=== PATIENT | male | born 1945 | race Caucasian/White ===

== ENCOUNTER 2020-08-19 08:47 | Day surgery (SDC) | payer BC, SELFPAY ==
[2020-08-13 14:59] VITALS: BMI 33.7
--- NOTE | 2020-08-16 09:30 | HO.ANESPROP2 ---
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 PMFSH Past Medical History Medical History Diabetes Diabetic retinopathy Partial nontraumatic amputation of right foot Peripheral neuropathy Pulmonary sarcoidosis PVD (peripheral vascular disease) Renal stones Skin cancer Spherocytosis Spinal stenosis Surgical History Surgical History H/O right hemicolectomy History of surgical removal of pilonidal cyst History of tonsillectomy and adenoidectomy Hx of cholecystectomy Hx of colonoscopy Hx of splenectomy Status post laser lithotripsy of ureteral calculus Social History Social History Are you a primary career information specialist to a significant other at home: No Do you presently have visiting nurse or other home services: No Smoking Status: Never smoker Second Hand Smoke Exposure: No Use of substances other than those prescribed or required for medical reasons: No Advance Directives: No Advance Directives Information Provided: No Advance Directives on File: No Recently lost weight without trying: No Meds Allergies Allergy/AdvReac Type Severity Reaction Status Date / Time penicillamine Allergy Unknown unknown Verified 08/02/20 13:52 Home Medications Medication Instructions Recorded Confirmed Type multivitamin 1 tab PO DAILY 08/02/20 08/13/20 History vitamin B complex 1 tab PO DAILY 08/02/20 08/13/20 History cholecalciferol (vitamin D3) 50 mcg PO DAILY 08/13/20 08/13/20 History [Vitamin D3] insulin NPH isoph U-100 human 25 unit SUBCUT BID 08/13/20 08/13/20 History [Humulin N NPH U-100 Insulin] lidocaine 1 patch TOPICAL DAILY 08/13/20 08/13/20 History magnesium 250 mg PO DAILY 08/13/20 08/13/20 History vitamin A 10,000 unit PO DAILY 08/13/20 08/13/20 History zinc 50 mg PO DAILY 08/13/20 08/13/20 History Exam Exam Date and Time: August 16, 2020 0930 Height,Weight and Vital Signs: Height 5 ft 11 in Weight 109.769 kg Pertinent Lab Results Pertinent Lab Results: Laboratory Tests 03/21/20 03/21/20 11:41 11:41 WBC 11.4 H Hgb 14.3 Hct 41.2 L Plt Count 541 H Sodium 138 Potassium 4.6 Chloride 102 BUN 36 H D Creatinine 1.47 H Narrative Narrative: Carotid US 2018: No hemodynamically significant Carotid Stenosis bilat (0-49%) Assessment and Plan Assessment Anesthesia Assessment: Chart Reviewed Documented by User: Antonio Arcos 08/19/20 09:35 [facility] Past Medical History Medical History Diabetes Diabetic retinopathy Partial nontraumatic amputation of right foot Peripheral neuropathy Pulmonary sarcoidosis PVD (peripheral vascular disease) Renal stones Skin cancer Spherocytosis Spinal stenosis Surgical History Surgical History H/O right hemicolectomy History of surgical removal of pilonidal cyst History of tonsillectomy and adenoidectomy Hx of cholecystectomy Hx of colonoscopy Hx of splenectomy Status post laser lithotripsy of ureteral calculus Social History Social History Are you a primary career information specialist to a significant other at home: No Do you presently have visiting nurse or other home services: No Smoking Status: Never smoker Second Hand Smoke Exposure: No Use of substances other than those prescribed or required for medical reasons: No Advance Directives: No Advance Directives Information Provided: No Advance Directives on File: No Recently lost weight without trying: No Meds Allergies Allergy/AdvReac Type Severity Reaction Status Date / Time penicillamine Allergy Unknown unknown Verified 08/02/20 13:52 Home Medications Medication Instructions Recorded Confirmed Type multivitamin 1 tab PO DAILY 08/02/20 08/13/20 History vitamin B complex 1 tab PO DAILY 08/02/20 08/13/20 History cholecalciferol (vitamin D3) 50 mcg PO DAILY 08/13/20 08/13/20 History [Vitamin D3] insulin NPH isoph U-100 human 25 unit SUBCUT BID 08/13/20 08/13/20 History [Humulin N NPH U-100 Insulin] lidocaine 1 patch TOPICAL DAILY 08/13/20 08/13/20 History magnesium 250 mg PO DAILY 08/13/20 08/13/20 History vitamin A 10,000 unit PO DAILY 08/13/20 08/13/20 History zinc 50 mg PO DAILY 08/13/20 08/13/20 History Exam Airway Mallampati Class: II TM Dist: >3cm Neck ROM: Full Loose/Missing/Broken Teeth: No Heart: [id number] Lungs: cta b/l Assessment and Plan Assessment Anesthesia Assessment: Anesthesia Plan Discussed, Smoking Cess. Discussed and PAT Visit Final Anesthetic Review NPO: Yes ASA Class: III Final Preanesthetic Review: No Changes in Pt Med Stat, Meds/Allgs Chart Reviewed, Consent Obtained/Reviewed and Anes Risks/Benef Reviewed Patient Risk: Intermediate Procedure Risk: Low Assessment/Block/Sedation in SS: Assess/Block/Sedation-SS Anesthetic Plan Anesthetic Plan: MAC: Disposition: Standard PACU
[2020-08-19 09:32] VITALS: BP 112/58; PULSE 84; RESP 18; TEMP 36.6; O2SAT 99
[2020-08-19 09:33] LABS: Glucose, Whole Blood 148 mg/dL (60-115)
[2020-08-19 10:35] VITALS: BP 95/57; PULSE 84; RESP 14; TEMP 36.5; O2SAT 97
--- NOTE | 2020-08-19 10:41 | PM.OP ---
Brief Operative Note Date of procedure: 08/19/20 Pre-op diagnosis: Screening Post-op diagnosis: other (Diverticulosis, Normal anastomosis, Internal hemorrhoids, Limited prep in Left colon) Procedure: Colonoscopy to anastomosis and small bowel Surgeon: Ernesto Wu Anesthesia: MAC Estimated blood loss (mL): 0 Pathology: none sent Condition: stable Disposition: PACU
[2020-08-19 10:52] VITALS: BP 110/62; PULSE 93; RESP 16; O2SAT 97
--- NOTE | 2020-08-19 10:57 | OP_ITS ---
SURGEON: Ernesto Wu MD INDICATIONS: The patient presents for followup of personal history of colon cancer. Full consent has been obtained from him for this, including risks of bleeding and perforation. PREOPERATIVE DIAGNOSIS: POSTOPERATIVE DIAGNOSIS: PROCEDURE PERFORMED: Colonoscopy to the anastomosis and small bowel. ESTIMATED BLOOD LOSS: COMPLICATIONS: ANESTHESIA: Monitored anesthesia care. ASSISTANTS: SPECIMENS: PREOPERATIVE DIAGNOSES: Personal history of colon cancer, personal history of tubular adenoma of the colon, and colorectal cancer screening. POSTOPERATIVE DIAGNOSES: Personal history of colon cancer, personal history of tubular adenoma of the colon, and colorectal cancer screening, sigmoid diverticulosis, internal hemorrhoids. DESCRIPTION OF PROCEDURE: The patient was placed in the left lateral decubitus position. The digital rectal exam revealed no abnormalities. The Olympus video pediatric colonoscope was entered into the rectum and advanced easily to the level of the anastomosis. The anastomosis was visualized and appeared normal. The small bowel was cannulated and appeared normal. The scope was withdrawn back in the colon. The entire area of the anastomosis was well visualized and appeared normal. The scope was then slowly withdrawn assessing all mucosal surfaces. The preparation of the area of the sigmoid colon and rectum was quite limited due to a lot of liquid and some solid stool. More proximal bowel to the level of the anastomosis had a good prep. I did not visualize any polyps, colitis, nor angiodysplasias. There was a mild amount of sigmoid diverticulosis. In the rectum, scope was retroflexed visualizing internal hemorrhoids, but no other pathology, although again, the prep was somewhat limited. The scope was straightened out and withdrawn from the patient. He tolerated the procedure well and was returned to the recovery area in stable condition. IMPRESSION: 1. Sigmoid diverticulosis. 2. Internal hemorrhoids. 3. Somewhat limited prep involving the sigmoid colon and rectum. PLAN: The patient is to have an another colonoscopy within 1 year. At that point, I would recommend a 2-day preparation. In reviewing this colonoscopy report from a year ago, he also had a limited prep in the same portion of the colon. He will otherwise see me in the interim on a p.r.n. basis. MD UDAY Marquez/NICKI / [id number]
[2020-08-19 11:04] VITALS: BP 117/61; PULSE 84; RESP 16; O2SAT 97
--- NOTE | 2020-08-19 11:41 | HO.POSTANES ---
Post Anesthesia Evaluation Post Anesthesia Evaluation Vital Signs: Vital Signs Temp Pulse Resp BP Pulse Ox 08/19/20 11:04 97.7 F 84 16 117/61 97 08/19/20 10:52 93 16 110/62 97 08/19/20 10:35 97.7 F 84 14 95/57 L 97 08/19/20 09:32 97.9 F 84 18 112/58 L 99 Anesthesia: Monitored Mental Status: Awake Pain Control: Satisfactory Nausea/Vomiting: None Hydration: Adequate Anesthesia-Related Issues: No Anes. Related Issues
== END 2020-08-19 11:49 | disposition home or self-care (01) ==
PROVIDERS: PCP Internal Medicine; Visit Provider Internal Medicine
PROC: 0DJD8ZZ Inspection of Lower Intestinal Tract, Via Natural or Artificial Opening Endoscopic (ICD-10-PCS; CPT 45378; principal; 2020-08-19 09:30)
DX: Z12.11 Encounter for screening for malignant neoplasm of colon (principal); Z85.038 Personal history of other malignant neoplasm of large intestine; Z90.49 Acquired absence of other specified parts of digestive tract; Z86.010 Personal history of colon polyps; K57.30 Diverticulosis of large intestine without perforation or abscess without bleeding; K64.8 Other hemorrhoids; E11.319 Type 2 diabetes mellitus with unspecified diabetic retinopathy without macular edema; Z79.4 Long term (current) use of insulin; Z79.899 Other long term (current) drug therapy; Z89.431 Acquired absence of right foot; Z87.39 Personal history of other diseases of the musculoskeletal system and connective tissue; Z90.81 Acquired absence of spleen
CPT/HCPCS: 45378; 82947

== ENCOUNTER 2020-08-21 19:52 | Emergency (ER) | payer BC, SELFPAY ==
[2020-08-21 20:04] VITALS: BP 146/66; PULSE 80; RESP 16; TEMP 36.9; O2SAT 100; BMI 34.0
--- NOTE | 2020-08-21 20:58 | ECG_ITS ---
Test Reason : CHEST PAIN Blood Pressure : / mmHG Vent. Rate : 084 BPM Atrial Rate : 084 BPM P-R Int : 170 ms QRS Dur : 088 ms QT Int : 374 ms P-R-T Axes : 011 -31 022 degrees QTc Int : 441 ms Normal sinus rhythm with sinus arrhythmia Left axis deviation Abnormal ECG No significant changes seen Referred By: Michelle Oviedo Electronically Signed By:IRIS BARRAGAN MD
--- NOTE | 2020-08-21 22:00 | PC.NURSE ---
IV ACCESS ESTABLISHED BY [facility]. 20G IN LEFT HAND.
--- NOTE | 2020-08-21 22:05 | XR_ITS ---
EXAMINATION: XR CHEST CLINICAL INFORMATION: Chest pain COMPARISON: Chest x-ray 10/25/2015 TECHNIQUE: Frontal view of the chest was obtained. 10:24 PM FINDINGS: No significant abnormality is noted involving the heart, lungs, mediastinum, bony thorax or soft tissues. XR/XR chest 1V IMPRESSION: Unremarkable examination.
[2020-08-21 22:15] VITALS: BP 118/63; PULSE 76; RESP 16; O2SAT 99
[2020-08-21 22:18] LABS: Hematocrit 38.3 % (42-52); Hemoglobin 13.7 g/dl (14.0-18.0); Mean Corpuscular HGB Conc 35.8 g/dl (31.0-36.0); Mean Corpuscular Hemoglobin 31.1 pg (27.0-33.0); Mean Corpuscular Volume 86.8 fL (80-98); Mean Platelet Volume 10.2 fL (9.4-12.4); Platelet Count 391 X10*3/uL (160-400); Red Blood Count 4.41 X10*6/uL (4.60-5.80); Red Cell Distribution Width 12.6 % (11.0-16.0)
[2020-08-21 22:19] LABS: WBC ABN SCTR FOR CBC 1
--- NOTE | 2020-08-21 22:38 | CT_ITS ---
EXAMINATION: CT CHEST WITHOUT CONTRAST CLINICAL INFORMATION: Sarcoidosis. Concern for fracture after a fall COMPARISON: CT chest 03/21/2020. Chest x-ray today TECHNIQUE: Multidetector volumetric CT imaging of the chest was done. Axial MIP volume rendering provided. Sagittal and coronal reformatted images were obtained. This CT examination was performed using dose optimization techniques as appropriate, variously including the following: *Automated exposure control *Adjustment of mA and/or kV according to patient size (this includes techniques or standardized protocols for targeted exams where dose is matched to indication/reason for exam; i.e. extremities or head) *Use of iterative reconstruction technique DLP: 304 mGy-cm FINDINGS: LUNGS: Linear parenchymal scarring/atelectasis at lung bases. No acute airspace opacities. No bronchiectasis. The central bronchial airways are open. Lung nodules: 1. Stable 4 mm subpleural lung right middle lobe axial image 343 series 6. No new lung nodules. MEDIASTINUM: No mediastinal mass or significant lymphadenopathy. There are small subcentimeter lymph nodes in the pretracheal retrovascular space and subcarina. The heart size is normal. No pericardial effusion. Large volume of coronary artery calcifications. No aneurysm of aorta. Small volume of calcifications of thoracic aorta. PLEURA: There is no pleural effusion. No pleural mass or thickening. AXILLA: No lymphadenopathy. UPPER ABDOMEN: Status post splenectomy. Surgical clips left upper quadrant of abdomen. Status post cholecystectomy. 3 mm nonobstructive stone upper pole left kidney. OSSEOUS STRUCTURES: No rib fracture. No acute osseous abnormality. Stable mild loss of height of the T11 and T12 vertebrae is unchanged since prior study. CT/CT chest wo con IMPRESSION: 1. No acute abnormality of chest. No rib fracture or other acute osseous abnormality. 2. Linear scarring/atelectasis at lung bases. 3. No significant lymphadenopathy in the mediastinum.
[2020-08-21 22:48] LABS: Acanthocytes 2+; Band Neutrophils Percent 2 % (3-5); Basophils Percent Manual 2 % (0-1); Eosinophils Percent Manual 3 % (0-4); Lymphocytes Percent Manual 33 % (20-40); Monocytes Percent Manual 17 % (2-11); Neutrophils Percent Manual 43 % (45-73)
[2020-08-21 22:49] LABS: Basophils Abs Manual 0.2 X10*3/uL (0.0-0.3); Eosinophils Absolute Manual 0.3 X10*3/UL (0.0-0.8); Lymphocytes Absolute Manual 3.5 X10*3/uL (0.6-4.8); Monocytes Absolute Manual 1.8 X10*3/uL (0.0-1.2); Neutrophils Absolute Manual 4.8 X10*3/uL (2.2-7.9); Platelet Estimate NORMAL (NORMAL); Platelet Morphology Comment NORMAL; RBC Morphology NORMAL; White Blood Count 10.6 X10*3/uL (4.8-10.8)
[2020-08-21 23:07] LABS: Anion Gap 18 (12-20); Blood Urea Nitrogen 23 mg/dL (9-16); Carbon Dioxide 22 mmol/L (22-29); Chloride 104 mmol/L (96-108); Creatinine Clr Calc Pharmacy 47.1; Estimated Glomerular Filt Rate 39; Glucose Random 72 mg/dL (60-115); Magnesium 2.3 mg/dL (1.6-2.6); Potassium 4.5 mmol/l (3.3-5.1); Sodium 139 mmol/L (135-145)
[2020-08-21 23:08] LABS: Troponin-I High Sensitivity 9.4 ng/L (<3.5-35.0)
--- NOTE | 2020-08-21 23:29 | ED.CHESTPAIN ---
HPI - Chest Pain General Chief Complaint: Chest Pain Stated Complaint: chest pain Time Seen by Provider: 08/21/20 22:38 Source: patient Mode of arrival: ambulatory Limitations: no limitations History of Present Illness HPI narrative: 75-year-old male presents with past medical history of sarcoidosis, renal colic, peripheral vascular disease, spherocytosis, diabetes, diabetic neuropathy, and retinopathy with status post cholecystectomy and splenectomy presents with a constant chest pressure that started at 4:00 a.m. this morning. This pressure is substernal and more on the left-hand side and has not alleviated throughout the day. He does report falling a few days ago after losing his balance and heading the left side of his chest and back on a hard object. He does not report losing consciousness or hitting his head, he does not report any sharp stabbing pain, palpitations, shortness breath, abdominal pain, abdominal distention, dysuria, hematuria, changes in vision and edema. MD complaint: chest pain and chest discomfort Onset (ago): hour(s) ( Onset at 4:00 a.m.) Timing of current episode: constant Prior episodes: No Onset: during rest and awoke with symptoms Pain location: substernal and left chest Pain radiation: none Severity: moderate Pain scale (0-10): 4 Quality: aching Relieving factors: nothing Context: trauma/injury Treatment prior to arrival: none Risk Factors Coronary artery disease risk factors: diabetes Thoracic aortic dissection risk factors: none Related Data Home Medications Medication Instructions Recorded Confirmed multivitamin 1 tab PO DAILY 08/02/20 08/13/20 vitamin B complex 1 tab PO DAILY 08/02/20 08/13/20 cholecalciferol (vitamin D3) 50 mcg PO DAILY 08/13/20 08/13/20 [Vitamin D3] insulin NPH isoph U-100 human 25 unit SUBCUT BID 08/13/20 08/13/20 [Humulin N NPH U-100 Insulin] lidocaine 1 patch TOPICAL DAILY 08/13/20 08/13/20 magnesium 250 mg PO DAILY 08/13/20 08/13/20 vitamin A 10,000 unit PO DAILY 08/13/20 08/13/20 zinc 50 mg PO DAILY 08/13/20 08/13/20 Previous Rx's Medication Instructions Recorded ibuprofen 600 mg tablet 600 mg PO TID #21 tab 08/02/20 Allergies Allergy/AdvReac Type Severity Reaction Status Date / Time penicillamine Allergy Unknown unknown Verified 08/02/20 13:52 Review of Systems Review of Systems: Constitutional: No Weight loss, No Fever, No Chills, No Night Sweats, No Fatigue, No Malaise ENT/Mouth: No Hearing loss, No Ear Pain, No Nasal Congestion, No Sinus Pain, No Hoarseness, No sore throat, No Rhinorrhea, No Swallowing Difficulty Eyes: No Eye Pain, No Swelling, No Redness, No Foreign Body, No Discharge, No Vision Changes Cardiovascular: pos Chest Pain, no SOB, no Dyspnea on Exertion, No Orthopnea, No Edema, No Palpitations Respiratory: No Cough, No Sputum, No Wheezing, No Smoke Exposure, No Dyspnea Gastrointestinal: no Nausea, No Vomiting, No Diarrhea, No abdominal Pain, No Hematochezia, No Melena Genitourinary: No irregular bleeding, No Dysuria, No Urinary Frequency, No Hematuria, No Urinary Incontinence, No Urgency, No Flank Pain, No Urinary Flow Changes, No Hesitancy Musculoskeletal: No joint pain, No Myalgias, No Joint Swelling Skin: No Skin Lesions, No rash Neuro: No Weakness, No Numbness, No Paresthesias, No Loss of Consciousness, No Dizziness, No Headache Psych: No Anxiety/Panic, No Depression, No SI/HI/AH/VH Heme/Lymph: No Bruising, No Bleeding,No Lymphadenopathy Endocrine: No Polyuria, No Polydipsia, No Temperature Intolerance [facility] Past Medical History Attestation statement: The following information was validated with the patient. Medical History Diabetes Diabetic retinopathy Partial nontraumatic amputation of right foot Peripheral neuropathy Pulmonary sarcoidosis PVD (peripheral vascular disease) Renal stones Skin cancer Spherocytosis Spinal stenosis Surgical History H/O right hemicolectomy History of surgical removal of pilonidal cyst History of tonsillectomy and adenoidectomy Hx of cholecystectomy Hx of colonoscopy Hx of splenectomy Status post laser lithotripsy of ureteral calculus Social History Social History Smoking Status: Never smoker Second Hand Smoke Exposure: No Advance Directives: No Advance Directives Information Provided: Yes Physical Exam Vital Signs: Vital Signs: Last Vital Signs Temp 98.4 F 08/21/20 20:04 Pulse 80 08/21/20 20:04 Resp 16 08/21/20 20:04 BP 146/66 H 08/21/20 20:04 Pulse Ox 100 08/21/20 20:04 Body Mass Index 34.0 Appearance: Alert. Oriented X3. No acute distress. Eyes: Pupils equal, round and reactive to light. ENT: Pharynx normal. Neck: Normal inspection. Neck supple. CVS: Normal heart rate and rhythm. Pulses normal. Respiratory: No respiratory distress. Breath sounds normal. Abdomen: Soft and nontender. Skin: Skin warm and dry. Normal skin color. Normal skin turgor. Extremities: No lower extremity edema. wears a brace of the right lower extremity per baseline Neuro: No motor deficit. No sensory deficit. Course Course Course Narrative: 75-year-old male past medical history of diabetes, diabetic neuropathy, retinopathy, renal colic, peripheral vascular disease, spherocytosis, status post cholecystectomy and splenectomy presents with chest pain. We will rule out ACS, pneumothorax, pneumonia, rib fracture. CT scan of the chest is negative for acute findings, troponin 9.4, we will repeat 2nd troponin in 3 hours. EKG is normal sinus rhythm with sinus arrhythmia with left axis deviation at 84 beats per minute, labs indicate BUN of 23 and creatinine 1.74, patient does have a history of kidney disease and states these lab values are somewhat normal for him. We will resuscitate with 1 L of fluid. Repeat troponin is 5.5, ACS is highly unlikely at this time. Patient not have any symptoms indicating toxicity, is alert oriented x4, and questions politely and appropriately, cranial nerves 2-12 intact, no focal neural deficits. Plan of care is to discharge home with follow-up with primary care provider. Patient verbalized understanding of and agrees plan of care discharge home. MDM - Chest Pain Differential Diagnosis Differential diagnosis: Likely fracture of rib, pneumothorax, stable angina, unstable angina pectoris, atypical chest pain, st elevation myocardial infarction, costochondritis, chest pain and biliary colic Medical Records Data Attestation: I reviewed the patient's medical records. Lab Data Attestation: I reviewed the patient's lab results. Result diagrams: 08/21/20 22:12 08/21/20 22:12 Labs: Lab Results 08/21/20 08/21/20 08/21/20 Range/Units 22:12 22:12 22:12 WBC 10.6 (4.8-10.8) X10*3/uL RBC 4.41 L (4.60-5.80) X10*6/uL Hgb 13.7 L (14.0-18.0) g/dl Hct 38.3 L (42-52) % MCV 86.8 (80-98) fL MCH 31.1 (27.0-33.0) pg MCHC 35.8 (31.0-36.0) g/dl RDW 12.6 (11.0-16.0) % Plt Count 391 (160-400) X10*3/uL MPV 10.2 (9.4-12.4) fL Immature Gran % (Auto) Cancelled Neut % (Auto) Cancelled Lymph % (Auto) Cancelled [place] % (Auto) Cancelled Eos % (Auto) Cancelled Baso % (Auto) Cancelled Lymph # (Auto) Cancelled [place] # (Auto) Cancelled Eos # (Auto) Cancelled Baso # (Auto) Cancelled Abs Immat Gran (auto) Cancelled Absolute Neuts (auto) Cancelled Absolute Nucleated RBC 0.000 (0.0-0.012) X10*3/uL Nucleated RBC % (auto) 0.0 (0.0-0.2) /100WBC Neutrophils % (Manual) 43 L (45-73) % Band Neutrophils % 2 L (3-5) % Lymphocytes % (Manual) 33 (20-40) % Monocytes % (Manual) 17 H (2-11) % Eosinophils % (Manual) 3 (0-4) % Basophils % (Manual) 2 H (0-1) % Abs Neuts (Manual) 4.8 (2.2-7.9) X10*3/uL Lymphocytes # (Manual) 3.5 (0.6-4.8) X10*3/uL Monocytes # (Manual) 1.8 H (0.0-1.2) X10*3/uL Eosinophils # (Manual) 0.3 (0.0-0.8) X10*3/UL Basophils # (Manual) 0.2 (0.0-0.3) X10*3/uL Platelet Estimate NORMAL (NORMAL) Plt Morphology Comment NORMAL RBC Morphology NORMAL Acanthocytes (Spur) 2+ Hold Blue Top SEE NOTE Sodium 139 (135-145) mmol/L Potassium 4.5 (3.3-5.1) mmol/l Chloride 104 (96-108) mmol/L Carbon Dioxide 22 (22-29) mmol/L Anion Gap 18 (12-20) BUN 23 H (9-16) mg/dL Creatinine 1.74 H (0.5-1.4) mg/dL Estim Creat Clear Calc 47.1 Estimated GFR 39 Random Glucose 72 (60-115) mg/dL Calcium 9.0 (8.4-10.2) mg/dL Magnesium 2.3 (1.6-2.6) mg/dL Troponin I High Sens (<3.5-35.0) ng/L 08/21/20 Range/Units 22:12 WBC (4.8-10.8) X10*3/uL RBC (4.60-5.80) X10*6/uL Hgb (14.0-18.0) g/dl Hct (42-52) % MCV (80-98) fL MCH (27.0-33.0) pg MCHC (31.0-36.0) g/dl RDW (11.0-16.0) % Plt Count (160-400) X10*3/uL MPV (9.4-12.4) fL Immature Gran % (Auto) Neut % (Auto) Lymph % (Auto) [place] % (Auto) Eos % (Auto) Baso % (Auto) Lymph # (Auto) [place] # (Auto) Eos # (Auto) Baso # (Auto) Abs Immat Gran (auto) Absolute Neuts (auto) Absolute Nucleated RBC (0.0-0.012) X10*3/uL Nucleated RBC % (auto) (0.0-0.2) /100WBC Neutrophils % (Manual) (45-73) % Band Neutrophils % (3-5) % Lymphocytes % (Manual) (20-40) % Monocytes % (Manual) (2-11) % Eosinophils % (Manual) (0-4) % Basophils % (Manual) (0-1) % Abs Neuts (Manual) (2.2-7.9) X10*3/uL Lymphocytes # (Manual) (0.6-4.8) X10*3/uL Monocytes # (Manual) (0.0-1.2) X10*3/uL Eosinophils # (Manual) (0.0-0.8) X10*3/UL Basophils # (Manual) (0.0-0.3) X10*3/uL Platelet Estimate (NORMAL) Plt Morphology Comment RBC Morphology Acanthocytes (Spur) Hold Blue Top Sodium (135-145) mmol/L Potassium (3.3-5.1) mmol/l Chloride (96-108) mmol/L Carbon Dioxide (22-29) mmol/L Anion Gap (12-20) BUN (9-16) mg/dL Creatinine (0.5-1.4) mg/dL Estim Creat Clear Calc Estimated GFR Random Glucose (60-115) mg/dL Calcium (8.4-10.2) mg/dL Magnesium (1.6-2.6) mg/dL Troponin I High Sens 9.4 (<3.5-35.0) ng/L Imaging Data CT scan - chest: Attestation: I personally reviewed and interpreted this imaging study as follows: Radiologist's impression: CT CHEST WITHOUT CONTRAST CLINICAL INFORMATION: Sarcoidosis. Concern for fracture after a fall COMPARISON: CT chest 03/21/2020. Chest x-ray today TECHNIQUE: Multidetector volumetric CT imaging of the chest was done. Axial MIP volume rendering provided. Sagittal and coronal reformatted images were obtained. This CT examination was performed using dose optimization techniques as appropriate, variously including the following: *Automated exposure control *Adjustment of mA and/or kV according to patient size (this includes techniques or standardized protocols for targeted exams where dose is matched to indication/reason for exam; i.e. extremities or head) *Use of iterative reconstruction technique DLP: 304 mGy-cm FINDINGS: LUNGS: Linear parenchymal scarring/atelectasis at lung bases. No acute airspace opacities. No bronchiectasis. The central bronchial airways are open. Lung nodules: 1. Stable 4 mm subpleural lung right middle lobe axial image 343 series 6. No new lung nodules. MEDIASTINUM: No mediastinal mass or significant lymphadenopathy. There are small subcentimeter lymph nodes in the pretracheal retrovascular space and subcarina. The heart size is normal. No pericardial effusion. Large volume of coronary artery calcifications. No aneurysm of aorta. Small volume of calcifications of thoracic aorta. PLEURA: There is no pleural effusion. No pleural mass or thickening. AXILLA: No lymphadenopathy. UPPER ABDOMEN: Status post splenectomy. Surgical clips left upper quadrant of abdomen. Status post cholecystectomy. 3 mm nonobstructive stone upper pole left kidney. OSSEOUS STRUCTURES: No rib fracture. No acute osseous abnormality. Stable mild loss of height of the T11 and T12 vertebrae is unchanged since prior study. CT/CT chest wo con IMPRESSION: 1. No acute abnormality of chest. No rib fracture or other acute osseous abnormality. 2. Linear scarring/atelectasis at lung bases. 3. No significant lymphadenopathy in the mediastinum. ECG Data ECG #1: Attestation: I personally reviewed and interpreted this ECG as follows: ECG interpretation date: 08/21/20 ECG interpretation time: 20:58 Prior ECG tracings: available for review Interpretation: Ventricular rate 84 beats per minute, p.r. interval 170, QRS 88, QT 374, QTC 441, normal sinus rhythm with sinus arrhythmia, left axis deviation no significant changes noted when compared prior EKGs. Scores Heart Score History: -0- slightly suspicious ECG: -0- normal Age: -2- > or = 65 Risk factory: -1- 1 or 2 risk factors Troponin: -0- < or = normal limit Score: 3 Risk: 1.7% Discharge Plan Discharge Clinical Impression: Atypical chest pain Kidney disease, chronic, stage III (GFR 30-59 ml/min) Qualifiers: Chronic kidney disease stage 3 subtype: stage 3b (GFR 30-44) Qualified Code(s): N18.32 - Chronic kidney disease, stage 3b Patient Disposition: Home, Self-Care Instructions: Chest Pain (ED), Chronic Kidney Disease (ED), Diabetic Kidney Disease (ED), Chest Wall Pain (ED) Additional Instructions: you were evaluated for chest pain, CT scan of the chest is negative for acute findings, there are chronic findings of a nodule that has not changed in size or consistency since prior exams. Labs indicate stage 3 kidney disease at your baseline. Troponins improved during the duration of your emergency department stay, 1st troponin was 9.4, 2nd troponin was 5.5. EKG shows normal sinus rhythm with sinus arrhythmia, EKG has not changed since September of 2019. Please continue to follow-up with Urology, Nephrology and primary care physician as scheduled. Thank you for choosing this emergency department for evaluation. Please follow-up with primary care physician as needed. Return to the emergency department for any new, concerning, or worsening symptoms. Prescriptions: No Action vitamin A 10,000 unit Capsule 10,000 unit PO DAILY RF: 0 lidocaine 5 % adhesive patch,medicated 1 patch topical DAILY RF: 0 Humulin N NPH U-100 Insulin 100 unit/mL suspension 25 unit subcut BID RF: 0 magnesium 250 mg Tablet 250 mg PO DAILY RF: 0 zinc 50 mg Capsule 50 mg PO DAILY RF: 0 cholecalciferol (vitamin D3) [Vitamin D3] 50 mcg (2,000 unit) Capsule 50 mcg PO DAILY RF: 0 multivitamin [Daily Multi-Vitamin] Tablet 1 tab PO DAILY RF: 0 vitamin B complex [B Complex-Vitamin B12] Tablet 1 tab PO DAILY RF: 0 ibuprofen 600 mg tablet 600 mg PO TID Qty: 21 RF: 0
[2020-08-21] MEDS: 0.9 % Sodium Chloride 1,000 ML 999 ML IVCONT (23:44)
[2020-08-22 01:00] VITALS: BP 120/53; PULSE 76; RESP 16; O2SAT 98
[2020-08-22 01:42] LABS: Troponin-I High Sensitivity 5.5 ng/L (<3.5-35.0)
[2020-08-22 01:59] VITALS: BP 115/49; PULSE 71; RESP 16; O2SAT 98
[2020-08-22 02:29] VITALS: BP 114/60; PULSE 73; RESP 16; O2SAT 99
== END 2020-08-22 02:57 | disposition home or self-care (01) ==
PROVIDERS: Emergency Medicine; Nurse Practitioner Family; Emergency Provider Emergency Medicine Emergency Medical Services; PCP Internal Medicine
DX: R07.89 Other chest pain (principal); N18.32 Chronic kidney disease, stage 3b; Z79.899 Other long term (current) drug therapy
CPT/HCPCS: 36415; 71045; 71250; 80048; 83735; 84484; 85007; 85027; 93005; 96360; 99284

== ENCOUNTER → 2020-09-25 16:12 | Outpatient (BNVA) | payer BC, SELFPAY | PROVIDERS: PCP Internal Medicine; Referring Provider Internal Medicine; Visit Provider Surgery | DX: Z76.89 Persons encountering health services in other specified circumstances (principal) ==

== ENCOUNTER 2020-10-02 14:07 | Outpatient (RCR) | payer BC, SELFPAY | END 2020-10-18 15:57 | disposition home or self-care (01) | LOC: HO.WCC 14:07 | PROVIDERS: Visit Provider Surgery | DX: E11.622 Type 2 diabetes mellitus with other skin ulcer (principal); L97.311 Non-pressure chronic ulcer of right ankle limited to breakdown of skin; Z89.421 Acquired absence of other right toe(s) | CPT/HCPCS: 99212; 99213 ==

== ENCOUNTER → 2020-10-14 16:01 | Outpatient (BNV) | payer BC, SELFPAY | PROVIDERS: PCP Nurse Practitioner Family; Visit Provider Internal Medicine Medical Oncology | DX: C18.9 Malignant neoplasm of colon, unspecified (principal) | CPT/HCPCS: 99213; 99214 ==

== ENCOUNTER 2020-10-23 12:00 | Outpatient (REF) | payer BC, SELFPAY | END 2020-10-23 12:01 | disposition home or self-care (01) | LOC: HO.HMGCLDS 12:00 | PROVIDERS: PCP Nurse Practitioner Family; Visit Provider Nurse Practitioner Family | DX: T83.512A Infection and inflammatory reaction due to nephrostomy catheter, initial encounter (principal); N39.0 Urinary tract infection, site not specified | CPT/HCPCS: 87086 ==

== ENCOUNTER 2020-10-23 16:46 | Emergency (ER) | payer BC, SELFPAY ==
[2020-10-23 17:17] VITALS: BP 164/87; PULSE 90; RESP 18; TEMP 36.8; O2SAT 100
[2020-10-23 17:21] VITALS: BP 164/87; PULSE 93; RESP 19; TEMP 36.8; O2SAT 100; BMI 34.0
--- NOTE | 2020-10-23 17:39 | ED_ITS ---
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 He was recently treated for UTI and started Bactrim 5 days ago. He feels that he may have eaten something questionable. He denies chest pain and pressure, palpitations, shortness of breath, abdominal pain and distention, hematuria, loss of balance, dizziness, lightheadedness, anorexia, weight loss, and edema. MD Complaint: other (Weakness, chills) Onset (ago): hour(s) (Several hours prior to arrival) Duration: now resolved Severity: moderate Severity scale (1-10): 6 Context: new medication Associated symptoms: Reports denies other symptoms Related Data Sexually active: No Home Medications Medication Instructions Recorded Confirmed multivitamin 1 tab PO DAILY 08/02/20 09/17/20 cholecalciferol (vitamin D3) 100 mcg PO DAILY 08/13/20 09/27/20 [Vitamin D3] insulin NPH isoph U-100 human 25 unit SUBCUT BID 08/13/20 09/27/20 [Humulin N NPH U-100 Insulin] zinc 50 mg PO DAILY 08/13/20 09/17/20 Vitamin C 10/14/20 10/14/20 melatonin 3 mg PO BEDTIME 10/14/20 10/14/20 vitamin B complex [B Complex] 1 cap PO DAILY 10/14/20 10/14/20 Previous Rx's Medication Instructions Recorded insulin syringe-needle U-100 1 mL #100 ea 10/10/20 30 gauge x 1/2 sulfamethoxazole 800 1 tab PO Q12H 10 Days #20 tab 10/15/20 mg-trimethoprim 160 mg tablet levofloxacin 750 mg PO DAILY #6 tab 10/23/20 Allergies Allergy/AdvReac Type Severity Reaction Status Date / Time No Known Allergies Allergy Verified 10/14/20 16:16 Review of Systems Review of Systems: Constitutional: No Fever, positive Chills, positive weakness ENT/Mouth: No sore throat Eyes: No Eye Pain, No Swelling, No Redness Cardiovascular: No Chest Pain, No SOB Respiratory: No Cough, No Sputum, No Wheezing Gastrointestinal: positive Nausea, no Vomiting, No Diarrhea, no abdominal pain Genitourinary: Positive percutaneous nephrostomy tube to the right flank, No Dysuria, no urinary frequency, no Hematuria, positive Flank Pain, no hesitancy Musculoskeletal: No joint pain, No Myalgias Skin: No Skin Lesions, No rash Neuro: Positive Weakness, No Numbness, No Headache Psych: No Anxiety/Panic, No Depression Heme/Lymph: No Bruising, No Lymphadenopathy Endocrine: No Polyuria, No Polydipsia Yes all other systems are reviewed and are negative [facility] Past Medical History Attestation statement: The following information was validated with the patient. Medical History Cholecystectomy planned CKD (chronic kidney disease) Diabetes Diabetic retinopathy History of colon cancer Osteoarthritis Partial nontraumatic amputation of right foot Peripheral neuropathy Pulmonary sarcoidosis PVD (peripheral vascular disease) Renal stones Sarcoidosis Skin cancer Spherocytosis Spinal stenosis Surgical History H/O right hemicolectomy History of surgical removal of pilonidal cyst History of tonsillectomy and adenoidectomy Hx of cholecystectomy Hx of colonoscopy Hx of splenectomy Status post laser lithotripsy of ureteral calculus Social History Social History Alcohol intake: never Smoking Status: Never smoker Smoked in Last 30 Days: No Second Hand Smoke Exposure: No Use of substances other than those prescribed or required for medical reasons: No Advance Directives: No Advance Directives Information Provided: Yes Physical Exam Vital Signs: Vital Signs: Last Vital Signs Temp 98.2 F 10/23/20 17: Pulse 93 10/23/20 17:21 Resp 19 10/23/20 17: BP 164/87 H 10/23/20 17: Pulse Ox 100 10/23/20 17:21 Body Mass Index 34.0 Appearance: Alert. Oriented X3. No acute distress. Head: Normal external exam. Normocephalic. Atraumatic. Eyes: PERRLA. EOMI. Conjunctiva and sclera normal. Eyelids normal. ENT: TM's Normal. Pharynx normal. Uvula midline. Moist mucous membranes. No trismus noted. No drooling noted. No muffled voice noted. Neck: Normal inspection. Neck supple. No adenopathy. No meningeal signs. CVS: Normal heart rate and rhythm. Heart sound normal. No murmurs noted. Pulses equal to all extremities. Respiratory: No respiratory distress. Painless inspiration. Breath sounds normal. No wheezes/rales/rhonchi noted. Chest nontender. No accessory muscle usage noted or decreased air movement noted. Abdomen: Soft and nontender. Bowel sounds normal in all 4 quadrants. No distention noted. No organomegaly noted. No visible injury noted. Back: No CVA tenderness. Percutaneous nephrostomy tube to the right flank, no erythema or drainage noted, nontender to palpation. Full range of motion noted. Skin: Skin warm and dry. Normal skin color. Normal skin turgor. No rashes/lesions/lacerations noted. Extremities: No lower extremity edema. Extremities exhibit normal range of motion. Extremities nontender. Right lower extremity in a brace secondary to partial foot amputation. Neuro: cranial nerves 2-12 intact, no focal neural deficits, strength 5/5 to all extremities, No motor deficit. No sensory deficit. NIH Stroke Scale Level of Consciousness: Alert Level of Consciousness Questions: Answers both questions correctly Level of Consciousness Commands: Performs both tasks correctly Best Gaze: Normal Visual: No visual loss Facial Palsy: Normal Motor Arm (Right): No drift Motor Arm (Left): No drift Motor Leg (Right): No drift Motor Leg (Left): No drift Limb Ataxia: Absent Sensory: Normal Best Language: No aphasia Dysarthia: Normal Extinction and Inattention: No abnormality Score: 0 Course Course Course Narrative: 75-year-old male presents with weakness and chills. Has been on Bactrim DS for 5 days for UTI. He does have a right flank percutaneous nephrostomy tube. Plan of care is to rule out sepsis, ACS, acute abdomen. NIH stroke scale negative. CBC indicates H&H 13.9/31.9, which is patient's baseline, BUN mildly elevated at 19, creatinine 1.41 he does have chronic kidney disease, glucose 129 he is diabetic and will take his medications once he gets home. CT scan negative for acute findings, shows chronic surgical changes. COVID, influenza and RSV negative. Troponin negative, no changes to EKG from August 2020, normal sinus rhythm with sinus arrhythmia. Highly unlikely that this is ACS. Lactic acid is 1.4, patient is afebrile, white count normal. No other indication of organ dysfunction, sepsis is not indicated at this time. At 9:45 p.m. Urinalysis positive for blood, leukocyte esterase, rbc's, wbc's, and bacteria. While he has been on Bactrim for 5 days feel that this medication may not be susceptible, detailed discussion with patient regarding plan of care to change this medication to Levaquin 750 mg p.o.. Detailed description of discharge instructions with patient, patient verbalized understanding of and agrees to plan of care discharge home. Reevaluation(s) Reevaluation #1: Patient re-evaluated, lactic acid is negative, no indication of sepsis at this time. Time: 19:31 Reevaluation #2: Urinalysis pending. Discussion with RN and Marian Time: 20:31 MDM - Male Genitourinary Differential Diagnosis Differential diagnosis: Likely urinary tract infection, urethritis, epididymitis and prostatitis Medical Records Attestation: I reviewed the patient's medical records. Lab Data Attestation: I reviewed the patient's lab results. Result diagrams: 10/23/20 18:59 10/23/20 18:59 Labs: Lab Results 10/23/20 10/23/20 10/23/20 Range/Units 18:46 18:52 18:59 WBC 8.6 (4.8-10.8) X10*3/uL RBC 4.45 L (4.60-5.80) X10*6/uL Hgb 13.9 L (14.0-18.0) g/dl Hct 39.1 L (42-52) % MCV 87.9 (80-98) fL MCH 31.2 (27.0-33.0) pg MCHC 35.5 (31.0-36.0) g/dl RDW 12.7 (11.0-16.0) % Plt Count 392 (160-400) X10*3/uL MPV 10.3 (9.4-12.4) fL Immature Gran % (Auto) 0.3 (0.0-0.4) % Neut % (Auto) 50.1 (45-73) % Lymph % (Auto) 34.1 (20-40) % [place] % (Auto) 11.0 (2-11) % Eos % (Auto) 3.5 (0-4) % Baso % (Auto) 1.0 (0-2) % Lymph # (Auto) 2.9 (1.2-4.9) X10*3/uL [place] # (Auto) 1.0 (0.1-1.2) X10*3/uL Eos # (Auto) 0.3 (0.0-0.4) X10*3/uL Baso # (Auto) 0.1 (0.0-0.2) X10*3/uL Abs Immat Gran (auto) 0.03 (0.00-0.03) X10*3/uL Absolute Neuts (auto) 4.3 (2.0-8.3) X10*3/uL Absolute Nucleated RBC 0.000 (0.0-0.012) X10*3/uL Nucleated RBC % (auto) 0.0 (0.0-0.2) /100WBC PT (10.8-13.0) SEC INR (0.9-1.1) APTT (24.1-38.0) SEC Sodium (135-145) mmol/L Potassium (3.3-5.1) mmol/l Chloride (96-108) mmol/L Carbon Dioxide (22-29) mmol/L Anion Gap (12-20) BUN (9-16) mg/dL Creatinine (0.5-1.4) mg/dL Estim Creat Clear Calc Estimated GFR POC Glucose 129 H (60-115) mg/dL Random Glucose (60-115) mg/dL Lactic Acid (0.5-2.0) mmol/L Calcium (8.4-10.2) mg/dL Magnesium (1.6-2.6) mg/dL Total Bilirubin (0.0-1.0) mg/dL Direct Bilirubin (0.0-0.5) mg/dL AST (5-37) U/L ALT (0-40) U/L Alkaline Phosphatase (39-117) U/L Troponin I High Sens (<3.5-35.0) ng/L Total Protein (6.5-8.0) g/dL Albumin (3.5-5.0) g/dL Lipase (8-78) U/L Urine Color Urine Appearance Urine pH (5.0-8.0) Ur Specific [place] (1.005-1.025) Urine Protein (NEG-TRACE) MG/DL Urine Glucose (UA) (NEG) MG/DL Urine Ketones (NEG) MG/DL Urine Blood (NEG) Urine Nitrite (NEG) Ur Leukocyte Esterase (NEG) Urine RBC (0) /HPF Urine WBC (0-4) /HPF Ur Squamous Epith Cells /LPF Urine Bacteria /LPF Coronavirus (PCR) NEGATIVE (Negative) Influenza Type A (PCR) NEGATIVE (Negative) Influenza Type B (PCR) NEGATIVE (Negative) RSV RNA Qual (PCR) NEGATIVE (Negative) 10/23/20 10/23/20 10/23/20 Range/Units 18:59 18:59 18:59 WBC (4.8-10.8) X10*3/uL RBC (4.60-5.80) X10*6/uL Hgb (14.0-18.0) g/dl Hct (42-52) % MCV (80-98) fL MCH (27.0-33.0) pg MCHC (31.0-36.0) g/dl RDW (11.0-16.0) % Plt Count (160-400) X10*3/uL MPV (9.4-12.4) fL Immature Gran % (Auto) (0.0-0.4) % Neut % (Auto) (45-73) % Lymph % (Auto) (20-40) % [place] % (Auto) (2-11) % Eos % (Auto) (0-4) % Baso % (Auto) (0-2) % Lymph # (Auto) (1.2-4.9) X10*3/uL [place] # (Auto) (0.1-1.2) X10*3/uL Eos # (Auto) (0.0-0.4) X10*3/uL Baso # (Auto) (0.0-0.2) X10*3/uL Abs Immat Gran (auto) (0.00-0.03) X10*3/uL Absolute Neuts (auto) (2.0-8.3) X10*3/uL Absolute Nucleated RBC (0.0-0.012) X10*3/uL Nucleated RBC % (auto) (0.0-0.2) /100WBC PT 12.8 (10.8-13.0) SEC INR 1.1 (0.9-1.1) APTT 37.9 (24.1-38.0) SEC Sodium 139 (135-145) mmol/L Potassium 4.8 (3.3-5.1) mmol/l Chloride 103 (96-108) mmol/L Carbon Dioxide 28 (22-29) mmol/L Anion Gap 13 (12-20) BUN 19 H (9-16) mg/dL Creatinine 1.41 H (0.5-1.4) mg/dL Estim Creat Clear Calc 58.1 Estimated GFR 49 POC Glucose (60-115) mg/dL Random Glucose 140 H D (60-115) mg/dL Lactic Acid 1.4 (0.5-2.0) mmol/L Calcium 10.1 (8.4-10.2) mg/dL Magnesium 2.2 (1.6-2.6) mg/dL Total Bilirubin 0.9 (0.0-1.0) mg/dL Direct Bilirubin 0.4 (0.0-0.5) mg/dL AST 32 (5-37) U/L ALT 27 (0-40) U/L Alkaline Phosphatase 94 (39-117) U/L Troponin I High Sens (<3.5-35.0) ng/L Total Protein 7.4 (6.5-8.0) g/dL Albumin 4.1 (3.5-5.0) g/dL Lipase 34 (8-78) U/L Urine Color Urine Appearance Urine pH (5.0-8.0) Ur Specific [place] (1.005-1.025) Urine Protein (NEG-TRACE) MG/DL Urine Glucose (UA) (NEG) MG/DL Urine Ketones (NEG) MG/DL Urine Blood (NEG) Urine Nitrite (NEG) Ur Leukocyte Esterase (NEG) Urine RBC (0) /HPF Urine WBC (0-4) /HPF Ur Squamous Epith Cells /LPF Urine Bacteria /LPF Coronavirus (PCR) (Negative) Influenza Type A (PCR) (Negative) Influenza Type B (PCR) (Negative) RSV RNA Qual (PCR) (Negative) 10/23/20 10/23/20 Range/Units 18:59 20:46 WBC (4.8-10.8) X10*3/uL RBC (4.60-5.80) X10*6/uL Hgb (14.0-18.0) g/dl Hct (42-52) % MCV (80-98) fL MCH (27.0-33.0) pg MCHC (31.0-36.0) g/dl RDW (11.0-16.0) % Plt Count (160-400) X10*3/uL MPV (9.4-12.4) fL Immature Gran % (Auto) (0.0-0.4) % Neut % (Auto) (45-73) % Lymph % (Auto) (20-40) % [place] % (Auto) (2-11) % Eos % (Auto) (0-4) % Baso % (Auto) (0-2) % Lymph # (Auto) (1.2-4.9) X10*3/uL [place] # (Auto) (0.1-1.2) X10*3/uL Eos # (Auto) (0.0-0.4) X10*3/uL Baso # (Auto) (0.0-0.2) X10*3/uL Abs Immat Gran (auto) (0.00-0.03) X10*3/uL Absolute Neuts (auto) (2.0-8.3) X10*3/uL Absolute Nucleated RBC (0.0-0.012) X10*3/uL Nucleated RBC % (auto) (0.0-0.2) /100WBC PT (10.8-13.0) SEC INR (0.9-1.1) APTT (24.1-38.0) SEC Sodium (135-145) mmol/L Potassium (3.3-5.1) mmol/l Chloride (96-108) mmol/L Carbon Dioxide (22-29) mmol/L Anion Gap (12-20) BUN (9-16) mg/dL Creatinine (0.5-1.4) mg/dL Estim Creat Clear Calc Estimated GFR POC Glucose (60-115) mg/dL Random Glucose (60-115) mg/dL Lactic Acid (0.5-2.0) mmol/L Calcium (8.4-10.2) mg/dL Magnesium (1.6-2.6) mg/dL Total Bilirubin (0.0-1.0) mg/dL Direct Bilirubin (0.0-0.5) mg/dL AST (5-37) U/L ALT (0-40) U/L Alkaline Phosphatase (39-117) U/L Troponin I High Sens 3.6 (<3.5-35.0) ng/L Total Protein (6.5-8.0) g/dL Albumin (3.5-5.0) g/dL Lipase (8-78) U/L Urine Color YELLOW Urine Appearance CLEAR Urine pH 7.5 (5.0-8.0) Ur Specific [place] 1.015 (1.005-1.025) Urine Protein 1+ H (NEG-TRACE) MG/DL Urine Glucose (UA) NEG (NEG) MG/DL Urine Ketones NEG (NEG) MG/DL Urine Blood 1+ H (NEG) Urine Nitrite NEG (NEG) Ur Leukocyte Esterase 2+ H (NEG) Urine RBC 5-9 H (0) /HPF Urine WBC 30-49 H (0-4) /HPF Ur Squamous Epith Cells 1+ /LPF Urine Bacteria 2+ /LPF Coronavirus (PCR) (Negative) Influenza Type A (PCR) (Negative) Influenza Type B (PCR) (Negative) RSV RNA Qual (PCR) (Negative) Imaging Data CT scan - abdomen: Attestation: I personally reviewed and interpreted this imaging study as follows: Radiologist's impression: EXAMINATION: CT ABDOMEN AND PELVIS WITHOUT CONTRAST CLINICAL INFORMATION: Weakness and chills with right nephrostomy catheter in place. COMPARISON: CT abdomen and pelvis 03/21/2020. TECHNIQUE: Multidetector volumetric imaging was performed from the superior aspect of the liver through the pubic symphysis. Sagittal and coronal reformatted images were obtained on the technologist's workstation. This CT examination was performed using dose optimization techniques as appropriate, variously including the following: *Automated exposure control. *Adjustment of mA and/or kV according to patient size (this includes techniques or standardized protocols for targeted exams where dose is matched to indication/reason for exam; i.e. extremities or head). *Use of iterative reconstruction technique. DLP: 1115 mGy-cm FINDINGS: LUNG BASES: Scarring is present at the lung bases. LIVER, GALLBLADDER, AND BILIARY TREE: The liver is normal in size, shape, and attenuation. No focal hepatic lesion or biliary ductal dilatation is present. Status post cholecystectomy. PANCREAS: Unremarkable. SPLEEN: Unremarkable. ADRENAL GLANDS: Unremarkable. KIDNEYS AND URETERS: Right: Since the prior study, the right obstructing proximal ureteral stone is no longer present and a right-sided percutaneous nephrostomy catheter is in place with its tip coiled in the decompressed renal pelvis. No right-sided pelvocaliectasis is seen. Some tiny punctate renal calculi are present, the largest measuring 3 mm. A lower pole 2 cm benign simple cyst is present. No solid renal masses are seen. The ureter is non-dilated. Left: Three renal non-obstructing calculi are present on the left, the largest measuring 5 mm in the [id number] pole. No hydronephrosis, no renal masses. The ureter is non-dilated. BLADDER: Symmetric wall thickening. GASTROINTESTINAL TRACT: Patient has undergone right hemicolectomy. The small and large bowel are otherwise unremarkable. The appendix has been removed. ABDOMINAL WALL: No significant hernia is appreciated. LYMPH NODES: No retroperitoneal lymphadenopathy. VASCULAR: Calcific plaque but no aneurysm. PELVIC VISCERA: Mild BPH. OSSEOUS STRUCTURES: Degenerative changes present in the spine most marked at L3-L4 and L1-L2. Mild compression fracture with anterior wedging involving T10 and T11. CT/CT abdomen pelvis wo con IMPRESSION: 1. A cause for the patient's weakness and chills has not been found. There is bilateral non-obstructing nephrolithiasis. A right percutaneous nephrostomy catheter is in place. 2. Incidental note made of cholecystectomy, right hemicolectomy, BPH and degenerative changes in the spine. Chest x-ray: Attestation: I personally reviewed and interpreted this imaging study as follows: Radiologist's impression: EXAMINATION: XR CHEST CLINICAL INFORMATION: Chills COMPARISON: Insurance Broker film from CT chest dated 08/21/2020 and chest film dated 08/21/2020 TECHNIQUE: Frontal view of the chest was obtained. FINDINGS: No convincing evidence for an acute process. No obvious failure or infiltrate. There is no effusion. The mediastinal contours are within normal limits. Low lung volumes. XR/XR chest 1V IMPRESSION: Low lung volumes. No convincing evidence for an acute process. ECG Data Attestation: I personally reviewed and interpreted this ECG as follows: ECG interpretation date: 10/23/20 ECG interpretation time: 18:44 Prior ECG tracings: available for review Interpretation: Vent. Rate : 076 BPM Atrial Rate : 076 BPM P-R Int : 186 ms QRS Dur : 086 ms QT Int : 392 ms P-R-T Axes : 049 -31 021 degrees QTc Int : 441 ms Normal sinus rhythm with sinus arrhythmia Left axis deviation Abnormal ECG When compared with ECG of 21-AUG-2020 20:58, No significant change was found Discharge Plan Discharge Clinical Impression: Urinary tract infection Qualifiers: Urinary tract infection type: acute cystitis Hematuria presence: with hematuria Qualified Code(s): N30.01 - Acute cystitis with hematuria Patient Disposition: Home, Self-Care Instructions: How to Care for Your Suprapubic Catheter (DC), Catheter- associated Urinary Tract Infection (ED) Additional Instructions: Please stop taking Bactrim. Take Levaquin 750 mg once daily for 6 days. You received her 1st dose in the emergency department. Your COVID, influenza and RSV swab was negative. Please follow-up with your office machine mechanic, call and make an appointment as soon as possible. Prescriptions: New levofloxacin 750 mg tablet 750 mg PO DAILY Qty: 6 RF: 0 No Action (DME) insulin syringe-needle U-100 1 mL 30 gauge x 1/2 syringe See Rx Instructions ml .ROUTE .MEDSUPPLY Qty: 100 RF: 3 vitamin B complex [B Complex] Capsule 1 cap PO DAILY RF: 0 melatonin 3 mg Capsule 3 mg PO BEDTIME RF: 0 Vitamin C RF: 0 Humulin N NPH U-100 Insulin 100 unit/mL suspension 25 unit subcut BID RF: 0 zinc 50 mg Capsule 50 mg PO DAILY RF: 0 cholecalciferol (vitamin D3) [Vitamin D3] 50 mcg (2,000 unit) Capsule 100 mcg PO DAILY RF: 0 multivitamin [Daily Multi-Vitamin] Tablet 1 tab PO DAILY RF: 0 sulfamethoxazole-trimethoprim [Bactrim DS] 800-160 mg tablet 1 tab PO Q12H 10 Days Qty: 20 RF: 0 Referrals: Steve Liriano MD [Physician] - 2 days (UTI, nephrostomy tube.) Stand Alone Forms: Work/School Release Interventions: ED Discharge Assessment Last Done: 10/23/20 22:05 Discharge Date/Time: 10/23/20 22:51
--- NOTE | 2020-10-23 17:46 | XR_ITS ---
EXAMINATION: XR CHEST CLINICAL INFORMATION: Chills COMPARISON: Termite Control Servicer film from CT chest dated 08/21/2020 and chest film dated 08/21/2020 TECHNIQUE: Frontal view of the chest was obtained. FINDINGS: No convincing evidence for an acute process. No obvious failure or infiltrate. There is no effusion. The mediastinal contours are within normal limits. Low lung volumes. XR/XR chest 1V IMPRESSION: Low lung volumes. No convincing evidence for an acute process.
--- NOTE | 2020-10-23 17:46 | ECG_ITS ---
Test Reason : WEAKNES Blood Pressure : / mmHG Vent. Rate : 076 BPM Atrial Rate : 076 BPM P-R Int : 186 ms QRS Dur : 086 ms QT Int : 392 ms P-R-T Axes : 049 -31 021 degrees QTc Int : 441 ms Normal sinus rhythm with sinus arrhythmia Left axis deviation Abnormal ECG When compared with ECG of 21-AUG-2020 20:58, No significant change was found Referred By: Keyanna Sánchez Electronically Signed By:JED SAINZ MD
--- NOTE | 2020-10-23 17:46 | CT_ITS ---
EXAMINATION: CT ABDOMEN AND PELVIS WITHOUT CONTRAST CLINICAL INFORMATION: Weakness and chills with right nephrostomy catheter in place. COMPARISON: CT abdomen and pelvis 03/21/2020. TECHNIQUE: Multidetector volumetric imaging was performed from the superior aspect of the liver through the pubic symphysis. Sagittal and coronal reformatted images were obtained on the technologist's workstation. This CT examination was performed using dose optimization techniques as appropriate, variously including the following: *Automated exposure control. *Adjustment of mA and/or kV according to patient size (this includes techniques or standardized protocols for targeted exams where dose is matched to indication/reason for exam; i.e. extremities or head). *Use of iterative reconstruction technique. DLP: 1115 mGy-cm FINDINGS: LUNG BASES: Scarring is present at the lung bases. LIVER, GALLBLADDER, AND BILIARY TREE: The liver is normal in size, shape, and attenuation. No focal hepatic lesion or biliary ductal dilatation is present. Status post cholecystectomy. PANCREAS: Unremarkable. SPLEEN: Unremarkable. ADRENAL GLANDS: Unremarkable. KIDNEYS AND URETERS: Right: Since the prior study, the right obstructing proximal ureteral stone is no longer present and a right-sided percutaneous nephrostomy catheter is in place with its tip coiled in the decompressed renal pelvis. No right-sided pelvocaliectasis is seen. Some tiny punctate renal calculi are present, the largest measuring 3 mm. A lower pole 2 cm benign simple cyst is present. No solid renal masses are seen. The ureter is non-dilated. Left: Three renal non-obstructing calculi are present on the left, the largest measuring 5 mm in the [id number] pole. No hydronephrosis, no renal masses. The ureter is non-dilated. BLADDER: Symmetric wall thickening. GASTROINTESTINAL TRACT: Patient has undergone right hemicolectomy. The small and large bowel are otherwise unremarkable. The appendix has been removed. ABDOMINAL WALL: No significant hernia is appreciated. LYMPH NODES: No retroperitoneal lymphadenopathy. VASCULAR: Calcific plaque but no aneurysm. PELVIC VISCERA: Mild BPH. OSSEOUS STRUCTURES: Degenerative changes present in the spine most marked at L3-L4 and L1-L2. Mild compression fracture with anterior wedging involving T10 and T11. CT/CT abdomen pelvis wo con IMPRESSION: 1. A cause for the patient's weakness and chills has not been found. There is bilateral non-obstructing nephrolithiasis. A right percutaneous nephrostomy catheter is in place. 2. Incidental note made of cholecystectomy, right hemicolectomy, BPH and degenerative changes in the spine.
[2020-10-23 19:06] LABS: Glucose, Whole Blood 129 mg/dL (60-115)
[2020-10-23 19:07] LABS: MANUAL DIFF FLAG NO
[2020-10-23 19:14] LABS: INTERNATIONAL NORM RATIO 1.1 (0.9-1.1); Prothrombin Time 12.8 SEC (10.8-13.0)
[2020-10-23 19:17] LABS: Partial Thromboplastin Time 37.9 SEC (24.1-38.0)
[2020-10-23 19:19] LABS: Basophils Absolute Auto 0.1 X10*3/uL (0.0-0.2); Eosinophils Absolute Auto 0.3 X10*3/uL (0.0-0.4); Eosinophils Percent Auto 3.5 % (0-4); Hematocrit 39.1 % (42-52); Hemoglobin 13.9 g/dl (14.0-18.0); Imm Gran Abs Auto 0.03 X10*3/uL (0.00-0.03); Imm Gran Pct Auto 0.3 % (0.0-0.4); Lymphocytes Absolute Auto 2.9 X10*3/uL (1.2-4.9); Lymphocytes Percent Auto 34.1 % (20-40); Mean Corpuscular HGB Conc 35.5 g/dl (31.0-36.0); Mean Corpuscular Hemoglobin 31.2 pg (27.0-33.0); Mean Corpuscular Volume 87.9 fL (80-98); Mean Platelet Volume 10.3 fL (9.4-12.4); Neutrophils Absolute Auto 4.3 X10*3/uL (2.0-8.3); Neutrophils Percent Auto 50.1 % (45-73); Platelet Count 392 X10*3/uL (160-400); Red Blood Count 4.45 X10*6/uL (4.60-5.80); Red Cell Distribution Width 12.7 % (11.0-16.0); White Blood Count 8.6 X10*3/uL (4.8-10.8)
[2020-10-23 19:30] LABS: Lactic Acid 1.4 mmol/L (0.5-2.0)
[2020-10-23 19:34] LABS: Alanine Aminotransferase 27 U/L (0-40); Albumin Level 4.1 g/dL (3.5-5.0); Alkaline Phosphatase 94 U/L (39-117); Anion Gap 13 (12-20); Aspartate Amino Transferase 32 U/L (5-37); Bilirubin Direct 0.4 mg/dL (0.0-0.5); Bilirubin Total 0.9 mg/dL (0.0-1.0); Blood Urea Nitrogen 19 mg/dL (9-16); Calcium 10.1 mg/dL (8.4-10.2); Carbon Dioxide 28 mmol/L (22-29); Chloride 103 mmol/L (96-108); Creatinine Clr Calc Pharmacy 58.1; Estimated Glomerular Filt Rate 49; Glucose Random 140 mg/dL (60-115); Lipase 34 U/L (8-78); Magnesium 2.2 mg/dL (1.6-2.6); Potassium 4.8 mmol/l (3.3-5.1); Sodium 139 mmol/L (135-145); Total Protein 7.4 g/dL (6.5-8.0)
[2020-10-23 19:38] LABS: Troponin-I High Sensitivity 3.6 ng/L (<3.5-35.0)
[2020-10-23 19:49] LABS: Influenza A PCR NEGATIVE (Negative); Influenza B PCR NEGATIVE (Negative); Resp Syncy Virus RNA Qual PCR NEGATIVE (Negative); SARS COV2 PCR INHOUSE NEGATIVE (Negative)
[2020-10-23 21:03] LABS: Glucose Urine UA NEG (NEG); Leukocyte Esterase Urine 2+ (NEG); Nitrite Urine NEG (NEG); PH 7.5 (5.0-8.0); Specific Gravity - Urine 1.015 (1.005-1.025); Urine Blood 1+ (NEG); Urine Ketones NEG (NEG); Urine Protein 1+ MG/DL (NEG-TRACE)
[2020-10-23 21:04] LABS: Appearance Urine CLEAR; Color Urine YELLOW
[2020-10-23 21:08] LABS: Bacteria Urine 2+ /LPF; Squamous Epithelial Cell Urine 1+ /LPF; WBC Urine 30-49 /HPF (0-4)
[2020-10-23] MEDS: levoFLOXacin 750 MG TABLET PO (21:58)
== END 2020-10-23 22:51 | disposition home or self-care (01) ==
PROVIDERS: Nurse Practitioner Family; Emergency Provider Internal Medicine
DX: T83.512A Infection and inflammatory reaction due to nephrostomy catheter, initial encounter (principal); N30.01 Acute cystitis with hematuria; Z20.822 Contact with and (suspected) exposure to COVID-19; E11.22 Type 2 diabetes mellitus with diabetic chronic kidney disease; N18.9 Chronic kidney disease, unspecified; Z96.0 Presence of urogenital implants; Z90.49 Acquired absence of other specified parts of digestive tract; Z85.038 Personal history of other malignant neoplasm of large intestine; Z85.828 Personal history of other malignant neoplasm of skin; Z79.4 Long term (current) use of insulin; Z79.899 Other long term (current) drug therapy
CPT/HCPCS: 0241U; 36415; 71045; 74176; 80048; 80076; 81001; 81003; 82947; 83605; 83690; 83735; 84484; 85025; 85610; 85730; 87040; 93005; 99284

== ENCOUNTER 2020-11-21 13:07 | Outpatient (REF) | payer BC, SELFPAY ==
[2020-11-21 13:48] LABS: MANUAL DIFF FLAG NO
[2020-11-21 14:02] LABS: Basophils Absolute Auto 0.1 X10*3/uL (0.0-0.2); Basophils Percent Auto 0.6 % (0-2); Eosinophils Absolute Auto 0.2 X10*3/uL (0.0-0.4); Eosinophils Percent Auto 1.7 % (0-4); Hematocrit 40.5 % (42-52); Hemoglobin 14.2 g/dl (14.0-18.0); Imm Gran Abs Auto 0.04 X10*3/uL (0.00-0.03); Imm Gran Pct Auto 0.4 % (0.0-0.4); Lymphocytes Absolute Auto 2.5 X10*3/uL (1.2-4.9); Lymphocytes Percent Auto 26.9 % (20-40); Mean Corpuscular HGB Conc 35.1 g/dl (31.0-36.0); Mean Corpuscular Hemoglobin 30.8 pg (27.0-33.0); Mean Corpuscular Volume 87.9 fL (80-98); Mean Platelet Volume 11.2 fL (9.4-12.4); Monocytes Percent Auto 10.6 % (2-11); Neutrophils Absolute Auto 5.6 X10*3/uL (2.0-8.3); Neutrophils Percent Auto 59.8 % (45-73); Platelet Count 371 X10*3/uL (160-400); Red Blood Count 4.61 X10*6/uL (4.60-5.80); Red Cell Distribution Width 13.2 % (11.0-16.0); White Blood Count 9.4 X10*3/uL (4.8-10.8)
[2020-11-21 14:08] LABS: Estimated Average Glucose 123 mg/dL; Hemoglobin A1c % 5.9 %
[2020-11-21 14:21] LABS: Creatinine Urine 92.37 mg/dL
[2020-11-21 14:33] LABS: Alanine Aminotransferase 26 U/L (0-40); Albumin Level 4.1 g/dL (3.5-5.0); Alkaline Phosphatase 83 U/L (39-117); Anion Gap 13 (12-20); Aspartate Amino Transferase 28 U/L (5-37); Bilirubin Total 1.5 mg/dL (0.0-1.0); Blood Urea Nitrogen 20 mg/dL (9-16); Carbon Dioxide 29 mmol/L (22-29); Chloride 104 mmol/L (96-108); Cholesterol 159 mg/dL; Estimated Glomerular Filt Rate > 60; Glucose Fasting 99 mg/dL (60-99); HDL Cholesterol 40 mg/dL; LDL Cholesterol Calculated 102 mg/dl; Potassium 4.5 mmol/L (3.3-5.1); Sodium 141 mmol/L (135-145); Total Protein 7.5 g/dL (6.5-8.0); Triglycerides 88 mg/dL
[2020-11-21 14:38] LABS: Microalbum/Creatinine Ratio Ur 1304.5 ug/mg cr
[2020-11-21 14:55] LABS: Vitamin D 25-OH Total 51.4 ng/mL (>30)
[2020-11-21 14:56] LABS: TSH reflex Free T4 1.66 uIU/mL (0.32-4.0)
== END 2020-11-21 13:08 | disposition home or self-care (01) ==
LOC: HO.LAB 13:07
PROVIDERS: Nurse Practitioner Family; PCP Nurse Practitioner Family; Visit Provider Nurse Practitioner Family
DX: E11.40 Type 2 diabetes mellitus with diabetic neuropathy, unspecified (principal); R01.1 Cardiac murmur, unspecified
CPT/HCPCS: 36415; 80053; 80061; 82043; 82306; 83036; 84443; 85025

== ENCOUNTER → 2020-11-29 13:04 | Outpatient (REF) | payer BC, SELFPAY ==
--- NOTE | 2020-11-29 13:07 | CA_ITS ---
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 No significant valvular or pericardial pathology noted. Normal PA pressures. Findings Left Ventricle Normal left ventricular size, thickness, systolic function, and wall motion. The visually estimated ejection fraction is between 55-60%. Diastolic function is normal for age. Right Ventricle Normal right ventricular cavity size and systolic function. Atria Both atria are normal in size. Aortic Valve There is a normal trileaflet aortic valve. There is mild calcification of the aortic valve. There is no aortic valve stenosis. There is no aortic valve regurgitation. Mitral Valve Normal mitral valve structure and function. There is no mitral valve regurgitation. There is no mitral valve stenosis. Pulmonic Valve Normal pulmonic valve structure and function. There is trace pulmonic valve regurgitation. Tricuspid Valve Normal tricuspid valve structure and function. There is trace tricuspid valve regurgitation. Indeterminate right atrial pressure. There is no evidence of pulmonary hypertension. Great Vessels All visible segments of the aorta are normal in size. The visualized portions of the pulmonary artery and branches are normal. Venous The inferior vena cava was not well visualized. Pericardium/Pleural There is no evidence of pericardial effusion. Prior Study Comparison No significant change compared to prior study dated: 03/17/2008. Measurements 2D Linear Measurements IVSd: 1.03 0.6-0.9/0.6-1.0 cm LVIDd: 3.91 3.9-5.3/4.2-5.9 cm LVIDd Index: 1.71 2.4-3.2/2.2-3.1 cm/m2 LVIDs: 2.56 2.0-3.6 cm LVPWd: 1.03 0.7-1.1 cm Ao Root: 3.40 2.1-3.5 cm LA Diam: 3.50 2.7-3.8/3.0-4.0 cm LAIDs Index: 1.53 1.5-2.3 cm/m2 LV Mass: 159.12 67-162/88-224 g LV Mass Index: 69.48 43-95/49-115 g/m2 LVOT Diam: 2.20 3.0+(-)1.3 cm Mitral Valve MV Pk E: 0.69 MV PK A: 1.09 MV Decel Time: 204.00 E/A: 0.60 E'Lateral: 8.51 E'Medial: 6.48 E/E' Med: 10.60 E/E' Lat: 8.10 PHT: 60.00 MVA PHT: 3.67 Decel [place]: 3.37 Aortic Valve AoV Pk Adolfo: 1.05 AoV Mn Adolfo: 0.64 AoV VTI: 0.23 AoV Pk Grad: 4.00 Aov Mn Grad: 2.00 FLOWER Cont.VTI: 3.68 LVOT LVOT Pk Adolfo: 0.75 LVOT Mn Adolfo: 0.46 LVOT VTI: 0.22 LVOT Pk Grad: 2.00 LVOT Mn Grad: 1.00 LVOT Diam: 2.20 LVOT Area: 3.80 Diastolic Function MV Pk E: 0.69 MV Pk A: 1.09 E/A: 0.60 E'Medial: 6.48 E/E' Med: 10.60 E' Laterial: 8.51 E/E' Lat: 8.10 Tricuspid Valve TR Pk Adolfo: 1.70 TR Pk Grad: 12.00 RA Press: 3.00 Great Vessels Aorta Ao Root-2D: 3.40 2.0-3.7 cm Pulmonary Valve PV Pk Adolfo: 0.79 Peak PV Grad: 2.00 Updated in Other Vendor System with Status of Final Arnold Gunderson MD electronically signed on 12/01/2020 1:51:43 PM with status of Final
== END ==
LOC: HO.CARD 13:04
PROVIDERS: Visit Provider Nurse Practitioner Family
DX: R01.1 Cardiac murmur, unspecified (principal)
CPT/HCPCS: 93306

== ENCOUNTER 2020-12-11 14:02 | Outpatient (REF) | payer BC, SELFPAY ==
[2020-12-11 17:12] LABS: Alanine Aminotransferase 16 U/L (0-40); Albumin Level 4.1 g/dL (3.5-5.0); Alkaline Phosphatase 91 U/L (39-117); Anion Gap 12 (12-20); Aspartate Amino Transferase 22 U/L (5-37); Bilirubin Total 1.6 mg/dL (0.0-1.0); Blood Urea Nitrogen 19 mg/dL (9-16); Calcium 9.6 mg/dL (8.4-10.2); Carbon Dioxide 27 mmol/L (22-29); Chloride 100 mmol/L (96-108); Estimated Glomerular Filt Rate 56; Glucose Random 234 mg/dL (60-115); Potassium 4.4 mmol/L (3.3-5.1); Sodium 135 mmol/L (135-145); Total Protein 7.6 g/dL (6.5-8.0)
[2020-12-11 17:33] LABS: Prostate Specific Antigen Scr 0.47 ng/mL (<0.05-4.0)
== END 2020-12-11 14:03 | disposition home or self-care (01) ==
LOC: HO.HMGCLDS 14:02
PROVIDERS: PCP Nurse Practitioner Family; Visit Provider Nurse Practitioner Family
DX: N20.0 Calculus of kidney (principal); Z12.5 Encounter for screening for malignant neoplasm of prostate
CPT/HCPCS: 36415; 80053; 84153

== ENCOUNTER 2021-01-02 14:13 | Outpatient (REF) | payer BC, SELFPAY ==
[2021-01-02 16:23] LABS: MANUAL DIFF FLAG NO
[2021-01-02 16:26] LABS: Basophils Absolute Auto 0.1 X10*3/uL (0.0-0.2); Basophils Percent Auto 0.6 % (0-2); Eosinophils Absolute Auto 0.2 X10*3/uL (0.0-0.4); Eosinophils Percent Auto 1.6 % (0-4); Hematocrit 40.7 % (42-52); Imm Gran Abs Auto 0.05 X10*3/uL (0.00-0.03); Imm Gran Pct Auto 0.5 % (0.0-0.4); Lymphocytes Absolute Auto 2.8 X10*3/uL (1.2-4.9); Lymphocytes Percent Auto 25.6 % (20-40); Mean Corpuscular HGB Conc 34.4 g/dl (31.0-36.0); Mean Corpuscular Hemoglobin 30.4 pg (27.0-33.0); Mean Corpuscular Volume 88.5 fL (80-98); Mean Platelet Volume 10.9 fL (9.4-12.4); Monocytes Percent Auto 9.2 % (2-11); Neutrophils Absolute Auto 6.8 X10*3/uL (2.0-8.3); Neutrophils Percent Auto 62.5 % (45-73); Platelet Count 439 X10*3/uL (160-400); Red Cell Distribution Width 12.8 % (11.0-16.0); White Blood Count 10.9 X10*3/uL (4.8-10.8)
[2021-01-02 16:33] LABS: Glucose Urine UA NEG (NEG); Leukocyte Esterase Urine 3+ (NEG); Nitrite Urine POS (NEG); PH 7.5 (5.0-8.0); Urine Blood 2+ (NEG); Urine Ketones NEG (NEG); Urine Protein 1+ MG/DL (NEG-TRACE)
[2021-01-02 16:36] LABS: Estimated Average Glucose 128 mg/dL; Hemoglobin A1c % 6.1 %
[2021-01-02 16:38] LABS: Appearance Urine CLOUDY; Color Urine YELLOW
[2021-01-02 16:56] LABS: Alanine Aminotransferase 19 U/L (0-40); Albumin Level 3.9 g/dL (3.5-5.0); Alkaline Phosphatase 88 U/L (39-117); Anion Gap 17 (12-20); Aspartate Amino Transferase 21 U/L (5-37); Blood Urea Nitrogen 22 mg/dL (9-16); Calcium 9.3 mg/dL (8.4-10.2); Carbon Dioxide 25 mmol/L (22-29); Chloride 102 mmol/L (96-108); Estimated Glomerular Filt Rate > 60; Glucose Random 172 mg/dL (60-115); Magnesium 2.2 mg/dL (1.6-2.6); Phosphorus 3.4 mg/dL (2.7-4.5); Potassium 4.8 mmol/L (3.3-5.1); Sodium 139 mmol/L (135-145); Total Protein 7.5 g/dL (6.5-8.0)
[2021-01-02 16:59] LABS: Bacteria Urine 2+ /LPF; Renal Epithelial Cells Urine TRACE /LPF; Squamous Epithelial Cell Urine TRACE /LPF; WBC Urine 30-49 /HPF (0-4)
[2021-01-02 17:05] LABS: Creatinine Urine 41.95 mg/dL; Microalbum/Creatinine Ratio Ur 774.7 ug/mg cr
[2021-01-02 17:19] LABS: Vitamin D 25-OH Total 45.5 ng/mL (>30)
== END 2021-01-02 14:14 | disposition home or self-care (01) ==
LOC: HO.HMGCLDS 14:13
PROVIDERS: PCP Nurse Practitioner Family; Visit Provider Internal Medicine
DX: N18.31 Chronic kidney disease, stage 3a (principal)
CPT/HCPCS: 36415; 80053; 81001; 82043; 82306; 83036; 83735; 84100; 85025

== ENCOUNTER 2021-02-03 09:36 | Outpatient (REF) | payer BC, SELFPAY | END 2021-02-03 09:37 | disposition home or self-care (01) | LOC: HO.LAB 09:36 | PROVIDERS: Visit Provider Nurse Practitioner Family | DX: N30.01 Acute cystitis with hematuria (principal) | CPT/HCPCS: 87086; 87088; 87186 ==

== ENCOUNTER 2021-03-17 16:48 | Emergency (ER) | payer BC, SELFPAY ==
--- NOTE | ~2021-03-17 | CT_ITS ---
EXAMINATION: CT ABDOMEN AND PELVIS WITHOUT CONTRAST CLINICAL INFORMATION: RIght suprapubic pain. kidney stones? ureteral obstruction? . COMPARISON: 10/23/2020. TECHNIQUE: Multidetector volumetric imaging was performed from the superior aspect of the liver through the pubic symphysis without contrast per renal stone protocol. Sagittal and coronal reformatted images were obtained on the technologist workstation. This CT examination was performed using dose optimization techniques as appropriate, variously including the following: *Automated exposure control *Adjustment of mA and/or kV according to patient size (this includes techniques or standardized protocols for targeted exams where dose is matched to indication/reason for exam; i.e. extremities or head) *Use of iterative reconstruction technique DLP: 935 mGy-cm. FINDINGS: LUNG BASES: The visualized lung bases are unremarkable. Bilateral gynecomastia LIVER, GALLBLADDER, BILIARY TREE: The non-contrast liver is normal in size, shape, and attenuation. No focal hepatic lesion or biliary ductal dilatation is present. The gallbladder surgically absent. PANCREAS: Atrophic SPLEEN: Surgically absent. ADRENAL GLANDS: Unremarkable. KIDNEYS AND URETERS: Right-sided percutaneous nephrostomy tube is seen. There is fullness of the right collecting system and right ureter up to a 5 mm calculi in the distal ureter approximately 3 cm proximal to the right ureterovesicular junction. There is an additional nonobstructing 2 mm calcification in the lateral midpole of the right kidney. Nonobstructing 6 mm calcification in the lateral midpole of the contralateral left kidney. Fluid attenuation exophytic 1.8 cm cyst from the lower pole of the right kidney noted. BLADDER: Unremarkable. GASTROINTESTINAL TRACT: Scattered colonic diverticulosis but no evidence for diverticulitis. Right colon is surgically absent with ileocolic anastomosis in the right midabdomen ABDOMINAL WALL: No significant hernia is appreciated. LYMPHOVASCULAR STRUCTURES: Vascular calcification within the aorta iliac system. No bulky adenopathy.. PELVIC VISCERA: Unremarkable. OSSEUS STRUCTURES: Multilevel degenerative changes in the spine. Abnormal soft tissue stranding in the posterior soft tissues posterior to the sacrum suggest the possibility of a sacral decubitus ulcer in this region. There is overlying skin thickening is well. This could be clinically correlated. I do not appreciate any bony destructive lesion at this time. CT/CT abdomen pelvis wo con IMPRESSION: Right percutaneous nephrostomy tube in place with mild fullness to the right collecting system up to a 5 mm calculi in the distal right ureter. Nonobstructing intrarenal calculi noted bilaterally as well. There is worsened soft tissue stranding posterior to the sacrum with overlying skin thickening suggesting the possibility of a sacral decubitus ulcer. This could be clinically correlated. No obvious acute bony destructive lesion at this time.
[2021-03-17 17:02] VITALS: BP 136/76; PULSE 86; RESP 16; TEMP 37; O2SAT 97; BMI 34.0
--- NOTE | 2021-03-17 20:16 | ED_ITS ---
HPI - Abdominal Pain General Chief Complaint: Abdominal Pain Stated Complaint: pelvic pain Time Seen by Provider: 03/17/21 19:46 Source: patient Mode of arrival: ambulatory Limitations: no limitations History of Present Illness HPI narrative: Patient presents to ED for right suprapubic pain with hematuria. Patient states history multiple kidney stones. Patient also has right stent placed. Patient states symptoms started since Wednesday. Related Data Home Medications Medication Instructions Recorded Confirmed multivitamin 1 tab PO DAILY 08/02/20 03/17/21 cholecalciferol (vitamin D3) 100 mcg PO DAILY 08/13/20 03/17/21 [Vitamin D3] insulin NPH isoph U-100 human 25 unit SUBCUT BID 08/13/20 03/17/21 [Humulin N NPH U-100 Insulin] zinc 50 mg PO DAILY 08/13/20 03/17/21 Vitamin C 10/14/20 03/17/21 vitamin B complex [B Complex] 1 cap PO DAILY 10/14/20 03/17/21 cholecalciferol (vitamin D3) 100 100 mcg PO DAILY 11/20/20 03/17/21 mcg (4,000 unit) capsule Previous Rx's Medication Instructions Recorded insulin syringe-needle U-100 1 mL #100 ea 10/10/20 30 gauge x 1/2 ketoconazole 2 % topical cream 1 appl TOPICAL DAILY 14 Days #30 g 01/27/21 cefuroxime axetil 250 mg PO Q12H 10 Days #20 tab 03/18/21 oxycodone-acetaminophen [Percocet] 1 tab PO TID PRN #9 tab 03/18/21 tamsulosin [Flomax] 0.4 mg PO DAILY #10 cap 03/18/21 Allergies Allergy/AdvReac Type Severity Reaction Status Date / Time penicillamine Allergy Unknown unknown Verified 03/17/21 16:10 Review of Systems Review of Systems Yes all other systems are reviewed and are negative Constitutional: Reports as per HPI and Reports no additional constitutional complaints Eyes: Reports as per HPI and Reports no additional eye complaints Reports system reviewed and no additional complaints, except as documented and Reports as per HPI Cardiovascular: Reports as per HPI and Reports no additional cardiovascular complaints Respiratory: Reports as per HPI and Reports no additional respiratory complaints Gastrointestinal: Reports as per HPI, Reports no additional gastrointestinal complaints and Reports abdominal pain (Right suprapubic) Genitourinary: Reports no additional male genitourinary complaints, Reports as per HPI and Reports hematuria Musculoskeletal: Reports no additional musculoskeletal complaints and Reports as per HPI Reports system reviewed and no additional complaints, except as documented and Reports as per HPI Psychiatric: Reports no additional psychiatric complaints and Reports as per [facility] Physical Exam Vital Signs: Vital Signs: Last Vital Signs Temp 98.6 F 03/17/21 17:02 Pulse 68 03/18/21 00:54 Resp 14 03/18/21 00:54 BP 107/53 L 03/18/21 00:54 Pulse Ox 97 03/18/21 00:54 Body Mass Index 34.0 Const: General: cooperative, healthy appearing, comfortable, no acute distress, well developed, alert, awake and Physically active HENMT: Head: Yes normal to inspection, Yes No palpable skull fracture present, Yes normocephalic and Yes atraumatic Eyes: General: appearance normal, both eyes and all related structures Neck: Neck: Yes normal visual inspection, Yes full ROM, Yes no lymphadenopathy, Yes no meningeal signs, Yes trachea midline, Yes supple and No tender Chest: Chest palpation & inspection: normal inspection of the chest and normal palpation of entire chest wall Resp: Effort & Inspection: normal respiratory effort and able to speak in complete sentences Auscultation: clear to auscultation bilaterally Cardio: Jugular venous distension: no JVD Heart sounds: S1 normal heart sound present and S2 normal heart sound present GI: Inspection: Yes normal to inspection and No abdominal wall ecchymosis Palpation (GI): Soft to palpation, not firm, Tenderness to palpation present (GI) suprapubicly, no guarding and not rigid : General: No CVA tenderness and Yes no CVA tenderness Back/Spine/Pelvis: Back: no CVA tenderness, No CVA tenderness and No back tenderness Skin: General skin exam: no rashes or lesions noted and elasticity normal Neuro: General: patient oriented x3, gait normal, no meningeal signs and CN's II-XI intact bilaterally Cranial nerves: Yes CN's II-XII intact bilaterally Extrem: General: Yes normal to inspection and Yes full ROM Psych: Appearance: grossly normal, well kempt and not disheveled Course Course Course Narrative: Patient will have labs UA sent. Patient likely will need CT scan Reevaluation(s) Reevaluation #1: Patient's pain resolved after having Toradol. Patient not in any distress. Patient has mild elevation white blood cell count. CT scan of abdomen will be ordered. Patient given fluid. Reevaluation #2: Abdominal CT scan shows 5 mm stone. Case was discussed with Dr. Dougherty of Urology and he was sent patient's CT scan reports, labs, and history physical exam was discussed. He states patient can be discharged home with follow-up. Patient has follow-up Follows up with Dr. Liriano of [facility]. UA shows UTI ( seems chronic, patient has chronic nephrostomy tube). MDM - Abdominal Pain MDM Narrative Medical decision making narrative: Kidney stone Lab Data Result diagrams: 03/17/21 20:43 03/17/21 20:43 Labs: Lab Results 03/17/21 03/17/21 03/17/21 Range/Units 20:43 20:43 20:43 WBC 11.7 H (4.8-10.8) X10*3/uL RBC 4.70 (4.60-5.80) X10*6/uL Hgb 14.3 (14.0-18.0) g/dl Hct 40.5 L (42-52) % MCV 86.2 (80-98) fL MCH 30.4 (27.0-33.0) pg MCHC 35.3 (31.0-36.0) g/dl RDW 12.9 (11.0-16.0) % Plt Count 423 H (160-400) X10*3/uL MPV 10.8 (9.4-12.4) fL Immature Gran % (Auto) Cancelled Neut % (Auto) Cancelled Lymph % (Auto) Cancelled [place] % (Auto) Cancelled Eos % (Auto) Cancelled Baso % (Auto) Cancelled Lymph # (Auto) Cancelled [place] # (Auto) Cancelled Eos # (Auto) Cancelled Baso # (Auto) Cancelled Abs Immat Gran (auto) Cancelled Absolute Neuts (auto) Cancelled Absolute Nucleated RBC 0.000 (0.0-0.012) X10*3/uL Nucleated RBC % (auto) 0.0 (0.0-0.2) /100WBC Neutrophils % (Manual) 51 (45-73) % Lymphocytes % (Manual) 33 (20-40) % Monocytes % (Manual) 12 H (2-11) % Eosinophils % (Manual) 2 (0-4) % Basophils % (Manual) 2 H (0-1) % Abs Neuts (Manual) 6.0 (2.2-7.9) X10*3/uL Lymphocytes # (Manual) 3.9 (0.6-4.8) X10*3/uL Monocytes # (Manual) 1.4 H (0.0-1.2) X10*3/uL Eosinophils # (Manual) 0.2 (0.0-0.8) X10*3/UL Basophils # (Manual) 0.2 (0.0-0.3) X10*3/uL Platelet Estimate NORMAL (NORMAL) Plt Morphology Comment NORMAL RBC Morphology NOTED Acanthocytes (Spur) 1+ (0-2) /OIF PT 13.5 H (10.8-13.0) SEC INR 1.1 (0.9-1.1) APTT 32.3 (24.1-38.0) SEC Sodium 138 (135-145) mmol/L Potassium 4.6 (3.3-5.1) mmol/L Chloride 106 (96-108) mmol/L Carbon Dioxide 24 (22-29) mmol/L Anion Gap 13 (12-20) BUN 17 H (9-16) mg/dL Creatinine 1.09 (0.5-1.4) mg/dL Estim Creat Clear Calc 75.2 Estimated GFR > 60 Random Glucose 180 H (60-115) mg/dL Calcium 9.9 D (8.4-10.2) mg/dL Total Bilirubin 1.8 H (0.0-1.0) mg/dL AST 33 D (5-37) U/L ALT 17 (0-40) U/L Alkaline Phosphatase 87 (39-117) U/L Total Protein 7.7 (6.5-8.0) g/dL Albumin 3.9 (3.5-5.0) g/dL Urine Color Urine Appearance Urine pH (5.0-8.0) Ur Specific [place] (1.005-1.025) Urine Protein (NEG-TRACE) MG/DL Urine Glucose (UA) (NEG) MG/DL Urine Ketones (NEG) MG/DL Urine Blood (NEG) Urine Nitrite (NEG) Ur Leukocyte Esterase (NEG) Urine RBC (0) /HPF Urine WBC (0-4) /HPF Ur Squamous Epith Cells /LPF Urine Bacteria /LPF 03/18/21 Range/Units 00:23 WBC (4.8-10.8) X10*3/uL RBC (4.60-5.80) X10*6/uL Hgb (14.0-18.0) g/dl Hct (42-52) % MCV (80-98) fL MCH (27.0-33.0) pg MCHC (31.0-36.0) g/dl RDW (11.0-16.0) % Plt Count (160-400) X10*3/uL MPV (9.4-12.4) fL Immature Gran % (Auto) Neut % (Auto) Lymph % (Auto) [place] % (Auto) Eos % (Auto) Baso % (Auto) Lymph # (Auto) [place] # (Auto) Eos # (Auto) Baso # (Auto) Abs Immat Gran (auto) Absolute Neuts (auto) Absolute Nucleated RBC (0.0-0.012) X10*3/uL Nucleated RBC % (auto) (0.0-0.2) /100WBC Neutrophils % (Manual) (45-73) % Lymphocytes % (Manual) (20-40) % Monocytes % (Manual) (2-11) % Eosinophils % (Manual) (0-4) % Basophils % (Manual) (0-1) % Abs Neuts (Manual) (2.2-7.9) X10*3/uL Lymphocytes # (Manual) (0.6-4.8) X10*3/uL Monocytes # (Manual) (0.0-1.2) X10*3/uL Eosinophils # (Manual) (0.0-0.8) X10*3/UL Basophils # (Manual) (0.0-0.3) X10*3/uL Platelet Estimate (NORMAL) Plt Morphology Comment RBC Morphology Acanthocytes (Spur) /OIF PT (10.8-13.0) SEC INR (0.9-1.1) APTT (24.1-38.0) SEC Sodium (135-145) mmol/L Potassium (3.3-5.1) mmol/L Chloride (96-108) mmol/L Carbon Dioxide (22-29) mmol/L Anion Gap (12-20) BUN (9-16) mg/dL Creatinine (0.5-1.4) mg/dL Estim Creat Clear Calc Estimated GFR Random Glucose (60-115) mg/dL Calcium (8.4-10.2) mg/dL Total Bilirubin (0.0-1.0) mg/dL AST (5-37) U/L ALT (0-40) U/L Alkaline Phosphatase (39-117) U/L Total Protein (6.5-8.0) g/dL Albumin (3.5-5.0) g/dL Urine Color BRITTANY Urine Appearance CLOUDY Urine pH 7.0 (5.0-8.0) Ur Specific [place] 1.015 (1.005-1.025) Urine Protein 3+ H (NEG-TRACE) MG/DL Urine Glucose (UA) NEG (NEG) MG/DL Urine Ketones NEG (NEG) MG/DL Urine Blood 3+ H (NEG) Urine Nitrite POS H (NEG) Ur Leukocyte Esterase 3+ H (NEG) Urine RBC 50-75 H (0) /HPF Urine WBC 76-150 H (0-4) /HPF Ur Squamous Epith Cells 3+ /LPF Urine Bacteria 4+ /LPF Discharge Plan Discharge Clinical Impression: Calculus, ureter Patient Disposition: Home, Self-Care Instructions: Ureteral Stones (ED) Additional Instructions: Return to the ED immediately for fever, chills, worsening pain, flank pain, abdominal pain, nausea, vomiting, gross hematuria, or any other concerning symptoms. Please follow-up with your urologist. Prescriptions: New cefuroxime axetil 250 mg tablet 250 mg PO Q12H 10 Days Qty: 20 RF: 0 tamsulosin [Flomax] 0.4 mg capsule 0.4 mg PO DAILY Qty: 10 RF: 0 oxycodone-acetaminophen [Percocet] 5-325 mg tablet 1 tab PO TID PRN (Reason: pain) Qty: 9 RF: 0 No Action (DME) insulin syringe-needle U-100 1 mL 30 gauge x 1/2 syringe See Rx Instructions ml .ROUTE .MEDSUPPLY Qty: 100 RF: 3 vitamin B complex [B Complex] Capsule 1 cap PO DAILY RF: 0 Vitamin C RF: 0 Humulin N NPH U-100 Insulin 100 unit/mL suspension 25 unit subcut BID RF: 0 zinc 50 mg Capsule 50 mg PO DAILY RF: 0 cholecalciferol (vitamin D3) [Vitamin D3] 50 mcg (2,000 unit) Capsule 100 mcg PO DAILY RF: 0 multivitamin [Daily Multi-Vitamin] Tablet 1 tab PO DAILY RF: 0 ketoconazole 2 % cream 1 appl topical DAILY 14 Days Qty: 30 RF: 0 cholecalciferol (vitamin D3) 100 mcg (4,000 unit) capsule 100 mcg PO DAILY RF: 0 Referrals: Steve Liriano MD [Physician] - 2 days (5 mm ureteral stone) Stand Alone Forms: Work/School Release Interventions: ED Discharge Assessment Last Done: 03/18/21 01:37 Discharge Date/Time: 03/18/21 01:39 Print Language: Ukrainian [facility] Past Medical History Medical History Cholecystectomy planned CKD (chronic kidney disease) Diabetes Diabetic retinopathy History of colon cancer Osteoarthritis Partial nontraumatic amputation of right foot Peripheral neuropathy Pulmonary sarcoidosis PVD (peripheral vascular disease) Renal stones Sarcoidosis Skin cancer Spherocytosis Spinal stenosis Surgical History H/O right hemicolectomy History of surgical removal of pilonidal cyst History of tonsillectomy and adenoidectomy Hx of cholecystectomy Hx of colonoscopy Hx of splenectomy Status post laser lithotripsy of ureteral calculus Social History Social History Are you a primary home care consultant to a significant other at home: No Do you presently have visiting nurse or other home services: No Alcohol intake: never Second Hand Smoke Exposure: No Advance Directives: No Advance Directives Information Provided: No
[2021-03-17 20:49] LABS: PLT CLUMP 1
[2021-03-17 20:51] LABS: Hematocrit 40.5 % (42-52); Hemoglobin 14.3 g/dl (14.0-18.0); Mean Corpuscular HGB Conc 35.3 g/dl (31.0-36.0); Mean Corpuscular Hemoglobin 30.4 pg (27.0-33.0); Mean Corpuscular Volume 86.2 fL (80-98); Mean Platelet Volume 10.8 fL (9.4-12.4); Platelet Count 423 X10*3/uL (160-400); Red Cell Distribution Width 12.9 % (11.0-16.0)
[2021-03-17 20:54] LABS: INTERNATIONAL NORM RATIO 1.1 (0.9-1.1); Prothrombin Time 13.5 SEC (10.8-13.0)
[2021-03-17 20:57] LABS: Partial Thromboplastin Time 32.3 SEC (24.1-38.0)
[2021-03-17] MEDS: Ketorolac Tromethamine 30 MG/ML VIAL IVPUSH (21:03)
[2021-03-17] MEDS: 0.9 % Sodium Chloride 1,000 ML 999 ML IV (21:04)
[2021-03-17 21:25] LABS: Alanine Aminotransferase 17 U/L (0-40); Albumin Level 3.9 g/dL (3.5-5.0); Alkaline Phosphatase 87 U/L (39-117); Anion Gap 13 (12-20); Aspartate Amino Transferase 33 U/L (5-37); Bilirubin Total 1.8 mg/dL (0.0-1.0); Blood Urea Nitrogen 17 mg/dL (9-16); Calcium 9.9 mg/dL (8.4-10.2); Carbon Dioxide 24 mmol/L (22-29); Chloride 106 mmol/L (96-108); Creatinine Clr Calc Pharmacy 75.2; Estimated Glomerular Filt Rate > 60; Glucose Random 180 mg/dL (60-115); Potassium 4.6 mmol/L (3.3-5.1); Sodium 138 mmol/L (135-145); Total Protein 7.7 g/dL (6.5-8.0)
[2021-03-17 21:39] LABS: WBC ABN SCTR FOR CBC 1; White Blood Count 11.7 X10*3/uL (4.8-10.8)
[2021-03-17 21:41] LABS: Acanthocytes 1+ (0-2) /OIF; Basophils Abs Manual 0.2 X10*3/uL (0.0-0.3); Basophils Percent Manual 2 % (0-1); Eosinophils Absolute Manual 0.2 X10*3/UL (0.0-0.8); Eosinophils Percent Manual 2 % (0-4); Lymphocytes Absolute Manual 3.9 X10*3/uL (0.6-4.8); Lymphocytes Percent Manual 33 % (20-40); Monocytes Absolute Manual 1.4 X10*3/uL (0.0-1.2); Monocytes Percent Manual 12 % (2-11); Neutrophils Percent Manual 51 % (45-73); Platelet Estimate NORMAL (NORMAL); Platelet Morphology Comment NORMAL; RBC Morphology NOTED
[2021-03-18 00:31] LABS: Glucose Urine UA NEG (NEG); Leukocyte Esterase Urine 3+ (NEG); Nitrite Urine POS (NEG); Specific Gravity - Urine 1.015 (1.005-1.025); UACC Culture Trigger YES; Urine Blood 3+ (NEG); Urine Ketones NEG (NEG); Urine Protein 3+ MG/DL (NEG-TRACE)
[2021-03-18 00:32] LABS: Appearance Urine CLOUDY; Color Urine AMBER
[2021-03-18 00:37] LABS: Bacteria Urine 4+ /LPF; RBC Urine 50-75 /HPF (0); Squamous Epithelial Cell Urine 3+ /LPF
--- NOTE | 2021-03-18 00:39 | PC.NURSE ---
Attempted to obtain urine off of the patient's right nephrostomy tube, but was unable. MARIFER Aguero notified, encouraged to obtain urine from bag connected to nephrostomy. Urine is dark/red tinged, provider aware. Urine likely to be dirty/contaminated due to collection method.
[2021-03-18 00:54] VITALS: BP 107/53; PULSE 68; RESP 14; O2SAT 97
== END 2021-03-18 01:39 | disposition home or self-care (01) ==
PROVIDERS: Physician Assistant; Emergency Provider Internal Medicine; PCP Nurse Practitioner Family
DX: N20.1 Calculus of ureter (principal); E11.22 Type 2 diabetes mellitus with diabetic chronic kidney disease; N18.9 Chronic kidney disease, unspecified; Z79.4 Long term (current) use of insulin; Z79.899 Other long term (current) drug therapy; Z87.442 Personal history of urinary calculi; Z96.0 Presence of urogenital implants
CPT/HCPCS: 36415; 74176; 80053; 81001; 81003; 85007; 85025; 85027; 85610; 85730; 87086; 96365; 96375; 99284; J1885

== ENCOUNTER 2021-05-06 14:42 | Outpatient (REF) | payer BC, SELFPAY ==
--- NOTE | ~2021-05-06 | US_ITS ---
EXAMINATION: US PELVIS LIMITED (BLADDER) CLINICAL INFORMATION: Pain. COMPARISON: Previous CT of the abdomen and pelvis most recent March 2021 TECHNIQUE: Real-time imaging of the bladder. FINDINGS: BLADDER: The bladder wall appears slightly thickened and trabeculated. No stone or mass is seen. Bilateral ureteral jets are demonstrated. Prevoid bladder volume is 319 mL. Postvoid bladder volume is 124 mL. The prostate gland is enlarged and measures 3.7 x 4.4 x 4.2 cm, volume 36 mL. US/US bladder IMPRESSION: Slightly thickened trabeculated bladder wall. 124 mL post void bladder residual. Slightly enlarged prostate gland..
[2021-05-06 15:53] LABS: MANUAL DIFF FLAG NO
[2021-05-06 15:56] LABS: Basophils Absolute Auto 0.1 X10*3/uL (0.0-0.2); Basophils Percent Auto 0.6 % (0-2); Eosinophils Absolute Auto 0.3 X10*3/uL (0.0-0.4); Eosinophils Percent Auto 2.4 % (0-4); Hematocrit 39.3 % (42-52); Hemoglobin 14.2 g/dl (14.0-18.0); Imm Gran Abs Auto 0.04 X10*3/uL (0.00-0.03); Imm Gran Pct Auto 0.4 % (0.0-0.4); Lymphocytes Absolute Auto 3.6 X10*3/uL (1.2-4.9); Lymphocytes Percent Auto 32.8 % (20-40); Mean Corpuscular HGB Conc 36.1 g/dl (31.0-36.0); Mean Corpuscular Hemoglobin 30.8 pg (27.0-33.0); Mean Corpuscular Volume 85.2 fL (80-98); Mean Platelet Volume 10.8 fL (9.4-12.4); Monocytes Absolute Auto 1.1 X10*3/uL (0.1-1.2); Monocytes Percent Auto 10.5 % (2-11); Neutrophils Absolute Auto 5.8 X10*3/uL (2.0-8.3); Neutrophils Percent Auto 53.3 % (45-73); Platelet Count 406 X10*3/uL (160-400); Red Blood Count 4.61 X10*6/uL (4.60-5.80); White Blood Count 10.8 X10*3/uL (4.8-10.8)
[2021-05-06 16:02] LABS: Estimated Average Glucose 126 mg/dL
[2021-05-06 16:16] LABS: Alanine Aminotransferase 21 U/L (0-40); Alkaline Phosphatase 75 U/L (39-117); Anion Gap 14 (12-20); Aspartate Amino Transferase 27 U/L (5-37); Bilirubin Total 2.3 mg/dL (0.0-1.0); Blood Urea Nitrogen 17 mg/dL (9-16); Calcium 9.7 mg/dL (8.4-10.2); Carbon Dioxide 23 mmol/L (22-29); Chloride 103 mmol/L (96-108); Estimated Glomerular Filt Rate > 60; Glucose Random 156 mg/dL (60-115); Potassium 4.2 mmol/L (3.3-5.1); Sodium 136 mmol/L (135-145); Total Protein 7.6 g/dL (6.5-8.0)
[2021-05-06 16:34] LABS: Glucose Urine UA NEG (NEG); Leukocyte Esterase Urine NEG (NEG); Nitrite Urine NEG (NEG); Urine Blood NEG (NEG); Urine Ketones NEG (NEG); Urine Protein NEG (NEG-TRACE)
[2021-05-06 16:36] LABS: Prostate Specific Antigen Scr 0.47 ng/mL (<0.05-4.0); Vitamin D 25-OH Total 50.9 ng/mL (>30)
[2021-05-06 16:43] LABS: Appearance Urine CLEAR; Color Urine YELLOW
[2021-05-06 17:54] LABS: RBC Urine 0 /HPF (0); WBC Urine 0-2 /HPF (0-4)
== END 2021-05-06 14:43 | disposition home or self-care (01) ==
LOC: HO.US 14:42
PROVIDERS: Absent Provider Internal Medicine Medical Oncology; PCP Nurse Practitioner Family; Visit Provider Nurse Practitioner Family
DX: R10.2 Pelvic and perineal pain (principal); E11.9 Type 2 diabetes mellitus without complications; E55.9 Vitamin D deficiency, unspecified; C18.9 Malignant neoplasm of colon, unspecified; Z12.5 Encounter for screening for malignant neoplasm of prostate
CPT/HCPCS: 36415; 76857; 80053; 81001; 82306; 82378; 83036; 84153; 85025; 87086

== ENCOUNTER 2021-06-05 12:36 | Outpatient (REF) | payer BC, SELFPAY | END 2021-06-05 12:37 | disposition home or self-care (01) | LOC: HO.HMGCLDS 12:36 | PROVIDERS: PCP Nurse Practitioner Family; Visit Provider Internal Medicine | DX: Z20.822 Contact with and (suspected) exposure to COVID-19 (principal) | CPT/HCPCS: C9803; U0003; U0005 ==

== ENCOUNTER 2021-06-30 16:26 | Outpatient (REF) | payer BC, SELFPAY ==
--- NOTE | ~2021-06-30 | XR_ITS ---
EXAMINATION: XR CERVICAL SPINE XR THORACIC SPINE CLINICAL INFORMATION: Fall. COMPARISON: None. TECHNIQUE: AP, lateral, open-mouth, and swimmer's views of the cervical spine. AP and lateral views of the thoracic spine. FINDINGS: Cervical Spine: Normal vertebral body alignment. Osseous bridging of the C5-C7 vertebral bodies. Large anterior endplate osteophytes at C3-C5. No lytic or blastic osseous lesion. Unremarkable prevertebral soft tissues. Normal atlantoaxial alignment. Thoracic Spine: Normal vertebral body alignment. The thoracic kyphosis is maintained. Mild loss of vertebral body height within the lower thoracic spine, which could indicate age-indeterminate compression deformities versus normal variation. Diffuse bridging endplate osteophytes. The visualized lungs are clear. Right and left upper quadrant surgical clips. XR/XR thoracic spine 2V IMPRESSION: 1. Prominent diffuse bridging endplate osteophytes, which can be seen in the setting of ankylosing spondylitis. 2. Loss of vertebral body height within the lower thoracic spine, which could indicate age-indeterminate compression deformities.
--- NOTE | ~2021-06-30 | XR_ITS ---
EXAMINATION: XR CERVICAL SPINE XR THORACIC SPINE CLINICAL INFORMATION: Fall. COMPARISON: None. TECHNIQUE: AP, lateral, open-mouth, and swimmer's views of the cervical spine. AP and lateral views of the thoracic spine. FINDINGS: Cervical Spine: Normal vertebral body alignment. Osseous bridging of the C5-C7 vertebral bodies. Large anterior endplate osteophytes at C3-C5. No lytic or blastic osseous lesion. Unremarkable prevertebral soft tissues. Normal atlantoaxial alignment. Thoracic Spine: Normal vertebral body alignment. The thoracic kyphosis is maintained. Mild loss of vertebral body height within the lower thoracic spine, which could indicate age-indeterminate compression deformities versus normal variation. Diffuse bridging endplate osteophytes. The visualized lungs are clear. Right and left upper quadrant surgical clips. XR/XR cervical spine 2V IMPRESSION: 1. Prominent diffuse bridging endplate osteophytes, which can be seen in the setting of ankylosing spondylitis. 2. Loss of vertebral body height within the lower thoracic spine, which could indicate age-indeterminate compression deformities.
== END 2021-06-30 16:27 | disposition home or self-care (01) ==
LOC: HO.XRAY 16:26
PROVIDERS: PCP Nurse Practitioner Family; Visit Provider Nurse Practitioner Family
DX: Z91.81 History of falling (principal)
CPT/HCPCS: 72040; 72070

== ENCOUNTER 2021-07-29 11:30 | Outpatient (REF) | payer BC, SELFPAY ==
[2021-07-29 17:19] LABS: Influenza A PCR NEGATIVE (Negative); Influenza B PCR NEGATIVE (Negative); Resp Syncy Virus RNA Qual PCR NEGATIVE (Negative); SARS COV2 PCR INHOUSE NEGATIVE (Negative)
== END 2021-07-29 11:31 | disposition home or self-care (01) ==
LOC: HO.LAB 11:30
PROVIDERS: Visit Provider Internal Medicine
DX: Z20.822 Contact with and (suspected) exposure to COVID-19 (principal); R43.9 Unspecified disturbances of smell and taste
CPT/HCPCS: 0241U; 36415

== ENCOUNTER 2021-07-29 12:15 | Observation (INO) | payer BC, SELFPAY ==
--- NOTE | 2021-07-29 | ECG_ITS ---
Test Reason : CP Blood Pressure : / mmHG Vent. Rate : 068 BPM Atrial Rate : 068 BPM P-R Int : 180 ms QRS Dur : 086 ms QT Int : 390 ms P-R-T Axes : 023 -34 000 degrees QTc Int : 414 ms Sinus rhythm with marked sinus arrhythmia Left anterior fascicular block Abnormal ECG No significant changes seen Referred By: Generic ED Physician Electronically Signed By:IRIS BARRAGAN MD
--- NOTE | ~2021-07-29 | XR_ITS ---
EXAMINATION: XR CHEST CLINICAL INFORMATION: Chest tightness, SOB. COMPARISON: Chest 10/23/2020 TECHNIQUE: 2 views of the chest were obtained. FINDINGS: No significant abnormality is noted involving the heart, lungs, mediastinum, bony thorax or soft tissues. XR/XR chest 2V IMPRESSION: Unremarkable chest exam.
--- NOTE | ~2021-07-29 | NM_ITS ---
Myocardial perfusion study Indication: Chest pain/tightness and shortness of breath evaluate for myocardial ischemia Technique: The patient was brought in for a Lexiscan perfusion study on 07/31/2021. Patient performed low-level exercise and was injected 0.4 mg of Lexiscan intravenously. Within a minute of injection, 35 mCi of sestamibi was given intravenously. Images were obtained using the SPECT gamma camera interlaced with the gating device. Images were obtained in supine position. Resting perfusion study was performed on 07/30/2021. Patient was administered 35 mCi of sestamibi intravenously at rest. Images were then obtained in supine position. Images obtained with and without CT attenuation. Total DLP 95 mGy-cm. Images were processed with the software and compared side to side in short axis, horizontal long axis and vertical long axis views. Findings: The stress perfusion study showed nonattenuated images show mildly reduced uptake in the basal inferior and mid inferior wall of the LV myocardium. Remainder of the LV myocardium normally mildly reduced apex of the LV myocardium. The gated study shows normal LV systolic function with calculated LVEF of greater than 70 %. LV cavity is normal in size. The gated study shows normal systolic wall thickening and contraction of segments. Resting study shows no change in perfusion pattern compared to stress perfusion study. Gating at rest reveals normal systolic wall motion with ejection fraction at 69%. The findings are consistent with no reversible defect suggestive of ischemia. Normal myocardial perfusion overall. NM/NM titus perf SPECT rest & str Impression: 1. Myocardial perfusion imaging study shows normal myocardial perfusion 2. Gated LVEF is 69% 3. Transient ischemic dilatation not present EKG is nondiagnostic for ischemia
[2021-07-29 12:22] VITALS: BP 137/77; PULSE 78; RESP 18; TEMP 36.8; O2SAT 100; BMI 33.5
--- NOTE | 2021-07-29 12:27 | PC.NURSE ---
PT REFUSING EKG
[2021-07-29 14:31] VITALS: BP 131/74; PULSE 83; RESP 18; O2SAT 99
--- NOTE | 2021-07-29 14:44 | ED.CHESTPAIN ---
HPI - Chest Pain General Chief Complaint: Chest Pain Stated Complaint: cp Time Seen by Provider: 07/29/21 12:47 Source: patient Mode of arrival: ambulatory Limitations: no limitations History of Present Illness HPI narrative: 76-year-old male past medical history significant for diabetes, colon cancer, CKD, PAD, diabetic neuropathy presents to the emergency department with 2 episodes of chest pain, and weakness x1days. He states yesterday he was leaving his job, where he had a very stressful day, any started feeling chest tightness while he was walking to his car. He states at the same time he began to feel short of breath. He states that once he got home he had to climb 2 flights of stairs to get to his apartment, and he again started experiencing chest tightness, and shortness of breath. Today he also complains of generalized weakness, discomfort to his right upper quadrant which is intermittent in nature, and nonradiating and slight chest pressure. He also states he feels a little bit anxious. He denies fevers, chills, falls, dizziness, recent sick contacts, cough nausea, vomiting, diarrhea, palpitations, leg swelling. is not a smoker, he is not vaccinated against COVID-19. MD complaint: chest heaviness Pertinent past history: other (Diabetes) Onset (ago): day(s) (2) Timing of current episode: episodic Prior episodes: No Onset: during exertion Pain location: substernal Pain radiation: none Severity: mild Quality: tightness Relieving factors: nothing Exacerbating factors: nothing Associated symptoms: dyspnea (On exertion) Treatment prior to arrival: none Related Data Home Medications Medication Instructions Recorded Confirmed zinc 50 mg capsule 50 mg PO DAILY 08/13/20 07/29/21 vitamin B complex 1 cap PO DAILY 10/14/20 07/29/21 cholecalciferol (vitamin D3) 100 100 mcg PO DAILY 11/20/20 07/29/21 mcg (4,000 unit) capsule omega-3 417 mg-dha 120 mg-epa-276 417 cap PO DAILY 04/08/21 07/29/21 mg-fish oil 600 mg-tumeric capsule insulin NPH isoph U-100 human 100 20 - 30 unit SUBCUT BID 07/29/21 07/29/21 unit/mL subcutaneous suspension (Humulin N NPH U-100 Insulin (isophane susp)) Previous Rx's Medication Instructions Recorded ketoconazole 2 % topical cream 1 appl TOPICAL DAILY 90 Days #60 g 07/09/21 Allergies Allergy/AdvReac Type Severity Reaction Status Date / Time penicillamine Allergy Unknown unknown Verified 07/29/21 12:22 Review of Systems Review of Systems: Yes all other systems are reviewed and are negative [facility] Past Medical History Attestation statement: The following information was validated with the patient. Source: old records reviewed and nursing notes reviewed Medical History Cholecystectomy planned CKD (chronic kidney disease) Diabetes Diabetic retinopathy History of colon cancer Osteoarthritis Partial nontraumatic amputation of right foot Peripheral neuropathy Pulmonary sarcoidosis PVD (peripheral vascular disease) Renal stones Sarcoidosis Skin cancer Spherocytosis Spinal stenosis Surgical History H/O right hemicolectomy History of surgical removal of pilonidal cyst History of tonsillectomy and adenoidectomy Hx of cholecystectomy Hx of colonoscopy Hx of splenectomy Status post laser lithotripsy of ureteral calculus Family History Family History Other Mental health disorder Social History Social History Housing: House Are you a primary field care advocate to a significant other at home: No Do you presently have visiting nurse or other home services: No Alcohol intake: never Patient Tobacco Use Status: Never used Tobacco Second Hand Smoke Exposure: No Use of substances other than those prescribed or required for medical reasons: No Advance Directives: No Advance Directives Information Provided: No Current occupational status: employed and retired Physical Exam Vital Signs: Vital Signs: Last Vital Signs Temp 98.0 F 07/29/21 17:39 Pulse 66 07/29/21 17:39 Resp 18 07/29/21 17:39 BP 123/67 07/29/21 17:39 Pulse Ox 99 07/29/21 17:39 Body Mass Index 33.5 Const: General: cooperative and no acute distress Orientation/consciousness: oriented to person and oriented to place Limitations: no limitations HENMT: Head: Yes normal to inspection, Yes normocephalic and Yes atraumatic Ears: external ears normal General nose exam: Normal external nose present Face and sinus: Yes normal facial exam Mouth: Normal oral and palatal mucosa present Throat: Yes posterior oropharynx normal Eyes: General: appearance normal, both eyes and all related structures Pupils: Equal, round and reactive pupils present Neck: Neck: Yes normal visual inspection, Yes no lymphadenopathy, Yes trachea midline and Yes supple Chest: Chest palpation & inspection: normal inspection of the chest and normal palpation of entire chest wall Resp: Effort & Inspection: normal respiratory effort and able to speak in complete sentences Auscultation: clear to auscultation bilaterally Cardio: Rate: regular rate Rhythm: regular rhythm Heart sounds: S1 normal heart sound present, S2 normal heart sound present and no murmurs GI: Inspection: Yes normal to inspection Palpation (GI): Soft to palpation, nontender and no guarding Auscultation: normal bowel sounds : General: Yes no CVA tenderness Back/Spine/Pelvis: Back: no CVA tenderness Skin: General skin exam: no rashes or lesions noted Neuro: General: oriented to person and oriented to place Cranial nerves: Yes CN's II-XII intact bilaterally and Yes Equal, round and reactive pupils present Cognition (Neuro): normal cognition Motor exam (neuro): 5/5 motor strength present throughout Sensory Exam: Normal double simultaneous stimulation for sensation Coordination: [id number] test normal, [id number]-[id number] test normal and tandem gait normal Extrem: General: Yes normal to inspection Psych: Other: Patient is speaking very rapidly, and appears anxious. Appearance: grossly normal Speech and movement: Normal speech and movement present Affect: normal affect Attitude: cooperative Thought process: Normal thought process present Thought content: Normal thought content present Course Course Course Narrative: 76-year-old male pmhx significant for diabetes, colon cancer, CKD, PAD, diabetic neuropathy presents to the emergency department with 2 episodes of chest pain, and shortness of breath on exertion yesterday after the most stressful day ever at work, and weakness and right upper quadrant pain today. Upon physical examination lungs are clear to auscultation bilaterally. S1-S2 appreciated, free of murmurs. 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 There is no pain to palpation to the right upper quadrant. Throughout the examination patient appears very anxious, and is speaking very rapidly. Reevaluation(s) Reevaluation #1: Labs show no acute infection, no anemia. Bilirubin is slightly elevated, however this is not new, has been elevated in the past. Troponin negative BNP 51. EKG shows no acute ischemia. Based off of EKG findings, and troponin, this is unlikely a STEMI. However, due to patient history this is a likely unstable angina. He reports relief, after taking aspirin. he states his anxiety has decreased after taking Ativan. He no longer reports chest pain. Paste office patient history, labs and physical exam, this is likely unstable angina. He is safe for discharge home, with PCP follow-up, and follow-up with a portrait studio photographer. He will be provided with [facility]'s cardiology number which she can contact to make an appointment Time: 16:20 Reevaluation #2: TT Dr. Javier who advises patient be admitted for further work up. Will speak to hospitalist at this time. Time: 16:47 Reevaluation #3: Spoke to Dr. Choi, who will be admitting this patient. Time: 17:02 MDM - Chest Pain MDM Narrative Medical decision making narrative: Plan at this time is to obtain basic labs, troponin,EKG,chest x-ray, UA, COVID. Patient will also be given Ativan for his anxiety and aspirin. Will rule out ACS and CHF. Lab Data Result diagrams: 07/29/21 15:47 07/29/21 15:47 Labs: Lab Results 07/29/21 07/29/21 07/29/21 Range/Units 15:47 15:47 15:47 WBC 10.8 (4.8-10.8) X10*3/uL RBC 4.70 (4.60-5.80) X10*6/uL Hgb 14.6 (14.0-18.0) g/dl Hct 40.2 L (42-52) % MCV 85.5 (80-98) fL MCH 31.1 (27.0-33.0) pg MCHC 36.3 H (31.0-36.0) g/dl RDW 12.7 (11.0-16.0) % Plt Count 417 H (160-400) X10*3/uL MPV 11.0 (9.4-12.4) fL Immature Gran % (Auto) Cancelled Neut % (Auto) Cancelled Lymph % (Auto) Cancelled [place] % (Auto) Cancelled Eos % (Auto) Cancelled Baso % (Auto) Cancelled Lymph # (Auto) Cancelled [place] # (Auto) Cancelled Eos # (Auto) Cancelled Baso # (Auto) Cancelled Abs Immat Gran (auto) Cancelled Absolute Neuts (auto) Cancelled Absolute Nucleated RBC 0.000 (0.0-0.012) X10*3/uL Nucleated RBC % (auto) 0.0 (0.0-0.2) /100WBC Neutrophils % (Manual) 46 (45-73) % Band Neutrophils % 6 H (3-5) % Lymphocytes % (Manual) 31 (20-40) % Atypical Lymphs % (Man) 1 (0-6) % Monocytes % (Manual) 9 (2-11) % Eosinophils % (Manual) 4 (0-4) % Basophils % (Manual) 1 (0-1) % Metamyelocytes % 2 % Abs Neuts (Manual) 5.6 (2.2-7.9) X10*3/uL Lymphocytes # (Manual) 3.3 (0.6-4.8) X10*3/uL Atyp Lymphs # (Manual) 0.1 x10*3/uL Monocytes # (Manual) 1.0 (0.0-1.2) X10*3/uL Eosinophils # (Manual) 0.4 (0.0-0.8) X10*3/UL Basophils # (Manual) 0.1 (0.0-0.3) X10*3/uL Metamyelocytes # 0.2 X10*3/uL Smudge Cells PRESENT Toxic Vacuolation PRESENT Platelet Estimate INCREASED (NORMAL) Plt Morphology Comment NORMAL RBC Morphology NOTED Macrocytosis 1+ (5-14) /OIF [place] Cells 2+ (3-5) /OIF Acanthocytes (Spur) 1+ (0-2) /OIF Schistocytes 1+ (0-2) /OIF Sodium 138 (135-145) mmol/L Potassium 4.1 (3.3-5.1) mmol/L Chloride 104 (96-108) mmol/L Carbon Dioxide 24 (22-29) mmol/L Anion Gap 14 (12-20) BUN 15 (9-16) mg/dL Creatinine 1.16 (0.5-1.4) mg/dL Estim Creat Clear Calc 69.0 Estimated GFR > 60 Random Glucose 178 H (60-115) mg/dL Calcium 9.5 (8.4-10.2) mg/dL Total Bilirubin 2.1 H (0.0-1.0) mg/dL AST 28 (5-37) U/L ALT 22 (0-40) U/L Alkaline Phosphatase 96 D (39-117) U/L Troponin I High Sens < 3.5 (<3.5-35.0) ng/L B-Natriuretic Peptide (<100) pg/mL Total Protein 7.5 (6.5-8.0) g/dL Albumin 4.0 (3.5-5.0) g/dL Lipase 15 (8-78) U/L COVID-19 (KASH) (Negative) COVID-19 Clin Com 07/29/21 07/29/21 Range/Units 15:47 15:47 WBC (4.8-10.8) X10*3/uL RBC (4.60-5.80) X10*6/uL Hgb (14.0-18.0) g/dl Hct (42-52) % MCV (80-98) fL MCH (27.0-33.0) pg MCHC (31.0-36.0) g/dl RDW (11.0-16.0) % Plt Count (160-400) X10*3/uL MPV (9.4-12.4) fL Immature Gran % (Auto) Neut % (Auto) Lymph % (Auto) [place] % (Auto) Eos % (Auto) Baso % (Auto) Lymph # (Auto) [place] # (Auto) Eos # (Auto) Baso # (Auto) Abs Immat Gran (auto) Absolute Neuts (auto) Absolute Nucleated RBC (0.0-0.012) X10*3/uL Nucleated RBC % (auto) (0.0-0.2) /100WBC Neutrophils % (Manual) (45-73) % Band Neutrophils % (3-5) % Lymphocytes % (Manual) (20-40) % Atypical Lymphs % (Man) (0-6) % Monocytes % (Manual) (2-11) % Eosinophils % (Manual) (0-4) % Basophils % (Manual) (0-1) % Metamyelocytes % % Abs Neuts (Manual) (2.2-7.9) X10*3/uL Lymphocytes # (Manual) (0.6-4.8) X10*3/uL Atyp Lymphs # (Manual) x10*3/uL Monocytes # (Manual) (0.0-1.2) X10*3/uL Eosinophils # (Manual) (0.0-0.8) X10*3/UL Basophils # (Manual) (0.0-0.3) X10*3/uL Metamyelocytes # X10*3/uL Smudge Cells Toxic Vacuolation Platelet Estimate (NORMAL) Plt Morphology Comment RBC Morphology Macrocytosis /OIF Hi Cells /OIF Acanthocytes (Spur) /OIF Schistocytes /OIF Sodium (135-145) mmol/L Potassium (3.3-5.1) mmol/L Chloride (96-108) mmol/L Carbon Dioxide (22-29) mmol/L Anion Gap (12-20) BUN (9-16) mg/dL Creatinine (0.5-1.4) mg/dL Estim Creat Clear Calc Estimated GFR Random Glucose (60-115) mg/dL Calcium (8.4-10.2) mg/dL Total Bilirubin (0.0-1.0) mg/dL AST (5-37) U/L ALT (0-40) U/L Alkaline Phosphatase (39-117) U/L Troponin I High Sens (<3.5-35.0) ng/L B-Natriuretic Peptide 51 (<100) pg/mL Total Protein (6.5-8.0) g/dL Albumin (3.5-5.0) g/dL Lipase (8-78) U/L COVID-19 (KASH) Negative (Negative) COVID-19 Clin Com See Note ECG Data ECG #1: Attestation: I personally reviewed and interpreted this ECG as follows: ECG interpretation date: 07/29/21 ECG interpretation time: 15:21 Prior ECG tracings: available for review Interpretation: Ventricular rate of 68, normal FL, normal QRS, normal QT/QTC. No ST elevations, no T-wave inversions. EKG shows normal sinus rhythm with sinus arrhythmia w/ left axis deviation, no acute ischemia. No acute changes when compared to previous EKGs. Discharge Plan Discharge Clinical Impression: Angina pectoris, unstable, Anxiety Patient Disposition: Admitted As Inpatient Prescriptions: No Action ketoconazole 2 % cream 1 appl topical DAILY 90 Days Qty: 60 RF: 1 vitamin B complex [B Complex] Capsule 1 cap PO DAILY RF: 0 zinc 50 mg Capsule 50 mg PO DAILY RF: 0 Humulin N NPH U-100 Insulin 100 unit/mL suspension 20 - 30 unit subcut BID RF: 0 cholecalciferol (vitamin D3) 100 mcg (4,000 unit) capsule 100 mcg PO DAILY RF: 0 omega 2-vkj-nyc-fish-turmeric 417 mg-120 mg- 276 mg-600 mg capsule 417 cap PO DAILY RF: 0 Referrals: Stuart Will, [employer] [Primary Care Provider] - 2 days Stand Alone Forms: Work/School Release
[2021-07-29] MEDS: Aspirin 81 MG TAB.CHEW 324 MG PO (15:34)
[2021-07-29] MEDS: LORazepam 1 MG TABLET PO (15:34)
--- NOTE | 2021-07-29 15:55 | PC.NURSE ---
pt is alert and oriented, skin pwd, respirations even and unlabored, pt denies chest pain/sob. pt does report feeling cold/shaky/slightly anxious ns on the monitor.
[2021-07-29 16:02] LABS: Hematocrit 40.2 % (42-52); Hemoglobin 14.6 g/dl (14.0-18.0); Mean Corpuscular HGB Conc 36.3 g/dl (31.0-36.0); Mean Corpuscular Hemoglobin 31.1 pg (27.0-33.0); Mean Corpuscular Volume 85.5 fL (80-98); Platelet Count 417 X10*3/uL (160-400); Red Cell Distribution Width 12.7 % (11.0-16.0)
[2021-07-29 16:03] LABS: WBC ABN SCTR FOR CBC 1
[2021-07-29 16:12] LABS: COVID-19 Test Negative (Negative)
[2021-07-29 16:15] LABS: Alanine Aminotransferase 22 U/L (0-40); Alkaline Phosphatase 96 U/L (39-117); Anion Gap 14 (12-20); Aspartate Amino Transferase 28 U/L (5-37); Bilirubin Total 2.1 mg/dL (0.0-1.0); Blood Urea Nitrogen 15 mg/dL (9-16); Calcium 9.5 mg/dL (8.4-10.2); Carbon Dioxide 24 mmol/L (22-29); Chloride 104 mmol/L (96-108); Estimated Glomerular Filt Rate > 60; Glucose Random 178 mg/dL (60-115); Lipase 15 U/L (8-78); Potassium 4.1 mmol/L (3.3-5.1); Sodium 138 mmol/L (135-145); Total Protein 7.5 g/dL (6.5-8.0)
[2021-07-29 16:19] LABS: B Type Natriuretic Peptide 51 pg/mL (<100); Troponin-I High Sensitivity < 3.5 ng/L (<3.5-35.0)
[2021-07-29 16:40] LABS: Atypical Lymphs Percent Manual 1 % (0-6); Band Neutrophils Percent 6 % (3-5); Basophils Percent Manual 1 % (0-1); Eosinophils Percent Manual 4 % (0-4); Lymphocytes Percent Manual 31 % (20-40); Metamyelocytes Percent 2 %; Monocytes Percent Manual 9 % (2-11); Neutrophils Percent Manual 46 % (45-73)
[2021-07-29 16:41] LABS: Acanthocytes 1+ (0-2) /OIF; Burr Cells 2+ (3-5) /OIF; Macrocytosis 1+ (5-14) /OIF; Platelet Estimate INCREASED (NORMAL); Platelet Morphology Comment NORMAL; RBC Morphology NOTED
[2021-07-29 16:42] LABS: Atypical Lymph Absolute Manual 0.1 x10*3/uL; Basophils Abs Manual 0.1 X10*3/uL (0.0-0.3); Eosinophils Absolute Manual 0.4 X10*3/UL (0.0-0.8); Lymphocytes Absolute Manual 3.3 X10*3/uL (0.6-4.8); Metamyelocytes Absolute 0.2 X10*3/uL; Neutrophils Absolute Manual 5.6 X10*3/uL (2.2-7.9); Schistocytes 1+ (0-2) /OIF; Smudge Cells PRESENT; Toxic Vacuolation PRESENT; White Blood Count 10.8 X10*3/uL (4.8-10.8)
--- NOTE | 2021-07-29 17:34 | PHA.MEDREC ---
Pharmacy Consult ? Medication Reconciliation Pharmacy has completed the medication reconciliation. Patient states that he takes several OTC medications including omega 3, vitamin D, vitamin B complex, Zinc, and tummeric. I wasn't able to verify the specific doses of the OTC medications with the patient but based on past med recs I filled in the medications based on his history. The patient also states that he takes 20 to 30 units of Humilin N with breakfast and dinner depending on his sugars and what he eats. Karuna Ricks, PharmD [phone]
[2021-07-29 17:39] VITALS: BP 123/67; PULSE 66; RESP 18; TEMP 36.7; O2SAT 99
--- NOTE | 2021-07-29 18:48 | PC.NURSE ---
pt reports feeling a little better after the medications, still feels cold but the shaky feeling has subsided, denies chest pain, vs stable
[2021-07-29 18:49] VITALS: BP 116/59; PULSE 67; RESP 20; O2SAT 99
--- NOTE | 2021-07-29 18:57 | P.HPHOSP_ITS ---
History of Present Illness Date of Service: 07/29/21 Attending physician on admission: Jhonny Choi Chief Complaint: chest pain 76-year-old male past medical history significant for diabetes, colon cancers/p resection 2years back , nephrolithiasis also has nephrostomy tube which was plac ed in 1 and half year ago, CKD, PAD, diabetic neuropathy presents to the emergency department with 2 episodes of chest pain, and weakness . He said yesterday while he was at school was most stressful day for him and after school as he was leaving - any started feeling chest tightness while he was walking to his car. ? He states at the same time he began to feel short of breath with the exertion. He felt 2nd episode of similar symptoms when he was climbing is stairs. Today he also complains of generalized weakness, discomfort to his right upper quadrant which is intermittent in nature, and nonradiating? and slight chest pressure.? He also states he feels a little bit anxious.? He said chest pain is improved-currently does not have any symptoms. Denies any abdominal pain or fever or chills or nausea or vomiting Denies any cough Denies any focal weakness or numbness. Review of Systems Review of Systems: As above. Yes all other systems are reviewed and are negative [facility] Medical History Cholecystectomy planned CKD (chronic kidney disease) Diabetes Diabetic retinopathy History of colon cancer Osteoarthritis Partial nontraumatic amputation of right foot Peripheral neuropathy Pulmonary sarcoidosis PVD (peripheral vascular disease) Renal stones Sarcoidosis Skin cancer Spherocytosis Spinal stenosis Family History Other Mental health disorder Pertinent family history: father-aortic aneurysm, mother from Alzheimer's. Surgical History H/O right hemicolectomy History of surgical removal of pilonidal cyst History of tonsillectomy and adenoidectomy Hx of cholecystectomy Hx of colonoscopy Hx of splenectomy Status post laser lithotripsy of ureteral calculus Social History Housing: House Are you a primary career law clerk to a significant other at home: No Do you presently have visiting nurse or other home services: No Alcohol intake: never Patient Tobacco Use Status: Never used Tobacco Second Hand Smoke Exposure: No Use of substances other than those prescribed or required for medical reasons: No Advance Directives: No Advance Directives Information Provided: No Current occupational status: employed and retired Meds Allergies Allergy/AdvReac Type Severity Reaction Status Date / Time penicillamine Allergy Unknown unknown Verified 07/29/21 12:22 Active Medications: Current Medications Aspirin (Aspirin Enteric Coated 81 Mg Tablet.) 81 mg PO DAILY COUNT INCLUDES THE [facility] Atorvastatin Calcium (Atorvastatin Calcium 20 Mg Tablet) 20 mg PO ONCE ONE Stop: 07/29/21 18:56 Multivitamins/Vitamin C (Multivitamin Tablet) tab PO DAILY COUNT INCLUDES THE [facility] Non-Formulary Medication (Ketoconazole) 1 appl TOPICAL DAILY COUNT INCLUDES THE [facility] Non-Formulary Medication ([place] 4-Duu-Wik-Fish-Turmeric) 417 cap PO DAILY COUNT INCLUDES THE [facility] Non-Formulary Medication (Zinc) 50 mg PO DAILY COUNT INCLUDES THE [facility] Pharmacy Consult (Consult Rx Perform Med Rec) 1 each MISCELLANE ONCE PRN PRN Reason: Consult order Sodium Chloride (0.9 % Sodium Chloride Flush 3 Ml Syringe) 3 ml IVFLUSH QSHIFT COUNT INCLUDES THE [facility] Vitamin D (Cholecalciferol (Vitamin D3) 25 Mcg Tablet) 100 mcg PO DAILY COUNT INCLUDES THE [facility] Home Medications Medication Instructions Recorded Confirmed Last Taken Type zinc 50 mg capsule 50 mg PO DAILY 08/13/20 07/29/21 Unknown History vitamin B complex 1 cap PO DAILY 10/14/20 07/29/21 Unknown History cholecalciferol (vitamin D3) 100 100 mcg PO DAILY 11/20/20 07/29/21 Unknown History mcg (4,000 unit) capsule omega-3 417 mg-dha 120 mg-epa-276 417 cap PO DAILY 04/08/21 07/29/21 Unknown History mg-fish oil 600 mg-tumeric capsule insulin NPH isoph U-100 human 100 20 - 30 unit SUBCUT BID 07/29/21 07/29/21 Unknown History unit/mL subcutaneous suspension (Humulin N NPH U-100 Insulin (isophane susp)) Physical Exam Vital Signs and Narrative: Vital Signs: Last Vital Signs Temp 98.0 F 07/29/21 17:39 Pulse 67 07/29/21 18:49 Resp 20 07/29/21 18:49 BP 116/59 L 07/29/21 18:49 Pulse Ox 99 07/29/21 18:49 Body Mass Index 33.5 Physical exam: Appearance: Alert.? Oriented X3.? not in distress.? Eyes: Pupils equal, round and reactive to light.? Sclera nonicteric.? ENT: Pharynx normal.? Moist mucous membranes. cvs: rrr, [id number] , no murmur res: clear to auscultation ,no rhonchii or wheezing abd: no rebound or guarding ,nt, bs present. ext pulses present , no cyanosis ,Gait well balanced well coordinated. neuro: axo3 , nonfocal. Results Labs CBC and Chem 7: 07/29/21 15:47 07/29/21 15:47 Labs: Laboratory Results - last 24 hr 07/29/21 07/29/21 07/29/21 15:47 15:47 15:47 MCV 85.5 MCH 31.1 MCHC 36.3 H RDW 12.7 Plt Count 417 H MPV 11.0 Immature Gran % (Auto) Cancelled Neut % (Auto) Cancelled Lymph % (Auto) Cancelled [place] % (Auto) Cancelled Eos % (Auto) Cancelled Baso % (Auto) Cancelled Lymph # (Auto) Cancelled [place] # (Auto) Cancelled Eos # (Auto) Cancelled Baso # (Auto) Cancelled Abs Immat Gran (auto) Cancelled Absolute Neuts (auto) Cancelled Absolute Nucleated RBC 0.000 Nucleated RBC % (auto) 0.0 Neutrophils % (Manual) 46 Band Neutrophils % 6 H Lymphocytes % (Manual) 31 Atypical Lymphs % (Man) 1 Monocytes % (Manual) 9 Eosinophils % (Manual) 4 Basophils % (Manual) 1 Metamyelocytes % 2 Abs Neuts (Manual) 5.6 Lymphocytes # (Manual) 3.3 Atyp Lymphs # (Manual) 0.1 Monocytes # (Manual) 1.0 Eosinophils # (Manual) 0.4 Basophils # (Manual) 0.1 Metamyelocytes # 0.2 Smudge Cells PRESENT Toxic Vacuolation PRESENT Platelet Estimate INCREASED Plt Morphology Comment NORMAL RBC Morphology NOTED Macrocytosis 1+ (5-14) [place] Cells 2+ (3-5) Acanthocytes (Spur) 1+ (0-2) Schistocytes 1+ (0-2) Anion Gap 14 Estim Creat Clear Calc 69.0 Estimated GFR > 60 Random Glucose 178 H Calcium 9.5 Total Bilirubin 2.1 H AST 28 ALT 22 Alkaline Phosphatase 96 D Troponin I High Sens < 3.5 B-Natriuretic Peptide Total Protein 7.5 Albumin 4.0 Lipase 15 COVID-19 (KASH) COVID-19 Clin Com 07/29/21 07/29/21 15:47 15:47 MCV MCH MCHC RDW Plt Count MPV Immature Gran % (Auto) Neut % (Auto) Lymph % (Auto) [place] % (Auto) Eos % (Auto) Baso % (Auto) Lymph # (Auto) [place] # (Auto) Eos # (Auto) Baso # (Auto) Abs Immat Gran (auto) Absolute Neuts (auto) Absolute Nucleated RBC Nucleated RBC % (auto) Neutrophils % (Manual) Band Neutrophils % Lymphocytes % (Manual) Atypical Lymphs % (Man) Monocytes % (Manual) Eosinophils % (Manual) Basophils % (Manual) Metamyelocytes % Abs Neuts (Manual) Lymphocytes # (Manual) Atyp Lymphs # (Manual) Monocytes # (Manual) Eosinophils # (Manual) Basophils # (Manual) Metamyelocytes # Smudge Cells Toxic Vacuolation Platelet Estimate Plt Morphology Comment RBC Morphology Macrocytosis Hi Cells Acanthocytes (Spur) Schistocytes Anion Gap Estim Creat Clear Calc Estimated GFR Random Glucose Calcium Total Bilirubin AST ALT Alkaline Phosphatase Troponin I High Sens B-Natriuretic Peptide 51 Total Protein Albumin Lipase COVID-19 (KASH) Negative COVID-19 Clin Com See Note Imaging Radiologist's Impressions: Impressions Chest X-Ray 07/29/21 14:51 IMPRESSION: Unremarkable chest exam. Assessment and Plan (1) Chest pain: Status: Acute (2) Anxiety: Status: Acute 1. chest pain- pain is mainly with excersion and under stress situation yesterday No new episode Troponin x1 negative, 2nd troponin pending. Will give aspirin statin Added echo ED physician discussed the case with cardio and recommended admission for further workup 2. Diabetes: Fingersticks with sliding scale Diabetic diet 3. anxiety: care team eval 3.dvt prophylax with lovenox. Quality Stroke Does the patient have a stroke diagnosis?: No VTE Prior VTE?: No VTE Risk Level:: Medical - moderate - high VTE Device Contraindication: N/A - Device Ordered VTE Drug Contraindication: N/A - Med Ordered
[2021-07-29] MEDS: Atorvastatin Calcium 20 MG TABLET PO (19:32)
[2021-07-29] MEDS: Enoxaparin Sodium 40 MG/0.4 ML SYRINGE SUBCUT (19:32)
[2021-07-29 19:48] LABS: Appearance Urine CLEAR; Color Urine YELLOW; Glucose Urine UA NEG (NEG); Leukocyte Esterase Urine 3+ (NEG); Nitrite Urine POS (NEG); PH 6.5 (5.0-8.0); Specific Gravity - Urine <= 1.005 (1.005-1.025); UACC Culture Trigger YES; Urine Blood 1+ (NEG); Urine Ketones NEG (NEG); Urine Protein NEG (NEG-TRACE)
[2021-07-29 19:54] LABS: Troponin-I High Sensitivity 3.6 ng/L (<3.5-35.0)
[2021-07-29 20:08] VITALS: BP 100/52; PULSE 74; RESP 13; O2SAT 99
--- NOTE | 2021-07-29 20:09 | PC.NURSE ---
pt is eating and drinking. no n/v a this time. labs drawn.
[2021-07-29 20:17] LABS: Amorphous Sediment Urine TRACE /LPF; Bacteria Urine 1+ /LPF; Mucus Urine 1+ /LPF; RBC Urine 0-2 /HPF (0); Squamous Epithelial Cell Urine 1+ /LPF
[2021-07-29 20:36] LABS: Troponin-I High Sensitivity < 3.5 ng/L (<3.5-35.0)
[2021-07-29 21:12] LABS: Glucose, Whole Blood 192 mg/dL (60-115)
[2021-07-29] MEDS: Insulin Lispro 100 UNIT/ML 3 ML VIAL SUBCUT (21:26)
[2021-07-29 23:19] VITALS: BP 101/51; PULSE 66; RESP 15; TEMP 36.9; O2SAT 96
[2021-07-30] VITALS (7 sets, daily range): BP systolic 98–132; BP diastolic 54–66; PULSE 63–71; RESP 15–20; TEMP 35.8–37; O2SAT 96–100; BMI 33.4
--- NOTE | 2021-07-30 05:06 | PC.NURSE ---
pt complaining of abd pain. provider aware and medication order. Attempted to medicate patient. patient refused medication.
[2021-07-30] MEDS: 0.9 % Sodium Chloride Flush 3 ML SYRINGE IVFLUSH ×4 (05:08→21:26)
[2021-07-30 07:39] LABS: Glucose, Whole Blood 210 mg/dL (60-115)
[2021-07-30 07:49] LABS: Cholesterol 118 mg/dL; Triglycerides 144 mg/dL
[2021-07-30] MEDS: Cholecalciferol (Vitamin D3) 25 MCG TABLET 100 MCG PO (07:55)
[2021-07-30] MEDS: Aspirin Enteric Coated 81 MG TABLET.DR PO (07:55)
[2021-07-30] MEDS: Multivitamin TABLET 1 TAB PO (07:56)
[2021-07-30] MEDS: Insulin Lispro 100 UNIT/ML 3 ML VIAL SUBCUT ×4 (07:57→21:25)
[2021-07-30] MEDS: Enoxaparin Sodium 40 MG/0.4 ML SYRINGE SUBCUT (07:57)
[2021-07-30 08:03] LABS: HDL Cholesterol 24 mg/dL; LDL Cholesterol Calculated 66 mg/dl
--- NOTE | 2021-07-30 08:30 | CA_ITS ---
Transthoracic Echocardiogram Patient (Last, First, Middle): Casey Sewell K Gender: Male Date of : 1945 Age: 76 Procedure Date: 07/30/2021 Procedure Type: Transthoracic Echocardiogram Location: [facility] [place], [place] Height: 180.34 cm Weight: 108.86 kg BSA: 2.28 m2 Heart Rate: bpm BP: 121 / 60 mmHg Client Service Administrator: Referring MD: Jhonny Choi MD Symptoms: chest pain Study Quality: Fair ECG Rhythm: Sinus Conclusions: - The left ventricular systolic function is normal. The visually estimated ejection fraction is between 55-60%. - There is mild calcification of the aortic valve. - No obvious valvular pathology seen on this study. Findings Procedure Information Contrast agent, definity, is being given per protocol without apparent complications. Left Ventricle Normal left ventricular cavity size. There is mildly increased left ventricular wall thickness. The left ventricular systolic function is normal. The visually estimated ejection fraction is between 55-60%. There is no evidence of regional wall motion abnormalities. Diastolic function is normal for age. Right Ventricle Normal right ventricular cavity size and systolic function. Atria Both atria are normal in size. Aortic Valve There is mild calcification of the aortic valve. There is no aortic valve stenosis. There is no aortic valve regurgitation. Mitral Valve The mitral valve appears normal. There is no mitral valve regurgitation. There is no mitral valve stenosis. Pulmonic Valve The pulmonic valve was not well visualized. Tricuspid Valve Normal tricuspid valve structure. There is trace tricuspid valve regurgitation. The pulmonary artery systolic pressure is normal. Great Vessels The asc aorta is normal in size. Venous The inferior vena cava is normal in size and collapses greater than 50% with inspiration. Pericardium/Pleural There is no evidence of pericardial effusion. Prior Study Comparison No significant change compared to prior study dated: 11/29/2020. Recommendations, Care & Conclusions No obvious valvular pathology seen on this study. Measurements 2D Linear Measurements IVSd: 1.07 0.6-0.9/0.6-1.0 cm LVIDd: 3.72 3.9-5.3/4.2-5.9 cm LVIDd Index: 1.63 2.4-3.2/2.2-3.1 cm/m2 LVIDs: 2.63 2.0-3.6 cm LVPWd: 1.11 0.7-1.1 cm Ao Root: 3.50 2.1-3.5 cm LA Diam: 3.00 2.7-3.8/3.0-4.0 cm LAIDs Index: 1.32 1.5-2.3 cm/m2 LV Mass: 160.06 67-162/88-224 g LV Mass Index: 70.20 43-95/49-115 g/m2 LVOT Diam: 2.30 3.0+(-)1.3 cm Mitral Valve MV Pk E: 0.85 MV PK A: 0.88 MV Decel Time: 253.00 E/A: 1.00 E'Lateral: 11.00 E'Medial: 8.05 E/E' Med: 10.60 E/E' Lat: 7.80 PHT: 74.00 MVA PHT: 2.97 Decel [place]: 3.37 Aortic Valve AoV Pk Adolfo: 1.35 AoV Mn Adolfo: 0.86 AoV VTI: 0.28 AoV Pk Grad: 7.00 Aov Mn Grad: 3.00 FLOWER Cont.VTI: 3.02 LVOT LVOT Pk Adolfo: 0.88 LVOT Mn Adolfo: 0.55 LVOT VTI: 0.21 LVOT Pk Grad: 3.00 LVOT Mn Grad: 2.00 LVOT Diam: 2.30 LVOT Area: 4.15 Diastolic Function MV Pk E: 0.85 MV Pk A: 0.88 E/A: 1.00 E'Medial: 8.05 E/E' Med: 10.60 E' Laterial: 11.00 E/E' Lat: 7.80 Right Ventricle TAPSE (mm): 26.00 Tricuspid Valve TR Pk Adolfo: 2.01 TR Pk Grad: 16.00 Great Vessels Aorta Ao Root-2D: 3.50 2.0-3.7 cm Ao Asc: 3.50 2.1-3.4 cm Pulmonary Valve PV Pk Adolfo: 1.10 Peak PV Grad: 5.00 Updated in Other Vendor System with Status of Final Dakota Javier MD electronically signed on 07/30/2021 3:33:20 PM with status of Final
--- NOTE | 2021-07-30 08:54 | CA_ITS ---
Acquisition Time: 2021-07-31 09:27:59 Total Exercise Time: 00:02:00 Test Indications: Chest Pain Medications: SEE EMAR Protocol: LEXISCAN Max HR: 118 BPM 81% of Pred: 145 BPM Max BP: 136/068 mmHG Max Work Load: 1.0 METS Pharmacological stress test with Lexiscan injection, while sitting and kicking his legs, without anginal symptoms, without arrythmia, with normotensive response to injection, wth nondiagnostic EKG for ischemia. In recovery he reported mild sob, headache that was treated with Aminophylline 75 mg IVP with resolution of symptoms. Nuclear images pending. Test reviewed with Dr Javier. Referred By: Dakota Javier Overread By: AGUSTO YOUNG
--- NOTE | 2021-07-30 09:40 | MHC.CM.PN ---
LAWANDA 07/30/21 Male 76 DX Chest pain. He lives in a 2 family house. He is on one floor with a friend/HCP living on the other floor. The patient is independent ADLs. He uses a walker. He has a Nephrostomy tube rt flank. His friend/HCP changes the dressing. DP home no services private transport VS Acute TX to [facility] for Cardiac cath. The patient will have a stress test today. He will likely need a stress test tomorrow as well. He did have caffeine which r/o the test for today. CM will follow.
--- NOTE | 2021-07-30 10:41 | PM.CNCAR ---
History of Present Illness History of Present Illness Date of Service: 07/30/21 Chief complaint: Chest pain Narrative: This is a cardiology consultation regarding chest pain. Patient states that he has seen a meat slicer many years ago but cannot really say as to why. He can not recall any catheterization but believes he may have undergone a stress test. He was apparently prescribed nitroglycerin one point. In any case the current admission is for chest pain. He states that his job has been quite stressful for the last few days. He was leaving his place of work and all of a sudden started chest tightness while he was walking towards his car. Then had a similar episode of chest tightness when he was climbing stairs. He states that because of some changes at job, he has had a very stressful few days and hence he is not sure if his all anxiety or if he truly was having any chest pain. Otherwise he does have a history of diabetes on insulin. Nonsmoker. Coronary history is unclear but has seen Cardiology many years ago. Review of Systems Review of Systems: Yes all other systems are reviewed and are negative Cardiovascular: Cardiovascular: Reports as per HPI, Reports no additional cardiovascular complaints, Denies acrocyanosis, Denies cool extremities, Denies painful fingertips, Reports chest pain, Denies diaphoresis, Denies syncope, Denies irregular heart rhythm, Denies claudication, Denies leg edema, Denies lightheadedness, Denies palpitations and Denies dyspnea Respiratory: Respiratory: Denies dyspnea Neurologic: Denies syncope Endocrine: Endocrine: Denies palpitations PMFSH Past Medical History Medical History Cholecystectomy planned CKD (chronic kidney disease) Diabetes Diabetic retinopathy History of colon cancer Osteoarthritis Partial nontraumatic amputation of right foot Peripheral neuropathy Pulmonary sarcoidosis PVD (peripheral vascular disease) Renal stones Sarcoidosis Skin cancer Spherocytosis Spinal stenosis Family History Family History Other Mental health disorder Surgical History Surgical History H/O right hemicolectomy History of surgical removal of pilonidal cyst History of tonsillectomy and adenoidectomy Hx of cholecystectomy Hx of colonoscopy Hx of splenectomy Status post laser lithotripsy of ureteral calculus Social History Social History Housing: House Are you a primary menagerie caretaker to a significant other at home: No Do you presently have visiting nurse or other home services: No Alcohol intake: never Patient Tobacco Use Status: Never used Tobacco Second Hand Smoke Exposure: No Use of substances other than those prescribed or required for medical reasons: No Advance Directives: No Advance Directives Information Provided: No service: No Current occupational status: employed and retired Meds Allergies Allergy/AdvReac Type Severity Reaction Status Date / Time penicillamine Allergy Unknown unknown Verified 07/29/21 12:22 Active Medications: Current Medications Aspirin (Aspirin Enteric Coated 81 Mg Tablet.Dr) 81 mg PO DAILY [facility] Last Admin: 07/30/21 07:55 Dose: 81 mg Documented by: Dextrose (Dextrose 50 % 25 Gm/50 Ml Vial) 25 gm IVPUSH Q15M PRN; Protocol PRN Reason: per Hypoglycemia Standing Ord. Enoxaparin Sodium (Enoxaparin Sodium 40 Mg/0.4 Ml Syringe) 40 mg SUBCUT DAILY [facility] Last Admin: 07/30/21 07:57 Dose: 40 mg Documented by: Glucose (Glucose Gel 15 Gm Gel..Gram.) 15 gm PO Q15M PRN; Protocol PRN Reason: per Hypoglycemia Standing Ord. Insulin Human Lispro (Insulin Lispro 100 Unit/Ml 3 Ml Vial) 0 unit SUBCUT QIDACHS [facility]; Protocol Last Admin: 07/30/21 07:57 Dose: 4 unit Documented by: Multivitamins/Vitamin C (Multivitamin Tablet) 1 tab PO DAILY [facility] Last Admin: 07/30/21 07:56 Dose: 1 tab Documented by: Pharmacy Consult (Consult Rx Perform Med Rec) 1 each MISCELLANE ONCE PRN PRN Reason: Consult order Sodium Chloride (0.9 % Sodium Chloride Flush 3 Ml Syringe) 3 ml IVFLUSH QSHIFT [facility] Last Admin: 07/30/21 08:04 Dose: 3 ml Documented by: Vitamin D (Cholecalciferol (Vitamin D3) 25 Mcg Tablet) 100 mcg PO DAILY [facility] Last Admin: 07/30/21 07:55 Dose: 100 mcg Documented by: Home Medications Medication Instructions Recorded Confirmed Last Taken Type zinc 50 mg capsule 50 mg PO DAILY 08/13/20 07/29/21 Unknown History vitamin B complex 1 cap PO DAILY 10/14/20 07/29/21 Unknown History cholecalciferol (vitamin D3) 100 100 mcg PO DAILY 11/20/20 07/29/21 Unknown History mcg (4,000 unit) capsule omega-3 417 mg-dha 120 mg-epa-276 417 cap PO DAILY 04/08/21 07/29/21 Unknown History mg-fish oil 600 mg-tumeric capsule insulin NPH isoph U-100 human 100 20 - 30 unit SUBCUT BID 07/29/21 07/29/21 Unknown History unit/mL subcutaneous suspension (Humulin N NPH U-100 Insulin (isophane susp)) Physical Exam Vital Signs: Vital Signs: Last Vital Signs Temp 96.5 F L 07/30/21 07:30 Pulse 68 07/30/21 07:30 Resp 18 07/30/21 07:30 BP 116/60 07/30/21 07:30 Pulse Ox 98 07/30/21 07:30 Body Mass Index 33.4 Const: General: cooperative and no acute distress HENMT: Other: Unremarkable Neck: Neck: Yes normal visual inspection Chest: Chest palpation & inspection: normal inspection of the chest Resp: Auscultation: clear to auscultation bilaterally, no crackles and no wheezes Cardio: Jugular venous distension: no JVD Palpation: normal PMI Heart sounds: S1 normal heart sound present, S2 normal heart sound present, no gallops, no murmurs and no rubs GI: Palpation (GI): Soft to palpation Back/Spine/Pelvis: Other: unremarkable Skin: General skin exam: no rashes or lesions noted Neuro: Cranial nerves: Yes Other cranial nerve findings present Extrem: General: Yes no clubbing, cyanosis or edema Psych: Mental Status: other Results Labs and Meds Result diagrams: 07/29/21 15:47 07/29/21 15:47 Lab results: Laboratory Results - last 24 hr 07/29/21 07/29/21 07/29/21 15:47 15:47 15:47 WBC 10.8 RBC 4.70 Hgb 14.6 Hct 40.2 L MCV 85.5 MCH 31.1 MCHC 36.3 H RDW 12.7 Plt Count 417 H MPV 11.0 Immature Gran % (Auto) Cancelled Neut % (Auto) Cancelled Lymph % (Auto) Cancelled [place] % (Auto) Cancelled Eos % (Auto) Cancelled Baso % (Auto) Cancelled Lymph # (Auto) Cancelled [place] # (Auto) Cancelled Eos # (Auto) Cancelled Baso # (Auto) Cancelled Abs Immat Gran (auto) Cancelled Absolute Neuts (auto) Cancelled Absolute Nucleated RBC 0.000 Nucleated RBC % (auto) 0.0 Neutrophils % (Manual) 46 Band Neutrophils % 6 H Lymphocytes % (Manual) 31 Atypical Lymphs % (Man) 1 Monocytes % (Manual) 9 Eosinophils % (Manual) 4 Basophils % (Manual) 1 Metamyelocytes % 2 Abs Neuts (Manual) 5.6 Lymphocytes # (Manual) 3.3 Atyp Lymphs # (Manual) 0.1 Monocytes # (Manual) 1.0 Eosinophils # (Manual) 0.4 Basophils # (Manual) 0.1 Metamyelocytes # 0.2 Smudge Cells PRESENT Toxic Vacuolation PRESENT Platelet Estimate INCREASED Plt Morphology Comment NORMAL RBC Morphology NOTED Macrocytosis 1+ (5-14) Hi Cells 2+ (3-5) Acanthocytes (Spur) 1+ (0-2) Schistocytes 1+ (0-2) Sodium 138 Potassium 4.1 Chloride 104 Carbon Dioxide 24 Anion Gap 14 BUN 15 Creatinine 1.16 Estim Creat Clear Calc 69.0 Estimated GFR > 60 POC Glucose Random Glucose 178 H Calcium 9.5 Total Bilirubin 2.1 H AST 28 ALT 22 Alkaline Phosphatase 96 D Troponin I High Sens < 3.5 B-Natriuretic Peptide Total Protein 7.5 Albumin 4.0 Triglycerides Cholesterol LDL Cholesterol, Calc HDL Cholesterol Lipase 15 Urine Color Urine Appearance Urine pH Ur Specific [place] Urine Protein Urine Glucose (UA) Urine Ketones Urine Blood Urine Nitrite Ur Leukocyte Esterase Urine RBC Urine WBC Ur Squamous Epith Cells Amorphous Sediment Urine Bacteria Urine Mucus COVID-19 (KASH) COVID-19 Clin Com 07/29/21 07/29/21 07/29/21 15:47 15:47 19:26 WBC RBC Hgb Hct MCV MCH MCHC RDW Plt Count MPV Immature Gran % (Auto) Neut % (Auto) Lymph % (Auto) [place] % (Auto) Eos % (Auto) Baso % (Auto) Lymph # (Auto) [place] # (Auto) Eos # (Auto) Baso # (Auto) Abs Immat Gran (auto) Absolute Neuts (auto) Absolute Nucleated RBC Nucleated RBC % (auto) Neutrophils % (Manual) Band Neutrophils % Lymphocytes % (Manual) Atypical Lymphs % (Man) Monocytes % (Manual) Eosinophils % (Manual) Basophils % (Manual) Metamyelocytes % Abs Neuts (Manual) Lymphocytes # (Manual) Atyp Lymphs # (Manual) Monocytes # (Manual) Eosinophils # (Manual) Basophils # (Manual) Metamyelocytes # Smudge Cells Toxic Vacuolation Platelet Estimate Plt Morphology Comment RBC Morphology Macrocytosis Nitro Cells Acanthocytes (Spur) Schistocytes Sodium Potassium Chloride Carbon Dioxide Anion Gap BUN Creatinine Estim Creat Clear Calc Estimated GFR POC Glucose Random Glucose Calcium Total Bilirubin AST ALT Alkaline Phosphatase Troponin I High Sens 3.6 B-Natriuretic Peptide 51 Total Protein Albumin Triglycerides Cholesterol LDL Cholesterol, Calc HDL Cholesterol Lipase Urine Color Urine Appearance Urine pH Ur Specific [place] Urine Protein Urine Glucose (UA) Urine Ketones Urine Blood Urine Nitrite Ur Leukocyte Esterase Urine RBC Urine WBC Ur Squamous Epith Cells Amorphous Sediment Urine Bacteria Urine Mucus COVID-19 (KASH) Negative COVID-19 Clin Com See Note 07/29/21 07/29/21 07/29/21 19:30 20:10 21:08 WBC RBC Hgb Hct MCV MCH MCHC RDW Plt Count MPV Immature Gran % (Auto) Neut % (Auto) Lymph % (Auto) [place] % (Auto) Eos % (Auto) Baso % (Auto) Lymph # (Auto) [place] # (Auto) Eos # (Auto) Baso # (Auto) Abs Immat Gran (auto) Absolute Neuts (auto) Absolute Nucleated RBC Nucleated RBC % (auto) Neutrophils % (Manual) Band Neutrophils % Lymphocytes % (Manual) Atypical Lymphs % (Man) Monocytes % (Manual) Eosinophils % (Manual) Basophils % (Manual) Metamyelocytes % Abs Neuts (Manual) Lymphocytes # (Manual) Atyp Lymphs # (Manual) Monocytes # (Manual) Eosinophils # (Manual) Basophils # (Manual) Metamyelocytes # Smudge Cells Toxic Vacuolation Platelet Estimate Plt Morphology Comment RBC Morphology Macrocytosis Hi Cells Acanthocytes (Spur) Schistocytes Sodium Potassium Chloride Carbon Dioxide Anion Gap BUN Creatinine Estim Creat Clear Calc Estimated GFR POC Glucose 192 H Random Glucose Calcium Total Bilirubin AST ALT Alkaline Phosphatase Troponin I High Sens < 3.5 B-Natriuretic Peptide Total Protein Albumin Triglycerides Cholesterol LDL Cholesterol, Calc HDL Cholesterol Lipase Urine Color YELLOW Urine Appearance CLEAR Urine pH 6.5 Ur Specific [place] <= 1.005 Urine Protein NEG Urine Glucose (UA) NEG Urine Ketones NEG Urine Blood 1+ H Urine Nitrite POS H Ur Leukocyte Esterase 3+ H Urine RBC 0-2 Urine WBC 10-14 H Ur Squamous Epith Cells 1+ Amorphous Sediment TRACE Urine Bacteria 1+ Urine Mucus 1+ COVID-19 (KASH) COVID-19 Clin Com 07/30/21 07/30/21 07:05 07:34 WBC RBC Hgb Hct MCV MCH MCHC RDW Plt Count MPV Immature Gran % (Auto) Neut % (Auto) Lymph % (Auto) [place] % (Auto) Eos % (Auto) Baso % (Auto) Lymph # (Auto) [place] # (Auto) Eos # (Auto) Baso # (Auto) Abs Immat Gran (auto) Absolute Neuts (auto) Absolute Nucleated RBC Nucleated RBC % (auto) Neutrophils % (Manual) Band Neutrophils % Lymphocytes % (Manual) Atypical Lymphs % (Man) Monocytes % (Manual) Eosinophils % (Manual) Basophils % (Manual) Metamyelocytes % Abs Neuts (Manual) Lymphocytes # (Manual) Atyp Lymphs # (Manual) Monocytes # (Manual) Eosinophils # (Manual) Basophils # (Manual) Metamyelocytes # Smudge Cells Toxic Vacuolation Platelet Estimate Plt Morphology Comment RBC Morphology Macrocytosis Nitro Cells Acanthocytes (Spur) Schistocytes Sodium Potassium Chloride Carbon Dioxide Anion Gap BUN Creatinine Estim Creat Clear Calc Estimated GFR POC Glucose 210 H Random Glucose Calcium Total Bilirubin AST ALT Alkaline Phosphatase Troponin I High Sens B-Natriuretic Peptide Total Protein Albumin Triglycerides 144 Cholesterol 118 D LDL Cholesterol, Calc 66 HDL Cholesterol 24 D Lipase Urine Color Urine Appearance Urine pH Ur Specific [place] Urine Protein Urine Glucose (UA) Urine Ketones Urine Blood Urine Nitrite Ur Leukocyte Esterase Urine RBC Urine WBC Ur Squamous Epith Cells Amorphous Sediment Urine Bacteria Urine Mucus COVID-19 (AK[facility]) COVID-19 Clin Com ECG Interpretation: EKG with sinus rhythm, 68/min, leftward axis and no ischemic changes. Imaging Radiologist's impression: Impressions Chest X-Ray 07/29/21 14:51 IMPRESSION: Unremarkable chest exam. Assessment and Plan (1) Precordial chest pain: Status: Acute (2) Type 2 diabetes mellitus with unspecified complications: Status: Acute EKG without any clear ischemic findings. Troponins are unremarkable. However, he has had 2 episodes of exertional chest pain within a day. He is a diabetic on insulin. At his age, need to exclude any hemodynamically significant coronary disease. We can start with a stress perfusion imaging study. He has a walker but he would still like to try the treadmill 1st. Echocardiogram for cardiac function assessment any wall motion abnormalities. We will follow up with you. Procedures Date of Service Date of Service: 07/30/21
[2021-07-30 12:21] LABS: Glucose, Whole Blood 187 mg/dL (60-115)
--- NOTE | 2021-07-30 15:05 | P.PNIM_ITS ---
Subjective Subjective Date of Service: 07/30/21 Interval History: chest pain Review of Systems Chest pain seems to be improving, denies any shortness of breath or abdominal pain or fever chills or nausea vomiting. Physical Exam Vital Signs: Vital Signs: Last Vital Signs Temp 97.8 F 07/30/21 12:00 Pulse 67 07/30/21 12:00 Resp 15 07/30/21 12:00 BP 98/54 L 07/30/21 12:00 Pulse Ox 99 07/30/21 12:00 Body Mass Index 33.4 Physical exam: Appearance: Alert.? Oriented X3.? not in distress.? Eyes: Pupils equal, round and reactive to light.? Sclera nonicteric.? ENT: Pharynx normal.? Moist mucous membranes. cvs: rrr, [id number] , no murmur res: clear to auscultation ,no rhonchii or wheezing abd: no rebound or guarding ,nt, bs present. ext pulses present , no cyanosis ,Gait well balanced well coordinated. neuro: axo3 , nonfocal. Objective Data Active Medications Aspirin (Aspirin Enteric Coated 81 Mg Tablet.) 81 mg PO DAILY [facility] Last Admin: 07/30/21 07:55 Dose: 81 mg Documented by: ROSARIO Dextrose (Dextrose 50 % 25 Gm/50 Ml Vial) 25 gm IVPUSH Q15M PRN; Protocol PRN Reason: per Hypoglycemia Standing Ord. Enoxaparin Sodium (Enoxaparin Sodium 40 Mg/0.4 Ml Syringe) 40 mg SUBCUT DAILY [facility] Last Admin: 07/30/21 07:57 Dose: 40 mg Documented by: ROSARIO Glucose (Glucose Gel 15 Gm Gel..Gram.) 15 gm PO Q15M PRN; Protocol PRN Reason: per Hypoglycemia Standing Ord. Insulin Human Lispro (Insulin Lispro 100 Unit/Ml 3 Ml Vial) 0 unit SUBCUT QIDACHS [facility]; Protocol Last Admin: 07/30/21 12:21 Dose: 2 unit Documented by: ROSARIO Multivitamins/Vitamin C (Multivitamin Tablet) 1 tab PO DAILY [facility] Last Admin: 07/30/21 07:56 Dose: 1 tab Documented by: ROSARIO Pharmacy Consult (Consult Rx Perform Med Rec) 1 each MISCELLANE ONCE PRN PRN Reason: Consult order Sodium Chloride (0.9 % Sodium Chloride Flush 3 Ml Syringe) 3 ml IVFLUSH QSHIFT [facility] Last Admin: 07/30/21 08:04 Dose: 3 ml Documented by: ROSARIO Vitamin D (Cholecalciferol (Vitamin D3) 25 Mcg Tablet) 100 mcg PO DAILY [facility] Last Admin: 07/30/21 07:55 Dose: 100 mcg Documented by: ROSARIO Labs CBC & Chem 7: 07/29/21 15:47 07/29/21 15:47 Labs: Laboratory Results - last 24 hr 07/29/21 07/29/21 07/29/21 15:47 15:47 15:47 MCV 85.5 MCH 31.1 MCHC 36.3 H RDW 12.7 Plt Count 417 H MPV 11.0 Immature Gran % (Auto) Cancelled Neut % (Auto) Cancelled Lymph % (Auto) Cancelled Reynolds % (Auto) Cancelled Eos % (Auto) Cancelled Baso % (Auto) Cancelled Lymph # (Auto) Cancelled Reynolds # (Auto) Cancelled Eos # (Auto) Cancelled Baso # (Auto) Cancelled Abs Immat Gran (auto) Cancelled Absolute Neuts (auto) Cancelled Absolute Nucleated RBC 0.000 Nucleated RBC % (auto) 0.0 Neutrophils % (Manual) 46 Band Neutrophils % 6 H Lymphocytes % (Manual) 31 Atypical Lymphs % (Man) 1 Monocytes % (Manual) 9 Eosinophils % (Manual) 4 Basophils % (Manual) 1 Metamyelocytes % 2 Abs Neuts (Manual) 5.6 Lymphocytes # (Manual) 3.3 Atyp Lymphs # (Manual) 0.1 Monocytes # (Manual) 1.0 Eosinophils # (Manual) 0.4 Basophils # (Manual) 0.1 Metamyelocytes # 0.2 Smudge Cells PRESENT Toxic Vacuolation PRESENT Platelet Estimate INCREASED Plt Morphology Comment NORMAL RBC Morphology NOTED Macrocytosis 1+ (5-14) Goodell Cells 2+ (3-5) Acanthocytes (Spur) 1+ (0-2) Schistocytes 1+ (0-2) Anion Gap 14 Estim Creat Clear Calc 69.0 Estimated GFR > 60 POC Glucose Random Glucose 178 H Calcium 9.5 Total Bilirubin 2.1 H AST 28 ALT 22 Alkaline Phosphatase 96 D Troponin I High Sens < 3.5 B-Natriuretic Peptide Total Protein 7.5 Albumin 4.0 Triglycerides Cholesterol LDL Cholesterol, Calc HDL Cholesterol Lipase 15 Urine Color Urine Appearance Urine pH Ur Specific [place] Urine Protein Urine Glucose (UA) Urine Ketones Urine Blood Urine Nitrite Ur Leukocyte Esterase Urine RBC Urine WBC Ur Squamous Epith Cells Amorphous Sediment Urine Bacteria Urine Mucus COVID-19 ([facility]) COVID-19 Clin Com 07/29/21 07/29/21 07/29/21 15:47 15:47 19:26 MCV MCH MCHC RDW Plt Count MPV Immature Gran % (Auto) Neut % (Auto) Lymph % (Auto) Reynolds % (Auto) Eos % (Auto) Baso % (Auto) Lymph # (Auto) Reynolds # (Auto) Eos # (Auto) Baso # (Auto) Abs Immat Gran (auto) Absolute Neuts (auto) Absolute Nucleated RBC Nucleated RBC % (auto) Neutrophils % (Manual) Band Neutrophils % Lymphocytes % (Manual) Atypical Lymphs % (Man) Monocytes % (Manual) Eosinophils % (Manual) Basophils % (Manual) Metamyelocytes % Abs Neuts (Manual) Lymphocytes # (Manual) Atyp Lymphs # (Manual) Monocytes # (Manual) Eosinophils # (Manual) Basophils # (Manual) Metamyelocytes # Smudge Cells Toxic Vacuolation Platelet Estimate Plt Morphology Comment RBC Morphology Macrocytosis Goodell Cells Acanthocytes (Spur) Schistocytes Anion Gap Estim Creat Clear Calc Estimated GFR POC Glucose Random Glucose Calcium Total Bilirubin AST ALT Alkaline Phosphatase Troponin I High Sens 3.6 B-Natriuretic Peptide 51 Total Protein Albumin Triglycerides Cholesterol LDL Cholesterol, Calc HDL Cholesterol Lipase Urine Color Urine Appearance Urine pH Ur Specific [place] Urine Protein Urine Glucose (UA) Urine Ketones Urine Blood Urine Nitrite Ur Leukocyte Esterase Urine RBC Urine WBC Ur Squamous Epith Cells Amorphous Sediment Urine Bacteria Urine Mucus COVID-19 ([facility]ASH) Negative COVID-19 Clin Com See Note 07/29/21 07/29/21 07/29/21 19:30 20:10 21:08 MCV MCH MCHC RDW Plt Count MPV Immature Gran % (Auto) Neut % (Auto) Lymph % (Auto) Reynolds % (Auto) Eos % (Auto) Baso % (Auto) Lymph # (Auto) Reynolds # (Auto) Eos # (Auto) Baso # (Auto) Abs Immat Gran (auto) Absolute Neuts (auto) Absolute Nucleated RBC Nucleated RBC % (auto) Neutrophils % (Manual) Band Neutrophils % Lymphocytes % (Manual) Atypical Lymphs % (Man) Monocytes % (Manual) Eosinophils % (Manual) Basophils % (Manual) Metamyelocytes % Abs Neuts (Manual) Lymphocytes # (Manual) Atyp Lymphs # (Manual) Monocytes # (Manual) Eosinophils # (Manual) Basophils # (Manual) Metamyelocytes # Smudge Cells Toxic Vacuolation Platelet Estimate Plt Morphology Comment RBC Morphology Macrocytosis Hi Cells Acanthocytes (Spur) Schistocytes Anion Gap Estim Creat Clear Calc Estimated GFR POC Glucose 192 H Random Glucose Calcium Total Bilirubin AST ALT Alkaline Phosphatase Troponin I High Sens < 3.5 B-Natriuretic Peptide Total Protein Albumin Triglycerides Cholesterol LDL Cholesterol, Calc HDL Cholesterol Lipase Urine Color YELLOW Urine Appearance CLEAR Urine pH 6.5 Ur Specific [place] <= 1.005 Urine Protein NEG Urine Glucose (UA) NEG Urine Ketones NEG Urine Blood 1+ H Urine Nitrite POS H Ur Leukocyte Esterase 3+ H Urine RBC 0-2 Urine WBC 10-14 H Ur Squamous Epith Cells 1+ Amorphous Sediment TRACE Urine Bacteria 1+ Urine Mucus 1+ COVID-19 ([facility]) COVID-19 Clin Com 07/30/21 07/30/21 07/30/21 07:05 07:34 12:17 MCV MCH MCHC RDW Plt Count MPV Immature Gran % (Auto) Neut % (Auto) Lymph % (Auto) Reynolds % (Auto) Eos % (Auto) Baso % (Auto) Lymph # (Auto) Reynolds # (Auto) Eos # (Auto) Baso # (Auto) Abs Immat Gran (auto) Absolute Neuts (auto) Absolute Nucleated RBC Nucleated RBC % (auto) Neutrophils % (Manual) Band Neutrophils % Lymphocytes % (Manual) Atypical Lymphs % (Man) Monocytes % (Manual) Eosinophils % (Manual) Basophils % (Manual) Metamyelocytes % Abs Neuts (Manual) Lymphocytes # (Manual) Atyp Lymphs # (Manual) Monocytes # (Manual) Eosinophils # (Manual) Basophils # (Manual) Metamyelocytes # Smudge Cells Toxic Vacuolation Platelet Estimate Plt Morphology Comment RBC Morphology Macrocytosis Goodell Cells Acanthocytes (Spur) Schistocytes Anion Gap Estim Creat Clear Calc Estimated GFR POC Glucose 210 H 187 H Random Glucose Calcium Total Bilirubin AST ALT Alkaline Phosphatase Troponin I High Sens B-Natriuretic Peptide Total Protein Albumin Triglycerides 144 Cholesterol 118 D LDL Cholesterol, Calc 66 HDL Cholesterol 24 D Lipase Urine Color Urine Appearance Urine pH Ur Specific [place] Urine Protein Urine Glucose (UA) Urine Ketones Urine Blood Urine Nitrite Ur Leukocyte Esterase Urine RBC Urine WBC Ur Squamous Epith Cells Amorphous Sediment Urine Bacteria Urine Mucus COVID-19 ([facility]) COVID-19 Clin Com Microbiology Microbiology Results: Microbiology 07/29/21 Unknown Urine Culture - Preliminary Urine clean catch - Clean Catch Midstream Culture too young to evaluate. Assessment and Plan (1) Chest pain: Status: Acute Assessment and Plan: 1. chest pain- pain is mainly with excersion? and under stress situation yesterday No new episode Troponin x2 neg con inue aspirin statin echo seen by cardio-stress test in am , discussed with the patient and the staff in detail avoid caffeinated products. 2. Diabetes:fs 180-200 Fingersticks with sliding scale Diabetic diet 3. anxiety: care team eval 3.dvt prophylax with lovenox. Quality Stroke Does the patient have a stroke diagnosis?: No VTE Prior VTE?: No VTE Risk Level:: Medical - moderate - high VTE Device Contraindication: N/A - Device Ordered VTE Drug Contraindication: N/A - Med Ordered
[2021-07-30 16:53] LABS: Glucose, Whole Blood 176 mg/dL (60-115)
[2021-07-30] MEDS: Omeprazole 20 MG CAPSULE.DR PO (18:51)
[2021-07-30 20:56] LABS: Glucose, Whole Blood 207 mg/dL (60-115)
[2021-07-31 04:00] VITALS: BP 128/63; PULSE 64; RESP 20; TEMP 37.1; O2SAT 98
[2021-07-31] MEDS: Omeprazole 20 MG CAPSULE.DR PO (05:21)
[2021-07-31 07:36] LABS: Glucose, Whole Blood 197 mg/dL (60-115)
[2021-07-31 07:38] VITALS: BP 113/55; PULSE 73; RESP 18; TEMP 36.5; O2SAT 98
[2021-07-31] MEDS: Insulin Lispro 100 UNIT/ML 3 ML VIAL SUBCUT ×2 (08:27→12:08)
[2021-07-31] MEDS: Enoxaparin Sodium 40 MG/0.4 ML SYRINGE SUBCUT (08:27)
[2021-07-31] MEDS: Multivitamin TABLET 1 TAB PO (08:28)
[2021-07-31] MEDS: Aspirin Enteric Coated 81 MG TABLET.DR PO (08:28)
[2021-07-31] MEDS: Cholecalciferol (Vitamin D3) 25 MCG TABLET 100 MCG PO (08:28)
[2021-07-31] MEDS: 0.9 % Sodium Chloride Flush 3 ML SYRINGE IVFLUSH (08:28)
--- NOTE | 2021-07-31 10:20 | PM.PNCARD ---
Subjective Subjective Date of Service: 07/31/21 Interval history: Some nausea after breakfast but otherwise OK. Review of Systems Review of Systems Yes all other systems are reviewed and are negative Cardiovascular: Reports as per HPI, Reports no additional cardiovascular complaints, Denies acrocyanosis, Denies cool extremities, Denies painful fingertips, Reports chest pain, Denies diaphoresis, Denies syncope, Denies irregular heart rhythm, Denies claudication, Denies leg edema, Denies lightheadedness, Denies palpitations and Denies dyspnea Respiratory: Denies dyspnea Denies syncope Endocrine: Denies palpitations Physical Exam Vital Signs: Last Vital Signs Temp 97.7 F 07/31/21 07:38 Pulse 73 07/31/21 07:38 Resp 18 07/31/21 07:38 BP 113/55 L 07/31/21 07:38 Pulse Ox 98 07/31/21 07:38 Body Mass Index 33.4 Const General: cooperative and no acute distress HENTX Other: Unremarkable Neck Neck: Yes normal visual inspection Chest Chest palpation & inspection: normal inspection of the chest Resp Auscultation: clear to auscultation bilaterally, no crackles and no wheezes Cardio Jugular venous distension: no JVD Palpation: normal PMI Heart sounds: S1 normal heart sound present, S2 normal heart sound present, no gallops, no murmurs and no rubs GI Palpation (GI): Soft to palpation Back/Spine/Pelvis Other: unremarkable Skin General skin exam: no rashes or lesions noted Neuro Cranial nerves: Yes Other cranial nerve findings present Extrem General: Yes no clubbing, cyanosis or edema Psych Mental Status: other Results Labs and Meds Result diagrams: 07/29/21 15:47 07/29/21 15:47 Lab results: Laboratory Results - last 24 hr 07/30/21 07/30/21 07/30/21 12:17 16:27 20:46 POC Glucose 187 H 176 H 207 H 07/31/21 07:06 POC Glucose 197 H Progress Note: A&P Assessment and plan (1) Precordial chest pain: Status: Acute (2) Type 2 diabetes mellitus with unspecified complications: Status: Acute Assessment and Plan: EKG without any clear ischemic findings. Troponins are unremarkable. However, he has had 2 episodes of exertional chest pain within a day. He is a diabetic on insulin. At his age, need to exclude any hemodynamically significant coronary disease. Echocardiogram with preserved LVEF and otherwise unremarkable. Await perfusion imaging findings. Fall Risk Details Current Medications: Current Medications Aspirin (Aspirin Enteric Coated 81 Mg Tablet.) 81 mg PO DAILY [facility] Last Admin: 07/31/21 08:28 Dose: 81 mg Documented by: Dextrose (Dextrose 50 % 25 Gm/50 Ml Vial) 25 gm IVPUSH Q15M PRN; Protocol PRN Reason: per Hypoglycemia Standing Ord. Enoxaparin Sodium (Enoxaparin Sodium 40 Mg/0.4 Ml Syringe) 40 mg SUBCUT DAILY [facility] Last Admin: 07/31/21 08:27 Dose: 40 mg Documented by: Glucose (Glucose Gel 15 Gm Gel..Gram.) 15 gm PO Q15M PRN; Protocol PRN Reason: per Hypoglycemia Standing Ord. Insulin Human Lispro (Insulin Lispro 100 Unit/Ml 3 Ml Vial) 0 unit SUBCUT QIDACHS [facility]; Protocol Last Admin: 07/31/21 08:27 Dose: 2 unit Documented by: Multivitamins/Vitamin C (Multivitamin Tablet) 1 tab PO DAILY [facility] Last Admin: 07/31/21 08:28 Dose: 1 tab Documented by: Omeprazole (Omeprazole 20 Mg Capsule.) 20 mg PO DAILY@0630 [facility] Last Admin: 07/31/21 05:21 Dose: 20 mg Documented by: Pharmacy Consult (Consult Rx Perform Med Rec) 1 each MISCELLANE ONCE PRN PRN Reason: Consult order Sodium Chloride (0.9 % Sodium Chloride Flush 3 Ml Syringe) 3 ml IVFLUSH QSHIFT [facility] Last Admin: 07/31/21 08:28 Dose: 3 ml Documented by: Vitamin D (Cholecalciferol (Vitamin D3) 25 Mcg Tablet) 100 mcg PO DAILY [facility] Last Admin: 07/31/21 08:28 Dose: 100 mcg Documented by: Time Spent With Patient Time: Total time spent is greater than 50% in coordination of care (as documented) at patient's floor/unit and/or counseling patient: Time with patient: less than 15 minutes Progress Note: Quality Stroke Does the patient have a stroke diagnosis?: No Procedures Date of Service Date of Service: 07/31/21
[2021-07-31 11:45] VITALS: BP 106/63; PULSE 81; RESP 18; TEMP 36.6; O2SAT 100
[2021-07-31 11:52] LABS: Glucose, Whole Blood 235 mg/dL (60-115)
[2021-07-31 15:07] VITALS: BP 132/72; PULSE 75; RESP 20; TEMP 36.3; O2SAT 99
--- NOTE | 2021-07-31 15:41 | PM.DS ---
DS: Providers Provider Date of Service: 07/31/21 Date of admission: 07/29/21 18:52 Date of discharge: 07/31/21 Primary care physician: MARK Buenrostro Consults: 07/29/21 19:05 Consult to Care Team Routine Comment: Reason for consultation: anxiety 07/30/21 08:45 Consult to Cardiology Routine Consulting Provider: Dakota Javier Reason for consultation: chest pain Has provider been notified: No DS: Diagnosis Discharge Diagnosis (1) Precordial chest pain: Status: Acute (2) Type 2 diabetes mellitus with unspecified complications: Status: Acute DS: Summary Hospital Course Hospital Course: 76-year-old male past medical history significant for diabetes, colon cancers/p resection 2years back , nephrolithiasis also has nephrostomy tube which was placed in 1 and half year ago,? CKD, PAD, diabetic neuropathy presents to the emergency department with 2 episodes of chest pain, and weakness . He said yesterday while he was at school was most stressful day for him and after school as he was leaving - any started feeling chest tightness while he was walking to his car. ? He states at the same time he began to feel short of breath with the exertion. ?He felt 2nd episode of similar symptoms when he was climbing is stairs. ?Today he also complains of generalized weakness, discomfort to his right upper quadrant which is intermittent in nature, and nonradiating? and slight chest pressure.? He also states he feels a little bit anxious.? He said chest pain is improved-currently does not have any symptoms. Denies any abdominal pain or fever or chills or nausea or vomiting Denies any cough. Hospital course: Patient came with chest pain-cardiac enzyme and negative, seen by Cardiology: His echo and cardiac stress test both seems fine. Patient is going home, we will add baby aspirin since has multiple cardiac risk factors. Follow-up outpatient with PCP for further management. Above management discussed with the patient in detail length he understand and in agreement with the above plan, time spent 50 minutes and 50% time spent on counseling. Significant findings: As above. Procedures performed: None. Treatment and response: As above. Complications: None. Time Spent with Patient Time attestation: Total time spent providing and/or coordinating discharge services: Discharge coordination time: Greater than 30 minutes Quality: Stroke Does the patient have a stroke diagnosis?: No Physical Exam Vital Signs: Vital Signs: Last Vital Signs Temp 97.3 F 07/31/21 15:07 Pulse 75 07/31/21 15:07 Resp 20 07/31/21 15:07 BP 132/72 07/31/21 15:07 Pulse Ox 99 07/31/21 15:07 Body Mass Index 33.4 Appearance: Alert.? Oriented X3.? not in distress.? Eyes: Pupils equal, round and reactive to light.? Sclera nonicteric.? ENT: Pharynx normal.? Moist mucous membranes. cvs: rrr, [id number] , no murmur res: clear to auscultation ,no rhonchii or wheezing abd: no rebound or guarding ,nt, bs present. ext pulses present , no cyanosis ,Gait well balanced well coordinated. neuro: axo3 , nonfocal. DS: Data Data Completed and Pending Labs on day of discharge: Laboratory Results - last 24 hr 07/30/21 07/30/21 07/31/21 16:27 20:46 07:06 POC Glucose 176 H 207 H 197 H 07/31/21 11:49 POC Glucose 235 H Discharge Plan Discharge Patient Disposition: Home, Self-Care Discharge Diagnosis: chest pain Referrals: Stuart Will LABOR DELIVERY SPECIALIST- [Primary Care Provider] - 2 days Discharge Medications: New aspirin 81 mg Tablet,Delayed Release (Dr/Ec) 81 mg PO DAILY Qty: 30 RF: 0 omeprazole 20 mg Capsule,Delayed Release(Dr/Ec) 20 mg PO DAILY@0630 Qty: 30 RF: 0 Continued ketoconazole 2 % cream 1 appl topical DAILY 90 Days Qty: 60 RF: 1 vitamin B complex Capsule 1 cap PO DAILY RF: 0 zinc 50 mg Capsule 50 mg PO DAILY RF: 0 Humulin N NPH U-100 Insulin 100 unit/mL suspension 20 - 30 unit subcut BID RF: 0 cholecalciferol (vitamin D3) 100 mcg (4,000 unit) capsule 100 mcg PO DAILY RF: 0 omega 7-bci-rol-fish-turmeric 417 mg-120 mg- 276 mg-600 mg capsule 417 cap PO DAILY RF: 0 Discharge Orders: Discharge Order (Routine); Ordered 07/31/21 Ordered By: Jhonny Choi Diet: advance to usual diet, low fat, low cholesterol and low salt diet Activity on Discharge: As tolerated Stand Alone Forms: Patient Portal Discharge page, Work/School Release Care Plan Goals: Patient came with chest pain-cardiac enzyme and negative, seen by Cardiology: His echo and cardiac stress test both seems fine. Patient is going home, we will add baby aspirin since has multiple cardiac risk factors. Follow-up outpatient with PCP for further management. Health Concerns: As above. Plan of Treatment: As above. Assessment: As above.
[2021-07-31 16:12] LABS: Glucose, Whole Blood 183 mg/dL (60-115)
--- NOTE | 2021-07-31 16:12 | MHC.CM.PN ---
Patient dc to home self care. Patient will arrange for transportation
== END 2021-07-31 16:30 | disposition home or self-care (01) ==
LOC: HO.ED 17:56 → HO.EDOVER 19:10 → HO.IMC 07-30 05:08
PROVIDERS: Admitting Provider Internal Medicine; Emergency Provider Emergency Medicine Emergency Medical Services; PCP Nurse Practitioner Family; Visit Provider Internal Medicine
DX: R07.2 Precordial pain (principal); I25.110 Atherosclerotic heart disease of native coronary artery with unstable angina pectoris; E11.65 Type 2 diabetes mellitus with hyperglycemia; E11.22 Type 2 diabetes mellitus with diabetic chronic kidney disease; E11.42 Type 2 diabetes mellitus with diabetic polyneuropathy; E11.319 Type 2 diabetes mellitus with unspecified diabetic retinopathy without macular edema; N18.9 Chronic kidney disease, unspecified; D86.9 Sarcoidosis, unspecified; I73.9 Peripheral vascular disease, unspecified; F41.9 Anxiety disorder, unspecified; Z20.822 Contact with and (suspected) exposure to COVID-19; Z90.49 Acquired absence of other specified parts of digestive tract; Z89.431 Acquired absence of right foot; Z88.8 Allergy status to other drugs, medicaments and biological substances; Z79.4 Long term (current) use of insulin; Z79.899 Other long term (current) drug therapy
CPT/HCPCS: 36415; 71046; 78452; 80053; 80061; 81001; 82947; 83690; 83880; 84484; 85007; 85025; 85027; 87086; 87635; 93005; 93017; 93306; 96372; 96374; 96375; 99205; 99215; 99219; 99225; 99285; A9500; J0280; J1650; J2785; Q9957

== ENCOUNTER 2021-09-08 12:00 | Outpatient (REF) | payer BC, SELFPAY ==
[2021-09-08 14:18] LABS: Alanine Aminotransferase 20 U/L (0-40); Albumin Level 3.9 g/dL (3.5-5.0); Alkaline Phosphatase 96 U/L (39-117); Anion Gap 15 (12-20); Aspartate Amino Transferase 21 U/L (5-37); Bilirubin Total 0.9 mg/dL (0.0-1.0); Blood Urea Nitrogen 22 mg/dL (9-16); Carbon Dioxide 22 mmol/L (22-29); Chloride 105 mmol/L (96-108); Cholesterol 135 mg/dL; Estimated Glomerular Filt Rate > 60; Glucose Fasting 111 mg/dL (60-99); HDL Cholesterol 37 mg/dL; LDL Cholesterol Calculated 80 mg/dl; Potassium 4.2 mmol/L (3.3-5.1); Sodium 138 mmol/L (135-145); Total Protein 7.4 g/dL (6.5-8.0); Triglycerides 94 mg/dL
[2021-09-08 14:28] LABS: Estimated Average Glucose 134 mg/dL; Hemoglobin A1c % 6.3 %
[2021-09-08 14:43] LABS: TSH reflex Free T4 1.65 uIU/mL (0.32-4.0); Vitamin D 25-OH Total 58.5 ng/mL (>30)
[2021-09-08 15:09] LABS: Creatinine Urine 73.04 mg/dL; Microalbum/Creatinine Ratio Ur 725.6 ug/mg cr
== END 2021-09-08 12:01 | disposition home or self-care (01) ==
LOC: HO.HMGCLDS 12:00
PROVIDERS: Visit Provider Nurse Practitioner Family
DX: E11.8 Type 2 diabetes mellitus with unspecified complications (principal)
CPT/HCPCS: 36415; 80053; 80061; 82043; 82306; 83036; 84443

== ENCOUNTER 2021-09-25 09:05 | Outpatient (REF) | payer BC, SELFPAY ==
[2021-09-25 11:22] LABS: MANUAL DIFF FLAG NO
[2021-09-25 11:24] LABS: Appearance Urine HAZY; Color Urine YELLOW; Glucose Urine UA NEG (NEG); Leukocyte Esterase Urine 3+ (NEG); Nitrite Urine POS (NEG); Specific Gravity - Urine <= 1.005 (1.005-1.025); UACC Culture Trigger YES; Urine Blood 2+ (NEG); Urine Ketones NEG (NEG); Urine Protein 2+ MG/DL (NEG-TRACE)
[2021-09-25 11:33] LABS: Basophils Absolute Auto 0.1 X10*3/uL (0.0-0.2); Basophils Percent Auto 0.8 % (0-2); Eosinophils Absolute Auto 0.3 X10*3/uL (0.0-0.4); Eosinophils Percent Auto 3.8 % (0-4); Hematocrit 41.2 % (42.0-52.0); Hemoglobin 14.4 g/dl (14.0-18.0); Imm Gran Abs Auto 0.03 X10*3/uL (0.00-0.03); Imm Gran Pct Auto 0.4 % (0.0-0.4); Lymphocytes Absolute Auto 2.8 X10*3/uL (1.2-4.9); Mean Corpuscular Hemoglobin 30.6 pg (27.0-33.0); Mean Corpuscular Volume 87.5 fL (80.0-98.0); Mean Platelet Volume 11.4 fL (9.4-12.4); Monocytes Absolute Auto 0.9 X10*3/uL (0.1-1.2); Monocytes Percent Auto 11.8 % (2-11); Neutrophils Absolute Auto 3.5 x10*3/uL (2.0-8.3); Neutrophils Percent Auto 46.2 % (45-73); Platelet Count 380 X10*3/uL (160-400); Red Blood Count 4.71 X10*6/uL (4.60-5.80); Red Cell Distribution Width 12.8 % (11.0-16.0); White Blood Count 7.5 X10*3/uL (4.8-10.8)
[2021-09-25 11:41] LABS: Prothrombin Time 11.6 SEC (9.9-13.0)
[2021-09-25 12:07] LABS: TSH reflex Free T4 1.29 uIU/mL (0.32-4.0)
[2021-09-25 12:44] LABS: Cholesterol 126 mg/dL; HDL Cholesterol 32 mg/dL; LDL Cholesterol Calculated 77 mg/dl; Triglycerides 87 mg/dL
[2021-09-25 13:28] LABS: Amorphous Sediment Urine 4+ /LPF; Bacteria Urine 1+ /LPF; WBC Clumps Urine NOTED; WBC Urine 30-49 /HPF (0-4)
== END 2021-09-25 09:06 | disposition home or self-care (01) ==
LOC: HO.HMGCLDS 09:05
PROVIDERS: PCP Nurse Practitioner Family; Visit Provider Nurse Practitioner Family
DX: Z01.818 Encounter for other preprocedural examination (principal)
CPT/HCPCS: 36415; 80061; 81001; 84443; 85025; 85610; 85730; 87086

== ENCOUNTER 2022-03-02 07:04 | Outpatient (REF) | payer BC, SELFPAY ==
[2022-03-02 11:14] LABS: MANUAL DIFF FLAG NO
[2022-03-02 11:20] LABS: Basophils Absolute Auto 0.1 X10*3/uL (0.0-0.2); Basophils Percent Auto 1.2 % (0-2); Eosinophils Absolute Auto 0.3 X10*3/uL (0.0-0.4); Eosinophils Percent Auto 3.3 % (0-4); Hematocrit 40.5 % (42.0-52.0); Imm Gran Abs Auto 0.04 X10*3/uL (0.00-0.03); Imm Gran Pct Auto 0.4 % (0.0-0.4); Lymphocytes Absolute Auto 3.9 X10*3/uL (1.2-4.9); Lymphocytes Percent Auto 39.6 % (20-40); Mean Corpuscular HGB Conc 34.6 g/dl (31.0-36.0); Mean Corpuscular Hemoglobin 29.9 pg (27.0-33.0); Mean Corpuscular Volume 86.5 fL (80.0-98.0); Mean Platelet Volume 11.6 fL (9.4-12.4); Monocytes Absolute Auto 1.1 X10*3/uL (0.1-1.2); Monocytes Percent Auto 11.3 % (2-11); Neutrophils Absolute Auto 4.4 x10*3/uL (2.0-8.3); Neutrophils Percent Auto 44.2 % (45-73); Platelet Count 355 X10*3/uL (160-400); Red Blood Count 4.68 X10*6/uL (4.60-5.80); Red Cell Distribution Width 13.4 % (11.0-16.0); White Blood Count 9.9 X10*3/uL (4.8-10.8)
[2022-03-02 11:58] LABS: TSH reflex Free T4 1.99 uIU/mL (0.32-4.0); Vitamin D 25-OH Total 50.9 ng/mL (>30)
[2022-03-02 12:09] LABS: Alanine Aminotransferase 18 U/L (0-40); Albumin Level 3.9 g/dL (3.5-5.0); Alkaline Phosphatase 101 U/L (39-117); Anion Gap 13 (12-20); Aspartate Amino Transferase 21 U/L (5-37); Bilirubin Total 0.8 mg/dL (0.0-1.0); Blood Urea Nitrogen 19 mg/dL (9-16); Carbon Dioxide 23 mmol/L (22-29); Chloride 105 mmol/L (96-108); Estimated Glomerular Filt Rate 57; Glucose Random 172 mg/dL (60-115); Lipase 24 U/L (8-78); Sodium 137 mmol/L (135-145); Total Protein 7.5 g/dL (6.5-8.0)
[2022-03-03 21:06] LABS: Transglutaminase IgA <1.0 U/mL
[2022-03-07 13:11] LABS: Endomysial IgA Antibody Negative (Negative)
== END 2022-03-02 07:05 | disposition home or self-care (01) ==
LOC: HO.HMGCLDS 07:04
PROVIDERS: Visit Provider Nurse Practitioner Family
DX: R10.9 Unspecified abdominal pain (principal); R53.83 Other fatigue; E55.9 Vitamin D deficiency, unspecified
CPT/HCPCS: 36415; 80053; 82306; 83690; 84443; 85025; 86231; 86364

== ENCOUNTER 2022-03-05 13:55 | Outpatient (REF) | payer BC, SELFPAY ==
--- NOTE | ~2022-03-05 | US_ITS ---
EXAMINATION: US ABDOMEN COMPLETE CLINICAL INFORMATION: Unspecified abdominal pain. COMPARISON: Ultrasound bladder 05/06/2021. CT abdomen and pelvis 03/17/2021. X-ray KUB 04/26/2020. TECHNIQUE: Real-time imaging of the abdominal viscera. FINDINGS: PANCREAS: The head and body the pancreas are normal. The tail is not well visualized due to bowel gas. ABDOMINAL AORTA: The proximal, mid, and distal segments are normal in caliber. INFERIOR VENA CAVA: Visualized portions are normal. LIVER: Normal. The liver is normal in size. The liver contour is normal. Parenchymal echogenicity is normal. No focal hepatic lesion. There is no intrahepatic biliary duct dilatation seen. GALLBLADDER: Surgically absent. COMMON BILE DUCT: Normal in caliber measuring 0.4 cm in diameter. RIGHT KIDNEY: There are 2 stones in the midpole measuring 4 x 6 mm in the 4 mm. There is a 1.9 x 1.5 x 1.8 cm cyst in the lower pole. No hydronephrosis The kidney measures 10.3 cm in maximum dimension. LEFT KIDNEY: There is question of a 4 x 5 mm stone in the left upper pole. No hydronephrosis or focal parenchymal lesions. The kidney measures 10.1 cm in maximum dimension. SPLEEN: Surgically removed. FREE FLUID: None. US/US abdomen complete IMPRESSION: Bilateral renal stones. Small right renal cyst. Limited visualization of the tail the pancreas.
== END 2022-03-05 13:56 | disposition home or self-care (01) ==
LOC: HO.HMGCX 13:55
PROVIDERS: Visit Provider Nurse Practitioner Family
DX: R10.9 Unspecified abdominal pain (principal); R53.83 Other fatigue
CPT/HCPCS: 76700

== ENCOUNTER 2022-03-06 07:27 | Day surgery (SDC) | payer BC, SELFPAY ==
[2022-03-02 14:55] VITALS: BMI 31.7
--- NOTE | 2022-03-05 09:16 | P.CONAN_ITS ---
Documented by User: Linda Early NP 03/05/22 09:21 HPI - Anesthesia Eval Consult details Narrative: 76yo M for Colonoscopy h/o hemicolectomy 2019 r/t adenocarcinoma PMFSH Active Problems Active Problems: All Active Problems (Updated 02/24/22 @ 09:47 by Stuart Will, [facility]) Vitamin D deficiency (Acute) Abdominal discomfort (Acute) Fatigue (Acute) Left knee sprain (Acute) Chest pain (Acute) Diabetes (Acute) Paronychia of third toe of left foot (Acute) Diabetic neuropathy (Acute) Diabetic ulcer of ankle (Acute) Puncture wound (Acute) Colon carcinoma (Acute) Urinary tract infection (Acute) Difficulty managing nephrostomy care (Acute) Medication adverse effect (Acute) Systolic murmur (Acute) Screening PSA (prostate specific antigen) (Acute) History of nephrostomy (Acute) Vitamin D deficiency (Acute) Ureteral stricture (Acute) Abdominal pain (Acute) Lower abdominal pain (Acute) Suprapubic discomfort (Acute) Weakness (Acute) Cerumen debris on tympanic membrane (Acute) Bladder spasms (Acute) Fall (Acute) Chest pain (Acute) Angina pectoris, unstable (Acute) Anxiety (Acute) Precordial chest pain (Acute) Type 2 diabetes mellitus with unspecified complications (Acute) Hospital discharge follow-up (Acute) Feeling of chest tightness (Acute) Anxiety, generalized (Acute) Weakness (Acute) Bilateral impacted cerumen (Acute) Lumbar paraspinal muscle spasm (Acute) Pre-op evaluation (Acute) Constipation (Acute) Partial nontraumatic amputation of right foot (Acute) S/P ureteral reimplantation (Acute) Renal stones (Acute) History of colon cancer (Acute) Past Medical History Medical History Cholecystectomy planned CKD (chronic kidney disease) Diabetes Diabetic retinopathy History of colon cancer Necrosis of right ureter Osteoarthritis 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 Peripheral neuropathy Pulmonary sarcoidosis PVD (peripheral vascular disease) Renal stones Sarcoidosis Skin cancer Spherocytosis Spinal stenosis Family History Family History Mother Thyroid cancer Other Mental health disorder Surgical History Surgical History H/O right hemicolectomy H/O splenectomy History of surgical removal of pilonidal cyst History of tonsillectomy and adenoidectomy Hx of cholecystectomy Hx of colonoscopy S/P ureteral reimplantation Status post laser lithotripsy of ureteral calculus Social History Social History Household Members: Friend(s) Housing: House Are you a primary ocular care technician to a significant other at home: No Do you presently have visiting nurse or other home services: No Alcohol intake: never Patient Tobacco Use Status: Never used Tobacco e-Cigarette/Vaping Use: Never Used Second Hand Smoke Exposure: No Use of substances other than those prescribed or required for medical reasons: No Are you DNR?: No Advance Directives: No Advance Directives Information Provided: Yes Recently lost weight without trying: No service: No Current occupational status: employed and retired Cognitive needs: No Hearing needs: No Vision needs: No Meds Allergies Allergy/AdvReac Type Severity Reaction Status Date / Time penicillamine Allergy Unknown unknown Verified 02/24/22 07:48 Home Medications Medication Instructions Recorded Confirmed Last Taken Type zinc 50 mg capsule 50 mg PO DAILY 08/13/20 03/06/22 Unknown History vitamin B complex 1 cap PO DAILY 10/14/20 03/06/22 Unknown History cholecalciferol (vitamin D3) 100 100 mcg PO DAILY 11/20/20 03/06/22 Unknown History mcg (4,000 unit) capsule ascorbate calcium (vitamin C) 500 500 mg PO DAILY 08/01/21 03/06/22 Unknown History mg tablet tumeric 100 mg-steve 150 mg-olive 500 cap PO DAILY 09/03/21 03/06/22 Unknown History 50 mg-oreg 150 mg-caprylate capsule insulin NPH isoph U-100 human 100 15 - 20 unit SUBCUT BID ml 01/21/22 03/06/22 Unknown History unit/mL subcutaneous suspension (Humulin N NPH U-100 Insulin (isophane susp)) Exam Exam Date and Time: March 05, 2022 0916 Height,Weight and Vital Signs: Height 5 ft 11.5 in Weight 104.78 kg Pertinent Lab Results Pertinent Lab Results: Laboratory Tests 03/02/22 03/02/22 07:12 07:12 WBC 9.9 Hgb 14.0 Hct 40.5 L Plt Count 355 Sodium 137 Potassium 4.0 Chloride 105 Carbon Dioxide 23 BUN 19 H Creatinine 1.24 Narrative Narrative: EKG 09/2021 SR with SA, Occ PVCs LAD ECHO 07/2021 Conclusions: - The left ventricular systolic function is normal.? The visually estimated ejection fraction is between 55-60%. ? - There is mild calcification of the aortic valve. ? - No obvious valvular pathology seen on this study.? NM titus perf SPECT rest & str 07/2021 Impression: ? 1.? Myocardial perfusion imaging study shows normal myocardial perfusion 2.? Gated LVEF is 69% 3. Transient ischemic dilatation not present ? 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 Peripheral neuropathy Pulmonary sarcoidosis PVD (peripheral vascular disease) Renal stones Sarcoidosis Skin cancer Spherocytosis Spinal stenosis Family History Family History Mother Thyroid cancer Other Mental health disorder Family history of problems with anesthesia: No Surgical History Surgical History H/O right hemicolectomy H/O splenectomy History of surgical removal of pilonidal cyst History of tonsillectomy and adenoidectomy Hx of cholecystectomy Hx of colonoscopy S/P ureteral reimplantation Status post laser lithotripsy of ureteral calculus History of Problems with Anesthesia: No Social History Social History Household Members: Friend(s) Housing: House Are you a primary ocular care technician to a significant other at home: No Do you presently have visiting nurse or other home services: No Alcohol intake: never Patient Tobacco Use Status: Never used Tobacco e-Cigarette/Vaping Use: Never Used Second Hand Smoke Exposure: No Use of substances other than those prescribed or required for medical reasons: No Are you DNR?: No Advance Directives: No Advance Directives Information Provided: Yes Recently lost weight without trying: No service: No Current occupational status: employed and retired Cognitive needs: No Hearing needs: No Vision needs: No Meds Allergies Allergy/AdvReac Type Severity Reaction Status Date / Time penicillamine Allergy Unknown unknown Verified 02/24/22 07:48 Home Medications Medication Instructions Recorded Confirmed Last Taken Type zinc 50 mg capsule 50 mg PO DAILY 08/13/20 03/06/22 Unknown History vitamin B complex 1 cap PO DAILY 10/14/20 03/06/22 Unknown History cholecalciferol (vitamin D3) 100 100 mcg PO DAILY 11/20/20 03/06/22 Unknown History mcg (4,000 unit) capsule ascorbate calcium (vitamin C) 500 500 mg PO DAILY 08/01/21 03/06/22 Unknown History mg tablet tumeric 100 mg-steve 150 mg-olive 500 cap PO DAILY 09/03/21 03/06/22 Unknown History 50 mg-oreg 150 mg-caprylate capsule insulin NPH isoph U-100 human 100 15 - 20 unit SUBCUT BID ml 01/21/22 03/06/22 Unknown History unit/mL subcutaneous suspension (Humulin N NPH U-100 Insulin (isophane susp)) Exam Height,Weight and Vital Signs: Height 5 ft 11.5 in Weight 104.78 kg Vital Signs Temp Pulse Resp BP Pulse Ox 03/06/22 07:44 97.6 F 76 18 131/77 98 Pertinent Lab Results Pertinent Lab Results: Laboratory Tests 03/02/22 03/02/22 07:12 07:12 WBC 9.9 Hgb 14.0 Hct 40.5 L Plt Count 355 Sodium 137 Potassium 4.0 Chloride 105 Carbon Dioxide 23 BUN 19 H Creatinine 1.24 Lab Results 03/06/22 Range/Units 07:47 POC Glucose 113 (60-115) mg/dL Airway Mallampati Class: II TM Dist: >3cm Neck ROM: Full Heart: RRR Lungs: CTAB Assessment and Plan Assessment Anesthesia Assessment: Anesthesia Plan Discussed Final Anesthetic Review Family History of Problems with Anesthesia: No History of Problems with Anesthesia: No NPO: Yes ASA Class: III Final Preanesthetic Review: No Changes in Pt Med Stat, Meds/Allgs Chart Reviewed, Consent Obtained/Reviewed and Anes Risks/Benef Reviewed Patient Risk: Intermediate Procedure Risk: Low Assessment/Block/Sedation in SS: Assess/Block/Sedation-SS Anesthetic Plan Anesthetic Plan: MAC: Disposition: Standard PACU
[2022-03-06 07:42] VITALS: BMI 31.6
[2022-03-06 07:44] VITALS: BP 131/77; PULSE 76; RESP 18; TEMP 36.4; O2SAT 98
[2022-03-06] MEDS: Lactated Ringers 1,000 ML 100 ML IVCONT (07:55)
[2022-03-06 08:10] LABS: Glucose, Whole Blood 113 mg/dL (60-115)
[2022-03-06 09:33] VITALS: BP 95/54; PULSE 68; RESP 13; TEMP 36.6; O2SAT 98
--- NOTE | 2022-03-06 09:34 | PM.OP ---
Brief Operative Note Date of Service: 03/06/22 Pre-op diagnosis: Screening Post-op diagnosis: other (Colon polyps) Procedure: Colonoscopy to the anastomosis and SI with cold snare polypectomy at 60cm, and bx/removal of polyps Surgeon: Ernesto Wu Anesthesia: MAC Was an Mechanical Engineering Officer used for this Procedure?: No Estimated blood loss (mL): 2.0 Pathology: other (A. Transverse colon polyps B. Polyp at 60cm) Condition: stable Disposition: PACU
[2022-03-06 09:48] VITALS: BP 106/49; PULSE 70; RESP 16; O2SAT 100
[2022-03-06 10:03] VITALS: BP 117/70; PULSE 72; RESP 16; TEMP 36.7; O2SAT 100
--- NOTE | 2022-03-06 20:49 | OP_ITS ---
SURGEON: Ernesto Wu MD INDICATIONS: The patient presents for evaluation of personal history of colon cancer and tubular adenoma of the colon. Full consent was obtained from him for this, including risks of bleeding and perforation. PREOPERATIVE DIAGNOSIS: POSTOPERATIVE DIAGNOSIS: PROCEDURE PERFORMED: Colonoscopy to the anastomosis and small bowel with biopsy and removal of polyps, and cold snare polypectomy. ESTIMATED BLOOD LOSS: COMPLICATIONS: ANESTHESIA: Monitored anesthesia care. ASSISTANTS: SPECIMENS: PREOPERATIVE DIAGNOSES: Colorectal cancer screening, personal history of colon cancer, personal history of tubular adenoma of the colon. POSTOPERATIVE DIAGNOSES: Colorectal cancer screening, personal history of colon cancer, personal history of tubular adenoma of the colon, colon polyps, diverticulosis and internal hemorrhoids. DESCRIPTION OF PROCEDURE: The patient was placed in the left lateral decubitus position. The digital rectal exam revealed no abnormalities. The Olympus video pediatric colonoscope was entered into the rectum and advanced easily to the region of the anastomosis. The small bowel was cannulated and appeared normal. The scope was withdrawn back into the colon. The anastomosis appeared normal. The scope was then slowly withdrawn assessing all mucosal surfaces carefully. Preparation was excellent after his 2 day preparation. In the transverse colon were 2 flat approximately 4 mm polyps, which were each biopsied and completely removed with cold biopsy forceps. At 60 cm was an approximately 5 mm polyp, which was removed by cold snare polypectomy and recovered by suction. The polypectomy site appeared clean, without any sign of residual polyp nor any significant bleeding. I did not visualize any other polyps, colitis, nor angiodysplasia. There was a mild amount of sigmoid diverticulosis. In the rectum, scope was retroflexed visualizing internal hemorrhoids, but no other pathology. The rectal mucosa appeared normal. Scope was straightened and withdrawn from the patient. He tolerated the procedure well and was returned to recovery area in stable condition. IMPRESSION: 1. Colon polyps, status post cold snare polypectomy, and biopsy removal. 2. Diverticulosis. 3. Internal hemorrhoids. PLAN: The results of the pathology will be checked. Given his history, I would recommend a repeat colonoscopy in 2 years for further screening. He will otherwise see me on a p.r.n. basis. MD UDAY Marquez/NICKI / [phone]
== END 2022-03-06 10:49 | disposition home or self-care (01) ==
PROVIDERS: PCP Nurse Practitioner Family; Visit Provider Internal Medicine
PROC: 0DJD8ZZ Inspection of Lower Intestinal Tract, Via Natural or Artificial Opening Endoscopic (ICD-10-PCS; CPT 45378; principal; 2022-03-06 08:20)
DX: Z12.11 Encounter for screening for malignant neoplasm of colon (principal); Z85.038 Personal history of other malignant neoplasm of large intestine; Z86.010 Personal history of colon polyps; D12.3 Benign neoplasm of transverse colon; D12.4 Benign neoplasm of descending colon; K57.30 Diverticulosis of large intestine without perforation or abscess without bleeding; K64.8 Other hemorrhoids; K59.00 Constipation, unspecified; D58.0 Hereditary spherocytosis; E11.9 Type 2 diabetes mellitus without complications; Z79.4 Long term (current) use of insulin; Z79.899 Other long term (current) drug therapy; G62.9 Polyneuropathy, unspecified; Z90.49 Acquired absence of other specified parts of digestive tract; Z85.828 Personal history of other malignant neoplasm of skin; Z87.442 Personal history of urinary calculi; Z90.81 Acquired absence of spleen; Z98.890 Other specified postprocedural states; Z88.1 Allergy status to other antibiotic agents
CPT/HCPCS: 45385; 45380; 82947; 88305

== ENCOUNTER 2022-08-21 12:08 | Outpatient (REF) | payer BC, SELFPAY ==
--- NOTE | ~2022-08-21 | XR_ITS ---
EXAMINATION: LEFT ELBOW, LEFT KNEE, AP PELVIS, LEFT SHOULDER, AND PA CHEST WITH LEFT RIBS. CLINICAL INFORMATION: Pain COMPARISON: AP pelvis of October 08, 2015. Just above October 23, 2020. Left knee of July 03, 2020 TECHNIQUE: 3 views left elbow, 2 views left shoulder, PA chest and 3 views of the left RIBS, AP pelvis, and 4 views of the left knee. FINDINGS: 3 views of the left elbow do not demonstrate any evidence of acute fracture or dislocation. No effusion is present. Small spur site of insertion of the triceps tendon on the olecranon is noted. There is no evidence of acute fracture or dislocation of the left knee. Chondrocalcinosis is present. The medial and lateral joint space compartments are maintained. Lateral view is somewhat oblique and I do not see any significant knee effusion. There are prominent spurs at sites of insertion of the quadriceps and patella tendons. There is prominent spurring undersurface of the patella with linear lucency at the base of the superior spur not definitely appreciated on study of July 03, 2020. But no definite adjacent soft tissue edema to suggest acute injury in these areas. If patient's pain is located in the region of the superior patella consideration of fracture of the spur could be considered. Prominent vascular calcifications are present. AP film of the pelvis does not demonstrate any evidence of acute fracture or diastases. Changes of enthesopathy present. There is degenerative collar spurring seen about both hips. There is narrowing of the hip joints inferiorly bilaterally.. No abnormal lytic or sclerotic lesion is appreciated. There appears be sacroiliac joint degenerative change and possible fusion. 2 views of the left shoulder do not demonstrate any evidence of acute fracture or dislocation. No calcific tendinitis is appreciated. Subchondral cysts seen about the humeral head. There is some mild spurring inferior glenoid. Inferior acromial spur is present. There is some degenerative narrowing, sclerosis, and spurring about the acromioclavicular joint. No widening of the coracoclavicular space is seen. PA film of the chest does not demonstrate any evidence of acute parenchymal disease, pneumothorax, or pleural effusion. Heart normal size. No evidence of pulmonary edema. Degenerative spurring is seen throughout the thoracic spine. There is degenerative change with spurring about the right glenohumeral joint No acute displaced left rib fracture identified. No suspicious destructive rib lesion is seen. XR/XR ribs LT min 3V w [id number] IMPRESSION: No evidence of acute fracture or dislocation of the left elbow, left knee, left shoulder, AP pelvis, or left ribs. Possible fracture base of the superior patella spur for which clinical correlation suggested. Degenerative changes as described. No acute parenchymal disease within the chest.
[2022-08-21 13:53] LABS: MANUAL DIFF FLAG NO
[2022-08-21 13:56] LABS: Basophils Absolute Auto 0.1 X10*3/uL (0.0-0.2); Basophils Percent Auto 1.1 % (0-2); Eosinophils Absolute Auto 0.3 X10*3/uL (0.0-0.4); Eosinophils Percent Auto 2.5 % (0-4); Hematocrit 42.9 % (42.0-52.0); Hemoglobin 15.2 g/dl (14.0-18.0); Imm Gran Abs Auto 0.06 X10*3/uL (0.00-0.03); Imm Gran Pct Auto 0.6 % (0.0-0.4); Lymphocytes Absolute Auto 3.2 X10*3/uL (1.2-4.9); Lymphocytes Percent Auto 29.7 % (20-40); Mean Corpuscular HGB Conc 35.4 g/dl (31.0-36.0); Mean Corpuscular Hemoglobin 30.6 pg (27.0-33.0); Mean Corpuscular Volume 86.3 fL (80.0-98.0); Mean Platelet Volume 12.1 fL (9.4-12.4); Monocytes Absolute Auto 1.1 X10*3/uL (0.1-1.2); Neutrophils Percent Auto 56.1 % (45-73); Platelet Count 303 X10*3/uL (160-400); Red Blood Count 4.97 X10*6/uL (4.60-5.80); Red Cell Distribution Width 12.8 % (11.0-16.0); White Blood Count 10.7 X10*3/uL (4.8-10.8)
[2022-08-21 14:02] LABS: Appearance Urine Clear; Color Urine Dark Yellow; Glucose Urine UA 100 mg/dL (Negative); Leukocyte Esterase Urine Trace (Negative); Nitrite Urine Negative (Negative); Specific Gravity - Urine 1.015 (1.005-1.025); UMIC TRIGGER UACC YES; Urine Blood Negative (Negative); Urine Ketones Negative (Negative); Urine Protein Negative (Neg-Trace)
[2022-08-21 14:07] LABS: Bacteria Urine Trace (None Seen); Hyaline Casts Urine 0-2 /LPF (0-2); RBC Urine 0-2 /HPF (0-2); Squamous Epithelial Cell Urine 0-2 /HPF (0-2); UACC Culture Trigger YES
[2022-08-21 14:34] LABS: Estimated Average Glucose 134 mg/dL; Hemoglobin A1c % 6.3 %
[2022-08-21 14:51] LABS: Alanine Aminotransferase 18 U/L (0-40); Albumin Level 4.3 g/dL (3.5-5.0); Alkaline Phosphatase 99 U/L (39-117); Anion Gap 17 (12-20); Aspartate Amino Transferase 26 U/L (5-37); Bilirubin Total 1.7 mg/dL (0.0-1.0); Blood Urea Nitrogen 21 mg/dL (9-16); Calcium 10.3 mg/dL (8.4-10.2); Carbon Dioxide 25 mmol/L (22-29); Chloride 100 mmol/L (96-108); Cholesterol 160 mg/dL; Estimated Glomerular Filt Rate > 60; Glucose Fasting 185 mg/dL (60-99); HDL Cholesterol 36 mg/dL; LDL Cholesterol Calculated 88 mg/dl; Sodium 138 mmol/L (135-145); Total Protein 7.9 g/dL (6.5-8.0); Triglycerides 182 mg/dL
[2022-08-21 15:13] LABS: TSH reflex Free T4 1.65 uIU/mL (0.32-4.0)
== END 2022-08-21 12:09 | disposition home or self-care (01) ==
LOC: HO.HMGCX 12:08
PROVIDERS: Absent Provider Physician Assistant; PCP Nurse Practitioner Family; Visit Provider Nurse Practitioner Family
DX: M25.512 Pain in left shoulder (principal); R07.81 Pleurodynia; M25.552 Pain in left hip; M25.551 Pain in right hip; M25.522 Pain in left elbow; M25.562 Pain in left knee; E11.9 Type 2 diabetes mellitus without complications
CPT/HCPCS: 36415; 71101; 72170; 73030; 73070; 73564; 80053; 80061; 81001; 81003; 83036; 84443; 85025; 87086

== ENCOUNTER 2022-08-25 15:02 | Outpatient (REF) | payer BC, SELFPAY ==
--- NOTE | ~2022-08-25 | XR_ITS ---
EXAMINATION: XR HIP, RIGHT CLINICAL INFORMATION: Right hip pain. COMPARISON: Regressed dated 10/08/2015. TECHNIQUE: AP and frog-leg lateral views of the right hip. FINDINGS: Bony alignment and mineralization are normal. There is mild narrowing of the medial right acetabular joint space. There is irregularity of the articular surface of the right acetabular roof. The right femoral head appears smooth and shows minimal peripheral osteophyte formation. No fracture or dislocation is seen. There are femoral atherosclerotic calcifications. Right pelvic surgical clips are noted. XR/XR hip RT min 2V IMPRESSION: There is mild osteoarthritic change of the right hip. No fracture or dislocation is seen.
== END 2022-08-25 15:03 | disposition home or self-care (01) ==
LOC: HO.HMGCX 15:02
PROVIDERS: PCP Nurse Practitioner Family; Visit Provider Nurse Practitioner Family
DX: M25.551 Pain in right hip (principal)
CPT/HCPCS: 73502

== ENCOUNTER 2022-08-28 17:22 | Emergency (ER) | payer BC, SELFPAY ==
--- NOTE | ~2022-08-28 | XR_ITS ---
EXAMINATION: XR chest 1V CLINICAL INFORMATION: Reason for Exam cough, covid + COMPARISON: Chest radiograph 08/21/2022 TECHNIQUE: One view of the chest FINDINGS: Few ill-defined hazy parenchymal airspace opacities which could be seen in the setting of multifocal infection, including atypical/viral infection. No pneumothorax or pleural effusion. Normal cardiomediastinal silhouette. Upper abdominal surgical clips. XR/XR chest 1V IMPRESSION: Few ill-defined hazy parenchymal airspace opacities which could be seen in the setting of multifocal infection, including atypical/viral infection.
--- NOTE | ~2022-08-28 | CT_ITS ---
EXAMINATION: CT ABDOMEN AND PELVIS WITHOUT CONTRAST CLINICAL INFORMATION: Suprapubic abdominal pain, back pain. Dysuria . COMPARISON: 04/15/2021. TECHNIQUE: Multidetector volumetric imaging was performed from the superior aspect of the liver through the pubic symphysis without contrast per renal stone protocol. Sagittal and coronal reformatted images were obtained on the technologist workstation. This CT examination was performed using dose optimization techniques as appropriate, variously including the following: *Automated exposure control *Adjustment of mA and/or kV according to patient size (this includes techniques or standardized protocols for targeted exams where dose is matched to indication/reason for exam; i.e. extremities or head) *Use of iterative reconstruction technique DLP: 1380 mGy-cm. FINDINGS: LUNG BASES: Mild linear basilar scarring or atelectasis. Bilateral gynecomastia LIVER, GALLBLADDER, BILIARY TREE: The non-contrast liver is normal in size, shape, and attenuation. No focal hepatic lesion or biliary ductal dilatation is present. Gallbladder is surgically absent. PANCREAS: Status post distal pancreatectomy. The remaining pancreas is somewhat atrophic but grossly unremarkable otherwise. No peripancreatic inflammatory changes seen currently. SPLEEN: Status post splenectomy. ADRENAL GLANDS: Unremarkable. KIDNEYS AND URETERS: The kidneys are normal in size, shape, and attenuation. I do not appreciate any perinephric stranding. Tiny calcifications are seen within both collecting systems. There is mild prominence of the left ureter has extends all the way to the bladder. No evidence for ureteric calculi or obstructive changes to the kidneys BLADDER: Bladder is relatively distended with mild diffuse bladder wall thickening. Cystitis cannot be excluded with this appearance and should be clinically correlated GASTROINTESTINAL TRACT: Colon is redundant with scattered diverticulosis. No focal colonic wall thickening or pericolonic inflammatory change. Patient status post right hemicolectomy. No obstructive changes to the small bowel ABDOMINAL WALL: Postoperative changes in the anterior abdominal wall no significant herniation. Soft tissue stranding in the midline gluteal fat posterior to the sacrum suggestive of pressure changes LYMPHOVASCULAR STRUCTURES: Prominent vascular calcification within the aorta iliac system. No bulky adenopathy. PELVIC VISCERA: Unremarkable. OSSEUS STRUCTURES: Multilevel degenerative changes in the spine with degenerative changes in the hips CT/CT abdomen pelvis wo IV con IMPRESSION: Chronic appearing and postoperative changes as described. Bladder is relatively distended with mild diffuse bladder wall thickening. Cystitis cannot be excluded with this appearance and should be clinically correlated.
[2022-08-28 17:26] VITALS: BP 135/71; PULSE 122; RESP 18; TEMP 37.3; O2SAT 99; BMI 30.7
--- NOTE | 2022-08-28 17:29 | ED_ITS ---
HPI - General Adult General Chief complaint: Urogenital-Male <MARIFER Valdivia - Last Filed: 08/28/22 17:36> Stated complaint: ? uti septic shock <MARIFER Valdivia - Last Filed: 08/28/22 17:36> Time Seen by Provider: 08/28/22 19:36 <MARIFER Valdivia - Last Filed: 08/28/22 17:36> Source: patient <Jackelin Fall NP - Last Filed: 08/29/22 00:07> Mode of arrival: ambulatory <Jackelin Fall NP - Last Filed: 08/29/22 00:07> Limitations: no limitations <Jackelin Fall NP - Last Filed: 08/29/22 00:07> History of Present Illness HPI narrative: 77-year-old male past medical history significant for diabetes, colon cancer, CKD, PAD, diabetic neuropathy, recurrent UTIs here with complaint of lower back pain, suprapubic discomfort since Wednesday with chills. No urinary symptoms, fever, vomiting, diarrhea, abdominal pain. Patient has also had a slight runny nose. <Jackelin Fall NP - Last Filed: 08/29/22 00:07> Related Data Home medications: Home Medications Medication Instructions Recorded Confirmed zinc 50 mg capsule 50 mg PO DAILY 08/13/20 08/28/22 vitamin B complex 1 cap PO DAILY 10/14/20 08/28/22 cholecalciferol (vitamin D3) 100 100 mcg PO DAILY 11/20/20 08/28/22 mcg (4,000 unit) capsule ascorbate calcium (vitamin C) 500 500 mg PO DAILY 08/01/21 08/28/22 mg tablet tumeric 100 mg-steve 150 mg-olive 500 cap PO DAILY 09/03/21 08/28/22 50 mg-oreg 150 mg-caprylate capsule Previous Rx's Medication Instructions Recorded ketoconazole 2 % topical cream 1 appl topical DAILY 90 days #60 07/22/22 grams insulin syringe-needle U-100 1 mL #200 ea 08/07/22 30 gauge x 1/2 (BD Insulin Syringe Ultra-Fine) insulin NPH isoph U-100 human 100 30 unit (0.3 mL) subcut BID 90 08/24/22 unit/mL subcutaneous suspension days #60 mL (Humulin N NPH U-100 Insulin (isophane susp)) rosuvastatin 5 mg tablet 5 mg PO DAILY 90 days #90 tabs 08/24/22 cephalexin 500 mg capsule 500 mg PO TID #21 caps 08/28/22 <MARIFER Valdivia - Last Filed: 08/28/22 17:36> Allergies/adverse reactions: Allergies Allergy/AdvReac Type Severity Reaction Status Date / Time penicillamine Allergy Unknown unknown Verified 08/28/22 15:42 <MARIFER Valdivia - Last Filed: 08/28/22 17:36> Review of Systems Review of Systems: Yes all other systems are reviewed and are negative <Jackelin Fall NP - Last Filed: 08/29/22 00:07> Constitutional: Constitutional: Reports no additional constitutional complaints, Denies body ache(s), Reports chills, Denies fever(s), Denies headache(s) and Denies weakness <Jackelin Fall NP - Last Filed: 08/29/22 00:07> Eyes: Eyes: Reports no additional eye complaints and Denies change in vision <Jackelin Fall NP - Last Filed: 08/29/22 00:07> ENT: Reports system reviewed and no additional complaints, except as docum ented, Denies dizziness, Denies headache(s), Denies nasal congestion, Reports nasal discharge and Denies neck pain <AKASH Wolf Last Filed: 08/29/22 00:07> Cardiovascular: Cardiovascular: Reports no additional cardiovascular complaints, Denies chest pain, Denies leg edema and Denies dyspnea <Jackelin Fall NP - Last Filed: 08/29/22 00:07> Respiratory: Respiratory: Reports no additional respiratory complaints, Denies cough and Denies dyspnea <Jackelin Fall NP - Last Filed: 08/29/22 00:07> Gastrointestinal: Gastrointestinal: Reports no additional gastrointestinal complaints, Denies abdominal pain, Denies diarrhea, Denies nausea and Denies vomiting <AKASH Wolf Last Filed: 08/29/22 00:07> Genitourinary: Genitourinary: Denies urinary incontinence <Jackelin Fall NP - Last Filed: 08/29/22 00:07> Musculoskeletal: Musculoskeletal: Reports no additional musculoskeletal complaints, Reports back pain, Denies arthralgias, Denies joint swelling, Denies neck pain, Denies numbness and Denies tingling <Jackelin Fall NP - Last Filed: 08/29/22 00:07> Integumentary/Breasts: Skin/Breast: Reports system reviewed and no additional complaints, except as docu and Denies rash <Jackelin Fall NP - Last Filed: 08/29/22 00:07> Neurologic: Reports system reviewed and no additional complaints, except as documented, Denies dizziness, Denies headache(s), Denies numbness, Denies tingling and Denies weakness <Jackelin Fall NP - Last Filed: 08/29/22 00:07> [facility] Past Medical History Attestation statement: The following information was validated with the patient. 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 Peripheral neuropathy Pulmonary sarcoidosis PVD (peripheral vascular disease) Renal stones Sarcoidosis Skin cancer Spherocytosis Spinal stenosis <MARIFER Valdivia - Last Filed: 08/28/22 17:36> Surgical History: Surgical History H/O right hemicolectomy H/O splenectomy History of surgical removal of pilonidal cyst History of tonsillectomy and adenoidectomy History of ureter repair Hx of cholecystectomy Hx of colonoscopy S/P ureteral reimplantation Status post laser lithotripsy of ureteral calculus <MARIFER Valdivia - Last Filed: 08/28/22 17:36> Family History Family History: Family History Mother Thyroid cancer Other Mental health disorder <MARIFER Valdivia - Last Filed: 08/28/22 17:36> Social History Social History: Social History Household Members: Friend(s) Housing: House Are you a primary assurance services manager health care to a significant other at home: No Do you presently have visiting nurse or other home services: No Alcohol intake: never Patient Tobacco Use Status: Never used Tobacco e-Cigarette/Vaping Use: Never Used Second Hand Smoke Exposure: No Advance Directives: No Advance Directives Information Provided: No service: No Current occupational status: employed and retired Cognitive needs: No Hearing needs: No Vision needs: No <MARIFER Valdivia - Last Filed: 08/28/22 17:36> Physical Exam ED Vital Signs: Vital Signs - 24 hr 08/28/22 17:26 08/28/22 19:41 08/28/22 21:01 Temperature 99.1 F 101.2 F H 99.3 F Pulse Rate 122 H 119 H 115 H Respiratory Rate 18 19 14 Blood Pressure 135/71 142/70 H 112/61 Pulse Oximetry 99 98 97 Oxygen Delivery Method Room Air Room Air Room Air 08/28/22 21:53 08/28/22 23:18 08/28/22 23:44 Temperature 100.1 F 99.5 F 99.4 F Pulse Rate 100 99 Respiratory Rate 14 20 Blood Pressure 103/55 L 100/58 L Pulse Oximetry 100 98 Oxygen Delivery Method Room Air Room Air BMI result Body Mass Index 30.7 <MARIFER Valdivia - Last Filed: 08/28/22 17:36> Vital Signs - 24 hr 08/28/22 17:26 08/28/22 19:41 08/28/22 21:01 Temperature 99.1 F 101.2 F H 99.3 F Pulse Rate 122 H 119 H 115 H Respiratory Rate 18 19 14 Blood Pressure 135/71 142/70 H 112/61 Pulse Oximetry 99 98 97 Oxygen Delivery Method Room Air Room Air Room Air 08/28/22 21:53 08/28/22 23:18 08/28/22 23:44 Temperature 100.1 F 99.5 F 99.4 F Pulse Rate 100 99 Respiratory Rate 14 20 Blood Pressure 103/55 L 100/58 L Pulse Oximetry 100 98 Oxygen Delivery Method Room Air Room Air BMI result Body Mass Index 30.7 <Jackelin Fall NP - Last Filed: 08/29/22 00:07> Const General: cooperative, healthy appearing, comfortable and no acute distress <Jackelin Fall NP - Last Filed: 08/29/22 00:07> Orientation/consciousness: patient oriented x3 <Jackelin Fall NP - Last Filed: 08/29/22 00:07> Limitations: no limitations <AKASH Wolf Last Filed: 08/29/22 00:07> HENMT Head: Yes normal to inspection <AKASH Wolf Last Filed: 08/29/22 00:07> Ears: hearing grossly normal bilaterally <Jackelin Fall NP - Last Filed: 00:07> Eyes General: appearance normal, both eyes and all related structures <Jackelin Fall NP - Last Filed: 08/29/22 00:07> Pupils: Equal, round and reactive pupils present <Jackelin Fall NP - Last Filed: 08/29/22 00:07> Neck Neck: Yes normal visual inspection, Yes full ROM, Yes no lymphadenopathy and Yes no meningeal signs <AKASH Wolf Last Filed: 08/29/22 00:07> Chest Chest palpation & inspection: normal inspection of the chest <Jackelin Fall NP - Last Filed: 08/29/22 00:07> Resp Effort & Inspection: normal respiratory effort <AKASH Wolf Last Filed: 08/29/22 00:07> Auscultation: clear to auscultation bilaterally <AKASH Wolf Last Filed: 08/29/22 00:07> Cardio Rate: regular rate <AKASH Wolf Last Filed: 08/29/22 00:07> Rhythm: regular rhythm <Jackelin Fall NP - Last Filed: 08/29/22 00:07> Peripheral pulses: Peripheral pulses 2+ throughout <Jackelin Fall NP - Last Filed: 08/29/22 00:07> GI Inspection: Yes normal to inspection <Jackelin Fall NP - Last Filed: 08/29/22 00:07> Palpation (GI): Soft to palpation and nontender <Jackelin Fall NP - Last Filed: 08/29/22 00:07> General: Yes no CVA tenderness <Jackelin Fall NP - Last Filed: 08/29/22 00:07> Back/Spine/Pelvis Back: no CVA tenderness <Jackelin Fall NP - Last Filed: 08/29/22 00:07> Thoracic/Lumbar Spine: thoracic and lumbar spine normal to inspection <Jackelin Fall NP - Last Filed: 08/29/22 00:07> Skin General skin exam: no rashes or lesions noted <Jackelin Fall NP - Last Filed: 08/29/22 00:07> Neuro General: patient oriented x3, moves all extremities and no meningeal signs <Jackelin Fall NP - Last Filed: 08/29/22 00:07> Cranial nerves: Yes Equal, round and reactive pupils present <Jackelin Fall NP - Last Filed: 08/29/22 00:07> Cognition (Neuro): normal cognition <Jackelin Fall NP - Last Filed: 08/29/22 00:07> Gait exam (Neuro): Normal gait present <Jackelin Fall NP - Last Filed: 08/29/22 00:07> Extrem General: Yes normal to inspection <Jackelin Fall NP - Last Filed: 08/29/22 00:0 7> Course Course Course Narrative: RME--77yo M PMHx CKD, recurrent UTIs, c/o chills, dysuria, suprapubic abd pain & lower back pain x few hrs. Low-grade fever 99.1, tachycardic to 122 in triage Labs, UA, lactic/blood cultures, IVF, CT AP ordered in triage <MARIFER Valdivia - Last Filed: 08/28/22 17:36> Reevaluation(s) Reevaluation #1: COVID screen is positive. No hypoxia or tachypnea. Chest x-ray shows no evidence of pneumonia. No clinical findings, hypoxia, tachypnea, unilateral leg swelling or pain to suggest PE. UA mildly positive for UTI. CT shows no evidence of pyelonephritis. Labs are all unremarkable with the exception of mildly elevated white blood cell count 11.2. Chest x-ray consistent with a viral infection. Fever and tachycardia are likely secondary to a viral infection as patient has COVID. He does have a very mild UTI and I will send him home with some oral antibiotics. Clinically he looks well. Overall nontoxic. Blood pressures are on the lower end of normal. Patient tells me his normal blood pressure is 100/60. We did discuss admission in the hospital versus going home and the patient overall would rather go home and stay tonight. Again clinically he looks well and I feel that this is appropriate. He plans on ret urning for any chest pain, shortness of breath, weakness or worsening symptoms. We did discuss current treatment options available for COVID and patient declined all of these. We reviewed quarantine. Reviewed worrisome signs and symptoms of when to return to the emergency room. Comfortable plan for discharge home. <Jackelin Fall NP - Last Filed: 08/29/22 00:07> Medications Administered Discontinued Medications Generic Name Dose Route Start Last Admin Trade Name Freq PRN Reason Stop Dose Admin Acetaminophen 975 mg 08/28/22 19:44 08/28/22 20:47 Acetaminophen 325 Mg Tablet PO 08/28/22 19:45 975 mg ONCE ONE Administration Sodium Chloride 1,000 mls @ 999 mls/hr 08/28/22 17:45 08/28/22 23:24 Ns IV 08/28/22 18:45 Infused .Q1H1M MONIE Infusion Sodium Chloride 1,000 mls @ 999 mls/hr 08/28/22 19:44 08/28/22 23:24 Ns IV 08/28/22 20:44 Infused .Q1H1M STA Infusion Ceftriaxone Sodium 1 gm/ 50 mls @ 100 mls/hr 08/28/22 19:45 08/28/22 21:54 Sodium Chloride IV 08/28/22 20:14 Infused ONCE ONE Infusion <MARIFER Valdivia - Last Filed: 08/28/22 17:36> Medications Administered Discontinued Medications Generic Name Dose Route Start Last Admin Trade Name Hollie PRArmando Reason Stop Dose Admin Acetaminophen 975 mg 08/28/22 19:44 08/28/22 20:47 Acetaminophen 325 Mg Tablet PO 08/28/22 19:45 975 mg ONCE ONE Administration Sodium Chloride 1,000 mls @ 999 mls/hr 08/28/22 17:45 08/28/22 23:24 Ns IV 08/28/22 18:45 Infused .Q1H1M MONIE Infusion Sodium Chloride 1,000 mls @ 999 mls/hr 08/28/22 19:44 08/28/22 23:24 Ns IV 08/28/22 20:44 Infused .Q1H1M STA Infusion Ceftriaxone Sodium 1 gm/ 50 mls @ 100 mls/hr 08/28/22 19:45 08/28/22 21:54 Sodium Chloride IV 08/28/22 20:14 Infused ONCE ONE Infusion <Jackelin Fall NP - Last Filed: 08/29/22 00:07> Medical Decision Making MDM Narrative Medical decision making narrative: 77 yo male here with low back pain, suprapubic discomfort, chills, rhinorrhea since Wednesday. On arrival patient tachycardic with low grade fever. When I saw patient temp 101.2, HR 120. At this time infection suspected. Antibiotics ordered. IVF, APAP for fever control. Will check labs, UA, CT A/P, CXR, Covid screen <Jackelin Fall NP - Last Filed: 08/29/22 00:07> Medical Records Medical records reviewed: Yes I reviewed the patient's medical records. <Jackelin Fall NP - Last Filed: 08/29/22 00:07> Lab Data Lab results reviewed: Yes I reviewed the patient's lab results. <Jackelin Fall NP - Last Filed: 08/29/22 00:07> Result diagrams: : 08/28/22 18:01 08/28/22 18:01 <MARIFER Valdivia - Last Filed: 08/28/22 17:36> Labs: Lab Results 08/28/22 08/28/22 08/28/22 Range/Units 17:34 18:01 18:01 WBC 11.2 H (4.8-10.8) X10*3/uL RBC 4.97 (4.60-5.80) X10*6/uL Hgb 15.4 (14.0-18.0) g/dl Hct 42.1 (42.0-52.0) % MCV 84.7 (80.0-98.0) fL MCH 31.0 (27.0-33.0) pg MCHC 36.6 H (31.0-36.0) g/dl RDW 12.8 (11.0-16.0) % Plt Count 404 H D (160-400) X10*3/uL MPV 10.8 (9.4-12.4) fL Immature Gran % (Auto) Cancelled Neut % (Auto) Cancelled Lymph % (Auto) Cancelled [place] % (Auto) Cancelled Eos % (Auto) Cancelled Baso % (Auto) Cancelled Lymph # (Auto) Cancelled [place] # (Auto) Cancelled Eos # (Auto) Cancelled Baso # (Auto) Cancelled Abs Immat Gran (auto) Cancelled Absolute Neuts (auto) Cancelled Absolute Nucleated RBC 0.000 (0.0-0.012) X10*3/uL Nucleated RBC % (auto) 0.0 (0.0-0.2) /100WBC Neutrophils % (Manual) 78 H (45-73) % Band Neutrophils % 6 H (3-5) % Lymphocytes % (Manual) 8 L (20-40) % Monocytes % (Manual) 6 (2-11) % Eosinophils % (Manual) 1 (0-4) % Metamyelocytes % 1 % Abs Neuts (Manual) 9.4 H (2.0-8.3) X10*3/uL Lymphocytes # (Manual) 0.9 L (1.2-4.9) X10*3/uL Monocytes # (Manual) 0.7 (0.1-1.2) X10*3/uL Eosinophils # (Manual) 0.1 (0.0-0.4) X10*3/uL Metamyelocytes # 0.1 X10*3/uL Nucleated RBCs 1 H (0-0) /100WBC Platelet Estimate NORMAL (NORMAL) Large Platelets PRESENT Giant Platelets PRESENT Plt Morphology Comment NOTED RBC Morphology NOTED Pappenheimer Bodies PRESENT Hi Cells 3+ (>5) /OIF Acanthocytes (Spur) 1+ (0-2) /OIF PT 13.0 (10.0-13.1) SEC INR 1.1 (0.9-1.1) Sodium (135-145) mmol/L Potassium (3.3-5.1) mmol/L Chloride (96-108) mmol/L Carbon Dioxide (22-29) mmol/L Anion Gap (12-20) BUN (9-16) mg/dL Creatinine (0.5-1.4) mg/dL Estim Creat Clear Calc Estimated GFR POC Glucose 158 H (60-115) mg/dL Random Glucose (60-115) mg/dL Lactic Acid (0.5-2.0) mmol/L Calcium (8.4-10.2) mg/dL Magnesium (1.6-2.6) mg/dL Total Bilirubin (0.0-1.0) mg/dL Direct Bilirubin (0.0-0.5) mg/dL AST (5-37) U/L ALT (0-40) U/L Alkaline Phosphatase (39-117) U/L Total Protein (6.5-8.0) g/dL Albumin (3.5-5.0) g/dL Lipase (8-78) U/L Urine Color Urine Appearance Urine pH (5.0-9.0) Ur Specific [place] (1.005-1.025) Urine Protein (Neg-Trace) mg/dL Urine Glucose (UA) (Negative) mg/dL Urine Ketones (Negative) mg/dL Urine Blood (Negative) Urine Nitrite (Negative) Ur Leukocyte Esterase (Negative) Urine RBC (0-2) /HPF Urine WBC (0-5) /HPF Ur Squamous Epith Cells (0-2) /HPF Urine Bacteria (None Seen) Hyaline Casts (0-2) /LPF COVID-19 (KASH) (Negative) COVID-19 Clin Com 08/28/22 08/28/22 08/28/22 Range/Units 18:01 18:01 18:55 WBC (4.8-10.8) X10*3/uL RBC (4.60-5.80) X10*6/uL Hgb (14.0-18.0) g/dl Hct (42.0-52.0) % MCV (80.0-98.0) fL MCH (27.0-33.0) pg MCHC (31.0-36.0) g/dl RDW (11.0-16.0) % Plt Count (160-400) X10*3/uL MPV (9.4-12.4) fL Immature Gran % (Auto) Neut % (Auto) Lymph % (Auto) [place] % (Auto) Eos % (Auto) Baso % (Auto) Lymph # (Auto) [place] # (Auto) Eos # (Auto) Baso # (Auto) Abs Immat Gran (auto) Absolute Neuts (auto) Absolute Nucleated RBC (0.0-0.012) X10*3/uL Nucleated RBC % (auto) (0.0-0.2) /100WBC Neutrophils % (Manual) (45-73) % Band Neutrophils % (3-5) % Lymphocytes % (Manual) (20-40) % Monocytes % (Manual) (2-11) % Eosinophils % (Manual) (0-4) % Metamyelocytes % % Abs Neuts (Manual) (2.0-8.3) X10*3/uL Lymphocytes # (Manual) (1.2-4.9) X10*3/uL Monocytes # (Manual) (0.1-1.2) X10*3/uL Eosinophils # (Manual) (0.0-0.4) X10*3/uL Metamyelocytes # X10*3/uL Nucleated RBCs (0-0) /100WBC Platelet Estimate (NORMAL) Large Platelets Giant Platelets Plt Morphology Comment RBC Morphology Pappenheimer Bodies Hi Cells /OIF Acanthocytes (Spur) /OIF PT (10.0-13.1) SEC INR (0.9-1.1) Sodium 137 (135-145) mmol/L Potassium 4.3 (3.3-5.1) mmol/L Chloride 102 (96-108) mmol/L Carbon Dioxide 24 (22-29) mmol/L Anion Gap 15 (12-20) BUN 16 (9-16) mg/dL Creatinine 1.03 (0.5-1.4) mg/dL Estim Creat Clear Calc 73.4 Estimated GFR > 60 POC Glucose (60-115) mg/dL Random Glucose 159 H (60-115) mg/dL Lactic Acid (0.5-2.0) mmol/L Calcium 10.0 (8.4-10.2) mg/dL Magnesium 1.8 (1.6-2.6) mg/dL Total Bilirubin 2.2 H (0.0-1.0) mg/dL Direct Bilirubin 0.6 H (0.0-0.5) mg/dL AST 25 (5-37) U/L ALT 16 (0-40) U/L Alkaline Phosphatase 92 (39-117) U/L Total Protein 7.7 (6.5-8.0) g/dL Albumin 4.1 (3.5-5.0) g/dL Lipase 10 (8-78) U/L Urine Color Yellow Urine Appearance Clear Urine pH 6.5 (5.0-9.0) Ur Specific [place] 1.015 (1.005-1.025) Urine Protein Negative (Neg-Trace) mg/dL Urine Glucose (UA) Negative (Negative) mg/dL Urine Ketones Negative (Negative) mg/dL Urine Blood Negative (Negative) Urine Nitrite Negative (Negative) Ur Leukocyte Esterase Small (1+) H (Negative) Urine RBC 0-2 (0-2) /HPF Urine WBC 11-20 H (0-5) /HPF Ur Squamous Epith Cells 0-2 (0-2) /HPF Urine Bacteria None Seen (None Seen) Hyaline Casts 0-2 (0-2) /LPF COVID-19 (KASH) Positive A (Negative) COVID-19 Clin Com See Note 08/28/22 08/28/22 Range/Units 19:19 23:27 WBC (4.8-10.8) X10*3/uL RBC (4.60-5.80) X10*6/uL Hgb (14.0-18.0) g/dl Hct (42.0-52.0) % MCV (80.0-98.0) fL MCH (27.0-33.0) pg MCHC (31.0-36.0) g/dl RDW (11.0-16.0) % Plt Count (160-400) X10*3/uL MPV (9.4-12.4) fL Immature Gran % (Auto) Neut % (Auto) Lymph % (Auto) [place] % (Auto) Eos % (Auto) Baso % (Auto) Lymph # (Auto) [place] # (Auto) Eos # (Auto) Baso # (Auto) Abs Immat Gran (auto) Absolute Neuts (auto) Absolute Nucleated RBC (0.0-0.012) X10*3/uL Nucleated RBC % (auto) (0.0-0.2) /100WBC Neutrophils % (Manual) (45-73) % Band Neutrophils % (3-5) % Lymphocytes % (Manual) (20-40) % Monocytes % (Manual) (2-11) % Eosinophils % (Manual) (0-4) % Metamyelocytes % % Abs Neuts (Manual) (2.0-8.3) X10*3/uL Lymphocytes # (Manual) (1.2-4.9) X10*3/uL Monocytes # (Manual) (0.1-1.2) X10*3/uL Eosinophils # (Manual) (0.0-0.4) X10*3/uL Metamyelocytes # X10*3/uL Nucleated RBCs (0-0) /100WBC Platelet Estimate (NORMAL) Large Platelets Giant Platelets Plt Morphology Comment RBC Morphology Pappenheimer Bodies [place]ellen Cells /OIF Acanthocytes (Spur) /OIF PT (10.0-13.1) SEC INR (0.9-1.1) Sodium (135-145) mmol/L Potassium (3.3-5.1) mmol/L Chloride (96-108) mmol/L Carbon Dioxide (22-29) mmol/L Anion Gap (12-20) BUN (9-16) mg/dL Creatinine (0.5-1.4) mg/dL Estim Creat Clear Calc Estimated GFR POC Glucose 131 H (60-115) mg/dL Random Glucose (60-115) mg/dL Lactic Acid 1.8 (0.5-2.0) mmol/L Calcium (8.4-10.2) mg/dL Magnesium (1.6-2.6) mg/dL Total Bilirubin (0.0-1.0) mg/dL Direct Bilirubin (0.0-0.5) mg/dL AST (5-37) U/L ALT (0-40) U/L Alkaline Phosphatase (39-117) U/L Total Protein (6.5-8.0) g/dL Albumin (3.5-5.0) g/dL Lipase (8-78) U/L Urine Color Urine Appearance Urine pH (5.0-9.0) Ur Specific [place] (1.005-1.025) Urine Protein (Neg-Trace) mg/dL Urine Glucose (UA) (Negative) mg/dL Urine Ketones (Negative) mg/dL Urine Blood (Negative) Urine Nitrite (Negative) Ur Leukocyte Esterase (Negative) Urine RBC (0-2) /HPF Urine WBC (0-5) /HPF Ur Squamous Epith Cells (0-2) /HPF Urine Bacteria (None Seen) Hyaline Casts (0-2) /LPF COVID-19 (KASH) (Negative) COVID-19 Clin Com <MARIFER Valdivia - Last Filed: 08/28/22 17:36> Lab Results 08/28/22 08/28/22 08/28/22 Range/Units 17:34 18:01 18:01 WBC 11.2 H (4.8-10.8) X10*3/uL RBC 4.97 (4.60-5.80) X10*6/uL Hgb 15.4 (14.0-18.0) g/dl Hct 42.1 (42.0-52.0) % MCV 84.7 (80.0-98.0) fL MCH 31.0 (27.0-33.0) pg MCHC 36.6 H (31.0-36.0) g/dl RDW 12.8 (11.0-16.0) % Plt Count 404 H D (160-400) X10*3/uL MPV 10.8 (9.4-12.4) fL Immature Gran % (Auto) Cancelled Neut % (Auto) Cancelled Lymph % (Auto) Cancelled [place] % (Auto) Cancelled Eos % (Auto) Cancelled Baso % (Auto) Cancelled Lymph # (Auto) Cancelled [place] # (Auto) Cancelled Eos # (Auto) Cancelled Baso # (Auto) Cancelled Abs Immat Gran (auto) Cancelled Absolute Neuts (auto) Cancelled Absolute Nucleated RBC 0.000 (0.0-0.012) X10*3/uL Nucleated RBC % (auto) 0.0 (0.0-0.2) /100WBC Neutrophils % (Manual) 78 H (45-73) % Band Neutrophils % 6 H (3-5) % Lymphocytes % (Manual) 8 L (20-40) % Monocytes % (Manual) 6 (2-11) % Eosinophils % (Manual) 1 (0-4) % Metamyelocytes % 1 % Abs Neuts (Manual) 9.4 H (2.0-8.3) X10*3/uL Lymphocytes # (Manual) 0.9 L (1.2-4.9) X10*3/uL Monocytes # (Manual) 0.7 (0.1-1.2) X10*3/uL Eosinophils # (Manual) 0.1 (0.0-0.4) X10*3/uL Metamyelocytes # 0.1 X10*3/uL Nucleated RBCs 1 H (0-0) /100WBC Platelet Estimate NORMAL (NORMAL) Large Platelets PRESENT Giant Platelets PRESENT Plt Morphology Comment NOTED RBC Morphology NOTED Pappenheimer Bodies PRESENT [place] Cells 3+ (>5) /OIF Acanthocytes (Spur) 1+ (0-2) /OIF PT 13.0 (10.0-13.1) SEC INR 1.1 (0.9-1.1) Sodium (135-145) mmol/L Potassium (3.3-5.1) mmol/L Chloride (96-108) mmol/L Carbon Dioxide (22-29) mmol/L Anion Gap (12-20) BUN (9-16) mg/dL Creatinine (0.5-1.4) mg/dL Estim Creat Clear Calc Estimated GFR POC Glucose 158 H (60-115) mg/dL Random Glucose (60-115) mg/dL Lactic Acid (0.5-2.0) mmol/L Calcium (8.4-10.2) mg/dL Magnesium (1.6-2.6) mg/dL Total Bilirubin (0.0-1.0) mg/dL Direct Bilirubin (0.0-0.5) mg/dL AST (5-37) U/L ALT (0-40) U/L Alkaline Phosphatase (39-117) U/L Total Protein (6.5-8.0) g/dL Albumin (3.5-5.0) g/dL Lipase (8-78) U/L Urine Color Urine Appearance Urine pH (5.0-9.0) Ur Specific [place] (1.005-1.025) Urine Protein (Neg-Trace) mg/dL Urine Glucose (UA) (Negative) mg/dL Urine Ketones (Negative) mg/dL Urine Blood (Negative) Urine Nitrite (Negative) Ur Leukocyte Esterase (Negative) Urine RBC (0-2) /HPF Urine WBC (0-5) /HPF Ur Squamous Epith Cells (0-2) /HPF Urine Bacteria (None Seen) Hyaline Casts (0-2) /LPF COVID-19 (KASH) (Negative) COVID-19 Clin Com 08/28/22 08/28/22 08/28/22 Range/Units 18:01 18:01 18:55 WBC (4.8-10.8) X10*3/uL RBC (4.60-5.80) X10*6/uL Hgb (14.0-18.0) g/dl Hct (42.0-52.0) % MCV (80.0-98.0) fL MCH (27.0-33.0) pg MCHC (31.0-36.0) g/dl RDW (11.0-16.0) % Plt Count (160-400) X10*3/uL MPV (9.4-12.4) fL Immature Gran % (Auto) Neut % (Auto) Lymph % (Auto) [place] % (Auto) Eos % (Auto) Baso % (Auto) Lymph # (Auto) [place] # (Auto) Eos # (Auto) Baso # (Auto) Abs Immat Gran (auto) Absolute Neuts (auto) Absolute Nucleated RBC (0.0-0.012) X10*3/uL Nucleated RBC % (auto) (0.0-0.2) /100WBC Neutrophils % (Manual) (45-73) % Band Neutrophils % (3-5) % Lymphocytes % (Manual) (20-40) % Monocytes % (Manual) (2-11) % Eosinophils % (Manual) (0-4) % Metamyelocytes % % Abs Neuts (Manual) (2.0-8.3) X10*3/uL Lymphocytes # (Manual) (1.2-4.9) X10*3/uL Monocytes # (Manual) (0.1-1.2) X10*3/uL Eosinophils # (Manual) (0.0-0.4) X10*3/uL Metamyelocytes # X10*3/uL Nucleated RBCs (0-0) /100WBC Platelet Estimate (NORMAL) Large Platelets Giant Platelets Plt Morphology Comment RBC Morphology Pappenheimer Bodies Hi Cells /OIF Acanthocytes (Spur) /OIF PT (10.0-13.1) SEC INR (0.9-1.1) Sodium 137 (135-145) mmol/L Potassium 4.3 (3.3-5.1) mmol/L Chloride 102 (96-108) mmol/L Carbon Dioxide 24 (22-29) mmol/L Anion Gap 15 (12-20) BUN 16 (9-16) mg/dL Creatinine 1.03 (0.5-1.4) mg/dL Estim Creat Clear Calc 73.4 Estimated GFR > 60 POC Glucose (60-115) mg/dL Random Glucose 159 H (60-115) mg/dL Lactic Acid (0.5-2.0) mmol/L Calcium 10.0 (8.4-10.2) mg/dL Magnesium 1.8 (1.6-2.6) mg/dL Total Bilirubin 2.2 H (0.0-1.0) mg/dL Direct Bilirubin 0.6 H (0.0-0.5) mg/dL AST 25 (5-37) U/L ALT 16 (0-40) U/L Alkaline Phosphatase 92 (39-117) U/L Total Protein 7.7 (6.5-8.0) g/dL Albumin 4.1 (3.5-5.0) g/dL Lipase 10 (8-78) U/L Urine Color Yellow Urine Appearance Clear Urine pH 6.5 (5.0-9.0) Ur Specific [place] 1.015 (1.005-1.025) Urine Protein Negative (Neg-Trace) mg/dL Urine Glucose (UA) Negative (Negative) mg/dL Urine Ketones Negative (Negative) mg/dL Urine Blood Negative (Negative) Urine Nitrite Negative (Negative) Ur Leukocyte Esterase Small (1+) H (Negative) Urine RBC 0-2 (0-2) /HPF Urine WBC 11-20 H (0-5) /HPF Ur Squamous Epith Cells 0-2 (0-2) /HPF Urine Bacteria None Seen (None Seen) Hyaline Casts 0-2 (0-2) /LPF COVID-19 (KASH) Positive A (Negative) COVID-19 Clin Com See Note 08/28/22 08/28/22 Range/Units 19:19 23:27 WBC (4.8-10.8) X10*3/uL RBC (4.60-5.80) X10*6/uL Hgb (14.0-18.0) g/dl Hct (42.0-52.0) % MCV (80.0-98.0) fL MCH (27.0-33.0) pg MCHC (31.0-36.0) g/dl RDW (11.0-16.0) % Plt Count (160-400) X10*3/uL MPV (9.4-12.4) fL Immature Gran % (Auto) Neut % (Auto) Lymph % (Auto) [place] % (Auto) Eos % (Auto) Baso % (Auto) Lymph # (Auto) [place] # (Auto) Eos # (Auto) Baso # (Auto) Abs Immat Gran (auto) Absolute Neuts (auto) Absolute Nucleated RBC (0.0-0.012) X10*3/uL Nucleated RBC % (auto) (0.0-0.2) /100WBC Neutrophils % (Manual) (45-73) % Band Neutrophils % (3-5) % Lymphocytes % (Manual) (20-40) % Monocytes % (Manual) (2-11) % Eosinophils % (Manual) (0-4) % Metamyelocytes % % Abs Neuts (Manual) (2.0-8.3) X10*3/uL Lymphocytes # (Manual) (1.2-4.9) X10*3/uL Monocytes # (Manual) (0.1-1.2) X10*3/uL Eosinophils # (Manual) (0.0-0.4) X10*3/uL Metamyelocytes # X10*3/uL Nucleated RBCs (0-0) /100WBC Platelet Estimate (NORMAL) Large Platelets Giant Platelets Plt Morphology Comment RBC Morphology Pappenheimer Bodies Hi Cells /OIF Acanthocytes (Spur) /OIF PT (10.0-13.1) SEC INR (0.9-1.1) Sodium (135-145) mmol/L Potassium (3.3-5.1) mmol/L Chloride (96-108) mmol/L Carbon Dioxide (22-29) mmol/L Anion Gap (12-20) BUN (9-16) mg/dL Creatinine (0.5-1.4) mg/dL Estim Creat Clear Calc Estimated GFR POC Glucose 131 H (60-115) mg/dL Random Glucose (60-115) mg/dL Lactic Acid 1.8 (0.5-2.0) mmol/L Calcium (8.4-10.2) mg/dL Magnesium (1.6-2.6) mg/dL Total Bilirubin (0.0-1.0) mg/dL Direct Bilirubin (0.0-0.5) mg/dL AST (5-37) U/L ALT (0-40) U/L Alkaline Phosphatase (39-117) U/L Total Protein (6.5-8.0) g/dL Albumin (3.5-5.0) g/dL Lipase (8-78) U/L Urine Color Urine Appearance Urine pH (5.0-9.0) Ur Specific [place] (1.005-1.025) Urine Protein (Neg-Trace) mg/dL Urine Glucose (UA) (Negative) mg/dL Urine Ketones (Negative) mg/dL Urine Blood (Negative) Urine Nitrite (Negative) Ur Leukocyte Esterase (Negative) Urine RBC (0-2) /HPF Urine WBC (0-5) /HPF Ur Squamous Epith Cells (0-2) /HPF Urine Bacteria (None Seen) Hyaline Casts (0-2) /LPF COVID-19 (KASH) (Negative) COVID-19 Clin Com <Jackelin Fall NP - Last Filed: 08/29/22 00:07> Imaging Data Chest x-ray: Attestation: I personally reviewed and interpreted this imaging study as follows: <Jackelin Fall NP - Last Filed: 08/29/22 00:07> Radiologist's impression: [id number] [place] [address] XRay Report Signed Patient: Casey Sewell Jr MR#: [id number] : 1945 Acct:[id number] Age/Sex: 77 / M ADM Date: 08/28/22 Loc: .ED Attending Dr: Ordering Physician: Jackelin Fall NP Date of Service: 08/28/22 Procedure(s): XR chest 1V Accession Number(s): [id number] cc: Jackelin Fall NP~ EXAMINATION: XR chest 1V CLINICAL INFORMATION: Reason for Exam cough, covid + COMPARISON: Chest radiograph? 08/21/2022 TECHNIQUE: One view of the chest FINDINGS: Few ill-defined hazy parenchymal airspace opacities which could be seen in the setting of multifocal infection, including atypical/viral infection. No pneumothorax or pleural effusion. Normal cardiomediastinal silhouette. Upper abdominal surgical clips. XR/XR chest 1V IMPRESSION: Few ill-defined hazy parenchymal airspace opacities which could be seen in the setting of multifocal infection, including atypical/viral infection. <Jackelin Fall NP - Last Filed: 08/29/22 00:07> Discharge Plan Discharge Clinical Impression: COVID-19, UTI (urinary tract infection) <MARIFER Valdivia - Last Filed: 08/28/22 17:36> Patient Disposition: Home, Self-Care <MARIFER Valdivia - Last Filed: 08/28/22 17:36> Instructions: Urinary Tract Infection in Men (ED), COVID-19 (Coronavirus Disease 2019) (ED) <MARIFER Valdivia - Last Filed: 08/28/22 17:36> Additional Instructions: Your COVID test is positive. Quarantine for 5 days. We discussed Paxlovi d but at this time you were not interested in being prescribed this. Motrin or Tylenol if able as needed for pain or fever. Increase fluids at home. You do have a mild urinary tract infection. Start the antibiotics tomorrow. We did offer admission to the hospital you prefer to go home. Please return for any chest pain, shortness of breath, weakness or worsening since <MARIFER Valdivia - Last Filed: 08/28/22 17:36> Prescriptions: New cephalexin 500 mg capsule 500 mg PO TID Qty: 21 0RF No Action ketoconazole 2 % cream 1 appl topical DAILY 90 Days Qty: 60 2RF (DME) insulin syringe-needle U-100 [BD Insulin Syringe Ultra-Fine] 1 mL 30 gauge x 1/2 syringe See Rx Instructions .Route Qty: 200 0RF Rx Instructions: Use to inject insulin twice per day vitamin B complex Capsule 1 cap PO DAILY zinc 50 mg Capsule 50 mg PO DAILY pyoetds-rjgq-vhcrk-oreg-capryl 100 mg-150 mg- 50 mg-150 mg capsule 500 cap PO DAILY cholecalciferol (vitamin D3) 100 mcg (4,000 unit) capsule 100 mcg PO DAILY ascorbate calcium (vitamin C) 500 mg tablet 500 mg PO DAILY Humulin N NPH U-100 Insulin 100 unit/mL suspension 30 unit subcut BID 90 Days Qty: 60 3RF rosuvastatin 5 mg tablet 5 mg PO DAILY 90 Days Qty: 90 0RF <MARIFER Valdivia - Last Filed: 08/28/22 17:36> Referrals: Stuart Will, [facility] [Primary Care Provider] - 1 week <MARIFER Valdivia - Last Filed: 08/28/22 17:36>
[2022-08-28 18:19] LABS: INTERNATIONAL NORM RATIO 1.1 (0.9-1.1)
[2022-08-28 18:26] LABS: Hematocrit 42.1 % (42.0-52.0); Hemoglobin 15.4 g/dl (14.0-18.0); Mean Corpuscular HGB Conc 36.6 g/dl (31.0-36.0); Mean Corpuscular Volume 84.7 fL (80.0-98.0); Mean Platelet Volume 10.8 fL (9.4-12.4); Platelet Count 404 X10*3/uL (160-400); Red Blood Count 4.97 X10*6/uL (4.60-5.80); Red Cell Distribution Width 12.8 % (11.0-16.0)
[2022-08-28 18:28] LABS: COVID-19 Test Positive (Negative); IDNOW Serial# 16C4AD1C; WBC ABN SCTR FOR CBC 1
[2022-08-28 18:29] LABS: Alanine Aminotransferase 16 U/L (0-40); Albumin Level 4.1 g/dL (3.5-5.0); Alkaline Phosphatase 92 U/L (39-117); Anion Gap 15 (12-20); Aspartate Amino Transferase 25 U/L (5-37); Bilirubin Direct 0.6 mg/dL (0.0-0.5); Bilirubin Total 2.2 mg/dL (0.0-1.0); Blood Urea Nitrogen 16 mg/dL (9-16); Carbon Dioxide 24 mmol/L (22-29); Chloride 102 mmol/L (96-108); Creatinine Clr Calc Pharmacy 73.4; Estimated Glomerular Filt Rate > 60; Glucose Random 159 mg/dL (60-115); Lipase 10 U/L (8-78); Magnesium 1.8 mg/dL (1.6-2.6); Potassium 4.3 mmol/L (3.3-5.1); Sodium 137 mmol/L (135-145); Total Protein 7.7 g/dL (6.5-8.0)
[2022-08-28 18:31] LABS: Band Neutrophils Percent 6 % (3-5); Eosinophils Percent Manual 1 % (0-4); Lymphocytes Percent Manual 8 % (20-40); Metamyelocytes Percent 1 %; Monocytes Percent Manual 6 % (2-11); Neutrophils Percent Manual 78 % (45-73)
[2022-08-28 18:35] LABS: Giant Platelet PRESENT; Large Platelet PRESENT; Nucleated Red Blood Cells 1 /100WBC (0-0); Platelet Estimate NORMAL (NORMAL); Platelet Morphology Comment NOTED; RBC Morphology NOTED
[2022-08-28 18:36] LABS: Acanthocytes 1+ (0-2) /OIF; Burr Cells 3+ (>5) /OIF; Pappenheimer Bodies PRESENT
[2022-08-28 18:37] LABS: Eosinophils Absolute Manual 0.1 X10*3/uL (0.0-0.4); Lymphocytes Absolute Manual 0.9 X10*3/uL (1.2-4.9); Metamyelocytes Absolute 0.1 X10*3/uL; Monocytes Absolute Manual 0.7 X10*3/uL (0.1-1.2); Neutrophils Absolute Manual 9.4 X10*3/uL (2.0-8.3); White Blood Count 11.2 X10*3/uL (4.8-10.8)
[2022-08-28 19:02] LABS: Appearance Urine Clear; Color Urine Yellow; Glucose Urine UA Negative (Negative); Leukocyte Esterase Urine Small (1+) (Negative); Nitrite Urine Negative (Negative); PH 6.5 (5.0-9.0); Specific Gravity - Urine 1.015 (1.005-1.025); UMIC TRIGGER UACC YES; Urine Blood Negative (Negative); Urine Ketones Negative (Negative); Urine Protein Negative (Neg-Trace)
[2022-08-28 19:08] LABS: Bacteria Urine None Seen (None Seen); Hyaline Casts Urine 0-2 /LPF (0-2); RBC Urine 0-2 /HPF (0-2); Squamous Epithelial Cell Urine 0-2 /HPF (0-2); UACC Culture Trigger YES
[2022-08-28 19:20] LABS: Glucose, Whole Blood 158 mg/dL (60-115)
[2022-08-28 19:41] VITALS: BP 142/70; PULSE 119; RESP 19; TEMP 38.4; O2SAT 98
[2022-08-28 19:49] LABS: Lactic Acid 1.8 mmol/L (0.5-2.0)
--- NOTE | 2022-08-28 19:52 | ED.MALEGU ---
HPI - Male Genitourinary General Chief complaint: Urogenital-Male Stated complaint: ? uti septic shock Time Seen by Provider: 08/28/22 19:36 Source: patient Mode of arrival: ambulatory Limitations: no limitations Related Data Home Medications Medication Instructions Recorded Confirmed zinc 50 mg capsule 50 mg PO DAILY 08/13/20 08/28/22 vitamin B complex 1 cap PO DAILY 10/14/20 08/28/22 cholecalciferol (vitamin D3) 100 100 mcg PO DAILY 11/20/20 08/28/22 mcg (4,000 unit) capsule ascorbate calcium (vitamin C) 500 500 mg PO DAILY 08/01/21 08/28/22 mg tablet tumeric 100 mg-steve 150 mg-olive 500 cap PO DAILY 09/03/21 08/28/22 50 mg-oreg 150 mg-caprylate capsule Previous Rx's Medication Instructions Recorded ketoconazole 2 % topical cream 1 appl topical DAILY 90 days #60 07/22/22 grams insulin syringe-needle U-100 1 mL #200 ea 08/07/22 30 gauge x 1/2 (BD Insulin Syringe Ultra-Fine) insulin NPH isoph U-100 human 100 30 unit (0.3 mL) subcut BID 90 08/24/22 unit/mL subcutaneous suspension days #60 mL (Humulin N NPH U-100 Insulin (isophane susp)) rosuvastatin 5 mg tablet 5 mg PO DAILY 90 days #90 tabs 08/24/22 Allergies Allergy/AdvReac Type Severity Reaction Status Date / Time penicillamine Allergy Unknown unknown Verified 08/28/22 15:42 Review of Systems Review of Systems: Yes all other systems are reviewed and are negative Constitutional: Constitutional: Reports no additional constitutional complaints, Denies body ache(s), Reports chills, Denies fever(s), Denies headache(s) and Denies weakness Eyes: Eyes: Reports no additional eye complaints and Denies change in vision ENT: Reports system reviewed and no additional complaints, except as documented, Denies dizziness, Denies headache(s), Denies nasal congestion, Denies nasal discharge and Denies neck pain Cardiovascular: Cardiovascular: Reports no additional cardiovascular complaints, Denies chest pain, Denies leg edema and Denies dyspnea Respiratory: Respiratory: Reports no additional respiratory complaints, Denies cough and Denies dyspnea Gastrointestinal: Gastrointestinal: Reports no additional gastrointestinal complaints, Denies abdominal pain, Denies diarrhea, Denies nausea and Denies vomiting Genitourinary: Genitourinary: Denies urinary incontinence Musculoskeletal: Musculoskeletal: Reports no additional musculoskeletal complaints, Reports back pain, Denies arthralgias, Denies joint swelling, Denies neck pain, Denies numbness and Denies tingling Integumentary/Breasts: Skin/Breast: Reports system reviewed and no additional complaints, except as docu and Denies rash Neurologic: Reports system reviewed and no additional complaints, except as documented, Denies dizziness, Denies headache(s), Denies numbness, Denies tingling and Denies weakness PMFSH Past Medical History Medical History Cholecystectomy planned CKD (chronic kidney disease) Diabetes Diabetic retinopathy History of colon cancer Necrosis of right ureter Osteoarthritis 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 Peripheral neuropathy Pulmonary sarcoidosis PVD (peripheral vascular disease) Renal stones Sarcoidosis Skin cancer Spherocytosis Spinal stenosis Surgical History H/O right hemicolectomy H/O splenectomy History of surgical removal of pilonidal cyst History of tonsillectomy and adenoidectomy History of ureter repair Hx of cholecystectomy Hx of colonoscopy S/P ureteral reimplantation Status post laser lithotripsy of ureteral calculus Family History Family History Mother Thyroid cancer Other Mental health disorder Social History Social History Household Members: Friend(s) Housing: House Are you a primary manager care management to a significant other at home: No Do you presently have visiting nurse or other home services: No Alcohol intake: never Patient Tobacco Use Status: Never used Tobacco e-Cigarette/Vaping Use: Never Used Second Hand Smoke Exposure: No service: No Current occupational status: employed and retired Cognitive needs: No Hearing needs: No Vision needs: No Physical Exam Vital Signs: Vital Signs: Last Vital Signs Temp 101.2 F H 08/28/22 19:41 Pulse 119 H 08/28/22 19:41 Resp 19 08/28/22 19:41 BP 142/70 H 08/28/22 19:41 Pulse Ox 98 08/28/22 19:41 O2 Del Method 08/28/22 19:41 BMI result Body Mass Index 30.7 MDM - Male Genitourinary Lab Data Result diagrams: 08/28/22 18:01 08/28/22 18:01 Labs: Lab Results 08/28/22 08/28/22 08/28/22 Range/Units 17:34 18:01 18:01 WBC 11.2 H (4.8-10.8) X10*3/uL RBC 4.97 (4.60-5.80) X10*6/uL Hgb 15.4 (14.0-18.0) g/dl Hct 42.1 (42.0-52.0) % MCV 84.7 (80.0-98.0) fL MCH 31.0 (27.0-33.0) pg MCHC 36.6 H (31.0-36.0) g/dl RDW 12.8 (11.0-16.0) % Plt Count 404 H D (160-400) X10*3/uL MPV 10.8 (9.4-12.4) fL Immature Gran % (Auto) Cancelled Neut % (Auto) Cancelled Lymph % (Auto) Cancelled [place] % (Auto) Cancelled Eos % (Auto) Cancelled Baso % (Auto) Cancelled Lymph # (Auto) Cancelled [place] # (Auto) Cancelled Eos # (Auto) Cancelled Baso # (Auto) Cancelled Abs Immat Gran (auto) Cancelled Absolute Neuts (auto) Cancelled Absolute Nucleated RBC 0.000 (0.0-0.012) X10*3/uL Nucleated RBC % (auto) 0.0 (0.0-0.2) /100WBC Neutrophils % (Manual) 78 H (45-73) % Band Neutrophils % 6 H (3-5) % Lymphocytes % (Manual) 8 L (20-40) % Monocytes % (Manual) 6 (2-11) % Eosinophils % (Manual) 1 (0-4) % Metamyelocytes % 1 % Abs Neuts (Manual) 9.4 H (2.0-8.3) X10*3/uL Lymphocytes # (Manual) 0.9 L (1.2-4.9) X10*3/uL Monocytes # (Manual) 0.7 (0.1-1.2) X10*3/uL Eosinophils # (Manual) 0.1 (0.0-0.4) X10*3/uL Metamyelocytes # 0.1 X10*3/uL Nucleated RBCs 1 H (0-0) /100WBC Platelet Estimate NORMAL (NORMAL) Large Platelets PRESENT Giant Platelets PRESENT Plt Morphology Comment NOTED RBC Morphology NOTED Pappenheimer Bodies PRESENT Hi Cells 3+ (>5) /OIF Acanthocytes (Spur) 1+ (0-2) /OIF PT 13.0 (10.0-13.1) SEC INR 1.1 (0.9-1.1) Sodium (135-145) mmol/L Potassium (3.3-5.1) mmol/L Chloride (96-108) mmol/L Carbon Dioxide (22-29) mmol/L Anion Gap (12-20) BUN (9-16) mg/dL Creatinine (0.5-1.4) mg/dL Estim Creat Clear Calc Estimated GFR POC Glucose 158 H (60-115) mg/dL Random Glucose (60-115) mg/dL Lactic Acid (0.5-2.0) mmol/L Calcium (8.4-10.2) mg/dL Magnesium (1.6-2.6) mg/dL Total Bilirubin (0.0-1.0) mg/dL Direct Bilirubin (0.0-0.5) mg/dL AST (5-37) U/L ALT (0-40) U/L Alkaline Phosphatase (39-117) U/L Total Protein (6.5-8.0) g/dL Albumin (3.5-5.0) g/dL Lipase (8-78) U/L Urine Color Urine Appearance Urine pH (5.0-9.0) Ur Specific [place] (1.005-1.025) Urine Protein (Neg-Trace) mg/dL Urine Glucose (UA) (Negative) mg/dL Urine Ketones (Negative) mg/dL Urine Blood (Negative) Urine Nitrite (Negative) Ur Leukocyte Esterase (Negative) Urine RBC (0-2) /HPF Urine WBC (0-5) /HPF Ur Squamous Epith Cells (0-2) /HPF Urine Bacteria (None Seen) Hyaline Casts (0-2) /LPF COVID-19 (KASH) (Negative) COVID-19 Clin Com 08/28/22 08/28/22 08/28/22 Range/Units 18:01 18:01 18:55 WBC (4.8-10.8) X10*3/uL RBC (4.60-5.80) X10*6/uL Hgb (14.0-18.0) g/dl Hct (42.0-52.0) % MCV (80.0-98.0) fL MCH (27.0-33.0) pg MCHC (31.0-36.0) g/dl RDW (11.0-16.0) % Plt Count (160-400) X10*3/uL MPV (9.4-12.4) fL Immature Gran % (Auto) Neut % (Auto) Lymph % (Auto) [place] % (Auto) Eos % (Auto) Baso % (Auto) Lymph # (Auto) [place] # (Auto) Eos # (Auto) Baso # (Auto) Abs Immat Gran (auto) Absolute Neuts (auto) Absolute Nucleated RBC (0.0-0.012) X10*3/uL Nucleated RBC % (auto) (0.0-0.2) /100WBC Neutrophils % (Manual) (45-73) % Band Neutrophils % (3-5) % Lymphocytes % (Manual) (20-40) % Monocytes % (Manual) (2-11) % Eosinophils % (Manual) (0-4) % Metamyelocytes % % Abs Neuts (Manual) (2.0-8.3) X10*3/uL Lymphocytes # (Manual) (1.2-4.9) X10*3/uL Monocytes # (Manual) (0.1-1.2) X10*3/uL Eosinophils # (Manual) (0.0-0.4) X10*3/uL Metamyelocytes # X10*3/uL Nucleated RBCs (0-0) /100WBC Platelet Estimate (NORMAL) Large Platelets Giant Platelets Plt Morphology Comment RBC Morphology Pappenheimer Bodies Hi Cells /OIF Acanthocytes (Spur) /OIF PT (10.0-13.1) SEC INR (0.9-1.1) Sodium 137 (135-145) mmol/L Potassium 4.3 (3.3-5.1) mmol/L Chloride 102 (96-108) mmol/L Carbon Dioxide 24 (22-29) mmol/L Anion Gap 15 (12-20) BUN 16 (9-16) mg/dL Creatinine 1.03 (0.5-1.4) mg/dL Estim Creat Clear Calc 73.4 Estimated GFR > 60 POC Glucose (60-115) mg/dL Random Glucose 159 H (60-115) mg/dL Lactic Acid (0.5-2.0) mmol/L Calcium 10.0 (8.4-10.2) mg/dL Magnesium 1.8 (1.6-2.6) mg/dL Total Bilirubin 2.2 H (0.0-1.0) mg/dL Direct Bilirubin 0.6 H (0.0-0.5) mg/dL AST 25 (5-37) U/L ALT 16 (0-40) U/L Alkaline Phosphatase 92 (39-117) U/L Total Protein 7.7 (6.5-8.0) g/dL Albumin 4.1 (3.5-5.0) g/dL Lipase 10 (8-78) U/L Urine Color Yellow Urine Appearance Clear Urine pH 6.5 (5.0-9.0) Ur Specific [place] 1.015 (1.005-1.025) Urine Protein Negative (Neg-Trace) mg/dL Urine Glucose (UA) Negative (Negative) mg/dL Urine Ketones Negative (Negative) mg/dL Urine Blood Negative (Negative) Urine Nitrite Negative (Negative) Ur Leukocyte Esterase Small (1+) H (Negative) Urine RBC 0-2 (0-2) /HPF Urine WBC 11-20 H (0-5) /HPF Ur Squamous Epith Cells 0-2 (0-2) /HPF Urine Bacteria None Seen (None Seen) Hyaline Casts 0-2 (0-2) /LPF COVID-19 (KASH) Positive A (Negative) COVID-19 Clin Com See Note 08/28/22 Range/Units 19:19 WBC (4.8-10.8) X10*3/uL RBC (4.60-5.80) X10*6/uL Hgb (14.0-18.0) g/dl Hct (42.0-52.0) % MCV (80.0-98.0) fL MCH (27.0-33.0) pg MCHC (31.0-36.0) g/dl RDW (11.0-16.0) % Plt Count (160-400) X10*3/uL MPV (9.4-12.4) fL Immature Gran % (Auto) Neut % (Auto) Lymph % (Auto) [place] % (Auto) Eos % (Auto) Baso % (Auto) Lymph # (Auto) [place] # (Auto) Eos # (Auto) Baso # (Auto) Abs Immat Gran (auto) Absolute Neuts (auto) Absolute Nucleated RBC (0.0-0.012) X10*3/uL Nucleated RBC % (auto) (0.0-0.2) /100WBC Neutrophils % (Manual) (45-73) % Band Neutrophils % (3-5) % Lymphocytes % (Manual) (20-40) % Monocytes % (Manual) (2-11) % Eosinophils % (Manual) (0-4) % Metamyelocytes % % Abs Neuts (Manual) (2.0-8.3) X10*3/uL Lymphocytes # (Manual) (1.2-4.9) X10*3/uL Monocytes # (Manual) (0.1-1.2) X10*3/uL Eosinophils # (Manual) (0.0-0.4) X10*3/uL Metamyelocytes # X10*3/uL Nucleated RBCs (0-0) /100WBC Platelet Estimate (NORMAL) Large Platelets Giant Platelets Plt Morphology Comment RBC Morphology Pappenheimer Bodies [place] Cells /OIF Acanthocytes (Spur) /OIF PT (10.0-13.1) SEC INR (0.9-1.1) Sodium (135-145) mmol/L Potassium (3.3-5.1) mmol/L Chloride (96-108) mmol/L Carbon Dioxide (22-29) mmol/L Anion Gap (12-20) BUN (9-16) mg/dL Creatinine (0.5-1.4) mg/dL Estim Creat Clear Calc Estimated GFR POC Glucose (60-115) mg/dL Random Glucose (60-115) mg/dL Lactic Acid 1.8 (0.5-2.0) mmol/L Calcium (8.4-10.2) mg/dL Magnesium (1.6-2.6) mg/dL Total Bilirubin (0.0-1.0) mg/dL Direct Bilirubin (0.0-0.5) mg/dL AST (5-37) U/L ALT (0-40) U/L Alkaline Phosphatase (39-117) U/L Total Protein (6.5-8.0) g/dL Albumin (3.5-5.0) g/dL Lipase (8-78) U/L Urine Color Urine Appearance Urine pH (5.0-9.0) Ur Specific [place] (1.005-1.025) Urine Protein (Neg-Trace) mg/dL Urine Glucose (UA) (Negative) mg/dL Urine Ketones (Negative) mg/dL Urine Blood (Negative) Urine Nitrite (Negative) Ur Leukocyte Esterase (Negative) Urine RBC (0-2) /HPF Urine WBC (0-5) /HPF Ur Squamous Epith Cells (0-2) /HPF Urine Bacteria (None Seen) Hyaline Casts (0-2) /LPF COVID-19 (KASH) (Negative) COVID-19 Clin Com Discharge Plan Discharge Prescriptions: No Action ketoconazole 2 % cream 1 appl topical DAILY 90 Days Qty: 60 2RF (DME) insulin syringe-needle U-100 [BD Insulin Syringe Ultra-Fine] 1 mL 30 gauge x 1/2 syringe See Rx Instructions .Route Qty: 200 0RF Rx Instructions: Use to inject insulin twice per day vitamin B complex Capsule 1 cap PO DAILY zinc 50 mg Capsule 50 mg PO DAILY skscikp-cxtm-uovic-oreg-capryl 100 mg-150 mg- 50 mg-150 mg capsule 500 cap PO DAILY cholecalciferol (vitamin D3) 100 mcg (4,000 unit) capsule 100 mcg PO DAILY ascorbate calcium (vitamin C) 500 mg tablet 500 mg PO DAILY Humulin N NPH U-100 Insulin 100 unit/mL suspension 30 unit subcut BID 90 Days Qty: 60 3RF rosuvastatin 5 mg tablet 5 mg PO DAILY 90 Days Qty: 90 0RF
[2022-08-28] MEDS: Acetaminophen 325 MG TABLET 975 MG PO (20:47)
[2022-08-28] MEDS: 0.9 % Sodium Chloride 1,000 ML 999 ML IV ×2 (20:48→20:49)
[2022-08-28] MEDS: cefTRIAXone sodium 1 GM in 0.9 % Sodium Chloride 50 ML IV (20:48)
[2022-08-28 21:01] VITALS: BP 112/61; PULSE 115; RESP 14; TEMP 37.4; O2SAT 97
[2022-08-28 21:53] VITALS: TEMP 37.8
[2022-08-28 23:18] VITALS: BP 103/55; PULSE 100; RESP 14; TEMP 37.5; O2SAT 100
[2022-08-28 23:31] LABS: Glucose, Whole Blood 131 mg/dL (60-115)
[2022-08-28 23:44] VITALS: BP 100/58; PULSE 99; RESP 20; TEMP 37.4; O2SAT 98
== END 2022-08-29 00:35 | disposition home or self-care (01) ==
PROVIDERS: Physician Assistant; Emergency Provider Emergency Medicine; PCP Nurse Practitioner Family
DX: U07.1 COVID-19 (principal); N39.0 Urinary tract infection, site not specified; M54.50 Low back pain, unspecified; R05.9 Cough, unspecified; Z79.899 Other long term (current) drug therapy
CPT/HCPCS: 71045; 74176; 80048; 80076; 81001; 81003; 82947; 83605; 83690; 83735; 85007; 85027; 85610; 87040; 87086; 87635; 96361; 96374; 99284; J0696

== ENCOUNTER 2022-09-17 10:26 | Outpatient (REF) | payer BC, SELFPAY ==
[2022-09-17 14:06] LABS: Appearance Urine Clear; Color Urine Dark Yellow; Glucose Urine UA Negative (Negative); Leukocyte Esterase Urine Moderate (2+) (Negative); Nitrite Urine Negative (Negative); Specific Gravity - Urine 1.015 (1.005-1.025); UMIC TRIGGER UACC YES; Urine Blood Negative (Negative); Urine Ketones Negative (Negative); Urine Protein Negative (Neg-Trace)
[2022-09-17 14:14] LABS: MANUAL DIFF FLAG NO
[2022-09-17 14:17] LABS: Bacteria Urine None Seen (None Seen); Calcium Oxalate Crystals Urine Present; Hyaline Casts Urine 0-2 /LPF (0-2); RBC Urine 0-2 /HPF (0-2); Squamous Epithelial Cell Urine 0-2 /HPF (0-2); UACC Culture Trigger YES
[2022-09-17 14:38] LABS: Basophils Absolute Auto 0.1 X10*3/uL (0.0-0.2); Basophils Percent Auto 0.5 % (0-2); Eosinophils Absolute Auto 0.1 X10*3/uL (0.0-0.4); Eosinophils Percent Auto 1.2 % (0-4); Hematocrit 37.9 % (42.0-52.0); Hemoglobin 13.1 g/dl (14.0-18.0); Imm Gran Abs Auto 0.12 X10*3/uL (0.00-0.03); Imm Gran Pct Auto 1.3 % (0.0-0.4); Mean Corpuscular HGB Conc 34.6 g/dl (31.0-36.0); Mean Corpuscular Hemoglobin 29.6 pg (27.0-33.0); Mean Corpuscular Volume 85.6 fL (80.0-98.0); Mean Platelet Volume 10.2 fL (9.4-12.4); Monocytes Percent Auto 10.2 % (2-11); Neutrophils Absolute Auto 5.2 x10*3/uL (2.0-8.3); Neutrophils Percent Auto 54.8 % (45-73); Platelet Count 743 X10*3/uL (160-400); Red Blood Count 4.43 X10*6/uL (4.60-5.80); Red Cell Distribution Width 12.7 % (11.0-16.0); White Blood Count 9.4 X10*3/uL (4.8-10.8)
[2022-09-17 15:03] LABS: Creatinine Urine 84.76 mg/dL; Microalbum/Creatinine Ratio Ur 10.6 ug/mg cr
[2022-09-17 15:16] LABS: Alanine Aminotransferase 18 U/L (0-40); Albumin Level 3.8 g/dL (3.5-5.0); Alkaline Phosphatase 88 U/L (39-117); Anion Gap 15 (12-20); Aspartate Amino Transferase 21 U/L (5-37); Blood Urea Nitrogen 16 mg/dL (9-16); Carbon Dioxide 25 mmol/L (22-29); Chloride 105 mmol/L (96-108); Cholesterol 141 mg/dL; Estimated Glomerular Filt Rate > 60; Glucose Random 152 mg/dL (60-115); HDL Cholesterol 32 mg/dL; LDL Cholesterol Calculated 90 mg/dl; Potassium 4.8 mmol/L (3.3-5.1); Sodium 140 mmol/L (135-145); TSH reflex Free T4 0.76 uIU/mL (0.32-4.0); Total Protein 7.3 g/dL (6.5-8.0); Triglycerides 96 mg/dL
[2022-09-17 15:31] LABS: Bilirubin Total 1.1 mg/dL (0.0-1.0)
[2022-09-17 17:21] LABS: Prostate Specific Antigen Scr 1.39 ng/mL (<0.05-4.0)
== END 2022-09-17 10:27 | disposition home or self-care (01) ==
LOC: HO.HMGCLDS 10:26
PROVIDERS: PCP Nurse Practitioner Family; Visit Provider Nurse Practitioner Family
DX: Z12.5 Encounter for screening for malignant neoplasm of prostate (principal); E11.9 Type 2 diabetes mellitus without complications; R53.1 Weakness; U09.9 Post COVID-19 condition, unspecified
CPT/HCPCS: 36415; 80053; 80061; 81001; 81003; 82043; 84153; 84443; 85025; 87086; 87147

== ENCOUNTER 2022-09-25 11:49 | Outpatient (REF) | payer BC, SELFPAY ==
[2022-09-25 13:58] LABS: MANUAL DIFF FLAG NO
[2022-09-25 14:30] LABS: Basophils Absolute Auto 0.1 X10*3/uL (0.0-0.2); Eosinophils Absolute Auto 0.2 X10*3/uL (0.0-0.4); Eosinophils Percent Auto 1.8 % (0-4); Hematocrit 39.4 % (42.0-52.0); Hemoglobin 13.6 g/dl (14.0-18.0); Imm Gran Abs Auto 0.05 X10*3/uL (0.00-0.03); Imm Gran Pct Auto 0.5 % (0.0-0.4); Lymphocytes Absolute Auto 3.2 X10*3/uL (1.2-4.9); Lymphocytes Percent Auto 34.9 % (20-40); Mean Corpuscular HGB Conc 34.5 g/dl (31.0-36.0); Mean Corpuscular Hemoglobin 30.3 pg (27.0-33.0); Mean Corpuscular Volume 87.8 fL (80.0-98.0); Mean Platelet Volume 10.9 fL (9.4-12.4); Monocytes Percent Auto 11.3 % (2-11); Neutrophils Absolute Auto 4.6 x10*3/uL (2.0-8.3); Neutrophils Percent Auto 50.5 % (45-73); Platelet Count 499 X10*3/uL (160-400); Red Blood Count 4.49 X10*6/uL (4.60-5.80); Red Cell Distribution Width 13.5 % (11.0-16.0); White Blood Count 9.1 X10*3/uL (4.8-10.8)
== END 2022-09-25 11:50 | disposition home or self-care (01) ==
LOC: HO.HMGCLDS 11:49
PROVIDERS: PCP Nurse Practitioner Family; Visit Provider Nurse Practitioner Family
DX: R79.89 Other specified abnormal findings of blood chemistry (principal)
CPT/HCPCS: 36415; 85025

== ENCOUNTER 2022-11-06 11:08 | Outpatient (REF) | payer BC, SELFPAY ==
[2022-11-06 14:05] LABS: MANUAL DIFF FLAG NO
[2022-11-06 14:12] LABS: Basophils Absolute Auto 0.1 X10*3/uL (0.0-0.2); Basophils Percent Auto 1.5 % (0-2); Eosinophils Absolute Auto 0.4 X10*3/uL (0.0-0.4); Eosinophils Percent Auto 5.5 % (0-4); Hematocrit 41.7 % (42.0-52.0); Hemoglobin 14.8 g/dl (14.0-18.0); Imm Gran Abs Auto 0.01 X10*3/uL (0.00-0.03); Imm Gran Pct Auto 0.1 % (0.0-0.4); Lymphocytes Absolute Auto 3.1 X10*3/uL (1.2-4.9); Lymphocytes Percent Auto 43.3 % (20-40); Mean Corpuscular HGB Conc 35.5 g/dl (31.0-36.0); Mean Corpuscular Hemoglobin 30.8 pg (27.0-33.0); Mean Corpuscular Volume 86.9 fL (80.0-98.0); Mean Platelet Volume 11.9 fL (9.4-12.4); Monocytes Absolute Auto 0.8 X10*3/uL (0.1-1.2); Monocytes Percent Auto 11.5 % (2-11); Neutrophils Absolute Auto 2.7 x10*3/uL (2.0-8.3); Neutrophils Percent Auto 38.1 % (45-73); Platelet Count 351 X10*3/uL (160-400); Red Cell Distribution Width 12.9 % (11.0-16.0); White Blood Count 7.1 X10*3/uL (4.8-10.8)
[2022-11-06 14:28] LABS: D Dimer High Sensitivity 187 NG/ML
[2022-11-06 14:38] LABS: Alanine Aminotransferase 16 U/L (0-40); Alkaline Phosphatase 76 U/L (39-117); Anion Gap 15 (12-20); Aspartate Amino Transferase 24 U/L (5-37); Bilirubin Total 1.9 mg/dL (0.0-1.0); Blood Urea Nitrogen 18 mg/dL (9-16); C Reactive Protein 0.15 mg/dL (< or = 0.50); Calcium 10.4 mg/dL (8.4-10.2); Carbon Dioxide 25 mmol/L (22-29); Chloride 102 mmol/L (96-108); Estimated Glomerular Filt Rate > 60; Glucose Random 133 mg/dL (60-115); Potassium 4.4 mmol/L (3.3-5.1); Sodium 138 mmol/L (135-145); Total Protein 7.2 g/dL (6.5-8.0)
[2022-11-06 14:54] LABS: Cortisol Random 8.1 ug/dL
[2022-11-06 14:56] LABS: Ferritin 255 ng/mL (20-250); TSH reflex Free T4 1.78 uIU/mL (0.32-4.0); Vitamin D 25-OH Total 62.9 ng/mL (>30)
[2022-11-09 12:14] LABS: Anti Nuclear Antibody Screen NEGATIVE (NEGATIVE)
== END 2022-11-06 11:09 | disposition home or self-care (01) ==
LOC: HO.HMGCLDS 11:08
PROVIDERS: PCP Nurse Practitioner Family; Visit Provider Nurse Practitioner Family
DX: U09.9 Post COVID-19 condition, unspecified (principal)
CPT/HCPCS: 36415; 80053; 82306; 82533; 82728; 84443; 85025; 85379; 86038; 86039; 86140

== ENCOUNTER 2022-11-27 13:09 | Outpatient (REF) | payer BC, SELFPAY ==
[2022-11-27 14:56] LABS: Blood Urea Nitrogen 17 mg/dL (9-16); Calcium 9.9 mg/dL (8.4-10.2); Estimated Glomerular Filt Rate > 60; Uric Acid 5.2 mg/dL (3.4-7.0)
[2022-11-27 15:13] LABS: Vitamin D 25-OH Total 62.2 ng/mL (>30)
[2022-11-30 14:14] LABS: Calcium (PTHI) 10.2 mg/dL (8.6-10.3); PTHI 16 pg/mL (16-77)
== END 2022-11-27 13:10 | disposition home or self-care (01) ==
LOC: HO.HMGCLDS 13:09
PROVIDERS: PCP Nurse Practitioner Family; Visit Provider Physician Assistant
DX: N20.0 Calculus of kidney (principal)
CPT/HCPCS: 36415; 82306; 82310; 82565; 83970; 84520; 84550

== ENCOUNTER 2023-05-06 12:48 | Outpatient (AMB) | payer BC, SELFPAY ==
--- NOTE | 2023-05-06 13:03 | MHC.PC.OV ---
Vital Signs 05/06/23 13:04 Height 5 ft 11 in Weight 215 lb BMI 30.0 BP 122/80 Blood Pressure Location Lt brachial Position Sitting Pulse 80 Pulse Source Pulse Oximeter Pulse Oximetry (%) 99 Oxygen Delivery Method Room Air Intake Visit Reasons: post-covid/disability Allergies penicillamine Allergy (Unknown, Verified 05/06/23 13:08) unknown Tobacco use date assessed: 05/06/23 Fall risk assessment: No Falls in past year Last assessed Fall Risk: 05/06/23 Dental Screening Dental Screen Date: 05/06/23 Did you have a dental visit in the last 12 months?: Yes Did you have a dental problem in the last 6 months where you did not have access to dental care?: No Was dental information given to patient?: Patient has dentist HPI post-covid/disability HPI Details Pt reports ongoing weakness in his lower extremities since having COVID. He is interested in PT, will refer. He does report some ongoing brain fog. Denies fever, chills, and dizziness. pt is still progressing, however [facility] Medical History (Updated 02/25/23 @ 12:09 by MARK Morelos) Cholecystectomy planned CKD (chronic kidney disease) Diabetes Diabetic retinopathy History of colon cancer Necrosis of right ureter Osteoarthritis 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 Peripheral neuropathy Post-COVID syndrome Pulmonary sarcoidosis PVD (peripheral vascular disease) Renal stones Sarcoidosis Skin cancer Spherocytosis Spinal stenosis Surgical History H/O right hemicolectomy H/O splenectomy History of surgical removal of pilonidal cyst History of tonsillectomy and adenoidectomy History of ureter repair Hx of cholecystectomy Hx of colonoscopy S/P ureteral reimplantation Status post laser lithotripsy of ureteral calculus Family History Mother Thyroid cancer Other Mental health disorder Social History Household Members: Friend(s) Housing: House Are you a primary medical care manager to a significant other at home: No Do you presently have visiting nurse or other home services: No Alcohol intake: never Patient Tobacco Use Status: Never used Tobacco e-Cigarette/Vaping Use: Never Used Second Hand Smoke Exposure: No service: No Current occupational status: employed and retired Cognitive needs: No Hearing needs: No Vision needs: No Questionnaire Thrive Questionnaire Date Thrive assessed: 08/24/22 CANDIS-7 AMB Questionnaire CANDIS-7 Date CANDIS - 7 assessed: 08/24/22 Source: Developed by Drs. Ernesto Moscoso, Jodi Alvarado, Sam Deluna and colleagues, with an educational devon from [employer]. Review of Systems Const Reports as per HPI Physical exam (Primary Care) Vital Signs: Last Vital Signs Pulse 80 05/06/23 13:04 BP 122/80 05/06/23 13:04 Pulse Ox 99 05/06/23 13:04 Oxygen Delivery Method Room Air 05/06/23 13:04 BMI result Body Mass Index 30.0 Tobacco/Smoking Status: Tobacco use Status Tobacco use date assessed 05/06/23 05/06/23 13:13 Patient Tobacco Use Status Never used Tobacco 05/06/23 13:04 e-Cigarette/Vaping Use Never Used 05/06/23 13:04 Thrive Assessment: Date of Thrive Assessment Date Thrive assessed 08/24/22 05/06/23 13:04 Const General: cooperative Orientation/consciousness: patient oriented x3 Limitations: ambulation with walker Resp Effort & Inspection: normal respiratory effort Auscultation: clear to auscultation bilaterally Cardio Rate: regular rate Rhythm: regular rhythm Heart sounds: S1 normal heart sound present and S2 normal heart sound present Neuro General: patient oriented x3 Psych Appearance: grossly normal Mental Status: mental status grossly normal Speech and movement: Normal speech and movement present Affect: normal affect Attitude: cooperative Thought process: Normal thought process present Thought content: Normal thought content present Insight: Good insight present (Psych) Judgement: Good judgement present (Psych) Assessment and Plan Assessment & Plan (1) Weakness: Code(s): R53.1 - Weakness Plan: Referred to PT (2) Post-COVID syndrome: Code(s): U09.9 - Post COVID-19 condition, unspecified (3) Brain fog: Code(s): R41.89 - Other symptoms and signs involving cognitive functions and awareness Plan The patient agreed to the use of a biomedical engineering supervisor for this encounter. Scribed for YOMI Mattson- by Karissa Rosas, biomedical engineering supervisor, on 05/06/2023 at 13:30 EST. Orders: Orders PT Evaluation and Treatment Today R53.1 - Weakness Medications: New blood sugar diagnostic (Contour Test Strips) 4 times a day 100 ea 3RF diabetes Coding Level of Care Code Est Pt Level 3 (79000) Diagnoses Weakness R53.1 Post-COVID syndrome U09.9 Brain fog R41.89
[2023-05-06 13:04] VITALS: BP 122/80; PULSE 80; O2SAT 99
== END 2023-05-06 13:54 | disposition home or self-care (01) ==
PROVIDERS: Visit Provider Nurse Practitioner Family
DX: R53.1 Weakness (principal); U09.9 Post COVID-19 condition, unspecified; R41.89 Other symptoms and signs involving cognitive functions and awareness
CPT/HCPCS: 99213

== ENCOUNTER 2023-06-01 12:07 | Outpatient (REF) | payer BC, SELFPAY ==
[2023-06-01 13:08] LABS: MANUAL DIFF FLAG NO
[2023-06-01 13:37] LABS: Basophils Absolute Auto 0.1 X10*3/uL (0.0-0.2); Basophils Percent Auto 1.1 % (0-2); Eosinophils Absolute Auto 0.3 X10*3/uL (0.0-0.4); Eosinophils Percent Auto 3.7 % (0-4); Hematocrit 40.7 % (42.0-52.0); Hemoglobin 14.6 g/dl (14.0-18.0); Imm Gran Abs Auto 0.02 X10*3/uL (0.00-0.03); Imm Gran Pct Auto 0.2 % (0.0-0.4); Lymphocytes Absolute Auto 2.9 X10*3/uL (1.2-4.9); Lymphocytes Percent Auto 35.8 % (20-40); Mean Corpuscular HGB Conc 35.9 g/dl (31.0-36.0); Mean Corpuscular Hemoglobin 31.3 pg (27.0-33.0); Mean Corpuscular Volume 87.3 fL (80.0-98.0); Mean Platelet Volume 11.3 fL (9.4-12.4); Monocytes Absolute Auto 0.8 X10*3/uL (0.1-1.2); Monocytes Percent Auto 9.5 % (2-11); Neutrophils Percent Auto 49.7 % (45-73); Platelet Count 384 X10*3/uL (160-400); Red Blood Count 4.66 X10*6/uL (4.60-5.80); Red Cell Distribution Width 12.4 % (11.0-16.0); White Blood Count 8.1 X10*3/uL (4.8-10.8)
[2023-06-01 14:18] LABS: Alanine Aminotransferase 16 U/L (0-40); Alkaline Phosphatase 76 U/L (39-117); Anion Gap 14 (12-20); Aspartate Amino Transferase 23 U/L (5-37); Bilirubin Total 1.6 mg/dL (0.0-1.0); Blood Urea Nitrogen 20 mg/dL (9-16); Calcium 10.4 mg/dL (8.4-10.2); Carbon Dioxide 23 mmol/L (22-29); Chloride 105 mmol/L (96-108); Cholesterol 155 mg/dL (<200); Estimated Glomerular Filt Rate > 60; Glucose Fasting 139 mg/dL (60-99); HDL Cholesterol 35 mg/dL (>40); LDL Cholesterol Calculated 99 mg/dL (<100); Potassium 3.7 mmol/L (3.3-5.1); Sodium 138 mmol/L (135-145); Total Protein 7.7 g/dL (6.5-8.0); Triglycerides 107 mg/dL (<150)
[2023-06-01 14:24] LABS: Vitamin D 25-OH Total 55.2 ng/mL (>30)
== END 2023-06-01 12:08 | disposition home or self-care (01) ==
LOC: HO.HMGCLDS 12:07
PROVIDERS: PCP Nurse Practitioner Family; Visit Provider Nurse Practitioner Family
DX: E55.9 Vitamin D deficiency, unspecified (principal); E11.8 Type 2 diabetes mellitus with unspecified complications
CPT/HCPCS: 36415; 80053; 80061; 82306; 84443; 85025

== ENCOUNTER 2023-06-01 12:33 | Outpatient (AMB) | payer BC, SELFPAY ==
--- NOTE | 2023-06-01 13:03 | A.OFFPC_ITS ---
Vital Signs 06/01/23 13:04 Height 5 ft 11 in Weight 210 lb BMI 29.3 BP 100/62 Blood Pressure Location Lt brachial Position Sitting Pulse 66 Pulse Source Pulse Oximeter Pulse Oximetry (%) 99 Oxygen Delivery Method Room Air Intake Visit Reasons: post covid/disability Allergies penicillamine Allergy (Unknown, Verified 06/01/23 13:07) unknown Medication List - Last Reconciled 06/01/23 by MARK Morelos ascorbate calcium (vitamin C) 500 mg PO DAILY aspirin 81 mg PO DAILY berberine-herbal comb no.18 500 caps PO BID blood sugar diagnostic (Contour Test Strips) 5 times a day cholecalciferol (vitamin D3) 6,000 units PO DAILY flaxseed oil 1,000 mg PO DAILY insulin NPH isoph U-100 human (Humulin N NPH U-100 Insulin (isophane susp)) 30 units (0.3 mL) subcut BID 90 days insulin syringe-needle U-100 (BD Insulin Syringe Ultra-Fine) Use to inject insulin twice per day magnesium chloride mg PO [resvertrol ] soybean, fermented (Nattokinase) 50 mg PO DAILY soybean, fermented (Nattokinase) mg PO jnysfxl-agho-bdctf-oreg-capryl 100 mg-150 mg- 50 mg-150 mg 500 caps PO BID vitamin B complex 1 cap PO DAILY zinc 50 mg PO DAILY Tobacco use date assessed: 06/01/23 Fall risk assessment: 2 + Falls in past year Last assessed Fall Risk: 06/01/23 Dental Screening Dental Screen Date: 06/01/23 Did you have a dental visit in the last 12 months?: Yes Did you have a dental problem in the last 6 months where you did not have access to dental care?: No Was dental information given to patient?: Patient has dentist HPI post covid/disability HPI Details Pt is a diabetic, last A1C was 6.0. Microalbumin is up to date. Denies polyuria, polydipsia, does report neuropathy. Pt denies any signs and symptoms of hypoglycemia and does know how to correct it. He will call for his own eye appointment COUNTS INCLUDE 234 BEDS AT THE [facility] Medical History (Updated 06/01/23 @ 12:17 by MARK Morelos) Cholecystectomy planned CKD (chronic kidney disease) Diabetes Diabetic retinopathy History of colon cancer Necrosis of right ureter Osteoarthritis 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 Peripheral neuropathy Post-COVID syndrome Pulmonary sarcoidosis PVD (peripheral vascular disease) Renal stones Sarcoidosis Skin cancer Spherocytosis Spinal stenosis Vitamin D deficiency Surgical History H/O right hemicolectomy H/O splenectomy History of surgical removal of pilonidal cyst History of tonsillectomy and adenoidectomy History of ureter repair Hx of cholecystectomy Hx of colonoscopy S/P ureteral reimplantation Status post laser lithotripsy of ureteral calculus Family History Mother Thyroid cancer Other Mental health disorder Social History Household Members: Friend(s) Housing: House Are you a primary lawn caretaker to a significant other at home: No Do you presently have visiting nurse or other home services: No Alcohol intake: never Patient Tobacco Use Status: Never used Tobacco e-Cigarette/Vaping Use: Never Used Second Hand Smoke Exposure: No service: No Current occupational status: employed and retired Cognitive needs: No Hearing needs: No Vision needs: No Questionnaire Thrive Questionnaire Date Thrive assessed: 08/24/22 CANDIS-7 AMB Questionnaire CANDIS-7 Date CANDIS - 7 assessed: 08/24/22 Source: Developed by Drs. Ernesto Moscoso, Jodi Alvarado, Sam Deluna and colleagues, with an educational devon from [employer]. Review of Systems Const Reports as per HPI Physical exam (Primary Care) Vital Signs: Last Vital Signs Pulse 66 06/01/23 13:04 BP 100/62 06/01/23 13:04 Pulse Ox 99 06/01/23 13:04 Oxygen Delivery Method Room Air 06/01/23 13:04 BMI result Body Mass Index 29.3 Tobacco/Smoking Status: Tobacco use Status Tobacco use date assessed 06/01/23 06/01/23 13:11 Patient Tobacco Use Status Never used Tobacco 06/01/23 13:03 e-Cigarette/Vaping Use Never Used 06/01/23 13:03 Thrive Assessment: Date of Thrive Assessment Date Thrive assessed 11/14/22 08/22/23 13:03 Const General: cooperative Orientation/consciousness: patient oriented x3 Resp Effort & Inspection: normal respiratory effort Cardio Rate: regular rate Rhythm: regular rhythm Heart sounds: S1 normal heart sound present and S2 normal heart sound present Neuro General: patient oriented x3 Extrem Other: bilat feet: no sensation with use of monofilament, sensation starts just inferior to bilat knees Psych Appearance: grossly normal Mental Status: mental status grossly normal Speech and movement: Normal speech and movement present Affect: normal affect Attitude: cooperative Thought process: Normal thought process present Thought content: Normal thought content present Insight: Good insight present (Psych) Judgement: Good judgement present (Psych) Assessment and Plan Assessment & Plan (1) Diabetes: Code(s): E11.9 - Type 2 diabetes mellitus without complications Plan The patient agreed to the use of a medical charge entry specialist for this encounter. Scribed for MARK Mattson by Karissa Rosas medical charge entry specialist, on 06/01/2023 at 13:15 EST. Orders: Orders Vitamin D 25-OH Total Today E55.9 - Vitamin D deficiency, unspecified Microalbumin, Random (w Creat) Today E11.8 - Type 2 diabetes mellitus with unspecified complications Medications: Changed From blood sugar diagnostic (Contour Test Strips) 4 times a day 100 ea 3RF diabetes To blood sugar diagnostic (Contour Test Strips) 5 times a day 100 ea 3RF diabetes Coding Level of Care Code Est Pt Level 3 (30453) Diagnoses Diabetes E11.9
[2023-06-01 13:04] VITALS: BP 100/62; PULSE 66; O2SAT 99; BMI 29.3
== END 2023-06-01 14:15 | disposition home or self-care (01) ==
PROVIDERS: Visit Provider Nurse Practitioner Family
DX: E11.9 Type 2 diabetes mellitus without complications (principal)
CPT/HCPCS: 99213

== ENCOUNTER 2023-06-03 18:31 | Outpatient (REF) | payer SELFPAY ==
[2023-06-03 18:49] LABS: Appearance Urine Clear; Color Urine Yellow; Glucose Urine UA Negative (Negative); Leukocyte Esterase Urine Moderate (2+) (Negative); Nitrite Urine Negative (Negative); UMIC TRIGGER UACC YES; Urine Blood Negative (Negative); Urine Ketones Negative (Negative); Urine Protein Negative (Neg-Trace)
[2023-06-03 18:54] LABS: Bacteria Urine None Seen (None Seen); RBC Urine 0-2 /HPF (0-2); Squamous Epithelial Cell Urine 0-2 /HPF (0-2); UACC Culture Trigger YES; WBC Urine 21-50 /HPF (0-5)
[2023-06-03 18:56] LABS: Creatinine Urine 47.55 mg/dL; Microalbum/Creatinine Ratio Ur 29.4 ug/mg cr (<30)
== END 2023-06-03 18:32 | disposition home or self-care (01) ==
LOC: HO.LNP 18:31
PROVIDERS: Visit Provider Nurse Practitioner Family
DX: E11.8 Type 2 diabetes mellitus with unspecified complications (principal); R82.90 Unspecified abnormal findings in urine
CPT/HCPCS: 81001; 82043; 87086; 87088; 87186

== ENCOUNTER 2023-06-04 14:25 | Outpatient (AMB) | payer BC, SELFPAY ==
[2023-06-04 14:41] VITALS: BP 122/64; PULSE 68; TEMP 36.6; O2SAT 100; BMI 29.8
--- NOTE | 2023-06-04 14:41 | MHC.OFFWIV ---
Intake Vital Signs 06/04/23 14:41 Height 5 ft 11 in Weight 214 lb BMI 29.8 BP 122/64 Blood Pressure Location Rt brachial Position Sitting Pulse 68 Pulse Source Pulse Oximeter Temp 98 F Temp Source Temporal Artery Scan Pulse Oximetry (%) 100 Intake Visit Reasons: EP Lower RT Back Pain Intake Note: pt is here for back pain on rt side Patient Tobacco Use Status: Never used Tobacco Allergies penicillamine Allergy (Unknown, Verified 06/04/23 14:41) unknown HPI HPI Comments History of Present Illness Details This is a 78-year-old male who presents to the office today for sick visit. Patient complaining of intermittent right-sided lower back pain x1 week. Patient states he has had a traumatic right-sided low back pain x1 week, which seems to come and go. He has not really noticed any specific triggers or patterns to this back pain. He states he did have a fall on his right side approximately 4 days ago but this back pain started before then and he did not injure himself in any way from this fall. Patient does report that he had some chills that lasted for about 1 hour today but does not believe that he had a fever. He otherwise denies any red flag symptoms including bowel/bladder incontinence/retention, numbness/weakness/paresthesias of extremities, or saddle anesthesias. He denies any dysuria/hematuria or urinary frequency/urgency. He states he did just have a kidney ultrasound, which he is following up with his urologist for in 1 week. He also recently had a urinalysis performed, which was negative. [facility] Medical History (Updated 06/01/23 @ 12:17 by MARK Morelos) Cholecystectomy planned CKD (chronic kidney disease) Diabetes Diabetic retinopathy History of colon cancer Necrosis of right ureter Osteoarthritis 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 Peripheral neuropathy Post-COVID syndrome Pulmonary sarcoidosis PVD (peripheral vascular disease) Renal stones Sarcoidosis Skin cancer Spherocytosis Spinal stenosis Vitamin D deficiency Surgical History H/O right hemicolectomy H/O splenectomy History of surgical removal of pilonidal cyst History of tonsillectomy and adenoidectomy History of ureter repair Hx of cholecystectomy Hx of colonoscopy S/P ureteral reimplantation Status post laser lithotripsy of ureteral calculus Family History Mother Thyroid cancer Other Mental health disorder Social History Household Members: Friend(s) Housing: House Are you a primary rn care transition to a significant other at home: No Do you presently have visiting nurse or other home services: No Alcohol intake: never Patient Tobacco Use Status: Never used Tobacco e-Cigarette/Vaping Use: Never Used Second Hand Smoke Exposure: No service: No Current occupational status: employed and retired Cognitive needs: No Hearing needs: No Vision needs: No Review of Systems Const All systems reviewed & are unremarkable except as noted in HPI and below Reports no additional complaints Eyes Reports no additional complaints ENT Reports no additional complaints Card Reports no additional complaints Resp Reports no additional complaints GI Reports no additional complaints Reports no additional complaints Musc Reports no additional complaints Skin/Breast Reports system reviewed and no additional complaints, except as documented Neuro Reports no additional complaints Psych Reports no additional complaints Endo Reports no additional complaints Armaan/Lymph Reports no additional complaints Aller/Immun Reports no additional complaints Physical Exam Vital Signs: Last Vital Signs Temp 98 F 06/04/23 14:41 Pulse 68 06/04/23 14:41 BP 122/64 06/04/23 14:41 Pulse Ox 100 06/04/23 14:41 BMI result Body Mass Index 29.8 Const General: cooperative, healthy appearing, no acute distress and well developed Orientation/consciousness: patient oriented x3 HEENT Head: Yes normal to inspection Ears: hearing grossly normal bilaterally General nose exam: Normal external nose present Face and sinus: Yes normal facial exam Mouth: Normal oral and palatal mucosa present Eyes General: appearance normal, both eyes and all related structures Pupils: Equal, round and reactive pupils present EOM: EOMs intact bilaterally Resp Effort & Inspection: normal respiratory effort and no respiratory distress Auscultation: clear to auscultation bilaterally Cardio Rate: regular rate Rhythm: regular rhythm Heart sounds: no gallops, no murmurs and no rubs Peripheral pulses: Peripheral pulses 2+ throughout GI Inspection: No distended Palpation (GI): Soft to palpation and nontender Auscultation: normal bowel sounds General: Yes no CVA tenderness Back/Spine/Pelvis Other: Mild tenderness to palpation of the right paraspinal musculature of the lumbar spine. No midline or spinous process tenderness to palpation. Back: no CVA tenderness Skin General skin exam: no rashes or lesions noted Neuro General: patient oriented x3 Cranial nerves: Yes CN's II-XII intact bilaterally and Yes Equal, round and reactive pupils present Gait exam (Neuro): Normal gait present Motor exam (neuro): 5/5 motor strength present throughout Extrem General: Yes normal to inspection, Yes full ROM and Yes no clubbing, cyanosis or edema Psych Appearance: grossly normal Mental Status: mental status grossly normal Results AMB Urinalysis, Automated UA Leukoctes 0 Donnie/uL Last Edit by Serge Torre [facility] on 06/04/23 15:40 UA Nitrite Negative Last Edit by Serge Torre [facility] on 06/04/23 15:40 UA Urobilinogen 0.2 mg/dL Last Edit by Serge Torre [facility] on 06/04/23 15:40 UA Protein 0 mg/dL Last Edit by Serge Torre [facility] on 06/04/23 15:40 UA pH 6.0 Last Edit by Sereg Torre [facility] on 06/04/23 15:40 UA Blood 0 Terrell/uL Last Edit by Serge Torre [facility] on 06/04/23 15:40 UA Specific [place] 1.015 Last Edit by Serge Torre [facility] on 06/04/23 15:40 UA Ketone Positive Last Edit by Serge Torre [facility] on 06/04/23 15:40 UA Bilirubin 0 mg/dL Last Edit by Serge Torre [facility] on 06/04/23 15:40 UA Glucose 0 mg/dL Last Edit by ZoeyDevorah Torre [facility] on 06/04/23 15:40 Results Reviewed Results Reviewed: Laboratory Last Values Urine pH (Auto) 6.0 06/04/23 15:39 Specific [place] (Auto) 1.015 06/04/23 15:39 Urine Protein (Auto) 0 mg/dL 06/04/23 15:39 Glucose (UA)(Auto) 0 mg/dL 06/04/23 15:39 Urine Ketones (Auto) Positive 06/04/23 15:39 Urine Blood (Auto) 0 Terrell/uL 06/04/23 15:39 Urine Nitrite (Auto) Negative 06/04/23 15:39 Urine Bilirubin (Auto) 0 mg/dL 06/04/23 15:39 Urine Urobilinogen (Auto) 0.2 mg/dL 06/04/23 15:39 Leukocyte Esterase (Auto) 0 Donnie/uL 06/04/23 15:39 Assessment & Plan Assessment & Plan (1) Low back pain: Code(s): M54.50 - Low back pain, unspecified Plan: This is a 78-year-old male presenting with a traumatic right-sided low back pain. His physical examination is benign with the exception of mild tenderness to palpation of the right paraspinal musculature. However, patient did report some chills that lasted for about 1 hour but he does not believe that he had a fever. I recommended that the patient go to the emergency room as chills could indicate that he has a systemic infection but patient adamantly declined. He is afebrile and overall nontoxic appearing. He is alert and oriented x4 and in my opinion he has the competence to make medical decisions. I explained that other infection such as osteomyelitis in lumbar epidural abscesses can cause back pain with fever/chills, but patient again declines to go to the emergency room. He had a urinalysis done here, which was negative for leukocyte esterase or nitrates. Other differential diagnoses includes a right lumbosacral paraspinal muscular sprain/strain. I recommended supportive management including rest/activity modification, ice/heat, Advil/Tylenol as long as patient has no medical contraindications, [id number] lidocaine patches. I offered muscle relaxants such as methocarbamol but patient declined at this time. Orders: Orders AMB Urinalysis Automated Today Z13.9 - Encounter for screening, unspecified Coding Level of Care Code Est Pt Level 3 (55579) Diagnoses Low back pain M54.50
== END 2023-06-04 15:47 | disposition home or self-care (01) ==
PROVIDERS: PCP Nurse Practitioner Family; Visit Provider Physician Assistant Medical
DX: M54.50 Low back pain, unspecified (principal)
CPT/HCPCS: 81003; 99213

== ENCOUNTER 2023-07-07 12:54 | Outpatient (AMB) | payer BC, SELFPAY ==
--- NOTE | 2023-07-07 12:55 | A.OFFPC_ITS ---
Vital Signs 07/07/23 12:58 Height 5 ft 11 in Weight 207 lb BMI 28.9 BP 108/68 Blood Pressure Location Lt brachial Position Sitting Pulse 83 Pulse Source Pulse Oximeter Pulse Oximetry (%) 98 Oxygen Delivery Method Room Air Intake Visit Reasons: post covid/disability Allergies penicillamine Allergy (Unknown, Verified 07/07/23 13:58) unknown Medication List - Last Reconciled 07/07/23 by YOMI Morelos- ascorbate calcium (vitamin C) 1.5 grams PO DAILY aspirin 81 mg PO DAILY berberine-herbal comb no.18 500 caps PO BID blood sugar diagnostic (Contour Test Strips) 5 times a day cephalexin 500 mg PO BID 5 days cholecalciferol (vitamin D3) 6,000 units PO DAILY flaxseed oil 1,000 mg PO DAILY insulin NPH isoph U-100 human (Humulin N NPH U-100 Insulin (isophane susp)) 30 units (0.3 mL) subcut BID 90 days insulin syringe-needle U-100 (BD Insulin Syringe Ultra-Fine) Use to inject insulin twice per day magnesium chloride mg PO [resvertrol ] soybean, fermented (Nattokinase) 50 mg PO DAILY soybean, fermented (Nattokinase) mg PO sulfamethoxazole-trimethoprim 800-160 mg (Bactrim DS) 1 tab PO BID 5 days uyfhaqv-zmhx-tepct-oreg-capryl 100 mg-150 mg- 50 mg-150 mg 500 caps PO BID vitamin B complex 1 cap PO DAILY zinc 50 mg PO DAILY Tobacco use date assessed: 06/01/23 HPI post covid/disability HPI Details Post-COVID: Pt reports doing well overall. He states that his memory/brain fog is improving and he has less fatigue and better stamina. He does still have some balance issues (uses walker/baseline). 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 Denies fever, chills, and shortness of breath. 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 Vitamin D deficiency Cholecystectomy planned Osteoarthritis History of colon cancer CKD (chronic kidney disease) Sarcoidosis Partial nontraumatic amputation of right foot PVD (peripheral vascular disease) Diabetic retinopathy Spherocytosis Skin cancer Peripheral neuropathy Spinal stenosis Renal stones Pulmonary sarcoidosis Diabetes Surgical History History of ureter repair H/O splenectomy S/P ureteral reimplantation History of surgical removal of pilonidal cyst History of tonsillectomy and adenoidectomy H/O right hemicolectomy Status post laser lithotripsy of ureteral calculus Hx of cholecystectomy Hx of colonoscopy Family History Mother Thyroid cancer Other Mental health disorder Social History Household Members: Friend(s) Housing: House Are you a primary plant health care technician to a significant other at home: No Do you presently have visiting nurse or other home services: No Alcohol intake: never Patient Tobacco Use Status: Never used Tobacco e-Cigarette/Vaping Use: Never Used Second Hand Smoke Exposure: No service: No Current occupational status: employed and retired Cognitive needs: No Hearing needs: No Vision needs: No Questionnaire Thrive Questionnaire Date Thrive assessed: 08/24/22 CANDIS-7 AMB Questionnaire CANDIS-7 Date CANDIS - 7 assessed: 08/24/22 Source: Developed by Drs. Ernesto Moscoso, Jodi Alvarado, Sam Deluna and colleagues, with an educational devon from [employer]. Review of Systems Const Reports as per HPI Physical exam (Primary Care) Vital Signs: Last Vital Signs Pulse 83 07/07/23 12:58 BP 108/68 07/07/23 12:58 Pulse Ox 98 07/07/23 12:58 Oxygen Delivery Method Room Air 07/07/23 12:58 BMI result Body Mass Index 28.9 Tobacco/Smoking Status: Tobacco use Status Tobacco use date assessed 06/01/23 07/07/23 12:57 Patient Tobacco Use Status Never used Tobacco 07/07/23 12:57 e-Cigarette/Vaping Use Never Used 07/07/23 12:57 Thrive Assessment: Date of Thrive Assessment Date Thrive assessed 08/24/22 07/07/23 12:57 Const General: cooperative Orientation/consciousness: patient oriented x3 Resp Effort & Inspection: normal respiratory effort Auscultation: clear to auscultation bilaterally Cardio Rate: regular rate Rhythm: regular rhythm Heart sounds: S1 normal heart sound present and S2 normal heart sound present Neuro General: patient oriented x3 Psych Appearance: grossly normal Mental Status: mental status grossly normal Speech and movement: Normal speech and movement present Affect: normal affect Attitude: cooperative Thought process: Normal thought process present Thought content: Normal thought content present Insight: Good insight present (Psych) Judgement: Good judgement present (Psych) Results AMB Hemoglobin A1c AMB Hemoglobin A1c 5.7 % Last Edit by PETRONA Clayton on 07/07/23 13 :21 Results Reviewed Results Reviewed: Laboratory Last Values Hgb A1c (Clinic) 5.7 % (4.0-6.0) 07/07/23 13:18 Assessment and Plan Assessment & Plan (1) Post-COVID syndrome: Code(s): U09.9 - Post COVID-19 condition, unspecified Plan The patient agreed to the use of a medical secretary teacher for this encounter. Scribed for MARK Mattson by Karissa Rosas medical secretary teacher, on 07/07/2023 at 13:05 EST. Orders: Orders AMB Hemoglobin A1c Today Z13.9 - Encounter for screening, unspecified Coding Level of Care Code Est Pt Level 3 (98024) Diagnoses Post-COVID syndrome U09.9
[2023-07-07 12:58] VITALS: BP 108/68; PULSE 83; O2SAT 98; BMI 28.9
== END 2023-07-07 14:08 | disposition home or self-care (01) ==
LOC: HO.HMGC 12:54
PROVIDERS: PCP Nurse Practitioner Family; Visit Provider Nurse Practitioner Family
DX: U09.9 Post COVID-19 condition, unspecified (principal); E11.9 Type 2 diabetes mellitus without complications
CPT/HCPCS: 83036; 99213

== ENCOUNTER 2023-07-28 13:01 | Outpatient (AMB) | payer BC, SELFPAY ==
--- NOTE | 2023-07-28 13:02 | MHC.PC.OV ---
Vital Signs 07/28/23 13:06 Height 5 ft 11 in Weight 207 lb BMI 28.9 BP 124/74 Blood Pressure Location Rt brachial Position Sitting Pulse 84 Pulse Source Pulse Oximeter Pulse Oximetry (%) 100 Oxygen Delivery Method Room Air Intake Visit Reasons: Post covid syndrome Allergies penicillamine Allergy (Unknown, Verified 07/28/23 14:24) unknown Medication List - Last Reconciled 07/28/23 by MARK Morelos ascorbate calcium (vitamin C) 1.5 grams PO DAILY aspirin 81 mg PO DAILY berberine-herbal comb no.18 500 caps PO BID blood sugar diagnostic (Contour Test Strips) 5 times a day cholecalciferol (vitamin D3) 6,000 units PO DAILY flaxseed oil 1,000 mg PO DAILY insulin NPH isoph U-100 human (Humulin N NPH U-100 Insulin (isophane susp)) 30 units (0.3 mL) subcut BID 90 days insulin syringe-needle U-100 (BD Insulin Syringe Ultra-Fine) Use to inject insulin twice per day magnesium chloride mg PO [resvertrol ] soybean, fermented (Nattokinase) 50 mg PO DAILY frnkxwt-that-lhfnf-oreg-capryl 100 mg-150 mg- 50 mg-150 mg 500 caps PO BID vitamin B complex 1 cap PO DAILY zinc 50 mg PO DAILY Tobacco use date assessed: 06/01/23 HPI Post covid syndrome HPI Details Post-COVID syndrome: Pt reports some ongoing fatigue and balance issues. He has started wearing different shoes which are helping with his balance issues. Pt reports that his brain fog is improving as well. Denies fever, chills, and dizziness. 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 Vitamin D deficiency Cholecystectomy planned Osteoarthritis History of colon cancer CKD (chronic kidney disease) Sarcoidosis Partial nontraumatic amputation of right foot PVD (peripheral vascular disease) Diabetic retinopathy Spherocytosis Skin cancer Peripheral neuropathy Spinal stenosis Renal stones Pulmonary sarcoidosis Diabetes Surgical History History of ureter repair H/O splenectomy S/P ureteral reimplantation History of surgical removal of pilonidal cyst History of tonsillectomy and adenoidectomy H/O right hemicolectomy Status post laser lithotripsy of ureteral calculus Hx of cholecystectomy Hx of colonoscopy Family History Mother Thyroid cancer Other Mental health disorder Social History Household Members: Friend(s) Housing: House Are you a primary health care social worker to a significant other at home: No Do you presently have visiting nurse or other home services: No Alcohol intake: never Patient Tobacco Use Status: Never used Tobacco e-Cigarette/Vaping Use: Never Used Second Hand Smoke Exposure: No service: No Current occupational status: employed and retired Cognitive needs: No Hearing needs: No Vision needs: No Questionnaire Thrive Questionnaire Date Thrive assessed: 08/24/22 CANDIS-7 AMB Questionnaire CANDIS-7 Date CANDIS - 7 assessed: 08/24/22 Source: Developed by Drs. Ernesto Moscoso, Jodi Alvarado, Sam Deluna and colleagues, with an educational devon from [employer]. Review of Systems Const Reports as per HPI Physical exam (Primary Care) Vital Signs: Last Vital Signs Pulse 84 07/28/23 13:06 BP 124/74 07/28/23 13:06 Pulse Ox 100 07/28/23 13:06 Oxygen Delivery Method Room Air 07/28/23 13:06 BMI result Body Mass Index 28.9 Tobacco/Smoking Status: Tobacco use Status Tobacco use date assessed 06/01/23 07/28/23 13:04 Patient Tobacco Use Status Never used Tobacco 07/28/23 13:04 e-Cigarette/Vaping Use Never Used 07/28/23 13:04 Thrive Assessment: Date of Thrive Assessment Date Thrive assessed 08/24/22 07/28/23 13:04 Const Other: using rolling walker General: cooperative Orientation/consciousness: patient oriented x3 Resp Effort & Inspection: normal respiratory effort Auscultation: clear to auscultation bilaterally Cardio Rate: regular rate Rhythm: regular rhythm Heart sounds: S1 normal heart sound present and S2 normal heart sound present Neuro General: patient oriented x3 Psych Appearance: grossly normal Mental Status: mental status grossly normal Speech and movement: Normal speech and movement present Affect: normal affect Attitude: cooperative Thought process: Normal thought process present Thought content: Normal thought content present Insight: Good insight present (Psych) Judgement: Good judgement present (Psych) Assessment and Plan Assessment & Plan (1) Post-COVID syndrome: Code(s): U09.9 - Post COVID-19 condition, unspecified (2) Brain fog: Code(s): R41.89 - Other symptoms and signs involving cognitive functions and awareness Plan The patient agreed to the use of a medical anthropology director for this encounter. Scribed for YOMI Mattson-ARIK by Karissa Rosas medical anthropology director, on 07/28/2023 at 13:20 EST Orders: Orders Complete Blood Count Auto Diff Today E11.9 - Type 2 diabetes mellitus without complications Vitamin D 25-OH Total Today E55.9 - Vitamin D deficiency, unspecified Comprehensive [place]. Panel Fast Today E11.9 - Type 2 diabetes mellitus without complications TSH reflex Free T4 Today E11.9 - Type 2 diabetes mellitus without complications UA CC w/rflx Micro + Cult Today E11.9 - Type 2 diabetes mellitus without complications Lipid Panel Today E11.9 - Type 2 diabetes mellitus without complications Coding Level of Care Code Est Pt Level 3 (83092) Diagnoses Post-COVID syndrome U09.9 Brain fog R41.89
[2023-07-28 13:06] VITALS: BP 124/74; PULSE 84; O2SAT 100; BMI 28.9
== END 2023-07-28 14:16 | disposition home or self-care (01) ==
PROVIDERS: Visit Provider Nurse Practitioner Family
DX: U09.9 Post COVID-19 condition, unspecified (principal); R41.89 Other symptoms and signs involving cognitive functions and awareness
CPT/HCPCS: 99213

== ENCOUNTER 2023-08-04 12:22 | Outpatient (AMB) | payer BC, SELFPAY ==
[2023-08-04 13:12] VITALS: BP 118/78; PULSE 93; TEMP 36.5; O2SAT 100; BMI 29.0
--- NOTE | 2023-08-04 13:12 | MHC.OFFWIV ---
Intake Vital Signs 08/04/23 13:12 Height 5 ft 11 in Weight 208 lb BMI 29.0 BP 118/78 Blood Pressure Location Rt brachial Position Sitting Pulse 93 Pulse Source Pulse Oximeter Temp 97.7 F Temp Source Temporal Artery Scan Pulse Oximetry (%) 100 Oxygen Delivery Method Room Air Intake Visit Reasons: EST/stress/anxiey Intake Note: pt is here for c/o Patient Tobacco Use Status: Never used Tobacco Allergies penicillamine Allergy (Unknown, Verified 08/04/23 13:26) unknown Do you need a note to return to daycare/school/sports/work: Yes HPI EST/stress/anxiey HPI Details This patient presents today for questions regarding recent 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 He has a history of adenocarcinoma the transverse colon. He had a resection of this and is clinically doing well, and under the care of Dr. Crow for oncology. Recent CEA <1.73. Per recent onc note 07/30, he should have repeat colonoscopy in [address] Crow also ordered CT with IV contrast of the abd/pelvis, and of the chest. Per the patient, this was not discussed during his visit with Dr. Crow, and he is wondering the reasoning behind ordering this imaging. He did not call the oncology office to ask this question or request a call back to discuss. He has no other complaints today aside from this inquiry. 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 Vitamin D deficiency Cholecystectomy planned Osteoarthritis History of colon cancer CKD (chronic kidney disease) Sarcoidosis Partial nontraumatic amputation of right foot PVD (peripheral vascular disease) Diabetic retinopathy Spherocytosis Skin cancer Peripheral neuropathy Spinal stenosis Renal stones Pulmonary sarcoidosis Diabetes Surgical History History of ureter repair H/O splenectomy S/P ureteral reimplantation History of surgical removal of pilonidal cyst History of tonsillectomy and adenoidectomy H/O right hemicolectomy Status post laser lithotripsy of ureteral calculus Hx of cholecystectomy Hx of colonoscopy Family History Mother Thyroid cancer Other Mental health disorder Social History Household Members: Friend(s) Housing: House Are you a primary pediatric acute care unit nurse to a significant other at home: No Do you presently have visiting nurse or other home services: No Alcohol intake: never Patient Tobacco Use Status: Never used Tobacco e-Cigarette/Vaping Use: Never Used Second Hand Smoke Exposure: No service: No Current occupational status: employed and retired Cognitive needs: No Hearing needs: No Vision needs: No Review of Systems Const All systems reviewed & are unremarkable except as noted in HPI and below Physical Exam Vital Signs: Last Vital Signs Temp 97.7 F 08/04/23 13:12 Pulse 93 08/04/23 13:12 BP 118/78 08/04/23 13:12 Pulse Ox 100 08/04/23 13:12 Oxygen Delivery Method Room Air 08/04/23 13:12 BMI result Body Mass Index 29.0 Const General: cooperative, healthy appearing, comfortable and no acute distress Limitations: no limitations Resp Effort & Inspection: normal respiratory effort Psych Appearance: grossly normal Mental Status: mental status grossly normal Speech and movement: Normal speech and movement present Assessment & Plan Assessment & Plan (1) History of colon cancer: Code(s): Z85.038 - Personal history of other malignant neoplasm of large intestine Plan: This patient presented today with questions regarding recently ordered imaging by oncologist following visit 07/30. He did not contact oncology office for clarification, but rather came to ID clinic today to ask this news writer. I discussed at length with patient that it is in his best interest to obtain clarification of these orders (CT abd/pelvis and CT chest) with Dr. Crow. We discussed that the indication for the orders state F/u for carcinoma of the colon . His CEA level was recently 1.73, previously, 1.40. We reviewed this as well. He was satisfied with this explanation and states he will contact Dr. Crow's office for any further clarification desired, or if he decides he does not wish to have this imaging done. Coding Level of Care Code Est Pt Level 3 (92166) Diagnoses History of colon cancer Z85.038
== END 2023-08-04 13:56 | disposition home or self-care (01) ==
PROVIDERS: PCP Nurse Practitioner Family; Visit Provider Nurse Practitioner Family
DX: Z85.038 Personal history of other malignant neoplasm of large intestine (principal)
CPT/HCPCS: 99213

== ENCOUNTER 2023-08-28 09:18 | Outpatient (AMB) | payer BC, SELFPAY ==
--- NOTE | 2023-08-28 10:26 | AM.OFFWIN_ITS ---
Intake Vital Signs 08/28/23 10:32 Weight 203 lb BP 120/70 Blood Pressure Location Rt brachial Position Sitting Pulse 72 Pulse Source Pulse Oximeter Temp 97.6 F Temp Source Oral Pulse Oximetry (%) 97 Oxygen Delivery Method Room Air Intake Visit Reasons: EST/left flank pain (lobby) Intake Note: Pt c/o left flank pain x 1 week with some pressure in bladder Patient Tobacco Use Status: Never used Tobacco Allergies penicillamine Allergy (Unknown, Verified 08/31/23 08:57) unknown HPI EST/left flank pain (lobby) HPI Details Patient is a 78-year-old male who comes the walk-in clinic complaining of pain to his left groin that radiates into his left flank and left mid back. He does have a history of bilateral kidney stones, and history of ureteral s tricture to right side in the past. He had an ultrasound of his kidney just this past week, and he is pending results of that through [facility]rology specialist. He states that he has had infections in the past and was recently treated for urinary tract infection a few months ago that cleared with Keflex. He notices no blood in his urine, and denies pain with urination, urinary frequency, abdominal pain, nausea vomiting or diarrhea, weakness or dizziness, myalgias or malaise, fever or chills, chest pain or shortness of breath, or other significant associated symptoms. 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 Vitamin D deficiency Cholecystectomy planned Osteoarthritis History of colon cancer CKD (chronic kidney disease) Sarcoidosis Partial nontraumatic amputation of right foot PVD (peripheral vascular disease) Diabetic retinopathy Spherocytosis Skin cancer Peripheral neuropathy Spinal stenosis Renal stones Pulmonary sarcoidosis Diabetes Surgical History History of ureter repair H/O splenectomy S/P ureteral reimplantation History of surgical removal of pilonidal cyst History of tonsillectomy and adenoidectomy H/O right hemicolectomy Status post laser lithotripsy of ureteral calculus Hx of cholecystectomy Hx of colonoscopy Family History Mother Thyroid cancer Other Mental health disorder Social History Household Members: Friend(s) Housing: House Are you a primary insurance healthcare representative to a significant other at home: No Do you presently have visiting nurse or other home services: No Alcohol intake: never Patient Tobacco Use Status: Never used Tobacco e-Cigarette/Vaping Use: Never Used Second Hand Smoke Exposure: No service: No Current occupational status: employed and retired Cognitive needs: No Hearing needs: No Vision needs: No Review of Systems Const All systems reviewed & are unremarkable except as noted in HPI and below Physical Exam Vital Signs: Last Vital Signs Temp 97.6 F 08/28/23 10:32 Pulse 72 08/28/23 10:32 BP 120/70 08/28/23 10:32 Pulse Ox 97 08/28/23 10:32 Oxygen Delivery Method Room Air 08/28/23 10:32 Const General: cooperative, healthy appearing, comfortable, no acute distress, alert, awake and Physically active; No anxious, diaphoretic, intoxicated appearing, poor hygiene or tired appearing Nutritional Appearance: average body habitus Orientation/consciousness: oriented to person Limitations: no limitations Resp Effort & Inspection: normal respiratory effort, able to speak in complete sentences, no audible wheezes, no cough, no grunting, not labored, no nasal flaring, no retractions and symmetric chest movement Auscultation: clear to auscultation bilaterally, no crackles, no rales, no rhonchi, no wheezes, lung sounds not diminished and No rub present Cardio Rate: regular rate Rhythm: regular rhythm GI Palpation (GI): Soft to palpation, not firm, nontender, no guarding, not rigid and hepatosplenomegaly present General: Yes bladder normal to palpation (Left suprapubic area as well as left flank) and Yes no CVA tenderness Back/Spine/Pelvis Back: no CVA tenderness Thoracic/Lumbar Spine: No pain with thoraco-lumbar ROM, No paraspinal muscle tenderness, No thoracic spinal tenderness and No lumbar spinal tenderness Skin Other: Good color, warm and dry Neuro General: oriented to person Psych Appearance: grossly normal Mental Status: mental status grossly normal Speech and movement: Normal speech and movement present Affect: normal affect Attitude: cooperative Thought process: Normal thought process present Insight: Good insight present (Psych) Judgement: Good judgement present (Psych) Results AMB Urinalysis, Automated UA Leukoctes Donnie/uL Last Edit by Dustin Moreno CMA on 08/28/23 11:15 UA Nitrite Negative Last Edit by Dustin Moreno CMA on 08/28/23 11:15 UA Urobilinogen 0.2 mg/dL Last Edit by Dustin Moreno CMA on 08/28/23 11:15 UA Protein mg/dL Last Edit by Dustin Moreno CMA on 08/28/23 11:15 UA pH 6.0 Last Edit by Dustin Moreno CMA on 08/28/23 11:15 UA Blood Terrell/uL Last Edit by Dustin Moreno CMA on 08/28/23 11:15 UA Specific [employer] 1.015 Last Edit by Dustin Moreno CMA on 08/28/23 11:15 UA Ketone Last Edit by Dustin Moreno CMA on 08/28/23 11:15 UA Bilirubin mg/dL Last Edit by Dustin Moreno CMA on 08/28/23 11:15 UA Glucose mg/dL Last Edit by Dustin Moreno CMA on 08/28/23 11:15 Results Reviewed Results Reviewed: Laboratory Last Values Urine pH (Auto) 6.0 08/28/23 11:14 Specific [employer] (Auto) 1.015 08/28/23 11:14 Urine Nitrite (Auto) Negative 08/28/23 11:14 Urine Urobilinogen (Auto) 0.2 mg/dL 08/28/23 11:14 Assessment & Plan Assessment & Plan (1) Left flank pain: Code(s): R10.9 - Unspecified abdominal pain Plan: Patient has a history of nephrolithiasis and might be in the process of passing another stone. Overall he does not appear to be in any distress, and his vital signs are stable. I ordered labs for him today, and started antibiotic to cover urinary tract infection, although I am not positive that this is the case. He requested Keflex, as this clear to symptoms in the past, even though I told him that it would not cover an upper tract infection. His urine is pending microscopy and culture testing. I advised that he follow-up on Wednesday with his urologist, as they are closed for the weekend, however he does think that his results are available on this patient portal which she might be able to obtain over the weekend. He knows to go to the emergency department with worrisome symptoms. Orders: Orders UA CC w/rflx Micro + Cult 08/28/23 R30.0 - Dysuria AMB Urinalysis Automated 08/28/23 M54.50 - Low back pain, unspecified Medications: New cephalexin 500 mg PO BID 14 caps 0RF 7 days Coding Level of Care Code Est Pt Level 4 (11738) Diagnoses Left flank pain R10.9
[2023-08-28 10:32] VITALS: BP 120/70; PULSE 72; TEMP 36.4; O2SAT 97
== END 2023-08-28 11:17 | disposition home or self-care (01) ==
PROVIDERS: PCP Nurse Practitioner Family; Visit Provider Physician Assistant Medical
DX: M54.50 Low back pain, unspecified (principal)
CPT/HCPCS: 81003; 99214

== ENCOUNTER 2023-08-28 12:44 | Outpatient (REF) | payer BC, SELFPAY ==
[2023-08-28 13:34] LABS: Appearance Urine Clear; Color Urine Yellow; Glucose Urine UA Negative (Negative); Leukocyte Esterase Urine Negative (Negative); Nitrite Urine Negative (Negative); Urine Blood Negative (Negative); Urine Ketones Negative (Negative); Urine Protein Negative (Neg-Trace)
== END 2023-08-28 12:45 | disposition home or self-care (01) ==
LOC: HO.LAB 12:44
PROVIDERS: Visit Provider Physician Assistant Medical
DX: R30.0 Dysuria (principal)
CPT/HCPCS: 81003

== ENCOUNTER 2023-08-31 08:36 | Outpatient (AMB) | payer BC, SELFPAY ==
[2023-08-31 08:56] VITALS: BP 120/72; PULSE 64; O2SAT 96; BMI 28.3
--- NOTE | 2023-08-31 08:56 | AM.OFFWIN_ITS ---
Intake Vital Signs 08/31/23 08:56 Height 5 ft 11 in Weight 203 lb BMI 28.3 BP 120/72 Blood Pressure Location Lt brachial Position Sitting Pulse 64 Pulse Source Pulse Oximeter Pulse Oximetry (%) 96 Oxygen Delivery Method Room Air Intake Visit Reasons: EP, left leg pain Intake Note: Patient is here today withquestion of diverticulitis pain. Patient Tobacco Use Status: Never used Tobacco Allergies penicillamine Allergy (Unknown, Verified 08/31/23 08:57) unknown Do you need a note to return to daycare/school/sports/work: No HPI HPI Comments History of Present Illness Details The patient is a 78-year-old male in today for a sick visit. Five days prior to this appointment patient was seen at this walk-in for similar complaint of left-sided flank pain. At the time the patient was ordered an ultrasound to rule out left kidney stone. Patient states the ultrasound demonstrated no kidney stone issue. He presents today with intermittent left-sided pain, the changes intensity based on position. Denies radiculopathy. Denies dysuria, blood urine, nausea, vomiting, diarrhea. Denies any blood in his stool. Denies recent fever. He states he occasionally has constipation which he treats with frim-ibe-ziopakr medication with good effect. Patient has no left CVA tenderness. Bowel sounds are normal, no pain palpitat ion. Some pain elicited when patient sits up and down. No tingling or numbness. No dysuria. No change in pain with elimination. Patient likely has muscle strain. Unlikely to be diverticulitis, pancreatitis, or obstruction. Patient will be prescribed lidocaine patches, Topical, to be placed on site of pain before bed. Patient has also been educated on eating a low residual diet, as he states he tends to eat various pumpkin and sunflower seeds. Patient has been educated on signs of worsening symptoms when to return to the walk-in or when to present to the emergency room. Patient is agreeable to this plan. 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 Vitamin D deficiency Cholecystectomy planned Osteoarthritis History of colon cancer CKD (chronic kidney disease) Sarcoidosis Partial nontraumatic amputation of right foot PVD (peripheral vascular disease) Diabetic retinopathy Spherocytosis Skin cancer Peripheral neuropathy Spinal stenosis Renal stones Pulmonary sarcoidosis Diabetes Surgical History History of ureter repair H/O splenectomy S/P ureteral reimplantation History of surgical removal of pilonidal cyst History of tonsillectomy and adenoidectomy H/O right hemicolectomy Status post laser lithotripsy of ureteral calculus Hx of cholecystectomy Hx of colonoscopy Family History Mother Thyroid cancer Other Mental health disorder Social History Household Members: Friend(s) Housing: House Are you a primary administrator health care facility to a significant other at home: No Do you presently have visiting nurse or other home services: No Alcohol intake: never Patient Tobacco Use Status: Never used Tobacco e-Cigarette/Vaping Use: Never Used Second Hand Smoke Exposure: No service: No Current occupational status: employed and retired Cognitive needs: No Hearing needs: No Vision needs: No Review of Systems Const Details: Constitutional : No Weight loss, No Fever, No Chills, No Fatigue. ENT/Mouth : No sore throat, No Rhinorrhea Cardiovascular : No Chest Pain, No SOB Respiratory : No Cough, No Sputum, No Wheezing Gastrointestinal : No Nausea, No Vomiting, No Diarrhea, Occasional Constipation, No abdominal Pain, No Hematochezia, No Melena Genitourinary : No Dysuria, No Urinary Frequency, No Hematuria, Musculoskeletal : No joint pain, Neuro : No Weakness, No Numbness, No Dizziness, No Headache Heme/Lymph: No Bruising, No Bleeding,No Lymphadenopathy All other systems reviewed and are negative Physical Exam Vital Signs: Last Vital Signs Pulse 64 08/31/23 08:56 BP 120/72 08/31/23 08:56 Pulse Ox 96 08/31/23 08:56 Oxygen Delivery Method Room Air 08/31/23 08:56 BMI result Body Mass Index 28.3 Vital signs reviewed and are stable Const Other: Appearance: Alert.? Oriented X3.? No acute distress.? Head: Normocephalic. ENT: Pharynx normal.? Neck: Normal inspection.? Neck supple.? CVS: Normal heart rate and rhythm.? ? Abdomen: Soft and nontender.?Patient states slight left sided abd pain when standing or sitting. Back: no CVA tenderness bilaterally Neuro: Oriented X 3.? General: cooperative and no acute distress Limitations: no limitations Assessment & Plan Assessment & Plan (1) Strain of abdominal muscle: Code(s): S39.011A - Strain of muscle, fascia and tendon of abdomen, initial encounter Qualifiers: Encounter type: subsequent encounter Qualified Code(s): S39.011D - Strain of muscle, fascia and tendon of abdomen, subsequent encounter Plan: Patient will be given lidocaine patches to be placed topical before bed. Patient is also been educated on the importance of a low residual diet. He has been educated on side effects of medication. Has been educated on signs of worsening symptoms when to report the walk-in and when to report to the emergency room. Patient is agreeable to this plan. Coding Level of Care Code Est Pt Level 3 (28596) Diagnoses Strain of abdominal muscle, subsequent encounter S39.011D Encounter type: subsequent encounter Time Spent (min) 15
== END 2023-08-31 09:57 | disposition home or self-care (01) ==
PROVIDERS: PCP Nurse Practitioner Family; Visit Provider Nurse Practitioner Primary Care
DX: S39.011D Strain of muscle, fascia and tendon of abdomen, subsequent encounter (principal)
CPT/HCPCS: 99213

== ENCOUNTER 2023-09-09 07:40 | Outpatient (REF) | payer BC, SELFPAY ==
--- NOTE | ~2023-09-09 | CT_ITS ---
STUDY: IV contrast-enhanced CT of the chest, abdomen and pelvis. INDICATION: Follow-up carcinoma of the colon. Stone study. COMPARISON: 08/28/2022 abdomen and pelvis TECHNIQUE: Continuous helical imaging obtained through the chest, abdomen and pelvis following injection of 85 mL Omnipaque 350 IV contrast without adverse effect. Oral contrast was also administered. Reconstructed images performed in the coronal and sagittal planes. Chest MIP images generated. This CT examination was performed using dose optimization techniques as appropriate, variously including the following: *Automated exposure control *Adjustment of mA and/or kV according to patient size (this includes techniques or standardized protocols for targeted exams where dose is matched to indication/reason for exam; i.e. extremities or head) *Use of iterative reconstruction technique TOTAL EXAM DLP: 1296 mGy-cm FINDINGS: WINDOWS DESKTOP SUPPORT: Clear lungs. Cholecystectomy and left upper quadrant clips. Nonobstructive bowel pattern. Phleboliths. CHEST: Airways and lungs: Trachea and bronchi are patent. Bibasilar atelectasis. No consolidations, groundglass opacities are lung nodules. Pleura: No pleural effusions, pneumothoraces, thickening or masses Mediastinum: Unremarkable thyroid. No pathologic lymphadenopathy. Nonenlarged heart. No pericardial effusion. Degree of coronary calcifications: Moderately severe. Nonaneurysmal aorta with mild atherosclerotic calcifications and patency of the branch vessels. Nonenlarged pulmonary arteries. Chest wall and axilla: Gynecomastia. No pathologic lymphadenopathy. Multiple chest wall collaterals, right greater than left. ABDOMEN AND PELVIS: Hepatobiliary: No lesions or intrahepatic biliary ductal dilatation. Status post cholecystectomy. Spleen has been surgically removed. Adrenal glands within normal limits. Pancreas: Status post distal pancreatectomy with stable appearance of the remaining gland. Kidneys, ureters and bladder: No hydronephrosis or perinephric stranding. Prominent ureters, left greater than right again seen without hydroureter. No suspicious renal lesions. 2 mm right lower pole nonobstructing calculus. Diffusely thick-walled urinary bladder. Gastrointestinal: Decompressed. Nonobstructive bowel pattern status post right hemicolectomy. Moderate fecal retention. Peritoneum/Perineum: No free air or free fluid. Soft tissue stranding posterior and inferior to the coccyx/gluteal region again noted. Left-sided predominance on today's study likely positional. Lymph nodes: Unchanged nonspecific aortocaval, left para-aortic and iliac lymph nodes. No pathologic lymphadenopathy. Vascular: Atherosclerotic calcifications nonaneurysmal aorta. Unremarkable inferior vena cava and iliac veins. Patent portal system. Pelvic organs: Enlarged heterogeneous prostate. Pelvic phleboliths. Abdominal wall: No definite hernia. Periumbilical stranding. BONES: Thoracic flowing osteophytes, lower thoracic compression deformities and kyphosis. No suspicious osseous lesions. CT/CT chest w IV con IMPRESSION: No CT evidence of metastatic disease in the chest, abdomen and pelvis. 2 mm right lower pole nonobstructing renal calculus. Multiple other stable findings.
--- NOTE | ~2023-09-09 | CT_ITS ---
STUDY: IV contrast-enhanced CT of the chest, abdomen and pelvis. INDICATION: Follow-up carcinoma of the colon. Stone study. COMPARISON: 08/28/2022 abdomen and pelvis TECHNIQUE: Continuous helical imaging obtained through the chest, abdomen and pelvis following injection of 85 mL Omnipaque 350 IV contrast without adverse effect. Oral contrast was also administered. Reconstructed images performed in the coronal and sagittal planes. Chest MIP images generated. This CT examination was performed using dose optimization techniques as appropriate, variously including the following: *Automated exposure control *Adjustment of mA and/or kV according to patient size (this includes techniques or standardized protocols for targeted exams where dose is matched to indication/reason for exam; i.e. extremities or head) *Use of iterative reconstruction technique TOTAL EXAM DLP: 1296 mGy-cm FINDINGS: PLASTIC SURGERY TECHNICIAN: Clear lungs. Cholecystectomy and left upper quadrant clips. Nonobstructive bowel pattern. Phleboliths. CHEST: Airways and lungs: Trachea and bronchi are patent. Bibasilar atelectasis. No consolidations, groundglass opacities are lung nodules. Pleura: No pleural effusions, pneumothoraces, thickening or masses Mediastinum: Unremarkable thyroid. No pathologic lymphadenopathy. Nonenlarged heart. No pericardial effusion. Degree of coronary calcifications: Moderately severe. Nonaneurysmal aorta with mild atherosclerotic calcifications and patency of the branch vessels. Nonenlarged pulmonary arteries. Chest wall and axilla: Gynecomastia. No pathologic lymphadenopathy. Multiple chest wall collaterals, right greater than left. ABDOMEN AND PELVIS: Hepatobiliary: No lesions or intrahepatic biliary ductal dilatation. Status post cholecystectomy. Spleen has been surgically removed. Adrenal glands within normal limits. Pancreas: Status post distal pancreatectomy with stable appearance of the remaining gland. Kidneys, ureters and bladder: No hydronephrosis or perinephric stranding. Prominent ureters, left greater than right again seen without hydroureter. No suspicious renal lesions. 2 mm right lower pole nonobstructing calculus. Diffusely thick-walled urinary bladder. Gastrointestinal: Decompressed. Nonobstructive bowel pattern status post right hemicolectomy. Moderate fecal retention. Peritoneum/Perineum: No free air or free fluid. Soft tissue stranding posterior and inferior to the coccyx/gluteal region again noted. Left-sided predominance on today's study likely positional. Lymph nodes: Unchanged nonspecific aortocaval, left para-aortic and iliac lymph nodes. No pathologic lymphadenopathy. Vascular: Atherosclerotic calcifications nonaneurysmal aorta. Unremarkable inferior vena cava and iliac veins. Patent portal system. Pelvic organs: Enlarged heterogeneous prostate. Pelvic phleboliths. Abdominal wall: No definite hernia. Periumbilical stranding. BONES: Thoracic flowing osteophytes, lower thoracic compression deformities and kyphosis. No suspicious osseous lesions. CT/CT abdomen pelvis wo/w IV con IMPRESSION: No CT evidence of metastatic disease in the chest, abdomen and pelvis. 2 mm right lower pole nonobstructing renal calculus. Multiple other stable findings.
[2023-09-09] MEDS: iohexoL 350 MG/ML 100 ML INFUS..BTL 85 ML IV (11:14)
[2023-09-09] MEDS: Barium Sulfate Oral (Berry) 450 ML ORAL.SUSP 900 ML PO (11:15)
== END 2023-09-09 07:41 | disposition home or self-care (01) ==
LOC: HO.CT 07:40
PROVIDERS: Absent Provider Urology; PCP Nurse Practitioner Family; Visit Provider Internal Medicine Medical Oncology
DX: C18.9 Malignant neoplasm of colon, unspecified (principal); N20.0 Calculus of kidney
CPT/HCPCS: 71260; 74178; Q9967

== ENCOUNTER 2023-09-27 12:50 | Outpatient (AMB) | payer BC, SELFPAY ==
--- NOTE | 2023-09-27 13:00 | A.OFFPC_ITS ---
Vital Signs 09/27/23 13:03 Height 5 ft 11 in Weight 207 lb BMI 28.9 BP 118/66 Blood Pressure Location Rt brachial Position Sitting Intake Visit Reasons: post covid syndrome Allergies penicillamine Allergy (Unknown, Verified 09/27/23 13:04) unknown Medication List - Last Reconciled 09/27/23 by MARK Morelos ascorbate calcium (vitamin C) 1.5 grams PO DAILY aspirin 81 mg PO DAILY berberine-herbal comb no.18 500 caps PO BID blood sugar diagnostic (Contour Test Strips) 5 times a day cholecalciferol (vitamin D3) 1,200 units PO DAILY insulin NPH isoph U-100 human (Humulin N NPH U-100 Insulin (isophane susp)) 30 units (0.3 mL) subcut BID 90 days insulin syringe-needle U-100 (BD Insulin Syringe Ultra-Fine) Use to inject insulin twice per day magnesium chloride 64 mg PO DAILY [resvertrol ] aejwbfe-mpsg-irkno-oreg-capryl 100 mg-150 mg- 50 mg-150 mg 500 caps PO BID vitamin B complex 1 cap PO DAILY zinc 50 mg PO DAILY Tobacco use date assessed: 06/01/23 HPI post covid syndrome HPI Details Pt is a diabetic. Last A1C was 5.7, microalbumin is up to date. Denies polyuria, polydipsia, does report neuropathy. Pt denies any signs and symptoms of hypoglycemia and does know how to correct it. Pt reports that his blood sugar is well-controlled. Refuses all vaccines. Pt reports some left inguinal discomfort. Recent CT was negative for hernia. ? muscle strain. 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 Vitamin D deficiency Cholecystectomy planned Osteoarthritis History of colon cancer CKD (chronic kidney disease) Sarcoidosis Partial nontraumatic amputation of right foot PVD (peripheral vascular disease) Diabetic retinopathy Spherocytosis Skin cancer Peripheral neuropathy Spinal stenosis Renal stones Pulmonary sarcoidosis Diabetes Surgical History History of ureter repair H/O splenectomy S/P ureteral reimplantation History of surgical removal of pilonidal cyst History of tonsillectomy and adenoidectomy H/O right hemicolectomy Status post laser lithotripsy of ureteral calculus Hx of cholecystectomy Hx of colonoscopy Family History Mother Thyroid cancer Other Mental health disorder Social History Household Members: Friend(s) Housing: House Are you a primary healthcare social worker to a significant other at home: No Do you presently have visiting nurse or other home services: No Alcohol intake: never Patient Tobacco Use Status: Never used Tobacco e-Cigarette/Vaping Use: Never Used Second Hand Smoke Exposure: No service: No Current occupational status: employed and retired Cognitive needs: No Hearing needs: No Vision needs: No Questionnaire Thrive Questionnaire Date Thrive assessed: 08/24/22 CANDIS-7 AMB Questionnaire CANDIS-7 Date CANDIS - 7 assessed: 08/24/22 Source: Developed by Drs. Ernesto Moscoso, Jodi Alvarado, Sam Deluna and colleagues, with an educational devon from [employer]. Review of Systems Const Reports as per HPI Physical exam (Primary Care) Vital Signs: Last Vital Signs BP 118/66 09/27/23 13:03 BMI result Body Mass Index 28.9 Tobacco/Smoking Status: Tobacco use Status Tobacco use date assessed 06/01/23 09/27/23 13:01 Patient Tobacco Use Status Never used Tobacco 09/27/23 13:01 e-Cigarette/Vaping Use Never Used 09/27/23 13:01 Thrive Assessment: Date of Thrive Assessment Date Thrive assessed 08/24/22 09/27/23 13:01 Const General: cooperative Orientation/consciousness: patient oriented x3 Limitations: ambulation with walker Resp Effort & Inspection: normal respiratory effort Auscultation: clear to auscultation bilaterally Cardio Rate: regular rate Rhythm: regular rhythm Heart sounds: S1 normal heart sound present and S2 normal heart sound present Neuro General: patient oriented x3 Extrem Other: able to flex and extend LLE with no discomfort Psych Appearance: grossly normal Mental Status: mental status grossly normal Speech and movement: Normal speech and movement present Affect: normal affect Attitude: cooperative Thought process: Normal thought process present Thought content: Normal thought content present Insight: Good insight present (Psych) Judgement: Good judgement present (Psych) Assessment and Plan Assessment & Plan (1) Diabetes: Code(s): E11.9 - Type 2 diabetes mellitus without complications Plan: Labs ordered Plan The patient agreed to the use of a biomedical equipment specialist for this encounter. Scribed for MARK Mattson by Karissa Rosas biomedical equipment specialist, on 09/27/2023 at 13:15 EST. Orders: Orders Comprehensive [place]. Panel Fast Today E11.9 - Type 2 diabetes mellitus without complications TSH reflex Free T4 Today E11.9 - Type 2 diabetes mellitus without complications UA CC w/rflx Micro + Cult Today E11.9 - Type 2 diabetes mellitus without complications Lipid Panel Today E11.9 - Type 2 diabetes mellitus without complications Hemoglobin A1c Today E11.9 - Type 2 diabetes mellitus without complications PT Evaluation and Treatment Today E11.9 - Type 2 diabetes mellitus without complications, R29.898 - Other symptoms and signs involving the musculoskeletal system Complete Blood Count Auto Diff Today E11.9 - Type 2 diabetes mellitus without complications Coding Level of Care Code Est Pt Level 3 (83477) Diagnoses Diabetes E11.9
[2023-09-27 13:03] VITALS: BP 118/66; BMI 28.9
== END 2023-09-27 14:24 | disposition home or self-care (01) ==
PROVIDERS: Visit Provider Nurse Practitioner Family
DX: E11.9 Type 2 diabetes mellitus without complications (principal)
CPT/HCPCS: 99213

== ENCOUNTER 2023-10-16 14:24 | Outpatient (REF) | payer BC, SELFPAY ==
[2023-10-16 15:15] LABS: MANUAL DIFF FLAG NO
[2023-10-16 15:20] LABS: Basophils Absolute Auto 0.1 X10*3/uL (0.0-0.2); Eosinophils Absolute Auto 0.1 X10*3/uL (0.0-0.4); Eosinophils Percent Auto 1.8 % (0-4); Imm Gran Abs Auto 0.02 X10*3/uL (0.00-0.03); Imm Gran Pct Auto 0.3 % (0.0-0.4); Lymphocytes Absolute Auto 2.3 X10*3/uL (1.2-4.9); Lymphocytes Percent Auto 29.5 % (20-40); Mean Corpuscular HGB Conc 35.9 g/dl (31.0-36.0); Mean Corpuscular Hemoglobin 30.9 pg (27.0-33.0); Mean Corpuscular Volume 86.1 fL (80.0-98.0); Mean Platelet Volume 10.3 fL (9.4-12.4); Monocytes Absolute Auto 0.7 X10*3/uL (0.1-1.2); Monocytes Percent Auto 9.2 % (2-11); Neutrophils Absolute Auto 4.5 x10*3/uL (2.0-8.3); Neutrophils Percent Auto 58.2 % (45-73); Platelet Count 416 X10*3/uL (160-400); Red Blood Count 4.53 X10*6/uL (4.60-5.80); Red Cell Distribution Width 12.5 % (11.0-16.0); White Blood Count 7.8 X10*3/uL (4.8-10.8)
[2023-10-16 16:21] LABS: Alanine Aminotransferase 13 U/L (0-40); Alkaline Phosphatase 86 U/L (39-117); Anion Gap 11 (12-20); Aspartate Amino Transferase 27 U/L (5-37); Bilirubin Total 1.2 mg/dL (0.0-1.0); Blood Urea Nitrogen 21 mg/dL (9-16); Calcium 9.9 mg/dL (8.4-10.2); Carbon Dioxide 26 mmol/L (22-29); Chloride 102 mmol/L (96-108); Cholesterol 174 mg/dL (<200); Estimated Glomerular Filt Rate > 60; Glucose Fasting 215 mg/dL (60-99); HDL Cholesterol 43 mg/dL (>40); LDL Cholesterol Calculated 102 mg/dL (<100); Potassium 4.5 mmol/L (3.3-5.1); Sodium 134 mmol/L (135-145); Total Protein 7.4 g/dL (6.5-8.0); Triglycerides 149 mg/dL (<150)
[2023-10-16 16:38] LABS: TSH reflex Free T4 1.19 uIU/mL (0.32-4.0); Vitamin D 25-OH Total 57.6 ng/mL (>30)
== END 2023-10-16 14:25 | disposition home or self-care (01) ==
LOC: HO.HMGCLDS 14:24
PROVIDERS: PCP Nurse Practitioner Family; Visit Provider Nurse Practitioner Family
DX: E11.65 Type 2 diabetes mellitus with hyperglycemia (principal); E55.9 Vitamin D deficiency, unspecified
CPT/HCPCS: 36415; 80053; 80061; 82306; 83036; 84443; 85025

== ENCOUNTER 2023-10-28 12:56 | Outpatient (AMB) | payer BC, SELFPAY ==
[2023-10-28 13:06] VITALS: BP 118/70; PULSE 74; O2SAT 98
--- NOTE | 2023-10-28 13:06 | MHC.PC.OV ---
Vital Signs 10/28/23 13:06 Height 5 ft 11 in Weight 215 lb BMI 30.0 BP 118/70 Blood Pressure Location Rt brachial Position Sitting Pulse 74 Pulse Source Pulse Oximeter Pulse Oximetry (%) 98 Oxygen Delivery Method Room Air Intake Visit Reasons: 1 Mo post covid Intake Note: pt is here for follow up post covid Impression Printer Required: No Allergies penicillamine Allergy (Unknown, Verified 10/28/23 14:10) unknown Medication List - Last Reconciled 10/28/23 by MARK Morelos ascorbate calcium (vitamin C) 1.5 grams PO DAILY aspirin 81 mg PO DAILY berberine-herbal comb no.18 500 caps PO BID blood sugar diagnostic (Contour Test Strips) 5 times a day cholecalciferol (vitamin D3) 1,200 units PO DAILY insulin NPH isoph U-100 human (Humulin N NPH U-100 Insulin (isophane susp)) 30 units (0.3 mL) subcut BID 90 days insulin syringe-needle U-100 (BD Insulin Syringe Ultra-Fine) Use to inject insulin twice per day latanoprost 0.005% drps ophthalmic (eye) magnesium chloride 64 mg PO DAILY resveratrol mg PO [resvertrol ] dvovdzz-aglk-cgskw-oreg-capryl 100 mg-150 mg- 50 mg-150 mg 500 caps PO BID vitamin B complex 1 cap PO DAILY zinc 50 mg PO DAILY Tobacco use date assessed: 10/28/23 Fall risk assessment: No Falls in past year Last assessed Fall Risk: 10/28/23 Dental Screening Dental Screen Date: 10/28/23 Did you have a dental visit in the last 12 months?: Yes Did you have a dental problem in the last 6 months where you did not have access to dental care?: No Was dental information given to patient?: Patient has dentist HPI 1 Mo post covid HPI Details Pt reports ongoing pelvic pain. He reports that the pain is intermittent and improves on its own. He reports that when he follows a proper diet and is active his pain is better. Pt has a hx of IBS-C. He has spoken with his GI provider who recommended citrucel. He is going to pick this up and drink more water. Denies fever, chills, and N/V/D. 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 Vitamin D deficiency Cholecystectomy planned Osteoarthritis History of colon cancer CKD (chronic kidney disease) Sarcoidosis Partial nontraumatic amputation of right foot PVD (peripheral vascular disease) Diabetic retinopathy Spherocytosis Skin cancer Peripheral neuropathy Spinal stenosis Renal stones Pulmonary sarcoidosis Diabetes Surgical History History of ureter repair H/O splenectomy S/P ureteral reimplantation History of surgical removal of pilonidal cyst History of tonsillectomy and adenoidectomy H/O right hemicolectomy Status post laser lithotripsy of ureteral calculus Hx of cholecystectomy Hx of colonoscopy Family History Mother Thyroid cancer Other Mental health disorder Social History Household Members: Friend(s) Housing: House Are you a primary wild animal caretaker to a significant other at home: No Do you presently have visiting nurse or other home services: No Alcohol intake: never Patient Tobacco Use Status: Never used Tobacco e-Cigarette/Vaping Use: Never Used Second Hand Smoke Exposure: No service: No Current occupational status: employed and retired Cognitive needs: No Hearing needs: No Vision needs: No Questionnaire Thrive Questionnaire Date Thrive assessed: 08/24/22 CANDIS-7 AMB Questionnaire CANDIS-7 Date CANDIS - 7 assessed: 08/24/22 Source: Developed by Drs. Ernesto Moscoso, Jodi Alvarado, Sam Deluna and colleagues, with an educational devon from [employer]. Review of Systems Const Reports as per HPI Physical exam (Primary Care) Vital Signs: Last Vital Signs Pulse 74 10/28/23 13:06 BP 118/70 10/28/23 13:06 Pulse Ox 98 10/28/23 13:06 Oxygen Delivery Method Room Air 10/28/23 13:06 BMI result Body Mass Index 30.0 Tobacco/Smoking Status: Tobacco use Status Tobacco use date assessed 10/28/23 10/28/23 13:11 Patient Tobacco Use Status Never used Tobacco 10/28/23 13:08 e-Cigarette/Vaping Use Never Used 10/28/23 13:08 Thrive Assessment: Date of Thrive Assessment Date Thrive assessed 08/24/22 10/28/23 13:08 Const General: cooperative Nutritional Appearance: obese Orientation/consciousness: patient oriented x3 Resp Effort & Inspection: normal respiratory effort Auscultation: clear to auscultation bilaterally Cardio Rate: regular rate Rhythm: regular rhythm Heart sounds: S1 normal heart sound present and S2 normal heart sound present GI Palpation (GI): Soft to palpation and nontender Auscultation: normal bowel sounds Neuro General: patient oriented x3 Psych Appearance: grossly normal Mental Status: mental status grossly normal Speech and movement: Normal speech and movement present Affect: normal affect Attitude: cooperative Thought process: Normal thought process present Thought content: Normal thought content present Insight: Good insight present (Psych) Judgement: Good judgement present (Psych) Assessment and Plan Assessment & Plan (1) Constipation: Code(s): K59.00 - Constipation, unspecified Plan: increase water consumption, start citrucel, more movement Plan The patient agreed to the use of a certified medical transcriptionist for this encounter. Scribed for YOMI Mattson-ARIK by Karissa Rosas certified medical transcriptionist, on 10/28/2023 at 13:20 EST. Coding Level of Care Code Est Pt Level 3 (77122) Diagnoses Constipation K59.00
== END 2023-10-28 13:59 | disposition home or self-care (01) ==
PROVIDERS: PCP Nurse Practitioner Family; Visit Provider Nurse Practitioner Family
DX: K59.00 Constipation, unspecified (principal)
CPT/HCPCS: 99213

== ENCOUNTER 2023-11-05 13:31 | Outpatient (REF) | payer SELFPAY ==
[2023-11-05 16:03] LABS: Appearance Urine Clear; Color Urine Yellow; Glucose Urine UA Negative (Negative); Leukocyte Esterase Urine Negative (Negative); Nitrite Urine Negative (Negative); PH 6.5 (5.0-9.0); Urine Blood Negative (Negative); Urine Ketones Negative (Negative); Urine Protein Negative (Neg-Trace)
== END 2023-11-05 13:32 | disposition home or self-care (01) ==
LOC: HO.HMGCLDS 13:31
PROVIDERS: PCP Nurse Practitioner Family; Visit Provider Nurse Practitioner Family
DX: E11.9 Type 2 diabetes mellitus without complications (principal)
CPT/HCPCS: 81003

== ENCOUNTER 2023-11-08 13:11 | Outpatient (REF) | payer SELFPAY ==
--- NOTE | 2023-11-09 08:31 | MHC.AU.CER ---
Cerumen Removal- Binaural Date of Visit: 11/08/23 Medical Conditions: Diabetes Medications: Diabetes Medication Procedure: Right Ear: Unusual Findings: Prior to Removal: Moderate Cerumen Present Outcome of Procedure: Cerumen was easily removed Most cerumen was removed. Other: Small amount of cerumen left deep in canal. Left Ear: Unusual Findings: Prior to Removal: Moderate Cerumen Present Outcome of Procedure: Most cerumen was removed. Other: Small amount of cerumen left deep in canal. Jordin wears a hearing aid in the left ear only, reportedly about a year old. He is a longtime hearing aid user. His current aid was purchased through [employer] but he suspects he will return to [facility] for future services, aware of out of pocket cost to service. Recommendations: Recommendations: Use of cerumen drops, such as Debrox or EarWaxMD for maintenance Diagnosis Code(s): Primary Diagnosis: H91.93 Unspecified Hearing Loss, Bilateral Services Performed: Cerumen Removal (CPT 36367) Two Ears Signature: Provider: Evette Posada, [facility]3]-A
== END 2023-11-08 13:12 | disposition home or self-care (01) ==
LOC: HO.HAP 13:11
PROVIDERS: Visit Provider Nurse Practitioner Family
DX: Z46.1 Encounter for fitting and adjustment of hearing aid (principal); H91.93 Unspecified hearing loss, bilateral
CPT/HCPCS: 92700

== ENCOUNTER 2023-11-20 07:48 | Emergency (ER) | payer BC, SELFPAY ==
[2023-11-20 07:58] VITALS: BP 149/77; PULSE 105; RESP 18; TEMP 37.1; O2SAT 100; BMI 26.6
--- NOTE | 2023-11-20 08:04 | ED_ITS ---
HPI - Wound/Laceration General Chief Complaint: Wound/Laceration Stated Complaint: R leg wound-diabetic Time Seen by Provider: 11/20/23 07:54 Source: patient and old records reviewed Mode of arrival: ambulatory Limitations: no limitations History of Present Illness HPI narrative: 78 yo male with PMH of CKD, post covid syndrome, diabetes with diabetic neuropathy s/p amputation of R toes due to infection in the past, UTI, colon carcinoma, renal stones here with c/o 3 days ago scraping R leg and deshpande on metal stairs. He notes he has been cleaning it on hydrogen peroxide but he thinks it is getting more red, no fevers n/v/d. Onset (ago): day(s) (3) Extremity Location: right: lower leg Place: home Patient tetanus UTD: Yes Context: accidental Associated symptoms: other (redness) Treatments prior to arrival: bandage Related Data Home Medications Medication Instructions Recorded Confirmed zinc 50 mg capsule 50 mg PO DAILY 08/13/20 10/28/23 vitamin B complex 1 cap PO DAILY 10/14/20 10/28/23 turmeric 100 mg-steve 150 500 cap PO BID 09/03/21 10/28/23 mg-olive 50 mg-oreg 150 mg-capryl capsule aspirin 81 mg tablet 81 mg PO DAILY 12/29/22 10/28/23 berberine-herbal comb no.18 capsule 500 cap PO BID 12/31/22 10/28/23 magnesium chloride 64 mg 64 mg PO DAILY 04/01/23 10/28/23 (magnesium chloride) tablet resvertrol 06/01/23 10/28/23 ascorbate calcium (vitamin C) 500 1.5 g PO DAILY 07/07/23 10/28/23 mg tablet cholecalciferol (vitamin D3) 100 1,200 unit PO DAILY 09/27/23 10/28/23 mcg (4,000 unit) capsule latanoprost 0.005 % eye drops drp ophthalmic (eye) 10/28/23 10/28/23 resveratrol 100 mg capsule mg PO 10/28/23 10/28/23 Previous Rx's Medication Instructions Recorded insulin NPH isoph U-100 human 100 30 unit (0.3 mL) subcut BID 90 08/24/22 unit/mL subcutaneous suspension days #60 mL (Humulin N NPH U-100 Insulin (isophane susp)) insulin syringe-needle U-100 1 mL #200 ea 12/02/22 30 gauge x 1/2 (BD Insulin Syringe Ultra-Fine) blood sugar diagnostic (Contour #100 ea 06/01/23 Test Strips) cephalexin 500 mg capsule 500 mg PO QID 7 days #28 caps 11/20/23 mupirocin 2 % topical ointment 1 appl topical BID 7 days #15 grams 11/20/23 Allergies Allergy/AdvReac Type Severity Reaction Status Date / Time penicillamine Allergy Unknown unknown Verified 11/20/23 08:02 Review of Systems Review of Systems: Constitutional : No Fever, No Chills ENT/Mouth : No sore throat, No Rhinorrhea Eyes: No Eye Pain, No Swelling, No Redness Cardiovascular : No Chest Pain, No SOB Respiratory : No Cough, No Sputum Gastrointestinal : No Nausea, No Vomiting, No Diarrhea, No abdominal Pain Genitourinary : No Dysuria, No Hematuria Musculoskeletal : No joint pain, No Myalgias, No Joint Swelling Skin : No Skin Lesions, positive skin rash Neuro : No Weakness, No Numbness, No Headache Psych : No Anxiety, No Depression All other systems reviewed and are negative [facility] Past Medical History Attestation statement: The following information was validated with the patient. 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 Vitamin D deficiency Cholecystectomy planned Osteoarthritis History of colon cancer CKD (chronic kidney disease) Sarcoidosis Partial nontraumatic amputation of right foot PVD (peripheral vascular disease) Diabetic retinopathy Spherocytosis Skin cancer Peripheral neuropathy Spinal stenosis Renal stones Pulmonary sarcoidosis Diabetes Surgical History History of ureter repair H/O splenectomy S/P ureteral reimplantation History of surgical removal of pilonidal cyst History of tonsillectomy and adenoidectomy H/O right hemicolectomy Status post laser lithotripsy of ureteral calculus Hx of cholecystectomy Hx of colonoscopy Family History Family History Mother Thyroid cancer Other Mental health disorder Social History Social History Household Members: Friend(s) Housing: House Are you a primary career portals teacher to a significant other at home: No Do you presently have visiting nurse or other home services: No Alcohol intake: never Patient Tobacco Use Status: Never used Tobacco e-Cigarette/Vaping Use: Never Used Second Hand Smoke Exposure: No Advance Directives: No Advance Directives Information Provided: Yes service: No Current occupational status: employed and retired Cognitive needs: No Hearing needs: No Vision needs: No Physical Exam Vital Signs: Vital Signs: Last Vital Signs Temp 98.8 F 11/20/23 07:58 Pulse 105 H 11/20/23 07:58 Resp 18 11/20/23 07:58 BP 149/77 H 11/20/23 07:58 Pulse Ox 100 11/20/23 07:58 O2 Del Method Room Air 11/20/23 07:58 BMI result Body Mass Index 26.6 Appearance: Alert. Oriented X3. No acute distress. Eyes: Pupils equal, round and reactive to light. ENT: Pharynx normal. Neck: Normal inspection. Neck supple. CVS: Normal heart rate and rhythm. Pulses normal. Respiratory: No respiratory distress. Breath sounds normal. Abdomen: Soft and nontender. Skin: Skin warm and dry. Normal skin color. Normal skin turgor. Extremities: R anterior deshpande abrasions x 2 superficial there is no fluctuance or drainage there is some surrounding erythema but no streaking and no extension. no odor, no ttp Neuro: Oriented X 3. No motor deficit. No sensory deficit. Medications Administered Discontinued Medications Generic Name Dose Route Start Last Admin Trade Name Freq PRN Reason Stop Dose Admin Bacitracin 1 appl 11/20/23 08:02 11/20/23 08:10 Bacitracin Oint 0.9 Gm Packet TOPICAL 11/20/23 08:03 1 appl ONCE ONE Administration Protocol Cephalexin HCl 500 mg 11/20/23 08:02 11/20/23 08:10 Cephalexin 500 Mg Capsule PO 11/20/23 08:03 500 mg ONCE ONE Administration Medical Decision Making Medical Decision Making MDM Narrative: 78 yo male with PMH of CKD, post covid syndrome, diabetes with diabetic neuropathy s/p amputation of R toes due to infection in the past, UTI, colon carcinoma, renal stones here with c/o abrasion on R anterior deshpande with some minimal surrounding erythema - there is no abscess, fluctuance or extension of cellulitis will start on mupirocin and cephalexin with precautions to return. I cleaned the wound placed a sterile dressing and applied bacitracin Differential Diagnosis Differential Diagnoses: The differential diagnosis associated with the presentation includes abrasion, cellulitis Lab Data MDM Lab Attestation statement: I reviewed the patient's lab results. External Record Review External record reviewed: Inpatient record Prescription Management I considered prescription management with: Antibiotic Discharge Plan Discharge Clinical Impression: Abrasion Patient Disposition: Home, Self-Care Instructions: Abrasion (ED) Additional Instructions: keep area covered and change dressing daily, monitor for fevers, increased yellow drainage, streaking red or any other concerns. finish all antibiotics On a cephalosporin?antibiotic, softer bowel movements are to be expected. Call your provider if you move your bowels more than 4 times a day, your bowel movements are almost all liquid, or you get a rash.?? Prescriptions: New cephalexin 500 mg capsule 500 mg PO QID 7 Days Qty: 28 0RF mupirocin 2 % ointment 1 appl topical BID 7 Days Qty: 15 0RF No Action (DME) insulin syringe-needle U-100 [BD Insulin Syringe Ultra-Fine] 1 mL 30 gauge x 1/2 syringe See Rx Instructions .Route Qty: 200 3RF Rx Instructions: Use to inject insulin twice per day vitamin B complex Capsule 1 cap PO DAILY aspirin 81 mg Tablet 81 mg PO DAILY zinc 50 mg Capsule 50 mg PO DAILY trmgfwkj-rcqz-wfnwy-oreg-capry 100 mg-150 mg- 50 mg-150 mg capsule 500 cap PO BID cholecalciferol (vitamin D3) 100 mcg (4,000 unit) capsule 1,200 unit PO DAILY berberine-herbal comb no.18 Capsule 500 cap PO BID ascorbate calcium (vitamin C) 500 mg tablet 1.5 g PO DAILY Humulin N NPH U-100 Insulin 100 unit/mL suspension 30 unit subcut BID 90 Days Qty: 60 3RF magnesium chloride 64 mg magnesium tablet 64 mg PO DAILY (DME) resvertrol 0 .Route .MEDSUPPLY (DME) Contour Test Strips Strip See Rx Instructions .Route Qty: 100 3RF Rx Instructions: 5 times a day latanoprost 0.005 % drops ophthalmic (eye) resveratrol 100 mg capsule PO Interventions: ED Discharge Assessment Last Done: 11/20/23 08:32 Discharge Date/Time: 11/20/23 08:34
[2023-11-20] MEDS: cephALEXin 500 MG CAPSULE PO (08:10)
[2023-11-20] MEDS: Bacitracin Oint 0.9 GM PACKET 1 APPL TOPICAL (08:10)
== END 2023-11-20 08:34 | disposition home or self-care (01) ==
LOC: HO.ED 08:09
PROVIDERS: Emergency Provider Emergency Medicine; PCP Nurse Practitioner Family
DX: S70.311A Abrasion, right thigh, initial encounter (principal); W22.8XXA Striking against or struck by other objects, initial encounter; E11.9 Type 2 diabetes mellitus without complications; Y93.9 Activity, unspecified; Y92.9 Unspecified place or not applicable; Y99.9 Unspecified external cause status; Z89.431 Acquired absence of right foot; Z79.82 Long term (current) use of aspirin; Z79.4 Long term (current) use of insulin
CPT/HCPCS: 99283; 99284

== ENCOUNTER 2023-11-30 12:57 | Outpatient (AMB) | payer BC, SELFPAY ==
--- NOTE | 2023-11-30 12:58 | A.OFFPC_ITS ---
Vital Signs 11/30/23 13:11 Height 5 ft 8 in Weight 208 lb BMI 31.6 BP 120/70 Blood Pressure Location Lt brachial Position Sitting Pulse 85 Pulse Source Pulse Oximeter Pulse Oximetry (%) 100 Oxygen Delivery Method Room Air Intake Visit Reasons: Post COVID Intake Note: pt is here for follow up, recently hurt right leg on stairs, completed a round of antibiotics. Inside Sales Advisor Required: No Accompanied by: Self / Same As Patient Allergies penicillamine Allergy (Unknown, Verified 11/30/23 12:59) unknown Tobacco use date assessed: 10/28/23 Fall risk assessment: No Falls in past year Last assessed Fall Risk: 11/30/23 Dental Screening Dental Screen Date: 11/30/23 Did you have a dental visit in the last 12 months?: Yes Did you have a dental problem in the last 6 months where you did not have access to dental care?: No Was dental information given to patient?: Patient has dentist HPI Post COVID HPI Details Pt was seen in the ER on 11/20 with erythema to his right deshpande after scraping it on metal stairs. Pt's symptoms were consistent with possible start of cellulitis. He was given cephalexin and mupirocin. Sterile dressing was applied. Will give TDAP vaccine today. Pt denies any fevers, chills, s/s of cellulitis. He reports the drainage is minimal, and is not foul smelling or yellow. 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 Vitamin D deficiency Cholecystectomy planned Osteoarthritis History of colon cancer CKD (chronic kidney disease) Sarcoidosis Partial nontraumatic amputation of right foot PVD (peripheral vascular disease) Diabetic retinopathy Spherocytosis Skin cancer Peripheral neuropathy Spinal stenosis Renal stones Pulmonary sarcoidosis Diabetes Surgical History History of ureter repair H/O splenectomy S/P ureteral reimplantation History of surgical removal of pilonidal cyst History of tonsillectomy and adenoidectomy H/O right hemicolectomy Status post laser lithotripsy of ureteral calculus Hx of cholecystectomy Hx of colonoscopy Family History Mother Thyroid cancer Other Mental health disorder Social History Household Members: Friend(s) Housing: House Are you a primary associate director career services to a significant other at home: No Do you presently have visiting nurse or other home services: No Alcohol intake: never Patient Tobacco Use Status: Never used Tobacco e-Cigarette/Vaping Use: Never Used Second Hand Smoke Exposure: No service: No Current occupational status: employed and retired Cognitive needs: No Hearing needs: No Vision needs: No Questionnaire Thrive Questionnaire Date Thrive assessed: 08/24/22 CANDIS-7 AMB Questionnaire CANDIS-7 Date CANDIS - 7 assessed: 08/24/22 Source: Developed by Drs. Ernesto Moscoso, Jodi Alvarado, Sam Deluna and colleagues, with an educational devon from [employer]. Review of Systems Const Reports as per HPI Physical exam (Primary Care) Vital Signs: Last Vital Signs Pulse 85 11/30/23 13:11 BP 120/70 11/30/23 13:11 Pulse Ox 100 11/30/23 13:11 Oxygen Delivery Method Room Air 11/30/23 13:11 BMI result Body Mass Index 31.6 Tobacco/Smoking Status: Tobacco use Status Tobacco use date assessed 10/28/23 11/30/23 13:00 Patient Tobacco Use Status Never used Tobacco 11/30/23 13:00 e-Cigarette/Vaping Use Never Used 11/30/23 13:00 Thrive Assessment: Date of Thrive Assessment Date Thrive assessed 08/24/22 11/30/23 13:00 Const General: cooperative Nutritional Appearance: obese Orientation/consciousness: patient oriented x3 Resp Auscultation: clear to auscultation bilaterally Cardio Rate: regular rate Rhythm: regular rhythm Heart sounds: S1 normal heart sound present, S2 normal heart sound present and no murmurs Neuro General: patient oriented x3 Extrem Other: right anterior deshpande with abrasion. old dressing with scant amt of blood drainage. no signs of infection or cellulitis, area was patted with normal saline fluff and patted dry with fluff, bacitracin applied with nonstick dressing, kerlix wrap Psych Appearance: grossly normal Mental Status: mental status grossly normal Speech and movement: Normal speech and movement present Affect: normal affect Attitude: cooperative Thought process: Normal thought process present Thought content: Normal thought content present Insight: Good insight present (Psych) Judgement: Good judgement present (Psych) Immunizations Boostrix Tdap 2.5 Lf unit-8 mcg-5 Lf/0.5 mL intramuscular syringe Performing Provider: MARK Morelos Performing Location: [facility] [place] [facility] Administered by: Ziggy Lozano CMA on 11/30/23 14:13 Dose Route Admin Location Dispensed Lot Number Expiration Date NDC Metal Machine Operator 0.5 mL IM Right Deltoid 0.5 mL [id number] 02/03/26 [id number] [employer] VIS Given Date VIS Provided VIS Publication Date 11/30/23 Single Vaccine 21 Eligibility Eligibility Date Funding Source Not [facility] Eligible 11/30/23 Private Assessment and Plan Assessment & Plan (1) Abrasion: Code(s): T14.8XXA - Other injury of unspecified body region, initial encounter Plan: pt knows to go to the er with worsening symptoms. Pt is to cont to monitor for s/s of infection, and will cont daily dressing changes. Plan The patient agreed to the use of a durable medical equipment technician for this encounter. Scribed for MARK Mattson by Karissa Rosas durable medical equipment technician, on 11/30/2023 at 13:20 EST. Orders: Orders TDaP Immunization Today Z23 - Encounter for immunization Medications: New cephalexin 500 mg PO BID 7 days 14 caps 1RF Coding Level of Care Code Est Pt Level 3 (97199) Diagnoses Abrasion T14.8XXA
[2023-11-30 13:11] VITALS: BP 120/70; PULSE 85; O2SAT 100; BMI 31.6
== END 2023-11-30 15:21 | disposition home or self-care (01) ==
PROVIDERS: PCP Nurse Practitioner Family; Visit Provider Nurse Practitioner Family
DX: T14.8XXA Other injury of unspecified body region, initial encounter (principal); Z23 Encounter for immunization
CPT/HCPCS: 90471; 90715; 99213

== ENCOUNTER 2023-12-14 15:55 | Outpatient (AMB) | payer BC, SELFPAY ==
[2023-12-14 15:57] VITALS: BP 126/72; PULSE 86; TEMP 36.7; O2SAT 98; BMI 32.2
--- NOTE | 2023-12-14 15:57 | MHC.OFFWIV ---
Intake Vital Signs 12/14/23 15:57 Height 5 ft 8 in Weight 212 lb 2 oz BMI 32.2 BP 126/72 Blood Pressure Location Rt brachial Position Sitting Pulse 86 Pulse Source Pulse Oximeter Temp 98.1 F Temp Source Oral Pulse Oximetry (%) 98 Oxygen Delivery Method Room Air Intake Visit Reasons: EP RT leg abrasion redness (lobby) Intake Note: Pt is here today for RT leg abrasion redness Patient Tobacco Use Status: Never used Tobacco Allergies penicillamine Allergy (Unknown, Verified 12/14/23 15:57) unknown Do you need a note to return to daycare/school/sports/work: No HPI EP RT leg abrasion redness (lobby) HPI Details 78 yr old male presented to the office for a sick visit. He would like to have the wound on his right leg examined. Pt had injured himself a few weeks ago, had an abrasion, treated with antibiotics. He has diabetic neuropathy in the legs and reports no sensation of pain. 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 Vitamin D deficiency Cholecystectomy planned Osteoarthritis History of colon cancer CKD (chronic kidney disease) Sarcoidosis Partial nontraumatic amputation of right foot PVD (peripheral vascular disease) Diabetic retinopathy Spherocytosis Skin cancer Peripheral neuropathy Spinal stenosis Renal stones Pulmonary sarcoidosis Diabetes Surgical History History of ureter repair H/O splenectomy S/P ureteral reimplantation History of surgical removal of pilonidal cyst History of tonsillectomy and adenoidectomy H/O right hemicolectomy Status post laser lithotripsy of ureteral calculus Hx of cholecystectomy Hx of colonoscopy Family History Mother Thyroid cancer Other Mental health disorder Social History Household Members: Friend(s) Housing: House Are you a primary healthcare network consultant to a significant other at home: No Do you presently have visiting nurse or other home services: No Alcohol intake: never Patient Tobacco Use Status: Never used Tobacco e-Cigarette/Vaping Use: Never Used Second Hand Smoke Exposure: No service: No Current occupational status: employed and retired Cognitive needs: No Hearing needs: No Vision needs: No Physical Exam Vital Signs: Last Vital Signs Temp 98.1 F 12/14/23 15:57 Pulse 86 12/14/23 15:57 BP 126/72 12/14/23 15:57 Pulse Ox 98 12/14/23 15:57 Oxygen Delivery Method Room Air 12/14/23 15:57 BMI result Body Mass Index 32.2 Extrem Other: Right leg: healing wound. scaling of the wound Assessment & Plan Assessment & Plan (1) Cellulitis: Code(s): L03.90 - Cellulitis, unspecified Plan: No antibiotics needed. Reassurance. Coding Level of Care Code Est Pt Level 3 (02654) Diagnoses Cellulitis L03.90
== END 2023-12-14 16:21 | disposition home or self-care (01) ==
PROVIDERS: PCP Nurse Practitioner Family; Visit Provider Internal Medicine
DX: L03.90 Cellulitis, unspecified (principal)
CPT/HCPCS: 99213

== ENCOUNTER 2024-02-03 12:59 | Outpatient (AMB) | payer BC, SELFPAY ==
--- NOTE | 2024-02-03 13:10 | MHC.PC.OV ---
Vital Signs 02/03/24 13:14 Height 5 ft 8 in Weight 216 lb BMI 32.8 BP 120/76 Blood Pressure Location Rt brachial Position Sitting Pulse 82 Pulse Source Pulse Oximeter Pulse Oximetry (%) 98 Oxygen Delivery Method Room Air Intake Visit Reasons: Post Covid (1 Issue to discuss) Intake Note: Patient here for post covid f/u. Allergies penicillamine Allergy (Unknown, Verified 02/03/24 13:14) unknown Medication List - Last Reconciled 02/03/24 by MARK Morelos ascorbate calcium (vitamin C) 1.5 grams PO DAILY berberine-herbal comb no.18 500 caps PO BID blood sugar diagnostic (Contour Test Strips) 5 times a day cholecalciferol (vitamin D3) 1,200 units PO DAILY insulin NPH isoph U-100 human (Humulin N NPH U-100 Insulin (isophane susp)) 30 units (0.3 mL) subcut BID 90 days insulin syringe-needle U-100 (BD Insulin Syringe Ultra-Fine) Use to inject insulin twice per day latanoprost 0.005% drps ophthalmic (eye) magnesium chloride 400 mg PO DAILY mupirocin 2% 1 appl topical BID 7 days resveratrol mg PO [resvertrol ] aabslxdx-cjxg-cmpkl-oreg-capry 100 mg-150 mg- 50 mg-150 mg 500 caps PO BID vitamin B complex 1 cap PO DAILY zinc 50 mg PO DAILY Tobacco use date assessed: 10/28/23 Fall risk assessment: No Falls in past year Last assessed Fall Risk: 02/03/24 Dental Screening Dental Screen Date: 11/30/23 HPI Post Covid (1 Issue to discuss) HPI Details Pt has a hx of frequent UTIs. Will order UA and culture. Denies fever, chills, and hematuria. Pt has a hx of vitamin D deficiency, will order labs. Pt reports ongoing weakness and balance issues. Highly encouraged pt to go to PT. 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 Vitamin D deficiency Cholecystectomy planned Osteoarthritis History of colon cancer CKD (chronic kidney disease) Sarcoidosis Partial nontraumatic amputation of right foot PVD (peripheral vascular disease) Diabetic retinopathy Spherocytosis Skin cancer Peripheral neuropathy Spinal stenosis Renal stones Pulmonary sarcoidosis Diabetes Surgical History History of ureter repair H/O splenectomy S/P ureteral reimplantation History of surgical removal of pilonidal cyst History of tonsillectomy and adenoidectomy H/O right hemicolectomy Status post laser lithotripsy of ureteral calculus Hx of cholecystectomy Hx of colonoscopy Family History Mother Thyroid cancer Other Mental health disorder Social History Household Members: Friend(s) Housing: House Are you a primary resident care aide to a significant other at home: No Do you presently have visiting nurse or other home services: No Alcohol intake: never Patient Tobacco Use Status: Never used Tobacco e-Cigarette/Vaping Use: Never Used Second Hand Smoke Exposure: No service: No Current occupational status: employed and retired Cognitive needs: No Hearing needs: No Vision needs: No Questionnaire Thrive Questionnaire Date Thrive assessed: 08/24/22 CANDIS-7 AMB Questionnaire CANDIS-7 Date CANDIS - 7 assessed: 08/24/22 Source: Developed by Drs. Ernesto Moscoso, Jodi Alvarado, Sam Deluna and colleagues, with an educational devon from [employer]. Review of Systems Const Reports as per HPI Physical exam (Primary Care) Vital Signs: Last Vital Signs Pulse 82 02/03/24 13:14 BP 120/76 02/03/24 13:14 Pulse Ox 98 02/03/24 13:14 Oxygen Delivery Method Room Air 02/03/24 13:14 BMI result Body Mass Index 32.8 Tobacco/Smoking Status: Tobacco use Status Tobacco use date assessed 10/28/23 02/03/24 13:12 Patient Tobacco Use Status Never used Tobacco 02/03/24 13:12 e-Cigarette/Vaping Use Never Used 02/03/24 13:12 Thrive Assessment: Date of Thrive Assessment Date Thrive assessed 08/24/22 02/03/24 13:12 Const Other: uses walker General: cooperative Nutritional Appearance: obese Orientation/consciousness: patient oriented x3 Resp Effort & Inspection: normal respiratory effort Auscultation: clear to auscultation bilaterally Cardio Rate: regular rate Rhythm: regular rhythm Heart sounds: S1 normal heart sound present and S2 normal heart sound present Neuro General: patient oriented x3 Psych Appearance: grossly normal Mental Status: mental status grossly normal Speech and movement: Normal speech and movement present Affect: normal affect Attitude: cooperative Thought process: Normal thought process present Thought content: Normal thought content present Insight: Good insight present (Psych) Judgement: Good judgement present (Psych) Assessment and Plan Assessment & Plan (1) Frequent UTI: Code(s): N39.0 - Urinary tract infection, site not specified Plan: UA and culture ordered (2) Vitamin D deficiency: Code(s): E55.9 - Vitamin D deficiency, unspecified Plan: Vitamin D ordered (3) Weakness of both lower extremities: Code(s): R29.898 - Other symptoms and signs involving the musculoskeletal system Plan: already referred to PT. pt will call to schedule an appointment Plan The patient agreed to the use of a medical records director for this encounter. Scribed for MARK Mattson by Karissa Rosas medical records director, on 02/03/2024 at 13:30 EST. Orders: Orders UA CC w/rflx Micro + Cult Today N39.0 - Urinary tract infection, site not specified Urine Culture Today N39.0 - Urinary tract infection, site not specified Vitamin D 25-OH Total Today E55.9 - Vitamin D deficiency, unspecified Coding Level of Care Code Est Pt Level 3 (74895) Diagnoses Frequent UTI N39.0 Vitamin D deficiency E55.9 Weakness of both lower extremities R29.898
[2024-02-03 13:14] VITALS: BP 120/76; PULSE 82; O2SAT 98; BMI 32.8
== END 2024-02-03 14:44 | disposition home or self-care (01) ==
PROVIDERS: PCP Nurse Practitioner Family; Visit Provider Nurse Practitioner Family
DX: N39.0 Urinary tract infection, site not specified (principal); E55.9 Vitamin D deficiency, unspecified; R29.898 Other symptoms and signs involving the musculoskeletal system
CPT/HCPCS: 99213

== ENCOUNTER 2024-02-22 11:21 | Outpatient (AMB) | payer BC, SELFPAY ==
[2024-02-22 11:29] VITALS: BP 108/72; PULSE 77; O2SAT 98; BMI 32.1
--- NOTE | 2024-02-22 11:29 | AM.OFFWIN_ITS ---
Intake Vital Signs 02/22/24 11:29 Height 5 ft 8 in Weight 211 lb 6 oz BMI 32.1 BP 108/72 Blood Pressure Location Rt brachial Position Sitting Pulse 77 Pulse Source Pulse Oximeter Pulse Oximetry (%) 98 Oxygen Delivery Method Room Air Intake Visit Reasons: EP weakness, light headed, low blood pressure Intake Note: pt is here for weakness, light headed, low blood pressure stated it started yesterday at physical therapy Patient Tobacco Use Status: Never used Tobacco Allergies penicillamine Allergy (Unknown, Verified 02/22/24 12:05) unknown Medication List - Last Reconciled 02/22/24 by YOMI Mclaughlin ascorbate calcium (vitamin C) 1.5 grams PO DAILY berberine-herbal comb no.18 500 caps PO BID blood sugar diagnostic (Contour Test Strips) 5 times a day cholecalciferol (vitamin D3) 1,200 units PO DAILY insulin NPH isoph U-100 human (Humulin N NPH U-100 Insulin (isophane susp)) 30 units (0.3 mL) subcut BID 90 days insulin syringe-needle U-100 (BD Insulin Syringe Ultra-Fine) Use to inject insulin twice per day latanoprost 0.005% drps ophthalmic (eye) magnesium chloride 400 mg PO DAILY mupirocin 2% 1 appl topical BID 7 days resveratrol mg PO [resvertrol ] xoxftqli-iokv-vitxg-oreg-capry 100 mg-150 mg- 50 mg-150 mg 500 caps PO BID vitamin B complex 1 cap PO DAILY zinc 50 mg PO DAILY Do you need a note to return to daycare/school/sports/work: No HPI HPI Comments History of Present Illness Details Patient is a 78-year-old male in today for a sick visit. Patient has a past medical history significant for diabetes type 2, long COVID, bilateral leg weakness, vitamin D3 deficiency. He reports while at physical therapy 1 day prior to this appointment he felt lightheaded. His blood pressure was taken at that time was noted to be 90/60. He arrives today stating that his blood pressure is usually 120/80 feels that it has been low over the past couple of weeks. Denies recent fever or chills, denies chest pain shortness a breath, denies nausea vomiting or diarrhea. Patient is not currently on any blood pressure medications. Slightly hyp onatremic at previous blood draw 4 months prior. Will order CBC and CMP, patient's POC today 160 in office. Will also order ambulatory EKG. Patient will be instructed to take blood pressure measurements at home. 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 Vitamin D deficiency Cholecystectomy planned Osteoarthritis History of colon cancer CKD (chronic kidney disease) Sarcoidosis Partial nontraumatic amputation of right foot PVD (peripheral vascular disease) Diabetic retinopathy Spherocytosis Skin cancer Peripheral neuropathy Spinal stenosis Renal stones Pulmonary sarcoidosis Diabetes Surgical History History of ureter repair H/O splenectomy S/P ureteral reimplantation History of surgical removal of pilonidal cyst History of tonsillectomy and adenoidectomy H/O right hemicolectomy Status post laser lithotripsy of ureteral calculus Hx of cholecystectomy Hx of colonoscopy Family History Mother Thyroid cancer Other Mental health disorder Social History Household Members: Friend(s) Housing: House Are you a primary healthcare insurance sales agent to a significant other at home: No Do you presently have visiting nurse or other home services: No Alcohol intake: never Patient Tobacco Use Status: Never used Tobacco e-Cigarette/Vaping Use: Never Used Second Hand Smoke Exposure: No service: No Current occupational status: employed and retired Cognitive needs: No Hearing needs: No Vision needs: No Review of Systems Const All systems reviewed & are unremarkable except as noted in HPI and below Denies chills and Denies fever(s) Eyes Denies blurry vision and Denies diplopia ENT Denies dizziness Card Denies chest pain and Denies dyspnea Resp Denies cough, Denies dyspnea and Denies wheezing GI Denies diarrhea, Denies nausea and Denies vomiting Musc Denies tingling Neuro Denies dizziness, Denies tingling and Denies paresthesias Aller/Immun Denies wheezing Physical Exam Vital Signs: Last Vital Signs Pulse 77 02/22/24 11:29 BP 108/72 02/22/24 11:29 Pulse Ox 98 02/22/24 11:29 Oxygen Delivery Method Room Air 02/22/24 11:29 BMI result Body Mass Index 32.1 Patient's blood pressure in office well controlled. Results AMB Random Glucose (hemocue) AMB Random Glucose (hemocue) 160 mg/dL Last Edit by ROLAND Aguiar 02/22/24 12:01 Assessment & Plan Assessment & Plan (1) Exertional hypotension: Comment: Patient was found to be hypotensive at recent physical therapy session. Patient's blood pressure normal today. Patient also negative for orthostatic hypotension in office today. Patient had in office EKG. Patient's blood sugar in office today was 160. Patient will be instructed to stay hydrated. Previous blood draw for months prior demonstrated slight hyponatremia. Patient can slightly increase salt intake. Will order CBC, CMP, UA Code(s): I95.89 - Other hypotension Plan: Take your medications as prescribed. If you were prescribed antibiotics today, it is important that you take your medication to their entirety, do not skip any doses, do not finish them early. Follow-up with your primary care provider this week. Return to the emergency department with new or worsening symptoms. Such as fevers, chills, chest pain, shortness of breath, nausea, vomiting, dizziness, headache, vision changes, lethargy In case of emergency call 911 Plan follow up with pcp. Orders: Orders AMB EKG-In Office Today R53.1 - Weakness Comprehensive Met. Panel Today Z91.89 - Other specified personal risk factors, not elsewhere classified UA CC w/rflx Micro + Cult Today N39.0 - Urinary tract infection, site not specified AMB Random Glucose (hemocue) Today Z13.9 - Encounter for screening, unspecified Complete Blood Count Auto Diff Today Z13.0 - Encounter for screening for diseases of the blood and blood-forming organs and certain disorders involving the immune mechanism Coding Level of Care Code Est Pt Level 4 (44687) Diagnoses Exertional hypotension I95.89 Time Spent (min) 41
== END 2024-02-22 12:12 | disposition home or self-care (01) ==
PROVIDERS: PCP Nurse Practitioner Family; Visit Provider Nurse Practitioner Primary Care
DX: I95.89 Other hypotension (principal); Z13.9 Encounter for screening, unspecified
CPT/HCPCS: 82948; 99214

== ENCOUNTER 2024-02-22 12:20 | Outpatient (REF) | payer BC, SELFPAY ==
[2024-02-22 15:59] LABS: MANUAL DIFF FLAG NO
[2024-02-22 16:07] LABS: Basophils Absolute Auto 0.1 X10*3/uL (0.0-0.2); Basophils Percent Auto 0.8 % (0-2); Eosinophils Absolute Auto 0.2 X10*3/uL (0.0-0.4); Eosinophils Percent Auto 2.8 % (0-4); Hematocrit 41.3 % (42.0-52.0); Hemoglobin 14.6 g/dl (14.0-18.0); Imm Gran Abs Auto 0.03 X10*3/uL (0.00-0.03); Imm Gran Pct Auto 0.4 % (0.0-0.4); Lymphocytes Absolute Auto 2.4 X10*3/uL (1.2-4.9); Lymphocytes Percent Auto 32.8 % (20-40); Mean Corpuscular HGB Conc 35.4 g/dl (31.0-36.0); Mean Corpuscular Hemoglobin 31.1 pg (27.0-33.0); Mean Corpuscular Volume 87.9 fL (80.0-98.0); Monocytes Absolute Auto 0.8 X10*3/uL (0.1-1.2); Monocytes Percent Auto 11.2 % (2-11); Neutrophils Absolute Auto 3.8 x10*3/uL (2.0-8.3); Platelet Count 419 X10*3/uL (160-400); White Blood Count 7.3 X10*3/uL (4.8-10.8)
[2024-02-22 16:50] LABS: Alanine Aminotransferase 15 U/L (0-40); Alkaline Phosphatase 83 U/L (39-117); Anion Gap 13 (12-20); Aspartate Amino Transferase 22 U/L (5-37); Bilirubin Total 1.2 mg/dL (0.0-1.0); Blood Urea Nitrogen 21 mg/dL (9-16); Calcium 10.4 mg/dL (8.4-10.2); Carbon Dioxide 25 mmol/L (22-29); Chloride 106 mmol/L (96-108); Estimated Glomerular Filt Rate > 60; Glucose Random 155 mg/dL (60-115); Potassium 3.8 mmol/L (3.3-5.1); Sodium 140 mmol/L (135-145); Total Protein 7.5 g/dL (6.5-8.0)
== END 2024-02-22 12:21 | disposition home or self-care (01) ==
LOC: HO.HMGCLDS 12:20
PROVIDERS: PCP Nurse Practitioner Family; Visit Provider Nurse Practitioner Primary Care
DX: E55.9 Vitamin D deficiency, unspecified (principal); Z13.9 Encounter for screening, unspecified; Z13.0 Encounter for screening for diseases of the blood and blood-forming organs and certain disorders involving the immune mechanism; Z91.89 Other specified personal risk factors, not elsewhere classified; N39.0 Urinary tract infection, site not specified
CPT/HCPCS: 36415; 80053; 82306; 85025

== ENCOUNTER 2024-02-27 13:56 | Emergency (ER) | payer BC, SELFPAY ==
--- NOTE | ~2024-02-27 | CT_ITS ---
EXAMINATION: CT brain, cervical spine and CT facial bones. CLINICAL INDICATIONS: Fall, head strike. COMPARISON: TECHNIQUE: 5 mm thin axial and reformatted 2 mm thin sagittal and coronal images of brain were obtained. Subsequently axial 3 mm and reformatted 2 minutes thin sagittal and coronal images of cervical spine were obtained. Lastly axial 3 mm thin and reformatted 1.5 mm thin sagittal coronal images of facial bones were obtained. DLP [id number]. This CT examination was performed using dose optimization technique as appropriate, variously including the following: Automated exposure control Adjustment of MA and/or KV according to patient size(this includes techniques or standardized protocols for targeted exams where dose is matched to indication/reason for exam; extremities or head. Use of iterative reconstruction techniques. FINDINGS: Brain: There is no acute intra-axial, extra-axial bleed, masses or midline shift. There is no acute infarction in evolution. There is no edema. The lateral ventricles are symmetrical but enlarged. There is mild periventricular hypodensity in both cerebral hemispheres without mass effect. Bone windows reveal no calvarial abnormality. Bilateral paranasal sinuses and mastoid air cells are well-aerated. Cervical spine: There is normal cervical lordosis. The vertebral heights and alignment is normal. There are ventral bridging osteophytes from C3 to C7 vertebra. There is no visible acute fracture, dislocation or subluxation seen. Bilateral C4-C5, left C3-C4 facet joint arthropathy is noted. Prevertebral and paravertebral soft tissues are normal.. The lung apices are clear. Thyroid lobes are symmetrical and normal. The tracheal airway is patent. Facial bones: There is normal symmetry of bilateral optic globe, optic nerve and periorbital soft tissues. The paranasal sinuses are well-aerated with minimal mucoperiosteal thickening anterior ethmoid sinus. Small retention cyst or polyp is seen in the floor of the right maxillary sinus. The bony sinus puckett and lamina papyracea is intact. Visualized maxillofacial, nasal and mandibular bones are intact. Bilateral TM joints are symmetrical and normal. CT/CT cervical spine wo IV con IMPRESSION: No acute intracranial process seen. Mild degenerative changes cervical spine without acute fracture or dislocation. No maximal facial, nasal or mandibular fractures seen. There is minimal mucoperiosteal thickening anterior ethmoid and right maxillary sinus.
--- NOTE | ~2024-02-27 | XR_ITS ---
EXAMINATION: XR tibia fibula RT 2V, XR knee RT 4V 02/27/2024 2:30 PM CLINICAL HISTORY: fall, pain COMPARISON: None FINDINGS: Age-indeterminate fragmentation of superior patellar osteophyte. Patella baja No definite evidence of acute fracture or malalignment. Small tricompartmental osteophytes. Joint spaces otherwise preserved, within limitations of nonweightbearing technique. Probable trace suprapatellar joint effusion, suboptimally assessed due to knee hyperflexion. Vascular calcifications. Mild suprapatellar soft tissue swelling. XR/XR tibia fibula RT 2V IMPRESSION: Mildly low lying patella with age-indeterminate fragmentation of superior patellar osteophyte, may be seen in setting of avulsion or quadriceps ligamentous injury. Correlate with point tenderness.
--- NOTE | ~2024-02-27 | XR_ITS ---
EXAMINATION: XR tibia fibula RT 2V, XR knee RT 4V 02/27/2024 2:30 PM CLINICAL HISTORY: fall, pain COMPARISON: None FINDINGS: Age-indeterminate fragmentation of superior patellar osteophyte. Patella baja No definite evidence of acute fracture or malalignment. Small tricompartmental osteophytes. Joint spaces otherwise preserved, within limitations of nonweightbearing technique. Probable trace suprapatellar joint effusion, suboptimally assessed due to knee hyperflexion. Vascular calcifications. Mild suprapatellar soft tissue swelling. XR/XR knee RT 4V IMPRESSION: Mildly low lying patella with age-indeterminate fragmentation of superior patellar osteophyte, may be seen in setting of avulsion or quadriceps ligamentous injury. Correlate with point tenderness.
--- NOTE | 2024-02-27 13:58 | ED.FALL ---
HPI - Fall General Chief Complaint: Fall Stated Complaint: fall, facial lacs, knee pain Time Seen by Provider: 02/27/24 16:05 Source: patient Mode of arrival: ambulatory Limitations: no limitations History of Present Illness HPI Narrative: Patient is a 78-year-old male who presents to the emergency department for evaluation after a mechanical fall while washing his car, his rolling walker moved away from him, resulting in him losing his balance and falling, endorses a headstrike, no reported LOC, having lower R knee pain which he feels is secondary to the abrasion that is present, has full range of motion to the knee and has been ambulatory after the incident happened, also endorses having distal deshpande abrasions, reopening of the wound on the deshpande. He reports having a headache, facial lacerations to lateral R orbit and cheek. Not anticoagulated. States his tetanus vaccine is up-to-date within the past 6 months. Related Data Home Medications ?Medication ?Instructions ?Recorded ?Confirmed zinc 50 mg capsule 50 mg PO DAILY 08/13/20 02/22/24 vitamin B complex 1 cap PO DAILY 10/14/20 02/22/24 turmeric 100 mg-steve 150 500 cap PO BID 09/03/21 02/22/24 mg-olive 50 mg-oreg 150 mg-capryl capsule berberine-herbal comb no.18 capsule 500 cap PO BID 12/31/22 02/22/24 resvertrol 06/01/23 02/22/24 ascorbate calcium (vitamin C) 500 1.5 g PO DAILY 07/07/23 02/22/24 mg tablet cholecalciferol (vitamin D3) 100 1,200 unit PO DAILY 09/27/23 02/22/24 mcg (4,000 unit) capsule latanoprost 0.005 % eye drops drp ophthalmic (eye) 10/28/23 02/22/24 resveratrol 100 mg capsule mg PO 10/28/23 02/22/24 magnesium chloride 64 mg 400 mg PO DAILY 02/03/24 02/22/24 (magnesium chloride) tablet Previous Rx's ?Medication ?Instructions ?Recorded insulin NPH isoph U-100 human 100 30 unit (0.3 mL) subcut BID 90 08/24/22 unit/mL subcutaneous suspension days #60 mL (Humulin N NPH U-100 Insulin (isophane susp)) blood sugar diagnostic (Contour #100 ea 06/01/23 Test Strips) mupirocin 2 % topical ointment 1 appl topical BID 7 days #15 grams 11/20/23 insulin syringe-needle U-100 1 mL #200 ea 02/16/24 30 gauge x 1/2 (BD Insulin Syringe Ultra-Fine) Allergies Allergy/AdvReac Type Severity Reaction Status Date / Time penicillamine Allergy Unknown unknown Verified 02/27/24 14:03 Review of Systems Review of Systems: Yes all other systems are reviewed and are negative [facility] Past Medical History Attestation statement: The following information was validated with the patient. 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 Vitamin D deficiency Cholecystectomy planned Osteoarthritis History of colon cancer CKD (chronic kidney disease) Sarcoidosis Partial nontraumatic amputation of right foot PVD (peripheral vascular disease) Diabetic retinopathy Spherocytosis Skin cancer Peripheral neuropathy Spinal stenosis Renal stones Pulmonary sarcoidosis Diabetes Surgical History History of ureter repair H/O splenectomy S/P ureteral reimplantation History of surgical removal of pilonidal cyst History of tonsillectomy and adenoidectomy H/O right hemicolectomy Status post laser lithotripsy of ureteral calculus Hx of cholecystectomy Hx of colonoscopy Family History Family History Mother Thyroid cancer Other Mental health disorder Social History Social History Household Members: Friend(s) Housing: House Are you a primary director of patient care to a significant other at home: No Do you presently have visiting nurse or other home services: No Alcohol intake: never Patient Tobacco Use Status: Never used Tobacco e-Cigarette/Vaping Use: Never Used Second Hand Smoke Exposure: No Advance Directives: No Advance Directives Information Provided: No service: No Current occupational status: employed and retired Cognitive needs: No Hearing needs: No Vision needs: No Physical Exam Vital Signs: Vital Signs: Last Vital Signs Temp 98.7 F 02/27/24 14:01 Pulse 92 02/27/24 14:01 Resp 18 02/27/24 14:01 BP 124/77 02/27/24 14:01 Pulse Ox 100 02/27/24 14:01 O2 Del Method Room Air 02/27/24 14:01 BMI result Body Mass Index 29.6 Appearance: Alert.?Oriented to person, place and time. No acute distress.?Normal affect. Head: Normocephalic. No angeles sign. Eyes: Pupils equal, round and reactive to light. EOMI. Conjunctiva and sclera normal? No raccoon eyes noted right lateral and inferior periorbital ecchymosis, localized swelling, with 2 superficial lacerations measuring approximately 0.5 cm without active bleeding. ENT: No septal hematoma, nares patent bilaterally. External auditory canal normal tympanic membrane pearly herndon and intact bilaterally. Dentition normal, no fractured teeth. No lesions or lacerations of oropharynx. Uvula midline. Moist mucous membranes. Neck: Normal inspection.? Neck supple.??No palpable tenderness, step-off, deformities. CVS: Heart sounds normal. Normal heart rate and rhythm.? Pulses normal.?? Respiratory: No respiratory distress.? Lung sounds clear to auscultation bilaterally?? Abdomen: Soft and non-tender. Normoactive bowel sounds. ?? Skin: Skin warm and dry.? Normal skin color.? Normal skin turgor.?? Extremities: No lower extremity edema.? Right knee with superficial abrasion over the patella. No point tenderness. Full range of motion to the right knee. No effusion. No palpable quadricep deformity. 2+ DP/PT pulse bilaterally. Ambulatory with steady gait and the use of a wheeled walker. Neuro: Moves all extremities spontaneously. Sensation intact bilaterally. CN II-XII intact. No focal neuro deficits. Medical Decision Making Medical Decision Making MDM Narrative: Patient is a 78 presents emergency department for evaluation after a mechanical fall as per HPI. This superficial lacerations to his right lateral/inferior orbit were cleansed with normal saline, amenable to repair with skin adhesive and patient was in agreement with this plan of care. CT of the head was without acute intracranial pathology, no ICH, no fracture, no subluxation, no maxillofacial fractures noted. Has no focal neurological deficits. XR of the right knee/tib-fib without effusion, patella is low-lying with age indeterminate fragmentation of the superior patella, on exam he does not have any point tenderness in this area, quadricep muscle without palpable deformity, full range of motion. Discussed the possibility of quadricep ligamentous injury versus avulsion fracture, discussed use of knee immobilizer until evaluated on follow-up with orthopedics versus PCP, declines interest in knee immobilizer as this would limit his mobility, as he is already using a walker. He is ambulating without difficulty. He is requesting discharge which I feel is reasonable at this time. Discussed worrisome signs and symptoms that would warrant re-evaluation in the emergency department. All questions were answered Differential Diagnosis Differential Diagnoses: The differential diagnosis associated with the presentation includes (See narrative above) Admission/Observation Consideration of admission/observation: Escalation of care including admission/observation considered (See narrative above) Independent Interpretation I performed an independent interpretation of an: CT Scan (No ICH or fracture) Radiology Impression Discussion of test interpretation with radiology: I have reviewed the radiologist's reading. Radiologist Impression: CT/CT head/brain wo IV con IMPRESSION: No acute intracranial process seen. Mild degenerative changes cervical spine without acute fracture or dislocation. No maximal facial, nasal or mandibular fractures seen. There is minimal mucoperiosteal thickening anterior ethmoid and right maxillary sinus. XR/XR tibia fibula RT 2V IMPRESSION: Mildly low lying patella with age-indeterminate fragmentation of superior patellar osteophyte, may be seen in setting of avulsion or quadriceps ligamentous injury. Correlate with point tenderness. Independent Historian Clinical information obtained from an independent historian. History obtained from or confirmed by: Other (Grandson) External Record Review External record reviewed: Outpatient record Tests considered The following testing was considered but not selected: Mechanical fall, would defer serum labs, EKG. Prescription Management I considered prescription management with: Pain Medication (Acetaminophen) Discharge Plan Discharge Clinical Impression: Laceration of face, Periorbital contusion of right eye, Acute head injury without loss of consciousness, Contusion of knee, right Patient Disposition: Home, Self-Care Instructions: Head Injury (ED), Contusion in Adults (ED), Skin Adhesive Care (ED) Additional Instructions: CT scan today does not show any bleeding into the brain fractures, or facial fractures. This is very reassuring. The lacerations to your face were cleaned and closed with skin adhesive at your discretion. Apply bacitracin to the abrasions on your right leg. Follow-up with your primary care provider. Return back to emergency department any new or worsening symptoms or concerns. Prescriptions: No Action (DME) insulin syringe-needle U-100 [BD Insulin Syringe Ultra-Fine] 1 mL 30 gauge x 1/2 syringe See Rx Instructions .Route Qty: 200 3RF Rx Instructions: Use to inject insulin twice per day vitamin B complex Capsule 1 cap PO DAILY zinc 50 mg Capsule 50 mg PO DAILY mupirocin 2 % ointment 1 appl topical BID 7 Days Qty: 15 0RF aorrkhpe-ozik-qzdiq-oreg-capry 100 mg-150 mg- 50 mg-150 mg capsule 500 cap PO BID cholecalciferol (vitamin D3) 100 mcg (4,000 unit) capsule 1,200 unit PO DAILY berberine-herbal comb no.18 Capsule 500 cap PO BID ascorbate calcium (vitamin C) 500 mg tablet 1.5 g PO DAILY Humulin N NPH U-100 Insulin 100 unit/mL suspension 30 unit subcut BID 90 Days Qty: 60 3RF magnesium chloride 64 mg magnesium tablet 400 mg PO DAILY (DME) resvertrol 0 .Route .MEDSUPPLY (DME) Contour Test Strips Strip See Rx Instructions .Route Qty: 100 3RF Rx Instructions: 5 times a day latanoprost 0.005 % drops ophthalmic (eye) resveratrol 100 mg capsule PO Referrals: Stuart Will, [employer] [Primary Care Provider] - Interventions: ED Discharge Assessment Last Done: 02/27/24 16:24 Print Language: Sami
[2024-02-27 14:01] VITALS: BP 124/77; PULSE 92; RESP 18; TEMP 37.1; O2SAT 100; BMI 29.6
[2024-02-27 16:24] VITALS: BP 113/61; PULSE 83; RESP 18; TEMP 37.1; O2SAT 100
== END 2024-02-27 16:25 | disposition home or self-care (01) ==
PROVIDERS: Emergency Provider Internal Medicine; PCP Nurse Practitioner Family
DX: S00.11XA Contusion of right eyelid and periocular area, initial encounter (principal); S80.01XA Contusion of right knee, initial encounter; S01.411A Laceration without foreign body of right cheek and temporomandibular area, initial encounter; S80.811A Abrasion, right lower leg, initial encounter; S09.8XXA Other specified injuries of head, initial encounter; W18.39XA Other fall on same level, initial encounter; E11.9 Type 2 diabetes mellitus without complications; Y93.89 Activity, other specified; Y92.89 Other specified places as the place of occurrence of the external cause; Y99.9 Unspecified external cause status; Z79.4 Long term (current) use of insulin; Z79.899 Other long term (current) drug therapy
CPT/HCPCS: 12011; 70450; 70486; 72125; 73564; 73590; 99282; 99284

== ENCOUNTER 2024-02-29 12:54 | Outpatient (AMB) | payer BC, SELFPAY ==
--- NOTE | 2024-02-29 13:02 | A.OFFPC_ITS ---
Vital Signs 02/29/24 13:06 Weight 215 lb BP 110/70 Blood Pressure Location Lt brachial Position Sitting Pulse 74 Pulse Source Pulse Oximeter Pulse Oximetry (%) 92 Oxygen Delivery Method Room Air Intake Visit Reasons: Post COVID Intake Note: Patient here to discuss recent fall. Allergies penicillamine Allergy (Unknown, Verified 02/29/24 13:06) unknown Tobacco use date assessed: 10/28/23 Fall risk assessment: 1 Fall in past year Last assessed Fall Risk: 02/29/24 Dental Screening Dental Screen Date: 11/30/23 HPI Post COVID HPI Details Pt was seen in the ER on 02/26 after a fall with head strike, no LOC. Pt also c/o right knee pain. He had abrasions to his deshpande and facial lacs. Facial lacs were cleaned and closed with skin adhesive. Head CT showed no acute intracranial pathology, no ICH, no fracture, no subluxation, no maxillofacial fractures noted.XR of the right knee and tib/fib showed no effusion, patella is low-lying with age indeterminate fragmentation of the superior patella. It was recommended that pt use a knee immobilizer which he declined. Pt has full range of motion of his knee. ? start of an infection to facial laceration. Will send cephalexin. Denies fever, chills, blurred vision, and dizziness. 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 Vitamin D deficiency Cholecystectomy planned Osteoarthritis History of colon cancer CKD (chronic kidney disease) Sarcoidosis Partial nontraumatic amputation of right foot PVD (peripheral vascular disease) Diabetic retinopathy Spherocytosis Skin cancer Peripheral neuropathy Spinal stenosis Renal stones Pulmonary sarcoidosis Diabetes Surgical History History of ureter repair H/O splenectomy S/P ureteral reimplantation History of surgical removal of pilonidal cyst History of tonsillectomy and adenoidectomy H/O right hemicolectomy Status post laser lithotripsy of ureteral calculus Hx of cholecystectomy Hx of colonoscopy Family History Mother Thyroid cancer Other Mental health disorder Social History Housing: House Are you a primary emergency care tech to a significant other at home: No Do you presently have visiting nurse or other home services: No Alcohol intake: never Patient Tobacco Use Status: Never used Tobacco e-Cigarette/Vaping Use: Never Used Second Hand Smoke Exposure: No service: No Current occupational status: employed and retired Cognitive needs: No Hearing needs: No Vision needs: No Questionnaire Thrive Questionnaire Date Thrive assessed: 08/24/22 CANDIS-7 AMB Questionnaire CANDIS-7 Date CANDIS - 7 assessed: 08/24/22 Source: Developed by Drs. Ernesto Moscoso, Jodi Alvarado, Sam Deluna and colleagues, with an educational devon from [employer]. Review of Systems Const Reports as per HPI Physical exam (Primary Care) Vital Signs: Last Vital Signs Pulse 74 02/29/24 13:06 BP 110/70 02/29/24 13:06 Pulse Ox 92 02/29/24 13:06 Oxygen Delivery Method Room Air 02/29/24 13:06 Tobacco/Smoking Status: Tobacco use Status Tobacco use date assessed 10/28/23 02/29/24 13:04 Patient Tobacco Use Status Never used Tobacco 02/29/24 13:04 e-Cigarette/Vaping Use Never Used 02/29/24 13:04 Thrive Assessment: Date of Thrive Assessment Date Thrive assessed 08/24/22 02/29/24 13:04 Const General: cooperative Orientation/consciousness: patient oriented x3 HENMT Other: right upper lateral orbital region with healing abrasion. Just inferior to right orbital (zygomatic region) with dermabonded laceration (surrounding ecchymosis), faint tannish drainage to inferior aspect of laceration. Resp Effort & Inspection: normal respiratory effort Auscultation: clear to auscultation bilaterally Cardio Rate: regular rate Rhythm: regular rhythm Heart sounds: S1 normal heart sound present and S2 normal heart sound present Back/Spine/Pelvis Other: full ROM (baseline) noted with extension and flexion of RLE, weight bearing with use of rolling walker (baseline) Neuro General: patient oriented x3 Extrem Other: right knee with healing abrasion, no signs of infection. small abrasion to anterior distal deshpande, no signs of infection. Psych Appearance: grossly normal Mental Status: mental status grossly normal Speech and movement: Normal speech and movement present Affect: normal affect Attitude: cooperative Thought process: Normal thought process present Thought content: Normal thought content present Insight: Good insight present (Psych) Judgement: Good judgement present (Psych) Assessment and Plan Assessment & Plan (1) Fall: Code(s): W19.XXXA - Unspecified fall, initial encounter Plan: continue PT (2) Open wound of face without complication: Code(s): S01.80XA - Unspecified open wound of other part of head, initial encounter Plan: antibiotic sent for faintly draining facial wound (3) Knee abrasion: Code(s): S80.219A - Abrasion, unspecified knee, initial encounter Plan: no signs of infection, healing. pt knows to keep free from debris Plan The patient agreed to the use of a medical manager for this encounter. Scribed for MARK Mattson by Karissa Rosas medical manager, on 02/29/2024 at 13:30 EST. Medications: New cephalexin 500 mg PO BID 10 days 20 caps 0RF Coding Level of Care Code Est Pt Level 3 (33371) Diagnoses Fall W19.XXXA Open wound of face without complication S01.80XA Knee abrasion S80.219A
[2024-02-29 13:06] VITALS: BP 110/70; PULSE 74; O2SAT 92
== END 2024-02-29 13:59 | disposition home or self-care (01) ==
PROVIDERS: PCP Nurse Practitioner Family; Visit Provider Nurse Practitioner Family
DX: S01.80XA Unspecified open wound of other part of head, initial encounter (principal); W19.XXXA Unspecified fall, initial encounter; S80.219A Abrasion, unspecified knee, initial encounter
CPT/HCPCS: 99213

== ENCOUNTER 2024-03-22 12:54 | Outpatient (AMB) | payer BC, SELFPAY ==
[2024-03-22 13:01] VITALS: BP 110/60; PULSE 64; O2SAT 99; BMI 29.6
--- NOTE | 2024-03-22 13:01 | A.OFFPC_ITS ---
Vital Signs 03/22/24 13:01 Height 5 ft 11 in Weight 212 lb BMI 29.6 BP 110/60 Blood Pressure Location Lt brachial Position Sitting Pulse 64 Pulse Source Pulse Oximeter Pulse Oximetry (%) 99 Oxygen Delivery Method Room Air Intake Visit Reasons: 1 month follow up Intake Note: Pt is here today for 1 month follow up visit. Allergies penicillamine Allergy (Unknown, Verified 03/22/24 13:04) unknown Tobacco use date assessed: 03/22/24 Dental Screening Dental Screen Date: 11/30/23 HPI 1 month follow up HPI Details Pt is a diabetic. A1C in office today is 6.0. Microalbumin is up to date. Denies polyuria, polydipsia, does report neuropathy. Pt denies any signs and symptoms of hypoglycemia and does know how to correct it. Pt is interested in a glucose sensor, will send. Pt reports that over the weekend he became very depressed and fatigued. He reports having no motivation or interest in doing things. He has a very poor appetite. Pt reports that nothing specific triggered this. He does read the news with depressing information frequently. Pt would not like to see a therapist or take medication. Denies any SI and HI. He also reports weakness and balance issues. Pt is going to PT twice a week. Will refer to OT for weakness of hands per pt's request. Because of dexterity issues, i will prescribe a sensor to check his sugars. He will contact me with how his depression is, next week, and i highly encouraged he stays off his news websites for quite sometime. 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 Vitamin D deficiency Cholecystectomy planned Osteoarthritis History of colon cancer CKD (chronic kidney disease) Sarcoidosis Partial nontraumatic amputation of right foot PVD (peripheral vascular disease) Diabetic retinopathy Spherocytosis Skin cancer Peripheral neuropathy Spinal stenosis Renal stones Pulmonary sarcoidosis Diabetes Surgical History History of ureter repair H/O splenectomy S/P ureteral reimplantation History of surgical removal of pilonidal cyst History of tonsillectomy and adenoidectomy H/O right hemicolectomy Status post laser lithotripsy of ureteral calculus Hx of cholecystectomy Hx of colonoscopy Family History Mother Thyroid cancer Other Mental health disorder Social History Household Members: Friend(s) Housing: House Are you a primary emergency care attendant to a significant other at home: No Do you presently have visiting nurse or other home services: No Alcohol intake: never Patient Tobacco Use Status: Never used Tobacco e-Cigarette/Vaping Use: Never Used Second Hand Smoke Exposure: No service: No Current occupational status: employed and retired Cognitive needs: No Hearing needs: No Vision needs: No Questionnaire PHQ-9 Over the last 2 weeks, how often have you been bothered by any of the following problems? 1. Little interest or pleasure in doing things: not at all 2. Feeling down, depressed, or hopeless: not at all 3. Trouble falling or staying asleep, or sleeping too much: not at all 4. Feeling tired or having little energy: not at all 5. Poor appetite or overeating: not at all 6. Feeling bad about yourself - or that you are a failure or have let yourself or your family down: not at all 7. Trouble concentrating on things, such as reading the newspaper or watching television: not at all 8. Moving or speaking so slowly that other people could have noticed. Or the opposite - being so fidgety or restless that you have been moving around a lot more than usual: not at all 9. Thoughts that you would be better off or of hurting yourself in some way: not at all Total score: 0 Depression Screening Interpretation: Negative Depression Screening Done: Yes Source: Developed by Drs. Ernesto Moscoso, Jodi Alvarado, Sam Deluna and colleagues, with an educational devon from [employer]. Thrive Questionnaire Date Thrive assessed: 03/22/24 I am a: Patient What is your living situation today?: I have a steady place to live Within the past 12 months, did the food you bought not last and you didn't have the money to get more?: Never true Within the past 12 months, did you worry whether your food would run out before you got money to buy more?: Never true Do you have trouble paying for medicines?: No Do you have trouble getting transportation to medical appointments?: No Do you have trouble paying your heating and electricity bill?: No Do you have trouble taking care of your child, family member or friend?: No Do you have trouble with day-to-day activities such as bathing, preparing meals, shopping, managing finances, etc.?: No Are you currently unemployed and looking for a job?: No Are you interested in more education?: No Please select the resources that you would like help with: None THRIVE Score: 0 CANDIS-7 AMB Questionnaire CANDIS-7 Date CANDIS - 7 assessed: 03/22/24 Feeling nervous, anxious, or on edge: 0 = Not at all Not being able to stop or control worryin = Not at all Worrying too much about different things: 0 = Not at all Trouble relaxin = Not at all Being so restless that it is hard to sit still: 0 = Not at all Becoming easily annoyed or irritable: 0 = Not at all Feeling afraid as if something awful might happen: 0 = Not at all Total CANDIS-7 score (0-4 normal; 5-9 mild; 10-14 moderate; 15-21 severe): 0 Source: Developed by Drs. Ernesto Moscoso, Jodi Alvarado, Sam Deluna and colleagues, with an educational devon from [employer]. Review of Systems Const Reports as per HPI Physical exam (Primary Care) Vital Signs: Last Vital Signs Pulse 64 03/22/24 13:01 BP 110/60 03/22/24 13:01 Pulse Ox 99 03/22/24 13:01 Oxygen Delivery Method Room Air 03/22/24 13:01 BMI result Body Mass Index 29.6 Tobacco/Smoking Status: Tobacco use Status Tobacco use date assessed 03/22/24 03/22/24 13:07 Patient Tobacco Use Status Never used Tobacco 03/22/24 13:07 e-Cigarette/Vaping Use Never Used 03/22/24 13:07 PHQ-9: PHQ-9 Score PHQ-9: Total score 0 03/22/24 13:58 Depression Screening Interpretation: Negative Thrive Assessment: Date of Thrive Assessment Date Thrive assessed 03/22/24 03/22/24 13:07 Const General: cooperative Orientation/consciousness: patient oriented x3 Limitations: ambulation with walker Resp Effort & Inspection: normal respiratory effort Auscultation: clear to auscultation bilaterally Cardio Rate: regular rate Rhythm: regular rhythm Heart sounds: S1 normal heart sound present and S2 normal heart sound present Neuro General: patient oriented x3 Extrem Other: weakness with bilat hand grasps, swelling to PIP joints Psych Appearance: grossly normal Mental Status: mental status grossly normal Speech and movement: Normal speech and movement present Affect: normal affect Attitude: cooperative Thought process: Normal thought process present Thought content: Normal thought content present Insight: Good insight present (Psych) Judgement: Good judgement present (Psych) Results AMB Hemoglobin A1c AMB Hemoglobin A1c 6.0 % Last Edit by EFE Dumont on 03/22/24 13:2 7 Results Reviewed Results Reviewed: Laboratory Last Values Hgb A1c (Clinic) 6.0 % (4.0-6.0) 03/22/24 13:16 Assessment and Plan Assessment & Plan (1) Weakness of both hands: Code(s): R29.898 - Other symptoms and signs involving the musculoskeletal system Plan: Referred to OT (2) Diabetes: Code(s): E11.9 - Type 2 diabetes mellitus without complications Plan: Sending sensor (3) Depression: Code(s): F32.A - Depression, unspecified Plan: Pt will contact me in 1 week with how he is doing Plan The patient agreed to the use of a remote medical coder for this encounter. Scribed for MARK Mattson by Karissa Rosas remote medical coder, on 03/22/2024 at 13:15 EST. Orders: Orders AMB Hemoglobin A1c Today Z13.9 - Encounter for screening, unspecified OT Evaluation and Treatment Today R29.898 - Other symptoms and signs involving the musculoskeletal system Coding Level of Care Code Est Pt Level 3 (37629) Diagnoses Weakness of both hands R29.898 Diabetes E11.9 Depression F32.A
== END 2024-03-22 13:50 | disposition home or self-care (01) ==
PROVIDERS: PCP Nurse Practitioner Family; Visit Provider Nurse Practitioner Family
DX: R29.898 Other symptoms and signs involving the musculoskeletal system (principal); E11.9 Type 2 diabetes mellitus without complications; F32.A Depression, unspecified
CPT/HCPCS: 83036; 99213

== ENCOUNTER 2024-03-23 20:28 | Emergency (ER) | payer BC, SELFPAY ==
--- NOTE | ~2024-03-23 | CT_ITS ---
EXAMINATION: CERVICAL SPINE CT WITHOUT CONTRAST CLINICAL INFORMATION: Fall. Head strike. COMPARISON: 02/27/2024 TECHNIQUE: Multidetector volumetric imaging was obtained through the cervical spine without intravenous contrast. Multiplanar reconstructed images in coronal and sagittal orientations were submitted. This CT examination was performed using dose optimization techniques as appropriate, variously including the following: *Automated exposure control *Adjustment of mA and/or kV according to patient size (this includes techniques or standardized protocols for targeted exams where dose is matched to indication/reason for exam; i.e. extremities or head) *Use of iterative reconstruction technique DOSE: 1161 mGy-cm FINDINGS: Vertebral body heights are normal. No fractures of the vertebral bodies or posterior elements. Vertebral alignment is normal. No subluxation. Degenerative changes are present at the craniocervical and atlantoaxial articulations, though normal alignment is maintained. There is ankylosis of C5 to C7 at the vertebral bodies. Moderate multilevel degenerative disc disease is present in the cervical spine at C3-C4 and C4-C5 with loss of vertebral disc height, endplate osteophytes, uncovertebral osteophytes, and vacuum phenomenon. Multilevel facet arthropathy, most notably at C3-C4 and C4-C5. Posterior disc osteophytic bulge and ligament flavum thickening at C3-C4 produces moderate to severe central canal stenosis at this level. Additional central canal stenosis is evident at C4-C5 due to disc bulge and ligamentum flavum thickening. More mild central canal narrowing at other levels. Multilevel neural foraminal encroachment is most notable at C3-C4 and C4-C5 bilaterally. No significant paravertebral soft tissue swelling. Atherosclerotic calcifications are present in the carotid arteries. There is skin thickening in the neck posteriorly with associated subcutaneous edema. Imaged portions of the lung apices are clear. CT/CT cervical spine wo IV con IMPRESSION: 1. No acute fracture or malalignment in the cervical spine. 2. Multilevel degenerative spondylosis in the cervical spine with central canal and neural foraminal stenoses, most notably at C3-C4 and C4-C5.
--- NOTE | ~2024-03-23 | CT_ITS ---
EXAMINATION: CT HEAD WITHOUT CONTRAST CLINICAL INFORMATION: Fall. Positive head strike. COMPARISON: CT head dated 02/27/2024. TECHNIQUE: Contiguous axial imaging was performed from the skull base to vertex without intravenous administration of contrast. This CT examination was performed using dose optimization techniques as appropriate, variously including the following: *Automated exposure control *Adjustment of mA and/or kV according to patient size (this includes techniques or standardized protocols for targeted exams where dose is matched to indication/reason for exam; i.e. extremities or head) *Use of iterative reconstruction technique DLP: 1161 mGy-cm FINDINGS: There is no acute intracranial hemorrhage. There is no evidence of acute/subacute cerebral or cerebellar infarction. There is moderate microvascular ischemic change. There is mild cerebral atrophy. There is no midline shift or mass effect. There is no extra-axial fluid collection. No hydrocephalus. The orbits are symmetric and within normal limits. The calvarium is intact. The paranasal sinuses are clear. The mastoid air cells are clear. CT/CT head/brain wo IV con IMPRESSION: No acute intracranial pathology. Moderate microvascular ischemic change. Mild cerebral atrophy.
--- NOTE | ~2024-03-23 | XR_ITS ---
EXAMINATION: XR LUMBOSACRAL SPINE CLINICAL INFORMATION: Fall. Pain. COMPARISON: CT abdomen pelvis dated 09/09/2023. TECHNIQUE: Three views of the lumbosacral spine. FINDINGS: There is stable, grade 1 anterolisthesis of L4 in relation to L5. There is stable, grade 1 retrolisthesis of L3 in relation to L4. These areas of listhesis are felt to be secondary to advanced facet arthropathy. Vertebral body heights are maintained. There is multilevel degenerative disc disease characterized by intervertebral disc space narrowing, endplate sclerosis and a large anterior osteophytes. There is severe facet arthropathy at L4-L5 and L5-S1. No definite acute fracture is identified. The sacroiliac joints appear maintained. There are surgical clips throughout the abdomen and pelvis. There is abundant stool throughout the visualized colon. XR/XR lumbar spine 2-3V IMPRESSION: No acute osseous lumbar spine abnormality. Moderate to severe degenerative disease of the spine as described.
--- NOTE | ~2024-03-23 | XR_ITS ---
EXAMINATION: XR SACRUM AND COCCYX CLINICAL INFORMATION: Fall. Pain. COMPARISON: None available. TECHNIQUE: 3 views of the sacrum and coccyx were obtained. FINDINGS: There is no fracture or dislocation. There are degenerative changes of the hip joints and symphysis pubis. There are surgical clips overlying the pelvis. XR/XR sacrum coccyx min 2V IMPRESSION: No fracture or dislocation.
--- NOTE | 2024-03-23 20:46 | ED_ITS ---
HPI - Fall General Chief Complaint: Fall Stated Complaint: fell backwards hit head,back and buttock pain Time Seen by Provider: 03/24/24 00:19 Source: patient Mode of arrival: ambulatory History of Present Illness ED Provider: Dr. Christal Vanessa HPI Narrative: Patient comes to the emergency room complaining of a contusion in the back of the head and coccyx area. Patient states that earlier today he was [place]. Patient states that he was holding onto his walker, took a few steps backwards, there were some bushes with root sticking out from the ground and patient fell backwards. Patient was able to get up by himself, did not lose consciousness, patient is not on blood thinners. Patient was able to get into his car and drive home. Patient states that he started looking up h ead injuries on the Internet, and therefore decided to come to the emergency room Related Data Home Medications ?Medication ?Instructions ?Recorded ?Confirmed zinc 50 mg capsule 50 mg PO DAILY 08/13/20 03/21/24 vitamin B complex 1 cap PO DAILY 10/14/20 03/21/24 turmeric 100 mg-steve 150 500 cap PO BID 09/03/21 03/21/24 mg-olive 50 mg-oreg 150 mg-capryl capsule berberine-herbal comb no.18 capsule 500 cap PO BID 12/31/22 03/21/24 resvertrol 06/01/23 03/21/24 ascorbate calcium (vitamin C) 500 1.5 g PO DAILY 07/07/23 03/21/24 mg tablet cholecalciferol (vitamin D3) 100 1,200 unit PO DAILY 09/27/23 03/21/24 mcg (4,000 unit) capsule magnesium chloride 64 mg 400 mg PO DAILY 02/03/24 03/21/24 (magnesium chloride) tablet latanoprost 0.005 % eye drops 1 drp ophthalmic (eye) QPM 03/21/24 03/21/24 blue-green algae (bulk) (Spirulina ea miscellaneous 03/22/24 powder) Previous Rx's ?Medication ?Instructions ?Recorded insulin NPH isoph U-100 human 100 30 unit (0.3 mL) subcut BID 90 08/24/22 unit/mL subcutaneous suspension days #60 mL (Humulin N NPH U-100 Insulin (isophane susp)) blood sugar diagnostic (Contour #100 ea 06/01/23 Test Strips) mupirocin 2 % topical ointment 1 appl topical BID 7 days #15 grams 11/20/23 insulin syringe-needle U-100 1 mL #200 ea 02/16/24 30 gauge x 1/2 (BD Insulin Syringe Ultra-Fine) acetaminophen 500 mg tablet 500 mg PO QID PRN fever or pain 03/24/24 #14 tabs ibuprofen 600 mg tablet 600 mg PO TID PRN fever or pain 03/24/24 #14 tabs Allergies Allergy/AdvReac Type Severity Reaction Status Date / Time penicillamine Allergy Unknown unknown Verified 03/23/24 20:49 Review of Systems Review of Systems: Constitutional : No Weight loss, No Fever, No Chills, No Night Sweats, No Fatigue, No Malaise ENT/Mouth : No Hearing loss, No Ear Pain, No Nasal Congestion, No Sinus Pain, No Hoarseness, No sore throat, No Rhinorrhea, No Swallowing Difficulty Eyes: No Eye Pain, No Swelling, No Redness, No Foreign Body, No Discharge, No Vision Changes Cardiovascular : No Chest Pain, No SOB, No Dyspnea on Exertion, No Orthopnea, No Edema, No Palpitations Respiratory : No Cough, No Sputum, No Wheezing, No Smoke Exposure, No Dyspnea Gastrointestinal : No Nausea, No Vomiting, No Diarrhea, No Constipation, No abdominal Pain, No Hematochezia, No Melena Genitourinary : no irregular bleeding, No Dysuria, No Urinary Frequency, No Hematuria, No Urinary Incontinence, No Urgency, No Flank Pain, No Urinary Flow Changes, No Hesitancy Musculoskeletal : Complaining of buttocks pain No Myalgias, No Joint Swelling Skin : No Skin Lesions, No rash, complaining of a small abrasion in the back of the head Neuro : No Weakness, No Numbness, No Paresthesias, No Loss of Consciousness, No Dizziness, No Headache Psych : No Anxiety/Panic, No Depression, No SI/HI/AH/VH, No Social Issues, Heme/Lymph: No Bruising, No Bleeding,No Lymphadenopathy Endocrine : No Polyuria, No Polydipsia, No Temperature Intolerance PMFSH Past Medical History Medical History 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 Vitamin D deficiency Cholecystectomy planned Osteoarthritis History of colon cancer CKD (chronic kidney disease) Sarcoidosis Partial nontraumatic amputation of right foot PVD (peripheral vascular disease) Diabetic retinopathy Spherocytosis Skin cancer Peripheral neuropathy Spinal stenosis Renal stones Pulmonary sarcoidosis Diabetes Surgical History History of ureter repair H/O splenectomy S/P ureteral reimplantation History of surgical removal of pilonidal cyst History of tonsillectomy and adenoidectomy H/O right hemicolectomy Status post laser lithotripsy of ureteral calculus Hx of cholecystectomy Hx of colonoscopy Family History Family History Mother Thyroid cancer Other Mental health disorder Social History Social History Household Members: Friend(s) Housing: House Are you a primary customer care representative to a significant other at home: No Do you presently have visiting nurse or other home services: No Alcohol intake: never Patient Tobacco Use Status: Never used Tobacco Smoked in Last 30 Days: No e-Cigarette/Vaping Use: Never Used Second Hand Smoke Exposure: No Advance Directives: No Advance Directives Information Provided: Yes Do you have a plan to hurt others: No Plan service: No Current occupational status: employed and retired Cognitive needs: No Hearing needs: No Vision needs: No Physical Exam Vital Signs: Vital Signs: Last Vital Signs Temp 97.7 F 03/23/24 23:32 Pulse 67 03/23/24 23:32 Resp 17 03/23/24 23:32 BP 119/67 03/23/24 23:32 Pulse Ox 96 03/23/24 23:32 O2 Del Method Room Air 03/23/24 23:32 BMI result Body Mass Index 29.6 Const: Other: Appearance: Alert. Oriented X3. No acute distress. Eyes: Pupils equal, round and reactive to light. ENT: Pharynx normal. Neck: Normal inspection. Neck supple. No lymph nodes noted. No crepitus CVS: Normal heart rate and rhythm. Pulses normal. Normal S1 and S2 Respiratory: No respiratory distress. Breath sounds normal. No Wheezing. No rales Abdomen: Soft and nontender. No rigidity. No distention. My: No pain to palpation in cervical/thoracic spine, no lumbar spine tenderness, only to the right side, right buttock Skin: Skin warm and dry. Normal skin color. Normal skin turgor. Small superficial abrasion to the scalp posteriorly, no stitches needed, no flaps Extremities: No lower extremity edema. No Lacerations. No Rash Neuro: Oriented X 3. No motor deficit. No sensory deficit. Moving all extremities. No slurred speech. CN 2 through 12 grossly intact Psych: calm, cooperative, normal affect Course Course Course Narrative: This is an RME: Additional HPI, ROS, PE not included below will be deferred to primary provider. RME assessment and note performed by: Seema Gaspar PA-C This is a 78-cwmi-lqk-male, with a hx of anxiety, who presents to the ER with a complaint of fall - complaining of head pain, neck pain, buttock pain and back pain s/p mechanical fall which occurred today at 7PM. Pt states that he was pushing backwards while on his walker and struck his head. No LOC. He is not on AC. Neurologically intact. Slight contusion noted to posterior scalp, no open wounds. Plan:CT head, cervical spine, and xray lumbar and coccyx Medications Administered Discontinued Medications Generic Name Dose Route Start Last Admin Trade Name Freq PRN Reason Stop Dose Admin Acetaminophen 650 mg 03/24/24 00:08 03/24/24 00:22 Acetaminophen 325 Mg Tablet PO 03/24/24 00:09 650 mg ONCE ONE Administration Ibuprofen 400 mg 03/24/24 00:13 03/24/24 00:22 Ibuprofen 400 Mg Tablet PO 03/24/24 00:14 400 mg ONCE ONE Administration Medical Decision Making Medical Decision Making [facility] Narrative: -my interpretation of CT scan of the head: No intracranial bleed -radiology report: No acute intracranial pathology, no acute fracture or malalignment of the cervical spine, x-ray of the sacrum and coccyx: No fracture or dislocation -patient ambulatory with help of his a walker at baseline. Differential Diagnosis Differential Diagnoses: The differential diagnosis associated with the presentation includes (Intracranial bleed, cervical fracture, coccyx fracture, contusion) Independent Interpretation I performed an independent interpretation of an: Plain X-Ray and CT Scan Radiology Impression Discussion of test interpretation with radiology: I have reviewed the radiologist's reading. Radiologist Impression: There is no fracture or dislocation. There are degenerative changes of the hip joints and symphysis pubis. There are surgical clips overlying the pelvis. XR/XR sacrum coccyx min 2V IMPRESSION: No fracture or dislocation. IMPRESSION: 1. No acute fracture or malalignment in the cervical spine. 2. Multilevel degenerative spondylosis in the cervical spine with central canal and neural foraminal stenoses, most notably at C3-C4 and C4-C5. IMPRESSION: No acute intracranial pathology. Moderate microvascular ischemic change. Mild cerebral atrophy. Discharge Plan Discharge Clinical Impression: Contusion of head, Contusion of lower back Patient Disposition: Home, Self-Care Instructions: Contusion in Adults (ED) Additional Instructions: Please follow-up with your primary care physician tomorrow. If you have any worsening or new symptoms, please return to the emergency room or call 911 Prescriptions: New ibuprofen 600 mg tablet 600 mg PO TID PRN (Reason: fever or pain) Qty: 14 0RF acetaminophen 500 mg tablet 500 mg PO QID PRN (Reason: fever or pain) Qty: 14 0RF No Action (DME) insulin syringe-needle U-100 [BD Insulin Syringe Ultra-Fine] 1 mL 30 gauge x 1/2 syringe See Rx Instructions .Route Qty: 200 3RF Rx Instructions: Use to inject insulin twice per day vitamin B complex Capsule 1 cap PO DAILY latanoprost 0.005 % drops 1 drp ophthalmic (eye) QPM zinc 50 mg Capsule 50 mg PO DAILY mupirocin 2 % ointment 1 appl topical BID 7 Days Qty: 15 0RF xddfpzeh-ofam-rdynv-oreg-capry 100 mg-150 mg- 50 mg-150 mg capsule 500 cap PO BID cholecalciferol (vitamin D3) 100 mcg (4,000 unit) capsule 1,200 unit PO DAILY berberine-herbal comb no.18 Capsule 500 cap PO BID Spirulina Powder miscellaneous ascorbate calcium (vitamin C) 500 mg tablet 1.5 g PO DAILY Humulin N NPH U-100 Insulin 100 unit/mL suspension 30 unit subcut BID 90 Days Qty: 60 3RF magnesium chloride 64 mg magnesium tablet 400 mg PO DAILY (DME) resvertrol 0 .Route .MEDSUPPLY (DME) Contour Test Strips Strip See Rx Instructions .Route Qty: 100 3RF Rx Instructions: 5 times a day Print Language: Malay
[2024-03-23 20:48] VITALS: BP 119/61; PULSE 85; RESP 16; TEMP 36.8; O2SAT 97; BMI 29.6
[2024-03-23 23:32] VITALS: BP 119/67; PULSE 67; RESP 17; TEMP 36.5; O2SAT 96
[2024-03-24] VITALS: BP 129/66; PULSE 76; RESP 17; TEMP 36.4; O2SAT 97
[2024-03-24] MEDS: Ibuprofen 400 MG TABLET PO (00:22)
[2024-03-24] MEDS: Acetaminophen 325 MG TABLET 650 MG PO (00:22)
[2024-03-24 00:36] VITALS: BP 129/66; PULSE 76; RESP 17; TEMP 36.4; O2SAT 97
== END 2024-03-24 00:42 | disposition home or self-care (01) ==
PROVIDERS: Emergency Provider Emergency Medicine; PCP Nurse Practitioner Family
DX: S00.03XA Contusion of scalp, initial encounter (principal); S30.0XXA Contusion of lower back and pelvis, initial encounter; E11.22 Type 2 diabetes mellitus with diabetic chronic kidney disease; N18.9 Chronic kidney disease, unspecified; W18.30XA Fall on same level, unspecified, initial encounter; Y93.9 Activity, unspecified; Y92.830 Public park as the place of occurrence of the external cause; Y99.9 Unspecified external cause status
CPT/HCPCS: 70450; 72100; 72125; 72220; 99284

== ENCOUNTER 2024-04-20 15:00 | Outpatient (RCR) | payer BC, SELFPAY ==
--- NOTE | 2024-04-06 16:24 | MHC.OT.EP ---
[address] [phone] Occupational Therapy Plan of Care Patient Name: Casey Sewell Jr Date of Evaluation: 04/06/24 Diagnosis: Bilateral hand neuropathy Pain Location: Denies UE pain. Pain Score: 0 Pain Scale Used: Numeric (0 - 10) Aggravating Factors: Alleviating Factors: Assessment: Casey is a 78 yo male with a long complicated medical history including Diabetic neuropathies, OA and dependence on a walker for balance. He reports he is receiving PT services at [facility] for LE and shoulder strengthening and wants OT for hand strengthening Today he presents with loss of protective sensation on the right hand D1-5 and impaired protective sensation on the left hand D1-5 and bilateral hand weakness , with the left non dominant hand slightly stronger than the right hand Casey will benefit from OT for hand strengthening and education on compensation for hand weakness and sensation impairment Frequency and Duration: The patient will be seen 1x wk x 4 wks Short Term Goals: Demonstrate compliance with HEP for hand strengthening Demonstrate awareness of joint and skin protection for impaired sensation Demonstrate awareness of AD for joint protection and ease with daily activities Right color technician increase to 40 lb Personal Security Specialist Goals: Same as above Treatment Plan: Therapeutic Exercise Therapeutic Activity Home Exercise Program Patient Education ADL Training Electronically Signed By: Ban Childers OT CHT CLT Please Sign and return to therapist. Thank you once again for your referral.
== END 2024-05-08 16:28 | disposition home or self-care (01) ==
LOC: HO.OT 15:00
PROVIDERS: PCP Nurse Practitioner Family; Visit Provider Nurse Practitioner Family
DX: E11.40 Type 2 diabetes mellitus with diabetic neuropathy, unspecified (principal)
CPT/HCPCS: 97110; 97166

== ENCOUNTER 2024-04-26 12:54 | Outpatient (AMB) | payer BC, SELFPAY ==
--- NOTE | 2024-04-26 12:57 | MHC.PC.OV ---
Vital Signs 04/26/24 13:03 Height 5 ft 11 in Weight 213 lb BMI 29.7 BP 108/64 Blood Pressure Location Lt brachial Position Sitting Pulse 90 Pulse Source Pulse Oximeter Pulse Oximetry (%) 98 Oxygen Delivery Method Room Air Intake Visit Reasons: 1 month follow up Allergies penicillamine Allergy (Unknown, Verified 04/26/24 13:03) unknown Tobacco use date assessed: 03/22/24 Fall risk assessment: 1 Fall in past year Last assessed Fall Risk: 04/26/24 Dental Screening Dental Screen Date: 11/30/23 HPI 1 month follow up HPI Details Pt reports fatigue, depression, and having little motivation. He has been drinking mushroom coffee, seems to be working well. Insomnia: Encouraged pt to adhere to a regular sleep/wake schedule. Pt reports that he will be starting work on June 13 and will be able to regulate his sleep better. Pt does spend a lot of time educating himself on current events which I believe contributes to his sleep issues (mind racing). Denies fever, chills, and dizziness. 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 Vitamin D deficiency Cholecystectomy planned Osteoarthritis History of colon cancer CKD (chronic kidney disease) Sarcoidosis Partial nontraumatic amputation of right foot PVD (peripheral vascular disease) Diabetic retinopathy Spherocytosis Skin cancer Peripheral neuropathy Spinal stenosis Renal stones Pulmonary sarcoidosis Diabetes Surgical History History of ureter repair H/O splenectomy S/P ureteral reimplantation History of surgical removal of pilonidal cyst History of tonsillectomy and adenoidectomy H/O right hemicolectomy Status post laser lithotripsy of ureteral calculus Hx of cholecystectomy Hx of colonoscopy Family History Mother Thyroid cancer Other Mental health disorder Social History Household Members: Friend(s) Housing: House Are you a primary hiv/aids care nurse to a significant other at home: No Do you presently have visiting nurse or other home services: No Alcohol intake: never Patient Tobacco Use Status: Never used Tobacco e-Cigarette/Vaping Use: Never Used Second Hand Smoke Exposure: No service: No Current occupational status: employed and retired Cognitive needs: No Hearing needs: No Vision needs: No Questionnaire Thrive Questionnaire Date Thrive assessed: 03/22/24 CANDIS-7 AMB Questionnaire CANDIS-7 Date CANDIS - 7 assessed: 03/22/24 Source: Developed by Drs. Ernesto Moscoso, Jodi Alvarado, Sam Deluna and colleagues, with an educational devon from [employer]. Review of Systems Const Reports as per HPI Physical exam (Primary Care) Vital Signs: Last Vital Signs Pulse 90 04/26/24 13:03 BP 108/64 04/26/24 13:03 Pulse Ox 98 04/26/24 13:03 Oxygen Delivery Method Room Air 04/26/24 13:03 BMI result Body Mass Index 29.7 Tobacco/Smoking Status: Tobacco use Status Tobacco use date assessed 03/22/24 04/26/24 12:57 Patient Tobacco Use Status Never used Tobacco 04/26/24 12:57 e-Cigarette/Vaping Use Never Used 04/26/24 12:57 Thrive Assessment: Date of Thrive Assessment Date Thrive assessed 03/22/24 04/26/24 12:57 Const Other: uses walker (rolling) General: cooperative Orientation/consciousness: patient oriented x3 Resp Effort & Inspection: normal respiratory effort Auscultation: clear to auscultation bilaterally Cardio Rate: regular rate Rhythm: regular rhythm Heart sounds: S1 normal heart sound present and S2 normal heart sound present Neuro General: patient oriented x3 Psych Appearance: grossly normal Mental Status: mental status grossly normal Speech and movement: Normal speech and movement present Affect: normal affect Attitude: cooperative Thought process: Normal thought process present Thought content: Normal thought content present Insight: Good insight present (Psych) Judgement: Good judgement present (Psych) Assessment and Plan Assessment & Plan (1) Insomnia: Code(s): G47.00 - Insomnia, unspecified Plan: recommend better sleep habits, going to bed at a certain time and waking up a certain time, everyday. Plan The patient agreed to the use of a vice president medical affairs for this encounter. Scribed for MARK Mattson by Karissa Rosas vice president medical affairs, on 04/26/2024 at 13:30 EST. Medications: Refilled blood-glucose sensor ([employer]Style Nilsa 3 Sensor device) Test blood sugar 4 times per day 6 ea 1RF E11.8 - Type 2 diabetes mellitus with unspecified complications Coding Level of Care Code Est Pt Level 3 (85686) Diagnoses Insomnia G47.00
[2024-04-26 13:03] VITALS: BP 108/64; PULSE 90; O2SAT 98; BMI 29.7
== END 2024-04-26 15:58 | disposition home or self-care (01) ==
PROVIDERS: PCP Nurse Practitioner Family; Visit Provider Nurse Practitioner Family
DX: G47.00 Insomnia, unspecified (principal)
CPT/HCPCS: 99213

== ENCOUNTER 2024-05-23 14:14 | Outpatient (AMB) | payer BC, SELFPAY ==
--- NOTE | 2024-05-23 14:26 | MHC.PC.OV ---
Vital Signs 05/23/24 14:29 Height 5 ft 11 in Weight 216 lb BMI 30.1 BP 112/70 Blood Pressure Location Rt brachial Position Sitting Pulse 93 Pulse Source Pulse Oximeter Pulse Oximetry (%) 98 Oxygen Delivery Method Room Air Intake Visit Reasons: 1M F/U Intake Note: patient is here for 1 month follow up Sew On Operator Required: No Accompanied by: Self / Same As Patient Allergies penicillamine Allergy (Unknown, Verified 05/23/24 14:29) unknown Tobacco use date assessed: 03/22/24 Fall risk assessment: No Falls in past year Last assessed Fall Risk: 05/23/24 Dental Screening Dental Screen Date: 11/30/23 HPI 1M F/U HPI Details Pt reports chemical sensitivities, no motivation, depression, fatigue. He has been struggling especially outside with movement, or just being outside in general (has been quite warm outside and excessively humid) though pt tends to lean towards chemical sensitivities . Pt reports feeling an anesthetic effect when he is outside. Pt also reports ongoing weakness of his hands. Pt also has increased peripheral neuropathy. He would not like EMG testing. Will refer to physiatry. Pt is requesting STD testing, though denies any symptoms. Will order. Denies fever, chills, and dizziness. Pt is very sedentary which could be contributing to his symptoms. 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 Vitamin D deficiency Cholecystectomy planned Osteoarthritis History of colon cancer CKD (chronic kidney disease) Sarcoidosis Partial nontraumatic amputation of right foot PVD (peripheral vascular disease) Diabetic retinopathy Spherocytosis Skin cancer Peripheral neuropathy Spinal stenosis Renal stones Pulmonary sarcoidosis Diabetes Surgical History History of ureter repair H/O splenectomy S/P ureteral reimplantation History of surgical removal of pilonidal cyst History of tonsillectomy and adenoidectomy H/O right hemicolectomy Status post laser lithotripsy of ureteral calculus Hx of cholecystectomy Hx of colonoscopy Family History Mother Thyroid cancer Other Mental health disorder Social History Household Members: Friend(s) Housing: House Are you a primary attending ambulatory care to a significant other at home: No Do you presently have visiting nurse or other home services: No Alcohol intake: never Patient Tobacco Use Status: Never used Tobacco e-Cigarette/Vaping Use: Never Used Second Hand Smoke Exposure: No service: No Current occupational status: employed and retired Cognitive needs: No Hearing needs: No Vision needs: No Questionnaire Thrive Questionnaire Date Thrive assessed: 03/22/24 CANDIS-7 AMB Questionnaire CANDIS-7 Date CANDIS - 7 assessed: 03/22/24 Source: Developed by Drs. Ernesto Moscoso, Jodi Alvarado, Sam Deluna and colleagues, with an educational devon from [employer]. Review of Systems Const Reports as per HPI Physical exam (Primary Care) Vital Signs: Last Vital Signs Pulse 93 05/23/24 14:29 BP 112/70 05/23/24 14:29 Pulse Ox 98 05/23/24 14:29 Oxygen Delivery Method Room Air 05/23/24 14:29 BMI result Body Mass Index 30.1 Tobacco/Smoking Status: Tobacco use Status Tobacco use date assessed 03/22/24 05/23/24 14:27 Patient Tobacco Use Status Never used Tobacco 05/23/24 14:27 e-Cigarette/Vaping Use Never Used 05/23/24 14:27 Thrive Assessment: Date of Thrive Assessment Date Thrive assessed 03/22/24 05/23/24 14:27 Const Other: walker used General: cooperative Orientation/consciousness: patient oriented x3 Resp Effort & Inspection: normal respiratory effort Auscultation: clear to auscultation bilaterally Cardio Rate: regular rate Rhythm: regular rhythm Heart sounds: S1 normal heart sound present and S2 normal heart sound present Neuro General: patient oriented x3 Cranial nerves: Yes CN's II-XII intact bilaterally Extrem Other: right foot 2 toes amputated, no sensation with use of monofilament, otherwise feet intact Psych Appearance: grossly normal Mental Status: mental status grossly normal Speech and movement: Normal speech and movement present Affect: normal affect Attitude: cooperative Thought process: Normal thought process present Thought content: Normal thought content present Insight: Good insight present (Psych) Judgement: Good judgement present (Psych) Assessment and Plan Assessment & Plan (1) Diabetic neuropathy: Code(s): E11.40 - Type 2 diabetes mellitus with diabetic neuropathy, unspecified Plan: referring to analysis evaluator (2) Weakness of both lower extremities: Code(s): R29.898 - Other symptoms and signs involving the musculoskeletal system (3) Peripheral neuropathy: Code(s): G62.9 - Polyneuropathy, unspecified Plan: labs ordered (4) STD (sexually transmitted disease): Code(s): A64 - Unspecified sexually transmitted disease Plan: labs ordered (5) Peripheral neuropathy: Code(s): G62.9 - Polyneuropathy, unspecified Plan The patient agreed to the use of a medical operations supervisor for this encounter. Scribed for YOMI Mattson-BC by Karissa Rosas medical operations supervisor, on 05/23/2024 at 14:45 EST. Orders: Orders UA CC w/rflx Micro + Cult Today G62.9 - Polyneuropathy, unspecified Lipid Panel Today G62.9 - Polyneuropathy, unspecified CT NG by PCR Today A64 - Unspecified sexually transmitted disease Vitamin B12 and Folate Today G62.9 - Polyneuropathy, unspecified Complete Blood Count Auto Diff Today G62.9 - Polyneuropathy, unspecified TSH reflex Free T4 Today G62.9 - Polyneuropathy, unspecified Comprehensive Brooks. Panel Fast Today G62.9 - Polyneuropathy, unspecified Vitamin B6 Today G62.9 - Polyneuropathy, unspecified Syphilis Screen Today A64 - Unspecified sexually transmitted disease HIV Ab/Ag Today A64 - Unspecified sexually transmitted disease Hepatitis A,B,C Profile Today A64 - Unspecified sexually transmitted disease Referrals Physiatry Referral E11.40 - Type 2 diabetes mellitus with diabetic neuropathy, unspecified, R29.898 - Other symptoms and signs involving the musculoskeletal system Coding Level of Care Code Est Pt Level 4 (70146) Diagnoses Diabetic neuropathy E11.40 Weakness of both lower extremities R29.898 Peripheral neuropathy G62.9 STD (sexually transmitted disease) A64
[2024-05-23 14:29] VITALS: BP 112/70; PULSE 93; O2SAT 98; BMI 30.1
== END 2024-05-23 15:37 | disposition home or self-care (01) ==
PROVIDERS: PCP Nurse Practitioner Family; Visit Provider Nurse Practitioner Family
DX: E11.40 Type 2 diabetes mellitus with diabetic neuropathy, unspecified (principal); R29.898 Other symptoms and signs involving the musculoskeletal system; G62.9 Polyneuropathy, unspecified; A64 Unspecified sexually transmitted disease
CPT/HCPCS: 99214

== ENCOUNTER 2024-06-01 11:59 | Outpatient (REF) | payer BC, SELFPAY ==
[2024-06-01 13:21] LABS: MANUAL DIFF FLAG NO
[2024-06-01 13:30] LABS: Basophils Absolute Auto 0.1 X10*3/uL (0.0-0.2); Basophils Percent Auto 1.1 % (0-2); Eosinophils Absolute Auto 0.2 X10*3/uL (0.0-0.4); Eosinophils Percent Auto 2.3 % (0-4); Hematocrit 41.7 % (42.0-52.0); Hemoglobin 15.1 g/dl (14.0-18.0); Imm Gran Abs Auto 0.03 X10*3/uL (0.00-0.03); Imm Gran Pct Auto 0.4 % (0.0-0.4); Lymphocytes Absolute Auto 2.6 X10*3/uL (1.2-4.9); Lymphocytes Percent Auto 31.3 % (20-40); Mean Corpuscular HGB Conc 36.2 g/dl (31.0-36.0); Mean Corpuscular Hemoglobin 31.5 pg (27.0-33.0); Mean Corpuscular Volume 86.9 fL (80.0-98.0); Mean Platelet Volume 11.1 fL (9.4-12.4); Monocytes Absolute Auto 0.8 X10*3/uL (0.1-1.2); Monocytes Percent Auto 10.1 % (2-11); Neutrophils Absolute Auto 4.5 x10*3/uL (2.0-8.3); Neutrophils Percent Auto 54.8 % (45-73); Platelet Count 389 X10*3/uL (160-400); Red Cell Distribution Width 12.4 % (11.0-16.0); White Blood Count 8.2 X10*3/uL (4.8-10.8)
[2024-06-01 14:00] LABS: Syphilis Screen Nonreactive (Nonreactive)
[2024-06-01 14:22] LABS: Folate 13.5 ng/mL (> or = 4.0); Vitamin B12 1064 pg/mL (200-900)
[2024-06-01 14:23] LABS: Alanine Aminotransferase 17 U/L (0-40); Alkaline Phosphatase 79 U/L (39-117); Anion Gap 16 (12-20); Aspartate Amino Transferase 24 U/L (5-37); Bilirubin Total 1.8 mg/dL (0.0-1.0); Blood Urea Nitrogen 19 mg/dL (9-16); Calcium 10.3 mg/dL (8.4-10.2); Carbon Dioxide 24 mmol/L (22-29); Chloride 103 mmol/L (96-108); Cholesterol 153 mg/dL (<200); Estimated Glomerular Filt Rate > 60; Glucose Fasting 123 mg/dL (60-99); HDL Cholesterol 41 mg/dL (>40); LDL Cholesterol Calculated 95 mg/dL (<100); Potassium 3.7 mmol/L (3.3-5.1); Sodium 139 mmol/L (135-145); Total Protein 7.5 g/dL (6.5-8.0); Triglycerides 88 mg/dL (<150)
[2024-06-01 14:41] LABS: TSH reflex Free T4 1.75 uIU/mL (0.32-4.0)
[2024-06-02 08:14] LABS: HBS Num1 0.49 mIU/mL (0-7.99); HBc Num1 0.15 S/CO (0.00-0.79); HIV AB/AG Nonreactive (Nonreactive); HIV Num 1 0.05 S/CO (0.00-0.99); Hepatitis A Antibody IgM 0.16 Index (0-0.79); Hepatitis B Core Antibody Nonreactive (Nonreactive); Hepatitis B Surface Antigen Negative (Negative); ~Hepatitis A Antibody IgM Nonreactive (Nonreactive); ~Hepatitis B Surface Antibody NONREACTIVE (Nonreactive); ~Hepatitis C Antibody Nonreactive (Nonreactive)
[2024-06-14 15:24] LABS: Vitamin B6 27.2 ng/mL (2.1-21.7)
== END 2024-06-01 12:00 | disposition home or self-care (01) ==
LOC: HO.HMGCLDS 11:59
PROVIDERS: PCP Nurse Practitioner Family; Visit Provider Nurse Practitioner Family
DX: G62.9 Polyneuropathy, unspecified (principal); A64 Unspecified sexually transmitted disease; R53.1 Weakness
CPT/HCPCS: 36415; 80053; 80061; 82306; 82607; 82746; 84207; 84443; 85025; 86704; 86706; 86709; 86780; 86803; 87340; 87389

== ENCOUNTER 2024-06-18 11:06 | Outpatient (REF) | payer BC, SELFPAY | END 2024-06-18 11:07 | disposition home or self-care (01) | LOC: HO.MRI 11:06 | PROVIDERS: PCP Nurse Practitioner Family; Visit Provider Nurse Practitioner Family | DX: Z13.89 Encounter for screening for other disorder (principal) ==

== ENCOUNTER 2024-06-21 15:16 | Outpatient (AMB) | payer BC, SELFPAY ==
[2024-06-21 15:22] VITALS: BP 102/66; PULSE 80; O2SAT 96; BMI 30.3
--- NOTE | 2024-06-21 15:22 | A.OFFPC_ITS ---
Vital Signs 06/21/24 15:22 Height 5 ft 11 in Weight 217 lb BMI 30.3 BP 102/66 Blood Pressure Location Rt brachial Position Sitting Pulse 80 Pulse Source Pulse Oximeter Pulse Oximetry (%) 96 Intake Visit Reasons: 1M F/U Intake Note: pt is here for 1 month follow up Manager Of Exhibitions And Collections Required: No Accompanied by: Self / Same As Patient Allergies penicillamine Allergy (Unknown, Verified 06/21/24 17:03) unknown Medication List - Last Reconciled 06/21/24 by YOMI Morelos-ARIK alpha lipoic acid 200 mg PO BID ascorbate calcium (vitamin C) 1.5 grams PO DAILY berberine-herbal comb no.18 500 caps PO BID blood sugar diagnostic (Contour Test Strips) 5 times a day blood-glucose sensor (FreeStyle Nilsa 3 Sensor device) Test blood sugar 4 times per day blue-green algae (bulk) (Spirulina powder) ea miscellaneous cholecalciferol (vitamin D3) 1,200 units PO DAILY insulin NPH isoph U-100 human (Humulin N NPH U-100 Insulin (isophane susp)) 30 units (0.3 mL) subcut BID 90 days insulin syringe-needle U-100 (BD Insulin Syringe Ultra-Fine) Use to inject ins ulin twice per day ketoconazole 2% 1 appl topical DAILY 14 days latanoprost 0.005% 1 drp ophthalmic (eye) QPM levocarnitine HCl (bulk) (Wqghqp-F-Hpnjfequg powder) ea miscellaneous magnesium chloride 400 mg PO DAILY mecobalamin (vitamin B12) mcg PO mupirocin 2% 1 appl topical BID 7 days [resvertrol ] aacxjvzi-jglm-iygrq-oreg-capry 100 mg-150 mg- 50 mg-150 mg 500 caps PO BID vitamin B complex 1 cap PO DAILY zinc 50 mg PO DAILY Tobacco use date assessed: 03/22/24 Fall risk assessment: No Falls in past year Last assessed Fall Risk: 06/21/24 Dental Screening Dental Screen Date: 11/30/23 HPI 1M F/U HPI Details Pt is a diabetic. A1C in office today is 5.5. Due for microalbumin. Denies polyuria, polydipsia, does report neuropathy. Pt denies any signs and symptoms of hypoglycemia and does know how to correct it. 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 Weakness reported related to air quality and [place]. Reporting fatigue, especially lower extremities, reports going to PT (previously), doing well, until i go outside. Weakness, at baseline, to BLE, uses walker. There is some underlying depression. Denies any si or hi. A lot has to do with not working so much this semester (works at local [employer]). Though this should start picking up again in Jul, which he seems to be looking forward to. I also look forward to seeing him get out of the house more, and how he responds, he tends to feel that the air quality should be better by this time as well. 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 Vitamin D deficiency Cholecystectomy planned Osteoarthritis History of colon cancer CKD (chronic kidney disease) Sarcoidosis Partial nontraumatic amputation of right foot PVD (peripheral vascular disease) Diabetic retinopathy Spherocytosis Skin cancer Peripheral neuropathy Spinal stenosis Renal stones Pulmonary sarcoidosis Diabetes Surgical History History of ureter repair H/O splenectomy S/P ureteral reimplantation History of surgical removal of pilonidal cyst History of tonsillectomy and adenoidectomy H/O right hemicolectomy Status post laser lithotripsy of ureteral calculus Hx of cholecystectomy Hx of colonoscopy Family History Mother Thyroid cancer Other Mental health disorder Social History Household Members: Friend(s) Housing: House Are you a primary career manager to a significant other at home: No Do you presently have visiting nurse or other home services: No Alcohol intake: never Patient Tobacco Use Status: Never used Tobacco e-Cigarette/Vaping Use: Never Used Second Hand Smoke Exposure: No service: No Current occupational status: employed and retired Cognitive needs: No Hearing needs: No Vision needs: No Questionnaire Thrive Questionnaire Date Thrive assessed: 03/22/24 AUDIT C Alcohol Use Questionnaire (AUDIT-C) 1. How often do you have a drink containing alcohol?: Never Total Score: 0 Score Reviewed/Action Taken: Yes CANDIS-7 AMB Questionnaire CANDIS-7 Date CANDIS - 7 assessed: 03/22/24 Source: Developed by Drs. Ernesto Moscoso, Jodi Alvarado, Sam Deluna and colleagues, with an educational devon from [employer]. Review of Systems Const Reports as per HPI Physical exam (Primary Care) Vital Signs: Last Vital Signs Pulse 80 06/21/24 15:22 BP 102/66 06/21/24 15:22 Pulse Ox 96 06/21/24 15:22 BMI result Body Mass Index 30.3 Tobacco/Smoking Status: Tobacco use Status Tobacco use date assessed 03/22/24 06/21/24 15:23 Patient Tobacco Use Status Never used Tobacco 06/21/24 15:23 e-Cigarette/Vaping Use Never Used 06/21/24 15:23 Thrive Assessment: Date of Thrive Assessment Date Thrive assessed 03/22/24 06/21/24 15:23 Const Other: Uses a walker General: cooperative Orientation/consciousness: patient oriented x3 Resp Effort & Inspection: normal respiratory effort Auscultation: clear to auscultation bilaterally Cardio Rate: regular rate Rhythm: regular rhythm Heart sounds: S1 normal heart sound present and S2 normal heart sound present Neuro General: patient oriented x3 Extrem Other: bilat feet: no sensation with use of monofilament (baseline), left second toe (dorsal aspect), with small abrasion, no active signs of infection Psych Appearance: grossly normal Mental Status: mental status grossly normal Speech and movement: Normal speech and movement present Affect: normal affect Attitude: cooperative Thought process: Normal thought process present Thought content: Normal thought content present Insight: Good insight present (Psych) Judgement: Good judgement present (Psych) Assessment and Plan Assessment & Plan (1) Peripheral neuropathy: Code(s): G62.9 - Polyneuropathy, unspecified Plan: at baseline. Encouraged pt to try to get out of the house more. Pt has been to PT several times. May consider a physiatry referral in the future. (2) Depression: Code(s): F32.A - Depression, unspecified Plan: does not want meds for this, and hopes to be less depressed once work picks up again late next month. Will cont to monitor, denies any SI or HI Plan The patient agreed to the use of a medical records specialist for this encounter. Scribed for YOMI Mattson- by Karissa Rosas medical records specialist, on 06/21/2024 at 15:35 EST. Orders: Orders AMB Hemoglobin A1c Today Z13.9 - Encounter for screening, unspecified Coding Level of Care Code Est Pt Level 3 (05595) Diagnoses Peripheral neuropathy G62.9 Depression F32.A
== END 2024-06-21 16:26 | disposition home or self-care (01) ==
PROVIDERS: PCP Nurse Practitioner Family; Visit Provider Nurse Practitioner Family
DX: E11.9 Type 2 diabetes mellitus without complications (principal)
CPT/HCPCS: 83036; 99213

== ENCOUNTER 2024-06-28 11:34 | Outpatient (AMB) | payer BC, SELFPAY ==
--- NOTE | 2024-06-28 11:39 | MHC.OFFVIS ---
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 Hx of Type 2 DM. Pt states he has this everyday. Pt states he does use a walker to help with balance. Pt has been doing at home PT excercises which he states sometimes helps. Allergies penicillamine Allergy (Unknown, Verified 06/28/24 11:39) unknown Medication List - Last Reconciled 06/28/24 by Shobha Lai MD alpha lipoic acid 200 mg PO BID ascorbate calcium (vitamin C) 1.5 grams PO DAILY berberine-herbal comb no.18 500 caps PO BID blood sugar diagnostic (Contour Test Strips) 5 times a day blood-glucose sensor (SlapVidStyle Nilsa 3 Sensor device) Test blood sugar 4 times per day blue-green algae (bulk) (Spirulina powder) ea miscellaneous cholecalciferol (vitamin D3) 1,200 units PO DAILY insulin NPH isoph U-100 human (Humulin N NPH U-100 Insulin (isophane susp)) 30 units (0.3 mL) subcut BID 90 days insulin syringe-needle U-100 (BD Insulin Syringe Ultra-Fine) Use to inject insulin twice per day ketoconazole 2% 1 appl topical DAILY 14 days latanoprost 0.005% 1 drp ophthalmic (eye) QPM levocarnitine HCl (bulk) (Slldyf-T-Tutvqapem powder) ea miscellaneous magnesium chloride 400 mg PO DAILY mecobalamin (vitamin B12) mcg PO mupirocin 2% 1 appl topical BID 7 days [resvertrol ] vitamin B complex 1 cap PO DAILY zinc 50 mg PO DAILY HPI Comments Details: Diagnosed DM since 37yo. Started having feet numbness 20 [address] ago[address] Had [address] Park in the past, was having leg weakness and numbness, poor balance, at that time. Told to have neuropathy at that time. Medication was not prescribed and he denies pain. Feet/legs are numb therefore no pain. He does mention other pains like shoulder and lower back. Left foot drop. He is able to distinguish neuropathy from claudication, and it has been stocking glove distribution, more so last 6 months. Last HbA1c is 5.5. Still independent with ADLs. Uses walker. Occasional fall, last 1 month. Attributes falls to left foot drop. Partial amputaton on right foot, 2001. No amputation or infection since then. Tried different orthotics for right foot. Now uses closed [place], and notes right big toe rubs on the inside. Still has AFO for the right side and considering going back to wearing those. No brace for left foot. He follows podiatry, Dr. Kelley, every 3 months. He also mentions getting COVID infection 2 years ago and suffering post COVID symptoms of weakness and brain fog. 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 Vitamin D deficiency Cholecystectomy planned Osteoarthritis History of colon cancer CKD (chronic kidney disease) Sarcoidosis Partial nontraumatic amputation of right foot PVD (peripheral vascular disease) Diabetic retinopathy Spherocytosis Skin cancer Peripheral neuropathy Spinal stenosis Renal stones Pulmonary sarcoidosis Diabetes Surgical History (Updated 06/28/24 @ 12:09 by Shobha Lai MD) History of amputation of foot History of ureter repair H/O splenectomy S/P ureteral reimplantation History of surgical removal of pilonidal cyst History of tonsillectomy and adenoidectomy H/O right hemicolectomy Status post laser lithotripsy of ureteral calculus Hx of cholecystectomy Hx of colonoscopy Family History Mother Thyroid cancer Other Mental health disorder Social History Household Members: Friend(s) Housing: House Are you a primary child care team lead to a significant other at home: No Do you presently have visiting nurse or other home services: No Alcohol intake: never Patient Tobacco Use Status: Never used Tobacco e-Cigarette/Vaping Use: Never Used Second Hand Smoke Exposure: No service: No Current occupational status: employed and retired Cognitive needs: No Hearing needs: No Vision needs: No Review of Systems Const All systems reviewed & are unremarkable except as noted in HPI and below Physical Exam Constitutional: Patient appears to be in no acute distress, well nourished and well developed. Patient was appropriately conversant and oriented. Good historian. MSK: Left footdrop, less than full range of motion but able to resist slightly. Did not visualize right foot amputation. Patient wearing shoe. Knee extension 4 +/5 bilateral. Hip flexion 4/5 bilateral. Negative Babinski. Negative clonus. Negative John's sign. Results Reviewed Results Reviewed: Ordering Physician: Seema Gaspar Date of Service: 03/23/24 Procedure(s): CT cervical spine wo IV con Accession Number(s): [id number] cc: Stuart Will [facility]; Seema Gaspar~ EXAMINATION: CERVICAL SPINE CT WITHOUT CONTRAST CLINICAL INFORMATION: Fall. Head strike. COMPARISON: 02/27/2024 TECHNIQUE: Multidetector volumetric imaging was obtained through the cervical spine without intravenous contrast. Multiplanar reconstructed images in coronal and sagittal orientations were submitted. This CT examination was performed using dose optimization techniques as appropriate, variously including the following: *Automated exposure control *Adjustment of mA and/or kV according to patient size (this includes techniques or standardized protocols for targeted exams where dose is matched to indication/reason for exam; i.e. extremities or head) *Use of iterative reconstruction technique DOSE: 1161 mGy-cm FINDINGS: Vertebral body heights are normal. No fractures of the vertebral bodies or posterior elements. Vertebral alignment is normal. No subluxation. Degenerative changes are present at the craniocervical and atlantoaxial articulations, though normal alignment is maintained. There is ankylosis of C5 to C7 at the vertebral bodies. Moderate multilevel degenerative disc disease is present in the cervical spine at C3-C4 and C4-C5 with loss of vertebral disc height, endplate osteophytes, uncovertebral osteophytes, and vacuum phenomenon. Multilevel facet arthropathy, most notably at C3-C4 and C4-C5. Posterior disc osteophytic bulge and ligament flavum thickening at C3-C4 produces moderate to severe central canal stenosis at this level. Additional central canal stenosis is evident at C4-C5 due to disc bulge and ligamentum flavum thickening. More mild central canal narrowing at other levels. Multilevel neural foraminal encroachment is most notable at C3-C4 and C4-C5 bilaterally. No significant paravertebral soft tissue swelling. Atherosclerotic calcifications are present in the carotid arteries. There is skin thickening in the neck posteriorly with associated subcutaneous edema. Imaged portions of the lung apices are clear. CT/CT cervical spine wo IV con IMPRESSION: 1. No acute fracture or malalignment in the cervical spine. 2. Multilevel degenerative spondylosis in the cervical spine with central canal and neural foraminal stenoses, most notably at C3-C4 and C4-C5. Ordering Physician: Seema Gaspar Date of Service: 03/23/24 Procedure(s): XR lumbar spine 2-3V Accession Number(s): [id number] cc: Stuart Will [facility]-; Seema Gaspar~ EXAMINATION: XR LUMBOSACRAL SPINE CLINICAL INFORMATION: Fall. Pain. COMPARISON: CT abdomen pelvis dated 09/09/2023. TECHNIQUE: Three views of the lumbosacral spine. FINDINGS: There is stable, grade 1 anterolisthesis of L4 in relation to L5. There is stable, grade 1 retrolisthesis of L3 in relation to L4. These areas of listhesis are felt to be secondary to advanced facet arthropathy. Vertebral body heights are maintained. There is multilevel degenerative disc disease characterized by intervertebral disc space narrowing, endplate sclerosis and a large anterior osteophytes. There is severe facet arthropathy at L4-L5 and L5-S1. No definite acute fracture is identified. The sacroiliac joints appear maintained. There are surgical clips throughout the abdomen and pelvis. There is abundant stool throughout the visualized colon. XR/XR lumbar spine 2-3V IMPRESSION: No acute osseous lumbar spine abnormality. Moderate to severe degenerative disease of the spine as described. I reviewed records from the following: PCP Assessment & Plan Assessment & Plan (1) Peripheral neuropathy: Code(s): G62.9 - Polyneuropathy, unspecified Category: Medical Qualifiers: Peripheral neuropathy type: polyneuropathy associated with underlying disease Qualified Code(s): G63 - Polyneuropathy in diseases classified elsewhere (2) Left foot drop: Code(s): M21.372 - Foot drop, left foot Category: Medical (3) History of amputation of foot: Code(s): Z89.439 - Acquired absence of unspecified foot Category: Surgical Qualifiers: Laterality: right Qualified Code(s): Z89.431 - Acquired absence of right foot Plan History of longstanding peripheral neuropathy, attributed to long history of poorly controlled diabetes. Stocking-glove distribution. Left footdrop chronic. Right foot amputation 2001. I think we should start with getting gait and balance improved by addressing the left footdrop. Recommended for him to go back to prosthetics and orthotics in [place]. Referral given. Contact information given. Requesting them to fabricate custom left AFO and custom shoes bilateral. Offered referral to either home therapy or outpatient therapy. Patient defers for now. I think we need to revisit this after he has obtained new braces/shoes. Assessment and plan discussed with patient, and patient was agreeable. All questions were answered thoroughly. Follow up 3 months. Total of 45 minutes spent today including chart review, results review, history taking, physical examination, discussion of assessment and plan, and coordination of care. Shobha Lai MD, NANCIE Board Certified, [place] Board of Physical Medicine and Rehabilitation (ABPMR) Board Certified, [place] Board of Electrodiagnostic Medicine (ABEM) Medications: New leg brace (Ankle Brace) LEFT AFO custom molded for foot drop Custom shoes, diabetic foot 1 ea 0RF Coding Level of Care Code New Pt Level 4 (67363) Diagnoses Polyneuropathy associated with underlying disease G63 Peripheral neuropathy type: polyneuropathy associated with underlying disease Left foot drop M21.372 History of amputation of right foot Z89.431 Laterality: right
== END 2024-06-28 13:03 | disposition home or self-care (01) ==
PROVIDERS: PCP Nurse Practitioner Family; Visit Provider Physical Medicine & Rehabilitation
DX: E11.42 Type 2 diabetes mellitus with diabetic polyneuropathy (principal); M21.372 Foot drop, left foot
CPT/HCPCS: 99204

== ENCOUNTER → 2024-06-28 11:34 | Outpatient (BNVA) | payer BC, SELFPAY | PROVIDERS: PCP Nurse Practitioner Family; Visit Provider Physical Medicine & Rehabilitation ==

== ENCOUNTER 2024-07-24 15:35 | Outpatient (AMB) | payer BC, SELFPAY ==
[2024-07-24 15:35] VITALS: BP 108/68; PULSE 80; O2SAT 93; BMI 30.3
--- NOTE | 2024-07-24 15:35 | MHC.PC.OV ---
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 A1C in office today is 5.3. Due for microalbumin, will order. Denies polyuria and polydipsia, does report neuropathy. Pt denies any signs and symptoms of hypoglycemia and does know how to correct it. Eye exam is up to date. Refused foot exam today. Pt reports that his breathing is improving due to better air quality. 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 Vitamin D deficiency Cholecystectomy planned Osteoarthritis History of colon cancer CKD (chronic kidney disease) Sarcoidosis Partial nontraumatic amputation of right foot PVD (peripheral vascular disease) Diabetic retinopathy Spherocytosis Skin cancer Peripheral neuropathy Spinal stenosis Renal stones Pulmonary sarcoidosis Diabetes Surgical History History of amputation of foot History of ureter repair H/O splenectomy S/P ureteral reimplantation History of surgical removal of pilonidal cyst History of tonsillectomy and adenoidectomy H/O right hemicolectomy Status post laser lithotripsy of ureteral calculus Hx of cholecystectomy Hx of colonoscopy Family History Mother Thyroid cancer Other Mental health disorder Social History Household Members: Friend(s) Housing: House Are you a primary home care assistant to a significant other at home: No Do you presently have visiting nurse or other home services: No Alcohol intake: never Patient Tobacco Use Status: Never used Tobacco e-Cigarette/Vaping Use: Never Used Second Hand Smoke Exposure: No service: No Current occupational status: employed and retired Cognitive needs: No Hearing needs: No Vision needs: No Questionnaire PHQ-9 Over the last 2 weeks, how often have you been bothered by any of the following problems? 01488 - PHQ-9 Billing: Patient declined-do not bill Source: Developed by Drs. Ernesto Moscoso, Sam Garcia and colleagues, with an educational devon from [employer]. Thrive Questionnaire Date Thrive assessed: 03/22/24 CANDIS-7 AMB Questionnaire CANDIS-7 Date CANDIS - 7 assessed: 03/22/24 Source: Developed by Drs. Ernesto Moscoso, Sam Garcia and colleagues, with an educational devon from [employer]. CANDIS-7 Assessment Billing CANDIS-7 Assessment Tool: pt declined-do not bill Review of Systems Const Reports as per HPI Physical exam (Primary Care) Vital Signs: Last Vital Signs Pulse 80 07/24/24 15:35 BP 108/68 07/24/24 15:35 Pulse Ox 93 07/24/24 15:35 Oxygen Delivery Method Room Air 07/24/24 15:35 BMI result Body Mass Index 30.3 Tobacco/Smoking Status: Tobacco use Status Tobacco use date assessed 03/22/24 07/24/24 15:36 Patient Tobacco Use Status Never used Tobacco 07/24/24 15:36 e-Cigarette/Vaping Use Never Used 07/24/24 15:36 Thrive Assessment: Date of Thrive Assessment Date Thrive assessed 03/22/24 07/24/24 15:36 Const Other: uses a rolling walker General: cooperative Orientation/consciousness: patient oriented x3 Resp Effort & Inspection: normal respiratory effort Auscultation: clear to auscultation bilaterally Cardio Rate: regular rate Rhythm: regular rhythm Heart sounds: S1 normal heart sound present and S2 normal heart sound present Neuro General: patient oriented x3 Extrem Other: refused foot exam Psych Appearance: grossly normal Mental Status: mental status grossly normal Speech and movement: Normal speech and movement present Affect: normal affect Attitude: cooperative Thought process: Normal thought process present Thought content: Normal thought content present Insight: Good insight present (Psych) Judgement: Good judgement present (Psych) Coding Level of Care Code Est Pt Level 3 (20636) Diagnoses Diabetes E11.9 Assessment & Plan Assessment & Plan (1) Diabetes: Code(s): E11.9 - Type 2 diabetes mellitus without complications Category: Medical Plan: Labs ordered Plan The patient agreed to the use of a medical territory manager for this encounter. Scribed for YOMI Mattson-ARIK by Karissa Rosas medical territory manager, on 07/24/2024 at 15:50 EST. Orders: Orders Microalbumin, Random (w Creat) Today E11.9 - Type 2 diabetes mellitus without complications Complete Blood Count Auto Diff Today E11.9 - Type 2 diabetes mellitus without complications Comprehensive [place]. Panel Fast Today E11.9 - Type 2 diabetes mellitus without complications TSH reflex Free T4 Today E11.9 - Type 2 diabetes mellitus without complications UA CC w/rflx Micro + Cult Today E11.9 - Type 2 diabetes mellitus without complications Lipid Panel Today E11.9 - Type 2 diabetes mellitus without complications
== END 2024-07-24 16:39 | disposition home or self-care (01) ==
PROVIDERS: PCP Nurse Practitioner Family; Visit Provider Nurse Practitioner Family
DX: E11.9 Type 2 diabetes mellitus without complications (principal)

== ENCOUNTER → 2024-07-24 15:35 | Outpatient (BNVA) | payer BC, SELFPAY | PROVIDERS: PCP Nurse Practitioner Family; Visit Provider Nurse Practitioner Family ==

== ENCOUNTER 2024-08-01 11:46 | Outpatient (AMB) | payer BC, SELFPAY ==
--- NOTE | 2024-08-01 12:52 | MHC.OFFWIV ---
Intake Vital Signs 08/01/24 12:53 Height 5 ft 11 in Weight 208 lb BMI 29.0 BP 120/78 Blood Pressure Location Lt brachial Position Sitting Pulse 72 Pulse Source Pulse Oximeter Temp 98.7 F Temp Source Oral Pulse Oximetry (%) 100 Oxygen Delivery Method Room Air Intake Visit Reasons: EP, leg fatigue, chest heavy, lightheaded, thirsty Intake Note: Patient here because yesterday he had chest heaviness, weakness, lightheaded, leg heaviness and slurred speech. Patient Tobacco Use Status: Never used Tobacco Allergies penicillamine Allergy (Unknown, Verified 08/01/24 12:55) unknown Do you need a note to return to daycare/school/sports/work: No HPI HPI Comments History of Present Illness Details This is a 71-year-old male with a past medical history of insulin-dependent diabetes, peripheral neuropathy and lumbar stenosis presenting for evaluation of chest heaviness and an episode of slurred speech that occurred yesterday afternoon. 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 Patient states that approximately 2:00 p.m. 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 ? Patient states that he stopped talking at that time, returned to his vehicle and went on to school. Patient states that he has had chest heaviness throughout the day yesterday as well as today and feels weak and lightheaded today. Patient denies any syncope, overt chest pain, shortness breath, nausea, vomiting, abdominal pain or back pain and states his morning blood glucose was 120mg/dL. Patient denies any episodes of slurred speech today and describes the chest heaviness as heavy -- like I need to take deeper breaths for oxygen. 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 Vitamin D deficiency Cholecystectomy planned Osteoarthritis History of colon cancer CKD (chronic kidney disease) Sarcoidosis Partial nontraumatic amputation of right foot PVD (peripheral vascular disease) Diabetic retinopathy Spherocytosis Skin cancer Peripheral neuropathy Spinal stenosis Renal stones Pulmonary sarcoidosis Diabetes Surgical History History of amputation of foot History of ureter repair H/O splenectomy S/P ureteral reimplantation History of surgical removal of pilonidal cyst History of tonsillectomy and adenoidectomy H/O right hemicolectomy Status post laser lithotripsy of ureteral calculus Hx of cholecystectomy Hx of colonoscopy Family History Mother Thyroid cancer Other Mental health disorder Social History Household Members: Friend(s) Housing: House Are you a primary care program director to a significant other at home: No Do you presently have visiting nurse or other home services: No Alcohol intake: never Patient Tobacco Use Status: Never used Tobacco e-Cigarette/Vaping Use: Never Used Second Hand Smoke Exposure: No service: No Current occupational status: employed and retired Cognitive needs: No Hearing needs: No Vision needs: No Review of Systems Const All systems reviewed & are unremarkable except as noted in HPI and below Denies chills, Reports fatigue and Denies fever(s) Eyes Reports no additional complaints ENT Reports no additional complaints Card Reports chest pain ( heaviness ) and Denies dyspnea Resp Reports chest congestion, Reports cough and Denies dyspnea GI Reports no additional complaints, Denies abdominal pain, Denies nausea and Denies vomiting Reports no additional complaints Musc Reports no additional complaints Skin/Breast Reports system reviewed and no additional complaints, except as documented Neuro Reports no additional complaints and Denies confusion Psych Reports no additional complaints and Denies confusion Endo Reports fatigue Aller/Immun Reports no additional complaints Physical Exam Vital Signs: Last Vital Signs Temp 98.7 F 08/01/24 12:53 Pulse 72 08/01/24 12:53 BP 120/78 08/01/24 12:53 Pulse Ox 100 08/01/24 12:53 Oxygen Delivery Method Room Air 08/01/24 12:53 BMI result Body Mass Index 29.0 Const General: cooperative, healthy appearing, comfortable, no acute distress, alert and awake; No confusion, lethargic or patient obtunded Nutritional Appearance: average body habitus Orientation/consciousness: patient oriented x3, No confusion, No patient obtunded and No lethargic Limitations: ambulation with walker HEENT Head: Yes normal to inspection Ears: hearing grossly normal bilaterally Face and sinus: Yes normal facial exam and Yes face symmetric Eyes General: appearance normal, both eyes and all related structures Visual Shultz: normal visual shultz by confrontation Alignment and Position: alignment normal Periorbital: periorbital findings normal Eyelids: Yes eyelids normal Conjunctivae: conjunctivae normal Sclerae: sclerae normal Pupils: Equal, round and reactive pupils present EOM: EOMs intact bilaterally Resp Effort & Inspection: normal respiratory effort Auscultation: clear to auscultation bilaterally Cardio Rate: regular rate Rhythm: regular rhythm Neuro General: patient oriented x3, No confusion and No patient obtunded Cranial nerves: Yes CN's II-XII intact bilaterally, Yes Equal, round and reactive pupils present and Yes Ability to bilaterally elevate shoulders present Gait exam (Neuro): Assisted gait required Gait assisted method: walker Psych Appearance: grossly normal Mental Status: mental status grossly normal Speech and movement: Clear speech present; No Slurred speech present Thought process: Normal thought process present Insight: Good insight present (Psych) Judgement: Good judgement present (Psych) Assessment & Plan Assessment & Plan (1) Chest heaviness: Comment: Patient is referred to the emergency department for further evaluation and care. Patient will be driven in a private vehicle. Code(s): R07.89 - Other chest pain Plan: [facility] ED for further evaluation. Expect called to charger operatorCARLOS MANUEL Stiles at 1:24pm. Coding Level of Care Code Est Pt Level 3 (77971) Diagnoses Chest heaviness R07.89 Time Spent (min) 20
[2024-08-01 12:53] VITALS: BP 120/78; PULSE 72; TEMP 37.1; O2SAT 100; BMI 29.0
== END 2024-08-01 13:29 | disposition home or self-care (01) ==
PROVIDERS: PCP Nurse Practitioner Family; Visit Provider Physician Assistant
DX: R07.89 Other chest pain (principal)

== ENCOUNTER → 2024-08-01 11:46 | Outpatient (BNVA) | payer BC, SELFPAY | PROVIDERS: PCP Nurse Practitioner Family; Visit Provider Physician Assistant ==

== ENCOUNTER 2024-08-01 13:51 | Emergency (ER) | payer BC, SELFPAY ==
--- NOTE | ~2024-08-01 | XR_ITS ---
EXAMINATION: XR CHEST CLINICAL INFORMATION: Pain COMPARISON: None available. TECHNIQUE: 2 views of the chest were obtained. FINDINGS: Lungs clear. No pleural effusions. Heart and pulmonary vessels normal. Spondylitic change seen in the spine. No acute fracture. There are surgical clips in the left upper quadrant. XR/XR chest 2V IMPRESSION: Unremarkable examination. Electronically signed by: Mohamud Brothers MD 08/01/2024 03:19 PM EDT RP
[2024-08-01 14:05] VITALS: BP 145/77; PULSE 98; RESP 16; TEMP 36.9; O2SAT 100; BMI 29.3
--- NOTE | 2024-08-01 14:10 | ECG_ITS ---
Test Reason : CHEST PAIN Blood Pressure : / mmHG Vent. Rate : 084 BPM Atrial Rate : 084 BPM P-R Int : 130 ms QRS Dur : 080 ms QT Int : 376 ms P-R-T Axes : -07 -33 017 degrees QTc Int : 444 ms Normal sinus rhythm with sinus arrhythmia Left axis deviation Low voltage QRS Abnormal ECG When compared with ECG of 29-JUL-2021 14:27, No significant change was found Referred By: Shena Blanchard Electronically Signed By:Arnold Gunderson
--- NOTE | 2024-08-01 14:11 | ED_ITS ---
HPI - General Adult General Chief complaint: General Medical Stated complaint: TIA? Sent by Time Seen by Provider: 08/01/24 15:43 Source: patient Mode of arrival: ambulatory Limitations: no limitations History of Present Illness ED Provider: Dr. Lexx Bermeo HPI narrative: 79-year-old male history of diabetes, left foot drop, peripheral neuropathy who presents emergency department for evaluation of brief episode of slurred speech yesterday at 14:00 hours, chest heaviness, shortness of breath, lightheadedness, dizziness, weakness and fatigue. Patient states that yesterday had a very brief episode of slurred speech that resolved after minutes. States that since that time he has not been feeling well. He states that he feels weak and fatigued. He has been feeling short of breath. Patient had chest heaviness which is been constant times several hours. He denied fever, chills, myalgias arthralgias. Related Data Home Medications ?Medication ?Instructions ?Recorded ?Confirmed zinc 50 mg capsule 50 mg PO DAILY 08/13/20 06/28/24 vitamin B complex 1 cap PO DAILY 10/14/20 06/28/24 berberine-herbal comb no.18 capsule 500 cap PO BID 12/31/22 06/28/24 resvertrol 06/01/23 06/28/24 ascorbate calcium (vitamin C) 500 1.5 g PO DAILY 07/07/23 06/28/24 mg tablet cholecalciferol (vitamin D3) 100 1,200 unit PO DAILY 09/27/23 06/28/24 mcg (4,000 unit) capsule latanoprost 0.005 % eye drops 1 drp ophthalmic (eye) QPM 03/21/24 06/28/24 mecobalamin (vitamin B12) 500 mcg mcg PO 04/26/24 06/28/24 chewable tablet alpha lipoic acid 200 mg capsule 200 mg PO BID 05/23/24 06/28/24 turmeric (bulk) 95 % powder ea miscellaneous 07/24/24 (Curcumin) Previous Rx's ?Medication ?Instructions ?Recorded insulin NPH isoph U-100 human 100 30 unit (0.3 mL) subcut BID 90 08/24/22 unit/mL subcutaneous suspension days #60 mL (Humulin N NPH U-100 Insulin (isophane susp)) blood sugar diagnostic (Contour #100 ea 06/01/23 Test Strips) insulin syringe-needle U-100 1 mL #200 ea 02/16/24 30 gauge x 1/2 (BD Insulin Syringe Ultra-Fine) blood-glucose sensor (FreeStyle #6 ea 04/26/24 Nilsa 3 Sensor device) ketoconazole 2 % topical cream 1 appl topical DAILY 14 days #30 06/02/24 grams leg brace (Ankle Brace) #1 ea 06/28/24 Allergies Allergy/AdvReac Type Severity Reaction Status Date / Time penicillamine Allergy Unknown unknown Verified 08/01/24 14:06 Review of Systems 2 Review of Systems: Yes all other systems are reviewed and are negative FOR[facility]LY [facility] Past Medical History 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 Vitamin D deficiency Cholecystectomy planned Osteoarthritis History of colon cancer CKD (chronic kidney disease) Sarcoidosis Partial nontraumatic amputation of right foot PVD (peripheral vascular disease) Diabetic retinopathy Spherocytosis Skin cancer Peripheral neuropathy Spinal stenosis Renal stones Pulmonary sarcoidosis Diabetes Surgical History History of amputation of foot History of ureter repair H/O splenectomy S/P ureteral reimplantation History of surgical removal of pilonidal cyst History of tonsillectomy and adenoidectomy H/O right hemicolectomy Status post laser lithotripsy of ureteral calculus Hx of cholecystectomy Hx of colonoscopy Family History Family History Mother Thyroid cancer Other Mental health disorder Social History Social History Household Members: Friend(s) Housing: House Are you a primary outdoor emergency care technician to a significant other at home: No Do you presently have visiting nurse or other home services: No Alcohol intake: never Patient Tobacco Use Status: Never used Tobacco e-Cigarette/Vaping Use: Never Used Second Hand Smoke Exposure: No Advance Directives: No Advance Directives Information Provided: Yes Do you have a plan to hurt others: No Plan service: No Current occupational status: employed and retired Cognitive needs: No Hearing needs: No Vision needs: No Physical Exam ED Vital Signs: Vital Signs - 24 hr 08/01/24 14:05 Temperature 98.4 F Pulse Rate 98 Respiratory Rate 16 Blood Pressure 145/77 H Pulse Oximetry 100 Oxygen Delivery Method Room Air BMI result Body Mass Index 29.3 Vital signs were normal Exam: General: Awake, alert in no distress Head: Normocephalic, atraumatic EENT: PERRL, Lids normal, sclera normal, conjunctiva normal, nose normal , ears normal, throat without erythema or exudates Neck: Supple, no adenopathy Lung: breath sounds symmetric, no wheezing, rales or rhonchi Chest: symmetric movement, nontender Heart: regular rate and rhythm, normal S1, S2 no murmurs or rubs Abdomen: soft, non-tender, nondistended, normal bowel sounds Back: no vertebral tenderness, no CVAT Extremities: no deformities, moves all extremities symmetrically Neuro: Awake, alert, oriented, normal speech, cranial nerves intact, moves all extremities symmetrically Psych: Pleasant, cooperative Course Course Course Narrative: This is a rapid medical exam performed by Shena Blanchard PA-C. 79-year-old male with history of diabetes with neuropathy, chronic back pain using a walker to ambulate secondary to gait instability, presents with multiple complaints. Patient states he has been having weakness of bilateral lower extremities, chest pressure, shortness of breath. Yesterday patient developed slurred speech, which has since resolved. On exam patient is neurologically intact, walking at baseline, no speech impediment, no dysarthria, no aphasia. We will initiate assessment for ACS, including screening labs, troponin, chest x-ray and EKG. He is hemodynamically stable and return to the weight room pending full assessment. Medical Decision Making Medical Decision Making MDM Narrative: 79-year-old male history of diabetes, left foot drop, peripheral neuropathy who presents emergency department for evaluation of brief episode of slurred speech yesterday at 14:00 hours, chest heaviness, shortness of breath, lightheadedness, dizziness, weakness and fatigue. Patient states that yesterday had a very brief episode of slurred speech that resolved after minutes. States that since that time he has not been feeling well. He states that he feels weak and fatigued. He has been feeling short of breath. Patient had chest heaviness which is been constant times several hours. He denied fever, chills, myalgias arthralgias. Vital signs were normal. Physical exam was unremarkable Differential diagnosis: ?Includes but is not limited to stroke, myocardial infarction, myocardial ischemia, pneumonia, COVID-19, influenza, RSV Course: My interpretation patient's laboratory evaluation is as follows: CBC was normal. PT/INR normal. CMP revealed an elevated glucose of 136. Elevated bilirubin 2.3. Magnesium was normal. Troponin was detectable but not elevated at 3.5. COVID-19 was positive. RSV and influenza were negative. Chest x-ray revealed no acute disease. Patient's symptoms were consistent with COVID-19 infection, this time I do not think that he was COVID pneumonia and I did discuss this with him. Patient was given printed and verbal instructions and discharged home. Admission/Observation Consideration of admission/observation: Escalation of care including admission/observation considered (Yes) Lab Data MDM Lab Attestation statement: I reviewed the patient's lab results. 08/01/24 14:25 08/01/24 14:25 Labs: Lab Results 08/01/24 08/01/24 08/01/24 Range/Units 14:25 14:38 14:42 WBC 8.4 (4.8-10.8) X10*3/uL RBC 4.65 (4.60-5.80) X10*6/uL Hgb 14.7 (14.0-18.0) g/dl Hct 40.0 L (42.0-52.0) % MCV 86.0 (80.0-98.0) fL MCH 31.6 (27.0-33.0) pg MCHC 36.8 H (31.0-36.0) g/dl RDW 12.6 (11.0-16.0) % Plt Count 463 H (160-400) X10*3/uL MPV 10.5 (9.4-12.4) fL Immature Gran % (Auto) 0.6 H (0.0-0.4) % Neut % (Auto) 49.0 (45-73) % Lymph % (Auto) 38.7 (20-40) % [place] % (Auto) 10.1 (2-11) % Eos % (Auto) 1.0 (0-4) % Baso % (Auto) 0.6 (0-2) % Lymph # (Auto) 3.3 (1.2-4.9) X10*3/uL [place] # (Auto) 0.9 (0.1-1.2) X10*3/uL Eos # (Auto) 0.1 (0.0-0.4) X10*3/uL Baso # (Auto) 0.1 (0.0-0.2) X10*3/uL Abs Immat Gran (auto) 0.05 H (0.00-0.03) X10*3/uL Absolute Neuts (auto) 4.1 (2.0-8.3) x10*3/uL Absolute Nucleated RBC 0.000 (0.0-0.012) X10*3/uL Nucleated RBC % (auto) 0.0 (0.0-0.2) /100WBC PT 12.4 (10.9-12.4) SEC INR 1.1 (0.9-1.1) Sodium 139 (135-145) mmol/L Potassium 4.0 (3.3-5.1) mmol/L Chloride 104 (96-108) mmol/L Carbon Dioxide 27 (22-29) mmol/L Anion Gap 12 (12-20) BUN 16 (9-16) mg/dL Creatinine 0.97 (0.5-1.4) mg/dL Estim Creat Clear Calc 73.9 Estimated GFR > 60 POC Glucose 142 H (60-115) mg/dL Random Glucose 136 H (60-115) mg/dL Calcium 10.7 H (8.4-10.2) mg/dL Magnesium 1.9 (1.6-2.6) mg/dL Total Bilirubin 2.3 H (0.0-1.0) mg/dL AST 35 (5-37) U/L ALT 18 (0-40) U/L Alkaline Phosphatase 75 (39-117) U/L Troponin I High Sens 3.5 (<3.5-35.0) ng/L Total Protein 7.7 (6.5-8.0) g/dL Albumin 4.1 (3.5-5.0) g/dL Urine Color Yellow Urine Appearance Clear Urine pH 6.5 (5.0-9.0) Ur Specific [place] 1.010 (1.005-1.025) Urine Protein Negative (Neg-Trace) mg/dL Urine Glucose (UA) Negative (Negative) mg/dL Urine Ketones 15 (Negative) mg/dL Urine Blood Negative (Negative) Urine Nitrite Negative (Negative) Ur Leukocyte Esterase Negative (Negative) Influenza Type A (PCR) NEGATIVE (Negative) Influenza Type B (PCR) NEGATIVE (Negative) RSV RNA Qual (PCR) NEGATIVE (Negative) SARS-CoV-2 RNA (RT-PCR) POSITIVE A (Negative) Independent Interpretation I performed an independent interpretation of an: EKG and Plain X-Ray Interpretation: My independent interpretation the patient's chest x-ray is as follows: No acute disease My independent interpretation patient's 12 EKG done at 14:09 is as follows: Normal sinus rhythm with a rate of 84, normal [place] interval, QRS duration, QTC interval, no ST segment elevation, no ST segment depression, Q-wave in lead 3 and AVF, no PACs, no PVCs, no significant T-wave abnormalities Radiology Impression Discussion of test interpretation with radiology: I have reviewed the radiologist's reading. Radiologist Impression: EXAMINATION: XR CHEST FINDINGS: Lungs clear. No pleural effusions. Heart and pulmonary vessels normal. Spondylitic change seen in the spine. No acute fracture. There are surgical clips in the left upper quadrant. XR/XR chest 2V IMPRESSION: Unremarkable examination. Electronically signed by: Mohamud Brothers MD 08/01/2024 03:19 PM EDT Chronic Conditions Patient?s care impacted by: Diabetes Discharge Plan Discharge Clinical Impression: COVID-19 virus infection, Fatigue Chest pain Qualifiers: Chest pain type: unspecified Qualified Code(s): R07.9 - Chest pain, unspecified Patient Disposition: Home, Self-Care Additional Instructions: Your blood work, EKG and chest x-ray were unremarkable. Your influenza and RSV tests were negative. Your COVID-19 test was positive and this explains all of your symptoms. COVID-19 is now treated like a viral cold, you do not need to isolate however if you have fever, chills you should stay home until these symptoms resolved Watch for signs of COVID-19 pneumonia which would include increased shortness of breath, increased shortness of breath with exertion fever, chills, chest pain worse with breathing. Continue taking your other medications as prescribed by your providers Follow-up with your doctor in 2 days. Please return to the emergency department if your symptoms get worse or if you develop any symptoms that are concerning to you. Prescriptions: No Action (DME) insulin syringe-needle U-100 [BD Insulin Syringe Ultra-Fine] 1 mL 30 gauge x 1/2 syringe See Rx Instructions .Route Qty: 200 3RF Rx Instructions: Use to inject insulin twice per day ketoconazole 2 % cream 1 appl topical DAILY 14 Days Qty: 30 1RF vitamin B complex Capsule 1 cap PO DAILY latanoprost 0.005 % drops 1 drp ophthalmic (eye) QPM zinc 50 mg Capsule 50 mg PO DAILY cholecalciferol (vitamin D3) 100 mcg (4,000 unit) capsule 1,200 unit PO DAILY berberine-herbal comb no.18 Capsule 500 cap PO BID ascorbate calcium (vitamin C) 500 mg tablet 1.5 g PO DAILY Humulin N NPH U-100 Insulin 100 unit/mL suspension 30 unit subcut BID 90 Days Qty: 60 3RF (DME) resvertrol 0 .Route .MEDSUPPLY (DME) Contour Test Strips Strip See Rx Instructions .Route Qty: 100 3RF Rx Instructions: 5 times a day mecobalamin (vitamin B12) 500 mcg tablet,chewable PO (DME) FreeStyle Nilsa 3 Sensor Device See Rx Instructions .Route Qty: 6 1RF Rx Instructions: Test blood sugar 4 times per day alpha lipoic acid 200 mg capsule 200 mg PO BID (DME) Ankle Brace Misc See Rx Instructions .ROUTE .MEDSUPPLY Qty: 1 0RF Rx Instructions: LEFT AFO custom molded for foot drop Custom shoes, diabetic foot Curcumin 95 % powder miscellaneous Interventions: ED Discharge Assessment Last Done: 08/01/24 17:05 Discharge Date/Time: 08/01/24 17:05 Print Language: Other
[2024-08-01 14:43] LABS: MANUAL DIFF FLAG NO
[2024-08-01 14:50] LABS: Basophils Absolute Auto 0.1 X10*3/uL (0.0-0.2); Basophils Percent Auto 0.6 % (0-2); Eosinophils Absolute Auto 0.1 X10*3/uL (0.0-0.4); Hemoglobin 14.7 g/dl (14.0-18.0); Imm Gran Abs Auto 0.05 X10*3/uL (0.00-0.03); Imm Gran Pct Auto 0.6 % (0.0-0.4); Lymphocytes Absolute Auto 3.3 X10*3/uL (1.2-4.9); Lymphocytes Percent Auto 38.7 % (20-40); Mean Corpuscular HGB Conc 36.8 g/dl (31.0-36.0); Mean Corpuscular Hemoglobin 31.6 pg (27.0-33.0); Mean Platelet Volume 10.5 fL (9.4-12.4); Monocytes Absolute Auto 0.9 X10*3/uL (0.1-1.2); Monocytes Percent Auto 10.1 % (2-11); Neutrophils Absolute Auto 4.1 x10*3/uL (2.0-8.3); Platelet Count 463 X10*3/uL (160-400); Red Blood Count 4.65 X10*6/uL (4.60-5.80); Red Cell Distribution Width 12.6 % (11.0-16.0); White Blood Count 8.4 X10*3/uL (4.8-10.8)
[2024-08-01 14:53] LABS: Appearance Urine Clear; Color Urine Yellow; Glucose Urine UA Negative (Negative); Leukocyte Esterase Urine Negative (Negative); Nitrite Urine Negative (Negative); PH 6.5 (5.0-9.0); Urine Blood Negative (Negative); Urine Ketones 15 mg/dL (Negative); Urine Protein Negative (Neg-Trace)
[2024-08-01 14:56] LABS: INTERNATIONAL NORM RATIO 1.1 (0.9-1.1); Prothrombin Time 12.4 SEC (10.9-12.4)
[2024-08-01 14:58] LABS: Alanine Aminotransferase 18 U/L (0-40); Albumin Level 4.1 g/dL (3.5-5.0); Alkaline Phosphatase 75 U/L (39-117); Anion Gap 12 (12-20); Aspartate Amino Transferase 35 U/L (5-37); Bilirubin Total 2.3 mg/dL (0.0-1.0); Blood Urea Nitrogen 16 mg/dL (9-16); Calcium 10.7 mg/dL (8.4-10.2); Carbon Dioxide 27 mmol/L (22-29); Chloride 104 mmol/L (96-108); Creatinine Clr Calc Pharmacy 73.9; Estimated Glomerular Filt Rate > 60; Glucose Random 136 mg/dL (60-115); Magnesium 1.9 mg/dL (1.6-2.6); Sodium 139 mmol/L (135-145); Total Protein 7.7 g/dL (6.5-8.0)
[2024-08-01 14:58] LABS: Glucose, Whole Blood 142 mg/dL (60-115)
[2024-08-01 15:06] LABS: Troponin-I High Sensitivity 3.5 ng/L (<3.5-35.0)
[2024-08-01 15:20] LABS: Influenza A PCR NEGATIVE (Negative); Influenza B PCR NEGATIVE (Negative); Resp Syncy Virus RNA Qual PCR NEGATIVE (Negative); SARS COV2 PCR INHOUSE POSITIVE (Negative)
[2024-08-01 17:05] VITALS: BP 145/77; PULSE 98; RESP 16; TEMP 36.9; O2SAT 100
== END 2024-08-01 17:05 | disposition home or self-care (01) ==
PROVIDERS: Physician Assistant Medical; Emergency Provider Emergency Medicine Emergency Medical Services; PCP Nurse Practitioner Family
DX: U07.1 COVID-19 (principal); I49.8 Other specified cardiac arrhythmias; R53.83 Other fatigue; R07.89 Other chest pain; R06.02 Shortness of breath; M54.50 Low back pain, unspecified; Z79.899 Other long term (current) drug therapy
CPT/HCPCS: 0241U; 36415; 71046; 80053; 81003; 82947; 83735; 84484; 85025; 85610; 93005; 99283

== ENCOUNTER → 2024-08-01 14:10 | Outpatient (BNV) | payer BC, SELFPAY | PROVIDERS: Emergency Provider Emergency Medicine Emergency Medical Services; PCP Nurse Practitioner Family; Visit Provider Internal Medicine Cardiovascular Disease | DX: R07.9 Chest pain, unspecified (principal) | CPT/HCPCS: 93010 ==

== ENCOUNTER → 2024-08-14 12:32 | Outpatient (BNVA) | payer BC, SELFPAY | PROVIDERS: PCP Nurse Practitioner Family ==

== ENCOUNTER 2024-08-16 12:07 | Outpatient (AMB) | payer BC, SELFPAY ==
--- NOTE | 2024-08-16 13:50 | AM.OFFWIN_ITS ---
Intake Vital Signs 08/16/24 13:58 Weight 210 lb BP 110/74 Blood Pressure Location Lt brachial Position Sitting Pulse 85 Pulse Source Pulse Oximeter Pulse Oximetry (%) 100 Oxygen Delivery Method Room Air Intake Visit Reasons: EP- post covid syndrome/possible lung issues Patient Tobacco Use Status: Never used Tobacco Allergies penicillamine Allergy (Unknown, Verified 08/01/24 14:06) unknown HPI EP- post covid syndrome/possible lung issues HPI Details This note is constructed using voice recognition software. While every effort has been made to ensure accuracy, retail training manager errors may have been included. The patient is a 79 year old male who presents to the clinic today with complaints of shortness of breath and muscle weekness after having covid. He notes that he had COVID in 2021, after which he has had a steady decline in his overall functioning, and respiratory status. He also notes that he has a longstanding history of ozone sensitivity as well as other particular matter in the air. He notes that last month he was sent to the emergency room after he was positive for COVID again, and since that time he has continued to have difficulty with his breathing. He notes that he has been treating himself with Irvermectin for COVID, as it is part of ?protocol?. He requests that I prescribe him Irvermectin for the ?man-made virus? as well as doxycycline for his respiratory status. On further inquiry, the patient reports that his breathing is not a concern at all, and his breathing is not creating any shortness of breath. He is far more concerned with his muscle weakness since he had COVID in 2021. He notes that he has tried to do physical therapy multiple times, and has been unable to do so. He then noted that when he was seen in the emergency room he had spoken with the radiologist who told him that he needed pulmonary function tests. In inquiring if he has followed with his primary care provider about that he said his appointment for today has been canceled. He reports that he does not feel that he needs pulmonary function tests as his breathing is ?fine?. 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 Vitamin D deficiency Cholecystectomy planned Osteoarthritis History of colon cancer CKD (chronic kidney disease) Sarcoidosis Partial nontraumatic amputation of right foot PVD (peripheral vascular disease) Diabetic retinopathy Spherocytosis Skin cancer Peripheral neuropathy Spinal stenosis Renal stones Pulmonary sarcoidosis Diabetes Surgical History History of amputation of foot History of ureter repair H/O splenectomy S/P ureteral reimplantation History of surgical removal of pilonidal cyst History of tonsillectomy and adenoidectomy H/O right hemicolectomy Status post laser lithotripsy of ureteral calculus Hx of cholecystectomy Hx of colonoscopy Family History Mother Thyroid cancer Other Mental health disorder Social History Household Members: Friend(s) Housing: House Are you a primary foster care social worker to a significant other at home: No Do you presently have visiting nurse or other home services: No Alcohol intake: never Patient Tobacco Use Status: Never used Tobacco e-Cigarette/Vaping Use: Never Used Second Hand Smoke Exposure: No service: No Current occupational status: employed and retired Cognitive needs: No Hearing needs: No Vision needs: No Review of Systems Const All systems reviewed & are unremarkable except as noted in HPI and below Physical Exam Vital Signs: Last Vital Signs Pulse 85 08/16/24 13:58 BP 110/74 08/16/24 13:58 Pulse Ox 100 08/16/24 13:58 Oxygen Delivery Method Room Air 08/16/24 13:58 Const General: cooperative, healthy appearing, comfortable, no acute distress and well developed HEENT Head: Yes normal to inspection Ears: hearing grossly normal bilaterally and TM normal on the right (Declined to remove hearing aid for examination of the left) General nose exam: Normal external nose present Face and sinus: Yes normal facial exam Eyes General: appearance normal, both eyes and all related structures Neck Neck: Yes normal visual inspection and Yes full ROM Resp Effort & Inspection: normal respiratory effort and able to speak in complete sentences Auscultation: clear to auscultation bilaterally Cardio Rate: regular rate Rhythm: regular rhythm Heart sounds: normal S1 and S2 Skin General skin exam: no rashes or lesions noted Assessment & Plan Assessment & Plan (1) Post-COVID syndrome: Code(s): U09.9 - Post COVID-19 condition, unspecified Plan: Patient with generalized complaints of long-term post COVID syndrome. He requested treatment with Irvermectin which I reviewed with him his both inappropriate for COVID, but also inappropriate given that he has no signs or concerns of parasite infection. I offered to confer with his PCP about the potential for ordering pulmonary function test, however he declined at this time. I have recommended that he continue with a healthy diet, adequate hydration, and returned to the clinic should he develop shortness of breath. In terms of his muscle weakness, I advised that he do try to continue with physical therapy as this may help him. He continued to attempt to debate with this provider in terms of the legality and appropriateness of treatment, at which point I politely ended the visit. Plan See above for full details and plan. Coding Level of Care Code Est Pt Level 3 (28395) Diagnoses Post-COVID syndrome U09.9
[2024-08-16 13:58] VITALS: BP 110/74; PULSE 85; O2SAT 100
== END 2024-08-16 14:31 | disposition home or self-care (01) ==
PROVIDERS: PCP Nurse Practitioner Family; Visit Provider Registered Nurse
DX: U09.9 Post COVID-19 condition, unspecified (principal)

== ENCOUNTER → 2024-08-16 12:07 | Outpatient (BNVA) | payer BC, SELFPAY | PROVIDERS: PCP Nurse Practitioner Family; Visit Provider Registered Nurse ==

== ENCOUNTER 2024-09-01 14:16 | Outpatient (REF) | payer BC, SELFPAY ==
[2024-09-01 16:10] LABS: MANUAL DIFF FLAG NO
[2024-09-01 16:23] LABS: Basophils Absolute Auto 0.1 X10*3/uL (0.0-0.2); Basophils Percent Auto 0.9 % (0-2); Eosinophils Absolute Auto 0.3 X10*3/uL (0.0-0.4); Eosinophils Percent Auto 3.6 % (0-4); Hematocrit 37.1 % (42.0-52.0); Hemoglobin 13.7 g/dl (14.0-18.0); Imm Gran Abs Auto 0.07 X10*3/uL (0.00-0.03); Imm Gran Pct Auto 0.9 % (0.0-0.4); Lymphocytes Absolute Auto 2.4 X10*3/uL (1.2-4.9); Lymphocytes Percent Auto 30.7 % (20-40); Mean Corpuscular HGB Conc 36.9 g/dl (31.0-36.0); Mean Corpuscular Hemoglobin 32.4 pg (27.0-33.0); Mean Corpuscular Volume 87.7 fL (80.0-98.0); Mean Platelet Volume 10.9 fL (9.4-12.4); Monocytes Absolute Auto 0.8 X10*3/uL (0.1-1.2); Monocytes Percent Auto 9.7 % (2-11); Neutrophils Absolute Auto 4.3 x10*3/uL (2.0-8.3); Neutrophils Percent Auto 54.2 % (45-73); Platelet Count 390 X10*3/uL (160-400); Red Blood Count 4.23 X10*6/uL (4.60-5.80); Red Cell Distribution Width 13.4 % (11.0-16.0)
[2024-09-01 16:48] LABS: Alanine Aminotransferase 24 U/L (0-40); Albumin Level 3.8 g/dL (3.5-5.0); Alkaline Phosphatase 93 U/L (39-117); Anion Gap 11 (12-20); Aspartate Amino Transferase 32 U/L (5-37); Bilirubin Total 1.5 mg/dL (0.0-1.0); Blood Urea Nitrogen 15 mg/dL (9-16); Calcium 9.6 mg/dL (8.4-10.2); Carbon Dioxide 25 mmol/L (22-29); Chloride 103 mmol/L (96-108); Estimated Glomerular Filt Rate > 60; Glucose Random 171 mg/dL (60-115); Potassium 3.8 mmol/L (3.3-5.1); Sodium 135 mmol/L (135-145); Total Protein 6.8 g/dL (6.5-8.0)
[2024-09-01 17:02] LABS: TSH reflex Free T4 2.07 uIU/mL (0.32-4.0)
== END 2024-09-01 14:17 | disposition home or self-care (01) ==
LOC: HO.HMGCLDS 14:16
PROVIDERS: PCP Nurse Practitioner Family; Referring Provider Internal Medicine Medical Oncology; Visit Provider Nurse Practitioner Family
DX: U07.1 COVID-19 (principal)
CPT/HCPCS: 36415; 80053; 84443; 85025

== ENCOUNTER 2024-09-13 13:14 | Emergency (ER) | payer MEDICARE, BC, SELFPAY ==
--- NOTE | ~2024-09-13 | XR_ITS ---
EXAMINATION: XR CHEST CLINICAL INFORMATION: sob COMPARISON: X-ray dated August 01, 2024 and August 28, 2022 TECHNIQUE: 2 views of the chest were obtained. FINDINGS: Pulmonary reticular pattern. No consolidation, pleural effusion or pneumothorax. No hyperinflation. Cardiomediastinal silhouette is normal in size with calcified plaque aortic arch. Multilevel thoracic spondylosis and calcifications of the anterior longitudinal ligament. Osteopenia versus osteoporosis. Vascular clips in the gastroesophageal junction and right upper quadrant abdomen. XR/XR chest 2V IMPRESSION: Chronic interstitial lung disease without acute airspace disease. Concerning ankylosing spondylitis in the correct clinical settings. Electronically signed by: Edison Faith MD 09/13/2024 03:17 PM [facility]
[2024-09-13 13:21] VITALS: BP 137/76; PULSE 107; RESP 20; TEMP 36.8; O2SAT 100; BMI 29.6
--- NOTE | 2024-09-13 13:22 | ED.GENADULT ---
HPI - General Adult General Chief complaint: General Medical Stated complaint: lightheaded, weakness, sob Time Seen by Provider: 09/13/24 21:40 Source: patient Mode of arrival: ambulatory Limitations: no limitations History of Present Illness ED Provider: HPI narrative: 79 yo male with history of post-covid syndrome, anemia, DM w/ neuropathy, CKD, PVD, pulmonary sarcoidosis, OA, anxiety who presents to the ER for evaluation of weakness, lightheadedness, SOB and increased HR at home. symptoms started today. admits to chronic weakness and fatigue. He checked his pulse and it was 112 today which prompted evaluation after looking it up online. no associated chest pain or palpitations. HR 107 in triage On arrival patient has been saturating 100% at room air with heart rate between 80 and 110 no significant distress noted Related Data Home Medications ?Medication ?Instructions ?Recorded ?Confirmed zinc 50 mg capsule 50 mg PO DAILY 08/13/20 06/28/24 vitamin B complex 1 cap PO DAILY 10/14/20 06/28/24 berberine-herbal comb no.18 capsule 500 cap PO BID 12/31/22 06/28/24 resvertrol 06/01/23 06/28/24 ascorbate calcium (vitamin C) 500 1.5 g PO DAILY 07/07/23 06/28/24 mg tablet cholecalciferol (vitamin D3) 100 1,200 unit PO DAILY 09/27/23 06/28/24 mcg (4,000 unit) capsule latanoprost 0.005 % eye drops 1 drp ophthalmic (eye) QPM 03/21/24 06/28/24 mecobalamin (vitamin B12) 500 mcg mcg PO 04/26/24 06/28/24 chewable tablet alpha lipoic acid 200 mg capsule 200 mg PO BID 05/23/24 06/28/24 turmeric (bulk) 95 % powder ea miscellaneous 07/24/24 (Curcumin) Previous Rx's ?Medication ?Instructions ?Recorded insulin NPH isoph U-100 human 100 30 unit (0.3 mL) subcut BID 90 08/24/22 unit/mL subcutaneous suspension days #60 mL (Humulin N NPH U-100 Insulin (isophane susp)) blood-glucose sensor (FreeStyle #6 ea 04/26/24 Nilsa 3 Sensor device) ketoconazole 2 % topical cream 1 appl topical DAILY 14 days #30 06/02/24 grams leg brace (Ankle Brace) #1 ea 06/28/24 blood sugar diagnostic (Contour #450 ea 09/01/24 Test Strips) insulin syringe-needle U-100 1 mL #200 ea 09/01/24 30 gauge x 1/2 (BD Insulin Syringe Ultra-Fine) Allergies Allergy/AdvReac Type Severity Reaction Status Date / Time penicillamine Allergy Unknown unknown Verified 09/13/24 13:25 Review of Systems Review of Systems: Yes all other systems are reviewed and are negative [facility] Past Medical History 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 Vitamin D deficiency Cholecystectomy planned Osteoarthritis History of colon cancer CKD (chronic kidney disease) Sarcoidosis Partial nontraumatic amputation of right foot PVD (peripheral vascular disease) Diabetic retinopathy Spherocytosis Skin cancer Peripheral neuropathy Spinal stenosis Renal stones Pulmonary sarcoidosis Diabetes Surgical History History of amputation of foot History of ureter repair H/O splenectomy S/P ureteral reimplantation History of surgical removal of pilonidal cyst History of tonsillectomy and adenoidectomy H/O right hemicolectomy Status post laser lithotripsy of ureteral calculus Hx of cholecystectomy Hx of colonoscopy Family History Family History Mother Thyroid cancer Other Mental health disorder Social History Social History Household Members: Friend(s) Housing: House Are you a primary care technician to a significant other at home: No Do you presently have visiting nurse or other home services: No Alcohol intake: never Patient Tobacco Use Status: Never used Tobacco e-Cigarette/Vaping Use: Never Used Second Hand Smoke Exposure: No Advance Directives: No Advance Directives Information Provided: No Do you have a plan to hurt others: No Plan service: No Current occupational status: employed and retired Cognitive needs: No Hearing needs: No Vision needs: No Physical Exam ED Vital Signs: BMI result Body Mass Index 29.6 Appearance: Alert. Oriented X3. No acute distress. Eyes: PERRLA, No Nystagmus ENT: Pharynx normal. Oral Mucosa moist Neck: Normal inspection. Neck supple. CVS: Normal heart rate and rhythm. Pulses normal. Respiratory: No respiratory distress. Equal air entry bilateral, no wheezing/rales/rhonchi Abdomen: Soft and nontender. Bowel sounds are present, no mass palpable, no CVA tenderness Skin: Skin warm and dry. Normal skin color. Normal skin turgor. Extremities: No lower extremity edema. No calf tenderness Neuro: Oriented X 3. No motor deficit. No sensory deficit.No cerebellar signs , cranial nerves II-XII intact Course Course Course Narrative: This is a Rapid Medical Examination (RME) performed by Zaire Clancy PA-C in triage. Full HPI, ROS, assessment and treatment plan per primary provider in the Main ED. 79 yo male with history of post-covid syndrome, anemia, DM w/ neuropathy, CKD, PVD, pulmonary sarcoidosis, OA, anxiety who presents to the ER for evaluation of weakness, lightheadedness, SOB and increased HR at home. symptoms started today. admits to chronic weakness and fatigue. He checked his pulse and it was 112 today which prompted evaluation after looking it up online. no associated chest pain or palpitations. HR 107 in triage Plan: CXR, EKG, labs Medical Decision Making Medical Decision Making [facility] Narrative: Patient with post COVID with stable vitals lungs are clear chest x-ray without any acute findings saturating 100% stable pulse rate will discharge patient home Lab Data [facility] Lab Attestation statement: I reviewed the patient's lab results. 09/13/24 13:47 09/13/24 13:47 Labs: Lab Results 09/13/24 09/13/24 Range/Units 13:47 20:31 WBC 8.6 (4.8-10.8) X10*3/uL RBC 4.62 (4.60-5.80) X10*6/uL Hgb 14.7 (14.0-18.0) g/dl Hct 41.0 L (42.0-52.0) % MCV 88.7 (80.0-98.0) fL MCH 31.8 (27.0-33.0) pg MCHC 35.9 (31.0-36.0) g/dl RDW 13.2 (11.0-16.0) % Plt Count 450 H (160-400) X10*3/uL MPV 10.6 (9.4-12.4) fL Immature Gran % (Auto) Cancelled Neut % (Auto) Cancelled Lymph % (Auto) Cancelled Creek % (Auto) Cancelled Eos % (Auto) Cancelled Baso % (Auto) Cancelled Lymph # (Auto) Cancelled Creek # (Auto) Cancelled Eos # (Auto) Cancelled Baso # (Auto) Cancelled Abs Immat Gran (auto) Cancelled Absolute Neuts (auto) Cancelled Absolute Nucleated RBC 0.000 (0.0-0.012) X10*3/uL Nucleated RBC % (auto) 0.0 (0.0-0.2) /100WBC Neutrophils % (Manual) 59 (45-73) % Band Neutrophils % 0 L (3-5) % Lymphocytes % (Manual) 32 (20-40) % Monocytes % (Manual) 9 (2-11) % Abs Neuts (Manual) 5.1 (2.0-8.3) X10*3/uL Lymphocytes # (Manual) 2.8 (1.2-4.9) X10*3/uL Monocytes # (Manual) 0.8 (0.1-1.2) X10*3/uL Platelet Estimate SLIGHTLY INCREASED (NORMAL) Plt Morphology Comment NORMAL RBC Morphology NOTED Giraldo-Monon Bodies PRESENT Acanthocytes (Spur) 3+ (>5) /OIF Sodium 140 (135-145) mmol/L Potassium 4.2 (3.3-5.1) mmol/L Chloride 103 (96-108) mmol/L Carbon Dioxide 26 (22-29) mmol/L Anion Gap 15 (12-20) BUN 21 H (9-16) mg/dL Creatinine 1.05 (0.5-1.4) mg/dL Estim Creat Clear Calc 68.6 Estimated GFR > 60 POC Glucose 115 (60-115) mg/dL Random Glucose 171 H (60-115) mg/dL Calcium 10.6 H D (8.4-10.2) mg/dL Magnesium 2.0 (1.6-2.6) mg/dL Total Bilirubin 2.1 H (0.0-1.0) mg/dL Direct Bilirubin 0.6 H (0.0-0.5) mg/dL AST 27 (5-37) U/L ALT 18 (0-40) U/L Alkaline Phosphatase 101 (39-117) U/L Troponin I High Sens 2.8 (<3.5-35.0) ng/L B-Natriuretic Peptide 28 (<100) pg/mL Total Protein 8.1 H (6.5-8.0) g/dL Albumin 4.4 (3.5-5.0) g/dL Influenza Type A (PCR) NEGATIVE (Negative) Influenza Type B (PCR) NEGATIVE (Negative) RSV RNA Qual (PCR) NEGATIVE (Negative) SARS-CoV-2 RNA (RT-PCR) NEGATIVE (Negative) Independent Interpretation I performed an independent interpretation of an: Plain X-Ray Radiology Impression Discussion of test interpretation with radiology: I have reviewed the radiologist's reading. Radiologist Impression: No acute Discharge Plan Discharge Clinical Impression: Weakness, Post covid-19 condition, unspecified Patient Disposition: Home, Self-Care Instructions: Weakness (ED) Additional Instructions: Drink plenty of fluids Your COVID test and chest x-ray is negative Follow with your PCP Prescriptions: No Action ketoconazole 2 % cream 1 appl topical DAILY 14 Days Qty: 30 1RF (DME) Contour Test Strips Strip See Rx Instructions .Route Qty: 450 1RF Rx Instructions: 5 times a day (DME) insulin syringe-needle U-100 [BD Insulin Syringe Ultra-Fine] 1 mL 30 gauge x 1/2 syringe See Rx Instructions .Route Qty: 200 3RF Rx Instructions: Use to inject insulin twice per day vitamin B complex Capsule 1 cap PO DAILY latanoprost 0.005 % drops 1 drp ophthalmic (eye) QPM zinc 50 mg Capsule 50 mg PO DAILY cholecalciferol (vitamin D3) 100 mcg (4,000 unit) capsule 1,200 unit PO DAILY berberine-herbal comb no.18 Capsule 500 cap PO BID ascorbate calcium (vitamin C) 500 mg tablet 1.5 g PO DAILY Humulin N NPH U-100 Insulin 100 unit/mL suspension 30 unit subcut BID 90 Days Qty: 60 3RF (DME) resvertrol 0 .Route .MEDSUPPLY mecobalamin (vitamin B12) 500 mcg tablet,chewable PO (DME) FreeStyle Nilsa 3 Sensor Device See Rx Instructions .Route Qty: 6 1RF Rx Instructions: Test blood sugar 4 times per day alpha lipoic acid 200 mg capsule 200 mg PO BID (DME) Ankle Brace Misc See Rx Instructions .ROUTE .MEDSULY Qty: 1 0RF Rx Instructions: LEFT AFO custom molded for foot drop Custom shoes, diabetic foot Curcumin 95 % powder miscellaneous Interventions: ED Discharge Assessment Last Done: 09/13/24 23:18 Discharge Date/Time: 09/13/24 23:18 Print Language: Other
--- NOTE | 2024-09-13 13:24 | ECG_ITS ---
Test Reason : LIGHTHEADED/SOB Blood Pressure : / mmHG Vent. Rate : 094 BPM Atrial Rate : 094 BPM P-R Int : 158 ms QRS Dur : 086 ms QT Int : 352 ms P-R-T Axes : 043 -38 052 degrees QTc Int : 440 ms Normal sinus rhythm Left axis deviation Low voltage QRS Cannot rule out anterior infarct Abnormal ECG When compared with ECG of 01-AUG-2024 14:09, No significant change was found Referred By: Karuna Clancy Electronically Signed By:Arnold Gunderson
[2024-09-13 14:00] LABS: Hemoglobin 14.7 g/dl (14.0-18.0); Mean Corpuscular HGB Conc 35.9 g/dl (31.0-36.0); Mean Corpuscular Hemoglobin 31.8 pg (27.0-33.0); Mean Corpuscular Volume 88.7 fL (80.0-98.0); Mean Platelet Volume 10.6 fL (9.4-12.4); Platelet Count 450 X10*3/uL (160-400); Red Blood Count 4.62 X10*6/uL (4.60-5.80); Red Cell Distribution Width 13.2 % (11.0-16.0); WBC ABN SCTR FOR CBC 1
[2024-09-13 14:13] LABS: Alanine Aminotransferase 18 U/L (0-40); Albumin Level 4.4 g/dL (3.5-5.0); Alkaline Phosphatase 101 U/L (39-117); Anion Gap 15 (12-20); Aspartate Amino Transferase 27 U/L (5-37); Bilirubin Direct 0.6 mg/dL (0.0-0.5); Bilirubin Total 2.1 mg/dL (0.0-1.0); Blood Urea Nitrogen 21 mg/dL (9-16); Calcium 10.6 mg/dL (8.4-10.2); Carbon Dioxide 26 mmol/L (22-29); Chloride 103 mmol/L (96-108); Creatinine Clr Calc Pharmacy 68.6; Estimated Glomerular Filt Rate > 60; Glucose Random 171 mg/dL (60-115); Potassium 4.2 mmol/L (3.3-5.1); Sodium 140 mmol/L (135-145); Total Protein 8.1 g/dL (6.5-8.0)
[2024-09-13 14:14] LABS: White Blood Count 8.6 X10*3/uL (4.8-10.8)
[2024-09-13 14:15] LABS: B Type Natriuretic Peptide 28 pg/mL (<100)
[2024-09-13 14:16] LABS: Band Neutrophils Percent 0 % (3-5); Lymphocytes Absolute Manual 2.8 X10*3/uL (1.2-4.9); Lymphocytes Percent Manual 32 % (20-40); Monocytes Absolute Manual 0.8 X10*3/uL (0.1-1.2); Monocytes Percent Manual 9 % (2-11); Neutrophils Absolute Manual 5.1 X10*3/uL (2.0-8.3); Neutrophils Percent Manual 59 % (45-73)
[2024-09-13 14:18] LABS: Acanthocytes 3+ (>5) /OIF; Howell Jolly Bodies PRESENT; Platelet Estimate SLIGHTLY INCREASED (NORMAL); Platelet Morphology Comment NORMAL; RBC Morphology NOTED
[2024-09-13 14:37] LABS: Influenza A PCR NEGATIVE (Negative); Influenza B PCR NEGATIVE (Negative); Resp Syncy Virus RNA Qual PCR NEGATIVE (Negative); SARS COV2 PCR INHOUSE NEGATIVE (Negative)
[2024-09-13 14:41] LABS: Troponin-I High Sensitivity 2.8 ng/L (<3.5-35.0)
[2024-09-13 20:33] VITALS: BP 126/68; PULSE 80; RESP 18; TEMP 36.7; O2SAT 100
[2024-09-13 20:35] LABS: Glucose, Whole Blood 115 mg/dL (60-115)
[2024-09-13 22:41] VITALS: BP 120/69; PULSE 79; RESP 16; TEMP 36.4; O2SAT 100
[2024-09-13 23:18] VITALS: BP 120/69; PULSE 79; RESP 16; TEMP 36.4; O2SAT 100
--- OUTSIDE RECORDS SUMMARY | 2024-09-19 19:25 | XMS_ITS | Patient Health Record ---
Author Organization [facility] Address [address] [place] [address] Care Team Providers Care Sand Hauler Name Role Phone Stuart Lozano Primary Care Provider Unav ailable Black, Marychuy Unavailable [phone] Allergies Allergen (clinical drug ingredient) Drug/Non Drug Allergy documented on EMR Reaction Allergy Type Onset Date Status 12 Hour Nasal [place] Unknown Drug Allergy Active Dust Mites Unknown Allergy Active Results Component Value Reference Range Notes HEMOGLOBIN A1C (GLYCOHEMOGLO BIN) Reviewed date:10/21/2023 02:22:22 PM Interpretation: Performing Lab: Notes/Report: HEMOGLOBIN A1C (HH) 5.9 HEMOGLOBIN A1C (GLYCOHEMOGLO BIN) Reviewed date:05/11/2024 03:00:32 PM Interpretation: Performing Lab: Notes/Report: HEMOGLOBIN A1C (HH) 6.0 Reason For Referral No Information Medications Medication SIG (Take, Route, Frequency, Duration) Notes Start Date End Date Status Zinc Active Vitamin C 500 MG as directed Orally O nce a day Active Vitamin D Active HumuLIN N Active Berberine HCI 500 MG as directed Orally Active [place] 3-6-9 Not-Taki ng Aspirin 81 81 MG 1 tablet Orally Once a day Not-Taking Keflex Not-Taking Vitamin B Complex - as directed Orally Active HumaLOG Not-Taking Flax Seed Oil Active Metaform Not-Taking Vitamin E Not-Taking Magnesium Not-Taking Flax Seeds - as directed Orally Not-Taking Lovastatin Not-Takin g Venlafaxine HCl Not- Taking Resveratrol Active Atenolol Not-Taking Vitamin D3 Active Vitamin C & E Complex Not-Taking Timolol Maleate PF N ot-Taking Prevnar 13 Not-Takin g Ascorbic Acid Not-Jacek hensley P04-Stmijx Active Aspirin 81 MG 1 tablet Orally Once a day for 30 day(s) Not-Taking Extra Depth Orthopedic Shoes (1 Pair) with Customized Heat Molded Multidensity Innersoles (3 Pair) as directed Dx: IDDM/Polyneuropathy (E10.42), Hammertoe Foot Deformity (M20.41,M20.42), Preulcerative Skin Lesion(s) (L85.1) 06/02/2018 Not-Taking Multivitamins Not-Ta AFO-Hinged as directed Wear Juli ly for as needed 09/08/2021 Active Nattokinase 100 MG as directed Orally Not-Taking Turmeric Active Immunizations Vaccine Route Administration Date Status Comme nts Influenza Unknown 03/11/2017 Refused Patient refuse s Pneumococcal Unknown 12/27/2017 Administered Social History Tobacco Use: Social History Observation Description Date Details (start date - stop date) Never Smoker NA - NA Tobacco Use/Smoking Question Answer Notes Are you a: nonsmoker Additional Findings: Tobacco Non-User Current no n-smoker Alcohol Screen Question Answer Notes Did you have a drink containing alcohol in the p ast year? No Points 0 Interpretation Negative Tobacco use other than smoking: Question Answer Notes Are you an other tobacco user? No Section Notes: Pt declined flu shot Eye exam, Dr Tucker Pt declined flu shot Eye exam, Dr Tucker Pt declined flu shot Eye exam, Dr Tucker Pt declined flu shot Eye exam, Dr Tucker Pt declined flu shot Eye exam, Dr Tucker Pt declined flu shot Eye exam, Dr Tucker Pt declined flu shot Eye exam, Dr Tucker Pt declined flu shot Eye exam, Dr Tucker Pt declined flu shot Eye exam, Dr Tucker Pt declined flu shot Eye exam, Dr Tucker Pt declined flu shot Eye exam, Dr Tucker Pt declined flu shot Eye exam, Dr Tucker Pt declined flu shot Problems Problem Type SNOMED Code ICD Code Onset Dates Problem Status W/U Status Risk Notes Problem Acquired hammer toe of right foot (4638435292293648) Other hammer toe(s) (acquired), right foot (M20.41) Active confirmed Problem Acquired hammer toe of left foot (4822786051281235) Other hammer toe(s) (acquired), left foot (M20.42) Active confirmed Problem Non-pressure ulcer lower limb (691423612) Non-pressure chronic ulcer of other part of right foot limited to breakdown of skin (L97.511) Active confirmed Problem Polyneuropathy due to diabetes mellitus type I (373228632) 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 Problem Hammer toe (252623423) Hammer toe of left foot (M20.42) Active confirmed Problem 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 (339616279909990) Charcot foot due to diabetes mellitus (E11.610) Active confirmed Problem Unsteady gait (20168905) Unsteady gait (R26.81) Active confirmed Problem Ankle ulcer (151769659) Skin ulcer of right ankle, limited to breakdown of skin (L97.311) Active confirmed Problem Ulcer of toe of right foot (disorder) (19476975241250583) Skin ulcer of toe of right foot, limited to breakdown of skin (L97.511) Active confirmed Problem Acquired equinovarus deformity (90877285) 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) Active confirmed Problem 11851541164859719 Skin ulcer of toe of left foot, limited to breakdown of skin (L97.521) Active confirmed Vital Signs Height 5ft 11in in 08/17/2024 Weight 207 lbs 08/17/2024 BMI 28.87 kg/m2 08/17/2024 Procedures Procedure Date Ordered Date Performed Result Body Sit e 23297-RZSMFJK NAIL, 6 OR MORE 10/21/2023 N/A 05209-HUAH SKIN LESIONS, OVER 4 10/21/2023 N/A 90077-HAEPDZO NAIL, 1-5 01/20/2024 N/A 92916-Luyzonwv Plate 01/20/2024 N/A 84105-UTDH SKIN LESIONS, OVER 4 01/20/2024 N/A 45608-YFRWRRG NAIL, 6 OR MORE 05/11/2024 N/A 90487-NQXY SKIN LESIONS, OVER 4 05/11/2024 N/A 90182-RLMSYST NAIL, 1-5 08/17/2024 N/A 57270-Yioxwhjv Plate 08/17/2024 N/A 30028-Ucuhdrqe Plate Each Additional 08/17/2024 N/A 62134-NSFQ SKIN LESIONS, OVER 4 08/17/2024 N/A Encounters Encounter Location Date Provider Diagnosis [address] [address] 10/21/2023 Marychuy Black Type 1 diabetes mellitus with diabetic polyneuropathy E10.42 ; Rupture of extensor tendon of foot S96.819A and Tinea unguium B35.[address] [address] 01/20/2024 Marychuy Black Type 1 diabetes mellitus with diabetic polyneuropathy E10.42 ; Tinea unguium B35.1 and Ingrown nail L60.[address] [address] 05/11/2024 Marychuy Black Type 1 diabetes mellitus with diabetic polyneuropathy E10.42 and Tinea unguium B35.[address] [address] 08/17/2024 Marychuy Black Type 1 diabetes mellitus with diabetic polyneuropathy E10.42 ; Tinea unguium B35.1 ; Ingrown nail L60.0 and Skin ulcer of toe of left foot, limited to breakdown of skin L97.[address] [address] 04/18/2024 Marychuy Black [address] [address] 08/22/2024 Marychuy Black Assessments Encounter Date Diagnosis (ICD Code) Assessment Notes Treatment Notes Treatment Clinical Notes Section Notes 10/21/2023 Type 1 diabetes mellitus with diabetic polyneuropathy (ICD-10 - E10.42) 10/21/2023 Rupture of extensor tendon of foot (ICD-10 - S96.819A) 01/20/2024 Tinea unguium (ICD-10 - B35.1) 01/20/2024 Type 1 diabetes mellitus with diabetic polyneuropathy (ICD-10 - E10.42) 05/11/2024 Tinea unguium (ICD-10 - B35.1) 05/11/2024 Type 1 diabetes mellitus with diabetic polyneuropathy (ICD-10 - E10.42) 08/17/2024 Tinea unguium (ICD-10 - B35.1) 08/17/2024 Type 1 diabetes mellitus with diabetic polyneuropathy (ICD-10 - E10.42) 08/17/2024 Ingrown nail (ICD-10 - L60.0) 01/20/2024 Ingrown nail (ICD-10 - L60.0) 10/21/2023 Tinea unguium (ICD-10 - B35.1) 08/17/2024 Skin ulcer of toe of left foot, limited to breakdown of skin (ICD-10 - L97.521) Plan Of Treatment Pending Test Test Name Order Date Hemoglobin A1c 12/02/2015 32308-WZAORCU NAIL, 6 OR MORE 05/11/2024 95741-ZFASDSL NAIL, 6 OR MORE 07/08/2023 42966-EICOEYS NAIL, 6 OR MORE 10/21/2023 85312-UTNXIWQ NAIL, 6 OR MORE 12/02/2020 69621-HNFIVMW NAIL, 6 OR MORE 03/13/2021 86081-YXLAPDT NAIL, 6 OR MORE 06/09/2021 71673-THGBSII NAIL, 6 OR MORE 09/08/2021 77493-ESVKDXH NAIL, 6 OR MORE 01/30/2022 07459-OOYSKOR NAIL, 6 OR MORE 06/22/2022 46214-UVZPOGO NAIL, 6 OR MORE 09/28/2022 16243-ZLCYHZV NAIL, 6 OR MORE 12/28/2022 63274-OJEPTGQ NAIL, 6 OR MORE 04/05/2023 21939-LYVZHFZ NAIL, 6 OR MORE 10/01/2011 29372-DMRQSMT NAIL, 6 OR MORE 12/03/2011 19272-PSNADCD NAIL, 6 OR MORE 03/03/2012 36082-VHLSLEP NAIL, 6 OR MORE 06/02/2012 14916-HBEKBXQ NAIL, 6 OR MORE 11/03/2012 92843-KJTKIAH NAIL, 6 OR MORE 01/23/2013 48790-MHYPXHO NAIL, 6 OR MORE 04/03/2013 05226-TUQMHWB NAIL, 6 OR MORE 06/28/2013 43076-SGETJIV NAIL, 6 OR MORE 09/13/2013 70840-HGCOHSI NAIL, 6 OR MORE 12/13/2013 12463-RXHTOLR NAIL, 6 OR MORE 03/22/2014 77153-ZCXXVWQ NAIL, 6 OR MORE 06/21/2014 59581-YGPPHLZ NAIL, 6 OR MORE 09/20/2014 76503-UBUGDHB NAIL, 6 OR MORE 12/06/2014 43221-TNXMWXC NAIL, 6 OR MORE 02/21/2015 31159-KVCZTHQ NAIL, 6 OR MORE 05/13/2015 33074-PEXGQIX NAIL, 6 OR MORE 09/09/2015 53367-TRUVKNI NAIL, 6 OR MORE 12/02/2015 74484-CLHVETP NAIL, 6 OR MORE 02/24/2016 67991-YQMXTFY NAIL, 6 OR MORE 06/01/2016 53882-KVJZVWN NAIL, 6 OR MORE 08/27/2016 94262-ILYTSMD NAIL, 6 OR MORE 12/07/2016 91268-JTXSOXF NAIL, 6 OR MORE 03/11/2017 26692-JHBISGS NAIL, 6 OR MORE 06/24/2017 95404-GJMUJDT NAIL, 6 OR MORE 09/27/2017 82113-ZFCOYMI NAIL, 6 OR MORE 12/27/2017 12841-ECLOTLR NAIL, 6 OR MORE 06/02/2018 92091-BRHVIUN NAIL, 6 OR MORE 08/25/2018 97145-QGWQOOI NAIL, 6 OR MORE 11/24/2018 06705-PBCQVQL NAIL, 6 OR MORE 03/09/2019 81412-AENDCFI NAIL, 6 OR MORE 06/05/2019 63643-PLDIONT NAIL, 6 OR MORE 09/18/2019 10961-QZLWTWV NAIL, 6 OR MORE 03/11/2020 65855-NFSVDXP NAIL, 6 OR MORE 06/13/2020 80787-JXVEWVK NAIL, 6 OR MORE 09/23/2020 14883-GVWZPGU NAIL, 1-5 01/20/2024 50767-TMLGHOM NAIL, 1-5 08/17/2024 18322-Kdhr Destruction, 1-14 09/08/2021 74694-Ctul Destruction, -14 06/09/2021 84701-Mgtk Destruction, -14 03/11/2020 80355-Gqes Destruction, -14 06/05/2019 63156-Iswh Destruction, 10-2409/18/2019 34987-Otxy Destruction, 10-2403/09/2019 92476-Ksxe Destruction, 10-2405/13/2015 94986-Uden Destruction, 10-2402/21/2015 32907-Kyst Destruction, 10-2412/06/2014 85570-Ksyp Destruction, 10-2409/20/2014 49816-Svgs Destruction, 10-2406/21/2014 96585-Ziqw Destruction, 10-2403/22/2014 55812-Gqgo Destruction, 10-2412/13/2013 85039-Zfum Destruction, 10-2409/13/2013 00271-Xksx Destruction, 10-2406/28/2013 09191-Sxvj Destruction, 10-2404/03/2013 28050-Euur Destruction, 10-2401/23/2013 84530-Babt Destruction, 10-2411/03/2012 39498-Xwct Destruction, 10-2406/02/2012 39547-Dfsl Destruction, 10-2410/01/2011 78800-Bkdn Destruction, 10-2403/03/2012 30747-Kfsk Destruction, 10-2412/03/2011 51379-Vvkvjpoz Plate 03/03/2012 67759-Hilbqvgn Plate 12/03/2011 68985-Qcvjnjfy Plate 06/02/2012 69731-Uncytfuw Plate 01/23/2013 84524-Tpiczooh Plate 04/03/2013 32100-Iaszkgie Plate 06/28/2013 00489-Ugkmdoas Plate 09/13/2013 09742-Fvtmvqdh Plate 12/13/2013 85530-Dbidvcqk Plate 03/22/2014 66537-Iidvaigc Plate 06/21/2014 00176-Byluzatx Plate 09/20/2014 70228-Rjeebmze Plate 12/06/2014 30647-Zbqjpuxw Plate 02/21/2015 98427-Imdnefmn Plate 05/13/2015 83345-Ohvlumof Plate 12/27/2017 42144-Pmxseveu Plate 06/05/2019 78096-Fuaxtmqc Plate 11/24/2018 05861-Qdvvehvp Plate 03/09/2019 64085-Jlyeklrg Plate 08/25/2018 50866-Efepfkcq Plate 09/18/2019 58767-Lravxmox Plate 03/11/2020 23906-Fmyuglbh Plate 09/27/2017 13967-Hqhyawfq Plate 12/07/2016 17503-Wyiceqel Plate 08/27/2016 66932-Efhymsyh Plate 06/01/2016 32024-Uwiiwfdg Plate 02/24/2016 38876-Ornzufhy Plate 12/02/2015 59069-Ptpaishn Plate 11/03/2012 37533-Urbzrgbx Plate 09/09/2015 08471-Tmbejozv Plate 06/09/2021 56304-Nylhtxwg Plate 06/13/2020 02855-Bkdtjzis Plate 09/08/2021 55296-Qbtsdykw Plate 03/13/2021 77866-Dysbjwcx Plate 09/23/2020 64237-Dvwtadtk Plate 01/30/2022 71105-Ufvjgcsk Plate 06/22/2022 43063-Vhbrmedk Plate 08/17/2024 80653-Xpotlnqt Plate 01/20/2024 91078-Pguzyfwa Plate Each Additional 09/2022 74828-Ifdmvhpz Plate Each Additional 04/2024 45620-Vifmkvcd Plate Each Additional 94961-Lcfqfgab Plate Each Additional 64741-Furvatvg Plate Each Additional 12/2020 70450-Ozbakypf Plate Each Additional 89497-Hblhdnrb Plate Each Additional 25889-Mamlcyvx Plate Each Additional 17640-Zpjgvbsv Plate Each Additional 76090-Glbkeixu Plate Each Additional 29952-Opxwipgn Plate Each Additional 61163-Bwrlrpef Plate Each Additional 68117-Zujdasha Plate Each Additional 81241-Brhbhhlj Plate Each Additional 75156-Pelkgxwi Plate Each Additional 06/2019 26479-Yudfzkxz Plate Each Additional 10/2019 53395-Opxzdowm Plate Each Additional 68219-Pvwdhojd Plate Each Additional 45680-Rykfkyxr Plate Each Additional 36201-Rolrvifj Plate Each Additional 12/2014 75354-Qbppvzml Plate Each Additional 82171-Iilbwvsl Plate Each Additional 48845-Cohkoktz Plate Each Additional 08/2014 04304-Ixlypknh Plate Each Additional 08/2014 70862-Kodwosme Plate Each Additional 09/2014 19584-Xiorjyzy Plate Each Additional 02/2014 62617-Aavcncnr Plate Each Additional 01/2013 06535-Gilegbfx Plate Each Additional 59665-Tysjdlcm Plate Each Additional 64836-Fmhxeody Plate Each Additional 95376-Emlbhsju Plate Each Additional 15399-Eueyfkwn Plate Each Additional 52842- Debride <25 sq cm 06/13/2020 86001- Debride <25 sq cm 04/05/2023 99632 I&D ABSCESS- SIMPLE,SINGLE 013 16101 I&D ABSCESS- SIMPLE,SINGLE 013 12826-VRAE SKIN LESIONS, OVER 4 01/24/20 13 91156-EOPW SKIN LESIONS, OVER 4 11/03/19 13 87482-AXEC SKIN LESIONS, OVER 4 04/03/20 13 05949-XBAQ SKIN LESIONS, OVER 4 06/28/20 13 77403-ZPDJ SKIN LESIONS, OVER 4 09/13/20 13 16527-ZCAQ SKIN LESIONS, OVER 4 12/14/19 14 22737-MDYR SKIN LESIONS, OVER 4 03/22/20 14 95140-IYLA SKIN LESIONS, OVER 4 06/21/20 14 92312-NGAS SKIN LESIONS, OVER 4 09/20/20 14 20229-KIOH SKIN LESIONS, OVER 4 12/06/19 15 18291-MCWQ SKIN LESIONS, OVER 4 02/22/20 15 07695-CCJI SKIN LESIONS, OVER 4 05/13/20 15 33918-MITV SKIN LESIONS, OVER 4 06/13/20 20 00039-AFCD SKIN LESIONS, OVER 4 09/23/20 20 57085-RBRX SKIN LESIONS, OVER 4 03/11/20 20 95396-GKKX SKIN LESIONS, OVER 4 09/18/20 19 30839-VQUN SKIN LESIONS, OVER 4 03/09/20 19 49701-EYUN SKIN LESIONS, OVER 4 06/05/20 19 42538-TCBK SKIN LESIONS, OVER 4 11/24/19 19 85095-RFUH SKIN LESIONS, OVER 4 08/25/20 18 87115-FMQR SKIN LESIONS, OVER 4 12/28/19 18 96966-GDIV SKIN LESIONS, OVER 4 06/02/20 18 18434-ARDE SKIN LESIONS, OVER 4 09/27/20 17 54104-MIRL SKIN LESIONS, OVER 4 06/24/20 17 40352-ZQEX SKIN LESIONS, OVER 4 12/07/19 17 12954-JOGT SKIN LESIONS, OVER 4 03/11/20 17 33201-BSEG SKIN LESIONS, OVER 4 08/27/20 16 59679-AJUY SKIN LESIONS, OVER 4 06/01/20 16 81757-MEJZ SKIN LESIONS, OVER 4 02/24/20 16 88521-ZETV SKIN LESIONS, OVER 4 12/02/19 16 03746-GXAG SKIN LESIONS, OVER 4 09/09/20 15 00525-BCJI SKIN LESIONS, OVER 4 04/05/20 23 72748-BDYG SKIN LESIONS, OVER 4 07/08/20 23 34083-TIMR SKIN LESIONS, OVER 4 12/29/19 23 81057-OUQV SKIN LESIONS, OVER 4 09/28/20 22 33168-HGAH SKIN LESIONS, OVER 4 06/22/20 22 20030-WJDC SKIN LESIONS, OVER 4 01/31/20 22 53400-ISAI SKIN LESIONS, OVER 4 09/08/20 21 71938-BZZB SKIN LESIONS, OVER 4 06/09/20 21 02038-PFXG SKIN LESIONS, OVER 4 12/02/19 21 29240-KZGN SKIN LESIONS, OVER 4 03/13/20 21 15080-JKGH SKIN LESIONS, OVER 4 08/17/20 24 08435-KXIU SKIN LESIONS, OVER 4 05/11/20 24 52452-UFNP SKIN LESIONS, OVER 4 01/20/20 24 92351-JWHZ SKIN LESIONS, OVER 4 10/21/19 24 28641-DVMH SKIN LESIONS, 2 TO 4 06/02/20 12 73326-SRIZ SKIN LESIONS, 2 TO 4 03/03/20 12 24252-ENKZ SKIN LESIONS, 2 TO 4 12/03/19 12 81003-FBWH SKIN LESIONS, 2 TO 4 10/01/20 11 Next Appt Details Provider Name:Marychuy Kelley , 11/23/2024 02:00:00 PM, [address] [facility], [place], [address], Insurance Providers Payer Name Payer Address Payer Phone Subscriber Number Group Number Insured Name Patient Relationship to Insured Coverage Start Date Coverage End Date [facility] [id number] [place] [id number] [id number] Casey Ulrich Self - patient is the insured 2 Medical (General) History Medical History History ICD Code angina transfusions neuropathy mumps measles Gout fibromyalgia diabetic depression back, hip, knee pain asthma Arthritis Anxiety disorder Left Foot Drop Irritable bowel syndrome Surgical History Surgery Date(Month/Year) amputation of foot total(partial) 2002 cholecystectomy 1975 splenectomy 1975 tonsillectomy 1950 colonoscopy 07/31/19 kidney stones- 4 removed- left kidney- r enal scan - kidney disease 04/2020 Hospitalization History Reason Date(Month/Year) [facility]- Possible Heart Attack/Stress Anxiet y/Covid 07/31 [facility]- Bladder Scan [facility]- [facility] Scan [facility]- chest pain 10/31 [facility]- Pressure wound right ankle - saw levar bonilla [facility]- chest pain 10/2015
--- OUTSIDE RECORDS SUMMARY | 2024-09-19 19:25 | XMS_ITS ---
Author Organization [facility] Address [address] [place] [address] Care Team Providers Care Seo Specialist Name Role Phone MARC HERNANDEZ Primary Care Provider Ernesto Beck [phone] REASON FOR VISIT screening, hx polyps,hx colon ca Encounters Encounter Location Date Provider Diagnosis [facility] Outpatient [address] [place] [phone] 06/21/2024 Ernesto Wu PLAN OF TREATMENT Next Appt Details Provider Name:Ernesto Wu , 10/09/2024 07:30:00 AM, [address] [place] [address], [phone],
--- OUTSIDE RECORDS SUMMARY | 2024-09-19 19:25 | XMS_ITS ---
Author Organization [facility] Address [address] [place] [address] Care Team Providers Care Syrup Maker Cook Name Role Phone MARC HERNANDEZ Primary Care Provider Ernesto Beck Unavailable [phone] ALLERGIES No Known Allergies REASON FOR VISIT Patient presents today for a colon recall MEDICATIONS Medication SIG (Take, Route, Frequency, Duration) Notes Start Date End Date Status BD Insulin Syringe U/F 30G X 1/2 1 ML USE TO INJECT INSULIN TWICE PER DAY for 90 Active Brimonidine Tartrate 0.2 % Ophthalmic for 56 Active Timolol Maleate 0.5 % PLACE ONE DROP INT O BOTH EYES TWICE A DAY Ophthalmic for 56 Active Latanoprost 0.005 % APPLY ONE DROP TO EA CH EYES IN THE EVENING Ophthalmic for 90 Active Ibuprofen PRN Not-Taking Dicyclomine HCl 10 MG 1 or 2 capsules Or ally Every 6 hours as needed for abdominal discomfort/cramps for 30 day(s) 10/17/2023 Active Cephalexin 500 MG TAKE 1 CAPSULE BY [facility] TWICE A DAY FOR 10 DAYS Oral for 10 Active Contour Test - In Vitro for 90 Active Vitamin D 1000 UNIT 1 tablet Orally Once a day for 30 day(s) Active Zinc 50 MG 1 capsule Orally Onc e a day for 30 day(s) Active Vitamin B Complex - as directed Orally o nce a day Active HumuLIN N 100 UNIT/ML 15-20 units as dir ected Subcutaneous BID Active IMMUNIZATIONS Vaccine Route Administration Date Status Comme nts Influenza Unknown 03/08/2024 Refused SOCIAL HISTORY Tobacco Use: Social History Observation Description Date Details (start date - stop date) Never Smoker NA - NA Sex Assigned At : Social History Observation Description Sex Assigned At Unknown Tobacco Use/Smoking Question Answer Notes Patient is a nonsmoker Alcohol Screen Question Answer Notes Did you have a drink containing alcohol in the p ast year? No Points 0 Interpretation Negative VITAL SIGNS BMI 29.43 kg/m2 03/08/2024 Blood pressure systolic 000 mm Hg 03/08/20 24 Blood pressure diastolic 00 mm Hg 024 Height 71.5 in 03/08/2024 Temperature 97.7 degrees Fahrenheit 03/08/20 24 Weight 214 lbs 03/08/2024 Encounters Encounter Location Date Provider Diagnosis [facility] [address] [place] [address] 03/08/2024 Ernesto Wu History of adenomato us polyp of colon Z86.010 ; Preprocedural examination Z01.818 ; Encounter for screening for malignant neoplasm of colon Z12.11 ; History of colon cancer Z85.038 and Constipation, unspecified constipation type K59.00 ASSESSMENTS Encounter Date Diagnosis Assessment Notes Treatment Notes Treatment Clinical Notes 03/08/2024 History of adenomatous polyp of colon (ICD-10 - Z86.010) 03/08/2024 Preprocedural examination (ICD-10 - Z01.818) 03/08/2024 Encounter for screening for malignant neoplasm of colon (ICD-10 - Z12.11) Have your Insulin adjusted by your PCP for the two days while you're prepping before the colonoscopy 03/08/2024 History of colon cancer (ICD-10 - Z85.038) 03/08/2024 Constipation, unspecified constipation type (ICD-10 - K59.00) PLAN OF TREATMENT Treatment Notes Assessment Notes Encounter for screening for malignant neoplasm of colon Have your Insulin adjusted by your PCP f or the two days while you're prepping before the colonoscopy Future Test Test Name Order Date COLONOSCOPY 03/08/2024 Next Appt Details Follow Up: prn, Reason: Provider Name:Ernesto Wu , 10/09/2024 07:30:00 AM, [address] [place] [address] , [place], [place], [phone], Progress Notes * Examination Category Sub-Category Detail Notes General Examination GENERAL APPEARANCE: pleasant , well nourished, well developed, in no acute distress HEAD: EYES: sclera non-icteric EARS: NOSE: THROAT: NECK/THYROID: no cervical lymphade nopathy, neck supple HEART: S1, S2 normal CHEST: LUNGS: clear to auscultatio n bilaterally ABDOMEN: normal bowel sounds, no guarding or rigidity, no guarding or rigidity, no masses palpable, soft, nontender, nondistended NEUROLOGIC: alert and oriented SKIN: nonjaundiced, no spi angela angiomata EXTREMITIES: no edema PERIPHERAL PULSES: BACK: BREASTS: MUSCULOSKELETAL: MALE GENITOURINARY: LYMPH NODES: RECTAL EXAM: FEMALE GENITOURINARY: ORAL CAVITY: mucosa moist
--- OUTSIDE RECORDS SUMMARY | 2024-09-19 19:25 | XMS_ITS ---
Author Organization [facility] Address [address] [place] [address] Care Team Providers Care Preschool Teacher Name Role Phone MARC HERNANDEZ Primary Care Provider Ernesto Beck [phone] REASON FOR VISIT medication change. /procedure end of month/waiting on pt call back Encounters Encounter Location Date Provider Diagnosis [facility] [address] [place] [address] 09/12/2024 Ernesto Wu PLAN OF TREATMENT Next Appt Details Provider Name:Ernesto Wu , 10/09/2024 07:30:00 AM, [address] [place] [address] , [place], [place], [phone],
--- OUTSIDE RECORDS SUMMARY | 2024-09-19 19:25 | XMS_ITS ---
Author Organization [facility] Address [address] [place] [address] Care Team Providers Care Shoe Stock Associate Name Role Phone Stuart Lzoano Primary Care Provider Unav ailable Warren Marychuy Unavailable [phone] Encounters Encounter Location Date Provider Diagnosis [address] [address] 06/13/2024 Marychuy Kelley Plan Of Treatment Next Appt Details Provider Name:Marychuy Kelley , 11/23/2024 02:00:00 PM, [address] [place], [address], Progress Notes * Casey SEWELL KDOB:[birth year] (79 yo M)Acc No.[id number]:06/13/2024 Progress Note Patient:?Casey SEWELL Provider:?Marychuy Kelley DPM :1945???Age:79 Y???Sex:Male David e:06/13/2024 Address:[address] [place] [address] laury [phone] Pcp:IVORY Mattson Subjective: * Chief Complaints: * ??? * Medical History:? Objective: * Vitals:? Assessment: Plan: * Treatment: * Images: * The named appointment provid er may or may not be the originator of this progress note, and it is not deemed complete until electronically signed by the appointment provider. Sign off status: Pending * Provider:?Marychuy Kelley DPM Date:?2023 Generated for Alfredo logan/Lila/Zo on:?09/19/2024 07:25 PM EST
--- OUTSIDE RECORDS SUMMARY | 2024-09-19 19:25 | XMS_ITS ---
Author Organization [facility] Address [address] [place] [address] Care Team Providers Care Media Director Name Role Phone Stuart Lozano Primary Care Provider Unav ailable Black, Marychuy Unavailable [phone] REASON FOR VISIT rx for AFO Encounters Encounter Location Date Provider Diagnosis [facility] [address] [place] [address] 08/22/2024 Marychuy Black Plan Of Treatment Next Appt Details Provider Name:Marychuy Archer Warren , 11/23/2024 02:00:00 PM, [address] [place], [address], Progress Notes * Casey SEWELL KDOB:[birth year] (79 yo M)Acc No.[id number]:08/22/2024 Patient:?Casey SEWELL :1945???Age:79 Y???Sex:Male Address:[address] [place] [address] [place], [phone] * true * Date:? Generated for Printi ng/Fadoeg/eTransmitting on:?09/19/2024 07:24 PM EST
--- OUTSIDE RECORDS SUMMARY | 2024-09-19 19:25 | XMS_ITS ---
Author Organization [facility] [place] Address [address] [place] [address] Care Team Providers Care Glue Line Operator Name Role Phone Stuart Lozano Primary Care Provider Unav ailable Black, Marychuy Unavailable [phone] Allergies Allergen (clinical drug ingredient) Drug/Non Drug Allergy documented on EMR Reaction Allergy Type Onset Date Status 12 Hour Nasal [place] Unknown Drug Allergy Active Dust Mites Unknown Allergy Active REASON FOR VISIT At Risk Footcare, Ingrown nail(s), Open sore Medications Medication SIG (Take, Route, Frequency, Duration) Notes Start Date End Date Status Atenolol Not-Taking Keflex Not-Taking HumaLOG Not-Taking Metaform Not-Taking Vitamin E Not-Taking Venlafaxine HCl Not- Taking Vitamin C & E Complex Not-Taking Prevnar 13 Not-Takin g Ascorbic Acid Not-Jacek hensley Aspirin 81 MG 1 tablet Orally Once a day for 30 day(s) Not-Taking Extra Depth Orthopedic Shoes (1 Pair) with Customized Heat Molded Multidensity Innersoles (3 Pair) as directed Dx: IDDM/Polyneuropathy (E10.42), Hammertoe Foot Deformity (M20.41,M20.42), Preulcerative Skin Lesion(s) (L85.1) 06/02/2018 Not-Taking Multivitamins Not-Jacek hensley AFO-Hinged as directed Wear Juli ly for as needed 09/08/2021 Active Nattokinase 100 MG as directed Orally Not-Taking Turmeric Active Zinc Active Vitamin C 500 MG as directed Orally O nce a day Active Vitamin D Active HumuLIN N Active [place] 3-6-9 Not-Taki ng Berberine HCI 500 MG as directed Orally Active Aspirin 81 81 MG 1 tablet Orally Once a day Not-Taking Vitamin B Complex - as directed Orally Active Flax Seed Oil Active Flax Seeds - as directed Orally Not-Taking Lovastatin Not-Takin g Resveratrol Active Vitamin D3 Active Timolol Maleate PF N ot-Taking Magnesium Not-Taking X45-Jrgrtk Active Social History Tobacco Use: Social History Observation [...] an other tobacco user? No Section Notes: Problems Problem Type SNOMED Code ICD Code Onset Dates Problem Status W/U Status Risk Notes Problem [id number] Skin ulcer of toe of left foot, limited to breakdown of skin (L97.521) Active confirmed Vital Signs Height 5ft 11in in 08/17/2024 Weight 207 lbs 08/17/2024 BMI 28.87 kg/m2 08/17/2024 Procedures Procedure Date Ordered Date Performed Result Body Sit e 43006-TVKIEVV NAIL, 1-5 08/17/2024 N/A 90772-Aasyawxj Plate 08/17/2024 N/A 64932-Efwlfwdh Plate Each Additional 08/17/2024 N/A 54992-LWKP SKIN LESIONS, OVER 4 08/17/2024 N/A Encounters Encounter Location Date Provider Diagnosis [facility] [address] [place] [address] 08/17/2024 Marychuy Black Type 1 diabetes mellitus with diabetic polyneuropathy E10.42 ; Tinea unguium B35.1 ; Ingrown nail L60.0 and Skin ulcer of toe of left foot, limited to breakdown of skin L97.521 Assessments Encounter Date Diagnosis (ICD Code) Assessment Notes Treatment Notes Treatment Clinical Notes Section Notes 08/17/2024 Type 1 diabetes mellitus with diabetic polyneuropathy (ICD-10 - E10.42) 08/17/2024 Tinea unguium (ICD-10 - B35.1) 08/17/2024 Ingrown nail (ICD-10 - L60.0) 08/17/2024 Skin ulcer of toe of left foot, limited to breakdown of skin (ICD-10 - L97.521) Plan Of Treatment Pending Test Test Name Order Date 49949-OIUQRWZ NAIL, 1-5 08/17/2024 10286-Dtkerwdv Plate 08/17/2024 53397-Ymscmlgd Plate Each Additional 04/2024 86656-EOLB SKIN LESIONS, OVER 4 08/17/20 24 Next Appt Details Follow Up: 2 Weeks,prn, Reas on: Provider Name:Marychuy Kelley , 11/23/2024 02:00:00 PM, [address] [place] [address], [phone], Procedure Notes * Category Sub-Category Detail Notes Nail Avulsion Procedure A fine sterile e levator was placed between the eponychium, nail fold, and nail plate to separate the the structures. A sterile nail splitter, and/or sterile 316 blade, was then used to longitudinally section the nail along its entire length through the eponychium to the area under the nail fold. The offending portion of each nail was from the nail bed with a rolling action and then removed with a hemostat. No underlying bone was identified. There was minimal bleeding as hemostasis was achieved through use of either a digital tournaquet or the aforementioned local with epinephrine. A bacitracin sterile dressing was applied. Local wound aftercare instructions were discussed and dispensed. The patient was informed of both conservative and future surgical procedures to prevent recurrence (89576/32) , DIABETES: Matricectomy deferred at this time due to diabetes risk Anesthesia , was deferred - MARQUIS ROPATHY: patient has medically documented neuropathic condition affecting sensation Location , Bilateral nail bor angela , TA , T5 Debride skin< 25 sq cm Open wound NEUROPATH Y: Physician of record performed open wound selective debridement of first 25 sq cm or less, of devitilized necrotic/nonviable soft tissue, fibrin, and exudate extending from the epidermis through the dermis, utilizing sharp dissection with sterile 15 blade, and/or tissue nippers. Hemostasis was controlled through direct pressure. Sterile antibiotic dressing applied, ANESTHESIA was not required due to presence of NEUROPATHY. Post debridement measurements: 3mm x _3 mm x 2 mm. Character of the wound post debridement is stable (27632) Keratoma Treatment Parring or Cutting o f Benign Hyperkeratotic Lesion(s) 85703 ( >4 Lesions) - The Benign hyperkeratotic lesions, as described above were pared, and/or cut utilizing a sterile #15 blade, tissue nippers, and/or dremel Debride Nails 1-5 Procedure: Performance of this nail treatment by a nonprofessional would put this patients foot and overall health at risk. Therefore, debridement to affected nail(s) as described in exam was performed extensively to reduce/remove overall nail length, girth, thickness, subungual debris, and necrotic tissue, by manual and/or electrical means through the use of a nail nipper and/or dremel-type drill grinder, to a more viable healthy nail plate or bed tissue 1-5. Silver nitrate used for any petechial bleeding as necessary. Definitive antifungal treatment options have been reviewed and discussed with the patient. The patient chooses, no pharmaceutical tx - 27631 Progress Notes * Casey SEWELL KDOB:[birth year] (79 yo M)Acc No.[id number]:08/17/2024 Progress Note Patient:?Thomashamlet Casey Barbara Provider:?Marychuy Kelley DPM :1945???Age:79 Y???Sex:Male David e:08/17/2024 Address:[address] [place], [place] [id number] Pcp:IVORY Mattson Subjective: * Chief Complaints: * ???At Risk FootcareIngrown n ail(s)Open sore * HPI: ???At Risk footcare:?Pt States Last PCP Visit:?Date?04/10/2024 ???Skin problems:?Nature:?Open sore.?Location:?Top , 2nd , Left.? * Medical History:? * Surgical History:?amputation of foot total(partial) 2003cholecystectomy 1976splenectomy 1976tonsillectomy 1951colonoscopy 07/31/19kidney stones- 4 removed- left kidney- renal scan - kidney disease 04/2020 * Hospitalization/Major Diagno stic Procedure:?[facility]- chest pain 10/2015C- Pressure wound right ankle - saw minerva bonilla [facility]- chest pain 10/31C- CT Scan [facility]- Bladder Scan [facility]- Possible Heart Attack/Stress Anxiety/Covid 07/31 * Family History:?Mother: dece ased, diagnosed with Family history of arthritis, Unspecified essential hypertension.?Father: , diagnosed with Other malignant neoplasm of unspecified site.?Paternal Grand Mother: cancer.?Siblings: , brother.? * Social History:?Tobacco Use:?Tobacco Use/Smoking?Are you a:?nonsmoker ?Additional Findings: Tobacco Non-User?Current non-smoker ?Tobacco use other than smoking?Are you an other tobacco user??No ???Drugs/Alcohol:?Drugs?Have you used drugs other than those for medical reasons in the past 12 months??No ?Alcohol Screen?Did you have a drink containing alcohol in the past year??No ?Points?0 ?Interpretation?Negative ???Miscellaneous:?no Exercise. ?Occupation: Retired. * Medications:?OfhpydF36-Rpnrx e Vitamin D3 Resveratrol Flax Seed Oil Vitamin B Complex - Tablet as directed Orally Berberine HCI 500 MG Capsule as directed Orally Vitamin D HumuLIN N Zinc Vitamin C 500 MG Capsule as directed Orally Once a dayTurmeric AFO-Hinged as directed Wear DailyTaking D85-Ppyygd Taking Vitamin D3 Taking Resveratrol Taking Flax Seed Oil Taking Vitamin B Complex - Tablet as directed Orally Taking Berberine HCI 500 MG Capsule as directed Orally Taking Vitamin D Taking HumuLIN N Taking Zinc Taking Vitamin C 500 MG Capsule as directed Orally Once a dayTaking Turmeric Taking AFO-Hinged as directed Wear DailyNot-Taking/PRNTimolol Maleate PF Lovastatin Magnesium Flax Seeds - Powder as directed Orally Aspirin 81 81 MG Tablet Delayed Release 1 tablet Orally Once a dayOmega 3-6-9 Nattokinase 100 MG Capsule as directed Orally Extra Depth Orthopedic Shoes (1 Pair) with Customized Heat Molded Multidensity Innersoles (3 Pair) as directed Dx: IDDM/Polyneuropathy (E10.42), Hammertoe Foot Deformity (M20.41,M20.42), Preulcerative Skin Lesion(s) (L85.1)Multivitamins Ascorbic Acid Aspirin 81 MG Tablet Chewable 1 tablet Orally Once a dayVitamin C & E Complex Prevnar 13 Venlafaxine HCl Atenolol Vitamin E HumaLOG Metaform Keflex Medication List reviewed and reconciled with the patientNot-Taking/PRN Timolol Maleate PF Not-Taking/PRN Lovastatin Not- Taking/PRN Magnesium Not-Taking/PRN Flax Seeds - Powder as directed Orally Not-Taking/PRN Aspirin 81 81 MG Tablet Delayed Release 1 tablet Orally Once a dayNot-Taking/PRN [place] 3-6-9 Not-Taking/PRN Nattokinase 100 MG Capsule as directed Orally Not-Taking/PRN Extra Depth Orthopedic Shoes (1 Pair) with Customized Heat Molded Multidensity Innersoles (3 Pair) as directed Dx: IDDM/Polyneuropathy (E10.42), Hammertoe Foot Deformity (M20.41,M20.42), Preulcerative Skin Lesion(s) (L85.1)Not-Taking/PRN Multivitamins Not-Taking/PRN Ascorbic Acid Not-Taking/PRN Aspirin 81 MG Tablet Chewable 1 tablet Orally Once a dayNot-Taking/PRN Vitamin C & E Complex Not-Taking/PRN Prevnar 13 Not-Taking/PRN Venlafaxine HCl Not-Taking/PRN Atenolol Not-Taking/PRN Vitamin E Not-Taking/PRN HumaLOG Not-Taking/PRN Metaform Not-Taking/PRN Keflex Medication List reviewed and reconciled with the patient * Allergies:?12 Hour Nasal Spr ayDust Mitesyes[Allergies Verified] Objective: * Vitals:?Ht: 5ft 11in, Wt:207 , BMI: 28.87, Shoe size:12, BS:140, Ht-cm: 180.34 cm, Wt-k.89 kg. * ???Past Orders: ???Lab:HEMOGLOBIN A1C (GLYCO HEMOGLOBIN) (Order Date - 05/11/2024) (Collection Date - 04/10/2024) ? Value Reference Range ?HEMOGLOBIN A1C (HH) 6.0 * Examination: ???Ophthalmology Referral: ?DIABETES EYE EXAM?Neurological: ?SENSORY:?exam demonstrates. reduced vibration lower extremity, 5.07 monofilament test performed at plantar aspects of 5 varied sites per foot, shows sensation absent, B/L, Pt relates, cont. anesthesia.?Vascular: ?DP PULSES(B):?10/14, B/L.?PT PULSES(B):?10/14, B/L.?Nails: ?NAILS are:?Elongated, overgrown, dystrophic, lytic, greater than 3mm thick, discolored and friable with crumbly malodorous subungual debris, with dull to no pain on palpation due to neuropathy, ?T2, T3, T4, ?T6, .?Dermatologic: ?SKIN FINDINGS:?Skin exam reveals Keratotic lesion(s) located at, SUB MTH (s), 1, B/L, Medial plantar, Midfoot,b/l?Heel(s), b/l.?ULCER:?Dorsal , T1 , LOCATION, SIZE, 8 mm X 4mm X 2mm, BASE, granular, RIM, hyperkeratotic, UNDERMINING, absent, TRACKING, Full thickness breakdown of skin, DRAINAGE, serosanguineous, mild, NECROTIC TISSUE, loosely-adherent, yellow slough, MALODOR, absent, CALOR, absent, ERYTHEMA, absent, PAIN ON PALPATION,absent.?Ingrown Nail: ?INSPECTION:?, Reveals nail incurvation, dull pain on palpation due to neuropathy, groove hypertrophy , Bilateral nail borders , TA , T5.?Orthopedic: ?DIGITAL DEFORMITIES:?Amputation 4,5 rays right.? Assessment: * Assessment: 1.?Tinea unguium - B35.1?2.? Type 1 diabetes mellitus with diabetic polyneuropathy - E10.42?3.?Ingrown nail - L60.0?4.?Skin ulcer of toe of left foot, limited to breakdown of skin - L97.521? Plan: * Treatment: 2.?Type 1 diabetes mellitus with diabetic polyneuropathy?Procedure: 36790-GONB SKIN LESIONS, OVER 4 3.?Ingrown nail?Procedure: 12095-Joyzpvjc Plate ?Procedure: 29714-Eecvfwiq Plate Each Additional * Procedures:?Debride Nails 1-5:?Procedure:?Performance of this nail treatment by a nonprofessional would put this patients foot and overall health at risk. Therefore, debridement to affected nail(s) as described in exam was performed extensively to reduce/remove overall nail length, girth, thickness, subungual debris, and necrotic tissue, by manual and/or electrical means through the use of a nail nipper and/or dremel-type drill grinder, to a more viable healthy nail plate or bed tissue 1-5. Silver nitrate used for any petechial bleeding as necessary. Definitive antifungal treatment options have been reviewed and discussed with the patient. The patient chooses, no pharmaceutical tx - 36905.?Debride skin< 25 sq cm:?Open wound?NEUROPATHY: Physician of record performed open wound selective debridement of first 25 sq cm or less, of devitilized necrotic/nonviable soft tissue, fibrin, and exudate extending from the epidermis through the dermis, utilizing sharp dissection with sterile 15 blade, and/or tissue nippers. Hemostasis was controlled through direct pressure. Sterile antibiotic dressing applied, ANESTHESIA was not required due to presence of NEUROPATHY. Post debridement measurements: 3mm x _3 mm x 2 mm. Character of the wound post debridement is stable (66472).?Keratoma Treatment:?Parring or Cutting of Benign Hyperkeratotic Lesion(s)?47322 ( >4 Lesions) - The Benign hyperkeratotic lesions, as described above were pared, and/or cut utilizing a sterile #15 blade, tissue nippers, and/or dremel.?Nail Avulsion:?Location?, Bilateral nail border , TA , T5.?Anesthesia?, was deferred - NEUROPATHY: patient has medically documented neuropathic condition affecting sensation.?Procedure?A fine sterile elevator was placed between the eponychium, nail fold, and nail plate to separate the the structures. A sterile nail splitter, and/or sterile 316 blade, was then used to longitudinally section the nail along its entire length through the eponychium to the area under the nail fold. The offending portion of each nail was from the nail bed with a rolling action and then removed with a hemostat. No underlying bone was identified. There was minimal bleeding as hemostasis was achieved through use of either a digital tournaquet or the aforementioned local with epinephrine. A bacitracin sterile dressing was applied. Local wound aftercare instructions were discussed and dispensed. The patient was informed of both conservative and future surgical procedures to prevent recurrence (36705/32) , DIABETES: Matricectomy deferred at this time due to diabetes risk.? * Procedure Codes:?18135 TRIM SKIN LESIONS, OVER 4, Modifiers: XS 24291 Avulsion Plate, [place]: [place] [address]553 Avulsion Plate Each Additional, Modifiers: T5 50071 DEBRIDE NAIL, 1-5, Modifiers: XS 55533 ACTIVE WOUND CARE/20 CM OR <, Modifiers: T1 * Preventive Medicine:? ??Counseling:?Ulcer:?A detailed plan of care was reviewed with the patient. We emphasized the fact that the patient takes on an active participating role in the treatment process and emphasized to them that they are an included, valued, and important member of the wound healing team in order to reach an expedient successful outcome. The patient agreed to follow their medically recommended diet while increasing their protein intake if safely able to do so, maintain proper bodily hydaration, abide by weight-bearing restrictions at all times, quit all current smoking habits if any, and diligently follow any/all dressing change instructions. It was clearly made known to the patient that if they fail to do their part, they will likely extend their course of treatment as well as possibly increase their risk of adverse events including amputation. The patient was instructed on importance of proper wound care consisting of pressure reduction, and proper maintainance of a moist wound environment. The patient is to cleanse the wound with warm soapy water/peroxide/saline, or betadine BID based on product availability. The patient is to apply ( Neosporin, Polysporin, or Triple, ) Antibiotic to the wound and cover with a DSD as directed. The patient was instructed to change dressings according to orders, or PRN saturation, leaks. The patient was instructed to monitor and report any signs or symptoms of infection or any untoward reactions. Precautions Taken: Offloading/Pressure reduction via rest/ limited activity to essential to daily life only, cane/ crutches/ walker/ knee scooter/ wheel chair, shoe modification, accommodative padding, sharp debridement, and take/apply medication as directed. THE GOALS of wound debridement to remove devitilized tissue, decrease risk for infection, promote wound healing and prevent further complication were discussed/reviewed. Debridement frequency as indicated, Every 3-4 weeks until healed.? * Follow Up:?2 Weeks,prn * Images: * Sign off status: Completed true * Provider:?Marychuy Kelley DPM Date:?2023 Generated for Alfredo logan/Lila/Zo on:?09/19/2024 07:24 PM EST History and Physical Notes * HPI (History of Present Illness) Category Sub-Category Detail Notes Category Not es Skin problems Nature: Open sore Location: Top , 2nd , Left At Risk footcare Pt States Last PCP Visit: Date: 4 Examination Category Sub-Category Detail Notes Category Not es Ingrown Nail INSPECTION: , Reveals nail i ncurvation, dull pain on palpation due to neuropathy, groove hypertrophy , Bilateral nail borders , TA , T5 Neurological SENSORY: exam demonstrate s. reduced vibration lower extremity, 5.07 monofilament test performed at plantar aspects of 5 varied sites per foot, shows sensation absent, B/L, Pt relates, cont. anesthesia Dermatologic SKIN FINDINGS: Skin exam reveal s Keratotic lesion(s) located at, SUB MTH (s), 1, B/L, Medial plantar, Midfoot,b/l Heel(s), b/l ULCER: Dorsal , T1 , LOCATI ON, SIZE, 8 mm X 4mm X 2mm, BASE, granular, RIM, hyperkeratotic, UNDERMINING, absent, TRACKING, Full thickness breakdown of skin, DRAINAGE, serosanguineous, mild, NECROTIC TISSUE, loosely-adherent, yellow slough, MALODOR, absent, CALOR, absent, ERYTHEMA, absent, PAIN ON PALPATION,absent Orthopedic DIGITAL DEFORMITIES: Amputation 4,5 rays right Ophthalmology Referral DIABETES EYE EXAM Diabetic Retinopa thy Screening:: No Findings of Diabetic Eye Exam:: no retin opathy Vascular DP PULSES(B): 1/4, B/L PT PULSES(B): 1/4, B/L TROPHIC CONDITION-TEXTURE/ELASTICITY/TUR GOR/HAIR GROWTH(B): EDEMA(C): PIGMENTATION: Nails NAILS are: Elongated, overg rown, dystrophic, lytic, greater than 3mm thick, discolored and friable with crumbly malodorous subungual debris, with dull to no pain on palpation due to neuropathy, T2, T3, T4, T6,
--- OUTSIDE RECORDS SUMMARY | 2024-09-19 19:26 | XMS_ITS | Patient Health Record ---
Author Organization [facility] Address [address] [place] [address] Care Team Providers Care Profile Grinder Name Role Phone MARC HERNANDEZ Primary Care Provider Ernesto Beck [phone] ALLERGIES No Known Allergies REASON FOR REFERRAL No Information MEDICATIONS Medication SIG (Take, Route, Frequency, Duration) Notes Start Date End Date Status Dicyclomine HCl 10 MG 1 or 2 capsules Or ally Every 6 hours as needed for abdominal discomfort/cramps for 30 day(s) 10/17/2023 Active Cephalexin 500 MG TAKE 1 CAPSULE BY [facility] TWICE A DAY FOR 10 DAYS Oral for 10 Active Contour Test - In Vitro for 90 Active BD Insulin Syringe U/F 30G X 1/2 1 ML USE TO INJECT INSULIN TWICE PER DAY for 90 Active Vitamin B Complex - as directed Orally o nce a day Active Vitamin D 1000 UNIT 1 tablet Orally Once a day for 30 day(s) Active Zinc 50 MG 1 capsule Orally Onc e a day for 30 day(s) Active Brimonidine Tartrate 0.2 % Ophthalmic for 56 Active Timolol Maleate 0.5 % PLACE ONE DROP INT O BOTH EYES TWICE A DAY Ophthalmic for 56 Active Latanoprost 0.005 % APPLY ONE DROP TO EA CH EYES IN THE EVENING Ophthalmic for 90 Active HumuLIN N 100 UNIT/ML 15-20 units as dir ected Subcutaneous BID Active Ibuprofen PRN Not-Taking IMMUNIZATIONS Vaccine Route Administration Date Status Comme nts Influenza Unknown 02/23/2019 Administered Influenza Unknown 01/29/2022 Refused Influenza Unknown 03/08/2024 Refused SOCIAL HISTORY Tobacco [...] ast year? 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 260303703 Problem History of colon cancer (Z85.038) Active confirmed 616035906 Problem Constipation, unspecified constipation type (K59.00) Active confirmed 88389262 Problem Diverticulosis of colon (K57.30) Active confirmed Diverticulosi s of colon (095554473) Problem Hx of Billroth II operation (Z98.0) Active confirmed History of gastrointestinal tract bypass (358116916) VITAL SIGNS Temperature 97.7 degrees Fahrenheit 03/08/2024 Blood pressure diastolic 00 mm Hg 03/08/2024 Height 71.5 in 03/08/2024 Blood pressure systolic 000 mm Hg 03/08/2024 Weight 214 lbs 03/08/2024 BMI 29.43 kg/m2 03/08/2024 Encounters Encounter Location Date Provider Diagnosis [facility] [address] [place], [place] [phone] 06/21/2024 Ernesto Wu [facility] [address] [place] [phone] 03/08/2024 Ernesto Wu History of adenomato us polyp of colon Z86.010 ; Preprocedural examination Z01.818 ; Encounter for screening for malignant neoplasm of colon Z12.11 ; History of colon cancer Z85.038 and Constipation, unspecified constipation type K59.00 [facility] [address] [place] [phone] 10/15/2023 Ernesto Wu [facility] [address] [place] [phone] 09/12/2024 Ernesto Wu ASSESSMENTS Encounter Date Diagnosis Assessment Notes Treatment [...] type (ICD-10 - K59.00) PLAN OF TREATMENT Future Test Test Name Order Date COLONOSCOPY 02/23/2019 COLONOSCOPY 07/03/2020 COLONOSCOPY 01/29/2022 COLONOSCOPY 03/08/2024 Next Appt Details Provider Name:Ernesto Meyer Bryce , 10/09/2024 07:30:00 AM, [address] [place] [address] , [place], [place], [phone], Insurance Providers Payer Name Payer Address Payer Phone Subscriber Number Group Number Insured Name Patient Relationship to Insured Coverage Start Date Coverage End Date [facility] [address] [place], [place] [id number] MELISSA ELDER Self - patient is the insured MEDICAL (GENERAL) HISTORY Medical History History ICD Code Denies [place],CVA,Lung disease,renal disease IDDM Pulmonary sarcoidosis--inactive Spherocytosis Colonoscopy in 2009--1 tubular adenoma r emoved, diverticulosis Spinal stenosis Peripheral neuropathy Kidney stones - 4 removed 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 Rivero for the colon cancer Right ureteral surgery for stones with Jazlyn Liriano at [facility]
== END 2024-09-13 23:18 | disposition home or self-care (01) ==
PROVIDERS: Physician Assistant; Emergency Provider Internal Medicine; PCP Nurse Practitioner Family
DX: R53.1 Weakness (principal); U09.9 Post COVID-19 condition, unspecified; R06.02 Shortness of breath; E11.9 Type 2 diabetes mellitus without complications; Z79.4 Long term (current) use of insulin; Z79.899 Other long term (current) drug therapy
CPT/HCPCS: 0241U; 71046; 80048; 80076; 82947; 83735; 83880; 84484; 85007; 85025; 85027; 93005; 99283; 99284

== ENCOUNTER → 2024-09-13 13:24 | Outpatient (BNV) | payer BC, SELFPAY | PROVIDERS: PCP Nurse Practitioner Family; Visit Provider Radiology Diagnostic Radiology | DX: R06.02 Shortness of breath (principal) | CPT/HCPCS: 71046 ==

== ENCOUNTER → 2024-09-13 13:24 | Outpatient (BNV) | payer MEDICARE, BC, SELFPAY | PROVIDERS: Emergency Provider Internal Medicine; PCP Nurse Practitioner Family; Visit Provider Internal Medicine Cardiovascular Disease | DX: R06.02 Shortness of breath (principal) | CPT/HCPCS: 93010 ==

== ENCOUNTER 2024-09-15 11:47 | Outpatient (REF) | payer BC, SELFPAY ==
[2024-09-15 12:57] LABS: MANUAL DIFF FLAG NO
[2024-09-15 13:57] LABS: Alanine Aminotransferase 18 U/L (0-40); Albumin Level 4.1 g/dL (3.5-5.0); Alkaline Phosphatase 93 U/L (39-117); Anion Gap 14 (12-20); Aspartate Amino Transferase 28 U/L (5-37); Basophils Absolute Auto 0.1 X10*3/uL (0.0-0.2); Basophils Percent Auto 1.2 % (0-2); Blood Urea Nitrogen 21 mg/dL (9-16); Calcium 10.3 mg/dL (8.4-10.2); Carbon Dioxide 24 mmol/L (22-29); Chloride 106 mmol/L (96-108); Eosinophils Absolute Auto 0.1 X10*3/uL (0.0-0.4); Eosinophils Percent Auto 1.6 % (0-4); Estimated Glomerular Filt Rate > 60; Glucose Random 117 mg/dL (60-115); Hematocrit 40.5 % (42.0-52.0); Hemoglobin 14.5 g/dl (14.0-18.0); Imm Gran Abs Auto 0.04 X10*3/uL (0.00-0.03); Imm Gran Pct Auto 0.5 % (0.0-0.4); Iron 181 mcg/dL (45-160); Lymphocytes Absolute Auto 1.7 X10*3/uL (1.2-4.9); Mean Corpuscular HGB Conc 35.8 g/dl (31.0-36.0); Mean Corpuscular Volume 89.4 fL (80.0-98.0); Mean Platelet Volume 11.4 fL (9.4-12.4); Monocytes Absolute Auto 0.8 X10*3/uL (0.1-1.2); Monocytes Percent Auto 10.7 % (2-11); Neutrophils Absolute Auto 4.6 x10*3/uL (2.0-8.3); Percent Iron Saturation 74 % (15-50); Platelet Count 390 X10*3/uL (160-400); Potassium 3.8 mmol/L (3.3-5.1); RET ABN SCTR 1; Red Blood Count 4.53 X10*6/uL (4.60-5.80); Red Cell Distribution Width 13.2 % (11.0-16.0); Retic HGB Equivalent 33.6 pg (30.0-35.0); Reticulocytes Absolute 0.093 X10*6/uL (0.026-0.095); Sodium 140 mmol/L (135-145); Total Iron Binding Capacity 246 mcg/dL (228-428); Total Protein 7.7 g/dL (6.5-8.0); Unsaturated Iron Binding 65 ug/dL; White Blood Count 7.3 X10*3/uL (4.8-10.8)
[2024-09-15 13:58] LABS: Reticulocyte Percent 2.1 % (0.5-1.8)
[2024-09-15 14:05] LABS: Lactate Dehydrogenase 255 U/L (118-273)
[2024-09-15 14:14] LABS: Ferritin 135 ng/mL (20-250)
[2024-09-15 14:23] LABS: Folate 16.1 ng/mL (> or = 4.0); Vitamin B12 689 pg/mL (200-900)
[2024-09-15 16:01] LABS: Appearance Urine Clear; Color Urine Dark Yellow; Glucose Urine UA Negative (Negative); Leukocyte Esterase Urine Negative (Negative); Nitrite Urine Negative (Negative); Specific Gravity - Urine 1.015 (1.005-1.025); Urine Blood Negative (Negative); Urine Ketones Trace mg/dL (Negative); Urine Protein Negative (Neg-Trace)
--- OUTSIDE RECORDS SUMMARY | 2024-09-20 08:05 | XMS_ITS | Patient Health Record ---
Author Organization [facility] Address [address] [place] [address] Care Team Providers Care House Carpenter Helper Name Role Phone MARC HERNANDEZ Primary Care Provider Ernesto Beck [phone] ALLERGIES No Known Allergies REASON FOR REFERRAL No Information MEDICATIONS Medication SIG (Take, Route, Frequency, Duration) Notes Start Date End Date Status Dicyclomine HCl 10 MG 1 or 2 capsules Or ally Every 6 hours as needed for abdominal discomfort/cramps for 30 day(s) 10/17/2023 Active Cephalexin 500 MG TAKE 1 CAPSULE BY [facility] TWICE A DAY FOR 10 DAYS Oral [...] adenomatous polyp of colon (Z86.010) Active confirmed 379109113 Problem Encounter for screening for malignant neoplasm of colon (Z12.11) Active confirmed 213243802 Problem Preprocedural examination (Z01.818) Active confirmed 227350912341056 Problem 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 809568701 Problem History of colon cancer (Z85.038) Active confirmed 947936318 Problem Constipation, unspecified constipation type (K59.00) Active confirmed 89702618 Problem Diverticulosis of colon (K57.30) Active confirmed Diverticulosi s of colon (611193963) Problem Hx of Billroth II operation (Z98.0) Active confirmed History of gastrointestinal tract bypass (976369808) VITAL SIGNS Temperature 97.7 degrees Fahrenheit 03/08/2024 Blood pressure diastolic 00 mm Hg 03/08/2024 Height 71.5 in 03/08/2024 Blood pressure systolic 000 mm Hg 03/08/2024 Weight 214 lbs 03/08/2024 BMI 29.43 kg/m2 03/08/2024 Encounters Encounter Location Date Provider Diagnosis [facility] [place] [address] [place] [phone] 06/21/2024 Ernesto Wu [facility] [address] [place] [phone] 03/08/2024 Ernesto Wu History of adenomato us polyp of colon Z86.010 ; Preprocedural examination Z01.818 ; Encounter for screening for malignant neoplasm of colon Z12.11 ; History of colon cancer Z85.038 and Constipation, unspecified constipation type K59.00 [facility] [address] [place] [phone] 10/15/2023 Ernesto Wu [facility] [address] [place] [phone] 09/12/2024 Ernesto Wu ASSESSMENTS Encounter Date Diagnosis [...] Name:Ernesto Meyer Bryce , 10/09/2024 07:30:00 AM, [address] [place] [address] , [place], [place], [phone], Insurance Providers Payer Name Payer Address Payer Phone Subscriber Number Group Number Insured Name Patient Relationship to Insured Coverage Start Date Coverage End Date [facility] [address] [place], [place] [id number] MELISSA ELDER Self - patient is the insured MEDICAL (GENERAL) HISTORY Medical History History ICD Code Denies AR,CVA,Lung disease,renal disease IDDM Pulmonary sarcoidosis--inactive Spherocytosis Colonoscopy [...] surgery for stones with Jazlyn Liriano at [facility]
--- OUTSIDE RECORDS SUMMARY | 2024-09-20 08:05 | XMS_ITS ---
Author Organization [facility] Address [address] [place] [address] Care Team Providers Care Service Learning Coordinator Name Role Phone MARC HERNANDEZ Primary Care Provider Ernesto Beck Unavailable [phone] ALLERGIES No Known Allergies REASON FOR VISIT [...] Cephalexin 500 MG TAKE 1 CAPSULE BY [facility] TWICE A DAY FOR 10 DAYS [...] 03/08/2024 Encounters Encounter Location Date Provider Diagnosis [facility] [address] [place] [address] 03/08/2024 Ernesto Wu History of adenomato us [...] Name:Ernesto Wu , 10/09/2024 07:30:00 AM, [address] [place] [address] , [place], [place], [phone], Progress Notes * Examination Category Sub-Category Detail [...]
--- OUTSIDE RECORDS SUMMARY | 2024-09-20 08:05 | XMS_ITS ---
Author Organization [facility] Address [address] [place] [address] Care Team Providers Care Ditch Digger Name Role Phone MARC HERNANDEZ Primary Care Provider Ernesto Beck [phone] REASON FOR VISIT screening, hx polyps,hx colon ca Encounters Encounter Location Date Provider Diagnosis [facility] [place] [address] [place] [phone] 06/21/2024 Ernesto Wu PLAN OF TREATMENT Next Appt Details Provider Name:Ernesto Wu , 10/09/2024 07:30:00 AM, [address] [place] [address], [phone],
--- OUTSIDE RECORDS SUMMARY | 2024-09-20 08:05 | XMS_ITS ---
Author Organization [facility] Address [address] [place] [phone] Care Team Providers Care Senior Net C Developer Name Role Phone MARC HERNANDEZ Primary Care Provider Ernesto Beck [phone] REASON FOR VISIT medication change. /procedure end of month/waiting on pt call back Encounters Encounter Location Date Provider Diagnosis [facility] [address] [place] [phone] 09/12/2024 Ernesto Wu PLAN OF TREATMENT Next Appt Details Provider Name:Ernesto Wu , 10/09/2024 07:30:00 AM, [address] [place] [address] , [place], [place], [phone],
== END 2024-09-15 11:48 | disposition home or self-care (01) ==
LOC: HO.HMGCLDS 11:47
PROVIDERS: PCP Nurse Practitioner Family; Visit Provider Nurse Practitioner Family
DX: D64.9 Anemia, unspecified (principal); U07.1 COVID-19
CPT/HCPCS: 36415; 80053; 81003; 82607; 82728; 82746; 83540; 83615; 85025; 85045

== ENCOUNTER 2024-09-19 05:46 | Emergency (ER) | payer BC, SELFPAY ==
--- NOTE | ~2024-09-19 | CT_ITS ---
EXAMINATION: CT SCAN OF THE LEFT LOWER EXTREMITY LOWER LEG WITHOUT CONTRAST CLINICAL INFORMATION: Evaluate for patellar fracture. COMPARISON: X-ray of the left knee performed earlier same day. TECHNIQUE: CT scan of the left lower extremity with the [id number] including the distal femur and knee including the proximal aspect of the talocrural joint. FINDINGS: Patella: There is a small well-corticated osseous fragment adjacent to the proximal pole patella likely reflecting a partially detached or fractured osteophyte, most likely old. No surrounding edema. There is also a prominent enthesophyte noted along the dorsal aspect of the patella with lucency along the base of the enthesophyte. There is mild arthrosis of the patellofemoral compartment. There is chondrocalcinosis. The medial and lateral compartments are otherwise normal. There is no definite joint effusion. However, there is a moderate-sized slightly complex Catalan's cyst. The remaining bone and joints are unremarkable. There is a localized increased density in the anterior medial subcutaneous soft tissues of the proximal tibia beginning at the level of the tibial tubercle. This extends over approximately 4.8 cm transverse, 1.6 cm AP and 7 cm craniocaudal. This likely reflects a subcutaneous hematoma. See axial image 76, series 6. Additional more generalized increased density circumferentially about the lower thigh compatible with edema and/or cellulitis. Bone otherwise unremarkable. Prominent arterial calcification throughout. There is severe atrophy and fatty infiltration of the medial head of the gastrocnemius. CT/CT lower leg LT wo IV con IMPRESSION: Age-indeterminate fracture osteophyte off the proximal patella, likely old. Age indeterminate fracture or osteolysis along the base of the proximal patella enthesophyte, likely old. Patellar otherwise unremarkable. No definite acute fracture. Evolving hematoma in the subcutaneous soft tissues of the proximal lower leg at the level of the proximal tibia at the level of the tibial tubercle Electronically signed by: Connor Herrera MD 09/19/2024 12:30 PM [facility] [place], [place]
--- NOTE | ~2024-09-19 | XR_ITS ---
EXAMINATION: XR KNEE, LEFT CLINICAL INFORMATION: Fall. COMPARISON: None available. TECHNIQUE: Four views of the left knee. FINDINGS: Vascular calcifications. Diffuse demineralization. Moderate joint effusion. Transverse lucency along the posterior superior aspect of the patella best appreciated on the lateral view may represent an avulsion fracture. Anterior and superior patellar spurring with superior amorphous calcification/ossification. Tiny spur/calcification along the anterior proximal tibia in the region of the tibial spine. Mild narrowing of the medial compartment. Very faint medial and lateral chondrocalcinosis. Faint calcifications/ossifications in the soft tissues along the lateral aspect of the knee joint and distal femur. XR/XR knee LT 2V IMPRESSION: 1. Moderate joint effusion. Transverse lucency along the posterior superior aspect of the patella best appreciated on the lateral view may represent an avulsion fracture. 2. Additional soft tissue calcifications/ossifications adjacent to the knee as detailed above. 3. Correlation with clinical exam recommended to determine further management. This study was presented today to September 19, 2024 for interpretation. Stat results provided at this time as requested by referring provider. Electronically signed by: Wilma Barrera MD 09/19/2024 07:41 AM [facility]
--- NOTE | ~2024-09-19 | XR_ITS ---
EXAMINATION: XR CHEST CLINICAL INFORMATION: Fall injury. COMPARISON: X-ray chest 09/13/2024. TECHNIQUE: Frontal view of the chest. FINDINGS: Lung volumes are low. Heart size within normal limits where imaged. There is no gross pneumothorax. Advanced degenerative changes in the bilateral shoulders. Postsurgical changes with clips in the upper abdomen in region of gastroesophageal junction. Mild bibasilar streaky opacities difficult to characterize due to low lung volumes. No significant pleural effusion appreciated. XR/XR chest 1V IMPRESSION: Mild bibasilar streaky opacities difficult to characterize due to low lung volumes. No significant pleural effusion appreciated. This study was presented today to September 19, 2024 for interpretation. Stat results provided at this time as requested by referring provider. Electronically signed by: Wilma Barrera MD 09/19/2024 07:23 AM [facility]
[2024-09-19 05:50] VITALS: BP 108/75; PULSE 85; RESP 16; TEMP 36.1; O2SAT 100; BMI 29.4
--- NOTE | 2024-09-19 07:10 | PC.NURSE ---
Assumed care of patient at 0700, alert and oriented, patient c/o of chest pain on deep inspiration. Left knee abrasion, no bruising or bleeding noted.
--- NOTE | 2024-09-19 07:13 | ED_ITS ---
HPI - Fall General Chief Complaint: Fall Stated Complaint: fell on chest Time Seen by Provider: 09/19/24 07:01 Source: patient Limitations: no limitations History of Present Illness HPI Narrative: This is 79 years old man with history of diabetic presented to emergency department after fall he ambulate at baseline with a walker tripped and fell at home complaining of left knee pain and chest wall. No head injury no neck injury patient is not anticoagulated MD complaint: fall Onset (ago): hour(s) (1) Fall from: standing Place fall occurred: home Loss of consciousness: none Prolonged down time: no Symptoms prior to fall: none Context: tripped/slipped Location of injury - extremities: left: knee Severity: mild Associated symptoms (after fall): denies Related Data Home Medications ?Medication ?Instructions ?Recorded ?Confirmed zinc 50 mg capsule 50 mg PO DAILY 08/13/20 06/28/24 vitamin B complex 1 cap PO DAILY 10/14/20 06/28/24 berberine-herbal comb no.18 capsule 500 cap PO BID 12/31/22 06/28/24 resvertrol 06/01/23 06/28/24 ascorbate calcium (vitamin C) 500 1.5 g PO DAILY 07/07/23 06/28/24 mg tablet cholecalciferol (vitamin D3) 100 1,200 unit PO DAILY 09/27/23 06/28/24 mcg (4,000 unit) capsule latanoprost 0.005 % eye drops 1 drp ophthalmic (eye) QPM 03/21/24 06/28/24 mecobalamin (vitamin B12) 500 mcg mcg PO 04/26/24 06/28/24 chewable tablet alpha lipoic acid 200 mg capsule 200 mg PO BID 05/23/24 06/28/24 turmeric (bulk) 95 % powder ea miscellaneous 07/24/24 (Curcumin) Previous Rx's ?Medication ?Instructions ?Recorded insulin NPH isoph U-100 human 100 30 unit (0.3 mL) subcut BID 90 08/24/22 unit/mL subcutaneous suspension days #60 mL (Humulin N NPH U-100 Insulin (isophane susp)) blood-glucose sensor (FreeStyle #6 ea 04/26/24 Nilsa 3 Sensor device) ketoconazole 2 % topical cream 1 appl topical DAILY 14 days #30 08/23/24 grams leg brace (Ankle Brace) #1 ea 06/28/24 blood sugar diagnostic (Contour #450 ea 09/01/24 Test Strips) insulin syringe-needle U-100 1 mL #200 ea 09/01/24 30 gauge x 1/2 (BD Insulin Syringe Ultra-Fine) Allergies Allergy/AdvReac Type Severity Reaction Status Date / Time penicillamine Allergy Unknown unknown Verified 09/19/24 05:54 Review of Systems Review of Systems: Yes all other systems are reviewed and are negative Constitutional: Constitutional: Reports no additional constitutional complaints ENT: Reports system reviewed and no additional complaints, except as documented Cardiovascular: Cardiovascular: Reports no additional cardiovascular complaints Genitourinary: Genitourinary: Reports no additional male genitourinary complaints Musculoskeletal: Musculoskeletal: Reports as per [facility] Past Medical History Attestation statement: The following information was validated with the patient. 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 Vitamin D deficiency Cholecystectomy planned Osteoarthritis History of colon cancer CKD (chronic kidney disease) Sarcoidosis Partial nontraumatic amputation of right foot PVD (peripheral vascular disease) Diabetic retinopathy Spherocytosis Skin cancer Peripheral neuropathy Spinal stenosis Renal stones Pulmonary sarcoidosis Diabetes Surgical History History of amputation of foot History of ureter repair H/O splenectomy S/P ureteral reimplantation History of surgical removal of pilonidal cyst History of tonsillectomy and adenoidectomy H/O right hemicolectomy Status post laser lithotripsy of ureteral calculus Hx of cholecystectomy Hx of colonoscopy Family History Family History Mother Thyroid cancer Other Mental health disorder Social History Social History Household Members: Friend(s) Housing: House Are you a primary women's health care nurse practitioner to a significant other at home: No Do you presently have visiting nurse or other home services: No Alcohol intake: never Patient Tobacco Use Status: Never used Tobacco e-Cigarette/Vaping Use: Never Used Second Hand Smoke Exposure: No Advance Directives: No Advance Directives Information Provided: Yes Do you have a plan to hurt others: No Plan service: No Current occupational status: employed and retired Cognitive needs: No Hearing needs: No Vision needs: No Physical Exam Vital Signs: Vital Signs: Last Vital Signs Temp 97.9 F 09/19/24 13:18 Pulse 77 09/19/24 13:18 Resp 18 09/19/24 13:18 BP 119/64 09/19/24 13:18 Pulse Ox 100 09/19/24 13:18 O2 Del Method Room Air 09/19/24 13:18 BMI result Body Mass Index 29.4 Looks well no distress Const: General: cooperative, comfortable and no acute distress Nutritional Appearance: average body habitus Orientation/consciousness: patient oriented x3 Limitations: no limitations HEENT: Head: Yes normal to inspection General nose exam: Normal external nose present Face and sinus: Yes normal facial exam Mouth: Normal oral and palatal mucosa present Neck: Neck: Yes normal visual inspection and Yes full ROM Chest: Other: Mild tenderness in the chest wall Resp: Effort & Inspection: normal respiratory effort Auscultation: clear to auscultation bilaterally Cardio: Jugular venous distension: no JVD Rate: regular rate Rhythm: regular rhythm GI: Inspection: Yes normal to inspection Palpation (GI): Soft to palpation, not firm, nontender and no guarding Skin: General skin exam: no rashes or lesions noted Lesions: no lesions Rashes: no rashes Wounds: no wounds Neuro: General: patient oriented x3 Extrem: Other: Tenderness in the left knee no deformity abrasion left knee General: Yes normal to inspection Right lower extremity: normal to inspection Course Reevaluation(s) Reevaluation #1: CT SCAN OF THE LOWER EXTREMITIES SHOWS NO FRACTURE WILL ATTEMPT AMBULATION IF HE IS ABLE TO AMBULATE WILL DISCHARGE Time: 13:00 Medications Administered Discontinued Medications Generic Name Dose Route Start Last Admin Trade Name Freq PRN Reason Stop Dose Admin Acetaminophen 975 mg 09/19/24 07:13 09/19/24 09:41 Acetaminophen 325 Mg Tablet PO 09/19/24 07:14 975 mg ONCE ONE Administration Medical Decision Making Medical Decision Making [facility] Narrative: Patient presented after a fall mechanical no syncope we will get x-ray of the knee chest Differential Diagnosis Differential Diagnoses: The differential diagnosis associated with the presentation includes Fracture knee/ribs fracture Admission/Observation Consideration of admission/observation: Escalation of care including admission/observation considered Lab Data [facility] Lab Attestation statement: I reviewed the patient's lab results. Independent Interpretation I performed an independent interpretation of an: Plain X-Ray Interpretation: I PERSONALLY REVIEW INTERPRETED PLAIN FILMS OF THE KNEE HE HAS A POSSIBLE PATELLAR FRACTURE Radiology Impression Discussion of test interpretation with radiology: I have reviewed the radiologist's reading. Radiologist Impression: IMPRESSION: Age-indeterminate fracture osteophyte off the proximal patella, likely old. Age indeterminate fracture or osteolysis along the base of the proximal patella enthesophyte, likely old. Patellar otherwise unremarkable. No definite acute fracture. Evolving hematoma in the subcutaneous soft tissues of the proximal lower leg at the level of the proximal tibia at the level of the tibial tubercle Electronically signed by: Connor Herrera MD 09/19/2024 12:30 PM [facility] Dictated By: Connor Herrera MD Signed By: <Electronically signed by Connor Herrera MD in OV> 09/19/24 1230 Discharge Plan Discharge Clinical Impression: Left knee sprain Qualifiers: Encounter type: initial encounter Involved ligament of knee: unspecified ligament Qualified Code(s): S83.92XA - Sprain of unspecified site of left knee, initial encounter Contusion of knee, left Qualifiers: Encounter type: initial encounter Qualified Code(s): S80.02XA - Contusion of left knee, initial encounter Patient Disposition: Home, Self-Care Instructions: Contusion in Adults (ED) Additional Instructions: FOLLOW-UP WITH YOUR PRIMARY CARE PHYSICIAN RETURN TO THE EMERGENCY ROOM IF YOU WORSE ANY CONCERN Prescriptions: No Action ketoconazole 2 % cream 1 appl topical DAILY 14 Days Qty: 30 1RF (DME) Contour Test Strips Strip See Rx Instructions .Route Qty: 450 1RF Rx Instructions: 5 times a day (DME) insulin syringe-needle U-100 [BD Insulin Syringe Ultra-Fine] 1 mL 30 gauge x 1/2 syringe See Rx Instructions .Route Qty: 200 3RF Rx Instructions: Use to inject insulin twice per day vitamin B complex Capsule 1 cap PO DAILY latanoprost 0.005 % drops 1 drp ophthalmic (eye) QPM zinc 50 mg Capsule 50 mg PO DAILY cholecalciferol (vitamin D3) 100 mcg (4,000 unit) capsule 1,200 unit PO DAILY berberine-herbal comb no.18 Capsule 500 cap PO BID ascorbate calcium (vitamin C) 500 mg tablet 1.5 g PO DAILY Humulin N NPH U-100 Insulin 100 unit/mL suspension 30 unit subcut BID 90 Days Qty: 60 3RF (DME) resvertrol 0 .Route .MEDSUPPLY mecobalamin (vitamin B12) 500 mcg tablet,chewable PO (DME) FreeStyle Nilsa 3 Sensor Device See Rx Instructions .Route Qty: 6 1RF Rx Instructions: Test blood sugar 4 times per day alpha lipoic acid 200 mg capsule 200 mg PO BID (DME) Ankle Brace Misc See Rx Instructions .ROUTE .MEDSUPPLY Qty: 1 0RF Rx Instructions: LEFT AFO custom molded for foot drop Custom shoes, diabetic foot Curcumin 95 % powder miscellaneous Referrals: Physician,Unknown J [Primary Care Provider] - 2 days Interventions: ED Discharge Assessment Last Done: 09/19/24 13:18 Discharge Date/Time: 09/19/24 13:20 Print Language: Latvian
[2024-09-19] MEDS: Acetaminophen 325 MG TABLET 975 MG PO (09:41)
[2024-09-19 10:05] VITALS: BP 119/64; PULSE 77; RESP 18; TEMP 36.6; O2SAT 100
[2024-09-19 13:18] VITALS: BP 119/64; PULSE 77; RESP 18; TEMP 36.6; O2SAT 100
--- OUTSIDE RECORDS SUMMARY | 2024-09-20 18:17 | XMS_ITS ---
Author Organization [facility] Address [address] [place] [address] Care Team Providers Care Adjusto Writer Operator Name Role Phone Sturat Lozano Primary Care Provider Unav ailable Warren Marychuy Unavailable [phone] Encounters Encounter Location Date Provider Diagnosis [address] [phone] 06/13/2024 Marychuy Kelley Plan Of Treatment Next Appt Details Provider Name:Marychuy Kelley , 11/23/2024 02:00:00 PM, [address] [place], [phone], Progress Notes * Casey SEWELL KDOB:[birth year] (79 yo M)Acc No.[id number]:06/13/2024 Progress Note Patient:?Casey SEWELL Provider:?Marychuy Kelley DPM :1945???Age:79 Y???Sex:Male David e:06/13/2024 Address:[address] [place] [address] [phone] Pcp:IVORY Mattson Subjective: * Chief Complaints: * ??? * Medical History:? Objective: * Vitals:? Assessment: Plan: * Treatment: * Images: * The named appointment provid er may or may not be the originator of this progress note, and it is not deemed complete until electronically signed by the appointment provider. Sign off status: Pending * Provider:?Marychuy Kelley DPM Date:?2023 Generated for Alfredo logan/Lila/Zo on:?09/20/2024 06:17 PM EST
--- OUTSIDE RECORDS SUMMARY | 2024-09-20 18:17 | XMS_ITS ---
Author Organization [facility] [place] Address [address] [place] [address] Care Team Providers Care Fabric Worker Name Role Phone Stuart Lozano Primary Care Provider Unav ailable Black, Marychuy Unavailable [phone] Allergies Allergen (clinical drug ingredient) Drug/Non Drug Allergy documented on EMR Reaction Allergy Type Onset Date Status 12 Hour Nasal [place] Unknown Drug Allergy Active Dust Mites Unknown [...] Active Vitamin D Active HumuLIN N Active [place] 3-6-9 Not-Taki ng Berberine HCI 500 MG as directed Orally Active Aspirin 81 81 MG 1 tablet Orally Once a day Not-Taking Vitamin B Complex - as directed Orally Active Flax Seed Oil Active Flax Seeds - as directed Orally Not-Taking Lovastatin Not-Takin g Resveratrol Active Vitamin D3 Active Timolol Maleate PF N ot-Taking Magnesium Not-Taking L89-Njqpsh Active Social History Tobacco Use: Social History [...] Problem Status W/U Status Risk Notes Problem [id number] Skin ulcer of toe of left foot, limited to breakdown of skin (L97.521) Active confirmed Vital Signs Height 5ft 11in in 08/17/2024 Weight 207 lbs 08/17/2024 BMI 28.87 kg/m2 08/17/2024 Procedures Procedure Date Ordered Date Performed Result Body Sit e 73213-FRSSEKO NAIL, 1-5 08/17/2024 N/A 18367-Fibycryv Plate 08/17/2024 N/A 16917-Cahgahwh Plate Each Additional 08/17/2024 N/A 26720-CHWN SKIN LESIONS, OVER 4 08/17/2024 N/A Encounters Encounter Location Date Provider Diagnosis [facility] [address] [place] [address] 08/17/2024 Marychuy Black Type 1 diabetes mellitus [...] Treatment Pending Test Test Name Order Date 98378-TYOUOJZ NAIL, 1-5 08/17/2024 89608-Xjveuimz Plate 08/17/2024 52186-Nrdmorwj Plate Each Additional 04/2024 14768-DVEW SKIN LESIONS, OVER 4 08/17/20 24 Next Appt Details Follow Up: 2 Weeks,prn, Reas on: Provider Name:Marychuy Kelley , 11/23/2024 02:00:00 PM, [address] [place] [address], [address], Procedure Notes * Category Sub-Category Detail Notes [...] and future surgical procedures to prevent recurrence (81664/32) , DIABETES: Matricectomy deferred at this time [...] of the wound post debridement is stable (49325) Keratoma Treatment Parring or Cutting o f Benign Hyperkeratotic Lesion(s) 42493 ( >4 Lesions) - The Benign hyperkeratotic [...] use of a nail nipper and/or dremel-type instrument lens grinder apprentice, to a more viable healthy nail plate or bed tissue 1-5. Silver nitrate used for any petechial bleeding as necessary. Definitive antifungal treatment options have been reviewed and discussed with the patient. The patient chooses, no pharmaceutical tx - 61670 Progress Notes * Casey SEWELL KDOB:[birth year] (79 yo M)Acc No.[id number]:08/17/2024 Progress Note Patient:?Thomashamlet Casey Barbara Provider:?Marychuy Kelley DPM :1945???Age:79 Y???Sex:Male David e:08/17/2024 Address:[address] [place], [place] [address] Pcp:IVORY Mattson Subjective: * Chief Complaints: * [...] wound right ankle - saw minerva bonilla [facility]- chest pain 10/31C- [facility] Scan [facility]- Bladder [facility]- Possible Heart Attack/Stress Anxiety/Covid 07/31 * Family [...] ?Points?0 ?Interpretation?Negative ???Miscellaneous:?no Exercise. ?Occupation: Retired. * Medications:?YevstzJ10-Sdvik e Vitamin D3 Resveratrol Flax Seed Oil Vitamin B Complex - Tablet as directed Orally Berberine HCI 500 MG Capsule as directed Orally Vitamin D HumuLIN N Zinc Vitamin C 500 MG Capsule as directed Orally Once a dayTurmeric AFO-Hinged as directed Wear DailyTaking F98-Bsgomt Taking Vitamin D3 Taking Resveratrol Taking Flax [...] Release 1 tablet Orally Once a dayNot-Taking/PRN [place] 3-6-9 Not-Taking/PRN Nattokinase 100 MG Capsule as [...] 2.?Type 1 diabetes mellitus with diabetic polyneuropathy?Procedure: 21098-QFWM SKIN LESIONS, OVER 4 3.?Ingrown nail?Procedure: 61163-Sczetphs Plate ?Procedure: 75318-Pavozdql Plate Each Additional * Procedures:?Debride Nails 1-5:?Procedure:?Performance of this nail treatment by a nonprofessional would put this patients foot and overall health at risk. Therefore, debridement to affected nail(s) as described in exam was performed extensively to reduce/remove overall nail length, girth, thickness, subungual debris, and necrotic tissue, by manual and/or electrical means through the use of a nail nipper and/or dremel-type instrument lens grinder apprentice, to a more viable healthy nail plate or bed tissue 1-5. Silver nitrate used for any petechial bleeding as necessary. Definitive antifungal treatment options have been reviewed and discussed with the patient. The patient chooses, no pharmaceutical tx - 04341.?Debride skin< 25 sq cm:?Open wound?NEUROPATHY: Physician of [...] of the wound post debridement is stable (89844).?Keratoma Treatment:?Parring or Cutting of Benign Hyperkeratotic Lesion(s)?75095 ( >4 Lesions) - The Benign hyperkeratotic [...] and future surgical procedures to prevent recurrence (48574/32) , DIABETES: Matricectomy deferred at this time due to diabetes risk.? * Procedure Codes:?98442 TRIM SKIN LESIONS, OVER 4, Modifiers: XS 23990 Avulsion Plate, Modifiers: [place] 19304 Avulsion Plate Each Additional, Modifiers: T5 68493 DEBRIDE NAIL, 1-5, Modifiers: XS 98644 ACTIVE WOUND CARE/20 CM OR <, Modifiers: [...] DPM Date:?2023 Generated for Alfredo logan/Lila/Zo on:?09/20/2024 06:16 PM EST History and Physical Notes * [...]
--- OUTSIDE RECORDS SUMMARY | 2024-09-20 18:17 | XMS_ITS ---
Author Organization [facility] Address [address] [place] [address] Care Team Providers Care Subacute Nurse Name Role Phone Stuart Lozano Primary Care Provider Unav ailable Black, Marychuy Unavailable [phone] REASON FOR VISIT rx for AFO Encounters Encounter Location Date Provider Diagnosis [facility] [address] [place] [address] 08/22/2024 Marychuy Black Plan Of Treatment Next Appt Details Provider Name:Marychuy Archer Warren , 11/23/2024 02:00:00 PM, [address] [place], [address], Progress Notes * Casey SEWELL KDOB:[birth year] (79 yo M)Acc No.[id number]:08/22/2024 Patient:?Casey SEWELL :1945???Age:79 Y???Sex:Male Address:[address] [place] [address] [place], [address] * true * Date:? Generated for Printi ng/Fadoeg/eTransmitting on:?09/20/2024 06:16 PM EST
--- OUTSIDE RECORDS SUMMARY | 2024-09-20 18:17 | XMS_ITS | Patient Health Record ---
Author Organization [facility] Address [address] [place] [address] Care Team Providers Care .Net Programmer Name Role Phone Stuart Lozano Primary Care Provider Unav ailable Black, Marychuy Unavailable [phone] Allergies Allergen (clinical drug ingredient) Drug/Non Drug Allergy documented on EMR Reaction Allergy Type Onset Date Status 12 Hour Nasal [place] Unknown Drug Allergy Active Dust Mites Unknown [...] HCI 500 MG as directed Orally Active [place] 3-6-9 Not-Taki ng Aspirin 81 81 MG [...] 13 Not-Takin g Ascorbic Acid Not-Jacek hensley J47-Utulmz Active Aspirin 81 MG 1 tablet Orally [...] Problem Acquired hammer toe of right foot (3186962355461733) Other hammer toe(s) (acquired), right foot (M20.41) Active confirmed Problem Acquired hammer toe of left foot (5426187288467623) Other hammer toe(s) (acquired), left foot (M20.42) Active confirmed Problem Non-pressure ulcer lower limb (112334479) Non-pressure chronic ulcer of other part of right foot limited to breakdown of skin (L97.511) Active confirmed Problem Polyneuropathy due to diabetes mellitus type I (326843186) 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 Problem Hammer toe (318732116) Hammer toe of left foot (M20.42) Active confirmed Problem 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 (326751136474024) Charcot foot due to diabetes mellitus (E11.610) Active confirmed Problem Unsteady gait (91894717) Unsteady gait (R26.81) Active confirmed Problem Ankle ulcer (512573421) Skin ulcer of right ankle, limited to breakdown of skin (L97.311) Active confirmed Problem Ulcer of toe of right foot (disorder) (44425695405235035) Skin ulcer of toe of right foot, limited to breakdown of skin (L97.511) Active confirmed Problem Acquired equinovarus deformity (66287229) 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) Active confirmed Problem 36477923134951581 Skin ulcer of toe of left foot, limited to breakdown of skin (L97.521) Active confirmed Vital Signs Height 5ft 11in in 08/17/2024 Weight 207 lbs 08/17/2024 BMI 28.87 kg/m2 08/17/2024 Procedures Procedure Date Ordered Date Performed Result Body Sit e 63993-KHZEDVA NAIL, 6 OR MORE 10/21/2023 N/A 24538-GGSE SKIN LESIONS, OVER 4 10/21/2023 N/A 30989-HWZUNVQ NAIL, 1-5 01/20/2024 N/A 84902-Rubmmtfb Plate 01/20/2024 N/A 38651-AXHZ SKIN LESIONS, OVER 4 01/20/2024 N/A 69330-QRPNSPC NAIL, 6 OR MORE 05/11/2024 N/A 91468-BNLH SKIN LESIONS, OVER 4 05/11/2024 N/A 90451-HOMYENW NAIL, 1-5 08/17/2024 N/A 56307-Crnlbghv Plate 08/17/2024 N/A 46423-Hmhkvgpd Plate Each Additional 08/17/2024 N/A 74997-AAKS SKIN LESIONS, OVER 4 08/17/2024 N/A Encounters Encounter Location Date Provider Diagnosis [address] [address] 10/21/2023 Marychuy Black Type 1 diabetes mellitus with diabetic polyneuropathy E10.42 ; Rupture of extensor tendon of foot S96.819A and Tinea unguium B35.[address] [address] 01/20/2024 Marychuy Black Type 1 diabetes mellitus with diabetic polyneuropathy E10.42 ; Tinea unguium B35.1 and Ingrown nail L60.[address] [address] 05/11/2024 Marychuy Black Type 1 diabetes mellitus with diabetic polyneuropathy E10.42 and Tinea unguium B35.[address] [address] 08/17/2024 Marychuy Black Type 1 diabetes mellitus with diabetic polyneuropathy E10.42 ; Tinea unguium B35.1 ; Ingrown nail L60.0 and Skin ulcer of toe of left foot, limited to breakdown of skin L97.[address] [address] 04/18/2024 Marychuy Black [address] [address] 08/22/2024 Marychuy Black Assessments Encounter Date Diagnosis [...] Test Name Order Date Hemoglobin A1c 12/02/2015 05257-NLUAALX NAIL, 6 OR MORE 05/11/2024 70799-WMAFAVM NAIL, 6 OR MORE 07/08/2023 87436-ISXUNCD NAIL, 6 OR MORE 10/21/2023 53473-HUXBXRO NAIL, 6 OR MORE 12/02/2020 47399-WAOWTUS NAIL, 6 OR MORE 03/13/2021 04425-KXEYNWN NAIL, 6 OR MORE 06/09/2021 13357-ASIRKMY NAIL, 6 OR MORE 09/08/2021 00343-LFPCRLY NAIL, 6 OR MORE 01/30/2022 78376-VHDFEVQ NAIL, 6 OR MORE 06/22/2022 74675-GJLRJQG NAIL, 6 OR MORE 09/28/2022 40861-KSKPATA NAIL, 6 OR MORE 12/28/2022 80738-PBYNHBQ NAIL, 6 OR MORE 04/05/2023 13951-WSYWAYU NAIL, 6 OR MORE 10/01/2011 70172-HDRHWAE NAIL, 6 OR MORE 12/03/2011 20390-CPCLENS NAIL, 6 OR MORE 03/03/2012 97847-CWQBAYT NAIL, 6 OR MORE 06/02/2012 64021-XYBERHC NAIL, 6 OR MORE 11/03/2012 26890-RNXQQLI NAIL, 6 OR MORE 01/23/2013 36927-XGSEQVI NAIL, 6 OR MORE 04/03/2013 66660-MBHHGPR NAIL, 6 OR MORE 06/28/2013 81135-WSCVECF NAIL, 6 OR MORE 09/13/2013 31250-LOKYXEK NAIL, 6 OR MORE 12/13/2013 49510-ZCAIZNP NAIL, 6 OR MORE 03/22/2014 03429-UBKZLWL NAIL, 6 OR MORE 06/21/2014 51069-JDJZVGT NAIL, 6 OR MORE 09/20/2014 82290-TJIGEED NAIL, 6 OR MORE 12/06/2014 02697-GHPAYDS NAIL, 6 OR MORE 02/21/2015 39126-WDACDLV NAIL, 6 OR MORE 05/13/2015 02665-QJGAMOW NAIL, 6 OR MORE 09/09/2015 31823-FUJTCAR NAIL, 6 OR MORE 12/02/2015 00097-EEUSPNX NAIL, 6 OR MORE 02/24/2016 53239-SWTUTBM NAIL, 6 OR MORE 06/01/2016 82764-OPYBPHC NAIL, 6 OR MORE 08/27/2016 56280-QZUSLJC NAIL, 6 OR MORE 12/07/2016 94240-HQFVSLB NAIL, 6 OR MORE 03/11/2017 42973-DRAMRDA NAIL, 6 OR MORE 06/24/2017 03189-UJEPWHH NAIL, 6 OR MORE 09/27/2017 35920-WVQXPZR NAIL, 6 OR MORE 12/27/2017 03110-FCOKXZU NAIL, 6 OR MORE 06/02/2018 26744-ORJMBLZ NAIL, 6 OR MORE 08/25/2018 17546-HLAJVWS NAIL, 6 OR MORE 11/24/2018 05422-PVMGNXO NAIL, 6 OR MORE 03/09/2019 84187-DKUZTQF NAIL, 6 OR MORE 06/05/2019 74511-LZOKRUI NAIL, 6 OR MORE 09/18/2019 57971-CFIFWGN NAIL, 6 OR MORE 03/11/2020 42676-WQJYMHK NAIL, 6 OR MORE 06/13/2020 05344-GVSDTRL NAIL, 6 OR MORE 09/23/2020 63084-MUNLRWM NAIL, 1-5 01/20/2024 15745-IEFVKKU NAIL, 1-5 08/17/2024 50672-Cuva Destruction, 1-14 09/08/2021 04239-Mamt Destruction, -14 06/09/2021 28022-Jqgh Destruction, -14 03/11/2020 55142-Ocfm Destruction, -14 06/05/2019 87623-Ikfc Destruction, 10-2409/18/2019 32599-Ljou Destruction, 10-2403/09/2019 70558-Jult Destruction, 10-2405/13/2015 20310-Nfcx Destruction, 10-2402/21/2015 58099-Loaw Destruction, 10-2412/06/2014 16951-Jssh Destruction, 10-2409/20/2014 70177-Gglh Destruction, 10-2406/21/2014 64676-Uerp Destruction, 10-2403/22/2014 93306-Awec Destruction, 10-2412/13/2013 10777-Szfl Destruction, 10-2409/13/2013 75350-Efyk Destruction, 10-2406/28/2013 17043-Bxlq Destruction, 10-2404/03/2013 24985-Nqxv Destruction, 10-2401/23/2013 72373-Fkcn Destruction, 10-2411/03/2012 00874-Lhju Destruction, 10-2406/02/2012 28691-Mjep Destruction, 10-2410/01/2011 39455-Zmut Destruction, 10-2403/03/2012 00259-Tnit Destruction, 10-2412/03/2011 67374-Stjytahl Plate 03/03/2012 33250-Hbaalmae Plate 12/03/2011 70455-Oruuoflw Plate 06/02/2012 05812-Mefqvmjr Plate 01/23/2013 50527-Kljfffrs Plate 04/03/2013 39704-Cejujlcm Plate 06/28/2013 25287-Srzjjcua Plate 09/13/2013 15705-Cdraygkk Plate 12/13/2013 70338-Bvphmhsd Plate 03/22/2014 20510-Nnnvwifi Plate 06/21/2014 63290-Yhyyzgat Plate 09/20/2014 00385-Cujjlihv Plate 12/06/2014 62197-Ticgkhyd Plate 02/21/2015 83213-Ieuxytns Plate 05/13/2015 46325-Qyxxzbsn Plate 12/27/2017 63167-Hejngulr Plate 06/05/2019 79079-Qtkrnrfk Plate 11/24/2018 38603-Klaztyqo Plate 03/09/2019 31602-Zvdnqugs Plate 08/25/2018 59062-Noeelqmq Plate 09/18/2019 47251-Vlcwsyey Plate 03/11/2020 66474-Zzuokzzt Plate 09/27/2017 34186-Ufcargzi Plate 12/07/2016 07375-Znviblkm Plate 08/27/2016 32850-Jbclaxcf Plate 06/01/2016 46661-Kpgvayua Plate 02/24/2016 54877-Xkoiztih Plate 12/02/2015 44512-Kfrdmmqs Plate 11/03/2012 97952-Cobbrggp Plate 09/09/2015 50674-Qlgccubz Plate 06/09/2021 83624-Qnnbifho Plate 06/13/2020 55402-Rvdwgnjt Plate 09/08/2021 82081-Tjovxyib Plate 03/13/2021 41259-Egnzpjtw Plate 09/23/2020 45416-Zaacphuq Plate 01/30/2022 77952-Hqkieojo Plate 06/22/2022 27241-Xsgynetg Plate 08/17/2024 08255-Svbsalmm Plate 01/20/2024 32553-Unjthzwk Plate Each Additional 09/2022 96132-Bumtcciy Plate Each Additional 04/2024 27548-Wltoinqr Plate Each Additional 47104-Jnjgkkzv Plate Each Additional 22557-Ydlliahy Plate Each Additional 12/2020 87615-Nhvrsbax Plate Each Additional 90509-Imqnxetz Plate Each Additional 44672-Zruuhhyt Plate Each Additional 45463-Hjaqilvn Plate Each Additional 76321-Sagmnmjb Plate Each Additional 40228-Cnodfsot Plate Each Additional 18796-Upnzibvt Plate Each Additional 65900-Jfikpvwy Plate Each Additional 44506-Jwfmbslv Plate Each Additional 62716-Aeounapz Plate Each Additional 06/2019 60776-Jrdmaecy Plate Each Additional 10/2019 80731-Qfcydytq Plate Each Additional 45008-Dyducipa Plate Each Additional 74599-Wltythnf Plate Each Additional 23155-Abwzanit Plate Each Additional 12/2014 20368-Rxajbygl Plate Each Additional 37896-Sfgpwxcs Plate Each Additional 68681-Cigsdrct Plate Each Additional 08/2014 82521-Ibhdtvsi Plate Each Additional 08/2014 68705-Pyjozmwr Plate Each Additional 09/2014 30069-Abjdjypv Plate Each Additional 02/2014 77097-Cgpjyimx Plate Each Additional 01/2013 76157-Fzqpuyzd Plate Each Additional 97727-Srmdnooo Plate Each Additional 59293-Bzehpklk Plate Each Additional 94514-Cbprjnri Plate Each Additional 10893-Ifhmdxqk Plate Each Additional 64622- Debride <25 sq cm 06/13/2020 48183- Debride <25 sq cm 04/05/2023 52940 I&D ABSCESS- SIMPLE,SINGLE 013 93558 I&D ABSCESS- SIMPLE,SINGLE 013 83085-JGSN SKIN LESIONS, OVER 4 01/24/20 13 10955-GRQU SKIN LESIONS, OVER 4 11/03/19 13 23488-JALM SKIN LESIONS, OVER 4 04/03/20 13 11506-EKHC SKIN LESIONS, OVER 4 06/28/20 13 23553-TUSH SKIN LESIONS, OVER 4 09/13/20 13 69110-IFIO SKIN LESIONS, OVER 4 12/14/19 14 97622-NTPY SKIN LESIONS, OVER 4 03/22/20 14 39820-UIFF SKIN LESIONS, OVER 4 06/21/20 14 26951-BCLC SKIN LESIONS, OVER 4 09/20/20 14 77983-LXJM SKIN LESIONS, OVER 4 12/06/19 15 53876-HMUJ SKIN LESIONS, OVER 4 02/22/20 15 14803-HGTU SKIN LESIONS, OVER 4 05/13/20 15 41597-XUFD SKIN LESIONS, OVER 4 06/13/20 20 51918-SXMN SKIN LESIONS, OVER 4 09/23/20 20 23071-COEF SKIN LESIONS, OVER 4 03/11/20 20 60757-QTHR SKIN LESIONS, OVER 4 09/18/20 19 17953-DNBK SKIN LESIONS, OVER 4 03/09/20 19 66753-XPXQ SKIN LESIONS, OVER 4 06/05/20 19 44502-VQWQ SKIN LESIONS, OVER 4 11/24/19 19 51764-EWCX SKIN LESIONS, OVER 4 08/25/20 18 66943-WAGP SKIN LESIONS, OVER 4 12/28/19 18 37451-XNMJ SKIN LESIONS, OVER 4 06/02/20 18 54231-SYJV SKIN LESIONS, OVER 4 09/27/20 17 35686-BLTG SKIN LESIONS, OVER 4 06/24/20 17 78698-XBZG SKIN LESIONS, OVER 4 12/07/19 17 64063-DVMY SKIN LESIONS, OVER 4 03/11/20 17 35209-SXKH SKIN LESIONS, OVER 4 08/27/20 16 93502-DTHX SKIN LESIONS, OVER 4 06/01/20 16 36889-XVSF SKIN LESIONS, OVER 4 02/24/20 16 00477-VCNX SKIN LESIONS, OVER 4 12/02/19 16 49493-CUJZ SKIN LESIONS, OVER 4 09/09/20 15 10904-XMDK SKIN LESIONS, OVER 4 04/05/20 23 44443-WPPU SKIN LESIONS, OVER 4 07/08/20 23 95217-TKML SKIN LESIONS, OVER 4 12/29/19 23 73654-XXJE SKIN LESIONS, OVER 4 09/28/20 22 14237-EYPA SKIN LESIONS, OVER 4 06/22/20 22 76606-FGTF SKIN LESIONS, OVER 4 01/31/20 22 65302-UPEQ SKIN LESIONS, OVER 4 09/08/20 21 36772-JYDG SKIN LESIONS, OVER 4 06/09/20 21 26030-ASSP SKIN LESIONS, OVER 4 12/02/19 21 80184-RDSI SKIN LESIONS, OVER 4 03/13/20 21 11053-CSHN SKIN LESIONS, OVER 4 08/17/20 24 56314-KBZX SKIN LESIONS, OVER 4 05/11/20 24 74196-WMJF SKIN LESIONS, OVER 4 01/20/20 24 71298-YINE SKIN LESIONS, OVER 4 10/21/19 24 55449-ZEUL SKIN LESIONS, 2 TO 4 06/02/20 12 94438-FAGB SKIN LESIONS, 2 TO 4 03/03/20 12 74416-LZQC SKIN LESIONS, 2 TO 4 12/03/19 12 21545-FWEG SKIN LESIONS, 2 TO 4 10/01/20 11 Next Appt Details Provider Name:Marychuy Kelley , 11/23/2024 02:00:00 PM, [address] [facility], [place], [address], Insurance Providers Payer Name Payer Address Payer Phone Subscriber Number Group Number Insured Name Patient Relationship to Insured Coverage Start Date Coverage End Date [facility] [address] [place] [address] [id number] Casey Ulrich Self - patient is the [...] kidney disease 04/2020 Hospitalization History Reason Date(Month/Year) [facility]- Possible Heart Attack/Stress Anxiet y/Covid 07/31 [facility] Scan [facility]- chest pain 10/31 [facility]- Pressure wound right ankle - saw levar bonilla [facility]- chest pain 10/2015
== END 2024-09-19 13:20 | disposition home or self-care (01) ==
PROVIDERS: Emergency Provider Emergency Medicine
DX: S83.92XA Sprain of unspecified site of left knee, initial encounter (principal); W01.0XXA Fall on same level from slipping, tripping and stumbling without subsequent striking against object, initial encounter; Y93.9 Activity, unspecified; Y92.009 Unspecified place in unspecified non-institutional (private) residence as the place of occurrence of the external cause; Y99.9 Unspecified external cause status; M25.562 Pain in left knee; E11.22 Type 2 diabetes mellitus with diabetic chronic kidney disease; N18.9 Chronic kidney disease, unspecified; R07.89 Other chest pain; Z79.899 Other long term (current) drug therapy
CPT/HCPCS: 71045; 73560; 73700; 99284

== ENCOUNTER 2024-09-20 11:44 | Outpatient (AMB) | payer BC, SELFPAY ==
[2024-09-20 11:52] VITALS: BP 114/70; PULSE 93; TEMP 36.2; O2SAT 100; BMI 29.4
--- NOTE | 2024-09-20 11:52 | MHC.OFFWIV ---
Intake Vital Signs 09/20/24 11:52 Height 5 ft 11 in Weight 211 lb BMI 29.4 BP 114/70 Blood Pressure Location Lt brachial Position Sitting Pulse 93 Pulse Source Pulse Oximeter Temp 97.1 F Temp Source Temporal Artery Scan Pulse Oximetry (%) 100 Oxygen Delivery Method Room Air Intake Visit Reasons: EP pain on chest due to a fall & LT knee pain Intake Note: Pt presents to the office today for c/o chest pain due to him falling 2 tonights ago on his left knee and fell forward into a dresser which he hit his chest on. Patient Tobacco Use Status: Never used Tobacco Allergies penicillamine Allergy (Unknown, Verified 09/20/24 11:54) unknown HPI HPI Comments History of Present Illness Details History of Present Illness The patient is a 79-year-old male presenting with concerns related to previous fall injuries and symptoms associated with long COVID syndrome. The patient recently visited the emergency department following a fall which resulted in injuries to his left knee and chest. A chest X-ray was conducted and showed no fractures or abnormalities, while the left knee injury did not reveal significant damage warranting additional intervention. The patient reported taking extra strength acetaminophen for pain management and described himself as a survivor. Additionally, the patient has been experiencing symptoms attributed to long COVID syndrome, which he describes as including brain fog, weakness, tiredness, and peripheral neuropathy affecting his arms and legs. These symptoms reportedly exacerbated due to poor diabetes control in the past. The patient expressed frustration with the chronicity of his symptoms and shared experiences dealing with debilitating fatigue post-exertion, often linked to ozone levels and allergic triggers. The patient also disclosed a history of chronic depression, managed independently without pharmacological interventions, though he acknowledged awareness of potential treatments like citalopram. He mentioned having consulted with the COVID clinic at [facility] but stated findings showed minimal intervention options for his condition. Physical Exam General: Cooperative, healthy appearing, comfortable, no acute distress and well developed Orientation: Patient oriented x3 Limitations: walker with ambulation Head: Normal to inspection Ears: Hearing grossly normal bilaterally Nose: Normal external nose present Face and sinus: Normal facial exam Eyes: Appearance normal, both eyes and all related structures Neck: Normal visual inspection and Yes full ROM Respiratory: Normal respiratory effort and able to speak in complete sentences. 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 Vitamin D deficiency Cholecystectomy planned Osteoarthritis History of colon cancer CKD (chronic kidney disease) Sarcoidosis Partial nontraumatic amputation of right foot PVD (peripheral vascular disease) Diabetic retinopathy Spherocytosis Skin cancer Peripheral neuropathy Spinal stenosis Renal stones Pulmonary sarcoidosis Diabetes Surgical History History of amputation of foot History of ureter repair H/O splenectomy S/P ureteral reimplantation History of surgical removal of pilonidal cyst History of tonsillectomy and adenoidectomy H/O right hemicolectomy Status post laser lithotripsy of ureteral calculus Hx of cholecystectomy Hx of colonoscopy Family History Mother Thyroid cancer Other Mental health disorder Social History Household Members: Friend(s) Housing: House Are you a primary intensive care nurse to a significant other at home: No Do you presently have visiting nurse or other home services: No Alcohol intake: never Patient Tobacco Use Status: Never used Tobacco e-Cigarette/Vaping Use: Never Used Second Hand Smoke Exposure: No service: No Current occupational status: employed and retired Cognitive needs: No Hearing needs: No Vision needs: No Review of Systems Const All systems reviewed & are unremarkable except as noted in HPI and below Physical Exam Vital Signs: Last Vital Signs Temp 97.1 F 09/20/24 11:52 Pulse 93 09/20/24 11:52 BP 114/70 09/20/24 11:52 Pulse Ox 100 09/20/24 11:52 Oxygen Delivery Method Room Air 09/20/24 11:52 BMI result Body Mass Index 29.4 Assessment & Plan Assessment & Plan (1) Depression: Code(s): F32.A - Depression, unspecified Qualifiers: Depression Type: unspecified Qualified Code(s): F32.A - Depression, unspecified Plan: Depression management was discussed, and pharmacological intervention such as Lexapro was suggested, whereas the patient expressed reluctance based on past experiences. Encouragement towards discussing potential therapeutic options with primary care or a mental health professional was suggested. (2) Post-COVID syndrome: Code(s): U09.9 - Post COVID-19 condition, unspecified Plan: Regarding long COVID syndrome, the patient may benefit from consultations with specialties experienced in post-COVID care if symptoms persist, particularly concerning neurological rehabilitation. Discussion with primary care to consider physical therapy could be beneficial, though past experiences suggest challenges due to fatigue. For peripheral neuropathy possibly exacerbated by long COVID syndrome, revisiting management strategies with his neurologist may be necessary, albeit the patient has been informed of limited interventional capabilities according to previous consultations. (3) Left knee sprain: Code(s): S83.92XA - Sprain of unspecified site of left knee, initial encounter Qualifiers: Encounter type: initial encounter Involved ligament of knee: unspecified ligament Qualified Code(s): S83.92XA - Sprain of unspecified site of left knee, initial encounter Plan: For the left knee and chest contusions, no further emergency department follow-up is anticipated as the imaging was negative for fractures. The patient should continue pain management with acetaminophen as needed. (4) Chest wall contusion: Code(s): S20.219A - Contusion of unspecified front wall of thorax, initial encounter Qualifiers: Encounter type: subsequent encounter Laterality: unspecified laterality Qualified Code(s): S20.219D - Contusion of unspecified front wall of thorax, subsequent encounter Plan: For the left knee and chest contusions, no further emergency department follow-up is anticipated as the imaging was negative for fractures. The patient should continue pain management with acetaminophen as needed. (5) Environmental allergies: Code(s): Z91.09 - Other allergy status, other than to drugs and biological substances Plan: For symptoms related to allergic rhinitis, considering an allergy management plan including environmental measures and potential pharmacotherapy could alleviate exacerbations, although the patient is knowledgeable about environmental triggers pertaining to local pollution levels. Plan Patient was informed and verbally consented to the use of an ambient scribe for clinic note documentation during this visit. Coding Level of Care Code Est Pt Level 4 (72266) Diagnoses Depression, unspecified depression type F32.A Depression Type: unspecified Post-COVID syndrome U09.9 Sprain of left knee, unspecified ligament, initial encounter S83.92XA Encounter type: initial encounter Involved ligament of knee: unspecified ligament Contusion of chest wall, unspecified laterality, subsequent encounter S20.219D Encounter type: subsequent encounter Laterality: unspecified laterality Environmental allergies Z91.09
--- OUTSIDE RECORDS SUMMARY | 2024-09-21 01:52 | XMS_ITS ---
Author Organization [facility] Address [address] [place] [address] Care Team Providers Care Telephone Quotation Clerk Name Role Phone MARC HERNANDEZ Primary Care Provider Ernesto Beck [phone] REASON FOR VISIT medication change. /procedure end of month/waiting on pt call back Encounters Encounter Location Date Provider Diagnosis [facility] [address] [place] [address] 09/12/2024 Ernesto Wu PLAN OF TREATMENT Next Appt Details Provider Name:Ernesto Wu , 10/09/2024 07:30:00 AM, [address] [place] [address] , [place], [place], [phone],
--- OUTSIDE RECORDS SUMMARY | 2024-09-21 01:52 | XMS_ITS ---
Author Organization [facility] [place] Address [address] [place] [address] Care Team Providers Care Production Tech Name Role Phone Stuart Lozano Primary Care Provider Unav ailable Black, Marychuy Unavailable [phone] Allergies Allergen (clinical drug ingredient) Drug/Non Drug Allergy documented on EMR Reaction Allergy Type Onset Date Status 12 Hour Nasal [place] Unknown Drug Allergy Active Dust Mites Unknown [...] Active Vitamin D Active HumuLIN N Active Draper 3-6-9 Not-Taki ng Berberine HCI 500 MG as directed Orally Active Aspirin 81 81 MG 1 tablet Orally Once a day Not-Taking Vitamin B Complex - as directed Orally Active Flax Seed Oil Active Flax Seeds - as directed Orally Not-Taking Lovastatin Not-Takin g Resveratrol Active Vitamin D3 Active Timolol Maleate PF N ot-Taking Magnesium Not-Taking E98-Hyuqbt Active Social History Tobacco Use: Social History [...] Problem Status W/U Status Risk Notes Problem 43261780510082824 Skin ulcer of toe of left foot, limited to breakdown of skin (L97.521) Active confirmed Vital Signs Height 5ft 11in in 08/17/2024 Weight 207 lbs 08/17/2024 BMI 28.87 kg/m2 08/17/2024 Procedures Procedure Date Ordered Date Performed Result Body Sit e 85116-FTKKTBT NAIL, 1-5 08/17/2024 N/A 03572-Mjoxpjev Plate 08/17/2024 N/A 42181-Szvftgpf Plate Each Additional 08/17/2024 N/A 81540-FZMT SKIN LESIONS, OVER 4 08/17/2024 N/A Encounters Encounter Location Date Provider Diagnosis [facility] [place] [address] [place] [address] 08/17/2024 Marychuy Black Type 1 diabetes mellitus [...] Treatment Pending Test Test Name Order Date 62950-JIQJJKO NAIL, 1-5 08/17/2024 67403-Wdwglbrw Plate 08/17/2024 33546-Cqljqadu Plate Each Additional 04/2024 87988-OBAR SKIN LESIONS, OVER 4 08/17/20 24 Next Appt Details Follow Up: 2 Weeks,prn, Reas on: Provider Name:Marychuy Kelley , 11/23/2024 02:00:00 PM, [address] [place] [address], [phone], Procedure Notes * Category Sub-Category Detail Notes [...] and future surgical procedures to prevent recurrence (10242/32) , DIABETES: Matricectomy deferred at this time [...] of the wound post debridement is stable (22019) Keratoma Treatment Parring or Cutting o f Benign Hyperkeratotic Lesion(s) 32562 ( >4 Lesions) - The Benign hyperkeratotic [...] use of a nail nipper and/or dremel-type sausage grinder, to a more viable healthy nail plate or bed tissue 1-5. Silver nitrate used for any petechial bleeding as necessary. Definitive antifungal treatment options have been reviewed and discussed with the patient. The patient chooses, no pharmaceutical tx - 40863 Progress Notes * Casey SEWELL KDOB:[birth year] (79 yo M)Acc No.[id number]:08/17/2024 Progress Note Patient:?Thomashamlet Casey Barbara Provider:?Marychuy Kelley DPM :1945???Age:79 Y???Sex:Male David e:08/17/2024 Address:[address] [place], [place] [phone] Pcp:IVORY Mattson Subjective: * Chief Complaints: * [...] ankle - [place] [facility] [place]- [facility] Scan [facility]- Bl[place] [facility] [place] Possible Heart Attack/Stress Anxiety/Covid 07/31 * Family [...] ?Points?0 ?Interpretation?Negative ???Miscellaneous:?no Exercise. ?Occupation: Retired. * Medications:?SjnxpoE31-Yfymo e Vitamin D3 Resveratrol Flax Seed Oil Vitamin B Complex - Tablet as directed Orally Berberine HCI 500 MG Capsule as directed Orally Vitamin D HumuLIN N Zinc Vitamin C 500 MG Capsule as directed Orally Once a dayTurmeric AFO-Hinged as directed Wear DailyTaking Z27-Lxbnnj Taking Vitamin D3 Taking Resveratrol Taking Flax [...] Release 1 tablet Orally Once a dayNot-Taking/PRN Draper 3-6-9 Not-Taking/PRN Nattokinase 100 MG Capsule as [...] 2.?Type 1 diabetes mellitus with diabetic polyneuropathy?Procedure: 90836-ETLL SKIN LESIONS, OVER 4 3.?Ingrown nail?Procedure: 34774-Yonfgkrz Plate ?Procedure: 23836-Xktucxrb Plate Each Additional * Procedures:?Debride Nails 1-5:?Procedure:?Performance of this nail treatment by a nonprofessional would put this patients foot and overall health at risk. Therefore, debridement to affected nail(s) as described in exam was performed extensively to reduce/remove overall nail length, girth, thickness, subungual debris, and necrotic tissue, by manual and/or electrical means through the use of a nail nipper and/or dremel-type sausage grinder, to a more viable healthy nail plate or bed tissue 1-5. Silver nitrate used for any petechial bleeding as necessary. Definitive antifungal treatment options have been reviewed and discussed with the patient. The patient chooses, no pharmaceutical tx - 37847.?Debride skin< 25 sq cm:?Open wound?NEUROPATHY: Physician of [...] of the wound post debridement is stable (22090).?Keratoma Treatment:?Parring or Cutting of Benign Hyperkeratotic Lesion(s)?96128 ( >4 Lesions) - The Benign hyperkeratotic [...] and future surgical procedures to prevent recurrence (49936/32) , DIABETES: Matricectomy deferred at this time due to diabetes risk.? * Procedure Codes:?83639 TRIM SKIN LESIONS, OVER 4, Modifiers: XS 57410 Avulsion Plate, Mod[place]: [place] 36701 Avulsion Plate Each Additional, Modifiers: T5 20179 DEBRIDE NAIL, 1-5, Modifiers: XS 31079 ACTIVE WOUND CARE/20 CM OR <, Modifiers: [...] Kelley DPM Date:?2023 Generated for Alfredo logan/Lila/Zo on:?09/21/2024 01:51 AM EST History and Physical Notes * HPI [...]
--- OUTSIDE RECORDS SUMMARY | 2024-09-21 01:52 | XMS_ITS ---
Author Organization [facility] Address [address] [place] [address] Care Team Providers Care Diamond Wheel Molder Name Role Phone Stuart Lozano Primary Care Provider Unav ailable Black, Marychuy Unavailable [phone] REASON FOR VISIT rx for AFO Encounters Encounter Location Date Provider Diagnosis [facility] [address] [place] [address] 08/22/2024 Marychuy Black Plan Of Treatment Next Appt Details Provider Name:Marychuy Archer Warren , 11/23/2024 02:00:00 PM, [address] [place], [address], Progress Notes * Casey SEWELL KDOB:[birth year] (79 yo M)Acc No.[id number]:08/22/2024 Patient:?Casey SEWELL :1945???Age:79 Y???Sex:Male Address:[address] [place] [address] [place], [address] * true * Date:? Generated for Printi ng/Fadoeg/eTransmitting on:?09/21/2024 01:51 AM EST
--- OUTSIDE RECORDS SUMMARY | 2024-09-21 01:52 | XMS_ITS ---
Author Organization [facility] Address [address] [place] [address] Care Team Providers Care Packing Floor Worker Name Role Phone Stuart Lozano Primary Care Provider Unav ailable Warren Marychuy Unavailable [phone] Encounters Encounter Location Date Provider Diagnosis [address] [address] 06/13/2024 Marychuy Kelley Plan Of Treatment Next Appt Details Provider Name:Marychuy Kelley , 11/23/2024 02:00:00 PM, [address] [place], [address], Progress Notes * Casey SEWELL KDOB:[birth year] (79 yo M)Acc No.[id number]:06/13/2024 Progress Note Patient:?Casey SEWELL Provider:?Marychuy Kelley DPM :1945???Age:79 Y???Sex:Male David e:06/13/2024 Address:[address] [place] [address] laury [phone] Pcp:IVORY Mattson Subjective: * Chief Complaints: * [...]
--- OUTSIDE RECORDS SUMMARY | 2024-09-21 01:52 | XMS_ITS ---
Author Organization [facility] Address [address] [place] [address] Care Team Providers Care Breast Trimmer Name Role Phone MARC HERNANDEZ Primary Care Provider Ernesto Beck Unavailable [phone] ALLERGIES No Known Allergies REASON FOR VISIT [...] Cephalexin 500 MG TAKE 1 CAPSULE BY [facility] TWICE A DAY FOR 10 DAYS [...] 03/08/2024 Encounters Encounter Location Date Provider Diagnosis [facility] [address] [place] [address] 03/08/2024 Ernesto Wu History of adenomato us [...] Provider Name:Ernesto Wu , 10/09/2024 07:30:00 AM, [address] [place] [address] , [place], [place], [phone], Progress Notes * Examination Category Sub-Category Detail [...]
--- OUTSIDE RECORDS SUMMARY | 2024-09-21 01:52 | XMS_ITS | Patient Health Record ---
Author Organization [facility] Address [address] [place] [address] Care Team Providers Care Memorial Designer Name Role Phone MARC HERNANDEZ Primary Care Provider Ernesto Beck [phone] ALLERGIES No Known Allergies REASON FOR REFERRAL No Information MEDICATIONS Medication SIG (Take, Route, Frequency, Duration) Notes Start Date End Date Status Dicyclomine HCl 10 MG 1 or 2 capsules Or ally Every 6 hours as needed for abdominal discomfort/cramps for 30 day(s) 10/17/2023 Active Cephalexin 500 MG TAKE 1 CAPSULE BY [facility] TWICE A DAY FOR 10 [...] adenomatous polyp of colon (Z86.010) Active confirmed 095614424 Problem Encounter for screening for malignant neoplasm of colon (Z12.11) Active confirmed 046668106 Problem Preprocedural examination (Z01.818) Active confirmed 661446713022270 Problem 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 652449883 Problem History of colon cancer (Z85.038) Active confirmed 970699706 Problem Constipation, unspecified constipation type (K59.00) Active confirmed 90993895 Problem Diverticulosis of colon (K57.30) Active confirmed Diverticulosi s of colon (371110984) Problem 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) VITAL SIGNS Temperature 97.7 degrees Fahrenheit 03/08/2024 Blood pressure diastolic 00 mm Hg 03/08/2024 Height 71.5 in 03/08/2024 Blood pressure systolic 000 mm Hg 03/08/2024 Weight 214 lbs 03/08/2024 BMI 29.43 kg/m2 03/08/2024 Encounters Encounter Location Date Provider Diagnosis [facility] [address] [place], [place] [phone] 06/21/2024 Ernesto Wu [facility] [address] [place] [address] 03/08/2024 Ernesto Wu History of adenomato us polyp of colon Z86.010 ; Preprocedural examination Z01.818 ; Encounter for screening for malignant neoplasm of colon Z12.11 ; History of colon cancer Z85.038 and Constipation, unspecified constipation type K59.00 [facility] [address] [place] [address] 10/15/2023 Ernesto Wu [facility] [address] [place] [address] 09/12/2024 Ernesto Wu ASSESSMENTS Encounter Date Diagnosis [...] Name:Ernesto Meyer Bryce , 10/09/2024 07:30:00 AM, [address] [place] [address] , [place], [place], [phone], Insurance Providers Payer Name Payer Address Payer Phone Subscriber Number Group Number Insured Name Patient Relationship to Insured Coverage Start Date Coverage End Date [facility] [address] [place], [place] [id number] MELISSA ELDER Self - patient is the insured MEDICAL (GENERAL) HISTORY Medical History History ICD Code Denies SD,CVA,Lung disease,renal disease IDDM Pulmonary sarcoidosis--inactive Spherocytosis Colonoscopy [...] surgery for stones with Jazlyn Liriano at [facility]
--- OUTSIDE RECORDS SUMMARY | 2024-09-21 01:52 | XMS_ITS ---
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
--- OUTSIDE RECORDS SUMMARY | 2024-09-21 01:52 | XMS_ITS | Patient Health Record ---
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 Name Role Phone Stuart Lozano Primary Care Provider Unav ailable Black, Marychuy Unavailable [phone] Allergies Allergen (clinical drug ingredient) Drug/Non Drug Allergy documented on EMR Reaction Allergy Type Onset Date Status 12 Hour Nasal [place] Unknown Drug Allergy Active Dust Mites Unknown [...] HCI 500 MG as directed Orally Active [place] 3-6-9 Not-Taki ng Aspirin 81 81 MG [...] 13 Not-Takin g Ascorbic Acid Not-Jacek hensley G82-Rgszxb Active Aspirin 81 MG 1 tablet Orally [...] Problem Acquired hammer toe of right foot (3604125922255771) Other hammer toe(s) (acquired), right foot (M20.41) Active confirmed Problem Acquired hammer toe of left foot (7112514900878483) Other hammer toe(s) (acquired), left foot (M20.42) Active confirmed Problem Non-pressure ulcer lower limb (544275672) Non-pressure chronic ulcer of other part of right foot limited to breakdown of skin (L97.511) Active confirmed Problem Polyneuropathy due to diabetes mellitus type I (558496301) 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 Problem Hammer toe (479757848) Hammer toe of left foot (M20.42) Active confirmed Problem 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 (777961232348692) Charcot foot due to diabetes mellitus (E11.610) Active confirmed Problem Unsteady gait (65973796) Unsteady gait (R26.81) Active confirmed Problem Ankle ulcer (979543589) Skin ulcer of right ankle, limited to breakdown of skin (L97.311) Active confirmed Problem Ulcer of toe of right foot (disorder) (03711540644752241) Skin ulcer of toe of right foot, limited to breakdown of skin (L97.511) Active confirmed Problem Acquired equinovarus deformity (76666961) 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) Active confirmed Problem [id number] Skin ulcer of toe of left foot, limited to breakdown of skin (L97.521) Active confirmed Vital Signs Height 5ft 11in in 08/17/2024 Weight 207 lbs 08/17/2024 BMI 28.87 kg/m2 08/17/2024 Procedures Procedure Date Ordered Date Performed Result Body Sit e 76376-NEKBWEN NAIL, 6 OR MORE 10/21/2023 N/A 16855-XBYP SKIN LESIONS, OVER 4 10/21/2023 N/A 80879-LGMTFNC NAIL, 1-5 01/20/2024 N/A 44163-Syfiezhy Plate 01/20/2024 N/A 97479-GYHT SKIN LESIONS, OVER 4 01/20/2024 N/A 86594-NOQBWCP NAIL, 6 OR MORE 05/11/2024 N/A 24188-UJRH SKIN LESIONS, OVER 4 05/11/2024 N/A 46012-HCOTXXP NAIL, 1-5 08/17/2024 N/A 34560-Uunaqvui Plate 08/17/2024 N/A 52198-Mcxzpltp Plate Each Additional 08/17/2024 N/A 19363-DVVW SKIN LESIONS, OVER 4 08/17/2024 N/A Encounters Encounter Location Date Provider Diagnosis [address] [address] 10/21/2023 Marychuy Black Type 1 diabetes mellitus with diabetic polyneuropathy E10.42 ; Rupture of extensor tendon of foot S96.819A and Tinea unguium B35.[address] [address] 01/20/2024 Marychuy Black Type 1 diabetes mellitus with diabetic polyneuropathy E10.42 ; Tinea unguium B35.1 and Ingrown nail L60.[address] [address] 05/11/2024 Marychuy Black Type 1 diabetes mellitus with diabetic polyneuropathy E10.42 and Tinea unguium B35.[address] [address] 08/17/2024 Marychuy Black Type 1 diabetes mellitus with diabetic polyneuropathy E10.42 ; Tinea unguium B35.1 ; Ingrown nail L60.0 and Skin ulcer of toe of left foot, limited to breakdown of skin L97.[address] [address] 04/18/2024 Marychuy Black [address] [address] 08/22/2024 Marychuy Black Assessments Encounter Date Diagnosis [...] Test Name Order Date Hemoglobin A1c 12/02/2015 14533-DXYUVZD NAIL, 6 OR MORE 05/11/2024 53016-NTGMCDP NAIL, 6 OR MORE 07/08/2023 68464-QIZFAYQ NAIL, 6 OR MORE 10/21/2023 88658-BQNCPVE NAIL, 6 OR MORE 12/02/2020 96290-YUUTXFU NAIL, 6 OR MORE 03/13/2021 30130-DINXWSL NAIL, 6 OR MORE 06/09/2021 39399-AMWTXRD NAIL, 6 OR MORE 09/08/2021 58275-NRWCOTW NAIL, 6 OR MORE 01/30/2022 96283-CQZAKBP NAIL, 6 OR MORE 06/22/2022 13180-MBHYADA NAIL, 6 OR MORE 09/28/2022 81521-QSEOUJV NAIL, 6 OR MORE 12/28/2022 37379-UUYIRLU NAIL, 6 OR MORE 04/05/2023 40588-ZWXBTHX NAIL, 6 OR MORE 10/01/2011 26398-GQRDDDW NAIL, 6 OR MORE 12/03/2011 76523-ODASXIP NAIL, 6 OR MORE 03/03/2012 12602-FOIICRT NAIL, 6 OR MORE 06/02/2012 60349-SEMBZZV NAIL, 6 OR MORE 11/03/2012 10285-LOCDJHI NAIL, 6 OR MORE 01/23/2013 29025-HCLYHJK NAIL, 6 OR MORE 04/03/2013 55610-ENGAXCR NAIL, 6 OR MORE 06/28/2013 13611-NSSEFGY NAIL, 6 OR MORE 09/13/2013 65230-SMZTZAA NAIL, 6 OR MORE 12/13/2013 40854-ZKXMPRW NAIL, 6 OR MORE 03/22/2014 07097-DOQXNGI NAIL, 6 OR MORE 06/21/2014 52084-QYWKAGO NAIL, 6 OR MORE 09/20/2014 82956-YDPKEYG NAIL, 6 OR MORE 12/06/2014 79702-UITPXRU NAIL, 6 OR MORE 02/21/2015 00231-WPGKCZB NAIL, 6 OR MORE 05/13/2015 11055-BGYAZCK NAIL, 6 OR MORE 09/09/2015 06030-BAXAOCB NAIL, 6 OR MORE 12/02/2015 56366-BGRNFWR NAIL, 6 OR MORE 02/24/2016 55991-PXSGOLB NAIL, 6 OR MORE 06/01/2016 16219-WLDCLXG NAIL, 6 OR MORE 08/27/2016 53958-OBOIOKY NAIL, 6 OR MORE 12/07/2016 34535-TVSHCPZ NAIL, 6 OR MORE 03/11/2017 15449-LHZFNYL NAIL, 6 OR MORE 06/24/2017 00033-SQAVRKD NAIL, 6 OR MORE 09/27/2017 32623-FSEHNPJ NAIL, 6 OR MORE 12/27/2017 98921-YAGVCJO NAIL, 6 OR MORE 06/02/2018 61835-CKXUAAZ NAIL, 6 OR MORE 08/25/2018 03657-QWZNUUC NAIL, 6 OR MORE 11/24/2018 14194-TTVJQXZ NAIL, 6 OR MORE 03/09/2019 35204-WCPRELB NAIL, 6 OR MORE 06/05/2019 73472-UADAEJH NAIL, 6 OR MORE 09/18/2019 46633-SGKJMHL NAIL, 6 OR MORE 03/11/2020 43030-LWPEHFP NAIL, 6 OR MORE 06/13/2020 32752-LBDYGUF NAIL, 6 OR MORE 09/23/2020 63399-GSFAXSV NAIL, 1-5 01/20/2024 14453-IBFTREU NAIL, 1-5 08/17/2024 22022-Tcpi Destruction, 1-14 09/08/2021 06949-Brgh Destruction, -14 06/09/2021 49109-Hyzf Destruction, -14 03/11/2020 54621-Csgd Destruction, -14 06/05/2019 43554-Vxtw Destruction, 10-2409/18/2019 50862-Msak Destruction, 10-2403/09/2019 77705-Golb Destruction, 10-2405/13/2015 28176-Chlf Destruction, 10-2402/21/2015 35742-Zqho Destruction, 10-2412/06/2014 43667-Qhma Destruction, 10-2409/20/2014 51893-Gwoy Destruction, 10-2406/21/2014 53075-Pmof Destruction, 10-2403/22/2014 02451-Sbiz Destruction, 10-2412/13/2013 91363-Cwnf Destruction, 10-2409/13/2013 01206-Grtj Destruction, 10-2406/28/2013 53204-Avvf Destruction, 10-2404/03/2013 13552-Watv Destruction, 10-2401/23/2013 98990-Ikom Destruction, 10-2411/03/2012 14155-Htyw Destruction, 10-2406/02/2012 44872-Hlvt Destruction, 10-2410/01/2011 10793-Dyui Destruction, 10-2403/03/2012 96725-Kdqt Destruction, 10-2412/03/2011 78430-Oqkblaou Plate 03/03/2012 10722-Usosjlfh Plate 12/03/2011 94743-Uybsiaki Plate 06/02/2012 05414-Jjpzvzpn Plate 01/23/2013 75829-Lqowycyc Plate 04/03/2013 10284-Lnslqmnb Plate 06/28/2013 71443-Bvfelcwl Plate 09/13/2013 31022-Qgcvtcer Plate 12/13/2013 11450-Ebbiypvp Plate 03/22/2014 02728-Rgtkfxvc Plate 06/21/2014 66294-Ngpgpwbj Plate 09/20/2014 12351-Gchfbyzy Plate 12/06/2014 50935-Xgwbrqwa Plate 02/21/2015 18803-Sybsxmsb Plate 05/13/2015 82516-Nwseihmh Plate 12/27/2017 60845-Tyqypqai Plate 06/05/2019 78976-Bdthddnq Plate 11/24/2018 28715-Bbjfeawe Plate 03/09/2019 81157-Wlouaqbt Plate 08/25/2018 14192-Jfbdprby Plate 09/18/2019 10005-Nwqtrbge Plate 03/11/2020 41536-Ljvmqhyg Plate 09/27/2017 87659-Jtdoxnhr Plate 12/07/2016 72719-Cqtzgnqd Plate 08/27/2016 93604-Uzaxsnuz Plate 06/01/2016 18637-Juodwtpj Plate 02/24/2016 49663-Xsqxdmms Plate 12/02/2015 72397-Mialjddh Plate 11/03/2012 41398-Tqlzltub Plate 09/09/2015 15478-Weammpvf Plate 06/09/2021 22504-Ffknkcpd Plate 06/13/2020 20157-Hmevkovu Plate 09/08/2021 95079-Apeokdtt Plate 03/13/2021 14198-Lolukgds Plate 09/23/2020 03174-Yrvszlst Plate 01/30/2022 28433-Snyjfwli Plate 06/22/2022 55592-Gqrlxzcq Plate 08/17/2024 65729-Shyqbbcz Plate 01/20/2024 36962-Japbqbjr Plate Each Additional 09/2022 63053-Txiyysnu Plate Each Additional 04/2024 83213-Clxoikth Plate Each Additional 90629-Bzwzbelk Plate Each Additional 14686-Hbbwskiz Plate Each Additional 12/2020 40756-Tgnrsjik Plate Each Additional 27523-Ffbdrsys Plate Each Additional 33165-Ibvswppa Plate Each Additional 05456-Fjnpjolf Plate Each Additional 11393-Tymxdruv Plate Each Additional 05833-Amvgfujp Plate Each Additional 49583-Zmjdumuw Plate Each Additional 79366-Trzrjbxk Plate Each Additional 75079-Tcebyfsm Plate Each Additional 49125-Qtnopilr Plate Each Additional 06/2019 82965-Fuakexxg Plate Each Additional 10/2019 37689-Wwvxhzsb Plate Each Additional 49733-Ynshjfsw Plate Each Additional 12125-Nekoiwpi Plate Each Additional 19173-Wjbftcgb Plate Each Additional 12/2014 15130-Ioukdkob Plate Each Additional 61947-Invjtdso Plate Each Additional 42671-Kzqvqlbr Plate Each Additional 08/2014 62411-Gxkarchn Plate Each Additional 08/2014 32424-Zsbliuhr Plate Each Additional 09/2014 46472-Szgctvur Plate Each Additional 02/2014 70036-Xmqryqmp Plate Each Additional 01/2013 87346-Tkyguxuo Plate Each Additional 98280-Aejvqjdc Plate Each Additional 47624-Pgzwwxwm Plate Each Additional 67570-Puvbrusw Plate Each Additional 42791-Mvxzgvwr Plate Each Additional 92311- Debride <25 sq cm 06/13/2020 14796- Debride <25 sq cm 04/05/2023 96208 I&D ABSCESS- SIMPLE,SINGLE 013 65046 I&D ABSCESS- SIMPLE,SINGLE 013 93692-SZFH SKIN LESIONS, OVER 4 01/24/20 13 47975-VKCM SKIN LESIONS, OVER 4 11/03/19 13 00930-RYXG SKIN LESIONS, OVER 4 04/03/20 13 40311-BVMG SKIN LESIONS, OVER 4 06/28/20 13 08836-LOTO SKIN LESIONS, OVER 4 09/13/20 13 12231-OVYZ SKIN LESIONS, OVER 4 12/14/19 14 52458-RIRL SKIN LESIONS, OVER 4 03/22/20 14 19818-VHKD SKIN LESIONS, OVER 4 06/21/20 14 51871-RZXV SKIN LESIONS, OVER 4 09/20/20 14 85314-IQHH SKIN LESIONS, OVER 4 12/06/19 15 08229-HHQL SKIN LESIONS, OVER 4 02/22/20 15 17818-QBEL SKIN LESIONS, OVER 4 05/13/20 15 83482-TSTI SKIN LESIONS, OVER 4 06/13/20 20 30202-RTCU SKIN LESIONS, OVER 4 09/23/20 20 90822-URRA SKIN LESIONS, OVER 4 03/11/20 20 03850-PAHY SKIN LESIONS, OVER 4 09/18/20 19 94445-TTHF SKIN LESIONS, OVER 4 03/09/20 19 64620-UNJK SKIN LESIONS, OVER 4 06/05/20 19 05471-FXOA SKIN LESIONS, OVER 4 11/24/19 19 96388-JOUZ SKIN LESIONS, OVER 4 08/25/20 18 79051-UKDE SKIN LESIONS, OVER 4 12/28/19 18 09246-LWWR SKIN LESIONS, OVER 4 06/02/20 18 30741-KAZK SKIN LESIONS, OVER 4 09/27/20 17 33947-RGEZ SKIN LESIONS, OVER 4 06/24/20 17 72233-AGFT SKIN LESIONS, OVER 4 12/07/19 17 41057-PKLU SKIN LESIONS, OVER 4 03/11/20 17 75037-PUDL SKIN LESIONS, OVER 4 08/27/20 16 98015-IOMZ SKIN LESIONS, OVER 4 06/01/20 16 56958-SMCL SKIN LESIONS, OVER 4 02/24/20 16 76415-UWHH SKIN LESIONS, OVER 4 12/02/19 16 81630-YIVS SKIN LESIONS, OVER 4 09/09/20 15 55135-PZRS SKIN LESIONS, OVER 4 04/05/20 23 91173-OUSG SKIN LESIONS, OVER 4 07/08/20 23 16189-JKNV SKIN LESIONS, OVER 4 12/29/19 23 19972-NZIX SKIN LESIONS, OVER 4 09/28/20 22 11162-RUKF SKIN LESIONS, OVER 4 06/22/20 22 65009-IXUV SKIN LESIONS, OVER 4 01/31/20 22 57551-NPZN SKIN LESIONS, OVER 4 09/08/20 21 24248-UCGV SKIN LESIONS, OVER 4 06/09/20 21 46864-DYTN SKIN LESIONS, OVER 4 12/02/19 21 48092-XTNS SKIN LESIONS, OVER 4 03/13/20 21 37529-EVAY SKIN LESIONS, OVER 4 08/17/20 24 56886-DPND SKIN LESIONS, OVER 4 05/11/20 24 82402-DFFC SKIN LESIONS, OVER 4 01/20/20 24 12245-WJHJ SKIN LESIONS, OVER 4 10/21/19 24 68327-RHUH SKIN LESIONS, 2 TO 4 06/02/20 12 46763-WMFO SKIN LESIONS, 2 TO 4 03/03/20 12 89597-VCUL SKIN LESIONS, 2 TO 4 12/03/19 12 54262-WPWO SKIN LESIONS, 2 TO 4 10/01/20 11 Next Appt Details Provider Name:Marychuy Kelley , 11/23/2024 02:00:00 PM, [address] [facility], [place], [address], Insurance Providers Payer Name Payer Address Payer Phone Subscriber Number Group Number Insured Name Patient Relationship to Insured Coverage Start Date Coverage End Date [facility] [id number] [place] [address] [id number] Casey Ulrich Self - patient is the [...] kidney disease 04/2020 Hospitalization History Reason Date(Month/[place] [facility] [place]Stress Anxiet y/Covid 07/31 [facility]- Bl[facility] [place] [facility] [place] [facility] [place]- [place] right [place] - saw levar bonilla [facility]- chest pain 10/2015
== END 2024-09-20 12:46 | disposition home or self-care (01) ==
PROVIDERS: Visit Provider Physician Assistant
DX: F32.A Depression, unspecified (principal); U09.9 Post COVID-19 condition, unspecified; S83.92XA Sprain of unspecified site of left knee, initial encounter; S20.219D Contusion of unspecified front wall of thorax, subsequent encounter; Z91.09 Other allergy status, other than to drugs and biological substances

== ENCOUNTER 2024-09-22 11:13 | Outpatient (REF) | payer BC, SELFPAY ==
--- OUTSIDE RECORDS SUMMARY | 2024-09-22 11:16 | XMS_ITS | Patient Health Record ---
Author Organization [facility] Address [address] [place] [address] Care Team Providers Care Sheet Metal Mechanic Name Role Phone Sutart Lozano Primary Care Provider Unav ailable Black, Marychuy Unavailable [phone] Allergies Allergen (clinical drug ingredient) Drug/Non Drug Allergy documented on EMR Reaction Allergy Type Onset Date Status 12 Hour Nasal [place] Unknown Drug Allergy Active Dust Mites Unknown [...] HCI 500 MG as directed Orally Active [place] 3-6-9 Not-Taki ng Aspirin 81 81 MG [...] 13 Not-Takin g Ascorbic Acid Not-Jacek hensley N45-Fzdrda Active Aspirin 81 MG 1 tablet Orally [...] Problem Acquired hammer toe of right foot (0618936526616431) Other hammer toe(s) (acquired), right foot (M20.41) Active confirmed Problem Acquired hammer toe of left foot (5111014446082127) Other hammer toe(s) (acquired), left foot (M20.42) Active confirmed Problem Non-pressure ulcer lower limb (173706207) Non-pressure chronic ulcer of other part of right foot limited to breakdown of skin (L97.511) Active confirmed Problem Polyneuropathy due to diabetes mellitus type I (523009978) 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 Problem Hammer toe (232575879) Hammer toe of left foot (M20.42) Active confirmed Problem 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 (505214596159563) Charcot foot due to diabetes mellitus (E11.610) Active confirmed Problem Unsteady gait (64371878) Unsteady gait (R26.81) Active confirmed Problem Ankle ulcer (227546638) Skin ulcer of right ankle, limited to breakdown of skin (L97.311) Active confirmed Problem Ulcer of toe of right foot (disorder) (36473647685988636) Skin ulcer of toe of right foot, limited to breakdown of skin (L97.511) Active confirmed Problem Acquired equinovarus deformity (06620729) 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) Active confirmed Problem 66844338620121185 Skin ulcer of toe of left foot, limited to breakdown of skin (L97.521) Active confirmed Vital Signs Height 5ft 11in in 08/17/2024 Weight 207 lbs 08/17/2024 BMI 28.87 kg/m2 08/17/2024 Procedures Procedure Date Ordered Date Performed Result Body Sit e 24994-RNASENW NAIL, 6 OR MORE 10/21/2023 N/A 99957-NIGF SKIN LESIONS, OVER 4 10/21/2023 N/A 73336-FGRISOD NAIL, 1-5 01/20/2024 N/A 71443-Ngqulwkg Plate 01/20/2024 N/A 03123-CCBR SKIN LESIONS, OVER 4 01/20/2024 N/A 22801-ZMNDEPY NAIL, 6 OR MORE 05/11/2024 N/A 85829-ERYG SKIN LESIONS, OVER 4 05/11/2024 N/A 14291-UNSDCSF NAIL, 1-5 08/17/2024 N/A 42753-Ypcfwgbk Plate 08/17/2024 N/A 57640-Xzsuexra Plate Each Additional 08/17/2024 N/A 07894-GKLT SKIN LESIONS, OVER 4 08/17/2024 N/A Encounters Encounter Location Date Provider Diagnosis [address] [address] 10/21/2023 Marychuy Black Type 1 diabetes mellitus with diabetic polyneuropathy E10.42 ; Rupture of extensor tendon of foot S96.819A and Tinea unguium B35.[address] [address] 01/20/2024 Marychuy Black Type 1 diabetes mellitus with diabetic polyneuropathy E10.42 ; Tinea unguium B35.1 and Ingrown nail L60.[address] [address] 05/11/2024 Marychuy Black Type 1 diabetes mellitus with diabetic polyneuropathy E10.42 and Tinea unguium B35.[address] [address] 08/17/2024 Marychuy Black Type 1 diabetes mellitus with diabetic polyneuropathy E10.42 ; Tinea unguium B35.1 ; Ingrown nail L60.0 and Skin ulcer of toe of left foot, limited to breakdown of skin L97.[address] [address] 04/18/2024 Marychuy Black [address] [address] 08/22/2024 Marychuy Black Assessments Encounter Date Diagnosis [...] Test Name Order Date Hemoglobin A1c 12/02/2015 99382-CDCVKLW NAIL, 6 OR MORE 05/11/2024 22616-RIZNZFF NAIL, 6 OR MORE 07/08/2023 51315-FNSRBFK NAIL, 6 OR MORE 10/21/2023 94790-UCQVQTW NAIL, 6 OR MORE 12/02/2020 31057-PLQOHCV NAIL, 6 OR MORE 03/13/2021 33549-WQQWMGS NAIL, 6 OR MORE 06/09/2021 17496-UQPUMTB NAIL, 6 OR MORE 09/08/2021 02855-BMPTCYQ NAIL, 6 OR MORE 01/30/2022 10179-UGYMBNG NAIL, 6 OR MORE 06/22/2022 19467-SLCEYBL NAIL, 6 OR MORE 09/28/2022 79749-ABFXUJM NAIL, 6 OR MORE 12/28/2022 89922-PEVJACH NAIL, 6 OR MORE 04/05/2023 91360-IQZDAAQ NAIL, 6 OR MORE 10/01/2011 91276-FGETZZF NAIL, 6 OR MORE 12/03/2011 08881-AYYIEOU NAIL, 6 OR MORE 03/03/2012 58338-FYEJCXV NAIL, 6 OR MORE 06/02/2012 39882-SCVAVSW NAIL, 6 OR MORE 11/03/2012 22504-IECHZTK NAIL, 6 OR MORE 01/23/2013 71328-OVCTGLQ NAIL, 6 OR MORE 04/03/2013 33076-SHKRTPX NAIL, 6 OR MORE 06/28/2013 70806-ILXTNSP NAIL, 6 OR MORE 09/13/2013 09593-LRASPZL NAIL, 6 OR MORE 12/13/2013 87565-VYOESLX NAIL, 6 OR MORE 03/22/2014 54752-ZCIEYLH NAIL, 6 OR MORE 06/21/2014 31137-BETZOXI NAIL, 6 OR MORE 09/20/2014 65893-FWYSZUP NAIL, 6 OR MORE 12/06/2014 13509-DMXOYCG NAIL, 6 OR MORE 02/21/2015 04162-FBPHQBD NAIL, 6 OR MORE 05/13/2015 31804-VNOCGSY NAIL, 6 OR MORE 09/09/2015 82774-JDLTMAP NAIL, 6 OR MORE 12/02/2015 85038-CHLUVWB NAIL, 6 OR MORE 02/24/2016 46860-BGLNAKE NAIL, 6 OR MORE 06/01/2016 33896-JRZQBUO NAIL, 6 OR MORE 08/27/2016 49971-VXUTMVL NAIL, 6 OR MORE 12/07/2016 25430-QIMYJDS NAIL, 6 OR MORE 03/11/2017 39109-LHTXBSW NAIL, 6 OR MORE 06/24/2017 89974-WNRIHMQ NAIL, 6 OR MORE 09/27/2017 30634-CBQGEVG NAIL, 6 OR MORE 12/27/2017 66532-DSLIWVR NAIL, 6 OR MORE 06/02/2018 99760-UGUNHAY NAIL, 6 OR MORE 08/25/2018 25904-CJNTDWQ NAIL, 6 OR MORE 11/24/2018 57042-OUBAOSG NAIL, 6 OR MORE 03/09/2019 95002-BZDIIPI NAIL, 6 OR MORE 06/05/2019 33134-VWPJJTV NAIL, 6 OR MORE 09/18/2019 15209-ICDJRRQ NAIL, 6 OR MORE 03/11/2020 09992-DXXTTUS NAIL, 6 OR MORE 06/13/2020 75037-LSGPXTG NAIL, 6 OR MORE 09/23/2020 57703-RIXDVWT NAIL, 1-5 01/20/2024 58817-ADAFHZZ NAIL, 1-5 08/17/2024 87065-Rybc Destruction, 1-14 09/08/2021 79804-Npcg Destruction, -14 06/09/2021 42846-Cwzx Destruction, -14 03/11/2020 29514-Wpku Destruction, -14 06/05/2019 20976-Avxf Destruction, 10-2409/18/2019 64456-Nmbl Destruction, 10-2403/09/2019 87141-Mgap Destruction, 10-2405/13/2015 73832-Fslu Destruction, 10-2402/21/2015 16067-Xhpt Destruction, 10-2412/06/2014 40197-Ojsl Destruction, 10-2409/20/2014 31280-Kzsd Destruction, 10-2406/21/2014 80091-Kiee Destruction, 10-2403/22/2014 52866-Lcik Destruction, 10-2412/13/2013 20906-Zpau Destruction, 10-2409/13/2013 66800-Pcdv Destruction, 10-2406/28/2013 84144-Doqm Destruction, 10-2404/03/2013 13436-Ucgz Destruction, 10-2401/23/2013 02619-Doum Destruction, 10-2411/03/2012 05614-Sfvx Destruction, 10-2406/02/2012 02227-Ldgt Destruction, 10-2410/01/2011 59515-Norq Destruction, 10-2403/03/2012 80059-Xhub Destruction, 10-2412/03/2011 40714-Lwkyxrqu Plate 03/03/2012 65570-Cqvhcxmg Plate 12/03/2011 81020-Hglwhhdu Plate 06/02/2012 94422-Maiudakw Plate 01/23/2013 93223-Duckzvfn Plate 04/03/2013 27745-Flsxhpvb Plate 06/28/2013 35046-Xufhdgco Plate 09/13/2013 08722-Rypbqyxq Plate 12/13/2013 88118-Tmoruhjx Plate 03/22/2014 28239-Zeodvwwd Plate 06/21/2014 58289-Neflvguu Plate 09/20/2014 15783-Evjiedpw Plate 12/06/2014 46701-Kvithgdc Plate 02/21/2015 07018-Xndggevt Plate 05/13/2015 68610-Ngpsprch Plate 12/27/2017 70390-Rtcyeojm Plate 06/05/2019 59401-Vibrbjvv Plate 11/24/2018 07070-Lhtidaum Plate 03/09/2019 44261-Lvbdarlp Plate 08/25/2018 94728-Ugqzgqkh Plate 09/18/2019 20182-Vsdpkmfq Plate 03/11/2020 38345-Tosnlqyk Plate 09/27/2017 63269-Lntcalpx Plate 12/07/2016 29401-Bvhyyeae Plate 08/27/2016 88691-Stwrjxyz Plate 06/01/2016 15678-Eziojrlm Plate 02/24/2016 36508-Dqwuxsco Plate 12/02/2015 54254-Ghukdvuw Plate 11/03/2012 77664-Jrdavukd Plate 09/09/2015 87084-Drikpyhu Plate 06/09/2021 79510-Zzhguiaj Plate 06/13/2020 07689-Uktbvnya Plate 09/08/2021 36269-Ibbklfjq Plate 03/13/2021 95250-Pwzfznbr Plate 09/23/2020 58250-Vcgamluf Plate 01/30/2022 49680-Bmquxcgp Plate 06/22/2022 18229-Asjichcq Plate 08/17/2024 61360-Ynkrshaf Plate 01/20/2024 98102-Cdjqokib Plate Each Additional 09/2022 81589-Wqquvdsi Plate Each Additional 04/2024 71773-Xxbtnuiw Plate Each Additional 92797-Kilnmbjv Plate Each Additional 66220-Yuaobnss Plate Each Additional 12/2020 46242-Vbcywjek Plate Each Additional 00970-Hebsaoqv Plate Each Additional 34126-Qghtubiq Plate Each Additional 99630-Tvrvqyxj Plate Each Additional 20099-Cctnxbph Plate Each Additional 71543-Qnalhhpi Plate Each Additional 57100-Oxlafdnm Plate Each Additional 26843-Vrqlfzex Plate Each Additional 82249-Eluttabd Plate Each Additional 86263-Ixpnqgyo Plate Each Additional 06/2019 97075-Iphkeifj Plate Each Additional 10/2019 00340-Dllepwij Plate Each Additional 68946-Kimhzggd Plate Each Additional 33844-Qspnxnmy Plate Each Additional 30921-Bwibpndn Plate Each Additional 12/2014 82688-Jrucrzzg Plate Each Additional 56322-Nduqllud Plate Each Additional 93789-Dtenihps Plate Each Additional 08/2014 95663-Btlynjfp Plate Each Additional 08/2014 73316-Bczxhmvl Plate Each Additional 09/2014 88785-Slbqrlzc Plate Each Additional 02/2014 39999-Yogvxbxr Plate Each Additional 01/2013 50178-Xwptomut Plate Each Additional 55074-Cfedghdy Plate Each Additional 06480-Mevtehlf Plate Each Additional 70826-Vftigczn Plate Each Additional 01432-Aekkodml Plate Each Additional 02669- Debride <25 sq cm 06/13/2020 88364- Debride <25 sq cm 04/05/2023 75980 I&D ABSCESS- SIMPLE,SINGLE 013 67900 I&D ABSCESS- SIMPLE,SINGLE 013 38115-VKBI SKIN LESIONS, OVER 4 01/24/20 13 46561-NPVZ SKIN LESIONS, OVER 4 11/03/19 13 07507-SMUK SKIN LESIONS, OVER 4 04/03/20 13 14783-OTLK SKIN LESIONS, OVER 4 06/28/20 13 11068-DNAQ SKIN LESIONS, OVER 4 09/13/20 13 71730-GMIA SKIN LESIONS, OVER 4 12/14/19 14 24858-PXEM SKIN LESIONS, OVER 4 03/22/20 14 38305-NVBU SKIN LESIONS, OVER 4 06/21/20 14 52228-UZGP SKIN LESIONS, OVER 4 09/20/20 14 04063-DHVD SKIN LESIONS, OVER 4 12/06/19 15 17073-XBAQ SKIN LESIONS, OVER 4 02/22/20 15 07058-AOOD SKIN LESIONS, OVER 4 05/13/20 15 84245-GRUI SKIN LESIONS, OVER 4 06/13/20 20 74778-YODO SKIN LESIONS, OVER 4 09/23/20 20 87091-VXZW SKIN LESIONS, OVER 4 03/11/20 20 52473-YGAF SKIN LESIONS, OVER 4 09/18/20 19 98178-BEFF SKIN LESIONS, OVER 4 03/09/20 19 63606-QLJT SKIN LESIONS, OVER 4 06/05/20 19 20884-OCNO SKIN LESIONS, OVER 4 11/24/19 19 00074-HWUG SKIN LESIONS, OVER 4 08/25/20 18 34471-DNTB SKIN LESIONS, OVER 4 12/28/19 18 90386-IYJX SKIN LESIONS, OVER 4 06/02/20 18 67143-DDYU SKIN LESIONS, OVER 4 09/27/20 17 78541-PTPI SKIN LESIONS, OVER 4 06/24/20 17 73615-CIKM SKIN LESIONS, OVER 4 12/07/19 17 45483-VPEN SKIN LESIONS, OVER 4 03/11/20 17 75804-RAHD SKIN LESIONS, OVER 4 08/27/20 16 36703-PRVZ SKIN LESIONS, OVER 4 06/01/20 16 32627-IAVY SKIN LESIONS, OVER 4 02/24/20 16 36931-FXQK SKIN LESIONS, OVER 4 12/02/19 16 96648-YBZU SKIN LESIONS, OVER 4 09/09/20 15 81318-VOYF SKIN LESIONS, OVER 4 04/05/20 23 26523-BXSS SKIN LESIONS, OVER 4 07/08/20 23 00410-OUKG SKIN LESIONS, OVER 4 12/29/19 23 91891-SYPA SKIN LESIONS, OVER 4 09/28/20 22 38964-ZMEQ SKIN LESIONS, OVER 4 06/22/20 22 26658-RMMI SKIN LESIONS, OVER 4 01/31/20 22 88147-QHJR SKIN LESIONS, OVER 4 09/08/20 21 95361-OCMA SKIN LESIONS, OVER 4 06/09/20 21 81270-QTZI SKIN LESIONS, OVER 4 12/02/19 21 78521-UEPQ SKIN LESIONS, OVER 4 03/13/20 21 24187-IMPC SKIN LESIONS, OVER 4 08/17/20 24 04320-IJCT SKIN LESIONS, OVER 4 05/11/20 24 11271-ZYUB SKIN LESIONS, OVER 4 01/20/20 24 17139-LMEH SKIN LESIONS, OVER 4 10/21/19 24 86689-ADSO SKIN LESIONS, 2 TO 4 06/02/20 12 18566-IZHN SKIN LESIONS, 2 TO 4 03/03/20 12 21378-CMPL SKIN LESIONS, 2 TO 4 12/03/19 12 21781-BAJG SKIN LESIONS, 2 TO 4 10/01/20 11 Next Appt Details Provider Name:Marychuy Kelley , 11/23/2024 02:00:00 PM, [address] [facility], [place], [address], Insurance Providers Payer Name Payer Address Payer Phone Subscriber Number Group Number Insured Name Patient Relationship to Insured Coverage Start Date Coverage End Date [facility] [id number] [place] [address] [id number] Casey Ulrich Self - patient is the [...] kidney disease 04/2020 Hospitalization History Reason Date(Month/Year) [facility] [place] Possible Heart Attack/Stress Anxiet y/Covid 07/31 [facility] Bladder [facility] chest pain 10/31 [facility]- Pressure wound right ankle - saw levar bonilla [facility]- chest pain 10/2015
--- OUTSIDE RECORDS SUMMARY | 2024-09-22 11:16 | XMS_ITS ---
Author Organization [facility] Address [address] [place] [address] Care Team Providers Care Artificial Stone Setter Name Role Phone Stuart Lozano Primary Care Provider Unav ailable Warren Marychuy Unavailable [phone] Encounters Encounter Location Date Provider Diagnosis [address] [address] 06/13/2024 Marychuy Kelley Plan Of Treatment Next Appt Details Provider Name:Marychuy Kelley , 11/23/2024 02:00:00 PM, [address] [place], [address], Progress Notes * Casey SEWELL KDOB:[birth year] (79 yo M)Acc No.[id number]:06/13/2024 Progress Note Patient:?Casey SEWELL Provider:?Marychuy Kelley DPM :1945???Age:79 Y???Sex:Male David e:06/13/2024 Address:[address] [place] [address] laury [id number] Pcp:IVORY Mattson Subjective: * Chief Complaints: * ??? * Medical History:? Objective: * Vitals:? Assessment: Plan: * Treatment: * Images: * The named appointment provid er may or may not be the originator of this progress note, and it is not deemed complete until electronically signed by the appointment provider. Sign off status: Pending * Provider:?Marychuy Kelley DPM Date:?2023 Generated for Alfredo logan/Lila/Zo on:?09/22/2024 11:15 AM EST
--- OUTSIDE RECORDS SUMMARY | 2024-09-22 11:16 | XMS_ITS ---
Author Organization [facility] Address [address] [place] [address] Care Team Providers Care Floral Arranger Name Role Phone MARC HERNANDEZ Primary Care Provider Ernesto Beck Unavailable [phone] ALLERGIES No Known Allergies REASON FOR VISIT [...] Cephalexin 500 MG TAKE 1 CAPSULE BY [facility] TWICE A DAY FOR 10 DAYS [...] Encounters Encounter Location Date Provider Diagnosis [facility] [address] [place] [address] 03/08/2024 Ernesto Wu History of adenomato us [...] Provider Name:Ernesto Wu , 10/09/2024 07:30:00 AM, [address] [place] [address] , [place], [place], [phone], Progress Notes * Examination Category Sub-Category Detail [...]
--- OUTSIDE RECORDS SUMMARY | 2024-09-22 11:16 | XMS_ITS ---
Author Organization [facility] Address [address] [place] [address] Care Team Providers Care Managed Care Provider Name Role Phone Stuart Lozano Primary Care Provider Unav ailable Black, Marychuy Unavailable [phone] REASON FOR VISIT rx for AFO Encounters Encounter Location Date Provider Diagnosis [facility] [address] [place] [address] 08/22/2024 Marychuy Black Plan Of Treatment Next Appt Details Provider Name:Marychuy Archer Warren , 11/23/2024 02:00:00 PM, [address] [place], [address], Progress Notes * Casey SEWELL KDOB:[birth year] (79 yo M)Acc No.[id number]:08/22/2024 Patient:?Casey SEWELL :1945???Age:79 Y???Sex:Male Address:[address] [place] [address] [place], [address] * true * Date:? Generated for Printi ng/Fadoeg/eTransmitting on:?09/22/2024 11:15 AM EST
--- OUTSIDE RECORDS SUMMARY | 2024-09-22 11:16 | XMS_ITS ---
Author Organization [facility] Address [address] [place] [address] Care Team Providers Care Manager Php Name Role Phone MARC HERNANDEZ Primary Care Provider Ernesto Beck [phone] REASON FOR VISIT screening, hx polyps,hx colon ca Encounters Encounter Location Date Provider Diagnosis [facility] [address] [place] [phone] 06/21/2024 Ernesto Wu PLAN OF TREATMENT Next Appt Details Provider Name:Ernesto Wu , 10/09/2024 07:30:00 AM, [address] [place] [address], [phone],
--- OUTSIDE RECORDS SUMMARY | 2024-09-22 11:16 | XMS_ITS ---
Author Organization [facility] Address [address] [place] [address] Care Team Providers Care Process Operator Name Role Phone MARC HERNANDEZ Primary Care Provider Ernesto Beck [phone] REASON FOR VISIT medication change. /procedure end of month/waiting on pt call back Encounters Encounter Location Date Provider Diagnosis [facility] [address] [place] [address] 09/12/2024 Ernesto Wu PLAN OF TREATMENT Next Appt Details Provider Name:Ernesto Wu , 10/09/2024 07:30:00 AM, [address] [place] [address] , [place], [place], [phone],
--- OUTSIDE RECORDS SUMMARY | 2024-09-22 11:16 | XMS_ITS ---
Author Organization [facility] Address [address] [place] [address] Care Team Providers Care Noc Technician Name Role Phone Stuart Lozano Primary Care Provider Unav ailable Black, Marychuy Unavailable [phone] Allergies Allergen (clinical drug ingredient) Drug/Non Drug Allergy documented on EMR Reaction Allergy Type Onset Date Status 12 Hour Nasal [place] Unknown Drug Allergy Active Dust Mites Unknown [...] Active Vitamin D Active HumuLIN N Active [place] 3-6-9 Not-Taki ng Berberine HCI 500 MG as directed Orally Active Aspirin 81 81 MG 1 tablet Orally Once a day Not-Taking Vitamin B Complex - as directed Orally Active Flax Seed Oil Active Flax Seeds - as directed Orally Not-Taking Lovastatin Not-Takin g Resveratrol Active Vitamin D3 Active Timolol Maleate PF N ot-Taking Magnesium Not-Taking M45-Afotso Active Social History Tobacco Use: Social History [...] Problem Status W/U Status Risk Notes Problem 60656613162020777 Skin ulcer of toe of left foot, limited to breakdown of skin (L97.521) Active confirmed Vital Signs Height 5ft 11in in 08/17/2024 Weight 207 lbs 08/17/2024 BMI 28.87 kg/m2 08/17/2024 Procedures Procedure Date Ordered Date Performed Result Body Sit e 57328-QTEEYGG NAIL, 1-5 08/17/2024 N/A 07255-Dduuglsj Plate 08/17/2024 N/A 85359-Eautlwfi Plate Each Additional 08/17/2024 N/A 65421-NNNE SKIN LESIONS, OVER 4 08/17/2024 N/A Encounters Encounter Location Date Provider Diagnosis [facility] [address] [place] [address] 08/17/2024 Marychuy Black Type 1 diabetes mellitus [...] Treatment Pending Test Test Name Order Date 32773-QVMUHSH NAIL, 1-5 08/17/2024 02576-Yelcpvow Plate 08/17/2024 00184-Mczibcvt Plate Each Additional 04/2024 22781-UQEA SKIN LESIONS, OVER 4 08/17/20 24 Next Appt Details Follow Up: 2 Weeks,prn, Reas on: Provider Name:Marychuy Kelley , 11/23/2024 02:00:00 PM, [address] [place] [address], [phone], Procedure Notes * Category Sub-Category Detail Notes [...] and future surgical procedures to prevent recurrence (35228/32) , DIABETES: Matricectomy deferred at this time [...] of the wound post debridement is stable (91504) Keratoma Treatment Parring or Cutting o f Benign Hyperkeratotic Lesion(s) 72057 ( >4 Lesions) - The Benign hyperkeratotic [...] use of a nail nipper and/or dremel-type head bone grinder, to a more viable healthy nail plate or bed tissue 1-5. Silver nitrate used for any petechial bleeding as necessary. Definitive antifungal treatment options have been reviewed and discussed with the patient. The patient chooses, no pharmaceutical tx - 30167 Progress Notes * Casey SEWELL KDOB:[birth year] (79 yo M)Acc No.[id number]:08/17/2024 Progress Note Patient:?Thomashamlet Casey Barbara Provider:?Marychuy Kelley DPM :1945???Age:79 Y???Sex:Male David e:08/17/2024 Address:[address] [place], [place] [address] Pcp:IVORY Mattson Subjective: * Chief Complaints: * [...] wound right ankle - [place] minerva bonilla [facility]- [facility] Scan [facility] [place] [facility] Possible Heart Attack/Stress Anxiety/Covid 07/31 * Family [...] ?Points?0 ?Interpretation?Negative ???Miscellaneous:?no Exercise. ?Occupation: Retired. * Medications:?OqdtstN20-Olurx e Vitamin D3 Resveratrol Flax Seed Oil Vitamin B Complex - Tablet as directed Orally Berberine HCI 500 MG Capsule as directed Orally Vitamin D HumuLIN N Zinc Vitamin C 500 MG Capsule as directed Orally Once a dayTurmeric AFO-Hinged as directed Wear DailyTaking U18-Cfwmdd Taking Vitamin D3 Taking Resveratrol Taking Flax [...] Release 1 tablet Orally Once a dayNot-Taking/PRN [place] 3-6-9 Not-Taking/PRN Nattokinase 100 MG Capsule as [...] 2.?Type 1 diabetes mellitus with diabetic polyneuropathy?Procedure: 60479-PCYB SKIN LESIONS, OVER 4 3.?Ingrown nail?Procedure: 27883-Fwjfqxph Plate ?Procedure: 91608-Jvpokslm Plate Each Additional * Procedures:?Debride Nails 1-5:?Procedure:?Performance of this nail treatment by a nonprofessional would put this patients foot and overall health at risk. Therefore, debridement to affected nail(s) as described in exam was performed extensively to reduce/remove overall nail length, girth, thickness, subungual debris, and necrotic tissue, by manual and/or electrical means through the use of a nail nipper and/or dremel-type head bone grinder, to a more viable healthy nail plate or bed tissue 1-5. Silver nitrate used for any petechial bleeding as necessary. Definitive antifungal treatment options have been reviewed and discussed with the patient. The patient chooses, no pharmaceutical tx - 11766.?Debride skin< 25 sq cm:?Open wound?NEUROPATHY: Physician of [...] of the wound post debridement is stable (18144).?Keratoma Treatment:?Parring or Cutting of Benign Hyperkeratotic Lesion(s)?72727 ( >4 Lesions) - The Benign hyperkeratotic [...] and future surgical procedures to prevent recurrence (41168/32) , DIABETES: Matricectomy deferred at this time due to diabetes risk.? * Procedure Codes:?05984 TRIM SKIN LESIONS, OVER 4, Modifiers: XS 07642 Avulsion Plate, Modifiers: [place] [address] Avulsion Plate Each Additional, Modifiers: T5 33576 DEBRIDE NAIL, 1-5, Modifiers: XS 84129 ACTIVE WOUND CARE/20 CM OR <, Modifiers: [...] for Alfredo logan/Lila/Zo on:?09/22/2024 11:15 AM EST History and Physical Notes * [...]
--- OUTSIDE RECORDS SUMMARY | 2024-09-22 11:17 | XMS_ITS | Patient Health Record ---
Author Organization [facility] Address [address] [place] [address] Care Team Providers Care Website Programmer Name Role Phone MARC HERNANDEZ Primary Care Provider Ernesto Beck [phone] ALLERGIES No Known Allergies REASON FOR REFERRAL No Information MEDICATIONS Medication SIG (Take, Route, Frequency, Duration) Notes Start Date End Date Status Dicyclomine HCl 10 MG 1 or 2 capsules Or ally Every 6 hours as needed for abdominal discomfort/cramps for 30 day(s) 10/17/2023 Active Cephalexin 500 MG TAKE 1 CAPSULE BY [facility] TWICE A DAY FOR 10 DAYS [...] adenomatous polyp of colon (Z86.010) Active confirmed 620285797 Problem Encounter for screening for malignant neoplasm of colon (Z12.11) Active confirmed 497713434 Problem Preprocedural examination (Z01.818) Active confirmed 220280022035943 Problem 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 338753257 Problem History of colon cancer (Z85.038) Active confirmed 050826604 Problem Constipation, unspecified constipation type (K59.00) Active confirmed 26732173 Problem Diverticulosis of colon (K57.30) Active confirmed Diverticulosi s of colon (450846486) Problem 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) VITAL SIGNS Temperature 97.7 degrees Fahrenheit 03/08/2024 Blood pressure diastolic 00 mm Hg 03/08/2024 Height 71.5 in 03/08/2024 Blood pressure systolic 000 mm Hg 03/08/2024 Weight 214 lbs 03/08/2024 BMI 29.43 kg/m2 03/08/2024 Encounters Encounter Location Date Provider Diagnosis [facility] [place] [address] [place], [place] [phone] 06/21/2024 Ernesto Wu [facility] [address] [place] [address] 03/08/2024 Ernesto Wu History of adenomato us polyp of colon Z86.010 ; Preprocedural examination Z01.818 ; Encounter for screening for malignant neoplasm of colon Z12.11 ; History of colon cancer Z85.038 and Constipation, unspecified constipation type K59.00 [facility] [address] [place] [address] 10/15/2023 Ernesto Wu [facility] [address] [place] [phone] 09/12/2024 Ernesto Wu ASSESSMENTS Encounter Date Diagnosis [...] Name:Ernesto Meyer Bryce , 10/09/2024 07:30:00 AM, [address] [place] [address] , [place], [place], [phone], Insurance Providers Payer Name Payer Address Payer Phone Subscriber Number Group Number Insured Name Patient Relationship to Insured Coverage Start Date Coverage End Date [facility] [address] [place], [place] [id number] [phone] [id number] MELISSA ELDER Self - patient is the insured MEDICAL (GENERAL) HISTORY Medical History History ICD Code Denies ID,CVA,Lung disease,renal disease IDDM Pulmonary sarcoidosis--inactive Spherocytosis Colonoscopy [...] surgery for stones with Jazlyn Liriano at [facility]
[2024-09-22 13:44] LABS: Iron 183 mcg/dL (45-160); Percent Iron Saturation 79 % (15-50); Total Iron Binding Capacity 231 mcg/dL (228-428); Unsaturated Iron Binding 48 ug/dL
[2024-09-22 13:59] LABS: Ferritin 163 ng/mL (20-250)
[2024-09-24 13:48] LABS: Mitochondrial Antibodies NEGATIVE (NEGATIVE)
== END 2024-09-22 11:14 | disposition home or self-care (01) ==
LOC: HO.HMGCLDS 11:13
PROVIDERS: PCP Nurse Practitioner Family; Visit Provider Nurse Practitioner Family
DX: E83.19 Other disorders of iron metabolism (principal)
CPT/HCPCS: 36415; 81256; 82728; 83540; 86381

== ENCOUNTER 2024-09-29 17:43 | Emergency (ER) | payer BC, SELFPAY ==
--- NOTE | ~2024-09-29 | XR_ITS ---
EXAMINATION: XR CHEST CLINICAL INFORMATION: Chest pain. COMPARISON: Chest radiograph dated 09/19/2024. TECHNIQUE: 2 views of the chest were obtained. FINDINGS: Streaky bibasilar probable atelectasis, right greater than left. No confluent airspace consolidation. No pleural effusion or pneumothorax. Stable cardiomediastinal silhouette. Left upper quadrant surgical clips. XR/XR chest 2V IMPRESSION: Streaky bibasilar probable atelectasis, right greater than left. Electronically signed by: Grabiel Fry MD 09/29/2024 09:21 PM EST
--- NOTE | 2024-09-29 17:44 | ECG_ITS ---
Test Reason : cp Blood Pressure : / mmHG Vent. Rate : 095 BPM Atrial Rate : 095 BPM P-R Int : 162 ms QRS Dur : 084 ms QT Int : 346 ms P-R-T Axes : 056 -38 073 degrees QTc Int : 434 ms Normal sinus rhythm Left axis deviation Abnormal ECG When compared with ECG of 13-SEP-2024 13:28, No significant change was found Referred By: Generic ED Physician Electronically Signed By:STEVE GRIDER
--- OUTSIDE RECORDS SUMMARY | 2024-09-29 17:45 | XMS_ITS ---
Author Organization [facility] Address [address] [place] [address] Care Team Providers Care Tap And Die Maker Technician Name Role Phone Stuart Lozano Primary Care Provider Unav ailable Black, Marychuy Unavailable [phone] REASON FOR VISIT rx for AFO Encounters Encounter Location Date Provider Diagnosis [facility] [address] [place] [address] 08/22/2024 Marychuy Black Plan Of Treatment Next Appt Details Provider Name:Marychuy Archer Warren , 11/23/2024 02:00:00 PM, [address] [place], [address], Progress Notes * Casey SEWELL KDOB:[birth year] (79 yo M)Acc No.[id number]:08/22/2024 Patient:?Casey SEWELL :1945???Age:79 Y???Sex:Male Address:[address] [place] [address] [place], [address] * true * Date:? Generated for Printi ng/Fadoeg/eTransmitting on:?09/29/2024 05:45 PM EST
--- OUTSIDE RECORDS SUMMARY | 2024-09-29 17:45 | XMS_ITS ---
Author Organization [facility] Address [address] [place] [address] Care Team Providers Care Supervisor Pipe Finishing Name Role Phone Stuart Lozano Primary Care Provider Unav ailable Warren Marychuy Unavailable [phone] Encounters Encounter Location Date Provider Diagnosis [address] [address] 06/13/2024 Marychuy Kelley Plan Of Treatment Next Appt Details Provider Name:Marychuy Kelley , 11/23/2024 02:00:00 PM, [address] [place], [address], Progress Notes * Casey SEWELL KDOB:[birth year] (79 yo M)Acc No.[id number]:06/13/2024 Progress Note Patient:?Casey SEWELL Provider:?Marychuy Kelley DPM :1945???Age:79 Y???Sex:Male David e:06/13/2024 Address:[address] [place] [address] laury [phone] Pcp:IVORY Mattson Subjective: * Chief Complaints: * ??? * Medical History:? Objective: * Vitals:? Assessment: Plan: * Treatment: * Images: * The named appointment provid er may or may not be the originator of this progress note, and it is not deemed complete until electronically signed by the appointment provider. Sign off status: Pending * Provider:?Marychuy Kellye DPM Date:?2023 Generated for Alfredo logan/Lila/Zo on:?09/29/2024 05:45 PM EST
--- OUTSIDE RECORDS SUMMARY | 2024-09-29 17:45 | XMS_ITS ---
[facility] Address [address] [place] [address] Care Team Providers Care Data Entry Coordinator Name Role Phone Stuart Lozano Primary Care Provider Unav ailable Black, Marychuy Unavailable [phone] Allergies Allergen (clinical drug ingredient) Drug/Non Drug Allergy documented on EMR Reaction Allergy Type Onset Date Status 12 Hour Nasal [place] Unknown Drug Allergy Active Dust Mites Unknown [...] Active Vitamin D Active HumuLIN N Active Eagle 3-6-9 Not-Taki ng Berberine HCI 500 MG as directed Orally Active Aspirin 81 81 MG 1 tablet Orally Once a day Not-Taking Vitamin B Complex - as directed Orally Active Flax Seed Oil Active Flax Seeds - as directed Orally Not-Taking Lovastatin Not-Takin g Resveratrol Active Vitamin D3 Active Timolol Maleate PF N ot-Taking Magnesium Not-Taking A47-Hinneh Active Social History Tobacco Use: Social History [...] Problem Status W/U Status Risk Notes Problem [id number] Skin ulcer of toe of left foot, limited to breakdown of skin (L97.521) Active confirmed Vital Signs Height 5ft 11in in 08/17/2024 Weight 207 lbs 08/17/2024 BMI 28.87 kg/m2 08/17/2024 Procedures Procedure Date Ordered Date Performed Result Body Sit e 82642-GVEPPLW NAIL, 1-5 08/17/2024 N/A 53853-Anguhmue Plate 08/17/2024 N/A 10739-Crkajawf Plate Each Additional 08/17/2024 N/A 40621-MSHA SKIN LESIONS, OVER 4 08/17/2024 N/A Encounters Encounter Location Date Provider Diagnosis [facility] [place] [address] [place] [address] 08/17/2024 Marychuy Black Type 1 diabetes mellitus [...] Treatment Pending Test Test Name Order Date 26764-FOMXBAL NAIL, 1-5 08/17/2024 67050-Boaauonw Plate 08/17/2024 80029-Asbomqbj Plate Each Additional 04/2024 29345-ESWS SKIN LESIONS, OVER 4 08/17/20 24 Next Appt Details Follow Up: 2 Weeks,prn, Reas on: Provider Name:Marychuy Kelley , 11/23/2024 02:00:00 PM, [address] [place] [address], [phone], Procedure Notes * Category Sub-Category Detail Notes [...] and future surgical procedures to prevent recurrence (71501/32) , DIABETES: Matricectomy deferred at this time [...] of the wound post debridement is stable (63472) Keratoma Treatment Parring or Cutting o f Benign Hyperkeratotic Lesion(s) 45922 ( >4 Lesions) - The Benign hyperkeratotic [...] use of a nail nipper and/or dremel-type flat grinder operator, to a more viable healthy nail plate or bed tissue 1-5. Silver nitrate used for any petechial bleeding as necessary. Definitive antifungal treatment options have been reviewed and discussed with the patient. The patient chooses, no pharmaceutical tx - 57469 Progress Notes * Casey SEWELL KDOB:[birth year] (79 yo M)Acc No.[id number]:08/17/2024 Progress Note Patient:?Thomashamlet Casey Barbara Provider:?Marychuy Kelley DPM :1945???Age:79 Y???Sex:Male David e:08/17/2024 Address:[address] [place], [place] [phone] Pcp:IVORY Mattson Subjective: * Chief Complaints: * [...] wound right ankle - saw minerva bonilla [facility] [place] chest pain 10/31C- CT Scan [facility]- Bladder Scan [facility] [place]- Possible Heart Attack/Stress Anxiety/Covid 07/31 * Family [...] ?Points?0 ?Interpretation?Negative ???Miscellaneous:?no Exercise. ?Occupation: Retired. * Medications:?YukpclS76-Iujwo e Vitamin D3 Resveratrol Flax Seed Oil Vitamin B Complex - Tablet as directed Orally Berberine HCI 500 MG Capsule as directed Orally Vitamin D HumuLIN N Zinc Vitamin C 500 MG Capsule as directed Orally Once a dayTurmeric AFO-Hinged as directed Wear DailyTaking X25-Lojvxt Taking Vitamin D3 Taking Resveratrol Taking Flax [...] Release 1 tablet Orally Once a dayNot-Taking/PRN Eagle 3-6-9 Not-Taking/PRN Nattokinase 100 MG Capsule as [...] 2.?Type 1 diabetes mellitus with diabetic polyneuropathy?Procedure: 40002-DIJX SKIN LESIONS, OVER 4 3.?Ingrown nail?Procedure: 93336-Chwfgdek Plate ?Procedure: 03053-Dntferqo Plate Each Additional * Procedures:?Debride Nails 1-5:?Procedure:?Performance of this nail treatment by a nonprofessional would put this patients foot and overall health at risk. Therefore, debridement to affected nail(s) as described in exam was performed extensively to reduce/remove overall nail length, girth, thickness, subungual debris, and necrotic tissue, by manual and/or electrical means through the use of a nail nipper and/or dremel-type flat grinder operator, to a more viable healthy nail plate or bed tissue 1-5. Silver nitrate used for any petechial bleeding as necessary. Definitive antifungal treatment options have been reviewed and discussed with the patient. The patient chooses, no pharmaceutical tx - 75410.?Debride skin< 25 sq cm:?Open wound?NEUROPATHY: Physician of [...] of the wound post debridement is stable (33230).?Keratoma Treatment:?Parring or Cutting of Benign Hyperkeratotic Lesion(s)?09229 ( >4 Lesions) - The Benign hyperkeratotic [...] and future surgical procedures to prevent recurrence (06990/32) , DIABETES: Matricectomy deferred at this time due to diabetes risk.? * Procedure Codes:?92216 TRIM SKIN LESIONS, OVER 4, Modifiers: XS 79263 Avulsion Plate, [place]: [place] [address] Avulsion Plate Each Additional, Modifiers: T5 29510 DEBRIDE NAIL, 1-5, Modifiers: XS 63583 ACTIVE WOUND CARE/20 CM OR <, Modifiers: [...] Kelley DPM Date:?2023 Generated for Alfredo logan/Lila/Zo on:?09/29/2024 05:45 PM EST History and Physical Notes * [...] Eye Exam:: no retin opathy Vascular DP PULSES (B): 1/4, B/L PT PULSES (B): 1/4, B/L TROPHIC CONDITION-TEXTURE/ELASTICITY/TUR GOR/HAIR GROWTH (B): EDEMA (C): PIGMENTATION: Nails NAILS are: Elongated, overg rown, dystrophic, lytic, greater than 3mm thick, discolored and friable with crumbly malodorous subungual debris, with dull to no pain on palpation due to neuropathy, T2, T3, T4, T6,
--- OUTSIDE RECORDS SUMMARY | 2024-09-29 17:46 | XMS_ITS ---
Author Organization [facility] Address [address] [place] [address] Care Team Providers Care Lineman A Class Name Role Phone MARC HERNANDEZ Primary Care Provider Ernesto Beck [phone] REASON FOR VISIT screening, hx polyps,hx colon ca Encounters Encounter Location Date Provider Diagnosis [facility] [place] [address] [place] [phone] 06/21/2024 Ernesto Wu PLAN OF TREATMENT Next Appt Details Provider Name:Ernesto Wu , 10/09/2024 07:30:00 AM, [address] [place] [address], [phone],
--- OUTSIDE RECORDS SUMMARY | 2024-09-29 17:46 | XMS_ITS ---
Author Organization [facility] Address [address] [place] [address] Care Team Providers Care Blood Coordinator Name Role Phone MARC HERNANDEZ Primary Care Provider Ernesto Beck [phone] REASON FOR VISIT medication change. /procedure end of month/waiting on pt call back Encounters Encounter Location Date Provider Diagnosis [facility] [address] [place] [address] 09/12/2024 Ernesto Wu PLAN OF TREATMENT Next Appt Details Provider Name:Ernesto Wu , 10/09/2024 07:30:00 AM, [address] [place] [address] , [place], [place], [phone],
--- OUTSIDE RECORDS SUMMARY | 2024-09-29 17:46 | XMS_ITS ---
Author Organization [facility] Address [address] [place] [address] Care Team Providers Care Plastic Mould Maker Name Role Phone MARC HERNANDEZ Primary Care Provider Ernesto Beck Unavailable [phone] ALLERGIES No Known Allergies REASON FOR VISIT [...] 500 MG TAKE 1 CAPSULE BY [facility] TWICE A DAY FOR 10 DAYS [...] 03/08/2024 Encounters Encounter Location Date Provider Diagnosis [facility] [address] [place] [address] 03/08/2024 Ernesto Wu History of adenomato us [...] Provider Name:Ernesto Wu , 10/09/2024 07:30:00 AM, [address] [place] [address] , [place], [place], [phone], Progress Notes * Examination Category Sub-Category Detail [...]
--- OUTSIDE RECORDS SUMMARY | 2024-09-29 17:46 | XMS_ITS | Patient Health Record ---
Author Organization [facility] Address [address] [place] [address] Care Team Providers Care Metal Riveting Machine Operator Name Role Phone Stuart Lozano Primary Care Provider Unav ailable Black, Marychuy Unavailable [phone] Allergies Allergen (clinical drug ingredient) Drug/Non Drug Allergy documented on EMR Reaction Allergy Type Onset Date Status 12 Hour Nasal [place] Unknown Drug Allergy Active Dust Mites Unknown [...] HCI 500 MG as directed Orally Active [place] 3-6-9 Not-Taki ng Aspirin 81 81 MG [...] 13 Not-Takin g Ascorbic Acid Not-Jacek hensley Q37-Xkbtss Active Aspirin 81 MG 1 tablet Orally [...] Problem Acquired hammer toe of right foot (6675112584785363) Other hammer toe(s) (acquired), right foot (M20.41) Active confirmed Problem Acquired hammer toe of left foot (0941812755141377) Other hammer toe(s) (acquired), left foot (M20.42) Active confirmed Problem Non-pressure ulcer lower limb (843998585) Non-pressure chronic ulcer of other part of right foot limited to breakdown of skin (L97.511) Active confirmed Problem Polyneuropathy due to diabetes mellitus type I (777668023) 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 Problem Hammer toe (942125629) Hammer toe of left foot (M20.42) Active confirmed Problem 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 (274624037452866) Charcot foot due to diabetes mellitus (E11.610) Active confirmed Problem Unsteady gait (50128664) Unsteady gait (R26.81) Active confirmed Problem Ankle ulcer (003026063) Skin ulcer of right ankle, limited to breakdown of skin (L97.311) Active confirmed Problem Ulcer of toe of right foot (disorder) (23952442202228025) Skin ulcer of toe of right foot, limited to breakdown of skin (L97.511) Active confirmed Problem Acquired equinovarus deformity (43180932) 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) Active confirmed Problem 05628392229033297 Skin ulcer of toe of left foot, limited to breakdown of skin (L97.521) Active confirmed Vital Signs Height 5ft 11in in 08/17/2024 Weight 207 lbs 08/17/2024 BMI 28.87 kg/m2 08/17/2024 Procedures Procedure Date Ordered Date Performed Result Body Sit e 05202-XQNSZXC NAIL, 6 OR MORE 10/21/2023 N/A 88570-UPRW SKIN LESIONS, OVER 4 10/21/2023 N/A 98938-SFPLIQF NAIL, 1-5 01/20/2024 N/A 57289-Rkcmvjqr Plate 01/20/2024 N/A 68628-PEJA SKIN LESIONS, OVER 4 01/20/2024 N/A 16564-RYIVSSK NAIL, 6 OR MORE 05/11/2024 N/A 24361-CBSD SKIN LESIONS, OVER 4 05/11/2024 N/A 05695-PCRKUUX NAIL, 1-5 08/17/2024 N/A 04375-Htvbzacd Plate 08/17/2024 N/A 37802-Jxurwair Plate Each Additional 08/17/2024 N/A 68821-QQOB SKIN LESIONS, OVER 4 08/17/2024 N/A Encounters Encounter Location Date Provider Diagnosis [address] [address] 10/21/2023 Marychuy Black Type 1 diabetes mellitus with diabetic polyneuropathy E10.42 ; Rupture of extensor tendon of foot S96.819A and Tinea unguium B35.[address] [address] 01/20/2024 Marychuy Black Type 1 diabetes mellitus with diabetic polyneuropathy E10.42 ; Tinea unguium B35.1 and Ingrown nail L60.[address] [address] 05/11/2024 Marychuy Black Type 1 diabetes mellitus with diabetic polyneuropathy E10.42 and Tinea unguium B35.[address] [address] 08/17/2024 Marychuy Black Type 1 diabetes mellitus with diabetic polyneuropathy E10.42 ; Tinea unguium B35.1 ; Ingrown nail L60.0 and Skin ulcer of toe of left foot, limited to breakdown of skin L97.[address] [address] 04/18/2024 Marychuy Black [address] [address] 08/22/2024 Marychuy Black Assessments Encounter Date Diagnosis [...] Test Name Order Date Hemoglobin A1c 12/02/2015 50577-GOOLOPK NAIL, 6 OR MORE 05/11/2024 71491-VESLTVI NAIL, 6 OR MORE 07/08/2023 18099-GKBYLFR NAIL, 6 OR MORE 10/21/2023 01370-DZEOTCE NAIL, 6 OR MORE 12/02/2020 23106-VEWJEDA NAIL, 6 OR MORE 03/13/2021 74833-CHOXKIB NAIL, 6 OR MORE 06/09/2021 78615-ZUVJPKM NAIL, 6 OR MORE 09/08/2021 80737-TTJGBXV NAIL, 6 OR MORE 01/30/2022 31418-KIOJDYP NAIL, 6 OR MORE 06/22/2022 02951-IXAUYRZ NAIL, 6 OR MORE 09/28/2022 49455-YZUSQYM NAIL, 6 OR MORE 12/28/2022 22053-BFMDDIW NAIL, 6 OR MORE 04/05/2023 10712-OOMUWIG NAIL, 6 OR MORE 10/01/2011 61658-BLDCMMM NAIL, 6 OR MORE 12/03/2011 01600-QHKOSMH NAIL, 6 OR MORE 03/03/2012 31244-NQCKLCY NAIL, 6 OR MORE 06/02/2012 32103-PNDKXNO NAIL, 6 OR MORE 11/03/2012 28747-UKJVJEO NAIL, 6 OR MORE 01/23/2013 53494-QBOMFIW NAIL, 6 OR MORE 04/03/2013 06748-MBWRTRK NAIL, 6 OR MORE 06/28/2013 58956-ZPUSWUN NAIL, 6 OR MORE 09/13/2013 14228-ZQSDMGK NAIL, 6 OR MORE 12/13/2013 56152-SUBROKS NAIL, 6 OR MORE 03/22/2014 79104-GBLTALO NAIL, 6 OR MORE 06/21/2014 33047-ZXSNGEG NAIL, 6 OR MORE 09/20/2014 72569-ABSQADI NAIL, 6 OR MORE 12/06/2014 06156-KVHVIEE NAIL, 6 OR MORE 02/21/2015 45395-GEHFWXU NAIL, 6 OR MORE 05/13/2015 74317-DLIRNGH NAIL, 6 OR MORE 09/09/2015 94437-DRDWTUV NAIL, 6 OR MORE 12/02/2015 73569-KTQCZBV NAIL, 6 OR MORE 02/24/2016 76032-BIPBKXE NAIL, 6 OR MORE 06/01/2016 58372-ZUMSEVJ NAIL, 6 OR MORE 08/27/2016 83104-IEPGDWQ NAIL, 6 OR MORE 12/07/2016 71813-OQBLBDL NAIL, 6 OR MORE 03/11/2017 06816-DTORERO NAIL, 6 OR MORE 06/24/2017 39289-CHFPBAM NAIL, 6 OR MORE 09/27/2017 71419-GTQZEKF NAIL, 6 OR MORE 12/27/2017 57918-VGTJQLU NAIL, 6 OR MORE 06/02/2018 75496-DMUAJRP NAIL, 6 OR MORE 08/25/2018 60380-ZJLMFWJ NAIL, 6 OR MORE 11/24/2018 50458-TGSCKVK NAIL, 6 OR MORE 03/09/2019 11864-SAPBMIA NAIL, 6 OR MORE 06/05/2019 54626-HWGOBIW NAIL, 6 OR MORE 09/18/2019 35659-VNLTOVJ NAIL, 6 OR MORE 03/11/2020 90756-XWUSMRS NAIL, 6 OR MORE 06/13/2020 37027-ROKULXZ NAIL, 6 OR MORE 09/23/2020 11007-KTRBQVS NAIL, 1-5 01/20/2024 02755-ZCUMKOO NAIL, 1-5 08/17/2024 38391-Slwg Destruction, 1-14 09/08/2021 78319-Kxrl Destruction, -14 06/09/2021 99661-Slxc Destruction, -14 03/11/2020 07944-Jewt Destruction, -14 06/05/2019 59717-Tzqd Destruction, 10-2409/18/2019 99511-Yped Destruction, 10-2403/09/2019 85389-Sjia Destruction, 10-2405/13/2015 58168-Jyur Destruction, 10-2402/21/2015 77685-Wcom Destruction, 10-2412/06/2014 66563-Tfhe Destruction, 10-2409/20/2014 77097-Ypqm Destruction, 10-2406/21/2014 99894-Rxvp Destruction, 10-2403/22/2014 53628-Mbtc Destruction, 10-2412/13/2013 61495-Yffe Destruction, 10-2409/13/2013 82592-Xmba Destruction, 10-2406/28/2013 41311-Pqif Destruction, 10-2404/03/2013 35268-Sshn Destruction, 10-2401/23/2013 98221-Rqiz Destruction, 10-2411/03/2012 89324-Fthu Destruction, 10-2406/02/2012 65074-Ioae Destruction, 10-2410/01/2011 67221-Pklz Destruction, 10-2403/03/2012 97031-Ohvh Destruction, 10-2412/03/2011 03060-Zvgrxqvk Plate 03/03/2012 23525-Szummukl Plate 12/03/2011 33034-Swpjibik Plate 06/02/2012 01207-Jfnpniqq Plate 01/23/2013 27412-Wsthameo Plate 04/03/2013 91464-Sxjdwcbh Plate 06/28/2013 84789-Ichwekkp Plate 09/13/2013 95540-Pjzdfvmi Plate 12/13/2013 52052-Qvbdrwcs Plate 03/22/2014 26373-Sxkrrheu Plate 06/21/2014 13432-Mzmthzit Plate 09/20/2014 41664-Tugaavgq Plate 12/06/2014 60415-Xxsntcdh Plate 02/21/2015 93496-Nxlqmwaj Plate 05/13/2015 68998-Utiksnpw Plate 12/27/2017 55413-Gmgyiiau Plate 06/05/2019 35563-Gnrjphpu Plate 11/24/2018 29345-Tbqphojv Plate 03/09/2019 72299-Kxhlmqhd Plate 08/25/2018 57165-Wioacazu Plate 09/18/2019 93051-Drcqzunw Plate 03/11/2020 75621-Nustcqkk Plate 09/27/2017 26513-Abmkectc Plate 12/07/2016 24703-Akyyrugx Plate 08/27/2016 24625-Vtubfeus Plate 06/01/2016 29179-Ltxsmxka Plate 02/24/2016 04423-Ujyqjaee Plate 12/02/2015 52216-Yrlfjpnq Plate 11/03/2012 80994-Iwonsmpl Plate 09/09/2015 66355-Fncvbjwl Plate 06/09/2021 11551-Ptufqiny Plate 06/13/2020 17934-Duhvrdgu Plate 09/08/2021 80783-Njslpyox Plate 03/13/2021 43431-Naygqdxc Plate 09/23/2020 03221-Cynecqde Plate 01/30/2022 86062-Yspddqbm Plate 06/22/2022 15462-Xgdwgbah Plate 08/17/2024 55231-Epzbqlfv Plate 01/20/2024 17072-Lufrimtc Plate Each Additional 09/2022 29904-Uetbtxcy Plate Each Additional 04/2024 77430-Xrevmqff Plate Each Additional 73031-Fephdqam Plate Each Additional 18973-Qkqfjbgx Plate Each Additional 12/2020 20327-Khmnjzpk Plate Each Additional 85818-Rrgkooio Plate Each Additional 98193-Pxjzxndn Plate Each Additional 75345-Mpxyjcec Plate Each Additional 88501-Pgomfuuy Plate Each Additional 30559-Gupqwskp Plate Each Additional 21082-Ebrfbmjd Plate Each Additional 11441-Xnchloju Plate Each Additional 19664-Xvqaadke Plate Each Additional 24048-Dobtkrqx Plate Each Additional 06/2019 65169-Qksamgsp Plate Each Additional 10/2019 01290-Nyvdhfab Plate Each Additional 02581-Rkespkbc Plate Each Additional 68155-Ufuysmkf Plate Each Additional 25264-Xpxbyory Plate Each Additional 12/2014 67733-Fcseihto Plate Each Additional 08978-Isbbkxmq Plate Each Additional 76128-Kgdkhawc Plate Each Additional 08/2014 70629-Ccgebikc Plate Each Additional 08/2014 96913-Wvmcdvhn Plate Each Additional 09/2014 50490-Fvpwavlb Plate Each Additional 02/2014 20217-Fmqbnvzh Plate Each Additional 01/2013 70745-Ymhsqeav Plate Each Additional 83797-Aiapfnyv Plate Each Additional 09129-Bzzukxex Plate Each Additional 15279-Rvzhpsfb Plate Each Additional 51058-Zozvirvu Plate Each Additional 10387- Debride <25 sq cm 06/13/2020 17972- Debride <25 sq cm 04/05/2023 64123 I&D ABSCESS- SIMPLE,SINGLE 013 50331 I&D ABSCESS- SIMPLE,SINGLE 013 51825-LFMN SKIN LESIONS, OVER 4 01/24/20 13 94873-BPYP SKIN LESIONS, OVER 4 11/03/19 13 11450-LHJN SKIN LESIONS, OVER 4 04/03/20 13 81129-AILM SKIN LESIONS, OVER 4 06/28/20 13 24152-NQHX SKIN LESIONS, OVER 4 09/13/20 13 53570-DJFL SKIN LESIONS, OVER 4 12/14/19 14 35340-ROQK SKIN LESIONS, OVER 4 03/22/20 14 37472-BZIW SKIN LESIONS, OVER 4 06/21/20 14 54906-RASH SKIN LESIONS, OVER 4 09/20/20 14 42825-VRJJ SKIN LESIONS, OVER 4 12/06/19 15 98217-MFSL SKIN LESIONS, OVER 4 02/22/20 15 44470-VCCO SKIN LESIONS, OVER 4 05/13/20 15 98740-QWEM SKIN LESIONS, OVER 4 06/13/20 20 26797-OZPL SKIN LESIONS, OVER 4 09/23/20 20 35346-SASE SKIN LESIONS, OVER 4 03/11/20 20 17910-TGOX SKIN LESIONS, OVER 4 09/18/20 19 11968-YUPM SKIN LESIONS, OVER 4 03/09/20 19 85149-XYKV SKIN LESIONS, OVER 4 06/05/20 19 00859-JDHL SKIN LESIONS, OVER 4 11/24/19 19 50174-SGUV SKIN LESIONS, OVER 4 08/25/20 18 77349-WJVL SKIN LESIONS, OVER 4 12/28/19 18 71554-VFAN SKIN LESIONS, OVER 4 06/02/20 18 02834-EXNM SKIN LESIONS, OVER 4 09/27/20 17 37271-EWMA SKIN LESIONS, OVER 4 06/24/20 17 21814-CYRC SKIN LESIONS, OVER 4 12/07/19 17 02278-MMPM SKIN LESIONS, OVER 4 03/11/20 17 88785-BWOO SKIN LESIONS, OVER 4 08/27/20 16 25631-MVJO SKIN LESIONS, OVER 4 06/01/20 16 00592-HAWV SKIN LESIONS, OVER 4 02/24/20 16 33266-IFVB SKIN LESIONS, OVER 4 12/02/19 16 70258-CXAF SKIN LESIONS, OVER 4 09/09/20 15 08013-UHAR SKIN LESIONS, OVER 4 04/05/20 23 77153-PQSM SKIN LESIONS, OVER 4 07/08/20 23 58413-WLCF SKIN LESIONS, OVER 4 12/29/19 23 22159-KHIJ SKIN LESIONS, OVER 4 09/28/20 22 55420-MJZV SKIN LESIONS, OVER 4 06/22/20 22 19946-DHRR SKIN LESIONS, OVER 4 01/31/20 22 29534-QWAV SKIN LESIONS, OVER 4 09/08/20 21 22771-DJAA SKIN LESIONS, OVER 4 06/09/20 21 92282-LYRO SKIN LESIONS, OVER 4 12/02/19 21 61459-LCJH SKIN LESIONS, OVER 4 03/13/20 21 74093-SWKQ SKIN LESIONS, OVER 4 08/17/20 24 29998-OXBZ SKIN LESIONS, OVER 4 05/11/20 24 20902-NDFN SKIN LESIONS, OVER 4 01/20/20 24 80914-OEOQ SKIN LESIONS, OVER 4 10/21/19 24 53481-IRWQ SKIN LESIONS, 2 TO 4 06/02/20 12 57373-KUES SKIN LESIONS, 2 TO 4 03/03/20 12 84979-ZGEF SKIN LESIONS, 2 TO 4 12/03/19 12 35969-GNIP SKIN LESIONS, 2 TO 4 10/01/20 11 Next Appt Details Provider Name:Marychuy Kelley , 11/23/2024 02:00:00 PM, [address] [facility], [place], [address], Insurance Providers Payer Name Payer Address Payer Phone Subscriber Number Group Number Insured Name Patient Relationship to Insured Coverage Start Date Coverage End Date [facility] [id number] [place] [address] [id number] Casey Ulrich Self - patient is the [...] kidney disease 04/2020 Hospitalization History Reason Date(Month/Year) [facility] [place] Possible Heart Attack/Stress Anxiet y/Covid 07/31 [facility]- Bladder [facility] [place] [facility] [place]- [place] pain [place]31 [facility] [place] Pressure [place] right ankle - saw levar bonilla [facility]- chest pain 10/2015
--- OUTSIDE RECORDS SUMMARY | 2024-09-29 17:46 | XMS_ITS | Patient Health Record ---
Author Organization [facility] Address [address] [place] [address] Care Team Providers Care Leaf Stripper Name Role Phone MARC HERNANDEZ Primary Care Provider Ernesto Beck [phone] ALLERGIES No Known Allergies REASON FOR REFERRAL No Information MEDICATIONS Medication SIG (Take, Route, Frequency, Duration) Notes Start Date End Date Status Dicyclomine HCl 10 MG 1 or 2 capsules Or ally Every 6 hours as needed for abdominal discomfort/cramps for 30 day(s) 10/17/2023 Active Cephalexin 500 MG TAKE 1 CAPSULE BY [facility] TWICE A DAY FOR 10 DAYS [...] adenomatous polyp of colon (Z86.010) Active confirmed 493911348 Problem Encounter for screening for malignant neoplasm of colon (Z12.11) Active confirmed 475404659 Problem Preprocedural examination (Z01.818) Active confirmed 477427524124145 Problem 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 303048486 Problem History of colon cancer (Z85.038) Active confirmed 091686090 Problem Constipation, unspecified constipation type (K59.00) Active confirmed 03898947 Problem Diverticulosis of colon (K57.30) Active confirmed Diverticulosi s of colon (468597174) Problem Hx of Billroth II operation (Z98.0) Active confirmed History of gastrointestinal tract bypass (999642973) VITAL SIGNS Temperature 97.7 degrees Fahrenheit 03/08/2024 Blood pressure diastolic 00 mm Hg 03/08/2024 Height 71.5 in 03/08/2024 Blood pressure systolic 000 mm Hg 03/08/2024 Weight 214 lbs 03/08/2024 BMI 29.43 kg/m2 03/08/2024 Encounters Encounter Location Date Provider Diagnosis [facility] [place] [facility] [address] [place], [place] [id number] 06/21/2024 Ernesto Wu [facility] [address] [place] [address] 03/08/2024 Ernesto Wu History of adenomato us polyp of colon Z86.010 ; Preprocedural examination Z01.818 ; Encounter for screening for malignant neoplasm of colon Z12.11 ; History of colon cancer Z85.038 and Constipation, unspecified constipation type K59.00 [facility] [address] [place] [address] 10/15/2023 Ernesot Wu [facility] [address] [place] [address] 09/12/2024 Ernesto Wu ASSESSMENTS Encounter Date Diagnosis [...] Name:Ernesto Meyer Bryce , 10/09/2024 07:30:00 AM, [address] [place] [address] , [place], [place], [id number], Insurance Providers Payer Name Payer Address Payer Phone Subscriber Number Group Number Insured Name Patient Relationship to Insured Coverage Start Date Coverage End Date [facility] [address] [place], [place] [id number] MELISSA ELDER Self - patient is the insured MEDICAL (GENERAL) HISTORY Medical History History ICD Code Denies [place],CVA,Lung disease,renal disease IDDM Pulmonary sarcoidosis--inactive Spherocytosis Colonoscopy [...] surgery for stones with Jazlyn Liriano at [facility]
[2024-09-29 18:01] VITALS: BP 110/56; PULSE 102; RESP 20; TEMP 36.8; O2SAT 100; BMI 29.5
--- NOTE | 2024-09-29 18:01 | ED.GENADULT ---
HPI - General Adult General Chief complaint: Chest Pain Stated complaint: chest pain Related Data Home Medications ?Medication ?Instructions ?Recorded ?Confirmed zinc 50 mg capsule 50 mg PO DAILY 08/13/20 09/26/24 vitamin B complex 1 cap PO DAILY 10/14/20 09/26/24 berberine-herbal comb no.18 capsule 500 cap PO BID 12/31/22 09/26/24 resvertrol 06/01/23 09/26/24 ascorbate calcium (vitamin C) 500 1.5 g PO DAILY 07/07/23 09/26/24 mg tablet cholecalciferol (vitamin D3) 100 1,200 unit PO DAILY 09/27/23 09/26/24 mcg (4,000 unit) capsule latanoprost 0.005 % eye drops 1 drp ophthalmic (eye) QPM 03/21/24 09/26/24 alpha lipoic acid 200 mg capsule 200 mg PO BID 05/23/24 09/26/24 turmeric (bulk) 95 % powder 95 ea miscellaneous DAILY 07/24/24 09/26/24 (Curcumin) acetaminophen 500 mg tablet 500 mg PO QID PRN fever 09/20/24 09/26/24 acetylcarnitine HCl 250 mg capsule 250 mg PO DAILY 09/26/24 09/26/24 coenzyme Q10 10 mg capsule 10 mg PO DAILY 09/26/24 09/26/24 ginkgo biloba 50 mg capsule 50 mg PO DAILY 09/26/24 09/26/24 ivermectin 6 mg tablet 60 mg PO DAILY 09/26/24 09/26/24 Previous Rx's ?Medication ?Instructions ?Recorded insulin NPH isoph U-100 human 100 30 unit (0.3 mL) subcut BID 90 08/24/22 unit/mL subcutaneous suspension days #60 mL (Humulin N NPH U-100 Insulin (isophane susp)) blood-glucose sensor (FreeStyle #6 ea 04/26/24 Nilsa 3 Sensor device) ketoconazole 2 % topical cream 1 appl topical DAILY 14 days #30 06/02/24 grams leg brace (Ankle Brace) #1 ea 06/28/24 blood sugar diagnostic (Contour #450 ea 09/01/24 Test Strips) insulin syringe-needle U-100 1 mL #200 ea 09/01/24 30 gauge x 1/2 (BD Insulin Syringe Ultra-Fine) Allergies Allergy/AdvReac Type Severity Reaction Status Date / Time penicillamine Allergy Unknown unknown Verified 09/29/24 18:03 [facility] Past Medical History 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 Vitamin D deficiency Cholecystectomy planned Osteoarthritis History of colon cancer CKD (chronic kidney disease) Sarcoidosis Partial nontraumatic amputation of right foot PVD (peripheral vascular disease) Diabetic retinopathy Spherocytosis Skin cancer Peripheral neuropathy Spinal stenosis Renal stones Pulmonary sarcoidosis Diabetes Surgical History History of amputation of foot History of ureter repair H/O splenectomy S/P ureteral reimplantation History of surgical removal of pilonidal cyst History of tonsillectomy and adenoidectomy H/O right hemicolectomy Status post laser lithotripsy of ureteral calculus Hx of cholecystectomy Hx of colonoscopy Family History Family History Mother Thyroid cancer Other Mental health disorder Social History Social History Household Members: Friend(s) Housing: House Are you a primary wild animal caretaker to a significant other at home: No Do you presently have visiting nurse or other home services: No Alcohol intake: never Patient Tobacco Use Status: Never used Tobacco e-Cigarette/Vaping Use: Never Used Second Hand Smoke Exposure: No Advance Directives: No Advance Directives Information Provided: No service: No Current occupational status: employed and retired Cognitive needs: No Hearing needs: No Vision needs: No Physical Exam ED Vital Signs: Vital Signs - 24 hr 09/29/24 18:01 Temperature 98.2 F Pulse Rate 102 H Respiratory Rate 20 Blood Pressure 110/56 L Pulse Oximetry 100 Oxygen Delivery Method Room Air BMI result Body Mass Index 29.5 Course Course Course Narrative: This is a rapid medical exam performed by Felecia Burns NP: Additional HPI, ROS, PE not included below will be deferred to primary provider. Patient is a 79-year-old male with history of post-covid syndrome, CKD, reconstruction of R ureter, sarcoidosis, PVD, DM presenting to the ED with complaint of chest pain since this am. Recently had a fall, was seen here on 09/19 and evaluated for injuries. Plan: EKG, labs, CXR Medical Decision Making Lab Data 09/29/24 18:26 09/29/24 18:26 Labs: Lab Results 09/29/24 Range/Units 18:26 WBC 9.4 (4.8-10.8) X10*3/uL RBC 4.47 L (4.60-5.80) X10*6/uL Hgb 14.4 (14.0-18.0) g/dl Hct 39.3 L (42.0-52.0) % MCV 87.9 (80.0-98.0) fL MCH 32.2 (27.0-33.0) pg MCHC 36.6 H (31.0-36.0) g/dl RDW 12.7 (11.0-16.0) % Plt Count 490 H D (160-400) X10*3/uL MPV 10.2 (9.4-12.4) fL Immature Gran % (Auto) Cancelled Neut % (Auto) Cancelled Lymph % (Auto) Cancelled Robertson % (Auto) Cancelled Eos % (Auto) Cancelled Baso % (Auto) Cancelled Lymph # (Auto) Cancelled Robertson # (Auto) Cancelled Eos # (Auto) Cancelled Baso # (Auto) Cancelled Abs Immat Gran (auto) Cancelled Absolute Neuts (auto) Cancelled Absolute Nucleated RBC 0.000 (0.0-0.012) X10*3/uL Nucleated RBC % (auto) 0.0 (0.0-0.2) /100WBC Neutrophils % (Manual) 64 (45-73) % Band Neutrophils % 1 L (3-5) % Lymphocytes % (Manual) 26 (20-40) % Monocytes % (Manual) 7 (2-11) % Eosinophils % (Manual) 1 (0-4) % Basophils % (Manual) 1 (0-2) % Abs Neuts (Manual) 6.1 (2.0-8.3) X10*3/uL Lymphocytes # (Manual) 2.4 (1.2-4.9) X10*3/uL Monocytes # (Manual) 0.7 (0.1-1.2) X10*3/uL Eosinophils # (Manual) 0.1 (0.0-0.4) X10*3/uL Basophils # (Manual) 0.1 (0.0-0.2) X10*3/uL Platelet Estimate NORMAL (NORMAL) Large Platelets PRESENT Plt Morphology Comment NOTED RBC Morphology NOTED Acanthocytes (Spur) 3+ (>5) /OIF Schistocytes 1+ (0-2) /OIF PT 12.3 (10.9-12.4) SEC INR 1.1 (0.9-1.1) Sodium 138 (135-145) mmol/L Potassium 4.1 (3.3-5.1) mmol/L Chloride 104 (96-108) mmol/L Carbon Dioxide 26 (22-29) mmol/L Anion Gap 12 (12-20) BUN 18 H (9-16) mg/dL Creatinine 1.05 (0.5-1.4) mg/dL Estim Creat Clear Calc 64.5 Estimated GFR > 60 Random Glucose 215 H (60-115) mg/dL Calcium 9.6 D (8.4-10.2) mg/dL Total Bilirubin 1.4 H (0.0-1.0) mg/dL AST 22 (5-37) U/L ALT 18 (0-40) U/L Alkaline Phosphatase 122 H (39-117) U/L Troponin I High Sens < 2.7 (<3.5-35.0) ng/L Total Protein 7.8 (6.5-8.0) g/dL Albumin 3.9 (3.5-5.0) g/dL Influenza Type A (PCR) NEGATIVE (Negative) Influenza Type B (PCR) NEGATIVE (Negative) RSV RNA Qual (PCR) NEGATIVE (Negative) SARS-CoV-2 RNA (RT-PCR) NEGATIVE (Negative) Discharge Plan Discharge Clinical Impression: Diagnosis unknown Patient Disposition: Left W/O Completing Treatment Prescriptions: No Action ketoconazole 2 % cream 1 appl topical DAILY 14 Days Qty: 30 1RF (DME) Contour Test Strips Strip See Rx Instructions .Route Qty: 450 1RF Rx Instructions: 5 times a day (DME) insulin syringe-needle U-100 [BD Insulin Syringe Ultra-Fine] 1 mL 30 gauge x 1/2 syringe See Rx Instructions .Route Qty: 200 3RF Rx Instructions: Use to inject insulin twice per day vitamin B complex Capsule 1 cap PO DAILY latanoprost 0.005 % drops 1 drp ophthalmic (eye) QPM coenzyme Q10 10 mg Capsule 10 mg PO DAILY ivermectin 6 mg Tablet 60 mg PO DAILY ginkgo biloba 50 mg Capsule 50 mg PO DAILY Acetyl L-Carnitine 250 mg Capsule 250 mg PO DAILY zinc 50 mg Capsule 50 mg PO DAILY cholecalciferol (vitamin D3) 100 mcg (4,000 unit) capsule 1,200 unit PO DAILY berberine-herbal comb no.18 Capsule 500 cap PO BID ascorbate calcium (vitamin C) 500 mg tablet 1.5 g PO DAILY Humulin N NPH U-100 Insulin 100 unit/mL suspension 30 unit subcut BID 90 Days Qty: 60 3RF (DME) resvertrol 0 .Route .MEDSUPPLY (DME) FreeStyle Nilsa 3 Sensor Device See Rx Instructions .Route Qty: 6 1RF Rx Instructions: Test blood sugar 4 times per day alpha lipoic acid 200 mg capsule 200 mg PO BID (DME) Ankle Brace Misc See Rx Instructions .ROUTE .MEDSUPPLY Qty: 1 0RF Rx Instructions: LEFT AFO custom molded for foot drop Custom shoes, diabetic foot Curcumin 95 % powder 95 ea miscellaneous DAILY acetaminophen 500 mg tablet 500 mg PO QID PRN (Reason: fever) Discharge Date/Time: 09/29/24 20:51
[2024-09-29 18:38] LABS: Hematocrit 39.3 % (42.0-52.0); Hemoglobin 14.4 g/dl (14.0-18.0); Mean Corpuscular HGB Conc 36.6 g/dl (31.0-36.0); Mean Corpuscular Hemoglobin 32.2 pg (27.0-33.0); Mean Corpuscular Volume 87.9 fL (80.0-98.0); Mean Platelet Volume 10.2 fL (9.4-12.4); Platelet Count 490 X10*3/uL (160-400); Red Blood Count 4.47 X10*6/uL (4.60-5.80); Red Cell Distribution Width 12.7 % (11.0-16.0); WBC ABN SCTR FOR CBC 1; White Blood Count 9.4 X10*3/uL (4.8-10.8)
[2024-09-29 18:42] LABS: INTERNATIONAL NORM RATIO 1.1 (0.9-1.1); Prothrombin Time 12.3 SEC (10.9-12.4)
[2024-09-29 18:51] LABS: Alanine Aminotransferase 18 U/L (0-40); Albumin Level 3.9 g/dL (3.5-5.0); Alkaline Phosphatase 122 U/L (39-117); Anion Gap 12 (12-20); Aspartate Amino Transferase 22 U/L (5-37); Bilirubin Total 1.4 mg/dL (0.0-1.0); Blood Urea Nitrogen 18 mg/dL (9-16); Calcium 9.6 mg/dL (8.4-10.2); Carbon Dioxide 26 mmol/L (22-29); Chloride 104 mmol/L (96-108); Creatinine Clr Calc Pharmacy 64.5; Estimated Glomerular Filt Rate > 60; Glucose Random 215 mg/dL (60-115); Potassium 4.1 mmol/L (3.3-5.1); Sodium 138 mmol/L (135-145); Total Protein 7.8 g/dL (6.5-8.0)
[2024-09-29 18:59] LABS: Troponin-I High Sensitivity < 2.7 ng/L (<3.5-35.0)
[2024-09-29 19:04] LABS: Band Neutrophils Percent 1 % (3-5); Basophils Abs Manual 0.1 X10*3/uL (0.0-0.2); Basophils Percent Manual 1 % (0-2); Eosinophils Absolute Manual 0.1 X10*3/uL (0.0-0.4); Eosinophils Percent Manual 1 % (0-4); Lymphocytes Absolute Manual 2.4 X10*3/uL (1.2-4.9); Lymphocytes Percent Manual 26 % (20-40); Monocytes Absolute Manual 0.7 X10*3/uL (0.1-1.2); Monocytes Percent Manual 7 % (2-11); Neutrophils Absolute Manual 6.1 X10*3/uL (2.0-8.3); Neutrophils Percent Manual 64 % (45-73)
[2024-09-29 19:05] LABS: Acanthocytes 3+ (>5) /OIF; Schistocytes 1+ (0-2) /OIF
[2024-09-29 19:06] LABS: Large Platelet PRESENT; Platelet Estimate NORMAL (NORMAL); Platelet Morphology Comment NOTED
[2024-09-29 19:07] LABS: RBC Morphology NOTED
[2024-09-29 19:20] LABS: Influenza A PCR NEGATIVE (Negative); Influenza B PCR NEGATIVE (Negative); Resp Syncy Virus RNA Qual PCR NEGATIVE (Negative); SARS COV2 PCR INHOUSE NEGATIVE (Negative)
== END 2024-09-29 20:51 | disposition left against medical advice (07) ==
PROVIDERS: Registered Nurse Emergency; Emergency Provider Emergency Medicine; PCP Nurse Practitioner Family
DX: R07.9 Chest pain, unspecified (principal); E11.22 Type 2 diabetes mellitus with diabetic chronic kidney disease; I73.9 Peripheral vascular disease, unspecified; D86.9 Sarcoidosis, unspecified; Z85.038 Personal history of other malignant neoplasm of large intestine; Z79.899 Other long term (current) drug therapy; Z03.818 Encounter for observation for suspected exposure to other biological agents ruled out
CPT/HCPCS: 0241U; 71046; 80053; 84484; 85007; 85027; 85610; 93005; 99283

== ENCOUNTER → 2024-09-29 17:44 | Outpatient (BNV) | payer BC, SELFPAY | PROVIDERS: Emergency Provider Emergency Medicine; PCP Nurse Practitioner Family; Visit Provider Internal Medicine | DX: R07.9 Chest pain, unspecified (principal); R94.31 Abnormal electrocardiogram [ECG] [EKG] | CPT/HCPCS: 93010 ==

== ENCOUNTER 2024-10-02 13:29 | Outpatient (AMB) | payer BC, SELFPAY ==
--- OUTSIDE RECORDS SUMMARY | 2024-10-02 13:35 | XMS_ITS ---
Author Organization [facility] Address [address] [place] [address] Care Team Providers Care Web Production Manager Name Role Phone Stuart Lozano Primary Care Provider Unav ailable Warren Marychuy Unavailable [phone] Encounters Encounter Location Date Provider Diagnosis [address] [address] 06/13/2024 Marychuy Kelley Plan Of Treatment Next Appt Details Provider Name:Marychuy Kelley , 11/23/2024 02:00:00 PM, [address] [place], [address], Progress Notes * Casey SEWELL KDOB:[birth year] (79 yo M)Acc No.[id number]:06/13/2024 Progress Note Patient:?Casey SEWELL Provider:?Marychuy Kelley DPM :1945???Age:79 Y???Sex:Male David e:06/13/2024 Address:[address] [place] [address] laury [phone] Pcp:IVORY Mattson Subjective: * Chief Complaints: * ??? * Medical History:? Objective: * Vitals:? Assessment: Plan: * Treatment: * Images: * The named appointment provid er may or may not be the originator of this progress note, and it is not deemed complete until electronically signed by the appointment provider. Sign off status: Pending * Provider:?Marychuy Kelley DPM Date:?2023 Generated for Alfredo logan/Lila/Zo on:?10/02/2024 01:35 PM EST
--- OUTSIDE RECORDS SUMMARY | 2024-10-02 13:35 | XMS_ITS ---
Author Organization [facility] Address [address] [place] [address] Care Team Providers Care Boom Operator Name Role Phone Stuart Lozano Primary Care Provider Unav ailable Black, Marychuy Unavailable [phone] REASON FOR VISIT rx for AFO Encounters Encounter Location Date Provider Diagnosis [facility] [address] [place] [address] 08/22/2024 Marychuy Black Plan Of Treatment Next Appt Details Provider Name:Marychuy Archer Warren , 11/23/2024 02:00:00 PM, [address] [place], [address], Progress Notes * Casey SEWELL KDOB:[birth year] (79 yo M)Acc No.[id number]:08/22/2024 Patient:?Casey SEWELL :1945???Age:79 Y???Sex:Male Address:[address] [place] [address] [place], [address] * true * Date:? Generated for Printi ng/Fadoeg/eTransmitting on:?10/02/2024 01:35 PM EST
--- OUTSIDE RECORDS SUMMARY | 2024-10-02 13:35 | XMS_ITS ---
Author [facility] [place] Address [address] [place] [address] Care Team Providers Care Slunk Skinner Name Role Phone Stuart Lozano Primary Care Provider Unav ailable Black, Marychuy Unavailable [phone] Allergies Allergen (clinical drug ingredient) Drug/Non Drug Allergy documented on EMR Reaction Allergy Type Onset Date Status 12 Hour Nasal [place] Unknown Drug Allergy Active Dust Mites Unknown [...] Active Vitamin D Active HumuLIN N Active Stratford 3-6-9 Not-Taki ng Berberine HCI 500 MG as directed Orally Active Aspirin 81 81 MG 1 tablet Orally Once a day Not-Taking Vitamin B Complex - as directed Orally Active Flax Seed Oil Active Flax Seeds - as directed Orally Not-Taking Lovastatin Not-Takin g Resveratrol Active Vitamin D3 Active Timolol Maleate PF N ot-Taking Magnesium Not-Taking Q16-Qhzlny Active Social History Tobacco Use: Social History [...] Problem Status W/U Status Risk Notes Problem 24553614093791480 Skin ulcer of toe of left foot, limited to breakdown of skin (L97.521) Active confirmed Vital Signs Height 5ft 11in in 08/17/2024 Weight 207 lbs 08/17/2024 BMI 28.87 kg/m2 08/17/2024 Procedures Procedure Date Ordered Date Performed Result Body Sit e 85645-MEESKYC NAIL, 1-5 08/17/2024 N/A 96837-Urkmnjrc Plate 08/17/2024 N/A 76544-Xsdwqsqr Plate Each Additional 08/17/2024 N/A 04888-YUEX SKIN LESIONS, OVER 4 08/17/2024 N/A Encounters Encounter Location Date Provider Diagnosis [facility] [address] [place] [address] 08/17/2024 Marychuy Black Type 1 diabetes mellitus [...] Treatment Pending Test Test Name Order Date 34393-JOJRGBJ NAIL, 1-5 08/17/2024 79737-Nctgwfst Plate 08/17/2024 24170-Vfogatgb Plate Each Additional 04/2024 03722-EKCE SKIN LESIONS, OVER 4 08/17/20 24 Next Appt Details Follow Up: 2 Weeks,prn, Reas on: Provider Name:Marychuy Kelley , 11/23/2024 02:00:00 PM, [address] [place] [address], [phone], Procedure Notes * Category Sub-Category Detail Notes [...] and future surgical procedures to prevent recurrence (28522/32) , DIABETES: Matricectomy deferred at this time [...] of the wound post debridement is stable (54759) Keratoma Treatment Parring or Cutting o f Benign Hyperkeratotic Lesion(s) 35579 ( >4 Lesions) - The Benign hyperkeratotic [...] use of a nail nipper and/or dremel-type grinder watch parts, to a more viable healthy nail plate or bed tissue 1-5. Silver nitrate used for any petechial bleeding as necessary. Definitive antifungal treatment options have been reviewed and discussed with the patient. The patient chooses, no pharmaceutical tx - 06241 Progress Notes * Casey SEWELL KDOB:[birth year] (79 yo M)Acc No.[id number]:08/17/2024 Progress Note Patient:?Thomashamlet Casey Barbara Provider:?Marychuy Kelley DPM :1945???Age:79 Y???Sex:Male David e:08/17/2024 Address:[address] [place], [place] [phone] Pcp:IVORY Mattson Subjective: * Chief Complaints: * [...] ankle - [place] [facility] [place]- [facility]- [facility] [place] [facility] [place]- Possible Heart Attack/Stress Anxiety/Covid 07/31 * Family [...] ?Points?0 ?Interpretation?Negative ???Miscellaneous:?no Exercise. ?Occupation: Retired. * Medications:?UoacgdD23-Crtql e Vitamin D3 Resveratrol Flax Seed Oil Vitamin B Complex - Tablet as directed Orally Berberine HCI 500 MG Capsule as directed Orally Vitamin D HumuLIN N Zinc Vitamin C 500 MG Capsule as directed Orally Once a dayTurmeric AFO-Hinged as directed Wear DailyTaking G32-Ybarrq Taking Vitamin D3 Taking Resveratrol Taking Flax [...] Release 1 tablet Orally Once a dayNot-Taking/PRN Stratford 3-6-9 Not-Taking/PRN Nattokinase 100 MG Capsule as [...] 2.?Type 1 diabetes mellitus with diabetic polyneuropathy?Procedure: 79248-IPRM SKIN LESIONS, OVER 4 3.?Ingrown nail?Procedure: 52943-Hixvmwwz Plate ?Procedure: 37059-Xdfewtii Plate Each Additional * Procedures:?Debride Nails 1-5:?Procedure:?Performance of this nail treatment by a nonprofessional would put this patients foot and overall health at risk. Therefore, debridement to affected nail(s) as described in exam was performed extensively to reduce/remove overall nail length, girth, thickness, subungual debris, and necrotic tissue, by manual and/or electrical means through the use of a nail nipper and/or dremel-type grinder watch parts, to a more viable healthy nail plate or bed tissue 1-5. Silver nitrate used for any petechial bleeding as necessary. Definitive antifungal treatment options have been reviewed and discussed with the patient. The patient chooses, no pharmaceutical tx - 86895.?Debride skin< 25 sq cm:?Open wound?NEUROPATHY: Physician of [...] of the wound post debridement is stable (91120).?Keratoma Treatment:?Parring or Cutting of Benign Hyperkeratotic Lesion(s)?76796 ( >4 Lesions) - The Benign hyperkeratotic [...] and future surgical procedures to prevent recurrence (14910/32) , DIABETES: Matricectomy deferred at this time due to diabetes risk.? * Procedure Codes:?16873 TRIM SKIN LESIONS, OVER 4, Modifiers: XS 29730 Avulsion Plate, Mod[place]: [place] 35829 Avulsion Plate Each Additional, Modifiers: T5 23636 DEBRIDE NAIL, 1-5, Modifiers: XS 09290 ACTIVE WOUND CARE/20 CM OR <, Modifiers: [...] for Alfredo logan/Lila/Zo on:?10/02/2024 01:35 PM EST History and Physical Notes * [...]
--- OUTSIDE RECORDS SUMMARY | 2024-10-02 13:36 | XMS_ITS ---
Author Organization [facility] Address [address] [place] [address] Care Team Providers Care Die Cutter Operator Name Role Phone MARC HERNANDEZ Primary Care Provider Ernesto Beck [phone] REASON FOR VISIT medication change. /procedure end of month/waiting on pt call back Encounters Encounter Location Date Provider Diagnosis [facility] [address] [place] [address] 09/12/2024 Ernesto Wu PLAN OF TREATMENT Next Appt Details Provider Name:Ernesto Wu , 10/09/2024 07:30:00 AM, [address] [place] [address] , [place], [place], [phone],
--- OUTSIDE RECORDS SUMMARY | 2024-10-02 13:36 | XMS_ITS ---
Author Organization [facility] Address [address] [place] [address] Care Team Providers Care Brush Head Maker Name Role Phone MARC HENRANDEZ Primary Care Provider Ernesto Beck [phone] REASON FOR VISIT screening, hx polyps,hx colon ca Encounters Encounter Location Date Provider Diagnosis [facility] [address] [place] [phone] 06/21/2024 Ernesto Wu PLAN OF TREATMENT Next Appt Details Provider Name:Ernesto Wu , 10/09/2024 07:30:00 AM, [address] [place] [address], [phone],
--- OUTSIDE RECORDS SUMMARY | 2024-10-02 13:36 | XMS_ITS | Patient Health Record ---
Author Organization [facility] Address [address] [place] [address] Care Team Providers Care Fertilizer Supervisor Name Role Phone Stuart Lozano Primary Care Provider Unav ailable Black, Marychuy Unavailable [phone] Allergies Allergen (clinical drug ingredient) Drug/Non Drug Allergy documented on EMR Reaction Allergy Type Onset Date Status 12 Hour Nasal [place] Unknown Drug Allergy Active Dust Mites Unknown [...] HCI 500 MG as directed Orally Active [place] 3-6-9 Not-Taki ng Aspirin 81 81 MG [...] 13 Not-Takin g Ascorbic Acid Not-Jacek hensley S52-Vnizfj Active Aspirin 81 MG 1 tablet Orally [...] Problem Acquired hammer toe of right foot (2787844186856159) Other hammer toe(s) (acquired), right foot (M20.41) Active confirmed Problem Acquired hammer toe of left foot (4225058656068256) Other hammer toe(s) (acquired), left foot (M20.42) Active confirmed Problem Non-pressure ulcer lower limb (421161012) Non-pressure chronic ulcer of other part of right foot limited to breakdown of skin (L97.511) Active confirmed Problem Polyneuropathy due to diabetes mellitus type I (010369987) 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 Problem Hammer toe (843296863) Hammer toe of left foot (M20.42) Active confirmed Problem 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 (984266798826229) Charcot foot due to diabetes mellitus (E11.610) Active confirmed Problem Unsteady gait (06954606) Unsteady gait (R26.81) Active confirmed Problem Ankle ulcer (515581678) Skin ulcer of right ankle, limited to breakdown of skin (L97.311) Active confirmed Problem Ulcer of toe of right foot (disorder) (19126441728179795) Skin ulcer of toe of right foot, limited to breakdown of skin (L97.511) Active confirmed Problem Acquired equinovarus deformity (03102702) 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) Active confirmed Problem 70620267016317930 Skin ulcer of toe of left foot, limited to breakdown of skin (L97.521) Active confirmed Vital Signs Height 5ft 11in in 08/17/2024 Weight 207 lbs 08/17/2024 BMI 28.87 kg/m2 08/17/2024 Procedures Procedure Date Ordered Date Performed Result Body Sit e 73109-EXYLGQY NAIL, 6 OR MORE 10/21/2023 N/A 87485-NUDS SKIN LESIONS, OVER 4 10/21/2023 N/A 05664-OIKXLXO NAIL, 1-5 01/20/2024 N/A 27277-Ahuzvewd Plate 01/20/2024 N/A 74405-SLUP SKIN LESIONS, OVER 4 01/20/2024 N/A 60273-DMOESRZ NAIL, 6 OR MORE 05/11/2024 N/A 26497-MARK SKIN LESIONS, OVER 4 05/11/2024 N/A 40464-LGSBPKV NAIL, 1-5 08/17/2024 N/A 66939-Zmamqbjn Plate 08/17/2024 N/A 77152-Lmlhvjde Plate Each Additional 08/17/2024 N/A 45548-LVDB SKIN LESIONS, OVER 4 08/17/2024 N/A Encounters Encounter Location Date Provider Diagnosis [address] [address] 10/21/2023 Marychuy Black Type 1 diabetes mellitus with diabetic polyneuropathy E10.42 ; Rupture of extensor tendon of foot S96.819A and Tinea unguium B35.[address] [address] 01/20/2024 Marychuy Black Type 1 diabetes mellitus with diabetic polyneuropathy E10.42 ; Tinea unguium B35.1 and Ingrown nail L60.[address] [address] 05/11/2024 Marychuy Black Type 1 diabetes mellitus with diabetic polyneuropathy E10.42 and Tinea unguium B35.[address] [address] 08/17/2024 Marychuy Black Type 1 diabetes mellitus with diabetic polyneuropathy E10.42 ; Tinea unguium B35.1 ; Ingrown nail L60.0 and Skin ulcer of toe of left foot, limited to breakdown of skin L97.[address] [address] 04/18/2024 Marychuy Black [address] [address] 08/22/2024 Marychuy Black Assessments Encounter Date Diagnosis [...] Test Name Order Date Hemoglobin A1c 12/02/2015 31189-TSXVYVM NAIL, 6 OR MORE 05/11/2024 51697-SFUVFNZ NAIL, 6 OR MORE 07/08/2023 97942-COHBCJT NAIL, 6 OR MORE 10/21/2023 73228-KNMOAMC NAIL, 6 OR MORE 12/02/2020 09001-GPZECMF NAIL, 6 OR MORE 03/13/2021 73016-PLSQROM NAIL, 6 OR MORE 06/09/2021 56797-FDDIPBP NAIL, 6 OR MORE 09/08/2021 58149-SXVSAZY NAIL, 6 OR MORE 01/30/2022 75152-AIBXQKY NAIL, 6 OR MORE 06/22/2022 15332-MVIBCIU NAIL, 6 OR MORE 09/28/2022 81720-FWEOTPV NAIL, 6 OR MORE 12/28/2022 48310-AGCOORR NAIL, 6 OR MORE 04/05/2023 39323-YEEONJU NAIL, 6 OR MORE 10/01/2011 69631-SAIEQWA NAIL, 6 OR MORE 12/03/2011 54741-VHPPDZJ NAIL, 6 OR MORE 03/03/2012 72118-UVEAZPP NAIL, 6 OR MORE 06/02/2012 47498-OBFKNSY NAIL, 6 OR MORE 11/03/2012 29622-XCCQPXN NAIL, 6 OR MORE 01/23/2013 14743-AOMUJHP NAIL, 6 OR MORE 04/03/2013 57578-TSAEFRU NAIL, 6 OR MORE 06/28/2013 98717-QTFKIQG NAIL, 6 OR MORE 09/13/2013 58073-WOWMRIM NAIL, 6 OR MORE 12/13/2013 88767-SZUMCPJ NAIL, 6 OR MORE 03/22/2014 18401-ALFMHFL NAIL, 6 OR MORE 06/21/2014 63853-ZFSTXDY NAIL, 6 OR MORE 09/20/2014 52620-XPUTTNI NAIL, 6 OR MORE 12/06/2014 37341-VZIUTOD NAIL, 6 OR MORE 02/21/2015 07799-CZLRUYQ NAIL, 6 OR MORE 05/13/2015 31294-QLVRRGA NAIL, 6 OR MORE 09/09/2015 78307-IRZCJKP NAIL, 6 OR MORE 12/02/2015 99482-MDQCRPT NAIL, 6 OR MORE 02/24/2016 77793-PJNHTFF NAIL, 6 OR MORE 06/01/2016 56299-YBCFSBJ NAIL, 6 OR MORE 08/27/2016 52087-MRMYBMF NAIL, 6 OR MORE 12/07/2016 13538-VGEBBNJ NAIL, 6 OR MORE 03/11/2017 01232-KPRCIBT NAIL, 6 OR MORE 06/24/2017 74644-GCWRGIN NAIL, 6 OR MORE 09/27/2017 85084-LYQGZKP NAIL, 6 OR MORE 12/27/2017 20407-LVKGDED NAIL, 6 OR MORE 06/02/2018 54639-ATICQJI NAIL, 6 OR MORE 08/25/2018 27278-VWDJSBV NAIL, 6 OR MORE 11/24/2018 70710-FXHXVEO NAIL, 6 OR MORE 03/09/2019 78064-YYXEJTI NAIL, 6 OR MORE 06/05/2019 90034-UYJAYFL NAIL, 6 OR MORE 09/18/2019 17086-UDZQJYY NAIL, 6 OR MORE 03/11/2020 62864-SFNJUND NAIL, 6 OR MORE 06/13/2020 42965-DCRATIA NAIL, 6 OR MORE 09/23/2020 23411-GZEJHKV NAIL, 1-5 01/20/2024 57150-MNPCTDI NAIL, 1-5 08/17/2024 86475-Uvjj Destruction, 1-14 09/08/2021 34261-Tkfd Destruction, -14 06/09/2021 90309-Apfy Destruction, -14 03/11/2020 89189-Xzcp Destruction, -14 06/05/2019 78526-Yknx Destruction, 10-2409/18/2019 83066-Pfvq Destruction, 10-2403/09/2019 86239-Wwnv Destruction, 10-2405/13/2015 65705-Xlcs Destruction, 10-2402/21/2015 62465-Jdhw Destruction, 10-2412/06/2014 35893-Bzvs Destruction, 10-2409/20/2014 63828-Tyqa Destruction, 10-2406/21/2014 69894-Wsmf Destruction, 10-2403/22/2014 83803-Zvyt Destruction, 10-2412/13/2013 43421-Zwpg Destruction, 10-2409/13/2013 62907-Yecz Destruction, 10-2406/28/2013 66784-Ntup Destruction, 10-2404/03/2013 94975-Cdga Destruction, 10-2401/23/2013 18315-Jtdg Destruction, 10-2411/03/2012 49853-Ydqj Destruction, 10-2406/02/2012 96059-Fyqc Destruction, 10-2410/01/2011 80655-Kzhc Destruction, 10-2403/03/2012 68200-Owak Destruction, 10-2412/03/2011 07661-Rikimeij Plate 03/03/2012 37811-Pincvhph Plate 12/03/2011 46192-Bzuafuez Plate 06/02/2012 83897-Tsoajzxx Plate 01/23/2013 23923-Htctcgem Plate 04/03/2013 86244-Ebvtuwxu Plate 06/28/2013 65758-Oldmuwnk Plate 09/13/2013 67610-Uiybwoty Plate 12/13/2013 23879-Qgpalwit Plate 03/22/2014 59630-Fznhlmlk Plate 06/21/2014 32430-Jojphybp Plate 09/20/2014 76718-Cxvrkxny Plate 12/06/2014 37251-Llqbgddc Plate 02/21/2015 00979-Gtwcbgzf Plate 05/13/2015 11102-Evnkrqki Plate 12/27/2017 14351-Vcexhqvq Plate 06/05/2019 23713-Afitpqoq Plate 11/24/2018 65652-Znoozlmy Plate 03/09/2019 98553-Erotvgzv Plate 08/25/2018 74244-Pwmqrwyg Plate 09/18/2019 29239-Odwvmkkq Plate 03/11/2020 85555-Haoitnqx Plate 09/27/2017 89096-Qjblprhe Plate 12/07/2016 97597-Cdcaassy Plate 08/27/2016 54611-Xmwxfzkz Plate 06/01/2016 90188-Fqpnnpay Plate 02/24/2016 29600-Wydnpknj Plate 12/02/2015 70179-Whsfwgvp Plate 11/03/2012 82014-Oggorclv Plate 09/09/2015 23296-Enebiebe Plate 06/09/2021 36641-Jumicvux Plate 06/13/2020 28355-Wjimuovh Plate 09/08/2021 94994-Szoggxug Plate 03/13/2021 78265-Isglogak Plate 09/23/2020 62919-Rapwdkfz Plate 01/30/2022 86612-Hgfnxcex Plate 06/22/2022 31010-Iwhgwrqo Plate 08/17/2024 06534-Uidvcmew Plate 01/20/2024 30302-Qpmpoweo Plate Each Additional 09/2022 12753-Uocbfenx Plate Each Additional 04/2024 19896-Gkttgjrp Plate Each Additional 93204-Aygiobga Plate Each Additional 29530-Rvmkdlrr Plate Each Additional 12/2020 44991-Ujamddae Plate Each Additional 98271-Mowbiiwm Plate Each Additional 84081-Otzpoklr Plate Each Additional 55140-Shnijbma Plate Each Additional 32622-Oxahcqzv Plate Each Additional 11699-Tbmryqul Plate Each Additional 83494-Gyyzktdh Plate Each Additional 05973-Nxofcoec Plate Each Additional 01449-Djsltbgu Plate Each Additional 94359-Ywyspmzp Plate Each Additional 06/2019 35569-Ddkefcse Plate Each Additional 10/2019 99953-Ogkgydfg Plate Each Additional 53951-Przhlscq Plate Each Additional 13174-Jukmrurq Plate Each Additional 92746-Rbkbgzsp Plate Each Additional 12/2014 84454-Vwgskbsf Plate Each Additional 97226-Qefwcifd Plate Each Additional 27202-Tsvgygwp Plate Each Additional 08/2014 57130-Dvxnxsjp Plate Each Additional 08/2014 67929-Trqnnkce Plate Each Additional 09/2014 17164-Dbfbgass Plate Each Additional 02/2014 61320-Vihyrohh Plate Each Additional 01/2013 40120-Zppuaehu Plate Each Additional 49255-Tghwehhy Plate Each Additional 18760-Fmjfjtrf Plate Each Additional 90387-Ahvnfxyc Plate Each Additional 26429-Mzrztayz Plate Each Additional 91399- Debride <25 sq cm 06/13/2020 42503- Debride <25 sq cm 04/05/2023 57277 I&D ABSCESS- SIMPLE,SINGLE 013 04497 I&D ABSCESS- SIMPLE,SINGLE 013 02068-UACU SKIN LESIONS, OVER 4 01/24/20 13 06697-PGZU SKIN LESIONS, OVER 4 11/03/19 13 14874-YPJB SKIN LESIONS, OVER 4 04/03/20 13 77012-VXND SKIN LESIONS, OVER 4 06/28/20 13 53547-HSPK SKIN LESIONS, OVER 4 09/13/20 13 00269-QCVA SKIN LESIONS, OVER 4 12/14/19 14 35345-QRKP SKIN LESIONS, OVER 4 03/22/20 14 16711-SJOQ SKIN LESIONS, OVER 4 06/21/20 14 35805-QAAY SKIN LESIONS, OVER 4 09/20/20 14 40531-VTCZ SKIN LESIONS, OVER 4 12/06/19 15 08537-IVXF SKIN LESIONS, OVER 4 02/22/20 15 20093-KKLQ SKIN LESIONS, OVER 4 05/13/20 15 24795-JQKV SKIN LESIONS, OVER 4 06/13/20 20 13225-EKJF SKIN LESIONS, OVER 4 09/23/20 20 14652-OUBU SKIN LESIONS, OVER 4 03/11/20 20 32935-RODA SKIN LESIONS, OVER 4 09/18/20 19 42364-HTMI SKIN LESIONS, OVER 4 03/09/20 19 33115-BQBF SKIN LESIONS, OVER 4 06/05/20 19 96302-HNXQ SKIN LESIONS, OVER 4 11/24/19 19 23139-TYIQ SKIN LESIONS, OVER 4 08/25/20 18 47560-RFUM SKIN LESIONS, OVER 4 12/28/19 18 44313-DJEZ SKIN LESIONS, OVER 4 06/02/20 18 68801-XFQD SKIN LESIONS, OVER 4 09/27/20 17 18370-TSVV SKIN LESIONS, OVER 4 06/24/20 17 96925-ETLF SKIN LESIONS, OVER 4 12/07/19 17 60382-EUFP SKIN LESIONS, OVER 4 03/11/20 17 65240-ZHEX SKIN LESIONS, OVER 4 08/27/20 16 45169-ASFI SKIN LESIONS, OVER 4 06/01/20 16 30179-QGVK SKIN LESIONS, OVER 4 02/24/20 16 03679-IAAA SKIN LESIONS, OVER 4 12/02/19 16 59067-ZGLL SKIN LESIONS, OVER 4 09/09/20 15 70580-LVJT SKIN LESIONS, OVER 4 04/05/20 23 97415-UHUZ SKIN LESIONS, OVER 4 07/08/20 23 70084-HDBW SKIN LESIONS, OVER 4 12/29/19 23 65248-PLYI SKIN LESIONS, OVER 4 09/28/20 22 82649-YEIM SKIN LESIONS, OVER 4 06/22/20 22 75265-DWFQ SKIN LESIONS, OVER 4 01/31/20 22 55683-UBKY SKIN LESIONS, OVER 4 09/08/20 21 02735-FLKM SKIN LESIONS, OVER 4 06/09/20 21 91478-RZDF SKIN LESIONS, OVER 4 12/02/19 21 07555-XAJF SKIN LESIONS, OVER 4 03/13/20 21 11172-SROB SKIN LESIONS, OVER 4 08/17/20 24 14455-LODL SKIN LESIONS, OVER 4 05/11/20 24 67211-IFVF SKIN LESIONS, OVER 4 01/20/20 24 24787-LKXN SKIN LESIONS, OVER 4 10/21/19 24 19628-FZZV SKIN LESIONS, 2 TO 4 06/02/20 12 83667-RXBW SKIN LESIONS, 2 TO 4 03/03/20 12 99061-JZYX SKIN LESIONS, 2 TO 4 12/03/19 12 54191-YIHB SKIN LESIONS, 2 TO 4 10/01/20 11 Next Appt Details Provider Name:Marychuy Kelley , 11/23/2024 02:00:00 PM, [address] [facility], [place], [address], Insurance Providers Payer Name Payer Address Payer Phone Subscriber Number Group Number Insured Name Patient Relationship to Insured Coverage Start Date Coverage End Date [facility] [address] [place] [address] [id number] Casey Ulrich Self - patient is the [...] kidney disease 04/2020 Hospitalization History Reason Date(Month/Year) [facility] [place] Possible Heart Attack/Stress Anxiet y/Covid 07/31 [facility] Scan [facility] [place]- chest pain 10/31 [facility] [place]- Pressure wound right ankle - saw levar bonilla [facility]- chest pain 10/2015
--- OUTSIDE RECORDS SUMMARY | 2024-10-02 13:36 | XMS_ITS ---
Author Organization [facility] Address [address] [place] [address] Care Team Providers Care Pad Extraction Tender Name Role Phone MARC HERNANDEZ Primary Care Provider Ernesto Beck Unavailable [phone] ALLERGIES No Known Allergies REASON FOR VISIT [...] Cephalexin 500 MG TAKE 1 CAPSULE BY [facility] TWICE A DAY FOR 10 DAYS [...] 03/08/2024 Encounters Encounter Location Date Provider Diagnosis [facility] [address] [place] [address] 03/08/2024 Ernesto Wu History of adenomato us [...] Name:Ernesto Wu , 10/09/2024 07:30:00 AM, [address] [place] [address] , [place], [place], [phone], Progress Notes * Examination Category Sub-Category Detail [...]
--- OUTSIDE RECORDS SUMMARY | 2024-10-02 13:36 | XMS_ITS | Patient Health Record ---
Author Organization [facility] Address [address] [place] [address] Care Team Providers Care Ceramic Tile Mechanic Name Role Phone MARC HERNANDEZ Primary Care Provider Ernesto Beck [phone] ALLERGIES No Known Allergies REASON FOR REFERRAL No Information MEDICATIONS Medication SIG (Take, Route, Frequency, Duration) Notes Start Date End Date Status Dicyclomine HCl 10 MG 1 or 2 capsules Or ally Every 6 hours as needed for abdominal discomfort/cramps for 30 day(s) 10/17/2023 Active Cephalexin 500 MG TAKE 1 CAPSULE BY [facility] TWICE A DAY FOR 10 DAYS [...] adenomatous polyp of colon (Z86.010) Active confirmed 555542859 Problem Encounter for screening for malignant neoplasm of colon (Z12.11) Active confirmed 125977283 Problem Preprocedural examination (Z01.818) Active confirmed [id number] Problem 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 658395352 Problem History of colon cancer (Z85.038) Active confirmed 928974041 Problem Constipation, unspecified constipation type (K59.00) Active confirmed 15263283 Problem Diverticulosis of colon (K57.30) Active confirmed Diverticulosi s of colon (910266172) Problem Hx of Billroth II operation (Z98.0) Active confirmed History of gastrointestinal tract bypass (716996335) VITAL SIGNS Temperature 97.7 degrees Fahrenheit 03/08/2024 Blood pressure diastolic 00 mm Hg 03/08/2024 Height 71.5 in 03/08/2024 Blood pressure systolic 000 mm Hg 03/08/2024 Weight 214 lbs 03/08/2024 BMI 29.43 kg/m2 03/08/2024 Encounters Encounter Location Date Provider Diagnosis [facility] [facility] [address] [place], [place] [phone] 06/21/2024 Ernesto Wu [facility] [address] [place] [phone] 03/08/2024 Ernesto Wu History of adenomato us polyp of colon Z86.010 ; Preprocedural examination Z01.818 ; Encounter for screening for malignant neoplasm of colon Z12.11 ; History of colon cancer Z85.038 and Constipation, unspecified constipation type K59.00 [facility] [address] [place] [phone] 10/15/2023 Ernesto Wu [facility] [address] [place] [phone] 09/12/2024 Ernesto Wu ASSESSMENTS Encounter Date Diagnosis [...] Name:Ernesto Meyer Bryce , 10/09/2024 07:30:00 AM, [address] [place] [address] , [place], [place], [phone], Insurance Providers Payer Name Payer Address Payer Phone Subscriber Number Group Number Insured Name Patient Relationship to Insured Coverage Start Date Coverage End Date [facility] [address] [place], [place] [id number] MELISSA ELDER Self - patient is the insured MEDICAL (GENERAL) HISTORY Medical History History ICD Code Denies CO,CVA,Lung disease,renal disease IDDM Pulmonary sarcoidosis--inactive Spherocytosis Colonoscopy [...] surgery for stones with Jazlyn Liriano at [facility]
--- NOTE | 2024-10-02 13:42 | A.OFFPC_ITS ---
Vital Signs 10/02/24 13:44 Height 5 ft 9 in Weight 220 lb BMI 32.5 BP 108/70 Blood Pressure Location Lt brachial Position Sitting Pulse 93 Pulse Source Pulse Oximeter Pulse Oximetry (%) 97 Intake Visit Reasons: 1 month follow up Allergies penicillamine Allergy (Unknown, Verified 10/02/24 13:45) unknown Tobacco use date assessed: 03/22/24 Fall risk assessment: 2 + Falls in past year Last assessed Fall Risk: 10/02/24 Dental Screening Dental Screen Date: 11/30/23 HPI 1 month follow up HPI Details Chief Complaint Follow-up for post-COVID symptoms and recent injuries. History of Present Illness The patient is a 79-year-old male presenting with a follow-up after his recurrence of COVID-19, diagnosed in mid-July. During the course of this second infection, he experienced dizziness and shortness of breath. He sustained injuries following a fall on the way to his bathroom, impacting his sternum against a dresser and injuring his left knee. Imaging ruled out any acute fracture, though he notes residual swelling of the knee, which is improving. The contusion on his sternum causes discomfort, particularly with upper torso movements. Initially, chest X-ray identified bilateral basilar atelectasis. The patient denies fever or chills and is in relatively good spirits. He reports persistent fatigue, consistent with potential long COVID, previously experienced after his initial COVID infection. Social History - Uses a walker for mobility. - Actively engaging in social activities as recommended. Health Maintenance - Advised continued use of a walker for mobility support. - Encouraged to use an incentive spirome ter to aid respiratory function. Review of Systems - Respiratory: Denies fever or chills. Physical Exam General: Cooperative, healthy appearing, comfortable, no acute distress and well developed Orientation: Patient oriented x3 Limitations: No limitations Head: Normal to inspection Ears: Hearing grossly normal bilaterally Nose: Normal external nose present Face and sinus: Normal facial exam Eyes: Appearance normal, both eyes and all related structures Neck: Normal visual inspection and Yes full ROM Respiratory: Normal respiratory effort and able to speak in complete sentences. Clear to auscultation bilaterally, including in the bases Cardiovascular: Regular rate and rhythm. Normal S1 and S2 GI: Normal to inspection. Soft to palpation and nontender Skin: No rashes or lesions noted Neuro: Patient oriented x3, uses a walker (rolling) for BLE weakness. Extremities: Normal to inspection, with some residual swelling in the left knee noted Results Plan - Encourage ambulation and social engage ment to combat fatigue. - Provide an incentive spirometer for re spiratory exercises, to be utilized consistently at home. - Schedule follow-up in three to four mo nths, as agreed upon, to reassess symptoms and recovery progress. Patient was informed and verbally consented to the use of an ambient scribe for clinic note documentation during this visit. Discussion Notes I informed the patient about the importance of continued mobility and respiratory exercises to mitigate fatigue and respiratory symptoms. We discussed the potential for prolonged symptoms due to long COVID and the utility of the incentive spirometer, which he demonstrated proficiency with during the visit. The patient agreed to the outlined follow-up schedule in three to four months to reassess his recovery and adjust management as necessary. Patient Instructions - Continue using your walker for mobilit y support. - Use an incentive spirometer daily to i mprove lung function. - Stay active and engage in social activ ities as tolerated. - Watch for any worsening of symptoms an d seek medical attention if necessary. 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 Vitamin D deficiency Cholecystectomy planned Osteoarthritis History of colon cancer CKD (chronic kidney disease) Sarcoidosis Partial nontraumatic amputation of right foot PVD (peripheral vascular disease) Diabetic retinopathy Spherocytosis Skin cancer Peripheral neuropathy Spinal stenosis Renal stones Pulmonary sarcoidosis Diabetes Surgical History History of amputation of foot History of ureter repair H/O splenectomy S/P ureteral reimplantation History of surgical removal of pilonidal cyst History of tonsillectomy and adenoidectomy H/O right hemicolectomy Status post laser lithotripsy of ureteral calculus Hx of cholecystectomy Hx of colonoscopy Family History Mother Thyroid cancer Other Mental health disorder Social History Household Members: Friend(s) Housing: House Are you a primary healthcare sales representative to a significant other at home: No Do you presently have visiting nurse or other home services: No Alcohol intake: never Patient Tobacco Use Status: Never used Tobacco e-Cigarette/Vaping Use: Never Used Second Hand Smoke Exposure: No service: No Current occupational status: employed and retired Cognitive needs: No Hearing needs: No Vision needs: No Questionnaire PHQ-9 Over the last 2 weeks, how often have you been bothered by any of the following problems? 20691 - PHQ-9 Billing: Patient declined-do not bill Source: Developed by Drs. Ernesto Moscoso, Jodi Alvarado, Sam Deluna and colleagues, with an educational devon from [employer]. Thrive Questionnaire Date Thrive assessed: 10/02/24 I am a: Patient What is your living situation today?: I choose not to answer this question Within the past 12 months, did the food you bought not last and you didn't have the money to get more?: I choose not to answer this question Within the past 12 months, did you worry whether your food would run out before you got money to buy more?: I choose not to answer this question Do you have trouble paying for medicines?: I choose not to answer this question Do you have trouble getting transportation to medical appointments?: I choose not to answer this question Do you have trouble paying your heating and electricity bill?: I choose not to answer this question Do you have trouble taking care of your child, family member or friend?: I choose not to answer this question Do you have trouble with day-to-day activities such as bathing, preparing meals, shopping, managing finances, etc.?: I choose not to answer this question Are you interested in more education?: I choose not to answer this question Please select the resources that you would like help with: Transportation Currently or been in a relationship where the following occur: No concerns reported THRIVE Score: 0 AUDIT C Alcohol Use Questionnaire (AUDIT-C) 1. How often do you have a drink containing alcohol?: Never Total Score: 0 Score Reviewed/Action Taken: Yes CANDIS-7 AMB Questionnaire CANDIS-7 Date CANDIS - 7 assessed: 03/22/24 Source: Developed by Drs. Ernesto Moscoso, Jodi Alvarado, Sam Deluna and colleagues, with an educational devon from [employer]. Physical exam (Primary Care) Vital Signs: Last Vital Signs Pulse 93 10/02/24 13:44 BP 108/70 10/02/24 13:44 Pulse Ox 97 10/02/24 13:44 BMI result Body Mass Index 32.5 Tobacco/Smoking Status: Tobacco use Status Tobacco use date assessed 03/22/24 10/02/24 13:43 Patient Tobacco Use Status Never used Tobacco 10/02/24 13:43 e-Cigarette/Vaping Use Never Used 10/02/24 13:43 Thrive Assessment: Date of Thrive Assessment Date Thrive assessed 10/02/24 10/02/24 13:49 Currently or been in a relationship where the following occur: No concerns reported Coding Level of Care Code Est Pt Level 3 (88978) Diagnoses Contusion of chest wall, unspecified laterality, subsequent encounter S20.219D Encounter type: subsequent encounter Laterality: unspecified laterality Post-COVID syndrome U09.9 Assessment & Plan Assessment & Plan (1) Chest wall contusion: Code(s): S20.219A - Contusion of unspecified front wall of thorax, initial encounter Category: Medical Qualifiers: Encounter type: subsequent encounter Laterality: unspecified laterality Qualified Code(s): S20.219D - Contusion of unspecified front wall of thorax, subsequent encounter (2) Post-COVID syndrome: Code(s): U09.9 - Post COVID-19 condition, unspecified Category: Medical Plan . Scribe Plan - Not visible on output: .
[2024-10-02 13:44] VITALS: BP 108/70; PULSE 93; O2SAT 97; BMI 32.5
== END 2024-10-02 16:31 | disposition home or self-care (01) ==
PROVIDERS: PCP Nurse Practitioner Family; Visit Provider Nurse Practitioner Family
DX: U09.9 Post COVID-19 condition, unspecified (principal); S20.219D Contusion of unspecified front wall of thorax, subsequent encounter

== ENCOUNTER 2024-12-18 14:02 | Outpatient (AMB) | payer BC, SELFPAY ==
--- NOTE | 2024-12-18 14:12 | AM.OFFWIN_ITS ---
Intake Vital Signs 12/18/24 14:16 Weight 207 lb BP 116/72 Blood Pressure Location Lt brachial Position Sitting Pulse 91 Pulse Source Pulse Oximeter Pulse Oximetry (%) 97 Oxygen Delivery Method Room Air Intake Visit Reasons: EP-body weakness, sob, headaches Intake Note: Patient here for weakness, SOB, no energy, headache and slight dizziness that has started last week. Patient Tobacco Use Status: Never used Tobacco Allergies penicillamine Allergy (Unknown, Verified 12/18/24 14:17) unknown Do you need a note to return to daycare/school/sports/work: No HPI HPI Comments History of Present Illness Details History - The patient is a 79-year-old male pres enting with shortness of breath, dizziness, and weakness. 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 - Recent exacerbation of symptoms includ ing lightheadedness and significant weakness after minimal activity. - He had a viral-like upper respiratory infection about two weeks prior. - Physical capabilities are limited; he frequently uses an electric cart for mobility. - Voice hoarseness has been present for several months, suspected to be due to allergies, but not managed with medication. Physical Exam General: Cooperative, healthy appearing, comfortable and no acute distress Orientation/consciousness: Patient oriented x3 Limitations: Balance problems, generally weak Head: Normal to inspection Ears: Hearing grossly normal bilaterally, external ears normal, TM's normal bilaterally, significant cerumen present Nose: Normal external nose present, Normal nares present and No nasal discharge present Face and sinus: Normal facial exam and Yes sinuses nontender Mouth: Normal oral and palatal mucosa present and moist mucous membranes Throat: Yes tonsils normal, Yes uvula midline. Posterior oropharynx erythema with cobblestoning Eyes: Appearance normal, both eyes and all related structures Neck: Normal visual inspection Respiratory: Clear but dim to auscultation bilaterally. Normal respiratory effort, able to speak in complete sentences, no respiratory distress, not tachypneic, no tripod positioning and no use of accessory muscles, substantial shortness of breath noted Cardiovascular: Regular rate and rhythm. 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 Vitamin D deficiency Cholecystectomy planned Osteoarthritis History of colon cancer CKD (chronic kidney disease) Sarcoidosis Partial nontraumatic amputation of right foot PVD (peripheral vascular disease) Diabetic retinopathy Spherocytosis Skin cancer Peripheral neuropathy Spinal stenosis Renal stones Pulmonary sarcoidosis Diabetes Surgical History History of amputation of foot History of ureter repair H/O splenectomy S/P ureteral reimplantation History of surgical removal of pilonidal cyst History of tonsillectomy and adenoidectomy H/O right hemicolectomy Status post laser lithotripsy of ureteral calculus Hx of cholecystectomy Hx of colonoscopy Family History Mother Thyroid cancer Other Mental health disorder Social History Household Members: Friend(s) Housing: House Are you a primary vision care associate to a significant other at home: No Do you presently have visiting nurse or other home services: No Alcohol intake: never Patient Tobacco Use Status: Never used Tobacco e-Cigarette/Vaping Use: Never Used Second Hand Smoke Exposure: No service: No Current occupational status: employed and retired Cognitive needs: No Hearing needs: No Vision needs: No Review of Systems Const All systems reviewed & are unremarkable except as noted in HPI and below Physical Exam Vital Signs: Last Vital Signs Pulse 91 12/18/24 14:16 BP 116/72 12/18/24 14:16 Pulse Ox 97 12/18/24 14:16 Oxygen Delivery Method Room Air 12/18/24 14:16 Office Procedures Cerumen Removal From which ear canal was the cerumen removed: bilateral Removal: otoscope w/curette Notes: patient tolerated procedure well, no complications and ear canal clear (left side only, right side has some residual cerumen) [id number] Wax Removal by Spoon/Curette Assessment & Plan Assessment & Plan (1) Acute viral syndrome: Code(s): B34.9 - Viral infection, unspecified Plan: VSS, pt well appearing and PE unremarkable. However, as pt is sob, will get CXR to assess lungs. A chest X-ray is advised to assess for respiratory conditions due to the shortness of breath in relation to a recent respiratory illness, and concurrent testing for influenza, COVID-19, and RSV is pending. If the pneumonia is confirmed on the chest x-ray, I will send Augmentin and a Z-Alber. 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 Partially addressed cerumen impaction, with the potential need for specialist audiological clearance. Await the outcome of diagnostic imaging and testing for further guidance in treatment adjustments. Patient was informed and verbally consented to the use of an ambient scribe for clinic note documentation during this visit Orders: Orders SARS-CoV2/FLU/RSV Today R09.89 - Other specified symptoms and signs involving the circulatory and respiratory systems XR chest 2V Today R05.9 - Cough, unspecified Coding Level of Care Code Est Pt Level 4 (36163) Diagnoses Acute viral syndrome B34.9 CPT Codes Office Procedure - CPT: 58127-Fon Wax Removal by Spoon/Curette ([id number])
[2024-12-18 14:16] VITALS: BP 116/72; PULSE 91; O2SAT 97
--- OUTSIDE RECORDS SUMMARY | 2024-12-18 15:56 | XMS_ITS ---
Author Organization [facility] [place] Address [address] [place] [address] Care Team Providers Care Jar Filler Name Role Phone Stuart Lozano Primary Care Provider Unav ailable Black, Marychuy Unavailable [phone] Allergies Allergen (clinical drug ingredient) Drug/Non Drug Allergy documented on EMR Reaction Allergy Type Onset Date Status 12 Hour Nasal [place] Unknown Drug Allergy Active Dust Mites Unknown Allergy Active REASON FOR VISIT At Risk Footcare, Skin problem(s) Medications Medication SIG (Take, Route, Frequency, Duration) Notes Start Date End Date Status Metaform Not-Taking Keflex Not-Taking Atenolol Not-Taking Vitamin E Not-Taking HumaLOG Not-Taking Ascorbic Acid Not-Ta Aspirin 81 MG 1 tablet Orally Once a day for 30 day(s) Not-Taking Vitamin C & E Complex Not-Taking Prevnar 13 Not-Takin g Venlafaxine HCl Not- Taking Nattokinase 100 MG as directed Orally Not-Taking Extra Depth Orthopedic Shoes (1 Pair) with Customized Heat Molded Multidensity Innersoles (3 Pair) as directed Dx: IDDM/Polyneuropathy (E10.42), Hammertoe Foot Deformity (M20.41,M20.42), Preulcerative Skin Lesion(s) (L85.1) 06/02/2018 Not-Taking Multivitamins Not-Ta Ammonium Lactate 12 % 1 application Exte rnally to affected areas of dry skin to feet except for between the toes Twice a day for 30 days Active [employer] 3-6-9 Not-Jd ng Timolol Maleate PF N ot-Taking Lovastatin Not-Takin g Magnesium Not-Taking Flax Seeds - as directed Orally Not-Taking Aspirin 81 81 MG 1 tablet Orally Once a day Not-Taking HumuLIN N Active Zinc Active Vitamin C 500 MG as directed Orally O nce a day Active Turmeric Active AFO-Hinged as directed Wear Juli ly for as needed 09/08/2021 Active Resveratrol Active Flax Seed Oil Active Vitamin B Complex - as directed Orally Active Berberine HCI 500 MG as directed Orally Active Vitamin D Active G12-Gbmqdg Active Vitamin D3 Active Social History Tobacco Use: Social History Observation Description Date Details (start date - stop date) Never Smoker NA - NA Tobacco Use/Smoking Question Answer Notes Are you a: nonsmoker Additional Findings: Tobacco Non-User Current no n-smoker Tobacco use other than smoking: Question Answer Notes Are you an other tobacco user? No Vital Signs Height 5ft 11in in 11/23/2024 Weight 215 lbs 11/23/2024 BMI 29.98 kg/m2 11/23/2024 Blood pressure systolic 110 mm Hg 11/23/19 25 Blood pressure diastolic 65 mm Hg 025 Procedures Procedure Date Ordered Date Performed Result Body Sit e 71348-FVEYHQT NAIL, 6 OR MORE 11/23/2024 N/A 76250-MGAE SKIN LESIONS, OVER 4 11/23/2024 N/A Encounters Encounter Location Date Provider Diagnosis [facility] [address] [place] [address] 11/23/2024 Marychuy Black Type 1 diabetes mellitus with diabetic polyneuropathy E10.42 ; Xerosis of skin L85.3 and Tinea unguium B35.1 Assessments Encounter Date Diagnosis (ICD Code) Assessment Notes Treatment Notes Treatment Clinical Notes Section Notes 11/23/2024 Type 1 diabetes mellitus with diabetic polyneuropathy (ICD-10 - E10.42) 11/23/2024 Xerosis of skin (ICD-10 - L85.3) 11/23/2024 Tinea unguium (ICD-10 - B35.1) Plan Of Treatment Medication Medication Name Sig Start Date Stop Date Notes Ammonium Lactate 12 % 1 application Exte rnally to affected areas of dry skin to feet except for between the toes Twice a day for 30 days Pending Test Test Name Order Date [id number] NAIL, 6 OR MORE 11/23/2024 38844-MBPX SKIN LESIONS, OVER 4 11/23/19 25 Next Appt Details Follow Up: prn, Reason: Provider Name:Marychuy Kelley , 03/15/2025 02:30:00 PM, [address] [place] [address], [id number], Procedure Notes * Category Sub-Category Detail Notes Debride Nail 6-10 Nail debridement Due to the cl inical pathology outlined in the exam findings, performance of this nail treatment is medically necessary as its management by an unskilled/untrained nonprofessional would put this patients foot and overall health at risk. Therefore, debridement to affected nail(s), as described in exam ( T1, T2, T3, T4, T6,, TA, T5 ), was performed exclusively by the physician of record to reduce/remove overall nail length, girth, thickness, subungual debris, and necrotic tissue, by manual and/or electrical means through the use of a nail nipper and/or dremel-type knife setter grinder machine, to a more viable healthy nail plate or bed tissue 6-10 nails in total. Silver nitrate was used for any petechial bleeding as necessary. Definitive antifungal treatment options, both pharmaceutical and surgical, have been reviewed and discussed with the patient. The patient solely prefers the use of intermittent/as needed professional debridement services for their nail condition and understands the need for additional periodic treatments to maintain effectiveness in symptomatic relief - 59962 Keratoma Treatment Parring or Cutting o f Benign Hyperkeratotic Lesion(s) (-57) More than 4 Lesions - Due to the at risk nature of the patients medical condition as documented in the exam findings, performance of this keratoderma treatment is medically necessary as its management by an unskilled/untrained nonprofessional would put this patients foot and overall health at risk. Therefore, the benign hyperkeratotic lesions, ( 5 ) in total, locations as stated and described in the exam ( , SUB MTH (s), 1, B/L, Medial plantar, Midfoot,b/l Heel(s), b/l ,), were pared, and/or cut utilizing a sterile 15 blade, tissue nippers, and/or power dremel instrumentation by the physician of record - 86823 Progress Notes * Casey HUNT KDOB:[birth year] (79 yo M)Acc No.[id number]:11/23/2024 Progress Note Patient:?Casey HUNT Provider:?Marychuy Kelley DPM :1945???Age:79 Y???Sex:Male David e:11/23/2024 Address:[address] [place] [address] [id number] Pcp:IVORY Mattson Subjective: * Chief Complaints: * ???At Risk FootcareSkin prob stevo(s) * HPI: ???At Risk footcare:?Pt States Last PCP Visit:?Date?10/02/2024 ???Skin problems:?Nature:?dryness , scaling.?Location:??B/L .?Duration:?several days.?Course:?worse.? * ROS:?General/Constitutional:?Nausea?denies,?denies.?Vomiting?denies,?denies.?Hunger Thirst?denies,?denies.?Loss a ppetite?denies,?denies.?Chills?denies,?denies.?Fatigue?denies,?denies.?Fever?den ies, denies.?Night Sweats?denies,?denies.?Unexplained weight loss?denies,?denies.?Ophthalmologic:?Blurred vision?denies,?denies.?Red eye?denies,?denies.?HEENTM:?Dentures?denies,?denies.?Dizziness?denies,?denies.?Glasses/contacts?admits, ?admits.?Retinopathy?denies,?denies.?Blurred/double v ision?denies,?denies.?TMJ?denies,?denies.?Discharge/drainage?denies,?denies.?Imp lants?denies,?denies.?Hard of hearing ?denies,?denies.?Difficulty chewing/swallowing/speaking?denies,?denies.?Nose bleeds?denies,?denies.?Sore mouth?denies,?denies.?Swollen glands?denies,?denies.?Respiratory:?On O xygen?denies,?denies.?Pneumonia/pleurisy?denies,?denies.?Bronchitis?denies,?sangeeta es.?Emphysema?denies,?denies.?Coughing?denies,?denies.?Cough blood?denies,?denies.?Shortness of breath?denies,?denies.?Wheezing?denies,?denies.?Cardiovascular:?Pacemaker?denies,?denies.?MVP?denies,?denies.?WPW?denies,?denies.?CHF?denie s,?denies.?Heart attack?denies,?denies.?Septal defect?denies,?denies.?Rapid beat?denies,?denies.?Chest pain ?denies,?denies.?Atrial Fib.?denies,?denies.?Murmur/Palpitations?denies,?denies.?Gastrointestinal:?Hemorrhoids?denies,?denies.?Stomach/Abdominal pain?denies,?denies.?Dark blood stool?denies,?denies.?Irritable bowel ? denies,?denies.?Constipation?denies,?denies.?Diarrhea?denies,?denies.?Vomiting?d enies,?denies.?Hematology:?Swelling?admits,?admits.?Bruising?denies,?denies.?Bleeding problem?denies,?denies.?Genitourinary:?Blood urine?denies,?denies.?Frequent/Painfu/urination/bladder control?denies,?denies.?Kidney stones?denies,?denies.?Infection (UTI)?denies,?denies.?Nephropathy?denies,?denies.?Musculoskeletal:?Hammertoes?denies,?denies.?Bunions?denies,?denies.?Scoliosis/kyphosis?denie s,?denies.?Muscle cramps / walking?denies,?denies.?Generalized aches and pains?denies,?denies.?Weakness?denies,?denies.?Integ.:?Prince?denies,?denies.?Scars?denies,?denies.?Corns/calluses?denies,?denies.? Ingrown nails?admits,?admits.?Painful nails?admits.?Rashes?denies,?denies.?Neurologic:?Difficulty sleeping?denies,?denies.?Bipolar?denies,?denies.?Brain disorder?denies,?denies.?Balance t rouble?denies,?denies.?Confusion?denies.?Fainting/blackouts?denies,?denies.?Head ache?denies.?Tremors?denies.? * Medical History:? * Surgical History:?amputation of foot total(partial) 2003cholecystectomy 1976splenectomy 1976tonsillectomy 1951colonoscopy 07/31/19sierra stones- 4 removed- left kidney- renal scan - kidney disease 04/2020 * Hospitalization[facility] Diagn[facility]ic [facility] right [facility] - saw minerva bonilla [facility]- chest pain 10/31[facility]- [facility] Scan [facility]- Bladder Scan [facility]- Possible Heart Attack/Stress Anxiety/Covid 07/31 * Family History:?Mother: dece ased, diagnosed with Unspecified essential hypertension, Family history of arthritis.?Father: , diagnosed with Other malignant neoplasm of unspecified site.?Paternal Grand Mother: cancer.?Siblings: , brother.? * Social History:?Tobacco Use:?Tobacco Use/Smoking?Are you a:?nonsmoker ?Additional Findings: Tobacco Non-User?Current non-smoker ?Tobacco use other than smoking?Are you an other tobacco user??No ???Miscellaneous:?Caffeine: yes, frequency:, 2-3 cups per day. ?Children: no. ?Exercise: no. ?Marital status: single. 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 * Medications:?[id number] e Vitamin D3 Resveratrol Flax Seed Oil Vitamin B Complex - Tablet as directed Orally Berberine HCI 500 MG Capsule as directed Orally Vitamin D HumuLIN N Zinc Vitamin C 500 MG Capsule as directed Orally Once a day Turmeric AFO-Hinged as directed Wear Daily Taking F61-[place] Taking Vitamin D3 Taking Resveratrol Taking Flax Seed Oil Taking Vitamin B Complex - Tablet as directed Orally Taking Berberine HCI 500 MG Capsule as directed Orally Taking Vitamin D Taking HumuLIN N Taking Zinc Taking Vitamin C 500 MG Capsule as directed Orally Once a day Taking Turmeric Taking AFO-Hinged as directed Wear Daily Not-Taking/PRNTimolol Maleate PF Lovastatin Magnesium Flax Seeds - Powder as directed Orally Aspirin 81 81 MG Tablet Delayed Release 1 tablet Orally Once a day [employer] 3-6-9 Nattokinase 100 MG Capsule as directed Orally Extra Depth Orthopedic Shoes (1 Pair) with Customized Heat Molded Multidensity Innersoles (3 Pair) as directed Dx: IDDM/Polyneuropathy (E10.42), Hammertoe Foot Deformity (M20.41,M20.42), Preulcerative Skin Lesion(s) (L85.1) Multivitamins Ascorbic Acid Aspirin 81 MG Tablet Chewable 1 tablet Orally Once a day Vitamin C & E Complex Prevnar 13 Venlafaxine HCl Atenolol Vitamin E HumaLOG Metaform Keflex Medication List reviewed and reconciled with the patientNot-Taking/PRN Timolol Maleate PF Not-Taking/PRN Lovastatin Not-Taking/PRN Magnesium Not-Taking/PRN Flax Seeds - Powder as directed Orally Not-Taking/PRN Aspirin 81 81 MG Tablet Delayed Release 1 tablet Orally Once a day Not-Taking/PRN [employer] 3-6-9 Not-Taking/PRN Nattokinase 100 MG Capsule as directed Orally Not-Taking/PRN Extra Depth Orthopedic Shoes (1 Pair) with Customized Heat Molded Multidensity Innersoles (3 Pair) as directed Dx: IDDM/Polyneuropathy (E10.42), Hammertoe Foot Deformity (M20.41,M20.42), Preulcerative Skin Lesion(s) (L85.1) Not-Taking/PRN Multivitamins Not-Taking/PRN Ascorbic Acid Not-Taking/PRN Aspirin 81 MG Tablet Chewable 1 tablet Orally Once a day Not-Taking/PRN Vitamin C & E Complex Not-Taking/PRN Prevnar 13 Not-Taking/PRN Venlafaxine HCl Not-Taking/PRN Atenolol Not-Taking/PRN Vitamin E Not-Taking/PRN HumaLOG Not-Taking/PRN Metaform Not-Taking/PRN Keflex Medication List reviewed and reconciled with the patient * Allergies:?12 Hour Nasal Spr ayDust Mitesyes[Allergies Verified] Objective: * Vitals:?Ht: 5ft 11in, Wt: 21 5, BMI: 29.98, Shoe size: 12, BP: 110/65 mm Hg, BS: 84, Ht-cm: 180.34 cm, Wt-k.52 kg. * ???Past Orders: ???Lab:HEMOGLOBIN A1C (GLYCO HEMOGLOBIN) (Order Date - 09/10/2024) (Collection Date & Time - 09/10/2024 02:15 PM) ? Value Reference Range ?HEMOGLOBIN A1C % (HH) 5.2 * Examination: ???Ophthalmology Referral: ?DIABETES EYE EXAM?Procedure Performed:?Yes ?Date of Exam Performed?10/11/2024 ?Findings of Diabetic Eye Exam:?no retinopathy?General Examination: ?GENERAL APPEARANCE:?Reveals a pleasant, alert, well nourished, well- developed, well hydrated individual, who demonstrates proper attention to hygiene/body habitus, and is in no acute distress, Pt serves as own historian for office visit today.?ORIENTED:?person, place, and time.?Neurological: ?SENSORY:?exam demonstrates. reduced vibration lower extremity, 5.07 monofilament test performed at plantar aspects of 5 varied sites per foot, shows sensation absent, B/L, Pt relates, cont. anesthesia.?Vascular: ?DP PULSES (B):?10/14, B/L.?PT PULSES (B):?10/14, B/L.?Nails: ?NAILS are:?Elongated, overgrown, dystrophic, lytic, greater than 3mm thick, discolored and friable with crumbly malodorous subungual debris, with dull to no pain on palpation due to neuropathy, T1, T2, T3, T4, T6,, TA, T5.?Dermatologic: ?SKIN FINDINGS:?Skin exam reveals Keratotic lesion(s) located at, SUB MTH (s), 1, B/L, Medial plantar, Midfoot,b/l?Heel(s), b/l , Skin shows sign(s) of, dryness, scaling, in a stocking fashion, no fissure(s) present, B/L.?Orthopedic: ?DIGITAL DEFORMITIES:?Amputation 4,5 rays right.? Assessment: * Assessment: 1.?Type 1 diabetes mellitus with diabetic polyneuropathy - E10.42 (Primary)???2.?Xerosis of skin - L85.3???Specify :Acute problem, Uncomplicated (3),Rx Management (4)???3.?Tinea unguium - B35.1??? Plan: * Treatment: 2.?Xerosis of skin? Start Ammonium Lactate Cream, 12 %, 1 application, Externally to affected areas of dry skin to feet except for between the toes, Twice a day, 30 days, 280, Refills 3.?? 3.?Tinea unguium?Procedure: [id number]-[id number] NAIL, 6 OR MORE * Procedures:?Debride Nail 6-10:?Nail debridement?Due to the clinical pathology outlined in the exam findings, performance of this nail treatment is medically necessary as its management by an unskilled/untrained nonprofessional would put this patients foot and overall health at risk. Therefore, debridement to affected nail(s), as described in exam ( T1, T2, T3, T4, T6,, TA, T5 ), was performed exclusively by the physician of record to reduce/remove overall nail length, girth, thickness, subungual debris, and necrotic tissue, by manual and/or electrical means through the use of a nail nipper and/or dremel-type knife setter grinder machine, to a more viable healthy nail plate or bed tissue 6-10 nails in total. Silver nitrate was used for any petechial bleeding as necessary. Definitive antifungal treatment options, both pharmaceutical and surgical, have been reviewed and discussed with the patient. The patient solely prefers the use of intermittent/as needed professional debridement services for their nail condition and understands the need for additional periodic treatments to maintain effectiveness in symptomatic relief - 64230.?Keratoma Treatment:?Parring or Cutting of Benign Hyperkeratotic Lesion(s)?(-57) More than 4 Lesions - Due to the at risk nature of the patients medical condition as documented in the exam findings, performance of this keratoderma treatment is medically necessary as its management by an unskilled/untrained nonprofessional would put this patients foot and overall health at risk. Therefore, the benign hyperkeratotic lesions, ( 5 ) in total, locations as stated and described in the exam ( , SUB MTH (s), 1, B/L, Medial plantar, Midfoot,b/l Heel(s), b/l ,), were pared, and/or cut utilizing a sterile 15 blade, tissue nippers, and/or power dremel instrumentation by the physician of record - 55407.? * Procedure Codes:?85501 TRIM SKIN LESIONS, OVER 4, Modifiers: XS 37394 DEBRIDE NAIL, 6 OR MORE, Modifiers: XS * Preventive Medicine:? ??Counseling:?Discussion:?-12: Office or other outpatient visit for the evaluation and management of an established patient, which required a medically appropriate history and/or examination and STRAIGHTFORWARD level of MEDICAL DECISION MAKING, 1 SELF-LIMITED OR MINOR PROBLEM, MINIMAL- NO AMOUNT/COMPLEXITY OF DATA TO BE REVIEWED/ANALYZED, AND MINIMAL RISK OF COMPLICATION/MORBIDITY. The visit on the day of the encounter encompassed interpreting the data and educating the patient as to the nature of their condition, treatment options available according to their individual PMH, meds, allergies, and overall health/living conditions, as well as any potential risks or complications that may occur from a failure to adhere to, and participate in, the recommended course of therapy. The discussion included a complete verbal, and/or written explanation of the examination results, any x-rays taken, the proposed diagnosis, and outline of the treatment plan. A schedule for future care needs was also explained. The patient verbalized an understanding of the instructions at this time and agreed to be an active participant in their treatment. If the patient should think of any questions or concerns after the visit, I have encouraged the patient to call the office.?Xerosis:?The patient was counseled on the diagnosis, potential etiologies, and treatment options for their skin condition. We discussed the risks and benefits of each option from performing no treatment, to utilizing OTC topical skin creams/ointments, to utilizing prescription topical creams/ointments, to utilizing customized compounded topical medications and use of nocturnal occlusion with any/all previously detailed therapies. We discussed the advantages and disadvantages of each possible treatment and importance for adherence to all the recommended therapies for optimum success and avoid potential complications such as open sore/infection/possible hospitalization. We discussed the potential effectiveness of each topical preparation as well as each ones possible side effects and/or patient medication interactions. Patient questions re: use, dosage, successful outcomes, and application consistency were reviewed and the patient verbalized that all answers were clearly understood. The patient has decided to apply Rx skin creams to their feet save the interspaces while paying special attention to the heels. Such was sent to their pharmacy at the time of visit.? * Follow Up:?prn * Images: * Sign off status: Completed true * Provider:?Marychuy Kelley DPM Date:?2024 Generated for Alfredo logan/Lila/eTransmitting on:?12/18/2024 03:56 PM EDT History and Physical Notes * HPI (History of Present Illness) Category Sub-Category Detail Notes Category Not es Skin problems Nature: dryness , scaling Location: B/L Duration: several days Onset/Cause: Course: worse At Risk footcare Pt States Last PCP Visit: Date: 4 Examination Category Sub-Category Detail Notes Category Not es Ingrown Nail INSPECTION: Neurological SENSORY: exam demonstrate s. reduced vibration lower extremity, 5.07 monofilament test performed at plantar aspects of 5 varied sites per foot, shows sensation absent, B/L, Pt relates, cont. anesthesia Dermatologic SKIN FINDINGS: Skin exam reveal s Keratotic lesion(s) located at, SUB MTH (s), 1, B/L, Medial plantar, Midfoot,b/l Heel(s), b/l , Skin shows sign(s) of, dryness, scaling, in a stocking fashion, no fissure(s) present, B/L ULCER: Orthopedic DIGITAL DEFORMITIES: Amputation 4,5 rays right General Examination GENERAL APPEARANCE: Reveals a pleasant, alert, well nourished, well-developed, well hydrated individual, who demonstrates proper attention to hygiene/body habitus, and is in no acute distress, Pt serves as own historian for office visit today ORIENTED: person, place, and t vishal Ophthalmology Referral DIABETES EYE EXAM Procedure Perform ed:: Yes ?Date of Exam Performed: 10/11/2024 Findings of Diabetic Eye Exam:: no retin opathy Vascular DP PULSES (B): 1/4, B/L PT PULSES (B): 1/4, B/L TROPHIC CONDITION-TEXTURE/ELASTICITY/TUR GOR/HAIR GROWTH (B): EDEMA (C): PIGMENTATION: Nails NAILS are: Elongated, overg rown, dystrophic, lytic, greater than 3mm thick, discolored and friable with crumbly malodorous subungual debris, with dull to no pain on palpation due to neuropathy, T1, T2, T3, T4, T6,, TA, T5
--- OUTSIDE RECORDS SUMMARY | 2024-12-18 15:56 | XMS_ITS ---
Author Organization [facility] Address [address] [place] [address] Care Team Providers Care Printer Slotter Operator Name Role Phone Stuart Lozano Primary Care Provider Unav ailable Black, Marychuy Unavailable [phone] REASON FOR VISIT rx for AFO Encounters Encounter Location Date Provider Diagnosis [address] [address] 08/22/2024 Marychuy Black Plan Of Treatment Next Appt Details Provider Name:Marychuy Archer Warren , 03/15/2025 02:30:00 PM, [address] [place], [address], Progress Notes * Casey SEWELL KDOB:[birth year] (79 yo M)Acc No.[id number]:08/22/2024 Patient:?Casey SEWELL :1945???Age:79 Y???Sex:Male Address:[address] [place] [address] [place], [address] * true * Date:? Generated for Printi ng/Faxing/eTransmitting on:?12/18/2024 03:56 PM EDT
--- OUTSIDE RECORDS SUMMARY | 2024-12-18 15:56 | XMS_ITS | Clinical Summary ---
Author Organization [facility] ity Address [address] [place] [address] Care Team Providers Care Model Engine Mechanic Name Role Phone Unavailable Primary Care Provider Unavailabl e Social History Tobacco Use Types Packs/Day Years Used Date Smoking Tobacco: Never Assessed Sex and Gender Information Value Date Recorded Sex Assigned at Not on file Legal Sex Male 7:48 PM EST Gender Identity Not on file Sexual Orientation Not on file Plan of Treatment Health Maintenance Due Date Last Done Comments DTaP,Tdap,and Td Vaccines (1 - Tdap) 1965 Pneumococcal Vaccine: 50+ Ye ars (1 of 1 - PCV) 1996 Zoster Vaccines (1 of 2) 1996 RSV Immunization Patients 60 + Years Old (1 - 1-dose 75+ series) 2021 Cholesterol Screening (Lipid Panel) 09/12/2022 Depression Screening 09/12/2022 Falls Risk Assessment 09/12/2022 Hepatitis C Screening 09/12/2022 Social Influencers of Health Screening 09/12/2022 COVID-19 Vaccine ( - 2023-2 5 season) 2024 Influenza Vaccine (#1) 2024 HIB Vaccines Aged Out No longer eligi ble based on patient's age to complete this topic HPV Vaccines Aged Out No longer eligi ble based on patient's age to complete this topic Hepatitis A Vaccines Aged Out No long er eligible based on patient's age to complete this topic Hepatitis B Vaccines Aged Out No long er eligible based on patient's age to complete this topic IPV Vaccines Aged Out No longer eligi ble based on patient's age to complete this topic MMR Vaccines Aged Out No longer eligi ble based on patient's age to complete this topic Meningococcal ACWY Vaccine Aged Out N o longer eligible based on patient's age to complete this topic Meningococcal B Vacine Aged Out No lo nger eligible based on patient's age to complete this topic RSV Immunization Patients Un angela 20 months Aged Out No longer eligible b ased on patient's age to complete this topic Varicella Vaccines Aged Out No longer eligible based on patient's age to complete this topic
--- OUTSIDE RECORDS SUMMARY | 2024-12-18 15:56 | XMS_ITS | Patient Health Record ---
Author Organization [facility] Address [address] [place] [address] Care Team Providers Care Test Equipment Mechanic Name Role Phone MARC HERNANDEZ Primary Care Provider Ernesto Beck [phone] Allergies No Known Allergies Reason For Referral No Information Medications Medication SIG (Take, Route, Frequency, Duration) Notes Start Date End Date Status Dicyclomine HCl 10 MG 1 or 2 capsules Or ally Every 6 hours as needed for abdominal discomfort/cramps for 30 day(s) 10/17/2023 Active Cephalexin 500 MG TAKE 1 CAPSULE BY [facility] TWICE A DAY FOR 10 DAYS Oral [...] ected Subcutaneous BID Active Ibuprofen PRN Not-Taking Immunizations Vaccine Route Administration Date Status Comme nts Influenza Unknown 02/23/2019 Administered Influenza Unknown 01/29/2022 Refused Influenza Unknown 03/08/2024 Refused Social History Tobacco Use: Social History Observation Description Date Details (start date - stop date) Never Smoker NA - NA Tobacco Use/Smoking Question Answer Notes Patient is a nonsmoker Alcohol Screen Question Answer Notes Did you have a drink containing alcohol in the p ast year? 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 Problem 057930485437664 Preprocedural examination (Z01.818) Active confirmed Problem 346022130 History of colon cancer (Z85.038) Active confirmed Problem 32117043 Constipation, unspecified constipation type (K59.00) Active confirmed Problem Diverticulosis of colon (312676392) Diverticulosis of colon (K57.30) Active confirmed Problem 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) Active confirmed Vital Signs Temperature 97.7 degrees Fahrenheit 03/08/2024 Blood pressure diastolic 00 mm Hg 03/08/2024 Height 71.5 in 03/08/2024 Blood pressure systolic 000 mm Hg 03/08/2024 Weight 214 lbs 03/08/2024 BMI 29.43 kg/m2 03/08/2024 Encounters Encounter Location Date Provider Diagnosis [facility] [address] [place] [phone] 03/08/2024 Ernesto Wu History of adenomato us polyp of colon Z86.010 ; Preprocedural examination Z01.818 ; Encounter for screening for malignant neoplasm of colon Z12.11 ; History of colon cancer Z85.038 and Constipation, unspecified constipation type K59.00 [facility] [address] [place] [phone] 09/12/2024 Ernesto Wu [facility] [address] [place] [phone] 10/03/2024 Ernesto Wu Assessments Encounter Date Diagnosis (ICD Code) Assessment Notes Treatment Notes Treatment Clinical Notes Section Notes 03/08/2024 History of adenomatous polyp of colon (ICD-10 - Z86.010) Overall, Jordin appears very well. Given his personal history of colon cancer and tubular adenomas of the colon, as well as his last colonoscopy being 2 years ago, I did recommend a followup colonoscopy for further screening purposes. We did review the rationale for that in regard to colon cancer prevention. Full consent is obtained for this, including risks of bleeding and perforation. He was given the below instructions regarding adjustment of his insulin for the procedure. He will have a 2 day bowel prep as he did last time to be sure we have an adequate clean out. The procedure will be done with monitored anesthesia care. Jordin was comfortable with this plan. Thank you again for allowing me to participate in Jordin's care. I shall continue to keep you advised of his progress. 03/08/2024 Preprocedural examination (ICD-10 - Z01.818) Overall, Jordin appears very well. Given his personal history of colon cancer and tubular adenomas of the colon, as well as his last colonoscopy being 2 years ago, I did recommend a followup colonoscopy for further screening purposes. We did review the rationale for that in regard to colon cancer prevention. Full consent is obtained for this, including risks of bleeding and perforation. He was given the below instructions regarding adjustment of his insulin for the procedure. He will have a 2 day bowel prep as he did last time to be sure we have an adequate clean out. The procedure will be done with monitored anesthesia care. Jordin was comfortable with this plan. Thank you again for allowing me to participate in Jordin's care. I shall continue to keep you advised of his progress. 03/08/2024 Encounter for screening for malignant neoplasm of colon (ICD-10 - Z12.11) Have your Insulin adjusted by your PCP for the two days while you're prepping before the colonoscopy Overall, Jordin appears very well. Given his personal history of colon cancer and tubular adenomas of the colon, as well as his last colonoscopy being 2 years ago, I did recommend a followup colonoscopy for further screening purposes. We did review the rationale for that in regard to colon cancer prevention. Full consent is obtained for this, including risks of bleeding and perforation. He was given the below instructions regarding adjustment of his insulin for the procedure. He will have a 2 day bowel prep as he did last time to be sure we have an adequate clean out. The procedure will be done with monitored anesthesia care. Jordin was comfortable with this plan. Thank you again for allowing me to participate in Jordin's care. I shall continue to keep you advised of his progress. 03/08/2024 History of colon cancer (ICD-10 - Z85.038) Overall, Jordin appears very well. Given his personal history of colon cancer and tubular adenomas of the colon, as well as his last colonoscopy being 2 years ago, I did recommend a followup colonoscopy for further screening purposes. We did review the rationale for that in regard to colon cancer prevention. Full consent is obtained for this, including risks of bleeding and perforation. He was given the below instructions regarding adjustment of his insulin for the procedure. He will have a 2 day bowel prep as he did last time to be sure we have an adequate clean out. The procedure will be done with monitored anesthesia care. Jordin was comfortable with this plan. Thank you again for allowing me to participate in Jordin's care. I shall continue to keep you advised of his progress. 03/08/2024 Constipation, unspecified constipation type (ICD-10 - K59.00) Overall, Jordin appears very well. Given his personal history of colon cancer and tubular adenomas of the colon, as well as his last colonoscopy being 2 years ago, I did recommend a followup colonoscopy for further screening purposes. We did review the rationale for that in regard to colon cancer prevention. Full consent is obtained for this, including risks of bleeding and perforation. He was given the below instructions regarding adjustment of his insulin for the procedure. He will have a 2 day bowel prep as he did last time to be sure we have an adequate clean out. The procedure will be done with monitored anesthesia care. Jordin was comfortable with this plan. Thank you again for allowing me to participate in Jordin's care. I shall continue to keep you advised of his progress. Plan Of Treatment Future Test Test Name Order Date COLONOSCOPY 02/23/2019 COLONOSCOPY 07/03/2020 COLONOSCOPY 01/29/2022 COLONOSCOPY 03/08/2024 Next Appt Details Provider Name:Ernesto Wu , 04/04/2025 02:20:00 PM, [address] [place] [address], [address], [place], [address], Insurance Providers Payer Name Payer Address Payer Phone Subscriber Number Group Number Insured Name Patient Relationship to Insured Coverage Start Date Coverage End Date [facility] [address] [place], [place] [id number] [phone] [id number] MELISSA ELDER Self - patient is the insured Medical (General) History Medical History History ICD Code Denies ME,CVA,Lung disease,renal disease IDDM Pulmonary sarcoidosis--inactive Spherocytosis Colonoscopy [...] surgery for stones with Jazlyn Liriano at [facility]
--- OUTSIDE RECORDS SUMMARY | 2024-12-18 15:57 | XMS_ITS | Clinical Summary ---
Author Organization [facility], Address [address] [place] [address] [place] [address] Phone Care Team Providers Care Library Clerk Talking Books Name Role Phone Stuart Will NP Primary Care Provider [phone] Allergies Active Allergy Reactions Criticality Noted Date Comments Dust Mite Extract Other (see comments) 09/08/20 21 Oxymetazoline Other (see comments) 09/08/2021 Medications Cholecalciferol 100 MCG (4000 UT) capsule Take by mouth Active insulin NPH, Isophane, (HumuLIN,NovoLI N) 100 UNIT/ML injection Inject under the skin 2 (two) times a day before meals Active B Complex-C (B complex-vitamin C) tablet Take 1 tablet by mouth 1 (one) time each day Active ketoconazole (NIZORAL) 2 % cream 1 APPL TOPICAL DAILY 14 DAYS 01/27/2021 Active cephalexin (KEFTAB) 500 MG tablet 03/27/2021 Active Active Problems Problem Noted Date Diagnosed Date 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 01/06/2022 Polyneuropathy due to type 1 diabetes mellitus 0 01/06/2022 Diabetes mellitus 01/06/2022 Acquired clubfoot of right foot 01/06/2022 Acquired hammer toe of left foot 01/06/2022 Amputated foot 01/06/2022 Ankle ulcer 01/06/2022 Chronic kidney disease 12/22/2020 Peripheral vascular disease 12/22/2020 Resolved Problems Problem Noted Date Diagnosed Date Resolved Date Personal history of other ma lignant neoplasm of colon 12/22/2020 12/22/2020 Osteoarthritis 12/22/2020 12/22/2020 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 Uric acid renal calculus 12/22/2020 Immunizations Name Administration Dates Next Due Influenza Whole 09/19/2018 Pneumococcal Conjugate 13-Valent 11/11/2018 Pneumococcal Polysaccharide 02/10/2019 Pneumococcal, Unspecified 12/27/2017 Tdap 11/11/2018 Social History Tobacco Use Types Packs/Day Years Used Date Smoking Tobacco: Never Smokeless Tobacco: Never Alcohol Use Standard Drinks/Week Comments Never 0 (1 standard drink = 0.6 oz pur e alcohol) Sex and Gender Information Value Date Recorded Sex Assigned at Not on file Legal Sex Male 12:01 PM EST Gender Identity Not on file Sexual Orientation Not on file Plan of Treatment Health Maintenance Due Date Last Done Comments Diabetes: Hemoglobin A1C 11/19/2021 Diabetes: Ophthalmology Exam 11/19/2021 Diabetes: Pedal Pulse Checked 11/19/2021 Diabetes: Sensory Foot Exam 11/19/2021 Diabetes: Visual Foot Exam 11/19/2021 Influenza Vaccine (#1) 2024 09/19/2018 Pneumococcal Vaccine: 65+ Years Completed 02/10/2019, 11/11/2018, 12/27/2017 Hepatitis B Vaccine Aged Out No longe r eligible based on patient's age to complete this topic [place] [address] [place] [id number] Care Teams Library Clerk Talking Books Relationship Specialty Start Date End Date Stuart Will NP [address] [place] [address] PCP - General Nurse Practitioner 12/06/20
--- OUTSIDE RECORDS SUMMARY | 2024-12-18 15:57 | XMS_ITS ---
Author Organization [facility] Address [address] [place] [address] Care Team Providers Care Unindentured Apprentice Name Role Phone MARC HERNANDEZ Primary Care Provider Ernesto Beck [phone] REASON FOR VISIT left message with answering service Encounters Encounter Location Date Provider Diagnosis [facility] [address] [place] [phone] 10/03/2024 Ernesto Wu Plan Of Treatment Next Appt Details Provider Name:Ernesto Wu , 04/04/2025 02:20:00 PM, [address], [address], [place], [address], Progress Notes * MELISSA HUNT KDOB:[birth year] (79 yo M)Acc No.[id number]:10/03/2024 Patient:?MELISSA HUNT :1945???Age:79 Y???Sex:Male Address:[address] [place] [address] [place] [address] * true * Date:? Generated for Printi doreen/Lila/eTransmitting on:?12/18/2024 03:57 PM EDT
--- OUTSIDE RECORDS SUMMARY | 2024-12-18 15:57 | XMS_ITS ---
Author Organization [facility] Address [address] [place] [address] Care Team Providers Care Tube Room Cashier Name Role Phone MARC HERNANDEZ Primary Care Provider Ernesto Beck [phone] REASON FOR VISIT screening, hx polyps,hx colon ca Encounters Encounter Location Date Provider Diagnosis [facility] [address] [address] [place], [place] [id number] 10/09/2024 Ernesto Wu Plan Of Treatment Next Appt Details Provider Name:Ernesto Wu , 04/04/2025 02:20:00 PM, [address], [address], [place], [address], Progress Notes * MELISSA HUNT KDOB:[birth year] (79 yo M)Acc No.[id number]:10/09/2024 COLON WITH MAC Patient:?MELISSA HUNT Provider:?Ernesto Wu MD :1945???Age:79 Y???Sex:Male David e:10/09/2024 Address:[address] [place], [place] [id number] Pcp:MARC HERNANDEZ Subjective: * Chief Complaints: * ???1. Screening, hx polyps,h x colon ca. * Medical History:? Objective: * Vitals:? Assessment: Plan: * Treatment: * * The named appointment provid er may or may not be the originator of this progress note, and it is not deemed complete until electronically signed by the appointment provider. Sign off status: Pending * Provider:?Ernesto Wu MD Date:? 024 Generated for Alfredo logan/Lila/Dakotaitting on:?12/18/2024 03:56 PM EDT
--- OUTSIDE RECORDS SUMMARY | 2024-12-18 15:57 | XMS_ITS ---
Author Organization [facility] Address [address] [place] [address] Care Team Providers Care Linux Solaris Administrator Name Role Phone Stuart Lozano Primary Care Provider Unav ailable Black, Marychuy Unavailable [phone] REASON FOR VISIT Balance Encounters Encounter Location Date Provider Diagnosis [address] [phone] 11/23/2024 Marychuy Black Plan Of Treatment Next Appt Details Provider Name:Marychuy Archer Warren , 03/15/2025 02:30:00 PM, [address] [place], [address], Progress Notes * Casey SEWELL KDOB:[birth year] (79 yo M)Acc No.[id number]:11/23/2024 Patient:?Casey SEWELL :1945???Age:79 Y???Sex:Male Address:[address] [place] [address], [address] * true * Date:? Generated for Melanyi doreen/Llia/eTransmitting on:?12/18/2024 03:56 PM EDT
--- OUTSIDE RECORDS SUMMARY | 2024-12-18 15:57 | XMS_ITS ---
Author Organization [facility] Address [address] [place] [address] Care Team Providers Care Mobile Patrol Officer Name Role Phone MARC HERNANDEZ Primary Care Provider Ernesto Beck [phone] REASON FOR VISIT medication change. /procedure end of month/waiting on pt call back Encounters Encounter Location Date Provider Diagnosis [facility] [address] [facility] [place] [phone] 09/12/2024 Ernesto Wu Plan Of Treatment Next Appt Details Provider Name:Ernesto Wu , 04/04/2025 02:20:00 PM, [address] [facility], [address], [place], [address], Progress Notes * MELISSA HUNT KDOB:[birth year] (79 yo M)Acc No.[id number]:09/12/2024 Patient:?MELISSA HUNT :1945???Age:79 Y???Sex:Male Address:[address] [place] [address] [place] [address] * true * Date:? Generated for Printi doreen/Lila/eTransmitting on:?12/18/2024 03:57 PM EDT
--- OUTSIDE RECORDS SUMMARY | 2024-12-18 15:57 | XMS_ITS | Patient Health Record ---
Author [facility] Address [address] [place] [address] Care Team Providers Care Zoology Professor Name Role Phone Stuart Lozano Primary Care Provider Unav ailable Black, Marychuy Unavailable [phone] Allergies Allergen (clinical drug ingredient) Drug/Non Drug Allergy documented on EMR Reaction Allergy Type Onset Date Status 12 Hour Nasal [place] Unknown Drug Allergy Active Dust Mites Unknown Allergy Active Results Component Value Reference Range Notes HEMOGLOBIN A1C (GLYCOHEMOGLO BIN) Reviewed date:05/11/2024 03:00:32 PM Interpretation: Performing Lab: Notes/Report: HEMOGLOBIN A1C (HH) 6.0 HEMOGLOBIN A1C (GLYCOHEMOGLO BIN) Reviewed date:11/23/2024 02:15:55 PM Interpretation: Performing Lab: Notes/Report: HEMOGLOBIN A1C % (HH) 5.2 Reason For Referral No Information Medications Medication SIG (Take, Route, Frequency, Duration) Notes Start Date End Date Status HumuLIN N Active Metaform Not-Taking Zinc Active Keflex Not-Taking Vitamin C 500 MG as directed Orally O nce a day Active Turmeric Active AFO-Hinged as directed Wear Juli ly for as needed 09/08/2021 Active Timolol Maleate PF N ot-Taking Ammonium Lactate 12 % 1 application Exte rnally to affected areas of dry skin to feet except for between the toes Twice a day for 30 days Active Vitamin C & E Complex Not-Taking Prevnar 13 Not-Takin g Flax Seed Oil Active Venlafaxine HCl Not- Taking Vitamin B Complex - as directed Orally Active Atenolol Not-Taking Berberine HCI 500 MG as directed Orally Active Vitamin E Not-Taking Vitamin D Active HumaLOG Not-Taking Nattokinase 100 MG as directed Orally Not-Taking Extra Depth Orthopedic Shoes (1 Pair) with Customized Heat Molded Multidensity Innersoles (3 Pair) as directed Dx: IDDM/Polyneuropathy (E10.42), Hammertoe Foot Deformity (M20.41,M20.42), Preulcerative Skin Lesion(s) (L85.1) 06/02/2018 Not-Taking Multivitamins Not-Jacek hensley Ascorbic Acid Not-Jacek hensley M05-Atuoyx Active Aspirin 81 MG 1 tablet Orally Once a day for 30 day(s) Not-Taking Vitamin D3 Active Resveratrol Active Lovastatin Not-Takin g Magnesium Not-Taking Flax Seeds - as directed Orally Not-Taking Aspirin 81 81 MG 1 tablet Orally Once a day Not-Taking Peel 3-6-9 Not-Taki ng Immunizations Vaccine Route Administration Date Status Comme [...] Pt declined flu shot Eye exam, Dr Lopez Pt declined flu shot Eye exam, Dr [...] Problem Acquired hammer toe of right foot (8567776115420274) Other hammer toe(s) (acquired), right foot (M20.41) Active confirmed Problem Acquired hammer toe of left foot (2094360150117219) Other hammer toe(s) (acquired), left foot (M20.42) Active confirmed Problem Non-pressure ulcer lower limb (266890528) Non-pressure chronic ulcer of other part of right foot limited to breakdown of skin (L97.511) Active confirmed Problem Polyneuropathy due to diabetes mellitus type I (088592831) 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 Problem Hammer toe (792218498) Hammer toe of left foot (M20.42) Active confirmed Problem 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 (837015950440331) Charcot foot due to diabetes mellitus (E11.610) Active confirmed Problem Unsteady gait (91184057) Unsteady gait (R26.81) Active confirmed Problem Ankle ulcer (793073863) Skin ulcer of right ankle, limited to breakdown of skin (L97.311) Active confirmed Problem Ulcer of toe of right foot (disorder) (39265115229340384) Skin ulcer of toe of right foot, limited to breakdown of skin (L97.511) Active confirmed Problem Acquired equinovarus deformity (92451053) 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) Active confirmed Problem 28528510805303125 Skin ulcer of toe of left foot, limited to breakdown of skin (L97.521) Active confirmed Vital Signs Blood pressure diastolic 65 mm Hg 11/23/2024 Height 5ft 11in in 11/23/2024 Blood pressure systolic 110 mm Hg 11/23/2024 Weight 215 lbs 11/23/2024 BMI 29.98 kg/m2 11/23/2024 Procedures Procedure Date Ordered Date Performed Result Body Sit e 50902-FBVJFXC NAIL, 1-5 01/20/2024 N/A 89725-Jewzagrt Plate 01/20/2024 N/A 15362-SFPZ SKIN LESIONS, OVER 4 01/20/2024 N/A 34514-INGDXSX NAIL, 6 OR MORE 05/11/2024 N/A 54953-WVDS SKIN LESIONS, OVER 4 05/11/2024 N/A 02227-CDWHBIV NAIL, 1-5 08/17/2024 N/A 96329-Srnzecqu Plate 08/17/2024 N/A 42782-Yzgsxtco Plate Each Additional 08/17/2024 N/A 74838-NAXB SKIN LESIONS, OVER 4 08/17/2024 N/A 98216-GKADYBJ NAIL, 6 OR MORE 11/23/2024 N/A 32957-GLST SKIN LESIONS, OVER 4 11/23/2024 N/A Encounters Encounter Location Date Provider Diagnosis [address] [address] 01/20/2024 Marychuy Black Type 1 diabetes mellitus with diabetic polyneuropathy E10.42 ; Tinea unguium B35.1 and Ingrown nail L60.[address] [address] 05/11/2024 Marychuy Black Type 1 diabetes mellitus with diabetic polyneuropathy E10.42 and Tinea unguium B35.[address] [address] 08/17/2024 Marychuy Black Type 1 diabetes mellitus with diabetic polyneuropathy E10.42 ; Tinea unguium B35.1 ; Ingrown nail L60.0 and Skin ulcer of toe of left foot, limited to breakdown of skin L97.[address] [address] 11/23/2024 Marychuy Black Type 1 diabetes mellitus with diabetic polyneuropathy E10.42 ; Xerosis of skin L85.3 and Tinea unguium B35.[address] [address] 04/18/2024 Marychuy Black [address] [address] 08/22/[address] [address] 11/23/2024 Marychuy Black Assessments Encounter Date Diagnosis (ICD Code) Assessment Notes Treatment Notes Treatment Clinical Notes Section Notes 01/20/2024 Tinea unguium (ICD-10 - B35.1) 01/20/2024 Type 1 diabetes mellitus with diabetic polyneuropathy (ICD-10 - E10.42) 05/11/2024 Tinea unguium (ICD-10 - B35.1) 05/11/2024 Type 1 diabetes mellitus with diabetic polyneuropathy (ICD-10 - E10.42) 08/17/2024 Tinea unguium (ICD-10 - B35.1) 08/17/2024 Type 1 diabetes mellitus with diabetic polyneuropathy (ICD-10 - E10.42) 11/23/2024 Type 1 diabetes mellitus with diabetic polyneuropathy (ICD-10 - E10.42) 11/23/2024 Xerosis of skin (ICD-10 - L85.3) 11/23/2024 Tinea unguium (ICD-10 - B35.1) 08/17/2024 Ingrown nail (ICD-10 - L60.0) 01/20/2024 Ingrown nail (ICD-10 - L60.0) 08/17/2024 Skin ulcer of toe of left foot, limited to breakdown of skin (ICD-10 - L97.521) Plan Of Treatment Pending Test Test Name Order Date Hemoglobin A1c 12/02/2015 03278-NVDHAPQ NAIL, 6 OR MORE 11/23/2024 92190-HTPLSOS NAIL, 6 OR MORE 02/21/2015 29141-OPZRISR NAIL, 6 OR MORE 05/11/2024 93081-SWZTQSN NAIL, 6 OR MORE 06/22/2022 91045-SUDWNED NAIL, 6 OR MORE 09/28/2022 95575-MGSDQAL NAIL, 6 OR MORE 12/28/2022 00979-FEEMHEP NAIL, 6 OR MORE 04/05/2023 65714-PSATJQN NAIL, 6 OR MORE 07/08/2023 80259-HTVCGWG NAIL, 6 OR MORE 10/21/2023 72103-EKZKYKU NAIL, 6 OR MORE 09/13/2013 25942-XYCORPA NAIL, 6 OR MORE 06/28/2013 11336-KIJAMJQ NAIL, 6 OR MORE 12/03/2011 13488-RLCNWSJ NAIL, 6 OR MORE 05/13/2015 70368-NVUAVDL NAIL, 6 OR MORE 03/22/2014 47536-HCCYIRW NAIL, 6 OR MORE 03/03/2012 08760-HEYABJC NAIL, 6 OR MORE 10/01/2011 03012-HKDJTWH NAIL, 6 OR MORE 06/02/2012 42496-ZXGHCAG NAIL, 6 OR MORE 11/03/2012 82991-UWDQYDM NAIL, 6 OR MORE 04/03/2013 94142-PXTPSTA NAIL, 6 OR MORE 12/13/2013 66313-CYKNNMW NAIL, 6 OR MORE 06/21/2014 53104-ECJLQEJ NAIL, 6 OR MORE 09/20/2014 80919-WVKYQNH NAIL, 6 OR MORE 12/06/2014 24434-ILYEIVK NAIL, 6 OR MORE 01/23/2013 62804-URJATNN NAIL, 6 OR MORE 09/09/2015 16138-GQTKAXG NAIL, 6 OR MORE 12/02/2015 40976-KGHKISJ NAIL, 6 OR MORE 02/24/2016 00286-TJVWATP NAIL, 6 OR MORE 06/01/2016 12347-JGFOUPJ NAIL, 6 OR MORE 08/27/2016 62724-CZYWZAW NAIL, 6 OR MORE 12/07/2016 60650-PSAWMQK NAIL, 6 OR MORE 03/11/2017 49696-YZXJZRJ NAIL, 6 OR MORE 06/24/2017 26110-BOHCWUJ NAIL, 6 OR MORE 09/27/2017 10139-BAXWHGD NAIL, 6 OR MORE 12/27/2017 52369-SXZHYYO NAIL, 6 OR MORE 06/02/2018 63682-RKFPSRJ NAIL, 6 OR MORE 08/25/2018 23047-KTFJLVD NAIL, 6 OR MORE 11/24/2018 68183-YBTUXAW NAIL, 6 OR MORE 03/09/2019 45275-CDIYAES NAIL, 6 OR MORE 06/05/2019 85156-WPAGVVA NAIL, 6 OR MORE 09/18/2019 55330-BFHKSTB NAIL, 6 OR MORE 03/11/2020 93003-TZYUVHR NAIL, 6 OR MORE 06/13/2020 66288-XEPIFCL NAIL, 6 OR MORE 09/23/2020 99525-VVZJAQX NAIL, 6 OR MORE 12/02/2020 00219-ICUMOXR NAIL, 6 OR MORE 03/13/2021 63137-CMVZVBB NAIL, 6 OR MORE 06/09/2021 30149-NTQJPWJ NAIL, 6 OR MORE 09/08/2021 91062-HLHOATK NAIL, 6 OR MORE 01/30/2022 40462-YGJQFQF NAIL, -01/20/2024 69800-DLVOHNI NAIL, -08/17/2024 72126-Jmxf Destruction, 10-2402/21/2015 36278-Zwdh Destruction, 10-2403/22/2014 16565-Pyyj Destruction, 10-2405/13/2015 32343-Bkel Destruction, 10-2412/03/2011 01153-Ovdu Destruction, 10-2406/28/2013 60290-Pfyu Destruction, 10-2409/13/2013 06844-Uvhu Destruction, 10-2409/08/2021 82605-Mjcg Destruction, 10-2406/09/2021 58670-Hkmf Destruction, 10-2403/11/2020 51602-Byep Destruction, 10-2409/18/2019 83274-Khhf Destruction, 10-2406/05/2019 31913-Gijq Destruction, 10-2403/09/2019 32213-Avbd Destruction, 10-2412/06/2014 10676-Xlru Destruction, 10-2409/20/2014 82528-Fcor Destruction, 10-2406/21/2014 73231-Zlxx Destruction, 10-2412/13/2013 71799-Bper Destruction, 10-2404/03/2013 54252-Onix Destruction, 10-2401/23/2013 48960-Ajdi Destruction, 10-2411/03/2012 67160-Wtsi Destruction, 10-2406/02/2012 37792-Oloq Destruction, 10-2410/01/2011 10368-Jjru Destruction, 10-2403/03/2012 88664-Wkycbcpd Plate 03/03/2012 09721-Duloughl Plate 06/02/2012 81213-Vxxlxzex Plate 11/03/2012 74611-Frajyvco Plate 01/23/2013 35199-Zcruaqfs Plate 04/03/2013 63411-Bnljyfcg Plate 12/13/2013 74257-Laycblfg Plate 06/21/2014 64709-Gonligfu Plate 09/20/2014 16521-Gfuvzryv Plate 12/06/2014 53390-Boiyksaa Plate 12/02/2015 19056-Xzmckcmt Plate 12/07/2016 34384-Kbvfqwox Plate 08/27/2016 24838-Rxtehugs Plate 06/01/2016 24018-Cfgznqgf Plate 02/24/2016 24645-Mxigqmpo Plate 03/09/2019 10035-Gsyhzkue Plate 11/24/2018 78133-Qydccshi Plate 06/05/2019 54471-Bhaczfwb Plate 09/18/2019 94656-Zgixosug Plate 08/25/2018 47995-Jfduuqyl Plate 09/27/2017 87837-Quhnqktb Plate 09/09/2015 30860-Ofwgfrsn Plate 12/27/2017 72583-Dybjcerb Plate 03/11/2020 10330-Karfaiti Plate 06/13/2020 71504-Pjagjitm Plate 09/23/2020 58808-Qxnvuqpk Plate 03/13/2021 06359-Ypzllejp Plate 06/09/2021 88817-Cqilhywg Plate 09/08/2021 89155-Pkuaxcwa Plate 01/30/2022 24481-Bmggxuqn Plate 09/13/2013 17075-Yexpqait Plate 06/22/2022 12811-Zywuwmtt Plate 06/28/2013 62282-Gywhslhm Plate 12/03/2011 47820-Pjahqgno Plate 05/13/2015 51888-Tattrtpn Plate 02/21/2015 29482-Opkspmoi Plate 03/22/2014 16108-Dduxwbbf Plate 01/20/2024 11984-Zzzgmvmz Plate 08/17/2024 25733-Sevwaxch Plate Each Additional 04/2024 15121-Eraqdanp Plate Each Additional 09/2014 72393-Mwhjpklj Plate Each Additional 47110-Zfnerhyn Plate Each Additional 12/2014 15009-Ycwraeio Plate Each Additional 40365-Zcybcmap Plate Each Additional 01/2013 06716-Diaqlgqs Plate Each Additional 09/2022 35509-Hasxmprz Plate Each Additional 67785-Mhmmdyzi Plate Each Additional 55732-Ifosonmm Plate Each Additional 98598-Kcyxanii Plate Each Additional 12/2020 12738-Befvnclg Plate Each Additional 41983-Iejypiyr Plate Each Additional 48478-Ctzfnvxm Plate Each Additional 94238-Cmmopele Plate Each Additional 06/2019 75764-Ufmknmqs Plate Each Additional 10/2019 54198-Ajujnfbd Plate Each Additional 99903-Innqktax Plate Each Additional 81983-Hrqwiqqc Plate Each Additional 01562-Djmvlgdy Plate Each Additional 93393-Cfunntbk Plate Each Additional 80485-Xcaoelmr Plate Each Additional 48353-Yhswaqor Plate Each Additional 80326-Nimwsqao Plate Each Additional 78729-Idsldhen Plate Each Additional 25764-Zoepcyyk Plate Each Additional 08/2014 96299-Ydzkgwpi Plate Each Additional 08/2014 77090-Cfqkgfxv Plate Each Additional 02/2014 56929-Erhmsyoo Plate Each Additional 79765-Zjtnacvi Plate Each Additional 49645-Pngeptba Plate Each Additional 18592-Rixytufo Plate Each Additional 90884- Debride <25 sq cm 06/13/2020 88480- Debride <25 sq cm 04/05/2023 24956 I&D ABSCESS- SIMPLE,SINGLE 013 95848 I&D ABSCESS- SIMPLE,SINGLE 013 11480-HXNO SKIN LESIONS, OVER 4 04/03/20 13 60704-FOZX SKIN LESIONS, OVER 4 12/14/19 14 17137-GJAY SKIN LESIONS, OVER 4 06/21/20 14 40218-HAMM SKIN LESIONS, OVER 4 11/03/19 13 95779-JZJA SKIN LESIONS, OVER 4 09/20/20 14 22532-NUPA SKIN LESIONS, OVER 4 12/06/19 15 72642-UNUE SKIN LESIONS, OVER 4 09/09/20 15 12714-NMTR SKIN LESIONS, OVER 4 01/24/20 13 64450-WZCB SKIN LESIONS, OVER 4 12/02/19 16 76079-ZCZW SKIN LESIONS, OVER 4 12/07/19 17 97362-MTQJ SKIN LESIONS, OVER 4 03/11/20 17 82597-URCK SKIN LESIONS, OVER 4 08/27/20 16 76982-QTVR SKIN LESIONS, OVER 4 06/01/20 16 38432-KEXI SKIN LESIONS, OVER 4 02/24/20 16 38330-WYHS SKIN LESIONS, OVER 4 06/13/20 46849-MGNV SKIN LESIONS, OVER 4 09/23/20 09703-LSIY SKIN LESIONS, OVER 4 03/13/20 87305-QMGZ SKIN LESIONS, OVER 4 12/02/19 02347-VWPR SKIN LESIONS, OVER 4 09/08/20 17004-XEDF SKIN LESIONS, OVER 4 06/09/20 21 98461-VGXY SKIN LESIONS, OVER 4 01/31/20 64437-HQCJ SKIN LESIONS, OVER 4 03/09/20 19 15587-IPJB SKIN LESIONS, OVER 4 06/05/20 19 65674-YWNB SKIN LESIONS, OVER 4 03/11/20 59200-RPQJ SKIN LESIONS, OVER 4 09/18/20 12403-TQID SKIN LESIONS, OVER 4 12/28/19 18 86861-WXOZ SKIN LESIONS, OVER 4 06/02/20 18 20162-DAFN SKIN LESIONS, OVER 4 08/25/20 18 56740-CBOJ SKIN LESIONS, OVER 4 11/24/19 38262-DKJF SKIN LESIONS, OVER 4 09/27/20 17 10308-MNRN SKIN LESIONS, OVER 4 06/24/20 17 75730-RCVE SKIN LESIONS, OVER 4 04/05/20 23 21835-YYSP SKIN LESIONS, OVER 4 12/29/19 23 96253-GBAS SKIN LESIONS, OVER 4 06/22/20 59676-YUSY SKIN LESIONS, OVER 4 09/28/20 64807-UNBY SKIN LESIONS, OVER 4 09/13/20 13 81487-GBCI SKIN LESIONS, OVER 4 10/21/19 24 30034-ZBMC SKIN LESIONS, OVER 4 07/08/20 23 74383-SWUX SKIN LESIONS, OVER 4 06/28/20 13 23754-BLKC SKIN LESIONS, OVER 4 05/13/20 15 43137-HGPM SKIN LESIONS, OVER 4 03/22/20 14 68702-FADY SKIN LESIONS, OVER 4 01/20/20 24 83320-RRLW SKIN LESIONS, OVER 4 08/17/20 24 84039-CMOP SKIN LESIONS, OVER 4 02/22/20 15 76434-NRLT SKIN LESIONS, OVER 4 05/11/20 24 54075-PMJS SKIN LESIONS, OVER 4 11/23/19 25 18997-LVSF SKIN LESIONS, 2 TO 4 12/03/19 12 75777-HABA SKIN LESIONS, 2 TO 4 08/23/20 12 43493-EQCH SKIN LESIONS, 2 TO 4 10/01/20 11 45023-XABD SKIN LESIONS, 2 TO 4 03/03/20 12 Next Appt Details Provider Name:Marychuy Kelley , 03/15/2025 02:30:00 PM, [address] [place], [address], Insurance Providers Payer Name Payer Address Payer Phone Subscriber Number Group Number Insured Name Patient Relationship to Insured Coverage Start Date Coverage End Date [facility] [address] [place] [address] [phone] [id number] Casey Ulrich Self - patient is the insured Medical [...] disease 04/2020 Hospitalization History Reason Date(Month/Year) [facility] [place] Possible Heart Attack/Stress Anxiet y/Covid 07/31 [facility]- Bl[facility] [place]- chest pain 10/31 [facility] [place] Pressure wound right ankle - saw levar bonilla [facility]- chest pain 10/2015
== END 2024-12-18 14:45 | disposition home or self-care (01) ==
PROVIDERS: PCP Nurse Practitioner Family; Visit Provider Physician Assistant
DX: B34.9 Viral infection, unspecified (principal); H61.23 Impacted cerumen, bilateral

== ENCOUNTER 2024-12-18 14:02 | Outpatient (REF) | payer BC, SELFPAY ==
--- OUTSIDE RECORDS SUMMARY | 2024-12-18 16:29 | XMS_ITS | Clinical Summary ---
Author Organization [facility] ity Address [address] [place] [address] Care Team Providers Care Pickers Material Handlers Name Role Phone Unavailable Primary Care Provider [...]
--- OUTSIDE RECORDS SUMMARY | 2024-12-18 16:29 | XMS_ITS | Clinical Summary ---
Author Organization [facility], Address [address] [place] [address] [place] [address] Phone Care Team Providers Care Line Fisher Name Role Phone Stuart Will NP Primary Care Provider [phone] Allergies Active Allergy Reactions Criticality Noted Date [...] patient's age to complete this topic [place] [address] Care Teams Line Fisher Relationship Specialty Start Date End Date Stuart Will NP [address] [place] [address] PCP - General Nurse Practitioner 12/06/20
[2024-12-18 18:48] LABS: Influenza A PCR NEGATIVE (Negative); Influenza B PCR NEGATIVE (Negative); Resp Syncy Virus RNA Qual PCR NEGATIVE (Negative); SARS COV2 PCR INHOUSE NEGATIVE (Negative)
== END 2024-12-18 14:03 | disposition home or self-care (01) ==
LOC: HO.LAB 14:02
PROVIDERS: Physician Assistant; PCP Nurse Practitioner Family
DX: R09.89 Other specified symptoms and signs involving the circulatory and respiratory systems (principal); B34.9 Viral infection, unspecified; R05.8 Other specified cough
CPT/HCPCS: 0241U

== ENCOUNTER 2024-12-18 14:45 | Outpatient (REF) | payer BC, SELFPAY ==
--- NOTE | ~2024-12-18 | XR_ITS ---
EXAMINATION: XR CHEST 2 VIEWS HISTORY: R05.9 - Cough, unspecified COMPARISON: Comparison is made with the prior examination dated 09/29/2024. FINDINGS: PA and lateral views of the chest are submitted. The lungs are expanded and clear. There is no pleural effusion, pneumothorax, or pulmonary vascular congestion. The heart is normal in size. There is degenerative disc disease of the spine. There are surgical clips in the left upper quadrant. XR/XR chest 2V IMPRESSION: No acute cardiopulmonary abnormality. Electronically signed by: Ernesto Tracy MD 12/18/2024 03:13 PM EDT
== END 2024-12-18 14:46 | disposition home or self-care (01) ==
LOC: HO.HMGCX 14:45
PROVIDERS: PCP Internal Medicine; Visit Provider Physician Assistant
DX: R05.9 Cough, unspecified (principal)
CPT/HCPCS: 71046

== ENCOUNTER → 2024-12-18 14:50 | Outpatient (BNV) | payer BC, SELFPAY | PROVIDERS: PCP Internal Medicine; Visit Provider Radiology Diagnostic Radiology | DX: R05.9 Cough, unspecified (principal) | CPT/HCPCS: 71046 ==

== ENCOUNTER 2024-12-25 12:17 | Outpatient (REF) | payer BC, SELFPAY ==
[2024-12-25 13:33] LABS: B Type Natriuretic Peptide 39 pg/mL (<100)
--- OUTSIDE RECORDS SUMMARY | 2024-12-25 14:26 | XMS_ITS ---
Author Organization [facility] Address [address] [place] [address] Care Team Providers Care Air Conditioning Insulation Installer Name Role Phone Stuart Lozano Primary Care Provider Unav ailable Black, Marychuy Unavailable [phone] REASON FOR VISIT rx for AFO Encounters Encounter Location Date Provider Diagnosis [address] [address] 08/22/2024 Marychuy Black Plan Of Treatment Next Appt Details Provider Name:Marychuy Archer Warren , 03/15/2025 02:30:00 PM, [address] [place], [address], Progress Notes * Casey SEWELL KDOB:[birth year] (79 yo M)Acc No.[id number]:08/22/2024 Patient:?Casey SEWELL :1945???Age:79 Y???Sex:Male Address:[address] [place] [address] [place], [address] * true * Date:? Generated for Printi ng/Fadoeg/eTransmitting on:?12/25/2024 02:26 PM EDT
--- OUTSIDE RECORDS SUMMARY | 2024-12-25 14:26 | XMS_ITS ---
Author Organization [facility] Address [address] [place] [address] Care Team Providers Care Buffing Wheel Operator Name Role Phone MARC HERNANDEZ Primary Care Provider Ernesto Beck [phone] REASON FOR VISIT screening, hx polyps,hx colon ca Encounters Encounter Location Date Provider Diagnosis [facility] Out[facility] [address], [place] [phone] 10/09/2024 Ernesto Wu Plan Of Treatment Next Appt Details Provider Name:Ernesto Wu , 04/04/2025 02:20:00 PM, [address], [address], [place], [address], Progress Notes * MELISSA HUNT KDOB:[birth year] (79 yo M)Acc No.[id number]:10/09/2024 COLON WITH MAC Patient:?MELISSA HUNT Provider:?Ernesto Wu MD :1945???Age:79 Y???Sex:Male David e:10/09/2024 Address:[address] [place], [place] [id number] Pcp:MARC HERNANDEZ Subjective: * Chief Complaints: * [...] MD Date:? 024 Generated for Alfredo logan/Lila/Dakotaitting on:?12/25/2024 02:26 PM EDT
--- OUTSIDE RECORDS SUMMARY | 2024-12-25 14:26 | XMS_ITS | Patient Health Record ---
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 Problem 026628943064027 Preprocedural examination (Z01.818) Active confirmed Problem 129673329 History of colon cancer (Z85.038) Active confirmed Problem 87663453 Constipation, unspecified constipation type (K59.00) Active confirmed Problem Diverticulosis of colon (945282447) Diverticulosis of colon (K57.30) Active confirmed Problem 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) Active confirmed Vital Signs Temperature 97.7 degrees Fahrenheit 03/08/2024 Blood pressure diastolic 00 mm Hg 03/08/2024 Height 71.5 in 03/08/2024 Blood pressure systolic 000 mm Hg 03/08/2024 Weight 214 lbs 03/08/2024 BMI 29.43 kg/m2 03/08/2024 Encounters Encounter Location Date Provider Diagnosis [facility] [address] [place] [address] 03/08/2024 Ernesto Wu History of adenomato us polyp of colon Z86.010 ; Preprocedural examination Z01.818 ; Encounter for screening for malignant neoplasm of colon Z12.11 ; History of colon cancer Z85.038 and Constipation, unspecified constipation type K59.00 [facility] [address] [place] [address] 09/12/2024 Ernesto Wu [facility] [address] [place] [address] 10/03/2024 Ernesto Wu Assessments Encounter Date Diagnosis [...] Provider Name:Ernesto Wu , 04/04/2025 02:20:00 PM, [address] [place] [address], [address], [place], [address], Insurance Providers Payer Name Payer Address Payer Phone Subscriber Number Group Number Insured Name Patient Relationship to Insured Coverage Start Date Coverage End Date [facility] [address] [place], [place] [id number] [phone] [id number] MELISSA ELDER Self - patient is the insured Medical (General) History Medical History History ICD Code Denies MT,CVA,Lung disease,renal disease IDDM Pulmonary sarcoidosis--inactive Spherocytosis Colonoscopy [...] surgery for stones with Jazlyn Liriano at [facility]
--- OUTSIDE RECORDS SUMMARY | 2024-12-25 14:26 | XMS_ITS ---
Author Organization [facility] Address [address] [place] [address] Care Team Providers Care Pipe Fitter Gas Pipe Name Role Phone Stuart Lozano Primary Care Provider Unav ailable Black, Marychuy Unavailable [phone] Allergies Allergen (clinical drug ingredient) Drug/Non Drug Allergy documented on EMR Reaction Allergy Type Onset Date Status oxymetazoline 12 Hour Nasal [place] Unknown Drug Allergy Active Dust Mites Unknown [...] Twice a day for 30 days Active [place] 3-6-9 Not-Jd ng Timolol Maleate PF N [...] as directed Orally Active Vitamin D Active H28-Hhabst Active Vitamin D3 Active Social History Tobacco [...] Ordered Date Performed Result Body Sit e 04460-RFYYGWH NAIL, 6 OR MORE 11/23/2024 N/A 28647-SDZS SKIN LESIONS, OVER 4 11/23/2024 N/A Encounters Encounter Location Date Provider Diagnosis [facility] [address] [place] [address] 11/23/2024 Marychuy Black Type 1 diabetes mellitus [...] days Pending Test Test Name Order Date [id number]-GGQBYDU NAIL, 6 OR MORE 11/23/2024 22953-OKLP SKIN LESIONS, OVER 4 11/23/19 25 Next Appt Details Follow Up: prn, Reason: Provider Name:Marychuy Kelley , 03/15/2025 02:30:00 PM, [address] [place] [address], [address], Procedure Notes * Category Sub-Category Detail Notes [...] use of a nail nipper and/or dremel-type crankshaft grinder, to a more viable healthy nail [...] to maintain effectiveness in symptomatic relief - 57623 Keratoma Treatment Parring or Cutting o f [...] instrumentation by the physician of record - 08981 Progress Notes * Casey SEWELL KDOB:[birth year] (79 yo M)Acc No.[id number]:11/23/2024 Progress Note Patient:?Casey SEWELL Provider:?Marychuy Kelley DPM :1945???Age:79 Y???Sex:Male David e:11/23/2024 Address:[address] [place] [address] [facility] Pcp:IVORY Mattson Subjective: * Chief Complaints: * [...] History:? * Surgical History:?amputation of foot total(partial) 2002cholecystectomy 1976splenectomy 1976tonsillectomy 1951colonoscopy 07/31/19sierra stones- 4 removed- left kidney- renal scan - kidney disease 04/2020 * Hospitalization/Major Diagno stic Procedure:?[facility]- chest pain 10/2015[facility]- [facility] wound right [facility] - [place] [facility] [place] [place] [facility] [place] Possible Heart Attack/Stress Anxiety/Covid 07/31 * Family [...] no. ?Marital status: single. 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 * Medications:?ThxfejT77-Dujgy e Vitamin D3 Resveratrol Flax Seed Oil Vitamin B Complex - Tablet as directed Orally Berberine HCI 500 MG Capsule as directed Orally Vitamin D HumuLIN N Zinc Vitamin C 500 MG Capsule as directed Orally Once a day Turmeric AFO-Hinged as directed Wear Daily Taking P09-Pbecfk Taking Vitamin D3 Taking Resveratrol Taking Flax [...] Release 1 tablet Orally Once a day [place] 3-6-9 Nattokinase 100 MG Capsule as directed [...] 1 tablet Orally Once a day Not-Taking/PRN [place] 3-6-9 Not-Taking/PRN Nattokinase 100 MG Capsule as [...] 30 days, 280, Refills 3.?? 3.?Tinea unguium?Procedure: 74118-UCDFBOY NAIL, 6 OR MORE * Procedures:?Debride Nail [...] use of a nail nipper and/or dremel-type crankshaft grinder, to a more viable healthy nail [...] to maintain effectiveness in symptomatic relief - 30036.?Keratoma Treatment:?Parring or Cutting of Benign Hyperkeratotic Lesion(s)?(-57) [...] instrumentation by the physician of record - 79655.? * Procedure Codes:?09439 TRIM SKIN LESIONS, OVER 4, Modifiers: XS 01467 DEBRIDE NAIL, 6 OR MORE, Modifiers: XS [...] Kelley DPM Date:?2024 Generated for Alfredo logan/Lila/eTransmitting on:?12/25/2024 02:26 PM EDT History and Physical Notes * [...]
--- OUTSIDE RECORDS SUMMARY | 2024-12-25 14:26 | XMS_ITS | Clinical Summary ---
Author Organization [facility] ity Address [address] [place] [address] Care Team Providers Care Sensitometrist Name Role Phone Unavailable Primary Care Provider [...]
--- OUTSIDE RECORDS SUMMARY | 2024-12-25 14:27 | XMS_ITS ---
Author Organization [facility] Address [address] [place] [address] Care Team Providers Care Licensing Services Clerk Name Role Phone Stuart Lozano Primary Care Provider Unav ailable Black, Marychuy Unavailable [phone] REASON FOR VISIT Balance Encounters Encounter Location Date Provider Diagnosis [address] [address] 11/23/2024 Marychuy Black Plan Of Treatment Next Appt Details Provider Name:Marychuy Archer Warren , 03/15/2025 02:30:00 PM, [address] [place], [address], Progress Notes * KENANCasey FUNES KDOB:[birth year] (79 yo M)Acc No.[id number]:11/23/2024 Patient:?Casey SEWELL :1945???Age:79 Y???Sex:Male Address:[address] [place] [address], [address] * true * Date:? Generated for Printi doreen/Lila/eTransmitting on:?12/25/2024 02:27 PM EDT
--- OUTSIDE RECORDS SUMMARY | 2024-12-25 14:27 | XMS_ITS ---
Author Organization [facility] Address [address] [place] [address] Care Team Providers Care Lumber Racker Name Role Phone MARC HERNANDEZ Primary Care Provider Ernesto Beck [phone] REASON FOR VISIT medication change. /procedure end of month/waiting on pt call back Encounters Encounter Location Date Provider Diagnosis [facility] [address] [facility] [address] [place] [address] 09/12/2024 Ernesto Wu Plan Of Treatment Next Appt Details Provider Name:Ernesto Wu , 04/04/2025 02:20:00 PM, [address] [facility], [address], [place], [address], Progress Notes * MELISSA HUNT KDOB:[birth year] (79 yo M)Acc No.[id number]:09/12/2024 Patient:?MELISSA HUNT :1945???Age:79 Y???Sex:Male Address:[address] [place] [address] [place] [address] * true * Date:? Generated for Printi doreen/Lila/eTransmitting on:?12/25/2024 02:27 PM EDT
--- OUTSIDE RECORDS SUMMARY | 2024-12-25 14:27 | XMS_ITS ---
Author Organization [facility] Address [address] [place] [address] Care Team Providers Care Web Feeder Name Role Phone MARC HERNANDEZ Primary Care Provider Ernesto Beck [phone] REASON FOR VISIT left message with answering service Encounters Encounter Location Date Provider Diagnosis [facility] [address] [place] [address] 10/03/2024 Ernesto Wu Plan Of Treatment Next Appt Details Provider Name:Ernesto Wu , 04/04/2025 02:20:00 PM, [address], [address], [place], [address], Progress Notes * MELISSA HUNT KDOB:[birth year] (79 yo M)Acc No.[id number]:10/03/2024 Patient:?MELISSA HUNT :1945???Age:79 Y???Sex:Male Address:[address] [place] [address] [place] [address] * true * Date:? Generated for Printi doreen/Lila/eTransmitting on:?12/25/2024 02:27 PM EDT
--- OUTSIDE RECORDS SUMMARY | 2024-12-25 14:27 | XMS_ITS | Clinical Summary ---
Author Organization [facility], Address [address] [place] [address] [place] [address] Phone Care Team Providers Care Turner Off Name Role Phone Stuart Will NP Primary Care Provider [phone] Allergies Active Allergy Reactions Criticality Noted Date [...] patient's age to complete this topic [place] [place] [address] Care Teams Turner Off Relationship Specialty Start Date End Date Stuart Will NP [address] [place] [address] PCP - General Nurse Practitioner 12/06/20
== END 2024-12-25 12:18 | disposition home or self-care (01) ==
LOC: HO.HMGCLDS 12:17
PROVIDERS: PCP Nurse Practitioner Family; Referring Provider Internal Medicine Medical Oncology; Visit Provider Nurse Practitioner Family
DX: R06.02 Shortness of breath (principal)
CPT/HCPCS: 36415; 83880

== ENCOUNTER 2024-12-28 15:33 | Outpatient (AMB) | payer BC, SELFPAY ==
[2024-12-28 15:37] VITALS: BP 118/66; PULSE 90; TEMP 37.1; O2SAT 95; BMI 28.6
--- NOTE | 2024-12-28 15:37 | A.OFFPC_ITS ---
Vital Signs 12/28/24 15:37 Height 5 ft 11 in Weight 205 lb BMI 28.6 BP 118/66 Blood Pressure Location Lt brachial Position Sitting Pulse 90 Pulse Source Pulse Oximeter Temp 98.8 F Temp Source Oral Pulse Oximetry (%) 95 Oxygen Delivery Method Room Air Intake Visit Reasons: 3m follow up Corporate Executive Required: No Accompanied by: Self / Same As Patient Allergies penicillamine Allergy (Unknown, Verified 12/28/24 17:13) unknown Medication List - Last Reconciled 12/28/24 by YOMI Morelos- alpha lipoic acid 200 mg PO BID ascorbate calcium (vitamin C) 1.5 grams PO DAILY berberine-herbal comb no.18 500 caps PO BID blood sugar diagnostic (Contour Test Strips) 5 times a day blood-glucose sensor (FreeStyle Nilsa 3 Sensor device) Test blood sugar 4 times per day cholecalciferol (vitamin D3) 1,200 units PO DAILY dorzolamide 2% 2 drps ophthalmic (eye) DAILY insulin NPH isoph U-100 human (Humulin N NPH U-100 Insulin (isophane susp)) 30 units subcut BID insulin syringe-needle U-100 (BD Insulin Syringe Ultra-Fine) Use to inject insulin twice per day latanoprost 0.005% 1 drp ophthalmic (eye) QPM leg brace (Ankle Brace) LEFT AFO custom molded for foot drop Custom shoes, diabetic foot [resvertrol ] turmeric (bulk) 95% (Curcumin) 95 ea miscellaneous DAILY vitamin B complex 1 cap PO DAILY zinc 50 mg PO DAILY Tobacco use date assessed: 12/28/24 Fall risk assessment: No Falls in past year Last assessed Fall Risk: 12/28/24 Dental Screening Dental Screen Date: 12/28/24 Did you have a dental visit in the last 12 months?: Yes Did you have a dental problem in the last 6 months where you did not have access to dental care?: No Was dental information given to patient?: Patient has dentist HPI 3m follow up HPI Details Chief Complaint The patient presents for follow-up of diabetes and evaluation of worsening neuropathy. History of Present Illness The patient is a 79-year-old male presenting for the follow-up of diabetes mellitus with associated neuropathy. He reports longstanding neuropathy in the lower extremities, particularly affecting the feet, a condition that has persisted and extends towards the knees. Previous podiatric surgeries on his right foot have resulted in the loss of two toes, necessitating regular podiatric care and the use of a walker. 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 Despite the challenges, he denies any severe psychological distress or ideations requiring immediate intervention. He prefers to remain active within his home setting and manages his condition independently, with recent iron overload concerns, now under ongoing hemato logical evaluation for elevated ferritin. 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 - Reports experiencing significant finan cial stress but indicates he is getting by. - Denies using external therapeutic supp ort. - Remains consistently engaged in home a ctivities. - Reports having assets that could be so ld to assist financially. Health Maintenance - Encourages yearly ophthalmological exa minations. - Advises routine podiatric assessment a ky care. - Prior lab work includes a hemochromato sis panel, which was negative. Review of Systems - Neurological: Reports significant neur opathy in lower extremities progressing towards the knees. - Psychological: Denies suicidal or homi cidal ideations. - Respiratory: Denies any lung-related s ymptoms; lung sounds were described as clear without unusual findings. Physical Exam General: Cooperative, healthy appearing, comfortable, no acute distress and well developed Orientation: Patient oriented x3 Limitations: Uses a walker Head: Normal to inspection Ears: Hearing grossly normal bilaterally Nose: Normal external nose present Face and sinus: Normal facial exam Eyes: Appearance normal, both eyes and all related structures Neck: Normal visual inspection and Yes full ROM Respiratory: Normal respiratory effort and able to speak in complete sentences. Clear to auscultation bilaterally Cardiovascular: Regular rate and rhythm. Normal S1 and S2 GI: Normal to inspection. Soft to palpation and nontender Skin: No rashes or lesions noted Neuro: Significant neuropathy by the lower extremities. No sensation with the use of monofilament to bilateral lower feet. Starting to get feeling closer to his knees. Extremities: Extensive surgeries to the right foot with three toes remaining. Last two toes of the right foot amputated. Normal to inspection bilat Results - Labs: Hemochromatosis panel conducted previously was negative. Plan To enhance diabetic management, I have included an A1c test in today's lab request. The patient's neuropathy requires ongoing podiatric care, and he benefits from the use of a walker for mobility. His elevated ferritin is investigated through ongoing hematological evaluation, despite earlier negative results for hemochromatosis. He declines mental health services but willingly reports managing stress within his resources. Recommended returning for annual eye check-ups, considering potential diabetes-related complications. Discussion Notes I discussed with the patient the management plan concerning his diabetes and its complications. The patient was informed about the necessity of continuing regular podiatric assessments due to the degree of neuropathy and his previous surgeries. The importance of monitoring his condition through lab tests, like A1c levels, was clearly explained. I reassured him about the collaborative approach undertaken to address hematological aspects regarding elevated ferritin levels and anticipated variants in results affecting lifestyle management. I emphasized continued eye care importance and the management strategies provided ensure comprehensive continuity of care. Patient Instructions - Continue monitoring blood sugar levels and maintain routine A1c testing. - Attend scheduled tie in hand appointmen ts regularly. - Follow up with hematology for continue d evaluation of elevated ferritin. - Pursue yearly eye examinations for jose betes management. - Engage in selling personal items for f inancial stability if needed. - Seek assistance if experiencing any ps ychological distress or if circumstances change significantly. 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 Vitamin D deficiency Cholecystectomy planned Osteoarthritis History of colon cancer CKD (chronic kidney disease) Sarcoidosis Partial nontraumatic amputation of right foot PVD (peripheral vascular disease) Diabetic retinopathy Spherocytosis Skin cancer Peripheral neuropathy Spinal stenosis Renal stones Pulmonary sarcoidosis Diabetes Surgical History History of amputation of foot History of ureter repair H/O splenectomy S/P ureteral reimplantation History of surgical removal of pilonidal cyst History of tonsillectomy and adenoidectomy H/O right hemicolectomy Status post laser lithotripsy of ureteral calculus Hx of cholecystectomy Hx of colonoscopy Family History Mother Thyroid cancer Other Mental health disorder Social History Household Members: Friend(s) Housing: House Are you a primary human services care specialist to a significant other at home: No Do you presently have visiting nurse or other home services: No Alcohol intake: never Patient Tobacco Use Status: Never used Tobacco e-Cigarette/Vaping Use: Never Used Second Hand Smoke Exposure: No service: No Current occupational status: employed and retired Cognitive needs: No Hearing needs: No Vision needs: No Questionnaire PHQ-9 Over the last 2 weeks, how often have you been bothered by any of the following problems? 43277 - PHQ-9 Billing: Patient declined-do not bill Source: Developed by Drs. Ernesto Moscoso, Jodi Alvarado, Sam Deluna and colleagues, with an educational devon from [employer]. Thrive Questionnaire Date Thrive assessed: 12/28/24 I am a: Patient What is your living situation today?: I have a steady place to live Within the past 12 months, did the food you bought not last and you didn't have the money to get more?: Never true Within the past 12 months, did you worry whether your food would run out before you got money to buy more?: Never true Do you have trouble paying for medicines?: No Do you have trouble getting transportation to medical appointments?: No Do you have trouble paying your heating and electricity bill?: No Do you have trouble taking care of your child, family member or friend?: No Do you have trouble with day-to-day activities such as bathing, preparing meals, shopping, managing finances, etc.?: No Are you currently unemployed and looking for a job?: No Are you interested in more education?: No Please select the resources that you would like help with: Transportation Currently or been in a relationship where the following occur: No concerns reported THRIVE Score: 0 AUDIT C Alcohol Use Questionnaire (AUDIT-C) 1. How often do you have a drink containing alcohol?: Never 3. How often do you have six or more drinks on one occasion?: Never Total Score: 0 Score Reviewed/Action Taken: Yes CANDIS-7 AMB Questionnaire CANDIS-7 Date CANDIS - 7 assessed: 12/28/24 Feeling nervous, anxious, or on edge: 0 = Not at all Not being able to stop or control worryin = Not at all Worrying too much about different things: 0 = Not at all Trouble relaxin = Not at all Being so restless that it is hard to sit still: 0 = Not at all Becoming easily annoyed or irritable: 0 = Not at all Feeling afraid as if something awful might happen: 0 = Not at all Total CANDIS-7 score (0-4 normal; 5-9 mild; 10-14 moderate; 15-21 severe): 0 Source: Developed by Drs. Ernesto Moscoso, Jodi Alvarado, Sam Deluna and colleagues, with an educational devon from [employer]. CANDIS-7 Assessment Billing CANDIS-7 Assessment Tool: CANDIS-7 Assessment 84863 Physical exam (Primary Care) Vital Signs: Last Vital Signs Temp 98.8 F 12/28/24 15:37 Pulse 90 12/28/24 15:37 BP 118/66 12/28/24 15:37 Pulse Ox 95 12/28/24 15:37 Oxygen Delivery Method Room Air 12/28/24 15:37 BMI result Body Mass Index 28.6 Tobacco/Smoking Status: Tobacco use Status Tobacco use date assessed 12/28/24 12/28/24 15:38 Patient Tobacco Use Status Never used Tobacco 12/28/24 15:38 e-Cigarette/Vaping Use Never Used 12/28/24 15:38 Thrive Assessment: Date of Thrive Assessment Date Thrive assessed 12/28/24 12/28/24 15:38 Currently or been in a relationship where the following occur: No concerns reported Coding Level of Care Code Est Pt Level 3 (96080) Diagnoses Diabetes E11.9 Iron overload E83.19 Additional Codes CANDIS-7 Assessment Billing - CANDIS-7 Assessment Tool: CANDIS-7 Assessment 10480 ([id number]) Assessment & Plan Assessment & Plan (1) Diabetes: Code(s): E11.9 - Type 2 diabetes mellitus without complications Category: Medical (2) Iron overload: Code(s): E83.19 - Other disorders of iron metabolism Category: Medical Plan . Orders: Orders Hemoglobin A1c Today E11.9 - Type 2 diabetes mellitus without complications
--- OUTSIDE RECORDS SUMMARY | 2024-12-28 17:50 | XMS_ITS ---
Author Organization [facility] Address [address] [place] [address] Care Team Providers Care Superintendent Greens Name Role Phone Stuart Lozano Primary Care Provider Unav ailable Black, Marychuy Unavailable [phone] REASON FOR VISIT rx for AFO Encounters Encounter Location Date Provider Diagnosis [address] [address] 08/22/2024 Marychuy Black Plan Of Treatment Next Appt Details Provider Name:Marychuy Archer Warren , 03/15/2025 02:30:00 PM, [address] [place], [address], Progress Notes * Casey SEWELL KDOB:[birth year] (79 yo M)Acc No.[id number]:08/22/2024 Patient:?Casey SEWELL :1945???Age:79 Y???Sex:Male Address:[address] [place] [address] [place], [address] * true * Date:? Generated for Printi ng/Faxing/eTransmitting on:?12/28/2024 05:50 PM EDT
--- OUTSIDE RECORDS SUMMARY | 2024-12-28 17:50 | XMS_ITS | Clinical Summary ---
Author Organization [facility] ity Address [address] [place] [address] Care Team Providers Care Cutting Machine Tender Helper Name Role Phone Unavailable Primary Care Provider [...]
--- OUTSIDE RECORDS SUMMARY | 2024-12-28 17:50 | XMS_ITS | Patient Health Record ---
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 Problem 859985459219965 Preprocedural examination (Z01.818) Active confirmed Problem 748096872 History of colon cancer (Z85.038) Active confirmed Problem 00452325 Constipation, unspecified constipation type (K59.00) Active confirmed Problem Diverticulosis of colon (325143153) Diverticulosis of colon (K57.30) Active confirmed Problem History of gastrointestinal tract bypass (009946322) Hx of Billroth II operation (Z98.0) Active confirmed Vital Signs Temperature 97.7 degrees Fahrenheit 03/08/2024 Blood pressure diastolic 00 mm Hg 03/08/2024 Height 71.5 in 03/08/2024 Blood pressure systolic 000 mm Hg 03/08/2024 Weight 214 lbs 03/08/2024 BMI 29.43 kg/m2 03/08/2024 Encounters Encounter Location Date Provider Diagnosis [facility] [address] [place] [address] 03/08/2024 Ernesto uW History of adenomato us polyp of colon Z86.010 ; Preprocedural examination Z01.818 ; Encounter for screening for malignant neoplasm of colon Z12.11 ; History of colon cancer Z85.038 and Constipation, unspecified constipation type K59.00 [facility] [address] [place] [address] 09/12/2024 Ernesto Wu [facility] [address] [place] [address] 10/03/2024 Ernesto Wu Assessments Encounter Date Diagnosis [...] will be done with monitored anesthesia care. Jodrin was comfortable with this plan. Thank you [...] Provider Name:Ernesto Wu , 04/04/2025 02:20:00 PM, [address] [place] [address], [address], [place], [address], Insurance Providers Payer Name Payer Address Payer Phone Subscriber Number Group Number Insured Name Patient Relationship to Insured Coverage Start Date Coverage End Date [facility] [address] [place], [place] [id number] MELISSA ELDER Self - patient is the insured Medical (General) History Medical History History ICD Code Denies HI,CVA,Lung disease,renal disease IDDM Pulmonary sarcoidosis--inactive Spherocytosis Colonoscopy [...] surgery for stones with Jazlyn Liriano at [facility]
--- OUTSIDE RECORDS SUMMARY | 2024-12-28 17:50 | XMS_ITS ---
Author Organization [facility] [place] Address [address] [place] [address] Care Team Providers Care Director Of Corporate Sales Name Role Phone Stuart Lozano Primary Care Provider Unav ailable Black, Marychuy Unavailable [phone] Allergies Allergen (clinical drug ingredient) Drug/Non Drug Allergy documented on EMR Reaction Allergy Type Onset Date Status oxymetazoline 12 Hour Nasal [place] Unknown Drug Allergy Active Dust Mites Unknown [...] Twice a day for 30 days Active [place] 3-6-9 Not-Jd ng Timolol Maleate PF N [...] as directed Orally Active Vitamin D Active X56-Pxiprr Active Vitamin D3 Active Social History Tobacco [...] Ordered Date Performed Result Body Sit e 69525-SZCYNLK NAIL, 6 OR MORE 11/23/2024 N/A 23697-POSJ SKIN LESIONS, OVER 4 11/23/2024 N/A Encounters Encounter Location Date Provider Diagnosis [facility] [place] [address] [place] [address] 11/23/2024 Marychuy Black Type 1 diabetes mellitus [...] days Pending Test Test Name Order Date 12362-GKCEZHG NAIL, 6 OR MORE 11/23/2024 60649-DGPL SKIN LESIONS, OVER 4 11/23/19 25 Next Appt Details Follow Up: prn, Reason: Provider Name:Marychuy Kelley , 03/15/2025 02:30:00 PM, [address] [place] [address], [address], Procedure Notes * Category Sub-Category Detail Notes [...] use of a nail nipper and/or dremel-type laboratory apparatus glass grinder, to a more viable healthy nail [...] to maintain effectiveness in symptomatic relief - 76534 Keratoma Treatment Parring or Cutting o f [...] instrumentation by the physician of record - 09934 Progress Notes * Casey SEWELL KDOB:[birth year] (79 yo M)Acc No.[id number]:11/23/2024 Progress Note Patient:?Casey SEWELL Provider:?Marychuy Kelley DPM :1945???Age:79 Y???Sex:Male Daivd e:11/23/2024 Address:[address] [place] [address] [facility] Pcp:IVORY Mattson Subjective: * Chief Complaints: * [...] wound right ankle - saw minerva bonilla [facility]- chest pain 10/31[facility]- Possible Heart Attack/Stress Anxiety/Covid 07/31 * Family [...] no. ?Marital status: single. 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 * Medications:?AftvcuH00-Zecfh e Vitamin D3 Resveratrol Flax Seed Oil Vitamin B Complex - Tablet as directed Orally Berberine HCI 500 MG Capsule as directed Orally Vitamin D HumuLIN N Zinc Vitamin C 500 MG Capsule as directed Orally Once a day Turmeric AFO-Hinged as directed Wear Daily Taking Q78-Kewuyj Taking Vitamin D3 Taking Resveratrol Taking Flax [...] Release 1 tablet Orally Once a day [place] 3-6-9 Nattokinase 100 MG Capsule as directed [...] 1 tablet Orally Once a day Not-Taking/PRN [place] 3-6-9 Not-Taking/PRN Nattokinase 100 MG Capsule as [...] 30 days, 280, Refills 3.?? 3.?Tinea unguium?Procedure: 32740-BFDVSWA NAIL, 6 OR MORE * Procedures:?Debride Nail [...] use of a nail nipper and/or dremel-type laboratory apparatus glass grinder, to a more viable healthy nail [...] to maintain effectiveness in symptomatic relief - 52424.?Keratoma Treatment:?Parring or Cutting of Benign Hyperkeratotic Lesion(s)?(-57) [...] instrumentation by the physician of record - 77529.? * Procedure Codes:?64338 TRIM SKIN LESIONS, OVER 4, Modifiers: XS 85431 DEBRIDE NAIL, 6 OR MORE, Modifiers: XS [...] Kelley DPM Date:?2024 Generated for Alfredo logan/Lila/eTransmitting on:?12/28/2024 05:50 PM EDT History and Physical Notes * [...]
--- OUTSIDE RECORDS SUMMARY | 2024-12-28 17:51 | XMS_ITS | Clinical Summary ---
Author Organization [facility], Address [address] [place] [address] [place] [address] Phone Care Team Providers Care Graphite Disk Assembler Name Role Phone Stuart Will NP Primary Care Provider [phone] Allergies Active Allergy Reactions Criticality Noted Date [...] patient's age to complete this topic Insurance [place] [address] [address] Care Teams Graphite Disk Assembler Relationship Specialty Start Date End Date Stuart Will NP [address] [place] [address] PCP - General Nurse Practitioner 12/06/20
--- OUTSIDE RECORDS SUMMARY | 2024-12-28 17:51 | XMS_ITS | Patient Health Record ---
Author Organization [facility] Address [address] [place] [address] Care Team Providers Care Forklift Operator Name Role Phone Stuart Lozano Primary Care Provider Unav ailable Black, Marychuy Unavailable [phone] Allergies Allergen (clinical drug ingredient) Drug/Non Drug Allergy documented on EMR Reaction Allergy Type Onset Date Status oxymetazoline 12 Hour Nasal [place] Unknown Drug Allergy Active Dust Mites Unknown [...] Skin Lesion(s) (L85.1) 06/02/2018 Not-Taking Multivitamins Not-Jacek shellie Ascorbic Acid Not-Jacek shellie X72-Eezwkd Active Aspirin 81 MG 1 tablet Orally Once a day for 30 day(s) Not-Taking Vitamin D3 Active Resveratrol Active Lovastatin Not-Takin g Magnesium Not-Taking Flax Seeds - as directed Orally Not-Taking Aspirin 81 81 MG 1 tablet Orally Once a day Not-Taking [place] 3-6-9 Not-Taki ng Immunizations Vaccine Route Administration [...] Problem Acquired hammer toe of right foot (0362441322842087) Other hammer toe(s) (acquired), right foot (M20.41) Active confirmed Problem Acquired hammer toe of left foot (8588891921000700) Other hammer toe(s) (acquired), left foot (M20.42) Active confirmed Problem Non-pressure ulcer lower limb (488912771) Non-pressure chronic ulcer of other part of right foot limited to breakdown of skin (L97.511) Active confirmed Problem Polyneuropathy due to diabetes mellitus type I (052484768) 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 Problem Hammer toe (807300938) Hammer toe of left foot (M20.42) Active confirmed Problem 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 (159528806624964) Charcot foot due to diabetes mellitus (E11.610) Active confirmed Problem Unsteady gait (72231220) Unsteady gait (R26.81) Active confirmed Problem Ankle ulcer (756362117) Skin ulcer of right ankle, limited to breakdown of skin (L97.311) Active confirmed Problem Ulcer of toe of right foot (disorder) (05674137068442200) Skin ulcer of toe of right foot, limited to breakdown of skin (L97.511) Active confirmed Problem Acquired equinovarus deformity (10397835) 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) Active confirmed Problem 05693209121395923 Skin ulcer of toe of left foot, limited to breakdown of skin (L97.521) Active confirmed Vital Signs Blood pressure diastolic 65 mm Hg 11/23/2024 Height 5ft 11in in 11/23/2024 Blood pressure systolic 110 mm Hg 11/23/2024 Weight 215 lbs 11/23/2024 BMI 29.98 kg/m2 11/23/2024 Procedures Procedure Date Ordered Date Performed Result Body Sit e 01888-ZIDKRTI NAIL, 1-5 01/20/2024 N/A 17532-Jnzghtwe Plate 01/20/2024 N/A 61790-ANLM SKIN LESIONS, OVER 4 01/20/2024 N/A 48530-NBGFJUG NAIL, 6 OR MORE 05/11/2024 N/A 22941-FLTS SKIN LESIONS, OVER 4 05/11/2024 N/A 28170-VUCWEFB NAIL, 1-5 08/17/2024 N/A 18597-Smkuhzrg Plate 08/17/2024 N/A 56361-Rlcojwnh Plate Each Additional 08/17/2024 N/A 24027-KJUJ SKIN LESIONS, OVER 4 08/17/2024 N/A 65013-KNEMZYG NAIL, 6 OR MORE 11/23/2024 N/A 62865-PPPE SKIN LESIONS, OVER 4 11/23/2024 N/A Encounters Encounter Location Date Provider Diagnosis [address] [address] 01/20/2024 Marychuy Black Type 1 diabetes mellitus with diabetic polyneuropathy E10.42 ; Tinea unguium B35.1 and Ingrown nail L60.[address] [address] 05/11/2024 Marychuy Black Type 1 diabetes mellitus with diabetic polyneuropathy E10.42 and Tinea unguium B35.[address] [address] 08/17/2024 Marychuy Black Type 1 diabetes mellitus with diabetic polyneuropathy E10.42 ; Tinea unguium B35.1 ; Ingrown nail L60.0 and Skin ulcer of toe of left foot, limited to breakdown of skin L97.[address] [address] 11/23/2024 Marychuy Black Type 1 diabetes mellitus with diabetic polyneuropathy E10.42 ; Xerosis of skin L85.3 and Tinea unguium B35.[address] [address] 04/18/2024 Marychuy Black [address] [address] 08/22/2024 Marychuy Black [address] [address] 11/23/2024 Marychuy Black Assessments Encounter Date Diagnosis [...] Test Name Order Date Hemoglobin A1c 12/02/2015 18748-MYWSDID NAIL, 6 OR MORE 11/23/2024 16083-EDTVDKN NAIL, 6 OR MORE 05/11/2024 14891-HHWTQMT NAIL, 6 OR MORE 07/08/2023 86774-WSLQADW NAIL, 6 OR MORE 10/21/2023 18937-RCNNYPK NAIL, 6 OR MORE 12/02/2020 55925-IFIXNJQ NAIL, 6 OR MORE 03/13/2021 24862-MGHYDTV NAIL, 6 OR MORE 06/09/2021 95241-ICPVJVC NAIL, 6 OR MORE 09/08/2021 14478-SNGDCWE NAIL, 6 OR MORE 01/30/2022 09199-TTEAIPC NAIL, 6 OR MORE 06/22/2022 17409-LACXIOC NAIL, 6 OR MORE 09/28/2022 56234-EIHVOSK NAIL, 6 OR MORE 12/28/2022 22683-QTXCXTO NAIL, 6 OR MORE 04/05/2023 34802-EXBBWNF NAIL, 6 OR MORE 10/01/2011 88258-BYEAHUH NAIL, 6 OR MORE 12/03/2011 89525-SWQDQPZ NAIL, 6 OR MORE 03/03/2012 03156-KSUDIRR NAIL, 6 OR MORE 06/02/2012 05026-NBTXVFT NAIL, 6 OR MORE 11/03/2012 48047-BYIHAQA NAIL, 6 OR MORE 01/23/2013 25556-ISKJNJN NAIL, 6 OR MORE 04/03/2013 49291-QNOSUJY NAIL, 6 OR MORE 06/28/2013 35590-XVUBPWO NAIL, 6 OR MORE 09/13/2013 49446-YWISPES NAIL, 6 OR MORE 12/13/2013 70255-TMBYDQR NAIL, 6 OR MORE 03/22/2014 24238-OQTYQAI NAIL, 6 OR MORE 06/21/2014 13944-XSCKFHK NAIL, 6 OR MORE 09/20/2014 24560-AIHWHOK NAIL, 6 OR MORE 12/06/2014 33481-REUJOBB NAIL, 6 OR MORE 02/21/2015 29693-IHSLZXL NAIL, 6 OR MORE 05/13/2015 16067-PUSNRRH NAIL, 6 OR MORE 09/09/2015 21311-PPTAMJN NAIL, 6 OR MORE 12/02/2015 16461-DJZBMFK NAIL, 6 OR MORE 02/24/2016 91910-TJPEVPB NAIL, 6 OR MORE 06/01/2016 04153-IKCOPIT NAIL, 6 OR MORE 08/27/2016 70941-PNDXYCG NAIL, 6 OR MORE 12/07/2016 18648-SBKCGWK NAIL, 6 OR MORE 03/11/2017 39919-QJZSIAU NAIL, 6 OR MORE 06/24/2017 54670-ROMFBKJ NAIL, 6 OR MORE 09/27/2017 67469-EJEZCQS NAIL, 6 OR MORE 12/27/2017 99053-MCTHLOA NAIL, 6 OR MORE 06/02/2018 88274-ZQXEALB NAIL, 6 OR MORE 08/25/2018 49921-AHSLJVI NAIL, 6 OR MORE 11/24/2018 71250-XKTFUPP NAIL, 6 OR MORE 03/09/2019 60130-SSBGAHG NAIL, 6 OR MORE 06/05/2019 38578-PNSPZQZ NAIL, 6 OR MORE 09/18/2019 25586-FKRWAFJ NAIL, 6 OR MORE 03/11/2020 15510-SETMTTO NAIL, 6 OR MORE 06/13/2020 02842-FLTSJFF NAIL, 6 OR MORE 09/23/2020 42495-BNDVPBD NAIL, -5 01/20/2024 06854-IXZVSSN NAIL, -08/17/2024 89844-Ajdm Destruction, -14 09/08/2021 39083-Jcaz Destruction, 10-2406/09/2021 08979-Pxhc Destruction, -14 03/11/2020 24490-Haay Destruction, 10-2406/05/2019 79821-Dypy Destruction, 10-2409/18/2019 57497-Lrmj Destruction, 10-2403/09/2019 73120-Ftcb Destruction, 10-2405/13/2015 37540-Fcjp Destruction, 10-2402/21/2015 77723-Clur Destruction, 10-2412/06/2014 39843-Jfkv Destruction, 10-2409/20/2014 47672-Zsws Destruction, 10-2406/21/2014 93951-Fdix Destruction, 10-2403/22/2014 44560-Sdml Destruction, 10-2412/13/2013 26989-Uadh Destruction, 10-2409/13/2013 67198-Wsun Destruction, 10-2406/28/2013 68044-Gvhc Destruction, -04/03/2013 82039-Qauz Destruction, 10-2401/23/2013 98096-Hvhk Destruction, 10-2411/03/2012 06401-Codu Destruction, 10-2406/02/2012 37059-Wljr Destruction, 14 10/01/2011 02874-Xhqh Destruction, 10-2403/03/2012 14359-Tove Destruction, -14 12/03/2011 29852-Crunyhho Plate 03/03/2012 60266-Nhgeejpd Plate 12/03/2011 82357-Zzsflwrr Plate 06/02/2012 17417-Qdxuhqai Plate 01/23/2013 58152-Xcqsdkle Plate 04/03/2013 17215-Jebspgjz Plate 06/28/2013 12712-Dkzwqngg Plate 09/13/2013 68096-Ailhlqkh Plate 12/13/2013 87568-Ohafomuf Plate 03/22/2014 29947-Koqcyowy Plate 06/21/2014 34502-Umklfifs Plate 09/20/2014 73280-Simxdhux Plate 12/06/2014 04296-Iumnwgar Plate 02/21/2015 22442-Naphlurh Plate 05/13/2015 01573-Oidxqecw Plate 12/27/2017 84750-Yynohnro Plate 06/05/2019 23887-Scyopjjf Plate 11/24/2018 21847-Lfujzpwc Plate 03/09/2019 75742-Aogmctnm Plate 08/25/2018 33955-Gnerbjir Plate 09/18/2019 41130-Qxblxasi Plate 03/11/2020 83216-Oekebiby Plate 09/27/2017 71633-Sggpyjos Plate 12/07/2016 99126-Eyelcdyk Plate 08/27/2016 09149-Owyhgdzd Plate 06/01/2016 44360-Ujomckxr Plate 02/24/2016 86513-Fujbfmbj Plate 12/02/2015 47352-Weovczgb Plate 11/03/2012 37358-Zwcgzvds Plate 09/09/2015 28230-Qckaekot Plate 06/09/2021 28154-Wchyinzb Plate 06/13/2020 87918-Hengyrql Plate 09/08/2021 85100-Krpmmiht Plate 03/13/2021 50464-Uhcvhoto Plate 09/23/2020 18537-Pyeqrkqc Plate 01/30/2022 53924-Meepbbye Plate 06/22/2022 85411-Uztahlip Plate 08/17/2024 49139-Gkwzishe Plate 01/20/2024 46573-Tzwmrbdx Plate Each Additional 09/2022 67966-Nadfgfyq Plate Each Additional 04/2024 00964-Gevjsedx Plate Each Additional 99788-Bjhureim Plate Each Additional 76317-Qlulnlmy Plate Each Additional 12/2020 98770-Xfjkjjdw Plate Each Additional 63900-Kfsdgofs Plate Each Additional 17165-Fznnadeq Plate Each Additional 66116-Ktbbmztp Plate Each Additional 82831-Fhkjynmh Plate Each Additional 25436-Pysldxgk Plate Each Additional 94342-Nudscyng Plate Each Additional 29510-Pgrsasqd Plate Each Additional 96497-Glofpjot Plate Each Additional 17799-Hlvxcxmb Plate Each Additional 06/2019 02684-Xnrjrxan Plate Each Additional 10/2019 81669-Dsrgftdg Plate Each Additional 68265-Xtgyoikf Plate Each Additional 55927-Dlkyeepe Plate Each Additional 71293-Eaknonnw Plate Each Additional 12/2014 52892-Cfvyqhcy Plate Each Additional 69653-Pabvcpdh Plate Each Additional 87971-Xccshvzp Plate Each Additional 08/2014 42133-Lrhrzcpf Plate Each Additional 08/2014 86934-Ytmggeni Plate Each Additional 09/2014 75318-Ymgyrjjd Plate Each Additional 02/2014 05986-Aakxnwgm Plate Each Additional 01/2013 76011-Zgsrdspp Plate Each Additional 95948-Qarwyala Plate Each Additional 52826-Zjcvqtiz Plate Each Additional 94530-Qfvhjyuu Plate Each Additional 91853-Kdjgtpmz Plate Each Additional 38384- Debride <25 sq cm 06/13/2020 47256- Debride <25 sq cm 04/05/2023 26234 I&D ABSCESS- SIMPLE,SINGLE 013 95908 I&D ABSCESS- SIMPLE,SINGLE 013 86980-SVSP SKIN LESIONS, OVER 4 01/24/20 13 31949-TOWF SKIN LESIONS, OVER 4 11/03/19 13 73349-RKSJ SKIN LESIONS, OVER 4 04/03/20 13 24782-ZERM SKIN LESIONS, OVER 4 06/28/20 13 03905-XGWG SKIN LESIONS, OVER 4 09/13/20 13 16987-CSOL SKIN LESIONS, OVER 4 12/14/19 14 72388-GUNP SKIN LESIONS, OVER 4 03/22/20 14 02462-LEMO SKIN LESIONS, OVER 4 06/21/20 14 38242-JODV SKIN LESIONS, OVER 4 09/20/20 14 16080-BNTB SKIN LESIONS, OVER 4 12/06/19 15 65621-WMVH SKIN LESIONS, OVER 4 02/22/20 15 43745-EHCS SKIN LESIONS, OVER 4 05/13/20 15 17498-QDNX SKIN LESIONS, OVER 4 06/13/20 20 93526-HRNM SKIN LESIONS, OVER 4 09/23/20 20 30271-DIAU SKIN LESIONS, OVER 4 03/11/20 20 62389-HRJQ SKIN LESIONS, OVER 4 09/18/20 19 85003-BXTN SKIN LESIONS, OVER 4 03/09/20 19 17544-AJUB SKIN LESIONS, OVER 4 06/05/20 19 25302-VBZL SKIN LESIONS, OVER 4 11/24/19 19 94251-YGBP SKIN LESIONS, OVER 4 08/25/20 18 74755-UIHK SKIN LESIONS, OVER 4 12/28/19 18 92552-CKNS SKIN LESIONS, OVER 4 06/02/20 18 80249-KREB SKIN LESIONS, OVER 4 09/27/20 17 32633-XXDY SKIN LESIONS, OVER 4 06/24/20 17 68773-WPCF SKIN LESIONS, OVER 4 12/07/19 17 91047-OHDY SKIN LESIONS, OVER 4 03/11/20 17 25137-BHEB SKIN LESIONS, OVER 4 08/27/20 16 73114-MHMT SKIN LESIONS, OVER 4 06/01/20 16 67987-NNJY SKIN LESIONS, OVER 4 02/24/20 16 53398-QBPA SKIN LESIONS, OVER 4 12/02/19 16 67572-BLXC SKIN LESIONS, OVER 4 09/09/20 15 55030-XVXF SKIN LESIONS, OVER 4 04/05/20 23 86587-IZAT SKIN LESIONS, OVER 4 07/08/20 23 56469-YGWE SKIN LESIONS, OVER 4 12/29/19 23 21389-SYIQ SKIN LESIONS, OVER 4 09/28/20 44527-MMYW SKIN LESIONS, OVER 4 06/22/20 22 33391-HKYM SKIN LESIONS, OVER 4 01/31/20 22 79178-CGZI SKIN LESIONS, OVER 4 09/08/20 21 14219-FVMU SKIN LESIONS, OVER 4 06/09/20 21 49338-LYEN SKIN LESIONS, OVER 4 12/02/19 21 46821-BEGL SKIN LESIONS, OVER 4 03/13/20 58579-UXLA SKIN LESIONS, OVER 4 08/17/20 24 38156-LNOM SKIN LESIONS, OVER 4 11/23/19 56073-SPIP SKIN LESIONS, OVER 4 05/11/20 00374-EZIH SKIN LESIONS, OVER 4 01/20/20 24 23166-FRBH SKIN LESIONS, OVER 4 10/21/19 75783-XDRX SKIN LESIONS, 2 TO 4 06/02/20 12 23266-AHMS SKIN LESIONS, 2 TO 4 03/03/20 12 12806-JYER SKIN LESIONS, 2 TO 4 12/03/19 12 94238-NPQC SKIN LESIONS, 2 TO 4 10/01/20 11 Next Appt Details Provider Name:Marychuy Kelley , 03/15/2025 02:30:00 PM, [address] [place], [address], Insurance Providers Payer Name Payer Address Payer Phone Subscriber Number Group Number Insured Name Patient Relationship to Insured Coverage Start Date Coverage End Date [facility] [address] [place] [address] [id number] Casey Ulrich Self - patient is the [...] kidney disease 04/2020 Hospitalization History Reason Date(Month/Year) [facility]- Possible Heart Attack/Stress Anxiet y/Covid 07/31 [facility] Scan [facility]- chest pain 10/31 [facility]- Pressure wound right ankle - saw levar bonilla [facility]- chest pain 10/2015
--- OUTSIDE RECORDS SUMMARY | 2024-12-28 17:51 | XMS_ITS ---
Author Organization [facility] Address [address] [place] [address] Care Team Providers Care Certified Tower Climber Name Role Phone Stuart Lozano Primary Care Provider Unav ailable Black, Marychuy Unavailable [phone] REASON FOR VISIT Balance Encounters Encounter Location Date Provider Diagnosis [address] [address] 11/23/2024 Marychuy Black Plan Of Treatment Next Appt Details Provider Name:Marychuy Archer Warren , 03/15/2025 02:30:00 PM, [address] [place], [address], Progress Notes * KENANCasey FUNES KDOB:[birth year] (79 yo M)Acc No.[id number]:11/23/2024 Patient:?Casey SEWELL :1945???Age:79 Y???Sex:Male Address:[address] [place] [address], [address] * true * Date:? Generated for Printi doreen/Lila/eTransmitting on:?12/28/2024 05:50 PM EDT
--- OUTSIDE RECORDS SUMMARY | 2024-12-28 17:51 | XMS_ITS ---
Author Organization [facility] Address [address] [place] [address] Care Team Providers Care Technician Name Role Phone MARC HERNANDEZ Primary Care Provider Ernesto Beck [phone] REASON FOR VISIT left message with answering service Encounters Encounter Location Date Provider Diagnosis [facility] [address] [place] [address] 10/03/2024 Ernesto Wu Plan Of Treatment Next Appt Details Provider Name:Ernesto Wu , 04/04/2025 02:20:00 PM, [address], [address], [place], [address], Progress Notes * MELISSA HUNT KDOB:[birth year] (79 yo M)Acc No.[id number]:10/03/2024 Patient:?MELISSA HUNT :1945???Age:79 Y???Sex:Male Address:[address] [place] [address] [place] [address] * true * Date:? Generated for Printi doreen/Lila/eTransmitting on:?12/28/2024 05:51 PM EDT
--- OUTSIDE RECORDS SUMMARY | 2024-12-28 17:51 | XMS_ITS ---
Author Organization [facility] Address [address] [place] [address] Care Team Providers Care Street Contractor Name Role Phone MARC HERNANDEZ Primary Care Provider Ernesto Beck [phone] REASON FOR VISIT medication change. /procedure end of month/waiting on pt call back Encounters Encounter Location Date Provider Diagnosis [facility] [address] [facility] [address] [place] [address] 09/12/2024 Ernesto Wu Plan Of Treatment Next Appt Details Provider Name:Ernesto Wu , 04/04/2025 02:20:00 PM, [address] [facility], [address], [place], [address], Progress Notes * MELISSA HUNT KDOB:[birth year] (79 yo M)Acc No.[id number]:09/12/2024 Patient:?MELISSA HUNT :1945???Age:79 Y???Sex:Male Address:[address] [place] [address] [place] [address] * true * Date:? Generated for Printi doreen/Lila/eTransmitting on:?12/28/2024 05:50 PM EDT
--- OUTSIDE RECORDS SUMMARY | 2024-12-28 17:51 | XMS_ITS ---
Author Organization [facility] Address [address] [facility] [address] [place] [address] Care Team Providers Care Dry Chain Puller Name Role Phone MARC HERNANDEZ Primary Care Provider Ernesto Beck [phone] REASON FOR VISIT screening, hx polyps,hx colon ca Encounters Encounter Location Date Provider Diagnosis [facility] Outpatient [address] [place], [place] [id number] 10/09/2024 Ernesto Wu Plan Of Treatment Next Appt Details Provider Name:Ernesto Wu , 04/04/2025 02:20:00 PM, [address] [facility], [address], [place], [address], Progress Notes * MELISSA HUNT KDOB:[birth year] (79 yo M)Acc No.[id number]:10/09/2024 COLON WITH MAC Patient:?MELISSA HUNT Provider:?Ernesto Wu MD :1945???Age:79 Y???Sex:Male David e:10/09/2024 Address:[address] [place], [place] [id number] Pcp:MARC HERNANDEZ Subjective: * Chief Complaints: * [...] MD Date:? 024 Generated for Alfredo logan/Lila/Dakotaitting on:?12/28/2024 05:50 PM EDT
== END 2024-12-28 16:40 | disposition home or self-care (01) ==
LOC: HO.HMCC 15:34
PROVIDERS: PCP Nurse Practitioner Family; Visit Provider Nurse Practitioner Family
DX: E11.9 Type 2 diabetes mellitus without complications (principal); E83.19 Other disorders of iron metabolism

== ENCOUNTER → 2024-12-28 15:33 | Outpatient (BNVA) | payer BC, SELFPAY | PROVIDERS: PCP Nurse Practitioner Family; Visit Provider Nurse Practitioner Family | DX: E11.40 Type 2 diabetes mellitus with diabetic neuropathy, unspecified (principal); E83.19 Other disorders of iron metabolism | CPT/HCPCS: 96127 ==

== ENCOUNTER 2025-01-04 14:05 | Outpatient (REF) | payer BC, SELFPAY ==
--- NOTE | ~2025-01-04 | CT_ITS ---
EXAMINATION: CT CHEST WITH IV CONTRAST INDICATION: R06.02 - Shortness of breath COMPARISON: Comparison is made with the prior examination dated 09/09/2023. TECHNIQUE: Helical CT scan of the chest was performed following administration of intravenous contrast. Coronal and sagittal reformatted images were generated and reviewed. This CT exam was performed with one or more of the following dose reduction techniques: automated exposure control, adjustment of the mA and/or kV according to patient size, use of iterative reconstruction technique. DLP: 364 mGy-cm CHEST: THYROID: The thyroid is unremarkable. LUNGS: There is mild scarring at the lung bases. No focal airspace opacities or pulmonary nodules are identified. MEDIASTINUM: There is no mediastinal lymphadenopathy. WINSOME: There is no hilar lymphadenopathy. CARDIOVASCULATURE: The heart is normal in size. There is no pericardial effusion. The thoracic aorta is normal in caliber. DEGREE OF CORONARY CALCIFICATION: severe PLEURA: There is no pleural effusion. No pneumothorax. MAIN AIRWAYS: The mainstem bronchi and proximal branches are patent. AXILLA: There is no axillary lymphadenopathy. BONES AND SOFT TISSUES: There is severe degenerative disc disease of the spine. There is a healing fracture of the sternum. UPPER ABDOMEN: The visualized portions of the liver and adrenal glands are unremarkable. The patient is status post splenectomy and cholecystectomy. CT/CT chest w IV con IMPRESSION: 1. Mild scarring at the lung bases. The lungs are otherwise clear. 2. Healing fracture of the sternum. Clinical correlation is recommended. Electronically signed by: Ernesto Tracy MD 01/04/2025 03:09 PM EDT
[2025-01-04] MEDS: iohexoL 350 MG/ML 100 ML INFUS..BTL IV (14:56)
--- OUTSIDE RECORDS SUMMARY | 2025-01-04 17:44 | XMS_ITS ---
Author Organization [facility] Address [address] [place] [address] Care Team Providers Care Tank Farm Attendant Name Role Phone Stuart Lozano Primary Care Provider Unav ailable Black, Marychuy Unavailable [phone] Allergies Allergen (clinical drug ingredient) Drug/Non Drug Allergy documented on EMR Reaction Allergy Type Onset Date Status oxymetazoline 12 Hour Nasal [place] Unknown Drug Allergy Active Dust Mites Unknown [...] Twice a day for 30 days Active [place] 3-6-9 Not-Jd ng Timolol Maleate PF N [...] as directed Orally Active Vitamin D Active U44-Pgilnq Active Vitamin D3 Active Social History Tobacco [...] Ordered Date Performed Result Body Sit e 06443-LTJQQGM NAIL, 6 OR MORE 11/23/2024 N/A 20879-YOGQ SKIN LESIONS, OVER 4 11/23/2024 N/A Encounters Encounter Location Date Provider Diagnosis [facility] [address] [place] [address] 11/23/2024 Marychuy Black Type 1 diabetes mellitus [...] days Pending Test Test Name Order Date [id number]-POYRPNV NAIL, 6 OR MORE 11/23/2024 43733-JPNP SKIN LESIONS, OVER 4 11/23/19 25 Next Appt Details Follow Up: prn, Reason: Provider Name:Marychuy Kelley , 03/15/2025 02:30:00 PM, [address] [place] [address], [address], Procedure Notes * Category Sub-Category Detail Notes [...] use of a nail nipper and/or dremel-type pulp grinder, to a more viable healthy nail [...] to maintain effectiveness in symptomatic relief - 70280 Keratoma Treatment Parring or Cutting o f [...] instrumentation by the physician of record - 68989 Progress Notes * Casey SEWELL KDOB:[birth year] (79 yo M)Acc No.[id number]:11/23/2024 Progress Note Patient:?Casey SEWELL Provider:?Marychuy Kelley DPM :1945???Age:79 Y???Sex:Male David e:11/23/2024 Address:[address] [place] [address] [facility] Pcp:IVORY Mattson Subjective: * Chief Complaints: * [...] wound right ankle - saw minerva bonilla [facility]- chest pain 10/31[facility]- CT Scan [facility]- Bladder Scan [facility]- Possible Heart Attack/Stress Anxiety/Covid 07/31 * Family [...] no. ?Marital status: single. 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 * Medications:?ZlkgebW97-Sgwwi e Vitamin D3 Resveratrol Flax Seed Oil Vitamin B Complex - Tablet as directed Orally Berberine HCI 500 MG Capsule as directed Orally Vitamin D HumuLIN N Zinc Vitamin C 500 MG Capsule as directed Orally Once a day Turmeric AFO-Hinged as directed Wear Daily Taking J26-Tyjllk Taking Vitamin D3 Taking Resveratrol Taking Flax [...] Release 1 tablet Orally Once a day Berkeley 3-6-9 Nattokinase 100 MG Capsule as directed [...] 1 tablet Orally Once a day Not-Taking/PRN Berkeley 3-6-9 Not-Taking/PRN Nattokinase 100 MG Capsule as [...] 30 days, 280, Refills 3.?? 3.?Tinea unguium?Procedure: 03722-XELKWXA NAIL, 6 OR MORE * Procedures:?Debride Nail [...] use of a nail nipper and/or dremel-type pulp grinder, to a more viable healthy nail [...] to maintain effectiveness in symptomatic relief - 53250.?Keratoma Treatment:?Parring or Cutting of Benign Hyperkeratotic Lesion(s)?(-57) [...] instrumentation by the physician of record - 51254.? * Procedure Codes:?55263 TRIM SKIN LESIONS, OVER 4, Modifiers: XS 89435 DEBRIDE NAIL, 6 OR MORE, Modifiers: XS [...] Kelley DPM Date:?2024 Generated for Alfredo logan/Lila/eTransmitting on:?01/04/2025 05:43 PM EDT History and Physical Notes * [...]
--- OUTSIDE RECORDS SUMMARY | 2025-01-04 17:44 | XMS_ITS | Continuity of Care Document ---
Author Organization [facility] Address [address] [facility] [place] [address]- Care Team Providers Care Perforator Operator Name Role Phone Suman BUSTOS, Stuart Linton Primary Care Physician [phone] Encounter 12/22/24 - 12/29/24 [facility] [address], [address] [place] [address]- Attending Physician: Pablo Maddox Admitting Physician: Pablo Maddox Referring Physician: Pablo Maddox Encounter Type: OutPatient One Time Allergies, Adverse Reactions, Alerts No Known Allergies Immunizations Given and Recorded Vaccine Date Status Refusal Reason pneumococcal 23-valent vaccine 02/10/19 Given tetanus/diphtheria/pertussis, acel(Tdap) 1 11/11/18 Given tetanus/diphtheria/pertussis, acel(Tdap) 11/11/18 Given pneumococcal 13-valent vaccine 11/11/18 Given Influenza Virus Vaccine (oldterm) 2 09/19/18 Given 1Result Comment: [11/11/2018] [facility]: 58044-842-28 LOT: [id number] EXP: 07/15/19 2Admin Note: refused Problem List Condition Confirmation Course Effective Dates Status H ealth Status Informant Partial nontraumatic amputation of right foot Confirmed Active Articular gout Confirmed Active Bilateral hearing loss Confirmed Active Overweight (BMI 25.0-29.9) Confirmed Active 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 Constipation Confirmed Active Diabetes mellitus Confirmed Active Diabetes mellitus with neuropathy Confirmed Active DM retinopathy Confirmed Active Diverticulosis Confirmed Active Multiple chemical sensitivity syndrome Confirmed Active Fibromyalgia Confirmed Active H/O splenectomy Confirmed Active H/O sarcoidosis Confirmed 1984 Active History of colonoscopy 1 Confirmed Active Nephrolithiasis 2 Confirmed Active Cancer of transverse colon Confirmed Active Obese class I Confirmed Active Peripheral neuropathy Confirmed Active Spherocytosis 3 Confirmed 1975 Active Spinal stenosis of lumbar region Confirmed Active Tubular adenoma of colon Confirmed Active Venous stasis syndrome Confirmed Active 23036; repeat 2019 2CT scan 3S/P splenectomy Results Radiology Reports * Exam Date Time Procedure Performing Provider Status 12/21/24 8:16 AM US Renal Bladder Bennie Joseph; Au th (Verified) Notes: (US Renal Bladder) Reason For Exam: Calculus of kidney RESULT: US Renal Bladder US Renal Bladder INDICATION: 79 years old Male with Reason: Calculus of kidney. COMPARISON: Renal ultrasound exams 2019 through August 26, 2023, unenhanced CT abdomen and pelvisFebruary 2022. IMAGING TECHNIQUE: Grayscale and color Doppler ultrasound evaluation of the kidneys and bladder is performed. FINDINGS: Right kidney: 8.7 cm in length significantly smaller than the LEFT kidney. No cortical thinning.. No hydronephrosis. 0.4 cm echogenic focus in the lower pole correlating with the known nonobstructingcaliceal calculus. Partially exophytic cyst arising from the lower pole of the RIGHT kidney measuring 2 x 2 by 1.8 cm again noted.. No other focal lesion. Normal echogenicity. No perinephric collections. Left kidney: 10.5 cm in length. No hydronephrosis. 0.4 cm echogenic foci in the upper and lower pole of the LEFT kidney also seen on the prior ultrasound. Prior CT showed a 0.2 cm calculus in the upper pole of the LEFT kidney and a 0.2 cm catheter was in the lower pole LEFT kidney.. No other focal lesion. Normal echogenicity. No perinephric collections. Bladder: Normal. No stone, mass, wall thickening or debris. The calculated volume is 209 cc. Bilateral ureteral jets are not well-seen. Prostate gland: Prostate gland is not well seen. IMPRESSION: 1. Mild bilateral nonobstructive nephrolithiasis unchanged. No hydronephrosis. 2. RIGHT kidney is almost 2 cm smaller than the LEFT without cortical atrophy or abnormal echogenicity. Simple exophytic cyst lower pole RIGHT kidney again noted. 3. Unremarkable urinary bladder. 4. Prostate not well seen. Thank you for allowing me to participate in the care of this patient. WSN: [id number] Ordering Physician: Pablo Miguel Dictated By: Leonardo Rodrigues MD Dictated Date/Time: 12/22/24 9:11 am Reviewed By: Leonardo Rodrigues MD Signed By: Leonardo Rodrigues MD Signed Date/Time: 12/22/24 9:11 am Transcribed By: ARNOLDO Transcribed Date/Time: 12/22/24 9:07 am Social History Social History Type Response Smoking Status Never (less than 100 in lifetime) entered on: 09/19/18 Sex Sex Representation Male (finding) Patient Care team information Care Team Personnel Name: Maribel Bess RN Position: S RN Member Role: Primary Care Nurse Name: Stuart Will NP Position: Reference Physician Member Role: PCP Address: [address] [place] [address] Telecom: Name: Cherie Santana RN Position: S RN Member Role: Primary Care Nurse Name: Patsy May RN Position: S RN Member Role: Primary Care Nurse Care Team Related Persons Name: JOSE RAI Insurance Providers Guarantor name: MELISSA HUNT Health Plan Information #: 1 Payer: [employer] Member Number: [id number] Policy Number: NA Group Number: NA Health Plan Information #: 2 Payer: [employer] Member Number: [id number] Policy Number: NA Group Number: NA
--- OUTSIDE RECORDS SUMMARY | 2025-01-04 17:44 | XMS_ITS | Patient Health Record ---
Author Organization [facility] Address [address] [place] [address] Care Team Providers Care Business Law Teacher Name Role Phone MARC HERNANDEZ Primary Care Provider Ernesto Beck [phone] Allergies No Known Allergies Reason For Referral No Information Medications Medication SIG (Take, Route, Frequency, Duration) Notes Start Date End Date Status Dicyclomine HCl 10 MG 1 or 2 capsules Or ally Every 6 hours as needed for abdominal discomfort/cramps for 30 day(s) 10/17/2023 Active Cephalexin 500 MG TAKE 1 CAPSULE BY [facility] TWICE A DAY FOR 10 DAYS Oral [...] Problem Status W/U Status Risk Notes Problem 866974429 Encounter for screening for malignant neoplasm of colon (Z12.11) Active confirmed Problem 464695237 History of adenomatous polyp of colon (Z86.010) Active confirmed Problem 624539332 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 Problem 126128438163682 Preprocedural examination (Z01.818) Active confirmed Problem 630296697 History of colon cancer (Z85.038) Active confirmed Problem 96428569 Constipation, unspecified constipation type (K59.00) Active confirmed Problem Diverticulosis of colon (353258325) Diverticulosis of colon (K57.30) Active confirmed Problem 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) Active confirmed Vital Signs Temperature 97.7 degrees Fahrenheit 03/08/2024 Blood pressure diastolic 00 mm Hg 03/08/2024 Height 71.5 in 03/08/2024 Blood pressure systolic 000 mm Hg 03/08/2024 Weight 214 lbs 03/08/2024 BMI 29.43 kg/m2 03/08/2024 Encounters Encounter Location Date Provider Diagnosis [facility] [address] [place] [address] 03/08/2024 Ernesto Wu History of adenomato us polyp of colon Z86.010 ; Preprocedural examination Z01.818 ; Encounter for screening for malignant neoplasm of colon Z12.11 ; History of colon cancer Z85.038 and Constipation, unspecified constipation type K59.00 [facility] [address] [place] [address] 09/12/2024 Ernesto Wu [facility] [address] [place] [address] 10/03/2024 Ernesto Wu Assessments Encounter Date Diagnosis [...] Provider Name:Ernesto Wu , 04/04/2025 02:20:00 PM, [address] [place] [address], [address], [place], [address], Insurance Providers Payer Name Payer Address Payer Phone Subscriber Number Group Number Insured Name Patient Relationship to Insured Coverage Start Date Coverage End Date [facility] [address] [place], [place] [id number] MELISSA ELDER Self - patient is the insured Medical (General) History Medical History History ICD Code Denies RI,CVA,Lung disease,renal disease IDDM Pulmonary sarcoidosis--inactive Spherocytosis Colonoscopy [...] surgery for stones with Jazlyn Liriano at [facility]
--- OUTSIDE RECORDS SUMMARY | 2025-01-04 17:44 | XMS_ITS ---
Author Organization [facility] Address [address] [place] [address] Care Team Providers Care Health Inspector Name Role Phone Stuart Lozano Primary Care Provider Unav ailable Black, Marychuy Unavailable [phone] REASON FOR VISIT rx for AFO Encounters Encounter Location Date Provider Diagnosis [address] [address] 08/22/2024 Marychuy Black Plan Of Treatment Next Appt Details Provider Name:Marychuy Archer Warren , 03/15/2025 02:30:00 PM, [address] [place], [address], Progress Notes * Casey SEWELL KDOB:[birth year] (79 yo M)Acc No.[id number]:08/22/2024 Patient:?Casey SEWELL :1945???Age:79 Y???Sex:Male Address:[address] [place] [address] [place], [address] * true * Date:? Generated for Printi ng/Fadoeg/eTransmitting on:?01/04/2025 05:44 PM EDT
--- OUTSIDE RECORDS SUMMARY | 2025-01-04 17:44 | XMS_ITS | Clinical Summary ---
Author Organization [facility] Address [address] [place] [address] Care Team Providers Care Solutions Executive Cloud Sales Name Role Phone Unavailable Primary Care Provider [...] series) 2021 Cholesterol Screening (Lipid Panel) 09/12/2022 COVID-19 Vaccine ( - 2023-2 5 [...]
--- OUTSIDE RECORDS SUMMARY | 2025-01-04 17:44 | XMS_ITS ---
Author Organization [facility] Address [address] [facility] [address] [place] [address] Care Team Providers Care Secondary English Teacher Name Role Phone MARC HERNANDEZ Primary Care Provider Ernesto Beck [phone] REASON FOR VISIT screening, hx polyps,hx colon ca Encounters Encounter Location Date Provider Diagnosis [facility] [address] [place], [place] [phone] 10/09/2024 Ernesto Wu Plan Of Treatment Next Appt Details Provider Name:Ernesto Wu , 04/04/2025 02:20:00 PM, [address] [facility], [address], [place], [address], Progress Notes * MELISSA HUNT KDOB:[birth year] (79 yo M)Acc No.[id number]:10/09/2024 COLON WITH MAC Patient:?MELISSA HUNT Provider:?Ernesto Wu MD :1945???Age:79 Y???Sex:Male David e:10/09/2024 Address:[address] [place], [place] [id number] Pcp:MARC HERNANDEZ Subjective: * Chief Complaints: * [...] MD Date:? 024 Generated for Alfredo logan/Lila/Dakotaitting on:?01/04/2025 05:44 PM EDT
--- OUTSIDE RECORDS SUMMARY | 2025-01-04 17:45 | XMS_ITS ---
Author Organization [facility] Address [address] [place] [address] Care Team Providers Care Traffic Expert Name Role Phone MARC HERNANDEZ Primary Care Provider Ernesto Beck [phone] REASON FOR VISIT left message with answering service Encounters Encounter Location Date Provider Diagnosis [facility] [address] [place] [address] 10/03/2024 Ernesto Wu Plan Of Treatment Next Appt Details Provider Name:Ernesto Wu , 04/04/2025 02:20:00 PM, [address], [address], [place], [address], Progress Notes * MELISSA HUNT KDOB:[birth year] (79 yo M)Acc No.[id number]:10/03/2024 Patient:?MELISSA HUNT :1945???Age:79 Y???Sex:Male Address:[address] [place] [address] [place] [address] * true * Date:? Generated for Printi doreen/Lila/eTransmitting on:?01/04/2025 05:44 PM EDT
--- OUTSIDE RECORDS SUMMARY | 2025-01-04 17:45 | XMS_ITS | Clinical Summary ---
Author Organization [facility], Address [address] [place] [address] [place] [address] Phone Care Team Providers Care Walking Dragline Operator Name Role Phone Stuart Will NP Primary Care Provider [phone] Allergies Active Allergy Reactions Criticality Noted Date [...] patient's age to complete this topic [place] [address] [address] Care Teams Walking Dragline Operator Relationship Specialty Start Date End Date Stuart Will NP [address] [place] [address] PCP - General Nurse Practitioner 12/06/20
--- OUTSIDE RECORDS SUMMARY | 2025-01-04 17:45 | XMS_ITS ---
Author Organization [facility] Address [address] [place] [address] Care Team Providers Care Packaging Tech Name Role Phone Stuart Lozano Primary Care Provider Unav ailable Black, Marychuy Unavailable [phone] REASON FOR VISIT Balance Encounters Encounter Location Date Provider Diagnosis [address] [address] 11/23/2024 Marychuy Black Plan Of Treatment Next Appt Details Provider Name:Marychuy Archer Warren , 03/15/2025 02:30:00 PM, [address] [place], [address], Progress Notes * KENANCasey FUNES KDOB:[birth year] (79 yo M)Acc No.[id number]:11/23/2024 Patient:?Casey SEWELL :1945???Age:79 Y???Sex:Male Address:[address] [place] [address], [address] * true * Date:? Generated for Printi doreen/Lila/eTransmitting on:?01/04/2025 05:44 PM EDT
--- OUTSIDE RECORDS SUMMARY | 2025-01-04 17:45 | XMS_ITS ---
Author Organization [facility] Address [address] [place] [address] Care Team Providers Care Board Certified Behavioral Analyst Name Role Phone MARC HERNANDEZ Primary Care Provider Ernesto Beck [phone] REASON FOR VISIT medication change. /procedure end of month/waiting on pt call back Encounters Encounter Location Date Provider Diagnosis [facility] [address] [facility] [address] [place] [address] 09/12/2024 Ernesto Wu Plan Of Treatment Next Appt Details Provider Name:Ernesto Wu , 04/04/2025 02:20:00 PM, [address] [facility], [address], [place], [address], Progress Notes * MELISSA HUNT KDOB:[birth year] (79 yo M)Acc No.[id number]:09/12/2024 Patient:?MELISSA HUNT :1945???Age:79 Y???Sex:Male Address:[address] [place] [address] [place] [address] * true * Date:? Generated for Printi doreen/Lila/eTransmitting on:?01/04/2025 05:44 PM EDT
--- OUTSIDE RECORDS SUMMARY | 2025-01-04 17:45 | XMS_ITS | Patient Health Record ---
[facility] Address [address] [place] [address] Care Team Providers Care Health Management Consultant Name Role Phone Stuart Lozano Primary Care Provider Unav ailable Black, Marychuy Unavailable [phone] Allergies Allergen (clinical drug ingredient) Drug/Non Drug Allergy documented on EMR Reaction Allergy Type Onset Date Status oxymetazoline 12 Hour Nasal [place] Unknown Drug Allergy Active Dust Mites Unknown [...] Multivitamins Not-Jacek shellie Ascorbic Acid Not-Jacek shellie U53-Lgbzyp Active Aspirin 81 MG 1 tablet Orally Once a day for 30 day(s) Not-Taking Vitamin D3 Active Resveratrol Active Lovastatin Not-Takin g Magnesium Not-Taking Flax Seeds - as directed Orally Not-Taking Aspirin 81 81 MG 1 tablet Orally Once a day Not-Taking [place] 3-6-9 Not-Taki ng Immunizations Vaccine Route Administration [...] Problem Acquired hammer toe of right foot (7154878474669325) Other hammer toe(s) (acquired), right foot (M20.41) Active confirmed Problem Acquired hammer toe of left foot (6753240233312571) Other hammer toe(s) (acquired), left foot (M20.42) Active confirmed Problem Non-pressure ulcer lower limb (768819470) Non-pressure chronic ulcer of other part of right foot limited to breakdown of skin (L97.511) Active confirmed Problem Polyneuropathy due to diabetes mellitus type I (842423140) 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 Problem Hammer toe (512208767) Hammer toe of left foot (M20.42) Active confirmed Problem 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 (390224124459137) Charcot foot due to diabetes mellitus (E11.610) Active confirmed Problem Unsteady gait (58420065) Unsteady gait (R26.81) Active confirmed Problem Ankle ulcer (434912840) Skin ulcer of right ankle, limited to breakdown of skin (L97.311) Active confirmed Problem Ulcer of toe of right foot (disorder) (06101826022314263) Skin ulcer of toe of right foot, limited to breakdown of skin (L97.511) Active confirmed Problem Acquired equinovarus deformity (42063763) 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) Active confirmed Problem 32937649374113939 Skin ulcer of toe of left foot, limited to breakdown of skin (L97.521) Active confirmed Vital Signs Blood pressure diastolic 65 mm Hg 11/23/2024 Height 5ft 11in in 11/23/2024 Blood pressure systolic 110 mm Hg 11/23/2024 Weight 215 lbs 11/23/2024 BMI 29.98 kg/m2 11/23/2024 Procedures Procedure Date Ordered Date Performed Result Body Sit e 00979-TACSRJG NAIL, 1-5 01/20/2024 N/A 74414-Xvsufcks Plate 01/20/2024 N/A 49287-TXEU SKIN LESIONS, OVER 4 01/20/2024 N/A 12994-EBJWNXH NAIL, 6 OR MORE 05/11/2024 N/A 44576-ALHQ SKIN LESIONS, OVER 4 05/11/2024 N/A 11506-CNARDDN NAIL, 1-5 08/17/2024 N/A 46936-Uydnijue Plate 08/17/2024 N/A 02119-Wiqigoee Plate Each Additional 08/17/2024 N/A 13265-JFJA SKIN LESIONS, OVER 4 08/17/2024 N/A 58414-BRKSPRU NAIL, 6 OR MORE 11/23/2024 N/A 68698-RNTK SKIN LESIONS, OVER 4 11/23/2024 N/A Encounters Encounter Location Date Provider Diagnosis [address] [address] 01/20/2024 Marychuy Black Type 1 diabetes mellitus with diabetic polyneuropathy E10.42 ; Tinea unguium B35.1 and Ingrown nail L60.[address] [address] 05/11/2024 Marychuy Black Type 1 diabetes mellitus with diabetic polyneuropathy E10.42 and Tinea unguium B35.[address] [address] 08/17/2024 Marychuy Black Type 1 diabetes mellitus with diabetic polyneuropathy E10.42 ; Tinea unguium B35.1 ; Ingrown nail L60.0 and Skin ulcer of toe of left foot, limited to breakdown of skin L97.[address] [address] 11/23/2024 Marychuy Black Type 1 diabetes mellitus with diabetic polyneuropathy E10.42 ; Xerosis of skin L85.3 and Tinea unguium B35.[address] [address] 04/18/2024 Marychuy Black [address] [address] 08/22/2024 Marychuy Black [address] [address] 11/23/2024 Marychuy Black Assessments Encounter Date Diagnosis [...] Test Name Order Date Hemoglobin A1c 12/02/2015 88213-NHNLDWQ NAIL, 6 OR MORE 11/23/2024 96633-VMURYDK NAIL, 6 OR MORE 05/11/2024 07521-LZAEKKV NAIL, 6 OR MORE 07/08/2023 64984-GZZXRGT NAIL, 6 OR MORE 10/21/2023 24358-EQZXFJQ NAIL, 6 OR MORE 12/02/2020 18255-VNQSECL NAIL, 6 OR MORE 03/13/2021 73319-YRIZIQJ NAIL, 6 OR MORE 06/09/2021 42557-TJOZZGI NAIL, 6 OR MORE 09/08/2021 54809-DOAVAGS NAIL, 6 OR MORE 01/30/2022 72086-EWWZVDL NAIL, 6 OR MORE 06/22/2022 19068-QBXALKM NAIL, 6 OR MORE 09/28/2022 67437-NBPIWXE NAIL, 6 OR MORE 12/28/2022 12065-CXFEWSZ NAIL, 6 OR MORE 04/05/2023 28213-NHWLEEW NAIL, 6 OR MORE 10/01/2011 94507-JOXQZUQ NAIL, 6 OR MORE 12/03/2011 47055-VXTFKXZ NAIL, 6 OR MORE 03/03/2012 59819-VVOSWKT NAIL, 6 OR MORE 06/02/2012 59285-NIZMSEG NAIL, 6 OR MORE 11/03/2012 42602-WUKFOVW NAIL, 6 OR MORE 01/23/2013 46911-UISCWBL NAIL, 6 OR MORE 04/03/2013 74943-GIZCGHS NAIL, 6 OR MORE 06/28/2013 19121-AXZBALB NAIL, 6 OR MORE 09/13/2013 54883-KHADETF NAIL, 6 OR MORE 12/13/2013 09620-FAOFZDZ NAIL, 6 OR MORE 03/22/2014 65595-SEQVASE NAIL, 6 OR MORE 06/21/2014 70030-RLWUWPR NAIL, 6 OR MORE 09/20/2014 50995-ZDFFVGE NAIL, 6 OR MORE 12/06/2014 56452-GQMVALG NAIL, 6 OR MORE 02/21/2015 01772-HFKQVZB NAIL, 6 OR MORE 05/13/2015 85891-OSMZYOR NAIL, 6 OR MORE 09/09/2015 79135-DQWMNKD NAIL, 6 OR MORE 12/02/2015 39852-KRRGMII NAIL, 6 OR MORE 02/24/2016 67736-IXEZGOI NAIL, 6 OR MORE 06/01/2016 46749-UZLHFNZ NAIL, 6 OR MORE 08/27/2016 37576-FNTITYA NAIL, 6 OR MORE 12/07/2016 86908-AJKIVQZ NAIL, 6 OR MORE 03/11/2017 76514-HOYUJHD NAIL, 6 OR MORE 06/24/2017 26478-TONHAQH NAIL, 6 OR MORE 09/27/2017 77341-OPGRXLR NAIL, 6 OR MORE 12/27/2017 85930-WJNLJEU NAIL, 6 OR MORE 06/02/2018 51331-QFYUAGC NAIL, 6 OR MORE 08/25/2018 92651-ZAQXQPK NAIL, 6 OR MORE 11/24/2018 09058-RCSDVKI NAIL, 6 OR MORE 03/09/2019 04352-CVTCSMY NAIL, 6 OR MORE 06/05/2019 41952-YMVVRRF NAIL, 6 OR MORE 09/18/2019 49346-VAXIIWK NAIL, 6 OR MORE 03/11/2020 77113-KFRMRAN NAIL, 6 OR MORE 06/13/2020 01652-ZXTYTDT NAIL, 6 OR MORE 09/23/2020 23853-WJHMPHN NAIL, -5 01/20/2024 61976-FUUVDKZ NAIL, -08/17/2024 60539-Mhyp Destruction, -14 09/08/2021 03726-Ysuv Destruction, 10-2406/09/2021 53975-Umbv Destruction, -14 03/11/2020 35770-Fjrw Destruction, 10-2406/05/2019 53495-Ynkp Destruction, 10-2409/18/2019 92659-Oyxy Destruction, 10-2403/09/2019 54560-Csos Destruction, 10-2405/13/2015 19356-Szaa Destruction, 10-2402/21/2015 55262-Tjvr Destruction, 10-2412/06/2014 80613-Vkzq Destruction, 10-2409/20/2014 69210-Nzba Destruction, 10-2406/21/2014 49804-Qjhb Destruction, 10-2403/22/2014 07235-Ragn Destruction, 10-2412/13/2013 83926-Rfdq Destruction, 10-2409/13/2013 55769-Cpfe Destruction, 10-2406/28/2013 45547-Njmq Destruction, -04/03/2013 46507-Ecqv Destruction, 10-2401/23/2013 81437-Jhgs Destruction, 10-2411/03/2012 68028-Nkyz Destruction, 10-2406/02/2012 89324-Hnmb Destruction, 14 10/01/2011 65174-Gwcl Destruction, 10-2403/03/2012 80668-Mhgd Destruction, -14 12/03/2011 24355-Wnqjkqer Plate 03/03/2012 97962-Lragdtyb Plate 12/03/2011 37389-Bwmhlrog Plate 06/02/2012 48825-Jdhaulea Plate 01/23/2013 29513-Qbuxmepp Plate 04/03/2013 86541-Cnopccnr Plate 06/28/2013 10745-Ftmyftqz Plate 09/13/2013 44057-Fdzoljkj Plate 12/13/2013 53149-Ftioxxhh Plate 03/22/2014 17771-Ppzgyjqe Plate 06/21/2014 79837-Upntozsr Plate 09/20/2014 70248-Xabgeqrc Plate 12/06/2014 76039-Enijvgms Plate 02/21/2015 76101-Mhpwzeeu Plate 05/13/2015 95413-Gsbknlbz Plate 12/27/2017 76403-Hljdtfdt Plate 06/05/2019 84980-Wtjnwkul Plate 11/24/2018 86537-Tvltzczg Plate 03/09/2019 36027-Xpcwpwdx Plate 08/25/2018 38653-Oczpnzcn Plate 09/18/2019 50356-Yubkwxzh Plate 03/11/2020 00006-Xmuealba Plate 09/27/2017 66376-Qbfrmazp Plate 12/07/2016 94336-Vftzxbqh Plate 08/27/2016 44588-Cvubdrza Plate 06/01/2016 92145-Rhudroku Plate 02/24/2016 27776-Unvrcsgs Plate 12/02/2015 19436-Ovxaqvre Plate 11/03/2012 67345-Boffruch Plate 09/09/2015 38877-Qcvqqwfx Plate 06/09/2021 09383-Guzezpib Plate 06/13/2020 78213-Fiahbhxs Plate 09/08/2021 94841-Wzgcpmst Plate 03/13/2021 44504-Ywepdlrn Plate 09/23/2020 05455-Hryybibe Plate 01/30/2022 12273-Cxebgbgq Plate 06/22/2022 08621-Oxltoees Plate 08/17/2024 80040-Unwjlvts Plate 01/20/2024 12607-Ijwvakfz Plate Each Additional 09/2022 87741-Saueujwf Plate Each Additional 04/2024 05303-Sfvbokli Plate Each Additional 80532-Beomtmtp Plate Each Additional 42558-Qqhehtbj Plate Each Additional 12/2020 61263-Mpabzcje Plate Each Additional 33368-Yabcdlyt Plate Each Additional 64915-Blqgwqgg Plate Each Additional 38424-Naelfyem Plate Each Additional 35233-Jdqndvep Plate Each Additional 95887-Lqimfdwg Plate Each Additional 96673-Jbfxjqrk Plate Each Additional 21775-Sgwuybun Plate Each Additional 30327-Kjultuxf Plate Each Additional 81877-Cpzjswgr Plate Each Additional 06/2019 26030-Dpeeauew Plate Each Additional 10/2019 92483-Zrrthnrl Plate Each Additional 07080-Wbdcnikx Plate Each Additional 26066-Fholagho Plate Each Additional 53551-Nkmmbphu Plate Each Additional 12/2014 90032-Nwbugeqa Plate Each Additional 42387-Vqbunpns Plate Each Additional 91908-Kmfljrba Plate Each Additional 08/2014 44590-Bbanmjuf Plate Each Additional 08/2014 25884-Qsuthslp Plate Each Additional 09/2014 29571-Fhafugby Plate Each Additional 02/2014 97968-Xursfkhe Plate Each Additional 01/2013 23580-Nlzkqfob Plate Each Additional 81360-Zeqwcnwa Plate Each Additional 67838-Cirwalzl Plate Each Additional 85555-Lvcfoctn Plate Each Additional 20142-Wmhqrrkk Plate Each Additional 96527- Debride <25 sq cm 06/13/2020 95605- Debride <25 sq cm 04/05/2023 30826 I&D ABSCESS- SIMPLE,SINGLE 013 78394 I&D ABSCESS- SIMPLE,SINGLE 013 44310-SZWS SKIN LESIONS, OVER 4 01/24/20 13 58703-DQOF SKIN LESIONS, OVER 4 11/03/19 13 41295-LCVX SKIN LESIONS, OVER 4 04/03/20 13 92081-ITMM SKIN LESIONS, OVER 4 06/28/20 13 35988-QLNB SKIN LESIONS, OVER 4 09/13/20 13 73801-CDDF SKIN LESIONS, OVER 4 12/14/19 14 87437-EECA SKIN LESIONS, OVER 4 03/22/20 14 88684-DDLI SKIN LESIONS, OVER 4 06/21/20 14 94776-PXEQ SKIN LESIONS, OVER 4 09/20/20 14 01243-RPPK SKIN LESIONS, OVER 4 12/06/19 15 63978-YKXB SKIN LESIONS, OVER 4 02/22/20 15 24095-SECS SKIN LESIONS, OVER 4 05/13/20 15 62351-FWJR SKIN LESIONS, OVER 4 06/13/20 20 41937-EDMT SKIN LESIONS, OVER 4 09/23/20 20 24910-QDJS SKIN LESIONS, OVER 4 03/11/20 20 24174-NKHH SKIN LESIONS, OVER 4 09/18/20 19 00620-QLFN SKIN LESIONS, OVER 4 03/09/20 19 12252-LTDH SKIN LESIONS, OVER 4 06/05/20 19 73043-APSI SKIN LESIONS, OVER 4 11/24/19 19 56501-ICZN SKIN LESIONS, OVER 4 08/25/20 18 13698-SLUJ SKIN LESIONS, OVER 4 12/28/19 18 37886-MGMU SKIN LESIONS, OVER 4 06/02/20 18 46466-PJBU SKIN LESIONS, OVER 4 09/27/20 17 24384-LLGA SKIN LESIONS, OVER 4 06/24/20 17 14501-NOAZ SKIN LESIONS, OVER 4 12/07/19 17 19144-XESB SKIN LESIONS, OVER 4 03/11/20 17 09702-AFEQ SKIN LESIONS, OVER 4 08/27/20 16 48823-ZYOE SKIN LESIONS, OVER 4 06/01/20 16 69379-KUZZ SKIN LESIONS, OVER 4 02/24/20 16 89793-GZZE SKIN LESIONS, OVER 4 12/02/19 16 82950-MLZL SKIN LESIONS, OVER 4 09/09/20 15 70400-TCLU SKIN LESIONS, OVER 4 04/05/20 23 95366-UHQH SKIN LESIONS, OVER 4 07/08/20 23 13873-JVXG SKIN LESIONS, OVER 4 12/29/19 23 13441-JFJG SKIN LESIONS, OVER 4 09/28/20 78492-DGYI SKIN LESIONS, OVER 4 06/22/20 22 34549-GVIH SKIN LESIONS, OVER 4 01/31/20 22 96616-QMIX SKIN LESIONS, OVER 4 09/08/20 21 09764-MCRG SKIN LESIONS, OVER 4 06/09/20 21 45377-USYM SKIN LESIONS, OVER 4 12/02/19 21 27238-OAMO SKIN LESIONS, OVER 4 03/13/20 28163-ECCA SKIN LESIONS, OVER 4 08/17/20 24 18476-RZZH SKIN LESIONS, OVER 4 11/23/19 07484-JGCL SKIN LESIONS, OVER 4 05/11/20 86004-GOOV SKIN LESIONS, OVER 4 01/20/20 24 01810-QSUM SKIN LESIONS, OVER 4 10/21/19 74054-SXFW SKIN LESIONS, 2 TO 4 06/02/20 12 50927-ZXRH SKIN LESIONS, 2 TO 4 03/03/20 12 15693-RIZM SKIN LESIONS, 2 TO 4 12/03/19 12 24976-BZAS SKIN LESIONS, 2 TO 4 10/01/20 11 Next Appt Details Provider Name:Marychuy Kelley , 03/15/2025 02:30:00 PM, [address] [place], [address], Insurance Providers Payer Name Payer Address Payer Phone Subscriber Number Group Number Insured Name Patient Relationship to Insured Coverage Start Date Coverage End Date [facility] [address] [place] [address] [phone] [id number] Casey Ulrich Self - patient is the [...] kidney disease 04/2020 Hospitalization History Reason Date(Month/Year) [facility]- Possible Heart Attack/Stress Anxiet y/Covid 07/31 [facility]- Bladder Scan [facility]- [facility] Scan [facility]- chest pain 10/31 [facility]- Pressure wound right ankle - saw levar bonilla [facility]- chest pain 10/2015
== END 2025-01-04 14:06 | disposition home or self-care (01) ==
LOC: HO.CT 14:05
PROVIDERS: PCP Nurse Practitioner Family; Visit Provider Nurse Practitioner Family
DX: R06.02 Shortness of breath (principal)
CPT/HCPCS: 71260; Q9967

== ENCOUNTER → 2025-01-04 14:07 | Outpatient (BNV) | payer BC, SELFPAY | PROVIDERS: PCP Nurse Practitioner Family; Visit Provider Radiology Diagnostic Radiology | DX: R06.02 Shortness of breath (principal) | CPT/HCPCS: 71260 ==

== ENCOUNTER 2025-01-12 16:38 | Emergency (ER) | payer BC, SELFPAY ==
--- NOTE | ~2025-01-12 | XR_ITS ---
CLINICAL HISTORY: sob 1 view chest x-ray Comparison: Chest x-ray from 09/19/2024 Findings: Emphysematous changes are redemonstrated. No consolidation, pneumothorax, or pleural effusion in this portable study. Imaged mediastinum and imaged osseous structures are unremarkable for technique. IMPRESSION: No consolidation. This document has been electronically signed by: Oneil Dumont MD on 01/12/2025 22:44:53
--- NOTE | 2025-01-12 16:39 | ECG_ITS ---
Test Reason : CHEST PAIN Blood Pressure : */* mmHG Vent. Rate : 95 BPM Atrial Rate : 95 BPM P-R Int : 158 ms QRS Dur : 86 ms QT Int : 358 ms P-R-T Axes : 34 -39 95 degrees QTcB Int : 449 ms Normal sinus rhythm Left axis deviation Possible Lateral infarct , age undetermined Abnormal ECG When compared with ECG of 29-Sep-2024 17:50, Borderline criteria for Lateral infarct are now Present Referred By: Generic ED Physician Electronically Signed By: STEVE GRIDER
--- NOTE | 2025-01-12 16:51 | ED.GENADULT ---
HPI - General Adult General Chief complaint: Chest Pain Stated complaint: CP dizziness Time Seen by Provider: 01/12/25 22:17 Source: patient Mode of arrival: ambulatory Limitations: no limitations History of Present Illness ED Provider: HPI narrative: Patient has been having shortness a breath for more than 3 months noticed chest pressure-like feeling at 15:00 patient had CTA of coronary artery showed calcification last week. Patient has been taking aspirin since then lasted for about 15 minutes no chest pressure feeling at this time no radiation of the pain no increased shortness a breath patient has had 2 sets of cardiac enzymes negative EKG without any ischemic changes Related Data Home Medications ?Medication ?Instructions ?Recorded ?Confirmed zinc 50 mg capsule 50 mg PO DAILY 08/13/20 12/28/24 vitamin B complex 1 cap PO DAILY 10/14/20 12/28/24 berberine-herbal comb no.18 capsule 500 cap PO BID 12/31/22 12/28/24 resvertrol 06/01/23 12/28/24 ascorbate calcium (vitamin C) 500 1.5 g PO DAILY 07/07/23 12/28/24 mg tablet cholecalciferol (vitamin D3) 100 1,200 unit PO DAILY 09/27/23 12/28/24 mcg (4,000 unit) capsule latanoprost 0.005 % eye drops 1 drp ophthalmic (eye) QPM 03/21/24 12/28/24 alpha lipoic acid 200 mg capsule 200 mg PO BID 05/23/24 12/28/24 turmeric (bulk) 95 % powder 95 ea miscellaneous DAILY 07/24/24 12/28/24 (Curcumin) dorzolamide 2 % eye drops 2 drp ophthalmic (eye) DAILY 10/02/24 12/28/24 insulin NPH isoph U-100 human 100 30 unit subcut BID diabetes 12/28/24 12/28/24 unit/mL subcutaneous suspension (Humulin N NPH U-100 Insulin (isophane susp)) Previous Rx's ?Medication ?Instructions ?Recorded blood-glucose sensor (FreeStyle #6 ea 04/26/24 Nilsa 3 Sensor device) leg brace (Ankle Brace) #1 ea 06/28/24 blood sugar diagnostic (Contour #450 ea 09/01/24 Test Strips) insulin syringe-needle U-100 1 mL #200 ea 09/01/24 30 gauge x 1/2 (BD Insulin Syringe Ultra-Fine) Allergies Allergy/AdvReac Type Severity Reaction Status Date / Time penicillamine Allergy Unknown unknown Verified 01/12/25 16:57 Review of Systems Review of Systems: Yes all other systems are reviewed and are negative [facility] Past Medical History Medical History BPH (benign prostatic hyperplasia) Urethral stricture Left foot drop 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 Vitamin D deficiency Cholecystectomy planned Osteoarthritis History of colon cancer CKD (chronic kidney disease) Sarcoidosis Partial nontraumatic amputation of right foot PVD (peripheral vascular disease) Diabetic retinopathy Spherocytosis Skin cancer Peripheral neuropathy Spinal stenosis Renal stones Pulmonary sarcoidosis Diabetes Surgical History History of amputation of foot History of ureter repair H/O splenectomy S/P ureteral reimplantation History of surgical removal of pilonidal cyst History of tonsillectomy and adenoidectomy H/O right hemicolectomy Status post laser lithotripsy of ureteral calculus Hx of cholecystectomy Hx of colonoscopy Family History Family History Mother Thyroid cancer Other Mental health disorder Social History Social History Household Members: Friend(s) Housing: House Are you a primary child care giver to a significant other at home: No Do you presently have visiting nurse or other home services: No Alcohol intake: never Patient Tobacco Use Status: Never used Tobacco e-Cigarette/Vaping Use: Never Used Second Hand Smoke Exposure: No Advance Directives Date on File: 12/02/23 service: No Current occupational status: employed and retired Cognitive needs: No Hearing needs: No Vision needs: No Physical Exam ED Vital Signs: Vital Signs - 24 hr 01/12/25 16:52 01/12/25 22:10 01/12/25 23:06 Temperature 97.4 F 97.6 F 97.6 F Pulse Rate 104 H 75 75 Respiratory Rate 18 16 16 Blood Pressure 135/71 130/54 L 130/54 L Pulse Oximetry 100 100 100 Oxygen Delivery Method Room Air Room Air Room Air BMI result Body Mass Index 28.0 Appearance: Alert. Oriented X3. No acute distress. Eyes: PERRLA, No Nystagmus ENT: Pharynx normal. Oral Mucosa moist Neck: Normal inspection. Neck supple. CVS: Normal heart rate and rhythm. Pulses normal. Respiratory: No respiratory distress. Equal air entry bilateral, no wheezing/rales/rhonchi Abdomen: Soft and nontender. Bowel sounds are present, no mass palpable, no CVA tenderness Skin: Skin warm and dry. Normal skin color. Normal skin turgor. Extremities: No lower extremity edema. No calf tenderness Neuro: Oriented X 3. No motor deficit. No sensory deficit.No cerebellar signs , cranial nerves II-XII intact Course Course Course Narrative: RME performed by Mylene Horvath PA-C. Patient is a 79 year old assigned male at presenting to the emergency department with chest pain. Detailed physical exam and review of systems are deferred to the billing clinician. EKG, labs, imaging, and swabs ordered. Patient placed back in the waiting room pending room availability and results. Medical Decision Making Medical Decision Making MDM Narrative: Patient's chest pressure but without any ischemic changes 2 sets of cardiac enzymes negative patient advised to follow with supervisor cutting department for further evaluation Differential Diagnosis Differential Diagnoses: The differential diagnosis associated with the presentation includes ACS/atypical chest pain/ Lab Data [facility] Lab Attestation statement: I reviewed the patient's lab results. 01/12/25 17:12 01/12/25 17:12 Labs: Lab Results 01/12/25 01/12/25 Range/Units 17:12 19:02 WBC 13.0 H (4.8-10.8) X10*3/uL RBC 4.93 (4.60-5.80) X10*6/uL Hgb 15.4 (14.0-18.0) g/dl Hct 42.2 (42.0-52.0) % MCV 85.6 (80.0-98.0) fL MCH 31.2 (27.0-33.0) pg MCHC 36.5 H (31.0-36.0) g/dl RDW 13.1 (11.0-16.0) % Plt Count 367 (160-400) X10*3/uL MPV 11.0 (9.4-12.4) fL Immature Gran % (Auto) Cancelled Neut % (Auto) Cancelled Lymph % (Auto) Cancelled Waldo % (Auto) Cancelled Eos % (Auto) Cancelled Baso % (Auto) Cancelled Lymph # (Auto) Cancelled Waldo # (Auto) Cancelled Eos # (Auto) Cancelled Baso # (Auto) Cancelled Abs Immat Gran (auto) Cancelled Absolute Neuts (auto) Cancelled Absolute Nucleated RBC 0.000 (0.0-0.012) X10*3/uL Nucleated RBC % (auto) 0.0 (0.0-0.2) /100WBC Neutrophils % (Manual) 29 L (45-73) % Band Neutrophils % 2 L (3-5) % Lymphocytes % (Manual) 37 (20-40) % Atypical Lymphs % (Man) 9 H (0-6) % Monocytes % (Manual) 6 (2-11) % Eosinophils % (Manual) 16 H (0-4) % Basophils % (Manual) 1 (0-2) % Abs Neuts (Manual) 4.0 (2.0-8.3) X10*3/uL Lymphocytes # (Manual) 4.8 (1.2-4.9) X10*3/uL Atyp Lymphs # (Manual) 1.2 x10*3/uL Monocytes # (Manual) 0.8 (0.1-1.2) X10*3/uL Eosinophils # (Manual) 2.1 H (0.0-0.4) X10*3/uL Basophils # (Manual) 0.1 (0.0-0.2) X10*3/uL Toxic Granulation PRESENT Platelet Estimate NORMAL (NORMAL) Large Platelets PRESENT Plt Morphology Comment NOTED RBC Morphology NOTED Microcytosis 1+ (5-14) /OIF Macrocytosis 1+ (5-14) /OIF Havelock Cells 2+ (3-5) /OIF Schistocytes 1+ (0-2) /OIF Sodium 139 (135-145) mmol/L Potassium 4.3 (3.3-5.1) mmol/L Chloride 104 (96-108) mmol/L Carbon Dioxide 24 (22-29) mmol/L Anion Gap 15 (12-20) BUN 17 H (9-16) mg/dL Creatinine 1.00 (0.5-1.4) mg/dL Estim Creat Clear Calc 70.2 Estimated GFR > 60 Random Glucose 153 H (60-115) mg/dL Calcium 10.8 H D (8.4-10.2) mg/dL Magnesium 2.0 (1.6-2.6) mg/dL Total Bilirubin 1.8 H (0.0-1.0) mg/dL AST 26 (5-37) U/L ALT 11 (0-40) U/L Alkaline Phosphatase 81 (39-117) U/L Troponin I High Sens < 2.7 < 2.7 (<3.5-35.0) ng/L Total Protein 7.9 (6.5-8.0) g/dL Albumin 4.3 (3.5-5.0) g/dL Influenza Type A (PCR) NEGATIVE (Negative) Influenza Type B (PCR) NEGATIVE (Negative) RSV RNA Qual (PCR) NEGATIVE (Negative) SARS-CoV-2 RNA (RT-PCR) NEGATIVE (Negative) Independent Interpretation I performed an independent interpretation of an: EKG Interpretation: Normal sinus rhythm left axis deviation no acute ST-T changes no acute ischemia Discharge Plan Discharge Clinical Impression: Chest pain Patient Disposition: Home, Self-Care Instructions: Chest Pain (ED) Additional Instructions: At this time there is no evidence of major cardiac event Continue your aspirin Follow up with your PCP and supervisor cutting department for further management Report to the ER if recurrence of the chest pain Prescriptions: No Action (DME) Contour Test Strips Strip See Rx Instructions .Route Qty: 450 1RF Rx Instructions: 5 times a day (DME) insulin syringe-needle U-100 [BD Insulin Syringe Ultra-Fine] 1 mL 30 gauge x 1/2 syringe See Rx Instructions .Route Qty: 200 3RF Rx Instructions: Use to inject insulin twice per day vitamin B complex Capsule 1 cap PO DAILY latanoprost 0.005 % drops 1 drp ophthalmic (eye) QPM Humulin N NPH U-100 Insulin 100 unit/mL suspension 30 unit subcut BID zinc 50 mg Capsule 50 mg PO DAILY cholecalciferol (vitamin D3) 100 mcg (4,000 unit) capsule 1,200 unit PO DAILY berberine-herbal comb no.18 Capsule 500 cap PO BID ascorbate calcium (vitamin C) 500 mg tablet 1.5 g PO DAILY (DME) resvertrol 0 .Route .MEDSUPPLY (DME) FreeStyle Nilsa 3 Sensor Device See Rx Instructions .Route Qty: 6 1RF Rx Instructions: Test blood sugar 4 times per day alpha lipoic acid 200 mg capsule 200 mg PO BID (DME) Ankle Brace Misc See Rx Instructions .ROUTE .MEDSUPPLY Qty: 1 0RF Rx Instructions: LEFT AFO custom molded for foot drop Custom shoes, diabetic foot Curcumin 95 % powder 95 ea miscellaneous DAILY dorzolamide 2 % drops 2 drp ophthalmic (eye) DAILY Referrals: Arnold Gunderson MD [Physician] - 1 week Interventions: ED Discharge Assessment Last Done: 01/12/25 23:06 Discharge Date/Time: 01/12/25 23:07 Print Language: Russian
[2025-01-12 16:52] VITALS: BP 135/71; PULSE 104; RESP 18; TEMP 36.3; O2SAT 100; BMI 28.0
[2025-01-12 17:20] LABS: PLT CLUMP 1; Red Cell Distribution Width 13.1 % (11.0-16.0)
[2025-01-12 17:22] LABS: Hematocrit 42.2 % (42.0-52.0); Hemoglobin 15.4 g/dl (14.0-18.0); Mean Corpuscular HGB Conc 36.5 g/dl (31.0-36.0); Mean Corpuscular Hemoglobin 31.2 pg (27.0-33.0); Mean Corpuscular Volume 85.6 fL (80.0-98.0); Red Blood Count 4.93 X10*6/uL (4.60-5.80)
[2025-01-12 17:36] LABS: Alanine Aminotransferase 11 U/L (0-40); Albumin Level 4.3 g/dL (3.5-5.0); Alkaline Phosphatase 81 U/L (39-117); Anion Gap 15 (12-20); Aspartate Amino Transferase 26 U/L (5-37); Bilirubin Total 1.8 mg/dL (0.0-1.0); Blood Urea Nitrogen 17 mg/dL (9-16); Calcium 10.8 mg/dL (8.4-10.2); Carbon Dioxide 24 mmol/L (22-29); Chloride 104 mmol/L (96-108); Creatinine Clr Calc Pharmacy 70.2; Estimated Glomerular Filt Rate > 60; Glucose Random 153 mg/dL (60-115); Potassium 4.3 mmol/L (3.3-5.1); Sodium 139 mmol/L (135-145); Total Protein 7.9 g/dL (6.5-8.0)
[2025-01-12 17:38] LABS: WBC ABN SCTR FOR CBC 1
[2025-01-12 17:40] LABS: Troponin-I High Sensitivity < 2.7 ng/L (<3.5-35.0)
[2025-01-12 17:49] LABS: Atypical Lymphs Percent Manual 9 % (0-6); Band Neutrophils Percent 2 % (3-5); Basophils Percent Manual 1 % (0-2); Eosinophils Percent Manual 16 % (0-4); Large Platelet PRESENT; Lymphocytes Percent Manual 37 % (20-40); Macrocytosis 1+ (5-14) /OIF; Microcytosis 1+ (5-14) /OIF; Monocytes Percent Manual 6 % (2-11); Neutrophils Percent Manual 29 % (45-73); Platelet Estimate NORMAL (NORMAL); Platelet Morphology Comment NOTED; RBC Morphology NOTED; Schistocytes 1+ (0-2) /OIF
[2025-01-12 17:50] LABS: Atypical Lymph Absolute Manual 1.2 x10*3/uL; Basophils Abs Manual 0.1 X10*3/uL (0.0-0.2); Burr Cells 2+ (3-5) /OIF; Eosinophils Absolute Manual 2.1 X10*3/uL (0.0-0.4); Lymphocytes Absolute Manual 4.8 X10*3/uL (1.2-4.9); Monocytes Absolute Manual 0.8 X10*3/uL (0.1-1.2); Platelet Count 367 X10*3/uL (160-400); Toxic Granulation PRESENT
[2025-01-12 18:38] LABS: Influenza A PCR NEGATIVE (Negative); Influenza B PCR NEGATIVE (Negative); Resp Syncy Virus RNA Qual PCR NEGATIVE (Negative); SARS COV2 PCR INHOUSE NEGATIVE (Negative)
[2025-01-12 19:30] LABS: Troponin-I High Sensitivity < 2.7 ng/L (<3.5-35.0)
--- OUTSIDE RECORDS SUMMARY | 2025-01-12 21:55 | XMS_ITS | Clinical Summary ---
Author Organization [facility] it[facility] Address [address] [place] [address] Care Team Providers Care Greeting Card Editor Name Role Phone Unavailable Primary Care Provider [...] Vaccines (1 of 2) 1996 RSV Immunization Adult Patie nts (1 - 1-dose 75+ series) 2021 Cholesterol [...]
--- OUTSIDE RECORDS SUMMARY | 2025-01-12 21:55 | XMS_ITS ---
Author [facility] [place] Address [address] [place] [address] Care Team Providers Care Gas Pumping Station Helper Name Role Phone Stuart Lozano Primary Care Provider Unav ailable Black, Marychuy Unavailable [phone] Allergies Allergen (clinical drug ingredient) Drug/Non Drug Allergy documented on EMR Reaction Allergy Type Onset Date Status 12 Hour Nasal [place] Unknown Drug Allergy Active Dust Mites Unknown [...] Twice a day for 30 days Active Shelton 3-6-9 Not-Jd ng Timolol Maleate PF N [...] as directed Orally Active Vitamin D Active D67-Rbzdma Active Vitamin D3 Active Social History Tobacco [...] Ordered Date Performed Result Body Sit e 58237-KOWIOUH NAIL, 6 OR MORE 11/23/2024 N/A 32905-UQJU SKIN LESIONS, OVER 4 11/23/2024 N/A Encounters Encounter Location Date Provider Diagnosis [facility] [address] [place] [address] 11/23/2024 Marychuy Black Type 1 diabetes mellitus [...] days Pending Test Test Name Order Date [id number] NAIL, 6 OR MORE 11/23/2024 28259-ZGPK SKIN LESIONS, OVER 4 11/23/19 25 Next Appt Details Follow Up: prn, Reason: Provider Name:Marychuy Kelley , 03/15/2025 02:30:00 PM, [address] [place] [address], [phone], Procedure Notes * Category Sub-Category Detail Notes [...] use of a nail nipper and/or dremel-type fusion juncture grinder, to a more viable healthy nail [...] to maintain effectiveness in symptomatic relief - 33501 Keratoma Treatment Parring or Cutting o f [...] instrumentation by the physician of record - 99397 Progress Notes * Casey SEWELL KDOB:[birth year] (79 yo M)Acc No.[id number]:11/23/2024 Progress Note Patient:?Casey SEWELL Provider:?Marychuy Kelley DPM :1945???Age:79 Y???Sex:Male David e:11/23/2024 Address:[address] [place] [address] [id number] Pcp:IVORY Mattson Subjective: * Chief Complaints: * [...] kidney disease 04/2020 * Hospitalization/Major Diagno stic [facility] right [facility] - saw minerva bonilla [facility] 10[facility] Scan [facility]- Bladder Scan [facility]- Possible Heart Attack/Stress Anxiety/Covid 07/31 * Family [...] no. ?Marital status: single. 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 * Medications:?PokkdaB54-Pvfpw e Vitamin D3 Resveratrol Flax Seed Oil Vitamin B Complex - Tablet as directed Orally Berberine HCI 500 MG Capsule as directed Orally Vitamin D HumuLIN N Zinc Vitamin C 500 MG Capsule as directed Orally Once a day Turmeric AFO-Hinged as directed Wear Daily Taking Y57-Vjqnum Taking Vitamin D3 Taking Resveratrol Taking Flax [...] Release 1 tablet Orally Once a day Shelton 3-6-9 Nattokinase 100 MG Capsule as directed [...] 1 tablet Orally Once a day Not-Taking/PRN Shelton 3-6-9 Not-Taking/PRN Nattokinase 100 MG Capsule as [...] 30 days, 280, Refills 3.?? 3.?Tinea unguium?Procedure: 07241-[id number] NAIL, 6 OR MORE * Procedures:?Debride Nail [...] use of a nail nipper and/or dremel-type fusion juncture grinder, to a more viable healthy nail [...] to maintain effectiveness in symptomatic relief - 73400.?Keratoma Treatment:?Parring or Cutting of Benign Hyperkeratotic Lesion(s)?(-57) [...] instrumentation by the physician of record - 18703.? * Procedure Codes:?12597 TRIM SKIN LESIONS, OVER 4, Modifiers: XS 49661 DEBRIDE NAIL, 6 OR MORE, Modifiers: XS [...] Kelley DPM Date:?2024 Generated for Alfredo logan/Lila/eTransmitting on:?01/12/2025 09:55 PM EDT History and Physical Notes * [...]
--- OUTSIDE RECORDS SUMMARY | 2025-01-12 21:55 | XMS_ITS | Patient Health Record ---
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 Problem 242163617293116 Preprocedural examination (Z01.818) Active confirmed Problem 878232598 History of colon cancer (Z85.038) Active confirmed Problem 39981572 Constipation, unspecified constipation type (K59.00) Active confirmed Problem Diverticulosis of colon (510716114) Diverticulosis of colon (K57.30) Active confirmed Problem History of gastrointestinal tract bypass (485289626) Hx of Billroth II operation (Z98.0) Active confirmed Vital Signs Temperature 97.7 degrees Fahrenheit 03/08/2024 Blood pressure diastolic 00 mm Hg 03/08/2024 Height 71.5 in 03/08/2024 Blood pressure systolic 000 mm Hg 03/08/2024 Weight 214 lbs 03/08/2024 BMI 29.43 kg/m2 03/08/2024 Encounters Encounter Location Date Provider Diagnosis [facility] [address] [place] [address] 03/08/2024 Ernesto Wu History of adenomato us polyp of colon Z86.010 ; Preprocedural examination Z01.818 ; Encounter for screening for malignant neoplasm of colon Z12.11 ; History of colon cancer Z85.038 and Constipation, unspecified constipation type K59.00 [facility] [address] [place] [address] 09/12/2024 Ernesto Wu [facility] [address] [place] [address] 10/03/2024 Ernesto Wu Assessments Encounter Date Diagnosis [...] Provider Name:Ernesto Wu , 04/04/2025 02:20:00 PM, [address] [place] [address], [address], [place], [address], Insurance Providers Payer Name Payer Address Payer Phone Subscriber Number Group Number Insured Name Patient Relationship to Insured Coverage Start Date Coverage End Date [facility] [address] [place], [place] [id number] MELISSA ELDER Self - patient is the insured Medical (General) History Medical History History ICD Code Denies [place],CVA,Lung disease,renal disease IDDM Pulmonary sarcoidosis--inactive Spherocytosis Colonoscopy [...] surgery for stones with J[facility] Liriano at [facility]
--- OUTSIDE RECORDS SUMMARY | 2025-01-12 21:55 | XMS_ITS ---
Author Organization [facility] Address [address] [place] [address] Care Team Providers Care Bindery Machine Operator Name Role Phone Stuart Lozano Primary Care Provider Unav ailable Black, Marychuy Unavailable [phone] REASON FOR VISIT rx for AFO Encounters Encounter Location Date Provider Diagnosis [address] [address] 08/22/2024 Marychuy Black Plan Of Treatment Next Appt Details Provider Name:Marychuy Archer Warren , 03/15/2025 02:30:00 PM, [address] [place], [address], Progress Notes * Casey SEWELL KDOB:[birth year] (79 yo M)Acc No.[id number]:08/22/2024 Patient:?Casey SEWELL :1945???Age:79 Y???Sex:Male Address:[address] [place] [address] [place], [address] * true * Date:? Generated for Printi ng/Fadoeg/eTransmitting on:?01/12/2025 09:55 PM EDT
--- OUTSIDE RECORDS SUMMARY | 2025-01-12 21:55 | XMS_ITS ---
Author Organization [facility] Address [address] [facility] [address] [place] [address] Care Team Providers Care Rn Community Name Role Phone MARC HERNANDEZ Primary Care Provider Ernesto Beck [phone] REASON FOR VISIT screening, hx polyps,hx colon ca Encounters Encounter Location Date Provider Diagnosis [facility] [address] [place], [place] [id number] 10/09/2024 Ernesto Wu Plan Of Treatment Next Appt Details Provider Name:Ernesto Wu , 04/04/2025 02:20:00 PM, [address] [facility], [address], [place], [address], Progress Notes * MELISSA HUNT KDOB:[birth year] (79 yo M)Acc No.[id number]:10/09/2024 COLON WITH MAC Patient:?MELISSA HUNT Provider:?Ernesto Wu MD :1945???Age:79 Y???Sex:Male David e:10/09/2024 Address[address] [facility] Pcp:MARC HERNANDEZ Subjective: * Chief Complaints: * [...] MD Date:? 024 Generated for Alfredo logan/Lila/Dakotaitting on:?01/12/2025 09:55 PM EDT
--- OUTSIDE RECORDS SUMMARY | 2025-01-12 21:56 | XMS_ITS ---
Author Organization [facility] Address [address] [place] [address] Care Team Providers Care Manufacturing Engineer Machining Name Role Phone MARC HERNANDEZ Primary Care Provider Ernesto Beck [phone] REASON FOR VISIT left message with answering service Encounters Encounter Location Date Provider Diagnosis [facility] [address] [place] [address] 10/03/2024 Ernesto Wu Plan Of Treatment Next Appt Details Provider Name:Ernesto Wu , 04/04/2025 02:20:00 PM, [address], [address], [place], [address], Progress Notes * MELISSA HUNT KDOB:[birth year] (79 yo M)Acc No.[id number]:10/03/2024 Patient:?MELISSA HUNT :1945???Age:79 Y???Sex:Male Address:[address] [place] [address] [place] [address] * true * Date:? Generated for Printi doreen/Lila/eTransmitting on:?01/12/2025 09:56 PM EDT
--- OUTSIDE RECORDS SUMMARY | 2025-01-12 21:56 | XMS_ITS | Clinical Summary ---
Author Organization [facility], Address [address] [place] [address] [place] [address] Phone Care Team Providers Care Printer Slotter Helper Name Role Phone Stuart Will NP Primary Care Provider [phone] Allergies Active Allergy Reactions Criticality Noted Date [...] patient's age to complete this topic Insurance [place] [id number] Care Teams Printer Slotter Helper Relationship Specialty Start Date End Date Stuart Will NP [address] [place] [address] PCP - General Nurse Practitioner 12/06/20
--- OUTSIDE RECORDS SUMMARY | 2025-01-12 21:56 | XMS_ITS ---
Author Organization [facility] Address [address] [place] [address] Care Team Providers Care Heel Top Lift Splitter Name Role Phone Stuart Lozano Primary Care Provider Unav ailable Black, Marychuy Unavailable [phone] REASON FOR VISIT Balance Encounters Encounter Location Date Provider Diagnosis [address] [address] 11/23/2024 Marychuy Black Plan Of Treatment Next Appt Details Provider Name:Marychuy Archer Warren , 03/15/2025 02:30:00 PM, [address] [place], [address], Progress Notes * Casey SEWELL KDOB:[birth year] (79 yo M)Acc No.[id number]:11/23/2024 Patient:?Casey SEWELL :1945???Age:79 Y???Sex:Male Address:[address] [place] [address], [address] * true * Date:? Generated for Printi doreen/Lila/eTransmitting on:?01/12/2025 09:56 PM EDT
--- OUTSIDE RECORDS SUMMARY | 2025-01-12 21:56 | XMS_ITS ---
Author Organization [facility] Address [address] [place] [address] Care Team Providers Care Under Presser Name Role Phone MARC HERNANDEZ Primary Care Provider Ernesto Beck [phone] REASON FOR VISIT medication change. /procedure end of month/waiting on pt call back Encounters Encounter Location Date Provider Diagnosis [facility] [address] [facility] [address] [place] [address] 09/12/2024 Ernesto Wu Plan Of Treatment Next Appt Details Provider Name:Ernesto Wu , 04/04/2025 02:20:00 PM, [address] [facility], [address], [place], [address], Progress Notes * MELISSA HUNT KDOB:[birth year] (79 yo M)Acc No.[id number]:09/12/2024 Patient:?MELISSA HUNT :1945???Age:79 Y???Sex:Male Address:[address] [place] [address] [place] [id number] * true * Date:? Generated for Printi doreen/Lila/eTransmitting on:?01/12/2025 09:56 PM EDT
[2025-01-12 22:10] VITALS: BP 130/54; PULSE 75; RESP 16; TEMP 36.4; O2SAT 100
--- NOTE | 2025-01-12 23:04 | PC.NURSE ---
Reviewed discharge instruction with pt. pt verbalized understanding no sign of distress.
[2025-01-12 23:06] VITALS: BP 130/54; PULSE 75; RESP 16; TEMP 36.4; O2SAT 100
== END 2025-01-12 23:07 | disposition home or self-care (01) ==
PROVIDERS: Physician Assistant Medical; Emergency Provider Internal Medicine; PCP Nurse Practitioner Family
DX: R07.89 Other chest pain (principal); R06.02 Shortness of breath; Z03.818 Encounter for observation for suspected exposure to other biological agents ruled out; Z79.899 Other long term (current) drug therapy
CPT/HCPCS: 0241U; 36415; 71045; 80053; 83735; 84484; 85007; 85027; 93005; 99283; 99285

== ENCOUNTER → 2025-01-12 16:39 | Outpatient (BNV) | payer BC, SELFPAY | PROVIDERS: Emergency Provider Internal Medicine; PCP Nurse Practitioner Family; Visit Provider Internal Medicine | DX: R94.31 Abnormal electrocardiogram [ECG] [EKG] (principal); R07.9 Chest pain, unspecified | CPT/HCPCS: 93010 ==

== ENCOUNTER → 2025-01-12 22:00 | Outpatient (BNV) | payer BC, SELFPAY | PROVIDERS: Emergency Provider Internal Medicine; PCP Nurse Practitioner Family; Visit Provider Radiology Neuroradiology | DX: R06.02 Shortness of breath (principal) | CPT/HCPCS: 71045 ==

== ENCOUNTER 2025-01-23 14:27 | Outpatient (AMB) | payer BC, SELFPAY ==
--- NOTE | 2025-01-23 14:28 | MHC.OFFWIV ---
Intake Vital Signs 01/23/25 14:39 Weight 203 lb BP 110/76 Blood Pressure Location Lt brachial Position Sitting Pulse 90 Pulse Source Pulse Oximeter Pulse Oximetry (%) 97 Oxygen Delivery Method Room Air Intake Visit Reasons: EP-rt shoulder pain, sob, headache Patient Tobacco Use Status: Never used Tobacco Allergies penicillamine Allergy (Unknown, Verified 01/23/25 14:40) unknown Do you need a note to return to daycare/school/sports/work: No HPI HPI Comments History of Present Illness Details This is a 71-year-old male with a past medical history of insulin-dependent diabetes, hyperlipidemia, coronary artery disease, IBS-D and diabetic neuropathy presenting for evaluation of right shoulder pain that he has had for the past 2 months. Patient denies any injury or trauma and states that the pain will come and go. Patient notices the pain more in the mornings and has not taken any medication for treatment of his discomfort. 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 Vitamin D deficiency Cholecystectomy planned Osteoarthritis History of colon cancer CKD (chronic kidney disease) Sarcoidosis Partial nontraumatic amputation of right foot PVD (peripheral vascular disease) Diabetic retinopathy Spherocytosis Skin cancer Peripheral neuropathy Spinal stenosis Renal stones Pulmonary sarcoidosis Diabetes Surgical History History of amputation of foot History of ureter repair H/O splenectomy S/P ureteral reimplantation History of surgical removal of pilonidal cyst History of tonsillectomy and adenoidectomy H/O right hemicolectomy Status post laser lithotripsy of ureteral calculus Hx of cholecystectomy Hx of colonoscopy Family History Mother Thyroid cancer Other Mental health disorder Social History Household Members: Friend(s) Housing: House Are you a primary career development facilitator to a significant other at home: No Do you presently have visiting nurse or other home services: No Alcohol intake: never Patient Tobacco Use Status: Never used Tobacco e-Cigarette/Vaping Use: Never Used Second Hand Smoke Exposure: No Advance Directives Date on File: 12/02/23 service: No Current occupational status: employed and retired Cognitive needs: No Hearing needs: No Vision needs: No Review of Systems Const All systems reviewed & are unremarkable except as noted in HPI and below Eyes Reports no additional complaints ENT Reports no additional complaints Card Reports no additional complaints, Denies chest pain and Reports dyspnea (unchanged) Resp Reports dyspnea (unchanged) GI Reports no additional complaints Reports no additional complaints Musc Reports arthralgias (right shoulder) and Denies limited range of motion Skin/Breast Reports system reviewed and no additional complaints, except as documented Neuro Reports no additional complaints Psych Reports no additional complaints Endo Reports no additional complaints Armaan/Lymph Reports no additional complaints Aller/Immun Reports no additional complaints Physical Exam Vital Signs: Last Vital Signs Pulse 90 01/23/25 14:39 BP 110/76 01/23/25 14:39 Pulse Ox 97 01/23/25 14:39 Oxygen Delivery Method Room Air 01/23/25 14:39 Const General: cooperative, comfortable, no acute distress and well developed Nutritional Appearance: average body habitus Orientation/consciousness: patient oriented x3 Limitations: no limitations Resp Effort & Inspection: normal respiratory effort, able to speak in complete sentences, no audible wheezes and no cough Auscultation: clear to auscultation bilaterally Cardio Rate: regular rate Rhythm: regular rhythm Skin General skin exam: no rashes or lesions noted Neuro General: patient oriented x3 Extrem General: Yes normal to inspection and Yes full ROM Right upper extremity: normal to inspection, full ROM, no joint enlargement and shoulder/upper arm (pain to palpation R. anterior deltoid,no bony tenderness,no clavicular pain); no cyanosis and no edema Left upper extremity: normal to inspection, full ROM, no joint enlargement and shoulder/upper arm (ROM intact, no clavicular or other bony tenderness); no cyanosis and no edema Psych Appearance: grossly normal Mental Status: mental status grossly normal Insight: Good insight present (Psych) Judgement: Good judgement present (Psych) Assessment & Plan Assessment & Plan (1) Right shoulder strain: Comment: The patient has 5/5 strength right upper extremity, left upper extremity and range of motion is intact, no bony tenderness on examination. Imaging will be deferred at this time. Code(s): S46.911A - Strain of unspecified muscle, fascia and tendon at shoulder and upper arm level, right arm, initial encounter Qualifiers: Encounter type: initial encounter Qualified Code(s): S46.911A - Strain of unspecified muscle, fascia and tendon at shoulder and upper arm level, right arm, initial encounter Plan: Naprosyn 500 mg b.i.d. times 10 days. Patient will follow up with his primary care provider as an outpatient for an assessment of further needs including possible physical therapy. Medications: New naproxen (EC-Naprosyn) 500 mg PO BID 20 tabs 0RF Coding Level of Care Code Est Pt Level 3 (66061) Diagnoses Strain of right shoulder, initial encounter S46.911A Encounter type: initial encounter Time Spent (min) 22
[2025-01-23 14:39] VITALS: BP 110/76; PULSE 90; O2SAT 97
--- OUTSIDE RECORDS SUMMARY | 2025-01-23 17:40 | XMS_ITS ---
[facility] [place] Address [address] [place] [address] Care Team Providers Care Used Equipment Sales Representative Name Role Phone Stuart Lozano Primary Care Provider Unav ailable Black, Marychuy Unavailable [phone] Allergies Allergen (clinical drug ingredient) Drug/Non Drug Allergy documented on EMR Reaction Allergy Type Onset Date Status 12 Hour Nasal [place] Unknown Drug Allergy Active Dust Mites Unknown [...] Twice a day for 30 days Active Sellers 3-6-9 Not-Jd ng Timolol Maleate PF N [...] as directed Orally Active Vitamin D Active O55-Cnbjsu Active Vitamin D3 Active Social History Tobacco [...] Ordered Date Performed Result Body Sit e 83652-MRHPKFM NAIL, 6 OR MORE 11/23/2024 N/A 56871-VWFV SKIN LESIONS, OVER 4 11/23/2024 N/A Encounters Encounter Location Date Provider Diagnosis [facility] [place] [address] [place] [address] 11/23/2024 Marychuy Black Type 1 diabetes mellitus [...] days Pending Test Test Name Order Date 89824-QGEEFJQ NAIL, 6 OR MORE 11/23/2024 93510-EBPA SKIN LESIONS, OVER 4 11/23/19 25 Next Appt Details Follow Up: prn, Reason: Provider Name:Marychuy Kelley , 03/15/2025 02:30:00 PM, [address] [place] [address], [address], Procedure Notes * Category Sub-Category Detail Notes [...] to maintain effectiveness in symptomatic relief - 97570 Keratoma Treatment Parring or Cutting o f [...] instrumentation by the physician of record - 37100 Progress Notes * Casey SEWELL KDOB:[birth year] (79 yo M)Acc No.[id number]:11/23/2024 Progress Note Patient:?Casey SEWELL Provider:?Marychuy Kelley DPM :1945???Age:79 Y???Sex:Male David e:11/23/2024 Address:[address] [place] [address] [facility] Pcp:IVORY Mattson Subjective: * Chief Complaints: * [...] kidney disease 04/2020 * Hospitalization[facility] Diagn[facility] stic [facility] - saw minerva bonilla [facility] chest pain [facility]- Possible Heart Attack/Stress Anxiety/Covid 07/31 * Family [...] no. ?Marital status: single. 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 * Medications:?VbatghV99-Ihxqu e Vitamin D3 Resveratrol Flax Seed Oil Vitamin B Complex - Tablet as directed Orally Berberine HCI 500 MG Capsule as directed Orally Vitamin D HumuLIN N Zinc Vitamin C 500 MG Capsule as directed Orally Once a day Turmeric AFO-Hinged as directed Wear Daily Taking H66-Aarvcq Taking Vitamin D3 Taking Resveratrol Taking Flax [...] Release 1 tablet Orally Once a day Sellers 3-6-9 Nattokinase 100 MG Capsule as directed [...] 1 tablet Orally Once a day Not-Taking/PRN Sellers 3-6-9 Not-Taking/PRN Nattokinase 100 MG Capsule as [...] 30 days, 280, Refills 3.?? 3.?Tinea unguium?Procedure: 57410-CTUAZKM NAIL, 6 OR MORE * Procedures:?Debride Nail [...] to maintain effectiveness in symptomatic relief - 66623.?Keratoma Treatment:?Parring or Cutting of Benign Hyperkeratotic Lesion(s)?(-57) [...] instrumentation by the physician of record - 04719.? * Procedure Codes:?69075 TRIM SKIN LESIONS, OVER 4, Modifiers: XS 04168 DEBRIDE NAIL, 6 OR MORE, Modifiers: XS [...] Kelley DPM Date:?2024 Generated for Alfredo logan/Lila/eTransmitting on:?01/23/2025 05:40 PM EDT History and Physical Notes * [...]
--- OUTSIDE RECORDS SUMMARY | 2025-01-23 17:40 | XMS_ITS | Clinical Summary ---
Author Organization [facility] it Address [address] [place] [address] Care Team Providers Care Athletic Trainer Name Role Phone Unavailable Primary Care Provider Unavailabl e Encounters Date Type Department Care Team Description 01/18/2025 Telephone [facility] Cardiology [facility] [address] [place] [address] Physician, Pcp Unknown from Last 3 Months Social History Tobacco Use Types Packs/Day Years [...] nts (1 - 1-dose 75+ series) 2021 COVID-19 Vaccine ( - 2023-2 5 season) 2024 Cholesterol Screening (Lipid Panel) 01/18/2025 Depression Screening 01/18/2025 Falls Risk Assessment 01/18/2025 Hepatitis C Screening 01/18/2025 Social Influencers of Health Screening 01/18/2025 Influenza Vaccine (Season Ended) 2025 HIB Vaccines Aged Out No longer eligi [...] age to complete this topic Meningococcal B Vaccine Aged Out No l onger eligible based on patient's age to complete this topic RSV Immunization Patients Un angela 20 months Aged Out No longer eligible b ased on patient's age to complete this topic Varicella Vaccines Aged Out No longer eligible based on patient's age to complete this topic
--- OUTSIDE RECORDS SUMMARY | 2025-01-23 17:41 | XMS_ITS ---
Author Organization [facility] Address [address] [place] [address] Care Team Providers Care Speech Teacher Name Role Phone Stuart Lozano Primary Care Provider Unav ailable Black, Marychuy Unavailable [phone] REASON FOR VISIT Balance Encounters Encounter Location Date Provider Diagnosis [address] [address] 11/23/2024 Marychuy Black Plan Of Treatment Next Appt Details Provider Name:Marychuy Archer Warren , 03/15/2025 02:30:00 PM, [address] [place], [address], Progress Notes * Casey SEWELL KDOB:[birth year] (79 yo M)Acc No.[id number]:11/23/2024 Patient:?Casey SEWELL :1945???Age:79 Y???Sex:Male Address:[address] [place] [address], [address] * true * Date:? Generated for Printi doreen/Lila/eTransmitting on:?01/23/2025 05:41 PM EDT
--- OUTSIDE RECORDS SUMMARY | 2025-01-23 17:41 | XMS_ITS | Patient Health Record ---
[facility] Address [address] [place] [address] Care Team Providers Care Director Of Search Engine Marketing Name Role Phone Stuart Lozano Primary Care Provider Unav ailable Black, Marychuy Unavailable [phone] Allergies Allergen (clinical drug ingredient) Drug/Non Drug Allergy documented on EMR Reaction Allergy Type Onset Date Status 12 Hour Nasal [place] Unknown Drug Allergy Active Dust Mites Unknown Allergy Active Results Component Value Reference Range Notes HEMOGLOBIN A1C (GLYCOHEMOGLO BIN) Reviewed date:11/23/2024 02:15:55 PM Interpretation: Performing Lab: Notes/Report: HEMOGLOBIN A1C % (HH) 5.2 HEMOGLOBIN A1C (GLYCOHEMOGLO BIN) Reviewed date:05/11/2024 03:00:32 [...] Multivitamins Not-Jacek hensley Ascorbic Acid Not-Jacek hensley U23-Botuyf Active Aspirin 81 MG 1 tablet Orally Once a day for 30 day(s) Not-Taking Vitamin D3 Active Resveratrol Active Lovastatin Not-Takin g Magnesium Not-Taking Flax Seeds - as directed Orally Not-Taking Aspirin 81 81 MG 1 tablet Orally Once a day Not-Taking Bow 3-6-9 Not-Taki ng Immunizations Vaccine Route Administration [...] Problem Acquired hammer toe of right foot (8309377289907022) Other hammer toe(s) (acquired), right foot (M20.41) Active confirmed Problem Acquired hammer toe of left foot (6079229848881108) Other hammer toe(s) (acquired), left foot (M20.42) Active confirmed Problem Non-pressure ulcer lower limb (695407413) Non-pressure chronic ulcer of other part of right foot limited to breakdown of skin (L97.511) Active confirmed Problem Polyneuropathy due to diabetes mellitus type I (411349943) 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 Problem Hammer toe (455079270) Hammer toe of left foot (M20.42) Active confirmed Problem 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 (950173535935540) Charcot foot due to diabetes mellitus (E11.610) Active confirmed Problem Unsteady gait (62616355) Unsteady gait (R26.81) Active confirmed Problem Ankle ulcer (170330816) Skin ulcer of right ankle, limited to breakdown of skin (L97.311) Active confirmed Problem Ulcer of toe of right foot (disorder) (10970708584914699) Skin ulcer of toe of right foot, limited to breakdown of skin (L97.511) Active confirmed Problem Acquired equinovarus deformity (78824258) 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) Active confirmed Problem 73690962188090140 Skin ulcer of toe of left foot, limited to breakdown of skin (L97.521) Active confirmed Vital Signs Blood pressure diastolic 65 mm Hg 11/23/2024 Height 5ft 11in in 11/23/2024 Blood pressure systolic 110 mm Hg 11/23/2024 Weight 215 lbs 11/23/2024 BMI 29.98 kg/m2 11/23/2024 Procedures Procedure Date Ordered Date Performed Result Body Sit e 85916-DZOCPTE NAIL, 6 OR MORE 05/11/2024 N/A 11819-NBVS SKIN LESIONS, OVER 4 05/11/2024 N/A 67864-ZXCPHCG NAIL, 1-5 08/17/2024 N/A 70220-Mhxvommh Plate 08/17/2024 N/A 09164-Sjflzsxg Plate Each Additional 08/17/2024 N/A 90610-MPNA SKIN LESIONS, OVER 4 08/17/2024 N/A 16101-CKWRAZD NAIL, 6 OR MORE 11/23/2024 N/A 43439-XEUI SKIN LESIONS, OVER 4 11/23/2024 N/A Encounters Encounter Location Date Provider Diagnosis [address] [address] 05/11/2024 Marychuy Black Type 1 diabetes mellitus with diabetic polyneuropathy E10.42 and Tinea unguium B35.[address] [address] 08/17/2024 Marychuy Black Type 1 diabetes mellitus with diabetic polyneuropathy E10.42 ; Tinea unguium B35.1 ; Ingrown nail L60.0 and Skin ulcer of toe of left foot, limited to breakdown of skin L97.[address] [address] 11/23/2024 Marychuy Black Type 1 diabetes mellitus with diabetic polyneuropathy E10.42 ; Xerosis of skin L85.3 and Tinea unguium B35.[address] [address] 04/18/2024 Marychuymerline Kelley [address] [address] 08/22/2024 Marychuymerline Kelley [address] [address] 11/23/2024 Marychuy Black Assessments Encounter Date Diagnosis (ICD Code) Assessment Notes Treatment Notes Treatment Clinical Notes Section Notes 05/11/2024 Tinea unguium (ICD-10 - B35.1) 05/11/2024 [...] Test Name Order Date Hemoglobin A1c 12/02/2015 59632-KFKBYTJ NAIL, 6 OR MORE 11/23/2024 98673-DZLRLCV NAIL, 6 OR MORE 05/11/2024 17980-DOEQVPS NAIL, 6 OR MORE 07/08/2023 33843-URJROUU NAIL, 6 OR MORE 10/21/2023 51009-AWAGLIR NAIL, 6 OR MORE 12/02/2020 67629-NPCUHQI NAIL, 6 OR MORE 03/13/2021 92539-CZHHWSF NAIL, 6 OR MORE 06/09/2021 56207-AYORVVS NAIL, 6 OR MORE 09/08/2021 64335-UFSKORW NAIL, 6 OR MORE 01/30/2022 25581-CGGHGZW NAIL, 6 OR MORE 06/22/2022 95800-ICGBKCF NAIL, 6 OR MORE 09/28/2022 67174-EBGFESN NAIL, 6 OR MORE 12/28/2022 53310-EJISVOU NAIL, 6 OR MORE 04/05/2023 05271-IVJYCFL NAIL, 6 OR MORE 10/01/2011 22026-HTAODEA NAIL, 6 OR MORE 12/03/2011 10739-CRVZCQE NAIL, 6 OR MORE 03/03/2012 80995-KBBXOJZ NAIL, 6 OR MORE 06/02/2012 27096-YUEIRXA NAIL, 6 OR MORE 11/03/2012 04627-LLHGXCG NAIL, 6 OR MORE 01/23/2013 51411-RQLJORA NAIL, 6 OR MORE 04/03/2013 84100-FOXZFUR NAIL, 6 OR MORE 06/28/2013 85255-XYIGTSX NAIL, 6 OR MORE 09/13/2013 33329-BJDSTHA NAIL, 6 OR MORE 12/13/2013 29270-CGVOMZX NAIL, 6 OR MORE 03/22/2014 94826-FQAZDWP NAIL, 6 OR MORE 06/21/2014 93321-DLHLYYN NAIL, 6 OR MORE 09/20/2014 26836-SIXZONZ NAIL, 6 OR MORE 12/06/2014 09166-ZYHEKOE NAIL, 6 OR MORE 02/21/2015 19725-YOEWKEL NAIL, 6 OR MORE 05/13/2015 14812-ZOUYPYK NAIL, 6 OR MORE 09/09/2015 00050-XZJBXWN NAIL, 6 OR MORE 12/02/2015 25372-CAWRYWK NAIL, 6 OR MORE 02/24/2016 27590-WKYCWPI NAIL, 6 OR MORE 06/01/2016 29502-ZZDZBHK NAIL, 6 OR MORE 08/27/2016 33085-PHXKEEY NAIL, 6 OR MORE 12/07/2016 67710-QNRBNWC NAIL, 6 OR MORE 03/11/2017 92139-CXUPBYB NAIL, 6 OR MORE 06/24/2017 65716-DMAASRF NAIL, 6 OR MORE 09/27/2017 95891-LAAFNYY NAIL, 6 OR MORE 12/27/2017 43484-LQRKMCL NAIL, 6 OR MORE 06/02/2018 52733-LNTESZQ NAIL, 6 OR MORE 08/25/2018 60809-NNBYYLJ NAIL, 6 OR MORE 11/24/2018 28505-EYQGRLR NAIL, 6 OR MORE 03/09/2019 81783-HNUGVKP NAIL, 6 OR MORE 06/05/2019 09663-XOJKBFL NAIL, 6 OR MORE 09/18/2019 19330-OGKKJLZ NAIL, 6 OR MORE 03/11/2020 98678-YIHKICB NAIL, 6 OR MORE 06/13/2020 52178-DTPRGCI NAIL, 6 OR MORE 09/23/2020 90468-YNEUBLC NAIL, 1-5 01/20/2024 00296-GHEYWRD NAIL, 1-5 08/17/2024 61792-Irwb Destruction, -14 09/08/2021 46817-Pwxs Destruction, -14 06/09/2021 76739-Qvus Destruction, -14 03/11/2020 96085-Jjdc Destruction, -14 06/05/2019 12752-Laup Destruction, -14 09/18/2019 93887-Arek Destruction, -14 03/09/2019 41232-Tcue Destruction, -14 05/13/2015 32938-Dqma Destruction, -14 02/21/2015 86319-Fnpk Destruction, -14 12/06/2014 89421-Uwod Destruction, 10-2409/20/2014 98806-Khad Destruction, 10-2406/21/2014 70745-Qudw Destruction, 10-2403/22/2014 88736-Tswg Destruction, 10-2412/13/2013 39626-Yifp Destruction, 10-2409/13/2013 99598-Yhyp Destruction, 10-2406/28/2013 17586-Vctz Destruction, 10-2404/03/2013 63084-Ajor Destruction, 10-2401/23/2013 97996-Dmnt Destruction, 10-2411/03/2012 38425-Syex Destruction, 10-2406/02/2012 73886-Bbyc Destruction, 10-2410/01/2011 81341-Yrvs Destruction, 10-2403/03/2012 46645-Vhkt Destruction, 10-2412/03/2011 72171-Sqlxvlfc Plate 03/03/2012 63386-Dpvqfuyq Plate 12/03/2011 82617-Mmcsjjkd Plate 06/02/2012 83670-Bxqyiojl Plate 01/23/2013 78866-Rjrlifla Plate 04/03/2013 05783-Kioudzpy Plate 06/28/2013 91785-Vnqqhqog Plate 09/13/2013 40758-Ikhvulaw Plate 12/13/2013 94147-Flsrxevm Plate 03/22/2014 34552-Pstgukyw Plate 06/21/2014 22573-Nibihzhe Plate 09/20/2014 42122-Zgkkiqxw Plate 12/06/2014 50246-Tmjseohn Plate 02/21/2015 05852-Sklnfrrf Plate 05/13/2015 44784-Uqkbfruy Plate 12/27/2017 03092-Qkvbwdet Plate 06/05/2019 25496-Tinqookq Plate 11/24/2018 19895-Bxhejzmt Plate 03/09/2019 02904-Ftujefif Plate 08/25/2018 96564-Ntdyruqt Plate 09/18/2019 87995-Znqzgxix Plate 03/11/2020 65218-Btlcrkym Plate 09/27/2017 77962-Mueanyuo Plate 12/07/2016 15175-Ohxvcpyd Plate 08/27/2016 75251-Mfqcrieq Plate 06/01/2016 05510-Secvvfvq Plate 02/24/2016 03134-Owtzzitm Plate 12/02/2015 91292-Cugspdko Plate 11/03/2012 46433-Uzgfnhzl Plate 09/09/2015 83002-Yhnpmbsu Plate 06/09/2021 22023-Ictvlcqc Plate 06/13/2020 08695-Juvaledu Plate 09/08/2021 06886-Fhjquoni Plate 03/13/2021 01254-Lsoinfow Plate 09/23/2020 02125-Invxhbfr Plate 01/30/2022 58261-Ecivqdpc Plate 06/22/2022 74770-Toxkqlrf Plate 08/17/2024 79461-Jzmqrvkf Plate 01/20/2024 79974-Mqefyfzw Plate Each Additional 09/2022 12995-Gtcalfim Plate Each Additional 04/2024 14285-Hruwnzih Plate Each Additional 19840-Knigpftu Plate Each Additional 42633-Rociylff Plate Each Additional 12/2020 16694-Tewygmhh Plate Each Additional 45276-Rmjuxclh Plate Each Additional 45883-Umkyrtyk Plate Each Additional 03264-Bgpitxdc Plate Each Additional 65108-Jmkahuvn Plate Each Additional 45030-Edczqaeh Plate Each Additional 59280-Htnlhnbt Plate Each Additional 83040-Bdxoudbt Plate Each Additional 57290-Ejxcagog Plate Each Additional 65172-Nwkgrchj Plate Each Additional 06/2019 64259-Jxhkptbo Plate Each Additional 10/2019 63812-Pkscoept Plate Each Additional 37233-Tdzoukpp Plate Each Additional 14202-Fuwdnxaw Plate Each Additional 70653-Qoerwdtm Plate Each Additional 12/2014 70530-Jrqboxvk Plate Each Additional 88206-Odovnbta Plate Each Additional 24883-Crmxlggj Plate Each Additional 08/2014 12396-Nvnwzljp Plate Each Additional 08/2014 22624-Wnffahuz Plate Each Additional 09/2014 82117-Wbiyuwyq Plate Each Additional 02/2014 35963-Brtjpmay Plate Each Additional 01/2013 24885-Pdwwxgal Plate Each Additional 37946-Mlellcpz Plate Each Additional 01320-Aneupwbl Plate Each Additional 42776-Lrchejgw Plate Each Additional 93889-Sorntlcf Plate Each Additional 62286- Debride <25 sq cm 06/13/2020 62852- Debride <25 sq cm 04/05/2023 14607 I&D ABSCESS- SIMPLE,SINGLE 013 78668 I&D ABSCESS- SIMPLE,SINGLE 013 43343-EPRR SKIN LESIONS, OVER 4 01/24/20 13 03576-XVUT SKIN LESIONS, OVER 4 11/03/19 13 28786-UJWK SKIN LESIONS, OVER 4 04/03/20 13 80447-BBQP SKIN LESIONS, OVER 4 06/28/20 13 80090-WIWV SKIN LESIONS, OVER 4 09/13/20 13 86428-HJKI SKIN LESIONS, OVER 4 12/14/19 14 37100-QFKW SKIN LESIONS, OVER 4 03/22/20 14 78083-PYYT SKIN LESIONS, OVER 4 06/21/20 14 29591-HSTF SKIN LESIONS, OVER 4 09/20/20 14 70830-GWIG SKIN LESIONS, OVER 4 12/06/19 15 54561-JAUA SKIN LESIONS, OVER 4 02/22/20 15 26898-XJOF SKIN LESIONS, OVER 4 05/13/20 15 13107-HHZD SKIN LESIONS, OVER 4 06/13/20 20 19434-ZDNU SKIN LESIONS, OVER 4 09/23/20 20 14315-STRD SKIN LESIONS, OVER 4 03/11/20 20 69953-MWRM SKIN LESIONS, OVER 4 09/18/20 19 38210-ZHOL SKIN LESIONS, OVER 4 03/09/20 19 80297-VDSC SKIN LESIONS, OVER 4 06/05/20 19 86556-BICV SKIN LESIONS, OVER 4 11/24/19 19 62503-ICSK SKIN LESIONS, OVER 4 08/25/20 18 22205-UTFK SKIN LESIONS, OVER 4 12/28/19 18 34022-APXG SKIN LESIONS, OVER 4 06/02/20 18 85453-PBJK SKIN LESIONS, OVER 4 09/27/20 17 67707-BPVC SKIN LESIONS, OVER 4 06/24/20 17 44327-BNPZ SKIN LESIONS, OVER 4 12/07/19 17 55263-ZIJW SKIN LESIONS, OVER 4 03/11/20 17 06187-XASI SKIN LESIONS, OVER 4 08/27/20 16 09200-SEMU SKIN LESIONS, OVER 4 06/01/20 16 86260-ZWBW SKIN LESIONS, OVER 4 02/24/20 16 98468-BOBN SKIN LESIONS, OVER 4 12/02/19 16 20761-YIOA SKIN LESIONS, OVER 4 09/09/20 15 15786-VLWY SKIN LESIONS, OVER 4 04/05/20 23 41836-IMHU SKIN LESIONS, OVER 4 07/08/20 23 38326-PTNJ SKIN LESIONS, OVER 4 12/29/19 23 08871-SHHC SKIN LESIONS, OVER 4 09/28/20 22 58395-QQEU SKIN LESIONS, OVER 4 06/22/20 22 29005-XNLS SKIN LESIONS, OVER 4 01/31/20 22 04895-QKFL SKIN LESIONS, OVER 4 09/08/20 21 48605-EFEM SKIN LESIONS, OVER 4 06/09/20 21 47624-LPLX SKIN LESIONS, OVER 4 12/02/19 21 37627-RVUJ SKIN LESIONS, OVER 4 03/13/20 21 85871-WWGV SKIN LESIONS, OVER 4 08/17/20 24 20466-IRWA SKIN LESIONS, OVER 4 11/23/19 25 94232-DUEV SKIN LESIONS, OVER 4 05/11/20 24 53640-ZFAC SKIN LESIONS, OVER 4 01/20/20 24 31644-RNEK SKIN LESIONS, OVER 4 10/21/19 24 21542-LTNR SKIN LESIONS, 2 TO 4 06/02/20 12 49122-CDYO SKIN LESIONS, 2 TO 4 03/03/20 12 21219-KXFX SKIN LESIONS, 2 TO 4 12/03/19 12 85225-MXDZ SKIN LESIONS, 2 TO 4 10/01/20 11 Next Appt Details Provider Name:Marychuy Kelley , 03/15/2025 02:30:00 PM, [address] [place], [address], Insurance Providers Payer Name Payer Address Payer Phone Subscriber Number Group Number Insured Name Patient Relationship to Insured Coverage Start Date Coverage End Date [facility] [address] [place] [address] [phone] [id number] Casey Ulrich Self - patient is the [...] kidney disease 04/2020 Hospitalization History Reason Date([place] [facility]/Stress Anxiet y/Covid 07/31 [facility] [place] [facility] [facility]- [place] [facility] [place] - [facility]- chest pain 10/2015
--- OUTSIDE RECORDS SUMMARY | 2025-01-23 17:41 | XMS_ITS ---
Author Organization [facility] Address [address] [place] [address] Care Team Providers Care Glass Block Bender Name Role Phone MARC HERNANDEZ Primary Care Provider Ernesto Beck [phone] REASON FOR VISIT screening, hx polyps,hx colon ca Encounters Encounter Location Date Provider Diagnosis [facility] Outpatient [address] [place], [place] [phone] 10/09/2024 Ernesto Wu Plan Of Treatment Next Appt Details Provider Name:Ernesto Wu , 04/04/2025 02:20:00 PM, [address], [address], [place], [address], Progress Notes * MELISSA HUNT KDOB:[birth year] (79 yo M)Acc No.[id number]:10/09/2024 COLON WITH MAC Patient:?MELISSA HUNT Provider:?Ernesto Wu MD :1945???Age:79 Y???Sex:Male David e:10/09/2024 Address:[address] [place], [place] [id number] Pcp:MARC HERNANDEZ Subjective: * Chief Complaints: * [...] MD Date:? 024 Generated for Alfredo logan/Lila/Dakotaitting on:?01/23/2025 05:41 PM EDT
--- OUTSIDE RECORDS SUMMARY | 2025-01-23 17:41 | XMS_ITS ---
Author Organization [facility] Address [address] [place] [address] Care Team Providers Care Macaroni Maker Name Role Phone Stuart Lozano Primary Care Provider Unav ailable Black, Marychuy Unavailable [phone] REASON FOR VISIT rx for AFO Encounters Encounter Location Date Provider Diagnosis [address] [address] 08/22/2024 Marycuhy Black Plan Of Treatment Next Appt Details Provider Name:Marychuy Archer Warren , 03/15/2025 02:30:00 PM, [address] [place], [address], Progress Notes * Casey SEWELL KDOB:[birth year] (79 yo M)Acc No.[id number]:08/22/2024 Patient:?Casey SEWELL :1945???Age:79 Y???Sex:Male Address:[address] [place] [address] [place], [address] * true * Date:? Generated for Printi ng/Faxing/eTransmitting on:?01/23/2025 05:40 PM EDT
--- OUTSIDE RECORDS SUMMARY | 2025-01-23 17:41 | XMS_ITS | Patient Health Record ---
Author Organization [facility] Address [address] [place] [address] Care Team Providers Care Account Planner Name Role Phone MARC HERNANDEZ Primary Care Provider Ernesto Beck [phone] Allergies No Known Allergies Reason For Referral No Information Medications Medication SIG (Take, Route, Frequency, Duration) Notes Start Date End Date Status Dicyclomine HCl 10 MG 1 or 2 capsules Or ally Every 6 hours as needed for abdominal discomfort/cramps for 30 day(s) 10/17/2023 Active Cephalexin 500 MG TAKE 1 CAPSULE BY [facility] TWICE A DAY FOR 10 DAYS Oral [...] Problem Status W/U Status Risk Notes Problem 593212872 Encounter for screening for malignant neoplasm of colon (Z12.11) Active confirmed Problem 665360538 History of adenomatous polyp of colon (Z86.010) Active confirmed Problem 626103807 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 Problem 359936981835885 Preprocedural examination (Z01.818) Active confirmed Problem 969724808 History of colon cancer (Z85.038) Active confirmed Problem 99499834 Constipation, unspecified constipation type (K59.00) Active confirmed Problem Diverticulosis of colon (336644016) Diverticulosis of colon (K57.30) Active confirmed Problem 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) Active confirmed Vital Signs Temperature 97.7 degrees Fahrenheit 03/08/2024 Blood pressure diastolic 00 mm Hg 03/08/2024 Height 71.5 in 03/08/2024 Blood pressure systolic 000 mm Hg 03/08/2024 Weight 214 lbs 03/08/2024 BMI 29.43 kg/m2 03/08/2024 Encounters Encounter Location Date Provider Diagnosis [facility] [address] [place] [address] 03/08/2024 Ernesto Wu History of adenomato us polyp of colon Z86.010 ; Preprocedural examination Z01.818 ; Encounter for screening for malignant neoplasm of colon Z12.11 ; History of colon cancer Z85.038 and Constipation, unspecified constipation type K59.00 [facility] [address] [place] [address] 09/12/2024 Ernesto Wu [facility] [address] [place] [address] 10/03/2024 Ernesto Wu Assessments Encounter Date Diagnosis [...] Provider Name:Ernesto Wu , 04/04/2025 02:20:00 PM, [address] [place] [address], [address], [place], [address], Insurance Providers Payer Name Payer Address Payer Phone Subscriber Number Group Number Insured Name Patient Relationship to Insured Coverage Start Date Coverage End Date [facility] [address] [place], [place] [id number] MELISSA ELDER Self - patient is the insured Medical (General) History Medical History History ICD Code Denies [place],CVA,Lung disease,renal disease IDDM Pulmonary sarcoidosis--inactive Spherocytosis Colonoscopy [...] surgery for stones with Jazlyn Liriano at [facility]
--- OUTSIDE RECORDS SUMMARY | 2025-01-23 17:41 | XMS_ITS | Encounter Summary ---
Author Organization [facility] Address [address] [place] [address] Care Team Providers Care Process Improvement Analyst Name Role Phone Unavailable Primary Care Provider Unavailabl e Encounter Details Date Type Department Care Team (Late st Contact Info) Description 01/18/2025 Telephone [facility] [address] [place] [address] Physician, Pcp Unknown Social History Tobacco Use Types Packs/Day Years Used Date Smoking Tobacco: Never Assessed Sex and Gender Information Value Date Recorded Sex Assigned at Not on file Legal Sex Male 7:48 PM EST Gender Identity Not on file Sexual Orientation Not on file documented as of this encounter Plan of Treatment Not on file documented as of this encounter Visit Diagnoses Not on filedocumented in this encounter
--- OUTSIDE RECORDS SUMMARY | 2025-01-23 17:42 | XMS_ITS ---
Author Organization [facility] Address [address] [place] [address] Care Team Providers Care Counter Weigher Name Role Phone MARC HERNANDEZ Primary Care Provider Ernesto Beck [phone] REASON FOR VISIT left message with answering service Encounters Encounter Location Date Provider Diagnosis [facility] [address] [place] [address] 10/03/2024 Ernesto Wu Plan Of Treatment Next Appt Details Provider Name:Ernesto Wu , 04/04/2025 02:20:00 PM, [address], [address], [place], [address], Progress Notes * MELISSA HUNT KDOB:[birth year] (79 yo M)Acc No.[id number]:10/03/2024 Patient:?MELISSA HUNT :1945???Age:79 Y???Sex:Male Address:[address] [place] [address] [place] [address] * true * Date:? Generated for Printi doreen/Lila/eTransmitting on:?01/23/2025 05:41 PM EDT
--- OUTSIDE RECORDS SUMMARY | 2025-01-23 17:42 | XMS_ITS ---
Author Organization [facility] Address [address] [place] [address] Care Team Providers Care Stove Tender Name Role Phone MARC HERNANDEZ Primary Care Provider Ernesto Beck [phone] REASON FOR VISIT medication change. /procedure end of month/waiting on pt call back Encounters Encounter Location Date Provider Diagnosis [facility] [address] [facility] [address] [place] [address] 09/12/2024 Ernesto Wu Plan Of Treatment Next Appt Details Provider Name:Ernesto Wu , 04/04/2025 02:20:00 PM, [address] [facility], [address], [place], [address], Progress Notes * MELISSA HUNT KDOB:[birth year] (79 yo M)Acc No.[id number]:09/12/2024 Patient:?MELISSA HUNT :1945???Age:79 Y???Sex:Male Address:[address] [address] [place] [address] * true * Date:? Generated for Printi doreen/Lila/eTransmitting on:?01/23/2025 05:41 PM EDT
--- OUTSIDE RECORDS SUMMARY | 2025-01-23 17:42 | XMS_ITS | Clinical Summary ---
Author Organization [facility], Address [address] [place] [address] [place] [address] Phone Care Team Providers Care Gold Blower Name Role Phone Stuart Will NP Primary Care Provider [phone] Allergies Active Allergy Reactions Criticality Noted Date [...] 12/22/2020 Uric acid renal calculus 12/22/2020 Immunizations Immunization Administration Dates Next Due Influenza Whole 09/19/2018 [...] Diabetes: Visual Foot Exam 11/19/2021 Influenza Vaccine (Season Ended) 2025 09/19/2018 Pneumococcal Vaccine: 50+ Years Completed 02/10/2019, 11/11/2018, 12/27/2017 Pneumococcal Vaccine: Peds ( 0 to 5 Years) and At-Risk Patients (6 to 49 Years) Discontinued 02/10/2019, 11/11/2018, 12/27/2017 Hepatitis B Vaccine Aged Out No longe r eligible based on patient's age to complete this topic [place] [address] [place] [address] Care Teams Gold Blower Relationship Specialty Start Date End Date Stuart Will NP [facility] [place] [address] PCP - General Nurse Practitioner 12/06/20
== END 2025-01-23 15:26 | disposition home or self-care (01) ==
PROVIDERS: PCP Nurse Practitioner Family; Visit Provider Physician Assistant
DX: S46.911A Strain of unspecified muscle, fascia and tendon at shoulder and upper arm level, right arm, initial encounter (principal)

== ENCOUNTER → 2025-01-23 14:27 | Outpatient (BNVA) | payer BC, SELFPAY | PROVIDERS: PCP Nurse Practitioner Family; Visit Provider Physician Assistant ==

== ENCOUNTER 2025-01-26 14:15 | Outpatient (REF) | payer BC, SELFPAY ==
--- OUTSIDE RECORDS SUMMARY | 2025-01-26 14:36 | XMS_ITS ---
Author Organization [facility] Address [address] [place] [address] Care Team Providers Care Pouch Maker Name Role Phone Stuart Lozano Primary Care Provider Unav ailable Black, Marychuy Unavailable [phone] REASON FOR VISIT rx for AFO Encounters Encounter Location Date Provider Diagnosis [address] [address] 08/22/2024 Marychuy Black Plan Of Treatment Next Appt Details Provider Name:Marychuy Archer Warren , 03/15/2025 02:30:00 PM, [address] [place], [address], Progress Notes * Casey SEWELL KDOB:[birth year] (79 yo M)Acc No.[id number]:08/22/2024 Patient:?Casey SEWELL :1945???Age:79 Y???Sex:Male Address:[address] [place] [address] [place], [address] * true * Date:? Generated for Printi ng/Faxing/eTransmitting on:?01/26/2025 02:35 PM EDT
--- OUTSIDE RECORDS SUMMARY | 2025-01-26 14:36 | XMS_ITS ---
Author Organization [facility] Address [address] [facility] [facility] [address] [place] [address] Care Team Providers Care Central Office Mechanic Name Role Phone MARC HERNANDEZ Primary Care Provider Ernesto Beck [phone] REASON FOR VISIT screening, hx polyps,hx colon ca Encounters Encounter Location Date Provider Diagnosis [facility] [place] [address] [place], [place] [phone] 10/09/2024 Ernesto Wu Plan Of Treatment Next Appt Details Provider Name:Ernesto Wu , 04/04/2025 02:20:00 PM, [address] [facility], [address], [place], [address], Progress Notes * MELISSA HUNT KDOB:[birth year] (79 yo M)Acc No.[id number]:10/09/2024 COLON WITH MAC Patient:?MELISSA HUNT Provider:?Ernesto Wu MD :1945???Age:79 Y???Sex:Male David e:10/09/2024 Address:[address] [place], [place] [address] Pcp:MARC HERNANDEZ Subjective: * Chief Complaints: * [...] MD Date:? 024 Generated for Alfredo logan/Lila/Dakotaitting on:?01/26/2025 02:36 PM EDT
--- OUTSIDE RECORDS SUMMARY | 2025-01-26 14:36 | XMS_ITS ---
Author [facility] Address [address] [place] [address] Care Team Providers Care Proof Inspector Name Role Phone Stuart Lozano Primary Care Provider Unav ailable Black, Marychuy Unavailable [phone] Allergies Allergen (clinical drug ingredient) Drug/Non Drug Allergy documented on EMR Reaction Allergy Type Onset Date Status 12 Hour Nasal [place] Unknown Drug Allergy Active Dust Mites Unknown [...] Twice a day for 30 days Active [place] 3-6-9 Not-Jd ng Timolol Maleate PF N [...] as directed Orally Active Vitamin D Active N57-Cwsvtc Active Vitamin D3 Active Social History Tobacco Use: Social History Observation Description Date Details (start date - stop date) Never Smoker NA - NA Tobacco Use/Smoking Question Answer Notes Are you a: nonsmoker Additional Findings: Tobacco Non-User Current no n-smoker Tobacco use other than smoking: Question Answer Notes Are you an other tobacco user? No Vital Signs Blood pressure systolic 110 mm Hg 11/23/19 25 Blood pressure diastolic 65 mm Hg 025 Height 5ft 11in in 11/23/2024 Weight 215 lbs 11/23/2024 BMI 29.98 kg/m2 11/23/2024 Procedures Procedure Date Ordered Date Performed Result Body Sit e 03408-DRARZLS NAIL, 6 OR MORE 11/23/2024 N/A 52245-MDRO SKIN LESIONS, OVER 4 11/23/2024 N/A Encounters Encounter Location Date Provider Diagnosis [facility] [address] [place] [address] 11/23/2024 Marychuy Black Type 1 diabetes mellitus [...] days Pending Test Test Name Order Date 18532-TMKCDLD NAIL, 6 OR MORE 11/23/2024 66315-VXUU SKIN LESIONS, OVER 4 11/23/19 25 Next Appt Details Follow Up: prn, Reason: Provider Name:Marychuy Kelley , 03/15/2025 02:30:00 PM, [address] [place] [address], [address], Procedure Notes * Category Sub-Category Detail Notes [...] of a nail nipper and/or dremel-type grinder set up operator external, to a more viable healthy nail plate [...] to maintain effectiveness in symptomatic relief - 39262 Keratoma Treatment Parring or Cutting o f [...] instrumentation by the physician of record - 99333 Progress Notes * Casey SEWELL KDOB:[birth year] (79 yo M)Acc No.[id number]:11/23/2024 Progress Note Patient:?Casey SEWELL Provider:?Marychuy Kelley DPM :1945???Age:79 Y???Sex:Male David e:11/23/2024 Address:[address] [place] [address] [facility] Pcp:IVORY Mattson Subjective: * Chief Complaints: * [...] kidney disease 04/2020 * Hospital[facility]ic [facility] - saw minerva bonilla [facility]- Bladder [facility] Possible Heart Attack/Stress Anxiety/Covid 07/31 [...] no. ?Marital status: single. 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 * Medications:?ZyppryL47-Qplmj e Vitamin D3 Resveratrol Flax Seed Oil Vitamin B Complex - Tablet as directed Orally Berberine HCI 500 MG Capsule as directed Orally Vitamin D HumuLIN N Zinc Vitamin C 500 MG Capsule as directed Orally Once a day Turmeric AFO-Hinged as directed Wear Daily Taking M50-Cyjiax Taking Vitamin D3 Taking Resveratrol Taking Flax [...] Release 1 tablet Orally Once a day [place] 3-6-9 Nattokinase 100 MG Capsule as directed [...] 1 tablet Orally Once a day Not-Taking/PRN [place] 3-6-9 Not-Taking/PRN Nattokinase 100 MG Capsule as [...] 30 days, 280, Refills 3.?? 3.?Tinea unguium?Procedure: 20003-IRTLSRL NAIL, 6 OR MORE * Procedures:?Debride Nail [...] of a nail nipper and/or dremel-type grinder set up operator external, to a more viable healthy nail plate [...] to maintain effectiveness in symptomatic relief - 96669.?Keratoma Treatment:?Parring or Cutting of Benign Hyperkeratotic Lesion(s)?(-57) [...] instrumentation by the physician of record - 04137.? * Procedure Codes:?07589 TRIM SKIN LESIONS, OVER 4, Modifiers: XS 42677 DEBRIDE NAIL, 6 OR MORE, Modifiers: XS [...] Kelley DPM Date:?2024 Generated for Alfredo logan/Lila/eTransmitting on:?01/26/2025 02:35 PM EDT History and Physical Notes * [...]
--- OUTSIDE RECORDS SUMMARY | 2025-01-26 14:36 | XMS_ITS ---
Author Organization [facility] Address [address] [place] [address] Care Team Providers Care Historic Clothing And Costume Maker Name Role Phone Stuart Lozano Primary Care Provider Unav ailable Black, Marychuy Unavailable [phone] REASON FOR VISIT Balance Encounters Encounter Location Date Provider Diagnosis [address] [address] 11/23/2024 Marychuy Black Plan Of Treatment Next Appt Details Provider Name:Marychuy Archer Warren , 03/15/2025 02:30:00 PM, [address] [place], [address], Progress Notes * Casey SEWELL KDOB:[birth year] (79 yo M)Acc No.[id number]:11/23/2024 Patient:?Casey SEWELL :1945???Age:79 Y???Sex:Male Address:[address] [place] [address], [address] * true * Date:? Generated for Printi doreen/Lila/eTransmitting on:?01/26/2025 02:36 PM EDT
--- OUTSIDE RECORDS SUMMARY | 2025-01-26 14:36 | XMS_ITS | Patient Health Record ---
[facility] Address [address] [place] [address] Care Team Providers Care Residence Supervisor Name Role Phone Stuart Lozano Primary Care Provider Unav ailable Black, Marychuy Unavailable [phone] Allergies Allergen (clinical drug ingredient) Drug/Non Drug Allergy documented on EMR Reaction Allergy Type Onset Date Status 12 Hour Nasal [place] Unknown Drug Allergy Active Dust Mites Unknown [...] Multivitamins Not-Jacek hensley Ascorbic Acid Not-Jacek hensley M36-Xbzhsd Active Aspirin 81 MG 1 tablet Orally Once a day for 30 day(s) Not-Taking Vitamin D3 Active Resveratrol Active Lovastatin Not-Takin g Magnesium Not-Taking Flax Seeds - as directed Orally Not-Taking Aspirin 81 81 MG 1 tablet Orally Once a day Not-Taking Tie Siding 3-6-9 Not-Taki ng Immunizations Vaccine Route Administration [...] Problem Acquired hammer toe of right foot (4606062019977155) Other hammer toe(s) (acquired), right foot (M20.41) Active confirmed Problem Acquired hammer toe of left foot (0256440398935510) Other hammer toe(s) (acquired), left foot (M20.42) Active confirmed Problem Non-pressure ulcer lower limb (835302435) Non-pressure chronic ulcer of other part of right foot limited to breakdown of skin (L97.511) Active confirmed Problem Polyneuropathy due to diabetes mellitus type I (829132765) 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 Problem Hammer toe (770440032) Hammer toe of left foot (M20.42) Active confirmed Problem 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 (236996403632545) Charcot foot due to diabetes mellitus (E11.610) Active confirmed Problem Unsteady gait (51749696) Unsteady gait (R26.81) Active confirmed Problem Ankle ulcer (733517589) Skin ulcer of right ankle, limited to breakdown of skin (L97.311) Active confirmed Problem Ulcer of toe of right foot (disorder) (02689368204318487) Skin ulcer of toe of right foot, limited to breakdown of skin (L97.511) Active confirmed Problem Acquired equinovarus deformity (57762476) 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) Active confirmed Problem 05548543956450429 Skin ulcer of toe of left foot, limited to breakdown of skin (L97.521) Active confirmed Vital Signs Blood pressure diastolic 65 mm Hg 11/23/2024 Height 5ft 11in in 11/23/2024 Blood pressure systolic 110 mm Hg 11/23/2024 Weight 215 lbs 11/23/2024 BMI 29.98 kg/m2 11/23/2024 Procedures Procedure Date Ordered Date Performed Result Body Sit e 81515-EALOEXC NAIL, 6 OR MORE 05/11/2024 N/A 42291-TYNT SKIN LESIONS, OVER 4 05/11/2024 N/A 94974-DHTSBGX NAIL, 1-5 08/17/2024 N/A 59877-Ltemhnof Plate 08/17/2024 N/A 83748-Afspaqro Plate Each Additional 08/17/2024 N/A 31172-DAEC SKIN LESIONS, OVER 4 08/17/2024 N/A 32824-LGQNFQL NAIL, 6 OR MORE 11/23/2024 N/A 87215-EDRM SKIN LESIONS, OVER 4 11/23/2024 N/A Encounters Encounter Location Date Provider Diagnosis [address] [address] 05/11/2024 Marychuy Black Type 1 diabetes mellitus with diabetic polyneuropathy E10.42 and Tinea unguium B35.[address] [address] 08/17/2024 Marychuy Black Type 1 diabetes mellitus with diabetic polyneuropathy E10.42 ; Tinea unguium B35.1 ; Ingrown nail L60.0 and Skin ulcer of toe of left foot, limited to breakdown of skin L97.[address] [address] 11/23/2024 Marychuy Black Type 1 diabetes mellitus with diabetic polyneuropathy E10.42 ; Xerosis of skin L85.3 and Tinea unguium B35.[address] [address] 04/18/2024 Marychuymerline Kelley [address] [address] 08/22/2024 Marychuymerline Kelley [address] [address] 11/23/2024 Marychuy Black Assessments Encounter Date Diagnosis [...] Test Name Order Date Hemoglobin A1c 12/02/2015 74435-GNHIIZZ NAIL, 6 OR MORE 11/23/2024 92761-NXXBQXV NAIL, 6 OR MORE 05/11/2024 55509-UFMSXOR NAIL, 6 OR MORE 07/08/2023 15869-GMJMBFV NAIL, 6 OR MORE 10/21/2023 73914-BUETDEZ NAIL, 6 OR MORE 12/02/2020 55754-AYVYJRM NAIL, 6 OR MORE 03/13/2021 56627-QZVZCRG NAIL, 6 OR MORE 06/09/2021 64541-VXPKYYH NAIL, 6 OR MORE 09/08/2021 95264-BOZXTVZ NAIL, 6 OR MORE 01/30/2022 91505-OMOVTRW NAIL, 6 OR MORE 06/22/2022 50258-PUIJVQA NAIL, 6 OR MORE 09/28/2022 46749-AHMKNOY NAIL, 6 OR MORE 12/28/2022 49692-QEXXJXJ NAIL, 6 OR MORE 04/05/2023 34648-OBZYUCZ NAIL, 6 OR MORE 10/01/2011 83503-KBYPDTO NAIL, 6 OR MORE 12/03/2011 52681-GNGIYIN NAIL, 6 OR MORE 03/03/2012 73468-ZEMYZQB NAIL, 6 OR MORE 06/02/2012 43989-ZHMNFLU NAIL, 6 OR MORE 11/03/2012 30611-MIHRYKC NAIL, 6 OR MORE 01/23/2013 04278-ACBHDCY NAIL, 6 OR MORE 04/03/2013 59649-XXFDVRK NAIL, 6 OR MORE 06/28/2013 63751-ATACZKT NAIL, 6 OR MORE 09/13/2013 58583-GVIRCOE NAIL, 6 OR MORE 12/13/2013 78578-SLVYJOZ NAIL, 6 OR MORE 03/22/2014 35446-PICIZPI NAIL, 6 OR MORE 06/21/2014 02335-NXGTTLC NAIL, 6 OR MORE 09/20/2014 59833-DDIOOOF NAIL, 6 OR MORE 12/06/2014 61028-BCIMPXX NAIL, 6 OR MORE 02/21/2015 74703-SEDRBOD NAIL, 6 OR MORE 05/13/2015 89118-FUJEPKB NAIL, 6 OR MORE 09/09/2015 65329-WFLLNCL NAIL, 6 OR MORE 12/02/2015 63752-MUWAEOT NAIL, 6 OR MORE 02/24/2016 04976-PVVCXCM NAIL, 6 OR MORE 06/01/2016 71813-XZPLPCY NAIL, 6 OR MORE 08/27/2016 70970-AHYBWYD NAIL, 6 OR MORE 12/07/2016 64798-IPZODOV NAIL, 6 OR MORE 03/11/2017 89295-PHJAXWS NAIL, 6 OR MORE 06/24/2017 30012-ARPANEI NAIL, 6 OR MORE 09/27/2017 58298-KDBGZTI NAIL, 6 OR MORE 12/27/2017 20846-WRRERKK NAIL, 6 OR MORE 06/02/2018 83006-VMCALTF NAIL, 6 OR MORE 08/25/2018 95542-QOEHIDS NAIL, 6 OR MORE 11/24/2018 03308-PWOTTKF NAIL, 6 OR MORE 03/09/2019 30337-MGMCJKZ NAIL, 6 OR MORE 06/05/2019 21077-PJJIILD NAIL, 6 OR MORE 09/18/2019 38119-QWCCPXP NAIL, 6 OR MORE 03/11/2020 83207-KDOHIIN NAIL, 6 OR MORE 06/13/2020 71958-PUSETRH NAIL, 6 OR MORE 09/23/2020 70859-QIHRARA NAIL, 1-5 01/20/2024 66484-TJVKLHQ NAIL, 1-5 08/17/2024 37796-Mxjy Destruction, -14 09/08/2021 93657-Vklz Destruction, -14 06/09/2021 87713-Obqj Destruction, -14 03/11/2020 85929-Ntmz Destruction, -14 06/05/2019 94517-Odzl Destruction, -14 09/18/2019 30707-Zklw Destruction, -14 03/09/2019 98141-Mdai Destruction, -14 05/13/2015 63764-Fold Destruction, -14 02/21/2015 72948-Lduo Destruction, -14 12/06/2014 08781-Vlfy Destruction, 10-2409/20/2014 09795-Itbd Destruction, 10-2406/21/2014 20162-Vrav Destruction, 10-2403/22/2014 96673-Bvge Destruction, 10-2412/13/2013 94180-Bkgt Destruction, 10-2409/13/2013 03119-Cctb Destruction, 10-2406/28/2013 30732-Avmt Destruction, 10-2404/03/2013 55524-Peup Destruction, 10-2401/23/2013 02752-Uevg Destruction, 10-2411/03/2012 74713-Xofq Destruction, 10-2406/02/2012 61550-Okju Destruction, 10-2410/01/2011 32784-Vjva Destruction, 10-2403/03/2012 59761-Tjaa Destruction, 10-2412/03/2011 99235-Jabqqcql Plate 03/03/2012 31843-Oqpffgdf Plate 12/03/2011 27831-Hejokkjw Plate 06/02/2012 62094-Tmqopgom Plate 01/23/2013 64227-Deqogwhz Plate 04/03/2013 12925-Iramurll Plate 06/28/2013 37235-Oocjbajf Plate 09/13/2013 35537-Ihmeqwyd Plate 12/13/2013 27446-Jeqljwlw Plate 03/22/2014 25520-Vtffdezm Plate 06/21/2014 44716-Bolcvaxl Plate 09/20/2014 16416-Gfaudwcp Plate 12/06/2014 05895-Hrqlwuay Plate 02/21/2015 36253-Rqokllom Plate 05/13/2015 52234-Xldgnnml Plate 12/27/2017 94271-Tysyywdq Plate 06/05/2019 70031-Stlkyhbn Plate 11/24/2018 91281-Djedgkao Plate 03/09/2019 08522-Ptussumg Plate 08/25/2018 37873-Ufbqyejg Plate 09/18/2019 69998-Wnwoweuy Plate 03/11/2020 60854-Frlkoxsi Plate 09/27/2017 46771-Baygpuqn Plate 12/07/2016 51607-Rceckqmk Plate 08/27/2016 79398-Pzsvwdzh Plate 06/01/2016 65820-Napqoasj Plate 02/24/2016 33577-Mudradhe Plate 12/02/2015 95901-Tirtjevj Plate 11/03/2012 83225-Lftadmsj Plate 09/09/2015 33757-Qhhixumj Plate 06/09/2021 22924-Lahbxppt Plate 06/13/2020 02440-Trboberm Plate 09/08/2021 18212-Bucqicsr Plate 03/13/2021 51576-Atpjozyx Plate 09/23/2020 73663-Zvbndsco Plate 01/30/2022 42034-Bsvwrsqp Plate 06/22/2022 01266-Sgfczrfw Plate 08/17/2024 11520-Fegzqbps Plate 01/20/2024 48788-Mrvpkozm Plate Each Additional 09/2022 51506-Dcusnftv Plate Each Additional 04/2024 35752-Egaioyea Plate Each Additional 76820-Fzwuqfvs Plate Each Additional 80076-Txeuoolm Plate Each Additional 12/2020 79433-Efcqesgu Plate Each Additional 87812-Pcihbroj Plate Each Additional 95797-Wkjrujpz Plate Each Additional 71602-Tixdiejk Plate Each Additional 81979-Ppyhnplx Plate Each Additional 02907-Cfafwcta Plate Each Additional 34440-Boyetydm Plate Each Additional 18244-Uvcxgxht Plate Each Additional 96376-Mleajlbl Plate Each Additional 27081-Gsvebbfi Plate Each Additional 06/2019 86014-Jkptofex Plate Each Additional 10/2019 06909-Jxqtunkr Plate Each Additional 84958-Lgnqaimd Plate Each Additional 85131-Gnqlxlcx Plate Each Additional 98111-Zvlvvaze Plate Each Additional 12/2014 21800-Qrwgfpgm Plate Each Additional 25681-Vpbbdlgl Plate Each Additional 01570-Vlybuglb Plate Each Additional 08/2014 26412-Frrglztq Plate Each Additional 08/2014 64714-Prudutqy Plate Each Additional 09/2014 83652-Iddldqlg Plate Each Additional 02/2014 61098-Horkvrfh Plate Each Additional 01/2013 14686-Yymghhxu Plate Each Additional 76981-Heuhknyj Plate Each Additional 34086-Eqjqjhfi Plate Each Additional 39327-Gqtziyfk Plate Each Additional 26628-Lydoukpc Plate Each Additional 69046- Debride <25 sq cm 06/13/2020 48088- Debride <25 sq cm 04/05/2023 24416 I&D ABSCESS- SIMPLE,SINGLE 013 22802 I&D ABSCESS- SIMPLE,SINGLE 013 10107-FRSO SKIN LESIONS, OVER 4 01/24/20 13 72233-DMVU SKIN LESIONS, OVER 4 11/03/19 13 85193-OOWF SKIN LESIONS, OVER 4 04/03/20 13 94078-XWSF SKIN LESIONS, OVER 4 06/28/20 13 60083-TZFG SKIN LESIONS, OVER 4 09/13/20 13 67501-ZDGK SKIN LESIONS, OVER 4 12/14/19 14 47758-GGFQ SKIN LESIONS, OVER 4 03/22/20 14 59043-OSPK SKIN LESIONS, OVER 4 06/21/20 14 21128-PQIP SKIN LESIONS, OVER 4 09/20/20 14 91615-ITCC SKIN LESIONS, OVER 4 12/06/19 15 25029-FQQB SKIN LESIONS, OVER 4 02/22/20 15 67443-ULTA SKIN LESIONS, OVER 4 05/13/20 15 69966-BSTD SKIN LESIONS, OVER 4 06/13/20 20 46422-SGSP SKIN LESIONS, OVER 4 09/23/20 20 29519-YHXN SKIN LESIONS, OVER 4 03/11/20 20 06756-HCUD SKIN LESIONS, OVER 4 09/18/20 19 94175-XOVX SKIN LESIONS, OVER 4 03/09/20 19 83848-MAFV SKIN LESIONS, OVER 4 06/05/20 19 13342-LCPF SKIN LESIONS, OVER 4 11/24/19 19 39815-HGAT SKIN LESIONS, OVER 4 08/25/20 18 47270-DCRB SKIN LESIONS, OVER 4 12/28/19 18 60496-XWVU SKIN LESIONS, OVER 4 06/02/20 18 01237-TZKD SKIN LESIONS, OVER 4 09/27/20 17 57675-DIGT SKIN LESIONS, OVER 4 06/24/20 17 19011-OTGD SKIN LESIONS, OVER 4 12/07/19 17 98513-TRDO SKIN LESIONS, OVER 4 03/11/20 17 45251-UYYD SKIN LESIONS, OVER 4 08/27/20 16 56660-XXQT SKIN LESIONS, OVER 4 06/01/20 16 09467-MVWJ SKIN LESIONS, OVER 4 02/24/20 16 18189-NBOR SKIN LESIONS, OVER 4 12/02/19 16 76206-WURB SKIN LESIONS, OVER 4 09/09/20 15 08978-HPJN SKIN LESIONS, OVER 4 04/05/20 23 60215-UUCV SKIN LESIONS, OVER 4 07/08/20 23 65900-ZQAV SKIN LESIONS, OVER 4 12/29/19 23 17610-PFHZ SKIN LESIONS, OVER 4 09/28/20 22 33966-HIRL SKIN LESIONS, OVER 4 06/22/20 22 41047-HJFY SKIN LESIONS, OVER 4 01/31/20 22 23583-GGUF SKIN LESIONS, OVER 4 09/08/20 21 88873-IBPA SKIN LESIONS, OVER 4 06/09/20 21 04673-MXSR SKIN LESIONS, OVER 4 12/02/19 21 03457-DUFB SKIN LESIONS, OVER 4 03/13/20 21 47512-ZPEG SKIN LESIONS, OVER 4 08/17/20 24 68563-ICKM SKIN LESIONS, OVER 4 11/23/19 25 87099-QBBD SKIN LESIONS, OVER 4 05/11/20 24 35123-DWZT SKIN LESIONS, OVER 4 01/20/20 24 72273-ZNJI SKIN LESIONS, OVER 4 10/21/19 24 94911-NMEI SKIN LESIONS, 2 TO 4 06/02/20 12 61785-JDEM SKIN LESIONS, 2 TO 4 03/03/20 12 45568-NMNF SKIN LESIONS, 2 TO 4 12/03/19 12 31082-CSQT SKIN LESIONS, 2 TO 4 10/01/20 11 Next Appt Details Provider Name:Marychuy Kelley , 03/15/2025 02:30:00 PM, [address] [place], [address], Insurance Providers Payer Name Payer Address Payer Phone Subscriber Number Group Number Insured Name Patient Relationship to Insured Coverage Start Date Coverage End Date [facility] [address] [place] [address] [phone] [id number] Casey Ulrich Self - patient is the [...] kidney disease 04/2020 Hospitalization History Reason Date(Month/Year) [facility]- Possible Heart Attack/Stress Anxiet y/Covid 07/31 [facility]- Bladder [facility] Scan [facility]- chest pain 10/31 [facility]- Pressure wound right ankle - [facility]- chest pain 10/2015
--- OUTSIDE RECORDS SUMMARY | 2025-01-26 14:36 | XMS_ITS | Encounter Summary ---
Author Organization [facility] Address [address] [place] [address] Care Team Providers Care Weight Shifter Name Role Phone Stuart Will ROLL FORMING MACHINE OPERATOR Primary Care Provider + [phone] Reason for Referral * Consultation (Routine) - Authorized Specialty Diagnoses / Procedures Referred By Contlazarus t Referred To Contact Cardiology Diagnoses SOB (shortness of breath) Other chest pain Stuart Will NP [address] [place], [place] Phone: tel: fax: [address] [place] [address] Phone: tel: fax: Referral ID Status Reason Start Date Expiration Date Visits Requested Visits Authorized [id number] Authorized Specialty Services Required 01/25/2025 01/25/2026 1 1 Reason for Visit * Reason Onset Date Comments Referral 01/25/2025 Received routine paper referral - January Encounter Details Date Type Department Care Team (Late st Contact Info) Description 01/25/[address] [facility] Cardiology [facility] [address] [place] [address] Stuart Will NP [address], [place] Referral (Received routine paper referral - January) Social History Tobacco Use Types Packs/Day Years Used Date Smoking Tobacco: Never Assessed Sex and Gender Information Value Date Recorded Sex Assigned at Not on file Legal Sex Male 7:48 PM EST Gender Identity Not on file Sexual Orientation Not on file documented as of this encounter Plan of Treatment Upcoming Encounters Date Type Department Care Team (Late st Contact Info) Description 08/21/2025 1:30 PM EST Office Visit [facility] Cardiology [address] [place] [address] Stuart Hernandez MD [address] [place] [address],[address] [place] [place] [address] Scheduled Referrals Name Type Priority Associated Diagnoses Order Schedule Ambulatory referral to Cardiology Outpatient Referral Routine SOB (shortness of breath) Other chest pain 1 Occurrences starting 01/25/2025 until 01/25/2026 documented as of this encounter Visit Diagnoses Diagnosis SOB (shortness of breath)- Primary Shortness of breath Other chest pain documented in this encounter Care Teams Weight Shifter Relationship Specialty Start Date End Date Stuart Will NP [address] [place] [address] PCP - General Family Medicine 01/25/25 documented as of this encounter
--- OUTSIDE RECORDS SUMMARY | 2025-01-26 14:36 | XMS_ITS | Patient Health Record ---
Author Organization [facility] Address [address] [place] [address] Care Team Providers Care Cloth Wire Weaver Name Role Phone MARC HERNANDEZ Primary Care Provider Ernesto Beck [phone] Allergies No Known Allergies Reason For Referral No Information Medications Medication SIG (Take, Route, Frequency, Duration) Notes Start Date End Date Status Dicyclomine HCl 10 MG 1 or 2 capsules Or ally Every 6 hours as needed for abdominal discomfort/cramps for 30 day(s) 10/17/2023 Active Cephalexin 500 MG TAKE 1 CAPSULE BY [facility] TWICE A DAY FOR 10 DAYS Oral [...] Problem Status W/U Status Risk Notes Problem 601163766 Encounter for screening for malignant neoplasm of colon (Z12.11) Active confirmed Problem 768437382 History of adenomatous polyp of colon (Z86.010) Active confirmed Problem 165841858 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 Problem 855071456383543 Preprocedural examination (Z01.818) Active confirmed Problem 558078688 History of colon cancer (Z85.038) Active confirmed Problem 30489781 Constipation, unspecified constipation type (K59.00) Active confirmed Problem Diverticulosis of colon (727120110) Diverticulosis of colon (K57.30) Active confirmed Problem 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) Active confirmed Vital Signs Temperature 97.7 degrees Fahrenheit 03/08/2024 Blood pressure diastolic 00 mm Hg 03/08/2024 Height 71.5 in 03/08/2024 Blood pressure systolic 000 mm Hg 03/08/2024 Weight 214 lbs 03/08/2024 BMI 29.43 kg/m2 03/08/2024 Encounters Encounter Location Date Provider Diagnosis [facility] [address] [place] [address] 03/08/2024 Ernesto Wu History of adenomato us polyp of colon Z86.010 ; Preprocedural examination Z01.818 ; Encounter for screening for malignant neoplasm of colon Z12.11 ; History of colon cancer Z85.038 and Constipation, unspecified constipation type K59.00 [facility] [address] [place] [address] 09/12/2024 Ernesto Wu [facility] [address] [place] [address] 10/03/2024 Ernesto Wu Assessments Encounter Date Diagnosis [...] Provider Name:Ernesto Wu , 04/04/2025 02:20:00 PM, [address] [place] [address], [address], [place], [address], Insurance Providers Payer Name Payer Address Payer Phone Subscriber Number Group Number Insured Name Patient Relationship to Insured Coverage Start Date Coverage End Date [facility] [address] [place], [place] [id number] MELISSA ELDER Self - patient is the insured Medical (General) History Medical History History ICD Code Denies VA,CVA,Lung disease,renal disease IDDM Pulmonary sarcoidosis--inactive Spherocytosis Colonoscopy [...]
--- OUTSIDE RECORDS SUMMARY | 2025-01-26 14:36 | XMS_ITS | Clinical Summary ---
Author Organization [facility] Address [address] [place] [address] Phone Care Team Providers Care Tapper Supervisor Name Role Phone Stuart Will NP Primary Care Provider Encounters Date Type Department Care Team Description 01/25/2025 [address]phone [facility] [address] [place] [address] Stuart Will NP 01/25/2025 Telephone [facility] [address] [facility] [address] [place] [address] Stuart Will NP Referral (Received routine paper referral - January) 01/18/2025 Telephone [facility] [address] [place] [address] Physician, Pcp Unknown from Last 3 Months Social History Tobacco Use Types Packs/Day Years Used Date Smoking Tobacco: Never Assessed Sex and Gender Information Value Date Recorded Sex Assigned at Not on file Legal Sex Male 7:48 PM EST Gender Identity Not on file Sexual Orientation Not on file Plan of Treatment Upcoming Encounters Date Type Department Care Team (Late st Contact Info) Description 08/21/2025 1:30 PM EST Office Visit [facility] [address] [place] [address] Stuart Hernandez MD [address] [place] [address] [address] [id number] Health Maintenance Due Date Last Done Comments DTaP,Tdap,and Td Vaccines (1 - Tdap) 1965 Pneumococcal Vaccine: 50+ Ye ars (1 of 1 - PCV) 1996 Zoster Vaccines (1 of 2) 1996 RSV Immunization Adult Patie nts (1 - 1-dose 75+ series) 2021 COVID-19 Vaccine (1 - 2023-2 5 season) 2024 Cholesterol Screening [...] patient's age to complete this topic Insurance MEDICARE [facility] Care Teams Tapper Supervisor Relationship Specialty Start Date End Date Stuart Will NP [address] [place] [address] PCP - General Family Medicine 01/25/25
--- OUTSIDE RECORDS SUMMARY | 2025-01-26 14:37 | XMS_ITS ---
Author Organization [facility] Address [address] [place] [address] Care Team Providers Care Media Traffic Manager Name Role Phone MARC HERNANDEZ Primary Care Provider Ernesto Beck [phone] REASON FOR VISIT medication change. /procedure end of month/waiting on pt call back Encounters Encounter Location Date Provider Diagnosis [facility] [address] [facility] [address] [place] [address] 09/12/2024 Ernesto Wu Plan Of Treatment Next Appt Details Provider Name:Ernesto Wu , 04/04/2025 02:20:00 PM, [address] [facility], [address], [place], [address], Progress Notes * MELISSA HUNT KDOB:[birth year] (79 yo M)Acc No.[id number]:09/12/2024 Patient:?MELISSA HUNT :1945???Age:79 Y???Sex:Male Address:[address] [place] [address] [place] [address] * true * Date:? Generated for Printi doreen/Lila/eTransmitting on:?01/26/2025 02:36 PM EDT
--- OUTSIDE RECORDS SUMMARY | 2025-01-26 14:37 | XMS_ITS | Encounter Summary ---
Author Organization [facility] Address [address] [place] [address] Care Team Providers Care Bench Assembly Inspector Name Role Phone Stuart Will ARMY SENIOR OFFICER Primary Care Provider Encounter Details Date Type Department Care Team (Late st Contact Info) Description 01/25/[address] [place] [address] Stuart Will NP [address] [place], [place] Social History Tobacco Use Types Packs/Day Years [...] Description 08/21/2025 1:30 PM EST Office Visit [address] [place] [address] Stuart Hernandez MD [address] [place] [address] documented as of this encounter Visit Diagnoses Not on filedocumented in this encounter Care Teams Bench Assembly Inspector Relationship Specialty Start Date End Date Stuart Will NP [address] [place] [address] PCP - General Family Medicine 01/25/25 documented as of this encounter
--- OUTSIDE RECORDS SUMMARY | 2025-01-26 14:37 | XMS_ITS ---
Author Organization [facility] Address [address] [place] [address] Care Team Providers Care Slag Production Worker Name Role Phone MARC HERNANDEZ Primary Care Provider Ernesto Beck [phone] REASON FOR VISIT left message with answering service Encounters Encounter Location Date Provider Diagnosis [facility] [address] [place] [address] 10/03/2024 Ernesto Wu Plan Of Treatment Next Appt Details Provider Name:Ernesto Wu , 04/04/2025 02:20:00 PM, [address], [address], [place], [address], Progress Notes * MELISSA HUNT KDOB:[birth year] (79 yo M)Acc No.[id number]:10/03/2024 Patient:?MELISSA HUNT :1945???Age:79 Y???Sex:Male Address:[address] [place] [address] [place] [address] * true * Date:? Generated for Printi doreen/Lila/eTransmitting on:?01/26/2025 02:36 PM EDT
--- OUTSIDE RECORDS SUMMARY | 2025-01-26 14:37 | XMS_ITS | Clinical Summary ---
Author Organization [facility], Address [address] [place] [address] [place] [address] Phone Care Team Providers Care Gristmiller Name Role Phone Stuart Will NP Primary Care Provider [phone] Allergies Active Allergy Reactions Criticality Noted Date [...] patient's age to complete this topic Insurance [place] [address] [place] [address] Care Teams Gristmiller Relationship Specialty Start Date End Date Stuart Will NP [facility] [place] [address] PCP - General Nurse Practitioner 12/06/20
[2025-01-26 16:18] LABS: MANUAL DIFF FLAG NO
[2025-01-26 16:23] LABS: Basophils Absolute Auto 0.1 X10*3/uL (0.0-0.2); Eosinophils Absolute Auto 0.6 X10*3/uL (0.0-0.4); Eosinophils Percent Auto 6.4 % (0-4); Hematocrit 39.4 % (42.0-52.0); Hemoglobin 14.2 g/dl (14.0-18.0); Imm Gran Abs Auto 0.03 X10*3/uL (0.00-0.03); Imm Gran Pct Auto 0.3 % (0.0-0.4); Lymphocytes Absolute Auto 2.9 X10*3/uL (1.2-4.9); Lymphocytes Percent Auto 31.3 % (20-40); Mean Corpuscular Hemoglobin 31.1 pg (27.0-33.0); Mean Corpuscular Volume 86.2 fL (80.0-98.0); Mean Platelet Volume 11.5 fL (9.4-12.4); Monocytes Percent Auto 11.1 % (2-11); Neutrophils Absolute Auto 4.6 x10*3/uL (2.0-8.3); Neutrophils Percent Auto 49.9 % (45-73); Platelet Count 389 X10*3/uL (160-400); Red Blood Count 4.57 X10*6/uL (4.60-5.80); Red Cell Distribution Width 13.2 % (11.0-16.0); White Blood Count 9.2 X10*3/uL (4.8-10.8)
[2025-01-26 16:52] LABS: B Type Natriuretic Peptide 57 pg/mL (<100)
[2025-01-26 16:54] LABS: Alanine Aminotransferase 16 U/L (0-40); Albumin Level 3.9 g/dL (3.5-5.0); Anion Gap 12 (12-20); Aspartate Amino Transferase 30 U/L (5-37); Bilirubin Total 1.9 mg/dL (0.0-1.0); Blood Urea Nitrogen 19 mg/dL (9-16); Calcium 9.9 mg/dL (8.4-10.2); Carbon Dioxide 23 mmol/L (22-29); Chloride 105 mmol/L (96-108); Estimated Glomerular Filt Rate > 60; Glucose Random 120 mg/dL (60-115); Magnesium 2.2 mg/dL (1.6-2.6); Potassium 4.3 mmol/L (3.3-5.1); Sodium 136 mmol/L (135-145); Total Protein 7.4 g/dL (6.5-8.0)
[2025-01-26 16:58] LABS: Estimated Average Glucose 114 mg/dL; Hemoglobin A1C 138.6913 umol/L; Hemoglobin A1c % 5.6 % (<6.0); Total Hemoglobin (HGBA1C) 3685.7631 umol/L
[2025-01-26 17:12] LABS: TSH reflex Free T4 0.96 uIU/mL (0.32-4.0)
[2025-01-26 19:09] LABS: Alkaline Phosphatase 74 U/L (39-117)
== END 2025-01-26 14:16 | disposition home or self-care (01) ==
LOC: HO.HMGCLDS 14:15
PROVIDERS: PCP Nurse Practitioner Family; Visit Provider Nurse Practitioner Family
DX: R06.02 Shortness of breath (principal); R60.9 Edema, unspecified; E11.9 Type 2 diabetes mellitus without complications
CPT/HCPCS: 36415; 80053; 83036; 83735; 83880; 84443; 85025

== ENCOUNTER 2025-01-26 14:42 | Outpatient (AMB) | payer BC, SELFPAY ==
--- NOTE | 2025-01-26 14:44 | MHC.OFFWIV ---
Intake Vital Signs 01/26/25 14:54 Height 5 ft 11 in Weight 202 lb 2 oz BMI 28.2 BP 98/72 Blood Pressure Location Rt brachial Position Sitting Respiration 16 Pulse 73 Pulse Source Pulse Oximeter Temp 98.1 F Temp Source Oral Pulse Oximetry (%) 97 Oxygen Delivery Method Room Air Intake Visit Reasons: EP dizzyness, sob, chest pressure Intake Note: patient here c/o SOB, Dizziness, and chest pressure Patient Tobacco Use Status: Never used Tobacco Bungy Jump Master Required: No Allergies penicillamine Allergy (Unknown, Verified 01/26/25 14:48) unknown Do you need a note to return to daycare/school/sports/work: No HPI HPI Comments History of Present Illness Details History of Present Illness - The patient is a 79-year-old male presenting with chronic symptoms of dizziness and shortness of breath. - He reports experiencing onset of symptoms in September with a subsequent CT scan 01/04/25 which showed severe coronary artery calcifications. - He has a history of coronary artery disease with previous recommendations to consult a security delivery specialist due to coronary artery calcifications. he has an appt at [facility] in August, he wants to see a specific Dairy Farm Manager at this practice and is on the wait list for an earlier appointment but he is worried about waiting that long to see someone and is asking how to see someone sooner. - The patient visited the ER on January 12 with normal tropinin levels and was advised to consider further cardiology consultation. - After stopping a ketogenic diet and increasing protein consumption, symptoms worsened, including dizziness, orthostatic changes, and brain fog. - He denies smoking, asthma, or COPD but experiences chronic shortness of breath, with concerns about potential post-COVID syndrome affecting his condition. - Today, he has filled out a release to have his records sent to [facility]. Physical Exam General: Cooperative, healthy appearing, comfortable, no acute distress and well developed Orientation: Patient oriented x3 Limitations: No limitations Head: Normal to inspection g Ears: Hearing grossly normal bilaterally Nose: Normal External nose present Face and sinus: Normal facial exam Eyes: Appearance normal, both eyes and all related structures Neck: Normal visual inspection and Yes full ROM Respiratory: Normal respiratory effort and able to speak in complete sentences. 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 Vitamin D deficiency Cholecystectomy planned Osteoarthritis History of colon cancer CKD (chronic kidney disease) Sarcoidosis Partial nontraumatic amputation of right foot PVD (peripheral vascular disease) Diabetic retinopathy Spherocytosis Skin cancer Peripheral neuropathy Spinal stenosis Renal stones Pulmonary sarcoidosis Diabetes Surgical History History of amputation of foot History of ureter repair H/O splenectomy S/P ureteral reimplantation History of surgical removal of pilonidal cyst History of tonsillectomy and adenoidectomy H/O right hemicolectomy Status post laser lithotripsy of ureteral calculus Hx of cholecystectomy Hx of colonoscopy Family History Mother Thyroid cancer Other Mental health disorder Social History Household Members: Friend(s) Housing: House Are you a primary caregivers homecare to a significant other at home: No Do you presently have visiting nurse or other home services: No Alcohol intake: never Patient Tobacco Use Status: Never used Tobacco e-Cigarette/Vaping Use: Never Used Second Hand Smoke Exposure: No Advance Directives Date on File: 12/02/23 service: No Current occupational status: employed and retired Cognitive needs: No Hearing needs: No Vision needs: No Review of Systems Const All systems reviewed & are unremarkable except as noted in HPI and below Physical Exam Vital Signs: Last Vital Signs Temp 98.1 F 01/26/25 14:54 Pulse 73 01/26/25 14:54 Resp 16 01/26/25 14:54 BP 98/72 01/26/25 14:54 Pulse Ox 97 01/26/25 14:54 Oxygen Delivery Method Room Air 01/26/25 14:54 BMI result Body Mass Index 28.2 Assessment & Plan Assessment & Plan (1) SOB (shortness of breath): Code(s): R06.02 - Shortness of breath Plan: Today, his VSS, he is not experiencing any concerning acute changes, chest pain, nausea, sweating, neck pain, arm pain, abdominal pain that radiates to his back, etc. We reviewed, in detail, acute changes and when to call 911. The primary focus is on managing the patient's cardiovascular symptoms, exacerbated possibly by known coronary artery calcifications and post-COVID syndrome. Given the delay in cardiology consultation at [facility], I recommended monitoring for acute changes and seeking care at [facility] if necessary symptoms develop, likely facilitating a quicker cardiology referral. Meanwhile, I have requested a referral by patients PCP to a security delivery specialist at [facility] to accelerate evaluation and diagnostics. The patient is advised on lifestyle modifications to manage symptoms and is aware of the importance of seeking immediate attention if condition escalates. Patient was informed and verbally consented to the use of an ambient scribe for clinic note documentation during this visit. Coding Level of Care Code Est Pt Level 3 (50529) Diagnoses SOB (shortness of breath) R06.02
[2025-01-26 14:54] VITALS: BP 98/72; PULSE 73; RESP 16; TEMP 36.7; O2SAT 97; BMI 28.2
== END 2025-01-26 15:29 | disposition home or self-care (01) ==
PROVIDERS: PCP Nurse Practitioner Family; Visit Provider Physician Assistant
DX: R06.02 Shortness of breath (principal)

== ENCOUNTER 2025-01-31 13:59 | Outpatient (AMB) | payer BC, SELFPAY ==
[2025-01-31 14:05] VITALS: BP 100/60; PULSE 86; RESP 16; TEMP 36.7; O2SAT 98; BMI 27.9
--- NOTE | 2025-01-31 14:05 | AM.OFFWIN_ITS ---
Intake Vital Signs 01/31/25 14:05 Height 5 ft 11 in Weight 200 lb BMI 27.9 BP 100/60 Blood Pressure Location Rt brachial Position Sitting Respiration 16 Pulse 86 Pulse Source Pulse Oximeter Temp 98.1 F Temp Source Oral Pulse Oximetry (%) 98 Oxygen Delivery Method Room Air Intake Visit Reasons: EP Diverticulitis?? Lightheaded, sob Intake Note: Pt is here today c/o LLQ pain x4days, lightheaded and SOB for months Patient Tobacco Use Status: Never used Tobacco Allergies penicillamine Allergy (Unknown, Verified 01/26/25 14:48) unknown HPI HPI Comments History of Present Illness Details Patient is a 79yo M who presents to office with abdominal pain Few years ago he had similar event and saw Dr. Wu and was given medicine for diverticulitis He said ongoing x 4 days + weakness, abdominal pain Has chronic SOB, lightheadedness and weakness but worse than baseline Denies nausea or vomiting + watery bowel movements and noticed mor e gas than usual Last BM was 1 hour ago No blood or melena No fever or chills No medicine taken for symptoms Patient tates his current pain as 10/20, started today it started to calm down PCP is Stuart Anderson Denies syncope, room spinning or LOC HE said lightheadedness is baseline for him but did have some dizziness upon standing twice this week He denies chest pain currently but has hx of coronary artery disease; sent to ER in 01/12 and had negative troponin work up Was seen here on 01/26 was here for similar issues. PCP put in cardia referral and pt has echo scheduled for this Wednesday. Pt refuses nuclear scan at this time. 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 Vitamin D deficiency Cholecystectomy planned Osteoarthritis History of colon cancer CKD (chronic kidney disease) Sarcoidosis Partial nontraumatic amputation of right foot PVD (peripheral vascular disease) Diabetic retinopathy Spherocytosis Skin cancer Peripheral neuropathy Spinal stenosis Renal stones Pulmonary sarcoidosis Diabetes Surgical History History of amputation of foot History of ureter repair H/O splenectomy S/P ureteral reimplantation History of surgical removal of pilonidal cyst History of tonsillectomy and adenoidectomy H/O right hemicolectomy Status post laser lithotripsy of ureteral calculus Hx of cholecystectomy Hx of colonoscopy Family History Mother Thyroid cancer Other Mental health disorder Social History Household Members: Friend(s) Housing: House Are you a primary transition of care specialist to a significant other at home: No Do you presently have visiting nurse or other home services: No Alcohol intake: never Patient Tobacco Use Status: Never used Tobacco e-Cigarette/Vaping Use: Never Used Second Hand Smoke Exposure: No Advance Directives Date on File: 12/02/23 service: No Current occupational status: employed and retired Cognitive needs: No Hearing needs: No Vision needs: No Review of Systems Const Denies chills, Denies fever(s) and Denies poor appetite Eyes Denies change in vision ENT Reports dizziness (chronic unchanged), Denies nasal congestion and Denies sore throat Card Denies chest pain, Denies syncope and Reports dyspnea (chronic and unchanged) Resp Denies chest congestion, Denies cough and Reports dyspnea (chronic and unchange d) GI Reports abdominal pain (last episode 2 days ago), Denies melena, Denies hematochezia, Denies constipation, Reports loose stools, Denies nausea and Denies vomiting Denies dysuria Musc Denies back pain Neuro Reports dizziness (chronic unchanged), Denies syncope and Reports other (denies LOC or HT) Physical Exam Vital Signs: Last Vital Signs Temp 98.1 F 01/31/25 14:05 Pulse 86 01/31/25 14:05 Resp 16 01/31/25 14:05 BP 100/60 01/31/25 14:05 Pulse Ox 98 01/31/25 14:05 Oxygen Delivery Method Room Air 01/31/25 14:05 BMI result Body Mass Index 27.9 General: Non-toxic, NAD. Speaking full sentences. Skin: Warm dry throughout Eye: EOMI HENT: Airway patent. Uvula midline. No pharyngeal erythema or edema. No METAL ROOFER. Oral mucosa moist Bilateral canals clear. TM non-erythematous, non-bulging. No TM perforation or hemotympanum noted. Respiratory: CTA bilaterally. No wheezes, rales or rhonchi Cardiac: RRR Abdominal: BS x 4. No ttp light and deep palpation. No guarding. No masses palpated Neurology: Alert. No aphasia or facial droop. Psych: Good mood and affect Assessment & Plan Assessment & Plan (1) Loose stools: Code(s): R19.5 - Other fecal abnormalities Plan: Patient seen and evaluated. He is non-toxic appearing and in NAD His vital signs are stable He had labs last week which showed no acute abnormality He has no acute abdomen on exam and has no tenderness We discussed the need for liquid diet x 4-5 days and then advance. He was educated on s/s that warrant immediate evaluation such as melena, brbpr, return of pain, fever and will seek ER eval He will call GI MD for follow up Patient gave verbal understanding and had no additional questions or concerns at time of discharge All questions answered (2) Chronic fatigue: Code(s): R53.82 - Chronic fatigue, unspecified Plan: This has been addressed with PCP and last visit last week He had recent labs and is having further imaging studies complete Advised that this is unchanged from chronic and educated if there is change or worsening symptoms to be seen Pt gave verbal understanding Coding Level of Care Code Est Pt Level 3 (04015) Diagnoses Loose stools R19.5 Chronic fatigue R53.82
--- OUTSIDE RECORDS SUMMARY | 2025-01-31 16:47 | XMS_ITS | Clinical Summary ---
Author Organization [facility] Address [address] [place] [address] Phone Care Team Providers Care Clay Pigeon Loader Name Role Phone Stuart Will NP Primary Care Provider Encounters Date Type Department Care Team Description 01/25/2025 Telephone [facility] [address] [place] [address] Stuart Will NP 01/25/2025 Telephone [facility] [address] [facility] [address] [place] [address] Stuart Will NP Referral (Received routine paper referral - January) 01/18/2025 Telephone [facility] [address] [place] [address] Physician, Pcp Unknown from Last [...] 08/21/2025 1:30 PM EST Office Visit [facility] [address] [place] [address] Stuart Hernandez MD [address] [place] [address],[address] [id number] Health Maintenance Due Date Last Done Comments [...] age to complete this topic Insurance MEDICARE [facility] Care Teams Clay Pigeon Loader Relationship Specialty Start Date End Date Stuart Will NP [address] [place] [address] PCP - General Family Medicine 01/25/25
--- OUTSIDE RECORDS SUMMARY | 2025-01-31 16:47 | XMS_ITS ---
Author [facility] Address [address] [place] [address] Care Team Providers Care Link Wire Fabric Machine Tender Name Role Phone Stuart Lozano Primary Care Provider Unav ailable Black, Marychuy Unavailable [phone] Allergies Allergen (clinical drug ingredient) Drug/Non Drug Allergy documented on EMR Reaction Allergy Type Onset Date Status 12 Hour Nasal [place] Unknown Drug Allergy Active Dust Mites Unknown [...] Twice a day for 30 days Active [place] 3-6-9 Not-Jd ng Timolol Maleate PF N [...] as directed Orally Active Vitamin D Active R63-Expalz Active Vitamin D3 Active Social History Tobacco [...] Ordered Date Performed Result Body Sit e 56976-UVBCOXY NAIL, 6 OR MORE 11/23/2024 N/A 85665-VAKU SKIN LESIONS, OVER 4 11/23/2024 N/A Encounters Encounter Location Date Provider Diagnosis [facility] [place] [address] [place] [address] 11/23/2024 Marychuy Black Type 1 diabetes mellitus [...] days Pending Test Test Name Order Date [id number] NAIL, 6 OR MORE 11/23/2024 24553-QNIP SKIN LESIONS, OVER 4 11/23/19 25 Next Appt Details Follow Up: prn, Reason: Provider Name:Marychuy Kelley , 03/15/2025 02:30:00 PM, [address] [place] [address], [phone], Procedure Notes * Category Sub-Category Detail Notes [...] use of a nail nipper and/or dremel-type hardboard grinder, to a more viable healthy nail [...] to maintain effectiveness in symptomatic relief - 52864 Keratoma Treatment Parring or Cutting o f [...] instrumentation by the physician of record - 34571 Progress Notes * Casey SEWELL KDOB:[birth year] (79 yo M)Acc No.[id number]:11/23/2024 Progress Note Patient:?Casey SEWELL Provider:?Marychuy Kelley DPM :1945???Age:79 Y???Sex:Male David e:11/23/2024 Address:[address] [place] [address] [id number] Pcp:IVORY Mattson Subjective: * Chief Complaints: * [...] kidney disease 04/2020 * Hospital[facility] Diagn[facility] stic [facility] - saw minerva bonilla [facility]- chest pain 10[facility]31[facility]- [facility] Scan [facility]- Bladder [facility]- Possible Heart Attack/Stress Anxiety/Covid 07/31 * Family [...] no. ?Marital status: single. 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 * Medications:?UxaqhzO46-Wlxii e Vitamin D3 Resveratrol Flax Seed Oil Vitamin B Complex - Tablet as directed Orally Berberine HCI 500 MG Capsule as directed Orally Vitamin D HumuLIN N Zinc Vitamin C 500 MG Capsule as directed Orally Once a day Turmeric AFO-Hinged as directed Wear Daily Taking X85-Qwccdd Taking Vitamin D3 Taking Resveratrol Taking Flax [...] Release 1 tablet Orally Once a day [place] 3-6-9 Nattokinase 100 MG Capsule as directed [...] 1 tablet Orally Once a day Not-Taking/PRN [place] 3-6-9 Not-Taking/PRN Nattokinase 100 MG Capsule as [...] 30 days, 280, Refills 3.?? 3.?Tinea unguium?Procedure: 11985-JDLYWCJ NAIL, 6 OR MORE * Procedures:?Debride Nail [...] use of a nail nipper and/or dremel-type hardboard grinder, to a more viable healthy nail [...] to maintain effectiveness in symptomatic relief - 97964.?Keratoma Treatment:?Parring or Cutting of Benign Hyperkeratotic Lesion(s)?(-57) [...] instrumentation by the physician of record - 30170.? * Procedure Codes:?11309 TRIM SKIN LESIONS, OVER 4, Modifiers: XS 93342 DEBRIDE NAIL, 6 OR MORE, Modifiers: XS [...] Kelley DPM Date:?2024 Generated for Alfredo logan/Lila/eTransmitting on:?01/31/2025 04:47 PM EDT History and Physical Notes * [...]
--- OUTSIDE RECORDS SUMMARY | 2025-01-31 16:48 | XMS_ITS ---
Author Organization [facility] Address [address] [place] [address] Care Team Providers Care Straightedge Machine Operator Helper Name Role Phone Stuart Lozano Primary Care Provider Unav ailable Black, Marychuy Unavailable [phone] REASON FOR VISIT Balance Encounters Encounter Location Date Provider Diagnosis [address] [address] 11/23/2024 Marychuy Black Plan Of Treatment Next Appt Details Provider Name:Marychuy Archer Warren , 03/15/2025 02:30:00 PM, [address] [place], [address], Progress Notes * KENANCasey FUNES KDOB:[birth year] (79 yo M)Acc No.[id number]:11/23/2024 Patient:?Casey SEWELL :1945???Age:79 Y???Sex:Male Address:[address] [place] [address], [address] * true * Date:? Generated for Printi doreen/Lila/eTransmitting on:?01/31/2025 04:48 PM EDT
--- OUTSIDE RECORDS SUMMARY | 2025-01-31 16:48 | XMS_ITS ---
Author Organization [facility] Address [address] [place] [address] Care Team Providers Care Javascript Programmer Name Role Phone MARC HERNANDEZ Primary Care Provider Ernesto Beck [phone] REASON FOR VISIT screening, hx polyps,hx colon ca Encounters Encounter Location Date Provider Diagnosis [facility] Outpatient [address] [place] [id number] 10/09/2024 Ernesto Wu Plan Of Treatment Next Appt Details Provider Name:Ernesto Wu , 04/04/2025 02:20:00 PM, [address], [place], [address], Progress Notes * MELISSA HUNT KDOB:[birth year] (79 yo M)Acc No.[id number]:10/09/2024 COLON WITH MAC Patient:?MELISSA HUNT Provider:?Ernesto Wu MD :1945???Age:79 Y???Sex:Male David e:10/09/2024 Address:[address] [place] [address] [facility] Pcp:MARC HERNANDEZ Subjective: * Chief Complaints: * [...] MD Date:? 024 Generated for Alfredo logan/Lila/Dakotaitting on:?01/31/2025 04:47 PM EDT
--- OUTSIDE RECORDS SUMMARY | 2025-01-31 16:48 | XMS_ITS ---
Author Organization [facility] Address [address] [place] [address] Care Team Providers Care Head Of Design Name Role Phone Stuart Lozano Primary Care Provider Unav ailable Black, Marychuy Unavailable [phone] REASON FOR VISIT rx for AFO Encounters Encounter Location Date Provider Diagnosis [address] [address] 08/22/2024 Marychuy Black Plan Of Treatment Next Appt Details Provider Name:Marychuy Archer Warren , 03/15/2025 02:30:00 PM, [address] [place], [address], Progress Notes * Casey SEWELL KDOB:[birth year] (79 yo M)Acc No.[id number]:08/22/2024 Patient:?Casey SEWELL :1945???Age:79 Y???Sex:Male Address:[address] [place] [address] [place], [address] * true * Date:? Generated for Printi ng/Faxing/eTransmitting on:?01/31/2025 04:47 PM EDT
--- OUTSIDE RECORDS SUMMARY | 2025-01-31 16:48 | XMS_ITS | Clinical Summary ---
Author Organization [facility], Address [address] [place] [address] [place] [address] Phone Care Team Providers Care Tubing Oiler Name Role Phone Stuart Will NP Primary Care Provider [phone] Allergies Active Allergy Reactions Criticality Noted Date [...] patient's age to complete this topic Insurance [place] [address] Care Teams Tubing Oiler Relationship Specialty Start Date End Date Stuart Will NP [facility] [place] [address] PCP - General Nurse Practitioner 12/06/20
--- OUTSIDE RECORDS SUMMARY | 2025-01-31 16:48 | XMS_ITS | Patient Health Record ---
[facility] Organization [facility] Address [address] [place] [address] Care Team Providers Care Order Entry Name Role Phone Stuart Lozano Primary Care Provider Unav ailable Black, Marychuy Unavailable [phone] Allergies Allergen (clinical drug ingredient) Drug/Non Drug Allergy documented on EMR Reaction Allergy Type Onset Date Status 12 Hour Nasal Anna Unknown Drug Allergy Active Dust Mites Unknown [...] Multivitamins Not-Jacek hensley Ascorbic Acid Not-Jacek hensley K77-Qpocfk Active Aspirin 81 MG 1 tablet Orally Once a day for 30 day(s) Not-Taking Vitamin D3 Active Resveratrol Active Lovastatin Not-Takin g Magnesium Not-Taking Flax Seeds - as directed Orally Not-Taking Aspirin 81 81 MG 1 tablet Orally Once a day Not-Taking Dulzura 3-6-9 Not-Taki ng Immunizations Vaccine Route Administration [...] Problem Acquired hammer toe of right foot (1402073370626188) Other hammer toe(s) (acquired), right foot (M20.41) Active confirmed Problem Acquired hammer toe of left foot (6798254894781814) Other hammer toe(s) (acquired), left foot (M20.42) Active confirmed Problem Non-pressure ulcer lower limb (591366904) Non-pressure chronic ulcer of other part of right foot limited to breakdown of skin (L97.511) Active confirmed Problem Polyneuropathy due to diabetes mellitus type I (277007611) 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 Problem Hammer toe (546049768) Hammer toe of left foot (M20.42) Active confirmed Problem 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 (900717038820751) Charcot foot due to diabetes mellitus (E11.610) Active confirmed Problem Unsteady gait (89508054) Unsteady gait (R26.81) Active confirmed Problem Ankle ulcer (402384696) Skin ulcer of right ankle, limited to breakdown of skin (L97.311) Active confirmed Problem Ulcer of toe of right foot (disorder) (77723579879443577) Skin ulcer of toe of right foot, limited to breakdown of skin (L97.511) Active confirmed Problem Acquired equinovarus deformity (33354756) 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) Active confirmed Problem 80392036531686960 Skin ulcer of toe of left foot, limited to breakdown of skin (L97.521) Active confirmed Vital Signs Blood pressure diastolic 65 mm Hg 11/23/2024 Height 5ft 11in in 11/23/2024 Blood pressure systolic 110 mm Hg 11/23/2024 Weight 215 lbs 11/23/2024 BMI 29.98 kg/m2 11/23/2024 Procedures Procedure Date Ordered Date Performed Result Body Sit e 89286-PSYSHJT NAIL, 6 OR MORE 05/11/2024 N/A 18578-PIQZ SKIN LESIONS, OVER 4 05/11/2024 N/A 96372-QGLEZDO NAIL, 1-5 08/17/2024 N/A 27507-Fncamngq Plate 08/17/2024 N/A 51713-Jxyfyjsd Plate Each Additional 08/17/2024 N/A 70977-XTOR SKIN LESIONS, OVER 4 08/17/2024 N/A 96898-NGAUXFW NAIL, 6 OR MORE 11/23/2024 N/A 19427-ZDJY SKIN LESIONS, OVER 4 11/23/2024 N/A Encounters Encounter Location Date Provider Diagnosis [address] [address] 05/11/2024 Marychuy Black Type 1 diabetes mellitus with diabetic polyneuropathy E10.42 and Tinea unguium B35.[address] [address] 08/17/2024 Marychuy Black Type 1 diabetes mellitus with diabetic polyneuropathy E10.42 ; Tinea unguium B35.1 ; Ingrown nail L60.0 and Skin ulcer of toe of left foot, limited to breakdown of skin L97.[address] [address] 11/23/2024 Marychuy Black Type 1 diabetes mellitus with diabetic polyneuropathy E10.42 ; Xerosis of skin L85.3 and Tinea unguium B35.[address] [address] 04/18/2024 Marychuymerline Kelley [address] [address] 08/22/2024 Marychuymerline Kelley [address] [address] 11/23/2024 Marychuy Black Assessments Encounter Date Diagnosis (ICD Code) Assessment Notes Treatment Notes Treatment Clinical Notes Section Notes 11/23/2024 Type 1 diabetes mellitus with diabetic polyneuropathy (ICD-10 - E10.42) 11/23/2024 Xerosis of skin (ICD-10 - L85.3) 05/11/2024 Tinea unguium (ICD-10 - B35.1) 05/11/2024 Type 1 diabetes mellitus with diabetic polyneuropathy (ICD-10 - E10.42) 08/17/2024 Tinea unguium (ICD-10 - B35.1) 08/17/2024 Type 1 diabetes mellitus with diabetic polyneuropathy (ICD-10 - E10.42) 08/17/2024 Ingrown nail (ICD-10 - L60.0) 11/23/2024 Tinea unguium (ICD-10 - B35.1) 08/17/2024 Skin ulcer of toe of left foot, limited to breakdown of skin (ICD-10 - L97.521) Plan Of Treatment Pending Test Test Name Order Date Hemoglobin A1c 12/02/2015 94323-DXBBVJK NAIL, 6 OR MORE 02/24/2016 78180-QMZQQKI NAIL, 6 OR MORE 01/23/2013 80239-AOYTLKX NAIL, 6 OR MORE 09/13/2013 71480-IZADBIK NAIL, 6 OR MORE 02/21/2015 07616-UAPJUTI NAIL, 6 OR MORE 06/02/2018 40100-PMKVHHF NAIL, 6 OR MORE 08/27/2016 01592-ETMBHKY NAIL, 6 OR MORE 06/01/2016 95078-QEIWUIE NAIL, 6 OR MORE 12/02/2015 10980-YMRYEKX NAIL, 6 OR MORE 09/27/2017 97580-XLTLUXB NAIL, 6 OR MORE 12/06/2014 43148-CAYZTCG NAIL, 6 OR MORE 09/20/2014 45520-CZMAOHC NAIL, 6 OR MORE 06/21/2014 13267-NWYVCTE NAIL, 6 OR MORE 10/01/2011 03517-WTYYLPA NAIL, 6 OR MORE 12/03/2011 62358-SLBEPPH NAIL, 6 OR MORE 03/03/2012 04916-GPZJMLT NAIL, 6 OR MORE 06/02/2012 77045-IVUUJFA NAIL, 6 OR MORE 04/03/2013 83591-WHSQCBE NAIL, 6 OR MORE 11/03/2012 56999-UMAFWFS NAIL, 6 OR MORE 12/13/2013 59069-DZKXMOO NAIL, 6 OR MORE 03/22/2014 57607-BRDJEYQ NAIL, 6 OR MORE 06/28/2013 48209-GSOKBEL NAIL, 6 OR MORE 05/13/2015 27481-WNFKKKW NAIL, 6 OR MORE 09/09/2015 85638-QEKDNAO NAIL, 6 OR MORE 12/07/2016 21803-BSLIGPO NAIL, 6 OR MORE 03/11/2017 49820-GZJZWIU NAIL, 6 OR MORE 06/24/2017 84448-NZLJGBO NAIL, 6 OR MORE 12/27/2017 45635-VLTZFVN NAIL, 6 OR MORE 08/25/2018 89668-WVNMKXD NAIL, 6 OR MORE 11/24/2018 59083-MDNECGI NAIL, 6 OR MORE 03/09/2019 59346-UGECLIB NAIL, 6 OR MORE 06/05/2019 83535-IBACHCJ NAIL, 6 OR MORE 06/13/2020 14462-JBECSUN NAIL, 6 OR MORE 09/23/2020 03900-XENDEZE NAIL, 6 OR MORE 03/11/2020 30669-BBRACZY NAIL, 6 OR MORE 12/02/2020 03425-KAPSDAH NAIL, 6 OR MORE 03/13/2021 06752-LTUJYZR NAIL, 6 OR MORE 06/09/2021 84104-VMCIZIV NAIL, 6 OR MORE 09/08/2021 38313-KLZUHLD NAIL, 6 OR MORE 01/30/2022 56428-CKCBEWR NAIL, 6 OR MORE 06/22/2022 34091-UPOSHHY NAIL, 6 OR MORE 09/28/2022 69162-UVFWTTN NAIL, 6 OR MORE 12/28/2022 32907-FSYFOMQ NAIL, 6 OR MORE 04/05/2023 85817-LXHHHGP NAIL, 6 OR MORE 07/08/2023 39360-MPDFALD NAIL, 6 OR MORE 10/21/2023 76090-LERZMUW NAIL, 6 OR MORE 05/11/2024 27737-QXXITMB NAIL, 6 OR MORE 11/23/2024 62711-LSXXULC NAIL, 6 OR MORE 09/18/2019 94586-CFDVJXG NAIL, 1-5 01/20/2024 40141-OITXDPH NAIL, 1-5 08/17/2024 09197-Hjof Destruction, -14 09/18/2019 28833-Bqlz Destruction, -14 09/08/2021 55487-Qyjs Destruction, -14 06/09/2021 58761-Motz Destruction, -14 03/11/2020 82804-Yadu Destruction, -14 03/09/2019 27273-Clum Destruction, -14 06/05/2019 25970-Xltz Destruction, -14 05/13/2015 05511-Rlyg Destruction, -14 03/22/2014 52753-Ixjs Destruction, -14 12/13/2013 91708-Stnp Destruction, 10-2411/03/2012 18359-Epvp Destruction, 10-2406/28/2013 50268-Ebbh Destruction, 10-2404/03/2013 42137-Mtkn Destruction, 10-2406/02/2012 30436-Xjuc Destruction, 10-2410/01/2011 85615-Xmsv Destruction, 10-2403/03/2012 82744-Cfpd Destruction, 10-2412/03/2011 03659-Pplk Destruction, 10-2406/21/2014 85830-Jhel Destruction, 10-2409/20/2014 46375-Arom Destruction, 10-2412/06/2014 90110-Yyjx Destruction, 10-2402/21/2015 25751-Vznh Destruction, 10-2409/13/2013 23905-Ypor Destruction, 10-2401/23/2013 92684-Vbhvpvsc Plate 02/24/2016 51672-Mmjptzcn Plate 09/13/2013 42406-Rvivwrxa Plate 01/23/2013 03524-Zpqtvska Plate 12/06/2014 20468-Kxbdmxjx Plate 09/27/2017 21087-Vqraahte Plate 02/21/2015 09525-Rbnriqsj Plate 09/20/2014 12000-Irmxrogu Plate 06/21/2014 91546-Snfjqczq Plate 12/02/2015 68364-Kqmdgsjr Plate 06/01/2016 20923-Mlwthbbu Plate 08/27/2016 19237-Nxgzcwrk Plate 03/03/2012 44818-Ircgaeiy Plate 12/03/2011 89735-Wrvfwvtq Plate 06/02/2012 68509-Nbyoroyo Plate 04/03/2013 47033-Mujcqpvt Plate 06/28/2013 08561-Dqnugjzq Plate 12/13/2013 17720-Melvihzx Plate 03/22/2014 42333-Txzamupq Plate 05/13/2015 57095-Quwduyfr Plate 11/03/2012 42864-Byrvpiyx Plate 09/09/2015 17767-Czgnoncj Plate 12/07/2016 79881-Hahpmatt Plate 11/24/2018 03143-Ydptqrvm Plate 03/09/2019 28479-Mxaeytcj Plate 12/27/2017 86014-Pkttxzej Plate 08/25/2018 94197-Aoqlfcac Plate 06/05/2019 91252-Meyfxvot Plate 03/11/2020 10964-Ptynghoe Plate 09/23/2020 47868-Twiwmeht Plate 06/13/2020 02461-Uumblzfw Plate 09/08/2021 93652-Jyltxqnk Plate 03/13/2021 26570-Tktfengn Plate 06/09/2021 17018-Lopgcgfi Plate 01/30/2022 54399-Yrzavpey Plate 06/22/2022 69599-Ywptemjj Plate 01/20/2024 07783-Bfyidsfx Plate 09/18/2019 07956-Cjxhiltd Plate 08/17/2024 65318-Qgtuvoyk Plate Each Additional 09/2022 10348-Qibnhfjw Plate Each Additional 04/2024 36349-Ivuzjlhc Plate Each Additional 93409-Lqzgifvy Plate Each Additional 12/2020 02931-Zpbfmcyz Plate Each Additional 74179-Uobtnhls Plate Each Additional 89434-Pjpesgur Plate Each Additional 73087-Viubyxpx Plate Each Additional 10/2019 08932-Vnugqjoz Plate Each Additional 08377-Dspqxznq Plate Each Additional 15824-Voxjjqbi Plate Each Additional 65772-Gdpkvaht Plate Each Additional 74471-Fowdzjre Plate Each Additional 61149-Emznpzvg Plate Each Additional 12/2014 17682-Ypbbpfsk Plate Each Additional 48593-Ktyoroqn Plate Each Additional 09/2014 80307-Fktbdqtw Plate Each Additional 02/2014 82090-Fghwpitb Plate Each Additional 02721-Xaqukdup Plate Each Additional 17042-Irjtztfh Plate Each Additional 85230-Crfeoqdn Plate Each Additional 05487-Jyykfbbi Plate Each Additional 99049-Kaqrpzff Plate Each Additional 06/2019 88084-Emdjnqjb Plate Each Additional 83564-Pzdmcrlh Plate Each Additional 38844-Dsppawcx Plate Each Additional 08/2014 79095-Oopmuhrz Plate Each Additional 08/2014 20480-Dpgtffke Plate Each Additional 92957-Clcsysgv Plate Each Additional 34973-Jddukktu Plate Each Additional 02676-Vehoqxuj Plate Each Additional 01/2013 66834-Yvkwufgz Plate Each Additional 34123- Debride <25 sq cm 06/13/2020 42886- Debride <25 sq cm 04/05/2023 88760 I&D ABSCESS- SIMPLE,SINGLE 013 71239 I&D ABSCESS- SIMPLE,SINGLE 013 94088-WEML SKIN LESIONS, OVER 4 01/24/20 13 11548-VDKF SKIN LESIONS, OVER 4 02/24/20 16 51880-OLYN SKIN LESIONS, OVER 4 09/13/20 13 96172-VLQE SKIN LESIONS, OVER 4 02/22/20 15 96859-KZVT SKIN LESIONS, OVER 4 12/06/19 15 61041-GJOE SKIN LESIONS, OVER 4 09/20/20 14 11663-PJDP SKIN LESIONS, OVER 4 06/21/20 14 54250-RAAL SKIN LESIONS, OVER 4 12/02/19 16 35452-ECEP SKIN LESIONS, OVER 4 06/01/20 16 31907-YFPV SKIN LESIONS, OVER 4 06/02/20 18 41589-QVWC SKIN LESIONS, OVER 4 09/27/20 17 06288-DTXI SKIN LESIONS, OVER 4 08/27/20 16 48639-BKAX SKIN LESIONS, OVER 4 04/03/20 13 16494-KWVV SKIN LESIONS, OVER 4 11/03/19 13 52585-SUEL SKIN LESIONS, OVER 4 12/14/19 14 46644-PEQH SKIN LESIONS, OVER 4 03/22/20 14 34605-ZHPJ SKIN LESIONS, OVER 4 09/09/20 15 64675-UCBA SKIN LESIONS, OVER 4 05/13/20 15 40617-YWNA SKIN LESIONS, OVER 4 06/28/20 13 98681-STUM SKIN LESIONS, OVER 4 12/07/19 17 67835-TYCA SKIN LESIONS, OVER 4 03/11/20 17 82619-OTPC SKIN LESIONS, OVER 4 06/24/20 17 19177-ZVHB SKIN LESIONS, OVER 4 11/24/19 19 97003-VHED SKIN LESIONS, OVER 4 03/09/20 19 93234-XBEH SKIN LESIONS, OVER 4 12/28/19 18 11997-VCDF SKIN LESIONS, OVER 4 08/25/20 18 75889-RDNF SKIN LESIONS, OVER 4 04/05/20 23 37300-FWCR SKIN LESIONS, OVER 4 12/29/19 23 23807-SDDF SKIN LESIONS, OVER 4 10/21/19 24 79730-IPQU SKIN LESIONS, OVER 4 07/08/20 23 26281-CPVR SKIN LESIONS, OVER 4 06/22/20 16675-HWVB SKIN LESIONS, OVER 4 09/28/20 65682-UROH SKIN LESIONS, OVER 4 01/31/20 42433-MCKC SKIN LESIONS, OVER 4 08/17/20 99430-TKLL SKIN LESIONS, OVER 4 05/11/20 07226-VLUM SKIN LESIONS, OVER 4 11/23/19 09071-ACIX SKIN LESIONS, OVER 4 01/20/20 74436-ACIO SKIN LESIONS, OVER 4 09/18/20 94372-FJDG SKIN LESIONS, OVER 4 06/13/20 81511-NXHT SKIN LESIONS, OVER 4 12/02/19 21 51051-VQCY SKIN LESIONS, OVER 4 09/23/20 05882-UVWI SKIN LESIONS, OVER 4 03/11/20 20 51957-YVQU SKIN LESIONS, OVER 4 06/05/20 19 28718-FGBF SKIN LESIONS, OVER 4 09/08/20 21 71919-XCXP SKIN LESIONS, OVER 4 03/13/20 63624-YDNV SKIN LESIONS, OVER 4 06/09/20 21 28000-XEQH SKIN LESIONS, 2 TO 4 06/02/20 12 71689-RBVS SKIN LESIONS, 2 TO 4 03/03/20 12 40893-ZWJK SKIN LESIONS, 2 TO 4 12/03/19 12 07792-MSLY SKIN LESIONS, 2 TO 4 10/01/20 11 Next Appt Details Provider Name:Marychuy Kelley , 03/15/2025 02:30:00 PM, [address] [place], [address], Insurance Providers Payer Name Payer Address Payer Phone Subscriber Number Group Number Insured Name Patient Relationship to Insured Coverage Start Date Coverage End Date [facility] [id number] [place] [address] [id number] Casey Ulrich Self - patient is the [...] disease 04/2020 Hospitalization History Reason Date(Month/Year) [facility]- Possible Heart Attack/Stress Anxiet y/Covid 07/31 [facility]- Bladder Scan [facility] Scan [facility]- chest pain 10/31 [facility]- Pressure wound right ankle - saw [facility]- chest pain 10/2015
--- OUTSIDE RECORDS SUMMARY | 2025-01-31 16:48 | XMS_ITS | Patient Health Record ---
Author Organization [facility] Address [address] [place] [address] Care Team Providers Care Risk Assessment Consultant Name Role Phone MARC HERNANDEZ Primary Care Provider Ernesto Beck [phone] Allergies No Known Allergies Reason For Referral No Information Medications Medication SIG (Take, Route, Frequency, Duration) Notes Start Date End Date Status Dicyclomine HCl 10 MG 1 or 2 capsules Or ally Every 6 hours as needed for abdominal discomfort/cramps for 30 day(s) 10/17/2023 Active Cephalexin 500 MG TAKE 1 CAPSULE BY [facility] TWICE A DAY FOR 10 [...] Problem Status W/U Status Risk Notes Problem 112483083 Encounter for screening for malignant neoplasm of colon (Z12.11) Active confirmed Problem 887360097 History of adenomatous polyp of colon (Z86.010) Active confirmed Problem 703247653 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 Problem 161101611265275 Preprocedural examination (Z01.818) Active confirmed Problem 724849835 History of colon cancer (Z85.038) Active confirmed Problem 83504690 Constipation, unspecified constipation type (K59.00) Active confirmed Problem Diverticulosis of colon (131198876) Diverticulosis of colon (K57.30) Active confirmed Problem 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) Active confirmed Vital Signs Temperature 97.7 degrees Fahrenheit 03/08/2024 Blood pressure diastolic 00 mm Hg 03/08/2024 Height 71.5 in 03/08/2024 Blood pressure systolic 000 mm Hg 03/08/2024 Weight 214 lbs 03/08/2024 BMI 29.43 kg/m2 03/08/2024 Encounters Encounter Location Date Provider Diagnosis [facility] [address] [place] [address] 03/08/2024 Ernesto Wu History of adenomato us polyp of colon Z86.010 ; Preprocedural examination Z01.818 ; Encounter for screening for malignant neoplasm of colon Z12.11 ; History of colon cancer Z85.038 and Constipation, unspecified constipation type K59.00 [facility] [address] [place] [address] 01/30/2025 Ernesto Wu [facility] [address] [place] [address] 09/12/2024 Ernesto Wu [facility] [address] [place] [address] 10/03/2024 Ernesto Wu Assessments Encounter Date Diagnosis [...] Appt Details Provider Name:Ernesto Meyer Bryce , 04/04/2025 02:20:00 PM, [address] [place] [address], [address], [place], [address], Insurance Providers Payer Name Payer Address Payer Phone Subscriber Number Group Number Insured Name Patient Relationship to Insured Coverage Start Date Coverage End Date [facility] [address] [place], [place] [id number] [phone] [id number] KENANKARINEREN THAKUR MELISSA Self - patient is the insured Medical (General) History Medical History History ICD Code Denies NE,CVA,Lung disease,renal disease IDDM Pulmonary sarcoidosis--inactive Spherocytosis Colonoscopy [...] surgery for stones with Jazlyn Liriano at [facility]
--- OUTSIDE RECORDS SUMMARY | 2025-01-31 16:48 | XMS_ITS ---
Author Organization [facility] Address [address] [place] [address] Care Team Providers Care Technical Writer And Editor Name Role Phone MARC HERNANDEZ Primary Care Provider Ernesto Beck [phone] REASON FOR VISIT thinks he has ibs Encounters Encounter Location Date Provider Diagnosis [facility] [address] [facility] [address] [place] [address] 01/30/2025 Ernesto Wu Plan Of Treatment Next Appt Details Provider Name:Ernesto Wu , 04/04/2025 02:20:00 PM, [address] [facility], [address], [place], [address], Progress Notes * MELISSA HUNT KDOB:[birth year] (79 yo M)Acc No.[id number]:01/30/2025 Patient:?MELISSA HUNT :1945???Age:79 Y???Sex:Male Address:[address] [place] [address] [place] [address] * * Date:?
--- OUTSIDE RECORDS SUMMARY | 2025-01-31 16:48 | XMS_ITS ---
Author Organization [facility] Address [address] [place] [address] Care Team Providers Care Supervisor Dehydrogenation Name Role Phone MARC HERNANDEZ Primary Care Provider Ernesto Beck [phone] REASON FOR VISIT left message with answering service Encounters Encounter Location Date Provider Diagnosis [facility] [address] [place] [address] 10/03/2024 Ernesto Wu Plan Of Treatment Next Appt Details Provider Name:Ernesto Wu , 04/04/2025 02:20:00 PM, [address], [address], [place], [address], Progress Notes * MELISSA HUNT KDOB:[birth year] (79 yo M)Acc No.[id number]:10/03/2024 Patient:?MELISSA HUNT :1945???Age:79 Y???Sex:Male Address:[address] [place] [address] [place] [address] * true * Date:? Generated for Printi ng/Fajamilah/eTransmitting on:?01/31/2025 04:48 PM EDT
== END 2025-01-31 15:46 | disposition home or self-care (01) ==
PROVIDERS: PCP Nurse Practitioner Family; Visit Provider Physician Assistant
DX: R19.5 Other fecal abnormalities (principal); R53.82 Chronic fatigue, unspecified

== ENCOUNTER → 2025-01-31 13:59 | Outpatient (BNVA) | payer BC, SELFPAY | PROVIDERS: PCP Nurse Practitioner Family; Visit Provider Physician Assistant | DX: Z13.89 Encounter for screening for other disorder (principal) ==

== ENCOUNTER → 2025-02-02 08:42 | Outpatient (REF) | payer BC, SELFPAY ==
--- NOTE | 2025-02-02 08:46 | CA_ITS ---
Transthoracic Echocardiogram Patient (Last, First, Middle): Casey Sewell K Gender: Male Date of : 1945 Age: 79 Procedure Date: 02/02/2025 Procedure Type: Transthoracic Echocardiogram Location: OP Height: 180. cm Weight: 90.72 kg BSA: 2.11 m2 Heart Rate: 67 bpm BP: 105 / 60 mmHg Logging Rafter Laborer: BRIAN Referring MD: Stuart Will [facility] Symptoms: R53.83 - Other fatigue Study Quality: Fair ECG Rhythm: Undetermined Conclusions: - The left ventricular systolic function is normal. The calculated ejection fraction is 60% by biplane method. - No obvious valvular pathology seen on this study. Findings Left Ventricle Normal left ventricular cavity size. There is normal left ventricular wall thickness. The left ventricular systolic function is normal. The calculated ejection fraction is 60% by biplane method. There is no evidence of regional wall motion abnormalities. Diastolic function is normal for age. Right Ventricle Normal right ventricular cavity size and systolic function. Atria Both atria are normal in size. Aortic Valve There is mild calcification of the aortic valve. There is no aortic valve stenosis. There is no aortic valve regurgitation. Mitral Valve The mitral valve appears normal. There is no mitral valve regurgitation. There is no mitral valve stenosis. Pulmonic Valve The pulmonic valve is likely normal. Tricuspid Valve There is trace tricuspid valve regurgitation. There is no evidence of pulmonary hypertension. Great Vessels The asc aorta and aortic arch are normal in size. Venous The inferior vena cava is normal in size and collapses less than 50% with inspiration. Pericardium/Pleural There is no evidence of pericardial effusion. Prior Study Comparison No significant change compared to prior study dated: 07/30/2021. Recommendations, Care & Conclusions No obvious valvular pathology seen on this study. Measurements 2D Linear Measurements IVSd: 0.86 0.6-0.9/0.6-1.0 cm LVIDd: 4.15 3.9-5.3/4.2-5.9 cm LVIDd Index: 1.97 2.4-3.2/2.2-3.1 cm/m2 LVIDs: 2.59 2.0-3.6 cm LVPWd: 0.84 0.7-1.1 cm LA Diam: 3.30 2.7-3.8/3.0-4.0 cm LAIDs Index: 1.56 1.5-2.3 cm/m2 LV Mass: 134.41 67-162/88-224 g LV Mass Index: 63.70 43-95/49-115 g/m2 LVOT Diam: 2.40 3.0+(-)1.3 cm 2D Systolic Function EF 4C: 59.50 >55% EF 2C: 59.10 >55% EF BiP: 60.00 >55% Mitral Valve MV Pk E: 0.73 MV PK A: 0.92 MV Decel Time: 267.00 E/A: 0.80 E'Lateral: 8.05 E'Medial: 7.40 E/E' Med: 9.90 E/E' Lat: 9.10 PHT: 78.00 MVA PHT: 2.82 Decel [place]: 2.75 Aortic Valve AoV Pk Adolfo: 0.91 AoV Mn Adolfo: 0.66 AoV VTI: 0.23 AoV Pk Grad: 3.00 Aov Mn Grad: 2.00 FLOWER Cont.VTI: 3.08 LVOT LVOT Pk Adolfo: 0.71 LVOT Mn Adolfo: 0.50 LVOT VTI: 0.15 LVOT Pk Grad: 2.00 LVOT Mn Grad: 1.00 LVOT Diam: 2.40 LVOT Area: 4.52 Diastolic Function MV Pk E: 0.73 MV Pk A: 0.92 E/A: 0.80 E'Medial: 7.40 E/E' Med: 9.90 E' Laterial: 8.05 E/E' Lat: 9.10 Right Ventricle TAPSE (mm): 15.50 TVS' Adolfo: 11.60 Tricuspid Valve TR Pk Adolfo: 1.52 TR Pk Grad: 9.00 Great Vessels Aorta Sinus of Valsalva: 3.90 2.0-3.5 cm Ao Asc: 3.60 2.1-3.4 cm Ao Arch: 2.60 Pulmonary Valve PV Pk Adolfo: 0.72 Peak PV Grad: 2.00 Updated in Other Vendor System with Status of Final Dakota Javier MD electronically signed on 02/03/2025 11:49:24 AM with status of Final
--- OUTSIDE RECORDS SUMMARY | 2025-02-02 08:48 | XMS_ITS | Clinical Summary ---
Author Organization [facility] Address [address] [place] [address] Phone Care Team Providers Care Doorshaker Name Role Phone Stuart Will NP Primary Care Provider Encounters Date Type Department Care Team Description 01/25/2025 Telephone [facility] [address] [place] [address] Stuart Will NP 01/25/2025 Telephone [facility] [address] [facility] [address] [place] [address] Stuart Will NP Referral (Received routine paper referral - January) 01/18/2025 Telephone [facility] [address] [place] [address] Physician, Pcp Unknown from Last [...] Description 08/21/2025 1:30 PM EST Office Visit [facility] [address] [place] [address] Stuart Hernandez MD [address] [place] [address],[address] [id number] Health Maintenance Due Date Last Done Comments [...] age to complete this topic Insurance MEDICARE [facility] Care Teams Doorshaker Relationship Specialty Start Date End Date Stuart Will NP [address] [place] [address] PCP - General Family Medicine 01/25/25
--- OUTSIDE RECORDS SUMMARY | 2025-02-02 08:49 | XMS_ITS | Patient Health Record ---
[facility] Address [address] [place] [address] Care Team Providers Care Bailing Machine Operator Name Role Phone Stuart Lozano Primary Care Provider Unav ailable Black, Marychuy Unavailable [phone] Allergies Allergen (clinical drug ingredient) Drug/Non Drug Allergy documented on EMR Reaction Allergy Type Onset Date Status 12 Hour Nasal [place] Unknown Drug Allergy Active Dust Mites Unknown [...] Multivitamins Not-Jacek hensley Ascorbic Acid Not-Jacek hensley S97-Zgypqv Active Aspirin 81 MG 1 tablet Orally Once a day for 30 day(s) Not-Taking Vitamin D3 Active Resveratrol Active Lovastatin Not-Takin g Magnesium Not-Taking Flax Seeds - as directed Orally Not-Taking Aspirin 81 81 MG 1 tablet Orally Once a day Not-Taking [place] 3-6-9 Not-Taki ng Immunizations Vaccine Route Administration Date Status Comme nts Pneumococcal Unknown 12/27/2017 Administered Influenza Unknown 03/11/2017 Refused Patient refuse s Social History Tobacco Use: Social History Observation [...] an other tobacco user? No Section Notes: Eye exam, Dr Tuckre-08/2015 Pt declined flu shot Eye exam, Dr Tucker Pt declined flu shot Pt declined flu shot Eye exam, Dr [...] Problem Acquired hammer toe of right foot (0300922371267738) Other hammer toe(s) (acquired), right foot (M20.41) Active confirmed Problem Acquired hammer toe of left foot (0060146285642266) Other hammer toe(s) (acquired), left foot (M20.42) Active confirmed Problem Non-pressure ulcer lower limb (958105391) Non-pressure chronic ulcer of other part of right foot limited to breakdown of skin (L97.511) Active confirmed Problem Polyneuropathy due to diabetes mellitus type I (356427508) 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 Problem Hammer toe (107994916) Hammer toe of left foot (M20.42) Active confirmed Problem 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 (788798837898016) Charcot foot due to diabetes mellitus (E11.610) Active confirmed Problem Unsteady gait (58521832) Unsteady gait (R26.81) Active confirmed Problem Ankle ulcer (230999807) Skin ulcer of right ankle, limited to breakdown of skin (L97.311) Active confirmed Problem Ulcer of toe of right foot (disorder) (78359779002762913) Skin ulcer of toe of right foot, limited to breakdown of skin (L97.511) Active confirmed Problem Acquired equinovarus deformity (92649145) 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) Active confirmed Problem [id number] Skin ulcer of toe of left foot, limited to breakdown of skin (L97.521) Active confirmed Vital Signs Blood pressure diastolic 65 mm Hg 11/23/2024 Height 5ft 11in in 11/23/2024 Blood pressure systolic 110 mm Hg 11/23/2024 Weight 215 lbs 11/23/2024 BMI 29.98 kg/m2 11/23/2024 Procedures Procedure Date Ordered Date Performed Result Body Sit e 23562-GCRMJWP NAIL, 6 OR MORE 05/11/2024 N/A 12353-HFAA SKIN LESIONS, OVER 4 05/11/2024 N/A 87361-CWJVCYV NAIL, 1-5 08/17/2024 N/A 66526-Dhzxixee Plate 08/17/2024 N/A 73909-Fywooxrt Plate Each Additional 08/17/2024 N/A 61544-IGRW SKIN LESIONS, OVER 4 08/17/2024 N/A 66315-GRLZNXI NAIL, 6 OR MORE 11/23/2024 N/A 74777-LIBO SKIN LESIONS, OVER 4 11/23/2024 N/A Encounters Encounter Location Date Provider Diagnosis [address] [address] 05/11/2024 Marychuy Black Type 1 diabetes mellitus with diabetic polyneuropathy E10.42 and Tinea unguium B35.[address] [address] 08/17/2024 Marychuy Black Type 1 diabetes mellitus with diabetic polyneuropathy E10.42 ; Tinea unguium B35.1 ; Ingrown nail L60.0 and Skin ulcer of toe of left foot, limited to breakdown of skin L97.[address] [address] 11/23/2024 Marychuy Black Type 1 diabetes mellitus with diabetic polyneuropathy E10.42 ; Xerosis of skin L85.3 and Tinea unguium B35.[address] [address] 04/18/2024 Marychuymerline Kelley [address] [address] 08/22/2024 Marychuymerline Kelley [address] [address] 11/23/2024 Marychuy Black Assessments Encounter Date Diagnosis [...] Test Name Order Date Hemoglobin A1c 12/02/2015 74405-UKQUISM NAIL, 6 OR MORE 11/23/2024 28794-REUQRTS NAIL, 6 OR MORE 05/11/2024 69743-JXBPADO NAIL, 6 OR MORE 07/08/2023 68819-QPPATMJ NAIL, 6 OR MORE 10/21/2023 19194-SJTGBQL NAIL, 6 OR MORE 12/02/2020 90623-IDSVHRD NAIL, 6 OR MORE 03/13/2021 21556-OLWMHHM NAIL, 6 OR MORE 06/09/2021 87599-GKQIGZF NAIL, 6 OR MORE 09/08/2021 51630-BQBBLJH NAIL, 6 OR MORE 01/30/2022 70389-OEKEYID NAIL, 6 OR MORE 06/22/2022 69359-COUPUMR NAIL, 6 OR MORE 09/28/2022 46617-QXTGOZY NAIL, 6 OR MORE 12/28/2022 49434-OTTAERC NAIL, 6 OR MORE 04/05/2023 76001-BJVBCJU NAIL, 6 OR MORE 10/01/2011 56643-LEMVVYR NAIL, 6 OR MORE 12/03/2011 49359-DNLOJKB NAIL, 6 OR MORE 03/03/2012 14217-QXSYBMY NAIL, 6 OR MORE 06/02/2012 40099-IPXJWSS NAIL, 6 OR MORE 11/03/2012 05421-MYOGMJV NAIL, 6 OR MORE 01/23/2013 98327-VGHUIWR NAIL, 6 OR MORE 04/03/2013 90924-NQBPBAV NAIL, 6 OR MORE 06/28/2013 25322-YFNPQCL NAIL, 6 OR MORE 09/13/2013 09505-KDACRLP NAIL, 6 OR MORE 12/13/2013 50810-ZTJIODV NAIL, 6 OR MORE 03/22/2014 50530-RGWVVYI NAIL, 6 OR MORE 06/21/2014 53336-SJDHIMD NAIL, 6 OR MORE 09/20/2014 45258-QKXJADP NAIL, 6 OR MORE 12/06/2014 04471-GYIKQZA NAIL, 6 OR MORE 02/21/2015 74835-IYCYUSK NAIL, 6 OR MORE 05/13/2015 13929-ZZHSFVE NAIL, 6 OR MORE 09/09/2015 60028-IGZJZSK NAIL, 6 OR MORE 12/02/2015 38725-AFITUVC NAIL, 6 OR MORE 02/24/2016 25067-YTCPSEN NAIL, 6 OR MORE 06/01/2016 55772-IUHFZPT NAIL, 6 OR MORE 08/27/2016 63503-AURUFBB NAIL, 6 OR MORE 12/07/2016 88285-HSVLOVR NAIL, 6 OR MORE 03/11/2017 78274-ZXUTSQR NAIL, 6 OR MORE 06/24/2017 79194-UFTEVMZ NAIL, 6 OR MORE 09/27/2017 11570-TGCUEXR NAIL, 6 OR MORE 12/27/2017 89693-SCWFUSI NAIL, 6 OR MORE 06/02/2018 98846-AEWADMO NAIL, 6 OR MORE 08/25/2018 33924-XIOFBUF NAIL, 6 OR MORE 11/24/2018 71820-FEKASTZ NAIL, 6 OR MORE 03/09/2019 63768-DRNZQUS NAIL, 6 OR MORE 06/05/2019 19471-TXPCDQS NAIL, 6 OR MORE 09/18/2019 21313-HQKIXGB NAIL, 6 OR MORE 03/11/2020 64234-RAIKQAT NAIL, 6 OR MORE 06/13/2020 19262-CDASMZN NAIL, 6 OR MORE 09/23/2020 46627-TMZBZEI NAIL, 1-5 01/20/2024 32198-MYCDESD NAIL, 1-5 08/17/2024 75567-Tyvm Destruction, -14 09/08/2021 37963-Vkxe Destruction, -14 06/09/2021 16322-Hpei Destruction, -14 03/11/2020 68918-Wgah Destruction, -14 06/05/2019 29712-Ercr Destruction, -14 09/18/2019 06959-Ipne Destruction, -14 03/09/2019 97662-Gglv Destruction, -14 05/13/2015 18628-Zfmw Destruction, -14 02/21/2015 91057-Bein Destruction, -14 12/06/2014 90399-Myfk Destruction, 10-2409/20/2014 38719-Hkvf Destruction, 10-2406/21/2014 70524-Uzzh Destruction, 10-2403/22/2014 81029-Dund Destruction, 10-2412/13/2013 78979-Vvmh Destruction, 10-2409/13/2013 87293-Eeaf Destruction, 10-2406/28/2013 23884-Jane Destruction, 10-2404/03/2013 04626-Ztax Destruction, 10-2401/23/2013 47917-Hjcw Destruction, 10-2411/03/2012 28391-Xruk Destruction, 10-2406/02/2012 78013-Fzys Destruction, 10-2410/01/2011 97287-Hflc Destruction, 10-2403/03/2012 08126-Qhcc Destruction, 10-2412/03/2011 74928-Xihmscdk Plate 03/03/2012 65192-Kjdrfirf Plate 12/03/2011 56485-Hpxjsket Plate 06/02/2012 04853-Kvuhtnbk Plate 01/23/2013 07715-Lvsjhppz Plate 04/03/2013 51627-Mjxviphe Plate 06/28/2013 49337-Eutybmtz Plate 09/13/2013 76559-Hguaaxfa Plate 12/13/2013 92188-Jmkafnco Plate 03/22/2014 22290-Wljgcxlx Plate 06/21/2014 33679-Ddldxlkj Plate 09/20/2014 46922-Gnkitarj Plate 12/06/2014 87967-Owdhbhiq Plate 02/21/2015 99706-Kmcpedws Plate 05/13/2015 64344-Iuevdslk Plate 12/27/2017 85025-Rjxtxnrs Plate 06/05/2019 65322-Qmbczyuo Plate 11/24/2018 30831-Xbgfeqfg Plate 03/09/2019 09663-Neactjnn Plate 08/25/2018 25734-Qokuysla Plate 09/18/2019 38686-Aswggtyk Plate 03/11/2020 71017-Aeoqgebb Plate 09/27/2017 07780-Mrjnclpj Plate 12/07/2016 20234-Lnvfotxf Plate 08/27/2016 07017-Faucafdh Plate 06/01/2016 24265-Cnzhnooh Plate 02/24/2016 50899-Mogpmkzk Plate 12/02/2015 37689-Hjoyiwgf Plate 11/03/2012 68013-Akzflgas Plate 09/09/2015 62952-Wwecxozx Plate 06/09/2021 37599-Levnyopm Plate 06/13/2020 33272-Fjjvksun Plate 09/08/2021 19685-Gfxcgbiy Plate 03/13/2021 53008-Ajfwbjyw Plate 09/23/2020 66271-Vdstthzp Plate 01/30/2022 30531-Jkhsgiap Plate 06/22/2022 51970-Tctdlgzo Plate 08/17/2024 49096-Fffvbkhz Plate 01/20/2024 11703-Flvoaxkl Plate Each Additional 09/2022 67237-Sjcsqoiv Plate Each Additional 04/2024 23180-Rezawaxz Plate Each Additional 80699-Xsmjmwrm Plate Each Additional 66855-Dbmuaiaf Plate Each Additional 12/2020 89977-Gcplsyes Plate Each Additional 58070-Ygbpxmvz Plate Each Additional 88343-Nhwdymig Plate Each Additional 54512-Jnmqpftm Plate Each Additional 96444-Jdqnzaml Plate Each Additional 62367-Optpimgf Plate Each Additional 64011-Yvdztzpp Plate Each Additional 43845-Flgyemxn Plate Each Additional 83624-Juvrtgfq Plate Each Additional 63069-Sgpsdskr Plate Each Additional 06/2019 39533-Xudjaaki Plate Each Additional 10/2019 68617-Eywyhoia Plate Each Additional 30909-Jzpgzemm Plate Each Additional 70326-Yogsqszh Plate Each Additional 69009-Fitjqxdj Plate Each Additional 12/2014 43943-Hroydifl Plate Each Additional 21835-Nrpoekjo Plate Each Additional 68563-Wvvqwopp Plate Each Additional 08/2014 05628-Iepncrjy Plate Each Additional 08/2014 37072-Ycfhmsqy Plate Each Additional 09/2014 58683-Jzhuqujp Plate Each Additional 02/2014 35083-Pzuesnko Plate Each Additional 01/2013 22569-Wxtirmfl Plate Each Additional 97625-Yrwuaudv Plate Each Additional 35329-Iamcipup Plate Each Additional 11960-Ihbqdhwc Plate Each Additional 79398-Gpqngksm Plate Each Additional 06674- Debride <25 sq cm 06/13/2020 27134- Debride <25 sq cm 04/05/2023 86161 I&D ABSCESS- SIMPLE,SINGLE 013 83351 I&D ABSCESS- SIMPLE,SINGLE 013 40429-DKQR SKIN LESIONS, OVER 4 01/24/20 13 48324-ZPHA SKIN LESIONS, OVER 4 11/03/19 13 96821-NHPY SKIN LESIONS, OVER 4 04/03/20 13 88813-ZDZF SKIN LESIONS, OVER 4 06/28/20 13 27256-YIAM SKIN LESIONS, OVER 4 09/13/20 13 12606-PRUN SKIN LESIONS, OVER 4 12/14/19 14 59732-RLQN SKIN LESIONS, OVER 4 03/22/20 14 05466-POGH SKIN LESIONS, OVER 4 06/21/20 14 55074-QIDQ SKIN LESIONS, OVER 4 09/20/20 14 45426-CGBL SKIN LESIONS, OVER 4 12/06/19 15 08346-QBQM SKIN LESIONS, OVER 4 02/22/20 15 08113-AQNY SKIN LESIONS, OVER 4 05/13/20 15 31928-LZJY SKIN LESIONS, OVER 4 06/13/20 20 10931-KWUE SKIN LESIONS, OVER 4 09/23/20 20 91406-NXSN SKIN LESIONS, OVER 4 03/11/20 20 49207-DHLA SKIN LESIONS, OVER 4 09/18/20 19 73476-PBNF SKIN LESIONS, OVER 4 03/09/20 19 97244-TLUB SKIN LESIONS, OVER 4 06/05/20 19 22213-NNUR SKIN LESIONS, OVER 4 11/24/19 19 27882-EKFD SKIN LESIONS, OVER 4 08/25/20 18 28408-CINK SKIN LESIONS, OVER 4 12/28/19 18 30034-UQVT SKIN LESIONS, OVER 4 06/02/20 18 44321-TSEI SKIN LESIONS, OVER 4 09/27/20 17 05237-HTHH SKIN LESIONS, OVER 4 06/24/20 17 33112-FHHL SKIN LESIONS, OVER 4 12/07/19 17 34660-SYAK SKIN LESIONS, OVER 4 03/11/20 17 14133-XJBL SKIN LESIONS, OVER 4 08/27/20 16 81176-WKBV SKIN LESIONS, OVER 4 06/01/20 16 09536-SBDX SKIN LESIONS, OVER 4 02/24/20 16 78623-XVCJ SKIN LESIONS, OVER 4 12/02/19 16 70382-IHFO SKIN LESIONS, OVER 4 09/09/20 15 52756-CJMH SKIN LESIONS, OVER 4 04/05/20 23 53456-CJGD SKIN LESIONS, OVER 4 07/08/20 23 43239-QLTK SKIN LESIONS, OVER 4 12/29/19 23 18043-CHMU SKIN LESIONS, OVER 4 09/28/20 22 78619-JUPM SKIN LESIONS, OVER 4 06/22/20 22 33758-KMZH SKIN LESIONS, OVER 4 01/31/20 22 09683-WASA SKIN LESIONS, OVER 4 09/08/20 21 97226-UGXR SKIN LESIONS, OVER 4 06/09/20 21 11291-QWDY SKIN LESIONS, OVER 4 12/02/19 21 94944-RSHT SKIN LESIONS, OVER 4 03/13/20 21 18129-SQRP SKIN LESIONS, OVER 4 08/17/20 24 71152-FIPT SKIN LESIONS, OVER 4 11/23/19 25 97252-EDTM SKIN LESIONS, OVER 4 05/11/20 24 32441-QVXE SKIN LESIONS, OVER 4 01/20/20 24 85788-TZKB SKIN LESIONS, OVER 4 10/21/19 24 22579-CEDX SKIN LESIONS, 2 TO 4 06/02/20 12 24846-ONUO SKIN LESIONS, 2 TO 4 03/03/20 12 93047-DXUA SKIN LESIONS, 2 TO 4 12/03/19 12 77017-WLPU SKIN LESIONS, 2 TO 4 10/01/20 11 Next Appt Details Provider Name:Marychuy Kelley , 03/15/2025 02:30:00 PM, [address] [place], [address], Insurance Providers Payer Name Payer Address Payer Phone Subscriber Number Group Number Insured Name Patient Relationship to Insured Coverage Start Date Coverage End Date [facility] [id number] [place] [address] [id number] Casey Ulrich Self - patient is the [...] kidney disease 04/2020 Hospitalization History Reason Date(Month/Year) [facility]- Possible Heart Attack/Stress Anxiet y/Covid 07/31 [facility] Scan [facility]- chest pain 10/31 [facility]- Pressure wound right ankle [facility] 10/2015
--- OUTSIDE RECORDS SUMMARY | 2025-02-02 08:49 | XMS_ITS | Clinical Summary ---
Author Organization [facility], Address [address] [place] [address] [place] [address] Phone Care Team Providers Care Laser Beam Color Scanner Operator Name Role Phone Stuart Will NP Primary Care Provider [phone] Allergies Active Allergy Reactions Criticality Noted Date [...] patient's age to complete this topic [place] [address] [place] [address] Care Teams Laser Beam Color Scanner Operator Relationship Specialty Start Date End Date Stuart Will [place] [facility] [place] [address] PCP - General Nurse Practitioner 12/06/20
--- OUTSIDE RECORDS SUMMARY | 2025-02-02 08:49 | XMS_ITS ---
Author Organization [facility] [place] Address [address] [place] [address] Care Team Providers Care Social Work Msw Name Role Phone Stuart Lozano Primary Care Provider Unav ailable Black, Marychuy Unavailable [phone] Allergies Allergen (clinical drug ingredient) Drug/Non Drug Allergy documented on EMR Reaction Allergy Type Onset Date Status 12 Hour Nasal [place] Unknown Drug Allergy Active Dust Mites Unknown [...] Twice a day for 30 days Active [place] 3-6-9 Not-Jd ng Timolol Maleate PF N [...] as directed Orally Active Vitamin D Active V18-Wiqbie Active Vitamin D3 Active Social History Tobacco [...] Ordered Date Performed Result Body Sit e 46952-PGBBWXX NAIL, 6 OR MORE 11/23/2024 N/A 95833-XDTI SKIN LESIONS, OVER 4 11/23/2024 N/A Encounters Encounter Location Date Provider Diagnosis [facility] [address] [place] [address] 11/23/2024 Marychuy Black Type 1 diabetes mellitus [...] days Pending Test Test Name Order Date 36031-KVHSXYZ NAIL, 6 OR MORE 11/23/2024 05527-HBTM SKIN LESIONS, OVER 4 11/23/19 25 Next Appt Details Follow Up: prn, Reason: Provider Name:Marychuy Kelley , 03/15/2025 02:30:00 PM, [address] [place] [address], [phone], Procedure Notes * Category Sub-Category Detail Notes [...] of a nail nipper and/or dremel-type grinder tender, to a more viable healthy nail plate [...] to maintain effectiveness in symptomatic relief - 48432 Keratoma Treatment Parring or Cutting o f [...] instrumentation by the physician of record - 27074 Progress Notes * Casey SEWELL KDOB:[birth year] (79 yo M)Acc No.[id number]:11/23/2024 Progress Note Patient:?Casey SEWELL Provider:?Marychuy Kelley DPM :1945???Age:79 Y???Sex:Male David e:11/23/2024 Address:[address] [place] [address] [facility] Pcp:IVORY Mattson Subjective: * Chief Complaints: * [...] kidney disease 04/2020 * [facility] Diagn[facility]ic [facility] - saw minerva bonilla [facility]- chest pain 10[facility] Scan [facility]- Bladder Scan [facility]- Possible Heart Attack/Stress Anxiety/Covid 07/31 * Family [...] no. ?Marital status: single. 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 * Medications:?HwqrbxY24-Dlapd e Vitamin D3 Resveratrol Flax Seed Oil Vitamin B Complex - Tablet as directed Orally Berberine HCI 500 MG Capsule as directed Orally Vitamin D HumuLIN N Zinc Vitamin C 500 MG Capsule as directed Orally Once a day Turmeric AFO-Hinged as directed Wear Daily Taking Y67-Ykutbz Taking Vitamin D3 Taking Resveratrol Taking Flax [...] Release 1 tablet Orally Once a day [place] 3-6-9 Nattokinase 100 MG Capsule as directed [...] 1 tablet Orally Once a day Not-Taking/PRN [place] 3-6-9 Not-Taking/PRN Nattokinase 100 MG Capsule as [...] 30 days, 280, Refills 3.?? 3.?Tinea unguium?Procedure: 69208-UHNWRTY NAIL, 6 OR MORE * Procedures:?Debride Nail [...] of a nail nipper and/or dremel-type grinder tender, to a more viable healthy nail plate [...] to maintain effectiveness in symptomatic relief - 22351.?Keratoma Treatment:?Parring or Cutting of Benign Hyperkeratotic Lesion(s)?(-57) [...] instrumentation by the physician of record - 33254.? * Procedure Codes:?95724 TRIM SKIN LESIONS, OVER 4, Modifiers: XS 72791 DEBRIDE NAIL, 6 OR MORE, Modifiers: XS [...] Kelley DPM Date:?2024 Generated for Alfredo logan/Lila/eTransmitting on:?02/02/2025 08:48 AM EDT History and Physical Notes * HPI [...]
--- OUTSIDE RECORDS SUMMARY | 2025-02-02 08:49 | XMS_ITS ---
Author Organization [facility] Address [address] [place] [address] Care Team Providers Care Mental Measurements Teacher Name Role Phone Stuart Lozano Primary Care Provider Unav ailable Black, Marychuy Unavailable [phone] REASON FOR VISIT rx for AFO Encounters Encounter Location Date Provider Diagnosis [address] [address] 08/22/2024 Marychuy Black Plan Of Treatment Next Appt Details Provider Name:Marychuy Archer Warren , 03/15/2025 02:30:00 PM, [address] [place], [address], Progress Notes * Casey SEWELL KDOB:[birth year] (79 yo M)Acc No.[id number]:08/22/2024 Patient:?Casey SEWELL :1945???Age:79 Y???Sex:Male Address:[address] [place] [address] [place], [address] * true * Date:? Generated for Printi ng/Faxing/eTransmitting on:?02/02/2025 08:48 AM EDT
--- OUTSIDE RECORDS SUMMARY | 2025-02-02 08:49 | XMS_ITS ---
Author Organization [facility] Address [address] [place] [address] Care Team Providers Care Ground Crewman Name Role Phone Stuart Lozano Primary Care Provider Unav ailable Black, Marychuy Unavailable [phone] REASON FOR VISIT Balance Encounters Encounter Location Date Provider Diagnosis [address] [address] 11/23/2024 Marychuy Black Plan Of Treatment Next Appt Details Provider Name:Marychuy Archer Warren , 03/15/2025 02:30:00 PM, [address] [place], [address], Progress Notes * Casey SEWELL KDOB:[birth year] (79 yo M)Acc No.[id number]:11/23/2024 Patient:?Casey SEWELL :1945???Age:79 Y???Sex:Male Address:[address] [place] [address], [address] * true * Date:? Generated for Printi doreen/Lila/eTransmitting on:?02/02/2025 08:49 AM EDT
== END ==
LOC: HO.CARD 08:42
PROVIDERS: PCP Nurse Practitioner Family; Visit Provider Nurse Practitioner Family
DX: R53.83 Other fatigue (principal); R06.02 Shortness of breath
CPT/HCPCS: 93306

== ENCOUNTER → 2025-02-02 08:46 | Outpatient (BNV) | payer BC, SELFPAY | PROVIDERS: PCP Nurse Practitioner Family; Visit Provider Internal Medicine | DX: I35.8 Other nonrheumatic aortic valve disorders (principal); R94.31 Abnormal electrocardiogram [ECG] [EKG] | CPT/HCPCS: 93010; 93306 ==

== ENCOUNTER 2025-02-02 12:10 | Emergency (ER) | payer BC, SELFPAY ==
[2025-02-02] VITALS (7 sets, daily range): BP systolic 121–142; BP diastolic 70–88; PULSE 75–89; RESP 16–18; TEMP 36.1–36.6; O2SAT 99–100; BMI 29.2
--- NOTE | ~2025-02-02 | XR_ITS ---
EXAMINATION: XR CHEST CLINICAL INFORMATION: dizziness, weakness COMPARISON: 01/12/2025. TECHNIQUE: 2 views of the chest were obtained. FINDINGS: The cardiac, hilar, and mediastinal contours are normal. The lungs are clear bilaterally. There is no pneumothorax or pleural effusion. There is no focal osseous or soft tissue abnormality. Surgical clips in the epigastric region. Degenerative changes in the shoulder joints and throughout the spine. XR/XR chest 2V IMPRESSION: No active pulmonary disease. Electronically signed by: Amadeo Ding MD 02/02/2025 12:57 PM EDT RP
--- NOTE | 2025-02-02 12:14 | ED.GENADULT ---
HPI - General Adult General Chief complaint: General Medical Stated complaint: Heart Problems, Dizziness, Shortness of Breath Time Seen by Provider: 02/02/25 14:28 Source: patient, RN notes reviewed and old records reviewed History of Present Illness ED Provider: Aishwarya Davis PA-C HPI narrative: 79-year-old male with a past medical history osteoarthritis, CKD, diabetes, diabetic neuropathy, pulmonary sarcoidosis, presenting to the ED complaining of acute on chronic lightheadedness, generalized fatigue/weakness, SOB, and unsteady gait x today. Admits has been experiencing these symptoms x months, and has chronic gait instability, ambulates with walker, however felt his symptoms worsened today after obtaining CTA. Denies chest pain, room spinning dizziness, abdominal pain, nausea vomiting, diarrhea, pedal edema Related Data Home Medications ?Medication ?Instructions ?Recorded ?Confirmed zinc 50 mg capsule 50 mg PO DAILY 08/13/20 12/28/24 vitamin B complex 1 cap PO DAILY 10/14/20 12/28/24 berberine-herbal comb no.18 capsule 500 cap PO BID 12/31/22 12/28/24 resvertrol 06/01/23 12/28/24 ascorbate calcium (vitamin C) 500 1.5 g PO DAILY 07/07/23 12/28/24 mg tablet cholecalciferol (vitamin D3) 100 1,200 unit PO DAILY 09/27/23 12/28/24 mcg (4,000 unit) capsule latanoprost 0.005 % eye drops 1 drp ophthalmic (eye) QPM 03/21/24 12/28/24 alpha lipoic acid 200 mg capsule 200 mg PO BID 05/23/24 12/28/24 turmeric (bulk) 95 % powder 95 ea miscellaneous DAILY 07/24/24 12/28/24 (Curcumin) dorzolamide 2 % eye drops 2 drp ophthalmic (eye) DAILY 10/02/24 12/28/24 insulin NPH isoph U-100 human 100 30 unit subcut BID diabetes 12/28/24 12/28/24 unit/mL subcutaneous suspension (Humulin N NPH U-100 Insulin (isophane susp)) aspirin 81 mg tablet,delayed 81 mg PO DAILY 01/26/25 release (Adult Low Dose Aspirin) ginkgo biloba 40 mg tablet 40 mg PO DAILY 01/26/25 Previous Rx's ?Medication ?Instructions ?Recorded blood-glucose sensor (FreeStyle #6 ea 04/26/24 Nilsa 3 Sensor device) leg brace (Ankle Brace) #1 ea 06/28/24 blood sugar diagnostic (Contour #450 ea 09/01/24 Test Strips) insulin syringe-needle U-100 1 mL #200 ea 09/01/24 30 gauge x 1/2 (BD Insulin Syringe Ultra-Fine) Allergies Allergy/AdvReac Type Severity Reaction Status Date / Time penicillamine Allergy Unknown unknown Verified 02/02/25 12:19 Review of Systems Review of Systems: Yes all other systems are reviewed and are negative Constitutional: Constitutional: Reports as per HPI Neurologic: Denies Abnormal speech present [facility] Past Medical History Attestation statement: The following information was validated with the patient. 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 Vitamin D deficiency Cholecystectomy planned Osteoarthritis History of colon cancer CKD (chronic kidney disease) Sarcoidosis Partial nontraumatic amputation of right foot PVD (peripheral vascular disease) Diabetic retinopathy Spherocytosis Skin cancer Peripheral neuropathy Spinal stenosis Renal stones Pulmonary sarcoidosis Diabetes Surgical History History of amputation of foot History of ureter repair H/O splenectomy S/P ureteral reimplantation History of surgical removal of pilonidal cyst History of tonsillectomy and adenoidectomy H/O right hemicolectomy Status post laser lithotripsy of ureteral calculus Hx of cholecystectomy Hx of colonoscopy Family History Family History Mother Thyroid cancer Other Mental health disorder Social History Social History Household Members: Friend(s) Housing: House Are you a primary healthcare economics manager to a significant other at home: No Do you presently have visiting nurse or other home services: No Alcohol intake: never Patient Tobacco Use Status: Never used Tobacco e-Cigarette/Vaping Use: Never Used Second Hand Smoke Exposure: No Advance Directives: Yes Advance Directives on File: Yes Advance Directives Date on File: 12/02/23 service: No Current occupational status: employed and retired Cognitive needs: No Hearing needs: No Vision needs: No Physical Exam ED Vital Signs: Vital Signs - 24 hr 02/02/25 12:14 02/02/25 14:38 02/02/25 14:56 Temperature 97.8 F 97.3 F Pulse Rate 89 79 75 Respiratory Rate 18 16 Blood Pressure 126/72 121/70 123/72 Pulse Oximetry 99 100 Oxygen Delivery Method Room Air Room Air 02/02/25 14:57 02/02/25 14:58 Temperature Pulse Rate 80 86 Respiratory Rate Blood Pressure 142/88 H 132/80 Pulse Oximetry Oxygen Delivery Method BMI result Body Mass Index 29.2 Const General: cooperative, healthy appearing and no acute distress Orientation/consciousness: patient oriented x3 Limitations: no limitations HENMT Head: Yes normal to inspection and Yes atraumatic Ears: hearing grossly normal bilaterally General nose exam: Normal external nose present Face and sinus: Yes normal facial exam Mouth: Normal oral and palatal mucosa present and no drooling Throat: Yes posterior oropharynx normal Eyes General: appearance normal, both eyes and all related structures Pupils: Equal, round and reactive pupils present EOM: EOMs intact bilaterally Neck Neck: Yes normal visual inspection and Yes no meningeal signs Resp Effort & Inspection: normal respiratory effort and no respiratory distress Auscultation: clear to auscultation bilaterally, no crackles, no rhonchi and no wheezes Cardio Rate: regular rate Heart sounds: S1 normal heart sound present and S2 normal heart sound present GI Inspection: Yes normal to inspection Palpation (GI): Soft to palpation, nontender, no guarding and not rigid General: Yes no CVA tenderness Back/Spine/Pelvis Back: no CVA tenderness Skin Rashes: no rashes Wounds: no wounds Neuro General: patient oriented x3, gait normal (at baseline w/walker), tone normal, moves all extremities, no meningeal signs, no focal motor deficits and CN's II-XI intact bilaterally Cranial nerves: Yes CN's II-XII intact bilaterally and Yes Equal, round and reactive pupils present Cognition (Neuro): normal cognition Speech: No Abnormal speech present Gait exam (Neuro): Normal gait present Motor exam (neuro): 5/5 motor strength present throughout, Pronator motor function not present and no tremor noted Coordination: [id number] test normal Romberg Test: Negative Extrem General: Yes normal to inspection Course Course Course Narrative: This is a Rapid Medical Examination (RME) performed by Pb Garay PA-C in triage. Full HPI, ROS, assessment and treatment plan per primary provider in the Main ED. 02/02/25 1220 MARIFER Escamilla Hx: 79 yo male hx of DM, peripheral neuropathy, left foot drop here w/ generalized weakness, shortness of breath, light headedness, unsteady gait (chronic- ambulates w/ walker) s/p echocardiogram this morning. seen in our ED on 01/12/25 for chest pain, discharged, told to follow up with PCP who ordered outpatient echo which was done this morning. he has not had an appointment with m48/m60 tank driver yet. no known cardiac diagnoses. no hx PR, stents, HTN. PE/vitals: well appearing, speaking in full sentences Plan: labs, ekg, cxr -1503--no leukocytosis. H/H stable. BUN at patient's baseline. Initial troponin negative. Labs otherwise reassuring -viral testing negative XR chest 2V IMPRESSION: No active pulmonary disease -1549--repeat troponin without significant rise, mi unlikely -orthostatic vital signs negative > on re-evaluation reports symptomatic improvement, requesting discharge home Results discussed with patient including worrisome signs and symptoms and strict return precautions, and when to return to the emergency department. They verbalized understanding and feel safe for discharge at this time. Medications Administered Discontinued Medications Generic Name Dose Route Start Last Admin Trade Name Freq PRN Reason Stop Dose Admin Sodium Chloride 500 mls @ 999 mls/hr 02/02/25 15:00 02/02/25 15:21 Ns IV 02/02/25 15:30 999 mls/hr .Q31M [facility] Administration Medical Decision Making Medical Decision Making MDM Narrative: 79-year-old male with a past medical history osteoarthritis, CKD, diabetes, diabetic neuropathy, pulmonary sarcoidosis, presenting to the ED complaining of acute on chronic lightheadedness, generalized fatigue/weakness, SOB, and unsteady gait x today. On exam vital signs stable, NAD, nontoxic appearing, lungs CTA, abdomen is soft/nontender. No focal neuro deficits. Ambulating with steady gait, at baseline. Concern for acute on chronic symptoms vs ACS vs viral illness vs pneumonia. Rule out metabolic infectious etiologies. Low suspicion for CVA/TIA, dissection, PE/DVT Plan: EKG, labs, UA, CXR, orthostatics, re-evaluate Please refer to course for remaining clinical decision making, interpretation of labs/imaging results, and discussions with consultants and/or family members. Differential Diagnosis Differential Diagnoses: The differential diagnosis associated with the presentation includes As above Admission/Observation Consideration of admission/observation: Escalation of care including admission/observation considered Lab Data MDM Lab Attestation statement: I reviewed the patient's lab results. 02/02/25 12:38 02/02/25 12:38 Labs: Lab Results 02/02/25 02/02/25 02/02/25 Range/Units 12:38 12:40 15:19 WBC 7.7 (4.8-10.8) X10*3/uL RBC 4.51 L (4.60-5.80) X10*6/uL Hgb 14.3 (14.0-18.0) g/dl Hct 38.6 L (42.0-52.0) % MCV 85.6 (80.0-98.0) fL MCH 31.7 (27.0-33.0) pg MCHC 37.0 H (31.0-36.0) g/dl RDW 13.2 (11.0-16.0) % Plt Count 366 (160-400) X10*3/uL MPV 11.1 (9.4-12.4) fL Immature Gran % (Auto) Cancelled Neut % (Auto) Cancelled Lymph % (Auto) Cancelled Eddy % (Auto) Cancelled Eos % (Auto) Cancelled Baso % (Auto) Cancelled Lymph # (Auto) Cancelled Eddy # (Auto) Cancelled Eos # (Auto) Cancelled Baso # (Auto) Cancelled Abs Immat Gran (auto) Cancelled Absolute Neuts (auto) Cancelled Absolute Nucleated RBC 0.000 (0.0-0.012) X10*3/uL Nucleated RBC % (auto) 0.0 (0.0-0.2) /100WBC Neutrophils % (Manual) 46 (45-73) % Band Neutrophils % 1 L (3-5) % Lymphocytes % (Manual) 38 (20-40) % Monocytes % (Manual) 2 (2-11) % Eosinophils % (Manual) 10 H (0-4) % Basophils % (Manual) 1 (0-2) % Metamyelocytes % 2 % Abs Neuts (Manual) 3.6 (2.0-8.3) X10*3/uL Lymphocytes # (Manual) 2.9 (1.2-4.9) X10*3/uL Monocytes # (Manual) 0.2 (0.1-1.2) X10*3/uL Eosinophils # (Manual) 0.8 H (0.0-0.4) X10*3/uL Basophils # (Manual) 0.1 (0.0-0.2) X10*3/uL Metamyelocytes # 0.2 X10*3/uL Platelet Estimate NORMAL (NORMAL) Large Platelets PRESENT Plt Morphology Comment NOTED RBC Morphology NOTED Pappenheimer Bodies PRESENT Acanthocytes (Spur) 3+ (>5) /OIF Schistocytes 2+ (3-5) /OIF Sodium 137 (135-145) mmol/L Potassium 3.9 (3.3-5.1) mmol/L Chloride 104 (96-108) mmol/L Carbon Dioxide 25 (22-29) mmol/L Anion Gap 12 (12-20) BUN 20 H (9-16) mg/dL Creatinine 0.83 (0.5-1.4) mg/dL Estim Creat Clear Calc 81.1 Estimated GFR > 60 Random Glucose 133 H (60-115) mg/dL Calcium 10.0 (8.4-10.2) mg/dL Magnesium 1.9 (1.6-2.6) mg/dL Total Bilirubin 1.7 H (0.0-1.0) mg/dL AST 27 (5-37) U/L ALT 15 (0-40) U/L Alkaline Phosphatase 76 (39-117) U/L Troponin I High Sens < 2.7 3.0 (<3.5-35.0) ng/L B-Natriuretic Peptide 64 (<100) pg/mL Total Protein 7.3 (6.5-8.0) g/dL Albumin 4.1 (3.5-5.0) g/dL Influenza Type A (PCR) NEGATIVE (Negative) Influenza Type B (PCR) NEGATIVE (Negative) RSV RNA Qual (PCR) NEGATIVE (Negative) SARS-CoV-2 RNA (RT-PCR) NEGATIVE (Negative) Independent Interpretation I performed an independent interpretation of an: EKG (My interpretation: EKG normal sinus rhythm rate of 79. AK interval 172. QTC 417. When compared to prior borderline criteria for lateral infarct are no longer present. No STEMI) and Plain X-Ray Radiology Impression Discussion of test interpretation with radiology: I have reviewed the radiologist's reading. External Record Review External record reviewed: Inpatient record, Office record, Outpatient record, Prior outpatient labs, Prior outpatient radiology, Primary care record and Outside ED record Tests considered The following testing was considered but not selected: As above Prescription Management I considered prescription management with: Other Chronic Conditions Patient?s care impacted by: Diabetes Social Determinants Patient?s care significantly limited by Social Determinants of Health including: Other Social Determinant of Health Discharge Plan Discharge Clinical Impression: Lightheadedness, SOB (shortness of breath) Patient Disposition: Home, Self-Care Instructions: Lightheadedness (ED), Shortness of Breath (ED) Additional Instructions: Your blood work, chest x-ray, and viral testing is reassuring It is important for you to follow-up with your primary care doctor as well as Cardiology If your symptoms persist or worsen you constant worsening lightheadedness, dizziness, chest pain, shortness breath, passing out episodes please return to the ED immediately Prescriptions: No Action (DME) Contour Test Strips Strip See Rx Instructions .Route Qty: 450 1RF Rx Instructions: 5 times a day (DME) insulin syringe-needle U-100 [BD Insulin Syringe Ultra-Fine] 1 mL 30 gauge x 1/2 syringe See Rx Instructions .Route Qty: 200 3RF Rx Instructions: Use to inject insulin twice per day vitamin B complex Capsule 1 cap PO DAILY latanoprost 0.005 % drops 1 drp ophthalmic (eye) QPM Humulin N NPH U-100 Insulin 100 unit/mL suspension 30 unit subcut BID zinc 50 mg Capsule 50 mg PO DAILY cholecalciferol (vitamin D3) 100 mcg (4,000 unit) capsule 1,200 unit PO DAILY berberine-herbal comb no.18 Capsule 500 cap PO BID ascorbate calcium (vitamin C) 500 mg tablet 1.5 g PO DAILY (DME) resvertrol 0 .Route .MEDSUPPLY (DME) FreeStyle Nilsa 3 Sensor Device See Rx Instructions .Route Qty: 6 1RF Rx Instructions: Test blood sugar 4 times per day alpha lipoic acid 200 mg capsule 200 mg PO BID (DME) Ankle Brace [facility] See Rx Instructions .ROUTE .MEDSUPPLY Qty: 1 0RF Rx Instructions: LEFT AFO custom molded for foot drop Custom shoes, diabetic foot Curcumin 95 % powder 95 ea miscellaneous DAILY dorzolamide 2 % drops 2 drp ophthalmic (eye) DAILY aspirin [Adult Low Dose Aspirin] 81 mg tablet,delayed release (DR/EC) 81 mg PO DAILY ginkgo biloba 40 mg tablet 40 mg PO DAILY Rx Instructions: give with meal/snack Referrals: [facility] [Provider Group] - 1 week Stuart Will FNP-BC [Primary Care Provider] - 5 days Print Language: Singaporean
--- NOTE | 2025-02-02 12:18 | ECG_ITS ---
Test Reason : DIZZINESS Blood Pressure : */* mmHG Vent. Rate : 79 BPM Atrial Rate : 79 BPM P-R Int : 172 ms QRS Dur : 84 ms QT Int : 364 ms P-R-T Axes : 51 -30 70 degrees QTcB Int : 417 ms Normal sinus rhythm Left axis deviation Low voltage QRS Abnormal ECG When compared with ECG of 12-Jan-2025 16:42, No significant changes seen Referred By: Shania Garay Electronically Signed By: STEVE GRIDER
[2025-02-02 12:43] LABS: Hematocrit 38.6 % (42.0-52.0); Hemoglobin 14.3 g/dl (14.0-18.0); Mean Corpuscular Hemoglobin 31.7 pg (27.0-33.0); Mean Corpuscular Volume 85.6 fL (80.0-98.0); Mean Platelet Volume 11.1 fL (9.4-12.4); Platelet Count 366 X10*3/uL (160-400); Red Blood Count 4.51 X10*6/uL (4.60-5.80); Red Cell Distribution Width 13.2 % (11.0-16.0)
[2025-02-02 12:44] LABS: WBC ABN SCTR FOR CBC 1
[2025-02-02 12:59] LABS: Alanine Aminotransferase 15 U/L (0-40); Albumin Level 4.1 g/dL (3.5-5.0); Alkaline Phosphatase 76 U/L (39-117); Anion Gap 12 (12-20); Aspartate Amino Transferase 27 U/L (5-37); Bilirubin Total 1.7 mg/dL (0.0-1.0); Blood Urea Nitrogen 20 mg/dL (9-16); Carbon Dioxide 25 mmol/L (22-29); Chloride 104 mmol/L (96-108); Creatinine Clr Calc Pharmacy 81.1; Estimated Glomerular Filt Rate > 60; Glucose Random 133 mg/dL (60-115); Magnesium 1.9 mg/dL (1.6-2.6); Potassium 3.9 mmol/L (3.3-5.1); Sodium 137 mmol/L (135-145); Total Protein 7.3 g/dL (6.5-8.0)
[2025-02-02 13:05] LABS: B Type Natriuretic Peptide 64 pg/mL (<100)
[2025-02-02 13:07] LABS: Troponin-I High Sensitivity < 2.7 ng/L (<3.5-35.0)
[2025-02-02 13:22] LABS: Influenza A PCR NEGATIVE (Negative); Influenza B PCR NEGATIVE (Negative); Resp Syncy Virus RNA Qual PCR NEGATIVE (Negative); SARS COV2 PCR INHOUSE NEGATIVE (Negative)
[2025-02-02 13:33] LABS: Band Neutrophils Percent 1 % (3-5); Basophils Percent Manual 1 % (0-2); Eosinophils Percent Manual 10 % (0-4); Lymphocytes Percent Manual 38 % (20-40); Metamyelocytes Percent 2 %; Monocytes Percent Manual 2 % (2-11); Neutrophils Percent Manual 46 % (45-73)
[2025-02-02 13:37] LABS: Acanthocytes 3+ (>5) /OIF; Pappenheimer Bodies PRESENT; RBC Morphology NOTED; Schistocytes 2+ (3-5) /OIF
[2025-02-02 13:38] LABS: Basophils Abs Manual 0.1 X10*3/uL (0.0-0.2); Eosinophils Absolute Manual 0.8 X10*3/uL (0.0-0.4); Large Platelet PRESENT; Lymphocytes Absolute Manual 2.9 X10*3/uL (1.2-4.9); Metamyelocytes Absolute 0.2 X10*3/uL; Monocytes Absolute Manual 0.2 X10*3/uL (0.1-1.2); Neutrophils Absolute Manual 3.6 X10*3/uL (2.0-8.3); Platelet Estimate NORMAL (NORMAL); Platelet Morphology Comment NOTED; White Blood Count 7.7 X10*3/uL (4.8-10.8)
--- NOTE | 2025-02-02 14:58 | PC.NURSE ---
Patient presents s/p angiogram this morning. States once he returned home felt weak, dizzy and sob. Called his manager body and then presented to the ED. Patient appears to have a multitude of chronic complaints. Lungs clear bilat. Respirations even and non-labored. Abdomen soft, non-tender with positive bowel sounds. No LE edema noted. Provider at the bedside.
--- OUTSIDE RECORDS SUMMARY | 2025-02-02 15:03 | XMS_ITS | Clinical Summary ---
Author Organization [facility], Address [address] [place] [address] [place] [address] Phone Care Team Providers Care Joint Cutter Name Role Phone Stuart Will NP Primary Care Provider [phone] Allergies Active Allergy Reactions Criticality Noted Date [...] patient's age to complete this topic [place] [address] [address] [place] [address] Care Teams Joint Cutter Relationship Specialty Start Date End Date Stuart Will [place] [address] PCP - General Nurse Practitioner 12/06/20
--- OUTSIDE RECORDS SUMMARY | 2025-02-02 15:03 | XMS_ITS | Clinical Summary ---
Author Organization [facility] Address [address] [place] [address] Phone Care Team Providers Care Water Resource Manager Name Role Phone Stuart Will NP Primary Care Provider Encounters Date Type Department Care Team Description 01/25/2025 Telephone [facility] [address] [place] [address] Stuart Will NP 01/25/2025 Telephone [facility] [address] [facility] [address] [place] [address] Stuart Will NP Referral (Received routine paper referral - January) 01/18/2025 Telephone [facility] [address] [place] [address] Physician, Pcp Unknown from Last [...] Description 08/21/2025 1:30 PM EST Office Visit [facility] [address] [place] [address] Stuart Hernandez MD [address] [place] [address],[address] [id number] Health Maintenance Due Date Last Done Comments [...] age to complete this topic Insurance MEDICARE [facility] Care Teams Water Resource Manager Relationship Specialty Start Date End Date Stuart Will NP [address] [place] [address] PCP - General Family Medicine 01/25/25
[2025-02-02] MEDS: 0.9 % Sodium Chloride 500 ML 999 ML IV (15:21)
== END 2025-02-02 16:42 | disposition home or self-care (01) ==
PROVIDERS: Physician Assistant; Physician Assistant Medical; Emergency Provider Emergency Medicine; PCP Nurse Practitioner Family
DX: R42 Dizziness and giddiness (principal); Z03.818 Encounter for observation for suspected exposure to other biological agents ruled out; R06.02 Shortness of breath; E11.9 Type 2 diabetes mellitus without complications; Z79.899 Other long term (current) drug therapy; Z79.4 Long term (current) use of insulin; I10 Essential (primary) hypertension
CPT/HCPCS: 0241U; 36415; 71046; 80053; 83735; 83880; 84484; 85007; 85027; 93005; 99283; 99285

== ENCOUNTER → 2025-02-02 12:17 | Outpatient (BNV) | payer BC, SELFPAY | PROVIDERS: PCP Nurse Practitioner Family; Visit Provider Radiology Diagnostic Radiology | DX: R42 Dizziness and giddiness (principal); R53.1 Weakness | CPT/HCPCS: 71046 ==

== ENCOUNTER 2025-02-15 02:34 | Emergency (ER) | payer BC, SELFPAY ==
--- NOTE | ~2025-02-15 | XR_ITS ---
CLINICAL HISTORY: chest pain Exam: PA and lateral views of the chest. Comparison: February 02, 2025. Findings: Mediastinal contours, cardiac silhouette, and pulmonary vasculature are within normal limits. Minor areas of atelectasis within the lung bases. No focal areas of consolidation. No pleural effusion or pneumothorax. Surgical clips within the left upper quadrant. Impression: No acute infiltrate. This document has been electronically signed by: Guillaume Meza MD on 02/15/2025 03:06:44
--- NOTE | 2025-02-15 02:36 | ECG_ITS ---
Test Reason : CP Blood Pressure : */* mmHG Vent. Rate : 92 BPM Atrial Rate : 92 BPM P-R Int : 176 ms QRS Dur : 66 ms QT Int : 348 ms P-R-T Axes : 57 -40 33 degrees QTcB Int : 430 ms Normal sinus rhythm Left axis deviation Inferior infarct , age undetermined Abnormal ECG When compared with ECG of 02-Feb-2025 12:23, Inferior infarct is now Present Nonspecific T wave abnormality now evident in Inferior leads Referred By: Generic ED Physician Electronically Signed By: STEVE GRIDER
[2025-02-15 02:47] VITALS: BP 107/64; PULSE 89; RESP 18; TEMP 37.1; O2SAT 98; BMI 27.2
[2025-02-15 02:57] LABS: Hematocrit 41.2 % (42.0-52.0); Hemoglobin 14.9 g/dl (14.0-18.0); Mean Corpuscular HGB Conc 36.2 g/dl (31.0-36.0); Mean Corpuscular Hemoglobin 31.8 pg (27.0-33.0); Mean Corpuscular Volume 87.8 fL (80.0-98.0); Mean Platelet Volume 11.3 fL (9.4-12.4); Platelet Count 365 X10*3/uL (160-400); Red Blood Count 4.69 X10*6/uL (4.60-5.80); Red Cell Distribution Width 13.4 % (11.0-16.0)
[2025-02-15 02:58] LABS: WBC ABN SCTR FOR CBC 1; White Blood Count 8.3 X10*3/uL (4.8-10.8)
--- NOTE | 2025-02-15 03:00 | ED_ITS ---
HPI - Chest Pain General Chief Complaint: Chest Pain Stated Complaint: CP Time Seen by Provider: 02/15/25 03:00 History of Present Illness ED Provider: Carmen CAVAZOS narrative: The patient is a 79-year-old male who comes to the emergency room for evaluation of chest pain. The patient was briefly hospitalized in 2020 for complaints of chest pain. At that time he had an unremarkable echocardiogram and a negative nuclear stress test that showed normal myocardial perfusion. More recently the patient had an outpatient chest CT that described severe coronary calcification. Since that time the patient has been very worried about the status of his coronary arteries. The patient came to the emergency room last month for chest pain and had a negative workup and was discharged. He has been trying to follow up with the excelsior picker but has not yet followed up. Tonight, while in bed, the patient had an episode of chest pain that lasted about 15 minutes. It resolved spontaneously. This was at around 22:00. He went back to sleep but at around 01:30 this morning he had another episode of discomfort on the left side of his chest that lasted less than 15 minutes. At that point he decided to come to the emergency room. 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 Related Data Home Medications ?Medication ?Instructions ?Recorded ?Confirmed zinc 50 mg capsule 50 mg PO DAILY 08/13/20 12/28/24 vitamin B complex 1 cap PO DAILY 10/14/20 12/28/24 berberine-herbal comb no.18 capsule 500 cap PO BID 12/31/22 12/28/24 resvertrol 06/01/23 12/28/24 ascorbate calcium (vitamin C) 500 1.5 g PO DAILY 07/07/23 12/28/24 mg tablet cholecalciferol (vitamin D3) 100 1,200 unit PO DAILY 09/27/23 12/28/24 mcg (4,000 unit) capsule latanoprost 0.005 % eye drops 1 drp ophthalmic (eye) QPM 03/21/24 12/28/24 alpha lipoic acid 200 mg capsule 200 mg PO BID 05/23/24 12/28/24 turmeric (bulk) 95 % powder 95 ea miscellaneous DAILY 07/24/24 12/28/24 (Curcumin) dorzolamide 2 % eye drops 2 drp ophthalmic (eye) DAILY 10/02/24 12/28/24 insulin NPH isoph U-100 human 100 30 unit subcut BID diabetes 12/28/24 12/28/24 unit/mL subcutaneous suspension (Humulin N NPH U-100 Insulin (isophane susp)) aspirin 81 mg tablet,delayed 81 mg PO DAILY 01/26/25 release (Adult Low Dose Aspirin) ginkgo biloba 40 mg tablet 40 mg PO DAILY 01/26/25 Previous Rx's ?Medication ?Instructions ?Recorded blood-glucose sensor (FreeStyle #6 ea 04/26/24 Nilsa 3 Sensor device) leg brace (Ankle Brace) #1 ea 06/28/24 blood sugar diagnostic (Contour #450 ea 09/01/24 Test Strips) insulin syringe-needle U-100 1 mL #200 ea 09/01/24 30 gauge x 1/2 (BD Insulin Syringe Ultra-Fine) Allergies Allergy/AdvReac Type Severity Reaction Status Date / Time penicillamine Allergy Unknown unknown Verified 02/15/25 02:49 Review of Systems 2 Review of Systems: Yes all other systems are reviewed and are negative [facility] Past Medical History Medical History BPH (benign prostatic hyperplasia) Urethral stricture Left foot drop 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 Vitamin D deficiency Cholecystectomy planned Osteoarthritis History of colon cancer CKD (chronic kidney disease) Sarcoidosis Partial nontraumatic amputation of right foot PVD (peripheral vascular disease) Diabetic retinopathy Spherocytosis Skin cancer Peripheral neuropathy Spinal stenosis Renal stones Pulmonary sarcoidosis Diabetes Surgical History History of amputation of foot History of ureter repair H/O splenectomy S/P ureteral reimplantation History of surgical removal of pilonidal cyst History of tonsillectomy and adenoidectomy H/O right hemicolectomy Status post laser lithotripsy of ureteral calculus Hx of cholecystectomy Hx of colonoscopy Family History Family History Mother Thyroid cancer Other Mental health disorder Social History Social History Household Members: Friend(s) Housing: House Are you a primary overnight caregiver to a significant other at home: No Do you presently have visiting nurse or other home services: No Alcohol intake: never Patient Tobacco Use Status: Never used Tobacco e-Cigarette/Vaping Use: Never Used Second Hand Smoke Exposure: No Advance Directives: Yes Advance Directives on File: Yes Advance Directives Date on File: 12/02/23 Do you have a plan to hurt others: No Plan service: No Current occupational status: employed and retired Cognitive needs: No Hearing needs: No Vision needs: No Physical Exam 2 Vital Signs: Vital Signs: Last Vital Signs Temp 97.9 F 02/15/25 04:15 Pulse 79 02/15/25 04:15 Resp 20 02/15/25 04:15 BP 98/63 02/15/25 04:15 Pulse Ox 99 02/15/25 04:15 O2 Del Method Room Air 02/15/25 04:15 BMI result Body Mass Index 27.2 Const: Other: The patient is a 79-year-old man who was awake, alert, pleasant, cooperative. He does not seem in any distress. Orientation/consciousness: patient oriented x3 HEENT: Other: Face is symmetrical, mucous membranes moist Eyes: General: appearance normal, both eyes and all related structures Neck: Neck: Yes full ROM and Yes no lymphadenopathy Chest: Other: no chest wall tenderness Resp: Effort & Inspection: normal respiratory effort Auscultation: clear to auscultation bilaterally Cardio: Rate: regular rate Rhythm: regular rhythm Heart sounds: S1 normal heart sound present and S2 normal heart sound present GI: Other: abdomen is soft and nontender Skin: Other: skin is dry and unremarkable Neuro: General: patient oriented x3, tone normal, moves all extremities, no focal motor deficits and CN's II-XI intact bilaterally Extrem: Other: no calf swelling or tenderness, no peripheral edema, no asymmetry Medical Decision Making Medical Decision Making [facility] Narrative: The patient is a 79-year-old male who presents for evaluation of 2 episodes of chest pain both of which were fairly brief. Both of which occurred at rest. Both of which did not seem to have significant associated symptoms. My overall impression is that the patient has significant anxiety about the status of his coronary arteries. My suspicion for a likely acute coronary syndrome is low. The patient has been pain-free during a period of observation in the emergency room. He has 2 normal troponins. His EKG shows no significant changes. My overall impression is that the patient probably has calcified coronary arteries but probably does not have occluded coronary arteries. The patient is waiting to be seen by the excelsior picker Dr. Long at [facility]. I think he can be discharged from the emergency room today to continue to try to follow up with Dr. Long. Lab Data 02/15/25 02:46 02/15/25 02:46 Labs: Lab Results 02/15/25 02/15/25 Range/Units 02:46 04:24 WBC 8.3 (4.8-10.8) X10*3/uL RBC 4.69 (4.60-5.80) X10*6/uL Hgb 14.9 (14.0-18.0) g/dl Hct 41.2 L (42.0-52.0) % MCV 87.8 (80.0-98.0) fL MCH 31.8 (27.0-33.0) pg MCHC 36.2 H (31.0-36.0) g/dl RDW 13.4 (11.0-16.0) % Plt Count 365 (160-400) X10*3/uL MPV 11.3 (9.4-12.4) fL Immature Gran % (Auto) Cancelled Neut % (Auto) Cancelled Lymph % (Auto) Cancelled Brooke % (Auto) Cancelled Eos % (Auto) Cancelled Baso % (Auto) Cancelled Lymph # (Auto) Cancelled Brooke # (Auto) Cancelled Eos # (Auto) Cancelled Baso # (Auto) Cancelled Abs Immat Gran (auto) Cancelled Absolute Neuts (auto) Cancelled Absolute Nucleated RBC 0.000 (0.0-0.012) X10*3/uL Nucleated RBC % (auto) 0.0 (0.0-0.2) /100WBC Neutrophils % (Manual) 42 L (45-73) % Band Neutrophils % 0 L (3-5) % Lymphocytes % (Manual) 46 H (20-40) % Monocytes % (Manual) 7 (2-11) % Eosinophils % (Manual) 4 (0-4) % Basophils % (Manual) 1 (0-2) % Abs Neuts (Manual) 3.5 (2.0-8.3) X10*3/uL Lymphocytes # (Manual) 3.8 (1.2-4.9) X10*3/uL Monocytes # (Manual) 0.6 (0.1-1.2) X10*3/uL Eosinophils # (Manual) 0.3 (0.0-0.4) X10*3/uL Basophils # (Manual) 0.1 (0.0-0.2) X10*3/uL Platelet Estimate NORMAL (NORMAL) Large Platelets PRESENT Plt Morphology Comment NOTE RBC Morphology NOTED Microcytosis 1+ (5-14) /OIF Pappenheimer Bodies PRESENT [place] Bodies PRESENT Hi Cells 2+ (3-5) /OIF Acanthocytes (Spur) 3+ (>5) /OIF Sodium 139 (135-145) mmol/L Potassium 3.9 (3.3-5.1) mmol/L Chloride 107 (96-108) mmol/L Carbon Dioxide 21 L (22-29) mmol/L Anion Gap 15 (12-20) BUN 19 H (9-16) mg/dL Creatinine 1.00 (0.5-1.4) mg/dL Estim Creat Clear Calc 64.8 Estimated GFR > 60 Random Glucose 99 (60-115) mg/dL Calcium 10.0 (8.4-10.2) mg/dL Troponin I High Sens 4.1 3.6 (<3.5-35.0) ng/L Independent Interpretation I performed an independent interpretation of an: EKG Interpretation: EKG at 02:37 shows normal sinus rhythm at 92 beats per minute. there are nonspecific changes compared to his most recent previous EKG from 02/02/2025 but is fairly similar to the EKG from . Discharge Plan Discharge Clinical Impression: Chest pain Patient Disposition: Home, Self-Care Additional Instructions: Your evaluation in the emergency room today is reassuring. Your troponins are normal. I think there is a good chance that even though your coronary arteries are calcified that you do not have a significant narrowing or blockage of your coronary arteries. I think it would likely be safe for you to try to increase your exertional activities. Please continue your efforts to get seen by Cardiology. Stay in touch with your primary care doctor in the meantime. Return to the emergency room if you feel significantly worse. Prescriptions: No Action (DME) Contour Test Strips Strip See Rx Instructions .Route Qty: 450 1RF Rx Instructions: 5 times a day (DME) insulin syringe-needle U-100 [BD Insulin Syringe Ultra-Fine] 1 mL 30 gauge x 1/2 syringe See Rx Instructions .Route Qty: 200 3RF Rx Instructions: Use to inject insulin twice per day vitamin B complex Capsule 1 cap PO DAILY latanoprost 0.005 % drops 1 drp ophthalmic (eye) QPM Humulin N NPH U-100 Insulin 100 unit/mL suspension 30 unit subcut BID zinc 50 mg Capsule 50 mg PO DAILY cholecalciferol (vitamin D3) 100 mcg (4,000 unit) capsule 1,200 unit PO DAILY berberine-herbal comb no.18 Capsule 500 cap PO BID ascorbate calcium (vitamin C) 500 mg tablet 1.5 g PO DAILY (DME) resvertrol 0 .Route .MEDSUPPLY (DME) FreeStyle Nilsa 3 Sensor Device See Rx Instructions .Route Qty: 6 1RF Rx Instructions: Test blood sugar 4 times per day alpha lipoic acid 200 mg capsule 200 mg PO BID (DME) Ankle Brace Misc See Rx Instructions .ROUTE .MEDSUPPLY Qty: 1 0RF Rx Instructions: LEFT AFO custom molded for foot drop Custom shoes, diabetic foot Curcumin 95 % powder 95 ea miscellaneous DAILY dorzolamide 2 % drops 2 drp ophthalmic (eye) DAILY aspirin [Adult Low Dose Aspirin] 81 mg tablet,delayed release (DR/EC) 81 mg PO DAILY ginkgo biloba 40 mg tablet 40 mg PO DAILY Rx Instructions: give with meal/snack Referrals: Stuart Will FNP-ARIK [Primary Care Provider] - (chest pain) Tian Long MD [Physician] - (chest pain) Print Language: Swedish
[2025-02-15 03:04] LABS: Anion Gap 15 (12-20); Blood Urea Nitrogen 19 mg/dL (9-16); Carbon Dioxide 21 mmol/L (22-29); Chloride 107 mmol/L (96-108); Creatinine Clr Calc Pharmacy 64.8; Estimated Glomerular Filt Rate > 60; Glucose Random 99 mg/dL (60-115); Potassium 3.9 mmol/L (3.3-5.1); Sodium 139 mmol/L (135-145)
[2025-02-15 03:12] LABS: Troponin-I High Sensitivity 4.1 ng/L (<3.5-35.0)
[2025-02-15 03:13] LABS: Band Neutrophils Percent 0 % (3-5); Basophils Abs Manual 0.1 X10*3/uL (0.0-0.2); Basophils Percent Manual 1 % (0-2); Eosinophils Absolute Manual 0.3 X10*3/uL (0.0-0.4); Eosinophils Percent Manual 4 % (0-4); Lymphocytes Absolute Manual 3.8 X10*3/uL (1.2-4.9); Lymphocytes Percent Manual 46 % (20-40); Monocytes Absolute Manual 0.6 X10*3/uL (0.1-1.2); Monocytes Percent Manual 7 % (2-11); Neutrophils Absolute Manual 3.5 X10*3/uL (2.0-8.3); Neutrophils Percent Manual 42 % (45-73)
[2025-02-15 03:17] LABS: Howell Jolly Bodies PRESENT; Pappenheimer Bodies PRESENT; RBC Morphology NOTED
[2025-02-15 03:18] LABS: Large Platelet PRESENT; Platelet Estimate NORMAL (NORMAL)
[2025-02-15 03:19] LABS: Acanthocytes 3+ (>5) /OIF; Burr Cells 2+ (3-5) /OIF
[2025-02-15 03:21] LABS: Microcytosis 1+ (5-14) /OIF; Platelet Morphology Comment NOTE
--- OUTSIDE RECORDS SUMMARY | 2025-02-15 03:25 | XMS_ITS | Clinical Summary ---
Author Organization [facility] Address [address] [place] [address] Phone Care Team Providers Care Regulatory Affairs Portfolio Leader Name Role Phone Stuart Will NP Primary Care Provider [phone] Encounters Date Type Department Care Team Description 01/25/2025 Telephone [facility] [address] [place] [address] Stuart Will NP 01/25/2025 Telephone [facility] [address] [facility] [address] [place] [address] Stuart Will NP Referral (Received routine paper referral - January) 01/18/2025 Telephone [facility] [address] [place] [address] Physician, Pcp Unknown from Last [...] Description 08/21/2025 1:30 PM EST Office Visit [facility] [address] [place] [address] Stuart Hernandez MD [address] [place] [address] [address] [id number] Health Maintenance Due Date Last Done Comments [...] age to complete this topic Insurance MEDICARE [facility] Care Teams Regulatory Affairs Portfolio Leader Relationship Specialty Start Date End Date Stuart Will NP [address] [place] [address] PCP - General Family Medicine 01/25/25
--- OUTSIDE RECORDS SUMMARY | 2025-02-15 03:25 | XMS_ITS ---
Author Organization [facility] Address [address] [place] [address] Care Team Providers Care Nuclear Instructor Name Role Phone Stuart Lozano Primary Care Provider Unav ailable Black, Marychuy Unavailable [phone] REASON FOR VISIT Balance Encounters Encounter Location Date Provider Diagnosis [address] [address] 11/23/2024 Marychuy Black Plan Of Treatment Next Appt Details Provider Name:Marychuy Archer Warren , 03/15/2025 02:30:00 PM, [address] [place], [address], Progress Notes * Casey SEWELL KDOB:[birth year] (79 yo M)Acc No.[id number]:11/23/2024 Patient:?Casey SEWELL :1945???Age:79 Y???Sex:Male Address:[address] [place] [address], [address] * true * Date:? Generated for Melanyi doreen/Lila/eTransmitting on:?02/15/2025 03:25 AM EDT
--- OUTSIDE RECORDS SUMMARY | 2025-02-15 03:25 | XMS_ITS ---
[facility] Address [address] [place] [address] Care Team Providers Care Home Therapy Teacher Name Role Phone Stuart Lozano Primary Care Provider Unav ailable Black, Marychuy Unavailable [phone] Allergies Allergen (clinical drug ingredient) Drug/Non Drug Allergy documented on EMR Reaction Allergy Type Onset Date Status 12 Hour Nasal [place] Unknown Drug Allergy [...] Twice a day for 30 days Active Pamplico 3-6-9 Not-Jd ng Timolol Maleate PF N [...] as directed Orally Active Vitamin D Active W15-Trrxsl Active Vitamin D3 Active Social History Tobacco [...] Ordered Date Performed Result Body Sit e 01455-YMKZPTP NAIL, 6 OR MORE 11/23/2024 N/A 59276-NGRM SKIN LESIONS, OVER 4 11/23/2024 N/A Encounters Encounter Location Date Provider Diagnosis [facility] [address] [place] [address] 11/23/2024 Marychuy Black Type 1 diabetes mellitus [...] days Pending Test Test Name Order Date 98085-HMDDHRF NAIL, 6 OR MORE 11/23/2024 49329-EIEO SKIN LESIONS, OVER 4 11/23/19 25 Next Appt Details Follow Up: prn, Reason: Provider Name:Marychuy Kelley , 03/15/2025 02:30:00 PM, [address] [place] [address], [phone], Procedure Notes * Category Sub-Category Detail Notes [...] use of a nail nipper and/or dremel-type slab grinder, to a more viable healthy nail [...] to maintain effectiveness in symptomatic relief - 24661 Keratoma Treatment Parring or Cutting o f [...] instrumentation by the physician of record - 93426 Progress Notes * Casey HUNT KDOB:[birth year] (79 yo M)Acc No.[id number]:11/23/2024 Progress Note Patient:?Casey HUNT Provider:?Marychuy Kelley DPM :1945???Age:79 Y???Sex:Male David e:11/23/2024 Address:[address] [place] [address] [phone] Pcp:IVORY Mattson Subjective: * Chief Complaints: * [...] kidney disease 04/2020 * Hospital[facility] Diagn[facility]ic [facility] - saw minerva bonilla [facility] chest pain [facility] Bladder Scan [facility]- Possible Heart Attack/Stress Anxiety/Covid 07/31 * Family [...] no. ?Marital status: single. 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 * Medications:?DufywjM26-Tjdgd e Vitamin D3 Resveratrol Flax Seed Oil Vitamin B Complex - Tablet as directed Orally Berberine HCI 500 MG Capsule as directed Orally Vitamin D HumuLIN N Zinc Vitamin C 500 MG Capsule as directed Orally Once a day Turmeric AFO-Hinged as directed Wear Daily Taking M81-Ccsilz Taking Vitamin D3 Taking Resveratrol Taking Flax [...] Release 1 tablet Orally Once a day Pamplico 3-6-9 Nattokinase 100 MG Capsule as directed [...] 1 tablet Orally Once a day Not-Taking/PRN Pamplico 3-6-9 Not-Taking/PRN Nattokinase 100 MG Capsule as [...] 30 days, 280, Refills 3.?? 3.?Tinea unguium?Procedure: 03587-KWXCZJJ NAIL, 6 OR MORE * Procedures:?Debride Nail [...] use of a nail nipper and/or dremel-type slab grinder, to a more viable healthy nail [...] to maintain effectiveness in symptomatic relief - 27007.?Keratoma Treatment:?Parring or Cutting of Benign Hyperkeratotic Lesion(s)?(-57) [...] instrumentation by the physician of record - 95373.? * Procedure Codes:?32473 TRIM SKIN LESIONS, OVER 4, Modifiers: XS 02050 DEBRIDE NAIL, 6 OR MORE, Modifiers: XS [...] Kelley DPM Date:?2024 Generated for Alfredo logan/Lila/eTransmitting on:?02/15/2025 03:25 AM EDT History and Physical Notes * [...]
--- OUTSIDE RECORDS SUMMARY | 2025-02-15 03:26 | XMS_ITS ---
Author Organization [facility] Address [address] [place] [address] Care Team Providers Care Beam Department Supervisor Name Role Phone MARC HERNANDEZ Primary Care Provider Ernesto Beck [phone] REASON FOR VISIT left message with answering service Encounters Encounter Location Date Provider Diagnosis [facility] [address] [place] [address] 10/03/2024 Ernesto Wu Plan Of Treatment Next Appt Details Provider Name:Ernesto Wu , 04/04/2025 02:20:00 PM, [address], [address], [place], [address], Progress Notes * MELISSA HUNT KDOB:[birth year] (79 yo M)Acc No.[id number]:10/03/2024 Patient:?MELISSA HUNT :1945???Age:79 Y???Sex:Male Address:[address] [place] [address] [place] [address] * true * Date:? Generated for Printi doreen/Lila/eTransmitting on:?02/15/2025 03:25 AM EDT
--- OUTSIDE RECORDS SUMMARY | 2025-02-15 03:26 | XMS_ITS ---
Author Organization [facility] Address [address] [place] [address] Care Team Providers Care Satellite Installer Name Role Phone MARC HERNANDEZ Primary Care Provider Ernesto Beck [phone] REASON FOR VISIT thinks he has ibs Medications Medication SIG (Take, Route, Fr equency, Duration) Notes Start Date End Date Status Dicyclomine HCl 10 MG 1 or 2 capsules Or ally Every 6 hours if needed for the IBS with abdominal cramps/discomfort for 30 days 02/02/2025 Ac tive Encounters Encounter Location Date Provider Diagnosis [facility] [address] [place] [address] 01/30/2025 Ernesto Wu Plan Of Treatment Medication Medication Name Sig Start Date Stop Date Notes Dicyclomine HCl 10 MG 1 or 2 capsules Or ally Every 6 hours if needed for the IBS with abdominal cramps/discomfort for 30 days 02/02/2025 Next Appt Details Provider Name:Ernesto uW , 04/04/2025 02:20:00 PM, [address] [facility], [address], [place], [address], Progress Notes * MELISSA HUNT KDOB:[birth year] (79 yo M)Acc No.[id number]:01/30/2025 Patient:?MELISSA HUNT :1945???Age:79 Y???Sex:Male Address:[address] [place] [address] * Refills? Start Dicyclomine HCl Capsule, 10 MG, Orally, 40, 1 or 2 capsules, Every 6 hours if needed for the IBS with abdominal cramps/discomfort, 30 days, Refills=3 * true * Date:? Generated for Alfredo logan/Lila/Dakotaitting on:?02/15/2025 03:26 AM EDT
--- OUTSIDE RECORDS SUMMARY | 2025-02-15 03:26 | XMS_ITS ---
Author Organization [facility] Address [address] [facility] [address] [place] [address] Care Team Providers Care Auto Painter Helper Name Role Phone MARC HERANNDEZ Primary Care Provider Ernesto Beck [phone] REASON FOR VISIT screening, hx polyps,hx colon ca Encounters Encounter Location Date Provider Diagnosis [facility] [address] [place] [id number] 10/09/2024 Ernesto Wu Plan Of Treatment Next Appt Details Provider Name:Ernesto Wu , 04/04/2025 02:20:00 PM, [address] [facility], [address], [place], [address], Progress Notes * MELISSA HUNT KDOB:[birth year] (79 yo M)Acc No.[id number]:10/09/2024 COLON WITH MAC Patient:?MELISSA HUNT Provider:?Ernesto Wu MD :1945???Age:79 Y???Sex:Male David e:10/09/2024 Address:[address] [place] [address] [facility] Pcp:MARC HERNANDEZ Subjective: * Chief Complaints: * [...] MD Date:? 024 Generated for Alfredo logan/Lila/Dakotaitting on:?02/15/2025 03:26 AM EDT
--- OUTSIDE RECORDS SUMMARY | 2025-02-15 03:26 | XMS_ITS ---
Author Organization [facility] Address [address] [place] [address] Care Team Providers Care Customer Success Associate Name Role Phone Stuart Lozano Primary Care Provider Unav ailable Black, Marychuy Unavailable [phone] REASON FOR VISIT rx for AFO Encounters Encounter Location Date Provider Diagnosis [address] [address] 08/22/2024 Marychuy Black Plan Of Treatment Next Appt Details Provider Name:Marychuy Archer Warren , 03/15/2025 02:30:00 PM, [address] [place], [address], Progress Notes * Casey SEWELL KDOB:[birth year] (79 yo M)Acc No.[id number]:08/22/2024 Patient:?Casey SEWELL :1945???Age:79 Y???Sex:Male Address:[address] [place] [address] [place], [address] * true * Date:? Generated for Printi ng/Fadoeg/eTransmitting on:?02/15/2025 03:25 AM EDT
--- OUTSIDE RECORDS SUMMARY | 2025-02-15 03:26 | XMS_ITS | Patient Health Record ---
Author Organization [facility] Address [address] [place] [address] Care Team Providers Care Provider Contracting Consultant Name Role Phone MARC HERNANDEZ Primary Care Provider Ernesto Beck [phone] Allergies No Known Allergies Reason For Referral No Information Medications Medication SIG (Take, Route, Frequency, Duration) Notes Start Date End Date Status Vitamin B Complex - as directed Orally [...] ected Subcutaneous BID Active Ibuprofen PRN Not-Taking Dicyclomine HCl 10 MG 1 or 2 capsules Or ally Every 6 hours if needed for the IBS with abdominal cramps/discomfort for 30 days 02/02/2025 Active Dicyclomine HCl 10 MG 1 or 2 [...] INSULIN TWICE PER DAY for 90 Active Immunizations Vaccine Route Administration Date Status [...] Problem Status W/U Status Risk Notes Problem 978694348 Encounter for screening for malignant neoplasm of colon (Z12.11) Active confirmed Problem 187086425 History of adenomatous polyp of colon (Z86.010) Active confirmed Problem 258820753 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 Problem 703799235097752 Preprocedural examination (Z01.818) Active confirmed Problem 758251310 History of colon cancer (Z85.038) Active confirmed Problem 38277996 Constipation, unspecified constipation type (K59.00) Active confirmed Problem Diverticulosis of colon (639706056) Diverticulosis of colon (K57.30) Active confirmed Problem History of gastrointestinal tract bypass (584404335) Hx of Billroth II operation (Z98.0) Active confirmed Vital Signs Temperature 97.7 degrees Fahrenheit 03/08/2024 Blood pressure diastolic 00 mm Hg 03/08/2024 Height 71.5 in 03/08/2024 Blood pressure systolic 000 mm Hg 03/08/2024 Weight 214 lbs 03/08/2024 BMI 29.43 kg/m2 03/08/2024 Encounters Encounter Location Date Provider Diagnosis [facility] [address] [place] [address] 03/08/2024 Ernesto Wu History of adenomato us polyp of colon Z86.010 ; Preprocedural examination Z01.818 ; Encounter for screening for malignant neoplasm of colon Z12.11 ; History of colon cancer Z85.038 and Constipation, unspecified constipation type K59.00 [facility] [address] [place] [address] 09/12/2024 Ernesto Wu [facility] [address] [place] [address] 10/03/2024 Ernesto Wu [facility] [address] [place] [address] 01/30/2025 Ernesto Wu Assessments Encounter Date Diagnosis (ICD [...] Provider Name:Ernesto Wu , 04/04/2025 02:20:00 PM, [address] [place] [address], [address], [place], [address], Insurance Providers Payer Name Payer Address Payer Phone Subscriber Number Group Number Insured Name Patient Relationship to Insured Coverage Start Date Coverage End Date [facility] [address] [place], [place] [id number] MELISSA ELDER Self - patient is the insured Medical (General) History Medical History History ICD Code Denies [place],CVA,Lung [...] surgery for stones with Jazlyn Liriano at [facility]
[2025-02-15 04:15] VITALS: BP 98/63; PULSE 79; RESP 20; TEMP 36.6; O2SAT 99
[2025-02-15 04:51] LABS: Troponin-I High Sensitivity 3.6 ng/L (<3.5-35.0)
[2025-02-15 05:32] VITALS: BP 98/63; PULSE 79; RESP 20; TEMP 36.6; O2SAT 99
== END 2025-02-15 05:32 | disposition home or self-care (01) ==
PROVIDERS: Emergency Provider Emergency Medicine; PCP Nurse Practitioner Family
DX: R07.9 Chest pain, unspecified (principal)
CPT/HCPCS: 36415; 71046; 80048; 84484; 85007; 85025; 85027; 93005; 99284

== ENCOUNTER → 2025-02-15 02:36 | Outpatient (BNV) | payer BC, SELFPAY | PROVIDERS: Emergency Provider Emergency Medicine; PCP Nurse Practitioner Family; Visit Provider Internal Medicine | DX: R94.31 Abnormal electrocardiogram [ECG] [EKG] (principal); R07.9 Chest pain, unspecified | CPT/HCPCS: 93010 ==

== ENCOUNTER → 2025-02-15 02:49 | Outpatient (BNV) | payer BC, SELFPAY | PROVIDERS: Emergency Provider Emergency Medicine; PCP Nurse Practitioner Family; Visit Provider Radiology Diagnostic Radiology | DX: R07.9 Chest pain, unspecified (principal) | CPT/HCPCS: 71046 ==

== ENCOUNTER 2025-02-23 12:28 | Outpatient (AMB) | payer BC, SELFPAY ==
--- OUTSIDE RECORDS SUMMARY | 2025-02-23 12:30 | XMS_ITS | Patient Health Record ---
Author Organization 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 Problem 778737295147025 Preprocedural examination (Z01.818) Active confirmed Problem 338149969 History of colon cancer (Z85.038) Active confirmed Problem 11230592 Constipation, unspecified constipation type (K59.00) Active confirmed Problem Diverticulosis of colon (320252920) Diverticulosis of colon (K57.30) Active confirmed Problem 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) Active confirmed Vital Signs Temperature 97.7 degrees Fahrenheit 03/08/2024 Blood pressure diastolic 00 mm Hg 03/08/2024 Height 71.5 in 03/08/2024 Blood pressure systolic 000 mm Hg 03/08/2024 Weight 214 lbs 03/08/2024 BMI 29.43 kg/m2 03/08/2024 Encounters Encounter Location Date Provider Diagnosis [facility] [address] [place] [address] 03/08/2024 Ernesto Wu History of adenomato us polyp of colon Z86.010 ; Preprocedural examination Z01.818 ; Encounter for screening for malignant neoplasm of colon Z12.11 ; History of colon cancer Z85.038 and Constipation, unspecified constipation type K59.00 [facility] [address] [place] [address] 09/12/2024 Ernesto Wu [facility] [address] [place] [address] 10/03/2024 Ernesto Wu [facility] [address] [place] [address] 01/30/2025 Ernesto Wu Assessments Encounter Date Diagnosis [...] Provider Name:Ernesto Wu , 04/04/2025 02:20:00 PM, [address] [place] [address], [address], [place], [address], Insurance Providers Payer Name Payer Address Payer Phone Subscriber Number Group Number Insured Name Patient Relationship to Insured Coverage Start Date Coverage End Date [facility] [address] [place], [place] [id number] MELISSA ELDER Self - patient is the insured Medical (General) History Medical History History ICD Code Denies CT,CVA,Lung disease,renal disease IDDM Pulmonary sarcoidosis--inactive Spherocytosis Colonoscopy [...] surgery for stones with Jazlyn Liriano at [facility]
--- OUTSIDE RECORDS SUMMARY | 2025-02-23 12:30 | XMS_ITS | Clinical Summary ---
Author Organization [facility] Address [address] [place] [address] Phone Care Team Providers Care Event Promotions Coordinator Name Role Phone Stuart Will NP Primary Care Provider [phone] Encounters Date Type Department Care Team Description 01/25/2025 Telephone [facility] [address] [place] [address] Stuart Will NP 01/25/2025 Telephone [facility] [address] [facility] [address] [place] [address] Stuart Will NP Referral (Received routine paper referral - January) 01/18/2025 Telephone [facility] [address] [place] [address] Physician, Pcp Unknown from Last [...] Care Team (Late st Contact Info) Description 05/28/2025 3:00 PM EDT Office Visit [facility] [address] [place] [address] Stuart Hernandez MD [address] [place] [address],[address] [id number] Health Maintenance Due Date Last Done Comments [...] age to complete this topic Insurance MEDICARE [facility] Care Teams Event Promotions Coordinator Relationship Specialty Start Date End Date Stuart Will NP [address] [place] [address] PCP - General Family Medicine 01/25/25
--- OUTSIDE RECORDS SUMMARY | 2025-02-23 12:30 | XMS_ITS ---
Author [facility] [place] Address [address] [place] [address] Care Team Providers Care Turning Machine Operator Name Role Phone Stuart Lozano Primary Care Provider Unav ailable Black, Marychuy Unavailable [phone] Allergies Allergen (clinical drug ingredient) Drug/Non Drug Allergy documented on EMR Reaction Allergy Type Onset Date Status 12 Hour Nasal [place] Unknown Drug Allergy Active Dust Mites Unknown [...] Twice a day for 30 days Active Elkins 3-6-9 Not-Jd ng Timolol Maleate PF N [...] as directed Orally Active Vitamin D Active N36-Lyrirg Active Vitamin D3 Active Social History Tobacco [...] Ordered Date Performed Result Body Sit e 50824-QADHXVL NAIL, 6 OR MORE 11/23/2024 N/A 40936-PMNE SKIN LESIONS, OVER 4 11/23/2024 N/A Encounters Encounter Location Date Provider Diagnosis [facility] [address] [place] [address] 11/23/2024 Marychuy Black Type 1 diabetes mellitus [...] days Pending Test Test Name Order Date 29040-BUMSPVQ NAIL, 6 OR MORE 11/23/2024 28425-YQRS SKIN LESIONS, OVER 4 11/23/19 25 Next Appt Details Follow Up: prn, Reason: Provider Name:Marychuy Kelley , 03/15/2025 02:30:00 PM, [address] [place] [address], [address], Procedure Notes * Category Sub-Category Detail Notes [...] use of a nail nipper and/or dremel-type internal grinder tender, to a more viable healthy [...] to maintain effectiveness in symptomatic relief - 42681 Keratoma Treatment Parring or Cutting o f [...] instrumentation by the physician of record - 12118 Progress Notes * Casey HUNT KDOB:[birth year] (79 yo M)Acc No.[id number]:11/23/2024 Progress Note Patient:?Casey HUNT Provider:?Marychuy Kelley DPM :1945???Age:79 Y???Sex:Male David e:11/23/2024 Address:[address] [place] [address] [facility] Pcp:IVORY Mattson Subjective: * Chief Complaints: * [...] kidney disease 04/2020 * Hospitalization[facility] Diagn[facility] stic [facility] right [facility] - saw minerva bonilla [facility]- chest pain 10/31[facility]- [facility] Scan [facility]- Bladder Scan [facility]- Possible Heart Attack/Stress Anxiety/Covid 07/31 * [...] no. ?Marital status: single. 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 * Medications:?WfaduzL05-Vslfi e Vitamin D3 Resveratrol Flax Seed Oil Vitamin B Complex - Tablet as directed Orally Berberine HCI 500 MG Capsule as directed Orally Vitamin D HumuLIN N Zinc Vitamin C 500 MG Capsule as directed Orally Once a day Turmeric AFO-Hinged as directed Wear Daily Taking K75-Hanmlq Taking Vitamin D3 Taking Resveratrol Taking Flax [...] Release 1 tablet Orally Once a day Elkins 3-6-9 Nattokinase 100 MG Capsule as directed [...] 1 tablet Orally Once a day Not-Taking/PRN Elkins 3-6-9 Not-Taking/PRN Nattokinase 100 MG Capsule as [...] 30 days, 280, Refills 3.?? 3.?Tinea unguium?Procedure: 15648-JHAYELE NAIL, 6 OR MORE * Procedures:?Debride Nail [...] use of a nail nipper and/or dremel-type internal grinder tender, to a more viable healthy [...] to maintain effectiveness in symptomatic relief - 16163.?Keratoma Treatment:?Parring or Cutting of Benign Hyperkeratotic Lesion(s)?(-57) [...] instrumentation by the physician of record - 76555.? * Procedure Codes:?25443 TRIM SKIN LESIONS, OVER 4, Modifiers: XS 84732 DEBRIDE NAIL, 6 OR MORE, Modifiers: XS [...] Kelley DPM Date:?2024 Generated for Alfredo logan/Lila/eTransmitting on:?02/23/2025 12:29 PM EDT History and Physical Notes * [...]
--- OUTSIDE RECORDS SUMMARY | 2025-02-23 12:30 | XMS_ITS ---
Author Organization [facility] Address [address] [facility] [address] [place] [address] Care Team Providers Care Business Development Recruiter Name Role Phone MARC HERNANDEZ Primary Care Provider Ernesto Beck [phone] REASON FOR VISIT screening, hx polyps,hx colon ca Encounters Encounter Location Date Provider Diagnosis [facility] [address] [place], [place] [id number] 10/09/2024 Ernesto Wu Plan Of Treatment Next Appt Details Provider Name:Ernesto Wu , 04/04/2025 02:20:00 PM, [address] [facility], [address], [place], [address], Progress Notes * MELISSA HUNT KDOB:[birth year] (79 yo M)Acc No.[id number]:10/09/2024 COLON WITH MAC Patient:?MELISSA HUNT Provider:?Ernesto Wu MD :1945???Age:79 Y???Sex:Male David e:10/09/2024 Address:[address] [place] [address] [facility] Pcp:MARC HERNANDEZ Subjective: * Chief Complaints: * [...] MD Date:? 024 Generated for Alfredo logan/Lila/Dakotaitting on:?02/23/2025 12:30 PM EDT
--- OUTSIDE RECORDS SUMMARY | 2025-02-23 12:30 | XMS_ITS ---
Author Organization [facility] Address [address] [place] [address] Care Team Providers Care Elevator Runner Name Role Phone Stuart Lozano Primary Care Provider Unav ailable Black, Marychuy Unavailable [phone] REASON FOR VISIT rx for AFO Encounters Encounter Location Date Provider Diagnosis [address] [address] 08/22/2024 Marychuy Black Plan Of Treatment Next Appt Details Provider Name:Marychuy Archer Warren , 03/15/2025 02:30:00 PM, [address] [place], [address], Progress Notes * Casey SEWELL KDOB:[birth year] (79 yo M)Acc No.[id number]:08/22/2024 Patient:?Casey SEWELL :1945???Age:79 Y???Sex:Male Address:[address] [place] [address] [place], [address] * true * Date:? Generated for Printi ng/Faxing/eTransmitting on:?02/23/2025 12:30 PM EDT
--- OUTSIDE RECORDS SUMMARY | 2025-02-23 12:31 | XMS_ITS ---
Author Organization [facility] Address [address] [place] [address] Care Team Providers Care Meat Pumper Name Role Phone MARC HERNANDEZ Primary Care Provider Ernesto Beck [phone] REASON FOR VISIT thinks he has ibs Medications Medication SIG (Take, Route, Fr equency, Duration) Notes Start Date End Date Status Dicyclomine HCl 10 MG 1 or 2 capsules Or ally Every 6 hours if needed for the IBS with abdominal cramps/discomfort for 30 days 02/02/2025 Ac tive Encounters Encounter Location Date Provider Diagnosis [facility] [address] [facility] [address] [place] [address] 01/30/2025 Ernesto Wu Plan Of Treatment Medication Medication Name Sig Start Date Stop Date Notes Dicyclomine HCl 10 MG 1 or 2 capsules Or ally Every 6 hours if needed for the IBS with abdominal cramps/discomfort for 30 days 02/02/2025 Next Appt Details Provider Name:Ernesto Wu , 04/04/2025 02:20:00 PM, [address] [facility], [address], [place], [address], Progress Notes * MELISSA HUNT KDOB:[birth year] (79 yo M)Acc No.[id number]:01/30/2025 Patient:?MELISSA HUNT :1945???Age:79 Y???Sex:Male Address:[address] [place] [address] * Refills? Start Dicyclomine HCl Capsule, 10 MG, Orally, 40, 1 or 2 capsules, Every 6 hours if needed for the IBS with abdominal cramps/discomfort, 30 days, Refills=3 * true * Date:? Generated for Alfredo logan/Lila/Dakotaitting on:?02/23/2025 12:31 PM EDT
--- OUTSIDE RECORDS SUMMARY | 2025-02-23 12:31 | XMS_ITS ---
Author Organization [facility] Address [address] [place] [address] Care Team Providers Care Pump Tester Name Role Phone Stuart Lozano Primary Care Provider Unav ailable Black, Marychuy Unavailable [phone] REASON FOR VISIT Balance Encounters Encounter Location Date Provider Diagnosis [address] [address] 11/23/2024 Marychuy Black Plan Of Treatment Next Appt Details Provider Name:Marychuy Archer Warren , 03/15/2025 02:30:00 PM, [address] [place], [address], Progress Notes * Casey SEWELL KDOB:[birth year] (79 yo M)Acc No.[id number]:11/23/2024 Patient:?Casey SEWELL :1945???Age:79 Y???Sex:Male Address:[address] [place] [address], [address] * true * Date:? Generated for Printi doreen/Lila/eTransmitting on:?02/23/2025 12:30 PM EDT
--- OUTSIDE RECORDS SUMMARY | 2025-02-23 12:31 | XMS_ITS | Clinical Summary ---
Author Organization [facility], Address [address] [place] [address] [place] [address] Phone Care Team Providers Care Compliance Mgr Name Role Phone Stuart Will NP Primary Care Provider [phone] Allergies Active Allergy Reactions Criticality Noted Date [...] patient's age to complete this topic [place] [address] [place] [address] Care Teams Compliance Mgr Relationship Specialty Start Date End Date Stuart Will NP [facility] [place] [address] PCP - General Nurse Practitioner 12/06/20
--- OUTSIDE RECORDS SUMMARY | 2025-02-23 12:31 | XMS_ITS | Patient Health Record ---
[facility] Address [address] [place] [address] Care Team Providers Care Cider Maker Name Role Phone Stuart Lozano Primary Care Provider Unav ailable Black, Marychuy Unavailable [phone] Allergies Allergen (clinical drug ingredient) Drug/Non Drug Allergy documented on EMR Reaction Allergy Type Onset Date Status 12 Hour Nasal [place] Unknown Drug Allergy Active Dust Mites Unknown [...] Multivitamins Not-Jacek hensley Ascorbic Acid Not-Jacek hensley F26-Afznex Active Aspirin 81 MG 1 tablet Orally Once a day for 30 day(s) Not-Taking Vitamin D3 Active Resveratrol Active Lovastatin Not-Takin g Magnesium Not-Taking Flax Seeds - as directed Orally Not-Taking Aspirin 81 81 MG 1 tablet Orally Once a day Not-Taking [place] 3-6-9 Not-Taki ng Immunizations Vaccine Route Administration [...] Problem Acquired hammer toe of right foot (0799510449176996) Other hammer toe(s) (acquired), right foot (M20.41) Active confirmed Problem Acquired hammer toe of left foot (8271711959581566) Other hammer toe(s) (acquired), left foot (M20.42) Active confirmed Problem Non-pressure ulcer lower limb (819539064) Non-pressure chronic ulcer of other part of right foot limited to breakdown of skin (L97.511) Active confirmed Problem Polyneuropathy due to diabetes mellitus type I (342718894) 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 Problem Hammer toe (356600034) Hammer toe of left foot (M20.42) Active confirmed Problem 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 (914608038792280) Charcot foot due to diabetes mellitus (E11.610) Active confirmed Problem Unsteady gait (94277358) Unsteady gait (R26.81) Active confirmed Problem Ankle ulcer (075410168) Skin ulcer of right ankle, limited to breakdown of skin (L97.311) Active confirmed Problem Ulcer of toe of right foot (disorder) (60825591787222216) Skin ulcer of toe of right foot, limited to breakdown of skin (L97.511) Active confirmed Problem Acquired equinovarus deformity (79791281) 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) Active confirmed Problem [id number] Skin ulcer of toe of left foot, limited to breakdown of skin (L97.521) Active confirmed Vital Signs Blood pressure diastolic 65 mm Hg 11/23/2024 Height 5ft 11in in 11/23/2024 Blood pressure systolic 110 mm Hg 11/23/2024 Weight 215 lbs 11/23/2024 BMI 29.98 kg/m2 11/23/2024 Procedures Procedure Date Ordered Date Performed Result Body Sit e 19407-WCONMMM NAIL, 6 OR MORE 05/11/2024 N/A 81063-BTVH SKIN LESIONS, OVER 4 05/11/2024 N/A 20003-MTTLMJJ NAIL, 1-5 08/17/2024 N/A 90634-Wojximsm Plate 08/17/2024 N/A 19953-Jhjgppom Plate Each Additional 08/17/2024 N/A 65945-ZVOL SKIN LESIONS, OVER 4 08/17/2024 N/A 11246-EHYJMDO NAIL, 6 OR MORE 11/23/2024 N/A 23569-NXQP SKIN LESIONS, OVER 4 11/23/2024 N/A Encounters Encounter Location Date Provider Diagnosis [address] [address] 05/11/2024 Marychuy Black Type 1 diabetes mellitus with diabetic polyneuropathy E10.42 and Tinea unguium B35.[address] [address] 08/17/2024 Marychuy Black Type 1 diabetes mellitus with diabetic polyneuropathy E10.42 ; Tinea unguium B35.1 ; Ingrown nail L60.0 and Skin ulcer of toe of left foot, limited to breakdown of skin L97.[address] [address] 11/23/2024 Marychuy Black Type 1 diabetes mellitus with diabetic polyneuropathy E10.42 ; Xerosis of skin L85.3 and Tinea unguium B35.[address] [address] 04/18/2024 Marychuymerline Kelley [address] [address] 08/22/2024 Marychuymerline Kelley [address] [address] 11/23/2024 Marychuy Black Assessments Encounter Date Diagnosis [...] Test Name Order Date Hemoglobin A1c 12/02/2015 91068-ZFDBFDY NAIL, 6 OR MORE 11/23/2024 36513-NWUMZVL NAIL, 6 OR MORE 05/11/2024 43065-IRKETPG NAIL, 6 OR MORE 07/08/2023 95594-VMIECDT NAIL, 6 OR MORE 10/21/2023 92201-UOBTVNP NAIL, 6 OR MORE 12/02/2020 51687-BRYWSJW NAIL, 6 OR MORE 03/13/2021 04882-EEQSBXN NAIL, 6 OR MORE 06/09/2021 59209-GQHKFNJ NAIL, 6 OR MORE 09/08/2021 28219-QRYXSTI NAIL, 6 OR MORE 01/30/2022 63201-JVVEFHU NAIL, 6 OR MORE 06/22/2022 39724-OKZXKDC NAIL, 6 OR MORE 09/28/2022 86498-SFKRLTZ NAIL, 6 OR MORE 12/28/2022 07723-ITDEIZQ NAIL, 6 OR MORE 04/05/2023 74837-XVWSODC NAIL, 6 OR MORE 10/01/2011 12285-AJUQHHV NAIL, 6 OR MORE 12/03/2011 31696-KKOJZXK NAIL, 6 OR MORE 03/03/2012 86603-YHUSGFM NAIL, 6 OR MORE 06/02/2012 79241-AGHCQKM NAIL, 6 OR MORE 11/03/2012 27731-FXCCHFM NAIL, 6 OR MORE 01/23/2013 77714-XMOUCVT NAIL, 6 OR MORE 04/03/2013 17121-CFNNTOS NAIL, 6 OR MORE 06/28/2013 64661-UWEGQLV NAIL, 6 OR MORE 09/13/2013 29710-UALLOLC NAIL, 6 OR MORE 12/13/2013 51401-URJJMFK NAIL, 6 OR MORE 03/22/2014 41944-GLZNEWC NAIL, 6 OR MORE 06/21/2014 35771-SHXGCTV NAIL, 6 OR MORE 09/20/2014 25644-MIBGIOY NAIL, 6 OR MORE 12/06/2014 07964-TREKLIO NAIL, 6 OR MORE 02/21/2015 55451-CEKUIUH NAIL, 6 OR MORE 05/13/2015 95939-ZPJUQQI NAIL, 6 OR MORE 09/09/2015 95931-ZKYRCIV NAIL, 6 OR MORE 12/02/2015 53457-QIMAOWX NAIL, 6 OR MORE 02/24/2016 45034-RZQKFVM NAIL, 6 OR MORE 06/01/2016 99156-QJQGHYJ NAIL, 6 OR MORE 08/27/2016 82785-GGRROQV NAIL, 6 OR MORE 12/07/2016 49720-LDFTBRW NAIL, 6 OR MORE 03/11/2017 33088-OLUFMYH NAIL, 6 OR MORE 06/24/2017 07920-VBLWQRS NAIL, 6 OR MORE 09/27/2017 45470-ENSGGBE NAIL, 6 OR MORE 12/27/2017 68671-WVGKSYS NAIL, 6 OR MORE 06/02/2018 00009-TPGTBPK NAIL, 6 OR MORE 08/25/2018 93032-XORTPTE NAIL, 6 OR MORE 11/24/2018 33021-ZTOJJAA NAIL, 6 OR MORE 03/09/2019 30615-TLEEPLC NAIL, 6 OR MORE 06/05/2019 56026-TPITFHF NAIL, 6 OR MORE 09/18/2019 63418-IMHEPAV NAIL, 6 OR MORE 03/11/2020 41664-FFOQJGR NAIL, 6 OR MORE 06/13/2020 98935-IUTVFAI NAIL, 6 OR MORE 09/23/2020 82641-WKYCQCS NAIL, 1-5 01/20/2024 04063-RRGZZSX NAIL, 1-5 08/17/2024 28274-Traw Destruction, -14 09/08/2021 45634-Lwkv Destruction, -14 06/09/2021 02357-Usww Destruction, -14 03/11/2020 19112-Nuzt Destruction, -14 06/05/2019 23275-Ftxt Destruction, -14 09/18/2019 66238-Dubd Destruction, -14 03/09/2019 94651-Eglz Destruction, -14 05/13/2015 70400-Sqji Destruction, -14 02/21/2015 49600-Ngps Destruction, -14 12/06/2014 27221-Vypw Destruction, 10-2409/20/2014 00458-Gupn Destruction, 10-2406/21/2014 17110-Evgl Destruction, 10-2403/22/2014 19669-Ulkj Destruction, 10-2412/13/2013 98132-Jqdo Destruction, 10-2409/13/2013 33770-Ltlk Destruction, 10-2406/28/2013 48314-Bjik Destruction, 10-2404/03/2013 74886-Sglz Destruction, 10-2401/23/2013 20445-Mauf Destruction, 10-2411/03/2012 70640-Abzr Destruction, 10-2406/02/2012 59333-Zxak Destruction, 10-2410/01/2011 65144-Bdra Destruction, 10-2403/03/2012 86838-Zcqm Destruction, 10-2412/03/2011 73805-Hyoquyou Plate 03/03/2012 48786-Ijsalrec Plate 12/03/2011 72692-Fflvhztv Plate 06/02/2012 63147-Sopoawvc Plate 01/23/2013 50497-Vccmnrra Plate 04/03/2013 01778-Hchyvgzq Plate 06/28/2013 00444-Yngawkxp Plate 09/13/2013 56298-Hhinbwlg Plate 12/13/2013 93226-Phktkahj Plate 03/22/2014 47798-Rqonotcg Plate 06/21/2014 01157-Xxgnucni Plate 09/20/2014 69351-Zgchooxq Plate 12/06/2014 30048-Coaawqcw Plate 02/21/2015 29818-Aqmddgle Plate 05/13/2015 84653-Uwyfhhdw Plate 12/27/2017 58903-Eysqkkio Plate 06/05/2019 04317-Ewrxpsuc Plate 11/24/2018 02075-Zoqrczxq Plate 03/09/2019 51674-Staqstmm Plate 08/25/2018 74958-Mkpukkir Plate 09/18/2019 78452-Msfziubn Plate 03/11/2020 87261-Avswdipg Plate 09/27/2017 56282-Jwxxdviq Plate 12/07/2016 72360-Aajmznff Plate 08/27/2016 99959-Djtdkeyg Plate 06/01/2016 54539-Mopxksmm Plate 02/24/2016 75148-Nagrxkot Plate 12/02/2015 13197-Jmzvjnlp Plate 11/03/2012 58170-Pokckjmc Plate 09/09/2015 04230-Ldkzndrw Plate 06/09/2021 76340-Hnnihopo Plate 06/13/2020 28423-Lyyhbmkr Plate 09/08/2021 59207-Wsrmedlk Plate 03/13/2021 88268-Wbmzeixt Plate 09/23/2020 36868-Isgfwxso Plate 01/30/2022 83569-Fermmoyk Plate 06/22/2022 84799-Djoztyej Plate 08/17/2024 46856-Oincbpgp Plate 01/20/2024 52668-Mvbjmjwk Plate Each Additional 09/2022 75161-Vkcfhsbb Plate Each Additional 04/2024 28490-Brnvzyai Plate Each Additional 59151-Ajzsbkkm Plate Each Additional 44732-Schknssk Plate Each Additional 12/2020 33944-Noyxpano Plate Each Additional 47619-Dxbtbmcg Plate Each Additional 02331-Jfrhfoae Plate Each Additional 55395-Zeojhfbf Plate Each Additional 51565-Jbgsnplc Plate Each Additional 77877-Evbgqjmb Plate Each Additional 75046-Rmjwajrq Plate Each Additional 39299-Osrfdmgv Plate Each Additional 06146-Ljhlmjqy Plate Each Additional 95207-Xewzqtft Plate Each Additional 06/2019 14074-Tmfnqgup Plate Each Additional 10/2019 21161-Nwjanxnf Plate Each Additional 81281-Fdoaijhx Plate Each Additional 82198-Dinxaddm Plate Each Additional 55105-Npjajnlz Plate Each Additional 12/2014 51233-Tjzxutxa Plate Each Additional 94197-Awcqlohk Plate Each Additional 17312-Pshuguri Plate Each Additional 08/2014 06702-Ydyxgqod Plate Each Additional 08/2014 22214-Scktnwwz Plate Each Additional 09/2014 78008-Pzcwwbko Plate Each Additional 02/2014 24813-Wtdwdyfl Plate Each Additional 01/2013 78995-Qazixwxj Plate Each Additional 59622-Jcsltbwq Plate Each Additional 21986-Ixbnbatq Plate Each Additional 60474-Dhsssmcm Plate Each Additional 87277-Mszguowp Plate Each Additional 26173- Debride <25 sq cm 06/13/2020 10130- Debride <25 sq cm 04/05/2023 98972 I&D ABSCESS- SIMPLE,SINGLE 013 12474 I&D ABSCESS- SIMPLE,SINGLE 013 57593-ASUZ SKIN LESIONS, OVER 4 01/24/20 13 75698-YRGT SKIN LESIONS, OVER 4 11/03/19 13 71097-FBUC SKIN LESIONS, OVER 4 04/03/20 13 16740-TOOB SKIN LESIONS, OVER 4 06/28/20 13 11608-VGHR SKIN LESIONS, OVER 4 09/13/20 13 88058-BOWD SKIN LESIONS, OVER 4 12/14/19 14 65472-JBAX SKIN LESIONS, OVER 4 03/22/20 14 55658-NTJR SKIN LESIONS, OVER 4 06/21/20 14 61234-YWVE SKIN LESIONS, OVER 4 09/20/20 14 17075-VBTD SKIN LESIONS, OVER 4 12/06/19 15 14200-AUQO SKIN LESIONS, OVER 4 02/22/20 15 54797-LZZM SKIN LESIONS, OVER 4 05/13/20 15 99860-QSDQ SKIN LESIONS, OVER 4 06/13/20 20 76076-PIQJ SKIN LESIONS, OVER 4 09/23/20 20 59449-VQRJ SKIN LESIONS, OVER 4 03/11/20 20 35614-NNQU SKIN LESIONS, OVER 4 09/18/20 19 66258-ZEKL SKIN LESIONS, OVER 4 03/09/20 19 06142-FHQG SKIN LESIONS, OVER 4 06/05/20 19 48657-NYOT SKIN LESIONS, OVER 4 11/24/19 19 66528-AOLT SKIN LESIONS, OVER 4 08/25/20 18 23056-JFZM SKIN LESIONS, OVER 4 12/28/19 18 07162-ZASN SKIN LESIONS, OVER 4 06/02/20 18 77289-UXPH SKIN LESIONS, OVER 4 09/27/20 17 95998-CXUW SKIN LESIONS, OVER 4 06/24/20 17 59820-DOPD SKIN LESIONS, OVER 4 12/07/19 17 03508-KQJQ SKIN LESIONS, OVER 4 03/11/20 17 17901-GCKJ SKIN LESIONS, OVER 4 08/27/20 16 11095-ZLVI SKIN LESIONS, OVER 4 06/01/20 16 72954-GKBN SKIN LESIONS, OVER 4 02/24/20 16 32559-CXGT SKIN LESIONS, OVER 4 12/02/19 16 82264-QFKV SKIN LESIONS, OVER 4 09/09/20 15 58858-BGSI SKIN LESIONS, OVER 4 04/05/20 23 38592-XNGI SKIN LESIONS, OVER 4 07/08/20 23 03493-ELGZ SKIN LESIONS, OVER 4 12/29/19 23 84161-HWRP SKIN LESIONS, OVER 4 09/28/20 22 64333-KMJG SKIN LESIONS, OVER 4 06/22/20 22 15749-ZWDM SKIN LESIONS, OVER 4 01/31/20 22 79866-NUIU SKIN LESIONS, OVER 4 09/08/20 21 91678-KABP SKIN LESIONS, OVER 4 06/09/20 21 73327-RIHS SKIN LESIONS, OVER 4 12/02/19 21 90685-HKXB SKIN LESIONS, OVER 4 03/13/20 21 89984-ENOC SKIN LESIONS, OVER 4 08/17/20 24 35751-AAKX SKIN LESIONS, OVER 4 11/23/19 25 92742-WJVV SKIN LESIONS, OVER 4 05/11/20 24 58889-EIJC SKIN LESIONS, OVER 4 01/20/20 24 91889-JMZI SKIN LESIONS, OVER 4 10/21/19 24 87027-EVGW SKIN LESIONS, 2 TO 4 06/02/20 12 79320-KRIO SKIN LESIONS, 2 TO 4 03/03/20 12 66376-DTGP SKIN LESIONS, 2 TO 4 12/03/19 12 16809-KYLP SKIN LESIONS, 2 TO 4 10/01/20 11 Next Appt Details Provider Name:Marychuy Kelley , 03/15/2025 02:30:00 PM, [address] [place], [address], Insurance Providers Payer Name Payer Address Payer Phone Subscriber Number Group Number Insured Name Patient Relationship to Insured Coverage Start Date Coverage End Date [facility] [address] [place] [address] [id number] Casey Ulrich Self - patient is the [...] kidney disease 04/2020 Hospitalization History Reason Date(Month/Year) [facility] [place]- Possible Heart Attack/Stress Anxiet y/Covid 07/31 [facility]- Bladder [facility] Scan [facility] [place]- chest pain 10/31 [facility] [place]- Pressure wound right ankle - saw [facility]- chest pain 10/2015
--- OUTSIDE RECORDS SUMMARY | 2025-02-23 12:31 | XMS_ITS ---
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 [address] [place] [address] 10/03/2024 Ernesto Wu Plan Of Treatment Next Appt Details Provider Name:Ernesto Wu , 04/04/2025 02:20:00 PM, [address], [address], [place], [address], Progress Notes * MELISSA HUNT KDOB:[birth year] (79 yo M)Acc No.[id number]:10/03/2024 Patient:?MELISSA HUNT :1945???Age:79 Y???Sex:Male Address:[address] [place] [address] [place] [address] * true * Date:? Generated for Printi ng/Fadoeg/eTransmitting on:?02/23/2025 12:30 PM EDT
--- NOTE | 2025-02-23 13:06 | AM.OFFWIN_ITS ---
Intake Vital Signs 02/23/25 13:08 Height 5 ft 11 in Weight 197 lb BMI 27.5 BP 100/60 Blood Pressure Location Lt brachial Position Sitting Pulse 73 Pulse Source Pulse Oximeter Temp 97.9 F Temp Source Oral Pulse Oximetry (%) 97 Intake Visit Reasons: EP LT leg pain/weakness Patient Tobacco Use Status: Never used Tobacco Allergies penicillamine Allergy (Unknown, Verified 02/23/25 13:08) unknown Do you need a note to return to daycare/school/sports/work: No HPI HPI Comments History of Present Illness Details This is a 71-year-old male with a past medical history of insulin- dependent diabetes, hyperlipidemia, coronary artery disease, IBS-D and diabetic neuropathy presenting for evaluation of left thigh discomfort that he does not have at this time. Patient states that 3 days ago he woke up with pain and weakness in his left thigh that has recurred in the mornings. Patient states he does have a previously diagnosed bulging disc L4-L5 and suspects this is a pinched nerve . Patient uses a walker at baseline and denies any pain or weakness at this time. 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 Vitamin D deficiency Cholecystectomy planned Osteoarthritis History of colon cancer CKD (chronic kidney disease) Sarcoidosis Partial nontraumatic amputation of right foot PVD (peripheral vascular disease) Diabetic retinopathy Spherocytosis Skin cancer Peripheral neuropathy Spinal stenosis Renal stones Pulmonary sarcoidosis Diabetes Surgical History History of amputation of foot History of ureter repair H/O splenectomy S/P ureteral reimplantation History of surgical removal of pilonidal cyst History of tonsillectomy and adenoidectomy H/O right hemicolectomy Status post laser lithotripsy of ureteral calculus Hx of cholecystectomy Hx of colonoscopy Family History Mother Thyroid cancer Other Mental health disorder Social History Household Members: Friend(s) Housing: House Are you a primary coronary care unit nurse to a significant other at home: No Do you presently have visiting nurse or other home services: No Alcohol intake: never Patient Tobacco Use Status: Never used Tobacco e-Cigarette/Vaping Use: Never Used Second Hand Smoke Exposure: No Advance Directives Date on File: 12/02/23 service: No Current occupational status: employed and retired Cognitive needs: No Hearing needs: No Vision needs: No Review of Systems Const All systems reviewed & are unremarkable except as noted in HPI and below Eyes Reports no additional complaints ENT Reports no additional complaints Card Reports no additional complaints Resp Reports no additional complaints GI Reports no additional complaints Reports no additional complaints Musc Reports no additional complaints, Denies back pain, Denies arthralgias, Denies joint swelling and Reports other (left thigh pain) Skin/Breast Reports system reviewed and no additional complaints, except as documented Neuro Reports no additional complaints Psych Reports no additional complaints Endo Reports no additional complaints Armaan/Lymph Reports no additional complaints Aller/Immun Reports no additional complaints Physical Exam Vital Signs: Last Vital Signs Temp 97.9 F 02/23/25 13:08 Pulse 73 02/23/25 13:08 BP 100/60 02/23/25 13:08 Pulse Ox 97 02/23/25 13:08 BMI result Body Mass Index 27.5 Const General: cooperative, healthy appearing, comfortable, no acute distress, well developed, alert, awake and Physically active Nutritional Appearance: well nourished Orientation/consciousness: patient oriented x3 Limitations: ambulation with walker Back/Spine/Pelvis Back: No mass, No erythema, No warmth, No sacral edema and No back tenderness Thoracic/Lumbar Spine: No pain with thoraco-lumbar ROM, No paraspinal muscle tenderness, No thoracic spinal tenderness and No lumbar spinal tenderness Sacroiliac joints: bilaterally nontender Sacrum: no tenderness Coccyx: no tenderness Skin General skin exam: no rashes or lesions noted Neuro General: patient oriented x3 Extrem Other: No pain to palpation of the left thigh, passive ROM left knee intact, no left calf tenderness, no muscular weakness noted in the left lower extremity. Psych Appearance: grossly normal Mental Status: mental status grossly normal Insight: Good insight present (Psych) Judgement: Good judgement present (Psych) Assessment & Plan Assessment & Plan (1) Left thigh pain: Comment: There is no pain or weakness elicited on examination today. Given this patient's history coupled with his physical examination, no further imaging is warranted at this time. We have discussed the possibility of physical therapy evaluation however he wishes to discuss this with his primary care provider. Code(s): M79.652 - Pain in left thigh Plan: No medications were prescribed as a result of this visit however patient will follow up with his primary care provider if he chooses to pursue physical therapy evaluation. Coding Level of Care Code Est Pt Level 3 (87466) Diagnoses Left thigh pain M79.652 Time Spent (min) 20
[2025-02-23 13:08] VITALS: BP 100/60; PULSE 73; TEMP 36.6; O2SAT 97; BMI 27.5
== END 2025-02-23 14:09 | disposition home or self-care (01) ==
PROVIDERS: PCP Nurse Practitioner Family; Visit Provider Physician Assistant
DX: M79.652 Pain in left thigh (principal)

== ENCOUNTER → 2025-02-23 12:28 | Outpatient (BNVA) | payer BC, SELFPAY | PROVIDERS: PCP Nurse Practitioner Family; Visit Provider Physician Assistant ==

== ENCOUNTER 2025-04-11 15:23 | Outpatient (AMB) | payer BC, SELFPAY ==
[2025-04-11 15:28] VITALS: BP 110/60; PULSE 79; O2SAT 99; BMI 27.1
--- NOTE | 2025-04-11 15:28 | MHC.PC.OV ---
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: No Allergies penicillamine Allergy (Unknown, Verified 04/11/25 16:53) unknown Medication List - Last Reconciled 04/11/25 by JESUS ALBERTO MorelosP- alpha lipoic acid 200 mg PO BID ascorbate calcium (vitamin C) 1.5 grams PO DAILY aspirin (Adult Low Dose Aspirin) 81 mg PO DAILY berberine-herbal comb no.18 500 caps PO BID blood sugar diagnostic (Contour Test Strips) 5 times a day blood-glucose sensor (wutaboutStyle Nilsa 3 Sensor device) Test blood sugar 4 times per day cholecalciferol (vitamin D3) 1,200 units PO DAILY dorzolamide 2% 2 drps ophthalmic (eye) DAILY ginkgo biloba 40 mg PO DAILY insulin NPH isoph U-100 human (Humulin N NPH U-100 Insulin (isophane susp)) 30 units subcut BID insulin syringe-needle U-100 (BD Insulin Syringe Ultra-Fine) Use to inject insulin twice per day latanoprost 0.005% 1 drp ophthalmic (eye) QPM leg brace (Ankle Brace) LEFT AFO custom molded for foot drop Custom shoes, diabetic foot [resvertrol ] turmeric (bulk) 95% (Curcumin) 95 ea miscellaneous DAILY vitamin A 2,400 mcg PO DAILY vitamin B complex 1 cap PO DAILY zinc 50 mg PO DAILY Tobacco use date assessed: 12/28/24 Fall risk assessment: No Falls in past year Last assessed Fall Risk: 04/11/25 Dental Screening Dental Screen Date: 12/28/24 HPI 3 months f/up HPI Details Chief Complaint The patient presents with persistent fatigue since a COVID-19 infection in August. History of Present Illness The patient is a 79-year-old male presenting with persistent fatigue. The fatigue has persisted since a COVID-19 infection in August, which was his second bout with the virus. He denies excessive dyspnea or chest pain. Environmental factors such as heat and ozone exacerbate his symptoms. He is knowledgeable about spike proteins and engages in research on the topic. The patient uses a walker for mobility and declined a foot examination during this visit. He is under the care of a mission worker-oncologist. The patient acknowledges a sedentary lifestyle, contributing to his fatigue. He is not working as much, which further promotes inactivity. He has been advised to maintain a consistent sleep schedule and incorporate daily movement into his routine. echo previously was benign. Social History - The patient reports a sedentary lifestyle, contributing to his fatigue. - He is not working as much, which further promotes inactivity. Health Maintenance - Encouraged to maintain a consistent sleep schedule and incorporate daily movement. Review of Systems - General: Reports persistent fatigue since August. - Cardiovascular: Denies chest pain. - Respiratory: Denies excessive dyspnea. Physical Exam General: Cooperative, healthy appearing, comfortable, no acute distress and well developed Orientation: Patient oriented x3 Limitations: Walks with a walker Head: Normal to inspection Ears: Hearing grossly normal bilaterally Nose: Normal external nose present Face and sinus: Normal facial exam Eyes: Appearance normal, both eyes and all related structures Neck: Normal visual inspection and Yes full ROM Respiratory: Normal respiratory effort and able to speak in complete sentences. Clear to auscultation bilaterally Cardiovascular: Regular rate and rhythm. Normal S1 and S2 GI: Normal to inspection. Soft to palpation and nontender Neuro: Patient oriented x3 Extremities: Normal to inspection Results Plan The patient is advised to maintain a consistent sleep schedule and incorporate daily movement to address fatigue and sedentary lifestyle. He should avoid excessive heat and ozone exposure, which exacerbate his symptoms. Follow-up with his mission worker-oncologist and laboratory tests are recommended in the near future. Discussion Notes During the visit, I discussed with the patient the importance of maintaining a consistent sleep schedule and incorporating daily movement to manage his fatigue and sedentary lifestyle. We also talked about avoiding excessive heat and ozone exposure, which he finds exacerbates his symptoms. I encouraged him to follow up with his mission worker-oncologist and to have laboratory tests conducted soon (for both myself and hematology/oncology). Patient Instructions - Keep a regular sleep schedule and include daily exercise. - Avoid exposure to heat and ozone. - Follow up with your mission worker-oncologist and get lab tests done soon. 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 Vitamin D deficiency Cholecystectomy planned Osteoarthritis History of colon cancer CKD (chronic kidney disease) Sarcoidosis Partial nontraumatic amputation of right foot PVD (peripheral vascular disease) Diabetic retinopathy Spherocytosis Skin cancer Peripheral neuropathy Spinal stenosis Renal stones Pulmonary sarcoidosis Diabetes Surgical History History of amputation of foot History of ureter repair H/O splenectomy S/P ureteral reimplantation History of surgical removal of pilonidal cyst History of tonsillectomy and adenoidectomy H/O right hemicolectomy Status post laser lithotripsy of ureteral calculus Hx of cholecystectomy Hx of colonoscopy Family History Mother Thyroid cancer Other Mental health disorder Social History Household Members: Friend(s) Housing: House Are you a primary direct care specialist to a significant other at home: No Do you presently have visiting nurse or other home services: No Alcohol intake: never Patient Tobacco Use Status: Never used Tobacco e-Cigarette/Vaping Use: Never Used Second Hand Smoke Exposure: No Advance Directives Date on File: 12/02/23 service: No Current occupational status: employed and retired Cognitive needs: No Hearing needs: No Vision needs: No Questionnaire Thrive Questionnaire Date Thrive assessed: 04/11/25 I am a: Patient What is your living situation today?: I have a steady place to live Within the past 12 months, did the food you bought not last and you didn't have the money to get more?: Never true Within the past 12 months, did you worry whether your food would run out before you got money to buy more?: Never true Do you have trouble paying for medicines?: No Do you have trouble getting transportation to medical appointments?: No Do you have trouble paying your heating and electricity bill?: No Do you have trouble taking care of your child, family member or friend?: No Do you have trouble with day-to-day activities such as bathing, preparing meals, shopping, managing finances, etc.?: No Are you currently unemployed and looking for a job?: No Are you interested in more education?: No THRIVE Score: 0 CANDIS-7 AMB Questionnaire CANDIS-7 Date CANDIS - 7 assessed: 12/28/24 Source: Developed by Drs. Ernesto Moscoso, Jodi Alvarado, Sam Deluna and colleagues, with an educational devon from [employer]. Physical exam (Primary Care) Vital Signs: Last Vital Signs Pulse 79 04/11/25 15:28 BP 110/60 04/11/25 15:28 Pulse Ox 99 04/11/25 15:28 Oxygen Delivery Method Room Air 04/11/25 15:28 BMI result Body Mass Index 27.1 Tobacco/Smoking Status: Tobacco use Status Tobacco use date assessed 12/28/24 04/11/25 15:30 Patient Tobacco Use Status Never used Tobacco 04/11/25 15:30 e-Cigarette/Vaping Use Never Used 04/11/25 15:30 Thrive Assessment: Date of Thrive Assessment Date Thrive assessed 04/11/25 04/11/25 15:30 Coding Level of Care Code Est Pt Level 3 (83811) Diagnoses Fatigue R53.83 Weakness R53.1 Post-COVID syndrome U09.9 Assessment & Plan Assessment & Plan (1) Fatigue: Code(s): R53.83 - Other fatigue Category: Medical (2) Weakness: Code(s): R53.1 - Weakness Category: Medical (3) Post-COVID syndrome: Code(s): U09.9 - Post COVID-19 condition, unspecified Category: Medical Plan . Orders: Orders Lyme IgG/IgM w/reflex to WB Today R53.1 - Weakness, R53.83 - Other fatigue Tick-borne Disease Molecular Today R53.1 - Weakness, R53.83 - Other fatigue
--- OUTSIDE RECORDS SUMMARY | 2025-04-11 15:38 | XMS_ITS | Patient Health Record ---
Author Organization [facility] Address [address] [place] [address] Care Team Providers Care Power Press Tender Name Role Phone MARC HERNANDEZ Primary Care Provider Ernesto Beck [phone] Allergies No Known Allergies Reason For Referral No Information Medications Medication SIG (Take, Route, Frequency, Duration) Notes Start Date End Date Status Alpha Lipoic Acid 200 MG 1 capsule Orall y Once a day for 30 day(s) 04/04/2025 Active BD Insulin Syringe U/F 30G X 1/2 1 ML USE TO INJECT INSULIN TWICE PER DAY for 90 Active Acetyl L-Carnitine 04/04/2025 Active CoQ-10 100 MG as directed Orally 04/04/2025 Active Vitamin D 1000 UNIT 1 tablet Orally Once a day for 30 day(s) Active Ketoconazole 2 % 1 application Purchasing Administrative Assistant ally Once a day for 14 day(s) 04/04/2025 Active Bromaline 04/04/2025 Active Zinc 50 MG 1 capsule Orally Onc e a day for 30 day(s) Active Vitamin A 2400 MCG (8000 UT) 2 capsules with food or milk Orally Once a day for 30 day(s) 04/04/2025 Active Curcumin 95 500 MG as directed Orally 04/04/2025 Active Vitamin C 500 MG as directed Orally 04/04/2025 Active Vitamin E 100 UNIT 1 tablet Orally Once a day for 30 day(s) 04/04/2025 Active Timolol Maleate 0.5 % PLACE ONE DROP INT O BOTH EYES TWICE A DAY Ophthalmic for 56 Active Ginkoba 40 MG as directed Orally 04/04/2025 Active Latanoprost 0.005 % APPLY ONE DROP TO EA CH EYES IN THE EVENING Ophthalmic for 90 Active Berberine Chloride 500 MG as directed Orally 04/04/2025 Active HumuLIN N 100 UNIT/ML 15-20 units as dir ected Subcutaneous BID Active Aspirin 81 81 MG 1 tablet Orally Once a day for 30 day(s) 04/04/2025 Active Vitamin B Complex - as directed Orally o nce a day Active Ibuprofen PRN Not-Taking Zinc 100 MG 1 tablet Orally Once a day for 30 day(s) 04/04/2025 Active Immunizations Vaccine Route Administration Date Status [...] Problem Status W/U Status Risk Notes Problem 607396857 Encounter for screening for malignant neoplasm of colon (Z12.11) Active confirmed Problem 115160921 History of adenomatous polyp of colon (Z86.010) Active confirmed Problem 933699945 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 Problem 655576381317204 Preprocedural examination (Z01.818) Active confirmed Problem 635201327 History of colon cancer (Z85.038) Active confirmed Problem 52220994 Constipation, unspecified constipation type (K59.00) Active confirmed Problem Diverticulosis of colon (492855018) Diverticulosis of colon (K57.30) Active confirmed Problem 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) Active confirmed Vital Signs Temperature 97.9 degrees Fahrenheit 04/04/2025 Blood pressure diastolic 01 mm Hg 04/04/2025 Height 71.5 in 04/04/2025 Blood pressure systolic 001 mm Hg 04/04/2025 Weight 196 lbs 04/04/2025 BMI 26.95 kg/m2 04/04/2025 Procedures Procedure Date Ordered Date Performed Result Body Sit e COLONOSCOPY 04/04/2025 N/A Encounters Encounter Location Date Provider Diagnosis [facility] [address] [place] [address] 04/04/2025 Ernesto Wu History of adenomato us polyp of colon Z86.010 ; Encounter for screening for malignant neoplasm of colon Z12.11 ; History of colon cancer Z85.038 and Preprocedural examination Z01.818 [facility] [address] [place] [address] 09/12/2024 Ernesto Wu [facility] [address] [place] [address] 10/03/2024 Ernesto Wu [facility] [address] [place] [phone] 01/30/2025 Ernesto Wu [facility] [address] [place] [address] 04/05/2025 Ernesto Wu Assessments Encounter Date Diagnosis (ICD Code) Assessment Notes Treatment Notes Treatment Clinical Notes Section Notes 04/04/2025 History of adenomatous polyp of colon (ICD-10 - Z86.010) Overall, Jordin appears well from a GI standpoint. He is not having any new or worrisome GI complaints. His flaxseed is keeping his bowel movements regular and minimizing any symptoms from his underlying irritable bowel syndrome. I did recommend a follow-up colonoscopy for later this year as it has been more than 3 years since his last exam and he does have the previous history of colon cancer and colon polyps. Full consent has been obtained from him for this, including risks of bleeding and perforation. The procedure will be done with monitored anesthesia care. He was given the below instructions regarding adjustment of his medications for the procedure. He will have a 2-day prep as he has in the past to be sure we have a good cleanout for the procedure. He will be seen by his laboratory geneticist prior to the procedure and I did advise him to let me know if anything changes in that regard such as having to undergo a cardiac catheterization or being started on any new medication, particularly any blood thinners. Jordin was comfortable with this plan. Thank you again for allowing me to participate in Jordin's care. I shall continue to keep you advised of his progress. 04/04/2025 Encounter for screening for malignant neoplasm of colon (ICD-10 - Z12.11) Overall, Jordin appears well from a GI standpoint. He is not having any new or worrisome GI complaints. His flaxseed is keeping his bowel movements regular and minimizing any symptoms from his underlying irritable bowel syndrome. I did recommend a follow-up colonoscopy for later this year as it has been more than 3 years since his last exam and he does have the previous history of colon cancer and colon polyps. Full consent has been obtained from him for this, including risks of bleeding and perforation. The procedure will be done with monitored anesthesia care. He was given the below instructions regarding adjustment of his medications for the procedure. He will have a 2-day prep as he has in the past to be sure we have a good cleanout for the procedure. He will be seen by his laboratory geneticist prior to the procedure and I did advise him to let me know if anything changes in that regard such as having to undergo a cardiac catheterization or being started on any new medication, particularly any blood thinners. Jordin was comfortable with this plan. Thank you again for allowing me to participate in Jordin's care. I shall continue to keep you advised of his progress. 04/04/2025 History of colon cancer (ICD-10 - Z85.038) Overall, Jordin appears well from a GI standpoint. He is not having any new or worrisome GI complaints. His flaxseed is keeping his bowel movements regular and minimizing any symptoms from his underlying irritable bowel syndrome. I did recommend a follow-up colonoscopy for later this year as it has been more than 3 years since his last exam and he does have the previous history of colon cancer and colon polyps. Full consent has been obtained from him for this, including risks of bleeding and perforation. The procedure will be done with monitored anesthesia care. He was given the below instructions regarding adjustment of his medications for the procedure. He will have a 2-day prep as he has in the past to be sure we have a good cleanout for the procedure. He will be seen by his laboratory geneticist prior to the procedure and I did advise him to let me know if anything changes in that regard such as having to undergo a cardiac catheterization or being started on any new medication, particularly any blood thinners. Jordin was comfortable with this plan. Thank you again for allowing me to participate in Jordin's care. I shall continue to keep you advised of his progress. 04/04/2025 Preprocedural examination (ICD-10 - Z01.818) Overall, Jordin appears well from a GI standpoint. He is not having any new or worrisome GI complaints. His flaxseed is keeping his bowel movements regular and minimizing any symptoms from his underlying irritable bowel syndrome. I did recommend a follow-up colonoscopy for later this year as it has been more than 3 years since his last exam and he does have the previous history of colon cancer and colon polyps. Full consent has been obtained from him for this, including risks of bleeding and perforation. The procedure will be done with monitored anesthesia care. He was given the below instructions regarding adjustment of his medications for the procedure. He will have a 2-day prep as he has in the past to be sure we have a good cleanout for the procedure. He will be seen by his laboratory geneticist prior to the procedure and I did advise him to let me know if anything changes in that regard such as having to undergo a cardiac catheterization or being started on any new medication, particularly any blood thinners. Jordin was comfortable with this plan. Thank you again for allowing me to participate in Jordin's care. I shall continue to keep you advised of his progress. Plan Of Treatment Pending Test Test Name Order Date COLONOSCOPY 04/04/2025 Future Test Test Name Order Date COLONOSCOPY 02/23/2019 COLONOSCOPY 07/03/2020 COLONOSCOPY 01/29/2022 COLONOSCOPY 03/08/2024 Next Appt Details Provider Name:Ernesto Wu , 10/01/2025 07:30:00 AM, [address] [place] [address] , [place], [place], [phone], Insurance Providers Payer Name Payer Address Payer Phone Subscriber Number Group Number Insured Name Patient Relationship to Insured Coverage Start Date Coverage End Date [facility] [address] [place], [place] [id number] MELISSA ELDER Self - patient is the insured Medical (General) History Medical History History ICD Code Denies RI,CVA,Lung disease,renal disease IDDM Pulmonary sarcoidosis- inactive Spherocytosis Colonoscopy in 2009- 1 tubular adenoma r emoved, diverticulosis Spinal stenosis Peripheral neuropathy Kidney stones - 4 removed Colon cancer of transverse c olon found in 07/2019 screening colonoscopy- surgery as below- all nodes and margins were neg- saw Dr. Crow and did not receive any chemotherapy Negative colonoscopy in 08/2020, althoug h limited prep in the left colon IBS Glacoma open angle Diabetic neuropathy Colonoscopy in 02/2022 revealed small sarah beth yps-3 tubular adenomas long covid number 2 Surgical History Surgery Date(Month/Year) Right ureteral surgery for stones with Jazlyn Liriano at [facility] Right colectomy 09/[address] 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
--- OUTSIDE RECORDS SUMMARY | 2025-04-11 15:38 | XMS_ITS | Clinical Summary ---
Author Organization [facility] Address [address] [place] [address] Phone Care Team Providers Care Air Tube Releaser Name Role Phone Stuart Will OPERATIONS INTELLIGENCE SUPERINTENDENT Primary Care Provider [phone] Encounters Date Type Department Care Team Description 01/25/[address] [facility] [address] [place] [address] Stuart Will NP 01/25/2025 Telephone [facility] - [facility] [address] [facility] [address] [place] [address] Stuart Will NP Referral (Received routine paper referral - January) 01/18/[address] [facility] [address] [place] [address] Physician, Pcp Unknown from Last [...] Description 05/28/2025 3:00 PM EDT Office Visit [facility] [address] [place] [address] Stuart Hernandez MD [address] [place] [address] [address]IVE,[facility] [address] [place] [address] Health Maintenance Due Date Last Done Comments [...] age to complete this topic Insurance MEDICARE [facility] Care Teams Air Tube Releaser Relationship Specialty Start Date End Date Stuart Will NP PCP - General Family Medicine 01/25/25
--- OUTSIDE RECORDS SUMMARY | 2025-04-11 15:39 | XMS_ITS | Clinical Summary ---
Author Organization [facility], Address [address] [place] [address] [place] [address] Phone Care Team Providers Care Epic Cupid Analyst Name Role Phone Stuart Will NP Primary Care Provider [phone] Allergies Active Allergy Reactions Criticality Noted Date [...] patient's age to complete this topic [place] [place] [address] Care Teams Epic Cupid Analyst Relationship Specialty Start Date End Date Stuart Will [place] [address] PCP - General Nurse Practitioner 12/06/20
--- OUTSIDE RECORDS SUMMARY | 2025-04-11 15:39 | XMS_ITS | Patient Health Record ---
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 Name Role Phone Stuart Lozano Primary Care Provider Unav ailable Black, Marychuy Unavailable [phone] Allergies Allergen (clinical drug ingredient) Drug/Non Drug Allergy documented on EMR Reaction Allergy Type Onset Date Status 12 Hour Nasal [place] Unknown Drug Allergy Active Dust Mites Unknown [...] Duration) Notes Start Date End Date Status Magnesium Not-Taking Flax Seeds - as directed Orally Not-Taking Timolol Maleate PF N ot-Taking Lovastatin Not-Takin g Ammonium Lactate 12 % 1 application Exte rnally to affected areas of dry skin to feet except for between the toes Twice a day; Duration: 30 days Active Aspirin 81 MG 1 tablet Orally Once a day; Duration: 30 day(s) Active Resveratrol Active Flax Seed Oil Active Z49-Cpxhve Active Vitamin D3 Active Vitamin A Active Extra Depth Orthopedic Shoes (1 Pair) with Customized Heat Molded Multidensity Innersoles (3 Pair) as directed Dx: IDDM/Polyneuropathy (E10.42), Hammertoe Foot Deformity (M20.41,M20.42), Preulcerative Skin Lesion(s) (L85.1) 06/02/2018 Not-Taking Multivitamins Not-Jacek hensley [place] 3-6-9 Not-Taki ng Nattokinase 100 MG as directed Orally Not-Taking Vitamin D Active HumuLIN N Active Aspirin 81 81 MG 1 tablet Orally Once a day Not-Taking Vitamin B Complex - as directed Orally Active Berberine HCI 500 MG as directed Orally Active Atenolol Not-Taking Prevnar 13 Not-Takin g Venlafaxine HCl Not- Taking Ascorbic Acid Not-Jacek hensley Vitamin C & E Complex Not-Taking Turmeric Active AFO-Hinged as directed Wear Juli ly; Duration: as needed 09/08/2021 Active Zinc Active Metaform Not-Taking Vitamin C 500 MG as directed Orally O nce a day Active Keflex Not-Taking Vitamin E Not-Taking HumaLOG Not-Taking Immunizations Vaccine Route Administration Date Status Comme nts Influenza Unknown 03/11/2017 Refused Patient refuse s Influenza Unknown 04/02/2025 Refused Pneumococcal Unknown 12/27/2017 Administered Social History Tobacco [...] Problem Status W/U Status Risk Notes Problem Polyneuropathy due to diabetes mellitus type I (198643509) 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 Problem Neuropathic ulcer of right foot (disorder) ([id number] 02) Neuropathic ulcer of right foot, limited to breakdown of skin (L97.511) Active confirmed Response to treatment - Improvement Vital Signs Blood pressure diastolic 65 mm Hg 04/02/2025 Height 5ft 11in in 04/02/2025 Blood pressure systolic 110 mm Hg 04/02/2025 Weight 195 lbs 04/02/2025 BMI 27.19 kg/m2 04/02/2025 Procedures Procedure Date Ordered Date Performed Result Body Sit e 07113-OURMTZQ NAIL, 6 OR MORE 05/11/2024 N/A 96451-BIXE SKIN LESIONS, OVER 4 05/11/2024 N/A 87970-QQFFUYY NAIL, 1-5 08/17/2024 N/A 48147-Scijluwp Plate 08/17/2024 N/A 48284-Udrdteff Plate Each Additional 08/17/2024 N/A 41783-PMNI SKIN LESIONS, OVER 4 08/17/2024 N/A 11209-FDETGUB NAIL, 6 OR MORE 11/23/2024 N/A 56242-HTKJ SKIN LESIONS, OVER 4 11/23/2024 N/A 01452-AMJRFQD NAIL, 6 OR MORE 03/15/2025 N/A 63427- Debride <25 sq cm 03/15/2025 N/A 60421-JHMS SKIN LESIONS, OVER 4 03/15/2025 N/A 35944- Debride <25 sq cm 04/02/2025 N/A Encounters Encounter Location Date [facility] [address] 05/11/2024 Marychuy Black Type 1 diabetes mellitus with diabetic polyneuropathy E10.42 and Tinea unguium B35.1 [facility] [address] 08/17/2024 Marychuy Black Type 1 diabetes mellitus with diabetic polyneuropathy E10.42 ; Tinea unguium B35.1 ; Ingrown nail L60.0 and Skin ulcer of toe of left foot, limited to breakdown of skin L97.[address] [address] 11/23/2024 Marychuy Black Type 1 diabetes mellitus with diabetic polyneuropathy E10.42 ; Xerosis of skin L85.3 and Tinea unguium B35.[address] [address] 03/15/2025 Marychuy Black Type 1 diabetes mellitus with diabetic polyneuropathy E10.42 ; Xerosis of skin L85.3 ; Tinea unguium B35.1 and Skin ulcer of toe of right foot, limited to breakdown of skin L97.[address] [address] 04/02/2025 Marychuy Black Neuropathic ulcer of right foot, limited to breakdown of skin L97.511 and Type 1 diabetes mellitus with diabetic polyneuropathy E10.[address] [address] 04/18/2024 Marychuymerline Kelley [address] [address] 08/22/[address] [address] 11/23/2024 Marychuy Black Assessments Encounter Date Diagnosis [...] 11/23/2024 Xerosis of skin (ICD-10 - L85.3) 03/15/2025 Type 1 diabetes mellitus with diabetic polyneuropathy (ICD-10 - E10.42) 03/15/2025 Xerosis of skin (ICD-10 - L85.3) 04/02/2025 Neuropathic ulcer of right foot, limited to breakdown of skin (ICD-10 - L97.511) Response to treatment - Improvement Patient Educated with: WOUND CARE INSTRUCTIONS. pdf (WOUND CARE INSTRUCTIONS. pdf) 11/23/2024 Tinea unguium (ICD-10 - B35.1) 04/02/2025 Type 1 diabetes mellitus with diabetic polyneuropathy (ICD-10 - E10.42) 03/15/2025 Tinea unguium (ICD-10 - B35.1) 08/17/2024 Ingrown nail (ICD-10 - L60.0) 08/17/2024 Skin ulcer of toe of left foot, limited to breakdown of skin (ICD-10 - L97.521) 03/15/2025 Skin ulcer of toe of right foot, limited to breakdown of skin (ICD-10 - L97.511) Plan Of Treatment Pending Test Test Name Order Date Hemoglobin A1c 12/02/2015 28689-YPWVPDA NAIL, 6 OR MORE 07/08/2023 59658-UFOZCZM NAIL, 6 OR MORE 10/21/2023 31136-HZUJLJN NAIL, 6 OR MORE 05/11/2024 58495-NGCSLRQ NAIL, 6 OR MORE 11/23/2024 27236-YFQKASY NAIL, 6 OR MORE 03/15/2025 49947-CBBZWDS NAIL, 6 OR MORE 12/02/2020 60889-RWNEGAQ NAIL, 6 OR MORE 03/13/2021 16402-ZYHNELG NAIL, 6 OR MORE 06/09/2021 94725-YPLLOBM NAIL, 6 OR MORE 09/08/2021 92416-CQYIVHE NAIL, 6 OR MORE 01/30/2022 91705-YYRJNRK NAIL, 6 OR MORE 06/22/2022 33453-AURDINN NAIL, 6 OR MORE 09/28/2022 79519-UOEOQVR NAIL, 6 OR MORE 12/28/2022 15441-TADANXH NAIL, 6 OR MORE 04/05/2023 84602-NFKDKJO NAIL, 6 OR MORE 10/01/2011 47726-QGJQIQT NAIL, 6 OR MORE 12/03/2011 29454-DBCZRGD NAIL, 6 OR MORE 03/03/2012 77135-PFXWUZG NAIL, 6 OR MORE 06/02/2012 59289-NLXWUQR NAIL, 6 OR MORE 11/03/2012 09701-ZZIQNYO NAIL, 6 OR MORE 01/23/2013 81614-DYRRIPY NAIL, 6 OR MORE 04/03/2013 80574-IVVDSKA NAIL, 6 OR MORE 06/28/2013 22089-UFQFNLP NAIL, 6 OR MORE 09/13/2013 53495-UCCSOWL NAIL, 6 OR MORE 12/13/2013 34898-GBPRRHC NAIL, 6 OR MORE 03/22/2014 75669-IMTMWRI NAIL, 6 OR MORE 06/21/2014 97067-ZTCANSP NAIL, 6 OR MORE 09/20/2014 81392-UUFMAAS NAIL, 6 OR MORE 12/06/2014 37193-WTJJTJA NAIL, 6 OR MORE 02/21/2015 65854-XNGULYX NAIL, 6 OR MORE 05/13/2015 23211-ZVXSZUO NAIL, 6 OR MORE 09/09/2015 45921-ZAHXKRA NAIL, 6 OR MORE 12/02/2015 08489-KFWPWGH NAIL, 6 OR MORE 02/24/2016 83649-PJREIVJ NAIL, 6 OR MORE 06/01/2016 81763-QURHEQS NAIL, 6 OR MORE 08/27/2016 31009-ADXYRUJ NAIL, 6 OR MORE 12/07/2016 08151-DLFTJFJ NAIL, 6 OR MORE 03/11/2017 23956-YOCROJM NAIL, 6 OR MORE 06/24/2017 68727-ROBJVUF NAIL, 6 OR MORE 09/27/2017 68935-KLYRXKM NAIL, 6 OR MORE 12/27/2017 92686-SIRAJZW NAIL, 6 OR MORE 06/02/2018 91968-KQOBCXI NAIL, 6 OR MORE 08/25/2018 25378-MPWTSLK NAIL, 6 OR MORE 11/24/2018 67325-RBFJCZJ NAIL, 6 OR MORE 03/09/2019 12139-GLBAEZT NAIL, 6 OR MORE 06/05/2019 56166-IVKQEFB NAIL, 6 OR MORE 09/18/2019 62179-MHOUNJO NAIL, 6 OR MORE 03/11/2020 17858-SUMRYCY NAIL, 6 OR MORE 06/13/2020 69836-FXWIHGC NAIL, 6 OR MORE 09/23/2020 63991-KWOHQWU NAIL, 1-5 08/17/2024 91616-APCXZUP NAIL, 1-5 01/20/2024 56778-Caoe Destruction, 10-2409/08/2021 32166-Kmxe Destruction, 10-2406/09/2021 63401-Byip Destruction, 10-2403/11/2020 64265-Atwf Destruction, 10-2406/05/2019 83244-Mzqr Destruction, 10-2409/18/2019 80747-Zzmp Destruction, 10-2403/09/2019 64208-Tefd Destruction, 10-2405/13/2015 85749-Niyp Destruction, 10-2402/21/2015 59923-Ceuc Destruction, 10-2412/06/2014 30186-Tipm Destruction, 10-2409/20/2014 24551-Qfwg Destruction, 10-2406/21/2014 46129-Vgxg Destruction, 10-2403/22/2014 75868-Mveu Destruction, 10-2412/13/2013 26510-Wkzs Destruction, 10-2409/13/2013 34522-Trjm Destruction, 10-2406/28/2013 12504-Eytm Destruction, 10-2404/03/2013 51007-Lpnt Destruction, 10-2401/23/2013 62451-Tacv Destruction, 10-2411/03/2012 53952-Yafs Destruction, 10-2406/02/2012 98866-Dycz Destruction, 10-2410/01/2011 70413-Mvug Destruction, 10-2403/03/2012 11885-Wokx Destruction, 10-2412/03/2011 62499-Bisgdcat Plate 03/03/2012 26287-Uuulmopi Plate 12/03/2011 96290-Qfmafnqn Plate 06/02/2012 83384-Yhpvhfhb Plate 01/23/2013 69024-Tzutwxyq Plate 04/03/2013 60990-Bsqdyhsf Plate 06/28/2013 81617-Nlnijbij Plate 09/13/2013 21631-Aaundkbx Plate 12/13/2013 75013-Wtjfdqzm Plate 03/22/2014 14099-Wziiyfhi Plate 06/21/2014 54522-Kezdykfp Plate 09/20/2014 20095-Rzolaivz Plate 12/06/2014 78202-Nzejdiqv Plate 02/21/2015 97425-Kwvtiats Plate 05/13/2015 62419-Yywjsohd Plate 12/27/2017 40794-Szcgytmk Plate 06/05/2019 08606-Mrjovqad Plate 11/24/2018 10661-Ydvrzcig Plate 03/09/2019 88751-Kiorsobd Plate 08/25/2018 51373-Drxordfb Plate 09/18/2019 11942-Rmihzxxh Plate 03/11/2020 87085-Bmcriftb Plate 09/27/2017 35963-Nyovkync Plate 12/07/2016 07629-Kzarzutm Plate 08/27/2016 64935-Jmfpgezz Plate 06/01/2016 65495-Yemxtqyz Plate 02/24/2016 52064-Dqgtppzs Plate 12/02/2015 86348-Edufvgow Plate 11/03/2012 33498-Snatgejy Plate 09/09/2015 44822-Dfygcfmm Plate 06/09/2021 78095-Pblkmfka Plate 06/13/2020 92335-Olnoxnnf Plate 09/08/2021 46238-Jnhqhsaj Plate 03/13/2021 64858-Rqpdrcyr Plate 09/23/2020 34388-Kxcdrpal Plate 01/30/2022 42568-Hcdknzei Plate 06/22/2022 36058-Ehhsqceo Plate 01/20/2024 88709-Chvedkvp Plate 08/17/2024 66279-Sjtpbliu Plate Each Additional 09/2022 07735-Oezypkhg Plate Each Additional 04/2024 22970-Qnfrpmmr Plate Each Additional 67525-Ifklhino Plate Each Additional 39217-Agtwucuy Plate Each Additional 12/2020 04498-Krhbnffn Plate Each Additional 55072-Hsndycjb Plate Each Additional 36661-Nmoygdqy Plate Each Additional 59126-Mypsnwts Plate Each Additional 14089-Whsaymqj Plate Each Additional 42664-Kicasgaw Plate Each Additional 68776-Qslocjqy Plate Each Additional 44771-Olwbwcvu Plate Each Additional 05599-Sdxjhxft Plate Each Additional 49779-Rmpuqlzp Plate Each Additional 06/2019 40410-Gsvuguav Plate Each Additional 10/2019 63097-Jkbjpwng Plate Each Additional 60760-Nytqmyqa Plate Each Additional 51164-Ivmgesrm Plate Each Additional 84824-Qlfdfqfg Plate Each Additional 12/2014 59987-Doqmjwvm Plate Each Additional 70945-Iyaipkdo Plate Each Additional 99174-Usafsfoa Plate Each Additional 08/2014 92998-Tkuatrvb Plate Each Additional 08/2014 82847-Qwzleuph Plate Each Additional 09/2014 71954-Waxqwbxn Plate Each Additional 02/2014 69570-Uqtutuga Plate Each Additional 01/2013 13754-Kgobzgcy Plate Each Additional 78419-Vjolubpu Plate Each Additional 08609-Kodyjcvt Plate Each Additional 99545-Bmcxfvrt Plate Each Additional 22307-Yycqaikw Plate Each Additional 95774- Debride <25 sq cm 06/13/2020 33387- Debride <25 sq cm 04/05/2023 25085- Debride <25 sq cm 03/15/2025 92914- Debride <25 sq cm 04/02/2025 18095 I&D ABSCESS- SIMPLE,SINGLE 013 12856 I&D ABSCESS- SIMPLE,SINGLE 013 61165-YOWQ SKIN LESIONS, OVER 4 01/24/20 13 39725-JYGB SKIN LESIONS, OVER 4 11/03/19 13 40541-NMZD SKIN LESIONS, OVER 4 04/03/20 13 84778-RTQD SKIN LESIONS, OVER 4 06/28/20 13 45611-PMOC SKIN LESIONS, OVER 4 09/13/20 13 29321-PMIO SKIN LESIONS, OVER 4 12/14/19 14 37775-SXAL SKIN LESIONS, OVER 4 03/22/20 14 09351-GLMI SKIN LESIONS, OVER 4 06/21/20 14 23976-YCME SKIN LESIONS, OVER 4 09/20/20 14 28021-UDSK SKIN LESIONS, OVER 4 12/06/19 15 76955-SZQV SKIN LESIONS, OVER 4 02/22/20 15 24617-SYFT SKIN LESIONS, OVER 4 05/13/20 15 44506-VXNJ SKIN LESIONS, OVER 4 06/13/20 20 66875-ESCQ SKIN LESIONS, OVER 4 09/23/20 20 27386-ICDZ SKIN LESIONS, OVER 4 03/11/20 20 76852-HYBP SKIN LESIONS, OVER 4 09/18/20 19 28199-LZMH SKIN LESIONS, OVER 4 03/09/20 19 49532-LBQH SKIN LESIONS, OVER 4 06/05/20 19 80864-VPIP SKIN LESIONS, OVER 4 11/24/19 19 63548-TGHD SKIN LESIONS, OVER 4 08/25/20 18 94634-BJMI SKIN LESIONS, OVER 4 12/28/19 18 64871-QGLZ SKIN LESIONS, OVER 4 06/02/20 18 41857-PAVZ SKIN LESIONS, OVER 4 09/27/20 17 40554-ESWY SKIN LESIONS, OVER 4 06/24/20 17 18194-EATL SKIN LESIONS, OVER 4 12/07/19 17 78931-FVDZ SKIN LESIONS, OVER 4 03/11/20 17 02407-CADG SKIN LESIONS, OVER 4 08/27/20 16 96616-EYZT SKIN LESIONS, OVER 4 06/01/20 16 72922-WCXO SKIN LESIONS, OVER 4 02/24/20 16 70009-YEWH SKIN LESIONS, OVER 4 12/02/19 16 73305-BHWI SKIN LESIONS, OVER 4 09/09/20 15 91301-OMLK SKIN LESIONS, OVER 4 03/15/20 25 88723-MDLQ SKIN LESIONS, OVER 4 08/17/20 24 35756-XNQE SKIN LESIONS, OVER 4 11/23/19 25 02133-LXKC SKIN LESIONS, OVER 4 05/11/20 24 46785-LOND SKIN LESIONS, OVER 4 01/20/20 24 54874-MJFE SKIN LESIONS, OVER 4 10/21/19 24 46131-BEIZ SKIN LESIONS, OVER 4 04/05/20 23 18003-AZAP SKIN LESIONS, OVER 4 07/08/20 23 21086-EBWR SKIN LESIONS, OVER 4 12/29/19 23 08431-GKTI SKIN LESIONS, OVER 4 09/28/20 85606-KHFU SKIN LESIONS, OVER 4 06/22/20 84288-NEFN SKIN LESIONS, OVER 4 01/31/20 72088-AZWT SKIN LESIONS, OVER 4 09/08/20 21 01022-AOTK SKIN LESIONS, OVER 4 06/09/20 21 26387-QHIT SKIN LESIONS, OVER 4 12/02/19 21 24657-INQT SKIN LESIONS, OVER 4 03/13/20 21 15749-UNJH SKIN LESIONS, 2 TO 4 08/23/20 12 98968-MJZJ SKIN LESIONS, 2 TO 4 03/03/20 12 28933-OOSI SKIN LESIONS, 2 TO 4 12/03/19 12 02076-JQNR SKIN LESIONS, 2 TO 4 10/01/20 11 Next Appt Details Provider Name:Marychuy Kelley , 04/30/2025 03:00:00 PM, [address] [place] [address], [phone], Provider Name:Marychuy Kelley , 06/28/2025 02:30:00 PM, [address] [place] [address], [phone], Insurance Providers Payer Name Payer Address Payer Phone Subscriber Number Group Number Insured Name Patient Relationship to Insured Coverage Start Date Coverage End Date [facility] [address] [place] [address] [phone] [id number] Casey Ulrich Self - patient is the insured Medical (General) History Medical History History ICD Code angina transfusions neuropathy mumps measles Gout fibromyalgia diabetic depression back, hip, knee pain asthma Arthritis Anxiety disorder Left Foot Drop Irritable bowel syndrome 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 Unsteady gait R26.81 Other hammer toe(s) (acquired), right fo ot M20.41 Other hammer toe(s) (acquired), left mc t M20.42 Charcot foot due to diabetes mellitus E1 1.610 Surgical History Surgery Date(Month/Year) amputation of foot total(partial) 2002 cholecystectomy 1975 splenectomy 1975 tonsillectomy 1950 colonoscopy 07/31/19 kidney stones- 4 removed- left kidney- r enal scan - kidney disease 04/2020 Hospitalization History Reason Date(Month/Year) [facility] - chest pains 02/02 [facility]- Possible Heart Attack/Stress Anxiet y/Covid 07/31 [facility]- Bladder Scan [facility]- [facility] Scan [facility]- chest pain 10/31 [facility] [place]- Pressure wound right ankle - saw ia rakesh bonilla [facility]- chest pain 10/2015
== END 2025-04-11 16:47 | disposition home or self-care (01) ==
LOC: HO.HMCC 15:23
PROVIDERS: PCP Nurse Practitioner Family; Visit Provider Nurse Practitioner Family
DX: R53.83 Other fatigue (principal); R53.1 Weakness; U09.9 Post COVID-19 condition, unspecified

== ENCOUNTER 2025-04-30 14:52 | Outpatient (REF) | payer BC, SELFPAY ==
--- NOTE | ~2025-04-30 | XR_ITS ---
EXAMINATION: XR SHOULDER, RIGHT CLINICAL INFORMATION: S46.911A - Strain of unspecified muscle, fascia and tendon at shoulder a... COMPARISON: None available. TECHNIQUE: Three views of the right shoulder. FINDINGS: Moderate marginal osteophytes are present involving glenoid and humeral head. There is no AC joint separation. There is no dislocation. XR/XR shoulder RT min 2V IMPRESSION: Moderate degenerative changes, glenohumeral joint. Electronically signed by: Luis F Gallagher MD 04/30/2025 03:34 PM EDT
--- OUTSIDE RECORDS SUMMARY | 2025-04-30 15:38 | XMS_ITS | Encounter Summary ---
Author Organization [facility] Address [address] [place] [phone] Phone Care Team Providers Care Customer Advocacy Manager Name Role Phone Pcp, Unknown Primary Care Provider Stuart Carrasco TRANSPORT TRUCK DRIVER Primary Care Provider + Encounter Details Date Type Department Care Team (Late st Contact Info) Description 01/10/2021 Transcribe Orders [facility] [address] [address] [address] [place] [id number] [email or web address] Social History Tobacco Use Types Packs/Day Years Used Date Smoking Tobacco: Never Assessed Sex and Gender Information Value Date Recorded Sex Assigned at Male 04/27/2024 9:27 AM EDT Legal Sex Male 6:38 PM EST Gender Identity Male 04/27/2024 9:27 AM EDT Sexual Orientation Lesbian or Mccauley 04/27/2024 9: 27 AM EDT documented as of this encounter Plan of Treatment Not on file documented as of this encounter Visit Diagnoses Not on filedocumented in this encounter Care Teams Customer Advocacy Manager Relationship Specialty Start Date End Date Pcp, Unknown PCP - General 11/20/20 04/26/24 Stuart Will NP [address] [facility] [place] [address] .[place] PCP - General Nurse Practitioner 7/18/24 documented as of this encounter Additional Source Comments The information contained in this document represents components of the legal health record. It is not the complete legal health record.[facility]
--- OUTSIDE RECORDS SUMMARY | 2025-04-30 15:38 | XMS_ITS | Clinical Summary ---
Author Organization [facility] Address [address] [place] [address] Phone Care Team Providers Care Chemistry Department Chair Name Role Phone Stuart Will NP Primary Care Provider Social History Tobacco Use Types Packs/Day Years Used Date Smoking Tobacco: Never Assessed Sex and Gender Information Value Date Recorded Sex Assigned at Not on file Legal Sex Male 7:48 PM EST Gender Identity Not on file Sexual Orientation Not on file Plan of Treatment Upcoming Encounters Date Type Department Care Team (Late st Contact Info) Description 05/28/2025 3:00 PM EDT Office Visit [address] [facility] [address] [place] [address] Stuart Hernandez MD [address] [place] [address],[address] [id number] Health Maintenance Due Date Last Done Comments DTaP,Tdap,and Td Vaccines (1 - Tdap) 1965 Pneumococcal Vaccine: 50+ Ye ars (1 of 1 - PCV) 1996 Zoster Vaccines (1 of 2) 1996 RSV Immunization Adult Patie nts (1 - 1-dose 75+ series) 2021 COVID-19 Vaccine ( - 2023-2 5 season) 2024 Depression Screening 10/11/2024 Cholesterol Screening (Lipid Panel) 01/18/2025 Falls Risk Assessment 01/18/2025 Hepatitis C Screening 01/18/2025 Social Influencers of Health Screening 01/18/2025 Influenza Vaccine (#1) 2025 HIB Vaccines Aged Out No longer [...] age to complete this topic Insurance MEDICARE [facility] Care Teams Chemistry Department Chair Relationship Specialty Start Date End Date Stuart Will NP PCP - General Family Medicine 01/25/25
--- OUTSIDE RECORDS SUMMARY | 2025-04-30 15:38 | XMS_ITS | Patient Health Record ---
Author Organization [facility] Address [address] [place] [address] Care Team Providers Care Meteorology Faculty Member Name Role Phone MARC HERNANDEZ Primary Care Provider Ernesto Beck [phone] Allergies No Known Allergies Reason For Referral [...] day(s) Active Ketoconazole 2 % 1 application Financial Services Rep ally Once a day for 14 day(s) [...] Problem Status W/U Status Risk Notes Problem [id number] Encounter for screening for malignant neoplasm of colon (Z12.11) Active confirmed Problem 089701642 History of adenomatous polyp of colon (Z86.010) Active confirmed Problem 161073795 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 Problem [id number] Preprocedural examination (Z01.818) Active confirmed Problem 636755796 History of colon cancer (Z85.038) Active confirmed Problem 73896331 Constipation, unspecified constipation type (K59.00) Active confirmed Problem Diverticulosis of colon (926802491) Diverticulosis of colon (K57.30) Active confirmed Problem 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) Active confirmed Vital Signs Temperature 97.9 degrees Fahrenheit 04/04/2025 Blood pressure diastolic 01 mm Hg 04/04/2025 Height 71.5 in 04/04/2025 Blood pressure systolic 001 mm Hg 04/04/2025 Weight 196 lbs 04/04/2025 BMI 26.95 kg/m2 04/04/2025 Procedures Procedure Date Ordered Date Performed Result Body Sit e COLONOSCOPY 04/04/2025 N/A Encounters Encounter Location Date Provider Diagnosis [facility] [address] [place] [address] 04/04/2025 Ernesto Wu History of adenomato us polyp of colon Z86.010 ; Irritable bowel syndrome K58.9 ; Encounter for screening for malignant neoplasm of colon Z12.11 ; History of colon cancer Z85.038 and Preprocedural examination Z01.818 [facility] [address] [place] [address] 09/12/2024 Ernesto Wu [facility] [address] [place] [address] 10/03/2024 Ernetso Wu [facility] [address] [place] [address] 01/30/2025 Ernesto Wu [facility] [address] [place] [address] 04/05/2025 Ernesto Wu Assessments Encounter Date Diagnosis (ICD Code) Assessment Notes Treatment Notes Treatment Clinical Notes Section Notes 04/04/2025 Irritable bowel syndrome (ICD-10 - K58.9) Overall, Jordin appears well from a GI [...] procedure. He will be seen by his running rigger prior to the procedure and I did [...] advised of his progress. 04/04/2025 History of adenomatous polyp of colon [...] procedure. He will be seen by his running rigger prior to the procedure and I did [...] procedure. He will be seen by his running rigger prior to the procedure and I did [...] procedure. He will be seen by his running rigger prior to the procedure and I did [...] procedure. He will be seen by his running rigger prior to the procedure and I did [...] Provider Name:Ernesto Wu , 10/01/2025 07:30:00 AM, [address] [place] [address] , [place], [place], [phone], Insurance Providers Payer Name Payer Address Payer Phone Subscriber Number Group Number Insured Name Patient Relationship to Insured Coverage Start Date Coverage End Date [facility] [address] [place], [place] [id number] MELISSA ELDER Self - patient is the insured Medical (General) History Medical History History ICD Code Denies ME,CVA,Lung disease,renal disease IDDM Pulmonary sarcoidosis- inactive Spherocytosis [...] yps-3 tubular adenomas Surgical History Surgery Date(Month/Year) Right ureteral surgery for stones with Jazlyn Liriano at [facility] Right colectomy 09/[address] 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
--- OUTSIDE RECORDS SUMMARY | 2025-04-30 15:38 | XMS_ITS | Patient Health Record ---
Author Organization [facility] Address [address] [place] [address] Care Team Providers Care Governor Assembler Hydraulic Name Role Phone Stuart Lozano Primary Care Provider Unav ailable Black, Marychuy Unavailable [phone] Allergies Allergen (clinical drug ingredient) Drug/Non Drug Allergy documented on EMR Reaction Allergy Type Onset Date Status 12 Hour Nasal [place] Unknown Drug Allergy Active Dust Mites Unknown [...] Notes Start Date End Date Status Vitamin D3 Active Vitamin D Active HumuLIN N Active Zinc Active Vitamin C 500 MG as directed Orally O nce a day Active Resveratrol Active Flax Seed Oil Active Vitamin B Complex - as directed Orally Active Berberine HCI 500 MG as directed Orally Active Prevnar 13 Not-Takin g Venlafaxine HCl Not- Taking Atenolol Not-Taking Vitamin E Not-Taking Turmeric Active Extra Depth Orthopedic Shoes (1 Pair) with Customized Heat Molded Multidensity Innersoles (3 Pair) as directed Dx: IDDM/Polyneuropathy (E10.42), Hammertoe Foot Deformity (M20.41,M20.42), Preulcerative Skin Lesion(s) (L85.1) 06/02/2018 Not-Taking Multivitamins Not-Jacek shellie Ascorbic Acid Not-Jacek shellie Vitamin C & E Complex Not-Taking HumaLOG Not-Taking Metaform Not-Taking AFO-Hinged as directed Wear Juli ly; Duration: as needed 09/08/2021 Active Ammonium Lactate 12 % 1 application Exte rnally to affected areas of dry skin to feet except for between the toes Twice a day; Duration: 30 days Active Flax Seeds - as directed Orally Not-Taking Aspirin 81 81 MG 1 tablet Orally Once a day Not-Taking [place] 3-6-9 Not-Taki ng Nattokinase 100 MG as directed Orally Not-Taking Keflex Not-Taking Aspirin 81 MG 1 tablet Orally Once a day; Duration: 30 day(s) Active Timolol Maleate PF N ot-Taking Lovastatin Not-Takin g Magnesium Not-Taking Vitamin A Active I26-Zvdwtj Active Immunizations Vaccine Route Administration Date Status [...] No Points 0 Interpretation Negative Section Notes: Pt declined flu shot Eye [...] Pt declined flu shot Eye exam, Dr Tucker-08/2015 Pt declined flu shot Problems Problem Type SNOMED Code ICD Code Onset Dates Problem Status W/U Status Risk Notes Problem Polyneuropathy due to diabetes mellitus type I (385581051) 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 Problem Neuropathic ulcer of right foot (disorder) (831129402559572 02) Neuropathic ulcer of right foot, limited to breakdown of skin (L97.511) Active confirmed Response to treatment - Improvement Vital Signs Blood pressure diastolic 65 mm Hg 04/30/2025 Height 5ft 11in in 04/30/2025 Blood pressure systolic 110 mm Hg 04/30/2025 Weight 195 lbs 04/30/2025 BMI 27.19 kg/m2 04/30/2025 Procedures Procedure Date Ordered Date Performed Result Body Sit e 70406-OCXLRRG NAIL, 6 OR MORE 05/11/2024 N/A 24655-UAYQ SKIN LESIONS, OVER 4 05/11/2024 N/A 73570-VSMDHTS NAIL, 1-5 08/17/2024 N/A 27632-Jmuycyef Plate 08/17/2024 N/A 02332-Jyhaxftq Plate Each Additional 08/17/2024 N/A 37812-YGYD SKIN LESIONS, OVER 4 08/17/2024 N/A 32364-SMIFVNC NAIL, 6 OR MORE 11/23/2024 N/A 49185-VENO SKIN LESIONS, OVER 4 11/23/2024 N/A 74278-YCIDIOE NAIL, 6 OR MORE 03/15/2025 N/A 92820- Debride <25 sq cm 03/15/2025 N/A 04651-RFVE SKIN LESIONS, OVER 4 03/15/2025 N/A 30117- Debride <25 sq cm 04/02/2025 N/A Encounters Encounter Location Date [facility] [address] 04/30/2025 Marychuy Black Neuropathic ulcer of right foot, limited to breakdown of skin L97.511 and Type 1 diabetes mellitus with diabetic polyneuropathy E10.42 [facility] [address] 05/11/2024 Marychuy Black Type 1 diabetes mellitus with diabetic polyneuropathy E10.42 and Tinea unguium B35.[address] [address] 08/17/2024 Marychuy Black Type 1 diabetes mellitus with diabetic polyneuropathy E10.42 ; Tinea unguium B35.1 ; Ingrown nail L60.0 and Skin ulcer of toe of left foot, limited to breakdown of skin L97.[address] [address] 11/23/2024 Marychuy Black Type 1 diabetes mellitus with diabetic polyneuropathy E10.42 ; Xerosis of skin L85.3 and Tinea unguium B35.[address] [address] 03/15/2025 Marychuy Black Type 1 diabetes mellitus with diabetic polyneuropathy E10.42 ; Xerosis of skin L85.3 ; Tinea unguium B35.1 and Skin ulcer of toe of right foot, limited to breakdown of skin L97.[address] [address] 04/02/2025 Marychuy Black Neuropathic ulcer of right foot, limited to breakdown of skin L97.511 and Type 1 diabetes mellitus with diabetic polyneuropathy E10.[address] [address] 04/30/2025 Marychuy Black [address] [address] 08/22/2024 Marychuy Black [address] [address] 11/23/2024 Marychuy Black Assessments Encounter Date Diagnosis [...] INSTRUCTIONS. pdf (WOUND CARE INSTRUCTIONS. pdf) 04/30/2025 Neuropathic ulcer of right foot, limited to breakdown of skin (ICD-10 - L97.511) Response to treatment - Improvement Patient Educated with: WOUND CARE INSTRUCTIONS. pdf (WOUND CARE INSTRUCTIONS. pdf) 04/30/2025 Type 1 diabetes mellitus with diabetic polyneuropathy (ICD-10 - E10.42) 11/23/2024 Tinea unguium (ICD-10 - B35.1) 04/02/2025 [...] Test Name Order Date Hemoglobin A1c 12/02/2015 10089-TEOCPRF NAIL, 6 OR MORE 07/08/2023 14834-UOGXSFT NAIL, 6 OR MORE 10/21/2023 97457-HGSTGLW NAIL, 6 OR MORE 05/11/2024 25858-DRTTJDP NAIL, 6 OR MORE 11/23/2024 41661-STTNLWH NAIL, 6 OR MORE 03/15/2025 52093-GLNBACE NAIL, 6 OR MORE 12/02/2020 37780-EOJUYOO NAIL, 6 OR MORE 03/13/2021 66771-OONCBMR NAIL, 6 OR MORE 06/09/2021 09666-XGSNNXJ NAIL, 6 OR MORE 09/08/2021 74228-CDUWJEX NAIL, 6 OR MORE 01/30/2022 86580-HLIFXVM NAIL, 6 OR MORE 06/22/2022 80762-SWYGCZA NAIL, 6 OR MORE 09/28/2022 38087-HLFWRYT NAIL, 6 OR MORE 12/28/2022 91387-UNEHRZE NAIL, 6 OR MORE 04/05/2023 68541-GZAMCOK NAIL, 6 OR MORE 10/01/2011 60005-UUHBVEU NAIL, 6 OR MORE 12/03/2011 15352-OAFTBHY NAIL, 6 OR MORE 03/03/2012 54805-TCBCUQD NAIL, 6 OR MORE 06/02/2012 30802-BUCCCEO NAIL, 6 OR MORE 11/03/2012 50847-HOJKJDI NAIL, 6 OR MORE 01/23/2013 35218-EGOVPES NAIL, 6 OR MORE 04/03/2013 16077-WSSIDNF NAIL, 6 OR MORE 06/28/2013 99952-LSZKTMD NAIL, 6 OR MORE 09/13/2013 66203-FHWQCXZ NAIL, 6 OR MORE 12/13/2013 58989-FFRPURR NAIL, 6 OR MORE 03/22/2014 19409-KPAHMKX NAIL, 6 OR MORE 06/21/2014 42110-FSEJOFI NAIL, 6 OR MORE 09/20/2014 39727-FIHWUZV NAIL, 6 OR MORE 12/06/2014 26147-PAROLUQ NAIL, 6 OR MORE 02/21/2015 13437-JYYRZTV NAIL, 6 OR MORE 05/13/2015 04820-AZZJGEH NAIL, 6 OR MORE 09/09/2015 87819-ZJVKSHS NAIL, 6 OR MORE 12/02/2015 13191-NCMIBMU NAIL, 6 OR MORE 02/24/2016 14128-FXFQDPP NAIL, 6 OR MORE 06/01/2016 75853-GODFJIR NAIL, 6 OR MORE 08/27/2016 42309-XHQKDER NAIL, 6 OR MORE 12/07/2016 33512-UUGEVXD NAIL, 6 OR MORE 03/11/2017 46850-AGUFOFD NAIL, 6 OR MORE 06/24/2017 86208-TDNLYUX NAIL, 6 OR MORE 09/27/2017 23502-FPUNVVW NAIL, 6 OR MORE 12/27/2017 05266-ZNPHYSC NAIL, 6 OR MORE 06/02/2018 76258-XOQUQCP NAIL, 6 OR MORE 08/25/2018 60182-BHUCFKV NAIL, 6 OR MORE 11/24/2018 01519-APSNKUG NAIL, OR MORE 03/09/2019 44181-CPEHUKT NAIL, 6 OR MORE 06/05/2019 19175-IVLRKWZ NAIL, 6 OR MORE 09/18/2019 90561-OTECRLB NAIL, OR MORE 03/11/2020 53702-IDUCPWV NAIL, OR MORE 06/13/2020 28898-OICKLQD NAIL, 6 OR MORE 09/23/2020 84639-LEYUTYL NAIL, 1-5 08/17/2024 99683-IXKJYBX NAIL, 1-01/20/2024 40926-Aiji Destruction, -14 09/08/2021 13651-Hjtd Destruction, 10-2406/09/2021 51559-Ifcd Destruction, -03/11/2020 62919-Wgff Destruction, 10-2406/05/2019 38110-Mgrh Destruction, 10-2409/18/2019 50266-Ntnc Destruction, 10-2403/09/2019 08842-Zymd Destruction, -05/13/2015 05266-Oprs Destruction, 10-2402/21/2015 51072-Pxua Destruction, 10-2412/06/2014 67850-Dyiq Destruction, 10-2409/20/2014 79841-Xjlg Destruction, 10-2406/21/2014 98925-Lhlg Destruction, 10-2403/22/2014 01278-Ctnc Destruction, 10-2412/13/2013 36903-Oqra Destruction, 10-2409/13/2013 34361-Tibf Destruction, 10-2406/28/2013 67514-Bbig Destruction, 10-2404/03/2013 05065-Klbl Destruction, 10-2401/23/2013 06969-Hplo Destruction, 10-2411/03/2012 66898-Gnxt Destruction, 10-2406/02/2012 71065-Rmha Destruction, -14 10/01/2011 38992-Gjav Destruction, -03/03/2012 07235-Msco Destruction, -12/03/2011 55303-Fjakoacw Plate 03/03/2012 37335-Cpxbytnv Plate 12/03/2011 38058-Clcjqfxe Plate 06/02/2012 79031-Puepovav Plate 01/23/2013 00346-Ptdaokkz Plate 04/03/2013 90873-Paihipcz Plate 06/28/2013 70637-Vavpdyam Plate 09/13/2013 46884-Gkthfyon Plate 12/13/2013 27159-Ufigjvtg Plate 03/22/2014 85284-Dnhxvmkh Plate 06/21/2014 16288-Nreyafsj Plate 09/20/2014 84242-Hgnufsds Plate 12/06/2014 81791-Wbpeygtd Plate 02/21/2015 26017-Vfamoafj Plate 05/13/2015 49458-Qtnjwixr Plate 12/27/2017 97006-Mlgdqkjk Plate 06/05/2019 70448-Tvipgffj Plate 11/24/2018 64800-Mqihuogv Plate 03/09/2019 79251-Uofjoflv Plate 08/25/2018 96729-Ooiommhh Plate 09/18/2019 44366-Wnmcnchw Plate 03/11/2020 15213-Enszflnq Plate 09/27/2017 59200-Eylmkari Plate 12/07/2016 15520-Xfchpear Plate 08/27/2016 84428-Deqwztff Plate 06/01/2016 91208-Ufnayfup Plate 02/24/2016 16619-Gntobdno Plate 12/02/2015 22205-Mmniarik Plate 11/03/2012 62699-Vvndqfzn Plate 09/09/2015 97809-Idposvlb Plate 06/09/2021 65338-Hyauuxwr Plate 06/13/2020 76873-Ieustlsk Plate 09/08/2021 29700-Jvwmmbxi Plate 03/13/2021 93283-Aiatlubs Plate 09/23/2020 46393-Kvypmsgl Plate 01/30/2022 62130-Bbsqdqhp Plate 06/22/2022 44694-Vklfbtyd Plate 01/20/2024 51604-Chqifplf Plate 08/17/2024 09078-Qcgzjoxz Plate Each Additional 09/2022 59246-Dyzuabjd Plate Each Additional 04/2024 99449-Tuijulbq Plate Each Additional 10502-Fzgvxtgb Plate Each Additional 07641-Efnjzabd Plate Each Additional 12/2020 68651-Zztlepaq Plate Each Additional 69623-Zvbryixw Plate Each Additional 40568-Sqgzlkfg Plate Each Additional 89582-Lnesrkub Plate Each Additional 41907-Efexyoqt Plate Each Additional 04986-Zfrvuavn Plate Each Additional 07297-Bpteyrhq Plate Each Additional 23303-Lvcvlwuj Plate Each Additional 68056-Wyjeeqrk Plate Each Additional 81287-Rinywrbm Plate Each Additional 06/2019 02416-Renmdndz Plate Each Additional 10/2019 26080-Snjuhfeh Plate Each Additional 45276-Rreathpa Plate Each Additional 46633-Jegsgvvx Plate Each Additional 17943-Rqtcffri Plate Each Additional 12/2014 70252-Grhfxhsn Plate Each Additional 74897-Tuqbrsee Plate Each Additional 08090-Zkhyntwl Plate Each Additional 08/2014 18941-Dymeqhjf Plate Each Additional 08/2014 48750-Ddmrrccw Plate Each Additional 09/2014 30654-Nparahkz Plate Each Additional 02/2014 76229-Xjvnihwp Plate Each Additional 01/2013 05329-Mfdbqgmi Plate Each Additional 86453-Yqvxcnvs Plate Each Additional 09845-Uyklqdub Plate Each Additional 05221-Iwikfocf Plate Each Additional 01266-Quvwcods Plate Each Additional 61229- Debride <25 sq cm 06/13/2020 93761- Debride <25 sq cm 04/05/2023 85837- Debride <25 sq cm 03/15/2025 52068- Debride <25 sq cm 04/02/2025 75313 I&D ABSCESS- SIMPLE,SINGLE 013 37124 I&D ABSCESS- SIMPLE,SINGLE 013 92361-QWAW SKIN LESIONS, OVER 4 01/24/20 13 84033-BWTO SKIN LESIONS, OVER 4 11/03/19 13 36363-XFZK SKIN LESIONS, OVER 4 04/03/20 13 68454-OMKW SKIN LESIONS, OVER 4 06/28/20 13 54704-VMWH SKIN LESIONS, OVER 4 09/13/20 13 76420-HWSP SKIN LESIONS, OVER 4 12/14/19 14 70094-HCXG SKIN LESIONS, OVER 4 03/22/20 14 43706-EVSA SKIN LESIONS, OVER 4 06/21/20 14 93370-RSMD SKIN LESIONS, OVER 4 09/20/20 14 63643-VJBA SKIN LESIONS, OVER 4 12/06/19 15 57781-LMVQ SKIN LESIONS, OVER 4 02/22/20 15 39591-GNVX SKIN LESIONS, OVER 4 05/13/20 15 18557-NBRO SKIN LESIONS, OVER 4 06/13/20 20 89873-HQJW SKIN LESIONS, OVER 4 09/23/20 20 37908-GMRT SKIN LESIONS, OVER 4 03/11/20 20 26340-WPZT SKIN LESIONS, OVER 4 09/18/20 19 81923-EGFO SKIN LESIONS, OVER 4 03/09/20 19 99668-MACO SKIN LESIONS, OVER 4 06/05/20 19 93209-HBAG SKIN LESIONS, OVER 4 11/24/19 19 19252-TARC SKIN LESIONS, OVER 4 08/25/20 18 11234-DETS SKIN LESIONS, OVER 4 12/28/19 18 92683-JTWV SKIN LESIONS, OVER 4 06/02/20 18 98915-VPFB SKIN LESIONS, OVER 4 09/27/20 17 08747-AOKE SKIN LESIONS, OVER 4 06/24/20 17 77129-LIET SKIN LESIONS, OVER 4 12/07/19 17 24514-UALL SKIN LESIONS, OVER 4 03/11/20 17 39014-ATSH SKIN LESIONS, OVER 4 08/27/20 16 48668-RWVX SKIN LESIONS, OVER 4 06/01/20 16 59675-SZEM SKIN LESIONS, OVER 4 02/24/20 16 18666-ZLBG SKIN LESIONS, OVER 4 12/02/19 16 75087-AGGM SKIN LESIONS, OVER 4 09/09/20 15 30691-PANK SKIN LESIONS, OVER 4 03/15/20 25 35710-WNTA SKIN LESIONS, OVER 4 08/17/20 24 25643-ZPEC SKIN LESIONS, OVER 4 11/23/19 25 94131-MDIJ SKIN LESIONS, OVER 4 05/11/20 24 21443-CCIZ SKIN LESIONS, OVER 4 01/20/20 24 81885-UGIZ SKIN LESIONS, OVER 4 10/21/19 24 39018-TTCO SKIN LESIONS, OVER 4 04/05/20 23 69348-EMTR SKIN LESIONS, OVER 4 07/08/20 23 78872-OGWT SKIN LESIONS, OVER 4 12/29/19 23 76859-JFIE SKIN LESIONS, OVER 4 09/28/20 28068-RGFF SKIN LESIONS, OVER 4 06/22/20 59561-CBKV SKIN LESIONS, OVER 4 01/31/20 09211-KJYB SKIN LESIONS, OVER 4 09/08/20 16331-JJUC SKIN LESIONS, OVER 4 06/09/20 21 61972-QBZI SKIN LESIONS, OVER 4 12/02/19 21 46580-XZNU SKIN LESIONS, OVER 4 03/13/20 60131-IWLB SKIN LESIONS, 2 TO 4 06/02/20 12 61914-BCWS SKIN LESIONS, 2 TO 4 03/03/20 12 96589-CXYC SKIN LESIONS, 2 TO 4 12/03/19 12 33823-IWOJ SKIN LESIONS, 2 TO 4 10/01/20 11 Next Appt Details Provider Name:Marychuy Kelley , 05/28/2025 02:30:00 PM, [address] [place] [address], [phone], Provider Name:Marychuy Kelley , 06/28/2025 02:30:00 PM, [address] [place] [address], [phone], Insurance Providers Payer Name Payer Address Payer Phone Subscriber Number Group Number Insured Name Patient Relationship to Insured Coverage Start Date Coverage End Date [facility] [address] [place] [address] [id number] Casey Ulrich Self - patient is the [...] cholecystectomy 1975 splenectomy 1975 tonsillectomy 1950 colonoscopy 10/21/19 kidney stones- 4 removed- left kidney- r enal scan - kidney disease 04/2020 Hospitalization History Reason Date(Month/Year) C - chest pains 02/02 [facility]- Possible Heart Attack/Stress Anxiet y/Covid 07/31 [facility]- Bladder [facility] Scan [facility]- chest pain 10/31 [facility]- Pressure wound right ankle - saw nm rakesh [facility]- chest pain 10/2015
--- OUTSIDE RECORDS SUMMARY | 2025-04-30 15:39 | XMS_ITS | Clinical Summary ---
Author Organization [facility], Address [address] [place] [address] [place] [address] Phone Care Team Providers Care Multiple Drum Sander Helper Name Role Phone Stuart Will NP Primary Care Provider [phone] Allergies Active Allergy Reactions Criticality Noted Date [...] Visual Foot Exam 11/19/2021 Influenza Vaccine (#1) 2025 09/19/2018 Pneumococcal Vaccine: 50+ Years Completed 02/10/2019, 11/11/2018, 12/27/2017 Pneumococcal Vaccine: Peds ( 0 to 5 Years) and At-Risk Patients (6 to 49 Years) Discontinued 02/10/2019, 11/11/2018, 12/27/2017 Hepatitis B Vaccine Aged Out No longe r eligible based on patient's age to complete this topic Insurance [address] [address] Care Teams Multiple Drum Sander Helper Relationship Specialty Start Date End Date Stuart Will [place] [address] PCP - General Nurse Practitioner 12/06/20
== END 2025-04-30 14:53 | disposition home or self-care (01) ==
LOC: HO.HMGCX 14:52
PROVIDERS: PCP Nurse Practitioner Family; Visit Provider Nurse Practitioner Family
DX: S46.911A Strain of unspecified muscle, fascia and tendon at shoulder and upper arm level, right arm, initial encounter (principal)
CPT/HCPCS: 73030

== ENCOUNTER → 2025-04-30 14:57 | Outpatient (BNV) | payer BC, SELFPAY | PROVIDERS: PCP Nurse Practitioner Family; Visit Provider Radiology Diagnostic Radiology | DX: M25.711 Osteophyte, right shoulder (principal) | CPT/HCPCS: 73030 ==

== ENCOUNTER 2025-05-02 14:03 | Outpatient (REF) | payer BC, SELFPAY ==
--- OUTSIDE RECORDS SUMMARY | 2025-04-30 09:45 | XMS_ITS ---
Author Organization [facility] [place] Address [address] [place] [address] Care Team Providers Care Game Tester Name Role Phone Stuart Lozano Primary Care Provider Unav ailable Black, Marychuy Unavailable [phone] Allergies Allergen (clinical drug ingredient) Drug/Non Drug Allergy documented on EMR Reaction Allergy Type Onset Date Status 12 Hour Nasal [place] Unknown Drug Allergy Active Dust Mites Unknown Allergy Active REASON FOR VISIT Open sore Medications Medication SIG (Take, Route, Frequency, Duration) Notes Start Date End Date Status Aspirin 81 81 MG 1 tablet Orally Once a day Not-Taking Gravity 3-6-9 Not-Taki ng Nattokinase 100 MG as directed Orally Not-Taking Extra Depth Orthopedic Shoes (1 Pair) with Customized Heat Molded Multidensity Innersoles (3 Pair) as directed Dx: IDDM/Polyneuropathy (E10.42), Hammertoe Foot Deformity (M20.41,M20.42), Preulcerative Skin Lesion(s) (L85.1) 06/02/2018 Not-Taking Multivitamins Not-Ta shellie Flax Seeds - as directed Orally Not-Taking Aspirin 81 MG 1 tablet Orally Once a day; Duration: 30 day(s) Active Timolol Maleate PF N ot-Taking Lovastatin Not-Takin g Magnesium Not-Taking Zinc Active Vitamin C 500 MG as directed Orally O nce a day Active AFO-Hinged as directed Wear Juli ly; Duration: as needed 09/08/2021 Active Ammonium Lactate 12 % 1 application Exte rnally to affected areas of dry skin to feet except for between the toes Twice a day; Duration: 30 days Active Turmeric Active Vitamin D Active HumuLIN N Active Flax Seed Oil Active Vitamin B Complex - as directed Orally Active Berberine HCI 500 MG as directed Orally Active Keflex Not-Taking Resveratrol Active Vitamin D3 Active Vitamin A Active P08-Qspcwr Active HumaLOG Not-Taking Metaform Not-Taking Venlafaxine HCl Not- Taking Atenolol Not-Taking Vitamin E Not-Taking Prevnar 13 Not-Takin g Ascorbic Acid Not-Ta shellie Vitamin C & E Complex Not-Taking Social History Tobacco Use: Social History Observation Description Date Details (start date - stop date) Never Smoker NA - NA Tobacco Use/Smoking Question Answer Notes Are you a: nonsmoker Additional Findings: Tobacco Non-User Current no n-smoker Tobacco use other than smoking: Question Answer Notes Are you an other tobacco user? No AUDIT-C (Standard) Question Answer Notes Did you have a drink containing alcohol in the p ast year? No Points 0 Interpretation Negative Vital Signs Height 5ft 11in in 04/30/2025 Weight 195 lbs 04/30/2025 BMI 27.19 kg/m2 04/30/2025 Blood pressure systolic 110 mm Hg 04/30/20 25 Blood pressure diastolic 65 mm Hg 025 Procedures Procedure Date Ordered Date Performed Result Body Sit e 63261- Debride <25 sq cm 04/30/2025 N/A Encounters Encounter Location Date Provider Diagnosis [facility] [place] [address] [place] [address] 04/30/2025 Marychuy Black Neuropathic ulcer of right foot, limited to breakdown of skin L97.511 and Type 1 diabetes mellitus with diabetic polyneuropathy E10.42 Assessments Encounter Date Diagnosis (ICD Code) Assessment Notes Treatment Notes Treatment Clinical Notes Section Notes 04/30/2025 Neuropathic ulcer of right foot, limited to breakdown of skin (ICD-10 - L97.511) Response to treatment - Unchanged Patient Educated with: WOUND CARE INSTRUCTIONS. pdf (WOUND CARE INSTRUCTIONS. pdf) 04/30/2025 Type 1 diabetes mellitus with diabetic polyneuropathy (ICD-10 - E10.42) Plan Of Treatment Treatment Notes Assessment Notes Neuropathic ulcer of right f oot, limited to breakdown of skin Patient Educated with: WOUND CARE INSTRUCTIONS.pdf (WOUND CARE INSTRUCTIONS.pdf) Pending Test Test Name Order Date 59940- Debride <25 sq cm 04/30/2025 Next Appt Details Follow Up: 4 Weeks, Reason: Provider Name:Marychuy Kelley , 05/24/2025 01:45:00 PM, [address] [place] [address], [phone], Provider Name:Marychuy Kelley , 06/28/2025 02:30:00 PM, [address] [place] [address], [phone], Procedure Notes * Category Sub-Category Detail Notes Debride skin< 25 sq cm Open wound [...] to presence of NEUROPATHY. Post debridement measurements: 2 mm x 2mm x 2mm. Character of the wound post debridement is stable (79500) recomm. pt applying more gauze to the tip of the digit and not applying so tight Progress Notes * KENANMARIN Casey KDOB:[birth year] (79 yo M)Acc No.[id number]:04/30/2025 Progress Notes Patient: Casey CRUZ Provider: Karine Kelley DPM :1945 A ge:79 Y S ex:Male Date:04/30/2025 Address:[address] [place], [place] [phone] Pcp:Stuart Will NP-ARIK Subjective: * Chief Complaints: * O pen sore * HPI: A t Risk footcare: Pt States Last PCP Visit: D ate 0 12/27/2024 S kin problems: Treatments: , Local care consisting of daily distilled water wound cleanse, topical antibiotic as recommended, application of sterile dressing, offloading/pressure reduction via rest, shoe modification, insert modification, accommodative padding, assisted ambulation via cane/ crutch/ walker/ wheel chair/ knee scooter, and surgical debridement. 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 * ROS: G eneral/Constitutional: Nausea d enies, d enies. V omiting d enies,?denies. H manuelito Thirst d enies, d enies. L oss appetite d enies, d enies.?Chills d enies, d enies. F atigue d enies, d enies. F ever d enies, denies. N ight Sweats d enies, d enies. U nexplained weight loss d enies,?denies. O phthalmologic: Blurred vision d enies, d enies. R ed eye d enies, d enies. H EENTM: Dentures d enies, d enies. D izziness d enies,?denies. G lasses/contacts a dmits, a dmits. R etinopathy d enies, d enies. B lurred/double vision d enies, d enies. T MJ d enies, d enies. D ischarge/drainage d enies, d enies. I mplants d enies, d enies. H jocelin of hearing d enies, d enies. D ifficulty chewing/swallowing/speaking d enies, d enies.?Nose bleeds d enies, d enies. S ore mouth d enies, d enies. S wollen glands d enies, d enies. R espiratory: On Oxygen d enies, d enies. P neumonia/pleurisy?denies, d enies. B ronchitis d enies, d enies. E mphysema d enies, d enies. C oughing d enies, d enies. C ough blood d enies, d enies. S hortness of breath d enies, d enies. W heezing d enies, d enies. C ardiovascular: Pacemaker d enies, d enies. M [employer] d enies, d enies. W PW d enies, d enies. C HF d enies, d enies. H eart attack d enies, d enies. S eptal defect d enies, d enies. R apid beat d enies, d enies. C hest pain d enies, d enies. A trial Fib. d enies, d enies. M urmur/Palpitations d enies, d enies. G astrointestinal: Hemorrhoids d enies, d enies. S tomach/Abdominal pain d enies, d enies. D ark blood stool d enies, d enies. I rritable bowel ?denies, d enies. C onstipation d enies, d enies. D iarrhea d enies, d enies. V omiting d enies, d enies. H ematology: Swelling a dmits, a dmits. B ruising d enies,?denies. B leeding problem d enies, d enies. G enitourinary: Blood urine d enies, d enies. F requent/Painfu/urination/bladder control d enies, d enies. K idney stones d enies, d enies. I nfection (UTI) d enies, d enies. N ephropathy d enies, d enies. M usculoskeletal: Hammertoes d enies, d enies. B unions d enies,?denies. S coliosis/kyphosis d enies, d enies. M uscle cramps / walking d enies, d enies. G eneralized aches and pains d enies, d enies. W eakness d enies, d enies. I nteg.: Prince d enies, d enies. S cars d enies, d enies. C orns/calluses d enies, d enies. I ngrown nails a dmits, a dmits.?Painful nails a dmits. R ashes d enies, d enies. N eurologic: Difficulty sleeping d enies, d enies. B ipolar d enies, d enies. B rain disorder d enies, d enies. B alance trouble d enies, d enies. C onfusion d enies. F ainting/blackouts d enies, d enies. H eadache d enies. T remors d enies. * Medical History: * Surgical History: a mputation of foot total(partial) 2003cholecystectomy 1976splenectomy 1976tonsillectomy 1951colonoscopy 07/31/19kidney stones- 4 removed- left kidney- renal scan - kidney disease 04/2020 * Hospitalization/Major Diagno stic Procedure[facility] [place] [place] right [place] - saw minerva bonilla [facility] [place] [facility] 10/[facility] [place] Possible Heart Attack/Stress Anxiety/Covid 07/31[facility] [place] chest pains 02/02 * Family History: M other: , diagnosed with Unspecified essential hypertension, Family history of arthritis. F ather: , diagnosed with Other malignant neoplasm of unspecified site. P aternal Grand Mother: cancer. S iblings: , brother. * Social History: T obacco Use: T obacco Use/Smoking A re you a: n onsmoker A dditional Findings: Tobacco Non-User C urrent non-smoker Tobacco use other than smoking A re you an other tobacco user? N o M iscellaneous: C affeine: yes, frequency:, 2-3 cups per day. Children: no. Exercise: no. Marital status: single. 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 D rug/Alcohol: A DOUG-C (Standard) D id you have a drink containing alcohol in the past year? N o P oints 0 I nterpretation N egative * Medications: T akingVitamin A L25-Xmzlqj Vitamin D3 Resveratrol Flax Seed Oil Vitamin B Complex - Tablet as directed Orally Berberine HCI 500 MG Capsule as directed Orally Vitamin D HumuLIN N Zinc Vitamin C 500 MG Capsule as directed Orally Once a day Turmeric AFO-Hinged as directed Wear Daily Ammonium Lactate 12 % Cream 1 application Externally to affected areas of dry skin to feet except for between the toes Twice a day Aspirin 81 MG Tablet Chewable 1 tablet Orally Once a day Taking Vitamin A Taking N25-Aoydwg Taking Vitamin D3 Taking Resveratrol Taking Flax Seed Oil Taking Vitamin B Complex - Tablet as directed Orally Taking Berberine HCI 500 MG Capsule as directed Orally Taking Vitamin D Taking HumuLIN N Taking Zinc Taking Vitamin C 500 MG Capsule as directed Orally Once a day Taking Turmeric Taking AFO-Hinged as directed Wear Daily Taking Ammonium Lactate 12 % Cream 1 application Externally to affected areas of dry skin to feet except for between the toes Twice a day Taking Aspirin 81 MG Tablet Chewable 1 tablet Orally Once a day Not-Taking/PRNTimolol Maleate PF Lovastatin Magnesium Flax Seeds - Powder as directed Orally Aspirin 81 81 MG Tablet Delayed Release 1 tablet Orally Once a day Gravity 3-6-9 Nattokinase 100 MG Capsule as directed Orally Extra Depth Orthopedic Shoes (1 Pair) with Customized Heat Molded Multidensity Innersoles (3 Pair) as directed Dx: IDDM/Polyneuropathy (E10.42), Hammertoe Foot Deformity (M20.41,M20.42), Preulcerative Skin Lesion(s) (L85.1) Multivitamins Ascorbic Acid Vitamin C & E Complex Prevnar 13 Venlafaxine HCl Atenolol Vitamin E HumaLOG Metaform Keflex Medication List reviewed and reconciled with the patientNot-Taking/PRN Timolol Maleate PF Not-Taking/PRN Lovastatin Not- Taking/PRN Magnesium Not-Taking/PRN Flax Seeds - Powder as directed Orally Not-Taking/PRN Aspirin 81 81 MG Tablet Delayed Release 1 tablet Orally Once a day Not- Taking/PRN Gravity 3-6-9 Not-Taking/PRN Nattokinase 100 MG Capsule as directed Orally Not-Taking/PRN Extra Depth Orthopedic Shoes (1 Pair) with Customized Heat Molded Multidensity Innersoles (3 Pair) as directed Dx: IDDM/Polyneuropathy (E10.42), Hammertoe Foot Deformity (M20.41,M20.42), Preulcerative Skin Lesion(s) (L85.1) Not-Taking/PRN Multivitamins Not-Taking/PRN Ascorbic Acid Not-Taking/PRN Vitamin C & E Complex Not-Taking/PRN Prevnar 13 Not-Taking/PRN Venlafaxine HCl Not- Taking/PRN Atenolol Not-Taking/PRN Vitamin E Not-Taking/PRN HumaLOG Not-Taking/PRN Metaform Not-Taking/PRN Keflex Medication List reviewed and reconciled with the patient * Allergies: 1 2 Hour Nasal SprayDust Mitesyes[Allergies Verified] Objective: * Vitals: H t: 5ft 11in, Wt: 195, BMI: 27.19, Shoe size: 12, BP: 110/65 mm Hg, BS: 77, Ht- cm: 180.34 cm, Wt-k.45 kg. * P ast Orders: L ab:HEMOGLOBIN A1C (GLYCOHEMOGLOBIN) (Order Date - 09/10/2024) (Collection Date & Time - 09/10/2024 02:15 PM) Value Reference Range HEMOGLOBIN A1C % (HH) 5.2 * Examination: O phthalmology Referral: DIABETES EYE EXAM P rocedure Performed: Y es D ate of Exam Performed 0 10/11/2024 F indings of Diabetic Eye Exam: n o retinopathy D ermatologic: ULCER: L OCATION, RIGHT, SIZE, 6mm X 4mm X 2mm, BASE, granular, RIM, hyperkeratotic, UNDERMINING, absent, TRACKING, Full thickness breakdown of skin, DRAINAGE, serosanguineous, mild, NECROTIC TISSUE, loosely-adherent, yellow slough, MALODOR, absent, CALOR, absent, ERYTHEMA, absent. Assessment: * Assessment: 1. T ype 1 diabetes mellitus with diabetic polyneuropathy - E10.42 2 . N europathic ulcer of right foot, limited to breakdown of skin - L97.511 (Primary) N otes :Response to treatment - Unchanged Plan: * Treatment: * Procedures: D ebride skin< 25 sq cm: Open wound N EUROPATHY: Physician of record performed open wound selective debridement of first 25 sq cm or less, of devitilized necrotic/nonviable soft tissue, fibrin, and exudate extending from the epidermis through the dermis, utilizing sharp dissection with sterile 15 blade, and/or tissue nippers. Hemostasis was controlled through direct pressure. Sterile antibiotic dressing applied, ANESTHESIA was not required due to presence of NEUROPATHY. Post debridement measurements: 2 mm x 2mm x 2mm. Character of the wound post debridement is stable (07677) recomm. pt applying more gauze to the tip of the digit and not applying so tight. * Procedure Codes: 9 7597 ACTIVE WOUND CARE/20 CM OR <, Modifiers: T6 * Follow Up: 4 Weeks * Images: * Sign off status: Completed true * Provider: Karine Kelley DPM Date: 0 04/30/2025 Generated for Alfredo logan/Faxing/eTransmitting on: 0 05/02/2025 02:48 PM EDT History and Physical Notes * HPI (History of Present Illness) Category Sub-Category Detail Notes Category Not es Skin problems Treatments: , Local care con sisting of daily distilled water wound cleanse, topical antibiotic as recommended, application of sterile dressing, offloading/pressure reduction via rest, shoe modification, insert modification, accommodative padding, assisted ambulation via cane/ crutch/ walker/ wheel chair/ knee scooter, and surgical debridement 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
--- OUTSIDE RECORDS SUMMARY | 2025-05-02 14:48 | XMS_ITS | Clinical Summary ---
Author Organization [facility] Address [address] [place] [address] Phone Care Team Providers Care Graduating Machine Operator Name Role Phone Stuart Will NP [...] Description 05/28/2025 3:00 PM EDT Office Visit [address] [facility] [address] [place] [address] Stuart Hernandez MD [address] [place] [address],[address] [address] Health Maintenance Due Date Last Done Comments [...] age to complete this topic Insurance MEDICARE [facility] Care Teams Graduating Machine Operator Relationship Specialty Start Date End Date Stuart Will NP PCP - General Family Medicine 01/25/25
--- OUTSIDE RECORDS SUMMARY | 2025-05-02 14:48 | XMS_ITS | Clinical Summary ---
Author Organization [facility], Address [address] [place] [address] [place] [address] Phone Care Team Providers Care Regional Business Development Manager Name Role Phone Stuart Will NP Primary Care Provider [phone] Allergies Active Allergy Reactions Criticality Noted Date [...] patient's age to complete this topic [place] [address] [place] [address] Care Teams Regional Business Development Manager Relationship Specialty Start Date End Date Stuart Will NP [facility] [place] [address] PCP - General Nurse Practitioner 12/06/20
--- OUTSIDE RECORDS SUMMARY | 2025-05-02 14:48 | XMS_ITS | Encounter Summary ---
Author Organization [facility] Address [address] [place] [phone] Phone Care Team Providers Care Greaser And Oiler Name Role Phone Pcp, Unknown Primary Care Provider Stuart Carrasco AERONAUTICAL DRAFTER Primary Care Provider + Encounter Details Date Type Department Care Team (Late st Contact Info) Description 01/10/2021 Transcribe Orders [facility] [address] [address] [address] [place] [id number] [email or web address] Social History Tobacco Use Types Packs/Day Years [...] on filedocumented in this encounter Care Teams Greaser And Oiler Relationship Specialty Start Date End Date Pcp, Unknown PCP - General 11/20/20 04/26/24 Stuart Will NP [address] [facility] [place] [address] [email or web address] PCP - General Nurse Practitioner 7/18/24 documented as of this encounter Additional Source Comments The information contained in this document represents components of the legal health record. It is not the complete legal health record.[facility]
[2025-05-03 08:06] LABS: HIV Num 1 0.05 S/CO (0.00-0.99)
[2025-05-03 09:19] LABS: Lyme Abs Screen <0.90 index
== END 2025-05-02 14:04 | disposition home or self-care (01) ==
LOC: HO.HMGCLDS 14:03
PROVIDERS: PCP Nurse Practitioner Family; Visit Provider Nurse Practitioner Family
DX: Z01.84 Encounter for antibody response examination (principal); R53.83 Other fatigue; R53.1 Weakness; Z11.4 Encounter for screening for human immunodeficiency virus [HIV]; R17 Unspecified jaundice
CPT/HCPCS: 36415; 82247; 82248; 83615; 86015; 86301; 86381; 86617; 86618; 87389

== ENCOUNTER 2025-05-03 11:04 | Outpatient (REF) | payer BC, SELFPAY ==
--- OUTSIDE RECORDS SUMMARY | 2025-04-30 09:45 | XMS_ITS ---
Author Organization [facility] des[facility] [place] Address [address] [place] [address] Care Team Providers Care Jtac Name Role Phone Stuart Lozano Primary Care Provider Unav ailable Black, Marychuy Unavailable [phone] Allergies Allergen (clinical drug ingredient) Drug/Non Drug Allergy documented on EMR Reaction Allergy Type Onset Date Status 12 Hour Nasal [place] Unknown Drug Allergy Active Dust Mites Unknown Allergy Active REASON FOR VISIT Open sore Medications Medication SIG (Take, Route, Frequency, Duration) Notes Start Date End Date Status Aspirin 81 81 MG 1 tablet Orally Once a day Not-Taking [place] 3-6-9 Not-Taki ng Nattokinase 100 MG as [...] Active Vitamin D3 Active Vitamin A Active D66-Cwsijy Active HumaLOG Not-Taking Metaform Not-Taking Venlafaxine HCl [...] Ordered Date Performed Result Body Sit e 00215- Debride <25 sq cm 04/30/2025 N/A Encounters Encounter Location Date Provider Diagnosis [facility] [place] [address] [place] [address] 04/30/2025 Marychuy Black Neuropathic ulcer of right [...] INSTRUCTIONS.pdf) Pending Test Test Name Order Date 94487- Debride <25 sq cm 04/30/2025 Next Appt Details Follow Up: 4 Weeks, Reason: Provider Name:Marychuy Kelley , 05/24/2025 01:45:00 PM, [address] [place] [address], [phone], Provider Name:Marychuy Kelley , 06/28/2025 02:30:00 PM, [address] [place] [address], [phone], Procedure Notes * Category Sub-Category Detail Notes [...] of the wound post debridement is stable (65095) recomm. pt applying more gauze to the tip of the digit and not applying so tight Progress Notes * KENANMARIN Casey KDOB:[birth year] (79 yo M)Acc No.[id number]:04/30/2025 Progress Notes Patient: Casey CRUZ Provider: Karine Kelley DPM :1945 A ge:79 Y S ex:Male Date:04/30/2025 Address:[address] [place], [place] [phone] Pcp:Stuart Will NP-ARIK Subjective: * Chief Complaints: [...] ardiovascular: Pacemaker d enies, d enies. M PATIENT BILLER d enies, d enies. W PW d [...] stic Procedure: [facility] [place] Pressure wound right ankle - saw minerva bonilla [facility] [place]- chest pain 10/[facility] Bl[facility] Scan [facility] [place]- Possible Heart Attack/Stress Anxiety/Covid 07/31[facility] [place] - chest pains 02/02 * Family History: [...] N egative * Medications: T akingVitamin A P41-Spoccz Vitamin D3 Resveratrol Flax Seed Oil Vitamin [...] Once a day Taking Vitamin A Taking R72-Thuwgx Taking Vitamin D3 Taking Resveratrol Taking Flax [...] Release 1 tablet Orally Once a day [place] 3-6-9 Nattokinase 100 MG Capsule as directed [...] tablet Orally Once a day Not- Taking/PRN [place] 3-6-9 Not-Taking/PRN Nattokinase 100 MG Capsule as [...] of the wound post debridement is stable (07034) recomm. pt applying more gauze to the tip of the digit and not applying so tight. * Procedure Codes: 9 7597 ACTIVE WOUND CARE/20 CM OR <, Modifiers: T6 * Follow Up: 4 Weeks * Images: * Sign off status: Completed true * Provider: Karine Kelley DPM Date: 0 04/30/2025 Generated for Alfredo logan/Faxing/eTransmitting on: 0 05/03/2025 11:56 AM EDT History and Physical Notes * [...]
--- OUTSIDE RECORDS SUMMARY | 2025-05-03 11:57 | XMS_ITS | Clinical Summary ---
Author Organization [facility], Address [address] [place] [address] [place] [address] Phone Care Team Providers Care Hair Mixer Name Role Phone Stuart Will NP Primary Care Provider [phone] Allergies Active Allergy Reactions Criticality Noted Date [...] patient's age to complete this topic [place] [address] [place] [address] Care Teams Hair Mixer Relationship Specialty Start Date End Date Stuart Will NP [facility] [place] [address] PCP - General Nurse Practitioner 12/06/20
--- OUTSIDE RECORDS SUMMARY | 2025-05-03 11:57 | XMS_ITS | Clinical Summary ---
Author Organization [facility] Address [address] [place] [address] Phone Care Team Providers Care Financial Compliance Examiner Name Role Phone Stuart Will NP Primary Care Provider [phone] Social History Tobacco Use Types Packs/Day Years Used Date Smoking Tobacco: Never Assessed Sex and Gender Information Value Date Recorded Sex Assigned at Not on file Legal Sex Male 7:48 PM EST Gender Identity Not on file Sexual Orientation Not on file Plan of Treatment Upcoming Encounters Date Type Department Care Team (Late st Contact Info) Description 05/28/2025 3:00 PM EDT Office Visit [address] [facility] [address] [place] [address] Stuart Hernandez MD [address] [place] [address],[address] [address] Health Maintenance Due Date Last Done Comments [...] age to complete this topic Insurance MEDICARE [facility] Care Teams Financial Compliance Examiner Relationship Specialty Start Date End Date Stuart Will NP PCP - General Family Medicine 01/25/25
--- OUTSIDE RECORDS SUMMARY | 2025-05-03 11:57 | XMS_ITS | Encounter Summary ---
Author Organization [facility] Address [address] [place] [address] Phone Care Team Providers Care Experimental Assembler Name Role Phone Pcp, Unknown Primary Care Provider Stuart Carrasco DRIVER TRAINEE Primary Care Provider + Encounter Details Date Type Department Care Team (Late st Contact Info) Description 01/10/2021 Transcribe Orders [facility] [address] [place] [address] [address] [address] Eric [address] [place] [id number] [email or web address] Social History Tobacco Use Types Packs/Day Years [...] on filedocumented in this encounter Care Teams Experimental Assembler Relationship Specialty Start Date End Date Pcp, Unknown PCP - General 11/20/20 04/26/24 Stuart Will NP [address] [place] [place] [address] [email or web address] PCP - General Nurse Practitioner 7/18/24 documented as of this encounter Additional Source Comments The information contained in this document represents components of the legal health record. It is not the complete legal health record.[facility]
--- OUTSIDE RECORDS SUMMARY | 2025-05-03 11:57 | XMS_ITS | Patient Health Record ---
Author Organization [facility] Address [address] [place] [address] Care Team Providers Care Special Education Math Teacher Name Role Phone MARC HERNANDEZ Primary Care Provider Ernesto Beck [phone] Allergies No Known Allergies Reason For Referral [...] day(s) Active Ketoconazole 2 % 1 application Car Escort ally Once a day for 14 day(s) [...] Problem Status W/U Status Risk Notes Problem 086808068 Encounter for screening for malignant neoplasm of colon (Z12.11) Active confirmed Problem 831055491 History of adenomatous polyp of colon (Z86.010) Active confirmed Problem 319128972 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 Problem 769523310062309 Preprocedural examination (Z01.818) Active confirmed Problem 505000574 History of colon cancer (Z85.038) Active confirmed Problem 95921782 Constipation, unspecified constipation type (K59.00) Active confirmed Problem Diverticulosis of colon (899720204) Diverticulosis of colon (K57.30) Active confirmed Problem History of gastrointestinal tract bypass (093686257) Hx of Billroth II operation (Z98.0) Active confirmed Vital Signs Temperature 97.9 degrees Fahrenheit 04/04/2025 Blood pressure diastolic 01 mm Hg 04/04/2025 Height 71.5 in 04/04/2025 Blood pressure systolic 001 mm Hg 04/04/2025 Weight 196 lbs 04/04/2025 BMI 26.95 kg/m2 04/04/2025 Procedures Procedure Date Ordered Date Performed Result Body Sit e COLONOSCOPY 04/04/2025 N/A Encounters Encounter Location Date Provider Diagnosis [facility] [address] [place] [address] 04/04/2025 Ernesto Wu History of adenomato us polyp of colon Z86.010 ; Irritable bowel syndrome K58.9 ; Encounter for screening for malignant neoplasm of colon Z12.11 ; History of colon cancer Z85.038 and Preprocedural examination Z01.818 [facility] [address] [place] [address] 09/12/2024 Ernesto Wu [facility] [address] [place] [address] 10/03/2024 Ernesto Wu [facility] [address] [place] [address] 01/30/2025 Ernesto Wu [facility] [address] [place] [address] 04/05/2025 Ernesto Wu Assessments Encounter Date Diagnosis [...] procedure. He will be seen by his plumber cub prior to the procedure and I did [...] procedure. He will be seen by his plumber cub prior to the procedure and I did [...] procedure. He will be seen by his plumber cub prior to the procedure and I did [...] procedure. He will be seen by his plumber cub prior to the procedure and I did [...] procedure. He will be seen by his plumber cub prior to the procedure and I did [...] Provider Name:Ernesto Wu , 10/01/2025 07:30:00 AM, [address] [place] [address] , [place], [place], [id number], Insurance Providers Payer Name Payer Address Payer Phone Subscriber Number Group Number Insured Name Patient Relationship to Insured Coverage Start Date Coverage End Date [facility] [address] [place], [place] [id number] MELISSA ELDER Self - patient is the insured Medical (General) History Medical History History ICD Code Denies VA,CVA,Lung disease,renal disease IDDM Pulmonary sarcoidosis- inactive Spherocytosis [...] surgery for stones with Jazlyn Liriano at [facility] Right colectomy 09/[address] 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
[2025-05-03 13:45] LABS: Reticulocytes Absolute 0.095 X10*6/uL (0.026-0.095)
[2025-05-05 02:03] LABS: A. Phagocytphilium DNA,RT-PCR NOT DETECTED (NOT DETECTED); Babesia Microti DNA, RT-PCR NOT DETECTED (NOT DETECTED); Borrelia Miyamotoi,DNA RT-PCR NOT DETECTED (NOT DETECTED); E.Chaffeensis DNA RT-PCR NOT DETECTED (NOT DETECTED); Lyme(Borrelia ssp)DNA RT-PCR NOT DETECTED (NOT DETECTED)
== END 2025-05-03 11:05 | disposition home or self-care (01) ==
LOC: HO.HMGCLDS 11:04
PROVIDERS: PCP Nurse Practitioner Family; Visit Provider Nurse Practitioner Family
DX: R53.82 Chronic fatigue, unspecified (principal); R53.1 Weakness; R17 Unspecified jaundice
CPT/HCPCS: 36415; 83010; 85045; 87468; 87469; 87478; 87484; 87798

== ENCOUNTER 2025-05-03 11:31 | Outpatient (AMB) | payer BC, SELFPAY ==
--- NOTE | 2025-05-03 11:55 | MHC.OFFWIV ---
Intake Vital Signs 05/03/25 11:56 Height 5 ft 11 in Weight 192 lb BMI 26.8 BP 104/76 Blood Pressure Location Rt brachial Position Sitting Pulse 79 Pulse Source Pulse Oximeter Temp 98.5 F Temp Source Oral Pulse Oximetry (%) 99 Oxygen Delivery Method Room Air Intake Visit Reasons: EP weakness, lightheadedness Intake Note: pt presents with weakness, lightheadedness and forgetfullness Patient Tobacco Use Status: Never used Tobacco Allergies penicillamine Allergy (Unknown, Verified 05/03/25 12:05) unknown Do you need a note to return to daycare/school/sports/work: No HPI HPI Comments History of Present Illness Details History of Present Illness - The patient is a 79-year-old male presenting with evaluation of fatigue. - He was seen by his PCP on 04/11 and was seen here in the Urgent Care in January for the same complaint. - He has a history of colon cancer, treated with resection of the transverse colon in September 2019. - The patient is concerned about elevated lactate dehydrogenase and CA 19-9 antigen levels, which he associates with cancer risk. - The lactate dehydrogenase level was reported at 515, approximately double the previous measurement of 255. - He has a history of coronary artery disease with severe blockage, although blood flow is not currently impacted. - The patient experiences shortness of breath, which has increased recently, and has had multiple emergency room visits for heart attack symptoms, though troponin levels were normal. - He has a history of diabetic neuropathy and sleep disturbances, which he manages by adjusting his sleeping position. - The patient reports sensitivity to air pollution, which he believes exacerbates his symptoms. - He follows a ketogenic diet and intermittent fasting, having lost 50 pounds over the past year. 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 - He has been sleeping in the day. - He has SRIKANTH and does not use his CPAP machine. Physical Exam General: Cooperative, healthy appearing, comfortable, no acute distress and well developed Head: Normal to inspection Ears: Hearing grossly normal bilaterally Nose: Normal external nose present Eyes: Appearance normal, both eyes and all related structures. No nystagmus noted. Neck: Normal visual inspection and Yes full ROM. No carotid bruits noted. Respiratory: Normal respiratory effort and able to speak in complete sentences. Clear to auscultation bilaterally. No w/r/r noted. Cardiovascular: Regular rate and rhythm. Normal S1 and S2 GI: Normal to inspection. Soft to palpation and nontender Skin: No rashes or lesions noted Neuro: Patient oriented x3 Extremities: Normal to inspection. No edema noted. Patient was informed and verbally consented to the use of an ambient scribe for clinic note documentation during this visit. 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 Vitamin D deficiency Cholecystectomy planned Osteoarthritis History of colon cancer CKD (chronic kidney disease) Sarcoidosis Partial nontraumatic amputation of right foot PVD (peripheral vascular disease) Diabetic retinopathy Spherocytosis Skin cancer Peripheral neuropathy Spinal stenosis Renal stones Pulmonary sarcoidosis Diabetes Surgical History History of amputation of foot History of ureter repair H/O splenectomy S/P ureteral reimplantation History of surgical removal of pilonidal cyst History of tonsillectomy and adenoidectomy H/O right hemicolectomy Status post laser lithotripsy of ureteral calculus Hx of cholecystectomy Hx of colonoscopy Family History Mother Thyroid cancer Other Mental health disorder Social History Household Members: Friend(s) Housing: House Are you a primary rn transitional care to a significant other at home: No Do you presently have visiting nurse or other home services: No Alcohol intake: never Patient Tobacco Use Status: Never used Tobacco e-Cigarette/Vaping Use: Never Used Second Hand Smoke Exposure: No Advance Directives Date on File: 12/02/23 service: No Current occupational status: employed and retired Cognitive needs: No Hearing needs: No Vision needs: No Review of Systems Const All systems reviewed & are unremarkable except as noted in HPI and below Physical Exam Vital Signs: Last Vital Signs Temp 98.5 F 05/03/25 11:56 Pulse 79 05/03/25 11:56 BP 104/76 05/03/25 11:56 Pulse Ox 99 05/03/25 11:56 Oxygen Delivery Method Room Air 05/03/25 11:56 BMI result Body Mass Index 26.8 Assessment & Plan Assessment & Plan (1) Fatigue: Code(s): R53.83 - Other fatigue Qualifiers: Fatigue type: chronic, unspecified Qualified Code(s): R53.82 - Chronic fatigue, unspecified Plan Most likely chronic fatigue due his chronic conditions Reassured the patient that his labs are stable at this time Plan - Reviewed his labs from today that his PCP ordered on 04/11 - Follow up with railroad car cleaner and oncologist regarding elevated cancer markers. - Cardiology consultation scheduled for May 28 to evaluate coronary artery disease and potential interventions. - Maintain regular sleep schedule and avoid air pollution to manage fatigue and shortness of breath. - Continue current dietary regimen and consider increasing protein intake to address fatigue. Coding Level of Care Code Est Pt Level 4 (12874) Diagnoses Chronic fatigue R53.82 Fatigue type: chronic, unspecified
[2025-05-03 11:56] VITALS: BP 104/76; PULSE 79; TEMP 36.9; O2SAT 99; BMI 26.8
== END 2025-05-03 13:21 | disposition home or self-care (01) ==
PROVIDERS: PCP Nurse Practitioner Family; Visit Provider Physician Assistant Medical
DX: R53.82 Chronic fatigue, unspecified (principal)

== ENCOUNTER 2025-05-30 13:25 | Outpatient (REF) | payer BC, SELFPAY ==
--- NOTE | ~2025-05-30 | XR_ITS ---
EXAMINATION: XR BILATERAL HIPS WITH AP PELVIS CLINICAL INFORMATION: M25.551 - Pain in right hip COMPARISON: August 25, 2022 TECHNIQUE: AP view of the pelvis and frog-leg lateral views of each hip were obtained. FINDINGS: There is mild bony prominence involving the anterior superior right femoral head neck junctions. There is minimal axial joint space narrowing of the bilateral hip joints. 2 surgical clips are redemonstrated in the right hemipelvis. No fracture is visualized. XR/XR hips KAIT min 3V IMPRESSION: Mild axial narrowing of both hip joint spaces. 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 Electronically signed by: Luis F Gallagher MD 05/30/2025 03:35 PM EDT
[2025-05-30 18:14] LABS: Cholesterol 146 mg/dL (<200); HDL Cholesterol 33 mg/dL (>40); Triglycerides 133 mg/dL (<150)
== END 2025-05-30 13:26 | disposition home or self-care (01) ==
LOC: HO.HMGCX 13:25
PROVIDERS: PCP Nurse Practitioner Family; Referring Provider Physician Assistant; Visit Provider Nurse Practitioner Family
DX: M54.32 Sciatica, left side (principal); E11.9 Type 2 diabetes mellitus without complications; M25.551 Pain in right hip; M25.552 Pain in left hip
CPT/HCPCS: 36415; 73522; 80061

== ENCOUNTER 2025-05-30 13:25 | Outpatient (AMB) | payer BC, SELFPAY ==
[2025-05-30 13:36] VITALS: BP 100/60; PULSE 72; TEMP 36.6; O2SAT 100; BMI 27.2
--- NOTE | 2025-05-30 13:36 | AM.OFFWIN_ITS ---
Intake Vital Signs 05/30/25 13:36 Height 5 ft 11 in Weight 195 lb BMI 27.2 BP 100/60 Blood Pressure Location Rt brachial Position Sitting Pulse 72 Pulse Source Pulse Oximeter Temp 97.9 F Temp Source Oral Pulse Oximetry (%) 100 Oxygen Delivery Method Room Air Intake Visit Reasons: EP-lt leg pain from fall Intake Note: presents with left leg pain after falling 05/14/25, c/o recurrent left buttock/hip area nerve pain radiating to left knee Patient Tobacco Use Status: Never used Tobacco Allergies penicillamine Allergy (Unknown, Verified 05/30/25 13:38) unknown Do you need a note to return to daycare/school/sports/work: No HPI HPI Comments History of Present Illness Details Patient is a 80yo M with hx of DM who presents with L lower back and leg pain States had mechanical trip and fall on 05/14 No HT or LOC at that time Said post fall he developed L lower back pain radiating into L leg Not seen yet for issue States intermittent pain; worse after waking up in the morning or standing after prolonged sitting Radiates from L glutei to L knee Pain feels sharp No weakness + chronic neuropathy due to diabetes fro m knee inferiorly which he said is baseline Has used walker for 5 years and is stable walking with it even with pain Has tried tylenol without relief No change in bowel habbits/movements and denies any issue with defication or urination No abdominal pain, chest pain or dyspnea PFSH Medical History (Updated 05/30/25 @ 14:07 by Karly Marcial PA-C) Neuropathic ulcer of right foot BPH (benign prostatic hyperplasia) Urethral stricture Left foot drop 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 Vitamin D deficiency Cholecystectomy planned Osteoarthritis History of colon cancer CKD (chronic kidney disease) Sarcoidosis Partial nontraumatic amputation of right foot PVD (peripheral vascular disease) Diabetic retinopathy Spherocytosis Skin cancer Peripheral neuropathy Spinal stenosis Renal stones Pulmonary sarcoidosis Diabetes Surgical History History of amputation of foot History of ureter repair H/O splenectomy S/P ureteral reimplantation History of surgical removal of pilonidal cyst History of tonsillectomy and adenoidectomy H/O right hemicolectomy Status post laser lithotripsy of ureteral calculus Hx of cholecystectomy Hx of colonoscopy Family History Mother Thyroid cancer Other Mental health disorder Social History Household Members: Friend(s) Housing: House Are you a primary child care center assistant director to a significant other at home: No Do you presently have visiting nurse or other home services: No Alcohol intake: never Patient Tobacco Use Status: Never used Tobacco e-Cigarette/Vaping Use: Never Used Second Hand Smoke Exposure: No Advance Directives Date on File: 12/02/23 service: No Current occupational status: employed and retired Cognitive needs: No Hearing needs: No Vision needs: No Review of Systems Const Denies chills, Denies fever(s) and Denies headache(s) Eyes Denies change in vision ENT Denies dizziness and Denies headache(s) Card Denies chest pain, Denies syncope and Denies dyspnea Resp Denies dyspnea GI Denies abdominal pain, Denies constipation and Denies diarrhea Denies urinary incontinence Musc Reports back pain and Reports radiating pain into limb (L leg) Skin/Breast Denies rash, Denies skin swelling and Denies wounds Neuro Denies dizziness, Denies syncope, Denies headache(s) and Reports paresthesias (chronic neuropathy) Physical Exam Exam Exam: General: Non-toxic, NAD. Speaking full sentences. Skin: Warm dry throughout. No lower extremity edema or erythema. Legs symmetrical in size and shape bilaterally Eye: EOMI Respiratory: CTA bilaterally. No wheezes, rales or rhonchi Cardiac: RRR. No murmur. No calf ttp. MSK: No midline spinal ttp. L gluteal tenderness to palpation. Full flexion/extension at knees bilaterally. Negativr LLE SLR sitting. No bony ttp sacrum or L lateral hip joint and illiac crest Neurology: Alert. No aphasia or facial droop. Gait without abnormality using walker Psych: Good mood and affect Vital Signs: Last Vital Signs Temp 97.9 F 05/30/25 13:36 Pulse 72 05/30/25 13:36 BP 100/60 05/30/25 13:36 Pulse Ox 100 05/30/25 13:36 Oxygen Delivery Method Room Air 05/30/25 13:36 BMI result Body Mass Index 27.2 Assessment & Plan Assessment & Plan (1) Sciatica: Code(s): M54.30 - Sciatica, unspecified side Qualifiers: Laterality: left Qualified Code(s): M54.32 - Sciatica, left side Plan: Patient seen and evaluated. Exam consistent with L sided sciatica Discussed warm compress and gentle ROM Robaxin at night; lethargy, no alcohol or driving Walker use F/U with PCP Patient gave verbal understanding and had no additional questions or concerns at time of discharge All questions answered Medications: New methocarbamol lethargy; no alcohol or driving. Can try 1/2 tablet to ensure no dizziness or drowsiness. 500 mg PO BEDTIME 7 tabs 0RF Coding Level of Care Code Est Pt Level 3 (08064) Diagnoses Sciatica of left side M54.32 Laterality: left
--- OUTSIDE RECORDS SUMMARY | 2025-05-30 14:18 | XMS_ITS | Clinical Summary ---
Author Organization [facility] Address [address] [place] [address] Phone Care Team Providers Care Latex Dipper Name Role Phone Marc Will NP Primary Care Provider + [phone] Allergies Active Allergy Reactions Criticality Noted Date Comments Penicillins 05/28/2025 Medications insulin NPH, Isophane, (HumuLIN N) 100 unit/mL injection Inject 15 Units under the skin at bedtime. Vials should be rolled between palms of hands ten times prior to each use. Active dorzolamide-nevaeh loL (COSOPT) 22.3-6.8 mg/mL ophthalmic solution 1 drop 2 (two) times a day. Active latanoprost (XALATAN) 0.005 % ophthalmic solution 1 drop at bedtime. Active ascorbic acid (VITAMIN C) 500 mg CR capsule Take 1 capsule (500 mg total) by mouth 1 (one) time each day. Active B complex tablet Take 1 tablet by mouth 1 (one) time each day. Active mv-mins/folic/ly copene/ginkgo (MENS 50+ DAILY FORMULA,GINGKO, ORAL) Take by mouth. Active MAGNESIUM MALATE, BULK, MISC 100 mg. Active levocarnitine HCl (SDMUFH-S-WCKZUS INE MISC) 500 mg. Active coenzyme Q-10 30 mg capsule Take 15 mg by mouth 1 (one) time each day. Active dihydroberberine (BERBERINE ES-5 ORAL) Take by mouth. Active zinc gluconate 50 mg tablet Take 1 tablet (50 mg total) by mouth 1 (one) time each day. Active cholecalciferol, vitD3,/vit K2 (vitamin D3-vitamin K2) 250 mcg (10,000 unit)-45 mcg capsule Take by mouth. Active aspirin 81 mg EC tablet Take 1 tablet (81 mg total) by mouth 1 (one) time each day. Active vitamin A acetate 3,000 mcg (10,000 unit) tablet, sublingual Place 1,000 mg under the tongue. Active bromelains 500 mg tablet Take by mouth. Active vitamin E acetate (VITAMIN E ORAL) Take 268 mg by mouth. Active TURMERIC ORAL Take 500 mg by mouth. Active ivermectin (STROMECTOL) 3 mg tablet Take 1 tablet (3 mg total) by mouth if needed (1 tabletg as needed). Active atorvastatin (LIPITOR) 40 mg tabletIndication s:Coronary artery disease involving [place] coronary artery of [place] heart, unspecified whether angina present Take 1 tablet (40 mg total) by mouth 1 (one) time each day. 30 each 11 05/28/2025 05/28/20 26 Active Active Problems Problem Noted Date Diagnosed Date SOB (shortness of breath) 05/21/2025 Other chest pain 05/21/2025 Assessment & Plan (05/28/2025 6:18 PM EDT): This pleasant 79-year-old man has evidence of severe coronary artery calcification on chest CT scanning earlier this year. He has had 3 episodes of chest tightness with exertion with concerning features for coronary insufficiency. He has successfully lost significant weight and changed his diet with favorable results. Coincident to his weight loss he has had resolution of chest discomfort. He has been disinclined to take statin medications after doing research on the Internet. Given his symptoms suggesting angina and his extensive coronary calcification I have recommended that he initiate therapy with moderate intensity atorvastatin and I have prescribed 40 mg daily. I have recommended that he coordinate ongoing lipid management with his primary care provider. Goal for LDL cholesterol is less than 70 mg/dL. The patient informs me that his baseline levels are not particularly high but I do not have access to the actual values at this time. Orders: Ambulatory referral to Cardiology PVD (peripheral vascular disease) ([facility] V24) 05/21/2025 Encounters Date Type Department Care Team Description 05/28/2025 3:00 PM EDT Office Visit [facility] [address] [place] [address] Marc Hernandez MD SOB (shortness of breath) (Primary Dx); Other chest pain; Coronary artery disease involving [place] coronary artery of [place] heart, unspecified whether angina present from Last 3 Months Medical History Medical History Date Comments BPH (benign prostatic hyperplasia) Urethral stricture Left foot drop Necrosis of right ureter Vitamin D deficiency Osteoarthritis Colon cancer (CMS/HCC V24, CMS/HCC V28) CKD (chronic kidney disease) Sarcoidosis Social History Tobacco Use Types Packs/Day Years Used Date Smoking Tobacco: Never Smokeless Tobacco: Never Tobacco Cessation:Counseling Given: Not Answered Alcohol Use Standard Drinks/Week Comments Never 0 (1 standard drink = 0.6 oz pur e alcohol) Sex and Gender Information Value Date Recorded Sex Assigned at Not on file Legal Sex Male 7:48 PM EST Gender Identity Not on file Sexual Orientation Not on file Obstetrics History Last Filed Vital Signs Vital Sign Reading Time Taken Comments Blood Pressure 116/72 05/28/2025 2:51 PM EDT Pulse 73 05/28/2025 2:51 PM EDT Temperature - - Respiratory Rate - - Oxygen Saturation 98% 05/28/2025 2:51 PM EDT Inhaled Oxygen Concentration - - Weight 88.5 kg (195 lb) 05/28/2025 2:51 PM EDT Height 180.3 cm (5' 11 ) 05/28/2025 2:51 PM EDT Body Mass Index 27.2 05/28/2025 2:51 PM EDT Plan of Treatment Health Maintenance Due Date Last Done Comments Diabetes: Annual GFR (Glomerular Filtration Rate) 1945 HIB Vaccines (1 of 1 - Risk 1-dose series) 08[birth year]30/1946 Meningococcal ACWY Vaccine (1 - Risk 2-dose series) 1948 Diabetes: Annual Foot Exam 1956 Diabetes: Annual Retina Eye Exam 1956 Meningococcal B Vaccine (1 of 5 - Increased Risk) 1956 Zoster Vaccines (1 of 2) 1996 RSV Immunization Adult Patients (1 - 1-dose 75+ series) 2021 COVID-19 Vaccine ( - 2023- season) 2024 Depression Screening 10/11/2024 Cholesterol Screening (Lipid Panel) 01/18/2025 Falls Risk Assessment 01/18/2025 Hepatitis C Screening 01/18/2025 Social Influencers of Health Screening 01/18/2025 Diabetes: Annual Urine Albumin-Creatinine Ratio (uACR) 05/28/2025 Diabetes: Blood Sugar Control Test (HGBA1C) 05/28/2025 Hypertension/CHF/CAD Annual BMP Blood Test 05/28/2025 Influenza Vaccine (#1) 2025 09/19/2018 DTaP,Tdap,and Td Vaccines (3 - Td or Tdap) 11/30/2033 11/30/2023, 11/11/2018 Pneumococcal Vaccine: 50+ Years Completed 02/10/2019, 11/11/2018, 12/27/2017, Additional history exists HPV Vaccines Aged Out No longer eligi [...] to complete this topic RSV Immunization Patients Under 20 months Aged Out No longer eligible based on patient's age to complete this topic Varicella Vaccines Aged Out No longer eligible based on patient's age to complete this topic Procedures Procedure Name Priority Date/Time Associated Diagnosis Comments ECG 12-LEAD Routine 05/28/2025 3:16 PM EDT SOB (shortness of breath) from Last 3 Months Results * ECG 12 lead (05/28/2025 3:16 PM EDT) Ventricular Rate ECG 73 BPM GEMUSE Atrial Rate 73 BPM GEMUSE P-R Interval 168 ms GEMUSE QRS Duration 82 ms GEMUSE Q-T Interval 396 ms GEMUSE QTc 436 ms GEMUSE P Wave [place] 52 degrees GEMUSE R [place] -25 degrees GEMUSE ECG Interpretation Sinus rhythm with Premature atrial complexes Otherwise normal ECG When compared with ECG of 23-MAR-2001 18:57, Premature atrial complexes are now Present Criteria for Inferior infarct are no longer Present Confirmed by MD ELISSA, MARC ([id number]) on 05/28/2025 5:39:54 PM GEMUSE 05/28/2025 3:16 PM EDT 05/28/2025 5:39 PM EDT us Marc Hernandez MD ECG ORDERABLES Final Result GEMUSE from Last 3 Months Insurance MEDICARE [facility] Care Teams Latex Dipper Relationship Specialty Start Date End Date Marc Will NP [address] [place] [address] PCP - General Family Medicine 05/28/25
--- OUTSIDE RECORDS SUMMARY | 2025-05-30 14:19 | XMS_ITS | Patient Health Record ---
Author Organization [facility] Address [address] [place] [address] Care Team Providers Care Drop Tester Name Role Phone MARC HERNANDEZ Primary Care Provider Ernesto Beck [phone] Allergies No Known Allergies Reason For Referral [...] day(s) Active Ketoconazole 2 % 1 application Drip Molder ally Once a day for 14 day(s) [...] Problem Status W/U Status Risk Notes Problem 289786446 Encounter for screening for malignant neoplasm of colon (Z12.11) Active confirmed Problem 994664642 History of adenomatous polyp of colon (Z86.010) Active confirmed Problem 573398110 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 Problem 711716465911854 Preprocedural examination (Z01.818) Active confirmed Problem 172279385 History of colon cancer (Z85.038) Active confirmed Problem 91879327 Constipation, unspecified constipation type (K59.00) Active confirmed Problem Diverticulosis of colon (527457665) Diverticulosis of colon (K57.30) Active confirmed Problem History of gastrointestinal tract bypass (596283442) Hx of Billroth II operation (Z98.0) Active confirmed Vital Signs Temperature 97.9 degrees Fahrenheit 04/04/2025 Blood pressure diastolic 01 mm Hg 04/04/2025 Height 71.5 in 04/04/2025 Blood pressure systolic 001 mm Hg 04/04/2025 Weight 196 lbs 04/04/2025 BMI 26.95 kg/m2 04/04/2025 Procedures Procedure Date Ordered Date Performed Result Body Sit e COLONOSCOPY 04/04/2025 N/A Encounters Encounter Location Date Provider Diagnosis [facility] [address] [place] [address] 04/04/2025 Ernesto Wu History of adenomato us polyp of colon Z86.010 ; Irritable bowel syndrome K58.9 ; Encounter for screening for malignant neoplasm of colon Z12.11 ; History of colon cancer Z85.038 and Preprocedural examination Z01.818 [facility] [address] [place] [phone] 09/12/[address] [facility] [address] [place] [phone] 10/03/[address] [facility] [address] [place] [phone] 01/30/[address] [facility] [address] [place] [phone] 04/05/[address] [facility] [address] [place] [phone] 05/07/2025 Ernesto Wu Assessments Encounter Date Diagnosis (ICD [...] procedure. He will be seen by his consumer loan processor prior to the procedure and I did [...] procedure. He will be seen by his consumer loan processor prior to the procedure and I did [...] procedure. He will be seen by his consumer loan processor prior to the procedure and I did [...] procedure. He will be seen by his consumer loan processor prior to the procedure and I did [...] procedure. He will be seen by his consumer loan processor prior to the procedure and I did [...] Provider Name:Ernesto Wu , 10/01/2025 07:30:00 AM, [address] [place] [address], [phone], Insurance Providers Payer Name Payer Address Payer Phone Subscriber Number Group Number Insured Name Patient Relationship to Insured Coverage Start Date Coverage End Date [facility] [address] [place], [place] [id number] MELISSA ELDER Self - patient is the insured Medical (General) History Medical History History ICD Code Denies MT,CVA,Lung disease,renal disease IDDM Pulmonary sarcoidosis- inactive Spherocytosis [...]
--- OUTSIDE RECORDS SUMMARY | 2025-05-30 14:19 | XMS_ITS | Patient Health Record ---
Author Organization [facility] Address [address] [place] [address] Care Team Providers Care Shop Cooper Name Role Phone Stuart Lozano Primary Care Provider Unav ailable Black, Marychuy Unavailable [phone] Allergies Allergen (clinical drug ingredient) Drug/Non Drug Allergy documented on EMR Reaction Allergy Type Onset Date Status 12 Hour Nasal [place] Unknown Drug Allergy Active Dust Mites Unknown Allergy Active Results Component Value Reference Range Notes HEMOGLOBIN A1C (GLYCOHEMOGLO BIN) Reviewed date:11/23/2024 02:15:55 PM Interpretation: Performing Lab: Notes/Report: HEMOGLOBIN A1C % (HH) 5.2 Reason For Referral No Information Medications Medication SIG (Take, Route, Frequency, Duration) Notes Start Date End Date Status Antibacterial Alginate w/Silv 4.25 X4.25 as directed Externally 05/24/2025 Active Ciprofloxacin HCl 500 MG 1 tablet Orally every 12 hrs; Duration: 7 days 2025 Active [place] 3-6-9 Not-Taki ng Nattokinase 100 MG as directed Orally Not-Taking Vitamin B Complex - as directed Orally Active Venlafaxine HCl Not- Taking Berberine HCI 500 MG as directed Orally Active Atenolol Not-Taking Vitamin D Active Vitamin E Not-Taking HumuLIN N Active HumaLOG Not-Taking Multivitamins Not-Ta Vitamin D3 Active Ascorbic Acid Not-Ta Resveratrol Active Vitamin C & E Complex Not-Taking Flax Seed Oil Active Prevnar 13 Not-Takin g Doxycycline Monohydrate 100 MG 1 capsule Orally Twice a day; Duration: 10 days 05/24/2025 Active Extra Depth Orthopedic Shoes (1 Pair) with Customized Heat Molded Multidensity Innersoles (3 Pair) as directed Dx: IDDM/Polyneuropathy (E10.42), Hammertoe Foot Deformity (M20.41,M20.42), Preulcerative Skin Lesion(s) (L85.1) 06/02/2018 Not-Taking Zinc Active Metaform Not-Taking Vitamin C 500 MG as directed Orally O nce a day Active Turmeric Active Lovastatin Not-Takin g Magnesium Not-Taking Flax Seeds - as directed Orally Not-Taking Aspirin 81 81 MG 1 tablet Orally Once a day Not-Taking G30-Ixpmfq Active AFO-Hinged as directed Wear Juli ly; Duration: as needed 09/08/2021 Active Ammonium Lactate 12 % 1 application Exte rnally to affected areas of dry skin to feet except for between the toes Twice a day; Duration: 30 days Active Aspirin 81 MG 1 tablet Orally Once a day; Duration: 30 day(s) Active Timolol Maleate PF N ot-Taking Keflex Not-Taking Vitamin A Active Immunizations Vaccine Route Administration Date Status [...] Pt declined flu shot Eye exam, Dr Tucekr Pt declined flu shot Eye exam, Dr Lopez Pt declined flu shot Eye exam, Dr Tucker Pt declined flu shot Eye exam, Dr Tucker Pt declined flu shot Eye exam, Dr Tucker Pt declined flu shot Eye exam, Dr Tucker Pt declined flu shot Eye exam, Dr Tucker Pt declined flu shot Eye exam, Dr Tucker-08/2015 Pt declined flu shot Eye exam, Dr Tucker-08/2015 Pt declined flu shot Eye exam, Dr Tucker-08/2015 Pt declined flu shot Problems Problem Type SNOMED Code ICD Code Onset Dates Problem Status W/U Status Risk Notes Problem Polyneuropathy due to diabetes mellitus type I (026620121) 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 Vital Signs Blood pressure diastolic 70 mm Hg 05/24/2025 Height 5ft 11in in 05/24/2025 Blood pressure systolic 112 mm Hg 05/24/2025 Weight 196 lbs 05/24/2025 BMI 27.33 kg/m2 05/24/2025 Procedures Procedure Date Ordered Date Performed Result Body Sit e 61203-ISRFOBP NAIL, 1-5 08/17/2024 N/A 13656-Qefuuvwb Plate 08/17/2024 N/A 44207-Umdvwxou Plate Each Additional 08/17/2024 N/A 30996-QTCN SKIN LESIONS, OVER 4 08/17/2024 N/A 98730-TRFYVQP NAIL, 6 OR MORE 11/23/2024 N/A 55524-JTHH SKIN LESIONS, OVER 4 11/23/2024 N/A 99762-KPBGWGA NAIL, 6 OR MORE 03/15/2025 N/A 43711- Debride <25 sq cm 03/15/2025 N/A 90194-HQRP SKIN LESIONS, OVER 4 03/15/2025 N/A 53577- Debride <25 sq cm 04/02/2025 N/A 67217- Debride <25 sq cm 04/30/2025 N/A 26129-CRDHJIY NAIL, 6 OR MORE 05/24/2025 N/A 95979 I&D ABSCESS- SIMPLE,SINGLE 05/24/2025 N/A 66483-LUDA SKIN LESIONS, OVER 4 05/24/2025 N/A Encounters Encounter Location Date Provider Diagnosis [facility] [place] [address] [place] [address] 08/17/2024 Marychuy Black Type 1 diabetes mellitus with diabetic polyneuropathy E10.42 ; Tinea unguium B35.1 ; Ingrown nail L60.0 and Skin ulcer of toe of left foot, limited to breakdown of skin L97.[address] [address] 11/23/2024 Marychuy Black Type 1 diabetes mellitus with diabetic polyneuropathy E10.42 ; Xerosis of skin L85.3 and Tinea unguium B35.[address] [address] 03/15/2025 Marychuy Black Type 1 diabetes mellitus with diabetic polyneuropathy E10.42 ; Xerosis of skin L85.3 ; Tinea unguium B35.1 and Skin ulcer of toe of right foot, limited to breakdown of skin L97.[address] [address] 04/02/2025 Marychuy Black Neuropathic ulcer of right foot, limited to breakdown of skin L97.511 and Type 1 diabetes mellitus with diabetic polyneuropathy E10.[address] [address] 04/30/2025 Marychuy Black Neuropathic ulcer of right foot, limited to breakdown of skin L97.511 and Type 1 diabetes mellitus with diabetic polyneuropathy E10.[address] [address] 05/24/2025 Marychuy Black Type 1 diabetes mellitus with diabetic polyneuropathy E10.42 ; Cellulitis of right toe L03.031 ; Tinea unguium B35.1 and Cutaneous abscess of right foot L02.[address] [address] 08/22/2024 Marychuy Black [facility] [address] [address] 11/23/2024 Marychuy Black [facility] [address] 04/30/2025 Marychuy Black [facility] [address] 05/01/2025 Marychuy Black [address] [address] 05/24/2025 Marychuy Black [facility] [place] [address] [place] [address] 05/28/2025 Marychuy Kelley Cellulitis of right toe L03.031 Assessments Encounter Date Diagnosis (ICD Code) Assessment Notes Treatment Notes Treatment Clinical Notes Section Notes 08/17/2024 Tinea unguium (ICD-10 - B35.1) 08/17/2024 [...] mellitus with diabetic polyneuropathy (ICD-10 - E10.42) 04/30/2025 Neuropathic ulcer of right foot, limited to breakdown of skin (ICD-10 - L97.511) Response to treatment - Unchanged Patient Educated with: WOUND CARE INSTRUCTIONS. pdf (WOUND CARE INSTRUCTIONS. pdf) 05/24/2025 Cellulitis of right toe (ICD-10 - L03.031) 05/24/2025 Type 1 diabetes mellitus with diabetic polyneuropathy (ICD-10 - E10.42) 05/28/2025 Cellulitis of right toe (ICD-10 - L03.031) 11/23/2024 Tinea unguium (ICD-10 - B35.1) 04/02/2025 Type 1 diabetes mellitus with diabetic polyneuropathy (ICD-10 - E10.42) 05/24/2025 Tinea unguium (ICD-10 - B35.1) 03/15/2025 Tinea unguium (ICD-10 - B35.1) 08/17/2024 Ingrown nail (ICD-10 - L60.0) 08/17/2024 Skin ulcer of toe of left foot, limited to breakdown of skin (ICD-10 - L97.521) 03/15/2025 Skin ulcer of toe of right foot, limited to breakdown of skin (ICD-10 - L97.511) 05/24/2025 Cutaneous abscess of right foot (ICD-10 - L02.611) Plan Of Treatment Pending Test Test Name Order Date Hemoglobin A1c 12/02/2015 60728-ZNQAZKN NAIL, 6 OR MORE 05/24/2025 61632-EBYQRER NAIL, 6 OR MORE 11/23/2024 30648-PZNDCBY NAIL, 6 OR MORE 07/08/2023 78844-UAUQCYI NAIL, 6 OR MORE 10/21/2023 89880-IOCNUHQ NAIL, 6 OR MORE 05/11/2024 49962-IOSSBHQ NAIL, 6 OR MORE 03/15/2025 17344-YZOKUVR NAIL, 6 OR MORE 12/02/2020 64407-DHYAXGU NAIL, 6 OR MORE 03/13/2021 51547-RCQKPJG NAIL, 6 OR MORE 06/09/2021 68951-RUPNSCA NAIL, 6 OR MORE 09/08/2021 82132-SOOPOBF NAIL, 6 OR MORE 01/30/2022 44055-IGZXWHE NAIL, 6 OR MORE 06/22/2022 73490-IVAOMUF NAIL, 6 OR MORE 09/28/2022 55003-MGHNQPI NAIL, 6 OR MORE 12/28/2022 96413-GARAIVV NAIL, 6 OR MORE 04/05/2023 21462-TUAJDMM NAIL, 6 OR MORE 10/01/2011 31804-EUFACXC NAIL, 6 OR MORE 12/03/2011 85885-IAWATTF NAIL, 6 OR MORE 03/03/2012 84398-QLEUXIP NAIL, 6 OR MORE 06/02/2012 63805-FDPIRWA NAIL, 6 OR MORE 11/03/2012 39276-UFASTTW NAIL, 6 OR MORE 01/23/2013 74851-PQVXNKT NAIL, 6 OR MORE 04/03/2013 13510-MULUTRB NAIL, 6 OR MORE 06/28/2013 17039-HVDEHJE NAIL, 6 OR MORE 09/13/2013 16591-XWNBURS NAIL, 6 OR MORE 12/13/2013 25688-HUAJOLA NAIL, 6 OR MORE 03/22/2014 87614-AXKTBQR NAIL, 6 OR MORE 06/21/2014 67518-LIHVBHP NAIL, 6 OR MORE 09/20/2014 82645-YPIVEGO NAIL, 6 OR MORE 12/06/2014 19034-YAQFRHZ NAIL, 6 OR MORE 02/21/2015 46479-VSQSGRC NAIL, 6 OR MORE 05/13/2015 82181-GLKSQAA NAIL, 6 OR MORE 09/09/2015 57156-UBTMWMX NAIL, 6 OR MORE 12/02/2015 69081-SQHSTRL NAIL, 6 OR MORE 02/24/2016 76817-OQRIKQD NAIL, 6 OR MORE 06/01/2016 26465-YEJJTHG NAIL, 6 OR MORE 08/27/2016 12260-RATXIWE NAIL, 6 OR MORE 12/07/2016 29999-MXJRMWZ NAIL, 6 OR MORE 03/11/2017 88012-JMECVJM NAIL, 6 OR MORE 06/24/2017 04612-BPVWGTE NAIL, 6 OR MORE 09/27/2017 86879-EMZJMEH NAIL, 6 OR MORE 12/27/2017 89588-QAQYPVF NAIL, 6 OR MORE 06/02/2018 45215-XNIYJFR NAIL, 6 OR MORE 08/25/2018 35408-QXQPIIJ NAIL, 6 OR MORE 11/24/2018 17152-JKFYHUF NAIL, 6 OR MORE 03/09/2019 07086-XFLIMGS NAIL, 6 OR MORE 06/05/2019 15577-JLDCPHW NAIL, 6 OR MORE 09/18/2019 20258-IEREEUK NAIL, 6 OR MORE 03/11/2020 05167-OBSSZTO NAIL, 6 OR MORE 06/13/2020 85682-LFAHGZR NAIL, 6 OR MORE 09/23/2020 66190-PUWFUAW NAIL, 1-5 08/17/2024 85117-CLJJYIV NAIL, 1-5 01/20/2024 73845-Xaib Destruction, -14 09/08/2021 58219-Woob Destruction, -06/09/2021 06960-Bhxo Destruction, -14 03/11/2020 76685-Zqov Destruction, -14 06/05/2019 73539-Ulgz Destruction, -14 09/18/2019 42147-Hptv Destruction, -03/09/2019 29511-Nhve Destruction, -05/13/2015 78300-Tucd Destruction, 10-2402/21/2015 83602-Lqlq Destruction, 10-2412/06/2014 72170-Hycs Destruction, 10-2409/20/2014 06886-Koqc Destruction, 10-2406/21/2014 14872-Doke Destruction, 10-2403/22/2014 08300-Rgkd Destruction, 10-2412/13/2013 74763-Cvuy Destruction, 10-2409/13/2013 78331-Cwjh Destruction, 10-2406/28/2013 06410-Linw Destruction, 10-2404/03/2013 90962-Whdj Destruction, 10-2401/23/2013 14799-Adce Destruction, 10-2411/03/2012 72153-Jozm Destruction, 10-2406/02/2012 99140-Rdfe Destruction, 10-2410/01/2011 06890-Wjmq Destruction, 10-2403/03/2012 52602-Pqea Destruction, 10-2412/03/2011 91147-Zlxmnlai Plate 03/03/2012 79000-Mgpxanui Plate 12/03/2011 48159-Upwoqmxr Plate 06/02/2012 77718-Bowwtdzo Plate 01/23/2013 96171-Ityrumwh Plate 04/03/2013 19569-Gxieafrq Plate 06/28/2013 26962-Xnqglktf Plate 09/13/2013 47061-Jldfvmxs Plate 12/13/2013 63439-Dbmsuufu Plate 03/22/2014 55359-Fxsogmcj Plate 06/21/2014 28838-Wrgoskal Plate 09/20/2014 55626-Ywcunouf Plate 12/06/2014 66964-Zsgowfba Plate 02/21/2015 17554-Lgjsiyjs Plate 05/13/2015 25677-Yjwsxark Plate 12/27/2017 06772-Fvpgpesm Plate 06/05/2019 40973-Eyvnvutp Plate 11/24/2018 30394-Vyjzwfie Plate 03/09/2019 50503-Yzxptqzq Plate 08/25/2018 24107-Otjyxsym Plate 09/18/2019 80369-Kvlasjvj Plate 03/11/2020 78217-Rvhqtpst Plate 09/27/2017 42549-Yeaegkwj Plate 12/07/2016 52887-Lkljtbgq Plate 08/27/2016 80091-Vqqejqea Plate 06/01/2016 69246-Yxcghxpv Plate 02/24/2016 52714-Fnfvlrjt Plate 12/02/2015 77970-Irymqzai Plate 11/03/2012 67560-Xatynkkz Plate 09/09/2015 34459-Blqbdyyw Plate 06/09/2021 53129-Qtbqfxva Plate 06/13/2020 14328-Dsmpuili Plate 09/08/2021 90703-Sunsnmdn Plate 03/13/2021 98377-Ksemutxu Plate 09/23/2020 54937-Xfggmsth Plate 01/30/2022 76971-Vxbldecf Plate 06/22/2022 60739-Ztwkftnl Plate 01/20/2024 76333-Yvsfjtnk Plate 08/17/2024 44470-Kxxbatui Plate Each Additional 09/2022 09030-Yrqpkshm Plate Each Additional 04/2024 64104-Roibrxvh Plate Each Additional 58901-Dneduqei Plate Each Additional 26107-Enknyggq Plate Each Additional 12/2020 45293-Dpfudqdu Plate Each Additional 27064-Vnktoqza Plate Each Additional 53594-Bjjgxniy Plate Each Additional 02763-Bckpuiai Plate Each Additional 03128-Vydrixzz Plate Each Additional 65275-Uoeoiveg Plate Each Additional 35044-Fvyjciku Plate Each Additional 43382-Qbhhkkux Plate Each Additional 39093-Dlplrwkr Plate Each Additional 11511-Kxzxzipy Plate Each Additional 06/2019 62501-Mqhiuaxu Plate Each Additional 10/2019 06727-Lhsjxbon Plate Each Additional 69987-Iwsqcvhy Plate Each Additional 99021-Vupodpec Plate Each Additional 68716-Skrtddbx Plate Each Additional 12/2014 08916-Jjsnygla Plate Each Additional 17820-Szylyyts Plate Each Additional 04966-Tmxxbemq Plate Each Additional 08/2014 82287-Isftfoaf Plate Each Additional 08/2014 46184-Feqxtbon Plate Each Additional 09/2014 22769-Mviyqgjr Plate Each Additional 02/2014 15824-Mxgxatrf Plate Each Additional 01/2013 70670-Ybckpdpb Plate Each Additional 74048-Xsfvxddl Plate Each Additional 29218-Onkstkrw Plate Each Additional 28123-Kkecvrdy Plate Each Additional 84245-Bfdmnnzs Plate Each Additional 48027- Debride <25 sq cm 06/13/2020 25718- Debride <25 sq cm 04/05/2023 77231- Debride <25 sq cm 03/15/2025 86816- Debride <25 sq cm 04/02/2025 04555- Debride <25 sq cm 04/30/2025 03152 I&D ABSCESS- SIMPLE,SINGLE 025 82877 I&D ABSCESS- SIMPLE,SINGLE 013 84529 I&D ABSCESS- SIMPLE,SINGLE 013 78739-MYJE SKIN LESIONS, OVER 4 01/24/20 13 63363-GMQF SKIN LESIONS, OVER 4 11/03/19 13 37894-XFGK SKIN LESIONS, OVER 4 04/03/20 13 84755-QQKC SKIN LESIONS, OVER 4 06/28/20 13 75733-RSCF SKIN LESIONS, OVER 4 09/13/20 13 10679-FTOP SKIN LESIONS, OVER 4 12/14/19 14 49257-FKRX SKIN LESIONS, OVER 4 03/22/20 14 45488-MAID SKIN LESIONS, OVER 4 06/21/20 14 40822-PDFF SKIN LESIONS, OVER 4 09/20/20 14 20927-YXQQ SKIN LESIONS, OVER 4 12/06/19 15 53246-WLHO SKIN LESIONS, OVER 4 02/22/20 15 85582-SCKV SKIN LESIONS, OVER 4 05/13/20 15 12674-QNUO SKIN LESIONS, OVER 4 06/13/20 20 97899-LKUK SKIN LESIONS, OVER 4 09/23/20 20 33336-DDJL SKIN LESIONS, OVER 4 03/11/20 20 07649-WGMW SKIN LESIONS, OVER 4 09/18/20 19 17587-HOLX SKIN LESIONS, OVER 4 03/09/20 19 34321-HSBR SKIN LESIONS, OVER 4 06/05/20 19 99290-VDCY SKIN LESIONS, OVER 4 11/24/19 19 83476-EQFO SKIN LESIONS, OVER 4 08/25/20 18 59802-ELXL SKIN LESIONS, OVER 4 12/28/19 18 90349-UMGA SKIN LESIONS, OVER 4 06/02/20 18 60911-ASQV SKIN LESIONS, OVER 4 09/27/20 17 35445-LRDU SKIN LESIONS, OVER 4 06/24/20 17 12031-NHTD SKIN LESIONS, OVER 4 12/07/19 17 34223-SAUU SKIN LESIONS, OVER 4 03/11/20 17 85266-DHYB SKIN LESIONS, OVER 4 08/27/20 16 52408-ODNP SKIN LESIONS, OVER 4 06/01/20 16 25057-IDJA SKIN LESIONS, OVER 4 02/24/20 16 36266-PFAK SKIN LESIONS, OVER 4 12/02/19 16 79034-LPAT SKIN LESIONS, OVER 4 09/09/20 15 00835-PNFT SKIN LESIONS, OVER 4 03/15/20 25 78411-XLMS SKIN LESIONS, OVER 4 05/24/20 25 39403-AJNC SKIN LESIONS, OVER 4 08/17/20 24 56829-HCKT SKIN LESIONS, OVER 4 11/23/19 25 12755-JJEG SKIN LESIONS, OVER 4 05/11/20 24 83020-RFZW SKIN LESIONS, OVER 4 01/20/20 24 67577-MKCR SKIN LESIONS, OVER 4 10/21/19 24 67717-VBCA SKIN LESIONS, OVER 4 04/05/20 23 01582-CWLZ SKIN LESIONS, OVER 4 07/08/20 23 64044-VTTR SKIN LESIONS, OVER 4 12/29/19 23 75318-OIIU SKIN LESIONS, OVER 4 09/28/20 22 35218-UHDT SKIN LESIONS, OVER 4 06/22/20 22 54745-EQPZ SKIN LESIONS, OVER 4 01/31/20 22 56730-JJHC SKIN LESIONS, OVER 4 09/08/20 21 76699-YXVT SKIN LESIONS, OVER 4 06/09/20 21 36073-HRGJ SKIN LESIONS, OVER 4 12/02/19 21 29347-DVGI SKIN LESIONS, OVER 4 03/13/20 21 48978-PTIV SKIN LESIONS, 2 TO 4 06/02/20 12 28246-ENVF SKIN LESIONS, 2 TO 4 03/03/20 12 52458-IHLJ SKIN LESIONS, 2 TO 4 12/03/19 12 56841-EZPT SKIN LESIONS, 2 TO 4 10/01/20 11 Next Appt Details Provider Name:Marychuy Kelley , 06/07/2025 08:00:00 AM, [address] [place], [address], Provider Name:Marychuy Kelley , 06/28/2025 02:30:00 PM, [address] [place], [address], Insurance Providers Payer Name Payer Address Payer Phone Subscriber Number Group Number Insured Name Patient Relationship to Insured Coverage Start Date Coverage End Date [facility] [address] [place] [address] [phone] [id number] Casey Ulrich Self - patient is the [...] kidney disease 04/2020 Hospitalization History Reason Date(Month/[place] [facility] [place] [facility] [place] Heart Attack/Stress Anxiet y/Covid 07/31 [facility]- Bladder [facility] [place] [facility] [place]- [place] [facility] [place] right ankle - saw md ra[facility]h [facility]- chest pain 10/2015
--- OUTSIDE RECORDS SUMMARY | 2025-05-30 14:19 | XMS_ITS | Clinical Summary ---
Author Organization [facility], Address [address] [place] [address] [place] [address] Phone Care Team Providers Care Sand Miller Name Role Phone Stuart Will NP Primary Care Provider [phone] Allergies Active Allergy Reactions Criticality Noted Date [...] patient's age to complete this topic [place] [address] [place] [address] Care Teams Sand Miller Relationship Specialty Start Date End Date Stuart Will NP [facility] [place] [address] PCP - General Nurse Practitioner 12/06/20
--- OUTSIDE RECORDS SUMMARY | 2025-05-30 14:19 | XMS_ITS | Encounter Summary ---
Author Organization [facility] Address [address] [place] [address] Phone Care Team Providers Care Plastics Nurse Name Role Phone Pcp, Unknown Primary Care Provider Stuart Carrasco [employer] Primary Care Provider + Encounter Details Date Type Department Care Team (Late st Contact Info) Description 01/10/2021 Transcribe Orders [facility] [address] [address] [address] [place] [id number] [email or web address] History Tobacco Use Types Packs/Day [...] on filedocumented in this encounter Care Teams Plastics Nurse Relationship Specialty Start Date End Date Pcp, Unknown PCP - General 11/20/20 04/26/24 Stuart Will NP [address] [place] [address] PCP - General Nurse Practitioner 04/27/24 documented as of this encounter Additional Source Comments The information contained in this document represents components of the legal health record. It is not the complete legal health record.[facility]
== END 2025-05-30 15:08 | disposition home or self-care (01) ==
PROVIDERS: PCP Nurse Practitioner Family; Visit Provider Physician Assistant
DX: M54.32 Sciatica, left side (principal)

== ENCOUNTER → 2025-05-30 14:16 | Outpatient (BNV) | payer BC, SELFPAY | PROVIDERS: PCP Nurse Practitioner Family; Referring Provider Physician Assistant; Visit Provider Radiology Diagnostic Radiology | DX: M16.0 Bilateral primary osteoarthritis of hip (principal) | CPT/HCPCS: 73522 ==

== ENCOUNTER 2025-06-07 13:16 | Emergency (ER) | payer BC, SELFPAY ==
--- OUTSIDE RECORDS SUMMARY | 2024-06-21 06:30 | XMS_ITS ---
Author Organization [facility] Address [address] [place] [address] Care Team Providers Care Cementer Name Role Phone MARC HERNANDEZ Primary Care Provider Ernesto Beck [phone] REASON FOR VISIT screening, hx polyps,hx colon ca Encounters Encounter Location Date Provider Diagnosis [facility] Out[facility] [address] [place] [id number] 06/21/2024 Ernesto Wu Plan Of Treatment Next Appt Details Provider Name:Ernesto Wu , 10/01/2025 07:30:00 AM, [address] [place] [address], [phone], Progress Notes * GILBERTMELISSA KDOB:[birth year] (80 yo M)Acc No.[id number]:06/21/2024 COLON WITH MAC Patient: MELISSA CRUZ Provider: Sheba Wu MD :1945 A ge:79 Y S ex:Male Date:06/21/2024 Address:[address] [place], [place] [phone] Pcp:MARC HERNANDEZ Subjective: * Chief Complaints: * [...] 06/21/2024 Generated for Alfredo logan/Lila/Zo on: 0 06/07/2025 05:17 PM EDT
--- OUTSIDE RECORDS SUMMARY | 2024-10-09 03:30 | XMS_ITS ---
Author Organization [facility] Address [address] [place] [address] Care Team Providers Care Supervisor Graphite Name Role Phone MARC HERNANDEZ Primary Care Provider Ernesto Beck [phone] REASON FOR VISIT screening, hx polyps,hx colon ca Encounters Encounter Location Date Provider Diagnosis [facility] [place] Out[place] [address] [place] [id number] 10/09/2024 Ernesto Wu Plan Of Treatment Next Appt Details Provider Name:Ernesto Wu , 10/01/2025 07:30:00 AM, [address] [place] [address], [id number], Progress Notes * KENANMELISSA FUNES KDOB:[birth year] (80 yo M)Acc No.[id number]:10/09/2024 COLON WITH MAC Patient: MELISSA CRUZ Provider: Sheba Wu MD :1945 A ge:79 Y S ex:Male Date:10/09/2024 Address:[address] [place], [place] [phone] Pcp:MARC HERNANDEZ Subjective: * Chief Complaints: * [...] 1 Generated for Alfredo logan/Lila/Zo on: 0 06/07/2025 05:16 PM EDT
--- OUTSIDE RECORDS SUMMARY | 2025-05-28 10:30 | XMS_ITS ---
Author Organization [facility] Address [address] [place] [address] Care Team Providers Care Youth Coordinator Name Role Phone Stuart Lozano Primary Care Provider Unav ailable Warren, Marychuy Unavailable [phone] Encounters Encounter Location Date Provider Diagnosis [address] [address] 05/28/2025 Marychuy Black Plan Of Treatment Next Appt Details Provider Name:Marychuy Archer Warren , 06/18/2025 08:00:00 AM, [address] [place] [address], [address], Provider Name:Marychuy Archer Warren , 06/28/2025 02:30:00 PM, [address] [place] [address], [address], Provider Name:Marychuy Archer Warren , 07/02/2025 08:00:00 AM, [address] [place] [address], [address], Provider Name:Marychuy Archer Black , 07/16/2025 08:00:00 AM, [address] [place] [address], [address], Progress Notes * Casey SEWELL KDOB:[birth year] (80 yo M)Acc No.[id number]:05/28/2025 Progress Notes Patient: Casey CRUZ Provider: Karine Kelley DPM :1945 A ge:79 Y S ex:Male Date:05/28/2025 Address:[address] [place] [address] la[place] [id number] Pcp:IVORY Mattson Subjective: * Chief Complaints: * * Medical History: Objective: * Vitals: Assessment: Plan: * Treatment: * Images: * The named appointment provid er may or may not be the originator of this progress note, and it is not deemed complete until electronically signed by the appointment provider. Sign off status: Pending * Provider: Karine Kelley DPM Date: 05/28/2025 Generated for Alfredo logan/Lila/Zo on: 06/07/2025 05:17 PM EDT
--- NOTE | ~2025-06-07 | CT_ITS ---
CLINICAL HISTORY: shortness of breath CT angiogram chest/pulmonary arteries with contrast Multiplanar reconstructions and MIPS Comparison: 01/04/2025 Findings: No filling defects are noted to suggest pulmonary embolus. Main pulmonary artery normal in caliber. Thoracic aorta normal caliber without dissection. Heart size enlarged. Great vessel origins patent. Dense coronary calcifications. No significant focal parenchymal abnormalities. No significant mediastinal or hilar adenopathy. No free pleural fluid. Old mild T12 compression deformity. No acute bony abnormality noted. Impression: No evidence of pulmonary embolus This document has been electronically signed by: Deandre Esparza MD on 06/07/2025 19:41:59
--- NOTE | ~2025-06-07 | XR_ITS ---
EXAMINATION: XR CHEST CLINICAL INFORMATION: SOB, CP COMPARISON: None available. TECHNIQUE: 2 views of the chest were obtained. FINDINGS: No significant abnormality is noted involving the heart, lungs, mediastinum, bony thorax or soft tissues. Surgical clips are present in the left upper quadrant and in the upper abdomen right of midline. Thoracic spine demonstrates anterior syndesmophytes. XR/XR chest 2V IMPRESSION: No acute disease Changes from ankylosing spondylitis or less likely diffuse idiopathic skeletal hyperostosis (DISH) Electronically signed by: Luis F Gallagher MD 06/07/2025 02:10 PM EDT
--- OUTSIDE RECORDS SUMMARY | 2025-06-07 04:00 | XMS_ITS ---
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 Role Phone Stuart Lozano Primary Care Provider Unav ailable Black, Marychuy Unavailable [phone] Allergies Allergen (clinical drug ingredient) Drug/Non Drug Allergy documented on EMR Reaction Allergy Type Onset Date Status 12 Hour Nasal [place] Unknown Drug Allergy Active Dust Mites Unknown Allergy Active REASON FOR VISIT At Risk Footcare, Skin problem(s) Medications Medication SIG (Take, Route, Frequency, Duration) Notes Start Date End Date Status Keflex Not-Taking Atenolol Not-Taking Vitamin E Not-Taking HumaLOG Not-Taking Metaform Not-Taking Ascorbic Acid Not-Jacek hensley Vitamin C & E Complex Not-Taking Prevnar 13 Not-Takin g Venlafaxine HCl Not- Taking Multivitamins Not-Jacek hensley Nattokinase 100 MG as directed Orally Not-Taking Extra Depth Orthopedic Shoes (1 Pair) with Customized Heat Molded Multidensity Innersoles (3 Pair) as directed Dx: IDDM/Polyneuropathy (E10.42), Hammertoe Foot Deformity (M20.41,M20.42), Preulcerative Skin Lesion(s) (L85.1) 06/02/2018 Not-Taking Flax Seeds - as directed Orally Not-Taking Aspirin 81 81 MG 1 tablet Orally Once a day Not-Taking [place] 3-6-9 Not-Jd ng Ciprofloxacin HCl 500 MG 1 tablet Orally every 12 hrs; Duration: 7 days 2025 Active Doxycycline Monohydrate 100 MG 1 capsule Orally Twice a day; Duration: 10 days 05/24/2025 Active Timolol Maleate PF N ot-Taking Lovastatin Not-Takin g Magnesium Not-Taking Ammonium Lactate 12 % 1 application Exte rnally to affected areas of dry skin to feet except for between the toes Twice a day; Duration: 30 days Active Aspirin 81 MG 1 tablet Orally Once a day; Duration: 30 day(s) Active Antibacterial Alginate w/Silv 4.25 X4.25 as directed Externally 05/24/2025 Active Turmeric Active AFO-Hinged as directed Wear Juli ly; Duration: as needed 09/08/2021 Active Berberine HCI 500 MG as directed Orally Active Vitamin D Active HumuLIN N Active Zinc Active Vitamin C 500 MG as directed Orally O nce a day Active Vitamin D3 Active Resveratrol Active Flax Seed Oil Active Vitamin B Complex - as directed Orally Active [id number] Active Vitamin A Active Social History Tobacco Use: Social History [...] ast year? No Points 0 Interpretation Negative Problems Problem Type SNOMED Code ICD Code Onset Dates Problem Status W/U Status Risk Notes Problem Ulcer of toe of right foot (disorder) ([id number] [id number]) Skin ulcer of toe of right foot, limited to breakdown of skin (L97.511) Active confirmed Vital Signs Height 5ft 11in in 06/07/2025 Weight 197 lbs 06/07/2025 BMI 27.47 kg/m2 06/07/2025 Blood pressure systolic 113 mm Hg 06/07/20 25 Blood pressure diastolic 70 mm Hg 025 Procedures Procedure Date Ordered Date Performed Result Body Sit e 09163- Debride <25 sq cm 06/07/2025 N/A Encounters Encounter Location Date Provider Diagnosis [facility] [place] [address] 06/07/2025 Marychuy Black Type 1 diabetes mellitus with diabetic polyneuropathy E10.42 ; Cellulitis of right toe L03.031 and Skin ulcer of toe of right foot, limited to breakdown of skin L97.511 Assessments Encounter Date Diagnosis (ICD Code) Assessment Notes Treatment Notes Treatment Clinical Notes Section Notes 06/07/2025 Type 1 diabetes mellitus with diabetic polyneuropathy (ICD-10 - E10.42) 06/07/2025 Cellulitis of right toe (ICD-10 - L03.031) 06/07/2025 Skin ulcer of toe of right foot, limited to breakdown of skin (ICD-10 - L97.511) Plan Of Treatment Pending Test Test Name Order Date 67285- Debride <25 sq cm 06/07/2025 Next Appt Details Follow Up: 2 Weeks, Reason: Provider Name:Marychuy Kelley , 06/18/2025 08:00:00 AM, [address] [place] [address], [phone], Provider Name:Marychuy A Warren , 06/28/2025 02:30:00 PM, [address] [place] [address], [phone], Provider Name:Marychuy Suzi Kelley , 07/02/2025 08:00:00 AM, [address] [place] [address], [phone], Provider Name:Marychuy Archer Warren , 07/16/2025 08:00:00 AM, [address] [place] [address], [phone], Procedure Notes * Category Sub-Category Detail Notes [...] due to presence of NEUROPATHY. Post debridement measurements:8 mm x8 mm x 2 mm. 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 * ROS: G eneral/Constitutional: Nausea d enies, [...] ardiovascular: Pacemaker d enies, d enies. M [employer] d enies, d enies. W PW d [...] Surgical History: a mputation of foot total(partial) 2002cholecystectomy 1975splenectomy 1976tonsillectomy olonoscopy 07/31/19kidney stones- 4 removed- left kidney- renal scan - kidney disease 04/2020 * Hospitalization/Major Diagno stic Procedure[place] [facility] [place] [place] minerva bonilla [facility] [place] [place] [facility] [place] Attack[place]Stress Anxiety[place]Covid [place] [place] * Family History: [...] N egative * Medications: T akingVitamin A [id number] Vitamin D3 Resveratrol Flax Seed Oil Vitamin [...] Chewable 1 tablet Orally Once a day Antibacterial Alginate w/Silv 4.25 X4.25 Pad as directed Externally Ciprofloxacin HCl 500 MG Tablet 1 tablet Orally every 12 hrs Doxycycline Monohydrate 100 MG Capsule 1 capsule Orally Twice a day Taking Vitamin A Taking [id number] Taking Vitamin D3 Taking Resveratrol Taking Flax [...] 1 tablet Orally Once a day Taking Antibacterial Alginate w/Silv 4.25 X4.25 Pad as directed Externally Taking Ciprofloxacin HCl 500 MG Tablet 1 tablet Orally every 12 hrs Taking Doxycycline Monohydrate 100 MG Capsule 1 capsule Orally Twice a day Not-Taking/PRNTimolol Maleate PF Lovastatin Magnesium Flax Seeds - Powder as directed Orally Aspirin 81 81 MG Tablet Delayed Release 1 tablet Orally Once a day [place] 3-6-9 Nattokinase 100 MG Capsule as directed [...] tablet Orally Once a day Not- Taking/PRN [place] 3-6-9 Not-Taking/PRN Nattokinase 100 MG Capsule as [...] * Vitals: H t: 5ft 11in, Wt: 197, BMI: 27.47, Shoe size: 12, BP: 113/70 mm Hg, BS: 105, Ht- cm: 180.34 cm, Wt-k.36 kg. * P ast Orders: L ab:HEMOGLOBIN A1C (GLYCOHEMOGLOBIN) (Order Date - 09/10/2024) (Collection Date & Time - 09/10/2024 02:15 PM) Value Reference Range HEMOGLOBIN A1C % (HH) 5.2 * Examination: O phthalmology Referral: DIABETES EYE EXAM P rocedure Performed: Y es D ate of Exam Performed 0 10/11/2024 F indings of Diabetic Eye Exam: n o retinopathy G eneral Examination: GENERAL APPEARANCE: R naseemeals a pleasant, alert, well nourished, well-developed, well hydrated individual, who demonstrates proper attention to hygiene/body habitus, and is in no acute distress, Pt serves as own historian for office visit today, Denies fever, chills, malaise, lymphadenopathy. ORIENTED: p erson, place, and time. N eurological: SENSORY: N eurological exam demonstrates inability for patient to distinguish sharp/dull pin prick discrimination, reduced, light touch sensation, reduced, vibration sensation,reduced, proprioception identification, in a stocking fashion, B/L. Test with 5.07 [place] monofilament performed at plantar aspects of 5 varied sites per foot shows sensation absent in at least 2 locations, B/L, Pt relates, cont. anesthesia. V ascular: DP PULSES (B): 1 /4, B/L. PT PULSES (B): 1 /4, B/L. O rthopedic: DIGITAL DEFORMITIES: A mputation 4,5 rays right. D ermatologic: SKIN FINDINGS: S kin shows sign(s) of, localized cellulitis without lymphangitis resolved. ULCER: D istal, T6, LOCATION, SIZE, 5mm X 5mm X 3mm, BASE, fibro-granular, RIM, hyperkeratotic, UNDERMINING, mild, TRACKING, Sub Q with Fat layer exposed, DRAINAGE, serosanguineous, moderate, NECROTIC TISSUE, loosely-adherent, yellow slough, MALODOR, absent, CALOR, absent, ERYTHEMA, present. Assessment: * Assessment: 1. C ellulitis of right toe - L03.031 (Primary) S pecify :Response to treatment - Improvement Resolved 2 . T ype 1 diabetes mellitus with diabetic polyneuropathy - E10.42 3 . S kin ulcer of toe of right foot, limited to breakdown of skin - L97.511 ? Plan: * Treatment: * Procedures: D ebride [...] due to presence of NEUROPATHY. Post debridement measurements:8 mm x8 mm x 2 mm. Character of the wound post debridement is stable (95113).? * Procedure Codes: 9 7597 ACTIVE WOUND CARE/20 CM OR <, Modifiers: XS * Preventive Medicine: Counseling: D iscussion: - 12: Office or other outpatient visit for the [...] have encouraged the patient to call the office. C ellulitis/Lymphangitis G iven recent successful results to treatment, The patient is to continue the plan as directed. pt will continue with the present antibiotic, ER: Discussed with the patient that if there is any worsening of the condition, then he/she is to report to the ER/EW for evaluation/treatment. The patient stated to fully understand the recommendations/instructions. * Follow Up: 2 Weeks * Images: Drawing:mobile_06/07 08:10:16 * Sign off status: Completed true * Provider: Karine Kelley DPM Date: 06/07/2025 Generated for Alfredo Krishna/Zo on: 06/07/2025 05:17 PM EDT History and Physical Notes * HPI (History of Present Illness) Category Sub-Category Detail Notes Category Not es Skin problems Treatments: , Local care con sisting of daily distilled water wound cleanse, topical antibiotic as recommended, application of sterile dressing, offloading/pressure reduction via rest, shoe modification, insert modification, accommodative padding, assisted ambulation via cane/ crutch/ walker/ wheelchair/ knee scooter, and surgical debridement, antibiotic had to be changed due to side effects pt was experiencing At Risk footcare Pt States Last PCP Visit: Date: 03/11/2025 Examination Category Sub-Category Detail Notes Category Not es Ingrown Nail INSPECTION: Neurological SENSORY: Neurological exa m demonstrates inability for patient to distinguish sharp/dull pin prick discrimination, reduced, light touch sensation, reduced, vibration sensation,reduced, proprioception identification, in a stocking fashion, B/L. Test with 5.07 [place] monofilament performed at plantar aspects of 5 varied sites per foot shows sensation absent in at least 2 locations, B/L, Pt relates, cont. anesthesia Dermatologic SKIN FINDINGS: Skin shows sign( s) of, localized cellulitis without lymphangitis resolved ULCER: Distal, T6, LOCATION , SIZE, 5mm X 5mm X 3mm, BASE, fibro-granular, RIM, hyperkeratotic, UNDERMINING, mild, TRACKING, Sub Q with Fat layer exposed, DRAINAGE, serosanguineous, moderate, NECROTIC TISSUE, loosely-adherent, yellow slough, MALODOR, absent, CALOR, absent, ERYTHEMA, present Orthopedic DIGITAL DEFORMITIES: Amputation 4,5 rays right General Examination GENERAL APPEARANCE: Reveals a pleasant, alert, well nourished, well-developed, well hydrated individual, who demonstrates proper attention to hygiene/body habitus, and is in no acute distress, Pt serves as own historian for office visit today, Denies fever, chills, malaise, lymphadenopathy ORIENTED: person, place, and t vishal Ophthalmology Referral DIABETES EYE EXAM Procedure Perform ed:: Yes Date of Exam Performed: 10/11/2024 Findings of Diabetic Eye Exam:: no retin opathy Vascular DP PULSES (B): 1/4, B/L PT PULSES (B): 1/4, B/L TROPHIC CONDITION-TEXTURE/ELASTICITY/TUR GOR/HAIR GROWTH (B): EDEMA (C): PIGMENTATION:
--- NOTE | 2025-06-07 13:19 | ECG_ITS ---
Test Reason : CP Blood Pressure : */* mmHG Vent. Rate : 82 BPM Atrial Rate : 82 BPM P-R Int : 170 ms QRS Dur : 82 ms QT Int : 374 ms P-R-T Axes : 60 -36 57 degrees QTcB Int : 436 ms Normal sinus rhythm Left axis deviation Low voltage QRS Possible Lateral infarct , age undetermined Abnormal ECG When compared with ECG of 15-Feb-2025 02:37, Borderline criteria for Lateral infarct are now Present Referred By: Generic ED Physician Electronically Signed By: STEVE GRIDER
[2025-06-07 13:34] VITALS: BP 114/71; PULSE 90; RESP 18; TEMP 36.6; O2SAT 100; BMI 26.9
--- NOTE | 2025-06-07 13:35 | ED.CHESTPAIN ---
HPI - Chest Pain General Chief Complaint: Chest Pain Stated Complaint: Chest pain Time Seen by Provider: 06/07/25 17:10 Source: patient Mode of arrival: ambulatory Limitations: no limitations History of Present Illness ED Provider: Dr. Sosa HPI narrative: This is a 80-year-old male history of coronary artery disease, hyperlipidemia, diabetes presented hospital today for intermittent exertional chest pain. Patient stated that he was at school today when he was walking and had sudden onset of sternal sharp pain. Patient does not have pain on rest however when he exerts himself he does feel short of breath and has chest pain. Patient does follow up with primary evaluate cardiology and sees Dr. Parks. He states that he was being set up for a MRI to assess his heart. Patient does have severe calcification based on his coronary artery CT imaging on review of chart. Patient has not had any recent stress test performed. He stated that he was unable to tolerate stress test in the past Denies any leg swelling. Patient did not take any aspirin prior to arrival. Denies any coughing fever sore throat nasal congestion. Denies tobacco use, father does have history of cardiac disease. Related Data Home Medications ?Medication ?Instructions ?Recorded ?Confirmed zinc 50 mg capsule 50 mg PO DAILY 08/13/20 04/11/25 vitamin B complex 1 cap PO DAILY 10/14/20 04/11/25 berberine-herbal comb no.18 capsule 500 cap PO BID 12/31/22 04/11/25 resvertrol 06/01/23 04/11/25 ascorbate calcium (vitamin C) 500 1.5 g PO DAILY 07/07/23 04/11/25 mg tablet cholecalciferol (vitamin D3) 100 1,200 unit PO DAILY 09/27/23 04/11/25 mcg (4,000 unit) capsule latanoprost 0.005 % eye drops 1 drp ophthalmic (eye) QPM 03/21/24 04/11/25 alpha lipoic acid 200 mg capsule 200 mg PO BID 05/23/24 04/11/25 turmeric (bulk) 95 % powder 95 ea miscellaneous DAILY 07/24/24 04/11/25 (Curcumin) dorzolamide 2 % eye drops 2 drp ophthalmic (eye) DAILY 10/02/24 04/11/25 insulin NPH isoph U-100 human 100 30 unit subcut BID diabetes 12/28/24 04/11/25 unit/mL subcutaneous suspension (Humulin N NPH U-100 Insulin (isophane susp)) aspirin 81 mg tablet,delayed 81 mg PO DAILY 01/26/25 04/11/25 release (Adult Low Dose Aspirin) ginkgo biloba 40 mg tablet 40 mg PO DAILY 01/26/25 04/11/25 vitamin A 2,400 mcg capsule 2,400 mcg PO DAILY 04/11/25 04/11/25 acetylcysteine (bulk) ea miscellaneous 05/03/25 vitamin E mixed 400 unit tablet unit PO 05/03/25 Previous Rx's ?Medication ?Instructions ?Recorded blood-glucose sensor (FreeStyle #6 ea 04/26/24 Nilsa 3 Sensor device) leg brace (Ankle Brace) #1 ea 06/28/24 insulin syringe-needle U-100 1 mL #200 ea 09/01/24 30 gauge x 1/2 (BD Insulin Syringe Ultra-Fine) ketoconazole 2 % topical cream 1 appl topical DAILY #60 grams 05/04/25 blood sugar diagnostic (Contour #450 ea 05/18/25 Test Strips) methocarbamol 500 mg tablet 500 mg PO BEDTIME #10 tabs 05/31/25 Allergies Allergy/AdvReac Type Severity Reaction Status Date / Time penicillamine Allergy Unknown unknown Verified 06/07/25 13:37 Review of Systems Review of Systems: Pertinent review of systems as mentioned in HPI. All other system otherwise negative. 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 Vitamin D deficiency Cholecystectomy planned Osteoarthritis History of colon cancer CKD (chronic kidney disease) Sarcoidosis Partial nontraumatic amputation of right foot PVD (peripheral vascular disease) Diabetic retinopathy Spherocytosis Skin cancer Peripheral neuropathy Spinal stenosis Renal stones Pulmonary sarcoidosis Diabetes Surgical History History of amputation of foot History of ureter repair H/O splenectomy S/P ureteral reimplantation History of surgical removal of pilonidal cyst History of tonsillectomy and adenoidectomy H/O right hemicolectomy Status post laser lithotripsy of ureteral calculus Hx of cholecystectomy Hx of colonoscopy Family History Family History Mother Thyroid cancer Other Mental health disorder Social History Social History Household Members: Friend(s) Housing: House Are you a primary care transition mgr to a significant other at home: No Do you presently have visiting nurse or other home services: No Alcohol intake: never Patient Tobacco Use Status: Never used Tobacco Smoked in Last 30 Days: No e-Cigarette/Vaping Use: Never Used Second Hand Smoke Exposure: No Use of substances other than those prescribed or required for medical reasons: No Advance Directives: Yes Advance Directives on File: Yes Advance Directives Date on File: 12/02/23 service: No Current occupational status: employed and retired Cognitive needs: No Hearing needs: No Vision needs: No Physical Exam Exam: Exam: General: Pleasant, no distress, interacting appropriately Head: Normacephalic, atraumatic ENT: neck supple, no tracheal deviation Cardiovascular: regular rate, regular rhythm, no murmurs, rubbing, gallops Respiratory: CTAB, no wheeze, rales, rhonchi Gastrointestinal: Soft, non distended, non tender, non guarding Extremities: No limb pain or swelling, no calf tenderness Neurological: Awake and alert, no facial droop noted Skin: Warm and dry Psychiatric: Appropriate mood and thoughts Vital Signs: Vital Signs: Last Vital Signs Temp 98.1 F 06/07/25 20:00 Pulse 70 06/07/25 20:00 Resp 15 06/07/25 20:00 BP 127/53 L 06/07/25 20:00 Pulse Ox 100 06/07/25 20:00 O2 Del Method Room Air 06/07/25 20:00 BMI result Body Mass Index 26.9 Course Course Course Narrative: This is an RME: Additional HPI, ROS, PE not included below will be deferred to primary provider. RME assessment and note performed by: Seema Elias PA-C This is a 28-cjea-ipx-male who presents to the ER with complaints of weakness, fatigue, lightheaded since this AM. Reports that he walked alot this morning, more than usual and felt this symptoms. He drove home, went upstairs 2 flights and noticed worsening SOB. Noticed SOB upon exertion. Reports he sat down and had a strong pain midsternally, described as a dull, intense pain - currently not having any pain. Reports that over the last 2 weeks he has had intermittent CP. Plan: Labs, EKG, CXR, further ER eval needed Medications Administered Discontinued Medications Generic Name Dose Route Start Last Admin Trade Name Hollie PRN Reason Stop Dose Admin Aspirin 324 mg 06/07/25 17:32 06/07/25 18:02 Aspirin 81 Mg Tab.Chew PO 06/07/25 17:33 324 mg ONCE ONE Administration Sodium Chloride 1,000 mls @ 999 mls/hr 06/07/25 17:45 06/07/25 18:09 Ns IV 06/07/25 18:45 999 mls/hr .Q1H1M MONIE Administration Iohexol 65 ml 06/07/25 18:55 06/07/25 18:55 Iohexol 350 Mg/Ml 100 Ml Infus..Btl IV 06/07/25 18:56 65 ml ONCE ONE Administration Medical Decision Making Medical Decision Making [facility] Narrative: 80 year old male history of CAD, hyperlipidemia, diabetes presented hospital today for evaluation of exertional chest pain and shortness of breath EKG will be ordered, ACS workup will be obtained including a CBC chemistry troponin. BNP was added onto the patient. Patient's presentation with history of severe coronary artery calcification on CT imaging is concerning for possible cardiac ischemia. Patient is high risk. However patient is complain of some shortness of breath with this atypical chest pain. We will plan to obtain a CTA of the chest to rule out PE. He has no risk factor for PE at this time. However he does endorse some shortness of breath. This is abnormal for him. Patient stated that in the past he has left-sided chest tightness. The sternal chest pain is abnormal atypical. Chest x-ray will be obtained. Patient has a heart score of 5. Patient's troponin is negative, patient CT of chest did not show any signs of PE. I discussed with the patient due to his high risk and presentation I recommend admission to the hospital for a stress test. And further observation however patient states he would like to go home and follow up with his integration lead instead. He is unable to tolerate a stress test. There is her decision making we will plan to discharge patient and have him follow with the cardiology. Return precaution provided the patient. Patient will be discharged. Differential Diagnosis Differential Diagnoses: The differential diagnosis associated with the presentation includes ACS, CAD, STEMI, PE, pneumonia Lab Data MDM Lab Attestation statement: I reviewed the patient's lab results. 06/07/25 14:22 06/07/25 14:22 Labs: Lab Results 06/07/25 06/07/25 Range/Units 14:14 14:22 WBC 7.3 (4.8-10.8) X10*3/uL RBC 4.20 L (4.60-5.80) X10*6/uL Hgb 13.5 L (14.0-18.0) g/dl Hct 37.2 L (42.0-52.0) % MCV 88.6 (80.0-98.0) fL MCH 32.1 (27.0-33.0) pg MCHC 36.3 H (31.0-36.0) g/dl RDW 12.7 (11.0-16.0) % Plt Count 341 (160-400) X10*3/uL MPV 10.8 (9.4-12.4) fL Immature Gran % (Auto) Cancelled Neut % (Auto) Cancelled Lymph % (Auto) Cancelled Liberty % (Auto) Cancelled Eos % (Auto) Cancelled Baso % (Auto) Cancelled Lymph # (Auto) Cancelled [place] # (Auto) Cancelled Eos # (Auto) Cancelled Baso # (Auto) Cancelled Abs Immat Gran (auto) Cancelled Absolute Neuts (auto) Cancelled Absolute Nucleated RBC 0.000 (0.0-0.012) X10*3/uL Nucleated RBC % (auto) 0.0 (0.0-0.2) /100WBC Neutrophils % (Manual) 44 L (45-73) % Band Neutrophils % 6 H (3-5) % Lymphocytes % (Manual) 33 (20-40) % Atypical Lymphs % (Man) 8 H (0-6) % Monocytes % (Manual) 6 (2-11) % Eosinophils % (Manual) 2 (0-4) % Basophils % (Manual) 1 (0-2) % Abs Neuts (Manual) 3.7 (2.0-8.3) X10*3/uL Lymphocytes # (Manual) 2.4 (1.2-4.9) X10*3/uL Atyp Lymphs # (Manual) 0.6 x10*3/uL Monocytes # (Manual) 0.4 (0.1-1.2) X10*3/uL Eosinophils # (Manual) 0.1 (0.0-0.4) X10*3/uL Basophils # (Manual) 0.1 (0.0-0.2) X10*3/uL Nucleated RBCs 1 H (0-0) /100WBC Platelet Estimate NORMAL (NORMAL) Large Platelets PRESENT Plt Morphology Comment NOTED RBC Morphology NOTED Pappenheimer Bodies PRESENT Acanthocytes (Spur) 2+ (3-5) /OIF Sodium 137 (135-145) mmol/L Potassium 4.0 (3.3-5.1) mmol/L Chloride 105 (96-108) mmol/L Carbon Dioxide 26 (22-29) mmol/L Anion Gap 10 L (12-20) BUN 22 H (9-16) mg/dL Creatinine 1.09 (0.5-1.4) mg/dL Estim Creat Clear Calc 58.5 Estimated GFR > 60 Random Glucose 153 H (60-115) mg/dL Calcium 9.8 (8.4-10.2) mg/dL Magnesium 1.9 (1.6-2.6) mg/dL Total Bilirubin 2.2 H (0.0-1.0) mg/dL Direct Bilirubin 0.6 H (0.0-0.5) mg/dL AST 28 (5-37) U/L ALT 15 (0-40) U/L Alkaline Phosphatase 81 (39-117) U/L Troponin I High Sens < 2.7 (<3.5-35.0) ng/L B-Natriuretic Peptide 90 (<100) pg/mL Total Protein 7.1 (6.5-8.0) g/dL Albumin 4.0 (3.5-5.0) g/dL COVID-19 (KASH) Negative (Negative) COVID-19 Clin Com See Note Influenza Type A (CARLOS) Negative (Negative) Influenza Type B (CARLOS) Negative (Negative) Influenza A & B Note See Note Independent Interpretation I performed an independent interpretation of an: Plain X-Ray and CT Scan Radiology Impression Discussion of test interpretation with radiology: I have reviewed the radiologist's reading. Discharge Plan Discharge Clinical Impression: Chest pain Patient Disposition: Home, Self-Care Instructions: Chest Pain (ED) Additional Instructions: Follow up with the integration lead. If chest pain returns and worsen you may return to the ED. CT imaging did not show blood clot. Troponin are negative Prescriptions: No Action (DME) insulin syringe-needle U-100 [BD Insulin Syringe Ultra-Fine] 1 mL 30 gauge x 1/2 syringe See Rx Instructions .Route Qty: 200 3RF Rx Instructions: Use to inject insulin twice per day ketoconazole 2 % cream 1 appl topical DAILY Qty: 60 1RF (DME) Contour Test Strips Strip See Rx Instructions .Route Qty: 450 1RF Rx Instructions: 5 times a day methocarbamol 500 mg tablet 500 mg PO BEDTIME Qty: 10 0RF Rx Instructions: Can try 1/2 tablet to reduce lethargy; no alcohol or driving while taking this medication vitamin B complex Capsule 1 cap PO DAILY latanoprost 0.005 % drops 1 drp ophthalmic (eye) QPM Humulin N NPH U-100 Insulin 100 unit/mL suspension 30 unit subcut BID zinc 50 mg Capsule 50 mg PO DAILY cholecalciferol (vitamin D3) 100 mcg (4,000 unit) capsule 1,200 unit PO DAILY berberine-herbal comb no.18 Capsule 500 cap PO BID ascorbate calcium (vitamin C) 500 mg tablet 1.5 g PO DAILY (DME) resvertrol 0 .Route .MEDSUPPLY (DME) FreeStyle Nilsa 3 Sensor Device See Rx Instructions .Route Qty: 6 1RF Rx Instructions: Test blood sugar 4 times per day alpha lipoic acid 200 mg capsule 200 mg PO BID (DME) Ankle Brace Misc See Rx Instructions .ROUTE .MEDSUPPLY Qty: 1 0RF Rx Instructions: LEFT AFO custom molded for foot drop Custom shoes, diabetic foot Curcumin 95 % powder 95 ea miscellaneous DAILY dorzolamide 2 % drops 2 drp ophthalmic (eye) DAILY vitamin A 2,400 mcg capsule 2,400 mcg PO DAILY aspirin [Adult Low Dose Aspirin] 81 mg tablet,delayed release (DR/EC) 81 mg PO DAILY ginkgo biloba 40 mg tablet 40 mg PO DAILY Rx Instructions: give with meal/snack acetylcysteine (bulk) Powder miscellaneous vitamin E mixed 400 unit tablet PO Print Language: Vietnamese
[2025-06-07 14:42] LABS: Hematocrit 37.2 % (42.0-52.0); Hemoglobin 13.5 g/dl (14.0-18.0); Mean Corpuscular HGB Conc 36.3 g/dl (31.0-36.0); Mean Corpuscular Hemoglobin 32.1 pg (27.0-33.0); Mean Corpuscular Volume 88.6 fL (80.0-98.0); NRBC Abs Auto 0.000 X10*3/uL (0.0-0.012); NRBC Pct Auto 0.0 /100WBC (0.0-0.2); Platelet Count 341 X10*3/uL (160-400); Red Blood Count 4.20 X10*6/uL (4.60-5.80)
[2025-06-07 14:45] LABS: Alanine Aminotransferase 15 U/L (0-40); Albumin Level 4.0 g/dL (3.5-5.0); Alkaline Phosphatase 81 U/L (39-117); Anion Gap 10 (12-20); Aspartate Amino Transferase 28 U/L (5-37); Blood Urea Nitrogen 22 mg/dL (9-16); Calcium 9.8 mg/dL (8.4-10.2); Carbon Dioxide 26 mmol/L (22-29); Chloride 105 mmol/L (96-108); Creatinine Clr Calc Pharmacy 58.5; Estimated Glomerular Filt Rate > 60; Magnesium 1.9 mg/dL (1.6-2.6); Potassium 4.0 mmol/L (3.3-5.1); Sodium 137 mmol/L (135-145); Total Protein 7.1 g/dL (6.5-8.0)
[2025-06-07 14:48] LABS: COVID-19 Test Negative (Negative); IDNOW Serial# 55D5AD1C; IDNOW Serial# 58CA691E; Influenza B2 Negative (Negative)
[2025-06-07 14:49] LABS: B Type Natriuretic Peptide 90 pg/mL (<100)
[2025-06-07 14:50] LABS: Troponin-I High Sensitivity < 2.7 ng/L (<3.5-35.0)
[2025-06-07 14:51] LABS: WBC ABN SCTR FOR CBC 1
[2025-06-07 15:28] LABS: Atypical Lymphs Percent Manual 8 % (0-6); Band Neutrophils Percent 6 % (3-5); Basophils Percent Manual 1 % (0-2); Eosinophils Percent Manual 2 % (0-4); Lymphocytes Percent Manual 33 % (20-40); Monocytes Percent Manual 6 % (2-11); Neutrophils Percent Manual 44 % (45-73)
[2025-06-07 15:29] LABS: Acanthocytes 2+ (3-5) /OIF; RBC Morphology NOTED
[2025-06-07 15:30] LABS: Large Platelet PRESENT
[2025-06-07 15:33] LABS: Atypical Lymph Absolute Manual 0.6 x10*3/uL; Basophils Abs Manual 0.1 X10*3/uL (0.0-0.2); Eosinophils Absolute Manual 0.1 X10*3/uL (0.0-0.4); Lymphocytes Absolute Manual 2.4 X10*3/uL (1.2-4.9); Monocytes Absolute Manual 0.4 X10*3/uL (0.1-1.2); Neutrophils Absolute Manual 3.7 X10*3/uL (2.0-8.3); White Blood Count 7.3 X10*3/uL (4.8-10.8)
[2025-06-07 16:22] VITALS: BP 116/61; PULSE 72; RESP 18; O2SAT 100
--- OUTSIDE RECORDS SUMMARY | 2025-06-07 17:16 | XMS_ITS | Encounter Summary ---
Author Organization [facility] Address [address] [place] [phone] Phone Care Team Providers Care Market Risk Specialist Name Role Phone Pcp, Unknown Primary Care Provider Stuart Carrasco CENTER RECEPTIONIST Primary Care Provider + Encounter Details Date Type Department Care Team (Late st Contact Info) Description 01/10/2021 Transcribe Orders [facility] [address] [address] [address] Eric [address] [place] [id number] [email or web address] Social History Tobacco Use Types [...] on filedocumented in this encounter Care Teams Market Risk Specialist Relationship Specialty Start Date End Date Pcp, Unknown PCP - General 11/20/20 04/26/24 Stuart Will NP [address] [place] [address] PCP - General Nurse Practitioner 04/27/24 documented as of this encounter Additional Source Comments The information contained in this document represents components of the legal health record. It is not the complete legal health record.[facility]
--- OUTSIDE RECORDS SUMMARY | 2025-06-07 17:16 | XMS_ITS | Patient Health Record ---
Author Organization [facility] Address [address] [place] [address] Care Team Providers Care Facility Attendant Name Role Phone MARC HERNANDEZ Primary Care Provider Ernesto Beck [phone] Allergies No Known Allergies Reason For Referral [...] day(s) Active Ketoconazole 2 % 1 application Vocational Case Manager ally Once a day for 14 day(s) [...] Problem Status W/U Status Risk Notes Problem 193668923 Encounter for screening for malignant neoplasm of colon (Z12.11) Active confirmed Problem 434225309 History of adenomatous polyp of colon (Z86.010) Active confirmed Problem 904551282 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 Problem 968105086369201 Preprocedural examination (Z01.818) Active confirmed Problem 641979463 History of colon cancer (Z85.038) Active confirmed Problem 20679134 Constipation, unspecified constipation type (K59.00) Active confirmed Problem Diverticulosis of colon (694515180) Diverticulosis of colon (K57.30) Active confirmed Problem History of gastrointestinal tract bypass (411987391) Hx of Billroth II operation (Z98.0) Active confirmed Vital Signs Temperature 97.9 degrees Fahrenheit 04/04/2025 Blood pressure diastolic 01 mm Hg 04/04/2025 Height 71.5 in 04/04/2025 Blood pressure systolic 001 mm Hg 04/04/2025 Weight 196 lbs 04/04/2025 BMI 26.95 kg/m2 04/04/2025 Procedures Procedure Date Ordered Date Performed Result Body Sit e COLONOSCOPY 04/04/2025 N/A Encounters Encounter Location Date Provider Diagnosis [facility] [address] [place] [address] 04/04/2025 Ernesto Wu History of adenomato us polyp of colon Z86.010 ; Irritable bowel syndrome K58.9 ; Encounter for screening for malignant neoplasm of colon Z12.11 ; History of colon cancer Z85.038 and Preprocedural examination Z01.818 [facility] [address] [place] [phone] 09/12/2024 Ernesto Wu [facility] [address] [place] [phone] 10/03/2024 Ernesto Wu [facility] [address] [place] [phone] 01/30/2025 Ernesto Wu [facility] [address] [place] [phone] 04/05/2025 Ernesto Wu [facility] [address] [place] [phone] 05/07/2025 Ernesto Wu Assessments Encounter Date Diagnosis [...] procedure. He will be seen by his tea bag machine tender prior to the procedure and I did [...] procedure. He will be seen by his tea bag machine tender prior to the procedure and I did [...] procedure. He will be seen by his tea bag machine tender prior to the procedure and I did [...] procedure. He will be seen by his tea bag machine tender prior to the procedure and I did [...] procedure. He will be seen by his tea bag machine tender prior to the procedure and I did [...] Name:Ernesto Wu , 10/01/2025 07:30:00 AM, [address] [place] [address], [phone], Insurance Providers Payer Name Payer Address Payer Phone Subscriber Number Group Number Insured Name Patient Relationship to Insured Coverage Start Date Coverage End Date [facility] [address] [place], [place] [id number] MELISSA ELDER Self - patient is the insured Medical (General) History Medical History History ICD Code Denies DC,CVA,Lung disease,renal disease IDDM Pulmonary sarcoidosis- inactive Spherocytosis [...] for stones with Jazlyn Liriano at [facility] Right colectomy 09/[address] 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
--- OUTSIDE RECORDS SUMMARY | 2025-06-07 17:16 | XMS_ITS | Clinical Summary ---
Author Organization [facility] Address [address] [address] [place] [address] Phone Care Team Providers Care Nurses Aide Name Role Phone Stuart Will NP Primary Care Provider + [phone] Allergies Active Allergy Reactions Criticality Noted Date [...] BULK, MISC 100 mg. Active levocarnitine HCl (DFFXRG-S-HEUFJJ INE MISC) 500 mg. Active coenzyme Q-10 [...] 40 mg tabletIndication s:Coronary artery disease involving [place] coronary artery of [place] heart, unspecified whether angina present Take 1 [...] referral to Cardiology PVD (peripheral vascular disease) ([facility] V24) 05/21/2025 Encounters Date Type Department Care Team Description 06/01/2025 Telephone [facility] [address] [facility] [address] [place] [address] Stuart Bowers MD 05/28/2025 3:00 PM EDT Office Visit [facility] [address] [place] [address] Stuart Bowers MD SOB (shortness of breath) (Primary Dx); Other chest pain; Coronary artery disease involving [place] coronary artery of [place] heart, unspecified whether angina present from Last 3 Months Medical History Medical History Date Comments BPH (benign prostatic hyperplasia) Urethral stricture Left foot drop Necrosis of right ureter Vitamin D deficiency Osteoarthritis Colon cancer ([facility] V24, [facility] V28) CKD (chronic kidney disease) Sarcoidosis Social [...] 75+ series) 2021 COVID-19 Vaccine (1 - 2024-25 season) 2024 Depression Screening 10/11/2024 Cholesterol Screening [...] GEMUSE QTc 436 ms GEMUSE P Wave [place] 52 degrees GEMUSE R [place] -25 degrees GEMUSE ECG Interpretation Sinus rhythm with Premature atrial complexes Otherwise normal ECG When compared with ECG of 23-MAR-2001 18:57, Premature atrial complexes are now Present Criteria for Inferior infarct are no longer Present Confirmed by MD BOWERS JOHN ([id number]) on 05/28/2025 5:39:54 PM GEMUSE 05/28/2025 3:16 PM EDT 05/28/2025 5:39 PM EDT us Stuart Bowers MD ECG ORDERABLES Final Result GEMUSE from Last 3 Months Insurance MEDICARE [facility] Care Teams Nurses Aide Relationship Specialty Start Date End Date Stuart Will NP [address] [place] [address] PCP - General Family Medicine 05/28/25
--- OUTSIDE RECORDS SUMMARY | 2025-06-07 17:17 | XMS_ITS | Clinical Summary ---
Author Organization [facility] Address [address] [place] [address] Phone Care Team Providers Care Logistics Center Manager Name Role Phone Stuart Will SUPERVISOR SPECIAL EFFECTS Primary Care Provider + Social History Tobacco Use Types Packs/Day Years Used Date Smoking Tobacco: Never Assessed Education Answer Date Recorded Are you interested in more education? Not on quyen e 02/14/2023 Are you concerned about learning? Not on file 02/14/2023 No 02/14/2023 No 02/14/2023 Digital Access Answer Date Recorded No 03/07/2023 No 03/07/2023 No 03/07/2023 Reliable internet access at home? Not on file 03/07/2023 Device with a working camera? Not on file Sex and Gender Information Value Date Recorded Sex Assigned at Male 04/27/2024 9:27 AM EDT Legal Sex Male 6:38 PM EST Gender Identity Male 04/27/2024 9:27 AM EDT Sexual Orientation Lesbian or [place] 04/27/2024 9: 27 AM EDT Plan of Treatment Health Maintenance Due Date Last Done Comments LIPID PANEL 1946 DEPRESSION SCREENING 1958 SMOKING Hx and SMOKELESS TOB ACCO SCREENING 1959 HEPATITIS C SCREENING 1964 ZOSTER VACCINES (1 of 2) 1996 PNEUMOCOCCAL VACCINES (50+ y ears) (2 of 2 - PPSV23) 12/27/2018 12/27/2017 RSV VACCINE (1 - 1-dose 75+ series) 2021 COVID-19 VACCINE (1 - 2023-2 5 season) 2024 INFLUENZA VACCINE (#1) 2025 Adult Td,Tdap Booster 11/11/2028 11/11/2018 HEPATITIS A VACCINES Aged Out No long er eligible based on patient's age to complete this topic HIB VACCINES Aged Out No longer eligi ble based on patient's age to complete this topic MENINGOCOCCAL VACCINES (ACWY) Aged Out No longer eligible based on patient's age to complete this topic MENINGOCOCCAL VACCINES (B) Aged Out N o longer eligible based on patient's age to complete this topic Medical Devices Not on file Insurance MEDICARE A MEDICARE A MEDICARE A [facility] MEDICARE A MEDICARE A [facility] MEDICARE A [facility] MEDICARE A [facility] MEDICARE A [facility] MEDICARE A Care Teams Logistics Center Manager Relationship Specialty Start Date End Date Stuart Will NP [facility] [place] [address] PCP - General Nurse Practitioner 04/27/24 Additional Source Comments The information contained in this document represents components of the legal health record. It is not the complete legal health record.[facility]
--- OUTSIDE RECORDS SUMMARY | 2025-06-07 17:17 | XMS_ITS | Patient Health Record ---
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 Name Role Phone Stuart Lozano Primary Care Provider Unav ailable Black, Marychuy Unavailable [phone] Allergies Allergen (clinical drug ingredient) Drug/Non Drug Allergy documented on EMR Reaction Allergy Type Onset Date Status 12 Hour Nasal [place] Unknown Drug Allergy Active Dust Mites Unknown Allergy Active Results Component Value Reference Range Notes HEMOGLOBIN A1C (GLYCOHEMOGLO BIN) Reviewed date:11/23/2024 02:15:55 PM Interpretation: Performing Lab: Notes/Report: HEMOGLOBIN A1C % (HH) 5.2 Reason For Referral No Information Medications Medication SIG (Take, Route, Frequency, Duration) Notes Start Date End Date Status Ciprofloxacin HCl 500 MG 1 tablet Orally every 12 hrs; Duration: 7 days 2025 Active Doxycycline Monohydrate 100 MG 1 capsule Orally Twice a day; Duration: 10 days 05/24/2025 Active Timolol Maleate PF N ot-Taking Lovastatin Not-Takin g Vitamin D3 Active Nattokinase 100 MG as directed Orally Not-Taking Resveratrol Active Extra Depth Orthopedic Shoes (1 Pair) with Customized Heat Molded Multidensity Innersoles (3 Pair) as directed Dx: IDDM/Polyneuropathy (E10.42), Hammertoe Foot Deformity (M20.41,M20.42), Preulcerative Skin Lesion(s) (L85.1) 06/02/2018 Not-Taking Flax Seed Oil Active Vitamin B Complex - as directed Orally Active Magnesium Not-Taking Flax Seeds - as directed Orally Not-Taking Vitamin A Active Aspirin 81 81 MG 1 tablet Orally Once a day Not-Taking E36-Uremnu Active [place] 3-6-9 Not-Taki ng Ascorbic Acid Not-Ta Berberine HCI 500 MG as directed Orally Active Vitamin C & E Complex Not-Taking Vitamin D Active Prevnar 13 Not-Takin g HumuLIN N Active Venlafaxine HCl Not- Taking Multivitamins Not-Ta Ammonium Lactate 12 % 1 application Exte rnally to affected areas of dry skin to feet except for between the toes Twice a day; Duration: 30 days Active Keflex Not-Taking Aspirin 81 MG 1 tablet Orally Once a day; Duration: 30 day(s) Active Antibacterial Alginate w/Silv 4.25 X4.25 as directed Externally 05/24/2025 Active Zinc Active Atenolol Not-Taking Vitamin C 500 MG as directed Orally O nce a day Active Vitamin E Not-Taking Turmeric Active HumaLOG Not-Taking AFO-Hinged as directed Wear Juli ly; Duration: as needed 09/08/2021 Active Metaform Not-Taking Immunizations Vaccine Route Administration Date Status [...] Problem Status W/U Status Risk Notes Problem 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 Problem Ulcer of toe of right foot (disorder) ([id number]) Skin ulcer of toe of right foot, limited to breakdown of skin (L97.511) Active confirmed Vital Signs Blood pressure diastolic 70 mm Hg 06/07/2025 Height 5ft 11in in 06/07/2025 Blood pressure systolic 113 mm Hg 06/07/2025 Weight 197 lbs 06/07/2025 BMI 27.47 kg/m2 06/07/2025 Procedures Procedure Date Ordered Date Performed Result Body Sit e 54520-LPSNWTW NAIL, 1-5 08/17/2024 N/A 39203-Ywwjrrdc Plate 08/17/2024 N/A 47310-Xxejonrv Plate Each Additional 08/17/2024 N/A 26717-SHUF SKIN LESIONS, OVER 4 08/17/2024 N/A 97610-TBHLUHT NAIL, 6 OR MORE 11/23/2024 N/A 77423-XAIO SKIN LESIONS, OVER 4 11/23/2024 N/A 90460-ILMQQQF NAIL, 6 OR MORE 03/15/2025 N/A 94029- Debride <25 sq cm 03/15/2025 N/A 83696-PNTG SKIN LESIONS, OVER 4 03/15/2025 N/A 89299- Debride <25 sq cm 04/02/2025 N/A 70752- Debride <25 sq cm 04/30/2025 N/A 47510-YHTXHIW NAIL, 6 OR MORE 05/24/2025 N/A 03847 I&D ABSCESS- SIMPLE,SINGLE 05/24/2025 N/A 50162-QTEQ SKIN LESIONS, OVER 4 05/24/2025 N/A 60291- Debride <25 sq cm 06/07/2025 N/A Encounters Encounter Location Date Provider Diagnosis [facility] [address] [place] [address] 08/17/2024 Marychuy Black Type 1 diabetes mellitus with diabetic polyneuropathy E10.42 ; Tinea unguium B35.1 ; Ingrown nail L60.0 and Skin ulcer of toe of left foot, limited to breakdown of skin L97.[address] [address] 11/23/2024 Marychuy Black Type 1 diabetes mellitus with diabetic polyneuropathy E10.42 ; Xerosis of skin L85.3 and Tinea unguium B35.[address] [address] 03/15/2025 Marychuy Black Type 1 diabetes mellitus with diabetic polyneuropathy E10.42 ; Xerosis of skin L85.3 ; Tinea unguium B35.1 and Skin ulcer of toe of right foot, limited to breakdown of skin L97.[address] [address] 04/02/2025 Marychuy Black Neuropathic ulcer of right foot, limited to breakdown of skin L97.511 and Type 1 diabetes mellitus with diabetic polyneuropathy E10.[address] [address] 04/30/2025 Marychuy Black Neuropathic ulcer of right foot, limited to breakdown of skin L97.511 and Type 1 diabetes mellitus with diabetic polyneuropathy E10.[address] [address] 05/24/2025 Marychuy Black Type 1 diabetes mellitus with diabetic polyneuropathy E10.42 ; Cellulitis of right toe L03.031 ; Tinea unguium B35.1 and Cutaneous abscess of right foot L02.[address] [address] 06/07/2025 Marychuy Black Type 1 diabetes mellitus with diabetic polyneuropathy E10.42 ; Cellulitis of right toe L03.031 and Skin ulcer of toe of right foot, limited to breakdown of skin L97.[address] [address] 08/22/2024 Marychuy Black [facility] [address] [place] [address] 11/23/2024 Marychuy Black [facility] [address] [place] [address] 04/30/2025 Marychuy Black [facility] [address] [place] [address] 05/01/2025 Marychuy Warren [facility] [address] [address] 05/24/2025 Marychuy Black [facility] [address] [place] [address] 05/28/2025 Marychuy Black Cellulitis of right toe L03.031 [facility] [address] 06/01/2025 Marychuy Black Cellulitis of right toe L03.031 Assessments Encounter [...] Cellulitis of right toe (ICD-10 - L03.031) 06/01/2025 Cellulitis of right toe (ICD-10 - L03.031) 06/07/2025 Cellulitis of right toe (ICD-10 - L03.031) 06/07/2025 Type 1 diabetes mellitus with diabetic polyneuropathy (ICD-10 - E10.42) 06/07/2025 Skin ulcer of toe of right foot, limited to breakdown of skin (ICD-10 - L97.511) 11/23/2024 Tinea unguium (ICD-10 - B35.1) 04/02/2025 [...] Test Name Order Date Hemoglobin A1c 12/02/2015 11203-XDYTIIK NAIL, 6 OR MORE 05/24/2025 19102-URBYTNW NAIL, 6 OR MORE 11/23/2024 67902-EXLDLSK NAIL, 6 OR MORE 07/08/2023 51528-GTZHWOG NAIL, 6 OR MORE 10/21/2023 04631-RCUFEBT NAIL, 6 OR MORE 05/11/2024 93186-ESVAKZP NAIL, 6 OR MORE 03/15/2025 43835-SWUIACN NAIL, 6 OR MORE 12/02/2020 52096-KCNJLFN NAIL, 6 OR MORE 03/13/2021 88349-UYFHIUX NAIL, 6 OR MORE 06/09/2021 76961-GAUHCFZ NAIL, 6 OR MORE 09/08/2021 93635-DRKCQHI NAIL, 6 OR MORE 01/30/2022 04867-EXAQLGM NAIL, 6 OR MORE 06/22/2022 95362-OXYOUFX NAIL, 6 OR MORE 09/28/2022 34430-QOEEKDS NAIL, 6 OR MORE 12/28/2022 71779-KNWQFLF NAIL, 6 OR MORE 04/05/2023 85005-ZQDJHWE NAIL, 6 OR MORE 10/01/2011 67801-SXVMQKF NAIL, 6 OR MORE 12/03/2011 54555-JAROZPW NAIL, 6 OR MORE 03/03/2012 62976-LYDKJUD NAIL, 6 OR MORE 06/02/2012 21313-OXGRGGN NAIL, 6 OR MORE 11/03/2012 71290-UYBFRLA NAIL, 6 OR MORE 01/23/2013 52429-EJFNECH NAIL, 6 OR MORE 04/03/2013 37065-GPQKKJF NAIL, 6 OR MORE 06/28/2013 53161-PIEBXPV NAIL, 6 OR MORE 09/13/2013 27692-IDPVDWE NAIL, 6 OR MORE 12/13/2013 20894-TARDQII NAIL, 6 OR MORE 03/22/2014 82613-UHLUVXD NAIL, 6 OR MORE 06/21/2014 41999-WJMMTML NAIL, 6 OR MORE 09/20/2014 14591-DPCJJCX NAIL, 6 OR MORE 12/06/2014 49711-UZMLRUG NAIL, 6 OR MORE 02/21/2015 87284-LABTYXZ NAIL, 6 OR MORE 05/13/2015 72640-PGPQHSH NAIL, 6 OR MORE 09/09/2015 55097-ZILOLGW NAIL, 6 OR MORE 12/02/2015 97027-JLFCRUS NAIL, 6 OR MORE 02/24/2016 39939-MXVHDBX NAIL, 6 OR MORE 06/01/2016 85425-BFBNAIW NAIL, 6 OR MORE 08/27/2016 92542-CVZJTSA NAIL, 6 OR MORE 12/07/2016 41329-UEOQQOP NAIL, 6 OR MORE 03/11/2017 84356-DHDPLKM NAIL, 6 OR MORE 06/24/2017 69946-IWQFFNQ NAIL, 6 OR MORE 09/27/2017 58632-BKPHHBY NAIL, 6 OR MORE 12/27/2017 86306-WGXQXTC NAIL, 6 OR MORE 06/02/2018 23289-ROHXBCR NAIL, 6 OR MORE 08/25/2018 82523-DOUAZDF NAIL, 6 OR MORE 11/24/2018 94098-EMHHVXP NAIL, 6 OR MORE 03/09/2019 81678-BXVRDCW NAIL, 6 OR MORE 06/05/2019 51983-TLVDJFT NAIL, 6 OR MORE 09/18/2019 56551-QWQVOMN NAIL, 6 OR MORE 03/11/2020 67798-IADHSGQ NAIL, 6 OR MORE 06/13/2020 48366-GPMKUTD NAIL, 6 OR MORE 09/23/2020 90155-HGNNBJC NAIL, 1-5 08/17/2024 68761-CEWVXQM NAIL, 1-5 01/20/2024 94804-Vite Destruction, -14 09/08/2021 42085-Aksc Destruction, 10-2406/09/2021 61774-Kfou Destruction, -14 03/11/2020 16137-Kkpa Destruction, -14 06/05/2019 57782-Pmgv Destruction, -14 09/18/2019 28895-Hgdy Destruction, 10-2403/09/2019 35789-Xclw Destruction, 10-2405/13/2015 99424-Xyja Destruction, 10-2402/21/2015 17950-Ivqv Destruction, 10-2412/06/2014 76811-Tlxe Destruction, 10-2409/20/2014 09397-Idcq Destruction, 10-2406/21/2014 89285-Pczm Destruction, 10-2403/22/2014 52598-Tilq Destruction, 10-2412/13/2013 20866-Eczr Destruction, 10-2409/13/2013 16644-Spam Destruction, 10-2406/28/2013 66191-Xvxy Destruction, 10-2404/03/2013 44033-Uhqw Destruction, 10-2401/23/2013 99139-Rgkm Destruction, 10-2411/03/2012 79554-Tdqf Destruction, 10-2406/02/2012 64801-Oedk Destruction, 10-2410/01/2011 52274-Enwt Destruction, 10-2403/03/2012 26482-Fuhi Destruction, -12/03/2011 76604-Ifprdcbv Plate 03/03/2012 82286-Ivyioskq Plate 12/03/2011 89383-Bdcnzdky Plate 06/02/2012 28902-Uvvttnwo Plate 01/23/2013 82752-Zzvtihiq Plate 04/03/2013 72985-Zifwrzci Plate 06/28/2013 14631-Kfaorztu Plate 09/13/2013 56632-Ctjsxemz Plate 12/13/2013 96059-Kpbdgxsy Plate 03/22/2014 31985-Muwbcuze Plate 06/21/2014 41788-Pidmlinv Plate 09/20/2014 69036-Uhpweijn Plate 12/06/2014 96034-Ofotnkmm Plate 02/21/2015 65747-Ygixenjx Plate 05/13/2015 97534-Pmrajhwz Plate 12/27/2017 94243-Goweltxg Plate 06/05/2019 49218-Mmhsecvr Plate 11/24/2018 82355-Vsqadhsc Plate 03/09/2019 03535-Cepsocix Plate 08/25/2018 66669-Wsxjavdd Plate 09/18/2019 98816-Jvpgxmgx Plate 03/11/2020 11557-Jzyhpscb Plate 09/27/2017 67456-Dpjjyqxe Plate 12/07/2016 25009-Oyvrnmgx Plate 08/27/2016 25816-Sdkciace Plate 06/01/2016 40994-Oqppbuei Plate 02/24/2016 19589-Brtbwiab Plate 12/02/2015 98825-Szwsaqtm Plate 11/03/2012 07839-Wurtsads Plate 09/09/2015 93172-Jrezovru Plate 06/09/2021 90809-Cnrzenjh Plate 06/13/2020 81472-Ihkhxlgt Plate 09/08/2021 80479-Ozzneknb Plate 03/13/2021 87956-Epdpsxxk Plate 09/23/2020 63288-Oimcanzg Plate 01/30/2022 22035-Fvwpokzs Plate 06/22/2022 23426-Jdaudnrp Plate 01/20/2024 93426-Gmgkegcc Plate 08/17/2024 60290-Fnrywkbh Plate Each Additional 09/2022 74095-Dombnlti Plate Each Additional 04/2024 30476-Qrhteccn Plate Each Additional 03102-Ndxmfogo Plate Each Additional 28209-Hiltokfz Plate Each Additional 12/2020 47039-Mozlswgs Plate Each Additional 51667-Jjsewzgy Plate Each Additional 67583-Zfsdithb Plate Each Additional 13803-Jfdaywkz Plate Each Additional 08527-Hsxowxyi Plate Each Additional 66770-Bbyleocm Plate Each Additional 45922-Dzgmtsqn Plate Each Additional 61469-Hynsscrz Plate Each Additional 86672-Tzhxrxsk Plate Each Additional 56554-Qoyustkh Plate Each Additional 06/2019 21593-Jxbpdkou Plate Each Additional 10/2019 60198-Ybermwgh Plate Each Additional 77103-Fpdgvvyw Plate Each Additional 97531-Sltkqnaz Plate Each Additional 54501-Hiqykxgn Plate Each Additional 12/2014 31600-Yhjpwjxa Plate Each Additional 77667-Bneuoxcl Plate Each Additional 69053-Bgqhdudu Plate Each Additional 08/2014 98829-Ukzkdiqw Plate Each Additional 08/2014 77253-Fkxbcqgc Plate Each Additional 09/2014 95489-Qsamhjrc Plate Each Additional 02/2014 34133-Vnnrnwei Plate Each Additional 01/2013 67699-Jdinhifk Plate Each Additional 58428-Edtugdsj Plate Each Additional 46485-Rgvrhicm Plate Each Additional 22356-Rgammaqe Plate Each Additional 34977-Vkkmckjz Plate Each Additional 55549- Debride <25 sq cm 06/13/2020 07896- Debride <25 sq cm 04/05/2023 45920- Debride <25 sq cm 03/15/2025 68220- Debride <25 sq cm 04/02/2025 68241- Debride <25 sq cm 04/30/2025 40621- Debride <25 sq cm 06/07/2025 87728 I&D ABSCESS- SIMPLE,SINGLE 025 14654 I&D ABSCESS- SIMPLE,SINGLE 013 06443 I&D ABSCESS- SIMPLE,SINGLE 013 25759-SOQF SKIN LESIONS, OVER 4 01/24/20 13 18313-UYSS SKIN LESIONS, OVER 4 11/03/19 13 70437-WYVB SKIN LESIONS, OVER 4 04/03/20 13 05879-PODA SKIN LESIONS, OVER 4 06/28/20 13 77808-AVYF SKIN LESIONS, OVER 4 09/13/20 13 69362-FQTK SKIN LESIONS, OVER 4 12/14/19 14 80334-KHGB SKIN LESIONS, OVER 4 03/22/20 14 75022-EPWA SKIN LESIONS, OVER 4 06/21/20 14 54187-XAOG SKIN LESIONS, OVER 4 09/20/20 14 45016-SWBI SKIN LESIONS, OVER 4 12/06/19 15 95214-PZBN SKIN LESIONS, OVER 4 02/22/20 15 30412-FCWI SKIN LESIONS, OVER 4 05/13/20 15 05312-NLWL SKIN LESIONS, OVER 4 06/13/20 56791-XUUY SKIN LESIONS, OVER 4 09/23/20 20 30580-LCFG SKIN LESIONS, OVER 4 03/11/20 20 20881-TPFE SKIN LESIONS, OVER 4 09/18/20 19 35819-YIMG SKIN LESIONS, OVER 4 03/09/20 19 60935-POOL SKIN LESIONS, OVER 4 06/05/20 19 50378-OVXZ SKIN LESIONS, OVER 4 11/24/19 19 70766-XOHY SKIN LESIONS, OVER 4 08/25/20 18 97677-RVOS SKIN LESIONS, OVER 4 12/28/19 18 24453-KKVI SKIN LESIONS, OVER 4 06/02/20 18 18351-WANO SKIN LESIONS, OVER 4 09/27/20 17 47776-YODV SKIN LESIONS, OVER 4 06/24/20 17 46848-CUXM SKIN LESIONS, OVER 4 12/07/19 17 79756-KYVN SKIN LESIONS, OVER 4 03/11/20 17 26020-CYXG SKIN LESIONS, OVER 4 08/27/20 16 26065-EPDP SKIN LESIONS, OVER 4 06/01/20 16 46642-QZDB SKIN LESIONS, OVER 4 02/24/20 16 48985-QUSV SKIN LESIONS, OVER 4 12/02/19 16 79167-MHUT SKIN LESIONS, OVER 4 09/09/20 15 85079-ZBJU SKIN LESIONS, OVER 4 03/15/20 25 17953-ZJCF SKIN LESIONS, OVER 4 05/24/20 25 50242-GYKS SKIN LESIONS, OVER 4 08/17/20 24 65248-XKRE SKIN LESIONS, OVER 4 11/23/19 25 77236-EQAJ SKIN LESIONS, OVER 4 05/11/20 24 58733-SGMF SKIN LESIONS, OVER 4 01/20/20 24 13982-OJQM SKIN LESIONS, OVER 4 10/21/19 24 15223-SBVU SKIN LESIONS, OVER 4 04/05/20 23 79322-PISU SKIN LESIONS, OVER 4 07/08/20 23 76995-FZLM SKIN LESIONS, OVER 4 12/29/19 23 58935-BRWD SKIN LESIONS, OVER 4 09/28/20 39443-RWTL SKIN LESIONS, OVER 4 06/22/20 13114-XAXB SKIN LESIONS, OVER 4 01/31/20 62280-WZVF SKIN LESIONS, OVER 4 09/08/20 72248-AQCG SKIN LESIONS, OVER 4 06/09/20 53830-TIGA SKIN LESIONS, OVER 4 12/02/19 62423-HTZI SKIN LESIONS, OVER 4 03/13/20 53288-AAPR SKIN LESIONS, 2 TO 4 06/02/20 12 21683-IQIY SKIN LESIONS, 2 TO 4 03/03/20 12 62983-YDRB SKIN LESIONS, 2 TO 4 12/03/19 12 90836-WVYX SKIN LESIONS, 2 TO 4 10/01/20 11 Next Appt Details Provider Name:Marychuy Kelley , 06/18/2025 08:00:00 AM, [address] [place] [address], [phone], Provider Name:Marychuy Kelley , 06/28/2025 02:30:00 PM, [address] [place] [address], [phone], Provider Name:Marychuy Kelley , 07/02/2025 08:00:00 AM, [address] [place] [address], [phone], Provider Name:Marychuy Kelley , 07/16/2025 08:00:00 AM, [address] [place] [address], [phone], Insurance Providers Payer Name Payer Address Payer Phone Subscriber Number Group Number Insured Name Patient Relationship to Insured Coverage Start Date Coverage End Date [facility] [address] [place] [address] [phone] [id number] Casey Ulrich Self - patient is the [...] disease 04/2020 Hospitalization History Reason Date[place] [facility] [place] [facility] [place]/Stress Anxiet y/Covid 07/31 [facility] [place] [facility] [place]- [place] [facility] [place] - saw levar bonilla [facility]- chest pain 10/2015
--- OUTSIDE RECORDS SUMMARY | 2025-06-07 17:17 | XMS_ITS | Clinical Summary ---
Author Organization [facility], Address [address] [place] [address] [place] [address] Phone Care Team Providers Care Gig Tender Name Role Phone Stuart Will NP Primary Care Provider [phone] Allergies Active Allergy Reactions Criticality Noted Date [...] patient's age to complete this topic Insurance [address] [address] Care Teams Gig Tender Relationship Specialty Start Date End Date Stuart Will NP [facility] [place] [address] PCP - General Nurse Practitioner 12/06/20
[2025-06-07 18:00] VITALS: BP 130/60; PULSE 70; RESP 20; TEMP 36.7; O2SAT 100
--- NOTE | 2025-06-07 18:27 | PC.NURSE ---
patient a&ox3, ambulatory with steady gait with wheeled walker, rr equal/non labored, lungs clear, lunchroom monitor applied- nsr on monitor, iv inserted, labs previously drawn, pt medicated per order, presently denies chest pain, call [facility] within reach, plan of care ongoing
[2025-06-07] MEDS: iohexoL 350 MG/ML 100 ML INFUS..BTL 65 ML IV (18:55)
[2025-06-07 20:00] VITALS: BP 127/53; PULSE 70; RESP 15; TEMP 36.7; O2SAT 100
[2025-06-07 21:50] VITALS: BP 110/61; PULSE 79; RESP 15; TEMP 36.7; O2SAT 100
== END 2025-06-07 21:51 | disposition home or self-care (01) ==
PROVIDERS: Physician Assistant Medical; Emergency Provider Student in an Organized Health Care Education/Training Program; PCP Nurse Practitioner Family
DX: R07.89 Other chest pain (principal); I25.10 Atherosclerotic heart disease of native coronary artery without angina pectoris; E11.9 Type 2 diabetes mellitus without complications; R11.0 Nausea; Z79.4 Long term (current) use of insulin; Z79.899 Other long term (current) drug therapy; Z03.818 Encounter for observation for suspected exposure to other biological agents ruled out
CPT/HCPCS: 71046; 71275; 80048; 80076; 83735; 83880; 84484; 85007; 85025; 85027; 87502; 87635; 93005; 96360; 96361; 99285; Q9967

== ENCOUNTER → 2025-06-07 13:19 | Outpatient (BNV) | payer BC, SELFPAY | PROVIDERS: Emergency Provider Student in an Organized Health Care Education/Training Program; PCP Nurse Practitioner Family; Visit Provider Internal Medicine | DX: R94.31 Abnormal electrocardiogram [ECG] [EKG] (principal); R07.9 Chest pain, unspecified | CPT/HCPCS: 93010 ==

== ENCOUNTER → 2025-06-07 13:38 | Outpatient (BNV) | payer BC, SELFPAY | PROVIDERS: PCP Nurse Practitioner Family; Visit Provider Radiology Diagnostic Radiology | DX: R06.02 Shortness of breath (principal); R07.9 Chest pain, unspecified | CPT/HCPCS: 71046; 71275 ==

== ENCOUNTER 2025-06-18 08:57 | Outpatient (AMB) | payer BC, SELFPAY ==
--- OUTSIDE RECORDS SUMMARY | 2024-06-21 06:30 | XMS_ITS ---
Author Organization [facility] Address [address] [place] [address] Care Team Providers Care Cellophane Worker Name Role Phone MARC HERNANDEZ Primary Care Provider Ernesto Beck [phone] REASON FOR VISIT screening, hx polyps,hx colon ca Encounters Encounter Location Date Provider Diagnosis [facility] Outpatient [address] [place] [id number] 06/21/2024 Ernesto Wu Plan Of Treatment Next Appt Details Provider Name:Ernesto Wu , 10/01/2025 07:30:00 AM, [address] [place] [address], [id number], Progress Notes * GILBERTMELISSA KDOB:[birth year] (80 yo M)Acc No.[id number]:06/21/2024 COLON WITH MAC Patient: MELISSA CRUZ Provider: Sheba Wu MD :1945 A ge:79 Y S ex:Male Date:06/21/2024 Address:[address] [place], [place] [phone] Pcp:MARC HERNANDEZ Subjective: * Chief Complaints: * [...] 0 06/21/2024 Generated for Alfredo logan/Lila/Zo on: 0 06/18/2025 10:04 AM EDT
--- OUTSIDE RECORDS SUMMARY | 2024-10-09 03:30 | XMS_ITS ---
Author Organization [facility] Address [address] [place] [address] Care Team Providers Care Dairy Frozen Manager Name Role Phone MARC HERNANDEZ Primary Care Provider Ernesto Beck [phone] REASON FOR VISIT screening, hx polyps,hx colon ca Encounters Encounter Location Date Provider Diagnosis [facility] Out[place] [address] [place] [id number] 10/09/2024 Ernesto Wu Plan Of Treatment Next Appt Details Provider Name:Ernesto Wu , 10/01/2025 07:30:00 AM, [address] [place] [address], [phone], Progress Notes * KENANMELISSA FUNES KDOB:[birth year] (80 yo M)Acc No.[id number]:10/09/2024 COLON WITH MAC Patient: MELISSA CRUZ Provider: Sheba Wu MD :1945 A ge:79 Y S ex:Male Date:10/09/2024 Address:[address] [place], [place] [phone] Pcp:MARC HERNANDEZ Subjective: * Chief Complaints: * [...] 1 Generated for Alfredo logan/Lila/Zo on: 0 06/18/2025 10:03 AM EDT
--- OUTSIDE RECORDS SUMMARY | 2025-05-28 10:30 | XMS_ITS ---
Author Organization [facility] Address [address] [place] [address] Care Team Providers Care Management Analyst Name Role Phone Stuart Lozano Primary Care Provider Unav ailable Warren, Marychuy Unavailable [phone] Encounters Encounter Location Date Provider Diagnosis [address] [address] 05/28/2025 Marychuy Warren Plan Of Treatment Next Appt Details Provider Name:Mayrchuy Archer Warren , 06/28/2025 02:30:00 PM, [address] [place] [address], [address], Provider Name:Marychuy Archer Warren , 07/02/2025 08:00:00 AM, [address] [place] [address], [address], Provider Name:Marychuy Archer Warren , 07/16/2025 08:00:00 AM, [address] [place] [address], [address], Progress Notes * Casey SEWELL KDOB:[birth year] (80 yo M)Acc No.[id number]:05/28/2025 Progress Notes Patient: Casey CRUZ Provider: Karine Kelley DPM :1945 A ge:79 Y S ex:Male Date:05/28/2025 Address:[address] [place] [address] [place] [id number] Pcp:IVORY Mattson Subjective: * Chief Complaints: * [...] 0 05/28/2025 Generated for Alfredo logan/Lila/Zo on: 0 06/18/2025 10:04 AM EDT
[2025-06-18 09:01] VITALS: BP 116/60; PULSE 83; TEMP 36.6; O2SAT 98; BMI 26.2
--- NOTE | 2025-06-18 09:01 | MHC.OFFWIV ---
Intake Vital Signs 06/18/25 09:01 Height 5 ft 11 in Weight 188 lb BMI 26.2 BP 116/60 Blood Pressure Location Lt brachial Position Sitting Pulse 83 Pulse Source Pulse Oximeter Temp 97.9 F Temp Source Oral Pulse Oximetry (%) 98 Oxygen Delivery Method Room Air Intake Visit Reasons: EP sob, weakness, sciatica Intake Note: pt presents with LT sided sciatica Patient Tobacco Use Status: Never used Tobacco Allergies penicillamine Allergy (Unknown, Verified 06/18/25 09:03) unknown Do you need a note to return to daycare/school/sports/work: No HPI HPI Comments History of Present Illness Details 80 y/o Male patient who presents to the walk in clinic with c/o Left sided Sciatica Nerve Pain that radiates to his left LE x 2 weeks. This is a chronic on going issue that has not been resolved. Reports Acetaminophen and Ibuprofen do not work. He has tried Lido Patches with no relief. He was prescribed Muscle Relaxants few months back - he did not take them They do not work for me . He read the Side effects online about Muscle Relaxants and decided not to take them. Pain worse with moving and standing - no pain when sitting down. 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 Pt c/o Chronic Fatigue - he follows with 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 Vitamin D deficiency Cholecystectomy planned Osteoarthritis History of colon cancer CKD (chronic kidney disease) Sarcoidosis Partial nontraumatic amputation of right foot PVD (peripheral vascular disease) Diabetic retinopathy Spherocytosis Skin cancer Peripheral neuropathy Spinal stenosis Renal stones Pulmonary sarcoidosis Diabetes Surgical History History of amputation of foot History of ureter repair H/O splenectomy S/P ureteral reimplantation History of surgical removal of pilonidal cyst History of tonsillectomy and adenoidectomy H/O right hemicolectomy Status post laser lithotripsy of ureteral calculus Hx of cholecystectomy Hx of colonoscopy Family History Mother Thyroid cancer Other Mental health disorder Social History Household Members: Friend(s) Housing: House Are you a primary career guidance technician to a significant other at home: No Do you presently have visiting nurse or other home services: No Alcohol intake: never Patient Tobacco Use Status: Never used Tobacco e-Cigarette/Vaping Use: Never Used Second Hand Smoke Exposure: No Advance Directives Date on File: 12/02/23 service: No Current occupational status: employed and retired Cognitive needs: No Hearing needs: No Vision needs: No Review of Systems Const All systems reviewed & are unremarkable except as noted in HPI and below Physical Exam Vital Signs: Last Vital Signs Temp 97.9 F 06/18/25 09:01 Pulse 83 06/18/25 09:01 BP 116/60 06/18/25 09:01 Pulse Ox 98 06/18/25 09:01 Oxygen Delivery Method Room Air 06/18/25 09:01 BMI result Body Mass Index 26.2 Const Other: Patient seeting on the Exam Table comfortably - no distress. General: no acute distress Nutritional Appearance: well nourished Orientation/consciousness: patient oriented x3 Back/Spine/Pelvis Back: back tenderness Thoracic/Lumbar Spine: pain with thoraco-lumbar ROM, paraspinal muscle tenderness and lumbar spinal tenderness Neuro Other: Walks with a Walker. General: patient oriented x3 and moves all extremities Psych Speech and movement: Normal speech and movement present Assessment & Plan Assessment & Plan (1) Sciatica: Code(s): M54.30 - Sciatica, unspecified side Qualifiers: Laterality: left Qualified Code(s): M54.32 - Sciatica, left side Plan: Declined Acetaminophen, NSAIDs, Lido Patches, Voltaren because they do not work for his pain. He has an appointment with PCP tomorrow - advised him to ask for Ortho referral, if appropriate. Pt is willing to try Muscle relaxants today - will send Flexeril. Heat/Ice and rest. Coding Level of Care Code Est Pt Level 4 (76201) Diagnoses Sciatica of left side M54.32 Laterality: left Time Spent (min) 20
--- OUTSIDE RECORDS SUMMARY | 2025-06-18 10:03 | XMS_ITS | Patient Health Record ---
Author Organization [facility] Address [address] [place] [address] Care Team Providers Care Strategic Insights Lead Name Role Phone MARC HERNANDEZ Primary Care Provider Ernesto Beck [phone] Allergies No Known Allergies Reason For Referral [...] day(s) Active Ketoconazole 2 % 1 application Paper Tester ally Once a day for 14 day(s) [...] Problem Status W/U Status Risk Notes Problem [id number] Encounter for screening for malignant neoplasm of colon (Z12.11) Active confirmed Problem 538893894 History of adenomatous polyp of colon (Z86.010) Active confirmed Problem 257276408 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 Problem 635801659278731 Preprocedural examination (Z01.818) Active confirmed Problem 522535958 History of colon cancer (Z85.038) Active confirmed Problem 06895353 Constipation, unspecified constipation type (K59.00) Active confirmed Problem Diverticulosis of colon (138869391) Diverticulosis of colon (K57.30) Active confirmed Problem History of gastrointestinal tract bypass (387297346) Hx of Billroth II operation (Z98.0) Active confirmed Vital Signs Temperature 97.9 degrees Fahrenheit 04/04/2025 Blood pressure diastolic 01 mm Hg 04/04/2025 Height 71.5 in 04/04/2025 Blood pressure systolic 001 mm Hg 04/04/2025 Weight 196 lbs 04/04/2025 BMI 26.95 kg/m2 04/04/2025 Procedures Procedure Date Ordered Date Performed Result Body Sit e COLONOSCOPY 04/04/2025 N/A Encounters Encounter Location Date Provider Diagnosis [facility] [address] [place] [address] 04/04/2025 Ernesto uW History of adenomato us polyp of colon Z86.010 ; Irritable bowel syndrome K58.9 ; Encounter for screening for malignant neoplasm of colon Z12.11 ; History of colon cancer Z85.038 and Preprocedural examination Z01.818 [facility] [address] [place] [phone] 09/12/2024 Ernesto Wu [facility] [address] [place] [phone] 10/03/2024 Ernesto Wu [facility] [address] [place] [phone] 01/30/2025 Ernesto Wu [facility] [address] [place] [phone] 04/05/2025 Ernesto Wu [facility] [address] [place] [phone] 05/07/2025 Ernesto Wu Assessments Encounter Date Diagnosis [...] procedure. He will be seen by his web applications programmer prior to the procedure and I did [...] procedure. He will be seen by his web applications programmer prior to the procedure and I did [...] procedure. He will be seen by his web applications programmer prior to the procedure and I did [...] procedure. He will be seen by his web applications programmer prior to the procedure and I did [...] procedure. He will be seen by his web applications programmer prior to the procedure and I did [...] Provider Name:Ernesto Wu , 10/01/2025 07:30:00 AM, [address] [place] [address], [phone], Insurance Providers Payer Name Payer Address Payer Phone Subscriber Number Group Number Insured Name Patient Relationship to Insured Coverage Start Date Coverage End Date [facility] [address] [place], [place] [id number] MELISSA ELDER Self - patient is the insured Medical (General) History Medical History History ICD Code Denies [place],CVA,Lung disease,renal disease IDDM Pulmonary sarcoidosis- inactive Spherocytosis [...] surgery for stones with Jazlyn Liriano at [facility] Right colectomy 09/[address] 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
--- OUTSIDE RECORDS SUMMARY | 2025-06-18 10:03 | XMS_ITS | Clinical Summary ---
Author Organization [facility] Address [address] [place] [address] Phone Care Team Providers Care Inspector Repairer Sandstone Name Role Phone Marc Will NP Primary Care Provider [phone] Allergies Active Allergy Reactions Criticality Noted Date [...] BULK, MISC 100 mg. Active levocarnitine HCl ([id number] INE MISC) 500 mg. Active coenzyme Q-10 [...] 40 mg tabletIndication s:Coronary artery disease involving [place] coronary artery of [place] heart, unspecified whether angina present Take 1 [...] referral to Cardiology PVD (peripheral vascular disease) ([facility] V24) 05/21/2025 Encounters Date Type Department Care Team Description 06/13/2025 Telephone [facility] [address] [place] [phone] Gabriela Ang NP 06/01/2025 Telephone [facility] Cardiology [facility] [address] [place] [address] Marc Hernandez MD 05/28/2025 3:00 PM EDT Office Visit [facility] [address] [place] [address] Marc Hernandez MD SOB (shortness of breath) (Primary Dx); Other chest pain; Coronary artery disease involving [place] coronary artery of [place] heart, unspecified whether angina present from Last 3 Months Medical History Medical History Date Comments BPH (benign prostatic hyperplasia) Urethral stricture Left foot drop Necrosis of right ureter Vitamin D deficiency Osteoarthritis Colon cancer ([facility] V24, [facility] V28) CKD (chronic kidney disease) Sarcoidosis Social [...] 05/28/2025 2:51 PM EDT Plan of Treatment Upcoming Encounters Date Type Department Care Team (Late st Contact Info) Description 07/11/2025 2:10 PM EDT Office Visit [facility] [address] [facility] [address] [place] [phone] Gabriela Ang NP [address] [address] Health Maintenance Due Date Last Done Comments [...] Patients (1 - 1-dose 75+ series) 2021 Depression Screening 10/11/2024 Cholesterol Screening (Lipid Panel) 01/18/2025 Falls Risk Assessment 01/18/2025 Hepatitis C Screening 01/18/2025 Social Influencers of Health Screening 01/18/2025 Diabetes: Annual Urine Albumin-Creatinine Ratio (uACR) 05/28/2025 Diabetes: Blood Sugar Control Test (HGBA1C) 05/28/2025 Hypertension/CHF/CAD Annual BMP Blood Test 05/28/2025 COVID-19 Vaccine ( - season) 2025 Influenza Vaccine (#1) 2025 09/19/2018 DTaP,Tdap,and Td [...] GEMUSE QTc 436 ms GEMUSE P Wave [place] 52 degrees GEMUSE R [place] -25 degrees GEMUSE ECG Interpretation Sinus rhythm [...] GEMUSE from Last 3 Months Insurance MEDICARE [facility] Care Teams Inspector Repairer Sandstone Relationship Specialty Start Date End Date Marc Will NP [address] [place] [address] PCP - General Family Medicine 05/28/25
--- OUTSIDE RECORDS SUMMARY | 2025-06-18 10:03 | XMS_ITS | Encounter Summary ---
Author Organization [facility] Address [address] [place] [phone] Phone Care Team Providers Care Combat Information Center Officer Name Role Phone Pcp, Unknown Primary Care Provider Stuart Carrasco DIRECTOR DIGITAL MARKETING Primary Care Provider + Encounter Details Date Type Department Care Team (Late st Contact Info) Description 01/10/2021 Transcribe Orders [facility] [address] [address] [address] Eric [address] [place] [id number] [email or web address] Social History Tobacco Use Types Packs/Day [...] on filedocumented in this encounter Care Teams Combat Information Center Officer Relationship Specialty Start Date End Date Pcp, Unknown PCP - General 11/20/20 04/26/24 Stuart Will NP [address] [place] [address] PCP - General Nurse Practitioner 04/27/24 documented as of this encounter Additional Source Comments The information contained in this document represents components of the legal health record. It is not the complete legal health record.[facility]
--- OUTSIDE RECORDS SUMMARY | 2025-06-18 10:04 | XMS_ITS | Patient Health Record ---
Author Organization [facility] Address [address] [place] [address] Care Team Providers Care Admeasurer Name Role Phone Stuart Lozano Primary Care Provider Unav ailable Black, Marychuy Unavailable [phone] Allergies Allergen (clinical drug ingredient) Drug/Non Drug Allergy documented on EMR Reaction Allergy Type Onset Date Status 12 Hour Nasal [place] Unknown Drug Allergy Active Dust Mites Unknown Allergy Active Results Component Value Reference Range Notes HEMOGLOBIN A1C (GLYCOHEMOGLO BIN) Reviewed date:11/23/2024 02:15:55 PM Interpretation: Performing Lab: Notes/Report: HEMOGLOBIN A1C % (HH) 5.2 Reason For Referral No Information Medications Medication SIG (Take, Route, Frequency, Duration) Notes Start Date End Date Status Aspirin 81 MG 1 tablet Orally Once a day; Duration: 30 day(s) Active Antibacterial Alginate w/Silv 4.25 X4.25 as directed Externally 05/24/2025 Active Metaform Not-Taking Keflex Not-Taking Vitamin A Active Aspirin 81 81 MG 1 tablet Orally Once a day Not-Taking S20-Acmxlx Active [place] 3-6-9 Not-Taki ng Magnesium Not-Taking Flax Seeds - as directed Orally Not-Taking Timolol Maleate PF N ot-Taking Lovastatin Not-Takin g Ciprofloxacin HCl 500 MG 1 tablet Orally every 12 hrs; Duration: 7 days 2025 Not-Taking Doxycycline Monohydrate 100 MG 1 capsule Orally Twice a day; Duration: 10 days 05/24/2025 Active Vitamin D3 Active Resveratrol Not-Taki ng Extra Depth Orthopedic Shoes (1 Pair) with Customized Heat Molded Multidensity Innersoles (3 Pair) as directed Dx: IDDM/Polyneuropathy (E10.42), Hammertoe Foot Deformity (M20.41,M20.42), Preulcerative Skin Lesion(s) (L85.1) 06/02/2018 Not-Taking Flax Seed Oil Active Multivitamins Not-Jacek shellie Nattokinase 100 MG as directed Orally Not-Taking Turmeric Active HumaLOG Not-Taking AFO-Hinged as directed Wear Juli ly; Duration: as needed 09/08/2021 Active Zinc Active Atenolol Not-Taking Vitamin C 500 MG as directed Orally O nce a day Active Vitamin E Not-Taking Vitamin D Active Prevnar 13 Not-Takin g HumuLIN N Active Venlafaxine HCl Not- Taking Vitamin B Complex - as directed Orally Active Ascorbic Acid Not-Jacek hensley Berberine HCI 500 MG as directed Orally Active Vitamin C & E Complex Not-Taking Ammonium Lactate 12 % 1 application Exte rnally to affected areas of dry skin to feet except for between the toes Twice a day; Duration: 30 days Not-Takin g Immunizations Vaccine Route Administration Date Status Comme [...] Polyneuropathy due to diabetes mellitus type I (732263904) 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 Problem Ulcer of toe of right foot (disorder) ([id number] 1) Skin ulcer of toe of right foot, limited to breakdown of skin (L97.511) Active confirmed Vital Signs Blood pressure diastolic 72 mm Hg 06/18/2025 Height 5ft 11in in 06/18/2025 Blood pressure systolic 115 mm Hg 06/18/2025 Weight 196 lbs 06/18/2025 BMI 27.33 kg/m2 06/18/2025 Procedures Procedure Date Ordered Date Performed Result Body Sit e 33175-BKNHZGB NAIL, 1-5 08/17/2024 N/A 33653-Sekefygs Plate 08/17/2024 N/A 66912-Renzwtww Plate Each Additional 08/17/2024 N/A 70345-YBNJ SKIN LESIONS, OVER 4 08/17/2024 N/A 46202-CHXWMWT NAIL, 6 OR MORE 11/23/2024 N/A 26743-XMDD SKIN LESIONS, OVER 4 11/23/2024 N/A 61488-IYDOZWI NAIL, 6 OR MORE 03/15/2025 N/A 85541- Debride <25 sq cm 03/15/2025 N/A 82291-XPLE SKIN LESIONS, OVER 4 03/15/2025 N/A 74947- Debride <25 sq cm 04/02/2025 N/A 52119- Debride <25 sq cm 04/30/2025 N/A 65180-NYWEBCH NAIL, 6 OR MORE 05/24/2025 N/A 11564 I&D ABSCESS- SIMPLE,SINGLE 05/24/2025 N/A 47139-UTJC SKIN LESIONS, OVER 4 05/24/2025 N/A 45817- Debride <25 sq cm 06/07/2025 N/A Encounters Encounter Location Date Provider Diagnosis [address] [address] 06/18/2025 Marychuy Black Type 1 diabetes mellitus with diabetic polyneuropathy E10.42 ; Cellulitis of right toe L03.031 and Skin ulcer of toe of right foot, limited to breakdown of skin L97.[address] [address] 08/17/2024 Marychuy Black Type 1 diabetes mellitus with diabetic polyneuropathy E10.42 ; Tinea unguium B35.1 ; Ingrown nail L60.0 and Skin ulcer of toe of left foot, limited to breakdown of skin L97.[address] [address] 11/23/2024 Marychuy Black Type 1 diabetes mellitus with diabetic polyneuropathy E10.42 ; Xerosis of skin L85.3 and Tinea unguium B35.[address] [address] 03/15/2025 Marychuy Black Type 1 diabetes mellitus with diabetic polyneuropathy E10.42 ; Xerosis of skin L85.3 ; Tinea unguium B35.1 and Skin ulcer of toe of right foot, limited to breakdown of skin L97.[address] [address] 04/02/2025 Marychuy Black Neuropathic ulcer of right foot, limited to breakdown of skin L97.511 and Type 1 diabetes mellitus with diabetic polyneuropathy E10.[address] [address] 04/30/2025 Marychuy Black Neuropathic ulcer of right foot, limited to breakdown of skin L97.511 and Type 1 diabetes mellitus with diabetic polyneuropathy E10.[address] [address] 05/24/2025 Marychuy Black Type 1 diabetes mellitus with diabetic polyneuropathy E10.42 ; Cellulitis of right toe L03.031 ; Tinea unguium B35.1 and Cutaneous abscess of right foot L02.611 [facility] [address] [place] [address] 06/07/2025 Marychuy Black Type 1 diabetes mellitus with diabetic polyneuropathy E10.42 ; Cellulitis of right toe L03.031 and Skin ulcer of toe of right foot, limited to breakdown of skin L97.[address] [place] [address] 08/22/2024 Marychuy Black [address] [place] [address] 11/23/2024 Marychuy Black [facility] [place] [address] 04/30/2025 Marychuy Black [facility] [place] [address] 05/01/2025 Marychuy Black [facility] [place] [address] 05/24/2025 Marychuy Black [address] [place] [address] 05/28/2025 Marychuy Black Cellulitis of right toe L03.[address] [place] [address] 06/01/2025 Marychuy Black Cellulitis of right toe L03.[address] [place] [address] 06/12/2025 Marychuy Black Assessments Encounter Date Diagnosis (ICD [...] with diabetic polyneuropathy (ICD-10 - E10.42) 06/18/2025 Type 1 diabetes mellitus with diabetic polyneuropathy (ICD-10 - E10.42) 06/07/2025 Skin ulcer of toe of right foot, limited to breakdown of skin (ICD-10 - L97.511) 06/18/2025 Cellulitis of right toe (ICD-10 - L03.031) [...] abscess of right foot (ICD-10 - L02.611) 06/18/2025 Skin ulcer of toe of right foot, limited to breakdown of skin (ICD-10 - L97.511) Plan Of Treatment Pending Test Test Name Order Date Hemoglobin A1c 12/02/2015 15613-KDHDINV NAIL, 6 OR MORE 05/24/2025 42684-JSOQEJM NAIL, 6 OR MORE 11/23/2024 72045-KJYAHYD NAIL, 6 OR MORE 07/08/2023 34954-WMJSKOG NAIL, 6 OR MORE 10/21/2023 54922-SYKISER NAIL, 6 OR MORE 05/11/2024 18625-JQIJWZI NAIL, 6 OR MORE 03/15/2025 18252-TYGDYDM NAIL, 6 OR MORE 12/02/2020 62052-DWGBLEE NAIL, 6 OR MORE 03/13/2021 82738-JUANGTU NAIL, 6 OR MORE 06/09/2021 42916-WRGLAQL NAIL, 6 OR MORE 09/08/2021 32309-DNINRIZ NAIL, 6 OR MORE 01/30/2022 63028-NFDFBNX NAIL, 6 OR MORE 06/22/2022 08202-XYCZIZF NAIL, 6 OR MORE 09/28/2022 46440-AGKSNGF NAIL, 6 OR MORE 12/28/2022 58754-RATNLKP NAIL, 6 OR MORE 04/05/2023 53552-VUIUJMI NAIL, 6 OR MORE 10/01/2011 11197-MRNVEQM NAIL, 6 OR MORE 12/03/2011 91675-SHDTLOH NAIL, 6 OR MORE 03/03/2012 82318-OFPWOYP NAIL, 6 OR MORE 06/02/2012 17822-GEOUFPP NAIL, 6 OR MORE 11/03/2012 87316-KLSIMVI NAIL, 6 OR MORE 01/23/2013 58233-ZTCXXOZ NAIL, 6 OR MORE 04/03/2013 27833-WXHHPQN NAIL, 6 OR MORE 06/28/2013 01346-ESUIBJG NAIL, 6 OR MORE 09/13/2013 77043-DCNXNEY NAIL, 6 OR MORE 12/13/2013 58994-XRLYUMD NAIL, 6 OR MORE 03/22/2014 68957-DYPESEK NAIL, 6 OR MORE 06/21/2014 70165-PATSVHM NAIL, 6 OR MORE 09/20/2014 50035-MKPJHJF NAIL, 6 OR MORE 12/06/2014 10022-LZQUQLE NAIL, 6 OR MORE 02/21/2015 64790-OYHAHCU NAIL, 6 OR MORE 05/13/2015 03298-GXVNQLF NAIL, 6 OR MORE 09/09/2015 89612-HVWJSXH NAIL, 6 OR MORE 12/02/2015 60232-MAXYDAZ NAIL, 6 OR MORE 02/24/2016 45801-TJVXNLR NAIL, 6 OR MORE 06/01/2016 19841-KJCTDPA NAIL, 6 OR MORE 08/27/2016 49323-KRFNOXU NAIL, 6 OR MORE 12/07/2016 60818-IXOHVXQ NAIL, 6 OR MORE 03/11/2017 62460-FMBRUOJ NAIL, 6 OR MORE 06/24/2017 25105-WYPNFIB NAIL, 6 OR MORE 09/27/2017 31769-HNTBBSC NAIL, 6 OR MORE 12/27/2017 79477-QUMTAAT NAIL, 6 OR MORE 06/02/2018 16496-RMUAWKP NAIL, 6 OR MORE 08/25/2018 44001-NXZLNIS NAIL, 6 OR MORE 11/24/2018 41661-OYBCVIR NAIL, 6 OR MORE 03/09/2019 15293-LIALGUE NAIL, 6 OR MORE 06/05/2019 36037-OHYWKLJ NAIL, 6 OR MORE 09/18/2019 42310-ZLPQUVF NAIL, 6 OR MORE 03/11/2020 54536-IXFCHHZ NAIL, 6 OR MORE 06/13/2020 56547-LNINJLY NAIL, 6 OR MORE 09/23/2020 68391-ZCXHYEB NAIL, 1-5 08/17/2024 61548-JMLSFUS NAIL, 1-5 01/20/2024 13929-Czee Destruction, -14 09/08/2021 13846-Jfql Destruction, -14 06/09/2021 49505-Kugq Destruction, -14 03/11/2020 33043-Yfrg Destruction, -14 06/05/2019 75417-Wvhz Destruction, -14 09/18/2019 00668-Ymzw Destruction, -14 03/09/2019 59267-Ngrd Destruction, -14 05/13/2015 19254-Kteh Destruction, -14 02/21/2015 96983-Fmfy Destruction, -14 12/06/2014 86430-Jjyi Destruction, -14 09/20/2014 84549-Esqf Destruction, 10-2406/21/2014 78081-Nyfh Destruction, 10-2403/22/2014 75257-Dcpq Destruction, 10-2412/13/2013 99861-Xdqy Destruction, 10-2409/13/2013 10867-Ytjp Destruction, 10-2406/28/2013 72621-Hvrq Destruction, 10-2404/03/2013 98878-Pmwb Destruction, 10-2401/23/2013 66643-Qlgi Destruction, 10-2411/03/2012 80434-Zgmp Destruction, 10-2406/02/2012 26975-Ocxt Destruction, 10-2410/01/2011 36893-Oszt Destruction, 10-2403/03/2012 10911-Bqhk Destruction, 10-2412/03/2011 65831-Piibmexh Plate 03/03/2012 21576-Amzqtcgy Plate 12/03/2011 13419-Cigbibxo Plate 06/02/2012 79912-Eimkjxuc Plate 01/23/2013 16592-Xakmdkhr Plate 04/03/2013 03651-Vqnaqlbx Plate 06/28/2013 31737-Slgdbvyk Plate 09/13/2013 39386-Ilkinwxy Plate 12/13/2013 53554-Molcgfnh Plate 03/22/2014 46738-Temajvaj Plate 06/21/2014 39102-Ezprksks Plate 09/20/2014 74242-Bdehyers Plate 12/06/2014 61756-Jdtvidyu Plate 02/21/2015 73577-Suiyzmwg Plate 05/13/2015 11639-Rrawqikf Plate 12/27/2017 03598-Pousaykv Plate 06/05/2019 75910-Tvymrdvg Plate 11/24/2018 58495-Sghconzm Plate 03/09/2019 61691-Jyygkvfw Plate 08/25/2018 05629-Irjuvirm Plate 09/18/2019 23712-Wbshchmz Plate 03/11/2020 69638-Ipzsjxeh Plate 09/27/2017 64491-Fwcrlode Plate 12/07/2016 16569-Lyadcsmh Plate 08/27/2016 91507-Qtruifxz Plate 06/01/2016 54632-Swjpquil Plate 02/24/2016 24114-Pyuiqfrf Plate 12/02/2015 78051-Dprseqqp Plate 11/03/2012 02300-Fivrsctb Plate 09/09/2015 30835-Mnosnkak Plate 06/09/2021 43139-Ebrvonhu Plate 06/13/2020 80614-Fqagloyc Plate 09/08/2021 72496-Vvcucgne Plate 03/13/2021 73991-Acucefio Plate 09/23/2020 29808-Hygcyegr Plate 01/30/2022 31806-Ezcruzjh Plate 06/22/2022 28921-Itrmzopi Plate 01/20/2024 28650-Ghhtbwsy Plate 08/17/2024 65396-Jinqegbv Plate Each Additional 09/2022 93825-Ofcunftd Plate Each Additional 04/2024 77931-Ovvpcmux Plate Each Additional 34281-Yqkylchl Plate Each Additional 24528-Xtescntw Plate Each Additional 12/2020 79274-Pqgguukb Plate Each Additional 65727-Yhdgykki Plate Each Additional 05676-Obbzenid Plate Each Additional 67989-Ateeakps Plate Each Additional 70820-Kqazivci Plate Each Additional 46024-Mlhmkfjg Plate Each Additional 97795-Bizurwxv Plate Each Additional 96800-Amtxxhmu Plate Each Additional 91944-Lfwfsfyi Plate Each Additional 51391-Vzwudbac Plate Each Additional 06/2019 79409-Koajeyzz Plate Each Additional 10/2019 73548-Vmxlbruo Plate Each Additional 07212-Atxcxdgh Plate Each Additional 06339-Cunpshcx Plate Each Additional 39146-Wvtzakja Plate Each Additional 12/2014 82906-Icukxjan Plate Each Additional 53399-Puhqjxlc Plate Each Additional 30725-Giswgfxa Plate Each Additional 08/2014 53802-Thfqnksc Plate Each Additional 08/2014 99276-Nexjpbwt Plate Each Additional 09/2014 46438-Stjofpbk Plate Each Additional 02/2014 88503-Aejounhw Plate Each Additional 01/2013 78569-Ulyxyolw Plate Each Additional 43525-Siglwwsy Plate Each Additional 45735-Ctgocgvs Plate Each Additional 36519-Erieheeu Plate Each Additional 62725-Ctrlzapw Plate Each Additional 28152- Debride <25 sq cm 06/13/2020 58368- Debride <25 sq cm 04/05/2023 87751- Debride <25 sq cm 03/15/2025 52096- Debride <25 sq cm 04/02/2025 95903- Debride <25 sq cm 04/30/2025 37294- Debride <25 sq cm 06/07/2025 51737 I&D ABSCESS- SIMPLE,SINGLE 025 63905 I&D ABSCESS- SIMPLE,SINGLE 013 74330 I&D ABSCESS- SIMPLE,SINGLE 013 98082-YNRD SKIN LESIONS, OVER 4 01/24/20 13 82621-EROF SKIN LESIONS, OVER 4 11/03/19 13 32463-XQCF SKIN LESIONS, OVER 4 04/03/20 13 37501-LTRX SKIN LESIONS, OVER 4 06/28/20 13 95339-LNVE SKIN LESIONS, OVER 4 09/13/20 13 66136-YTRJ SKIN LESIONS, OVER 4 12/14/19 14 09135-QFSO SKIN LESIONS, OVER 4 03/22/20 14 75610-JJUB SKIN LESIONS, OVER 4 06/21/20 14 53423-UGMD SKIN LESIONS, OVER 4 09/20/20 14 99039-VFDV SKIN LESIONS, OVER 4 12/06/19 15 93847-XYOE SKIN LESIONS, OVER 4 02/22/20 15 06669-DJRG SKIN LESIONS, OVER 4 05/13/20 15 41733-HZWM SKIN LESIONS, OVER 4 06/13/20 20 45312-EMZK SKIN LESIONS, OVER 4 09/23/20 20 35693-NPQZ SKIN LESIONS, OVER 4 03/11/20 20 98186-DHIA SKIN LESIONS, OVER 4 09/18/20 19 05177-TOWH SKIN LESIONS, OVER 4 03/09/20 19 13616-NGLS SKIN LESIONS, OVER 4 06/05/20 19 32192-NEOW SKIN LESIONS, OVER 4 11/24/19 19 81153-SLEY SKIN LESIONS, OVER 4 08/25/20 18 62017-OXVB SKIN LESIONS, OVER 4 12/28/19 18 04171-OJXP SKIN LESIONS, OVER 4 06/02/20 18 23162-CZSG SKIN LESIONS, OVER 4 09/27/20 17 33358-JHYS SKIN LESIONS, OVER 4 06/24/20 17 93003-HHGM SKIN LESIONS, OVER 4 12/07/19 17 71454-SFSD SKIN LESIONS, OVER 4 03/11/20 17 57813-ZRIO SKIN LESIONS, OVER 4 08/27/20 16 63239-JGSW SKIN LESIONS, OVER 4 06/01/20 16 25709-SBPK SKIN LESIONS, OVER 4 02/24/20 16 08536-EGAB SKIN LESIONS, OVER 4 12/02/19 16 90481-RNNA SKIN LESIONS, OVER 4 09/09/20 15 94155-LUOF SKIN LESIONS, OVER 4 03/15/20 25 59911-CRYA SKIN LESIONS, OVER 4 05/24/20 25 87805-QHWI SKIN LESIONS, OVER 4 08/17/20 24 86392-XLCP SKIN LESIONS, OVER 4 11/23/19 25 72781-NLYM SKIN LESIONS, OVER 4 05/11/20 24 47729-ESVH SKIN LESIONS, OVER 4 01/20/20 24 67205-XEOU SKIN LESIONS, OVER 4 10/21/19 24 24331-MKUM SKIN LESIONS, OVER 4 04/05/20 23 98393-PXKU SKIN LESIONS, OVER 4 07/08/20 23 03753-DWSE SKIN LESIONS, OVER 4 12/29/19 23 88627-CDMR SKIN LESIONS, OVER 4 09/28/20 22 26913-WYUP SKIN LESIONS, OVER 4 06/22/20 22 03992-NUQU SKIN LESIONS, OVER 4 01/31/20 22 29329-ONJK SKIN LESIONS, OVER 4 09/08/20 21 80496-NCJT SKIN LESIONS, OVER 4 06/09/20 21 77336-IAAX SKIN LESIONS, OVER 4 12/02/19 21 36480-CKZU SKIN LESIONS, OVER 4 03/13/20 21 63393-BXRG SKIN LESIONS, 2 TO 4 06/02/20 12 83331-KEAB SKIN LESIONS, 2 TO 4 03/03/20 12 34415-BAZM SKIN LESIONS, 2 TO 4 12/03/19 12 58835-KVIB SKIN LESIONS, 2 TO 4 10/01/20 11 Next Appt Details Provider Name:Marychuy Kelley , 06/28/2025 02:30:00 PM, [address] [place] [address], [place], [address], Provider Name:Marychuy Kelley , 07/02/2025 08:00:00 AM, [address] [place], [address], Provider Name:Marychuy Kelley , 07/16/2025 08:00:00 AM, [address] [place], [address], Insurance Providers Payer Name Payer Address Payer Phone Subscriber Number Group Number Insured Name Patient Relationship to Insured Coverage Start Date Coverage End Date [facility] [address] [place] [address] [phone] [id number] Casey Ulrich Self - patient is the [...] kidney disease 04/2020 Hospitalization History Reason Date(Month/Year) ER- blocked arteries 07/05 [facility] [place] chest pains 02/02 [facility] Possible Heart Attack/Stress Anxiet y/Covid 07/31 [facility]- Bl[facility] Scan [facility]- chest pain 10/31 [facility] Pressure wound right ankle - saw levar bonilla [facility]- chest pain 10/2015
--- OUTSIDE RECORDS SUMMARY | 2025-06-18 10:04 | XMS_ITS | Clinical Summary ---
Author Organization [facility], Address [address] [place] [address] [place] [address] Phone Care Team Providers Care Executive Vice President Business Development Name Role Phone Stuart Will NP Primary Care Provider [phone] Allergies Active Allergy Reactions Criticality Noted Date [...] patient's age to complete this topic [place] [address] [place] [address] Care Teams Executive Vice President Business Development Relationship Specialty Start Date End Date Stuart Will NP [facility] [place] [address] PCP - General Nurse Practitioner 12/06/20
--- OUTSIDE RECORDS SUMMARY | 2025-06-18 10:04 | XMS_ITS | Clinical Summary ---
Author Organization [facility] Address [address] [place] [phone] Phone Care Team Providers Care Palliative Care Nurse Practitioner Name Role Phone Stuart Will DIVING BOARD ASSEMBLER Primary Care Provider + Social History Tobacco [...] Insurance MEDICARE A MEDICARE A MEDICARE A [facility] MEDICARE A MEDICARE A [facility] MEDICARE A [facility] MEDICARE A [facility] MEDICARE A [facility] MEDICARE A Care Teams Palliative Care Nurse Practitioner Relationship Specialty Start Date End Date Stuart Will NP [facility] [place] [address] PCP - General Nurse Practitioner 04/27/24 Additional Source Comments The information contained in this document represents components of the legal health record. It is not the complete legal health record.[facility]
--- OUTSIDE RECORDS SUMMARY | 2025-06-18 10:04 | XMS_ITS | Encounter Summary ---
Author Organization [facility] Address [address] [place] [address] Care Team Providers Care Crawler Dragline Operator Name Role Phone Stuart Will NP Primary Care Provider [phone] Encounter Details Date Type Department Care Team ([facility] Contact Info) Description 06/13/2025 Telephone [facility] - [facility] [address] [facility] [address] [place] [phone] Gabriela Ang NP [address] [place] [address] Social History Tobacco Use Types Packs/Day Years [...] on file documented as of this encounter Progress Notes * Ileana Gagnon - 06/15/2025 2:04 PM EDT Spoke with the patient and scheduled for 07/11/25 with Gabriela Ang. * Mari Alarcon - 06/15/2025 10:19 AM EDT As requested (per LC/JJ), the Coronary CTA scan has been cancelled. Pt had cath done instead. * Gabriela Ang NP - 06/13/2025 8:48 AM EDT Pls arrange HFU s/p [facility], CP, SOB, Cath 3ish weeks JJ or C Mimi--pls cancel his cCTA--he had a cath Home today Thank you documented in this encounter Plan of Treatment Upcoming Encounters Date Type Department Care Team (Late st Contact Info) Description 07/11/2025 2:10 PM EDT Office Visit [facility] [address] [place] [address] Gabriela Ang NP [address] [place] [address] documented as of this encounter Visit Diagnoses Not on filedocumented in this encounter Care Teams Crawler Dragline Operator Relationship Specialty Start Date End Date Stuart Will NP [address] [place] [address] PCP - General Family Medicine 05/28/25 documented as of this encounter
--- OUTSIDE RECORDS SUMMARY | 2025-06-18 10:04 | XMS_ITS | Encounter Summary ---
Author Organization [facility] Address [address] [place] [address] Care Team Providers Care Financial Service Rep Name Role Phone Stuart Will NP Primary Care Provider + [phone] Reason for Visit * Reason Onset Date Comments Appointment 06/01/2025 Coronary CTA Encounter Details Date Type Department Care Team ([facility] Contact Info) Description 06/01/2025 Telephone [facility] [address] [place] [address] [place] [phone] Stuart Hernandez MD [address] [place] [address] [address] [place] [address] Social History Tobacco Use Types Packs/Day Years [...] as of this encounter Progress Notes * Meli Alarcon - 06/15/2025 10:18 AM EDT As requested (per LC/JJ), the Coronary CTA scan has been cancelled. Pt had cath done instead. * Meli Alarcon - 06/01/2025 2:02 PM EDTAddended by: MELI ALARCON on: 06/01/2025 02:02 PM Modules accepted: Orders * Meli Dorian - 06/01/2025 1:57 PM EDT Pt is scheduled for a Coronary CTA scan on 06/21/25, 2:00pm arr., 3:30pm scan, @[facility]. Order and ov note faxed. Letter and lab slip mailed. * Meli Alarcon - 06/01/2025 11:25 AM EDT Order, demos and ov note have been faxed to [facility] scheduling to schedule pt for a Coronary CTA scan. Waiting for appointment. documented in this encounter Plan of Treatment Upcoming Encounters Date Type Department Care Team (Late st Contact Info) Description 07/11/2025 2:10 PM EDT Office Visit [facility] - [address] [place] [address] Gabriela Ang NP [address] [place] [address] Scheduled Orders Name Type Priority Associated Diagnoses Orde r Schedule Basic metabolic panel Lab Routine Coronary artery disease involving dry creek coronary artery of [place] heart, unspecified whether angina present Other chest pain 1 Occurrences starting 06/01/2025 until 06/01/2026 documented as of this encounter Visit Diagnoses Diagnosis Coronary artery disease involving dry creek coronary artery of [place] heart, unspecified whether angina present- Primary Other chest pain documented in this encounter Care Teams Financial Service Rep Relationship Specialty Start Date End Date Stuart Will NP [address] [place] [phone] PCP - General Family Medicine 05/28/25 documented as of this encounter
== END 2025-06-18 09:45 | disposition home or self-care (01) ==
PROVIDERS: PCP Nurse Practitioner Family; Visit Provider Nurse Practitioner Family
DX: M54.32 Sciatica, left side (principal)

== ENCOUNTER 2025-06-19 13:59 | Outpatient (AMB) | payer BC, SELFPAY ==
--- OUTSIDE RECORDS SUMMARY | 2024-06-21 06:30 | XMS_ITS ---
Author Organization [facility] Address [address] [place] [address] Care Team Providers Care Tool Grinder Name Role Phone MARC HERNANDEZ Primary Care Provider Ernesto Beck [phone] REASON FOR VISIT screening, hx polyps,hx colon ca Encounters Encounter Location Date Provider Diagnosis [facility] Out[place] [address] [place] [phone] 06/21/2024 Ernesto Wu Plan Of Treatment Next Appt Details Provider Name:Ernesto Wu , 10/01/2025 07:30:00 AM, [address] [place] [address], [phone], Progress Notes * GILBERTMELISSA KDOB:[birth year] (80 yo M)Acc No.[id number]:06/21/2024 COLON WITH MAC Patient: MELISSA CRUZ Provider: Sheba Wu MD :1945 A ge:79 Y S ex:Male Date:06/21/2024 Address:[address] [place], [place] [phone] Pcp:MARC HERNANDEZ Subjective: * Chief Complaints: * [...] 06/21/2024 Generated for Alfredo logan/Lila/Zo on: 0 06/19/2025 04:39 PM EDT
--- OUTSIDE RECORDS SUMMARY | 2024-10-09 03:30 | XMS_ITS ---
Author Organization [facility] Address [address] [place] [address] Care Team Providers Care Foundry Molder Name Role Phone MARC HERNANDEZ Primary Care Provider Ernesto Beck [phone] REASON FOR VISIT screening, hx polyps,hx colon ca Encounters Encounter Location Date Provider Diagnosis [facility] Out[facility] [address] [place] [id number] 10/09/2024 Ernesto Wu Plan Of Treatment Next Appt Details Provider Name:Ernesto Wu , 10/01/2025 07:30:00 AM, [address] [place] [address], [phone], Progress Notes * KENANMELISSA FUNES KDOB:[birth year] (80 yo M)Acc No.[id number]:10/09/2024 COLON WITH MAC Patient: MELISSA CRUZ Provider: Sheba Wu MD :1945 A ge:79 Y S ex:Male Date:10/09/2024 Address:[address] [place], [place] [phone] Pcp:MARC HERNANDEZ Subjective: * Chief Complaints: * [...] Date: 1 Generated for Alfredo logan/Lila/Zo on: 0 06/19/2025 04:39 PM EDT
--- OUTSIDE RECORDS SUMMARY | 2025-05-28 10:30 | XMS_ITS ---
Author Organization [facility] Address [address] [place] [address] Care Team Providers Care Tax Accounting Manager Name Role Phone Stuart Lozano Primary Care Provider Unav ailable WarrenShaneMarychuy Unavailable [phone] Encounters Encounter Location Date Provider Diagnosis [address] [address] 05/28/2025 Marychuy Warren Plan Of Treatment Next Appt Details Provider Name:Marychuy Kelley , 07/02/2025 08:00:00 AM, [address] [place] [address], [address], Provider Name:Marychuy Kelley , 07/16/2025 08:00:00 AM, [address] [place] [address], [address], Progress Notes * Casey SEWELL KDOB:[birth year] (80 yo M)Acc No.[id number]:05/28/2025 Progress Notes Patient: Casey CRUZ Provider: Karine Kelley DPM :1945 A ge:79 Y S ex:Male Date:05/28/2025 Address:[address] [place], [place] [address]Yfn [id number] Pcp:IVORY Mattson Subjective: * Chief Complaints: * [...] DPM Date: 0 05/28/2025 Generated for Alfredo Krishna/Zo on: 0 06/19/2025 04:39 PM EDT
--- OUTSIDE RECORDS SUMMARY | 2025-06-18 04:00 | XMS_ITS ---
Author Organization [facility] [place] Address [address] [place] [address] Care Team Providers Care Sane Rn Name Role Phone Stuart Lozano Primary Care Provider Unav ailable Black, Marychuy Unavailable [phone] Allergies Allergen (clinical drug ingredient) Drug/Non Drug Allergy documented on EMR Reaction Allergy Type Onset Date Status 12 Hour Nasal [place] Unknown Drug Allergy Active Dust Mites Unknown Allergy Active REASON FOR VISIT At Risk Footcare, Skin problem(s) Medications Medication SIG (Take, Route, Frequency, Duration) Notes Start Date End Date Status HumaLOG Not-Taking Atenolol Not-Taking Vitamin E Not-Taking Metaform Not-Taking Keflex Not-Taking Prevnar 13 Not-Tacos garcia Venlafaxine HCl Not- Taking Ascorbic Acid Not-Jacek hensley Vitamin C & E Complex Not-Taking Multivitamins Not-Jacek hensley Aspirin 81 81 MG 1 tablet Orally Once a day Not-Taking Cassel 3-6-9 Not-Jd ng Flax Seeds - as directed Orally Not-Taking Extra Depth Orthopedic Shoes (1 Pair) with Customized Heat Molded Multidensity Innersoles (3 Pair) as directed Dx: IDDM/Polyneuropathy (E10.42), Hammertoe Foot Deformity (M20.41,M20.42), Preulcerative Skin Lesion(s) (L85.1) 06/02/2018 Not-Taking Nattokinase 100 MG as directed Orally Not-Taking Magnesium Not-Taking Timolol Maleate PF N ot-Taking Lovastatin Not-Takin g Ciprofloxacin HCl 500 MG 1 tablet Orally every 12 hrs; Duration: 7 days 2025 Not-Taking Doxycycline Monohydrate 100 MG 1 capsule Orally Twice a day; Duration: 10 days 05/24/2025 Active Turmeric Active AFO-Hinged as directed Wear Juli ly; Duration: as needed 09/08/2021 Active Aspirin 81 MG 1 tablet Orally Once a day; Duration: 30 day(s) Active Antibacterial Alginate w/Silv 4.25 X4.25 as directed Externally 05/24/2025 Active Ammonium Lactate 12 % 1 application Exte rnally to affected areas of dry skin to feet except for between the toes Twice a day; Duration: 30 days Not-Takin g Zinc Active Vitamin C 500 MG as directed Orally O nce a day Active Vitamin D Active HumuLIN N Active Berberine HCI 500 MG as directed Orally Active F99-Vcbiom Active Vitamin B Complex - as directed Orally Active Flax Seed Oil Active Vitamin D3 Active Resveratrol Not-Taki ng Vitamin A Active Social History Tobacco Use: [...] Negative Vital Signs Height 5ft 11in in 06/18/2025 Weight 196 lbs 06/18/2025 BMI 27.33 kg/m2 06/18/2025 Blood pressure systolic 115 mm Hg 06/18/20 25 Blood pressure diastolic 72 mm Hg 025 Procedures Procedure Date Ordered Date Performed Result Body Sit e 00533- Debride <25 sq cm 06/18/2025 N/A Encounters Encounter Location Date Provider Diagnosis [facility] [address] [place] [address] 06/18/2025 Marychuy Black Type 1 diabetes mellitus with diabetic polyneuropathy E10.42 and Skin ulcer of toe of right foot, limited to breakdown of skin L97.511 Assessments Encounter Date Diagnosis (ICD Code) Assessment Notes Treatment Notes Treatment Clinical Notes Section Notes 06/18/2025 Type 1 diabetes mellitus with diabetic polyneuropathy (ICD-10 - E10.42) 06/18/2025 Skin ulcer of toe of right foot, limited to breakdown of skin (ICD-10 - L97.511) Plan Of Treatment Pending Test Test Name Order Date 85247- Debride <25 sq cm 06/18/2025 Next Appt Details Follow Up: 2 Weeks, Reason: Provider Name:Marychuy Kelley , 07/02/2025 08:00:00 AM, [address] [place] [address], [phone], Provider Name:Marychuy Kelley , 07/16/2025 08:00:00 AM, [address] [place] [address], [phone], Procedure Notes * Category Sub-Category Detail Notes [...] to presence of NEUROPATHY. Post debridement measurements: 5 mm x 5 mm x 2 mm. Character of the wound post debridement is stable (05430) Progress Notes * KENANEDWARDOCasey KDOB:[birth year] (80 yo M)Acc No.[id number]:06/18/2025 Progress Notes Patient: Casey CRUZ Provider: Viktor Kelley DPM :1945 A ge:80 Y S ex:Male Date:06/18/2025 Address:[address] [place], [place] [phone] Pcp:IVORY Mattson Subjective: * Chief Complaints: * A t [...] walker/ wheelchair/ knee scooter, and surgical debridement, oral antibiotic . * ROS: G eneral/Constitutional: Nausea d enies, [...] ardiovascular: Pacemaker d enies, d enies. 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 W PW d [...] History: a mputation of foot total(partial) 2003cholecystectomy 1975splenectomy 1976tonsillectomy olonoscopy 07/31/19kidnraoul stones- 4 removed- left kidney- renal scan - kidney disease 04/2020 * Hospitalization/Major Diagno stic Procedure: [facility] chest pain 10/2015[facility]- Pressure wound right ankle - saw minerva bonilla [facility]- chest pain 10/31[facility]- [facility] Scan [facility]- Bladder Scan [facility]- Possible Heart Attack/Stress Anxiety/Covid 07/31[facility] - chest pains 02/02[facility]- blocked arteries 07/05 * Family History: M other: , diagnosed [...] N egative * Medications: T akingVitamin A A59-Fnsaoi Vitamin D3 Flax Seed Oil Vitamin B Complex - Tablet as directed Orally Berberine HCI 500 MG Capsule as directed Orally Vitamin D HumuLIN N Zinc Vitamin C 500 MG Capsule as directed Orally Once a day Turmeric AFO-Hinged as directed Wear Daily Aspirin 81 MG Tablet Chewable 1 tablet Orally Once a day Antibacterial Alginate w/Silv 4.25 X4.25 Pad as directed Externally Doxycycline Monohydrate 100 MG Capsule 1 capsule Orally Twice a day Taking Vitamin A Taking S96-Sraxim Taking Vitamin D3 Taking Flax Seed Oil Taking Vitamin B Complex - Tablet as directed Orally Taking Berberine HCI 500 MG Capsule as directed Orally Taking Vitamin D Taking HumuLIN N Taking Zinc Taking Vitamin C 500 MG Capsule as directed Orally Once a day Taking Turmeric Taking AFO-Hinged as directed Wear Daily Taking Aspirin 81 MG Tablet Chewable 1 tablet Orally Once a day Taking Antibacterial Alginate w/Silv 4.25 X4.25 Pad as directed Externally Taking Doxycycline Monohydrate 100 MG Capsule 1 capsule Orally Twice a day Not-Taking/PRNResveratrol Ammonium Lactate 12 % Cream 1 application Externally to affected areas of dry skin to feet except for between the toes Twice a day Ciprofloxacin HCl 500 MG Tablet 1 tablet Orally every 12 hrs Timolol Maleate PF Lovastatin Magnesium Flax Seeds - Powder as directed Orally Aspirin 81 81 MG Tablet Delayed Release 1 tablet Orally Once a day Cassel 3-6-9 Nattokinase 100 MG Capsule as directed Orally Extra Depth Orthopedic Shoes (1 Pair) with Customized Heat Molded Multidensity Innersoles (3 Pair) as directed Dx: IDDM/Polyneuropathy (E10.42), Hammertoe Foot Deformity (M20.41,M20.42), Preulcerative Skin Lesion(s) (L85.1) Multivitamins Ascorbic Acid Vitamin C & E Complex Prevnar 13 Venlafaxine HCl Atenolol Vitamin E HumaLOG Metaform Keflex Medication List reviewed and reconciled with the patientNot-Taking/PRN Resveratrol Not-Taking/PRN Ammonium Lactate 12 % Cream 1 application Externally to affected areas of dry skin to feet except for between the toes Twice a day Not-Taking/PRN Ciprofloxacin HCl 500 MG Tablet 1 tablet Orally every 12 hrs Not-Taking/PRN Timolol Maleate PF Not-Taking/PRN Lovastatin Not-Taking/PRN Magnesium Not-Taking/PRN Flax Seeds - Powder as directed Orally Not-Taking/PRN Aspirin 81 81 MG Tablet Delayed Release 1 tablet Orally Once a day Not-Taking/PRN Cassel 3-6-9 Not-Taking/PRN Nattokinase 100 MG Capsule as [...] * Vitals: H t: 5ft 11in, Wt: 196, BMI: 27.33, Shoe size: 12, BP: 115/72 mm Hg, BS: 109, Ht- cm: 180.34 cm, Wt-k.91 kg. * P ast Orders: L ab:HEMOGLOBIN [...] a stocking fashion, B/L. Test with 5.07 [place] monofilament performed at plantar aspects of 5 varied sites per foot shows sensation absent in at least 2 locations, B/L, Pt relates, cont. anesthesia. V ascular: DP PULSES (B): 1 /4, B/L. PT PULSES (B): 1 /4, B/L. O rthopedic: DIGITAL DEFORMITIES: A mputation 4,5 rays right. D ermatologic: ULCER: D istal, T6, LOCATION, SIZE, 4mm X 3mm X 2mm, B ASE, granular, RIM, hyperkeratotic, UNDERMINING, absent, TRACKING, Full thickness breakdown of skin, DRAINAGE, serosanguineous, mild, NECROTIC TISSUE, loosely-adherent, yellow slough, MALODOR, absent, CALOR, absent, ERYTHEMA, absent, PAIN ON PALPATION, present. Assessment: * Assessment: 1. T ype 1 diabetes mellitus with diabetic polyneuropathy - E10.42 2 . S kin ulcer of toe of right foot, limited to breakdown of skin - L97.511 (Primary) Plan: * Treatment: * Procedures: D ebride [...] to presence of NEUROPATHY. Post debridement measurements: 5 mm x 5 mm x 2 mm. Character of the wound post debridement is stable (56823).? * Procedure Codes: 9 7597 ACTIVE WOUND CARE/20 CM OR <, Modifiers: T6 * Preventive Medicine: Counseling: U lcer: T he patient is to cont the local wound care as directed. * Follow Up: 2 Weeks * Images: * Sign off status: Completed true * Provider: Viktor Kelley DPM Date: 06/18/2025 Generated for Alfredo Krisnha/Zo on: 0 06/19/2025 04:39 PM EDT History and Physical Notes * HPI (History of Present Illness) Category Sub-Category Detail Notes Category Not es Skin problems Treatments: , Local care con sisting of daily distilled water wound cleanse, topical antibiotic as recommended, application of sterile dressing, offloading/pressure reduction via rest, shoe modification, insert modification, accommodative padding, assisted ambulation via cane/ crutch/ walker/ wheelchair/ knee scooter, and surgical debridement, oral antibiotic At Risk footcare Pt States Last PCP Visit: Date: 03/11/2025 Examination Category Sub-Category Detail Notes Category Not es Ingrown Nail INSPECTION: Neurological SENSORY: Neurological exa m demonstrates inability for patient to distinguish sharp/dull pin prick discrimination, reduced, light touch sensation, reduced, vibration sensation,reduced, proprioception identification, in a stocking fashion, B/L. Test with 5.07 [place] monofilament performed at plantar aspects of 5 varied sites per foot shows sensation absent in at least 2 locations, B/L, Pt relates, cont. anesthesia Dermatologic SKIN FINDINGS: ULCER: Distal, T6, LOCATION , SIZE, 4mm X 3mm X 2mm, BASE, granular, RIM, hyperkeratotic, UNDERMINING, absent, TRACKING, Full thickness breakdown of skin, DRAINAGE, serosanguineous, mild, NECROTIC TISSUE, loosely-adherent, yellow slough, MALODOR, absent, CALOR, absent, ERYTHEMA, absent, PAIN ON PALPATION, present Orthopedic DIGITAL DEFORMITIES: Amputation 4,5 rays [...]
[2025-06-19 14:07] VITALS: BP 100/52; PULSE 66; RESP 16; O2SAT 99; BMI 26.5
--- NOTE | 2025-06-19 14:07 | A.OFFPC_ITS ---
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 Accompanied by: Self / Same As Patient Allergies penicillamine Allergy (Unknown, Verified 06/19/25 14:59) unknown Medication List - Last Reconciled 06/19/25 by YOMI Morelos-BC acetylcysteine (bulk) ea miscellaneous alpha lipoic acid 200 mg PO BID ascorbate calcium (vitamin C) 1.5 grams PO DAILY aspirin (Adult Low Dose Aspirin) 81 mg PO DAILY atorvastatin (Lipitor) 20 mg PO BEDTIME berberine-herbal comb no.18 500 caps PO BID blood sugar diagnostic (Contour Test Strips) 5 times a day blood-glucose sensor (FreeStyle Nilsa 3 Sensor device) Test blood sugar 4 times per day cholecalciferol (vitamin D3) 1,200 units PO DAILY dorzolamide 2% 2 drps ophthalmic (eye) DAILY ginkgo biloba 40 mg PO DAILY insulin NPH isoph U-100 human (Humulin N NPH U-100 Insulin (isophane susp)) 30 units subcut BID insulin syringe-needle U-100 (BD Insulin Syringe Ultra-Fine) Use to inject insulin twice per day ketoconazole 2% 1 appl topical DAILY latanoprost 0.005% 1 drp ophthalmic (eye) QPM leg brace (Ankle Brace) LEFT AFO custom molded for foot drop Custom shoes, diabetic foot lidocaine 5% 1 patch topical DAILY methocarbamol 500 mg PO BEDTIME [resvertrol ] turmeric (bulk) 95% (Curcumin) 95 ea miscellaneous DAILY vitamin A 2,400 mcg PO DAILY vitamin B complex 1 cap PO DAILY vitamin E mixed units PO zinc 50 mg PO DAILY Tobacco use date assessed: 06/19/25 Fall risk assessment: 2 + Falls in past year Last assessed Fall Risk: 06/19/25 Dental Screening Dental Screen Date: 06/19/25 Did you have a dental visit in the last 12 months?: Yes Did you have a dental problem in the last 6 months where you did not have access to dental care?: No Was dental information given to patient?: Patient has dentist HPI HDF HPI Details Chief Complaint The patient presents with chest tightness and shortness of breath. History of Present Illness The patient is a 80-year-old male presenting with follow-up after hospital discharge due to a CP. He has a history of Diabetes Mellitus Type 2, hypertension, and colon cancer status post hemicolectomy. The patient reports experiencing chest tightness, which began around 4:00 PM on the day of his fall and lasted for about an hour. The chest tightness resolved after administration of 325 mg of aspirin by EMS. He has experienced intermittent chest tightness and weakness since January 2024. The patient is currently under cardiology care, and a recent angiogram showed no blockage, with the triple air valve tester indicating that the heart is not the source of discomfort (according to the pt). An echocardiogram performed in January was benign with an ejection fraction of 60%. There is no concern for fluid overload or congestive heart failure, and EKG showed no ST changes with negative troponins, assumed due to discharge (missing all notes from [facility]) The patient reports ongoing shortness of breath, and a CT scan in December showed scarring at the lung bases, possibly related to previous COVID-19 infections. He has never smoked. 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 He reports these symptoms primarily when frustrated, and there is a suspicion that anxiety contributes to his chest discomfort. The patient also experiences stress and depression due to financial concerns and reduced work activity. He has been advised to take the rest of the semester off and plans to sell equipment to alleviate financial stress. 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 - Financial Status: Reports stress and d epression due to financial concerns and reduced work activity. - Exercise: Encouraged to maintain a wal shellie routine around the house to improve stamina. Health Maintenance - Encouraged to maintain a daily walking routine to improve physical fitness. - Advised to engage in mental activities such as reading and selling items to keep the mind active. Review of Systems - Cardiovascular: Reports intermittent c hest tightness since January 2024. Denies fluid overload or congestive heart failure. - Respiratory: Reports shortness of mayito th. Denies cough, hemoptysis, or wheezing. - Psychological: Reports anxiety and dep ression related to stress and financial concerns, denies any si or hi Physical Exam General: Cooperative, healthy appearing, comfortable, no acute distress and well developed Orientation: Patient oriented x3 Limitations: No limitations Head: Normal to inspection Ears: Hearing grossly normal bilaterally Nose: Normal external nose present Face and sinus: Normal facial exam Eyes: Appearance normal, both eyes and all related structures Neck: Normal visual inspection and Yes full ROM Respiratory: Normal respiratory effort and able to speak in complete sentences. Clear to auscultation bilaterally Cardiovascular: Regular rate and rhythm. Normal S1 and S2 GI: Normal to inspection. Soft to palpation and nontender Skin: No rashes or lesions noted Neuro: Patient oriented x3 Extremities: Normal to inspection Results - EKG: No ST changes, troponins negative . - Echocardiogram: Benign with ejection f raction of 60%. - CT Scan (December): Scarring at lung base s, possibly related to COVID-19. - Angiogram: No blockage detected. Plan 1. Anxiety The patient experiences anxiety, particularly related to teaching responsibilities and financial stress. It was suggested that he take the rest of the semester off to reduce stress levels. 2. Depression The patient reports depression linked to financial concerns and reduced work activity. He plans to sell equipment to alleviate financial stress. 3. Preventative Care: Encouraged Walking Routine And Mental Activity The patient was encouraged to maintain a daily walking routine to improve physical fitness and engage in mental activities such as reading and selling items to keep the mind active. 4. SOB: PFT ordered, though think pt is also somewhat deconditioned 5. CP: not cardiac related, according t o pt. will track down triple air valve tester's notes and testing results Discussion Notes During the visit, I discussed with the patient the importance of managing stress and anxiety, particularly in relation to his teaching responsibilities and financial concerns. I advised him to take the rest of the semester off to reduce stress and suggested selling equipment (cameras) to alleviate financial burdens. We also discussed the importance of maintaining physical activity through a daily walking routine and engaging in mental activities to keep his mind active. I emphasized the need for ongoing monitoring of his chronic conditions, including diabetes and hypertension. Patient Instructions - Take the rest of the semester off to r educe stress. - Engage in a daily walking routine to i mprove physical fitness. - Participate in mental activities such as reading and selling items to keep the mind active. - Monitor chronic conditions, including diabetes and hypertension, as advised by healthcare providers. 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 Vitamin D deficiency Cholecystectomy planned Osteoarthritis History of colon cancer CKD (chronic kidney disease) Sarcoidosis Partial nontraumatic amputation of right foot PVD (peripheral vascular disease) Diabetic retinopathy Spherocytosis Skin cancer Peripheral neuropathy Spinal stenosis Renal stones Pulmonary sarcoidosis Diabetes Surgical History History of amputation of foot History of ureter repair H/O splenectomy S/P ureteral reimplantation History of surgical removal of pilonidal cyst History of tonsillectomy and adenoidectomy H/O right hemicolectomy Status post laser lithotripsy of ureteral calculus Hx of cholecystectomy Hx of colonoscopy Family History Mother Thyroid cancer Other Mental health disorder Social History Household Members: Friend(s) Housing: House Are you a primary manager care management to a significant other at home: No Do you presently have visiting nurse or other home services: No Alcohol intake: never Patient Tobacco Use Status: Never used Tobacco e-Cigarette/Vaping Use: Never Used Second Hand Smoke Exposure: No Advance Directives Date on File: 12/02/23 service: No Current occupational status: employed and retired Cognitive needs: No Hearing needs: No Vision needs: No Questionnaire Thrive Questionnaire Date Thrive assessed: 12/26/24 I am a: Patient What is your living situation today?: I have a steady place to live Within the past 12 months, did the food you bought not last and you didn't have the money to get more?: Never true Within the past 12 months, did you worry whether your food would run out before you got money to buy more?: Never true Do you have trouble paying for medicines?: No Do you have trouble getting transportation to medical appointments?: No Do you have trouble paying your heating and electricity bill?: No Do you have trouble taking care of your child, family member or friend?: No Do you have trouble with day-to-day activities such as bathing, preparing meals, shopping, managing finances, etc.?: No Are you currently unemployed and looking for a job?: No Are you interested in more education?: No THRIVE Score: 0 CANDIS-7 AMB Questionnaire CANDIS-7 Date CANDIS - 7 assessed: 06/19/25 Feeling nervous, anxious, or on edge: 0 = Not at all Not being able to stop or control worryin = Not at all Worrying too much about different things: 0 = Not at all Trouble relaxin = Not at all Being so restless that it is hard to sit still: 0 = Not at all Becoming easily annoyed or irritable: 0 = Not at all Feeling afraid as if something awful might happen: 0 = Not at all Total CANDIS-7 score (0-4 normal; 5-9 mild; 10-14 moderate; 15-21 severe): 0 Source: Developed by Drs. Ernesto Moscoso, Jodi Alvarado, Sam Deluna and colleagues, with an educational devon from [employer]. CANDIS-7 Assessment Billing CANDIS-7 Assessment Tool: CANDIS-7 Assessment 41289 Physical exam (Primary Care) Vital Signs: Last Vital Signs Pulse 66 06/19/25 14:07 Resp 16 06/19/25 14:07 BP 100/52 L 06/19/25 14:07 Pulse Ox 99 06/19/25 14:07 Oxygen Delivery Method Room Air 06/19/25 14:07 BMI result Body Mass Index 26.5 Tobacco/Smoking Status: Tobacco use Status Tobacco use date assessed 06/19/25 06/19/25 14:18 Patient Tobacco Use Status Never used Tobacco 06/19/25 14:18 e-Cigarette/Vaping Use Never Used 06/19/25 14:18 Thrive Assessment: Date of Thrive Assessment Date Thrive assessed 12/26/24 06/19/25 14:18 Coding Level of Care Code Est Pt Level 4 (71658) Diagnoses SOB (shortness of breath) R06.02 Anxiety F41.9 Depression, unspecified depression type F32.A Depression Type: unspecified Chest pain R07.9 Additional Codes CANDIS-7 Assessment Billing - CANDIS-7 Assessment Tool: CANDIS-7 Assessment 30382 ([id number]) Assessment & Plan Assessment & Plan (1) SOB (shortness of breath): Code(s): R06.02 - Shortness of breath Category: Medical (2) Anxiety: Code(s): F41.9 - Anxiety disorder, unspecified Category: Medical (3) Depression: Code(s): F32.A - Depression, unspecified Category: Medical Qualifiers: Depression Type: unspecified Qualified Code(s): F32.A - Depression, unspecified (4) Chest pain: Code(s): R07.9 - Chest pain, unspecified Category: Medical Plan . Orders: Orders PFT pulmonary function test Today R06.02 - Shortness of breath
--- OUTSIDE RECORDS SUMMARY | 2025-06-19 16:39 | XMS_ITS | Patient Health Record ---
Author Organization [facility] Address [address] [place] [address] Care Team Providers Care Pododermatologist Name Role Phone Stuart Lozano Primary Care Provider Unav ailable Black, Marychuy Unavailable [phone] Allergies Allergen (clinical drug ingredient) Drug/Non Drug Allergy documented on EMR Reaction Allergy Type Onset Date Status 12 Hour Nasal [place]as[place] Unknown Drug Allergy Active Dust Mites Unknown [...] 1 tablet Orally Once a day Not-Taking A04-Yuveuh Active [place] 3-6-9 Not-Taki ng Magnesium Not-Taking Flax Seeds [...] Polyneuropathy due to diabetes mellitus type I (636356657) 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 Problem Ulcer of toe of right foot (disorder) (5369211087879656 1) Skin ulcer of toe of right foot, limited to breakdown of skin (L97.511) Active confirmed Vital Signs Blood pressure diastolic 72 mm Hg 06/18/2025 Height 5ft 11in in 06/18/2025 Blood pressure systolic 115 mm Hg 06/18/2025 Weight 196 lbs 06/18/2025 BMI 27.33 kg/m2 06/18/2025 Procedures Procedure Date Ordered Date Performed Result Body Sit e 92456-OSQHDHO NAIL, 1-5 08/17/2024 N/A 01414-Cedgrjyr Plate 08/17/2024 N/A 02777-Rmegvtlg Plate Each Additional 08/17/2024 N/A 21525-WXDQ SKIN LESIONS, OVER 4 08/17/2024 N/A 77149-IALHMPM NAIL, 6 OR MORE 11/23/2024 N/A 49623-UEAR SKIN LESIONS, OVER 4 11/23/2024 N/A 78509-HFATLWS NAIL, 6 OR MORE 03/15/2025 N/A 66630- Debride <25 sq cm 03/15/2025 N/A 27367-MZMU SKIN LESIONS, OVER 4 03/15/2025 N/A 34693- Debride <25 sq cm 04/02/2025 N/A 25362- Debride <25 sq cm 04/30/2025 N/A 24428-UNQWPNS NAIL, 6 OR MORE 05/24/2025 N/A 74275 I&D ABSCESS- SIMPLE,SINGLE 05/24/2025 N/A 82470-OENY SKIN LESIONS, OVER 4 05/24/2025 N/A 58056- Debride <25 sq cm 06/07/2025 N/A 66820- Debride <25 sq cm 06/18/2025 N/A Encounters Encounter Location Date Provider Diagnosis [address] [address] 08/17/2024 Marychuy Black Type 1 diabetes mellitus with diabetic polyneuropathy E10.42 ; Tinea unguium B35.1 ; Ingrown nail L60.0 and Skin ulcer of toe of left foot, limited to breakdown of skin L97.[address] [address] 11/23/2024 Marychuy Black Type 1 diabetes mellitus with diabetic polyneuropathy E10.42 ; Xerosis of skin L85.3 and Tinea unguium B35.[address] [address] 03/15/2025 Marychuy Black Type 1 diabetes mellitus with diabetic polyneuropathy E10.42 ; Xerosis of skin L85.3 ; Tinea unguium B35.1 and Skin ulcer of toe of right foot, limited to breakdown of skin L97.[address] [address] 04/02/2025 Marychuy Black Neuropathic ulcer of right foot, limited to breakdown of skin L97.511 and Type 1 diabetes mellitus with diabetic polyneuropathy E10.[address] [address] 04/30/2025 Marychuy Black Neuropathic ulcer of right foot, limited to breakdown of skin L97.511 and Type 1 diabetes mellitus with diabetic polyneuropathy E10.[address] [address] 05/24/2025 Marychuy Black Type 1 diabetes mellitus with diabetic polyneuropathy E10.42 ; Cellulitis of right toe L03.031 ; Tinea unguium B35.1 and Cutaneous abscess of right foot L02.[address] [address] 06/07/2025 Marychuy Black Type 1 diabetes mellitus with diabetic polyneuropathy E10.42 ; Cellulitis of right toe L03.031 and Skin ulcer of toe of right foot, limited to breakdown of skin L97.[address] [facility] [address] 06/18/2025 Marychuy Black Type 1 diabetes mellitus with diabetic polyneuropathy E10.42 and Skin ulcer of toe of right foot, limited to breakdown of skin L97.[address] [address] 08/22/2024 Marychuy Black [facility] [address] [address] 11/23/2024 Marychuy Black [facility] [address] 04/30/2025 Marychuy Black [facility] [address] 05/01/2025 Marychuy Black [facility] [address] 05/24/2025 Marychuy Black [facility] [address] 05/28/2025 Marychuy Black Cellulitis of right toe L03.[address] [address] 06/01/2025 Marychuy Black Cellulitis of right toe L03.[address] [address] 06/12/2025 [facility] [address] [address] 06/18/2025 Marychuy Black Assessments Encounter Date Diagnosis (ICD [...] to breakdown of skin (ICD-10 - L97.511) 06/07/2025 Skin ulcer of toe of right [...] Test Name Order Date Hemoglobin A1c 12/02/2015 25770-FKCYDUU NAIL, 6 OR MORE 05/24/2025 10352-QTLXAPU NAIL, 6 OR MORE 11/23/2024 09863-AAELSAH NAIL, 6 OR MORE 07/08/2023 39087-PAEKJEF NAIL, 6 OR MORE 10/21/2023 30868-KDTGNMW NAIL, 6 OR MORE 05/11/2024 59895-BMZEDII NAIL, 6 OR MORE 03/15/2025 23330-AOQRWDW NAIL, 6 OR MORE 12/02/2020 44554-RINMYHP NAIL, 6 OR MORE 03/13/2021 55104-TDGQJYO NAIL, 6 OR MORE 06/09/2021 48082-ZHGKHAE NAIL, 6 OR MORE 09/08/2021 89023-BDNGJMA NAIL, 6 OR MORE 01/30/2022 35614-JYZQUMA NAIL, 6 OR MORE 06/22/2022 30810-WSWSCGD NAIL, 6 OR MORE 09/28/2022 75993-EHPEBPW NAIL, 6 OR MORE 12/28/2022 38477-TGBNBPX NAIL, 6 OR MORE 04/05/2023 85408-MJVNTGP NAIL, 6 OR MORE 10/01/2011 89923-OYCGONN NAIL, 6 OR MORE 12/03/2011 71293-OLPXETS NAIL, 6 OR MORE 03/03/2012 87333-VLXKWVZ NAIL, 6 OR MORE 06/02/2012 64430-GBSKSZR NAIL, 6 OR MORE 11/03/2012 50707-FIOQTOI NAIL, 6 OR MORE 01/23/2013 20942-RRYTJUQ NAIL, 6 OR MORE 04/03/2013 55886-BHJLEOI NAIL, 6 OR MORE 06/28/2013 09517-NMAIKJN NAIL, 6 OR MORE 09/13/2013 13537-BVEKNTS NAIL, 6 OR MORE 12/13/2013 55316-BKRUJRS NAIL, 6 OR MORE 03/22/2014 27239-CXTBMRU NAIL, 6 OR MORE 06/21/2014 03936-DYJLENB NAIL, 6 OR MORE 09/20/2014 98459-ESKBGHF NAIL, 6 OR MORE 12/06/2014 64196-WBILYRC NAIL, 6 OR MORE 02/21/2015 21575-PNLVTIW NAIL, 6 OR MORE 05/13/2015 30854-RAVDPAY NAIL, 6 OR MORE 09/09/2015 46824-CLKVAFH NAIL, 6 OR MORE 12/02/2015 47621-NNUJVCC NAIL, 6 OR MORE 02/24/2016 89645-CYPANBB NAIL, 6 OR MORE 06/01/2016 54399-POKNQPX NAIL, 6 OR MORE 08/27/2016 78967-YSSWKQU NAIL, 6 OR MORE 12/07/2016 92703-NEDIKPC NAIL, 6 OR MORE 03/11/2017 75630-THBKQTS NAIL, 6 OR MORE 06/24/2017 13661-ZKSBHJA NAIL, 6 OR MORE 09/27/2017 09037-UOEVDIQ NAIL, 6 OR MORE 12/27/2017 35926-XSLICXX NAIL, 6 OR MORE 06/02/2018 72010-GNIOXZV NAIL, 6 OR MORE 08/25/2018 90730-CTLRBJB NAIL, 6 OR MORE 11/24/2018 60081-WNZSQOH NAIL, 6 OR MORE 03/09/2019 25528-TDRHQJG NAIL, 6 OR MORE 06/05/2019 06983-DLFSCBX NAIL, 6 OR MORE 09/18/2019 53336-RMZJFKF NAIL, 6 OR MORE 03/11/2020 77042-HYCLOZW NAIL, 6 OR MORE 06/13/2020 24868-ZQQAZES NAIL, 6 OR MORE 09/23/2020 23495-DXVVMHK NAIL, 1-5 08/17/2024 00570-VBODUMO NAIL, 1-5 01/20/2024 61692-Fqme Destruction, -14 09/08/2021 84539-Xlwf Destruction, -14 06/09/2021 42263-Lrvv Destruction, -14 03/11/2020 53285-Jwxd Destruction, -14 06/05/2019 60532-Rgmm Destruction, -14 09/18/2019 32980-Mrlb Destruction, -14 03/09/2019 57181-Jbjr Destruction, -14 05/13/2015 89613-Lghb Destruction, -14 02/21/2015 08957-Merr Destruction, 12/06/2014 52827-Pofk Destruction, 10-2409/20/2014 18862-Jrpu Destruction, 10-2406/21/2014 36481-Keyq Destruction, 10-2403/22/2014 93858-Thcx Destruction, 10-2412/13/2013 11493-Ezaf Destruction, 10-2409/13/2013 57212-Hwjx Destruction, 10-2406/28/2013 71548-Xkcl Destruction, 10-2404/03/2013 91267-Ikkm Destruction, 10-2401/23/2013 62335-Fehj Destruction, 10-2411/03/2012 41242-Lvev Destruction, 10-2406/02/2012 57383-Ovnt Destruction, 10-2410/01/2011 75005-Btnv Destruction, 10-2403/03/2012 68959-Zzrc Destruction, 10-2412/03/2011 26301-Aeqiplsz Plate 03/03/2012 41712-Opfnmdod Plate 12/03/2011 53535-Mkyzeyqw Plate 06/02/2012 95904-Rejztawe Plate 01/23/2013 66267-Tnorfwql Plate 04/03/2013 35721-Eyppqucu Plate 06/28/2013 09067-Nwhbtvvc Plate 09/13/2013 91998-Jtpmfiay Plate 12/13/2013 41964-Xtetguko Plate 03/22/2014 43796-Irpnrlta Plate 06/21/2014 02595-Gbgiqwen Plate 09/20/2014 23294-Vgmnxjoh Plate 12/06/2014 32590-Fcgqqqxk Plate 02/21/2015 89089-Eojyuqst Plate 05/13/2015 70223-Uqtlheav Plate 12/27/2017 11966-Aahsvjfh Plate 06/05/2019 70567-Zprmrdkp Plate 11/24/2018 76183-Wtuzzfvb Plate 03/09/2019 47711-Vjzazcgp Plate 08/25/2018 96410-Gutiieef Plate 09/18/2019 94363-Wahcuutc Plate 03/11/2020 88003-Hvcphici Plate 09/27/2017 15052-Ecpcjybk Plate 12/07/2016 57976-Jgkeshnb Plate 08/27/2016 90195-Elnwimpa Plate 06/01/2016 29641-Ugwbsmdc Plate 02/24/2016 22982-Ivhlghss Plate 12/02/2015 26223-Odiadjiz Plate 11/03/2012 39849-Iswvothl Plate 09/09/2015 90731-Dkoqvnon Plate 06/09/2021 19556-Ewxndysv Plate 06/13/2020 80114-Wqtqyoqj Plate 09/08/2021 97400-Cibfsqdy Plate 03/13/2021 99113-Ftmozvlq Plate 09/23/2020 67299-Dajwqxyb Plate 01/30/2022 02251-Gefibrpg Plate 06/22/2022 16105-Nhryvupn Plate 01/20/2024 74548-Lvkykran Plate 08/17/2024 55899-Jxyhrzkj Plate Each Additional 09/2022 31294-Wtazycud Plate Each Additional 04/2024 57321-Adefibxx Plate Each Additional 06060-Xdngkgzv Plate Each Additional 44886-Iazrimqd Plate Each Additional 12/2020 69436-Vmlbkpok Plate Each Additional 52436-Qrrnvkjt Plate Each Additional 97226-Gqydgyxo Plate Each Additional 07914-Dwsqmagh Plate Each Additional 65519-Hvgqyhbd Plate Each Additional 66363-Bmziltmh Plate Each Additional 58309-Yhpdqsul Plate Each Additional 87656-Dpdraunk Plate Each Additional 37111-Pwjbefee Plate Each Additional 83428-Qwukdvsl Plate Each Additional 06/2019 88391-Arbvkski Plate Each Additional 10/2019 63167-Ebqnbjzu Plate Each Additional 36452-Ltykkidf Plate Each Additional 84811-Lajghjlf Plate Each Additional 48920-Owtbxoyp Plate Each Additional 12/2014 26587-Urfatknh Plate Each Additional 79172-Nwcpvmjx Plate Each Additional 45537-Zuffkfei Plate Each Additional 08/2014 43268-Htulhqaz Plate Each Additional 08/2014 11293-Akwboqos Plate Each Additional 09/2014 42388-Rlnxauur Plate Each Additional 02/2014 47633-Tfdtmjdm Plate Each Additional 01/2013 83529-Deaokwrk Plate Each Additional 70564-Mdsbtnre Plate Each Additional 74885-Nmwkjvwm Plate Each Additional 81715-Icxnmhrr Plate Each Additional 41759-Vmgmktrc Plate Each Additional 70588- Debride <25 sq cm 06/13/2020 16896- Debride <25 sq cm 04/05/2023 28479- Debride <25 sq cm 03/15/2025 89737- Debride <25 sq cm 04/02/2025 82567- Debride <25 sq cm 04/30/2025 56813- Debride <25 sq cm 06/07/2025 57701- Debride <25 sq cm 06/18/2025 51583 I&D ABSCESS- SIMPLE,SINGLE 025 35244 I&D ABSCESS- SIMPLE,SINGLE 013 02407 I&D ABSCESS- SIMPLE,SINGLE 013 31030-WAMN SKIN LESIONS, OVER 4 01/24/20 13 96858-DEHR SKIN LESIONS, OVER 4 11/03/19 13 67423-WUCW SKIN LESIONS, OVER 4 04/03/20 13 79462-BLLE SKIN LESIONS, OVER 4 06/28/20 13 13563-GAXB SKIN LESIONS, OVER 4 09/13/20 13 74884-IRJA SKIN LESIONS, OVER 4 12/14/19 14 42386-UOFQ SKIN LESIONS, OVER 4 03/22/20 14 45719-JVXS SKIN LESIONS, OVER 4 06/21/20 14 38891-JULR SKIN LESIONS, OVER 4 09/20/20 14 67013-CANC SKIN LESIONS, OVER 4 12/06/19 15 42065-FIKL SKIN LESIONS, OVER 4 02/22/20 15 85508-XGJF SKIN LESIONS, OVER 4 05/13/20 15 01503-USQN SKIN LESIONS, OVER 4 06/13/20 20 37945-FRAG SKIN LESIONS, OVER 4 09/23/20 20 07113-NQBX SKIN LESIONS, OVER 4 03/11/20 20 76521-IJZD SKIN LESIONS, OVER 4 09/18/20 19 76295-SLCL SKIN LESIONS, OVER 4 03/09/20 19 82661-YHQL SKIN LESIONS, OVER 4 06/05/20 19 20740-MXMH SKIN LESIONS, OVER 4 11/24/19 19 47086-BRAE SKIN LESIONS, OVER 4 08/25/20 18 25047-MOTP SKIN LESIONS, OVER 4 12/28/19 18 93304-LPIB SKIN LESIONS, OVER 4 06/02/20 18 71962-LRNM SKIN LESIONS, OVER 4 09/27/20 17 12465-POGM SKIN LESIONS, OVER 4 06/24/20 17 36558-TCPZ SKIN LESIONS, OVER 4 12/07/19 17 02316-EQQK SKIN LESIONS, OVER 4 03/11/20 17 21939-WQAB SKIN LESIONS, OVER 4 08/27/20 16 63545-UBWF SKIN LESIONS, OVER 4 06/01/20 16 52204-SLTQ SKIN LESIONS, OVER 4 02/24/20 16 43755-DMPS SKIN LESIONS, OVER 4 12/02/19 16 23920-TUZP SKIN LESIONS, OVER 4 09/09/20 15 46716-ELKL SKIN LESIONS, OVER 4 03/15/20 25 39585-EGDA SKIN LESIONS, OVER 4 05/24/20 25 37569-CZMW SKIN LESIONS, OVER 4 08/17/20 24 52980-WRLK SKIN LESIONS, OVER 4 11/23/19 25 54825-MUIR SKIN LESIONS, OVER 4 05/11/20 24 95342-DBOF SKIN LESIONS, OVER 4 01/20/20 24 76424-WHWY SKIN LESIONS, OVER 4 10/21/19 24 13726-IWXJ SKIN LESIONS, OVER 4 04/05/20 23 72565-UFSL SKIN LESIONS, OVER 4 07/08/20 23 74327-RDOO SKIN LESIONS, OVER 4 12/29/19 23 78377-OBYM SKIN LESIONS, OVER 4 09/28/20 22 72587-BFVL SKIN LESIONS, OVER 4 06/22/20 22 61261-CBXI SKIN LESIONS, OVER 4 01/31/20 22 58687-MRSO SKIN LESIONS, OVER 4 09/08/20 21 18137-BDZB SKIN LESIONS, OVER 4 06/09/20 21 97577-VLLC SKIN LESIONS, OVER 4 12/02/19 21 50147-FRPG SKIN LESIONS, OVER 4 03/13/20 21 50696-DVXB SKIN LESIONS, 2 TO 4 06/02/20 12 43407-UBHX SKIN LESIONS, 2 TO 4 03/03/20 12 29903-YMRE SKIN LESIONS, 2 TO 4 12/03/19 12 77170-NKAT SKIN LESIONS, 2 TO 4 10/01/20 11 Next Appt Details Provider Name:Marychuy Kelley , 07/02/2025 08:00:00 AM, [address] [place], [address], Provider Name:Marychuy Kelley , 07/16/2025 08:00:00 AM, [address] [place], [address], Insurance Providers Payer Name Payer Address Payer Phone Subscriber Number Group Number Insured Name Patient Relationship to Insured Coverage Start Date Coverage End Date [facility] [address] [place] [address] [phone] [id number] Casey Ulrich Self - patient is the [...] History Reason Date(Month/Year) ER- blocked arteries 07/05 [facility] - chest pains 02/02 [facility]- Possible Heart Attack/Stress Anxiet y/Covid 07/31 [facility] Bladder [facility]- chest pain 10/31 [facility]- Pressure wound right ankle - saw levar bonilla [facility]- chest pain 10/2015
--- OUTSIDE RECORDS SUMMARY | 2025-06-19 16:39 | XMS_ITS | Patient Health Record ---
Author Organization [facility] Address [address] [place] [address] Care Team Providers Care X Ray Equipment Servicer Name Role Phone MARC HERNANDEZ Primary Care Provider Ernesto Beck [phone] Allergies No Known Allergies Reason For Referral [...] day(s) Active Ketoconazole 2 % 1 application [employer] ally Once a day for 14 day(s) [...] Problem Status W/U Status Risk Notes Problem 118679815 Encounter for screening for malignant neoplasm of colon (Z12.11) Active confirmed Problem 190197297 History of adenomatous polyp of colon (Z86.010) Active confirmed Problem 553182099 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 Problem 981435998828392 Preprocedural examination (Z01.818) Active confirmed Problem 980884846 History of colon cancer (Z85.038) Active confirmed Problem 41134369 Constipation, unspecified constipation type (K59.00) Active confirmed Problem Diverticulosis of colon (193781387) Diverticulosis of colon (K57.30) Active confirmed Problem 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) Active confirmed Vital Signs Temperature 97.9 degrees Fahrenheit 04/04/2025 Blood pressure diastolic 01 mm Hg 04/04/2025 Height 71.5 in 04/04/2025 Blood pressure systolic 001 mm Hg 04/04/2025 Weight 196 lbs 04/04/2025 BMI 26.95 kg/m2 04/04/2025 Procedures Procedure Date Ordered Date Performed Result Body Sit e COLONOSCOPY 04/04/2025 N/A Encounters Encounter Location Date Provider Diagnosis [facility] [address] [place] [address] 04/04/2025 Ernesto Wu History of adenomato us polyp of colon Z86.010 ; Irritable bowel syndrome K58.9 ; Encounter for screening for malignant neoplasm of colon Z12.11 ; History of colon cancer Z85.038 and Preprocedural examination Z01.818 [facility] [address] [place] [address] 09/12/2024 Ernesto Wu [facility] [address] [place] [address] 10/03/2024 Ernesto Wu [facility] [address] [place] [address] 01/30/2025 Ernesto Wu [facility] [address] [place] [address] 04/05/2025 Ernseto Wu [facility] [address] [place] [address] 05/07/2025 Ernesto Wu Assessments Encounter Date Diagnosis [...] procedure. He will be seen by his geriatric nurse prior to the procedure and I did [...] procedure. He will be seen by his geriatric nurse prior to the procedure and I did [...] procedure. He will be seen by his geriatric nurse prior to the procedure and I did advise him to let me know if anything changes in that regard such as having to undergo a cardiac catheterization or being started on any new medication, particularly any blood thinners. oJrdin was comfortable with this plan. Thank you [...] procedure. He will be seen by his geriatric nurse prior to the procedure and I did [...] procedure. He will be seen by his geriatric nurse prior to the procedure and I did [...] Provider Name:Ernesto Wu , 10/01/2025 07:30:00 AM, [address] [place] [address], [phone], Insurance Providers Payer Name Payer Address Payer Phone Subscriber Number Group Number Insured Name Patient Relationship to Insured Coverage Start Date Coverage End Date [facility] [address] [place], [place] [id number] MELISSA ELDER Self - patient is the insured Medical (General) History Medical History History ICD Code Denies PR,CVA,Lung disease,renal disease IDDM Pulmonary sarcoidosis- inactive Spherocytosis [...] surgery for stones with Jazlyn Liriano at [facility] Right colectomy 09/[address] 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
--- OUTSIDE RECORDS SUMMARY | 2025-06-19 16:39 | XMS_ITS | Clinical Summary ---
Author Organization [facility] [employer] [facility] Address [address] [place] [address] Phone Care Team Providers Care Red Mud Thickener Operator Name Role Phone Marc Will NP Primary Care Provider [phone] Allergies Active Allergy Reactions Criticality Noted Date [...] BULK, MISC 100 mg. Active levocarnitine HCl (UZBYDO-M-ETKSIU INE MISC) 500 mg. Active coenzyme Q-10 [...] 40 mg tabletIndication s:Coronary artery disease involving hamilton coronary artery of hamilton heart, unspecified whether angina present Take 1 [...] referral to Cardiology PVD (peripheral vascular disease) ([facility] V24) 05/21/2025 Encounters Date Type Department Care Team Description 06/13/2025 Telephone [facility] [address] [place] [phone] Gabriela Ang NP 06/01/2025 Telephone [facility] [address] [place] [address] Marc Hernandez MD 05/28/2025 3:00 PM EDT Office Visit [facility] [address] [place] [address] Marc Hernandez MD SOB (shortness of breath) (Primary Dx); Other chest pain; Coronary artery disease involving hamilton coronary artery of hamilton heart, unspecified whether angina present from Last 3 Months Medical History Medical History Date Comments BPH (benign prostatic hyperplasia) Urethral stricture Left foot drop Necrosis of right ureter Vitamin D deficiency Osteoarthritis Colon cancer (CMS/[facility] V24, CMS/[facility] V28) CKD (chronic kidney disease) Sarcoidosis [...] Description 07/11/2025 2:10 PM EDT Office Visit [facility] [address] [facility] [address] [place] [address] Gabriela Ang NP [address] [address] Health Maintenance Due Date Last Done Comments [...] GEMUSE QTc 436 ms GEMUSE P Wave [place] 52 degrees GEMUSE R [place] -25 degrees GEMUSE ECG Interpretation Sinus rhythm [...] GEMUSE from Last 3 Months Insurance MEDICARE [facility] Care Teams Red Mud Thickener Operator Relationship Specialty Start Date End Date Marc Will NP [address] [place] [address] PCP - General Family Medicine 05/28/25
--- OUTSIDE RECORDS SUMMARY | 2025-06-19 16:39 | XMS_ITS | Clinical Summary ---
Author Organization [facility] Address [address] [place] [address] Phone Care Team Providers Care Microbiology Manager Name Role Phone Stuart Will [employer] SALES Primary Care Provider + Social History Tobacco [...] Insurance MEDICARE A MEDICARE A MEDICARE A [facility] MEDICARE A MEDICARE A [facility] MEDICARE A [facility] MEDICARE A [facility] MEDICARE A [facility] MEDICARE A Care Teams Microbiology Manager Relationship Specialty Start Date End Date Stuart Will NP [facility] [place] [address] PCP - General Nurse Practitioner 04/27/24 Additional Source Comments The information contained in this document represents components of the legal health record. It is not the complete legal health record.[facility]
--- OUTSIDE RECORDS SUMMARY | 2025-06-19 16:39 | XMS_ITS | Encounter Summary ---
Author Organization [facility] Address [address] [place] [address] Phone Care Team Providers Care Collar Turner Name Role Phone Pcp, Unknown Primary Care Provider Stuart Carrasco [employer] SALES REPRESENTATIVE Primary Care Provider + Encounter Details Date Type Department Care Team (Late st Contact Info) Description 01/10/2021 Transcribe Orders [facility] [address] [address] [address] [place] [id number] [email or web address] History Tobacco Use Types [...] on filedocumented in this encounter Care Teams Collar Turner Relationship Specialty Start Date End Date Pcp, Unknown PCP - General 11/20/20 04/26/24 Stuart Will NP [address] [facility] [place] [address] PCP - General Nurse Practitioner 04/27/24 documented as of this encounter Additional Source Comments The information contained in this document represents components of the legal health record. It is not the complete legal health record.[facility]
--- OUTSIDE RECORDS SUMMARY | 2025-06-19 16:40 | XMS_ITS | Encounter Summary ---
Author Organization [facility] Address [address] [place] [address] Care Team Providers Care Associate Professor Of Library Science Name Role Phone Stuart Will NP Primary Care Provider [phone] Encounter Details Date Type Department Care Team ([facility] Contact Info) Description 06/13/2025 Telephone [facility] [address] [facility] [address] [place] [phone] Gabriela Ang NP [address] [place] [address] Social History Tobacco Use Types Packs/Day Years [...] Description 07/11/2025 2:10 PM EDT Office Visit [facility] [address] [place] [address] Gabriela Ang NP [address] [place] [address] documented as of this encounter Visit Diagnoses Not on filedocumented in this encounter Care Teams Associate Professor Of Library Science Relationship Specialty Start Date End Date Stuart Will NP [address] [place] [address] PCP - General Family Medicine 05/28/25 documented as of this encounter
--- OUTSIDE RECORDS SUMMARY | 2025-06-19 16:40 | XMS_ITS | Encounter Summary ---
Author Organization [facility] Address [address] [place] [address] Care Team Providers Care Waitress Name Role Phone Stuart Will NP Primary Care Provider [phone] Reason for Visit * Reason Onset Date Comments Appointment 06/01/2025 Coronary CTA Encounter Details Date Type Department Care Team ([facility] Contact Info) Description 06/01/2025 Telephone [facility] Cardiology [facility] [address] [place] [address] [place] [id number] Stuart Hernandez MD [address] [place] [address] Dr [address] [place] [address] Social History Tobacco Use Types Packs/Day Years [...] scan on 06/21/25, 2:00pm arr., 3:30pm scan, @[facility]. Order and ov note faxed. Letter and lab slip mailed. * Meli Alarcon - 06/01/2025 11:25 AM EDT Order, demos and ov note have been faxed to [facility] scheduling to schedule pt for a Coronary CTA scan. Waiting for appointment. documented in this encounter Plan of Treatment Upcoming Encounters Date Type Department Care Team (Late st Contact Info) Description 07/11/2025 2:10 PM EDT Office Visit [facility] - [address] [place] [address] Gabriela Ang NP [address] [place] [address] Scheduled Orders Name Type Priority Associated Diagnoses Orde r Schedule Basic metabolic panel Lab Routine Coronary artery disease involving stebbins coronary artery of stebbins heart, unspecified whether angina present Other chest pain 1 Occurrences starting 06/01/2025 until 06/01/2026 documented as of this encounter Visit Diagnoses Diagnosis Coronary artery disease involving stebbins coronary artery of stebbins heart, unspecified whether angina present- Primary Other chest pain documented in this encounter Care Teams Waitress Relationship Specialty Start Date End Date Stuart Will NP [address] [place] [id number] PCP - General Family Medicine 05/28/25 documented as of this encounter
--- OUTSIDE RECORDS SUMMARY | 2025-06-19 16:40 | XMS_ITS | Clinical Summary ---
Author Organization [facility], Address [address] [place] [address] [place] [address] Phone Care Team Providers Care Solvent Plant Operator Name Role Phone Stuart Will NP Primary Care Provider [phone] Allergies Active Allergy Reactions Criticality Noted Date [...] patient's age to complete this topic Insurance [place] [address] Care Teams Solvent Plant Operator Relationship Specialty Start Date End Date Stuart Will NP [facility] [place] [address] PCP - General Nurse Practitioner 12/06/20
== END 2025-06-19 15:38 | disposition home or self-care (01) ==
LOC: HO.HMCC 14:00
PROVIDERS: PCP Nurse Practitioner Family; Visit Provider Nurse Practitioner Family
DX: R06.02 Shortness of breath (principal); F41.9 Anxiety disorder, unspecified; F32.A Depression, unspecified; R07.9 Chest pain, unspecified

== ENCOUNTER → 2025-06-19 13:59 | Outpatient (BNVA) | payer BC, SELFPAY | PROVIDERS: PCP Nurse Practitioner Family; Visit Provider Nurse Practitioner Family | DX: R07.89 Other chest pain (principal); R06.02 Shortness of breath; F41.9 Anxiety disorder, unspecified; F32.A Depression, unspecified; R07.9 Chest pain, unspecified | CPT/HCPCS: 96127 ==

== ENCOUNTER 2025-07-23 14:17 | Outpatient (AMB) | payer BC, SELFPAY ==
[2025-07-23 14:20] VITALS: BP 110/70; PULSE 80; O2SAT 97; BMI 26.8
--- NOTE | 2025-07-23 14:20 | MHC.OFFWIV ---
Intake Vital Signs 07/23/25 14:20 Height 5 ft 11 in Weight 192 lb BMI 26.8 BP 110/70 Blood Pressure Location Lt brachial Position Sitting Pulse 80 Pulse Source Pulse Oximeter Pulse Oximetry (%) 97 Intake Visit Reasons: EP-chest open wound cystic acne Patient Tobacco Use Status: Never used Tobacco Allergies penicillamine Allergy (Unknown, Verified 07/23/25 14:21) unknown Do you need a note to return to daycare/school/sports/work: No HPI HPI Comments History of Present Illness Details 80 y/o Male patient who presents to the walk in clinic with c/o wound right upper chest wall for few days now. Reports that the wound is open and draining out Pus (yellowish-whitish). Reports tenderness and redness around the area. Reports that he used to get Cystic Acne as a child and this looks like it, but only this wound is infected. Denies fevers, chills, nausea or vomiting. 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 Vitamin D deficiency Cholecystectomy planned Osteoarthritis History of colon cancer CKD (chronic kidney disease) Sarcoidosis Partial nontraumatic amputation of right foot PVD (peripheral vascular disease) Diabetic retinopathy Spherocytosis Skin cancer Peripheral neuropathy Spinal stenosis Renal stones Pulmonary sarcoidosis Diabetes Surgical History History of amputation of foot History of ureter repair H/O splenectomy S/P ureteral reimplantation History of surgical removal of pilonidal cyst History of tonsillectomy and adenoidectomy H/O right hemicolectomy Status post laser lithotripsy of ureteral calculus Hx of cholecystectomy Hx of colonoscopy Family History Mother Thyroid cancer Other Mental health disorder Social History Household Members: Friend(s) Housing: House Are you a primary overnight caregiver to a significant other at home: No Do you presently have visiting nurse or other home services: No Alcohol intake: never Patient Tobacco Use Status: Never used Tobacco e-Cigarette/Vaping Use: Never Used Second Hand Smoke Exposure: No Advance Directives Date on File: 12/02/23 service: No Current occupational status: employed and retired Cognitive needs: No Hearing needs: No Vision needs: No Review of Systems Const All systems reviewed & are unremarkable except as noted in HPI and below Physical Exam Vital Signs: Last Vital Signs Pulse 80 07/23/25 14:20 BP 110/70 07/23/25 14:20 Pulse Ox 97 07/23/25 14:20 BMI result Body Mass Index 26.8 Const General: no acute distress and poor hygiene Nutritional Appearance: overweight Orientation/consciousness: patient oriented x3 Limitations: ambulation with walker Chest Chest/axillae images:  1. Erythema, Indurated, Warm and tender to touch. Open Wound actively draining Pus. Skin Other: Neuro General: patient oriented x3 Psych Speech and movement: Normal speech and movement present Assessment & Plan Assessment & Plan (1) Abscess of skin and subcutaneous tissue: Code(s): L02.91 - Cutaneous abscess, unspecified Qualifiers: Site of cutaneous abscess: trunk Site of cutaneous abscess of trunk: chest wall Qualified Code(s): L02.213 - Cutaneous abscess of chest wall Plan: Wound actively draining. Cleaned the wound and squeezed out the remaining drainage. Dressed the wound with wet to dry 4x4 gauzes. to promote further draining. Ordered Bactrim for 10 days. RTC in 72 hours for wound check. Medications: New sulfamethoxazole-trimethoprim 800-160 mg (Bactrim DS) 1 tab PO BID 20 tabs 0RF 10 days L02.91 - Cutaneous abscess, unspecified Coding Level of Care Code Est Pt Level 4 (92533) Diagnoses Cutaneous abscess of chest wall L02.213 Site of cutaneous abscess: trunk Site of cutaneous abscess of trunk: chest wall Time Spent (min) 20
== END 2025-07-23 15:09 | disposition home or self-care (01) ==
PROVIDERS: PCP Nurse Practitioner Family; Visit Provider Nurse Practitioner Family
DX: L02.213 Cutaneous abscess of chest wall (principal)

== ENCOUNTER 2025-07-24 13:21 | Outpatient (AMB) | payer BC, SELFPAY ==
--- OUTSIDE RECORDS SUMMARY | 2024-06-21 06:30 | XMS_ITS ---
Author Organization [facility] Address [address] [place] [address] Care Team Providers Care Print Color Operator Name Role Phone MARC HERNANDEZ Primary Care Provider Ernesto Beck [phone] REASON FOR VISIT screening, hx polyps,hx colon ca Encounters Encounter Location Date Provider Diagnosis [facility] [place] [address] [place] [phone] 06/21/2024 Ernesto Wu Plan Of Treatment Next Appt Details Provider Name:Ernesto Wu , 10/01/2025 07:30:00 AM, [address] [place] [address], [phone], Progress Notes * GILBERTMELISSA KDOB:[birth year] (80 yo M)Acc No.[id number]:06/21/2024 COLON WITH MAC Patient: MELISSA CRUZ Provider: Sheba Wu MD :1945 A ge:79 Y S ex:Male Date:06/21/2024 Address:[address] [place], [place] [phone] Pcp:MARC HERNANDEZ Subjective: * Chief Complaints: * [...] 06/21/2024 Generated for Alfredo logan/Lila/Zo on: 1 04:08 PM EDT
--- OUTSIDE RECORDS SUMMARY | 2024-10-09 03:30 | XMS_ITS ---
Author Organization [facility] Address [address] [place] [address] Care Team Providers Care Senior Case Manager Name Role Phone MARC HERNANDEZ Primary Care Provider Ernesto Beck [phone] REASON FOR VISIT screening, hx polyps,hx colon ca Encounters Encounter Location Date Provider Diagnosis [facility] [address] [place] [id number] 10/09/2024 Ernesto Wu Plan Of Treatment Next Appt Details Provider Name:Ernesto Wu , 10/01/2025 07:30:00 AM, [address] [place] [address], [id number], Progress Notes * KENANMELISSA FUNES KDOB:[birth year] (80 yo M)Acc No.[id number]:10/09/2024 COLON WITH MAC Patient: MELISSA CRUZ Provider: Sheba Wu MD :1945 A ge:79 Y S ex:Male Date:10/09/2024 Address:[address] [place], [place] [phone] Pcp:MARC HERNANDEZ Subjective: * Chief Complaints: * [...] 1 Generated for Alfredo logan/Lila/Zo on: 1 04:08 PM EDT
--- OUTSIDE RECORDS SUMMARY | 2025-06-28 10:30 | XMS_ITS ---
Author Organization [facility] Address [address] [place] [address] Care Team Providers Care Peoplesoft Hcm Developer Name Role Phone Stuart Lozano Primary Care Provider Unav ailable Shane Kelleymie Unavailable [phone] Encounters Encounter Location Date Provider Diagnosis [facility] [address] [place] [address] 06/28/2025 Marychuy Kelley Plan Of Treatment Next Appt Details Provider Name:Marychuy Kelley , 08/16/2025 08:00:00 AM, [address] [place], [address], Progress Notes * Casey SEWELL KDOB:[birth year] (80 yo M)Acc No.[id number]:06/28/2025 Progress Note Patient: Casey CRUZ Provider: Karine Kelley DPM :1945 A ge:80 Y S ex:Male Date:06/28/2025 Address:[address] [place] [address] laury [id number] Pcp:IVORY Mattson Subjective: * Chief Complaints: * [...] 06/28/2025 Generated for Alfredo logan/Lila/Zo on: 1 04:08 PM EDT
--- OUTSIDE RECORDS SUMMARY | 2025-07-20 06:30 | XMS_ITS ---
Author Organization [facility] Address [address] [place] [address] Care Team Providers Care Window Air Conditioner Installer Name Role Phone MARC HERNANDEZ Primary Care Provider Ernesto Beck [phone] REASON FOR VISIT screening,hx colon ca, hx adenomatous polyp colon Encounters Encounter Location Date Provider Diagnosis [facility] [place] [address] [place] [phone] 07/20/2025 Ernesto Wu Plan Of Treatment Next Appt Details Provider Name:Ernesto Wu , 10/01/2025 07:30:00 AM, [address] [place] [address], [phone], Progress Notes * MELISSA HUNT KDOB:[birth year] (80 yo M)Acc No.[id number]:07/20/2025 COLON WITH MAC Patient: Radha HULL MELISSA Jimenez Provider: Sheba Wu MD :1945 A ge:80 Y S ex:Male Date:07/20/2025 Address:[address] [place], [place] [phone] Pcp:MARC HERNANDEZ Subjective: * Chief Complaints: * [...]
--- NOTE | 2025-07-24 13:31 | MHC.OFFWIV ---
Intake Vital Signs 07/24/25 13:33 Height 5 ft 11 in Weight 194 lb BMI 27.1 BP 112/60 Blood Pressure Location Lt brachial Position Sitting Respiration 16 Pulse 88 Pulse Source Pulse Oximeter Temp 98.2 F Temp Source Oral Pulse Oximetry (%) 100 Oxygen Delivery Method Room Air Intake Visit Reasons: ep complications from cyst from yesterday visit Patient Tobacco Use Status: Never used Tobacco Accompanied by: Self / Same As Patient Allergies penicillamine Allergy (Unknown, Verified 07/24/25 13:37) unknown HPI HPI Comments History of Present Illness Details History of Present Illness - The patient is a 80-year-old male presenting with complications from an abscess. - The abscess developed spontaneously and was initially managed with a hydrocolloid patch, which was later advised against. - The patient reports that the abscess began to scab over after the patch fell off, leading to concerns about proper drainage. - The abscess has been draining without associated symptoms such as fever or malodorous discharge. - Antibiotics have been prescribed yesterday, has been taking them, Bactrim. Physical Exam General: Cooperative, healthy appearing, comfortable, no acute distress and well developed Orientation: Patient oriented x3 Limitations: No limitations Head: Normal to inspection Ears: Hearing grossly normal bilaterally Nose: Normal External nose present Face and sinus: Normal facial exam Eyes: Appearance normal, both eyes and all related structures Neck: Normal visual inspection and Yes full ROM Respiratory: Normal respiratory effort and able to speak in complete sentences. Skin: Abscess present on upper right chest wall, draining, no warmth, able to easily express 2-3mL purulent drainage Neuro: Patient oriented x3 Extremities: Normal to inspection Review of Systems - General: Denies fever - Integumentary: Reports abscess drainage, denies malodorous discharge All systems reviewed and are unremarkable except as noted in HPI [facility] Medical History (Updated 07/24/25 @ 13:53 by Chelsea Simons PA-C) Abscess of skin and subcutaneous tissue CAD (coronary artery disease) Neuropathic ulcer of right foot BPH (benign prostatic hyperplasia) Urethral stricture Left foot drop 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 Vitamin D deficiency Cholecystectomy planned Osteoarthritis History of colon cancer CKD (chronic kidney disease) Sarcoidosis Partial nontraumatic amputation of right foot PVD (peripheral vascular disease) Diabetic retinopathy Spherocytosis Skin cancer Peripheral neuropathy Spinal stenosis Renal stones Pulmonary sarcoidosis Diabetes Surgical History History of amputation of foot History of ureter repair H/O splenectomy S/P ureteral reimplantation History of surgical removal of pilonidal cyst History of tonsillectomy and adenoidectomy H/O right hemicolectomy Status post laser lithotripsy of ureteral calculus Hx of cholecystectomy Hx of colonoscopy Family History Mother Thyroid cancer Other Mental health disorder Social History Household Members: Friend(s) Housing: House Are you a primary patient care technician to a significant other at home: No Do you presently have visiting nurse or other home services: No Alcohol intake: never Patient Tobacco Use Status: Never used Tobacco e-Cigarette/Vaping Use: Never Used Second Hand Smoke Exposure: No Advance Directives Date on File: 12/02/23 service: No Current occupational status: employed and retired Cognitive needs: No Hearing needs: No Vision needs: No Physical Exam Vital Signs: Last Vital Signs Temp 98.2 F 07/24/25 13:33 Pulse 88 07/24/25 13:33 Resp 16 07/24/25 13:33 BP 112/60 07/24/25 13:33 Pulse Ox 100 07/24/25 13:33 Oxygen Delivery Method Room Air 07/24/25 13:33 BMI result Body Mass Index 27.1 Office Procedures I&D Drain Details: Incision unnecessary as abscess was draining purulent fluid. Able to easily manually express 2-3mL of purulent discharge. Covered with bandage. 22232-[id number] of Skin Abscess, simple All charges added?: Procedure code (CPT) selection complete Assessment & Plan Assessment & Plan (1) Abscess: Code(s): L02.91 - Cutaneous abscess, unspecified Plan: Plan Patient was informed and verbally consented to the use of an ambient scribe for clinic note documentation during this visit. 1. Abscess - Continue warm compresses 4-5 times per day to facilitate drainage. - Encourage manual expression of the abscess to promote drainage. - Continue antibiotic therapy, as previously prescribed. - Monitor for signs of systemic infection or worsening symptoms. Orders: Orders AMB Incision & Drainage Today L02.91 - Cutaneous abscess, unspecified Coding Level of Care Code Est Pt Level 3 (14629) Diagnoses Abscess L02.91 CPT Codes I&D Drain - Drain 1: 20039-Ihbkqcsz of Skin Abscess, simple ([id number])
[2025-07-24 13:33] VITALS: BP 112/60; PULSE 88; RESP 16; TEMP 36.8; O2SAT 100; BMI 27.1
--- OUTSIDE RECORDS SUMMARY | 2025-07-24 16:08 | XMS_ITS | Patient Health Record ---
Author Organization [facility] Address [address] [place] [address] Care Team Providers Care Advertising Copywriter Name Role Phone MARC HERNANDEZ Primary Care Provider Ernesto Beck [phone] Allergies No Known Allergies Reason For Referral No Information Medications Medication SIG (Take, Route, Frequency, Duration) Notes Start Date End Date Status Alpha Lipoic Acid 200 MG 1 capsule Orall y Once a day; Duration: 30 day(s) 04/04/2025 Active BD Insulin Syringe U/F 30G X 1/2 1 ML USE TO INJECT INSULIN TWICE PER DAY; Duration: 90 Active Acetyl L-Carnitine 04/04/2025 Active CoQ-10 100 MG as directed Orally 04/04/2025 Active Vitamin D 1000 UNIT 1 tablet Orally Once a day; Duration: 30 day(s) Active Ketoconazole 2 % 1 application Pediatric Critical Care Nurse ally Once a day; Duration: 14 day(s) 04/04/2025 Active Bromaline 04/04/2025 Active Zinc 50 MG 1 capsule Orally Onc e a day; Duration: 30 day(s) Active Vitamin A 2400 MCG (8000 UT) 2 capsules with food or milk Orally Once a day; Duration: 30 day(s) 04/04/2025 Active Curcumin 95 500 MG as directed Orally 04/04/2025 Active Vitamin C 500 MG as directed Orally 04/04/2025 Active Vitamin E 100 UNIT 1 tablet Orally Once a day; Duration: 30 day(s) 04/04/2025 Active Timolol Maleate 0.5 % PLACE ONE DROP INT O BOTH EYES TWICE A DAY Ophthalmic; Duration: 56 Active Ginkoba 40 MG as directed Orally 04/04/2025 Active Latanoprost 0.005 % APPLY ONE DROP TO EA CH EYES IN THE EVENING Ophthalmic; Duration: 90 Active Berberine Chloride 500 MG as directed Orally 04/04/2025 Active HumuLIN N 100 UNIT/ML 15-20 units as dir ected Subcutaneous BID Active Aspirin 81 81 MG 1 tablet Orally Once a day; Duration: 30 day(s) 04/04/2025 Active Vitamin B Complex - as directed Orally o nce a day Active Ibuprofen PRN Not-Taking Zinc 100 MG 1 tablet Orally Once a day; Duration: 30 day(s) 04/04/2025 Active Immunizations Vaccine Route [...] Problem Status W/U Status Risk Notes Problem Screening for malignant neoplasm of colon (724504502) Encounter for screening for malignant neoplasm of colon (Z12.11) Active confirmed Problem History of adenomatous polyp of colon (192915191) History of adenomatous polyp of colon (Z86.010) Active confirmed Problem Malignant neoplasm of transverse colon (823347908) 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 Problem Preprocedural examination (760961343841408) Preprocedural examination (Z01.818) Active confirmed Problem History of malignant neoplasm of colon (093564639) History of colon cancer (Z85.038) Active confirmed Problem Constipation (19374276) Constipation, unspecified constipation type (K59.00) Active confirmed Problem Diverticulosis of colon (070400783) Diverticulosis of colon (K57.30) Active confirmed Problem History of gastrointestinal tract bypass (252807327) Hx of Billroth II operation (Z98.0) Active confirmed Vital Signs Temperature 97.9 degrees Fahrenheit 04/04/2025 Blood pressure diastolic 01 mm Hg 04/04/2025 Height 71.5 in 04/04/2025 Blood pressure systolic 001 mm Hg 04/04/2025 Weight 196 lbs 04/04/2025 BMI 26.95 kg/m2 04/04/2025 Procedures Procedure Date Ordered Date Performed Result Body Sit e COLONOSCOPY 04/04/2025 N/A Encounters Encounter Location Date Provider Diagnosis [facility] [address] [place] [phone] 04/04/2025 Ernesto Wu History of adenomato us polyp of colon Z86.010 ; Irritable bowel syndrome K58.9 ; Encounter for screening for malignant neoplasm of colon Z12.11 ; History of colon cancer Z85.038 and Preprocedural examination Z01.818 [facility] [address] [place] [phone] 09/12/2024 Ernesto Wu [facility] [address] [place] [phone] 10/03/2024 Ernesto Wu [facility] [address] [place] [phone] 01/30/2025 Ernesto Wu [facility] [address] [place] [phone] 04/05/2025 Ernesto Wu [facility] [address] [place] [phone] 05/07/2025 Ernesto Wu Assessments Encounter Date Diagnosis [...] procedure. He will be seen by his biological engineer prior to the procedure and I did [...] procedure. He will be seen by his biological engineer prior to the procedure and I did [...] procedure. He will be seen by his biological engineer prior to the procedure and I did [...] procedure. He will be seen by his biological engineer prior to the procedure and I did [...] procedure. He will be seen by his biological engineer prior to the procedure and I did [...] Provider Name:Ernesto Wu , 10/01/2025 07:30:00 AM, [address] [place] [address], [phone], Insurance Providers Payer Name Payer Address Payer Phone Subscriber Number Group Number Insured Name Patient Relationship to Insured Coverage Start Date Coverage End Date [facility] [address] [place], [place] [id number] [phone] [id number] MELISSA ELDER Self - patient is the insured Medical (General) History Medical History History ICD Code Denies CA,CVA,Lung disease,renal disease IDDM Pulmonary sarcoidosis- inactive Spherocytosis [...] surgery for stones with Jazlyn Liriano at [facility] Right colectomy 09/[address] 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
--- OUTSIDE RECORDS SUMMARY | 2025-07-24 16:08 | XMS_ITS | Encounter Summary ---
Author Organization [facility] Address [address] [place] [address] Phone Care Team Providers Care Saddle Cutter Name Role Phone Pcp, Unknown Primary Care Provider Stuart Carrasco DURABLE MEDICAL EQUIPMENT REPAIRER Primary Care Provider + Encounter Details Date Type Department Care Team (Late st Contact Info) Description 01/10/2021 Transcribe Orders [facility] [address] [address] [address] [place] [phone] [email or web address] Social History Tobacco Use Types [...] on filedocumented in this encounter Care Teams Saddle Cutter Relationship Specialty Start Date End Date Pcp, Unknown PCP - General 11/20/20 04/26/24 Stuart Will NP [address] [place] [address] PCP - General Nurse Practitioner 04/27/24 documented as of this encounter Additional Source Comments The information contained in this document represents components of the legal health record. It is not the complete legal health record.[facility]
--- OUTSIDE RECORDS SUMMARY | 2025-07-24 16:09 | XMS_ITS | Clinical Summary ---
Author Organization [facility] Address [address] [place] [phone] Phone Care Team Providers Care Embossing Press Operator Name Role Phone Stuart Will PASTEURIZING SUPERVISOR Primary Care Provider + Social History Tobacco [...] VACCINE (1 - 1-dose 75+ series) 2021 INFLUENZA VACCINE (#1) 2025 COVID-19 VACCINE (2024-2 6 season) 2025 Adult Td,Tdap Booster 11/11/2028 11/11/2018 HEPATITIS [...] Insurance MEDICARE A MEDICARE A MEDICARE A [facility] MEDICARE A MEDICARE A [facility] MEDICARE A [facility] MEDICARE A [facility] MEDICARE A [facility] MEDICARE A Care Teams Embossing Press Operator Relationship Specialty Start Date End Date Stuart Will NP [facility] [place] [address] PCP - General Nurse Practitioner 04/27/24 Additional Source Comments The information contained in this document represents components of the legal health record. It is not the complete legal health record.[facility]
--- OUTSIDE RECORDS SUMMARY | 2025-07-24 16:09 | XMS_ITS | Clinical Summary ---
Author Organization [facility], Address [address] [place] [address] [place] [address] Phone Care Team Providers Care Brand Planner Name Role Phone Stuart Will NP Primary Care Provider [phone] Allergies Active Allergy Reactions Criticality Noted Date [...] 01/06/2022 Acquired clubfoot of right foot 01/06/2022 Hammer toe 01/06/2022 Amputated foot 01/06/2022 Ankle ulcer 01/06/2022 [...] patient's age to complete this topic Insurance [address] [address] Care Teams Brand Planner Relationship Specialty Start Date End Date Stuart Will NP [address] [place] [address] PCP - General Nurse Practitioner 12/06/20
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
--- OUTSIDE RECORDS SUMMARY | 2025-07-24 16:09 | XMS_ITS | Clinical Summary ---
Author Organization [facility] Address [address] [place] [phone] Phone Care Team Providers Care Cover Remover Name Role Phone Marc Will NP Primary Care Provider [phone] Allergies Active Allergy Reactions Criticality Noted Date Comments Penicillins 05/28/2025 Medications insulin NPH, Isophane, (HumuLIN N) 100 unit/mL injection Inject 15 Units under the skin at bedtime. Vials should be rolled between palms of hands ten times prior to each use. Active latanoprost (XALATAN) 0.005 % ophthalmic solution 1 drop at bedtime. Active ascorbic acid (VITAMIN C) 500 mg CR capsule Take 1 capsule (500 mg total) by mouth 1 (one) time each day. Active B complex tablet Take 1 tablet by mouth 1 (one) time each day. Active levocarnitine HCl (SQJDBP-U-JYEQM PRIMITIVO MISC) 500 mg. Active dihydroberberin e (BERBERINE ES-5 ORAL) Take by mouth. Acti ve zinc gluconate 50 mg tablet Take 1 tablet (50 mg total) by mouth 1 (one) time each day. Active aspirin 81 mg EC tablet Take 1 tablet (81 mg total) by mouth 1 (one) time each day. Active bromelains 500 mg tablet Take by mouth. Activ e vitamin E acetate (VITAMIN E ORAL) Take 268 mg by mouth. Active TURMERIC ORAL Take 500 mg by mouth. Active ivermectin (STROMECTOL) 3 mg tablet Take 1 tablet (3 mg total) by mouth if needed (1 tabletg as needed). Active dorzolamide HCl/PF (DORZOLAMIDE, PF, OPHT) Administer into affected eye(s) 2 (two) times a day. Active rosuvastatin (CRESTOR) 10 mg tablet Take 1 tablet (10 mg total) by mouth 1 (one) time each day. 30 each 11 5 026 Active dorzolamide-peace oloL (COSOPT) 22.3-6.8 mg/mL ophthalmic solution 1 drop 2 (two) times a day. Discontinu ed(Discont inued by another clinician) mv-mins/folic/l ycopene/ginkgo (MENS 50+ DAILY FORMULA,GINGKO, ORAL) Take by mouth. Discontinu ed(Discont inued by another clinician) MAGNESIUM MALATE, BULK, MISC 100 mg. Discontinu ed(Discont inued by another clinician) coenzyme Q-10 30 mg capsule Take 15 mg by mouth 1 (one) time each day. Discontinu ed(Discont inued by another clinician) cholecalciferol , vitD3,/vit K2 (vitamin D3-vitamin K2) 250 mcg (10,000 unit)-45 mcg capsule Take by mouth. Discontinu ed(Discont inued by another clinician) vitamin A acetate 3,000 mcg (10,000 unit) tablet, sublingual Place 1,000 mg under the tongue. Discontinu ed(Discont inued by another clinician) atorvastatin (LIPITOR) 40 mg tabletIndicatio ns:Coronary artery disease involving [place] coronary artery of [place] heart, unspecified whether angina present Take 1 tablet (40 mg total) by mouth 1 (one) time each day. 30 each 11 5 Discontinu ed(Discont inued by another clinician) Active Problems Problem Noted Date Diagnosed Date Pure hypercholesterolemia 07/11/2025 Assessment & Plan (07/11/2025 3:05 PM EDT): He has some myalgia on the atorvastatin, but agrees to try crestor 10mg once a day. He will let me know if he has any concerning symptoms. SOB (shortness of breath) 05/21/2025 Overview (07/11/2025): - Seen multiple times in the [facility] ER for breathlessness without rising cardiac markers -CT chest at [facility] showed severe coronary artery calcifications - Patient declined stress testing due to negative prior experience with a pharmacologic nuclear stress test. -Cardiac catheterization 06/13/2025 showed left main minimal luminal irregularities, mid LAD mid subsection 30% stenosis, proximal LAD ostial 20% stenosis, left circumflex with minimal luminal irregularities, and RCA normal. There is no significant gradient across his aortic valve on pullback Assessment & Plan (07/11/2025 3:07 PM EDT): Thankfully, and somewhat surprisingly, he did not have an significant obstructive CAD on his recent cath. He does have significant CAC on his CT chest. We discussed how this is related to longstanding inflammation and elevated cholesterol coupled with his diabetes. Over time, his body has calcified the cholesterol plaque and we can see that on his CT scan. We do recommend asa and statins. He plans to see pulmonology in work up for his shortness of breath. Other chest pain 05/21/2025 Assessment & Plan [...] referral to Cardiology PVD (peripheral vascular disease) ([facility] V24) 05/21/2025 Resolved Problems Problem Noted Date Diagnosed Date Resolved Date CAD (coronary artery disease) 07/11/2025 07/11/2025 Encounters Date Type Department Care Team Description 07/11/2025 2:10 PM EDT Office Visit [facility] [address] [place] [id number] Gabriela Ang NP SOB (shortness of breath) (Primary Dx); Pure hypercholesterolemia 06/13/2025 Telephone [facility] [address] [place] [phone] Gabriela Ang NP 06/01/2025 Telephone [place] [address] [place] [address] Marc Hernandez MD 05/28/2025 3:00 PM EDT Office Visit [address] [place] [phone] Marc Hernandez MD SOB (shortness of breath) (Primary Dx); Other chest pain; Coronary artery disease involving [place] coronary artery of [place] heart, unspecified whether angina present from Last 3 Months Surgical History Surgery Date Site/Laterality Comments CARDIAC CATH DONE ON 06/13/2025 AT [facility] IDICATIONS: Chest pain. Medical History Medical History Date Comments BPH (benign prostatic hyperplasia) Urethral stricture Necrosis of right ureter Vitamin D deficiency Osteoarthritis Colon cancer ([facility]/HCC V24, CMS/HCC V28) CKD (chronic kidney disease) Sarcoidosis Neuropathic ulcer of right foot ([facility]/HCC V24, [facility] V28) Left foot drop Social History Tobacco Use Types Packs/Day Years [...] Sign Reading Time Taken Comments Blood Pressure 116/60 07/11/2025 2:31 PM EDT Pulse 86 07/11/2025 2:31 PM EDT Temperature - - Respiratory Rate - - Oxygen Saturation 99% 07/11/2025 2:31 PM EDT Inhaled Oxygen Concentration - - Weight 88 kg (194 lb) 07/11/2025 2:31 PM EDT Height 180.3 cm (5' 11 ) 05/28/2025 2:51 PM EDT Body Mass Index 27.06 05/28/2025 2:51 PM EDT Plan of Treatment Health Maintenance Due Date Last Done Comments Diabetes: Annual GFR (Glomerular Filtration Rate) 1945 HIB Vaccines (1 of 1 - Risk 1-dose series) 08[birth year]30/1946 Meningococcal ACWY Vaccine (1 - Risk 2-dose series) 1948 Diabetes: Annual Foot Exam 1956 Diabetes: Annual Retina Eye Exam 1955 Meningococcal B Vaccine (1 of 4 - Increased Risk) 1956 Zoster Vaccines (1 [...] BMP Blood Test 05/28/2025 COVID-19 Vaccine ( season) 2025 Influenza Vaccine (#1) 2025 09/19/2018 [...] GEMUSE QTc 436 ms GEMUSE P Wave [place] 52 degrees GEMUSE R [place] -25 degrees GEMUSE ECG Interpretation Sinus rhythm [...] GEMUSE from Last 3 Months Insurance MEDICARE [facility] Care Teams Cover Remover Relationship Specialty Start Date End Date Marc Will NP [address] [place] [address] PCP - General Family Medicine 05/28/25
== END 2025-07-24 14:32 | disposition home or self-care (01) ==
PROVIDERS: PCP Nurse Practitioner Family; Visit Provider Physician Assistant
DX: L02.91 Cutaneous abscess, unspecified (principal)

== ENCOUNTER 2025-07-30 15:51 | Outpatient (AMB) | payer BC, SELFPAY ==
--- OUTSIDE RECORDS SUMMARY | 2024-06-21 06:30 | XMS_ITS ---
Author Organization [facility] Address [address] [place] [address] Care Team Providers Care Housekeeper Home Name Role Phone MARC HERNANDEZ Primary Care Provider Ernesto Beck [phone] REASON FOR VISIT screening, hx polyps,hx colon ca Encounters Encounter Location Date Provider Diagnosis [facility] [place] [address] [place] [phone] 06/21/2024 Ernesto Wu Plan Of Treatment Next Appt Details Provider Name:Ernesto Wu , 10/01/2025 07:30:00 AM, [address] [place] [address], [phone], Progress Notes * GILBERTMELISSA KDOB:[birth year] (80 yo M)Acc No.[id number]:06/21/2024 COLON WITH MAC Patient: MELISSA CRUZ Provider: Sheba Wu MD :1945 A ge:79 Y S ex:Male Date:06/21/2024 Address:[address] [place], [place] [phone] Pcp:MARC HERNANDEZ Subjective: * Chief Complaints: * [...] 06/21/2024 Generated for Alfredo logan/Lila/Zo on: 1 08:08 PM EDT
--- OUTSIDE RECORDS SUMMARY | 2024-10-09 03:30 | XMS_ITS ---
Author Organization [facility] Address [address] [place] [address] Care Team Providers Care Math And Sciences Department Chair Name Role Phone MARC HERNANDEZ Primary Care Provider Ernesto Beck [phone] REASON FOR VISIT screening, hx polyps,hx colon ca Encounters Encounter Location Date Provider Diagnosis [facility] [place] [address] [place] [id number] 10/09/2024 Ernesto Wu Plan Of Treatment Next Appt Details Provider Name:Ernesto Wu , 10/01/2025 07:30:00 AM, [address] [place] [address], [phone], Progress Notes * KENANMELISSA FUNES KDOB:[birth year] (80 yo M)Acc No.[id number]:10/09/2024 COLON WITH MAC Patient: MELISSA CRUZ Provider: Sheba Wu MD :1945 A ge:79 Y S ex:Male Date:10/09/2024 Address:[address] [place] [phone] Pcp:MARC HERNANDEZ Subjective: * Chief Complaints: * [...] 1 Generated for Alfredo logan/Lila/Zo on: 1 08:09 PM EDT
--- OUTSIDE RECORDS SUMMARY | 2025-05-28 10:30 | XMS_ITS ---
Author Organization [facility] Address [address] [place] [address] Care Team Providers Care Paper Latcher Name Role Phone Stuart Lozano Primary Care Provider Unav ailable Shane Kelleymie Unavailable [phone] Encounters Encounter Location Date Provider Diagnosis [facility] [address] [place] [address] 05/28/2025 Marychuy Black Plan Of Treatment Next Appt Details Provider Name:Marychuy Kelley , 08/16/2025 08:00:00 AM, [address] [place], [address], Progress Notes * Casey SEWELL KDOB:[birth year] (80 yo M)Acc No.[id number]:05/28/2025 Progress Notes Patient: Casey CRUZ Provider: Karine Kelley DPM :1945 A ge:79 Y S ex:Male Date:05/28/2025 Address:[address] [place] [address] [id number] Pcp:IVORY Mattson Subjective: * Chief Complaints: * [...] 05/28/2025 Generated for Alfredo logan/Lila/Zo on: 1 08:08 PM EDT
--- OUTSIDE RECORDS SUMMARY | 2025-06-28 10:30 | XMS_ITS ---
Author Organization [facility] Address [address] [place] [address] Care Team Providers Care Final Tester Name Role Phone Stuart Lozano Primary Care Provider Unav ailable Shane Kelleymie Unavailable [phone] Encounters Encounter Location Date Provider Diagnosis [facility] [address] [place] [address] 06/28/2025 Marychuy Kelley Plan Of Treatment Next Appt Details Provider Name:Marychuy Kelley , 08/16/2025 08:00:00 AM, [address] [place], [address], Progress Notes * Casey SEWELL KDOB:[birth year] (80 yo M)Acc No.[id number]:06/28/2025 Progress Note Patient: Casey CRUZ Provider: Karine Kelley DPM :1945 A ge:80 Y S ex:Male Date:06/28/2025 Address:[address] [place] [address] laury [id number] Pcp:IVORY Mattson Subjective: * Chief Complaints: * [...] 06/28/2025 Generated for Alfredo logan/Lila/Zo on: 1 08:08 PM EDT
--- OUTSIDE RECORDS SUMMARY | 2025-07-20 06:30 | XMS_ITS ---
Author Organization [facility] Address [address] [place] [address] Care Team Providers Care Provider Relations Coordinator Name Role Phone MARC HERNANDEZ Primary Care Provider Ernesto Beck [phone] REASON FOR VISIT screening,hx colon ca, hx adenomatous polyp colon Encounters Encounter Location Date Provider Diagnosis [facility] Outpatient [address] [place] [id number] 07/20/2025 Ernesto Wu Plan Of Treatment Next Appt Details Provider Name:Ernesto Wu , 10/01/2025 07:30:00 AM, [address] [place] [address], [phone], Progress Notes * MELISSA HUNT KDOB:[birth year] (80 yo M)Acc No.[id number]:07/20/2025 COLON WITH MAC Patient: Radha HULL MELISSA Jimenez Provider: Sheba Wu MD :1945 A ge:80 Y S ex:Male Date:07/20/2025 Address:[address] [facility] Pcp:MARC HERNANDEZ Subjective: * Chief Complaints: * [...]
[2025-07-30 16:19] VITALS: BP 106/62; PULSE 61; TEMP 36.7; O2SAT 98; BMI 26.5
--- NOTE | 2025-07-30 16:19 | MHC.OFFWIV ---
Intake Vital Signs 07/30/25 16:19 Height 5 ft 11 in Weight 190 lb BMI 26.5 BP 106/62 Blood Pressure Location Lt brachial Position Sitting Pulse 61 Pulse Source Pulse Oximeter Temp 98.1 F Temp Source Oral Pulse Oximetry (%) 98 Intake Visit Reasons: EP-chest wound f/up Patient Tobacco Use Status: Never used Tobacco Allergies penicillamine Allergy (Unknown, Verified 07/30/25 16:19) unknown Do you need a note to return to daycare/school/sports/work: No HPI HPI Comments History of Present Illness Details History of Present Illness - The patient is a 80-year-old male presenting with wound check and skin irritation from the bandage. - The wound was previously treated with antibiotics, and the patient has a few doses remaining. - The bandage was last changed yesterday, and the patient reports itching and irritation from the adhesive. - The wound appears dry with no drainage, and the skin shows signs of irritation from the bandage. - The patient has been advised to remove the bandage if there is no drainage to allow the skin to heal. - He denies discharge, bleeding, fever or chills. Physical Exam General: Cooperative, healthy appearing, comfortable, no acute distress and well developed Orientation: Patient oriented x3 Limitations: No limitation Respiratory: Normal respiratory effort and able to speak in complete sentences. Clear to auscultation bilaterally Cardiovascular: Regular rate and rhythm. Normal S1 and S2 Skin: Skin irritation where bandage was. No rashes or lesions noted. Area of erythema and no warmth. Slightly induration, flat and no fluctuant. No drainage noted. Patient was informed and verbally consented to the use of an ambient scribe for clinic note documentation during this visit. 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 Vitamin D deficiency Cholecystectomy planned Osteoarthritis History of colon cancer CKD (chronic kidney disease) Sarcoidosis Partial nontraumatic amputation of right foot PVD (peripheral vascular disease) Diabetic retinopathy Spherocytosis Skin cancer Peripheral neuropathy Spinal stenosis Renal stones Pulmonary sarcoidosis Diabetes Surgical History History of amputation of foot History of ureter repair H/O splenectomy S/P ureteral reimplantation History of surgical removal of pilonidal cyst History of tonsillectomy and adenoidectomy H/O right hemicolectomy Status post laser lithotripsy of ureteral calculus Hx of cholecystectomy Hx of colonoscopy Family History Mother Thyroid cancer Other Mental health disorder Social History Household Members: Friend(s) Housing: House Are you a primary vehicle care specialist to a significant other at home: No Do you presently have visiting nurse or other home services: No Alcohol intake: never Patient Tobacco Use Status: Never used Tobacco e-Cigarette/Vaping Use: Never Used Second Hand Smoke Exposure: No Advance Directives Date on File: 12/02/23 service: No Current occupational status: employed and retired Cognitive needs: No Hearing needs: No Vision needs: No Review of Systems Const All systems reviewed & are unremarkable except as noted in HPI and below Physical Exam Vital Signs: Last Vital Signs Temp 98.1 F 07/30/25 16:19 Pulse 61 07/30/25 16:19 BP 106/62 07/30/25 16:19 Pulse Ox 98 07/30/25 16:19 BMI result Body Mass Index 26.5 Assessment & Plan Assessment & Plan (1) Chest wall abscess: Code(s): L02.213 - Cutaneous abscess of chest wall (2) Wound check, abscess: Code(s): Z51.89 - Encounter for other specified aftercare Plan Most likely healing abscess plan - finish antibiotics as prescribed - keep area clean and dry - watch for signs of worsening infection - follow up with PCP Coding Level of Care Code Est Pt Level 3 (26781) Diagnoses Chest wall abscess L02.213 Wound check, abscess Z51.89
--- OUTSIDE RECORDS SUMMARY | 2025-07-30 20:08 | XMS_ITS | Patient Health Record ---
[facility] Organization [facility] Address [address] [place] [address] Care Team Providers Care Helium Arc Welder Name Role Phone Stuart Lozano Primary Care Provider Unav ailable Black, Marychuy Unavailable [phone] Allergies Allergen (clinical drug ingredient) Drug/Non Drug Allergy documented on EMR Reaction Allergy Type Onset Date Status 12 Hour Nasal [place] Unknown Drug Allergy Active Dust Mites Unknown [...] MG as directed Orally Active Magnesium Not-Taking X77-Xztoub Active Euless 3-6-9 Not-Taki ng Vitamin A Active Aspirin [...] Problem Acquired hammer toe of right foot (5318580836426773 ) Other hammer toe(s) (acquired), right foot (M20.41) Active confirmed Problem Acquired hammer toe of left foot (5546402736313378 ) Other hammer toe(s) (acquired), left foot (M20.42) Active confirmed Problem Polyneuropathy due to diabetes mellitus type I (860864446) 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 Problem Ulcer of toe of right foot (disorder) (0927925701626757 1) Skin ulcer of toe of right foot, limited to breakdown of skin (L97.511) Active confirmed Vital Signs Blood pressure diastolic 72 mm Hg 07/16/2025 Height 5ft 11in in 07/16/2025 Blood pressure systolic 115 mm Hg 07/16/2025 Weight 196 lbs 07/16/2025 BMI 27.33 kg/m2 07/16/2025 Procedures Procedure Date Ordered Date Performed Result Body Sit e 86925-JWKUNAA NAIL, 1-5 08/17/2024 N/A 38163-Wmdrvlut Plate 08/17/2024 N/A 86164-Ebqnfdmy Plate Each Additional 08/17/2024 N/A 70421-ICLX SKIN LESIONS, OVER 4 08/17/2024 N/A 15535-AGLGEDT NAIL, 6 OR MORE 11/23/2024 N/A 01446-JIJA SKIN LESIONS, OVER 4 11/23/2024 N/A 21065-FUAFRQJ NAIL, 6 OR MORE 03/15/2025 N/A 33257- Debride <25 sq cm 03/15/2025 N/A 85153-SJMC SKIN LESIONS, OVER 4 03/15/2025 N/A 65260- Debride <25 sq cm 04/02/2025 N/A 06465- Debride <25 sq cm 04/30/2025 N/A 32403-ACLLYYF NAIL, 6 OR MORE 05/24/2025 N/A 10998 I&D ABSCESS- SIMPLE,SINGLE 05/24/2025 N/A 09158-EVKN SKIN LESIONS, OVER 4 05/24/2025 N/A 03159- Debride <25 sq cm 06/07/2025 N/A 21171- Debride <25 sq cm 06/18/2025 N/A 60343- Debride <25 sq cm 07/02/2025 N/A 83443- Debride <25 sq cm 07/16/2025 N/A Encounters Encounter Location Date Provider Diagnosis [address] [address] 08/17/2024 Marychuy Black Type 1 diabetes mellitus with diabetic polyneuropathy E10.42 ; Tinea unguium B35.1 ; Ingrown nail L60.0 and Skin ulcer of toe of left foot, limited to breakdown of skin L97.[address] [address] 11/23/2024 Marychuy Black Type 1 diabetes mellitus with diabetic polyneuropathy E10.42 ; Xerosis of skin L85.3 and Tinea unguium B35.[address] [address] 03/15/2025 Marychuy Black Type 1 diabetes mellitus with diabetic polyneuropathy E10.42 ; Xerosis of skin L85.3 ; Tinea unguium B35.1 and Skin ulcer of toe of right foot, limited to breakdown of skin L97.[address] [address] 04/02/2025 Marychuy Black Neuropathic ulcer of right foot, limited to breakdown of skin L97.511 and Type 1 diabetes mellitus with diabetic polyneuropathy E10.[address] [address] 04/30/2025 Marychuy Black Neuropathic ulcer of right foot, limited to breakdown of skin L97.511 and Type 1 diabetes mellitus with diabetic polyneuropathy E10.[address] [address] 05/24/2025 Marychuy Black Type 1 diabetes mellitus with diabetic polyneuropathy E10.42 ; Cellulitis of right toe L03.031 ; Tinea unguium B35.1 and Cutaneous abscess of right foot L02.[address] [address] 06/07/2025 Marychuy Black Type 1 diabetes mellitus with diabetic polyneuropathy E10.42 ; Cellulitis of right toe L03.031 and Skin ulcer of toe of right foot, limited to breakdown of skin L97.[address] [address] 06/18/2025 Marychuy Black Type 1 diabetes mellitus with diabetic polyneuropathy E10.42 and Skin ulcer of toe of right foot, limited to breakdown of skin L97.[address] [address] 07/02/2025 Marychuy Black Type 1 diabetes mellitus with diabetic polyneuropathy E10.42 and Skin ulcer of toe of right foot, limited to breakdown of skin L97.[address] [address] 07/16/2025 Marychuy Black Type 1 diabetes mellitus with diabetic polyneuropathy E10.42 ; Skin ulcer of toe of right foot, limited to breakdown of skin L97.511 ; Other hammer toe(s) (acquired), right foot M20.41 and Other hammer toe(s) (acquired), left foot M20.[address] [address] 08/22/2024 Marychuy Black [address] [address] 11/23/2024 Marychuy Black [address] [place] [address] 04/30/2025 Marychuy Black [facility] [address] [place] [address] 05/01/2025 Marychuy Black [facility] [address] [place] [address] 05/24/2025 Marychuy Black [facility] [address] [address] 05/28/2025 Marychuy Black Cellulitis of right toe L03.031 [facility] [address] [place] [address] 06/01/2025 Marychuy Black Cellulitis of right toe L03.031 [facility] [address] [address] 06/12/2025 Marychuy Black [facility] [address] [place] [address] 06/18/2025 Marychuy Black Assessments Encounter Date Diagnosis [...] Test Name Order Date Hemoglobin A1c 12/02/2015 94779-RZVCKTI NAIL, 6 OR MORE 11/23/2024 56717-MEIFYUT NAIL, 6 OR MORE 05/24/2025 55949-XRLXPNE NAIL, 6 OR MORE 07/08/2023 78184-MXSAEIW NAIL, 6 OR MORE 10/21/2023 75944-IRXLRLH NAIL, 6 OR MORE 05/11/2024 71773-ZFZQTUP NAIL, 6 OR MORE 03/15/2025 51667-UMTGXGD NAIL, 6 OR MORE 12/02/2020 85556-OOGTNAR NAIL, 6 OR MORE 03/13/2021 80120-JWRWOFO NAIL, 6 OR MORE 06/09/2021 42920-CQZWZUD NAIL, 6 OR MORE 09/08/2021 94384-SOYWOJC NAIL, 6 OR MORE 01/30/2022 30562-UHNGOIS NAIL, 6 OR MORE 06/22/2022 39530-BUEPWFP NAIL, 6 OR MORE 09/28/2022 29755-BLTTWBX NAIL, 6 OR MORE 12/28/2022 73829-VEFSVOP NAIL, 6 OR MORE 04/05/2023 92156-GHHSNFR NAIL, 6 OR MORE 10/01/2011 28318-VAGTAER NAIL, 6 OR MORE 12/03/2011 99639-XPCUIZT NAIL, 6 OR MORE 03/03/2012 02176-LELYYDE NAIL, 6 OR MORE 06/02/2012 48267-VFNEWLO NAIL, 6 OR MORE 11/03/2012 43803-XWKMZZG NAIL, 6 OR MORE 01/23/2013 81698-KJIDVAA NAIL, 6 OR MORE 04/03/2013 90457-FHMALIP NAIL, 6 OR MORE 06/28/2013 22304-KXAJASU NAIL, 6 OR MORE 09/13/2013 48231-AONCKPH NAIL, 6 OR MORE 12/13/2013 48403-HBEXAAU NAIL, 6 OR MORE 03/22/2014 00495-NPNSJIX NAIL, 6 OR MORE 06/21/2014 82027-YWQGYSR NAIL, 6 OR MORE 09/20/2014 74576-BEZJOXJ NAIL, 6 OR MORE 12/06/2014 66471-DEZQYQN NAIL, 6 OR MORE 02/21/2015 98691-YRTNLEQ NAIL, 6 OR MORE 05/13/2015 99116-ATURVBK NAIL, 6 OR MORE 09/09/2015 20674-LLRYUAJ NAIL, 6 OR MORE 12/02/2015 63065-SJMKCZK NAIL, 6 OR MORE 02/24/2016 46990-CJUMKDA NAIL, 6 OR MORE 06/01/2016 22661-KWVDUMU NAIL, 6 OR MORE 08/27/2016 80745-IGCAHNP NAIL, 6 OR MORE 12/07/2016 47659-YYRCPIX NAIL, 6 OR MORE 03/11/2017 32004-AXZOTTH NAIL, 6 OR MORE 06/24/2017 55808-LFZOCDK NAIL, 6 OR MORE 09/27/2017 64220-JWIRNDN NAIL, 6 OR MORE 12/27/2017 71532-UKIVEFH NAIL, 6 OR MORE 06/02/2018 92363-BALFSDY NAIL, 6 OR MORE 08/25/2018 62334-TPLIOQJ NAIL, 6 OR MORE 11/24/2018 39602-RKSZVET NAIL, 6 OR MORE 03/09/2019 23273-LZLCDMZ NAIL, 6 OR MORE 06/05/2019 69182-PLRQHWR NAIL, 6 OR MORE 09/18/2019 60053-ANBCFJM NAIL, 6 OR MORE 03/11/2020 45021-KRZHRFA NAIL, 6 OR MORE 06/13/2020 99554-XIYTHBE NAIL, 6 OR MORE 09/23/2020 32212-HRQFBSP NAIL, 1-5 08/17/2024 23377-ASCDMFT NAIL, 1-5 01/20/2024 97441-Jnkm Destruction, -14 09/08/2021 43293-Djtp Destruction, -14 06/09/2021 51336-Xjxk Destruction, -14 03/11/2020 14851-Lqqg Destruction, -14 06/05/2019 58946-Plxc Destruction, -14 09/18/2019 35738-Uacz Destruction, -14 03/09/2019 74126-Cwtj Destruction, 10-2405/13/2015 32680-Mfop Destruction, 10-2402/21/2015 49956-Rjxh Destruction, 10-2412/06/2014 45131-Bitp Destruction, 10-2409/20/2014 39628-Swsr Destruction, 10-2406/21/2014 26588-Fcgy Destruction, 10-2403/22/2014 93617-Llgw Destruction, 10-2412/13/2013 75608-Fxkk Destruction, 10-2409/13/2013 46002-Midy Destruction, 10-2406/28/2013 01439-Mpdr Destruction, 10-2404/03/2013 58232-Xehi Destruction, 10-2401/23/2013 40770-Yhra Destruction, 10-2411/03/2012 02528-Bqcv Destruction, 10-2406/02/2012 76061-Loqe Destruction, 10-2410/01/2011 87123-Zzqg Destruction, 10-2403/03/2012 45045-Ggiu Destruction, 10-2412/03/2011 33123-Amdlqtnu Plate 03/03/2012 49642-Yfkonumq Plate 12/03/2011 46875-Lxpwznoj Plate 06/02/2012 34237-Ppqdfsen Plate 01/23/2013 92573-Gltwjuhn Plate 04/03/2013 99646-Ujfxqbee Plate 06/28/2013 45918-Cguympij Plate 09/13/2013 55093-Dnwwfgwi Plate 12/13/2013 89811-Nknjzwlu Plate 03/22/2014 59836-Vgyjgpzi Plate 06/21/2014 71440-Sahaskmq Plate 09/20/2014 52971-Bgpdwfyp Plate 12/06/2014 06111-Kzdwacow Plate 02/21/2015 07101-Pepkumlg Plate 05/13/2015 05077-Kopmvwxo Plate 12/27/2017 59385-Ybbuihrq Plate 06/05/2019 71124-Ojpvhvvd Plate 11/24/2018 83179-Srzcruvp Plate 03/09/2019 21913-Cdsbmyas Plate 08/25/2018 97520-Udwxrerx Plate 09/18/2019 67094-Cxqlefmb Plate 03/11/2020 29378-Bigrwuuk Plate 09/27/2017 32522-Yftpyzno Plate 12/07/2016 94156-Aqawxawe Plate 08/27/2016 21049-Zfmsiazv Plate 06/01/2016 86394-Yddfxifi Plate 02/24/2016 12289-Rfkhjitk Plate 12/02/2015 21096-Fsyflafu Plate 11/03/2012 99584-Hkfnxidm Plate 09/09/2015 81711-Nmjzxnio Plate 06/09/2021 96869-Dnjmlabc Plate 06/13/2020 32982-Arkqkgax Plate 09/08/2021 20567-Wdpctymy Plate 03/13/2021 01842-Lbqiyycv Plate 09/23/2020 56079-Njdtqjfw Plate 01/30/2022 76033-Xfymqwtg Plate 06/22/2022 87830-Ovmmdwwv Plate 01/20/2024 68836-Fntuhbun Plate 08/17/2024 44406-Igujipmx Plate Each Additional 09/2022 78547-Sblhcrct Plate Each Additional 04/2024 98541-Yryabejz Plate Each Additional 48989-Nwvsfozp Plate Each Additional 14477-Stqmtnmi Plate Each Additional 12/2020 27161-Hhkjibah Plate Each Additional 41086-Azcursyp Plate Each Additional 41106-Mikfprik Plate Each Additional 48777-Svwyyysz Plate Each Additional 14418-Dharcrvr Plate Each Additional 31237-Hctmrzsm Plate Each Additional 51182-Ftgnoemd Plate Each Additional 63080-Rviseefg Plate Each Additional 58167-Lfurlqlu Plate Each Additional 93845-Esygzjqx Plate Each Additional 06/2019 19467-Zjnoatbv Plate Each Additional 10/2019 71474-Vyxtybft Plate Each Additional 12109-Uhydhgwn Plate Each Additional 95127-Xghoquvs Plate Each Additional 63084-Zjyshdrb Plate Each Additional 12/2014 70019-Nnganyqf Plate Each Additional 62329-Zqmbgdfo Plate Each Additional 84499-Rxnrbbfv Plate Each Additional 08/2014 78275-Wetgmsfr Plate Each Additional 08/2014 00052-Oprvqprd Plate Each Additional 09/2014 12165-Uftsnmgm Plate Each Additional 02/2014 73777-Beunahbo Plate Each Additional 01/2013 40645-Peurabkh Plate Each Additional 47460-Fqlgsrec Plate Each Additional 56070-Mvnwotwz Plate Each Additional 92099-Kmlgkpmq Plate Each Additional 54828-Xsbpifag Plate Each Additional 26598- Debride <25 sq cm 06/13/2020 91502- Debride <25 sq cm 04/05/2023 76025- Debride <25 sq cm 03/15/2025 55150- Debride <25 sq cm 04/02/2025 80776- Debride <25 sq cm 04/30/2025 38055- Debride <25 sq cm 06/07/2025 07562- Debride <25 sq cm 06/18/2025 39669- Debride <25 sq cm 07/02/2025 93767- Debride <25 sq cm 07/16/2025 43363 I&D ABSCESS- SIMPLE,SINGLE 025 40468 I&D ABSCESS- SIMPLE,SINGLE 013 89266 I&D ABSCESS- SIMPLE,SINGLE 013 34149-DFRQ SKIN LESIONS, OVER 4 01/24/20 13 54488-UPXM SKIN LESIONS, OVER 4 11/03/19 13 42404-GHXW SKIN LESIONS, OVER 4 04/03/20 13 96503-HZOP SKIN LESIONS, OVER 4 06/28/20 13 78789-QEHX SKIN LESIONS, OVER 4 09/13/20 13 02705-YRQD SKIN LESIONS, OVER 4 12/14/19 14 68815-FPNX SKIN LESIONS, OVER 4 03/22/20 14 45009-DXSU SKIN LESIONS, OVER 4 06/21/20 14 93435-WQLW SKIN LESIONS, OVER 4 09/20/20 14 06419-EVNL SKIN LESIONS, OVER 4 12/06/19 15 28773-BQAZ SKIN LESIONS, OVER 4 02/22/20 15 79933-IWQY SKIN LESIONS, OVER 4 05/13/20 15 07398-ULGX SKIN LESIONS, OVER 4 06/13/20 20 89609-EWTQ SKIN LESIONS, OVER 4 09/23/20 20 99640-DAYP SKIN LESIONS, OVER 4 03/11/20 20 65975-WFGQ SKIN LESIONS, OVER 4 09/18/20 19 04541-ZPBI SKIN LESIONS, OVER 4 03/09/20 19 90197-MDUI SKIN LESIONS, OVER 4 06/05/20 19 09441-CZSB SKIN LESIONS, OVER 4 11/24/19 19 72016-ZKTH SKIN LESIONS, OVER 4 08/25/20 18 90208-WXKB SKIN LESIONS, OVER 4 12/28/19 18 90090-CURW SKIN LESIONS, OVER 4 06/02/20 18 25691-CDBJ SKIN LESIONS, OVER 4 09/27/20 17 61979-PLBD SKIN LESIONS, OVER 4 06/24/20 17 09303-WQUC SKIN LESIONS, OVER 4 12/07/19 17 48284-KDFY SKIN LESIONS, OVER 4 03/11/20 17 29749-BJXZ SKIN LESIONS, OVER 4 08/27/20 16 58886-HALK SKIN LESIONS, OVER 4 06/01/20 16 50292-ULKD SKIN LESIONS, OVER 4 02/24/20 16 89075-KQIK SKIN LESIONS, OVER 4 12/02/19 16 60573-UZVY SKIN LESIONS, OVER 4 09/09/20 15 99603-ZVHQ SKIN LESIONS, OVER 4 03/15/20 25 26687-WQKC SKIN LESIONS, OVER 4 05/24/20 25 08541-LLSC SKIN LESIONS, OVER 4 08/17/20 24 08163-EXBP SKIN LESIONS, OVER 4 11/23/19 25 56894-XMIS SKIN LESIONS, OVER 4 05/11/20 24 50274-QKZK SKIN LESIONS, OVER 4 01/20/20 24 00559-SDRG SKIN LESIONS, OVER 4 10/21/19 24 58699-ODHK SKIN LESIONS, OVER 4 04/05/20 23 78716-ICMK SKIN LESIONS, OVER 4 07/08/20 23 47767-GVTZ SKIN LESIONS, OVER 4 12/29/19 23 51555-IORP SKIN LESIONS, OVER 4 09/28/20 41013-TZZU SKIN LESIONS, OVER 4 06/22/20 32161-TGBT SKIN LESIONS, OVER 4 01/31/20 67573-XDFO SKIN LESIONS, OVER 4 09/08/20 21 81463-ZNSF SKIN LESIONS, OVER 4 06/09/20 21 82464-IZBT SKIN LESIONS, OVER 4 12/02/19 21 00582-TRDF SKIN LESIONS, OVER 4 03/13/20 75565-HMKZ SKIN LESIONS, 2 TO 4 06/02/20 12 97390-NWUZ SKIN LESIONS, 2 TO 4 03/03/20 12 50075-NGDN SKIN LESIONS, 2 TO 4 12/03/19 12 33248-GOXD SKIN LESIONS, 2 TO 4 10/01/20 11 Next Appt Details Provider Name:Marychuy Kelley , 08/16/2025 08:00:00 AM, [address] [place], [address], Insurance Providers Payer Name Payer Address Payer Phone Subscriber Number Group Number Insured Name Patient Relationship to Insured Coverage Start Date Coverage End Date [facility] [address] [place] [address] [id number] Casey Ulrich Self - patient is the [...] History Reason Date(Month/Year) ER- blocked arteries 07/05 [facility] - chest pains 02/02 [facility]- Possible Heart Attack/Stress Anxiet y/Covid 07/31 [facility]- Bladder Scan [facility] Scan [facility]- chest pain 10/31 [facility]- Pressure wound right ankle - saw ne rakesh bonilla [facility]- chest pain 10/2015
--- OUTSIDE RECORDS SUMMARY | 2025-07-30 20:08 | XMS_ITS | Clinical Summary ---
Author Organization [facility] Address [address] [place] [address] Phone Care Team Providers Care Deck Supervisor Name Role Phone Stuart Will FAMILY SERVICE WORKER Primary Care Provider + Social History Tobacco [...] [facility] A Care Teams Deck Supervisor Relationship Specialty Start Date End Date Stuart Will NP [facility] [place] [address] PCP - General Nurse Practitioner 04/27/24 Additional Source Comments The information contained in this document represents components of the legal health record. It is not the complete legal health record.[facility]
--- OUTSIDE RECORDS SUMMARY | 2025-07-30 20:09 | XMS_ITS | Encounter Summary ---
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 Primary Care Provider + Encounter Details Date Type Department Care Team (Late st Contact Info) Description 01/10/2021 Transcribe Orders [facility] [address] [address] [address] [place] [id number] [email or web address] Social History Tobacco Use Types [...] on filedocumented in this encounter Care Teams Director Part Relationship Specialty Start Date End Date Pcp, Unknown PCP - General 11/20/20 04/26/24 Stuart Will NP [address] [facility] [place] [address] PCP - General Nurse Practitioner 04/27/24 documented as of this encounter Additional Source Comments The information contained in this document represents components of the legal health record. It is not the complete legal health record.[facility]
--- OUTSIDE RECORDS SUMMARY | 2025-07-30 20:09 | XMS_ITS | Patient Health Record ---
Author Organization [facility] Address [address] [place] [address] Care Team Providers Care Secondary School Teacher Name Role Phone MARC HERNANDEZ Primary Care Provider Ernesto Beck [phone] Allergies No Known Allergies Reason For Referral [...] day(s) Active Ketoconazole 2 % 1 application Hospital Chief Executive Officer ally Once a day; Duration: 14 day(s) [...] Problem Screening for malignant neoplasm of colon (333534396) Encounter for screening for malignant neoplasm of colon (Z12.11) Active confirmed Problem History of adenomatous polyp of colon (352186584) History of adenomatous polyp of colon (Z86.010) Active confirmed Problem 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 Problem Preprocedural examination (837740928677581) Preprocedural examination (Z01.818) Active confirmed Problem History of malignant neoplasm of colon (710874136) History of colon cancer (Z85.038) Active confirmed Problem Constipation (24223755) Constipation, unspecified constipation type (K59.00) Active confirmed Problem Diverticulosis of colon (437355815) Diverticulosis of colon (K57.30) Active confirmed Problem 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) Active confirmed Vital Signs Temperature 97.9 degrees Fahrenheit 04/04/2025 Blood pressure diastolic 01 mm Hg 04/04/2025 Height 71.5 in 04/04/2025 Blood pressure systolic 001 mm Hg 04/04/2025 Weight 196 lbs 04/04/2025 BMI 26.95 kg/m2 04/04/2025 Procedures Procedure Date Ordered Date Performed Result Body Sit e COLONOSCOPY 04/04/2025 N/A Encounters Encounter Location Date Provider Diagnosis [facility] [address] [place] [phone] 04/04/2025 Ernesto Wu History of adenomato us polyp of colon Z86.010 ; Irritable bowel syndrome K58.9 ; Encounter for screening for malignant neoplasm of colon Z12.11 ; History of colon cancer Z85.038 and Preprocedural examination Z01.818 [facility] [address] [place] [phone] 09/12/2024 Ernesto Wu [facility] [address] [place] [phone] 10/03/2024 Ernesto Wu [facility] [address] [place] [phone] 01/30/2025 Ernesto Wu [facility] [address] [place] [phone] 04/05/2025 Ernesto Wu [facility] [address] [place] [phone] 05/07/2025 Ernesto Wu Assessments Encounter Date Diagnosis [...] procedure. He will be seen by his lead recoverer prior to the procedure and I did [...] procedure. He will be seen by his lead recoverer prior to the procedure and I did [...] procedure. He will be seen by his lead recoverer prior to the procedure and I did [...] procedure. He will be seen by his lead recoverer prior to the procedure and I did [...] procedure. He will be seen by his lead recoverer prior to the procedure and I did [...] Provider Name:Ernesto Wu , 10/01/2025 07:30:00 AM, [address] [place] [address], [phone], Insurance Providers Payer Name Payer Address Payer Phone Subscriber Number Group Number Insured Name Patient Relationship to Insured Coverage Start Date Coverage End Date [facility] [address] [place], [place] [id number] MELISSA ELDER Self - patient is the [...] for stones with Jazlyn Liriano at [facility] Right colectomy 09/[address] 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
== END 2025-07-30 16:49 | disposition home or self-care (01) ==
PROVIDERS: PCP Nurse Practitioner Family; Visit Provider Physician Assistant Medical
DX: L02.213 Cutaneous abscess of chest wall (principal); Z51.89 Encounter for other specified aftercare

== ENCOUNTER 2025-07-31 06:56 | Outpatient (AMB) | payer BC, SELFPAY ==
--- OUTSIDE RECORDS SUMMARY | 2024-06-21 06:30 | XMS_ITS ---
Author Organization [facility] Address [address] [place] [address] Care Team Providers Care Leather Piece Inspector Name Role Phone MARC HERNANDEZ Primary Care Provider Ernesto Beck [phone] REASON FOR VISIT screening, hx polyps,hx colon ca Encounters Encounter Location Date Provider Diagnosis [facility] Outpatient [address] [place] [address] [id number] 06/21/2024 Ernesto Wu Plan Of Treatment Next Appt Details Provider Name:Ernesto Wu , 10/01/2025 07:30:00 AM, [address] [place] [address], [id number], Progress Notes * GILBERTMELISSA KDOB:[birth year] (80 yo M)Acc No.[id number]:06/21/2024 COLON WITH MAC Patient: MELISSA CRUZ Provider: Sheba Wu MD :1945 A ge:79 Y S ex:Male Date:06/21/2024 Address:[address] [place], [place] [phone] Pcp:MARC HERNANDEZ Subjective: * Chief Complaints: * [...] 06/21/2024 Generated for Alfredo logan/Lila/Zo on: 1 07:00 AM EDT
--- OUTSIDE RECORDS SUMMARY | 2024-10-09 03:30 | XMS_ITS ---
Author Organization [facility] Address [address] [place] [address] Care Team Providers Care Php Mysql Web Developer Name Role Phone MARC HERNANDEZ Primary Care Provider Ernesto Beck [phone] REASON FOR VISIT screening, hx polyps,hx colon ca Encounters Encounter Location Date Provider Diagnosis [facility] Out[place] [address] [place] [id number] 10/09/2024 Ernesto Wu Plan Of Treatment Next Appt Details Provider Name:Ernesto Wu , 10/01/2025 07:30:00 AM, [address] [place] [address], [phone], Progress Notes * KENANMELISSA FUNES KDOB:[birth year] (80 yo M)Acc No.[id number]:10/09/2024 COLON WITH MAC Patient: MELISSA CRUZ Provider: Sheba Wu MD :1945 A ge:79 Y S ex:Male Date:10/09/2024 Address:[address] [place], [place] [phone] Pcp:MARC HERNANDEZ Subjective: * Chief Complaints: * [...] 1 Generated for Alfredo logan/Lila/Zo on: 1 07:01 AM EDT
--- OUTSIDE RECORDS SUMMARY | 2025-05-28 10:30 | XMS_ITS ---
Author Organization [facility] Address [address] [place] [address] Care Team Providers Care Fishing Captain Name Role Phone Stuart Lozano Primary Care Provider Unav ailable Shane Kelleymie Unavailable [phone] Encounters Encounter Location Date Provider Diagnosis [facility] [address] [place] [address] 05/28/2025 Marychuy Black Plan Of Treatment Next Appt Details Provider Name:Marychuy Kelley , 08/16/2025 08:00:00 AM, [address] [place], [address], Progress Notes * Casey SEWELL KDOB:[birth year] (80 yo M)Acc No.[id number]:05/28/2025 Progress Notes Patient: Casey CRUZ Provider: Karine Kelley DPM :1945 A ge:79 Y S ex:Male Date:05/28/2025 Address:[address] [place] [address] la[place] [id number] Pcp:IVORY Mattson Subjective: * Chief Complaints: * [...] 05/28/2025 Generated for Alfredo logan/Lila/Zo on: 1 07:00 AM EDT
--- OUTSIDE RECORDS SUMMARY | 2025-06-28 10:30 | XMS_ITS ---
Author Organization [facility] Address [address] [place] [address] Care Team Providers Care Secondary Special Education Teacher Name Role Phone Stuart Lozano Primary Care Provider Unav ailable Marychuy Kelley Unavailable [phone] Encounters Encounter Location Date Provider Diagnosis [facility] [address] [place] [address] 06/28/2025 Marychuy Kelley Plan Of Treatment Next Appt Details Provider Name:Marychuy Kelley , 08/16/2025 08:00:00 AM, [address] [place], [address], Progress Notes * Casey SEWELL KDOB:[birth year] (80 yo M)Acc No.[id number]:06/28/2025 Progress Note Patient: Casey CRUZ Provider: Karine Kelley DPM :1945 A ge:80 Y S ex:Male Date:06/28/2025 Address:[address] [place] [address] laury [id number] Pcp:IVORY Mattson Subjective: * Chief Complaints: * [...] 06/28/2025 Generated for Alfredo logan/Lila/Zo on: 1 06:59 AM EDT
--- OUTSIDE RECORDS SUMMARY | 2025-07-20 06:30 | XMS_ITS ---
Author Organization [facility] Address [address] [place] [address] Care Team Providers Care Handbag Designer Name Role Phone MARC HERNANDEZ Primary Care Provider Ernesto Beck [phone] REASON FOR VISIT screening,hx colon ca, hx adenomatous polyp colon Encounters Encounter Location Date Provider Diagnosis [facility] Outpatient [address] [place] [phone] 07/20/2025 Ernesto Wu Plan Of Treatment Next Appt Details Provider Name:Ernesto Wu , 10/01/2025 07:30:00 AM, [address] [place] [address], [phone], Progress Notes * MELISSA HUNT KDOB:[birth year] (80 yo M)Acc No.[id number]:07/20/2025 COLON WITH MAC Patient: Radha HULL MELISSA Jimenez Provider: Sheba Wu MD :1945 A ge:80 Y S ex:Male Date:07/20/2025 Address:[address] [facility] Pcp:MARC HERNANDEZ Subjective: * Chief Complaints: * [...] 1 Generated for Alfredo logan/Lila/Zo on: 1 07:00 AM EDT
--- OUTSIDE RECORDS SUMMARY | 2025-07-31 07:00 | XMS_ITS | Clinical Summary ---
Author Organization [facility] Address [address] [place] [address] Phone Care Team Providers Care Fire Tender Name Role Phone Stuart Will TRUCK ENGINE ASSEMBLER Primary Care Provider + Social History [...] Insurance MEDICARE A MEDICARE A MEDICARE A [facility] MEDICARE A MEDICARE A [facility] MEDICARE A [facility] MEDICARE A [facility] MEDICARE A [facility] MEDICARE A Care Teams Fire Tender Relationship Specialty Start Date End Date Stuart Will NP [facility] [place] [address] PCP - General Nurse Practitioner 04/27/24 Additional Source Comments The information contained in this document represents components of the legal health record. It is not the complete legal health record.[facility]
--- OUTSIDE RECORDS SUMMARY | 2025-07-31 07:00 | XMS_ITS | Patient Health Record ---
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 Name Role Phone Stuart Lozano Primary Care Provider Unav ailable Black, Marychuy Unavailable [phone] Allergies Allergen (clinical drug ingredient) Drug/Non Drug Allergy documented on EMR Reaction Allergy Type Onset Date Status 12 Hour Nasal [place] Unknown Drug Allergy Active Dust Mites Unknown [...] MG as directed Orally Active Magnesium Not-Taking J60-Xedtci Active [place] 3-6-9 Not-Taki ng Vitamin A Active Aspirin 81 81 MG 1 tablet Orally Once a day Not-Taking Vitamin D Active Vitamin C & E Complex Not-Taking Berberine HCI 500 MG as directed Orally Active Ascorbic Acid Not-Jacek hensley Zinc Active Venlafaxine HCl Not- Taking HumuLIN N Active Prevnar 13 Not-Takin g Multivitamins Not-Jcaek hensley Extra Depth Orthopedic Shoes (1 Pair) [...] No Points 0 Interpretation Negative Section Notes: Eye exam, Dr Tucker-08/2015 Pt declined flu shot Eye exam, Dr Tucker-08/2015 Pt declined flu shot Eye exam, Dr Caitlin Pt declined flu shot Eye exam, Dr Lopez Pt declined flu shot Eye exam, Dr Lopez Pt declined flu shot Eye exam, Pt declined flu shot Eye exam, Pt declined flu shot Eye exam, Dr Lopez Pt declined flu shot Eye exam, Dr Lopez Pt declined flu shot Pt declined flu shot Eye exam, Pt declined flu shot Eye exam, Pt declined flu shot Eye exam, Dr Lopez Pt declined flu shot Problems Problem Type SNOMED Code ICD Code Onset Dates Problem Status W/U Status Risk Notes Problem Acquired hammer toe of right foot (3438546089805215 ) Other hammer toe(s) (acquired), right foot (M20.41) Active confirmed Problem Acquired hammer toe of left foot (4619280801500622 ) Other hammer toe(s) (acquired), left foot (M20.42) Active confirmed Problem Polyneuropathy due to diabetes mellitus type I (572608142) 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 Problem Ulcer of toe of right foot (disorder) (5863339772316454 1) Skin ulcer of toe of right foot, limited to breakdown of skin (L97.511) Active confirmed Vital Signs Blood pressure diastolic 72 mm Hg 07/16/2025 Height 5ft 11in in 07/16/2025 Blood pressure systolic 115 mm Hg 07/16/2025 Weight 196 lbs 07/16/2025 BMI 27.33 kg/m2 07/16/2025 Procedures Procedure Date Ordered Date Performed Result Body Sit e 43026-JNOPGWD NAIL, 1-5 08/17/2024 N/A 15495-Yobksulo Plate 08/17/2024 N/A 61347-Uycbeqjx Plate Each Additional 08/17/2024 N/A 34025-YDJT SKIN LESIONS, OVER 4 08/17/2024 N/A 32829-QKOKMRX NAIL, 6 OR MORE 11/23/2024 N/A 51063-XPTR SKIN LESIONS, OVER 4 11/23/2024 N/A 54596-OENQUMQ NAIL, 6 OR MORE 03/15/2025 N/A 23239- Debride <25 sq cm 03/15/2025 N/A 08201-FOQV SKIN LESIONS, OVER 4 03/15/2025 N/A 21825- Debride <25 sq cm 04/02/2025 N/A 66348- Debride <25 sq cm 04/30/2025 N/A 32620-HDONJOL NAIL, 6 OR MORE 05/24/2025 N/A 27731 I&D ABSCESS- SIMPLE,SINGLE 05/24/2025 N/A 60035-DJZT SKIN LESIONS, OVER 4 05/24/2025 N/A 40125- Debride <25 sq cm 06/07/2025 N/A 28031- Debride <25 sq cm 06/18/2025 N/A 32565- Debride <25 sq cm 07/02/2025 N/A 14618- Debride <25 sq cm 07/16/2025 N/A Encounters Encounter Location Date Provider Diagnosis [address] [address] 08/17/2024 Marychuy Black Type 1 diabetes mellitus with diabetic polyneuropathy E10.42 ; Tinea unguium B35.1 ; Ingrown nail L60.0 and Skin ulcer of toe of left foot, limited to breakdown of skin L97.[address] [address] 11/23/2024 Marychuy Black Type 1 diabetes mellitus with diabetic polyneuropathy E10.42 ; Xerosis of skin L85.3 and Tinea unguium B35.[address] [address] 03/15/2025 Marychuy Black Type 1 diabetes mellitus with diabetic polyneuropathy E10.42 ; Xerosis of skin L85.3 ; Tinea unguium B35.1 and Skin ulcer of toe of right foot, limited to breakdown of skin L97.[address] [address] 04/02/2025 Marychuy Black Neuropathic ulcer of right foot, limited to breakdown of skin L97.511 and Type 1 diabetes mellitus with diabetic polyneuropathy E10.[address] [address] 04/30/2025 Marychuy Black Neuropathic ulcer of right foot, limited to breakdown of skin L97.511 and Type 1 diabetes mellitus with diabetic polyneuropathy E10.[address] [address] 05/24/2025 Marychuy Black Type 1 diabetes mellitus with diabetic polyneuropathy E10.42 ; Cellulitis of right toe L03.031 ; Tinea unguium B35.1 and Cutaneous abscess of right foot L02.[address] [address] 06/07/2025 Marychuy Black Type 1 diabetes mellitus with diabetic polyneuropathy E10.42 ; Cellulitis of right toe L03.031 and Skin ulcer of toe of right foot, limited to breakdown of skin L97.[address] [address] 06/18/2025 Marychuy Black Type 1 diabetes mellitus with diabetic polyneuropathy E10.42 and Skin ulcer of toe of right foot, limited to breakdown of skin L97.[address] [address] 07/02/2025 Marychuy Black Type 1 diabetes mellitus with diabetic polyneuropathy E10.42 and Skin ulcer of toe of right foot, limited to breakdown of skin L97.[address] [address] 07/16/2025 Marychuy Black Type 1 diabetes mellitus with diabetic polyneuropathy E10.42 ; Skin ulcer of toe of right foot, limited to breakdown of skin L97.511 ; Other hammer toe(s) (acquired), right foot M20.41 and Other hammer toe(s) (acquired), left foot M20.[address] [address] 08/22/2024 Marychuy Black [address] [address] 11/23/2024 Marychuy Black [address] [place] [address] 04/30/2025 Marychuy Black [facility] [address] [place] [address] 05/01/2025 Marychuy Black [facility] [address] [place] [address] 05/24/2025 Marychuy Black [facility] [address] [address] 05/28/2025 Marychuy Black Cellulitis of right toe L03.031 [facility] [address] [place] [address] 06/01/2025 Marychuy Black Cellulitis of right toe L03.031 [facility] [address] [address] 06/12/2025 Marychuy Black [facility] [place] [address] [facility] [address] [place] [address] 06/18/2025 Marychuy Black Assessments Encounter Date Diagnosis [...] Test Name Order Date Hemoglobin A1c 12/02/2015 29597-FALYHGQ NAIL, 6 OR MORE 11/23/2024 45811-CGORIIV NAIL, 6 OR MORE 05/24/2025 17653-GVMXFAR NAIL, 6 OR MORE 07/08/2023 73887-DYRXGLB NAIL, 6 OR MORE 10/21/2023 56967-JPFYCPJ NAIL, 6 OR MORE 05/11/2024 21668-TFCSZMG NAIL, 6 OR MORE 03/15/2025 12923-ZAVZHKJ NAIL, 6 OR MORE 12/02/2020 69094-LUROLZR NAIL, 6 OR MORE 03/13/2021 75569-JMKKQRG NAIL, 6 OR MORE 06/09/2021 46510-XGIXFIO NAIL, 6 OR MORE 09/08/2021 52952-IRTZPDA NAIL, 6 OR MORE 01/30/2022 84201-YYHEDNH NAIL, 6 OR MORE 06/22/2022 20291-ONGGPNN NAIL, 6 OR MORE 09/28/2022 78371-WXFMATW NAIL, 6 OR MORE 12/28/2022 97504-SGTFZLQ NAIL, 6 OR MORE 04/05/2023 91372-CIUTPBN NAIL, 6 OR MORE 10/01/2011 08408-ESBKIUZ NAIL, 6 OR MORE 12/03/2011 82496-AIYKWSU NAIL, 6 OR MORE 03/03/2012 45267-PIUBDSS NAIL, 6 OR MORE 06/02/2012 94531-UMOBDRP NAIL, 6 OR MORE 11/03/2012 55838-HIDVHFN NAIL, 6 OR MORE 01/23/2013 38431-LNPJCTN NAIL, 6 OR MORE 04/03/2013 31591-YHVSNPG NAIL, 6 OR MORE 06/28/2013 30060-ZESBMBT NAIL, 6 OR MORE 09/13/2013 42458-RZCDYVB NAIL, 6 OR MORE 12/13/2013 91050-OIXLOBH NAIL, 6 OR MORE 03/22/2014 75036-YOQWHES NAIL, 6 OR MORE 06/21/2014 19601-VYMPSMW NAIL, 6 OR MORE 09/20/2014 85015-NNLXEJQ NAIL, 6 OR MORE 12/06/2014 06769-IXYQZXU NAIL, 6 OR MORE 02/21/2015 44209-AVBOEOW NAIL, 6 OR MORE 05/13/2015 57756-MBBFNSV NAIL, 6 OR MORE 09/09/2015 67807-BQYIADR NAIL, 6 OR MORE 12/02/2015 47630-MGEINYS NAIL, 6 OR MORE 02/24/2016 80064-NDDXHUW NAIL, 6 OR MORE 06/01/2016 18534-USGEMRA NAIL, 6 OR MORE 08/27/2016 66720-HGKOPGK NAIL, 6 OR MORE 12/07/2016 24030-FLCZIHW NAIL, 6 OR MORE 03/11/2017 49823-WDFEEYG NAIL, 6 OR MORE 06/24/2017 28946-ZOMFWTJ NAIL, 6 OR MORE 09/27/2017 24217-NVLNUTG NAIL, 6 OR MORE 12/27/2017 30835-ARQAVTG NAIL, 6 OR MORE 06/02/2018 69393-DHTQWDL NAIL, 6 OR MORE 08/25/2018 31754-SCRTLMZ NAIL, 6 OR MORE 11/24/2018 69279-OZCKOQP NAIL, 6 OR MORE 03/09/2019 67686-EIDFLML NAIL, 6 OR MORE 06/05/2019 56818-GUTFKAD NAIL, 6 OR MORE 09/18/2019 11211-WOXOBEE NAIL, 6 OR MORE 03/11/2020 61597-AHMKEAR NAIL, 6 OR MORE 06/13/2020 00278-MHQBKJC NAIL, 6 OR MORE 09/23/2020 74885-OKIOFIZ NAIL, 1-5 08/17/2024 41432-XOBCMSN NAIL, 1-5 01/20/2024 32399-Owwm Destruction, -14 09/08/2021 35767-Yktl Destruction, -14 06/09/2021 05877-Lbzf Destruction, -14 03/11/2020 37954-Nwds Destruction, -14 06/05/2019 67801-Ruun Destruction, -14 09/18/2019 34802-Rsgz Destruction, -14 03/09/2019 21987-Howu Destruction, 10-2405/13/2015 64098-Agaf Destruction, 10-2402/21/2015 92945-Drim Destruction, 10-2412/06/2014 16100-Vlbz Destruction, 10-2409/20/2014 60706-Obiy Destruction, 10-2406/21/2014 42558-Gszh Destruction, 10-2403/22/2014 50202-Pwrf Destruction, 10-2412/13/2013 57685-Cgrb Destruction, 10-2409/13/2013 76672-Bukn Destruction, 10-2406/28/2013 09564-Hivv Destruction, 10-2404/03/2013 87443-Qdig Destruction, 10-2401/23/2013 51716-Aalg Destruction, 10-2411/03/2012 01471-Fyer Destruction, 10-2406/02/2012 75198-Uubw Destruction, 10-2410/01/2011 11901-Oawy Destruction, 10-2403/03/2012 09597-Mfkg Destruction, 10-2412/03/2011 16395-Wjsncdmm Plate 03/03/2012 09566-Fpfwknhp Plate 12/03/2011 33013-Hxbvfbpd Plate 06/02/2012 32047-Zbeinpae Plate 01/23/2013 98924-Ufxfyvln Plate 04/03/2013 45497-Elqzqwoo Plate 06/28/2013 39806-Regmduyh Plate 09/13/2013 80553-Ffxbsbhk Plate 12/13/2013 66717-Tjbdcvkr Plate 03/22/2014 09686-Bbgtdouu Plate 06/21/2014 44330-Htxscqzi Plate 09/20/2014 11548-Phftfrqu Plate 12/06/2014 05622-Flreieuj Plate 02/21/2015 63243-Yezeprps Plate 05/13/2015 51820-Fopvfvau Plate 12/27/2017 46612-Zvhpdgch Plate 06/05/2019 99928-Dyxudfge Plate 11/24/2018 80082-Dmxbsrga Plate 03/09/2019 25121-Vsmeodha Plate 08/25/2018 47828-Tgttosaw Plate 09/18/2019 01216-Yyulxqkq Plate 03/11/2020 82484-Srckcczk Plate 09/27/2017 03506-Nesomerd Plate 12/07/2016 82962-Ykuhmpfw Plate 08/27/2016 52751-Dymcjgjq Plate 06/01/2016 97367-Panztxgz Plate 02/24/2016 64493-Bhoyfbaz Plate 12/02/2015 64562-Ebpiwnxz Plate 11/03/2012 28784-Tpnqbbuy Plate 09/09/2015 84298-Nmghonst Plate 06/09/2021 76783-Uqrckcaz Plate 06/13/2020 21894-Frpgpjah Plate 09/08/2021 38792-Ohcdzdwa Plate 03/13/2021 10380-Qiafkzgo Plate 09/23/2020 37982-Jxspnvys Plate 01/30/2022 55158-Akzkakmx Plate 06/22/2022 82926-Iznoltjh Plate 01/20/2024 77646-Lbaxtjah Plate 08/17/2024 60621-Coewvxjb Plate Each Additional 09/2022 25399-Cttriugr Plate Each Additional 04/2024 42350-Xhcdyvxe Plate Each Additional 32078-Ladxjddq Plate Each Additional 43909-Jazwjdxk Plate Each Additional 12/2020 54876-Sounpknp Plate Each Additional 11035-Kvpmwsat Plate Each Additional 05899-Yyjyjien Plate Each Additional 13117-Orfebyww Plate Each Additional 13762-Vdltacqg Plate Each Additional 09416-Ydblvvqr Plate Each Additional 61269-Mpfqyown Plate Each Additional 02356-Grjsoqux Plate Each Additional 60861-Vwlmlsgd Plate Each Additional 23192-Httdwsio Plate Each Additional 06/2019 35613-Eooamsdd Plate Each Additional 10/2019 21655-Sracerbf Plate Each Additional 66462-Ukdtafyp Plate Each Additional 67114-Ohvoiyrw Plate Each Additional 07236-Hnblbjvr Plate Each Additional 12/2014 46484-Kauuobxm Plate Each Additional 85488-Ekjompdi Plate Each Additional 13596-Ufkdrrjg Plate Each Additional 08/2014 45951-Dejnxkza Plate Each Additional 08/2014 87826-Rcrdxnvk Plate Each Additional 09/2014 42626-Vcwkvecs Plate Each Additional 02/2014 11408-Qixizaub Plate Each Additional 01/2013 46626-Yvsqofee Plate Each Additional 96765-Cxijcpjm Plate Each Additional 17230-Rdeykupl Plate Each Additional 63808-Wncdzoct Plate Each Additional 85577-Zdphxzfd Plate Each Additional 27221- Debride <25 sq cm 06/13/2020 71612- Debride <25 sq cm 04/05/2023 49125- Debride <25 sq cm 03/15/2025 20885- Debride <25 sq cm 04/02/2025 37082- Debride <25 sq cm 04/30/2025 84916- Debride <25 sq cm 06/07/2025 39346- Debride <25 sq cm 06/18/2025 99631- Debride <25 sq cm 07/02/2025 23268- Debride <25 sq cm 07/16/2025 92784 I&D ABSCESS- SIMPLE,SINGLE 025 86079 I&D ABSCESS- SIMPLE,SINGLE 013 67131 I&D ABSCESS- SIMPLE,SINGLE 013 60501-KKPA SKIN LESIONS, OVER 4 01/24/20 13 30112-XDDG SKIN LESIONS, OVER 4 11/03/19 13 77892-FPHK SKIN LESIONS, OVER 4 04/03/20 13 37386-TBLR SKIN LESIONS, OVER 4 06/28/20 13 11199-WDWS SKIN LESIONS, OVER 4 09/13/20 13 35083-NVLB SKIN LESIONS, OVER 4 12/14/19 14 52487-KHHX SKIN LESIONS, OVER 4 03/22/20 14 15150-ONTX SKIN LESIONS, OVER 4 06/21/20 14 28444-NVZQ SKIN LESIONS, OVER 4 09/20/20 14 35395-SALG SKIN LESIONS, OVER 4 12/06/19 15 30736-GPTG SKIN LESIONS, OVER 4 02/22/20 15 46226-BOAI SKIN LESIONS, OVER 4 05/13/20 15 79333-VXIU SKIN LESIONS, OVER 4 06/13/20 20 40458-MTUT SKIN LESIONS, OVER 4 09/23/20 20 44298-INST SKIN LESIONS, OVER 4 03/11/20 20 00016-UHJX SKIN LESIONS, OVER 4 09/18/20 19 02070-YIVF SKIN LESIONS, OVER 4 03/09/20 19 17329-OBZQ SKIN LESIONS, OVER 4 06/05/20 19 49558-LCFN SKIN LESIONS, OVER 4 11/24/19 19 15639-IXMU SKIN LESIONS, OVER 4 08/25/20 18 42074-CRMT SKIN LESIONS, OVER 4 12/28/19 18 05783-MFUR SKIN LESIONS, OVER 4 06/02/20 18 91412-VMCU SKIN LESIONS, OVER 4 09/27/20 17 50200-CQLI SKIN LESIONS, OVER 4 06/24/20 17 37123-MSEO SKIN LESIONS, OVER 4 12/07/19 17 65475-MECA SKIN LESIONS, OVER 4 03/11/20 17 54034-ZTPG SKIN LESIONS, OVER 4 08/27/20 16 92580-QJSS SKIN LESIONS, OVER 4 06/01/20 16 00942-PPAJ SKIN LESIONS, OVER 4 02/24/20 16 19711-XRWJ SKIN LESIONS, OVER 4 12/02/19 16 83833-YONF SKIN LESIONS, OVER 4 09/09/20 15 48629-OADT SKIN LESIONS, OVER 4 03/15/20 25 10802-OWYO SKIN LESIONS, OVER 4 05/24/20 25 03524-WLJZ SKIN LESIONS, OVER 4 08/17/20 24 88792-JJVW SKIN LESIONS, OVER 4 11/23/19 25 95269-DHNL SKIN LESIONS, OVER 4 05/11/20 24 48440-DJII SKIN LESIONS, OVER 4 01/20/20 24 48886-RZZK SKIN LESIONS, OVER 4 10/21/19 24 66681-OJTN SKIN LESIONS, OVER 4 04/05/20 23 23566-XPNG SKIN LESIONS, OVER 4 07/08/20 23 58627-WGRN SKIN LESIONS, OVER 4 12/29/19 23 55246-REOM SKIN LESIONS, OVER 4 09/28/20 46356-FWQH SKIN LESIONS, OVER 4 06/22/20 92790-AIPU SKIN LESIONS, OVER 4 01/31/20 11318-ZSAX SKIN LESIONS, OVER 4 09/08/20 21 02885-MPND SKIN LESIONS, OVER 4 06/09/20 21 26230-NAKA SKIN LESIONS, OVER 4 12/02/19 21 38494-XHZH SKIN LESIONS, OVER 4 03/13/20 67337-YBWP SKIN LESIONS, 2 TO 4 06/02/20 12 58111-ZTEV SKIN LESIONS, 2 TO 4 03/03/20 12 96842-CHYR SKIN LESIONS, 2 TO 4 12/03/19 12 20286-LZBK SKIN LESIONS, 2 TO 4 10/01/20 11 Next Appt Details Provider Name:Marychuy Kelley , 08/16/2025 08:00:00 AM, [address] [place], [address], Insurance Providers Payer Name Payer Address Payer Phone Subscriber Number Group Number Insured Name Patient Relationship to Insured Coverage Start Date Coverage End Date [facility] [address] [place] [address] [phone] [id number] Casey Ulrich Self - patient is the [...] History Reason Date(Month/Year) ER- blocked arteries [place] [facility] [place] [facility] [place] Possible Heart Attack/Stress Anxiet y/Covid 07/31 [facility]- Bladder [facility] [place] [facility] [place]- [place] pain 10/31 [facility] [place] Pressure wound right ankle - saw nc rakesh [facility]- chest pain 10/2015
--- OUTSIDE RECORDS SUMMARY | 2025-07-31 07:01 | XMS_ITS | Patient Health Record ---
Author Organization [facility] Address [address] [place] [address] Care Team Providers Care Forklift Material Handler Name Role Phone MARC HERNANDEZ Primary Care Provider Ernesto Beck [phone] Allergies No Known Allergies Reason For Referral [...] day(s) Active Ketoconazole 2 % 1 application Meteorological Technician ally Once a day; Duration: 14 day(s) [...] Problem Screening for malignant neoplasm of colon (635886565) Encounter for screening for malignant neoplasm of colon (Z12.11) Active confirmed Problem History of adenomatous polyp of colon (576651552) History of adenomatous polyp of colon (Z86.010) Active confirmed Problem Malignant neoplasm of transverse colon (527468615) 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 Problem Preprocedural examination (532906230022822) Preprocedural examination (Z01.818) Active confirmed Problem History of malignant neoplasm of colon (137591248) History of colon cancer (Z85.038) Active confirmed Problem Constipation (25924113) Constipation, unspecified constipation type (K59.00) Active confirmed Problem Diverticulosis of colon (163205330) Diverticulosis of colon (K57.30) Active confirmed Problem History of gastrointestinal tract bypass (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) Active [...] Provider Diagnosis [facility] [address] [place] [address] 04/04/2025 Ernesto Wu History of adenomato us polyp of colon Z86.010 ; Irritable bowel syndrome K58.9 ; Encounter for screening for malignant neoplasm of colon Z12.11 ; History of colon cancer Z85.038 and Preprocedural examination Z01.818 [facility] [address] [place] [address] 09/12/2024 Ernesto Wu [facility] [address] [place] [address] 10/03/2024 Ernesto Wu [facility] [address] [place] [address] 01/30/2025 Ernesto Wu [facility] [address] [place] [address] 04/05/2025 Ernesto Wu [facility] [address] [place] [address] 05/07/2025 Ernesto Wu Assessments Encounter Date Diagnosis [...] procedure. He will be seen by his building supplies salesperson retail prior to the procedure and I did [...] procedure. He will be seen by his building supplies salesperson retail prior to the procedure and I did [...] procedure. He will be seen by his building supplies salesperson retail prior to the procedure and I did [...] procedure. He will be seen by his building supplies salesperson retail prior to the procedure and I did [...] procedure. He will be seen by his building supplies salesperson retail prior to the procedure and I did [...] Provider Name:Ernesto Wu , 10/01/2025 07:30:00 AM, [address] [place] [address], [id number], Insurance Providers Payer Name Payer Address Payer Phone Subscriber Number Group Number Insured Name Patient Relationship to Insured Coverage Start Date Coverage End Date [facility] [address] [place], [place] [id number] MELISSA ELDER Self - patient is the insured Medical (General) History Medical History History ICD Code Denies [place],CVA,Lung disease,renal disease IDDM Pulmonary sarcoidosis- inactive Spherocytosis [...] stones with Jazlyn Liriano at [facility] Right colectomy 09/[address] 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
--- OUTSIDE RECORDS SUMMARY | 2025-07-31 07:01 | XMS_ITS | Clinical Summary ---
Author Organization [facility], Address [address] [place] [address] [place] [address] Phone Care Team Providers Care Biosecurity Officer Name Role Phone Stuart Will NP Primary Care Provider [phone] Allergies Active Allergy Reactions Criticality Noted Date [...] patient's age to complete this topic [place] [address] [address] Care Teams Biosecurity Officer Relationship Specialty Start Date End Date Stuart Will NP [address] [place] [address] PCP - General Nurse Practitioner 12/06/20
--- OUTSIDE RECORDS SUMMARY | 2025-07-31 07:01 | XMS_ITS | Encounter Summary ---
Author Organization [facility] Address [address] [place] [id number] Phone Care Team Providers Care Seamstress Fitter Name Role Phone Pcp, Unknown Primary Care Provider Stuart Carrasco PHYSICAL THERAPY ASSISTANT Primary Care Provider + Encounter Details Date Type Department Care Team (Late st Contact Info) Description 01/10/2021 Transcribe Orders [facility] [address] [address] [address] [place] [id number] [email or web address] History Tobacco Use Types Packs/Day [...] on filedocumented in this encounter Care Teams Seamstress Fitter Relationship Specialty Start Date End Date Pcp, Unknown PCP - General 11/20/20 04/26/24 Stuart Will NP [address] [facility] [place] [address] PCP - General Nurse Practitioner 04/27/24 documented as of this encounter Additional Source Comments The information contained in this document represents components of the legal health record. It is not the complete legal health record.[facility]
--- NOTE | 2025-07-31 07:56 | A.OFFPC_ITS ---
Intake Visit Reasons: 6 weeks f/up-telehealth Allergies penicillamine Allergy (Unknown, Verified 07/31/25 08:14) unknown Medication List - Last Reconciled 07/31/25 by YOMI Morelos- acetylcysteine (bulk) ea miscellaneous alpha lipoic acid 200 mg PO BID ascorbate calcium (vitamin C) 1.5 grams PO DAILY aspirin (Adult Low Dose Aspirin) 81 mg PO DAILY berberine-herbal comb no.18 500 caps PO BID blood sugar diagnostic (Contour Test Strips) 5 times a day blood-glucose sensor (FreeStyle Nilsa 3 Sensor device) Test blood sugar 4 times per day cholecalciferol (vitamin D3) 1,200 units PO DAILY coenzyme Q10 (Ultra CoQ10) 75 mg PO DAILY diazepam (Valium) 10 mg PO ONCE PRN 1 day dorzolamide 2% 2 drps ophthalmic (eye) DAILY ginkgo biloba 40 mg PO DAILY insulin NPH isoph U-100 human (Humulin N NPH U-100 Insulin (isophane susp)) 30 units subcut BID insulin syringe-needle U-100 (BD Insulin Syringe Ultra-Fine) Use to inject in sulin twice per day ketoconazole 2% 1 appl topical DAILY latanoprost 0.005% 1 drp ophthalmic (eye) QPM [resvertrol ] rosuvastatin 10 mg PO DAILY sulfamethoxazole-trimethoprim 800-160 mg (Bactrim DS) 1 tab PO BID 10 days turmeric (bulk) 95% (Curcumin) 95 ea miscellaneous DAILY vitamin A 2,400 mcg PO DAILY vitamin B complex 1 cap PO DAILY vitamin E mixed units PO zinc 50 mg PO DAILY Tobacco use date assessed: 06/19/25 Dental Screening Dental Screen Date: 06/19/25 HPI 6 weeks f/up-telehealth HPI Details History of Present Illness The patient is a 80-year-old male presenting with ongoing left lower extremity numbness and pain, primarily pain. He has a history of neuropathy and lumbar spinal stenosis, which are contributing to his symptoms. The pain occasionally radiates to his back, although this is infrequent. Currently, he is undergoing physical therapy and reports slight improvement in strength, although he continues to experience significant pain in the left leg. He denies any sudden symptoms of cauda equina syndrome. He is scheduled for a repeat MRI on August 14 to further evaluate his condition. Due to claustrophobia, he has requested medication to help with the MRI procedure, acknowledging that he will need someone else to drive him. Review of Systems - Neurological: Reports ongoing left low er extremity pain and numbness. Denies sudden symptoms of cauda equina syndrome. - Musculoskeletal: Reports pain radiatin g occasionally to the back. - Cardiovascular: Denies active chest pa in. - Respiratory: Denies increased shortnes s of breath. - Vascular: Denies carotid coronary symp toms. Plan 1. Neuropathy The patient continues to experience left lower extremity pain and numbness attributed to neuropathy. He is currently undergoing physical therapy, which has resulted in slight improvement in strength. 2. Lumbar Spinal Stenosis The patient has a history of lumbar spinal stenosis, contributing to his symptoms. A repeat MRI is scheduled for August 14 to assess the condition further. 3. Claustrophobia The patient has requested medication to manage claustrophobia during the MRI procedure. He understands the need for someone else to drive him post- medication. Discussion Notes I discussed with the patient the plan to continue physical therapy and the upcoming MRI to further evaluate his lumbar spinal stenosis. We also addressed his claustrophobia and the need for medication during the MRI, ensuring he understands the requirement for someone else to drive him. Patient Instructions - Continue with physical therapy session s as scheduled. - Attend the MRI appointment on August 14 and take prescribed medication for claustrophobia as directed. - Ensure someone is available to drive y ou home after the MRI. 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 Vitamin D deficiency Cholecystectomy planned Osteoarthritis History of colon cancer CKD (chronic kidney disease) Sarcoidosis Partial nontraumatic amputation of right foot PVD (peripheral vascular disease) Diabetic retinopathy Spherocytosis Skin cancer Peripheral neuropathy Spinal stenosis Renal stones Pulmonary sarcoidosis Diabetes Surgical History History of amputation of foot History of ureter repair H/O splenectomy S/P ureteral reimplantation History of surgical removal of pilonidal cyst History of tonsillectomy and adenoidectomy H/O right hemicolectomy Status post laser lithotripsy of ureteral calculus Hx of cholecystectomy Hx of colonoscopy Family History Mother Thyroid cancer Other Mental health disorder Social History Household Members: Friend(s) Housing: House Are you a primary care clinician to a significant other at home: No Do you presently have visiting nurse or other home services: No Alcohol intake: never Patient Tobacco Use Status: Never used Tobacco e-Cigarette/Vaping Use: Never Used Second Hand Smoke Exposure: No Advance Directives Date on File: 12/02/23 service: No Current occupational status: employed and retired Cognitive needs: No Hearing needs: No Vision needs: No Questionnaire Thrive Questionnaire Date Thrive assessed: 12/26/24 I am a: Patient What is your living situation today?: I have a steady place to live Within the past 12 months, did the food you bought not last and you didn't have the money to get more?: Never true Within the past 12 months, did you worry whether your food would run out before you got money to buy more?: Never true Do you have trouble paying for medicines?: No Do you have trouble getting transportation to medical appointments?: No Do you have trouble paying your heating and electricity bill?: No Do you have trouble taking care of your child, family member or friend?: No Do you have trouble with day-to-day activities such as bathing, preparing meals, shopping, managing finances, etc.?: No Are you currently unemployed and looking for a job?: No Are you interested in more education?: No THRIVE Score: 0 CANDIS-7 AMB Questionnaire CANDSI-7 Date CANDIS - 7 assessed: 06/19/25 Source: Developed by Drs. Ernesto Moscoso, Jodi Alvarado, Sam Deluna and colleagues, with an educational devon from [employer]. Physical exam (Primary Care) Tobacco/Smoking Status: Tobacco use Status Tobacco use date assessed 06/19/25 06/19/25 14:18 Patient Tobacco Use Status Never used Tobacco 07/30/25 16:21 e-Cigarette/Vaping Use Never Used 06/19/25 14:18 Thrive Assessment: Date of Thrive Assessment Date Thrive assessed 12/26/24 06/19/25 14:18 Telehealth Telehealth Telehealth Platform: [employer] Location of provider rendering services: practice address Location of patient: address on file Patient Identification confirmed using: Name, : Yes Telehealth method: video Patient verbally consented to treatment: Yes Patient verbally consented to billing insurance company: Yes Patient informed of any privacy concerns related to visit: Yes Minutes spent on Phone/Video with Pt.: 14 Coding Level of Care Code Tele Est Pt Level 3 (20420) Diagnoses Chronic lower back pain M54.50; G89.29 Spinal stenosis M48.00 Left leg pain M79.605 Assessment & Plan Assessment & Plan (1) Chronic lower back pain: Code(s): M54.50 - Low back pain, unspecified; G89.29 - Other chronic pain Category: Medical (2) Spinal stenosis: Code(s): M48.00 - Spinal stenosis, site unspecified Category: Medical (3) Left leg pain: Code(s): M79.605 - Pain in left leg Category: Medical Plan . Medications: New diazepam (Valium) please take 1 hr before procedure 10 mg PO ONCE PRN 1 tab 0RF preprocedure 1 day
== END 2025-07-31 10:19 | disposition home or self-care (01) ==
LOC: HO.HMCC 06:57
PROVIDERS: PCP Nurse Practitioner Family; Visit Provider Nurse Practitioner Family
DX: M54.50 Low back pain, unspecified (principal); G89.29 Other chronic pain; M48.00 Spinal stenosis, site unspecified; M79.605 Pain in left leg

== ENCOUNTER 2025-08-07 14:07 | Outpatient (RCR) | payer BC, SELFPAY ==
--- NOTE | 2025-06-26 16:33 | MHC.PT.EP ---
[facility] [place] [facility] [place] Office [place] Office [address] Aime Nuno [address] [phone] F: [phone] F: [phone] F: [phone] F: [phone] Physical Therapy Plan of Care Date of Evaluation: 06/26/25 Date of Surgery: NA Diagnosis: L HIP PAIN Assessment: Pt IS 80 YO M REFERRED TO PT FROM DR HERNANDEZ WITH L HIP PAIN. Pt REPORTS L THIGH PAIN. Pt WITH SIGNIF DEGEN CHANGES IN LB PER XRAY. THIS THIGH PAIN MAY BE COMBINATION OF REFERRED SXS FROM LUMBAR AREA AND MM ISSUES FROM PROLONGED SIT/SEDENTARY LIFESTYLE. Pt WITH GENERALIZED WEAKNESS, POOR BALANCE, DECREASED SAFETY. HAS HAD PT IN PAST WHICH HE DESCRIBES BORING , BUT REPORTS HE KNOWS THAT HE HAS TO BEGIN EXERCISE PROGRAM TO HELP WITH HIS PAIN Frequency and Duration: The patient will be seen 2X/WK X 8 WKS Short Term Goals: 1. INCREASED AWARENESS BACK CARE 2. IMPROVED SAFETY WITH TRANSFERS/USE OF ROLLATOR Half-Way Goals: 1. DECREAESD L THIGH PAIN AT LEAST 50% WITH ADLS 2. I HEP WITH DC EX PLAN Treatment Plan: Modalities to reduce pain, spasms and effusion. Manual therapy to restore motion and function. Therapeutic exercise to improve strength and flexibility. Neuromuscular re-education for posture and balance. Therapeutic activities to return to functional activities of daily living. Electronically signed by: FRANCA CASTAÑEDA PT Please sign and return to therapist. Thank you for your referral.
--- NOTE | 2025-09-14 13:46 | MHC.PT.DC ---
[facility] [place] [facility] [place] Office [place] Office [address] Aime Nuno [address] [phone] F: [phone] F: [phone] F: [phone] F: [phone] Physical Therapy Discharge Report Diagnosis: L HIP PAIN Date of Surgery: NA Date of Evaluation: 06/26/25 Date of Discharge: Treatments to Date: 7 Cancellations to Date: 0 No Shows to Date: 0 Discharge Status: Patient Elected to Stop Recommend MD Follow-up Discharge Summary: Pt LAST SEEN 08/07/25. TO HAVE MRI NEXT WEDNESDAY PER ASSESSMENT FROM LAST SESSION BETTER ALLEGRA TO SEATED EX TODAY. DEFERS SUP OR STANDING EX. REPORTS SIGNIF DIFFICULTY GETTING A PARKING SPOT WHICH SET HIM BACK HAS NOT MADE HUGE GAINS IN PT WITH OVERALL POOR TOLERANCE TO THEREX ( BUT HAS BEEN SHOWN THEREX TO HELP WITH OVERALL LE STRENGTHENING TOLERATED NO FURTHER APPTS SCHEDULED Electronically signed by: FRANCA CASTAÑEDA PT Please sign and return to therapist. Thank you for your referral.
== END 2025-09-14 13:47 | disposition home or self-care (01) ==
LOC: HO.PT 14:07
PROVIDERS: PCP Nurse Practitioner Family; Visit Provider Nurse Practitioner Family
DX: M25.552 Pain in left hip (principal)
CPT/HCPCS: 97110; 97162; 97530; 97535

== ENCOUNTER 2025-08-14 20:05 | Outpatient (REF) | payer BC, SELFPAY ==
--- OUTSIDE RECORDS SUMMARY | 2024-06-21 05:30 | XMS_ITS ---
Author Organization [facility] Address [address] [place] [address] Care Team Providers Care Oracle Application Consultant Name Role Phone MARC HERNANDEZ Primary Care Provider Ernesto Beck [phone] REASON FOR VISIT screening, hx polyps,hx colon ca Encounters Encounter Location Date Provider Diagnosis [facility] Outpatient [address] [place] [address] [id number] 06/21/2024 Ernesto Wu Plan Of Treatment Next Appt Details Provider Name:Ernesto Wu , 10/01/2025 07:30:00 AM, [address] [place] [address], [id number], Progress Notes * GILBERTMELISSA KDOB:[birth year] (80 yo M)Acc No.[id number]:06/21/2024 COLON WITH MAC Patient: MELISSA CRUZ Provider: Sheba Wu MD :1945 A ge:79 Y S ex:Male Date:06/21/2024 Address:[address] [place], [place] [phone] Pcp:MARC HERNANDEZ Subjective: * Chief Complaints: * [...] 0 06/21/2024 Generated for Alfredo logan/Lila/Zo on: 10/14/2024 08:15 PM EST
--- OUTSIDE RECORDS SUMMARY | 2024-10-09 02:30 | XMS_ITS ---
Author Organization [facility] Address [address] [place] [address] Care Team Providers Care Clerical Adviser Name Role Phone MARC HERNANDEZ Primary Care Provider Ernesto Beck [phone] REASON FOR VISIT screening, hx polyps,hx colon ca Encounters Encounter Location Date Provider Diagnosis [facility] [place] [address] [place] [phone] 10/09/2024 Ernesto Wu Plan Of Treatment Next Appt Details Provider Name:Ernesto Wu , 10/01/2025 07:30:00 AM, [address] [place] [address], [phone], Progress Notes * KENANMELISSA FUNES KDOB:[birth year] (80 yo M)Acc No.[id number]:10/09/2024 COLON WITH MAC Patient: MELISSA CRUZ Provider: Sheba Wu MD :1945 A ge:79 Y S ex:Male Date:10/09/2024 Address:[address] [place], [place] [phone] Pcp:MARC HERNANDEZ Subjective: * Chief Complaints: * [...] Pending * Provider: Sheba Wu MD Date: 1 Generated for Alfredo logan/Lila/Zo on: 1 10/14/2024 06:23 PM EST
--- OUTSIDE RECORDS SUMMARY | 2025-05-28 09:30 | XMS_ITS ---
Author Organization [facility] Address [address] [place] [address] Care Team Providers Care Orthodontic Treatment Coordinator Name Role Phone Stuart Lozano Primary Care Provider Unav ailable Shane Kelleymie Unavailable [phone] Encounters Encounter Location Date Provider Diagnosis [facility] [address] [place] [address] 05/28/2025 Marychuy Black Plan Of Treatment Next Appt Details Provider Name:Marychuy Kelley , 08/16/2025 08:00:00 AM, [address] [place], [address], Progress Notes * Casey SEWELL KDOB:[birth year] (80 yo M)Acc No.[id number]:05/28/2025 Progress Notes Patient: Casey CRUZ Provider: Karine Kelley DPM :1945 A ge:79 Y S ex:Male Date:05/28/2025 Address:[address] [place] [address] la[place] [id number] Pcp:IVORY Mattson Subjective: * Chief Complaints: * [...] 05/28/2025 Generated for Alfredo logan/Lila/Zo on: 1 10/14/2024 08:15 PM EST
--- OUTSIDE RECORDS SUMMARY | 2025-06-28 09:30 | XMS_ITS ---
Author Organization [facility] Address [address] [place] [address] Care Team Providers Care Clinical Nurse Specialist Name Role Phone Stuart Lozano Primary Care Provider Unav ailable Shane Kelleymie Unavailable [phone] Encounters Encounter Location Date Provider Diagnosis [facility] [address] [place] [address] 06/28/2025 Marychuy Kelley Plan Of Treatment Next Appt Details Provider Name:Marychuy Kelley , 08/16/2025 08:00:00 AM, [address] [place], [address], Progress Notes * Casey SEWELL KDOB:[birth year] (80 yo M)Acc No.[id number]:06/28/2025 Progress Note Patient: Casey CRUZ Provider: Karine Kelley DPM :1945 A ge:80 Y S ex:Male Date:06/28/2025 Address:[address] [place] [address] laury [id number] Pcp:IVORY Mattson Subjective: * Chief Complaints: * [...] 06/28/2025 Generated for Alfredo logan/Lila/Zo on: 1 10/14/2024 08:15 PM EST
--- OUTSIDE RECORDS SUMMARY | 2025-07-20 05:30 | XMS_ITS ---
Author Organization [facility] Address [address] [place] [address] Care Team Providers Care Artist Model Name Role Phone MARC HERNANDEZ Primary Care Provider Ernesto Beck [phone] REASON FOR VISIT screening,hx colon ca, hx adenomatous polyp colon Encounters Encounter Location Date Provider Diagnosis [facility] [place] [address] [place] [id number] 07/20/2025 Ernesto Wu Plan Of Treatment Next Appt Details Provider Name:Ernesto Wu , 10/01/2025 07:30:00 AM, [address] [place] [address], [phone], Progress Notes * MELISSA HUNT KDOB:[birth year] (80 yo M)Acc No.[id number]:07/20/2025 COLON WITH MAC Patient: Radha HULL MELISSA Jimenez Provider: Sheba Wu MD :1945 A ge:80 Y S ex:Male Date:07/20/2025 Address:[address] [facility] Pcp:MARC HERNANDEZ Subjective: * Chief Complaints: * [...]
--- OUTSIDE RECORDS SUMMARY | 2025-08-08 22:59 | XMS_ITS | Continuity of Care Document ---
Author Organization [facility] Address [address] [place] [address]- Care Team Providers Care Associate Chief Nurse Name Role Phone Suman BUSTOS, Stuart Linton Primary Care Physician [phone] Encounter 08/01/25 - 08/08/25 [facility] [address], [address] [place] [address]- Attending Physician: Art Mclaughlin Admitting Physician: Art Mclaughlin Referring Physician: Art Mclaughlin Encounter Type: OutPatient One Time Allergies, Adverse Reactions, Alerts No Known Allergies Immunizations Given and Recorded Vaccine Date Status Refusal Reason pneumococcal 23-valent vaccine 02/10/19 Given tetanus/diphtheria/pertussis, acel(Tdap) 1 11/11/18 Given tetanus/diphtheria/pertussis, acel(Tdap) 11/11/18 Given pneumococcal 13-valent vaccine 11/11/18 Given Influenza Virus Vaccine (oldterm) 2 09/19/18 Given 1Result Comment: [11/11/2018] [facility]: 23840-673-41 LOT: [id number] EXP: 07/15/19 2Admin Note: refused Medications alpha-lipoic acid By Mouth, 0 Refills, Maintenance, 07/20/25 2:28:00 PM EDT, Partial fill upon patient request if theprescription is for a schedule II opioid drug. Start Date: 07/20/25 Status: Ordered Medication Dispense Status: Completed Total Allowed Fills: 1 Fills Dispensed: 0 Aspirin Tablet 81 mg, By Mouth, Daily, Refills 0, Maintenance, 06/13/25 10:28:00 AM EDT, Partial fill upon patient request if the prescription is for a schedule II opioid drug. Start Date: 06/13/25 Status: Ordered Medication Dispense Status: Completed Total Allowed Fills: 1 Fills Dispensed: 0 Co Q-10 = 100 mg, By Mouth, Daily, 0 Refills, Maintenance, 07/20/25 2:27:00 PM EDT, Partial fill upon patient request if the prescription is for a schedule II opioid drug. Start Date: 07/20/25 Status: Ordered Medication Dispense Status: Completed Total Allowed Fills: 1 Fills Dispensed: 0 dorzolamide 2% ophthalmic solution 1 drops, Eyes, Both, Daily, # 10 mL, 0 Refills, Maintenance, 06/11/25 10:59:00 PM EDT, Solution, Partial fill upon patient request if the prescription is for a schedule II opioid drug. Start Date: 06/11/25 Status: Ordered Medication Dispense Status: Completed Quantity: 10.0 Unit: mL Total Allowed Fills: 1 Fills Dispensed: 0 Ginkgo Biloba By Mouth, Daily, 0 Refills, Maintenance, 07/20/25 2:28:00 PM EDT, Partial fill upon patient requestif the prescription is for a schedule II opioid drug. Start Date: 07/20/25 Status: Ordered Medication Dispense Status: Completed Total Allowed Fills: 1 Fills Dispensed: 0 Humulin N human recombinant 100 u/ml subcutaneous injection See Instructions, 30 units subcutaneous in the morning, 34 units at night. 60ml for 90 days please,# 60 mL, 6 Refills, Maintenance, 07/05/20 10:32:00 AM EDT, Injection, [facility], 60ml for 90 days please, 180.34, cm, 06/10/20 12:58:00 EDT, Height Start Date: 07/05/20 Status: Ordered Medication Dispense Status: Completed Quantity: 60.0 Unit: mL Total Allowed Fills: 7 Fills Dispensed: 0 latanoprost 0.005% ophthalmic solution 1 drops, Eyes, Both, Daily in PM, # 2.5 mL, 0 Refills, Maintenance, 06/11/25 10:59:00 PM EDT, Solution, Partial fill upon patient request if the prescription is for a schedule II opioid drug. Start Date: 06/11/25 Status: Ordered Medication Dispense Status: Completed Quantity: 2.5 Unit: mL Total Allowed Fills: 1 Fills Dispensed: 0 rosuvastatin 10 mg oral tablet TAKE 1 TABLET BY MOUTH 1 TIME EACH DAY. Start Date: 07/20/25 Status: Ordered Medication Dispense Status: Completed Total Allowed Fills: 1 Fills Dispensed: 0 Turmeric = 500 mg, By Mouth, Daily, 0 Refills, Maintenance, 05/10/20 2:11:00 PM EDT Start Date: 05/10/20 Status: Ordered Medication Dispense Status: Completed Total Allowed Fills: 1 Fills Dispensed: 0 Vitamin A Daily, 0 Refills, Maintenance, 07/20/25 2:26:00 PM EDT, Partial fill upon patient request if the prescription is for a schedule II opioid drug. Start Date: 07/20/25 Status: Ordered Medication Dispense Status: Completed Total Allowed Fills: 1 Fills Dispensed: 0 Vitamin B Comp/Vitamin C/Iron Tablet By Mouth, Daily, Refills 0, Maintenance, 07/20/25 2:27:00 PM EDT, Partial fill upon patient requestif the prescription is for a schedule II opioid drug. Start Date: 07/20/25 Status: Ordered Medication Dispense Status: Completed Total Allowed Fills: 1 Fills Dispensed: 0 Vitamin C = 500 mg, By Mouth, Daily, 0 Refills, Maintenance, 06/15/19 2:23:55 PM EDT Start Date: 06/15/19 Status: Ordered Medication Dispense Status: Completed Total Allowed Fills: 1 Fills Dispensed: 0 Vitamin D3 = 4,000 units, By Mouth, 2 times a day, 0 Refills, Maintenance, 04/18/18 10:06:23 AM EDT Start Date: 04/18/18 Status: Ordered Medication Dispense Status: Completed Total Allowed Fills: 1 Fills Dispensed: 0 Vitamin E By Mouth, 0 Refills, Maintenance, 07/20/25 2:28:00 PM EDT, Partial fill upon patient request if theprescription is for a schedule II opioid drug. Start Date: 07/20/25 Status: Ordered Medication Dispense Status: Completed Total Allowed Fills: 1 Fills Dispensed: 0 Zinc = 50 mg, By Mouth, Daily, 0 Refills, Maintenance, 11/11/18 1:08:15 PM EST Start Date: 11/11/18 Status: Ordered Medication Dispense Status: Completed Total Allowed Fills: 1 Fills Dispensed: 0 Problem List Condition Confirmation Course Effective Dates [...] Active Cancer of transverse colon Confirmed Active Peripheral neuropathy Confirmed Active Spherocytosis 3 Confirmed 1975 Active Spinal stenosis of lumbar region Confirmed Active Tubular adenoma of colon Confirmed Active Venous stasis syndrome Confirmed Active 90537; repeat 2019 2CT scan 3S/P splenectomy Results Radiology Reports * Exam Date Time Procedure Performing Provider Status 07/31/25 8:28 AM [facility] (Verified) Notes: (globa.ly) Reason For Exam: Calculus of kidney RESULT: [facility] Reason: Calculus of kidney COMPARISON: 12/21/2024 FINDINGS: Right kidney: 8.4 cm in length. No hydronephrosis. Normal parenchymal thickness and echotexture. Nostones. No suspicious mass. 1.5 cm exophytic cyst in the lower pole, mildly decreased in size from the previous examination. Left kidney: 10.5 cm in length. No hydronephrosis. Normal parenchymal thickness and echotexture. 4 mm nonobstructing calculus in the upper pole No suspicious mass. IMPRESSION: Solitary 4 mm nonobstructing calculus in the upper pole of the left kidney similar to the previous examination. No other urinary tract calculus. Stable 1.5 cm exophytic cyst in the lower pole of the right kidney. The right kidney remains approximately 2 cm smaller in size than the left, similar to the previous study. WSN: [id number] Ordering Physician: Art Mejias Dictated By: Candelario Lujan MD Dictated Date/Time: 08/02/25 8:55 am Reviewed By: Candelario Lujan MD Signed By: Candelario Lujan MD Signed Date/Time: 08/02/25 8:55 am Transcribed By: ARNOLDO Transcribed Date/Time: 08/02/25 8:49 am Social History Social History Type Response Smoking Status Never (less than 100 in lifetime) entered on: 09/19/18 Sexual Orientation Self described orien tation: ; Lesbian, phipps or homosexual Sex Sex Representation Male (finding) Patient Care team information Care Team Personnel Name: Maribel Bess RN Position: S RN Member Role: Primary Care Nurse Name: Stuart Will NP Position: Reference Physician Member Role: PCP Address: [address] [place] [address] Telecom: Name: Romario Tran RN Position: S RN Member Role: Primary Care Nurse Name: Divya Partida RN Position: S RN Member Role: Primary Care Nurse Name: Jenifer Soto RN Position: S RN Member Role: Primary Care Nurse Name: Patsy May RN Position: S RN Member Role: Primary Care Nurse Name: Cherie Rodarte RN Position: S RN Member Role: Primary Care Nurse Care Team Related Persons Name: JOSE RAI Insurance Providers Guarantor name: MELISSA [facility] Information #: 1 Payer: MEDICARE B Payer Identifier: GLORIA Member Number: [id number] Group Number: NA Subscriber Identifier: [id number] Relationship to Subscriber: self Coverage Type: NA Coverage Verification Date: Telecom: Address: [facility] Information #: 2 Payer: [facility] Payer Identifier: NA Member Number: [id number] Group Number: [id number] Subscriber Identifier: [id number] Relationship to Subscriber: self Coverage Type: Medicare Other Coverage Verification Date: Telecom: Address:
--- OUTSIDE RECORDS SUMMARY | 2025-08-14 20:15 | XMS_ITS | Encounter Summary ---
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 ADMINISTRATOR Primary Care Provider + Encounter Details Date Type Department Care Team (Late st Contact Info) Description 01/10/2021 Transcribe Orders [facility] [address] [address] [address] [place] [phone] [email or web address] Social History Tobacco Use Types Packs/Day Years [...] on filedocumented in this encounter Care Teams Lathe Mechanic Relationship Specialty Start Date End Date Pcp, Unknown PCP - General 11/20/20 04/26/24 Stuart Will NP [address] [place] [address] PCP - General Nurse Practitioner 04/27/24 documented as of this encounter Additional Source Comments The information contained in this document represents components of the legal health record. It is not the complete legal health record.[facility]
--- OUTSIDE RECORDS SUMMARY | 2025-08-14 20:15 | XMS_ITS | Clinical Summary ---
Author Organization [facility] Address [address] [place] [phone] Phone Care Team Providers Care Cco Name Role Phone Stuart Will DIRECTOR MOBILE Primary Care Provider + Social History Tobacco [...] Insurance MEDICARE A MEDICARE A MEDICARE A [facility] MEDICARE A MEDICARE A [facility] MEDICARE A [facility] MEDICARE A [facility] MEDICARE A [facility] MEDICARE A Care Teams Cco Relationship Specialty Start Date End Date Stuart Will NP [facility] [place] [address] PCP - General Nurse Practitioner 04/27/24 Additional Source Comments The information contained in this document represents components of the legal health record. It is not the complete legal health record.[facility]
--- OUTSIDE RECORDS SUMMARY | 2025-08-14 20:15 | XMS_ITS | Patient Health Record ---
[facility] Address [address] [place] [address] Care Team Providers Care Cod Clerk Name Role Phone Stuart Lozano Primary Care Provider Unav ailable Black, Marcyhuy Unavailable [phone] Allergies Allergen (clinical drug ingredient) Drug/Non Drug Allergy documented on EMR Reaction Allergy Type Onset Date Status 12 Hour Nasal [place] Unknown Drug Allergy Active Dust Mites Unknown [...] MG as directed Orally Active Magnesium Not-Taking B33-Szzkxf Active [place] 3-6-9 Not-Taki ng Vitamin A Active Aspirin [...] Problem Acquired hammer toe of right foot (8841548565510392 ) Other hammer toe(s) (acquired), right foot (M20.41) Active confirmed Problem Acquired hammer toe of left foot (4408880540063870 ) Other hammer toe(s) (acquired), left foot (M20.42) Active confirmed Problem Polyneuropathy due to diabetes mellitus type I (225480127) 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 Problem Ulcer of toe of right foot (disorder) (9327131408680208 1) Skin ulcer of toe of right foot, limited to breakdown of skin (L97.511) Active confirmed Vital Signs Blood pressure diastolic 72 mm Hg 07/16/2025 Height 5ft 11in in 07/16/2025 Blood pressure systolic 115 mm Hg 07/16/2025 Weight 196 lbs 07/16/2025 BMI 27.33 kg/m2 07/16/2025 Procedures Procedure Date Ordered Date Performed Result Body Sit e 72949-USEYJAI NAIL, 1-5 08/17/2024 N/A 99357-Yxobvspn Plate 08/17/2024 N/A 76448-Cijyteik Plate Each Additional 08/17/2024 N/A 30421-BRUR SKIN LESIONS, OVER 4 08/17/2024 N/A 91534-XMHJGTW NAIL, 6 OR MORE 11/23/2024 N/A 60053-HXRI SKIN LESIONS, OVER 4 11/23/2024 N/A 48136-KBZWIFI NAIL, 6 OR MORE 03/15/2025 N/A 11710- Debride <25 sq cm 03/15/2025 N/A 60320-RFVK SKIN LESIONS, OVER 4 03/15/2025 N/A 79547- Debride <25 sq cm 04/02/2025 N/A 61672- Debride <25 sq cm 04/30/2025 N/A 09049-SMDEYGS NAIL, 6 OR MORE 05/24/2025 N/A 99543 I&D ABSCESS- SIMPLE,SINGLE 05/24/2025 N/A 95488-GSHF SKIN LESIONS, OVER 4 05/24/2025 N/A 38958- Debride <25 sq cm 06/07/2025 N/A 20023- Debride <25 sq cm 06/18/2025 N/A 15249- Debride <25 sq cm 07/02/2025 N/A 17788- Debride <25 sq cm 07/16/2025 N/A Encounters Encounter Location Date Provider Diagnosis [address] [address] 08/17/2024 Marychuy Black Type 1 diabetes mellitus with diabetic polyneuropathy E10.42 ; Tinea unguium B35.1 ; Ingrown nail L60.0 and Skin ulcer of toe of left foot, limited to breakdown of skin L97.[address] [address] 11/23/2024 Marychuy Black Type 1 diabetes mellitus with diabetic polyneuropathy E10.42 ; Xerosis of skin L85.3 and Tinea unguium B35.[address] [address] 03/15/2025 Marychuy Black Type 1 diabetes mellitus with diabetic polyneuropathy E10.42 ; Xerosis of skin L85.3 ; Tinea unguium B35.1 and Skin ulcer of toe of right foot, limited to breakdown of skin L97.[address] [address] 04/02/2025 Marychuy Black Neuropathic ulcer of right foot, limited to breakdown of skin L97.511 and Type 1 diabetes mellitus with diabetic polyneuropathy E10.[address] [address] 04/30/2025 Marychuy Black Neuropathic ulcer of right foot, limited to breakdown of skin L97.511 and Type 1 diabetes mellitus with diabetic polyneuropathy E10.[address] [address] 05/24/2025 Marychuy Black Type 1 diabetes mellitus with diabetic polyneuropathy E10.42 ; Cellulitis of right toe L03.031 ; Tinea unguium B35.1 and Cutaneous abscess of right foot L02.[address] [address] 06/07/2025 Marychuy Black Type 1 diabetes mellitus with diabetic polyneuropathy E10.42 ; Cellulitis of right toe L03.031 and Skin ulcer of toe of right foot, limited to breakdown of skin L97.[address] [address] 06/18/2025 Marychuy Black Type 1 diabetes mellitus with diabetic polyneuropathy E10.42 and Skin ulcer of toe of right foot, limited to breakdown of skin L97.[address] [address] 07/02/2025 Marychuy Black Type 1 diabetes mellitus with diabetic polyneuropathy E10.42 and Skin ulcer of toe of right foot, limited to breakdown of skin L97.[address] [address] 07/16/2025 Marychuy Black Type 1 diabetes mellitus with diabetic polyneuropathy E10.42 ; Skin ulcer of toe of right foot, limited to breakdown of skin L97.511 ; Other hammer toe(s) (acquired), right foot M20.41 and Other hammer toe(s) (acquired), left foot M20.[address] [address] 08/22/2024 Marychuy Black [address] [address] 11/23/2024 Marychuy Black [address] [place] [address] 04/30/2025 Marychuy Black [facility] [address] [place] [address] 05/01/2025 Marychuy Black [facility] [address] [place] [address] 05/24/2025 Marychuy Black [facility] [address] [address] 05/28/2025 Marychuy Black Cellulitis of right toe L03.031 [facility] [address] [place] [address] 06/01/2025 Marychuy Black Cellulitis of right toe L03.031 [facility] [address] [address] 06/12/2025 Marychuy Black [facility] [place] [address] [facility] [address] [place] [address] 06/18/2025 Marychuy Black Assessments Encounter Date Diagnosis [...] Test Name Order Date Hemoglobin A1c 12/02/2015 64510-GJSDLDE NAIL, 6 OR MORE 11/23/2024 11650-FHMRCMH NAIL, 6 OR MORE 05/24/2025 56759-TASORUR NAIL, 6 OR MORE 07/08/2023 25468-VVUUNZI NAIL, 6 OR MORE 10/21/2023 67022-JWOPVRL NAIL, 6 OR MORE 05/11/2024 93597-ZBLYEFZ NAIL, 6 OR MORE 03/15/2025 36708-LSFGOQC NAIL, 6 OR MORE 12/02/2020 49260-BZZKRUN NAIL, 6 OR MORE 03/13/2021 19345-GXYVFOY NAIL, 6 OR MORE 06/09/2021 54071-YNRPMBT NAIL, 6 OR MORE 09/08/2021 17093-PZITGWJ NAIL, 6 OR MORE 01/30/2022 92509-PLYKQVM NAIL, 6 OR MORE 06/22/2022 55724-NZRQXWO NAIL, 6 OR MORE 09/28/2022 68899-QGMPJVH NAIL, 6 OR MORE 12/28/2022 95813-LPRRMAO NAIL, 6 OR MORE 04/05/2023 45432-AVSNVYF NAIL, 6 OR MORE 10/01/2011 19472-CRCSJSB NAIL, 6 OR MORE 12/03/2011 24309-KBWARXD NAIL, 6 OR MORE 03/03/2012 19765-JEJTOII NAIL, 6 OR MORE 06/02/2012 89730-AGCMMNM NAIL, 6 OR MORE 11/03/2012 36772-QJCZUHZ NAIL, 6 OR MORE 01/23/2013 82567-PUAPYPX NAIL, 6 OR MORE 04/03/2013 05931-THJVFSV NAIL, 6 OR MORE 06/28/2013 74079-DSCRPKY NAIL, 6 OR MORE 09/13/2013 31344-HPVBARN NAIL, 6 OR MORE 12/13/2013 47074-VUJDXEJ NAIL, 6 OR MORE 03/22/2014 05569-IDHZVPF NAIL, 6 OR MORE 06/21/2014 76336-UFOEVDX NAIL, 6 OR MORE 09/20/2014 88339-KEJILAS NAIL, 6 OR MORE 12/06/2014 26971-RXPRUTY NAIL, 6 OR MORE 02/21/2015 21727-IVJJBNP NAIL, 6 OR MORE 05/13/2015 66333-IXTFPDU NAIL, 6 OR MORE 09/09/2015 81445-IJMSNRX NAIL, 6 OR MORE 12/02/2015 06981-KIZYVVF NAIL, 6 OR MORE 02/24/2016 70734-OJMRIZO NAIL, 6 OR MORE 06/01/2016 68553-RJXIIMY NAIL, 6 OR MORE 08/27/2016 66902-TCJYBXJ NAIL, 6 OR MORE 12/07/2016 65438-PKAQLIA NAIL, 6 OR MORE 03/11/2017 49914-KKOGMMG NAIL, 6 OR MORE 06/24/2017 92157-WPAOHGU NAIL, 6 OR MORE 09/27/2017 92064-ASZUSQY NAIL, 6 OR MORE 12/27/2017 27846-OHUKMPR NAIL, 6 OR MORE 06/02/2018 54134-BRSEFJK NAIL, 6 OR MORE 08/25/2018 36418-KVXEDPK NAIL, 6 OR MORE 11/24/2018 30040-ICIKSPL NAIL, 6 OR MORE 03/09/2019 73203-TOQUIQH NAIL, 6 OR MORE 06/05/2019 25540-EVRICFT NAIL, 6 OR MORE 09/18/2019 53746-VLVOYQM NAIL, 6 OR MORE 03/11/2020 40298-OEOUGPX NAIL, 6 OR MORE 06/13/2020 11736-YQPLUQW NAIL, 6 OR MORE 09/23/2020 71647-BSGWLGS NAIL, 1-5 08/17/2024 74283-CQHVYEO NAIL, 1-5 01/20/2024 91181-Npgq Destruction, -14 09/08/2021 99560-Qrqm Destruction, -14 06/09/2021 37261-Johw Destruction, -14 03/11/2020 69832-Nlva Destruction, -14 06/05/2019 00242-Dgzj Destruction, -14 09/18/2019 14713-Losr Destruction, -14 03/09/2019 17983-Fayq Destruction, 10-2405/13/2015 50081-Fkxv Destruction, 10-2402/21/2015 29565-Cypk Destruction, 10-2412/06/2014 86271-Oqkf Destruction, 10-2409/20/2014 00424-Pqrd Destruction, 10-2406/21/2014 49094-Kvnx Destruction, 10-2403/22/2014 35539-Xtvh Destruction, 10-2412/13/2013 86632-Fjuc Destruction, 10-2409/13/2013 92873-Nzzq Destruction, 10-2406/28/2013 15939-Fizl Destruction, 10-2404/03/2013 28972-Gptw Destruction, 10-2401/23/2013 75747-Vtns Destruction, 10-2411/03/2012 84580-Irhw Destruction, 10-2406/02/2012 93017-Mspc Destruction, 10-2410/01/2011 98185-Nejx Destruction, 10-2403/03/2012 02330-Jugd Destruction, 10-2412/03/2011 14132-Ztlutgvf Plate 03/03/2012 89024-Vdzlfqkn Plate 12/03/2011 62701-Wejtjboz Plate 06/02/2012 93021-Rekiohvr Plate 01/23/2013 09489-Ufmcdjzv Plate 04/03/2013 40945-Wratdazl Plate 06/28/2013 73794-Kacrdqhy Plate 09/13/2013 39072-Uaahcvay Plate 12/13/2013 17981-Nhnikjtp Plate 03/22/2014 43097-Cuhnzwln Plate 06/21/2014 00248-Tqoljeux Plate 09/20/2014 50250-Nuddjliv Plate 12/06/2014 81095-Ivlyfzbo Plate 02/21/2015 76224-Nrvqxxuk Plate 05/13/2015 37612-Khutmwhi Plate 12/27/2017 22901-Qessbkon Plate 06/05/2019 11073-Ceplhnvs Plate 11/24/2018 39699-Zugwcjgx Plate 03/09/2019 89757-Agptzhdj Plate 08/25/2018 61711-Gvdjpscf Plate 09/18/2019 79515-Rflqfuet Plate 03/11/2020 98094-Gotgnmgh Plate 09/27/2017 78870-Ccfjtkga Plate 12/07/2016 80431-Hjntemdk Plate 08/27/2016 50382-Bqrblxhm Plate 06/01/2016 67790-Bcfyfcsk Plate 02/24/2016 12193-Tzanmtth Plate 12/02/2015 28083-Ehvrbwro Plate 11/03/2012 15962-Cibwdmik Plate 09/09/2015 43759-Deyipwru Plate 06/09/2021 07753-Otnhkgxa Plate 06/13/2020 41950-Rxavcckf Plate 09/08/2021 49438-Jqlbdhrz Plate 03/13/2021 08330-Dbenlpfg Plate 09/23/2020 18746-Ysyeuglo Plate 01/30/2022 28583-Msbgvlbh Plate 06/22/2022 22801-Gmfnxdfr Plate 01/20/2024 56719-Zelvzxcz Plate 08/17/2024 78056-Elsvsjlc Plate Each Additional 09/2022 23289-Cuprjgxu Plate Each Additional 04/2024 49019-Quyhscuy Plate Each Additional 59851-Nhsguvil Plate Each Additional 21769-Pezczmsr Plate Each Additional 12/2020 68780-Ptgowyrh Plate Each Additional 05772-Emqqieav Plate Each Additional 29528-Zmejfknr Plate Each Additional 76095-Msppwerr Plate Each Additional 11860-Tivbdedh Plate Each Additional 22355-Dnuktjpr Plate Each Additional 71990-Vlxqsfky Plate Each Additional 15943-Dozpesgc Plate Each Additional 80848-Abhholiy Plate Each Additional 37152-Kpejpqba Plate Each Additional 06/2019 39744-Ilhxzgsr Plate Each Additional 10/2019 41764-Iiubpmfq Plate Each Additional 72414-Lzzvqglk Plate Each Additional 43175-Njvshezm Plate Each Additional 42856-Numeobmy Plate Each Additional 12/2014 23165-Zxawlwwu Plate Each Additional 08298-Kkcqbptg Plate Each Additional 11073-Neyutwmh Plate Each Additional 08/2014 51315-Rorzfldy Plate Each Additional 08/2014 65885-Lajhvqkk Plate Each Additional 09/2014 49780-Zkjrdeyk Plate Each Additional 02/2014 73075-Qmuqfbvb Plate Each Additional 01/2013 58827-Nonsspqv Plate Each Additional 16831-Pwuhckgj Plate Each Additional 38779-Axfbdtks Plate Each Additional 35560-Axbivmjv Plate Each Additional 21183-Fhvhlqkw Plate Each Additional 98881- Debride <25 sq cm 06/13/2020 42603- Debride <25 sq cm 04/05/2023 33703- Debride <25 sq cm 03/15/2025 80481- Debride <25 sq cm 04/02/2025 40307- Debride <25 sq cm 04/30/2025 29504- Debride <25 sq cm 06/07/2025 66989- Debride <25 sq cm 06/18/2025 28736- Debride <25 sq cm 07/02/2025 06966- Debride <25 sq cm 07/16/2025 89396 I&D ABSCESS- SIMPLE,SINGLE 025 85035 I&D ABSCESS- SIMPLE,SINGLE 013 97013 I&D ABSCESS- SIMPLE,SINGLE 013 27825-NBCM SKIN LESIONS, OVER 4 01/24/20 13 01528-TCKY SKIN LESIONS, OVER 4 11/03/19 13 82403-IMMB SKIN LESIONS, OVER 4 04/03/20 13 17696-YZEJ SKIN LESIONS, OVER 4 06/28/20 13 36265-BVDQ SKIN LESIONS, OVER 4 09/13/20 13 54873-BGAN SKIN LESIONS, OVER 4 12/14/19 14 78070-SWZM SKIN LESIONS, OVER 4 03/22/20 14 94694-KAGA SKIN LESIONS, OVER 4 06/21/20 14 69829-NOEE SKIN LESIONS, OVER 4 09/20/20 14 94222-VXWA SKIN LESIONS, OVER 4 12/06/19 15 00234-JGHP SKIN LESIONS, OVER 4 02/22/20 15 58398-AQLT SKIN LESIONS, OVER 4 05/13/20 15 70268-ROBU SKIN LESIONS, OVER 4 06/13/20 20 36422-JYXY SKIN LESIONS, OVER 4 09/23/20 20 26930-ELTX SKIN LESIONS, OVER 4 03/11/20 20 15117-PZPF SKIN LESIONS, OVER 4 09/18/20 19 97373-DXOE SKIN LESIONS, OVER 4 03/09/20 19 55122-HXZH SKIN LESIONS, OVER 4 06/05/20 19 39635-XYRG SKIN LESIONS, OVER 4 11/24/19 19 82723-ULHK SKIN LESIONS, OVER 4 08/25/20 18 91869-KERY SKIN LESIONS, OVER 4 12/28/19 18 94605-IXOM SKIN LESIONS, OVER 4 06/02/20 18 05132-PUAU SKIN LESIONS, OVER 4 09/27/20 17 50085-PHPP SKIN LESIONS, OVER 4 06/24/20 17 09140-EPIO SKIN LESIONS, OVER 4 12/07/19 17 06401-KGPO SKIN LESIONS, OVER 4 03/11/20 17 49968-TDWC SKIN LESIONS, OVER 4 08/27/20 16 86386-FIIH SKIN LESIONS, OVER 4 06/01/20 16 39896-AMOE SKIN LESIONS, OVER 4 02/24/20 16 83796-EPFL SKIN LESIONS, OVER 4 12/02/19 16 22499-SXTF SKIN LESIONS, OVER 4 09/09/20 15 56481-MDYB SKIN LESIONS, OVER 4 03/15/20 25 76166-TDEA SKIN LESIONS, OVER 4 05/24/20 25 52105-HVTL SKIN LESIONS, OVER 4 08/17/20 24 90281-NMHC SKIN LESIONS, OVER 4 11/23/19 25 80109-GCMM SKIN LESIONS, OVER 4 05/11/20 24 30470-TMKD SKIN LESIONS, OVER 4 01/20/20 24 74286-WTWG SKIN LESIONS, OVER 4 10/21/19 24 15854-JNSR SKIN LESIONS, OVER 4 04/05/20 23 16025-YWID SKIN LESIONS, OVER 4 07/08/20 23 27374-KDAY SKIN LESIONS, OVER 4 12/29/19 23 42288-GSAX SKIN LESIONS, OVER 4 09/28/20 28645-IDBN SKIN LESIONS, OVER 4 06/22/20 30621-CPKO SKIN LESIONS, OVER 4 01/31/20 77871-PNDA SKIN LESIONS, OVER 4 09/08/20 21 39668-XGYI SKIN LESIONS, OVER 4 06/09/20 21 45317-XBHJ SKIN LESIONS, OVER 4 12/02/19 21 62542-LTOJ SKIN LESIONS, OVER 4 03/13/20 48687-XBIQ SKIN LESIONS, 2 TO 4 06/02/20 12 63986-YQXD SKIN LESIONS, 2 TO 4 03/03/20 12 64718-BJAM SKIN LESIONS, 2 TO 4 12/03/19 12 36385-MUGB SKIN LESIONS, 2 TO 4 10/01/20 11 Next Appt Details Provider Name:Marychuy Kelley , 08/16/2025 08:00:00 AM, [address] [place], [address], Insurance Providers Payer Name Payer Address Payer Phone Subscriber Number Group Number Insured Name Patient Relationship to Insured Coverage Start Date Coverage End Date [facility] [address] [place] [address] [id number] Casey Ulrich Self - patient is the [...] Date(Month/Year) ER- blocked arteries 07/05 [facility] chest [facility] 02/02 [facility]- Possible Heart Attack/Stress Anxiet y/Covid 07/31 [facility]- Bladder [facility]- chest pain 10/31 [facility] Pressure wound right ankle - saw nm [facility]- chest pain 10/2015
--- OUTSIDE RECORDS SUMMARY | 2025-08-14 20:15 | XMS_ITS | Patient Health Record ---
Author Organization [facility] Address [address] [place] [address] Care Team Providers Care Newsagent Name Role Phone MARC HERNANDEZ Primary Care Provider Ernesto Beck [phone] Allergies No Known Allergies Reason For Referral [...] day(s) Active Ketoconazole 2 % 1 application [employer] Once a day; Duration: 14 day(s) [...] Problem Screening for malignant neoplasm of colon (134847242) Encounter for screening for malignant neoplasm of colon (Z12.11) Active confirmed Problem History of adenomatous polyp of colon (598816939) History of adenomatous polyp of colon (Z86.010) Active confirmed Problem Malignant neoplasm of transverse colon (948803781) 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 Problem Preprocedural examination (388293253825650) Preprocedural examination (Z01.818) Active confirmed Problem History of malignant neoplasm of colon (861506649) History of colon cancer (Z85.038) Active confirmed Problem Constipation (93986246) Constipation, unspecified constipation type (K59.00) Active confirmed Problem Diverticulosis of colon (472199736) Diverticulosis of colon (K57.30) Active confirmed Problem History of gastrointestinal tract bypass (539615634) Hx of Billroth II operation (Z98.0) Active confirmed Vital Signs Temperature 97.9 degrees Fahrenheit 04/04/2025 Blood pressure diastolic 01 mm Hg 04/04/2025 Height 71.5 in 04/04/2025 Blood pressure systolic 001 mm Hg 04/04/2025 Weight 196 lbs 04/04/2025 BMI 26.95 kg/m2 04/04/2025 Procedures Procedure Date Ordered Date Performed Result Body Sit e COLONOSCOPY 04/04/2025 N/A Encounters Encounter Location Date Provider Diagnosis [facility] [address] [place] [address] 04/04/2025 Ernesto Wu History of adenomato us polyp of colon Z86.010 ; Irritable bowel syndrome K58.9 ; Encounter for screening for malignant neoplasm of colon Z12.11 ; History of colon cancer Z85.038 and Preprocedural examination Z01.818 [facility] [address] [place] [address] 09/12/2024 Ernesto Wu [facility] [address] [place] [address] 10/03/2024 Ernesto Wu [facility] [address] [place] [address] 01/30/2025 Ernesto Wu [facility] [address] [place] [address] 04/05/2025 Ernesto Wu [facility] [address] [place] [address] 05/07/2025 Ernesto Wu Assessments Encounter Date Diagnosis [...] procedure. He will be seen by his coating line worker prior to the procedure and I did [...] procedure. He will be seen by his coating line worker prior to the procedure and I did [...] procedure. He will be seen by his coating line worker prior to the procedure and I did [...] procedure. He will be seen by his coating line worker prior to the procedure and I did [...] procedure. He will be seen by his coating line worker prior to the procedure and I did [...] Name:Ernesto Wu , 10/01/2025 07:30:00 AM, [address] [place] [address], [phone], Insurance Providers Payer Name Payer Address Payer Phone Subscriber Number Group Number Insured Name Patient Relationship to Insured Coverage Start Date Coverage End Date [facility] [address] [place], [place] [id number] MELISSA ELDER Self - patient is the insured Medical (General) History Medical History History ICD Code Denies [place],CVA,Lung disease,renal disease IDDM Pulmonary sarcoidosis- inactive Spherocytosis [...] surgery for stones with Jazlyn Liriano at [facility] Right colectomy 09/[address] 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
--- OUTSIDE RECORDS SUMMARY | 2025-08-14 20:16 | XMS_ITS | Clinical Summary ---
Author Organization [facility], Address [address] [place] [address] [place] [address] Phone Care Team Providers Care Stock Pitcher Name Role Phone Stuart Will NP Primary Care Provider [phone] Allergies Active Allergy Reactions Criticality Noted Date [...] patient's age to complete this topic [place] [address] [place] [address] Care Teams Stock Pitcher Relationship Specialty Start Date End Date Stuart Will NP [address] [place] [address] PCP - General Nurse Practitioner 12/06/20
== END 2025-08-14 20:06 | disposition home or self-care (01) ==
LOC: HO.MRI 20:05
PROVIDERS: PCP Nurse Practitioner Family; Visit Provider Nurse Practitioner Family
DX: Z13.89 Encounter for screening for other disorder (principal)

== ENCOUNTER 2025-08-17 14:50 | Outpatient (AMB) | payer BC, SELFPAY ==
--- OUTSIDE RECORDS SUMMARY | 2024-06-21 05:30 | XMS_ITS ---
Author Organization [facility] Address [address] [place] [address] Care Team Providers Care Door Captain Name Role Phone MARC HERNANDEZ Primary Care Provider Ernesto Beck [phone] REASON FOR VISIT screening, hx polyps,hx colon ca Encounters Encounter Location Date Provider Diagnosis [facility] [address] [place] [address] [id number] 06/21/2024 Ernesto Wu Plan Of Treatment Next Appt Details Provider Name:Ernesto Wu , 10/01/2025 07:30:00 AM, [address] [place] [address], [phone], Progress Notes * GILBERTMELISSA KDOB:[birth year] (80 yo M)Acc No.[id number]:06/21/2024 COLON WITH MAC Patient: MELISSA CRUZ Provider: Sheba Wu MD :1945 A ge:79 Y S ex:Male Date:06/21/2024 Address:[address] [place], [place] [phone] Pcp:MARC HERNANDEZ Subjective: * Chief Complaints: * [...] 0 06/21/2024 Generated for Alfredo logan/Lila/Zo on: 10/17/2024 04:13 PM EST
--- OUTSIDE RECORDS SUMMARY | 2024-10-09 02:30 | XMS_ITS ---
Author Organization [facility] Address [address] [place] [address] Care Team Providers Care Cloth Coverer Name Role Phone MARC HERNANDEZ Primary Care Provider Ernesto Beck [phone] REASON FOR VISIT screening, hx polyps,hx colon ca Encounters Encounter Location Date Provider Diagnosis [facility] [place] Out[place] [address] [place] [id number] 10/09/2024 Ernesto Wu Plan Of Treatment Next Appt Details Provider Name:Ernesto Wu , 10/01/2025 07:30:00 AM, [address] [place] [address], [phone], Progress Notes * KENANMELISSA FUNES KDOB:[birth year] (80 yo M)Acc No.[id number]:10/09/2024 COLON WITH MAC Patient: MELISSA CRUZ Provider: Sheba Wu MD :1945 A ge:79 Y S ex:Male Date:10/09/2024 Address:[address] [place], [place] [phone] Pcp:MARC HERNANDEZ Subjective: * Chief Complaints: * [...] Date: 1 Generated for Alfredo logan/Lila/Zo on: 10/17/2024 04:13 PM EST
--- OUTSIDE RECORDS SUMMARY | 2025-05-28 09:30 | XMS_ITS ---
Author Organization [facility] Address [address] [place] [address] Care Team Providers Care Valance Cutter Name Role Phone Stuart Lozano Primary Care Provider Unav ailable Shane Kelleymie Unavailable [phone] Encounters Encounter Location Date Provider Diagnosis [facility] [address] [place] [address] 05/28/2025 Marychuy Black Plan Of Treatment Next Appt Details Provider Name:Marychuy Kelley , 09/20/2025 02:00:00 PM, [address] [place], [address], Progress Notes * Casey SEWELL KDOB:[birth year] (80 yo M)Acc No.[id number]:05/28/2025 Progress Notes Patient: Casey CRUZ Provider: Karine Kelley DPM :1945 A ge:79 Y S ex:Male Date:05/28/2025 Address:[address] [place] [address] la[place] [id number] Pcp:IVORY Mattson Subjective: * Chief Complaints: * [...] 05/28/2025 Generated for Alfredo logan/Lila/Zo on: 1 10/17/2024 04:13 PM EST
--- OUTSIDE RECORDS SUMMARY | 2025-06-28 09:30 | XMS_ITS ---
Author Organization [facility] Address [address] [place] [address] Care Team Providers Care Barrel Inspector Tight Name Role Phone Stuart Lozano Primary Care Provider Unav ailable Marychuy Kelley Unavailable [phone] Encounters Encounter Location Date Provider Diagnosis [facility] [address] [place] [address] 06/28/2025 Marychuy Kelley Plan Of Treatment Next Appt Details Provider Name:Marychuy Kelley , 09/20/2025 02:00:00 PM, [address] [place], [address], Progress Notes * Casey SEWELL KDOB:[birth year] (80 yo M)Acc No.[id number]:06/28/2025 Progress Note Patient: Casey CRUZ Provider: Karine Kelley DPM :1945 A ge:80 Y S ex:Male Date:06/28/2025 Address:[address] [place] [address] laury [id number] Pcp:IVORY Mattson Subjective: * Chief Complaints: * [...] 06/28/2025 Generated for Alfredo logan/Lila/Zo on: 1 10/17/2024 04:12 PM EST
--- OUTSIDE RECORDS SUMMARY | 2025-07-20 05:30 | XMS_ITS ---
Author Organization [facility] Address [address] [place] [address] Care Team Providers Care Door Liner Helper Name Role Phone MARC HERNANDEZ Primary Care Provider Ernesto Beck [phone] REASON FOR VISIT screening,hx colon ca, hx adenomatous polyp colon Encounters Encounter Location Date Provider Diagnosis [facility] Outpatient [address] [place] [phone] 07/20/2025 Ernesto Wu Plan Of Treatment Next Appt Details Provider Name:Ernesto Wu , 10/01/2025 07:30:00 AM, [address] [place] [address], [id number], Progress Notes * MELISSA HUNT KDOB:[birth year] (80 yo M)Acc No.[id number]:07/20/2025 COLON WITH MAC Patient: Radha HULL MELISSA Jimenez Provider: Sheba Wu MD :1945 A ge:80 Y S ex:Male Date:07/20/2025 Address:[address] [facility] Pcp:MARC HERNANDEZ Subjective: * Chief Complaints: * 1 . Screening,hx colon ca, hx adenomatous polyp colon. * Medical History: Objective: * Vitals: Assessment: Plan: * Treatment: * * The named appointment provid er may or may not be the originator of this progress note, and it is not deemed complete until electronically signed by the appointment provider. Sign off status: Pending * Provider: Sheba Wu MD Date: 1 Generated for Alfredo logan/Lila/Zo on: 1 10/17/2024 04:13 PM EST
--- OUTSIDE RECORDS SUMMARY | 2025-08-16 05:15 | XMS_ITS ---
Author Organization [facility] [place] Address [address] [place] [address] Care Team Providers Care Coordinator Of Library Services Name Role Phone Stuart Lozano Primary Care Provider Unav ailable Black, Marychuy Unavailable [phone] Allergies Allergen (clinical drug ingredient) Drug/Non Drug Allergy documented on EMR Reaction Allergy Type Onset Date Status 12 Hour Nasal [place] Unknown Drug Allergy Active Dust Mites Unknown Allergy Active REASON FOR VISIT At Risk Footcare, Skin problem(s) Medications Medication SIG (Take, Route, Frequency, Duration) Notes Start Date End Date Status Berberine HCI 500 MG as directed Orally Active Vitamin D3 Active P14-Yporrj Active Vitamin B Complex - as directed Orally Active Flax Seed Oil Active Keflex Not-Taking Metaform Not-Taking Lipitor 20 MG 1 tablet Orally Once a day Active Co Q 10 10 MG as directed Orally Active Vitamin A Active Venlafaxine HCl Not- Taking Prevnar 13 Not-Faizanin g Atenolol Not-Taking HumaLOG Not-Taking Vitamin E Not-Taking Vitamin C & E Complex Not-Taking Ascorbic Acid Not-Jacek hensley Nattokinase 100 MG as directed Orally Not-Taking Multivitamins Not-Jacek hensley Extra Depth Orthopedic Shoes (1 Pair) with Customized Heat Molded Multidensity Innersoles (3 Pair) as directed Dx: IDDM/Polyneuropathy (E10.42), Hammertoe Foot Deformity (M20.41,M20.42), Preulcerative Skin Lesion(s) (L85.1) 06/02/2018 Not-Taking Lovastatin Not-Tacos g [place] 3-6-9 Not-Taki ng Aspirin 81 81 MG 1 tablet Orally Once a day Not-Taking Flax Seeds - as directed Orally Not-Taking Magnesium Not-Taking Ciprofloxacin HCl 500 MG 1 tablet Orally every 12 hrs; Duration: 7 days 2025 Not-Taking Ammonium Lactate 12 % 1 application Exte rnally to affected areas of dry skin to feet except for between the toes Twice a day; Duration: 30 days Not-Takin g Timolol Maleate PF N ot-Taking Resveratrol Not-Taki ng Doxycycline Monohydrate 100 MG 1 capsule Orally Twice a day; Duration: 10 days 05/24/2025 Active Antibacterial Alginate w/Silv 4.25 X4.25 as directed Externally 05/24/2025 Active Aspirin 81 MG 1 tablet Orally Once a day; Duration: 30 day(s) Active AFO-Hinged as directed Wear Juli ly; Duration: as needed 09/08/2021 Active Turmeric Active Vitamin C 500 MG as directed Orally O nce a day Active Vitamin D Active Zinc Active HumuLIN N Active Social History Tobacco Use: Social History [...] Negative Vital Signs Height 5ft 11in in 08/16/2025 Weight 197 lbs 08/16/2025 BMI 27.47 kg/m2 08/16/2025 Blood pressure systolic 116 mm Hg 08/16/20 25 Blood pressure diastolic 74 mm Hg 025 Procedures Procedure Date Ordered Date Performed Result Body Sit e 24324-UGJZBUZ NAIL, 6 OR MORE 08/16/2025 N/A 92643- Debride <25 sq cm 08/16/2025 N/A 94673-NZGV SKIN LESIONS, OVER 4 08/16/2025 N/A Encounters Encounter Location Date Provider Diagnosis [facility] [place] [address] [place] [address] 08/16/2025 Marychuy Black Type 1 diabetes mellitus with diabetic polyneuropathy E10.42 ; Skin ulcer of toe of right foot, limited to breakdown of skin L97.511 and Tinea unguium B35.1 Assessments Encounter Date Diagnosis (ICD Code) Assessment Notes Treatment Notes Treatment Clinical Notes Section Notes 08/16/2025 Type 1 diabetes mellitus with diabetic polyneuropathy (ICD-10 - E10.42) 08/16/2025 Skin ulcer of toe of right foot, limited to breakdown of skin (ICD-10 - L97.511) 08/16/2025 Tinea unguium (ICD-10 - B35.1) Plan Of Treatment Pending Test Test Name Order Date 60784-VDPXRNM NAIL, 6 OR MORE 08/16/2025 09067- Debride <25 sq cm 08/16/2025 03897-GCEI SKIN LESIONS, OVER 4 08/16/20 25 Next Appt Details Follow Up: 2 Weeks, Reason: Provider Name:Marychuykeila Kelley , 09/20/2025 02:00:00 PM, [address] [place] [address], [phone], Procedure Notes * Category Sub-Category Detail Notes Debride Nail 6-10 Nail debridement Due to the cl inical pathology outlined in the exam findings, performance of this nail treatment is medically necessary as its management by an unskilled/untrained nonprofessional would put this patients foot and overall health at risk. Therefore, debridement to affected nail(s), as described in exam ( T1, T2, T3, T4, TA, T5 ), was performed exclusively by the physician of record to reduce/remove overall nail length, girth, thickness, subungual debris, and necrotic tissue, by manual and/or electrical means through the use of a nail nipper and/or dremel-type tool and cutter grinder, to a more viable healthy nail [...] to maintain effectiveness in symptomatic relief - 69201 Debride skin< 25 sq cm Open wound [...] to presence of NEUROPATHY. Post debridement measurements: 10mm x 7mm x 2 mm. Character of the wound post debridement is stable (75967), The patient is to cont the local wound care as directed Keratoma Treatment Parring or Cutting o f [...] instrumentation by the physician of record - 11389 Progress Notes * Casey HUNT KDOB:[birth year] (80 yo M)Acc No.[id number]:08/16/2025 Progress Notes Patient: Casey CRUZ Provider: Karine Kelley DPM :1945 A ge:80 Y S ex:Male Date:08/16/2025 Address:[address] [place], [place] [id number] Pcp:Stuart Will NP-ARIK Subjective: * Chief Complaints: * A t Risk FootcareSkin problem(s) * HPI: A t Risk footcare: Pt States Last PCP Visit: D ate 0 04/10/2025 S kin problems: Treatments: , Local care consisting of daily distilled water wound cleanse, topical antibiotic as recommended, application of sterile dressing, offloading/pressure reduction via rest, shoe modification, insert modification, accommodative padding, assisted ambulation via cane/ crutch/ walker/ wheelchair/ knee scooter, and surgical debridement, oral antibiotic . * ROS: G eneral/Constitutional: Nausea d enies. V omiting d enies. H manuelito Thirst d enies. L oss appetite d enies. C hills d enies. F atigue d enies.?Fever d enies. N ight Sweats d enies. U nexplained weight loss d enies. U nexplained weight gain d enies. H EENTM: Dentures d enies. D izziness d enies. G lasses/contacts a dmits. R etinopathy d enies. B lurred/double vision d enies. T MJ?denies. D ischarge/drainage d enies. I mplants d enies. S ore throat d enies. D ental implants d enies. H jocelin of hearing d enies. D ifficulty chewing/swallowing/speaking d enies. N ose bleeds d enies. S ore mouth d enies. ? R espiratory: On Oxygen d enies. P neumonia/pleurisy d enies.?Bronchitis d enies. E mphysema d enies. C oughing d enies. C ough blood?denies. S hortness of breath d enies. W heezing d enies. C ardiovascular: Pacemaker d enies. M HEALTH SAFETY SPECIALIST d enies. W PW d enies. C HF d enies. H eart attack d enies. S eptal defect d enies. R apid beat d enies. C hest pain d enies. A trial Fib. d enies. M urmur/Palpitations d enies. G astrointestinal: Hemorrhoids d enies. S tomach/Abdominal pain d enies. D ark blood stool d enies. I rritable bowel d enies. C onstipation d enies. D iarrhea d enies. H ematology: Swelling a dmits. C lots d enies. V aricose Veins d enies. B ruising d enies. B leeding problem d enies. G enitourinary: Blood urine d enies. F requent/Painfu/urination/bladder control d enies. K idney stones d enies. I nfection (UTI) d enies. N ephropathy d enies. s ex trans dis (STD) d enies. P rostate d enies. M usculoskeletal: Hammertoes d enies. B unions d enies. B ack Pain d enies. M uscle Cramps/ Resting d enies. M uscle cramps / walking d enies.?Generalized aches and pains a dmits. W eakness d enies. I nteg.: [place] d enies. S cars d enies. C orns/calluses?denies. I ngrown nails a dmits. P ainful nails a dmits. O pen Sores , admits. R ashes d enies. N eurologic: Difficulty sleeping d enies. B rain disorder d enies. N umbness d enies. B alance trouble d enies. C onfusion d enies. F ainting/blackouts d enies. T ingling d enies. T remors d enies. * Medical History: * Surgical History: a mputation of foot total(partial) 2002cholecystectomy 1975splenectomy 1976tonsillectomy olonoscopy 07/31/19sierra stones- 4 removed- left kidney- renal scan - kidney disease 04/2020 * Hospitalization/Major Diagno stic Procedure: [facility] 10/2015[facility] Pressure wound right ankle - saw minerva bonilla [facility]- chest pain 10/31[facility]- [facility] [...] Social History: T obacco Use: T obacco use other than smoking A re you an other tobacco user? N o Tobacco Control (Standard) T obacco use: N onsmoker A dditional Findings: Tobacco non-user C urrent nonsmoker M iscellaneous: C affeine: yes, frequency:, 2-3 cups per day. Children: no. Exercise: no. Marital status: single. 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 D rug/Alcohol: A DOUG-C (Standard) D id you have a drink containing alcohol in the past year? N o P oints 0 I nterpretation N egative * Medications: T akingCo Q 10 10 MG Capsule as directed Orally Lipitor 20 MG Tablet 1 tablet Orally Once a day Vitamin A U31-Qhumgv Vitamin D3 Flax Seed Oil Vitamin B Complex - Tablet as directed Orally Berberine HCI 500 MG Capsule as directed Orally Vitamin D HumuLIN N Zinc Vitamin C 500 MG Capsule as directed Orally Once a day Turmeric AFO- Hinged as directed Wear Daily Aspirin 81 MG Tablet Chewable 1 tablet Orally Once a day Antibacterial Alginate w/Silv 4.25 X4.25 Pad as directed Externally Doxycycline Monohydrate 100 MG Capsule 1 capsule Orally Twice a day Taking Co Q 10 10 MG Capsule as directed Orally Taking Lipitor 20 MG Tablet 1 tablet Orally Once a day Taking Vitamin A Taking D58-Khnjet Taking Vitamin D3 Taking Flax Seed Oil [...] Release 1 tablet Orally Once a day Hawley 3-6-9 Nattokinase 100 MG Capsule as directed [...] hrs Not-Taking/PRN Timolol Maleate PF Not-Taking/PRN Lovastatin Not- Taking/PRN Magnesium Not-Taking/PRN Flax Seeds - Powder as directed Orally Not-Taking/PRN Aspirin 81 81 MG Tablet Delayed Release 1 tablet Orally Once a day Not- Taking/PRN Hawley 3-6-9 Not-Taking/PRN Nattokinase 100 MG Capsule as [...] 197, BMI: 27.47, Shoe size: 12, BP: 116/74 mm Hg, BS: 104, Ht- cm: 180.34 cm, Wt-k.36 kg. * P ast Orders: L ab:HEMOGLOBIN A1C (GLYCOHEMOGLOBIN) (Order Date - 09/10/2024) (Collection Date & Time - 07/02/2025 08:02 AM) Value Reference Range HEMOGLOBIN A1C % (HH) 5.2 * Examination: O phthalmology Referral: DIABETES EYE EXAM P rocedure Performed: Carrillo Hobson ate of Exam Performed 0 02/08/2025 D iabetic Retinopathy Screening: Y es F indings of Diabetic Eye Exam: n o retinopathy G eneral Examination: GENERAL APPEARANCE: Sheba robertson a pleasant, alert, well nourished, well-developed, well hydrated individual, who demonstrates proper attention to hygiene/body habitus, and is in no acute distress, Pt serves as own historian for office visit today, Denies fever, chills, malaise, lymphadenopathy. ORIENTED: p erson, place, and time. Footwear Evaluation F ootwear Evaluation performed: Y es N eurological: SENSORY: N eurological exam demonstrates inability for patient to distinguish sharp/dull pin prick discrimination, reduced, light touch sensation, reduced, vibration sensation,reduced, proprioception identification, in a stocking fashion, B/L. Test with 5.07 [place] monofilament performed at plantar aspects of 5 varied sites per foot shows sensation absent in at least 2 locations, B/L, Pt relates, cont. anesthesia. V ascular: DP PULSES (B): 1 /4, B/L. PT PULSES (B): 1 /4, B/L. O rthopedic: FOOT MORPHOLOGY: ( -) Charcot collapse/destruction noted at [facility]. DIGITAL DEFORMITIES: A mputation 4,5 rays right , Digital contracture, PIPJ, 2-5 B/L, incompl-reducible to push-up test, no over, nor underlapping, t here is e vidence of shoe producing skin irritation. FOOTWEAR EVALUATION: w orn, non-supportive, shoe gear properties exacerbate patients complaints in relation to their foot/toe deformity. D ermatologic: SKIN FINDINGS: S kin exam reveals Keratotic lesion(s) located at, SUB MTH (s), 1, B/L, Medial plantar, Midfoot,b/l Heel(s), b/l , . ULCER: D istal, T6, LOCATION, SIZE, 8mm X 5mm X 1mm, B ASE, granular, RIM, hyperkeratotic,MACERATED UNDERMINING, absent, TRACKING, Full thickness breakdown of skin, DRAINAGE, serosanguineous, mild, NECROTIC TISSUE, loosely-adherent, yellow slough, MALODOR, absent, CALOR, absent, ERYTHEMA, absent, PAIN ON PALPATION, absent. N ails: NAILS are: E longated, overgrown, dystrophic, lytic, greater than 3mm thick, discolored and friable with crumbly malodorous subungual debris, with dull to no pain on palpation due to neuropathy, T1, T2, T3, T4, T6,, TA, T5. Assessment: * Assessment: 1. T ype 1 diabetes mellitus with diabetic polyneuropathy - E10.42 2 . S kin ulcer of toe of right foot, limited to breakdown of skin - L97.511 (Primary) S pecify :Response to treatment - Improvement 3 . T inea unguium - B35.1 Plan: * Treatment: 2. T ype 1 diabetes mellitus with diabetic polyneuropathy P rocedure: 74973-OZXQ SKIN LESIONS, OVER 4 3. T inea unguium P rocedure: 33682-RMHNZOF NAIL, 6 OR MORE * Procedures: D ebride Nail 6-10: Nail debridement D ue to the clinical pathology outlined in the exam findings, performance of this nail treatment is medically necessary as its management by an unskilled/untrained nonprofessional would put this patients foot and overall health at risk. Therefore, debridement to affected nail(s), as described in exam ( T1, T2, T3, T4, TA, T5 ), was performed exclusively by the physician of record to reduce/remove overall nail length, girth, thickness, subungual debris, and necrotic tissue, by manual and/or electrical means through the use of a nail nipper and/or dremel-type tool and cutter grinder, to a more viable healthy nail [...] to maintain effectiveness in symptomatic relief - 40580. D ebride skin< 25 sq cm: Open [...] to presence of NEUROPATHY. Post debridement measurements: 10mm x 7mm x 2 mm. Character of the wound post debridement is stable (59002), The patient is to cont the local wound care as directed. K eratoma Treatment: Parring or Cutting of Benign Hyperkeratotic Lesion(s) ( -57) More than 4 Lesions - Due to [...] instrumentation by the physician of record - 76724. * Procedure Codes: 1 1721 DEBRIDE NAIL, 6 OR MORE, Modifiers: XS 43814 ACTIVE WOUND CARE/20 CM OR <, Modifiers: XS 31290 TRIM SKIN LESIONS, OVER 4, Modifiers: XS * Preventive Medicine: Counseling: U lcer: T he patient is to cont the local wound care as directed till completely healed. discussed decrease in activity and removal of pressure to the tip of the toe.. * Follow Up: 2 Weeks * Images: Drawing:mobile_08/16 10:31:07 * Sign off status: Completed true * Provider: Karine Kelley DPM Date: 10/16/2024 Generated for Alfredo logan/Lila/Zo on: 10/17/2024 04:14 PM EST History and Physical Notes * [...] footcare Pt States Last PCP Visit: Date: 04/10/2025 Examination Category Sub-Category Detail Notes Category Not es Ingrown Nail INSPECTION: Neurological SENSORY: Neurological exa m demonstrates inability for patient to distinguish sharp/dull pin prick discrimination, reduced, light touch sensation, reduced, vibration sensation,reduced, proprioception identification, in a stocking fashion, B/L. Test with 5.07 [place]-Lawrence monofilament performed at plantar aspects of 5 varied sites per foot shows sensation absent in at least 2 locations, B/L, Pt relates, cont. anesthesia Dermatologic SKIN FINDINGS: Skin exam reveal s Keratotic lesion(s) located at, SUB MTH (s), 1, B/L, Medial plantar, Midfoot,b/l Heel(s), b/l , ULCER: Distal, T6, LOCATION , SIZE, 8mm X 5mm X 1mm, BASE, granular, RIM, hyperkeratotic,MACERATED UNDERMINING, absent, TRACKING, Full thickness breakdown of skin, DRAINAGE, serosanguineous, mild, NECROTIC TISSUE, loosely-adherent, yellow slough, MALODOR, absent, CALOR, absent, ERYTHEMA, absent, PAIN ON PALPATION, absent Orthopedic FOOT MORPHOLOGY: (-) Charcot collapse/teri truction noted at [facility] FOOTWEAR EVALUATION: worn, non-supportiv e, shoe gear properties exacerbate patients complaints in relation to their foot/toe deformity DIGITAL DEFORMITIES: Amputation 4,5 rays right , Digital contracture, PIPJ, 2-5 B/L, incompl-reducible to push-up test, no over, nor underlapping, there is evidence of shoe producing skin irritation General Examination GENERAL APPEARANCE: Reveals a pleasant, alert, well nourished, well-developed, well hydrated individual, who demonstrates proper attention to hygiene/body habitus, and is in no acute distress, Pt serves as own historian for office visit today, Denies fever, chills, malaise, lymphadenopathy ORIENTED: person, place, and t vishal Footwear Evaluation Footwear Evaluation performe d:: Yes Ophthalmology Referral DIABETES EYE EXAM Procedure Perform ed:: Yes Date of Exam Performed: 02/08/2025 Diabetic Retinopathy Screening:: Yes Findings of Diabetic Eye Exam:: no retin [...]
[2025-08-17 14:58] VITALS: BP 102/60; PULSE 87; TEMP 36.9; O2SAT 97; BMI 27.8
--- NOTE | 2025-08-17 14:58 | AM.OFFWIN_ITS ---
Intake Vital Signs 08/17/25 14:58 Height 5 ft 11 in Weight 199 lb BMI 27.8 BP 102/60 Blood Pressure Location Lt brachial Pulse 87 Pulse Source Pulse Oximeter Temp 98.5 F Temp Source Oral Pulse Oximetry (%) 97 Oxygen Delivery Method Room Air Intake Visit Reasons: EP possible blister on big toe/ left foot Intake Note: pt presents with LT foot 2nd toe redness and swelling-unsure if a blister is forming Patient Tobacco Use Status: Never used Tobacco Allergies penicillamine Allergy (Unknown, Verified 08/17/25 15:03) unknown Do you need a note to return to daycare/school/sports/work: No PFSH Medical History Abscess of skin and subcutaneous tissue CAD (coronary artery disease) Neuropathic ulcer of right foot BPH (benign prostatic hyperplasia) Urethral stricture Left foot drop 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 Vitamin D deficiency Cholecystectomy planned Osteoarthritis History of colon cancer CKD (chronic kidney disease) Sarcoidosis Partial nontraumatic amputation of right foot PVD (peripheral vascular disease) Diabetic retinopathy Spherocytosis Skin cancer Peripheral neuropathy Spinal stenosis Renal stones Pulmonary sarcoidosis Diabetes Surgical History History of amputation of foot History of ureter repair H/O splenectomy S/P ureteral reimplantation History of surgical removal of pilonidal cyst History of tonsillectomy and adenoidectomy H/O right hemicolectomy Status post laser lithotripsy of ureteral calculus Hx of cholecystectomy Hx of colonoscopy Family History Mother Thyroid cancer Other Mental health disorder Social History Household Members: Friend(s) Housing: House Are you a primary home health aide caregiver to a significant other at home: No Do you presently have visiting nurse or other home services: No Alcohol intake: never Patient Tobacco Use Status: Never used Tobacco e-Cigarette/Vaping Use: Never Used Second Hand Smoke Exposure: No Advance Directives Date on File: 12/02/23 service: No Current occupational status: employed and retired Cognitive needs: No Hearing needs: No Vision needs: No Physical Exam Vital Signs: Last Vital Signs Temp 98.5 F 08/17/25 14:58 Pulse 87 08/17/25 14:58 BP 102/60 08/17/25 14:58 Pulse Ox 97 08/17/25 14:58 Oxygen Delivery Method Room Air 08/17/25 14:58 BMI result Body Mass Index 27.8 Coding
--- NOTE | 2025-08-17 15:09 | MHC.OFFWIV ---
Intake Vital Signs 08/17/25 14:58 Height 5 ft 11 in Weight 199 lb BMI 27.8 BP 102/60 Blood Pressure Location Lt brachial Pulse 87 Pulse Source Pulse Oximeter Temp 98.5 F Temp Source Oral Pulse Oximetry (%) 97 Oxygen Delivery Method Room Air Intake Visit Reasons: EP possible blister on big toe/ left foot Patient Tobacco Use Status: Never used Tobacco Allergies penicillamine Allergy (Unknown, Verified 08/17/25 15:03) unknown HPI HPI Comments History of Present Illness Details This is a 80-year-old male with a past medical history of insulin-dependent diabetes, hyperlipidemia, coronary artery disease, IBS-D and diabetic neuropathy presenting for evaluation of redness on the distal tip of his left 2nd toe. 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 Kelley yesterday who was the one who noticed the redness. Patient had his toenails clipped yesterday at his podiatry appointment. Dr. Kelley told him that he would have to watch this toe closely for any worsening symptoms. Patient states over the past 6 months he has lost a significant amount of weight and has gone from a size 13 shoe to a size 12. Patient will wear either a size 13 or a size 12 in his not picked it shoe that is most comfortable. Patient believes that his foot is striking the end of the toebox causing this irritation. Patient denies having any fevers, chills, pain in his left foot or episodes of hyperglycemia. 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 Vitamin D deficiency Cholecystectomy planned Osteoarthritis History of colon cancer CKD (chronic kidney disease) Sarcoidosis Partial nontraumatic amputation of right foot PVD (peripheral vascular disease) Diabetic retinopathy Spherocytosis Skin cancer Peripheral neuropathy Spinal stenosis Renal stones Pulmonary sarcoidosis Diabetes Surgical History History of amputation of foot History of ureter repair H/O splenectomy S/P ureteral reimplantation History of surgical removal of pilonidal cyst History of tonsillectomy and adenoidectomy H/O right hemicolectomy Status post laser lithotripsy of ureteral calculus Hx of cholecystectomy Hx of colonoscopy Family History Mother Thyroid cancer Other Mental health disorder Social History Household Members: Friend(s) Housing: House Are you a primary career specialist to a significant other at home: No Do you presently have visiting nurse or other home services: No Alcohol intake: never Patient Tobacco Use Status: Never used Tobacco e-Cigarette/Vaping Use: Never Used Second Hand Smoke Exposure: No Advance Directives Date on File: 12/02/23 service: No Current occupational status: employed and retired Cognitive needs: No Hearing needs: No Vision needs: No Review of Systems Const Denies chills, Denies fatigue and Denies fever(s) Musc Reports no additional complaints and Reports other (No pain in the left foot or left second toe) Skin/Breast Reports lesions (Left second toe) and Reports erythema Neuro Reports no additional complaints Psych Reports no additional complaints Endo Reports no additional complaints and Denies fatigue Armaan/Lymph Reports no additional complaints Physical Exam Vital Signs: Last Vital Signs Temp 98.5 F 08/17/25 14:58 Pulse 87 08/17/25 14:58 BP 102/60 08/17/25 14:58 Pulse Ox 97 08/17/25 14:58 Oxygen Delivery Method Room Air 08/17/25 14:58 BMI result Body Mass Index 27.8 Const Other: Patient is afebrile. General: cooperative, healthy appearing, comfortable, no acute distress, well developed, alert, awake, Physically active and well groomed; No lethargic Orientation/consciousness: patient oriented x3 and No lethargic Limitations: no limitations Skin Other: there is macular erythema measuring 0.5 x 0.25cm on the distal tip of the left 2nd toe without any blistering, warmth or tenderness to touch; no lymphangitis noted on the left foot Neuro General: patient oriented x3 Psych Appearance: grossly normal Mental Status: mental status grossly normal Insight: Good insight present (Psych) Judgement: Good judgement present (Psych) Assessment & Plan Assessment & Plan (1) Toe erythema: Comment: Patient is erythema at the distal end of his left second toe without any blistering or evidence of a secondary cellulitis. Code(s): L53.9 - Erythematous condition, unspecified Plan: Patient will continue to monitor this lesion daily and return on Wednesday for a re-evaluation if the lesion has evolved. Patient is encouraged to wear 1 pair of shoes daily for the next 2 weeks without rotating through his different sized shoes. Antibiotic therapy is deferred at this time. Coding Level of Care Code Est Pt Level 3 (63311) Diagnoses Toe erythema L53.9 Time Spent (min) 20
--- OUTSIDE RECORDS SUMMARY | 2025-08-17 16:13 | XMS_ITS | Clinical Summary ---
Author Organization [facility] Address [address] [place] [phone] Phone Care Team Providers Care Electroplater Apprentice Name Role Phone Stuart Will WARP BLE[employer] VAT TENDER Primary Care Provider + Social History Tobacco [...] Insurance MEDICARE A MEDICARE A MEDICARE A [facility] MEDICARE A MEDICARE A [facility] MEDICARE A [facility] MEDICARE A [facility] MEDICARE A Member Subscriber Plan / Payer (Ef fective 2004-Present) Name:Casey Sewell Member ID:[id number] Relation to Subscriber:Self Name:Casey Sewell Subscriber ID:[id number] Payer ID:[id number] Group ID:Not on file Type:Medicare Address: [facility] [employer] [address] [phone] [facility] MEDICARE A Care Teams Electroplater Apprentice Relationship Specialty Start Date End Date Stuart Will NP [facility] [place] [id number] PCP - General Nurse Practitioner 04/27/24 Additional Source Comments The information contained in this document represents components of the legal health record. It is not the complete legal health record.[facility]
--- OUTSIDE RECORDS SUMMARY | 2025-08-17 16:13 | XMS_ITS | Patient Health Record ---
[facility] Address [address] [place] [address] Care Team Providers Care Food And Nutrition Services Assistant Name Role Phone Stuart Lozano Primary Care Provider Unav ailable Black, Marychuy Unavailable [phone] Allergies Allergen (clinical drug ingredient) Drug/Non Drug Allergy documented on EMR Reaction Allergy Type Onset Date Status 12 Hour Nasal [place] Unknown Drug Allergy Active Dust Mites Unknown [...] Notes Start Date End Date Status Vitamin D Active Vitamin C & E Complex Not-Taking Berberine HCI 500 MG as directed Orally Active Ascorbic Acid Not-Ta Zinc Active Venlafaxine HCl Not- Taking HumuLIN N Active Prevnar 13 Not-Takin g Vitamin D3 Active Nattokinase 100 MG as directed Orally Not-Taking I18-Wdmcsf Active Confluence 3-6-9 Not-Taki ng Vitamin B Complex - as directed Orally Active Multivitamins Not-Ta Flax Seed Oil Active Extra Depth Orthopedic Shoes (1 Pair) with Customized Heat Molded Multidensity Innersoles (3 Pair) as directed Dx: IDDM/Polyneuropathy (E10.42), Hammertoe Foot Deformity (M20.41,M20.42), Preulcerative Skin Lesion(s) (L85.1) 06/02/2018 Not-Taking Turmeric Active Vitamin C 500 MG as directed Orally O nce a day Active Aspirin 81 81 MG 1 tablet Orally Once a day Not-Taking Flax Seeds - as directed Orally Not-Taking Ciprofloxacin HCl 500 MG 1 tablet Orally every 12 hrs; Duration: 7 days 2025 Not-Taking Ammonium Lactate 12 % 1 application Exte rnally to affected areas of dry skin to feet except for between the toes Twice a day; Duration: 30 days Not-Takin g Lovastatin Not-Takin g Timolol Maleate PF N ot-Taking Antibacterial Alginate w/Silv 4.25 X4.25 as directed Externally 05/24/2025 Active Keflex Not-Taking Aspirin 81 MG 1 tablet Orally Once a day; Duration: 30 day(s) Active Metaform Not-Taking Resveratrol Not-Taki ng Doxycycline Monohydrate 100 MG 1 capsule Orally Twice a day; Duration: 10 days 05/24/2025 Active Lipitor 20 MG 1 tablet Orally Once a day Active Co Q 10 10 MG as directed Orally Active Magnesium Not-Taking Vitamin A Active Atenolol Not-Taking AFO-Hinged as directed Wear Juli ly; Duration: as needed 09/08/2021 Active HumaLOG Not-Taking Vitamin E Not-Taking Immunizations Vaccine Route Administration Date Status [...] Problem Acquired hammer toe of right foot ([id number] ) Other hammer toe(s) (acquired), right foot (M20.41) Active confirmed Problem Acquired hammer toe of left foot (6741904891911322 ) Other hammer toe(s) (acquired), left foot (M20.42) Active confirmed Problem Polyneuropathy due to diabetes mellitus type I (373694312) 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 Problem Ulcer of toe of right foot (disorder) (1093062006492415 1) Skin ulcer of toe of right foot, limited to breakdown of skin (L97.511) Active confirmed Vital Signs Blood pressure diastolic 74 mm Hg 08/16/2025 Height 5ft 11in in 08/16/2025 Blood pressure systolic 116 mm Hg 08/16/2025 Weight 197 lbs 08/16/2025 BMI 27.47 kg/m2 08/16/2025 Procedures Procedure Date Ordered Date Performed Result Body Sit e 57210-QERJIEQ NAIL, 1-5 08/17/2024 N/A 19167-Cddqrwci Plate 08/17/2024 N/A 01175-Eepyxkgn Plate Each Additional 08/17/2024 N/A 08667-FPUU SKIN LESIONS, OVER 4 08/17/2024 N/A 09994-LMZRXVS NAIL, 6 OR MORE 11/23/2024 N/A 14650-EKHB SKIN LESIONS, OVER 4 11/23/2024 N/A 33429-XWWHQYN NAIL, 6 OR MORE 03/15/2025 N/A 57688- Debride <25 sq cm 03/15/2025 N/A 57626-ZCXQ SKIN LESIONS, OVER 4 03/15/2025 N/A 68287- Debride <25 sq cm 04/02/2025 N/A 26701- Debride <25 sq cm 04/30/2025 N/A 15455-PPYJNNV NAIL, 6 OR MORE 05/24/2025 N/A 64440 I&D ABSCESS- SIMPLE,SINGLE 05/24/2025 N/A 38200-UYMJ SKIN LESIONS, OVER 4 05/24/2025 N/A 95128- Debride <25 sq cm 06/07/2025 N/A 91716- Debride <25 sq cm 06/18/2025 N/A 96953- Debride <25 sq cm 07/02/2025 N/A 02675- Debride <25 sq cm 07/16/2025 N/A 27352-IGGRHJN NAIL, 6 OR MORE 08/16/2025 N/A 64724- Debride <25 sq cm 08/16/2025 N/A 80819-OTQA SKIN LESIONS, OVER 4 08/16/2025 N/A Encounters Encounter Location Date Provider Diagnosis [address] [address] 08/17/2024 Marychuy Black Type 1 diabetes mellitus with diabetic polyneuropathy E10.42 ; Tinea unguium B35.1 ; Ingrown nail L60.0 and Skin ulcer of toe of left foot, limited to breakdown of skin L97.[address] [address] 11/23/2024 Marychuy Black Type 1 diabetes mellitus with diabetic polyneuropathy E10.42 ; Xerosis of skin L85.3 and Tinea unguium B35.[address] [address] 03/15/2025 Marychuy Black Type 1 diabetes mellitus with diabetic polyneuropathy E10.42 ; Xerosis of skin L85.3 ; Tinea unguium B35.1 and Skin ulcer of toe of right foot, limited to breakdown of skin L97.[address] [address] 04/02/2025 Marychuy Black Neuropathic ulcer of right foot, limited to breakdown of skin L97.511 and Type 1 diabetes mellitus with diabetic polyneuropathy E10.[address] [address] 04/30/2025 Marychuy Black Neuropathic ulcer of right foot, limited to breakdown of skin L97.511 and Type 1 diabetes mellitus with diabetic polyneuropathy E10.[address] [address] 05/24/2025 Marychuy Black Type 1 diabetes mellitus with diabetic polyneuropathy E10.42 ; Cellulitis of right toe L03.031 ; Tinea unguium B35.1 and Cutaneous abscess of right foot L02.[address] [address] 06/07/2025 Marychuy Black Type 1 diabetes mellitus with diabetic polyneuropathy E10.42 ; Cellulitis of right toe L03.031 and Skin ulcer of toe of right foot, limited to breakdown of skin L97.[address] [address] 06/18/2025 Marychuy Black Type 1 diabetes mellitus with diabetic polyneuropathy E10.42 and Skin ulcer of toe of right foot, limited to breakdown of skin L97.[address] [address] 07/02/2025 Marychuy Black Type 1 diabetes mellitus with diabetic polyneuropathy E10.42 and Skin ulcer of toe of right foot, limited to breakdown of skin L97.[address] [address] 07/16/2025 Marychuy Black Type 1 diabetes mellitus with diabetic polyneuropathy E10.42 ; Skin ulcer of toe of right foot, limited to breakdown of skin L97.511 ; Other hammer toe(s) (acquired), right foot M20.41 and Other hammer toe(s) (acquired), left foot M20.[address] [address] 08/16/2025 Marychuy Black Type 1 diabetes mellitus with diabetic polyneuropathy E10.42 ; Skin ulcer of toe of right foot, limited to breakdown of skin L97.511 and Tinea unguium B35.[address] [address] 08/22/2024 Marychuy Black [facility] [address] [address] 11/23/2024 Marychuy Black [facility] [address] [address] 04/30/2025 Marychuy Black [facility] [address] [address] 05/01/2025 Marychuy Black [facility] [address] [address] 05/24/2025 Marychuy Black [facility] [address] 05/28/2025 Marychuy Black Cellulitis of right toe L03.[address] [address] 06/01/2025 Marychuy Black Cellulitis of right toe L03.[address] [address] 06/12/2025 [facility] [address] [address] 06/18/2025 Marychuy Black Assessments Encounter Date Diagnosis [...] breakdown of skin (ICD-10 - L97.511) 08/16/2025 Type 1 diabetes mellitus with diabetic polyneuropathy (ICD-10 - E10.42) 08/16/2025 Skin ulcer of toe of right foot, limited to breakdown of skin (ICD-10 - L97.511) 06/01/2025 Cellulitis of right toe (ICD-10 - L03.031) 05/28/2025 Cellulitis of right toe (ICD-10 - L03.031) 05/24/2025 Cellulitis of right toe (ICD-10 - L03.031) 05/24/2025 Type 1 diabetes mellitus with diabetic polyneuropathy (ICD-10 - E10.42) 04/30/2025 Type 1 diabetes mellitus with diabetic polyneuropathy (ICD-10 - E10.42) 04/30/2025 Neuropathic ulcer of right foot, limited to breakdown of skin (ICD-10 - L97.511) Response to treatment - Unchanged Patient Educated with: WOUND CARE INSTRUCTIONS. pdf (WOUND CARE INSTRUCTIONS. pdf) 04/02/2025 Neuropathic ulcer of right foot, limited to breakdown of skin (ICD-10 - L97.511) Response to treatment - Improvement Patient Educated with: WOUND CARE INSTRUCTIONS. pdf (WOUND CARE INSTRUCTIONS. pdf) 03/15/2025 Type 1 diabetes mellitus with diabetic polyneuropathy (ICD-10 - E10.42) 03/15/2025 Xerosis of skin (ICD-10 - L85.3) 11/23/2024 Type 1 diabetes mellitus with diabetic polyneuropathy (ICD-10 - E10.42) 11/23/2024 Xerosis of skin (ICD-10 - L85.3) 06/07/2025 Cellulitis of right toe (ICD-10 - L03.031) 06/07/2025 Type 1 diabetes mellitus with diabetic polyneuropathy (ICD-10 - E10.42) 06/07/2025 Skin ulcer of toe of right foot, limited to breakdown of skin (ICD-10 - L97.511) 11/23/2024 Tinea unguium (ICD-10 - B35.1) 03/15/2025 Tinea unguium (ICD-10 - B35.1) 04/02/2025 Type 1 diabetes mellitus with diabetic polyneuropathy (ICD-10 - E10.42) 05/24/2025 Tinea unguium (ICD-10 - B35.1) 07/02/2025 Skin ulcer of toe of right foot, limited to breakdown of skin (ICD-10 - L97.511) 07/16/2025 Other hammer toe(s) (acquired), right foot (ICD-10 - M20.41) Patient Educated with: DIABETIC FOOT CARE INSTRUCTIONS. pdf (DIABETIC FOOT CARE INSTRUCTIONS. pdf) 08/17/2024 Ingrown nail (ICD-10 - L60.0) 08/17/2024 Skin ulcer of toe of left foot, limited to breakdown of skin (ICD-10 - L97.521) 07/16/2025 Other hammer toe(s) (acquired), left foot (ICD-10 - M20.42) 08/16/2025 Tinea unguium (ICD-10 - B35.1) 05/24/2025 Cutaneous abscess of right foot (ICD-10 - L02.611) 03/15/2025 Skin ulcer of toe of right foot, limited to breakdown of skin (ICD-10 - L97.511) Plan Of Treatment Pending Test Test Name Order Date Hemoglobin A1c 12/02/2015 31544-UHCBJPW NAIL, 6 OR MORE 01/23/2013 12060-CJJXSJC NAIL, 6 OR MORE 12/06/2014 44908-IXAVPOM NAIL, 6 OR MORE 11/03/2012 87179-VIIRZPX NAIL, 6 OR MORE 12/03/2011 66150-NMFPXTF NAIL, 6 OR MORE 03/09/2019 98646-YLTKCBM NAIL, 6 OR MORE 02/21/2015 24990-XGAFRKJ NAIL, 6 OR MORE 11/23/2024 02806-OQTAFVZ NAIL, 6 OR MORE 03/15/2025 21031-WUWIEUV NAIL, 6 OR MORE 05/24/2025 38496-NKRCXKY NAIL, 6 OR MORE 06/24/2017 54494-MFNUCDJ NAIL, 6 OR MORE 12/07/2016 42414-LHLOOWJ NAIL, 6 OR MORE 08/27/2016 27642-CAKFVKS NAIL, 6 OR MORE 08/16/2025 11833-BIOWSKZ NAIL, 6 OR MORE 04/03/2013 95594-VEZKEGT NAIL, 6 OR MORE 06/28/2013 69047-PDMGQYX NAIL, 6 OR MORE 03/03/2012 23730-FGKKHMS NAIL, 6 OR MORE 10/01/2011 13980-ULBILFI NAIL, 6 OR MORE 06/02/2012 73111-HSPJEQH NAIL, 6 OR MORE 09/13/2013 06929-FSUFOOZ NAIL, 6 OR MORE 12/13/2013 45189-CCFLLTH NAIL, 6 OR MORE 03/22/2014 68380-QBUNWVY NAIL, 6 OR MORE 06/21/2014 91064-KXULAKH NAIL, 6 OR MORE 09/20/2014 60194-PPDHZJI NAIL, 6 OR MORE 05/13/2015 47317-BMSWPUW NAIL, 6 OR MORE 09/09/2015 19731-FPPLKFH NAIL, 6 OR MORE 12/02/2015 45973-NWJXZEO NAIL, 6 OR MORE 02/24/2016 77932-FPGTHEI NAIL, 6 OR MORE 06/01/2016 26261-CCUYCQG NAIL, 6 OR MORE 03/11/2017 29026-TMVLJTY NAIL, 6 OR MORE 09/27/2017 75396-BRCRHLB NAIL, 6 OR MORE 12/27/2017 84744-LXJZHPG NAIL, 6 OR MORE 06/02/2018 99731-QMITRMO NAIL, 6 OR MORE 08/25/2018 99189-EIUACJG NAIL, 6 OR MORE 11/24/2018 56735-VZBMBEN NAIL, 6 OR MORE 06/05/2019 14086-QGFCAJY NAIL, 6 OR MORE 09/18/2019 86911-TVHCRGZ NAIL, 6 OR MORE 03/11/2020 89999-IZPMHIU NAIL, 6 OR MORE 06/13/2020 41196-TSUGEPU NAIL, 6 OR MORE 09/23/2020 76821-DNOHIMZ NAIL, 6 OR MORE 12/02/2020 33776-LAWKLOD NAIL, 6 OR MORE 03/13/2021 79176-CYGFVQI NAIL, 6 OR MORE 06/09/2021 39131-FDMIYWY NAIL, 6 OR MORE 09/08/2021 65141-PRYCIVD NAIL, 6 OR MORE 01/30/2022 42747-RKSXWZE NAIL, 6 OR MORE 06/22/2022 50013-INTAEUQ NAIL, 6 OR MORE 09/28/2022 57895-DMWROEU NAIL, 6 OR MORE 12/28/2022 34479-UJCTZEI NAIL, 6 OR MORE 04/05/2023 83592-WUVEMHT NAIL, 6 OR MORE 07/08/2023 93402-EQVDGFM NAIL, 6 OR MORE 10/21/2023 57687-SBWJYCR NAIL, 6 OR MORE 05/11/2024 45120-NPPKRPC NAIL, 1-5 01/20/2024 77424-SDNFNTW NAIL, 1-5 08/17/2024 85219-Mnlj Destruction, -14 04/03/2013 29559-Vvsd Destruction, -06/28/2013 88122-Jsmi Destruction, 10-2402/21/2015 38146-Rfkd Destruction, 10-2403/09/2019 26343-Iemz Destruction, 10-2412/03/2011 61545-Xmkl Destruction, 10-2411/03/2012 04480-Hszi Destruction, 10-2412/06/2014 45751-Tpgn Destruction, 10-2401/23/2013 98825-Ojhm Destruction, 10-2409/08/2021 90118-Ytxu Destruction, 10-2406/09/2021 91888-Daun Destruction, 10-2403/11/2020 31356-Flmv Destruction, 10-2409/18/2019 77507-Kbia Destruction, 10-2406/05/2019 44782-Duyc Destruction, 10-2405/13/2015 31868-Hgso Destruction, 10-2409/20/2014 10276-Zgii Destruction, 10-2406/21/2014 81821-Boek Destruction, 10-2403/22/2014 28913-Kbvv Destruction, 10-2412/13/2013 17574-Igis Destruction, 10-2409/13/2013 43751-Dugr Destruction, 10-2406/02/2012 09867-Qsav Destruction, 10-2410/01/2011 47495-Ylib Destruction, 10-2403/03/2012 89155-Htrquwjr Plate 03/03/2012 32311-Aqgqibaa Plate 06/02/2012 43835-Eszbbnrc Plate 09/13/2013 58185-Jmpdvcih Plate 12/13/2013 70584-Eeengakg Plate 03/22/2014 86582-Eclsfwjg Plate 06/21/2014 23176-Clbzvrnp Plate 09/20/2014 18184-Ydfxguer Plate 05/13/2015 29404-Khotzvmn Plate 12/02/2015 37254-Ndgzelpy Plate 06/01/2016 91643-Yrbkfpjg Plate 02/24/2016 22137-Ysneelci Plate 08/25/2018 88073-Djobfvgj Plate 09/27/2017 63650-Nxkmgqyf Plate 09/09/2015 97104-Yyixukep Plate 12/27/2017 44060-Gimusjnh Plate 06/05/2019 27895-Hbdmahmo Plate 09/18/2019 74729-Yrnechby Plate 11/24/2018 57985-Yiseaeef Plate 03/11/2020 65329-Bvwtmcyn Plate 06/13/2020 57895-Yretpvwc Plate 09/23/2020 65417-Yxqcbkuj Plate 03/13/2021 85871-Ixtbiujf Plate 06/09/2021 11244-Cpieesbf Plate 09/08/2021 33425-Xoonytxd Plate 06/22/2022 05974-Yfjphrpe Plate 01/30/2022 82992-Jupyirly Plate 01/20/2024 22328-Axizyrlk Plate 08/17/2024 24531-Fwudarec Plate 12/06/2014 22463-Igmukigw Plate 11/03/2012 28041-Gnxonnyp Plate 12/03/2011 38325-Lctutpah Plate 03/09/2019 56146-Kjeejjtg Plate 02/21/2015 34060-Fggynahi Plate 01/23/2013 11999-Ehjvqcvf Plate 06/28/2013 38399-Mnjlxvht Plate 08/27/2016 61956-Hkpbdlkw Plate 04/03/2013 75946-Kdnrgmac Plate 12/07/2016 44522-Nkfllkxl Plate Each Additional 30750-Rkeyynzb Plate Each Additional 39809-Jkqeltnc Plate Each Additional 54384-Liyrscxb Plate Each Additional 57474-Txpjlewz Plate Each Additional 17230-Nuztsryw Plate Each Additional 51182-Pazcavwa Plate Each Additional 52885-Xhbgjtgw Plate Each Additional 27922-Cqwekash Plate Each Additional 04/2024 29111-Zxypcyei Plate Each Additional 09/2022 25416-Tjzborwo Plate Each Additional 60012-Ntjlupkt Plate Each Additional 71771-Cxmfbmhh Plate Each Additional 29884-Wenhcbjo Plate Each Additional 12/2020 29175-Mtpxfgcf Plate Each Additional 41071-Tkwgyckl Plate Each Additional 06/2019 57673-Nlhvatzw Plate Each Additional 10/2019 08312-Dtpbkkuk Plate Each Additional 29725-Rdyicpbd Plate Each Additional 73373-Yehfpwdy Plate Each Additional 70034-Equjeqrh Plate Each Additional 18344-Bnubenyp Plate Each Additional 70325-Bkafflze Plate Each Additional 50416-Zacldphv Plate Each Additional 96273-Afcjlhys Plate Each Additional 12/2014 60257-Igzcpxpm Plate Each Additional 08/2014 18459-Irtuemqw Plate Each Additional 08/2014 75481-Ilpwgzwu Plate Each Additional 09/2014 60778-Vldgukpu Plate Each Additional 02/2014 59546-Ivldskvl Plate Each Additional 01/2013 73986-Jgznvedl Plate Each Additional 69822-Ldkkeeha Plate Each Additional 37361- Debride <25 sq cm 06/13/2020 88558- Debride <25 sq cm 04/05/2023 79522- Debride <25 sq cm 06/07/2025 56835- Debride <25 sq cm 06/18/2025 14869- Debride <25 sq cm 07/02/2025 67253- Debride <25 sq cm 07/16/2025 42714- Debride <25 sq cm 08/16/2025 64667- Debride <25 sq cm 03/15/2025 29811- Debride <25 sq cm 04/02/2025 36387- Debride <25 sq cm 04/30/2025 66753 I&D ABSCESS- SIMPLE,SINGLE 025 43857 I&D ABSCESS- SIMPLE,SINGLE 013 66142 I&D ABSCESS- SIMPLE,SINGLE 013 73617-ROYT SKIN LESIONS, OVER 4 01/24/20 13 10134-PMYJ SKIN LESIONS, OVER 4 12/06/19 15 38258-UCZR SKIN LESIONS, OVER 4 03/09/20 19 80199-XYIL SKIN LESIONS, OVER 4 11/03/19 13 49984-SZLM SKIN LESIONS, OVER 4 02/22/20 15 13575-NLUG SKIN LESIONS, OVER 4 06/28/20 13 71765-TGZV SKIN LESIONS, OVER 4 04/03/20 13 82307-NNFB SKIN LESIONS, OVER 4 06/24/20 17 96852-CGRI SKIN LESIONS, OVER 4 08/27/20 16 78494-TDKO SKIN LESIONS, OVER 4 05/24/20 30553-HWLB SKIN LESIONS, OVER 4 11/23/19 85548-VTJP SKIN LESIONS, OVER 4 03/15/20 59590-ACFD SKIN LESIONS, OVER 4 08/16/20 27083-PBET SKIN LESIONS, OVER 4 12/07/19 17 37717-PBIW SKIN LESIONS, OVER 4 04/05/20 23 37006-FPWU SKIN LESIONS, OVER 4 12/29/19 23 09723-KHZX SKIN LESIONS, OVER 4 10/21/19 24 56537-JQMR SKIN LESIONS, OVER 4 07/08/20 23 57196-DNNL SKIN LESIONS, OVER 4 08/17/20 24 20044-ETLX SKIN LESIONS, OVER 4 05/11/20 24 06173-FXHV SKIN LESIONS, OVER 4 01/20/20 24 09236-QZEN SKIN LESIONS, OVER 4 09/08/20 21 19074-KZVK SKIN LESIONS, OVER 4 01/31/20 22 60916-TINZ SKIN LESIONS, OVER 4 06/22/20 52288-MOEY SKIN LESIONS, OVER 4 09/28/20 86501-RVIO SKIN LESIONS, OVER 4 06/13/20 79762-KJFT SKIN LESIONS, OVER 4 03/11/20 85240-ZSRK SKIN LESIONS, OVER 4 09/18/20 70191-LFEN SKIN LESIONS, OVER 4 06/05/20 19 57247-VXOP SKIN LESIONS, OVER 4 09/23/20 31936-BAPF SKIN LESIONS, OVER 4 12/02/19 52477-HZYK SKIN LESIONS, OVER 4 03/13/20 85117-FVQA SKIN LESIONS, OVER 4 08/30/20 21 62482-GQBU SKIN LESIONS, OVER 4 09/13/20 13 28645-JMNB SKIN LESIONS, OVER 4 12/14/19 14 60204-WJHF SKIN LESIONS, OVER 4 03/22/20 14 05259-XLUO SKIN LESIONS, OVER 4 06/21/20 14 93502-MKDS SKIN LESIONS, OVER 4 09/20/20 14 27287-TVPY SKIN LESIONS, OVER 4 05/13/20 15 51945-HMVX SKIN LESIONS, OVER 4 12/02/19 16 23676-QLWE SKIN LESIONS, OVER 4 06/01/20 16 87356-QCOC SKIN LESIONS, OVER 4 03/11/20 17 51882-BDRR SKIN LESIONS, OVER 4 02/24/20 16 61003-RXFU SKIN LESIONS, OVER 4 12/28/19 18 58018-XALX SKIN LESIONS, OVER 4 06/02/20 18 55674-UDCR SKIN LESIONS, OVER 4 08/25/20 18 33092-HHMX SKIN LESIONS, OVER 4 11/24/19 19 48961-OTFT SKIN LESIONS, OVER 4 09/09/20 15 50013-GUWB SKIN LESIONS, OVER 4 09/27/20 17 37169-IDYN SKIN LESIONS, 2 TO 4 06/02/20 12 54820-JNAY SKIN LESIONS, 2 TO 4 10/01/20 11 99049-HISG SKIN LESIONS, 2 TO 4 03/03/20 12 76438-KTHV SKIN LESIONS, 2 TO 4 12/03/19 12 Next Appt Details Provider Name:Marychuy Kelley , 09/20/2025 02:00:00 PM, [address] [facility], [place], [address], Insurance Providers Payer Name Payer Address Payer Phone Subscriber Number Group Number Insured Name Patient Relationship to Insured Coverage Start Date Coverage End Date [facility] [address] [place] [address] [id number] Casey Ulrich Self - patient is the [...] History Reason Date(Month/Year) ER- blocked arteries 07/05 [facility] - chest pains 02/02 [facility]- Possible Heart Attack/Stress Anxiet y/Covid 07/31 [facility]- Bladder Scan [facility]- chest pain 10/31 [facility]- Pressure wound right ankle - saw ar rakesh [facility]- chest pain 10/2015
--- OUTSIDE RECORDS SUMMARY | 2025-08-17 16:14 | XMS_ITS | Encounter Summary ---
Author Organization [facility] Address [address] [place] [id number] Phone Care Team Providers Care Business And Services Instructor Name Role Phone Pcp, Unknown Primary Care Provider Stuart Carrasco [employer] Primary Care Provider + Encounter Details Date Type Department Care Team (Late st Contact Info) Description 01/10/2021 Transcribe Orders [facility] [address] [address] [address] [place] [id number] [email or web address] Social History Tobacco Use Types Packs/Day [...] on filedocumented in this encounter Care Teams Business And Services Instructor Relationship Specialty Start Date End Date Pcp, Unknown PCP - General 11/20/20 04/26/24 Stuart Will NP [address] [place] [address] PCP - General Nurse Practitioner 04/27/24 documented as of this encounter Additional Source Comments The information contained in this document represents components of the legal health record. It is not the complete legal health record.[facility]
--- OUTSIDE RECORDS SUMMARY | 2025-08-17 16:14 | XMS_ITS | Patient Health Record ---
Author Organization [facility] Address [address] [place] [address] Care Team Providers Care Community Relations Specialist Name Role Phone MARC HERNANDEZ Primary Care Provider Ernesto Beck [phone] Allergies No Known Allergies Reason For Referral [...] day(s) Active Ketoconazole 2 % 1 application Belt Measurer ally Once a day; Duration: 14 day(s) [...] Problem Screening for malignant neoplasm of colon (363626936) Encounter for screening for malignant neoplasm of colon (Z12.11) Active confirmed Problem History of adenomatous polyp of colon (119860483) History of adenomatous polyp of colon (Z86.010) Active confirmed Problem Malignant neoplasm of transverse colon (050560844) 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 Problem Preprocedural examination (521097974941748) Preprocedural examination (Z01.818) Active confirmed Problem History of malignant neoplasm of colon (727702480) History of colon cancer (Z85.038) Active confirmed Problem Constipation (96357508) Constipation, unspecified constipation type (K59.00) Active confirmed Problem Diverticulosis of colon (059022392) Diverticulosis of colon (K57.30) Active confirmed Problem 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 [address] [place] [phone] 04/04/2025 Ernesto Wu History of adenomato us polyp of colon Z86.010 ; Irritable bowel syndrome K58.9 ; Encounter for screening for malignant neoplasm of colon Z12.11 ; History of colon cancer Z85.038 and Preprocedural examination Z01.818 [facility] [address] [place] [phone] 09/12/2024 Ernesto Wu [facility] [address] [place] [phone] 10/03/2024 Ernesto Wu [facility] [address] [place] [phone] 01/30/2025 Ernesto Wu [facility] [address] [place] [phone] 04/05/2025 Ernesto Wu [facility] [address] [place] [phone] 05/07/2025 Ernesto Wu Assessments Encounter Date Diagnosis [...] procedure. He will be seen by his district commercial superintendent prior to the procedure and I did [...] procedure. He will be seen by his district commercial superintendent prior to the procedure and I did [...] procedure. He will be seen by his district commercial superintendent prior to the procedure and I did [...] procedure. He will be seen by his district commercial superintendent prior to the procedure and I did [...] procedure. He will be seen by his district commercial superintendent prior to the procedure and I did [...] Provider Name:Ernesto Wu , 10/01/2025 07:30:00 AM, [address] [place] [address], [id number], Insurance Providers Payer Name Payer Address Payer Phone Subscriber Number Group Number Insured Name Patient Relationship to Insured Coverage Start Date Coverage End Date [facility] [address] [place], [place] [id number] MELISSA ELDER Self - patient is the [...] surgery for stones with Jazlyn Liriano at [facility] Right colectomy 09/[address] 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
--- OUTSIDE RECORDS SUMMARY | 2025-08-17 16:14 | XMS_ITS | Clinical Summary ---
Author Organization [facility], Address [address] [place] [address] [place] [address] Phone Care Team Providers Care Commercial Sales Representative Name Role Phone Stuart Will NP Primary Care Provider [phone] Allergies Active Allergy Reactions Criticality Noted Date [...] patient's age to complete this topic [place] [place] [address] Care Teams Commercial Sales Representative Relationship Specialty Start Date End Date Stuart Will NP [address] [place] [address] PCP - General Nurse Practitioner 12/06/20
== END 2025-08-17 15:34 | disposition home or self-care (01) ==
PROVIDERS: PCP Nurse Practitioner Family; Visit Provider Physician Assistant
DX: L53.9 Erythematous condition, unspecified (principal)

== ENCOUNTER 2025-08-21 15:25 | Outpatient (AMB) | payer BC, SELFPAY ==
--- OUTSIDE RECORDS SUMMARY | 2024-06-21 05:30 | XMS_ITS ---
Author Organization [facility] Address [address] [place] [address] Care Team Providers Care Machine Tool Rebuilder Name Role Phone MARC HERNANDEZ Primary Care Provider Ernesto Beck [phone] REASON FOR VISIT screening, hx polyps,hx colon ca Encounters Encounter Location Date Provider Diagnosis [facility] [place] [address] [place] [id number] 06/21/2024 Ernesto Wu Plan Of Treatment Next Appt Details Provider Name:Ernesto Wu , 10/01/2025 07:30:00 AM, [address] [place] [address], [id number], Progress Notes * GILBERTMELISSA KDOB:[birth year] (80 yo M)Acc No.[id number]:06/21/2024 COLON WITH MAC Patient: MELISSA CRUZ Provider: Sheba Wu MD :1945 A ge:79 Y S ex:Male Date:06/21/2024 Address:[address] [place], [place] [phone] Pcp:MARC HERNANDEZ Subjective: * Chief Complaints: * 1 . Screening, hx polyps,hx colon ca. * Medical History: Objective: * Vitals: Assessment: Plan: * Treatment: * * The named appointment provid er may or may not be the originator of this progress note, and it is not deemed complete until electronically signed by the appointment provider. Sign off status: Pending * Provider: Sheba Wu MD Date: 0 06/21/2024 Generated for Alfredo logan/Lila/Zo on: 1 10/21/2024 05:04 PM EST
--- OUTSIDE RECORDS SUMMARY | 2024-10-09 02:30 | XMS_ITS ---
Author Organization [facility] Address [address] [place] [address] Care Team Providers Care Bus Trolley And Taxi Instructor Name Role Phone MARC HERNANDEZ Primary Care Provider [place] Beck [phone] REASON FOR VISIT screening, hx polyps,hx colon ca Encounters Encounter Location Date Provider Diagnosis [facility] Outpatient [address] [place] [id number] 10/09/2024 Ernesto Wu Plan Of Treatment Next Appt Details Provider Name:Ernesto Wu , 10/01/2025 07:30:00 AM, [address] [place] [address], [phone], Progress Notes * KENANMELISSA FUNES KDOB:[birth year] (80 yo M)Acc No.[id number]:10/09/2024 COLON WITH MAC Patient: MELISSA CRUZ Provider: Sheba Wu MD :1945 A ge:79 Y S ex:Male Date:10/09/2024 Address:[address] [place], [place] [phone] Pcp:MARC HERNANDEZ Subjective: * Chief Complaints: * [...] 1 Generated for Alfredo logan/Lila/Zo on: 1 10/21/2024 05:05 PM EST
--- OUTSIDE RECORDS SUMMARY | 2025-05-28 09:30 | XMS_ITS ---
Author Organization [facility] Address [address] [place] [address] Care Team Providers Care Event Organizer Name Role Phone Stuart Lozano Primary Care Provider Unav ailable Marychuy Kelley Unavailable [phone] Encounters Encounter Location Date Provider Diagnosis [facility] [address] [place] [address] 05/28/2025 Marychuy Black Plan Of Treatment Next Appt Details Provider Name:Marychuy Kelley , 09/20/2025 02:00:00 PM, [address] [place], [address], Progress Notes * Casey SEWELL KDOB:[birth year] (80 yo M)Acc No.[id number]:05/28/2025 Progress Notes Patient: Casey CRUZ Provider: Karine Kelley DPM :1945 A ge:79 Y S ex:Male Date:05/28/2025 Address:[address] [place] [address] la[place] [id number] Pcp:IVORY Mattson Subjective: * Chief Complaints: * [...] 05/28/2025 Generated for Alfredo logan/Lila/Zo on: 1 10/21/2024 05:04 PM EST
--- OUTSIDE RECORDS SUMMARY | 2025-06-28 09:30 | XMS_ITS ---
Author Organization [facility] Address [address] [place] [address] Care Team Providers Care General Worker Name Role Phone Stuart Lozano Primary Care Provider Unav ailable Marychuy Kelley Unavailable [phone] Encounters Encounter Location Date Provider Diagnosis [facility] [address] [place] [address] 06/28/2025 Marychuy Kelley Plan Of Treatment Next Appt Details Provider Name:Marychuy Kelley , 09/20/2025 02:00:00 PM, [address] [place], [address], Progress Notes * Casey SEWELL KDOB:[birth year] (80 yo M)Acc No.[id number]:06/28/2025 Progress Note Patient: Casey CRUZ Provider: Karine Kelley DPM :1945 A ge:80 Y S ex:Male Date:06/28/2025 Address:[address] [place] [address] laury [id number] Pcp:IVORY Mattson Subjective: * Chief Complaints: * [...] 06/28/2025 Generated for Alfredo logan/Lila/Zo on: 1 10/21/2024 05:04 PM EST
--- OUTSIDE RECORDS SUMMARY | 2025-07-20 05:30 | XMS_ITS ---
Author Organization [facility] Address [address] [place] [address] Care Team Providers Care Boot Repairer Name Role Phone MARC HERNANDEZ Primary Care Provider Ernesto Beck [phone] REASON FOR VISIT screening,hx colon ca, hx adenomatous polyp colon Encounters Encounter Location Date Provider Diagnosis [facility] Outpatient [address] [place] [phone] 07/20/2025 Ernesto Wu Plan Of Treatment Next Appt Details Provider Name:Ernesto Wu , 10/01/2025 07:30:00 AM, [address] [place] [address], [phone], Progress Notes * MELISSA HUNT KDOB:[birth year] (80 yo M)Acc No.[id number]:07/20/2025 COLON WITH MAC Patient: Radha HULL MELISSA Jimenez Provider: Sheba Wu MD :1945 A ge:80 Y S ex:Male Date:07/20/2025 Address:[address] [facility] Pcp:MARC HERNANDEZ Subjective: * Chief Complaints: * [...]
--- OUTSIDE RECORDS SUMMARY | 2025-08-16 05:15 | XMS_ITS ---
Author Organization [facility] [place] Address [address] [place] [address] Care Team Providers Care Boxcar Weigher Name Role Phone Stuart Lozano Primary Care Provider Unav ailable Black, Marychuy Unavailable [phone] Allergies Allergen (clinical drug ingredient) Drug/Non Drug Allergy documented on EMR Reaction Allergy Type Onset Date Status 12 Hour Nasal [place] Unknown Drug Allergy Active Dust Mites Unknown Allergy Active REASON FOR VISIT At Risk Footcare, Skin problem(s) Medications Medication SIG (Take, Route, Frequency, Duration) Notes Start Date End Date Status Berberine HCI 500 MG as directed Orally Active Vitamin D3 Active F93-Moxprt Active Vitamin B Complex - as directed [...] Lesion(s) (L85.1) 06/02/2018 Not-Taking Lovastatin Not-Tacos g [place] 3-6-9 Not-Taki ng Aspirin 81 81 MG [...] Ordered Date Performed Result Body Sit e 36289-XJHAJMU NAIL, 6 OR MORE 08/16/2025 N/A 43205- Debride <25 sq cm 08/16/2025 N/A 98175-YFSL SKIN LESIONS, OVER 4 08/16/2025 N/A Encounters Encounter Location Date Provider Diagnosis [facility] [place] [address] [place] [address] 08/16/2025 Marychuy Black Type 1 diabetes mellitus [...] Treatment Pending Test Test Name Order Date 21130-QDACCKD NAIL, 6 OR MORE 08/16/2025 47622- Debride <25 sq cm 08/16/2025 59510-UHIM SKIN LESIONS, OVER 4 08/16/20 25 Next Appt Details Follow Up: 2 Weeks, Reason: Provider Name:Marychuykeila Kelley , 09/20/2025 02:00:00 PM, [address] [place] [address], [phone], Procedure Notes * Category Sub-Category Detail Notes [...] use of a nail nipper and/or dremel-type rubber roller grinder, to a more viable healthy nail [...] to maintain effectiveness in symptomatic relief - 19486 Debride skin< 25 sq cm Open wound [...] of the wound post debridement is stable (71236), The patient is to cont the local [...] instrumentation by the physician of record - 79330 Progress Notes * Casey HUNT KDOB:[birth year] (80 yo M)Acc No.[id number]:08/16/2025 Progress Notes Patient: Casey CRUZ Provider: Karine Kelley DPM :1945 A ge:80 Y S ex:Male Date:08/16/2025 Address:[address] [place], [place] [id number] Pcp:Stuart Will NP-ARIK Subjective: * Chief Complaints: [...] enies. C ardiovascular: Pacemaker d enies. 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 W PW d enies. C [...] stic Procedure: [facility]2015[facility]- Pressure wound right ankle - saw minerva bonilla [facility]- chest pain 10/31[facility]- [facility]- Bladder Scan [facility]- Possible Heart Attack/Stress Anxiety/Covid 07/31[facility] - chest pains 02/02[facility]- blocked arteries 07/05 [...] tablet Orally Once a day Vitamin A W83-Kdherg Vitamin D3 Flax Seed Oil Vitamin B [...] Once a day Taking Vitamin A Taking V19-Wlxfah Taking Vitamin D3 Taking Flax Seed Oil [...] Release 1 tablet Orally Once a day [place] 3-6-9 Nattokinase 100 MG Capsule as directed [...] tablet Orally Once a day Not- Taking/PRN [place] 3-6-9 Not-Taking/PRN Nattokinase 100 MG Capsule as [...] a stocking fashion, B/L. Test with 5.07 [place] monofilament performed at plantar aspects of 5 [...] diabetes mellitus with diabetic polyneuropathy P rocedure: 16106-WKKT SKIN LESIONS, OVER 4 3. T inea unguium P rocedure: 29970-NDCDKRB NAIL, 6 OR MORE * Procedures: D [...] use of a nail nipper and/or dremel-type rubber roller grinder, to a more viable healthy nail [...] to maintain effectiveness in symptomatic relief - 84032. D ebride skin< 25 sq cm: Open [...] of the wound post debridement is stable (93446), The patient is to cont the local [...] instrumentation by the physician of record - 95390. * Procedure Codes: 1 1721 DEBRIDE NAIL, 6 OR MORE, Modifiers: XS 63558 ACTIVE WOUND CARE/20 CM OR <, Modifiers: XS 21484 TRIM SKIN LESIONS, OVER 4, Modifiers: XS [...] Date: 10/16/2024 Generated for Alfredo logan/Lila/Zo on: 10/21/2024 05:05 PM EST History and Physical Notes * [...] a stocking fashion, B/L. Test with 5.07 [place] monofilament performed at plantar aspects of 5 [...]
[2025-08-21 15:28] VITALS: PULSE 55; O2SAT 95; BMI 27.1
--- NOTE | 2025-08-21 15:28 | A.OFFPC_ITS ---
Vital Signs 08/21/25 15:28 Height 5 ft 11 in Weight 194 lb BMI 27.1 Pulse 55 Pulse Source Pulse Oximeter Pulse Oximetry (%) 95 Oxygen Delivery Method Room Air Comment Patient refused BP reports 109/66 at home . 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 History of Present Illness The patient is a 80-year-old male presenting for a follow-up visit for diabetes management. He has a history of neuropathy affecting his lower extremities. The patient's diabetes is well-managed, with a recent A1c of 5.0. He reports feeling better and has increased his activity by walking more. He sees a medart operator regularly, with his last visit occurring one week ago, and reports that his eye exam is up to date. Social History - Exercise: The patient reports he is wa lking a little bit more. Health Maintenance - The patient's A1c was 5.0, indicating good glycemic control. - He sees a medart operator on a regular basi s, with the last visit one week ago. - The patient reports his eye exam is up to date. Review of Systems - Constitutional: Reports feeling better . - Neurological: Reports a history of cadence ropathy in the lower extremities. Physical Exam General: Cooperative, healthy appearing, comfortable, no acute distress and well developed, using rolling walker Orientation: Patient oriented x3 Limitations: No limitations Head: Normal to inspection Ears: Hearing grossly normal bilaterally Nose: Normal external nose present Face and sinus: Normal facial exam Eyes: Appearance normal, both eyes and all related structures Neck: Normal visual inspection and Yes full ROM Respiratory: Normal respiratory effort and able to speak in complete sentences. Clear to auscultation bilaterally Cardiovascular: Regular rate and rhythm. Normal S1 and S2 GI: Normal to inspection. Soft to palpation and nontender Skin: No rashes or lesions noted Neuro: Patient oriented x3 Extremities: declined foot exam today Results - Labs: A1c was 5.0. Plan 1. Diabetes Mellitus The patient's diabetes is well-controlled with a recent A1c of 5.0. He reports feeling better and has increased his physical activity. Lab orders will be placed for future monitoring. 2. Diabetic Neuropathy The patient has a history of neuropathy in the lower extremities. He maintains regular follow-up with podiatry, with his last visit one week ago. A foot exam was declined during today's visit. Discussion Notes I discussed with the patient his impressive A1c of 5.0, indicating his diabetes is well-controlled. I acknowledged that he is feeling better and walking more. He confirmed that his podiatry and eye exams are up to date. I informed him that lab orders will be entered for future monitoring. Patient Instructions - Your diabetes is well-controlled, as s hown by your recent A1c of 5.0. - Continue walking more as you have been doing. - Continue with your regular podiatry vi sits. - Keep your eye exams up to date. - We will be ordering some labs for you to complete in the near future. 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 Vitamin D deficiency Cholecystectomy planned Osteoarthritis History of colon cancer CKD (chronic kidney disease) Sarcoidosis Partial nontraumatic amputation of right foot PVD (peripheral vascular disease) Diabetic retinopathy Spherocytosis Skin cancer Peripheral neuropathy Spinal stenosis Renal stones Pulmonary sarcoidosis Diabetes Surgical History History of amputation of foot History of ureter repair H/O splenectomy S/P ureteral reimplantation History of surgical removal of pilonidal cyst History of tonsillectomy and adenoidectomy H/O right hemicolectomy Status post laser lithotripsy of ureteral calculus Hx of cholecystectomy Hx of colonoscopy Family History Mother Thyroid cancer Other Mental health disorder Social History Household Members: Friend(s) Housing: House Are you a primary personal care home administrator to a significant other at home: No Do you presently have visiting nurse or other home services: No Alcohol intake: never Patient Tobacco Use Status: Never used Tobacco e-Cigarette/Vaping Use: Never Used Second Hand Smoke Exposure: No Advance Directives Date on File: 12/02/23 service: No Current occupational status: employed and retired Cognitive needs: No Hearing needs: No Vision needs: No Questionnaire Thrive Questionnaire Date Thrive assessed: 12/26/24 I am a: Patient What is your living situation today?: I have a steady place to live Within the past 12 months, did the food you bought not last and you didn't have the money to get more?: Never true Within the past 12 months, did you worry whether your food would run out before you got money to buy more?: Never true Do you have trouble paying for medicines?: No Do you have trouble getting transportation to medical appointments?: No Do you have trouble paying your heating and electricity bill?: No Do you have trouble taking care of your child, family member or friend?: No Do you have trouble with day-to-day activities such as bathing, preparing meals, shopping, managing finances, etc.?: No Are you currently unemployed and looking for a job?: No Are you interested in more education?: No THRIVE Score: 0 CANDIS-7 AMB Questionnaire CANDIS-7 Date CANDIS - 7 assessed: 06/19/25 Source: Developed by Drs. Ernesto Moscoso, Jodi Alvarado, Sam Deluna and colleagues, with an educational devon from [employer]. Physical exam (Primary Care) Vital Signs: Last Vital Signs Pulse 55 08/21/25 15:28 Pulse Ox 95 08/21/25 15:28 Oxygen Delivery Method Room Air 08/21/25 15:28 BMI result Body Mass Index 27.1 Tobacco/Smoking Status: Tobacco use Status Tobacco use date assessed 08/21/25 08/21/25 15:38 Patient Tobacco Use Status Never used Tobacco 08/21/25 15:32 e-Cigarette/Vaping Use Never Used 08/21/25 15:32 Thrive Assessment: Date of Thrive Assessment Date Thrive assessed 12/26/24 08/21/25 15:32 Results AMB Hemoglobin A1c AMB Hemoglobin A1c 5.0 % Last Edit by Sherrie Leroy MA on 08/21/25 16:40 Results Reviewed Results Reviewed: Laboratory Last Values Hgb A1c (Clinic) 5.0 % (4.0-6.0) 08/21/25 16:39 Coding Level of Care Code Est Pt Level 3 (58805) Diagnoses Diabetes E11.9 Assessment & Plan Assessment & Plan (1) Diabetes: Code(s): E11.9 - Type 2 diabetes mellitus without complications Category: Medical Plan . Orders: Orders AMB Hemoglobin A1c Today E11.9 - Type 2 diabetes mellitus without complications Comprehensive [place]. Panel Fast Today E11.9 - Type 2 diabetes mellitus without complications Microalbumin, Random (w Creat) Today E11.9 - Type 2 diabetes mellitus without complications Complete Blood Count Auto Diff Today E11.9 - Type 2 diabetes mellitus without complications TSH reflex Free T4 Today E11.9 - Type 2 diabetes mellitus without complications Lipid Panel Today E11.9 - Type 2 diabetes mellitus without complications UA CC w/rflx Micro + Cult Today E11.9 - Type 2 diabetes mellitus without complications
--- OUTSIDE RECORDS SUMMARY | 2025-08-21 17:04 | XMS_ITS | Clinical Summary ---
Author Organization [facility] Address [address] [place] [phone] Phone Care Team Providers Care Commercial Sales Representative Name Role Phone Stuart Will AUTOMOBILE UPHOLSTERER Primary Care Provider + Social History Tobacco [...] (50+ y ears) (2 of 2 - PCV20 or PCV21) 12/27/2018 12/27/2017 RSV VACCINE (1 - 1-dose 75+ series) 2021 INFLUENZA VACCINE (#1) 2025 COVID-19 VACCINE (2024-2 6 season) 2025 Adult Td,Tdap Booster 11/11/2028 11/11/2018 HEPATITIS A VACCINES Aged Out No long er eligible based on patient's age to complete this topic HIB VACCINES Aged Out No longer eligi ble based on patient's age to complete this topic IPV VACCINES Aged Out No longer eligi ble based on patient's age to complete this topic MENINGOCOCCAL VACCINES (ACWY) Aged Out No longer eligible based on patient's age to complete this topic MENINGOCOCCAL VACCINES (B) Aged Out N o longer eligible based on patient's age to complete this topic Medical Devices Not on file [place] [address] [place] [address] [place] [address] [place] [address] MEDICARE A MEDICARE A MEDICARE A [facility] [place] [address] [place] [address] MEDICARE A [facility] MEDICARE A [facility] MEDICARE A [facility] MEDICARE A Care Teams Commercial Sales Representative Relationship Specialty Start Date End Date Stuart Will NP [facility] [place] [address] PCP - General Nurse Practitioner 04/27/24 Additional Source Comments The information contained in this document represents components of the legal health record. It is not the complete legal health record.[facility]
--- OUTSIDE RECORDS SUMMARY | 2025-08-21 17:04 | XMS_ITS | Patient Health Record ---
[facility] Address [address] [place] [address] Care Team Providers Care Hot Punch Press Operator Name Role Phone Stuart Lozano Primary Care Provider Unav ailable Black, Marychuy Unavailable [phone] Allergies Allergen (clinical drug ingredient) Drug/Non Drug Allergy documented on EMR Reaction Allergy Type Onset Date Status 12 Hour Nasal [place] Unknown Drug Allergy Active Dust Mites Unknown [...] Nattokinase 100 MG as directed Orally Not-Taking B56-Syzezs Active [place] 3-6-9 Not-Taki ng Vitamin B Complex - [...] Problem Acquired hammer toe of right foot (7080263195682828 ) Other hammer toe(s) (acquired), right foot (M20.41) Active confirmed Problem Acquired hammer toe of left foot (3254610462043501 ) Other hammer toe(s) (acquired), left foot (M20.42) Active confirmed Problem Polyneuropathy due to diabetes mellitus type I (494861879) 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 Problem Ulcer of toe of right foot (disorder) (7046169790965652 1) Skin ulcer of toe of right foot, limited to breakdown of skin (L97.511) Active confirmed Vital Signs Blood pressure diastolic 74 mm Hg 08/16/2025 Height 5ft 11in in 08/16/2025 Blood pressure systolic 116 mm Hg 08/16/2025 Weight 197 lbs 08/16/2025 BMI 27.47 kg/m2 08/16/2025 Procedures Procedure Date Ordered Date Performed Result Body Sit e 74135-ENRZBBX NAIL, 6 OR MORE 11/23/2024 N/A 18479-BTHU SKIN LESIONS, OVER 4 11/23/2024 N/A 32263-MTXEWJT NAIL, 6 OR MORE 03/15/2025 N/A 80237- Debride <25 sq cm 03/15/2025 N/A 07415-ETSB SKIN LESIONS, OVER 4 03/15/2025 N/A 23300- Debride <25 sq cm 04/02/2025 N/A 64184- Debride <25 sq cm 04/30/2025 N/A 91587-LPVAIET NAIL, 6 OR MORE 05/24/2025 N/A 95069 I&D ABSCESS- SIMPLE,SINGLE 05/24/2025 N/A 62953-UXAN SKIN LESIONS, OVER 4 05/24/2025 N/A 04811- Debride <25 sq cm 06/07/2025 N/A 46857- Debride <25 sq cm 06/18/2025 N/A 58374- Debride <25 sq cm 07/02/2025 N/A 86179- Debride <25 sq cm 07/16/2025 N/A 03598-NQFNWMS NAIL, 6 OR MORE 08/16/2025 N/A 02477- Debride <25 sq cm 08/16/2025 N/A 22277-SHVG SKIN LESIONS, OVER 4 08/16/2025 N/A Encounters Encounter Location Date Provider Diagnosis [address] [address] 11/23/2024 Marychuy Black Type 1 diabetes mellitus with diabetic polyneuropathy E10.42 ; Xerosis of skin L85.3 and Tinea unguium B35.[address] [address] 03/15/2025 Marychuy Black Type 1 diabetes mellitus with diabetic polyneuropathy E10.42 ; Xerosis of skin L85.3 ; Tinea unguium B35.1 and Skin ulcer of toe of right foot, limited to breakdown of skin L97.[address] [address] 04/02/2025 Marychuy Black Neuropathic ulcer of right foot, limited to breakdown of skin L97.511 and Type 1 diabetes mellitus with diabetic polyneuropathy E10.[address] [address] 04/30/2025 Marychuy Black Neuropathic ulcer of right foot, limited to breakdown of skin L97.511 and Type 1 diabetes mellitus with diabetic polyneuropathy E10.[address] [address] 05/24/2025 Marychuy Black Type 1 diabetes mellitus with diabetic polyneuropathy E10.42 ; Cellulitis of right toe L03.031 ; Tinea unguium B35.1 and Cutaneous abscess of right foot L02.[address] [address] 06/07/2025 Marychuy Black Type 1 diabetes mellitus with diabetic polyneuropathy E10.42 ; Cellulitis of right toe L03.031 and Skin ulcer of toe of right foot, limited to breakdown of skin L97.[address] [address] 06/18/2025 Marychuy Black Type 1 diabetes mellitus with diabetic polyneuropathy E10.42 and Skin ulcer of toe of right foot, limited to breakdown of skin L97.[address] [address] 07/02/2025 Marychuy Black Type 1 diabetes mellitus with diabetic polyneuropathy E10.42 and Skin ulcer of toe of right foot, limited to breakdown of skin L97.[address] [address] 07/16/2025 Marychuy Black Type 1 diabetes mellitus with diabetic polyneuropathy E10.42 ; Skin ulcer of toe of right foot, limited to breakdown of skin L97.511 ; Other hammer toe(s) (acquired), right foot M20.41 and Other hammer toe(s) (acquired), left foot M20.[address] [address] 08/16/2025 Marychuy Black Type 1 diabetes mellitus with diabetic polyneuropathy E10.42 ; Skin ulcer of toe of right foot, limited to breakdown of skin L97.511 and Tinea unguium B35.[address] [address] 08/22/[address] [address] 11/23/[address] [address] 04/30/2025 Marychuy Black [facility] [address] [place] [address] 05/01/2025 Marychuy Black [facility] [address] [place] [address] 05/24/2025 Marychuy Black [facility] [address] [place] [address] 05/28/2025 Marychuy Black Cellulitis of right toe L03.031 [facility] [address] [place] [address] 06/01/2025 Marychuy Black Cellulitis of right toe L03.[address] [facility] [address] 06/12/2025 Marychuy Black [facility] [address] [facility] [address] [place] [address] 06/18/2025 Marychuy Black Assessments Encounter Date Diagnosis [...] B35.1) 03/15/2025 Tinea unguium (ICD-10 - B35.1) 03/15/2025 Skin ulcer of toe of right foot, limited to breakdown of skin (ICD-10 - L97.511) 05/24/2025 Cutaneous abscess of right foot (ICD-10 - L02.611) 07/16/2025 Other hammer toe(s) (acquired), left foot (ICD-10 - M20.42) 08/16/2025 Tinea unguium (ICD-10 - B35.1) Plan Of Treatment Pending Test Test Name Order Date Hemoglobin A1c 12/02/2015 47036-FHKSRQN NAIL, 6 OR MORE 08/16/2025 96503-VSLDJWI NAIL, 6 OR MORE 11/23/2024 67595-SXSIYIM NAIL, 6 OR MORE 05/24/2025 44451-DWBLDAD NAIL, 6 OR MORE 07/08/2023 26611-EOUDKNC NAIL, 6 OR MORE 10/21/2023 57952-BGZDKWM NAIL, 6 OR MORE 05/11/2024 97572-WPKJIOK NAIL, 6 OR MORE 03/15/2025 40422-HSDWSHQ NAIL, 6 OR MORE 12/02/2020 46282-KJRMQQA NAIL, 6 OR MORE 03/13/2021 62430-TOHZOMB NAIL, 6 OR MORE 06/09/2021 82871-DHUWCQA NAIL, 6 OR MORE 09/08/2021 41276-RDCIPPF NAIL, 6 OR MORE 01/30/2022 53467-LXPSCAQ NAIL, 6 OR MORE 06/22/2022 53215-OPRHUWZ NAIL, 6 OR MORE 09/28/2022 93445-FUOCYKJ NAIL, 6 OR MORE 12/28/2022 02990-UJFONTO NAIL, 6 OR MORE 04/05/2023 87461-OHGFZYA NAIL, 6 OR MORE 10/01/2011 15377-CRODOZE NAIL, 6 OR MORE 12/03/2011 85782-PQYTUUD NAIL, 6 OR MORE 03/03/2012 66918-AIPIXLK NAIL, 6 OR MORE 06/02/2012 42922-RRZUAAX NAIL, 6 OR MORE 11/03/2012 75923-UGRSEEA NAIL, 6 OR MORE 01/23/2013 88719-KSJMDIZ NAIL, 6 OR MORE 04/03/2013 06989-QBCBAMO NAIL, 6 OR MORE 06/28/2013 26374-XUOSGZS NAIL, 6 OR MORE 09/13/2013 68107-FNXDMHG NAIL, 6 OR MORE 12/13/2013 62363-ITXUJDG NAIL, 6 OR MORE 03/22/2014 05579-VRJAQDY NAIL, 6 OR MORE 06/21/2014 35341-LEFSHCZ NAIL, 6 OR MORE 09/20/2014 68078-HBOWCEE NAIL, 6 OR MORE 12/06/2014 60995-RMQOKZH NAIL, 6 OR MORE 02/21/2015 90429-NDZJEKO NAIL, 6 OR MORE 05/13/2015 10304-NGAIDGD NAIL, 6 OR MORE 09/09/2015 45892-QMTLBZA NAIL, 6 OR MORE 12/02/2015 51972-SWEAOVZ NAIL, 6 OR MORE 02/24/2016 23426-HMYFKWM NAIL, 6 OR MORE 06/01/2016 22490-NIGBBTS NAIL, 6 OR MORE 08/27/2016 24096-UYVHFTT NAIL, 6 OR MORE 12/07/2016 56982-FIBYXYX NAIL, 6 OR MORE 03/11/2017 06719-ZKFOKYD NAIL, 6 OR MORE 06/24/2017 64132-MQXHBTE NAIL, 6 OR MORE 09/27/2017 68362-MVZOVCB NAIL, 6 OR MORE 12/27/2017 96547-TUVNLVQ NAIL, 6 OR MORE 06/02/2018 41384-PRXKPLD NAIL, 6 OR MORE 08/25/2018 99765-LJLJELT NAIL, 6 OR MORE 11/24/2018 66741-VUNMGFL NAIL, 6 OR MORE 03/09/2019 63324-JGDAOAR NAIL, 6 OR MORE 06/05/2019 56825-XOQWVKU NAIL, 6 OR MORE 09/18/2019 61942-JNFBMRK NAIL, 6 OR MORE 03/11/2020 27921-NIABYFP NAIL, 6 OR MORE 06/13/2020 87971-EIYSYMP NAIL, 6 OR MORE 09/23/2020 20423-OWIXYFF NAIL, 1-5 08/17/2024 20046-BRXQGPQ NAIL, 1-5 01/20/2024 85003-Caxq Destruction, -14 09/08/2021 68025-Kxio Destruction, -14 06/09/2021 39400-Gtrl Destruction, -14 03/11/2020 34532-Vutp Destruction, -14 06/05/2019 80106-Hwru Destruction, -14 09/18/2019 26785-Qceq Destruction, -14 03/09/2019 20445-Xhlb Destruction, -14 05/13/2015 04478-Epuq Destruction, -02/21/2015 28349-Lfij Destruction, 10-2412/06/2014 56920-Rthu Destruction, 10-2409/20/2014 72631-Lpaz Destruction, 10-2406/21/2014 75857-Glng Destruction, 10-2403/22/2014 69745-Ngrx Destruction, 10-2412/13/2013 86321-Vzkm Destruction, 10-2409/13/2013 37050-Vqom Destruction, 10-2406/28/2013 45926-Aous Destruction, 10-2404/03/2013 15439-Hwvt Destruction, 10-2401/23/2013 54538-Eldi Destruction, 10-2411/03/2012 26621-Qihf Destruction, 10-2406/02/2012 33118-Wtgl Destruction, 10-2410/01/2011 55444-Endq Destruction, 10-2403/03/2012 57044-Gvke Destruction, 10-2412/03/2011 91652-Emdmzgvg Plate 03/03/2012 25819-Dohacifu Plate 12/03/2011 47709-Ntpxxulv Plate 06/02/2012 93460-Pjmmqidm Plate 01/23/2013 61318-Piifnnsd Plate 04/03/2013 36916-Ijykkaye Plate 06/28/2013 19609-Itgpcwfo Plate 09/13/2013 54510-Qmcfyvny Plate 12/13/2013 25332-Fdwtepcg Plate 03/22/2014 30935-Qjnyhzay Plate 06/21/2014 82623-Hdukzcyq Plate 09/20/2014 16441-Wtxgehta Plate 12/06/2014 29740-Ecyvjyum Plate 02/21/2015 34118-Hftpsqje Plate 05/13/2015 56449-Tsjeahyq Plate 12/27/2017 57819-Tawyenfo Plate 06/05/2019 04891-Gkndtyty Plate 11/24/2018 23102-Dcronnqd Plate 03/09/2019 14086-Kedstlkw Plate 08/25/2018 94699-Qkovckrr Plate 09/18/2019 21715-Pzfdkeqz Plate 03/11/2020 86954-Jzziimkc Plate 09/27/2017 65670-Hlqrynds Plate 12/07/2016 74045-Lmhvaigl Plate 08/27/2016 24179-Efhlzgyc Plate 06/01/2016 70452-Klmnmzhs Plate 02/24/2016 14571-Mhwgnwaw Plate 12/02/2015 21188-Milfkdii Plate 11/03/2012 60170-Vdjiisuc Plate 09/09/2015 31598-Byrtjiwx Plate 06/09/2021 42565-Nkhwhsgl Plate 06/13/2020 00614-Kqbljcug Plate 09/08/2021 22553-Fzlqgdpl Plate 03/13/2021 32096-Lrgbmylk Plate 09/23/2020 85611-Jldrhzxg Plate 01/30/2022 39845-Tfeoxrsw Plate 06/22/2022 38736-Chjbkctn Plate 01/20/2024 48332-Elxrybcw Plate 08/17/2024 53553-Yxnyqbxl Plate Each Additional 09/2022 25570-Trjuvgkh Plate Each Additional 04/2024 12549-Ejhtxetn Plate Each Additional 48028-Fdnnnqov Plate Each Additional 66424-Rjvuhhoo Plate Each Additional 12/2020 56712-Evwbskog Plate Each Additional 48312-Suqjytmc Plate Each Additional 70980-Elpkniqy Plate Each Additional 10553-Gxyelpbs Plate Each Additional 38117-Yvcduehh Plate Each Additional 68812-Ckrvrkvs Plate Each Additional 20626-Kdilnghk Plate Each Additional 20311-Xmgqrcpz Plate Each Additional 37370-Axkpkels Plate Each Additional 02241-Wtkxgiux Plate Each Additional 06/2019 24459-Bcyprsvv Plate Each Additional 10/2019 27962-Lninabza Plate Each Additional 72988-Teqltzrd Plate Each Additional 21261-Rleffaig Plate Each Additional 94546-Kbmniwwl Plate Each Additional 12/2014 44984-Dkjpetuo Plate Each Additional 34557-Efumcaxm Plate Each Additional 80184-Bhatobml Plate Each Additional 08/2014 61733-Zienxmtd Plate Each Additional 08/2014 53984-Mfhpjzkm Plate Each Additional 09/2014 90709-Dceeiplm Plate Each Additional 02/2014 99321-Uuclcozu Plate Each Additional 01/2013 58884-Eyroyvby Plate Each Additional 90940-Tfcbojfy Plate Each Additional 35927-Efyjjtur Plate Each Additional 77636-Curoukjr Plate Each Additional 09196-Ikmaonsl Plate Each Additional 74870- Debride <25 sq cm 06/13/2020 23293- Debride <25 sq cm 04/05/2023 49668- Debride <25 sq cm 03/15/2025 42101- Debride <25 sq cm 04/02/2025 89862- Debride <25 sq cm 04/30/2025 96993- Debride <25 sq cm 06/07/2025 01152- Debride <25 sq cm 06/18/2025 06866- Debride <25 sq cm 07/02/2025 32226- Debride <25 sq cm 07/16/2025 16088- Debride <25 sq cm 08/16/2025 12388 I&D ABSCESS- SIMPLE,SINGLE 025 64887 I&D ABSCESS- SIMPLE,SINGLE 013 20072 I&D ABSCESS- SIMPLE,SINGLE 013 97278-VLWX SKIN LESIONS, OVER 4 01/24/20 13 95163-ZEGN SKIN LESIONS, OVER 4 11/03/19 13 01400-QNVH SKIN LESIONS, OVER 4 04/03/20 13 67317-TKHJ SKIN LESIONS, OVER 4 06/28/20 13 57016-AVBT SKIN LESIONS, OVER 4 09/13/20 13 32774-CJHJ SKIN LESIONS, OVER 4 12/14/19 14 24744-SRAM SKIN LESIONS, OVER 4 03/22/20 14 27838-WRHP SKIN LESIONS, OVER 4 06/21/20 14 04217-QDVY SKIN LESIONS, OVER 4 09/20/20 14 00708-ZMTW SKIN LESIONS, OVER 4 12/06/19 15 25829-TTVO SKIN LESIONS, OVER 4 02/22/20 15 55321-DLLU SKIN LESIONS, OVER 4 05/13/20 15 97304-LEXC SKIN LESIONS, OVER 4 06/13/20 20 43205-WREM SKIN LESIONS, OVER 4 09/23/20 20 29330-UKVM SKIN LESIONS, OVER 4 03/11/20 20 01594-CMYC SKIN LESIONS, OVER 4 09/18/20 19 48617-TWXV SKIN LESIONS, OVER 4 03/09/20 19 92966-IQGP SKIN LESIONS, OVER 4 06/05/20 19 23946-GBKL SKIN LESIONS, OVER 4 11/24/19 19 79140-UDBD SKIN LESIONS, OVER 4 08/25/20 18 36842-AVWW SKIN LESIONS, OVER 4 12/28/19 18 74878-IMQQ SKIN LESIONS, OVER 4 06/02/20 18 56219-NXMF SKIN LESIONS, OVER 4 09/27/20 17 80554-YGIF SKIN LESIONS, OVER 4 06/24/20 17 84623-EISW SKIN LESIONS, OVER 4 12/07/19 17 98169-DYWH SKIN LESIONS, OVER 4 03/11/20 17 00379-ZBBC SKIN LESIONS, OVER 4 08/27/20 16 53300-YWVU SKIN LESIONS, OVER 4 06/01/20 16 81788-RIUJ SKIN LESIONS, OVER 4 02/24/20 16 67119-TDVA SKIN LESIONS, OVER 4 12/02/19 16 40799-ZIBE SKIN LESIONS, OVER 4 09/09/20 15 38104-AEPE SKIN LESIONS, OVER 4 03/15/20 25 30254-OVMQ SKIN LESIONS, OVER 4 08/16/20 25 70030-LMTR SKIN LESIONS, OVER 4 05/24/20 25 75657-KNOI SKIN LESIONS, OVER 4 08/17/20 24 54855-BVZD SKIN LESIONS, OVER 4 11/23/19 25 67737-KPHM SKIN LESIONS, OVER 4 05/11/20 24 55451-OJLY SKIN LESIONS, OVER 4 01/20/20 24 74015-AFEL SKIN LESIONS, OVER 4 10/21/19 24 61788-JWTF SKIN LESIONS, OVER 4 04/05/20 23 22370-PMJW SKIN LESIONS, OVER 4 07/08/20 23 28056-GVKF SKIN LESIONS, OVER 4 12/29/19 23 22077-QUNY SKIN LESIONS, OVER 4 09/28/20 27940-GCVR SKIN LESIONS, OVER 4 06/22/20 85208-HPDT SKIN LESIONS, OVER 4 01/31/20 73954-TSQR SKIN LESIONS, OVER 4 09/08/20 21 68715-FDKW SKIN LESIONS, OVER 4 06/09/20 21 83905-BZNH SKIN LESIONS, OVER 4 12/02/19 21 50140-FIUY SKIN LESIONS, OVER 4 06/03/20 21 54497-WCWJ SKIN LESIONS, 2 TO 4 06/02/20 12 30183-BUVO SKIN LESIONS, 2 TO 4 03/03/20 12 48461-LOTY SKIN LESIONS, 2 TO 4 12/03/19 12 16915-XGWN SKIN LESIONS, 2 TO 4 10/01/20 11 Next Appt Details Provider Name:Marychuy Kelley , 09/20/2025 02:00:00 PM, [address] [facility], [place], [address], Insurance Providers Payer Name Payer Address Payer Phone Subscriber Number Group Number Insured Name Patient Relationship to Insured Coverage Start Date Coverage End Date [facility] [address] [place], [place] [id number] Casey Ulrich Self - patient is the [...] History Reason Date(Month/Year) ER- blocked arteries 07/05 [facility] - chest pains 02/02 [facility]- Possible Heart Attack/Stress Anxiet y/Covid 07/31 [facility]- Bladder Scan [facility] Scan [facility]- chest pain 10/31 [facility]- Pressure wound right ankle - saw levar bonilla [facility]- chest pain 10/2015
--- OUTSIDE RECORDS SUMMARY | 2025-08-21 17:05 | XMS_ITS | Patient Health Record ---
Author Organization [facility] Address [address] [place] [address] Care Team Providers Care Printing Press Machine Operator Name Role Phone MARC HERNANDEZ Primary Care Provider Ernesto Beck [phone] Allergies No Known Allergies Reason For Referral [...] day(s) Active Ketoconazole 2 % 1 application Compliance Professional ally Once a day; Duration: 14 day(s) [...] Problem Screening for malignant neoplasm of colon (629300226) Encounter for screening for malignant neoplasm of colon (Z12.11) Active confirmed Problem History of adenomatous polyp of colon (264592055) History of adenomatous polyp of colon (Z86.010) Active confirmed Problem Malignant neoplasm of transverse colon (342028967) 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 Problem Preprocedural examination (727923406729301) Preprocedural examination (Z01.818) Active confirmed Problem History of malignant neoplasm of colon (391407948) History of colon cancer (Z85.038) Active confirmed Problem Constipation (40111632) Constipation, unspecified constipation type (K59.00) Active confirmed Problem Diverticulosis of colon (450325971) Diverticulosis of colon (K57.30) Active confirmed Problem History of gastrointestinal tract bypass (577100276) Hx of Billroth II operation (Z98.0) Active confirmed Vital Signs Temperature 97.9 degrees Fahrenheit 04/04/2025 Blood pressure diastolic 01 mm Hg 04/04/2025 Height 71.5 in 04/04/2025 Blood pressure systolic 001 mm Hg 04/04/2025 Weight 196 lbs 04/04/2025 BMI 26.95 kg/m2 04/04/2025 Procedures Procedure Date Ordered Date Performed Result Body Sit e COLONOSCOPY 04/04/2025 N/A Encounters Encounter Location Date Provider Diagnosis [facility] [address] [place] [address] 04/04/2025 Ernesto Wu History of adenomato us polyp of colon Z86.010 ; Irritable bowel syndrome K58.9 ; Encounter for screening for malignant neoplasm of colon Z12.11 ; History of colon cancer Z85.038 and Preprocedural examination Z01.818 [facility] [address] [place] [address] 09/12/2024 Ernesto Wu [facility] [address] [place] [address] 10/03/2024 Ernesto Wu [facility] [address] [place] [address] 01/30/2025 Ernesto Wu [facility] [address] [place] [address] 04/05/2025 Ernesto Wu [facility] [address] [place] [address] 05/07/2025 Ernesto Wu Assessments Encounter Date Diagnosis [...] procedure. He will be seen by his motor pool clerk prior to the procedure and I did [...] procedure. He will be seen by his motor pool clerk prior to the procedure and I did [...] procedure. He will be seen by his motor pool clerk prior to the procedure and I did [...] procedure. He will be seen by his motor pool clerk prior to the procedure and I did [...] procedure. He will be seen by his motor pool clerk prior to the procedure and I did [...] Provider Name:Ernesto Wu , 10/01/2025 07:30:00 AM, [address] [place] [address], [id number], Insurance Providers Payer Name Payer Address Payer Phone Subscriber Number Group Number Insured Name Patient Relationship to Insured Coverage Start Date Coverage End Date [facility] [address] [place], [place] [id number] MELISSA ELDER Self - patient is the insured Medical (General) History Medical History History ICD Code Denies [place],CVA,Lung disease,renal disease IDDM Pulmonary sarcoidosis- inactive Spherocytosis [...]
--- OUTSIDE RECORDS SUMMARY | 2025-08-21 17:05 | XMS_ITS | Encounter Summary ---
Author Organization [facility] Address [address] [place] [address] Phone Care Team Providers Care Maintenance Plumber Name Role Phone Pcp, Unknown Primary Care Provider Stuart Carrasco BUSINESS ANALYST MANAGER Primary Care Provider + Encounter Details Date Type Department Care Team (Late st Contact Info) Description 01/10/2021 Transcribe Orders [facility] [address] [address] Grant Eric [address] [place] [id number] [email or web address] Social History Tobacco Use Types Packs/Day Years [...] on filedocumented in this encounter Care Teams Maintenance Plumber Relationship Specialty Start Date End Date Pcp, Unknown PCP - General 11/20/20 04/26/24 Stuart Will NP [address] [place] [address] PCP - General Nurse Practitioner 04/27/24 documented as of this encounter Additional Source Comments The information contained in this document represents components of the legal health record. It is not the complete legal health record.[facility]
== END 2025-08-21 16:57 | disposition home or self-care (01) ==
LOC: HO.HMCC 15:26
PROVIDERS: PCP Nurse Practitioner Family; Visit Provider Nurse Practitioner Family
DX: E11.9 Type 2 diabetes mellitus without complications (principal)

== ENCOUNTER → 2025-08-21 15:25 | Outpatient (BNVA) | payer BC, SELFPAY | PROVIDERS: PCP Nurse Practitioner Family; Visit Provider Nurse Practitioner Family | DX: E11.40 Type 2 diabetes mellitus with diabetic neuropathy, unspecified (principal) | CPT/HCPCS: 83036 ==

== ENCOUNTER 2025-09-17 15:27 | Outpatient (AMB) | payer BC, SELFPAY ==
[2025-09-17 15:40] VITALS: BP 96/60; PULSE 98; TEMP 36.8; O2SAT 99; BMI 27.8
--- NOTE | 2025-09-17 15:40 | MHC.OFFWIV ---
Intake Vital Signs 09/17/25 15:40 Height 5 ft 11 in Weight 199 lb BMI 27.8 BP 96/60 Blood Pressure Location Lt brachial Position Sitting Pulse 98 Pulse Source Pulse Oximeter Temp 98.2 F Temp Source Oral Pulse Oximetry (%) 99 Oxygen Delivery Method Room Air Intake Visit Reasons: EP pain between bladder and prostate Intake Note: pt presents with pain during ejaculation Patient Tobacco Use Status: Never used Tobacco Allergies penicillamine Allergy (Unknown, Verified 09/17/25 15:41) unknown Do you need a note to return to daycare/school/sports/work: No HPI HPI Comments History of Present Illness Details 80 y/o male presents with complaint of painful ejaculation. States that approximately 1 week ago, during intercourse with a female partner, he experienced a sharp bladder pain at the moment of ejaculation. Reports only one episode and has not had intercourse since. Denies hematospermia, dysuria, urinary frequency/urgency, hesitancy, or flank pain. Reports known enlarged prostate; he is followed by [facility] (Dr. Liriano) and was last evaluated 4 weeks ago. Denies nausea, vomiting, fevers, chills. 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 Vitamin D deficiency Cholecystectomy planned Osteoarthritis History of colon cancer CKD (chronic kidney disease) Sarcoidosis Partial nontraumatic amputation of right foot PVD (peripheral vascular disease) Diabetic retinopathy Spherocytosis Skin cancer Peripheral neuropathy Spinal stenosis Renal stones Pulmonary sarcoidosis Diabetes Surgical History History of amputation of foot History of ureter repair H/O splenectomy S/P ureteral reimplantation History of surgical removal of pilonidal cyst History of tonsillectomy and adenoidectomy H/O right hemicolectomy Status post laser lithotripsy of ureteral calculus Hx of cholecystectomy Hx of colonoscopy Family History Mother Thyroid cancer Other Mental health disorder Social History Household Members: Friend(s) Housing: House Are you a primary healthcare administrative assistant to a significant other at home: No Do you presently have visiting nurse or other home services: No Alcohol intake: never Patient Tobacco Use Status: Never used Tobacco e-Cigarette/Vaping Use: Never Used Second Hand Smoke Exposure: No Advance Directives Date on File: 12/02/23 service: No Current occupational status: employed and retired Cognitive needs: No Hearing needs: No Vision needs: No Physical Exam Vital Signs: Last Vital Signs Temp 98.2 F 09/17/25 15:40 Pulse 98 09/17/25 15:40 BP 96/60 09/17/25 15:40 Pulse Ox 99 09/17/25 15:40 Oxygen Delivery Method Room Air 09/17/25 15:40 BMI result Body Mass Index 27.8 Const General: no acute distress Orientation/consciousness: patient oriented x3 Limitations: ambulation with walker General: Yes deferred Neuro General: patient oriented x3, gait normal and moves all extremities Psych Speech and movement: Normal speech and movement present Assessment & Plan Assessment & Plan (1) Painful ejaculation: Code(s): N53.12 - Painful ejaculation Plan: Painful ejaculation ? likely related to underlying BPH or possible prostatitis, though absence of urinary or systemic symptoms makes acute bacterial prostatitis less likely. Other considerations: Seminal Vesiculitis, pelvic floor muscle spasm, urethral irritation, ejaculatory duct obstruction, post-coital bladder spasm. History of BPH, followed by Urology. Urinalysis Negative today. Ordered Urine GC/CT - STI risk factors or new partners. Follow up with Urology (Dr. Liriano) for further evaluation, especially if symptoms recur with next intercourse; may need prostate/seminal vesicle assessment. Orders: Orders CT NG by PCR Urine Today N53.12 - Painful ejaculation Coding Level of Care Code Est Pt Level 4 (57256) Diagnoses Painful ejaculation N53.12 Time Spent (min) 20
--- OUTSIDE RECORDS SUMMARY | 2025-09-18 01:00 | XMS_ITS | Clinical Summary ---
Author Organization [facility] Address [address] [place] [address] Phone Care Team Providers Care Gravity Prospecting Supervisor Name Role Phone Stuart Will NP Primary Care Provider [phone] Allergies Active Allergy Reactions Criticality Noted Date [...] (one) time each day. Active levocarnitine HCl (LHUPLX-W-FXBTP PRIMITIVO MISC) 500 mg. Active dihydroberberin e [...] time each day. 30 each 11 5 07/11/20 26 Active Active Problems Problem Noted Date Diagnosed Date Pure hypercholesterolemia 07/11/2025 Assessment & Plan (07/11/2025 3:05 PM EDT): He has some myalgia on the atorvastatin, but agrees to try crestor 10mg once a day. He will let me know if he has any concerning symptoms. SOB (shortness of breath) 05/21/2025 Overview (07/11/2025): - Seen multiple times in the [facility] for breathlessness without rising cardiac markers -CT chest at [facility] showed severe coronary artery calcifications - Patient [...] referral to Cardiology PVD (peripheral vascular disease) 05/21/2025 Resolved Problems Problem Noted Date Diagnosed Date Resolved Date CAD (coronary artery disease) 07/11/2025 07/11/2025 Encounters Date Type Department Care Team Description 08/23/2025 Telephone [facility] [address] [place] [phone] Stuart Hernandez MD 07/11/2025 2:10 PM EDT Office Visit [facility]iology [facility] [address] [place] [address] Gabriela Ang NP SOB (shortness of breath) (Primary Dx); Pure hypercholesterolemia from Last 3 Months Surgical History Surgery Date Site/Laterality Comments [place] [facility] [place] ID[place]S: Chest pain. Medical History Medical History Date Comments BPH (benign prostatic hyperplasia) Urethral stricture Necrosis of right ureter Vitamin D deficiency Osteoarthritis Colon cancer ([facility]/HCC V24, CMS/HCC V28) CKD (chronic kidney disease) Sarcoidosis Neuropathic ulcer of right foot (CMS/HCC V24, CM S/HCC V28) Left foot drop Social History Tobacco [...] on file Sexual Orientation Not on file Last Filed Vital Signs Vital Sign Reading [...] age to complete this topic Insurance MEDICARE [facility] Care Teams Gravity Prospecting Supervisor Relationship Specialty Start Date End Date Stuart Will NP [address] [place] [address] PCP - General Family Medicine 05/28/25
--- OUTSIDE RECORDS SUMMARY | 2025-09-18 01:00 | XMS_ITS | Clinical Summary ---
Author Organization [facility] Address [address] [place] [phone] Phone Care Team Providers Care Information Security Specialist Name Role Phone Stuart Will ASSEMBLER RUBBER [employer]WEAR Primary Care Provider + Social History Tobacco [...] topic Medical Devices Not on file Insurance [facility] Address: [facility] [address] [place], [place] [id number] MEDICARE A MEDICARE A MEDICARE A MEDICARE A MEDICARE A [facility] MEDICARE A [facility] MEDICARE A [facility] MEDICARE A [facility] MEDICARE A Care Teams Information Security Specialist Relationship Specialty Start Date End Date Stuart Will NP [facility] [place] [address] PCP - General Nurse Practitioner 04/27/24 Additional Source Comments The information contained in this document represents components of the legal health record. It is not the complete legal health record.[facility]
--- OUTSIDE RECORDS SUMMARY | 2025-09-18 01:00 | XMS_ITS | Encounter Summary ---
Author Organization [facility] Address [address] [place] [address] Phone Care Team Providers Care Horse Rider Name Role Phone Pcp, Unknown Primary Care Provider Stuart Carrasco SENIOR STRUCTURAL ENGINEER Primary Care Provider + Encounter Details Date Type Department Care Team (Late st Contact Info) Description 01/10/2021 Transcribe Orders [facility] [address] [address] [address] [place] [phone] [email or web address] Social History Tobacco Use Types Packs/Day Years [...] on filedocumented in this encounter Care Teams Horse Rider Relationship Specialty Start Date End Date Pcp, Unknown PCP - General 11/20/20 04/26/24 Stuart Will NP [address] [place] [address] PCP - General Nurse Practitioner 04/27/24 documented as of this encounter Additional Source Comments The information contained in this document represents components of the legal health record. It is not the complete legal health record.[facility]
== END 2025-09-17 16:33 | disposition home or self-care (01) ==
PROVIDERS: PCP Nurse Practitioner Family; Visit Provider Nurse Practitioner Family
DX: Z13.9 Encounter for screening, unspecified (principal); N53.12 Painful ejaculation

== ENCOUNTER 2025-09-17 15:27 | Outpatient (REF) | payer BC, SELFPAY ==
--- OUTSIDE RECORDS SUMMARY | 2024-06-21 05:30 | XMS_ITS ---
Author Organization [facility] Address [address] [place] [address] Care Team Providers Care Radar Operator Name Role Phone MARC HERNANDEZ Primary Care Provider Ernesto Beck [phone] REASON FOR VISIT screening, hx polyps,hx colon ca Encounters Encounter Location Date Provider Diagnosis [facility] Outpatient [address] [place] [address] [phone] 06/21/2024 Ernesto Wu Plan Of Treatment Next Appt Details Provider Name:Ernesto Wu , 10/01/2025 07:30:00 AM, [address] [place] [address], [phone], Progress Notes * MELISSA HUNT KDOB:[birth year] (80 yo M)Acc No.[id number]:06/21/2024 COLON WITH MAC Patient: MELISSA CRUZ Provider: Sheba Wu MD :1945 A ge:79 Y S ex:Male Date:06/21/2024 Address:[address] [place], [place] [phone] Pcp:MARC HERNANDEZ Subjective: * Chief Complaints: * S creening, hx polyps,hx colon ca * The named appointment provid er may or may not be the originator of this progress note, and it is not deemed complete until electronically signed by the appointment provider. Sign off status: Pending * Provider: Sheba Wu MD Date: 0 06/21/2024 Generated for Alfredo logan/Lila/eTransmitting on: 1 11/19/2024 01:51 AM EST
--- OUTSIDE RECORDS SUMMARY | 2025-05-28 09:30 | XMS_ITS ---
Author Organization [facility] Address [address] [place] [address] Care Team Providers Care Neon Electrician Name Role Phone Stuart Lozano Primary Care Provider Unav ailable Marychuy Kelley Unavailable [phone] Encounters Encounter Location Date Provider Diagnosis [facility] [address] [place] [address] 05/28/2025 Marychuy Black Plan Of Treatment Next Appt Details Provider Name:Marychuy Kelley , 09/20/2025 02:00:00 PM, [address] [place], [address], Progress Notes * Casey SEWELL KDOB:[birth year] (80 yo M)Acc No.[id number]:05/28/2025 Progress Notes Patient: Casey CRUZ Provider: Karine Kelley DPM :1945 A ge:79 Y S ex:Male Date:05/28/2025 Address:[address] [place] [address] [place] [id number] Pcp:IVORY Mattson Subjective: * Chief Complaints: * * Medical History: Objective: * Vitals: Assessment: Plan: * Treatment: * Images: * The named appointment provid er may or may not be the originator of this progress note, and it is not deemed complete until electronically signed by the appointment provider. Sign off status: Pending * Provider: Karine Kelley DPM Date: 0 05/28/2025 Generated for Alfredo logan/Lila/Zo on: 1 11/19/2024 01:52 AM EST
--- OUTSIDE RECORDS SUMMARY | 2025-07-20 05:30 | XMS_ITS ---
Author Organization [facility] Address [address] [place] [address] Care Team Providers Care Engagement Manager Name Role Phone MARC HERNANDEZ Primary Care Provider Ernesto Beck [phone] REASON FOR VISIT screening,hx colon ca, hx adenomatous polyp colon Encounters Encounter Location Date Provider Diagnosis [facility] Outpatient [address] [place] [phone] 07/20/2025 Ernesto Wu Plan Of Treatment Next Appt Details Provider Name:Ernesto Mitch Bryce , 10/01/2025 07:30:00 AM, [address] [place] [address], [phone], Progress Notes * MELISSA HUNT KDOB:[birth year] (80 yo M)Acc No.[id number]:07/20/2025 COLON WITH MAC Patient: Radha HULLMELISSA Provider: Sheba Wu MD :1945 A ge:80 Y S ex:Male Date:07/20/2025 Address:[address] [place], [place] [id number] Pcp:MARC HERNANDEZ Subjective: * Chief Complaints: * S creening,hx colon ca, hx adenomatous polyp colon * The named appointment provid er may or may not be the originator of this progress note, and it is not deemed complete until electronically signed by the appointment provider. Sign off status: Pending * Provider: Sheba Wu MD Date: Generated for Alfredo logan/Lila/Jennysmitting on: 11/19/2024 01:52 AM EST
--- OUTSIDE RECORDS SUMMARY | 2025-09-18 01:51 | XMS_ITS | Patient Health Record ---
Author Organization [facility] Address [address] [place] [address] Care Team Providers Care Plant Operator Name Role Phone MARC HERNANDEZ Primary Care Provider Ernesto Beck [phone] Allergies No Known Allergies Reason For Referral No Information Medications Medication SIG (Take, Route, Frequency, Duration) Notes Start Date End Date Status Brimonidine Tartrate 0.2 % Solution Ophthalmic; Duration: 56 Unk nown BD Insulin Syringe U/F 30G X 1/2 1 ML Miscellaneous USE TO INJECT INSULIN TWICE PER DAY; Duration: 90 Unknown Latanoprost 0.005 % Solution APPLY ONE DROP TO EACH EYES IN THE EVENING Ophthalmic; Duration: 90 Unknown Timolol Maleate 0.5 % Solution PLACE ONE DROP INTO BOTH EYES TWICE A DAY Ophthalmic; Duration: 56 Unknown Contour Test - Strip In Vitro; Duration: 90 Unknown Cephalexin 500 MG Capsule TAKE 1 CAPSULE BY MOUTH TWICE A DAY FOR 10 DAYS Oral; Duration: 10 Unknown Ibuprofen PRN Unknown Dicyclomine HCl 10 MG Capsule 1 or 2 capsules Orally Every 6 hours if needed for the IBS with abdominal cramps/discomfort; Duration: 30 days 02/02/2025 Unknown Ketoconazole 2 % Cream 1 application Ext ernally Once a day; Duration: 14 day(s) 04/04/2025 Active Vitamin A 2400 MCG (8000 UT) Capsule 2 capsules with food or milk Orally Once a day; Duration: 30 day(s) 04/04/2025 Active Vitamin C 500 MG Capsule as directed Orally 2024 Active Vitamin E 100 UNIT Tablet 1 tablet Orall y Once a day; Duration: 30 day(s) 04/04/2025 Active Dicyclomine HCl 10 MG Capsule 1 or 2 capsules Orally Every 6 hours as needed for abdominal discomfort/cramps; Duration: 30 day(s) 10/17/2023 Unknown Vitamin B Complex - Tablet as directed O rally once a day Unknown HumuLIN N 100 UNIT/ML Suspension 15-20 units as directed Subcutaneous BID Unknown Zinc 50 MG Capsule 1 capsule Orally Onc e a day; Duration: 30 day(s) Unknown Vitamin D 1000 UNIT Tablet 1 tablet Oral ly Once a day; Duration: 30 day(s) Unknown Alpha Lipoic Acid 200 MG Capsule 1 capsule Orally Once a day; Duration: 30 day(s) 04/04/2025 Active Acetyl L-Carnitine 04/04/2025 Active CoQ-10 100 MG Capsule as directed Orally Active Bromaline 04/04/2025 Active Curcumin 95 500 MG Capsule as directed Orally 03/12 Active Ginkoba 40 MG Tablet as directed Orally 04/04/2025 Active Berberine Chloride 500 MG Capsule as directed Orally 04/04/2025 Active Aspirin 81 81 MG Tablet Delayed Release 1 tablet Orally Once a day; Duration: 30 day(s) 04/04/2025 Active Zinc 100 MG Tablet 1 tablet Orally Once a day; Duration: 30 day(s) 04/04/2025 Active Immunizations Vaccine Route Administration Date Status Comme nts Influenza Unknown 02/23/2019 Administered Influenza Unknown 01/29/2022 Refused Influenza Unknown 03/08/2024 Refused Social History Tobacco Use: Social History Observation Description Date Details (start date - stop date) Never Smoker NA - NA Social History Drugs/Alcohol: Social Info Question Answer Notes Alcohol Screen Did you have a drink containing alcohol in the past year? 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 [employer] Section Notes: Nonsmoker; no sig alcohol Nonsmoker; no sig alcohol Nonsmoker; no sig alcohol Nonsmoker; no sig alcohol Nonsmoker; no sig alcohol Problems Problem Type SNOMED Code ICD Code Onset Dates Problem Status W/U Status Risk Notes Problem Screening for malignant neoplasm of colon (636712035) Encounter for screening for malignant neoplasm of colon (Z12.11) Active confirmed Problem History of adenomatous polyp of colon (723113811) History of adenomatous polyp of colon (Z86.010) Active confirmed Problem Malignant neoplasm of transverse colon (102654426) 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 Problem Preprocedural examination (614830683188442) Preprocedural examination (Z01.818) Active confirmed Problem History of malignant neoplasm of colon (136864636) History of colon cancer (Z85.038) Active confirmed Problem Constipation (46538712) Constipation, unspecified constipation type (K59.00) Active confirmed Problem Diverticulosis of colon (309587813) Diverticulosis of colon (K57.30) Active confirmed Problem History of gastrointestinal tract bypass (489726148) Hx of Billroth II operation (Z98.0) Active confirmed Vital Signs Temperature 97.9 degrees Fahrenheit 04/04/2025 Blood pressure diastolic 01 mm Hg 04/04/2025 Height 71.5 in 04/04/2025 Blood pressure systolic 001 mm Hg 04/04/2025 Weight 196 lbs 04/04/2025 BMI 26.95 kg/m2 04/04/2025 Procedures Procedure Date Ordered Date Performed Result Body Sit e COLONOSCOPY 04/04/2025 N/A Encounters Encounter Location Date Provider Diagnosis [facility] [address] [place] [phone] 04/04/2025 Ernesto Wu History of adenomato us polyp of colon Z86.010 ; Irritable bowel syndrome K58.9 ; Encounter for screening for malignant neoplasm of colon Z12.11 ; History of colon cancer Z85.038 and Preprocedural examination Z01.818 [facility] [address] [place] [phone] 10/03/2024 Ernesto Wu [facility] [address] [place] [phone] 01/30/2025 Ernesto Wu [facility] [address] [place] [phone] 04/04/2025 Ernesto Wu [facility] [address] [place] [phone] 04/05/2025 Ernesto Wu [facility] [address] [place] [phone] 05/07/2025 Ernesto Wu Assessments Encounter Date Diagnosis [...] procedure. He will be seen by his patternmaker apprentice metal prior to the procedure and I did [...] procedure. He will be seen by his patternmaker apprentice metal prior to the procedure and I did [...] procedure. He will be seen by his patternmaker apprentice metal prior to the procedure and I did [...] procedure. He will be seen by his patternmaker apprentice metal prior to the procedure and I did [...] procedure. He will be seen by his patternmaker apprentice metal prior to the procedure and I did [...] Provider Name:Ernesto Wu , 10/01/2025 07:30:00 AM, [address] [place] [address] , [place], [place], [phone], Insurance Providers Payer Name Payer Address Payer Phone Subscriber Number Group Number Insured Name Patient Relationship to Insured Coverage Start Date Coverage End Date [facility] [address] [place], [place] [id number] [phone] [id number] MELISSA ELDER Self - patient is the insured Medical (General) History Medical History History ICD Code Denies SC,CVA,Lung disease,renal disease IDDM Pulmonary sarcoidosis- inactive Spherocytosis Colonoscopy in 2010- 1 tubular adenoma r emoved, diverticulosis Spinal [...] surgery for stones with Jazlyn Liriano at [facility]
--- OUTSIDE RECORDS SUMMARY | 2025-09-18 01:51 | XMS_ITS | Patient Health Record ---
Author Organization [facility] Address [address] [place] [address] Care Team Providers Care Overlock Hemmer Name Role Phone Stuart Lozano Primary Care Provider Unav ailable Black, Marychuy Unavailable [phone] Allergies Allergen (clinical drug ingredient) Drug/Non Drug Allergy documented on EMR Reaction Allergy Type Onset Date Status 12 Hour Nasal [place] Unknown Drug Allergy Active Dust Mites Unknown Allergy Active Results Component Value Reference Range Notes HEMOGLOBIN A1C (GLYCOHEMOGLO BIN) Reviewed date:07/16/2025 08:26:11 [...] Nattokinase 100 MG as directed Orally Not-Taking X78-Wbsomr Active [place] 3-6-9 Not-Taki ng Vitamin B Complex - as directed Orally Active Multivitamins Not-Ta shellie Flax Seed Oil Active Extra Depth Orthopedic [...] Problem Acquired hammer toe of right foot (1771035058221641 ) Other hammer toe(s) (acquired), right foot (M20.41) Active confirmed Problem Acquired hammer toe of left foot (4533277340605992 ) Other hammer toe(s) (acquired), left foot (M20.42) Active confirmed Problem Polyneuropathy due to diabetes mellitus type I (717614083) 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 Problem Ulcer of toe of right foot (disorder) (1301968995373980 1) Skin ulcer of toe of right foot, limited to breakdown of skin (L97.511) Active confirmed Vital Signs Blood pressure diastolic 74 mm Hg 08/16/2025 Height 5ft 11in in 08/16/2025 Blood pressure systolic 116 mm Hg 08/16/2025 Weight 197 lbs 08/16/2025 BMI 27.47 kg/m2 08/16/2025 Procedures Procedure Date Ordered Date Performed Result Body Sit e 65613-RQOUTGI NAIL, 6 OR MORE 11/23/2024 N/A 65159-KUVF SKIN LESIONS, OVER 4 11/23/2024 N/A 83770-DBLYKQL NAIL, 6 OR MORE 03/15/2025 N/A 78742- Debride <25 sq cm 03/15/2025 N/A 77792-SLHL SKIN LESIONS, OVER 4 03/15/2025 N/A 78357- Debride <25 sq cm 04/02/2025 N/A 83931- Debride <25 sq cm 04/30/2025 N/A 28182-OAFQXOO NAIL, 6 OR MORE 05/24/2025 N/A 45591 I&D ABSCESS- SIMPLE,SINGLE 05/24/2025 N/A 55228-NXMJ SKIN LESIONS, OVER 4 05/24/2025 N/A 41275- Debride <25 sq cm 06/07/2025 N/A 48511- Debride <25 sq cm 06/18/2025 N/A 01078- Debride <25 sq cm 07/02/2025 N/A 60204- Debride <25 sq cm 07/16/2025 N/A 82711-JDSALKH NAIL, 6 OR MORE 08/16/2025 N/A 27771- Debride <25 sq cm 08/16/2025 N/A 34634-CEZJ SKIN LESIONS, OVER 4 08/16/2025 N/A Encounters Encounter Location Date Provider Diagnosis [address] [address] 11/23/2024 Marychuy Black Type 1 diabetes mellitus with diabetic polyneuropathy E10.42 ; Xerosis of skin L85.3 and Tinea unguium B35.[address] [address] 03/15/2025 Marychuy Black Type 1 diabetes mellitus with diabetic polyneuropathy E10.42 ; Xerosis of skin L85.3 ; Tinea unguium B35.1 and Skin ulcer of toe of right foot, limited to breakdown of skin L97.[address] [address] 04/02/2025 Marychuy Black Neuropathic ulcer of right foot, limited to breakdown of skin L97.511 and Type 1 diabetes mellitus with diabetic polyneuropathy E10.[address] [address] 04/30/2025 Marychuy Black Neuropathic ulcer of right foot, limited to breakdown of skin L97.511 and Type 1 diabetes mellitus with diabetic polyneuropathy E10.[address] [address] 05/24/2025 Marychuy Black Type 1 diabetes mellitus with diabetic polyneuropathy E10.42 ; Cellulitis of right toe L03.031 ; Tinea unguium B35.1 and Cutaneous abscess of right foot L02.[address] [address] 06/07/2025 Marychuy Black Type 1 diabetes mellitus with diabetic polyneuropathy E10.42 ; Cellulitis of right toe L03.031 and Skin ulcer of toe of right foot, limited to breakdown of skin L97.[address] [address] 06/18/2025 Marychuy Black Type 1 diabetes mellitus with diabetic polyneuropathy E10.42 and Skin ulcer of toe of right foot, limited to breakdown of skin L97.[address] [address] 07/02/2025 Marychuy Black Type 1 diabetes mellitus with diabetic polyneuropathy E10.42 and Skin ulcer of toe of right foot, limited to breakdown of skin L97.[address] [address] 07/16/2025 Marychuy Black Type 1 diabetes mellitus with diabetic polyneuropathy E10.42 ; Skin ulcer of toe of right foot, limited to breakdown of skin L97.511 ; Other hammer toe(s) (acquired), right foot M20.41 and Other hammer toe(s) (acquired), left foot M20.[address] [address] 08/16/2025 Marychuy Black Type 1 diabetes mellitus with diabetic polyneuropathy E10.42 ; Skin ulcer of toe of right foot, limited to breakdown of skin L97.511 and Tinea unguium B35.[address] [address] 11/23/2024 Marychuy Black [address] [address] 04/30/2025 Marychuy Black [address] [address] 05/01/2025 Marychuy Black [address] [address] 05/24/2025 Marychuy Black [facility] [address] 05/28/2025 Marychuy Black Cellulitis of right toe L03.[address] [place] [address] 06/01/2025 Marychuy Black Cellulitis of right toe L03.031 [facility] [address] [address] 06/12/2025 Marychuy Black [facility] [place] [address] [facility] [address] [place] [address] 06/18/2025 Marychuy Black Assessments Encounter Date Diagnosis [...] Test Name Order Date Hemoglobin A1c 12/02/2015 59041-QSEOBAL NAIL, 6 OR MORE 08/16/2025 19983-TLDPQCF NAIL, 6 OR MORE 11/23/2024 18041-XPIOVYA NAIL, 6 OR MORE 05/24/2025 59936-HMMMOUH NAIL, 6 OR MORE 07/08/2023 69324-FENQEAH NAIL, 6 OR MORE 10/21/2023 30980-ILKPWYD NAIL, 6 OR MORE 05/11/2024 22171-QTPVDVM NAIL, 6 OR MORE 03/15/2025 08842-LOOQRTI NAIL, 6 OR MORE 12/02/2020 04387-FWMNLWE NAIL, 6 OR MORE 03/13/2021 52456-BVGMPBK NAIL, 6 OR MORE 06/09/2021 00073-TMLMQDQ NAIL, 6 OR MORE 09/08/2021 35790-PNDGVNR NAIL, 6 OR MORE 01/30/2022 33308-FHJNTUD NAIL, 6 OR MORE 06/22/2022 14136-UPCXTAK NAIL, 6 OR MORE 09/28/2022 13098-VNVBIAL NAIL, 6 OR MORE 12/28/2022 85549-RJACEVF NAIL, 6 OR MORE 04/05/2023 22985-MSOKHPO NAIL, 6 OR MORE 10/01/2011 39719-UGOXEOV NAIL, 6 OR MORE 12/03/2011 75420-EMBINKF NAIL, 6 OR MORE 03/03/2012 86296-LXURGRD NAIL, 6 OR MORE 06/02/2012 05443-TYJRBYH NAIL, 6 OR MORE 11/03/2012 88331-QSOGJGV NAIL, 6 OR MORE 01/23/2013 96754-YYHDVIV NAIL, 6 OR MORE 04/03/2013 91636-HBKNSFB NAIL, 6 OR MORE 06/28/2013 93663-ZYBJSYI NAIL, 6 OR MORE 09/13/2013 04308-ENYYQBA NAIL, 6 OR MORE 12/13/2013 30982-WMFXEXO NAIL, 6 OR MORE 03/22/2014 39301-JOCLTWF NAIL, 6 OR MORE 06/21/2014 23364-PQDAAKH NAIL, 6 OR MORE 09/20/2014 03460-YVDAELA NAIL, 6 OR MORE 12/06/2014 53143-JBNLZLK NAIL, 6 OR MORE 02/21/2015 40412-RCQYYDN NAIL, 6 OR MORE 05/13/2015 53360-PDNWLKM NAIL, 6 OR MORE 09/09/2015 72634-UENQYFU NAIL, 6 OR MORE 12/02/2015 55578-HZXGGCN NAIL, 6 OR MORE 02/24/2016 78838-VSZTKUJ NAIL, 6 OR MORE 06/01/2016 65468-MEIPDGU NAIL, 6 OR MORE 08/27/2016 84260-OBFTGAG NAIL, 6 OR MORE 12/07/2016 81624-UOBUOXP NAIL, 6 OR MORE 03/11/2017 12719-UIRNDEM NAIL, 6 OR MORE 06/24/2017 77758-PDLYKJC NAIL, 6 OR MORE 09/27/2017 12336-XBISKIS NAIL, 6 OR MORE 12/27/2017 98756-QYOPFBY NAIL, 6 OR MORE 06/02/2018 41355-KYEAUBZ NAIL, 6 OR MORE 08/25/2018 31057-JAXTTPQ NAIL, 6 OR MORE 11/24/2018 68647-UHTJFDP NAIL, 6 OR MORE 03/09/2019 93805-ZOOKYMG NAIL, 6 OR MORE 06/05/2019 66291-TFELBWD NAIL, 6 OR MORE 09/18/2019 12256-TJWOYFM NAIL, 6 OR MORE 03/11/2020 42130-NRTGUFT NAIL, 6 OR MORE 06/13/2020 81521-WVQLRPJ NAIL, 6 OR MORE 09/23/2020 71961-KFIYQLA NAIL, 1-5 08/17/2024 74326-DAAOVED NAIL, 1-5 01/20/2024 10872-Ibtt Destruction, -14 09/08/2021 98194-Drcx Destruction, -14 06/09/2021 10236-Elmf Destruction, -14 03/11/2020 11310-Xytn Destruction, -14 06/05/2019 22358-Avwg Destruction, -14 09/18/2019 51833-Zjnv Destruction, -14 03/09/2019 88130-Doyb Destruction, -05/13/2015 12419-Gulm Destruction, -02/21/2015 69737-Gagy Destruction, -14 12/06/2014 32590-Repd Destruction, -09/20/2014 76537-Prbi Destruction, 10-2406/21/2014 36930-Xfso Destruction, 10-2403/22/2014 45419-Doqg Destruction, 10-2412/13/2013 93532-Gfdx Destruction, -09/13/2013 07058-Uzvd Destruction, -06/28/2013 55196-Ywhk Destruction, -04/03/2013 78042-Puup Destruction, 1-14 01/23/2013 99481-Xshj Destruction, -11/03/2012 84647-Uaiv Destruction, -06/02/2012 73580-Szyi Destruction, -14 10/01/2011 80563-Njli Destruction, -03/03/2012 31942-Qqtx Destruction, -12/03/2011 75887-Irgppfdo Plate 03/03/2012 09786-Zrgdvrnu Plate 12/03/2011 54605-Ratarqll Plate 06/02/2012 25469-Xzdfgksf Plate 01/23/2013 61343-Nsnfytdj Plate 04/03/2013 84147-Rbexzttx Plate 06/28/2013 71689-Fubovlex Plate 09/13/2013 30353-Nxjqgmda Plate 12/13/2013 75082-Cdtmmhid Plate 03/22/2014 55667-Mswjujcq Plate 06/21/2014 06737-Nchmlmzg Plate 09/20/2014 48457-Pdvymytg Plate 12/06/2014 14762-Nrnnmzrt Plate 02/21/2015 27571-Xlciszng Plate 05/13/2015 80139-Drarozis Plate 12/27/2017 29600-Nndmowfm Plate 06/05/2019 42058-Pzbusjlh Plate 11/24/2018 42647-Xgvzecdd Plate 03/09/2019 69356-Ozliuosl Plate 08/25/2018 25824-Xlyvyjgh Plate 09/18/2019 21173-Qbianhrd Plate 03/11/2020 35934-Cbuqcyip Plate 09/27/2017 13752-Anlnrpmx Plate 12/07/2016 93327-Ttusxmkj Plate 08/27/2016 44389-Wsjalzzi Plate 06/01/2016 08693-Pgwaeebv Plate 02/24/2016 63489-Dykgguqm Plate 12/02/2015 52993-Rfpxqmmu Plate 11/03/2012 65260-Cpxejszg Plate 09/09/2015 28855-Lbgevnhi Plate 06/09/2021 04528-Hecnqkiv Plate 06/13/2020 75188-Lvtazwii Plate 09/08/2021 04403-Bmklcwrd Plate 03/13/2021 47607-Hknezdkc Plate 09/23/2020 93534-Kcxxugrd Plate 01/30/2022 32271-Yevcbtgl Plate 06/22/2022 60846-Vadyyduc Plate 01/20/2024 91993-Hrnsnryl Plate 08/17/2024 54310-Rljnuhgq Plate Each Additional 09/2022 08325-Pqidnibg Plate Each Additional 04/2024 02139-Ncwooevf Plate Each Additional 36153-Chxvjbov Plate Each Additional 45431-Txwwkxwz Plate Each Additional 12/2020 42836-Hamrloqc Plate Each Additional 86098-Bdirpubl Plate Each Additional 21492-Bwgjtlsc Plate Each Additional 56238-Xqarulyf Plate Each Additional 30792-Ebkakyas Plate Each Additional 35329-Iiireftc Plate Each Additional 94898-Tfporvrl Plate Each Additional 20130-Epayqpeo Plate Each Additional 86978-Rxttjhvd Plate Each Additional 82405-Vkeiixlr Plate Each Additional 06/2019 92564-Unzksoex Plate Each Additional 10/2019 63704-Byvydyav Plate Each Additional 12862-Lgxgflis Plate Each Additional 61433-Ufoalbst Plate Each Additional 32937-Vmdjusnp Plate Each Additional 12/2014 95535-Dfbvfxqf Plate Each Additional 10662-Jzamtlrl Plate Each Additional 24634-Dmexmssg Plate Each Additional 08/2014 71190-Nxuxliwh Plate Each Additional 08/2014 46501-Ojthttep Plate Each Additional 09/2014 75222-Alruxone Plate Each Additional 02/2014 40888-Blkzfgwv Plate Each Additional 01/2013 25614-Tvguzfdp Plate Each Additional 36704-Umwcfclf Plate Each Additional 26087-Qekedhvn Plate Each Additional 30649-Woupwwja Plate Each Additional 00390-Wegcnfmb Plate Each Additional 75402- Debride <25 sq cm 06/13/2020 71631- Debride <25 sq cm 04/05/2023 82186- Debride <25 sq cm 03/15/2025 41119- Debride <25 sq cm 04/02/2025 61137- Debride <25 sq cm 04/30/2025 71130- Debride <25 sq cm 06/07/2025 81135- Debride <25 sq cm 06/18/2025 61477- Debride <25 sq cm 07/02/2025 96012- Debride <25 sq cm 07/16/2025 96159- Debride <25 sq cm 08/16/2025 67276 I&D ABSCESS- SIMPLE,SINGLE 025 55218 I&D ABSCESS- SIMPLE,SINGLE 013 90138 I&D ABSCESS- SIMPLE,SINGLE 013 82034-CSOZ SKIN LESIONS, OVER 4 01/24/20 13 99992-XDCJ SKIN LESIONS, OVER 4 11/03/19 13 01057-FDCH SKIN LESIONS, OVER 4 04/03/20 13 55434-VORF SKIN LESIONS, OVER 4 06/28/20 13 37354-GILI SKIN LESIONS, OVER 4 09/13/20 13 57761-IVXJ SKIN LESIONS, OVER 4 12/14/19 14 11355-RLQX SKIN LESIONS, OVER 4 03/22/20 14 50824-OGXV SKIN LESIONS, OVER 4 06/21/20 14 45224-OUDX SKIN LESIONS, OVER 4 09/20/20 14 57261-HICF SKIN LESIONS, OVER 4 12/06/19 15 01009-HTYB SKIN LESIONS, OVER 4 02/22/20 15 13204-MMKI SKIN LESIONS, OVER 4 05/13/20 15 25778-HICL SKIN LESIONS, OVER 4 06/13/20 20 71128-QWCT SKIN LESIONS, OVER 4 09/23/20 20 86045-SIOQ SKIN LESIONS, OVER 4 03/11/20 20 52099-SIKG SKIN LESIONS, OVER 4 09/18/20 19 34154-GVIU SKIN LESIONS, OVER 4 03/09/20 19 54712-QRZW SKIN LESIONS, OVER 4 06/05/20 19 06364-WLAG SKIN LESIONS, OVER 4 11/24/19 19 02221-VBDY SKIN LESIONS, OVER 4 08/25/20 18 56447-QYLY SKIN LESIONS, OVER 4 12/28/19 18 79951-AHMC SKIN LESIONS, OVER 4 06/02/20 18 10691-GFWC SKIN LESIONS, OVER 4 09/27/20 17 47410-RZWG SKIN LESIONS, OVER 4 06/24/20 17 59461-WYJR SKIN LESIONS, OVER 4 12/07/19 17 76759-FYSX SKIN LESIONS, OVER 4 03/11/20 17 13993-LMYN SKIN LESIONS, OVER 4 08/27/20 16 99014-HVNI SKIN LESIONS, OVER 4 06/01/20 16 65777-ISXX SKIN LESIONS, OVER 4 02/24/20 16 16306-ENZB SKIN LESIONS, OVER 4 12/02/19 16 18369-YFBC SKIN LESIONS, OVER 4 09/09/20 15 22298-UDNB SKIN LESIONS, OVER 4 03/15/20 25 70068-WXWY SKIN LESIONS, OVER 4 08/16/20 07665-FPKT SKIN LESIONS, OVER 4 05/24/20 74516-ACFO SKIN LESIONS, OVER 4 08/17/20 24 02758-WEHH SKIN LESIONS, OVER 4 11/23/19 25 00148-CMTZ SKIN LESIONS, OVER 4 05/11/20 24 38453-IFCN SKIN LESIONS, OVER 4 01/20/20 24 02629-ABWG SKIN LESIONS, OVER 4 10/21/19 24 95923-OXDQ SKIN LESIONS, OVER 4 04/05/20 23 94672-EMJR SKIN LESIONS, OVER 4 07/08/20 23 06022-HJGB SKIN LESIONS, OVER 4 12/29/19 23 22246-BEEE SKIN LESIONS, OVER 4 09/28/20 22 16863-VCYC SKIN LESIONS, OVER 4 06/22/20 22 58081-LNNV SKIN LESIONS, OVER 4 01/31/20 22 87417-AJOU SKIN LESIONS, OVER 4 09/08/20 21 98647-UAEV SKIN LESIONS, OVER 4 06/09/20 21 60866-MJLW SKIN LESIONS, OVER 4 12/02/19 21 81101-RYOK SKIN LESIONS, OVER 4 03/13/20 21 42829-JSCA SKIN LESIONS, 2 TO 4 06/02/20 12 94011-JTVJ SKIN LESIONS, 2 TO 4 03/03/20 12 82435-RWNJ SKIN LESIONS, 2 TO 4 12/03/19 12 42823-MYRB SKIN LESIONS, 2 TO 4 10/01/20 11 Next Appt Details Provider Name:Marychuy Kelley , 09/20/2025 02:00:00 PM, [address] [place] [address], [place], [address], Insurance Providers Payer Name Payer Address Payer Phone Subscriber Number Group Number Insured Name Patient Relationship to Insured Coverage Start Date Coverage End Date [facility] [address] [place] [address] [id number] Casey Ulrich Self - patient is the [...] History Reason Date(Month/Year) ER- blocked arteries 07/05 [facility] [place] 02/02 [facility] Possible Heart Attack/Stress Anxiet y/Covid 07/31 [facility]- Bl[facility]- chest pain 10/31 [facility] Pressure wound right ankle - saw levar bonilla [facility]- chest pain 10/2015
[2025-09-18 11:43] LABS: CT PCR Urine NOT DETECTED (Not Detect.); NG PCR Urine NOT DETECTED (Not Detect.)
== END 2025-09-17 15:28 | disposition home or self-care (01) ==
LOC: HO.LAB 15:27
PROVIDERS: Nurse Practitioner Family; PCP Nurse Practitioner Family
DX: N53.12 Painful ejaculation (principal); Z20.2 Contact with and (suspected) exposure to infections with a predominantly sexual mode of transmission
CPT/HCPCS: 81003; 87491; 87591

== ENCOUNTER 2025-09-27 15:11 | Outpatient (REF) | payer BC, SELFPAY ==
--- OUTSIDE RECORDS SUMMARY | 2024-06-21 05:30 | XMS_ITS ---
Author Organization [facility] Address [address] [place] [address] Care Team Providers Care Cloth Carrier Name Role Phone MARC HERNANDEZ Primary Care Provider Ernesto Beck [phone] REASON FOR VISIT screening, hx polyps,hx colon ca Encounters Encounter Location Date Provider Diagnosis [facility] Outpatient [address] [place] [phone] 06/21/2024 Ernesto Wu Plan Of Treatment No Information Progress Notes * MELISSA HUNT KDOB:[birth year] (80 yo M)Acc No.[id number]:06/21/2024 COLON WITH MAC Patient: MELISSA CRUZ Provider: Sheba Wu MD :1945 A ge:79 Y S ex:Male Date:06/21/2024 Address:[address] [place], [place] [phone] Pcp:MARC HERNANDEZ Subjective: * Chief Complaints: * S creening, hx polyps,hx colon ca * The named appointment provid er may or may not be the originator of this progress note, and it is not deemed complete until electronically signed by the appointment provider. Sign off status: Pending * Provider: Sheba Wu MD Date: 0 06/21/2024 Generated for Alfredo logan/Lila/Dakotaitting on: 11/28/2024 07:12 PM EST
--- OUTSIDE RECORDS SUMMARY | 2025-05-28 09:30 | XMS_ITS ---
Author Organization [facility] Address [address] [place] [address] Care Team Providers Care Bottle Blower Name Role Phone Stuart Lozano Primary Care Provider Unav ailable Marychuy Kelley Unavailable [phone] Encounters Encounter Location Date Provider Diagnosis [facility] [address] [place] [address] 05/28/2025 Marychuy Black Plan Of Treatment Next Appt Details Provider Name:Marychuy Kelley , 11/22/2025 01:45:00 PM, [address] [place], [address], Progress Notes * Casey SEWELL KDOB:[birth year] (80 yo M)Acc No.[id number]:05/28/2025 Progress Notes Patient: Casey CRUZ Provider: Karine Kelley DPM :1945 A ge:79 Y S ex:Male Date:05/28/2025 Address:[address] [place] [address] la[place] [id number] Pcp:IVORY Mattson Subjective: * Chief Complaints: * [...] 05/28/2025 Generated for Alfredo logan/Lila/Zo on: 1 11/28/2024 07:12 PM EST
--- OUTSIDE RECORDS SUMMARY | 2025-06-28 09:30 | XMS_ITS ---
Author Organization [facility] Address [address] [place] [address] Care Team Providers Care Senior Clerk Name Role Phone Stuart Lozano Primary Care Provider Unav ailable Marychuy Kelley Unavailable [phone] Encounters Encounter Location Date Provider Diagnosis [facility] [address] [place] [address] 06/28/2025 Marychuy Kelley Plan Of Treatment Next Appt Details Provider Name:Marychuy Kelley , 11/22/2025 01:45:00 PM, [address] [place], [address], Progress Notes * Casey SEWELL KDOB:[birth year] (80 yo M)Acc No.[id number]:06/28/2025 Progress Note Patient: Casey CRUZ Provider: Karine Kelley DPM :1945 A ge:80 Y S ex:Male Date:06/28/2025 Address:[address] [place] [address] laury [id number] Pcp:IVORY Mattson Subjective: * Chief Complaints: * [...] 06/28/2025 Generated for Alfredo logan/Lila/Zo on: 1 11/28/2024 07:12 PM EST
--- OUTSIDE RECORDS SUMMARY | 2025-07-20 05:30 | XMS_ITS ---
Author Organization [facility] Address [address] [place] [address] Care Team Providers Care Blower Installer Name Role Phone MARC HERNANDEZ Primary Care Provider Ernesto Beck [phone] REASON FOR VISIT screening,hx colon ca, hx adenomatous polyp colon Encounters Encounter Location Date Provider Diagnosis [facility] [place] [address] [place] [phone] 07/20/2025 Ernesto Wu Plan Of Treatment No Information Progress Notes * MELISSA HUNT KDOB:[birth year] (80 yo M)Acc No.[id number]:07/20/2025 COLON WITH MAC Patient: MELISSA CRUZ Provider: Sheba Wu MD :1945 A ge:80 Y S ex:Male Date:07/20/2025 Address:[address] [place], [place] [id number] Pcp:MARC HERNANDEZ Subjective: * Chief Complaints: * S creening,hx colon ca, hx adenomatous polyp colon * The named appointment provid er may or may not be the originator of this progress note, and it is not deemed complete until electronically signed by the appointment provider. Sign off status: Pending * Provider: Sheba Wu MD Date: Generated for Alfredo logan/Lila/eTransmitting on: 11/28/2024 07:13 PM EST
[2025-09-27 16:09] LABS: MANUAL DIFF FLAG NO
[2025-09-27 16:15] LABS: Hematocrit 39.5 % (42.0-52.0); Hemoglobin 14.1 g/dl (14.0-18.0); Imm Gran Abs Auto 0.02 X10*3/uL (0.00-0.03); Imm Gran Pct Auto 0.3 % (0.0-0.4); Lymphocytes Absolute Auto 2.1 X10*3/uL (1.2-4.9); Mean Corpuscular HGB Conc 35.7 g/dl (31.0-36.0); Mean Corpuscular Hemoglobin 32.3 pg (27.0-33.0); Mean Corpuscular Volume 90.4 fL (80.0-98.0); NRBC Abs Auto 0.000 X10*3/uL (0.0-0.012); NRBC Pct Auto 0.0 /100WBC (0.0-0.2); Platelet Count 372 X10*3/uL (160-400); Red Blood Count 4.37 X10*6/uL (4.60-5.80); White Blood Count 7.9 X10*3/uL (4.8-10.8)
[2025-09-27 17:01] LABS: Cholesterol 99 mg/dL (<200); HDL Cholesterol 40 mg/dL (>40); Lipase 19 U/L (8-78); Triglycerides 171 mg/dL (<150)
--- OUTSIDE RECORDS SUMMARY | 2025-09-27 19:12 | XMS_ITS | Clinical Summary ---
Author Organization [facility] Address [address] [place] [address] Phone Care Team Providers Care Bacon Slicer Name Role Phone Stuart Will NP Primary Care Provider [phone] Allergies Active Allergy Reactions Criticality Noted Date [...] (one) time each day. Active levocarnitine HCl (RDPMDH-I-UVHGK PRIMITIVO MISC) 500 mg. Active dihydroberberin e [...] (07/11/2025): - Seen multiple times in the [facility] [place] for breathlessness without rising cardiac markers -CT chest at [facility] showed severe coronary artery calcifications - Patient [...] Type Department Care Team Description 08/23/2025 Telephone [facility] [address] [place] [address] Stuart Hernandez MD 07/11/2025 2:10 PM EDT Office Visit [facility] [address] [place] [address] Gabriela Ang NP SOB (shortness of breath) (Primary Dx); Pure hypercholesterolemia from Last 3 Months Surgical History Surgery Date Site/Laterality Comments CARDIAC CATH DONE [place] 06/13/2025 [place] [facility] [place] IDICATIONS: Chest pain. Medical History Medical History Date Comments BPH (benign prostatic hyperplasia) Urethral stricture Necrosis of right ureter Vitamin D deficiency Osteoarthritis Colon cancer ([facility]/HCC V24, CMS/HCC V28) CKD (chronic kidney disease) [...] age to complete this topic Insurance MEDICARE [facility] Care Teams Bacon Slicer Relationship Specialty Start Date End Date Stuart Will NP [address] [place] [address] PCP - General Family Medicine 05/28/25
--- OUTSIDE RECORDS SUMMARY | 2025-09-27 19:12 | XMS_ITS | Clinical Summary ---
Author Organization [facility] Address [address] [place] [address] Phone Care Team Providers Care Grades 9 12 Tutor Name Role Phone Stuart Will AMBULATORY ANALYST Primary Care Provider + Social History Tobacco [...] Insurance MEDICARE A MEDICARE A MEDICARE A MEDICARE A MEDICARE A [facility] MEDICARE A [facility] MEDICARE A [facility] MEDICARE A [facility] MEDICARE A Care Teams Grades 9 12 Tutor Relationship Specialty Start Date End Date Stuart Will NP [facility] [place] [address] PCP - General Nurse Practitioner 04/27/24 Additional Source Comments The information contained in this document represents components of the legal health record. It is not the complete legal health record.[facility]
--- OUTSIDE RECORDS SUMMARY | 2025-09-27 19:12 | XMS_ITS | Encounter Summary ---
Author Organization [facility] Address [address] [place] [address] Phone Care Team Providers Care Educational/Development Assistant Name Role Phone Pcp, Unknown Primary Care Provider Stuart Carrasco TRANSPORTATION ATTENDANT Primary Care Provider + Encounter Details Date Type Department Care Team (Late st Contact Info) Description 01/10/2021 Transcribe Orders [facility] [address] [address] [address] Eric [address] [place] [address] [email or web address] Social History Tobacco Use Types [...] on filedocumented in this encounter Care Teams Educational/Development Assistant Relationship Specialty Start Date End Date Pcp, Unknown PCP - General 11/20/20 04/26/24 Stuart Will NP [address] [place] [address] PCP - General Nurse Practitioner 04/27/24 documented as of this encounter Additional Source Comments The information contained in this document represents components of the legal health record. It is not the complete legal health record.[facility]
--- OUTSIDE RECORDS SUMMARY | 2025-09-27 19:12 | XMS_ITS | Patient Health Record ---
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 [employer] Section Notes: Nonsmoker; no sig alcohol Nonsmoker; no sig alcohol Nonsmoker; no sig alcohol Nonsmoker; no sig alcohol Nonsmoker; no sig alcohol Problems Problem Type SNOMED Code ICD Code Onset Dates Problem Status W/U Status Risk Notes Problem Screening for malignant neoplasm of colon (316557134) Encounter for screening for malignant neoplasm of colon (Z12.11) Active confirmed Problem History of adenomatous polyp of colon (212099813) History of adenomatous polyp of colon (Z86.010) Active confirmed Problem Malignant neoplasm of transverse colon (535854458) 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 Problem Preprocedural examination (313946178689901) Preprocedural examination (Z01.818) Active confirmed Problem History of malignant neoplasm of colon (487900301) History of colon cancer (Z85.038) Active confirmed Problem Constipation (80900629) Constipation, unspecified constipation type (K59.00) Active confirmed Problem Diverticulosis of colon (186329364) Diverticulosis of colon (K57.30) Active confirmed Problem History of gastrointestinal tract bypass (758738951) Hx of Billroth II operation (Z98.0) Active [...] [facility] [address] [place] [address] 04/04/2025 Ernesto Wu History of adenomato us polyp of colon Z86.010 ; Irritable bowel syndrome K58.9 ; Encounter for screening for malignant neoplasm of colon Z12.11 ; History of colon cancer Z85.038 and Preprocedural examination Z01.818 [facility] [address] [place] [address] 09/26/2025 Ernesto Wu [facility] [address] [place] [address] 10/03/2024 Ernesto Wu [facility] [address] [place] [address] 01/30/2025 Ernesto Wu [facility] [address] [place] [address] 04/04/2025 Ernesto Wu [facility] [address] [place] [address] 04/05/2025 Ernesto Wu [facility] [address] [place] [address] 05/07/2025 Ernesto Wu Assessments Encounter Date Diagnosis [...] procedure. He will be seen by his assembly person prior to the procedure and I did [...] procedure. He will be seen by his assembly person prior to the procedure and I did [...] procedure. He will be seen by his assembly person prior to the procedure and I did [...] procedure. He will be seen by his assembly person prior to the procedure and I did [...] 04/04/2025 Preprocedural examination (ICD-10 - Z01.818) Overall, Jordni appears well from a GI standpoint. He [...] procedure. He will be seen by his assembly person prior to the procedure and I did [...] 02/23/2019 COLONOSCOPY 07/03/2020 COLONOSCOPY 01/29/2022 COLONOSCOPY 03/08/2024 Insurance Providers Payer Name Payer Address Payer Phone Subscriber Number Group Number Insured Name Patient Relationship to Insured Coverage Start Date Coverage End Date [facility] [address] [place], [place] [id number] MELISSA ELDER Self - patient is the insured Medical (General) History Medical History History ICD Code Denies NE,CVA,Lung disease,renal disease IDDM Pulmonary sarcoidosis- inactive Spherocytosis [...] surgery for stones with J[facility]ir[facility]
--- OUTSIDE RECORDS SUMMARY | 2025-09-27 19:12 | XMS_ITS | Patient Health Record ---
Author Organization [facility] [place] Address [address] [place] [address] Care Team Providers Care Merchandise Planning Manager Name Role Phone Stuart Lozano Primary Care Provider Unav ailable Black, Marychuy Unavailable [phone] Allergies Allergen (clinical drug ingredient) Drug/Non Drug Allergy documented on EMR Reaction Allergy Type Onset Date Status 12 Hour Nasal [place] Unknown Drug Allergy Active Dust Mites Unknown Allergy Active Results Component Value Reference Range Notes HEMOGLOBIN A1C (GLYCOHEMOGLO BIN) Reviewed date:07/16/2025 08:26:11 AM Interpretation: Performing Lab: Notes/Report: HEMOGLOBIN A1C % (HH) 5.2 Reason For Referral No Information Medications Medication SIG (Take, Route, Frequency, Duration) Notes Start Date End Date Status Lovastatin Not-Takin g Magnesium Not-Taking Lipitor 20 MG 1 tablet Orally Once a day Active Flax Seeds - as directed Orally Not-Taking Vitamin A Active Aspirin 81 81 MG 1 tablet Orally Once a day Not-Taking Z11-Btafft Active [place]aan 3-6-9 Not-Taki ng Vitamin D3 Active Nattokinase 100 MG as directed Orally Not-Taking Flax Seed Oil Active Extra Depth Orthopedic Shoes (1 Pair) with Customized Heat Molded Multidensity Innersoles (3 Pair) as directed Dx: IDDM/Polyneuropathy (E10.42), Hammertoe Foot Deformity (M20.41,M20.42), Preulcerative Skin Lesion(s) (L85.1) 06/02/2018 Not-Taking Keflex Not-Taking Vitamin B Complex - as directed Orally Active Multivitamins Not-Ta shellie Berberine HCI 500 MG as directed Orally Active Ascorbic Acid Not-Ta shellie HumaLOG Not-Taking Vitamin D Active Vitamin C & E Complex Not-Taking Metaform Not-Taking HumuLIN N Active Zinc Active Atenolol Not-Taking Vitamin E Not-Taking Prevnar 13 Not-Takin g Venlafaxine HCl Not- Taking Vitamin C 500 MG as directed Orally O nce a day Active Turmeric Active AFO-Hinged as directed Wear Juli ly; Duration: as needed 09/08/2021 Active Aspirin 81 MG 1 tablet Orally Once a day; Duration: 30 day(s) Active Antibacterial Alginate w/Silv 4.25 X4.25 as directed Externally 05/24/2025 Active Doxycycline Monohydrate 100 MG 1 capsule Orally Twice a day; Duration: 10 days 05/24/2025 Active Resveratrol Not- ng Ammonium Lactate 12 % 1 application Exte rnally to affected areas of dry skin to feet except for between the toes Twice a day; Duration: 30 days Not-Takin g Ciprofloxacin HCl 500 MG 1 tablet Orally every 12 hrs; Duration: 7 days 2025 Not-Taking Timolol Maleate PF N ot-Taking Co Q 10 10 MG as directed Orally Active Immunizations Vaccine Route Administration Date Status [...] Problem Acquired hammer toe of right foot (7925563852683367 ) Other hammer toe(s) (acquired), right foot (M20.41) Active confirmed Problem Acquired hammer toe of left foot (5674709032611399 ) Other hammer toe(s) (acquired), left foot (M20.42) Active confirmed Problem Polyneuropathy due to diabetes mellitus type I (575980791) 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 Problem Ulcer of toe of right foot (disorder) (9763250102389223 1) Skin ulcer of toe of right foot, limited to breakdown of skin (L97.511) Active confirmed Vital Signs Blood pressure diastolic 70 mm Hg 09/20/2025 Height 5ft 11in in 09/20/2025 Blood pressure systolic 115 mm Hg 09/20/2025 Weight 197 lbs 09/20/2025 BMI 27.47 kg/m2 09/20/2025 Procedures Procedure Date Ordered Date Performed Result Body Sit e 41630-YAOZHHU NAIL, 6 OR MORE 11/23/2024 N/A 32826-MPVG SKIN LESIONS, OVER 4 11/23/2024 N/A 15594-RCYSGFL NAIL, 6 OR MORE 03/15/2025 N/A 54610- Debride <25 sq cm 03/15/2025 N/A 44163-YPYM SKIN LESIONS, OVER 4 03/15/2025 N/A 67809- Debride <25 sq cm 04/02/2025 N/A 31281- Debride <25 sq cm 04/30/2025 N/A 06388-TRJGHGD NAIL, 6 OR MORE 05/24/2025 N/A 26444 I&D ABSCESS- SIMPLE,SINGLE 05/24/2025 N/A 17680-GXRJ SKIN LESIONS, OVER 4 05/24/2025 N/A 99277- Debride <25 sq cm 06/07/2025 N/A 57306- Debride <25 sq cm 06/18/2025 N/A 58623- Debride <25 sq cm 07/02/2025 N/A 63442- Debride <25 sq cm 07/16/2025 N/A 03037-RGXBQCF NAIL, 6 OR MORE 08/16/2025 N/A 90062- Debride <25 sq cm 08/16/2025 N/A 79738-LHEJ SKIN LESIONS, OVER 4 08/16/2025 N/A 61511- Debride <25 sq cm 09/20/2025 N/A Encounters Encounter Location Date Provider Diagnosis [address] [address] 11/23/2024 Marychuy Black Type 1 diabetes mellitus with diabetic polyneuropathy E10.42 ; Xerosis of skin L85.3 and Tinea unguium B35.[address] [address] 03/15/2025 Marychuy Black Type 1 diabetes mellitus with diabetic polyneuropathy E10.42 ; Xerosis of skin L85.3 ; Tinea unguium B35.1 and Skin ulcer of toe of right foot, limited to breakdown of skin L97.[address] [address] 04/02/2025 Marychuy Black Neuropathic ulcer of right foot, limited to breakdown of skin L97.511 and Type 1 diabetes mellitus with diabetic polyneuropathy E10.[address] [address] 04/30/2025 Marychuy Black Neuropathic ulcer of right foot, limited to breakdown of skin L97.511 and Type 1 diabetes mellitus with diabetic polyneuropathy E10.[address] [address] 05/24/2025 Marychuy Black Type 1 diabetes mellitus with diabetic polyneuropathy E10.42 ; Cellulitis of right toe L03.031 ; Tinea unguium B35.1 and Cutaneous abscess of right foot L02.[address] [address] 06/07/2025 Marychuy Black Type 1 diabetes mellitus with diabetic polyneuropathy E10.42 ; Cellulitis of right toe L03.031 and Skin ulcer of toe of right foot, limited to breakdown of skin L97.[address] [address] 06/18/2025 Marychuy Black Type 1 diabetes mellitus with diabetic polyneuropathy E10.42 and Skin ulcer of toe of right foot, limited to breakdown of skin L97.[address] [address] 07/02/2025 Marychuy Black Type 1 diabetes mellitus with diabetic polyneuropathy E10.42 and Skin ulcer of toe of right foot, limited to breakdown of skin L97.[address] [address] 07/16/2025 Marychuy Black Type 1 diabetes mellitus with diabetic polyneuropathy E10.42 ; Skin ulcer of toe of right foot, limited to breakdown of skin L97.511 ; Other hammer toe(s) (acquired), right foot M20.41 and Other hammer toe(s) (acquired), left foot M20.[address] [address] 08/16/2025 Marychuy Black Type 1 diabetes mellitus with diabetic polyneuropathy E10.42 ; Skin ulcer of toe of right foot, limited to breakdown of skin L97.511 and Tinea unguium B35.[address] [address] 09/20/2025 Marychuy Black Type 1 diabetes mellitus with diabetic polyneuropathy E10.42 and Skin ulcer of toe of right foot, limited to breakdown of skin L97.[address] [address] 11/23/[address] [address] 04/30/2025 Marychuy Black [address] [address] 05/01/2025 Marychuy Black [facility] [address] [place] [address] 05/24/2025 Marychuy Black [facility] [address] [place] [address] 05/28/2025 Marychuy Black Cellulitis of right toe L03.031 [facility] [address] [place] [address] 06/01/2025 Marychuy Black Cellulitis of right toe L03.031 [facility] [address] [place] [address] 06/12/2025 Marychuy Black [facility] [address] [facility] [address] [place] [address] 06/18/2025 Marychuy Black Assessments Encounter Date Diagnosis [...] with diabetic polyneuropathy (ICD-10 - E10.42) 08/16/2025 Type 1 diabetes mellitus with diabetic polyneuropathy (ICD-10 - E10.42) 08/16/2025 Skin ulcer of toe of right foot, limited to breakdown of skin (ICD-10 - L97.511) 09/20/2025 Type 1 diabetes mellitus with diabetic polyneuropathy (ICD-10 - E10.42) 07/16/2025 Type 1 diabetes mellitus with diabetic polyneuropathy (ICD-10 - E10.42) 07/16/2025 Skin ulcer of toe of right foot, limited to breakdown of skin (ICD-10 - L97.511) 09/20/2025 Skin ulcer of toe of right foot, [...] Test Name Order Date Hemoglobin A1c 12/02/2015 01429-QTKWURA NAIL, 6 OR MORE 08/16/2025 98531-VWSTXFD NAIL, 6 OR MORE 11/23/2024 46166-IWIJXUU NAIL, 6 OR MORE 05/24/2025 14691-XGUERMW NAIL, 6 OR MORE 07/08/2023 60285-QVHRFMZ NAIL, 6 OR MORE 10/21/2023 55749-DTMALRL NAIL, 6 OR MORE 05/11/2024 20198-PWLNBLQ NAIL, 6 OR MORE 03/15/2025 74741-RIGXOGF NAIL, 6 OR MORE 12/02/2020 03650-HOKVNUL NAIL, 6 OR MORE 03/13/2021 16584-PHIKOGM NAIL, 6 OR MORE 06/09/2021 15621-DIJBGRV NAIL, 6 OR MORE 09/08/2021 65769-ODTUGRV NAIL, 6 OR MORE 01/30/2022 77016-VJOGKOJ NAIL, 6 OR MORE 06/22/2022 78883-LJGDQRA NAIL, 6 OR MORE 09/28/2022 50484-AUTZZJU NAIL, 6 OR MORE 12/28/2022 62055-SJEDRGV NAIL, 6 OR MORE 04/05/2023 04139-SRPOZRG NAIL, 6 OR MORE 10/01/2011 75736-HXADKDL NAIL, 6 OR MORE 12/03/2011 00969-MLIKLDN NAIL, 6 OR MORE 03/03/2012 00308-BUBCZMI NAIL, 6 OR MORE 06/02/2012 07173-FFXUJFE NAIL, 6 OR MORE 11/03/2012 96253-PJFCGPS NAIL, 6 OR MORE 01/23/2013 15322-GPUYNWX NAIL, 6 OR MORE 04/03/2013 70165-CLNZCSY NAIL, 6 OR MORE 06/28/2013 83981-UUGGRMT NAIL, 6 OR MORE 09/13/2013 75274-AVKZAKK NAIL, 6 OR MORE 12/13/2013 02229-WUUTWAG NAIL, 6 OR MORE 03/22/2014 62206-QIWVJEW NAIL, 6 OR MORE 06/21/2014 84188-VXFDASL NAIL, 6 OR MORE 09/20/2014 51946-BGUGBMJ NAIL, 6 OR MORE 12/06/2014 08844-EXHSLEP NAIL, 6 OR MORE 02/21/2015 97754-CBXMOLP NAIL, 6 OR MORE 05/13/2015 78123-MNKUEWJ NAIL, 6 OR MORE 09/09/2015 32818-VQJJAMR NAIL, 6 OR MORE 12/02/2015 93528-VGTCVDN NAIL, 6 OR MORE 02/24/2016 54154-FHHHAQU NAIL, 6 OR MORE 06/01/2016 09989-XFEDJBH NAIL, 6 OR MORE 08/27/2016 04743-LUJYATF NAIL, 6 OR MORE 12/07/2016 23068-CNQFBSN NAIL, 6 OR MORE 03/11/2017 04195-LEWMZAA NAIL, 6 OR MORE 06/24/2017 17097-OBDBYBW NAIL, 6 OR MORE 09/27/2017 24033-QQVVVOH NAIL, 6 OR MORE 12/27/2017 86104-MBTPTWJ NAIL, 6 OR MORE 06/02/2018 17002-GPDDIRG NAIL, 6 OR MORE 08/25/2018 44184-ETVBGOO NAIL, 6 OR MORE 11/24/2018 70825-QHAVHNW NAIL, 6 OR MORE 03/09/2019 81211-BTQFHZV NAIL, 6 OR MORE 06/05/2019 22845-RSYVPAM NAIL, 6 OR MORE 09/18/2019 49920-NYFUCEU NAIL, 6 OR MORE 03/11/2020 98180-BDNWKYC NAIL, 6 OR MORE 06/13/2020 87062-ZXJWYLF NAIL, 6 OR MORE 09/23/2020 10777-TQFZIQD NAIL, 1-5 08/17/2024 60848-YHNBFMN NAIL, 1-5 01/20/2024 51358-Iaix Destruction, -14 09/08/2021 17315-Lisj Destruction, -14 06/09/2021 18821-Htxx Destruction, -14 03/11/2020 29992-Atzl Destruction, -14 06/05/2019 15608-Cxwi Destruction, -14 09/18/2019 54646-Yfzt Destruction, -14 03/09/2019 45377-Vqnw Destruction, -14 05/13/2015 89327-Mrhw Destruction, 10-2402/21/2015 79670-Fhzb Destruction, 10-2412/06/2014 67469-Sowg Destruction, 10-2409/20/2014 26395-Vmqx Destruction, 10-2406/21/2014 10749-Xqia Destruction, 10-2403/22/2014 17697-Nhku Destruction, 10-2412/13/2013 00755-Dpiu Destruction, 10-2409/13/2013 21832-Wwus Destruction, 10-2406/28/2013 66415-Ytnn Destruction, 10-2404/03/2013 61597-Asxv Destruction, 10-2401/23/2013 59356-Vteg Destruction, 10-2411/03/2012 01523-Zwlv Destruction, 10-2406/02/2012 80085-Bnob Destruction, 10-2410/01/2011 92854-Kmku Destruction, 10-2403/03/2012 13477-Lzcb Destruction, 10-2412/03/2011 00249-Smzxogcm Plate 03/03/2012 50927-Mkbfptcp Plate 12/03/2011 71899-Lreuzcgj Plate 06/02/2012 91730-Ojobcbom Plate 01/23/2013 34124-Wibwtlto Plate 04/03/2013 89834-Cmbhlzyy Plate 06/28/2013 57890-Xyezrpot Plate 09/13/2013 00647-Yzyteuvh Plate 12/13/2013 68516-Anghmsrn Plate 03/22/2014 49818-Weydijsz Plate 06/21/2014 00017-Omoyurew Plate 09/20/2014 62577-Wzikdfsf Plate 12/06/2014 82266-Ugkxwimw Plate 02/21/2015 97548-Miuamqya Plate 05/13/2015 67485-Phestpty Plate 12/27/2017 30505-Oeghmdoa Plate 06/05/2019 08328-Kxrzmtpf Plate 11/24/2018 40088-Flypkwbq Plate 03/09/2019 53499-Gozqkqao Plate 08/25/2018 30284-Puahlkmu Plate 09/18/2019 38326-Gjkasuep Plate 03/11/2020 90522-Wavkldbz Plate 09/27/2017 31595-Vkqbkfzw Plate 12/07/2016 94239-Iedvqsab Plate 08/27/2016 79956-Pfdyavtb Plate 06/01/2016 13504-Onvatxao Plate 02/24/2016 91905-Tqfmwzfa Plate 12/02/2015 88721-Nwcfdugh Plate 11/03/2012 89775-Kgcqkvnp Plate 09/09/2015 25110-Otlhsxfo Plate 06/09/2021 58447-Xjhaffky Plate 06/13/2020 09350-Lxirxztr Plate 09/08/2021 53466-Frpmivxt Plate 03/13/2021 96933-Ralyhtnj Plate 09/23/2020 91775-Pcxzhhzn Plate 01/30/2022 55375-Xokasyfs Plate 06/22/2022 17137-Fmksabqx Plate 01/20/2024 47254-Nzafxori Plate 08/17/2024 37760-Poaufzlj Plate Each Additional 09/2022 69341-Uvljovxk Plate Each Additional 04/2024 35847-Epxswiap Plate Each Additional 91266-Xeiygfvr Plate Each Additional 08436-Rkwxtyqq Plate Each Additional 12/2020 56900-Ekoqopis Plate Each Additional 03890-Avmabhgf Plate Each Additional 75286-Niljseav Plate Each Additional 40234-Odizfwbo Plate Each Additional 92465-Ekdlxksx Plate Each Additional 48408-Tspjofrv Plate Each Additional 81868-Bxrhtzls Plate Each Additional 85866-Ooyqeaix Plate Each Additional 70756-Owctujka Plate Each Additional 12868-Pybkkmpw Plate Each Additional 06/2019 27670-Ztojcfad Plate Each Additional 10/2019 70481-Balickim Plate Each Additional 09329-Gwsblcob Plate Each Additional 69218-Aomfcmbu Plate Each Additional 09576-Gmrxaqop Plate Each Additional 12/2014 99346-Mzluapoz Plate Each Additional 39002-Ydhrwmyz Plate Each Additional 34878-Uifxdcwj Plate Each Additional 08/2014 09481-Gzppepie Plate Each Additional 08/2014 17937-Evifpcll Plate Each Additional 09/2014 14502-Bhfjfdph Plate Each Additional 02/2014 13955-Bctxikai Plate Each Additional 01/2013 17209-Atvamsbd Plate Each Additional 52758-Vvyghbpp Plate Each Additional 90071-Lgosobzi Plate Each Additional 19984-Nhqhwphc Plate Each Additional 04527-Oywbtlfp Plate Each Additional 92523- Debride <25 sq cm 06/13/2020 14226- Debride <25 sq cm 04/05/2023 16425- Debride <25 sq cm 03/15/2025 99796- Debride <25 sq cm 04/02/2025 30702- Debride <25 sq cm 04/30/2025 73482- Debride <25 sq cm 06/07/2025 32849- Debride <25 sq cm 06/18/2025 95483- Debride <25 sq cm 07/02/2025 21811- Debride <25 sq cm 07/16/2025 10873- Debride <25 sq cm 08/16/2025 13674- Debride <25 sq cm 09/20/2025 40474 I&D ABSCESS- SIMPLE,SINGLE 025 43213 I&D ABSCESS- SIMPLE,SINGLE 013 75531 I&D ABSCESS- SIMPLE,SINGLE 013 09999-KQNE SKIN LESIONS, OVER 4 01/24/20 13 73208-YIVZ SKIN LESIONS, OVER 4 11/03/19 13 08080-FSTL SKIN LESIONS, OVER 4 04/03/20 13 16497-OIZJ SKIN LESIONS, OVER 4 06/28/20 13 56559-SUEB SKIN LESIONS, OVER 4 09/13/20 13 48757-QZAO SKIN LESIONS, OVER 4 12/14/19 14 27451-MEOV SKIN LESIONS, OVER 4 03/22/20 14 04634-JXBG SKIN LESIONS, OVER 4 06/21/20 14 72704-KZXC SKIN LESIONS, OVER 4 09/20/20 14 73527-ZQHE SKIN LESIONS, OVER 4 12/06/19 15 57621-EGBF SKIN LESIONS, OVER 4 02/22/20 15 08699-YIYU SKIN LESIONS, OVER 4 05/13/20 15 77052-TPFA SKIN LESIONS, OVER 4 06/13/20 20 48273-ARZJ SKIN LESIONS, OVER 4 09/23/20 20 19746-IMLD SKIN LESIONS, OVER 4 03/11/20 20 73845-MPJK SKIN LESIONS, OVER 4 09/18/20 19 06531-PCFP SKIN LESIONS, OVER 4 03/09/20 19 71074-OOEC SKIN LESIONS, OVER 4 06/05/20 19 44911-ZUMI SKIN LESIONS, OVER 4 11/24/19 19 30378-GOYX SKIN LESIONS, OVER 4 08/25/20 18 14868-AUYP SKIN LESIONS, OVER 4 12/28/19 18 40758-RXPV SKIN LESIONS, OVER 4 06/02/20 18 74267-ZLGX SKIN LESIONS, OVER 4 09/27/20 17 22709-KPGS SKIN LESIONS, OVER 4 06/24/20 17 35922-WVHA SKIN LESIONS, OVER 4 12/07/19 17 15105-YMMC SKIN LESIONS, OVER 4 03/11/20 17 80708-BXOQ SKIN LESIONS, OVER 4 08/27/20 16 44705-ZCBO SKIN LESIONS, OVER 4 06/01/20 16 73439-VMFG SKIN LESIONS, OVER 4 02/24/20 16 40784-EXOH SKIN LESIONS, OVER 4 12/02/19 16 05923-HTTM SKIN LESIONS, OVER 4 09/09/20 15 26516-GJLX SKIN LESIONS, OVER 4 03/15/20 25 97244-FWKO SKIN LESIONS, OVER 4 08/16/20 25 37395-KYKP SKIN LESIONS, OVER 4 05/24/20 25 50842-JJYC SKIN LESIONS, OVER 4 08/17/20 24 12610-JAXB SKIN LESIONS, OVER 4 11/23/19 25 55024-TNWS SKIN LESIONS, OVER 4 05/11/20 24 57105-XGYW SKIN LESIONS, OVER 4 01/20/20 24 92377-YGIE SKIN LESIONS, OVER 4 10/21/19 24 54653-YGNY SKIN LESIONS, OVER 4 04/05/20 23 57407-TULL SKIN LESIONS, OVER 4 07/08/20 23 09339-UPHQ SKIN LESIONS, OVER 4 12/29/19 23 78156-ZTIQ SKIN LESIONS, OVER 4 09/28/20 59864-PTAW SKIN LESIONS, OVER 4 06/22/20 59216-FABK SKIN LESIONS, OVER 4 01/31/20 29636-GNZT SKIN LESIONS, OVER 4 09/08/20 21 32938-NTMF SKIN LESIONS, OVER 4 06/09/20 21 43469-NTBE SKIN LESIONS, OVER 4 12/02/19 21 88614-EIEO SKIN LESIONS, OVER 4 03/13/20 21 83614-QKUY SKIN LESIONS, 2 TO 4 06/02/20 12 79112-MUJY SKIN LESIONS, 2 TO 4 03/03/20 12 60066-QAIF SKIN LESIONS, 2 TO 4 12/03/19 12 62430-CAVK SKIN LESIONS, 2 TO 4 10/01/20 11 Next Appt Details Provider Name:Marychuy Kelley , 11/22/2025 01:45:00 PM, [address] [place], [address], Insurance Providers Payer Name Payer Address Payer Phone Subscriber Number Group Number Insured Name Patient Relationship to Insured Coverage Start Date Coverage End Date [facility] [id number] [place] [address] [id number] Casey Ulrich Self - patient is the [...] History Reason Date(Month/Year) ER- blocked arteries 07/05 [facility] - chest pains 02/02 [facility]- Possible Heart Attack/Stress Anxiet y/Covid 07/31 [facility]- Bladder [facility] Scan [facility]- chest pain 10/31 [facility]- Pressure wound right ankle - saw levar bonilla [facility]- chest pain 10/2015
--- OUTSIDE RECORDS SUMMARY | 2025-09-27 19:13 | XMS_ITS | Clinical Summary ---
Author Organization [facility], Address [address] [place] [address] [place] [address] Phone Care Team Providers Care Yarn Handler Name Role Phone Stuart Will NP Primary Care Provider [phone] Allergies Active Allergy Reactions Criticality Noted Date [...] to complete this topic Insurance [address] [address] Care Teams Yarn Handler Relationship Specialty Start Date End Date Stuart Will NP [address] [place] [address] PCP - General Nurse Practitioner 12/06/20
[2025-09-28 08:12] LABS: HBS Num1 0.00 mIU/mL (0-7.99); HBc Num1 0.08 S/CO (0.00-0.79); HBsAGNum1 0.45 S/CO (0.00-0.99); Hepatitis A Antibody IgM 0.15 Index (0-0.79); Hepatitis B Surface Antigen Negative (Negative); ~HepC Num1 0.12 S/CO (0.00-0.79); ~Hepatitis A Antibody IgM Nonreactive (Nonreactive); ~Hepatitis B Surface Antibody NONREACTIVE (Nonreactive); ~Hepatitis C Antibody Nonreactive (Nonreactive)
== END 2025-09-27 15:12 | disposition home or self-care (01) ==
LOC: HO.HMGCLDS 15:11
PROVIDERS: PCP Nurse Practitioner Family; Visit Provider Nurse Practitioner Family
DX: Z01.84 Encounter for antibody response examination (principal); E11.9 Type 2 diabetes mellitus without complications; R10.13 Epigastric pain; R97.8 Other abnormal tumor markers
CPT/HCPCS: 36415; 80061; 82247; 82248; 83690; 84443; 85025; 86015; 86301; 86381; 86704; 86706; 86709; 86803; 87340

== ENCOUNTER 2025-10-08 13:55 | Outpatient (REF) | payer BC, SELFPAY ==
--- OUTSIDE RECORDS SUMMARY | 2024-06-21 05:30 | XMS_ITS ---
Author Organization [facility] Address [address] [place] [address] Care Team Providers Care Traditional Maori Health Practitioner Name Role Phone MARC HERNANDEZ Primary Care Provider Ernesto Beck [phone] REASON FOR VISIT screening, hx polyps,hx colon ca Encounters Encounter Location Date Provider Diagnosis [facility] Outpatient [address] [place] [id number] 06/21/2024 Ernesto Wu Plan Of Treatment No Information Progress Notes * MELISSA HUNT KDOB:[birth year] (80 yo M)Acc No.[id number]:06/21/2024 COLON WITH MAC Patient: MELISSA CRUZ Provider: Sheba Wu MD :1945 A ge:79 Y S ex:Male Date:06/21/2024 Address:[address] [place], [place] [phone] Pcp:MARC HERNANDEZ Subjective: * Chief Complaints: * S creening, hx polyps,hx colon ca * The named appointment provid er may or may not be the originator of this progress note, and it is not deemed complete until electronically signed by the appointment provider. Sign off status: Pending * Provider: Sheba Wu MD Date: 0 06/21/2024 Generated for Alfredo logan/Lila/Dakotaitting on: 04:13 PM EST
--- OUTSIDE RECORDS SUMMARY | 2025-05-28 09:30 | XMS_ITS ---
Author Organization [facility] Address [address] [place] [address] Care Team Providers Care Inorganic Chemistry Professor Name Role Phone Stuart Lozano Primary Care Provider Unav ailable Marychuy Kelley Unavailable [phone] Encounters Encounter Location Date Provider Diagnosis [facility] [address] [place] [address] 05/28/2025 Marychuy Black Plan Of Treatment Next Appt Details Provider Name:Marychuy Kelley , 11/22/2025 01:45:00 PM, [address] [place], [address], Progress Notes * Casey SEWELL KDOB:[birth year] (80 yo M)Acc No.[id number]:05/28/2025 Progress Notes Patient: Casey CRUZ Provider: Karine Kelley DPM :1945 A ge:79 Y S ex:Male Date:05/28/2025 Address:[address] [place] [address] la[place] [id number] Pcp:IVORY Mattson Subjective: * Chief Complaints: * [...] 05/28/2025 Generated for Alfredo logan/Lila/Zo on: 1 04:13 PM EST
--- OUTSIDE RECORDS SUMMARY | 2025-06-28 09:30 | XMS_ITS ---
Author Organization [facility] Address [address] [place] [address] Care Team Providers Care Plumbing Assembler Installer Name Role Phone Stuart Lozano Primary Care Provider Unav ailable Marychuy Kelley Unavailable [phone] Encounters Encounter Location Date Provider Diagnosis [facility] [address] [place] [address] 06/28/2025 Marychuy Kelley Plan Of Treatment Next Appt Details Provider Name:Marychuy Kelley , 11/22/2025 01:45:00 PM, [address] [place], [address], Progress Notes * Casey SEWELL KDOB:[birth year] (80 yo M)Acc No.[id number]:06/28/2025 Progress Note Patient: Casey CRUZ Provider: Karine Kelley DPM :1945 A ge:80 Y S ex:Male Date:06/28/2025 Address:[address] [place] [address] laury [id number] Pcp:IVORY Mattson Subjective: * Chief Complaints: * * Medical History: Objective: * Vitals: Assessment: Plan: * Treatment: * Images: * The named appointment provid er may or may not be the originator of this progress note, and it is not deemed complete until electronically signed by the appointment provider. Sign off status: Pending * Provider: Karine Kelley DPM Date: 0 06/28/2025 Generated for Alfredo logan/Lila/Zo on: 1 04:12 PM EST
--- OUTSIDE RECORDS SUMMARY | 2025-07-20 05:30 | XMS_ITS ---
Author Organization [facility] Address [address] [place] [address] Care Team Providers Care Hat Sizer Name Role Phone MARC HERNANDEZ Primary Care Provider Ernesto Beck [phone] REASON FOR VISIT screening,hx colon ca, hx adenomatous polyp colon Encounters Encounter Location Date Provider Diagnosis [facility] Outpatient [address] [place] [phone] 07/20/2025 Ernesto Wu Plan Of Treatment No Information Progress Notes * MELISSA HUNT KDOB:[birth year] (80 yo M)Acc No.[id number]:07/20/2025 COLON WITH MAC Patient: MELISSA CRUZ Provider: Sheba Wu MD :1945 A ge:80 Y S ex:Male Date:07/20/2025 Address:[address] [place], [place] [address] Pcp:MARC HERNANDEZ Subjective: * Chief Complaints: * S creening,hx colon ca, hx adenomatous polyp colon * The named appointment provid er may or may not be the originator of this progress note, and it is not deemed complete until electronically signed by the appointment provider. Sign off status: Pending * Provider: Sheba Wu MD Date: Generated for Alfredo logan/Lila/eTransmitting on: 04:13 PM EST
--- OUTSIDE RECORDS SUMMARY | 2025-10-08 16:12 | XMS_ITS | Patient Health Record ---
Author Organization [facility] Address [address] [place] [address] Care Team Providers Care Surface Plate Inspector Name Role Phone MARC HERNANDEZ Primary Care Provider Ernesto Beck [phone] Allergies No Known Allergies Results Component Value Reference Range Flag Notes Microalbumin, Random Reviewed date:10/04/2025 11:10:28 PM Interpretation: Performing Lab:[facility], [address] [place] [phone] Notes/Report: Creatinine Urine 56.57 Microalbumin Urine < 5.0 Microalbum/Creatinine Ratio Ur TNP <30 ug/mg cr Unable to calculate albumin/creatinine ratio due to low microalbumin or creatinine result. UA CC w/rflx Micro + Cult Reviewed date:10/04/2025 11:10:28 PM Interpretation: Performing Lab:[facility], [address] [place] [phone] Notes/Report: Urine, Clean Catch Color Urine Dark Yellow Appearance Urine Clear PH 6.5 5.0-9.0 N Glucose Urine UA Negative Negative mg/dL Urine Blood Negative Negative Specific Davison - Urine 1.010 1.005-1.025 N Urine Protein Negative Neg-Trace mg/dL Urine Ketones Negative Negative mg/dL Nitrite Urine Negative Negative Leukocyte Esterase Urine Negative Negative Reason For Referral No Information Medications Medication [...] Miscellaneous: Marital status: single 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 [employer] Section Notes: Nonsmoker; no sig alcohol Nonsmoker; no sig alcohol Nonsmoker; no sig alcohol Nonsmoker; no sig alcohol Nonsmoker; no sig alcohol Problems Problem Type SNOMED Code ICD Code Onset Dates Problem Status W/U Status Risk Notes Problem Screening for malignant neoplasm of colon (677330416) Encounter for screening for malignant neoplasm of colon (Z12.11) Active confirmed Problem History of adenomatous polyp of colon (324355612) History of adenomatous polyp of colon (Z86.010) Active confirmed Problem 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) 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 Problem Preprocedural examination (830985189067907) Preprocedural examination (Z01.818) Active confirmed Problem History of malignant neoplasm of colon (014368567) History of colon cancer (Z85.038) Active confirmed Problem Constipation (12732277) Constipation, unspecified constipation type (K59.00) Active confirmed Problem Diverticulosis of colon (976433011) Diverticulosis of colon (K57.30) Active confirmed Problem History of gastrointestinal tract bypass (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) Active confirmed Vital Signs Temperature 97.9 degrees Fahrenheit 04/04/2025 Blood pressure diastolic 01 mm Hg 04/04/2025 Height 71.5 in 04/04/2025 Blood pressure systolic 001 mm Hg 04/04/2025 Weight 196 lbs 04/04/2025 BMI 26.95 kg/m2 04/04/2025 Procedures Procedure Date Ordered Date Performed Result Body Sit e COLONOSCOPY 04/04/2025 N/A Encounters Encounter Location Date Provider Diagnosis [facility] [address] [place] [address] 04/04/2025 Ernesto Wu History of adenomato us polyp of colon Z86.010 ; Irritable bowel syndrome K58.9 ; Encounter for screening for malignant neoplasm of colon Z12.11 ; History of colon cancer Z85.038 and Preprocedural examination Z01.818 [facility] [address] [place] [address] 09/26/2025 Ernesto Wu [facility] [address] [place] [address] 01/30/2025 Ernesto Wu [facility] [address] [place] [address] 04/04/2025 Ernesto Wu [facility] [address] [place] [address] 04/05/2025 Ernesto Wu [facility] [address] [place] [address] 05/07/2025 Ernesto Wu Assessments Encounter Date Diagnosis [...] procedure. He will be seen by his product safety administrator prior to the procedure and I did [...] procedure. He will be seen by his product safety administrator prior to the procedure and I did [...] procedure. He will be seen by his product safety administrator prior to the procedure and I did [...] procedure. He will be seen by his product safety administrator prior to the procedure and I did [...] procedure. He will be seen by his product safety administrator prior to the procedure and I did [...] Insured Coverage Start Date Coverage End Date [facility] [address] [place], [place] [id number] MELISSA ELDER Self - patient is the insured Medical (General) History Medical History History ICD Code Denies [place],CVA,Lung disease,renal disease IDDM Pulmonary sarcoidosis- inactive Spherocytosis [...] surgery for stones with Jazlyn Liriano at [facility]
--- OUTSIDE RECORDS SUMMARY | 2025-10-08 16:12 | XMS_ITS | Encounter Summary ---
Author Organization [facility] Address [address] [place] [address] Phone Care Team Providers Care Space Planner Name Role Phone Pcp, Unknown Primary Care Provider Stuart Carrasco BUSINESS INTERN Primary Care Provider + Encounter Details Date Type Department Care Team (Late st Contact Info) Description 01/10/2021 Transcribe Orders [facility] [address] [address] [address] [place] [address] [email or web address] Social History Tobacco Use Types [...] on filedocumented in this encounter Care Teams Space Planner Relationship Specialty Start Date End Date Pcp, Unknown PCP - General 11/20/20 04/26/24 Stuart Will NP [address] [facility] [place] [address] PCP - General Nurse Practitioner 04/27/24 documented as of this encounter Additional Source Comments The information contained in this document represents components of the legal health record. It is not the complete legal health record.[facility]
--- OUTSIDE RECORDS SUMMARY | 2025-10-08 16:13 | XMS_ITS | Clinical Summary ---
Author Organization [facility] Address [address] [place] [address] Phone Care Team Providers Care Public Service Administrator Name Role Phone Stuart Will PROGRAM EVALUATION CONSULTANT Primary Care Provider + Social History Tobacco [...] A MEDICARE A MEDICARE A MEDICARE A [facility] MED[facility] MED[facility] MEDIC[facility] A Care Teams Public Service Administrator Relationship Specialty Start Date End Date Stuart Will NP [facility] [place] [address] PCP - General Nurse Practitioner 04/27/24 Additional Source Comments The information contained in this document represents components of the legal health record. It is not the complete legal health record.[facility]
--- OUTSIDE RECORDS SUMMARY | 2025-10-08 16:13 | XMS_ITS | Patient Health Record ---
Author Organization [facility]i [facility] Address [address] [place] [address] Care Team Providers Care Organic Preparation Technician Name Role Phone Stuart Lozano Primary Care Provider Unav ailable Black, Marychuy Unavailable [phone] Allergies Allergen (clinical drug ingredient) Drug/Non Drug Allergy documented on EMR Reaction Allergy Type Onset Date Status 12 Hour Nasal [place] Unknown Drug Allergy Active Dust Mites Unknown [...] 1 tablet Orally Once a day Not-Taking F82-Ypttiz Active [place] 3-6-9 Not-Taki ng Vitamin D3 Active Nattokinase [...] Problem Acquired hammer toe of right foot (3604081656581815 ) Other hammer toe(s) (acquired), right foot (M20.41) Active confirmed Problem Acquired hammer toe of left foot (1506192532391885 ) Other hammer toe(s) (acquired), left foot (M20.42) Active confirmed Problem Polyneuropathy due to diabetes mellitus type I (018593749) 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 Problem Ulcer of toe of right foot (disorder) (9738822423053253 1) Skin ulcer of toe of right foot, limited to breakdown of skin (L97.511) Active confirmed Vital Signs Blood pressure diastolic 70 mm Hg 09/20/2025 Height 5ft 11in in 09/20/2025 Blood pressure systolic 115 mm Hg 09/20/2025 Weight 197 lbs 09/20/2025 BMI 27.47 kg/m2 09/20/2025 Procedures Procedure Date Ordered Date Performed Result Body Sit e 18602-MTZDOPC NAIL, 6 OR MORE 11/23/2024 N/A 39305-ITYN SKIN LESIONS, OVER 4 11/23/2024 N/A 08799-XIWIUTH NAIL, 6 OR MORE 03/15/2025 N/A 29438- Debride <25 sq cm 03/15/2025 N/A 93461-HHGE SKIN LESIONS, OVER 4 03/15/2025 N/A 34671- Debride <25 sq cm 04/02/2025 N/A 86680- Debride <25 sq cm 04/30/2025 N/A 38084-BICGEDU NAIL, 6 OR MORE 05/24/2025 N/A 60373 I&D ABSCESS- SIMPLE,SINGLE 05/24/2025 N/A 46338-LYUR SKIN LESIONS, OVER 4 05/24/2025 N/A 35719- Debride <25 sq cm 06/07/2025 N/A 91490- Debride <25 sq cm 06/18/2025 N/A 30012- Debride <25 sq cm 07/02/2025 N/A 74188- Debride <25 sq cm 07/16/2025 N/A 31278-QXYYZRV NAIL, 6 OR MORE 08/16/2025 N/A 98041- Debride <25 sq cm 08/16/2025 N/A 73039-GTQO SKIN LESIONS, OVER 4 08/16/2025 N/A 67162- Debride <25 sq cm 09/20/2025 N/A Encounters Encounter Location Date Provider Diagnosis [address] [address] 11/23/2024 Marychuy Black Type 1 diabetes mellitus with diabetic polyneuropathy E10.42 ; Xerosis of skin L85.3 and Tinea unguium B35.[address] [address] 03/15/2025 Marychuy Black Type 1 diabetes mellitus with diabetic polyneuropathy E10.42 ; Xerosis of skin L85.3 ; Tinea unguium B35.1 and Skin ulcer of toe of right foot, limited to breakdown of skin L97.[address] [address] 04/02/2025 Marychuy Black Neuropathic ulcer of right foot, limited to breakdown of skin L97.511 and Type 1 diabetes mellitus with diabetic polyneuropathy E10.[address] [address] 04/30/2025 Marychuy Black Neuropathic ulcer of right foot, limited to breakdown of skin L97.511 and Type 1 diabetes mellitus with diabetic polyneuropathy E10.[address] [address] 05/24/2025 Marychuy Black Type 1 diabetes mellitus with diabetic polyneuropathy E10.42 ; Cellulitis of right toe L03.031 ; Tinea unguium B35.1 and Cutaneous abscess of right foot L02.[address] [address] 06/07/2025 Marychuy Black Type 1 diabetes mellitus with diabetic polyneuropathy E10.42 ; Cellulitis of right toe L03.031 and Skin ulcer of toe of right foot, limited to breakdown of skin L97.[address] [address] 06/18/2025 Marychuy Black Type 1 diabetes mellitus with diabetic polyneuropathy E10.42 and Skin ulcer of toe of right foot, limited to breakdown of skin L97.[address] [address] 07/02/2025 Marychuy Black Type 1 diabetes mellitus with diabetic polyneuropathy E10.42 and Skin ulcer of toe of right foot, limited to breakdown of skin L97.[address] [address] 07/16/2025 Marychuy Black Type 1 diabetes mellitus with diabetic polyneuropathy E10.42 ; Skin ulcer of toe of right foot, limited to breakdown of skin L97.511 ; Other hammer toe(s) (acquired), right foot M20.41 and Other hammer toe(s) (acquired), left foot M20.[address] [address] 08/16/2025 Marychuy Black Type 1 diabetes mellitus with diabetic polyneuropathy E10.42 ; Skin ulcer of toe of right foot, limited to breakdown of skin L97.511 and Tinea unguium B35.[address] [address] 09/20/2025 Marychuy Black Type 1 diabetes mellitus with diabetic polyneuropathy E10.42 and Skin ulcer of toe of right foot, limited to breakdown of skin L97.[address] [address] 11/23/[address] [address] 04/30/2025 Marychuy Black [address] [address] 05/01/2025 [facility] [address] [place] [address] 05/24/2025 Marychuy Black [facility] [place] [address] [place] [address] 05/28/2025 Marychuy Black Cellulitis of right toe L03.031 [facility] [address] [place] [address] 06/01/2025 Marychuy Black Cellulitis of right toe L03.031 [facility] [address] [place] [address] 06/12/2025 Marychuy Black [facility] [place] [address] [facility] [address] [place] [address] 06/18/2025 Marychuy Black Assessments Encounter Date Diagnosis [...] Test Name Order Date Hemoglobin A1c 12/02/2015 06487-PXTZXXR NAIL, 6 OR MORE 08/16/2025 77170-SOSVRZU NAIL, 6 OR MORE 11/23/2024 93725-YZZWATD NAIL, 6 OR MORE 05/24/2025 40468-KIBQTAC NAIL, 6 OR MORE 07/08/2023 27324-ZUYIGHF NAIL, 6 OR MORE 10/21/2023 72743-TPTVIBU NAIL, 6 OR MORE 05/11/2024 51272-PEPREKK NAIL, 6 OR MORE 03/15/2025 10305-BWQVGQP NAIL, 6 OR MORE 12/02/2020 15920-VGHRCBT NAIL, 6 OR MORE 03/13/2021 99696-FHWSDKD NAIL, 6 OR MORE 06/09/2021 19822-SPTSNGJ NAIL, 6 OR MORE 09/08/2021 56207-CXZFFAE NAIL, 6 OR MORE 01/30/2022 93739-VCOPMPE NAIL, 6 OR MORE 06/22/2022 14174-GVJRVGK NAIL, 6 OR MORE 09/28/2022 94495-NYOERFD NAIL, 6 OR MORE 12/28/2022 47451-DJSOTPL NAIL, 6 OR MORE 04/05/2023 25869-REWHSNJ NAIL, 6 OR MORE 10/01/2011 75182-UEJVKBP NAIL, 6 OR MORE 12/03/2011 11234-JSGJSBU NAIL, 6 OR MORE 03/03/2012 58157-ZDMGMYM NAIL, 6 OR MORE 06/02/2012 32658-VNROQVP NAIL, 6 OR MORE 11/03/2012 09714-WCDROBA NAIL, 6 OR MORE 01/23/2013 41226-QKVPKAH NAIL, 6 OR MORE 04/03/2013 67583-IXKTFZG NAIL, 6 OR MORE 06/28/2013 95221-OEHSUKG NAIL, 6 OR MORE 09/13/2013 24946-TBTDIAM NAIL, 6 OR MORE 12/13/2013 75159-REUDMPI NAIL, 6 OR MORE 03/22/2014 28348-EPZBLJA NAIL, 6 OR MORE 06/21/2014 39268-CTOKVTZ NAIL, 6 OR MORE 09/20/2014 03133-FDKQVIG NAIL, 6 OR MORE 12/06/2014 33824-FMTVQDJ NAIL, 6 OR MORE 02/21/2015 33047-IAFHDHO NAIL, 6 OR MORE 05/13/2015 05113-AQXBNTA NAIL, 6 OR MORE 09/09/2015 13273-AAPKYJK NAIL, 6 OR MORE 12/02/2015 27597-XXVJITP NAIL, 6 OR MORE 02/24/2016 61294-DJZBPYR NAIL, 6 OR MORE 06/01/2016 30750-JQKWZUB NAIL, 6 OR MORE 08/27/2016 77826-QHXRBML NAIL, 6 OR MORE 12/07/2016 10734-TQRGTYX NAIL, 6 OR MORE 03/11/2017 18701-CWKYZND NAIL, 6 OR MORE 06/24/2017 61534-YFJHBJP NAIL, 6 OR MORE 09/27/2017 38722-DXDBLVV NAIL, 6 OR MORE 12/27/2017 07489-GLTYWYH NAIL, 6 OR MORE 06/02/2018 61825-TFMTXBZ NAIL, 6 OR MORE 08/25/2018 05611-DDFILOD NAIL, 6 OR MORE 11/24/2018 47486-OLHHEAZ NAIL, 6 OR MORE 03/09/2019 77354-ZGDSAQN NAIL, 6 OR MORE 06/05/2019 25406-OBTMGKX NAIL, 6 OR MORE 09/18/2019 60439-ADDEGRV NAIL, 6 OR MORE 03/11/2020 16730-OFTAOMV NAIL, 6 OR MORE 06/13/2020 83958-IETKADX NAIL, 6 OR MORE 09/23/2020 78706-FFWPLTH NAIL, 1-5 08/17/2024 00056-UGDAWUP NAIL, 1-5 01/20/2024 54877-Tknw Destruction, -14 09/08/2021 71786-Bwes Destruction, -14 06/09/2021 33720-Ezxb Destruction, -14 03/11/2020 11910-Stcy Destruction, -14 06/05/2019 02727-Zbbi Destruction, -14 09/18/2019 89700-Mlkw Destruction, -14 03/09/2019 09550-Knju Destruction, -14 05/13/2015 84597-Xnhv Destruction, 10-2402/21/2015 56102-Gtuw Destruction, 10-2412/06/2014 39642-Ejvu Destruction, 10-2409/20/2014 76802-Rvrq Destruction, 10-2406/21/2014 19698-Dkrh Destruction, 10-2403/22/2014 05746-Xynl Destruction, 10-2412/13/2013 77059-Qtze Destruction, 10-2409/13/2013 85011-Grrm Destruction, 10-2406/28/2013 61628-Gcwh Destruction, 10-2404/03/2013 55859-Avlz Destruction, 10-2401/23/2013 69989-Fodj Destruction, 10-2411/03/2012 83037-Vecw Destruction, 10-2406/02/2012 10966-Rhjz Destruction, 10-2410/01/2011 62914-Hdhm Destruction, 10-2403/03/2012 08128-Qbyx Destruction, 10-2412/03/2011 67942-Bfjtgmcs Plate 03/03/2012 24965-Bwrrcfqo Plate 12/03/2011 79824-Hlevdrtc Plate 06/02/2012 33144-Tqhuvusm Plate 01/23/2013 29174-Pqeaqtau Plate 04/03/2013 96382-Ocvmaroj Plate 06/28/2013 30430-Qyyhnpky Plate 09/13/2013 54110-Wstjbhkf Plate 12/13/2013 19249-Pcaqcjvg Plate 03/22/2014 92649-Lvvqzoea Plate 06/21/2014 93896-Ktculnjo Plate 09/20/2014 87885-Ndeietmd Plate 12/06/2014 85884-Rlfshgtl Plate 02/21/2015 65211-Qielskbt Plate 05/13/2015 94849-Eqlwxfeu Plate 12/27/2017 53001-Igcirfwj Plate 06/05/2019 31571-Lcdskdom Plate 11/24/2018 53409-Cdahwsrw Plate 03/09/2019 13541-Tvuaxxbc Plate 08/25/2018 56168-Eviykdsx Plate 09/18/2019 28919-Ygtmijlc Plate 03/11/2020 91270-Nbvjwmox Plate 09/27/2017 27707-Biofrufp Plate 12/07/2016 66768-Gwcgbkln Plate 08/27/2016 41209-Qgjxgiam Plate 06/01/2016 31889-Xjgfvlzr Plate 02/24/2016 92778-Kzgjgclu Plate 12/02/2015 50008-Ifcgbqoj Plate 11/03/2012 59156-Urqtlehe Plate 09/09/2015 13744-Hojosdnr Plate 06/09/2021 31462-Yitijspk Plate 06/13/2020 80551-Gpxfatzf Plate 09/08/2021 24962-Hmnobgvi Plate 03/13/2021 90601-Fgucxwoz Plate 09/23/2020 15372-Sacbrgdt Plate 01/30/2022 14951-Nzhitjzr Plate 06/22/2022 38330-Lhyiriyq Plate 01/20/2024 23211-Clswyuuy Plate 08/17/2024 06105-Zkunudwv Plate Each Additional 09/2022 84035-Yztvdeio Plate Each Additional 04/2024 47486-Phtlpqzt Plate Each Additional 19756-Gtuahjes Plate Each Additional 11607-Frajodba Plate Each Additional 12/2020 62357-Ofhdhzux Plate Each Additional 58822-Mqcpakpf Plate Each Additional 39323-Hmlfoyst Plate Each Additional 36256-Ssjqjbde Plate Each Additional 38196-Adijuaok Plate Each Additional 71329-Iuhndwsp Plate Each Additional 05598-Vofqzynr Plate Each Additional 97436-Qnnoxvtt Plate Each Additional 99220-Bdqoiptt Plate Each Additional 91880-Ajpindns Plate Each Additional 06/2019 26433-Xgohdojg Plate Each Additional 10/2019 37252-Edgvphgh Plate Each Additional 03320-Vdxlkgec Plate Each Additional 07196-Sbzxbtvh Plate Each Additional 79124-Qjnqkmld Plate Each Additional 12/2014 89854-Fsqzqfew Plate Each Additional 31011-Qwctgvcc Plate Each Additional 36909-Ncsaxnas Plate Each Additional 08/2014 22026-Uyponsiz Plate Each Additional 08/2014 35294-Qccfbdpg Plate Each Additional 09/2014 59438-Txqbdamm Plate Each Additional 02/2014 24085-Jwlsvpuk Plate Each Additional 01/2013 87668-Vgnolvjb Plate Each Additional 73809-Spdohjuv Plate Each Additional 34683-Spuxzcwh Plate Each Additional 61339-Ylmdbkqs Plate Each Additional 16334-Bkdgdizc Plate Each Additional 87201- Debride <25 sq cm 06/13/2020 64264- Debride <25 sq cm 04/05/2023 90606- Debride <25 sq cm 03/15/2025 35870- Debride <25 sq cm 04/02/2025 73052- Debride <25 sq cm 04/30/2025 34681- Debride <25 sq cm 06/07/2025 54962- Debride <25 sq cm 06/18/2025 35711- Debride <25 sq cm 07/02/2025 08622- Debride <25 sq cm 07/16/2025 92347- Debride <25 sq cm 08/16/2025 90381- Debride <25 sq cm 09/20/2025 25061 I&D ABSCESS- SIMPLE,SINGLE 025 58255 I&D ABSCESS- SIMPLE,SINGLE 013 98194 I&D ABSCESS- SIMPLE,SINGLE 013 38776-TSJB SKIN LESIONS, OVER 4 01/24/20 13 12826-XJHU SKIN LESIONS, OVER 4 11/03/19 13 53699-PTBW SKIN LESIONS, OVER 4 04/03/20 13 46992-QZPU SKIN LESIONS, OVER 4 06/28/20 13 00716-INOK SKIN LESIONS, OVER 4 09/13/20 13 51305-TXHU SKIN LESIONS, OVER 4 12/14/19 14 30577-DKAL SKIN LESIONS, OVER 4 03/22/20 14 61309-HFOH SKIN LESIONS, OVER 4 06/21/20 14 09803-ICTN SKIN LESIONS, OVER 4 09/20/20 14 79092-TKIB SKIN LESIONS, OVER 4 12/06/19 15 67826-MGYQ SKIN LESIONS, OVER 4 02/22/20 15 36748-FPZK SKIN LESIONS, OVER 4 05/13/20 15 91390-UDSA SKIN LESIONS, OVER 4 06/13/20 20 96645-KKZU SKIN LESIONS, OVER 4 09/23/20 20 90798-EPAC SKIN LESIONS, OVER 4 03/11/20 20 17916-WAMZ SKIN LESIONS, OVER 4 09/18/20 19 03243-CLZO SKIN LESIONS, OVER 4 03/09/20 19 54864-OCHC SKIN LESIONS, OVER 4 06/05/20 19 65181-TUQS SKIN LESIONS, OVER 4 11/24/19 19 08338-YGYH SKIN LESIONS, OVER 4 08/25/20 18 55845-SGOP SKIN LESIONS, OVER 4 12/28/19 18 80734-VVFT SKIN LESIONS, OVER 4 06/02/20 18 09152-HSSG SKIN LESIONS, OVER 4 09/27/20 17 21391-NMGH SKIN LESIONS, OVER 4 06/24/20 17 50457-DSSX SKIN LESIONS, OVER 4 12/07/19 17 72927-ZCKK SKIN LESIONS, OVER 4 03/11/20 17 80704-TRYY SKIN LESIONS, OVER 4 08/27/20 16 06512-GQKK SKIN LESIONS, OVER 4 06/01/20 16 32196-NUYR SKIN LESIONS, OVER 4 02/24/20 16 31666-NYGO SKIN LESIONS, OVER 4 12/02/19 16 09205-GSXU SKIN LESIONS, OVER 4 09/09/20 15 81688-EZSO SKIN LESIONS, OVER 4 03/15/20 25 55468-GUBG SKIN LESIONS, OVER 4 08/16/20 25 17409-KRDS SKIN LESIONS, OVER 4 05/24/20 25 09999-VRGJ SKIN LESIONS, OVER 4 08/17/20 24 05440-CTGV SKIN LESIONS, OVER 4 11/23/19 25 63221-CVIZ SKIN LESIONS, OVER 4 05/11/20 24 54341-UYFM SKIN LESIONS, OVER 4 01/20/20 24 90114-IXUD SKIN LESIONS, OVER 4 10/21/19 24 48929-HXWC SKIN LESIONS, OVER 4 04/05/20 23 41979-QIQF SKIN LESIONS, OVER 4 07/08/20 23 29134-BHQU SKIN LESIONS, OVER 4 12/29/19 23 30014-UTDI SKIN LESIONS, OVER 4 09/28/20 80331-YQUL SKIN LESIONS, OVER 4 06/22/20 07142-JBML SKIN LESIONS, OVER 4 01/31/20 29513-GUFT SKIN LESIONS, OVER 4 09/08/20 21 79355-FUWK SKIN LESIONS, OVER 4 06/09/20 21 67263-DZCR SKIN LESIONS, OVER 4 12/02/19 21 15960-WSBR SKIN LESIONS, OVER 4 03/13/20 21 82203-MQNE SKIN LESIONS, 2 TO 4 06/02/20 12 19669-ZJHJ SKIN LESIONS, 2 TO 4 03/03/20 12 95450-XFYJ SKIN LESIONS, 2 TO 4 12/03/19 12 96619-XAED SKIN LESIONS, 2 TO 4 10/01/20 11 Next Appt Details Provider Name:Marychuy Kelley , 11/22/2025 01:45:00 PM, [address] [place], [address], Insurance Providers Payer Name Payer Address Payer Phone Subscriber Number Group Number Insured Name Patient Relationship to Insured Coverage Start Date Coverage End Date [facility] [id number] [place] [address] [phone] [id number] Casey Ulrich Self - patient is the [...] arteries 07/05 [facility] - chest pains 02/02 [facility]- Possible Heart Attack/Stress Anxiet y/Covid 07/31 [facility]- Bladder [facility] Scan [facility]- chest pain 10/31 [facility]- Pressure wound right ankle - saw levar bonilla [facility]- chest pain 10/2015
--- OUTSIDE RECORDS SUMMARY | 2025-10-08 16:13 | XMS_ITS | Clinical Summary ---
Author Organization [facility], Address [address] [place] [address] [place] [address] Phone Care Team Providers Care Spectral Scientist Name Role Phone Stuart Will NP Primary Care Provider [phone] Allergies Active Allergy Reactions Criticality Noted Date [...] patient's age to complete this topic Insurance [place] [id number] Care Teams Spectral Scientist Relationship Specialty Start Date End Date Stuart Will NP [address] [place] [address] PCP - General Nurse Practitioner 12/06/20
--- OUTSIDE RECORDS SUMMARY | 2025-10-08 16:13 | XMS_ITS | Clinical Summary ---
Author Organization [facility] Address [address] [place] [address] Phone Care Team Providers Care Carbon Sequestration Plant Manager Name Role Phone Stuart Will NP Primary Care Provider [phone] Allergies Active Allergy Reactions Criticality Noted Date [...] (one) time each day. Active levocarnitine HCl (MQVORG-B-ZYYZC PRIMITIVO MISC) 500 mg. Active dihydroberberin e [...] (07/11/2025): - Seen multiple times in the [facility] ER for breathlessness without rising cardiac markers -CT chest at [facility] showed severe coronary [...] Type Department Care Team Description 08/23/2025 Telephone [facility] [address] [place] [address] Stuart Hernandez MD 07/11/2025 2:10 PM EDT Office Visit [facility] [address] [place] [address] Gabriela Ang NP SOB (shortness of breath) (Primary Dx); Pure hypercholesterolemia from Last 3 Months Surgical History Surgery Date Site/Laterality Comments CARDIAC C[place] DONE [place] 06/13/2025 [place] [facility] [place] IDICATIONS: Chest pain. Medical History Medical History Date Comments BPH (benign prostatic hyperplasia) Urethral stricture Necrosis of right ureter Vitamin D deficiency Osteoarthritis Colon cancer ([facility]/HCC V24, CMS/HCC V28) CKD (chronic kidney [...] Insurance MEDICARE [facility] Care Teams Carbon Sequestration Plant Manager Relationship Specialty Start Date End Date Stuart Will NP [address] [place] [address] PCP - General Family Medicine 05/28/25
== END 2025-10-08 13:56 | disposition home or self-care (01) ==
LOC: HO.HMGCLDS 13:55
PROVIDERS: PCP Nurse Practitioner Family; Visit Provider Nurse Practitioner Family
DX: Z12.5 Encounter for screening for malignant neoplasm of prostate (principal)
CPT/HCPCS: 36415; 84153